=== PATIENT | male | born 1945 | race African-American/Black ===

== ENCOUNTER 2017-07-26 08:41 | Day surgery (SDC) | payer BC ==
[2017-07-25 14:42] VITALS: BMI 30.8
[2017-07-26 09:21] LABS: INR 1.18 (0.82-1.09); PROTHROMBIN TIME (PATIENT) 13.3 SEC (9.7-13.0)
[2017-07-26] MEDS ORDERED: LIDOCAINE HCL 1%, 10 MG/ML (20ML VIAL) PNB ONE (12:59)
--- NOTE | 2017-07-26 13:21 | OP ---
Operative Note - Note: Operative Date: 07/26/17 Pre-Operative Diagnosis: Steal syndrome right arm Operation: Ligation distal right radial artery Findings: Patent radial artery, reversed flow on Duplex Post-Operative Diagnosis: Same as Pre-op Surgeon: Olvin Cope Anesthesia: Local Estimated Blood Loss (mls): 10
--- NOTE | 2017-07-26 13:28 | HP ---
Satellite H - Chief Complaint Chief Complaint: Pain right fingers History of Present Illness: 72 year old man with ESRD on HD and a right radial- cephalic fistula has developed pain and numbnesds in fingers of the right hand. Duplex scan shows reversed flow in the distal radial artery with steal from the hand. History Source: Patient Limitations to Obtaining History: No Limitations - Past Medical History Allergies/Adverse Reactions: Allergies Allergy/AdvReac Type Severity Reaction Status Date / Time No Known Drug Allergies Allergy Verified 10/10/14 06:59 Cardiovascular: Yes: AFIB Renal/: Yes: Renal Failure, Hemodialysis Endocrine: Yes: Diabetes Mellitus - Current Medications Current Medications: Home Medications Medication Instructions Recorded Carvedilol 12.5 mg PO TID 12/10/13 Folic Acid/Mv,Fe,Min [Centrum 1 each PO DAILY 12/10/13 Multivitamin Tab Chew] Furosemide [Lasix -] 80 mg PO BID 12/10/13 Glucosamine Sulfate Dipot Chlr 1,000 mg PO DAILY 12/10/13 [Glucosamine] Isosorbide Dinitrate [Isordil -] 20 mg PO BID 12/10/13 Levothyroxine [Synthroid -] 75 mcg PO DAILY 12/10/13 Linagliptin [Tradjenta] 5 mg PO DAILY 12/10/13 Sennosides/Docusate Sodium [Stool 1 each PO DAILY 12/10/13 Softener Tablet] Valsartan [Diovan] 40 mg PO DAILY 12/10/13 Vitamin B Complex 1 each PO DAILY 12/10/13 Warfarin Sodium 5 mg PO HS 12/10/13 Satellite Physical Exam - Physical Examination Vital Signs: Vital Signs Period Temp Pulse Resp BP Sys/Yoon Pulse Ox Last 24 Hr 98.2 F-98.2 F 65-65 18-18 83-83/51-51 100 General Appearance: Well Nourished, Alert & Oriented x3 ENT: Clear Lung: Clear to auscultation Heart: Other (Irreg) Abdomen: Soft Extremities: No edema, Other (Right fingers cool and darkened.) Neurological: Intact Satellite Impression/Plan - Impression/Plan Impression: Vascular steal syndrome right hand. Operative Procedure: Ligation of right radial artery distal to AV fistula Date to be Performed: 07/26/17
--- NOTE | 2017-07-26 14:06 | OP ---
DATE OF OPERATION: 07/26/2017 SURGEON: Olvin Solares M.D. PROCEDURE: Ligation of distal right radial artery. PREOPERATIVE DIAGNOSIS: Vascular steal syndrome, right arm. POSTOPERATIVE DIAGNOSIS: Vascular steal syndrome, right arm. ANESTHESIA: Local. OPERATIVE FINDINGS: Patient has evidence of arterial steal from his AV fistula in the right arm with reverse flow in the distal radial artery. Ulnar artery was patent and was supplying blood to the right hand. OPERATIVE PROCEDURE: Following routine patient identification, side and site verification, the right arm and wrist were prepped with ChloraPrep. Lidocaine 1% was infiltrated over the distal radial artery between the hand and the AV fistula. A transverse incision was made and carried down the subcutaneous tissues using cautery for hemostasis. The radial artery was identified and carefully mobilized from the surrounding tissues. It was doubly ligated with 2-0 silk ties. The wound was then closed with interrupted suture of 3-0 Vicryl and running subcuticular suture of 4-0 Biosyn. A sterile dressing was applied and the patient was taken to ICU in stable condition. OLVIN SOLARES M.D. 1 [id number]
[2017-07-26 14:12] VITALS: BP 114/55; PULSE 67; TEMP 98.7
== END 2017-07-26 14:13 | disposition home or self-care (01) ==
LOC: JASU-SURG 08:41
PROVIDERS: ATTEND Surgery
PROC: 03LB0ZZ Occlusion of Right Radial Artery, Open Approach (ICD-10-PCS; principal; 2017-07-26 12:00)
DX: T82.898A Other specified complication of vascular prosthetic devices, implants and grafts, initial encounter (principal); N18.6 End stage renal disease; Z99.2 Dependence on renal dialysis
CPT/HCPCS: 36415; 85610

== ENCOUNTER 2017-08-10 12:26 | Inpatient (IN) | payer BC, OTHER ==
[2017-08-10] MEDS ORDERED: SODIUM CHLORIDE 500 ML IV ONE (12:55)
[2017-08-10] MEDS ORDERED: VANCOMYCIN 1,000 MG in DEXTROSE 5%-WATER - 250 ML IVPB ONE (12:56)
[2017-08-10] MEDS ORDERED: PIPERACILLIN/TAZOB 3.375 GM 3.375 GM in DEXTROSE 5%-WATER - 50 ML IVPB ONE (12:56)
--- NOTE | 2017-08-10 13:20 | PDOC ---
History of Present Illness - General History Source: Patient Exam Limitations: No Limitations - History of Present Illness Initial Comments: 08/10/17 14:17 The patient is a 72-year-old male with past medical history of CHF s/p L. chest wall pacemaker/AICD, DM w. neuropathy, HTN, PE, ESRD on HD w/ R. upper extremity fistula, [place], Colon CA and Afib presents to the emergency department from dialysis with low blood pressure. The patient presents from dialysis with a blood pressure of 74/41 accompanied with episodes of lightheadedness, nausea and nonbloody, nonbilious emesis. The patient reports secondary to the symptoms he was unable to complete his dialysis, states only the goal was 3 thousand and only 2.2 was taken. The patient reports associated concerned of R. toe abscess noticed yesterday states an increase in size since yesterday. The patient states a radiating throbbing pain that travels up to the knees, without drainage or bleeding. The patient reports multiple episodes of emesis since 3:30 am today, accompanied with increased chills and weakness. The patient states he required a heated chair and blankets during dialysis secondary to increased chills, relief noted with Tylenol. The patient reports a baseline of not producing much urination. Denies diaphoresis. Denies chest pain or palpitations. Denies diarrhea or constipation. Denies dysuria, hematuria , frequency or urgency to urinate. Denies abdominal or back pain. Allergies: NKDA Surgical history: Colon CA RX w/ chemo. AICD, Pacemaker, R. upper extremity AV fistula, and L. leg angioplasty (placed by Dr. Cope). Social history: Reports a history of cigarettes and alcohol use. Denies the use of recreational drugs. PCP/Nephrology: Shreyas Trevizo MD <Noemi Frankel - Last Filed: 08/10/17 14:23> <Mike Davila - Last Filed: 08/10/17 15:00> - General Chief Complaint: Blood Pressure Problem Stated Complaint: Blood Pressure Problem Time Seen by Provider: 08/10/17 12:38 Past History <Noemi Frankel - Last Filed: 08/10/17 14:23> - Past Medical History Anemia: No Asthma: Yes (HX SOB USES INHALER) Cancer: Yes (COLON CA) Cardiac Disorders: Yes ([place]) COPD: No (?) CHF: Yes Diabetes: Yes HTN: Yes Hypercholesterolemia: Yes Thyroid Disease: Yes (on dialysis ) - Surgical History Abdominal Surgery: Yes (SURGERY FOR COLON CA RX WITH CHEMO) - Immunization History Immunization Up to Date: Yes - Suicide/Smoking/Psychosocial Hx Smoking History: Never smoked Have you smoked in the past 12 months: No If you are a former smoker, when did you quit?: 1981 Information on smoking cessation initiated: No Hx Alcohol Use: No (quit 1981) Drug/Substance Use Hx: No (quit 1981) Substance Use Type: None Hx Substance Use Treatment: No <Mike Davila - Last Filed: 08/10/17 15:00> - Past Medical History Allergies/Adverse Reactions: Allergies Allergy/AdvReac Type Severity Reaction Status Date / Time No Known Drug Allergies Allergy Verified 08/10/17 13:01 Home Medications: Ambulatory Orders Carvedilol 12.5 mg PO TID 12/10/13 Folic Acid/Mv,Fe,Min [Centrum Multivitamin Tab Chew] 1 each PO DAILY 12/10/13 Furosemide [Lasix -] 80 mg PO BID 12/10/13 Glucosamine Sulfate Dipot Chlr [Glucosamine] 1,000 mg PO DAILY 12/10/13 Isosorbide Dinitrate [Isordil -] 20 mg PO BID 12/10/13 Levothyroxine [Synthroid -] 75 mcg PO DAILY 12/10/13 Linagliptin [Tradjenta] 5 mg PO DAILY 12/10/13 Sennosides/Docusate Sodium [Stool Softener Tablet] 1 each PO DAILY 12/10/13 Valsartan [Diovan] 40 mg PO DAILY 12/10/13 Vitamin B Complex 1 each PO DAILY 12/10/13 Warfarin Sodium 5 mg PO HS 12/10/13 Review of Systems - Review of Systems Constitutional: Yes: Chills, Fever Respiratory: No: Cough, Shortness of Breath Cardiac (ROS): Yes: Edema, Lightheadedness. No: Chest Pain, Syncope ABD/GI: Yes: Nausea, Vomiting. No: Constipated, Diarrhea Integumentary: Yes: See HPI Neurological: No: Headache All Other Systems: Reviewed and Negative <Mike Davila - Last Filed: 08/10/17 15:00> *Physical Exam - Vital Signs Last Vital Signs Temp Pulse Resp BP Pulse Ox 100.8 F H 65 16 117/107 98 08/10/17 13:43 08/10/17 13:43 08/10/17 13:43 08/10/17 13:43 08/10/17 13:43 - Physical Exam Comments: 08/10/17 13:55 GENERAL: The patient is awake, alert, and fully oriented, in no acute distress. HEAD: Normal with no signs of trauma. EYES: Pupils equal, round and reactive to light, extraocular movements intact, sclera anicteric, conjunctiva clear with no pallor. ENT: Ears normal, nares patent, oropharynx clear without exudates. Moist mucous membranes. NECK: Normal range of motion, supple without lymphadenopathy, JVD, or masses. LUNGS: Breath sounds equal, clear to auscultation bilaterally. No wheeze/ crackles. HEART: (+) L. chest wall pacemaker. Regular rate and rhythm, normal S1 and S2 without murmur or rub. ABDOMEN: Soft/nontender/nondistended. BS wnl. No guarding or rebound. No palpable masses. No hepatosplenomegaly. EXTREMITIES: (+) 1+ edema L. lower extremity.Scanned DP pulse and well perfused. 3 mm open wound R. 5th digits surrounding the soft swollen tissue, tender to palpate. No discharge or bleeding. R. lower extremity: Warm, well perfused. No crepitus. No tender along the sole of the foot. RLE 1 increased in size compared to the LLE. Warm tender to the knee. R. Upper extremity AV fistula with palpable thrill. Normal range of motion, no edema. No clubbing or cyanosis. No cords. NEUROLOGICAL: Cranial nerves II through XII grossly intact. Normal speech, normal gait. PSYCH: Normal mood, normal affect. SKIN: Warm, Dry, normal turgor, no rashes or lesions noted. <Noemi Frankel - Last Filed: 08/10/17 14:23> - Vital Signs Last Vital Signs Temp Pulse Resp BP Pulse Ox 98.0 F 64 16 96/62 96 08/10/17 13:03 08/10/17 13:03 08/10/17 13:03 08/10/17 13:03 08/10/17 13:03 <Mike Davila - Last Filed: 08/10/17 15:00> Heart Score/ECG Review #1 ECG reviewed & interpreted by me at: 12:38 08/10/17 13:15 v-paced at 67 with occasional PVC, no secondary sign of acute ischemic change #2 ECG reviewed & interpreted by me at: 13:19 08/10/17 13:23 v-paced at 66 with occasional PVC. <Mike Davila - Last Filed: 08/10/17 15:00> ED Treatment Course - LABORATORY CBC & Chemistry Diagram: 08/10/17 13:17 08/10/17 13:17 - ADDITIONAL ORDERS Additional order review: Laboratory Results 08/10/17 13:17 VBG pH 7.41 POC VBG pCO2 44.8 POC VBG pO2 32.9 Mixed VBG HCO3 27.8 H - Medications Given in the ED: ED Medications Discontinued Medications Generic Name Dose Route Start Last Admin Trade Name Freq PRN Reason Stop Dose Admin Acetaminophen 1,000 mg 08/10/17 13:35 08/10/17 13:41 Ofirmev Injection - IVPB 08/10/17 13:36 1,000 mg ONCE ONE Administration Sodium Chloride 500 mls @ 1,000 mls/hr 08/10/17 12:55 08/10/17 13:41 Normal Saline - IV 08/10/17 13:24 Not Given ONCE ONE Piperacillin Sod/Tazobactam 50 mls @ 100 mls/hr 08/10/17 12:56 08/10/17 13:41 Sod 3.375 gm/ Dextrose IVPB 08/10/17 13:25 100 mls/hr ONCE ONE Administration Protocol <Noemi Frankel - Last Filed: 08/10/17 14:23> - LABORATORY CBC & Chemistry Diagram: 08/10/17 13:17 08/10/17 13:17 - RADIOLOGY Radiology Studies Ordered: Category Date Time Status CHEST - PA [RAD] Stat Radiology 08/10/17 12:56 Ordered FOOT-RIGHT [RAD] Stat Radiology 08/10/17 12:56 Ordered DUPLEX VASCUL US-1 LEG [US] Stat Ultrasound 08/10/17 12:56 Ordered <Mike Davila - Last Filed: 08/10/17 15:00> Medical Decision Making - Medical Decision Making 08/10/17 13:15 A portion of this note was documented by scribe services under my direction. I have reviewed the details of the note, within reason, and agree with the documentation with the following case summary and management plan written by me. 72-year-old male end-stage renal disease on dialysis with peripheral vascular disease presents from dialysis with hypotension. 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 Yesterday , patient felt generally weak throughout the day and was sent home from work, during the night had episodes of nausea/vomiting and awoke this morning not feeling well. He went to dialysis experiencing chills and subjective fevers, he was two [address]irds of the way through dialysis when he became lightheaded and his blood pressure was noted to be 70 systolic so he was referred to the emergency department. Currently feeling a little better regarding the lightheadedness, denies any chest pain or other focal infectious symptoms. Blood pressure 85 systolic, heart rate regular. Afebrile. Heart and lungs are clear, abdomen benign Right lower extremity with open wound to the fifth digit with surrounding tenderness and soft tissue swelling, foot is otherwise warm and there is swelling to the knee with tenderness and erythema. 72-year-old male end-stage renal disease on dialysis with infected right lower extremity and foot wound. Chills concerning for bacteremia. sepsis protocol initiated iv fluid 500cc bolus iv abx R foot xray, RLE doppler admit 08/10/17 14:26 wbc 10, lactate 1.7, baseline Cr. bedside sono shows no evidence of DVT, + popliteal and distal arterial flow with notably very calcified vessels. Chem wnl (post HD), lactate negative. Awaiting xray, received abx. 08/10/17 14:58 Accepted for inpatient med/surg by Dr. Coffey, signout given to JOSE Vazquez. <Mike Davila - Last Filed: 08/10/17 15:00> *DC/Admit/Observation/Transfer <Noemi Frankel - Last Filed: 08/10/17 14:23> - Discharge Dispostion Decision to Admit order: Yes <Mike Davila - Last Filed: 08/10/17 15:00> Diagnosis at time of Disposition: Cellulitis of right lower extremity Open wound of foot Qualifiers: Encounter type: initial encounter Laterality: right Qualified Code(s): S91.301A - Unspecified open wound, right foot, initial encounter - Discharge Dispostion Condition at time of disposition: Fair
[2017-08-10] MEDS ORDERED: PIPERACILLIN/TAZOB 3.375 GM 3.375 GM/50 ML BAG IVPB ONE (13:29)
[2017-08-10] MEDS ORDERED: VANCOMYCIN 1 GRAM (PRE-DOCKED) 1,000 MG/250 ML BAG IVPB ONE (13:30)
[2017-08-10] MEDS ORDERED: ACETAMINOPHEN INJECTION 100 ML IVPB ONE (13:31)
[2017-08-10] MEDS ORDERED: ACETAMINOPHEN 1000 MG/100 ML VIAL (NON FORMULARY) IVPB ONE (13:35)
[2017-08-10 13:46] LABS: VENOUS PC02 44.8 mmHg (38-52); VENOUS PH 7.41 (7.32-7.42); VENOUS PO2 32.9 mmHg (28-48)
[2017-08-10 13:56] LABS: INR 1.35 (0.82-1.09); PROTHROMBIN TIME (PATIENT) 15.3 SEC (9.7-13.0)
[2017-08-10 13:58] LABS: ACTIVATED PTT 35.3 SECONDS (25.2-36.5)
[2017-08-10 14:07] LABS: ALK PHOS 115 U/L (45-117); ANION GAP 10 (8-16); BILIRUBIN,TOTAL 1.8 mg/dL (0.2-1.0); BLOOD UREA NITROGEN 27 mg/dL (7-18); CALCIUM 8.3 mg/dL (8.5-10.1); CHLORIDE 95 mmol/L (98-107); CO2 28 mmol/L (21-32); CREATININE 6.3 mg/dL (0.7-1.3); GLUCOSE,RANDOM 92 mg/dL (74-106); POTASSIUM 3.5 mmol/L (3.5-5.1); SGOT/AST 36 U/L (15-37); SGPT/ALT 13 U/L (12-78); SODIUM 133 mmol/L (136-145)
[2017-08-10 14:18] LABS: BASO % 0.4 % (0-2.0); EOS % 0.7 % (0-4.5); HEMATOCRIT 40.8 % (35.4-49); MCH 28.8 pg (25.7-33.7); MCHC 31.9 g/dl (32.0-35.9); MEAN CELL VOLUME 90.4 fl (80-96); MEAN PLT VOLUME 9.9 fl (7.5-11.1); MONO % 17.1 % (3.8-10.2); NEUT % 75.8 % (42.8-82.8); PLATELET COUNT 137 K/MM3 (134-434); RBC 4.52 M/mm3 (4.00-5.60); RDW 22.6 % (11.9-15.9); WHITE BLOOD COUNT 10.1 K/mm3 (4.0-10.0)
[2017-08-10] MEDS ORDERED: ONDANSETRON 4 MG/2 ML VIAL IVPUSH ONE (14:27)
[2017-08-10] MEDS ORDERED: ONDANSETRON 4 MG/2 ML VIAL ONE (14:35)
--- NOTE | 2017-08-10 16:19 | EKG ---
Test Reason : Blood Pressure : / mmHG Vent. Rate : 067 BPM Atrial Rate : 073 BPM P-R Int : 000 ms QRS Dur : 154 ms QT Int : 500 ms P-R-T Axes : 000 -60 123 degrees QTc Int : 528 ms Ventricular-paced rhythm WITH OCCASIONAL PREMATURE VENTRICULAR COMPLEXES Biventricular pacemaker detected ABNORMAL ECG NO PREVIOUS ECGS AVAILABLE Confirmed by WERO DU MD ([id number]) on 08/10/2017 4:19:06 PM Referred By: Confirmed By:WERO DU MD
--- NOTE | 2017-08-10 16:44 | HP ---
CHIEF COMPLAINT: right lower ext pain/wound, fever and chills today PCP: Shreyas Trevizo MD HISTORY OF PRESENT ILLNESS: Patient is a 72 year old male with a significant past medical history of congestive heart failure with left chest wlal pace maker/AICD, diabetes mellitus , with neuropathy, hypertension, PE, ESRD on HD (T,Th,Sat) via right upper arm fistula, [place], colon cancer and atrial fibrillation. Patient presents to the ED today from dialysis with a low blood pressure associated with chills during dialysis. His blood pressure dropped to 70s/40s during dialysis with nausea and vomiting. He was unable to finish dialsyis and only 2 liters instead of 3 were taken out. Patient reports a painful right fifth toe abscess that he notieced yesterday and that has increased in size. He attributes this abscess to ill fitting shoes. Patient denies chest pain or shortness of breath but has a non productive cough on exam. Lungs with mild congestion bilaterally. ER course was notable for: (1) vascular doppler, no dvt (2) chest xray - cardiomegaly, left sided PM/ICD (3) EKG vent paced with PVCs, biventricular pm (4) WBC 10.1 (5) Creat 6.3 (6) foot xray pending (7) INR 1.35 (8) wbc 10.1 Recent Travel: PAST MEDICAL HISTORY Colon CA RX w/ chemo. AICD, Pacemaker, R. upper extremity AV fistula, and L. leg angioplasty (placed by Dr. Cope). PAST SURGICAL HISTORY: Social History: Smoking: yes, hx Alcohol: denies Drugs: denies Family History: Allergies No Known Drug Allergies Allergy (Verified 08/10/17 13:01) HOME MEDICATIONS: Home Medications Medication Instructions Recorded Carvedilol 12.5 mg PO TID 12/10/13 Folic Acid/Mv,Fe,Min [Centrum 1 each PO DAILY 12/10/13 Multivitamin Tab Chew] Furosemide [Lasix -] 80 mg PO BID 12/10/13 Glucosamine Sulfate Dipot Chlr 1,000 mg PO DAILY 12/10/13 [Glucosamine] Isosorbide Dinitrate [Isordil -] 20 mg PO BID 12/10/13 Levothyroxine [Synthroid -] 75 mcg PO DAILY 12/10/13 Linagliptin [Tradjenta] 5 mg PO DAILY 12/10/13 Sennosides/Docusate Sodium [Stool 1 each PO DAILY 12/10/13 Softener Tablet] Valsartan [Diovan] 40 mg PO DAILY 12/10/13 Vitamin B Complex 1 each PO DAILY 12/10/13 Warfarin Sodium 5 mg PO HS 12/10/13 PHYSICAL EXAMINATION Vital Signs - 24 hr 08/10/17 08/10/17 08/10/17 12:30 13:03 13:43 Temperature 97.8 F 98.0 F 100.8 F H Pulse Rate 72 65 Pulse Rate [ 64 65 Left Apical] Respiratory 18 16 16 Rate Blood Pressure 94/64 117/107 Blood Pressure 96/62 117/107 [Left Arm] O2 Sat by Pulse 96 96 98 Oximetry (%) 08/10/17 08/10/17 14:41 16:28 Temperature 98.6 F Pulse Rate Pulse Rate [ 68 66 Left Apical] Respiratory 16 16 Rate Blood Pressure Blood Pressure 90/57 85/49 [Left Arm] O2 Sat by Pulse 98 98 Oximetry (%) GENERAL: Awake, alert, and fully oriented, in no acute distress. HEAD: Normal with no signs of trauma. EYES: Pupils equal, round and reactive to light, extraocular movements intact, sclera anicteric, conjunctiva clear. No lid lag. EARS, NOSE, THROAT: Ears normal, nares patent, oropharynx clear without exudates. Moist mucous membranes. NECK: Normal range of motion, supple without lymphadenopathy, JVD, or masses. LUNGS: Breath sounds equal, clear to auscultation bilaterally. No wheezes, and no crackles. No accessory muscle use. HEART: Regular rate and rhythm, normal S1 and S2 without murmur, rub or gallop. ABDOMEN: Soft, nontender, not distended, normoactive bowel sounds, no guarding, no rebound, no masses. No hepatomegaly or splenomegaly. MUSCULOSKELETAL: Normal range of motion at all joints. No bony deformities or tenderness. No CVA tenderness. UPPER EXTREMITIES: JED fistula with bruit and thrill LOWER EXTREMITIES: RLL with edema, from nair to foot. Negative for DVT NEUROLOGICAL: Normal speech. PSYCHIATRIC: Cooperative. Good eye contact. Appropriate mood and affect. Laboratory Results - last 24 hr 08/10/17 08/10/17 08/10/17 13:17 13:17 13:17 WBC 10.1 H RBC 4.52 Hgb 13.0 Hct 40.8 MCV 90.4 MCH 28.8 MCHC 31.9 L RDW 22.6 H Plt Count 137 MPV 9.9 Absolute Neuts (auto) 7.7 Neutrophils % 75.8 Lymphocytes % 6.0 L Monocytes % 17.1 H Eosinophils % 0.7 Basophils % 0.4 Nucleated RBC % 0 PT with INR 15.30 H INR 1.35 H PTT (Actin FS) 35.3 VBG pH 7.41 POC VBG pCO2 44.8 POC VBG pO2 32.9 Mixed VBG HCO3 27.8 H Sodium Potassium Chloride Carbon Dioxide Anion Gap BUN Creatinine Creat Clearance w eGFR Random Glucose Lactic Acid Calcium Total Bilirubin AST ALT Alkaline Phosphatase Troponin I Total Protein Albumin 08/10/17 08/10/17 13:17 13:30 WBC RBC Hgb Hct MCV MCH MCHC RDW Plt Count MPV Absolute Neuts (auto) Neutrophils % Lymphocytes % Monocytes % Eosinophils % Basophils % Nucleated RBC % PT with INR INR PTT (Actin FS) VBG pH POC VBG pCO2 POC VBG pO2 Mixed VBG HCO3 Sodium 133 L Potassium 3.5 Chloride 95 L Carbon Dioxide 28 Anion Gap 10 BUN 27 H Creatinine 6.3 H Creat Clearance w eGFR 8.81 Random Glucose 92 Lactic Acid 1.7 Calcium 8.3 L Total Bilirubin 1.8 H AST 36 ALT 13 Alkaline Phosphatase 115 Troponin I 0.04 Total Protein 8.0 Albumin 3.0 L ASSESSMENT/PLAN: Patient is a 72 year old male with a significant past medical history of congestive heart failure with left chest wall pace maker/AICD, diabetes mellitus , with neuropathy, hypertension, PE, ESRD on HD (T,Th,Sat) via right upper arm fistula, [place], colon cancer and atrial fibrillation. Patient presents to the ED today from dialysis with a low blood pressure associated with chills during dialysis. His blood pressure dropped to 70s/40s during dialysis with nausea and vomiting. He was unable to finish dialsyis and only 2 liters instead of 3 were taken out. Patient reports a painful right fifth toe abscess that he notieced yesterday and that has increased in size. He attributes this abscess to ill fitting shoes. Patient denies chest pain or shortness of breath but has a non productive cough on exam. Lungs with mild congestion bilaterally. ID: Sepsis likely secondary to right toe cellulitis vs pulmonary source Blood and urine cultures sent/pending No chest pain, not short of breath, + coughing Duonebs Started on Zosyn CHF Pacemaker/AICD Hypertension Afib Hypotensive on admission, hold cardiac meds Heparin drip for subtherapetic inr. initiate heparin drip with bridge to coumadin. 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, chronic Novolog, diabetic diet Pulm: PE history CT chest ordered, rule out PE with history of same. No chest pain, not tachycardic Echo ordered ESRD T,th,sat schedule Right arm fistula Renal consult Hospitalist Screening - Colonoscopy Questionnaire Colonoscopy Questionnaire: Colonoscopy Questionnaire
[2017-08-10] MEDS ORDERED: HEPARIN NA (PORCINE) 5,000 UNITS/ML 1ML VIAL IVPUSH PRN (17:28)
[2017-08-10] MEDS ORDERED: guaiFENesin/D-M SUGAR-FREE/ACLHOL-FREE 118 ML BOTTLE PO PRN (17:31)
[2017-08-10] MEDS: HEPARIN - 25,000 UNIT in SODIUM CHLORIDE 495 ML IV SCH (17:45)
[2017-08-10] MEDS ORDERED: HEPARIN NA (PORCINE) 5,000 UNITS/ML 1ML VIAL ONE (17:50)
[2017-08-10] MEDS ORDERED: HEPARIN INFUSION - 25,000 UNITS/500 ML INFUS.BAG IVPB ONE (17:50)
[2017-08-10] MEDS: HEPARIN NA (PORCINE) 5,000 UNITS/ML 1ML VIAL IVPUSH PRN (17:57)
--- NOTE | 2017-08-10 18:12 | CON.ID ---
Consult Consult Specialty:: infectious diseases Reason for Consultation:: rt foot infection - History of Present Illness Chief Complaint: rt foot pain,non healing wound History of Present Illness: 72 year old male with a significant past medical history of congestive heart failure with pace maker/AICD, diabetes mellitus, with neuropathy, hypertension , PE, ESRD on HD (T,Th,Sat) via right upper arm fistula, [place], colon cancer and atrial fibrillation. Patient came to the ED today from dialysis with a low blood pressure associated with chills during dialysis. His blood pressure dropped to 70s/40s during dialysis with nausea and vomiting. He was unable to finish dialsyis and only 2 liters instead of 3 were taken out. Patient reports a painful right fifth toe abscess that he noticed yesterday and that has increased in size. He attributes this abscess to ill fitting shoes. om further questioning patient mentions that this has been going on for a long time.currently patient says he feels better - History Source History Provided By: Patient Limitations to Obtaining History: No Limitations - Past Medical History Cardio/Vascular: Yes: AFIB Renal/: Yes: Renal Failure, Hemodialysis Endocrine: Yes: Diabetes Mellitus - Alcohol/Substance Use Hx Alcohol Use: No (quit 1981) - Smoking History Smoking history: Never smoked Have you smoked in the past 12 months: No If you are a former smoker, when did you quit?: 1981 Home Medications - Allergies Allergies/Adverse Reactions: Allergies Allergy/AdvReac Type Severity Reaction Status Date / Time No Known Drug Allergies Allergy Verified 08/10/17 13:01 - Home Medications Home Medications: Ambulatory Orders Carvedilol 12.5 mg PO TID 12/10/13 Folic Acid/Mv,Fe,Min [Centrum Multivitamin Tab Chew] 1 each PO DAILY 12/10/13 Furosemide [Lasix -] 80 mg PO BID 12/10/13 Glucosamine Sulfate Dipot Chlr [Glucosamine] 1,000 mg PO DAILY 12/10/13 Isosorbide Dinitrate [Isordil -] 20 mg PO BID 12/10/13 Levothyroxine [Synthroid -] 75 mcg PO DAILY 12/10/13 Linagliptin [Tradjenta] 5 mg PO DAILY 12/10/13 Sennosides/Docusate Sodium [Stool Softener Tablet] 1 each PO DAILY 12/10/13 Valsartan [Diovan] 40 mg PO DAILY 12/10/13 Vitamin B Complex 1 each PO DAILY 12/10/13 Warfarin Sodium 5 mg PO HS 12/10/13 Losartan Potassium 25 mg PO DAILY 08/11/17 Metoprolol Succinate [Toprol Xl] 12.5 mg PO DAILY 08/11/17 Review of Systems - Review of Systems Constitutional: reports: Chills Eyes: reports: No Symptoms HENT: reports: No Symptoms Neck: reports: No Symptoms Cardiovascular: reports: No Symptoms Respiratory: reports: No Symptoms Gastrointestinal: reports: No Symptoms Genitourinary: reports: No Symptoms Musculoskeletal: reports: Other Integumentary: reports: Erythema, Wound Neurological: reports: No Symptoms Endocrine: reports: No Symptoms Hematology/Lymphatic: reports: No Symptoms Psychiatric: reports: No Symptoms Physical Exam Vital Signs: Vital Signs Temperature 98.4 F 08/10/17 17:43 Pulse Rate 68 08/10/17 17:43 Respiratory Rate 16 08/10/17 17:43 Blood Pressure 90/53 08/10/17 17:43 O2 Sat by Pulse Oximetry (%) 96 08/10/17 17:43 Constitutional: Yes: Calm, Mild Distress Eyes: Yes: Conjunctiva Clear HENT: Yes: Atraumatic Neck: Yes: Supple, Trachea Midline Cardiovascular: Yes: Pulse Irregular Respiratory: Yes: Regular, CTA Bilaterally Gastrointestinal: Yes: Normal Bowel Sounds, Soft Musculoskeletal: Yes: Other Extremities: Yes: Erythema (rt foot), Other Integumentary: Yes: Erythema, Other Wound/Incision: Yes: Open to air, Draining Neurological: Yes: Alert, Oriented Psychiatric: Yes: Alert, Oriented Labs: CBC, BMP 08/10/17 13:17 08/10/17 13:17 Imaging - Results Chest X-ray: Report Reviewed, Image Reviewed X-ray: Report Reviewed, Image Reviewed Assessment/Plan patient coming in a type of sepsis picture i think his invection is coming from the wound itself he has multiple other issues Problem List - Problems (1) Atrial fibrillation Code(s): I48.91 - UNSPECIFIED ATRIAL FIBRILLATION Qualifiers: Atrial fibrillation type: unspecified Qualified Code(s): I48.91 - Unspecified atrial fibrillation (2) Cardiomyopathy Code(s): I42.9 - CARDIOMYOPATHY, UNSPECIFIED Qualifiers: Cardiomyopathy type: unspecified Qualified Code(s): I42.9 - Cardiomyopathy , unspecified (3) Cellulitis of right lower extremity Code(s): L03.115 - CELLULITIS OF RIGHT LOWER LIMB (4) ESRD (end stage renal disease) Code(s): N18.6 - END STAGE RENAL DISEASE (5) Hypotension Code(s): I95.9 - HYPOTENSION, UNSPECIFIED Qualifiers: Hypotension type: other hypotension type Qualified Code(s): I95.89 - Other hypotension (6) Hypothyroid Code(s): E03.9 - HYPOTHYROIDISM, UNSPECIFIED Qualifiers: Hypothyroidism type: unspecified Qualified Code(s): E03.9 - Hypothyroidism , unspecified (7) ICD (implantable cardioverter-defibrillator) in place Code(s): Z95.810 - PRESENCE OF AUTOMATIC (IMPLANTABLE) CARDIAC DEFIBRILLATOR (8) Open wound of foot Code(s): S91.309A - UNSPECIFIED OPEN WOUND, UNSPECIFIED FOOT, INITIAL ENCOUNTER Qualifiers: Encounter type: initial encounter Laterality: right Qualified Code(s): S91.301A - Unspecified open wound, right foot, initial encounter plan will start him on abx mri of the foot hydration rest continue current mgmt await for cx report
[2017-08-10] MEDS ORDERED: PIPERACILLIN/TAZOB 2.25 GM 2.25 GM in DEXTROSE 5%-WATER - 50 ML IVPB SCH (18:15)
[2017-08-10] MEDS ORDERED: MELATONIN 5 MG TABLETS PO PRN (20:54)
[2017-08-10] MEDS: INSULIN SLIDING SCALE (NOVOLOG) 1 VIAL SQ SCH (21:16)
[2017-08-10] MEDS: MORPHINE SULFATE 2 MG/ML VIAL IVPUSH PRN (21:29)
[2017-08-10] MEDS: WARFARIN NA 10 MG TABLET (FP) PO SCH (21:29)
[2017-08-11] MEDS ORDERED: PIPERACILLIN/TAZOBACTAM 2.25 GM VIAL IVPB ONE ×3 (00:08→19:52)
[2017-08-11] MEDS ORDERED: DEXTROSE 5%-WATER - 50 ML IVPB ONE ×3 (00:08→19:52)
[2017-08-11] MEDS ORDERED: PNEUMOC 13-VAL CONJ-DIP CRM/PF 0.5 ML DISP.SYRIN IM ONE (00:50)
[2017-08-11] MEDS: PIPERACILLIN/TAZOB 2.25 GM 2.25 GM in DEXTROSE 5%-WATER - 50 ML IVPB SCH ×5 (01:28→20:12)
[2017-08-11] MEDS ORDERED: PT OWN MED DRAWER 7, Y5N ONE (01:29)
[2017-08-11] MEDS: ACETAMINOPHEN 325 MG TABLET (FP) PO PRN ×4 (01:34→23:22)
[2017-08-11] MEDS: INSULIN SLIDING SCALE (NOVOLOG) 1 VIAL SQ SCH ×4 (06:25→21:51)
[2017-08-11] MEDS ORDERED: LEVOTHYROXINE NA 75 MCG TABLET (FP) PO SCH (07:30)
[2017-08-11 09:48] LABS: BASO % 0.6 % (0-2.0); EOS % 1.4 % (0-4.5); HEMOGLOBIN 11.9 GM/dL (11.7-16.9); LYMPH % 7.8 % (8-40); MCH 28.8 pg (25.7-33.7); MCHC 31.5 g/dl (32.0-35.9); MEAN CELL VOLUME 91.5 fl (80-96); MEAN PLT VOLUME 9.9 fl (7.5-11.1); MONO % 22.2 % (3.8-10.2); PLATELET COUNT 147 K/MM3 (134-434); RBC 4.15 M/mm3 (4.00-5.60); RDW 22.3 % (11.9-15.9); WHITE BLOOD COUNT 8.9 K/mm3 (4.0-10.0)
[2017-08-11 09:56] LABS: INR 1.48 (0.82-1.09); PROTHROMBIN TIME (PATIENT) 16.7 SEC (9.7-13.0)
[2017-08-11] MEDS ORDERED: FUROSEMIDE 40 MG TABLET (FP) PO SCH (10:00)
[2017-08-11 10:16] LABS: ALBUMIN 2.6 g/dl (3.4-5.0); ALK PHOS 104 U/L (45-117); ANION GAP 10 (8-16); BILIRUBIN,TOTAL 1.7 mg/dL (0.2-1.0); BLOOD UREA NITROGEN 41 mg/dL (7-18); CALCIUM 8.1 mg/dL (8.5-10.1); CHLORIDE 98 mmol/L (98-107); CO2 28 mmol/L (21-32); GLUCOSE,RANDOM 104 mg/dL (74-106); MAGNESIUM 2.4 mg/dL (1.8-2.4); POTASSIUM 4.1 mmol/L (3.5-5.1); SGOT/AST 35 U/L (15-37); SGPT/ALT 12 U/L (12-78); SODIUM 136 mmol/L (136-145); TOT PROT 7.3 g/dl (6.4-8.2)
--- NOTE | 2017-08-11 10:44 | PN ---
Physical Exam: SUBJECTIVE: Patient seen and examined at the bedside. Had chills overnight, no chest pain. Mild shortness of breath OBJECTIVE: Ct with moderate pericardial effusion Trops midly elevated Transfer to [facility], monitor on cardiac cath lab manager Cardiology consult, echo pending Vital Signs Period Temp Pulse Resp BP Sys/Yoon Pulse Ox Last 24 Hr 97.8 F-102.5 F 64-84 16-18 85-117/47-107 95-98 GENERAL: Awake, alert, and fully oriented, in no acute distress. HEAD: Normal with no signs of trauma. EYES: Pupils equal, round and reactive to light, extraocular movements intact, sclera anicteric, conjunctiva clear. No lid lag. EARS, NOSE, THROAT: Ears normal, nares patent, oropharynx clear without exudates. Moist mucous membranes. NECK: Normal range of motion, supple without lymphadenopathy, JVD, or masses. LUNGS: Breath sounds equal, clear to auscultation bilaterally. No wheezes, and no crackles. No accessory muscle use. HEART: Regular rate and rhythm, normal S1 and S2 without murmur, rub or gallop. ABDOMEN: Soft, nontender, not distended, normoactive bowel sounds, no guarding, no rebound, no masses. No hepatomegaly or splenomegaly. MUSCULOSKELETAL: Normal range of motion at all joints. No bony deformities or tenderness. No CVA tenderness. UPPER EXTREMITIES: JED fistula with bruit and thrill LOWER EXTREMITIES: RLL with edema, from nair to foot. Negative for DVT NEUROLOGICAL: Normal speech. PSYCHIATRIC: Cooperative. Good eye contact. Appropriate mood and affect. Laboratory Results - last 24 hr 08/10/17 08/10/17 08/10/17 13:17 13:17 13:17 WBC 10.1 H RBC 4.52 Hgb 13.0 Hct 40.8 MCV 90.4 MCH 28.8 MCHC 31.9 L RDW 22.6 H Plt Count 137 MPV 9.9 Absolute Neuts (auto) 7.7 Neutrophils % 75.8 Lymphocytes % 6.0 L Monocytes % 17.1 H Eosinophils % 0.7 Basophils % 0.4 Nucleated RBC % 0 PT with INR 15.30 H INR 1.35 H PTT (Actin FS) 35.3 VBG pH 7.41 POC VBG pCO2 44.8 POC VBG pO2 32.9 Mixed VBG HCO3 27.8 H Sodium Potassium Chloride Carbon Dioxide Anion Gap BUN Creatinine Creat Clearance w eGFR POC Glucometer Random Glucose Lactic Acid Calcium Magnesium Total Bilirubin AST ALT Alkaline Phosphatase Troponin I Total Protein Albumin 08/10/17 08/10/17 08/10/17 13:17 13:30 20:30 WBC RBC Hgb Hct MCV MCH MCHC RDW Plt Count MPV Absolute Neuts (auto) Neutrophils % Lymphocytes % Monocytes % Eosinophils % Basophils % Nucleated RBC % PT with INR INR PTT (Actin FS) VBG pH POC VBG pCO2 POC VBG pO2 Mixed VBG HCO3 Sodium 133 L Potassium 3.5 Chloride 95 L Carbon Dioxide 28 Anion Gap 10 BUN 27 H Creatinine 6.3 H Creat Clearance w eGFR 8.81 POC Glucometer Random Glucose 92 Lactic Acid 1.7 2.2 H* Calcium 8.3 L Magnesium Total Bilirubin 1.8 H AST 36 ALT 13 Alkaline Phosphatase 115 Troponin I 0.04 Total Protein 8.0 Albumin 3.0 L 08/10/17 08/10/17 08/10/17 20:30 20:30 20:57 WBC RBC Hgb Hct MCV MCH MCHC RDW Plt Count MPV Absolute Neuts (auto) Neutrophils % Lymphocytes % Monocytes % Eosinophils % Basophils % Nucleated RBC % PT with INR INR PTT (Actin FS) 62.4 H D VBG pH POC VBG pCO2 POC VBG pO2 Mixed VBG HCO3 Sodium Potassium Chloride Carbon Dioxide Anion Gap BUN Creatinine Creat Clearance w eGFR POC Glucometer 115 Random Glucose Lactic Acid Calcium Magnesium Total Bilirubin AST ALT Alkaline Phosphatase Troponin I 0.07 H D Total Protein Albumin 08/11/17 08/11/17 08/11/17 01:00 05:39 09:22 WBC RBC Hgb Hct MCV MCH MCHC RDW Plt Count MPV Absolute Neuts (auto) Neutrophils % Lymphocytes % Monocytes % Eosinophils % Basophils % Nucleated RBC % PT with INR INR PTT (Actin FS) VBG pH POC VBG pCO2 POC VBG pO2 Mixed VBG HCO3 Sodium Potassium Chloride Carbon Dioxide Anion Gap BUN Creatinine Creat Clearance w eGFR POC Glucometer 116 Random Glucose Lactic Acid Calcium Magnesium Total Bilirubin AST ALT Alkaline Phosphatase Troponin I 0.06 H Cancelled Total Protein Albumin 08/11/17 08/11/17 08/11/17 09:22 09:22 09:22 WBC 8.9 RBC 4.15 Hgb 11.9 Hct 38.0 MCV 91.5 MCH 28.8 MCHC 31.5 L RDW 22.3 H Plt Count 147 MPV 9.9 Absolute Neuts (auto) 6.0 Neutrophils % 68.0 Lymphocytes % 7.8 L D Monocytes % 22.2 H Eosinophils % 1.4 D Basophils % 0.6 Nucleated RBC % 0 PT with INR 16.70 H INR 1.48 H PTT (Actin FS) VBG pH POC VBG pCO2 POC VBG pO2 Mixed VBG HCO3 Sodium Potassium Chloride Carbon Dioxide Anion Gap BUN Creatinine Creat Clearance w eGFR POC Glucometer Random Glucose Lactic Acid 1.1 Calcium Magnesium Total Bilirubin AST ALT Alkaline Phosphatase Troponin I Total Protein Albumin 08/11/17 09:22 WBC RBC Hgb Hct MCV MCH MCHC RDW Plt Count MPV Absolute Neuts (auto) Neutrophils % Lymphocytes % Monocytes % Eosinophils % Basophils % Nucleated RBC % PT with INR INR PTT (Actin FS) VBG pH POC VBG pCO2 POC VBG pO2 Mixed VBG HCO3 Sodium 136 Potassium 4.1 Chloride 98 Carbon Dioxide 28 Anion Gap 10 BUN 41 H Creatinine Creat Clearance w eGFR 6.15 POC Glucometer Random Glucose 104 Lactic Acid Calcium 8.1 L Magnesium 2.4 Total Bilirubin 1.7 H AST 35 ALT 12 Alkaline Phosphatase 104 D Troponin I 0.09 H D Total Protein 7.3 Albumin 2.6 L Active Medications Generic Name Dose Route Start Last Admin Trade Name Freq PRN Reason Stop Dose Admin Acetaminophen 650 mg 08/10/17 17:31 08/11/17 09:32 Tylenol - PO 650 mg Q6H PRN Administration FEVER Carvedilol 12.5 mg 08/11/17 14:00 Coreg - PO TID VIRAJ Furosemide 80 mg 08/11/17 10:00 08/11/17 09:33 Lasix - PO Not Given BIDLASIX VIRAJ Guaifenesin 5 ml 08/10/17 17:31 08/11/17 00:59 Diabetic Tussin Dm - PO 5 ml Q6H PRN Administration COUGH Heparin Sodium (Porcine) 1,000 unit 08/10/17 17:28 Heparin - IVPUSH PRN PRN Heparin Heparin Sodium (Porcine) 5,000 unit 08/10/17 17:28 08/10/17 17:57 Heparin - IVPUSH 5,000 unit PRN PRN Administration Heparin Heparin Sodium (Porcine) 25, 500 mls @ 20 mls/hr 08/10/17 17:30 08/10/17 17: 45 000 unit/ Sodium Chloride IV 1,000 unit/hr TITR VIRAJ 20 mls/hr Administration Protocol 1,000 UNIT/HR Piperacillin Sod/Tazobactam 50 mls @ 100 mls/hr 08/11/17 02:00 08/11/17 09:33 Sod 2.25 gm/ Dextrose IVPB 100 mls/hr Q8H-IV VIRAJ Administration Protocol Insulin Aspart 1 vial 08/10/17 22:00 08/11/17 06:25 Novolog Vial Sliding Scale - SQ Not Given ACHS [facility] Protocol Levothyroxine Sodium 75 mcg 08/11/17 07:30 08/11/17 08:21 Synthroid - PO 75 mcg DAILY@0700 VIRAJ Administration Melatonin 5 mg 08/10/17 20:54 08/10/17 21:29 Melatonin PO 5 mg HS PRN Administration INSOMNIA Morphine Sulfate 1 mg 08/10/17 17:22 08/10/17 21:29 Morphine Sulfate IVPUSH 1 mg Q4H PRN Administration PAIN LEVEL 7 - 10 Warfarin Sodium 10 mg 08/10/17 18:00 08/10/17 21:29 Coumadin - PO 10 mg DAILY@1800 VIRAJ Administration ASSESSMENT/PLAN: Patient is a 72 year old male with a significant past medical history of congestive heart failure with left chest wall pace maker/AICD, diabetes mellitus , with neuropathy, hypertension, PE, ESRD on HD (T,Th,Sat) via right upper arm fistula, [place], colon cancer and atrial fibrillation. Patient presents to the ED from dialysis with a low blood pressure associated with chills during dialysis. His blood pressure dropped to 70s/40s during dialysis with nausea and vomiting. He was unable to finish dialsyis and only 2 liters instead of 3 were taken out. Patient reports a painful right fifth toe abscess that he notieced yesterday and that has increased in size. He attributes this abscess to ill fitting shoes. Patient denies chest pain or shortness of breath but has a non productive cough on exam. Lungs with mild congestion bilaterally. ID: Sepsis likely secondary to right toe cellulitis vs pulmonary source Blood and urine cultures sent/pending No chest pain, not short of breath, + coughing Duonebs Started on Zosyn. Clinday added today by ID. CT scan of lower right leg ordered to rule out abscess, osteo. Also having tenderness to right ankle. Ortho: Right ankle edema/tenderness Negative for DVT Ortho consulted, CT of lower ext ordered Cardiology: CHF Pacemaker/AICD Hypertension Afib Hypotensive on admission, hold cardiac meds Heparin drip for subtherapetic inr. initiate heparin drip with bridge to coumadin. Pericardial effusion on imaging Moderate Pericardial effusion/Elevated trops Cardiology following, monitor on tele 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, chronic Novolog, diabetic diet Pulm: PE history CT chest ordered, rule out PE with history of same. No chest pain, not tachycardic Echo ordered, pulmonary following Renal: ESRD T,th,sat schedule Right arm fistula No dialysis today as per renal. FEN tolerating PO monitor electrolytes diabetic diet Prophy Heparin to Coumadin
--- NOTE | 2017-08-11 10:59 | CONSULT ---
Consult Consult Specialty:: Nephrology Reason for Consultation:: ESRD - History of Present Illness Chief Complaint: sent in from HD with hypotension History of Present Illness: Pt is a 72 year old male with pmhx of ESRD, CHF, AICD, DM, HTN, PE, a-fib and colon cancer who was sent in from HD for hypotension. He is awake and alert. He is able to give history. He says that his blood pressure usually runs low in about the 90s. He denies chest pain. He does get SOB at times. He denies fevers but has had chills. He denies abdominal pain or diarrhea. He did have a few episodes of vomiting. He says he was light headed when his blood pressure was low in HD yesterday. It was about 74/41. He denies dysuria or hematuria. - History Source History Provided By: Patient, Medical Record - Past Medical History Cardio/Vascular: Yes: AFIB, HTN Renal/: Yes: Renal Failure, Hemodialysis Heme/Onc: Yes: Other (colon cancer) Endocrine: Yes: Diabetes Mellitus, Hypothyroidism - Past Surgical History Past Surgical History: Yes: AICD, AV Fistula/Graft - Alcohol/Substance Use Hx Alcohol Use: No (quit 1981) - Smoking History Smoking history: Former smoker Have you smoked in the past 12 months: No If you are a former smoker, when did you quit?: 1981 Home Medications - Allergies Allergies/Adverse Reactions: Allergies Allergy/AdvReac Type Severity Reaction Status Date / Time No Known Drug Allergies Allergy Verified 08/10/17 13:01 - Home Medications Home Medications: Ambulatory Orders Carvedilol 12.5 mg PO TID 12/10/13 Folic Acid/Mv,Fe,Min [Centrum Multivitamin Tab Chew] 1 each PO DAILY 12/10/13 Furosemide [Lasix -] 80 mg PO BID 12/10/13 Glucosamine Sulfate Dipot Chlr [Glucosamine] 1,000 mg PO DAILY 12/10/13 Isosorbide Dinitrate [Isordil -] 20 mg PO BID 12/10/13 Levothyroxine [Synthroid -] 75 mcg PO DAILY 12/10/13 Linagliptin [Tradjenta] 5 mg PO DAILY 12/10/13 Sennosides/Docusate Sodium [Stool Softener Tablet] 1 each PO DAILY 12/10/13 Valsartan [Diovan] 40 mg PO DAILY 12/10/13 Vitamin B Complex 1 each PO DAILY 12/10/13 Warfarin Sodium 5 mg PO HS 12/10/13 Losartan Potassium 25 mg PO DAILY 08/11/17 Metoprolol Succinate [Toprol Xl] 12.5 mg PO DAILY 08/11/17 Family Disease History - Family Disease History Family History: Denies Review of Systems - Review of Systems Constitutional: reports: Chills, Malaise Eyes: reports: No Symptoms HENT: reports: No Symptoms Neck: reports: No Symptoms Cardiovascular: reports: Edema Respiratory: reports: SOB on Exertion Gastrointestinal: reports: Vomiting Genitourinary: reports: No Symptoms Musculoskeletal: reports: No Symptoms Integumentary: reports: Erythema Neurological: reports: No Symptoms Endocrine: reports: No Symptoms Hematology/Lymphatic: reports: No Symptoms Psychiatric: reports: No Symptoms Physical Exam Vital Signs: Vital Signs Temperature 100.0 F H 08/11/17 05:44 Pulse Rate 65 08/11/17 05:44 Respiratory Rate 18 08/11/17 05:44 Blood Pressure 92/50 08/11/17 05:44 O2 Sat by Pulse Oximetry (%) 95 08/10/17 20:30 Constitutional: Yes: Calm Eyes: Yes: Conjunctiva Clear HENT: Yes: Atraumatic Neck: Yes: Supple Cardiovascular: Yes: S1, S2 Respiratory: Yes: On Nasal O2 Gastrointestinal: Yes: Soft Renal/: Yes: WNL Musculoskeletal: Yes: WNL Edema: Yes Edema: LLE: 1+, RLE: 1+ Neurological: Yes: Oriented Psychiatric: Yes: Oriented Labs: CBC, BMP 08/11/17 09:22 08/11/17 09:22 Laboratory Tests 08/10/17 08/10/17 08/11/17 13:17 13:17 09:22 WBC 10.1 H 8.9 Hgb 13.0 11.9 Sodium Potassium Chloride Carbon Dioxide Anion Gap BUN 27 H Creatinine 6.3 H 08/11/17 09:22 WBC Hgb Sodium 136 Potassium 4.1 Chloride 98 Carbon Dioxide 28 Anion Gap 10 BUN 41 H Creatinine Imaging - Results Chest X-ray: Report Reviewed Cat Scan: Report Reviewed Ultrasound: Report Reviewed Problem List - Problems (1) ESRD (end stage renal disease) Code(s): N18.6 - END STAGE RENAL DISEASE (2) Pericardial effusion Code(s): I31.3 - PERICARDIAL EFFUSION (NONINFLAMMATORY) (3) Hypotension Code(s): I95.9 - HYPOTENSION, UNSPECIFIED (4) Hypothyroid Code(s): E03.9 - HYPOTHYROIDISM, UNSPECIFIED (5) Atrial fibrillation Code(s): I48.91 - UNSPECIFIED ATRIAL FIBRILLATION (6) Open wound of foot Code(s): S91.309A - UNSPECIFIED OPEN WOUND, UNSPECIFIED FOOT, INITIAL ENCOUNTER Qualifiers: Encounter type: initial encounter Laterality: right Qualified Code(s): S91.301A - Unspecified open wound, right foot, initial encounter Assessment/Plan Current Medications Generic Name Dose Route Start Last Admin Trade Name Freq PRN Reason Stop Dose Admin Acetaminophen 650 mg 08/10/17 17:31 08/11/17 09:32 Tylenol - PO 650 mg Q6H PRN Administration FEVER Carvedilol 12.5 mg 08/11/17 14:00 Coreg - PO TID VIRAJ Furosemide 80 mg 08/11/17 10:00 08/11/17 09:33 Lasix - PO Not Given BIDLASIX VIRAJ Guaifenesin 5 ml 08/10/17 17:31 08/11/17 00:59 Diabetic Tussin Dm - PO 5 ml Q6H PRN Administration COUGH Heparin Sodium (Porcine) 1,000 unit 08/10/17 17:28 Heparin - IVPUSH PRN PRN Heparin Heparin Sodium (Porcine) 5,000 unit 08/10/17 17:28 08/10/17 17:57 Heparin - IVPUSH 5,000 unit PRN PRN Administration Heparin Heparin Sodium (Porcine) 25, 500 mls @ 20 mls/hr 08/10/17 17:30 08/10/17 17: 45 000 unit/ Sodium Chloride IV 1,000 unit/hr TITR VIRAJ 20 mls/hr Administration Protocol 1,000 UNIT/HR Piperacillin Sod/Tazobactam 50 mls @ 100 mls/hr 08/11/17 02:00 08/11/17 09:33 Sod 2.25 gm/ Dextrose IVPB 100 mls/hr Q8H-IV VIRAJ Administration Protocol Insulin Aspart 1 vial 08/10/17 22:00 08/11/17 06:25 Novolog Vial Sliding Scale - SQ Not Given ACHS VIRAJ Protocol Levothyroxine Sodium 75 mcg 08/11/17 07:30 08/11/17 08:21 Synthroid - PO 75 mcg DAILY@0700 VIRAJ Administration Melatonin 5 mg 08/10/17 20:54 08/10/17 21:29 Melatonin PO 5 mg HS PRN Administration INSOMNIA Morphine Sulfate 1 mg 08/10/17 17:22 08/10/17 21:29 Morphine Sulfate IVPUSH 1 mg Q4H PRN Administration PAIN LEVEL 7 - 10 Warfarin Sodium 10 mg 08/10/17 18:00 08/10/17 21:29 Coumadin - PO 10 mg DAILY@1800 VIRAJ Administration Impression 1. ESRD 2. pericardial effusion 3. pneumopericardium 4. hypothyroidism 5. a-fib 6. hypotension 7. hx of colon cancer 8. CHF 9. DM 10. hx of PE 11. CAD Plan - transfer pt to a monitored unit - get echo to evaluate effusion - cardiology/cts eval - monitor coags - will evaluate for HD tomorrow, will need to clarify cardiac status before volume removal is done on HD - discussed with medical team - follow cultures - hold lasix - agree with bolus - abx per ID - will follow Dr Conklin
[2017-08-11 11:33] LABS: ANISOCYTOSIS 2+; MACROCYTOSIS 1+; PLATELET ESTIMATE NORMAL; TARGET CELLS 1+; TEAR DROP CELLS 1+
--- NOTE | 2017-08-11 11:40 | CON.CARD ---
Consult Consult Specialty:: Cardiology Referred by:: Hospitalist Medicine Reason for Consultation:: Troponin leak - History of Present Illness Chief Complaint: Hypotension at HD History of Present Illness: Pt is a 72 year old male with pmhx of ESRD, cardiomyopathy s/p AICD, DM, HTN, PE , afib, PAD, hypothyroidism and colon cancer referred from HD for hypotension and chills w/o fever. He is awake and alert. He says that his blood pressure usually runs low in about the 90s. He denies chest pain reports at baseline dyspnea, denies palpitations, near or true syncope, orthopnea, PND or LE edema. - History Source History Provided By: Patient, Medical Record - Past Medical History Cardio/Vascular: Yes: AFIB, HTN Renal/: Yes: Renal Failure, Hemodialysis Heme/Onc: Yes: Other (colon cancer) Endocrine: Yes: Diabetes Mellitus, Hypothyroidism - Past Surgical History Past Surgical History: Yes: AICD, AV Fistula/Graft - Alcohol/Substance Use Hx Alcohol Use: No (quit 1981) - History Source History Provided By: Patient Limitations to Obtaining History: No Limitations - Past Medical History Cardio/Vascular: Yes: AFIB, CHF, HTN Renal/: Yes: Renal Failure, Hemodialysis Endocrine: Yes: Diabetes Mellitus, Hypothyroidism - Past Surgical History Past Surgical History: Yes: AICD, AV Fistula/Graft - Alcohol/Substance Use Hx Alcohol Use: No (quit 1981) - Smoking History Smoking history: Former smoker Have you smoked in the past 12 months: No If you are a former smoker, when did you quit?: 1981 Home Medications - Allergies Allergies/Adverse Reactions: Allergies Allergy/AdvReac Type Severity Reaction Status Date / Time No Known Drug Allergies Allergy Verified 08/10/17 13:01 - Home Medications Home Medications: Ambulatory Orders Carvedilol 12.5 mg PO TID 12/10/13 Folic Acid/Mv,Fe,Min [Centrum Multivitamin Tab Chew] 1 each PO DAILY 12/10/13 Furosemide [Lasix -] 80 mg PO BID 12/10/13 Glucosamine Sulfate Dipot Chlr [Glucosamine] 1,000 mg PO DAILY 12/10/13 Isosorbide Dinitrate [Isordil -] 20 mg PO BID 12/10/13 Levothyroxine [Synthroid -] 75 mcg PO DAILY 12/10/13 Linagliptin [Tradjenta] 5 mg PO DAILY 12/10/13 Sennosides/Docusate Sodium [Stool Softener Tablet] 1 each PO DAILY 12/10/13 Valsartan [Diovan] 40 mg PO DAILY 12/10/13 Vitamin B Complex 1 each PO DAILY 12/10/13 Warfarin Sodium 5 mg PO HS 12/10/13 Losartan Potassium 25 mg PO DAILY 08/11/17 Metoprolol Succinate [Toprol Xl] 12.5 mg PO DAILY 08/11/17 Review of Systems - Review of Systems Respiratory: reports: SOB Vital Signs: Vital Signs Temperature 98.6 F 08/11/17 10:00 Pulse Rate 66 08/11/17 10:00 Respiratory Rate 18 08/11/17 10:00 Blood Pressure 87/44 08/11/17 10:00 O2 Sat by Pulse Oximetry (%) 95 08/10/17 20:30 Constitutional: Yes: No Distress, Calm Neck: Yes: Supple Respiratory: Yes: Regular, Diminished, On Nasal O2 Gastrointestinal: Yes: Normal Bowel Sounds, Soft Cardiovascular: Yes: Regular Rate and Rhythm JVD: No Carotid Bruit: No Heart Sounds: Yes: S1, S2 Murmur: Yes: Systolic Murmur, Grade 1 Edema: No - Other Data Labs, Other Data: CBC, BMP 08/11/17 09:22 08/11/17 09:22 INR, PTT INR 1.48 (0.82-1.09) H 08/11/17 09:22 Troponin, BNP 08/10/17 08/10/17 08/11/17 13:17 20:30 01:00 Troponin I 0.04 0.07 H D 0.06 H 08/11/17 08/11/17 09:22 09:22 Troponin I Cancelled 0.09 H D Troponin, BNP 08/10/17 08/10/17 08/11/17 13:17 20:30 01:00 Troponin I 0.04 0.07 H D 0.06 H 08/11/17 08/11/17 09:22 09:22 Troponin I Cancelled 0.09 H D Afib biventricular pacing @ 67 PVC Ejection Fraction %: LVEF < 40 % Imaging - Results Cat Scan: Report Reviewed (08/10/[address]: Cardiomegaly with moderate pericardial effusion and small amount of pneumopericardium) Problem List - Problems (1) Cardiomyopathy Code(s): I42.9 - CARDIOMYOPATHY, UNSPECIFIED Qualifiers: Cardiomyopathy type: unspecified Qualified Code(s): I42.9 - Cardiomyopathy , unspecified (2) ICD (implantable cardioverter-defibrillator) in place Code(s): Z95.810 - PRESENCE OF AUTOMATIC (IMPLANTABLE) CARDIAC DEFIBRILLATOR (3) Atrial fibrillation Code(s): I48.91 - UNSPECIFIED ATRIAL FIBRILLATION Qualifiers: Atrial fibrillation type: unspecified Qualified Code(s): I48.91 - Unspecified atrial fibrillation (4) Cellulitis of right lower extremity Code(s): L03.115 - CELLULITIS OF RIGHT LOWER LIMB (5) ESRD (end stage renal disease) Code(s): N18.6 - END STAGE RENAL DISEASE (6) Hypotension Code(s): I95.9 - HYPOTENSION, UNSPECIFIED Qualifiers: Hypotension type: other hypotension type Qualified Code(s): I95.89 - Other hypotension (7) Hypothyroid Code(s): E03.9 - HYPOTHYROIDISM, UNSPECIFIED Qualifiers: Hypothyroidism type: unspecified Qualified Code(s): E03.9 - Hypothyroidism , unspecified (8) Pericardial effusion Code(s): I31.3 - PERICARDIAL EFFUSION (NONINFLAMMATORY) Assessment/Plan 01/19/2016 Echo: Mild LV dilatation, mild cLVH, LVEF 15-20%, diastolic dysfunction, severe LAE, mod NEGRO, mild AR, MR, TR, IA RVSP 52 mmHg, small pericardial effusion 11/11/2016 Lexiscan: Large KS involving apex, inferior wall, inferolateral small area mild periinfarct ischemia mid anterior wall, dilated severly decreased LVEF 26, RV dilated 1. Ischemic dilated cardiomyopathy s/p ICD 2. ESRD on HD T, TH, Sat RUE AVF 3. Pericardial effusion with pneumopericardium ? uremic pericarditis 4. Hypothyroidism 5. Persistent afib 6. hypotension r/o sepsis right toe abscess source 7. hx of colon cancer 8. DM 9. hx of PE 10. CAD s/p KS, angina pectoris 11. DM c/b neuropathy 12. Persistent afib with subtherapeutic INR 13. Trops referable to demand ischemia Plan 1. Empiric abx per C&S 2. F/u echo to assess pericardial effusion 3. HD as hemodynamics tolerate, hold Lasix 4. A/c with caution given pericardial effusion 5. Check TSH, trend trops to document peak 6. Hold Toprol, Losartan, Isordil pending hemodynamic stability 7. Thank you for consultative opportunity, patient saw Dr. Jayjay Karimi at [facility] 06/23/2017 pre-renal transplant eval, outpt records reviewed, usually sees Dr. Ghassan Durant.
[2017-08-11 11:55] LABS: CREATININE 8.6 mg/dL (0.7-1.3)
[2017-08-11] MEDS: MORPHINE SULFATE 2 MG/ML VIAL IVPUSH PRN ×2 (12:44→22:22)
--- NOTE | 2017-08-11 13:53 | PN ---
Progress Note, Physician History of Present Illness: patient looking septic chills i am worried if the patient is becoming septic - Current Medication List Current Medications: Active Medications Acetaminophen (Tylenol -) 650 mg PO Q6H PRN PRN Reason: FEVER Last Admin: 08/11/17 09:32 Dose: 650 mg Carvedilol (Coreg -) 12.5 mg PO BID [facility] Guaifenesin (Diabetic Tussin Dm -) 5 ml PO Q6H PRN PRN Reason: COUGH Last Admin: 08/11/17 00:59 Dose: 5 ml Heparin Sodium (Porcine) (Heparin -) 1,000 unit IVPUSH PRN PRN PRN Reason: Heparin Last Admin: 08/11/17 11:24 Dose: 1,000 unit Heparin Sodium (Porcine) (Heparin -) 5,000 unit IVPUSH PRN PRN PRN Reason: Heparin Last Admin: 08/10/17 17:57 Dose: 5,000 unit Heparin Sodium (Porcine) 25, (000 unit/ Sodium Chloride) 500 mls @ 20 mls/hr IV TITR [facility]; Protocol Last Titration: 08/11/17 11:24 Dose: 1,100 unit/hr, 22 mls/hr Piperacillin Sod/Tazobactam (Sod 2.25 gm/ Dextrose) 50 mls @ 100 mls/hr IVPB Q8H-IV [facility]; Protocol Last Admin: 08/11/17 09:33 Dose: 100 mls/hr Insulin Aspart (Novolog Vial Sliding Scale -) 1 vial SQ ACHS [facility]; Protocol Last Admin: 08/11/17 11:47 Dose: Not Given Levothyroxine Sodium (Synthroid -) 75 mcg PO DAILY@0700 [facility] Last Admin: 08/11/17 08:21 Dose: 75 mcg Melatonin (Melatonin) 5 mg PO HS PRN PRN Reason: INSOMNIA Last Admin: 08/10/17 21:29 Dose: 5 mg Morphine Sulfate (Morphine Sulfate) 1 mg IVPUSH Q4H PRN PRN Reason: PAIN LEVEL 7 - 10 Last Admin: 08/11/17 12:44 Dose: 1 mg Warfarin Sodium (Coumadin -) 10 mg PO DAILY@1800 [facility] Last Admin: 08/10/17 21:29 Dose: 10 mg - Objective Vital Signs: Vital Signs Temperature 98.6 F 08/11/17 10:00 Pulse Rate 68 08/11/17 13:25 Respiratory Rate 20 08/11/17 13:25 Blood Pressure 85/51 08/11/17 13:25 O2 Sat by Pulse Oximetry (%) 100 08/11/17 09:00 Constitutional: Yes: No Distress, Calm HENT: Yes: Atraumatic, Normocephalic Cardiovascular: Yes: Pulse Irregular, S1, S2 Respiratory: Yes: Regular, On Nasal O2, Poor Air Entry Gastrointestinal: Yes: Normal Bowel Sounds, Soft Musculoskeletal: Yes: WNL Extremities: Yes: Other Integumentary: Yes: Other Wound/Incision: Yes: Draining Neurological: Yes: Alert, Oriented Psychiatric: Yes: Alert, Oriented Labs: CBC, BMP 08/11/17 09:22 08/11/17 09:22 INR, PTT INR 1.48 (0.82-1.09) H 08/11/17 09:22 Assessment/Plan patient coming in a type of sepsis picture i think his invection is coming from the wound itself he has multiple other issues Problem List - Problems (1) Atrial fibrillation Code(s): I48.91 - UNSPECIFIED ATRIAL FIBRILLATION Qualifiers: Atrial fibrillation type: unspecified Qualified Code(s): I48.91 - Unspecified atrial fibrillation (2) Cardiomyopathy Code(s): I42.9 - CARDIOMYOPATHY, UNSPECIFIED Qualifiers: Cardiomyopathy type: unspecified Qualified Code(s): I42.9 - Cardiomyopathy , unspecified (3) Cellulitis of right lower extremity Code(s): L03.115 - CELLULITIS OF RIGHT LOWER LIMB (4) ESRD (end stage renal disease) Code(s): N18.6 - END STAGE RENAL DISEASE (5) Hypotension Code(s): I95.9 - HYPOTENSION, UNSPECIFIED Qualifiers: Hypotension type: other hypotension type Qualified Code(s): I95.89 - Other hypotension (6) Hypothyroid Code(s): E03.9 - HYPOTHYROIDISM, UNSPECIFIED Qualifiers: Hypothyroidism type: unspecified Qualified Code(s): E03.9 - Hypothyroidism , unspecified (7) ICD (implantable cardioverter-defibrillator) in place Code(s): Z95.810 - PRESENCE OF AUTOMATIC (IMPLANTABLE) CARDIAC DEFIBRILLATOR (8) Open wound of foot Code(s): S91.309A - UNSPECIFIED OPEN WOUND, UNSPECIFIED FOOT, INITIAL ENCOUNTER Qualifiers: Encounter type: initial encounter Laterality: right Qualified Code(s): S91.301A - Unspecified open wound, right foot, initial encounter plan continue abx will add clinda awaiting for cx reports from the wound mri not possible to get a ct scan of the foot podiatry consult blood cx negative close watch
[2017-08-11] MEDS ORDERED: CARVEDILOL 25 MG TABLET (FP) PO SCH ×2 (14:00)
--- NOTE | 2017-08-11 15:05 | PN ---
Progress Note, Physician - Current Medication List Current Medications: Active Medications Acetaminophen (Tylenol -) 650 mg PO Q6H PRN PRN Reason: FEVER Last Admin: 08/11/17 09:32 Dose: 650 mg Carvedilol (Coreg -) 12.5 mg PO BID [facility] Guaifenesin (Diabetic Tussin Dm -) 5 ml PO Q6H PRN PRN Reason: COUGH Last Admin: 08/11/17 00:59 Dose: 5 ml Heparin Sodium (Porcine) (Heparin -) 1,000 unit IVPUSH PRN PRN PRN Reason: Heparin Last Admin: 08/11/17 11:24 Dose: 1,000 unit Heparin Sodium (Porcine) (Heparin -) 5,000 unit IVPUSH PRN PRN PRN Reason: Heparin Last Admin: 08/10/17 17:57 Dose: 5,000 unit Heparin Sodium (Porcine) 25, (000 unit/ Sodium Chloride) 500 mls @ 20 mls/hr IV TITR [facility]; Protocol Last Titration: 08/11/17 11:24 Dose: 1,100 unit/hr, 22 mls/hr Piperacillin Sod/Tazobactam (Sod 2.25 gm/ Dextrose) 50 mls @ 100 mls/hr IVPB Q8H-IV [facility]; Protocol Last Admin: 08/11/17 09:33 Dose: 100 mls/hr Insulin Aspart (Novolog Vial Sliding Scale -) 1 vial SQ ACHS [facility]; Protocol Last Admin: 08/11/17 11:47 Dose: Not Given Levothyroxine Sodium (Synthroid -) 75 mcg PO DAILY@0700 [facility] Last Admin: 08/11/17 08:21 Dose: 75 mcg Melatonin (Melatonin) 5 mg PO HS PRN PRN Reason: INSOMNIA Last Admin: 08/10/17 21:29 Dose: 5 mg Morphine Sulfate (Morphine Sulfate) 1 mg IVPUSH Q4H PRN PRN Reason: PAIN LEVEL 7 - 10 Last Admin: 08/11/17 12:44 Dose: 1 mg Warfarin Sodium (Coumadin -) 10 mg PO DAILY@1800 [facility] Last Admin: 08/10/17 21:29 Dose: 10 mg - Objective Vital Signs: Vital Signs Temperature 98.6 F 08/11/17 10:00 Pulse Rate 68 08/11/17 13:25 Respiratory Rate 20 08/11/17 13:25 Blood Pressure 85/51 08/11/17 13:25 O2 Sat by Pulse Oximetry (%) 100 08/11/17 09:00 Labs: CBC, BMP 08/11/17 09:22 08/11/17 09:22 INR, PTT INR 1.48 (0.82-1.09) H 08/11/17 09:22
[2017-08-11] MEDS ORDERED: MORPHINE SULFATE 2 MG/ML VIAL IVPUSH ONE (15:24)
--- NOTE | 2017-08-11 16:21 | CON.PULM ---
Consult Consult Specialty:: PULMONARY Referred by:: JOSE J Reason for Consultation:: H/O PE. CHRONIC COUGH - History of Present Illness Chief Complaint: CHRONIC COUGH History of Present Illness: 72 AA MALE ESRD/AVF/HD TRANSFERRED TO ER DURING HD DUE TO HYPOTENSION AND PRE- SYNCOPAL SX. PATIENT COMPLAINING OF SEVERE RIGHT ANKLE/FOOT PAIN WITH RIGHT 5TH LATERAL META TARSAL ULCERATION WITH DRAINAGE. - History Source History Provided By: Patient, Medical Record Limitations to Obtaining History: Poor Historian - Past Medical History [employer]IVE: Yes: Peripheral Neuropathy Cardio/Vascular: Yes: AFIB, CHF, HTN, Other (LVD SEVERE) Pulmonary: Yes: COPD, Pulmonary Embolus Gastrointestinal: Yes: Cancer (COLON), Other (PATIENT STATES HE WAS RESECTED AND RECEIVED CHEMOTX AND RT AT [facility]) Renal/: Yes: Renal Failure, Hemodialysis Heme/Onc: Yes: Anemia Musculoskeletal: Yes: Other (RIGHT ANKLE/FOOT PAIN 10/10 WITH RIGHT LATERAL METATARSAL ULCER W DRAINAGE) Endocrine: Yes: Diabetes Mellitus, Hypothyroidism - Past Surgical History Past Surgical History: Yes: AICD, AV Fistula/Graft - Alcohol/Substance Use Hx Alcohol Use: No (quit 1981) - Smoking History Smoking history: Former smoker Have you smoked in the past 12 months: No If you are a former smoker, when did you quit?: 1981 - Social History Place of : [facility] History of Recent Travel: No Home Medications - Allergies Allergies/Adverse Reactions: Allergies Allergy/AdvReac Type Severity Reaction Status Date / Time No Known Drug Allergies Allergy Verified 08/10/17 13:01 - Home Medications Home Medications: Ambulatory Orders Carvedilol 12.5 mg PO TID 12/10/13 Folic Acid/Mv,Fe,Min [Centrum Multivitamin Tab Chew] 1 each PO DAILY 12/10/13 Furosemide [Lasix -] 80 mg PO BID 12/10/13 Glucosamine Sulfate Dipot Chlr [Glucosamine] 1,000 mg PO DAILY 12/10/13 Isosorbide Dinitrate [Isordil -] 20 mg PO BID 12/10/13 Levothyroxine [Synthroid -] 75 mcg PO DAILY 12/10/13 Linagliptin [Tradjenta] 5 mg PO DAILY 12/10/13 Sennosides/Docusate Sodium [Stool Softener Tablet] 1 each PO DAILY 12/10/13 Valsartan [Diovan] 40 mg PO DAILY 12/10/13 Vitamin B Complex 1 each PO DAILY 12/10/13 Warfarin Sodium 5 mg PO HS 12/10/13 Losartan Potassium 25 mg PO DAILY 08/11/17 Metoprolol Succinate [Toprol Xl] 12.5 mg PO DAILY 08/11/17 Family Disease History - Family Disease History Family History: Unremarkable Review of Systems - Review of Systems Constitutional: reports: Chills, Diaphoresis, Fever, Lethargy, Loss of Appetite , Night Sweats, Unintentional Wgt. Loss, Weakness Eyes: denies: Blind Spots HENT: denies: Difficult Swallowing Neck: denies: Decreased ROM Cardiovascular: denies: Chest Pain Respiratory: reports: Cough. denies: Hemoptysis Gastrointestinal: denies: Abdominal Pain Genitourinary: denies: Burning Integumentary: reports: Wound Neurological: reports: No Symptoms, Weakness Physical Exam Vital Sings: Vital Signs Temperature 98.6 F 08/11/17 10:00 Pulse Rate 68 08/11/17 13:25 Respiratory Rate 20 08/11/17 13:25 Blood Pressure 85/51 08/11/17 13:25 O2 Sat by Pulse Oximetry (%) 100 08/11/17 09:00 Constitutional: Yes: Anxious Eyes: Yes: EOM Intact HENT: Yes: Normocephalic Neck: Yes: Trachea Midline Cardiovascular: Yes: S1, S2, Other (PACED) Respiratory: Yes: CTA Bilaterally Gastrointestinal: Yes: Normal Bowel Sounds Extremities: Yes: Other (PAINFUL SWOLLEN RIGHT ANKLE/FOOT WITH RIGHT LATERAL 5TH METATARSAL ULCER) Labs: CBC, BMP 08/11/17 09:22 08/11/17 09:22 Imaging - Results Chest X-ray: Report Reviewed, Image Reviewed Cat Scan: Report Reviewed, Image Reviewed Ultrasound: Report Reviewed EKG: Report Reviewed Other: Report Reviewed Problem List - Problems (1) Atrial fibrillation Code(s): I48.91 - UNSPECIFIED ATRIAL FIBRILLATION Qualifiers: Atrial fibrillation type: unspecified Qualified Code(s): I48.91 - Unspecified atrial fibrillation (2) Cardiomyopathy Code(s): I42.9 - CARDIOMYOPATHY, UNSPECIFIED Qualifiers: Cardiomyopathy type: unspecified Qualified Code(s): I42.9 - Cardiomyopathy , unspecified (3) Cellulitis of right lower extremity Code(s): L03.115 - CELLULITIS OF RIGHT LOWER LIMB (4) ESRD (end stage renal disease) Code(s): N18.6 - END STAGE RENAL DISEASE (5) Hypotension Code(s): I95.9 - HYPOTENSION, UNSPECIFIED Qualifiers: Hypotension type: other hypotension type Qualified Code(s): I95.89 - Other hypotension (6) Hypothyroid Code(s): E03.9 - HYPOTHYROIDISM, UNSPECIFIED Qualifiers: Hypothyroidism type: unspecified Qualified Code(s): E03.9 - Hypothyroidism , unspecified (7) ICD (implantable cardioverter-defibrillator) in place Code(s): Z95.810 - PRESENCE OF AUTOMATIC (IMPLANTABLE) CARDIAC DEFIBRILLATOR (8) Open wound of foot Code(s): S91.309A - UNSPECIFIED OPEN WOUND, UNSPECIFIED FOOT, INITIAL ENCOUNTER Qualifiers: Encounter type: initial encounter Laterality: right Qualified Code(s): S91.301A - Unspecified open wound, right foot, initial encounter Assessment/Plan NO ACUTE LUNG PATHOLOGY AT THIS POINT ESRD/HD DM/HTN/THYROID DISEASE LVD/AICD/AF H/O COLON CANCER DIABETIC NEUROPATHY/DIABETIC FOOT ULCER PAINFUL ANKLE MAY BE RELATED TO ULCER BUT MORE LIKELY ACUTE FLARE OF ?GOUT O2/BRONCHODILATORS PRN ANTI COAGULATION IMAGE RIGHT ANKLE CHECK ESR/CRP/URIC ACID ABS MAS PER ID CHECK CULTURES CONSIDER TRIAL OF MEDROL TO REDUCE RIGHT ANKLE INFLAMMATION Dann FRENCH MD
--- NOTE | 2017-08-11 16:59 | PN ---
Progress Note (short form) - Note Progress Note: Surgery We have been asked to evaluate patient for Right 5th toe ulcer/ LE cellulitis. The patient states he began to develop fever/chills and pain in the right LE ankle and foot @ 3 days ago. He has had a wound on the right 5th toe for some time that has been getting progressively worse. Patient states the pain in his ankle and leg is extreme when pressure applied. He states that he has a history of gout. Vital Signs Temp 98.6 F 08/11/17 10:00 Pulse 68 08/11/17 13:25 Resp 20 08/11/17 13:25 BP 85/51 08/11/17 13:25 Pulse Ox 100 08/11/17 09:00 Intake & Output 08/10/17 08/11/17 08/11/17 23:59 11:59 23:59 Intake Total 300 500 10 Balance 300 500 10 Weight 190 lb 3.2 oz 203 lb Intake: IV 20 250 10 Heparin - 25,000 Unit In 240 Normal Saline - 495 ml @ 1,000 UNIT/HR 20 mls/hr IV TITR [facility] Rx#: [id number] Saline Lock 20 10 10 IVPB 100 50 Oral 180 200 Other: Voiding Method Toilet Toilet # Unmeasured Voids Void 1 Bowel Movement No Height 5 ft 9 in Body Mass Index (BMI) 28.0 Weight Measurement Method Standing Scale Chair Scale Weight Measurement Method Est/Stated by Patient CBC, BMP 08/11/17 09:22 08/11/17 09:22 PE: A&Ox3, NAD unlabored resp on RA Right LE with diffuse edema and warm to touch. Exquisitely tender to palpation throughout, compartments soft, and supple with diffuse tenderness throughout. Right ankle with moderated effusion and extremely tender to palpation, unable to range 2/2 pain. Right 5th toe with small ulcer, well circumscribed with clean boarders, non foul smelling and no active d/c with +1 DP pulse. Left LE Compartments soft supple and non-tender foot and toes warm to touch. Doppler of Right LE no evidence of DVT. Problem List - Problems (1) Diabetic foot ulcer Assessment/Plan: Patient with ESRD diabetic ulcer of right 5th toe, cellulitis and ankle effusion. Foot warm and well perfused. 1) xeroform and dry dressing to right 5th toe 2) continue IV ABX per ID 3) consider ortho consult and further imaging of ankle r/o gout vs septic joint- spoke to medicine 4) light compression for Right LE with sheridan and elevation 5) f/u scan of foot to r/o osteomyelitis 6) f/u podiatry consult Code(s): E11.621 - TYPE 2 DIABETES MELLITUS WITH FOOT ULCER; L97.509 - NON- PRESSURE CHRONIC ULCER OTH PRT UNSP FOOT W UNSP SEVERITY
[2017-08-11] MEDS: CLINDAMYCIN 600MG PREMIX IVPB 600 MG/50 ML BAG IVPB SCH ×2 (17:04→17:05)
[2017-08-11] MEDS: HEPARIN - 25,000 UNIT in SODIUM CHLORIDE 495 ML IV SCH ×2 (17:04→21:45)
[2017-08-11] MEDS: WARFARIN NA 10 MG TABLET (FP) PO SCH (17:05)
--- NOTE | 2017-08-11 17:30 | PN ---
Physical Exam: SUBJECTIVE: Patient seen and examined OBJECTIVE: Vital Signs Period Temp Pulse Resp BP Sys/Yoon Pulse Ox Last 24 Hr 98.4 F-102.5 F 65-84 16-20 85-103/44-56 95-100 GENERAL: The patient is awake, alert, and fully oriented, in no acute distress. HEAD: Normal with no signs of trauma. EYES: PERRL, extraocular movements intact, sclera anicteric, conjunctiva clear. No ptosis. ENT: Ears normal, nares patent, oropharynx clear without exudates, moist mucous membranes. NECK: Trachea midline, full range of motion, supple. LUNGS: Breath sounds equal, clear to auscultation bilaterally, no wheezes, no crackles, no accessory muscle use. HEART: Regular rate and rhythm, S1, S2 without murmur, rub or gallop. ABDOMEN: Soft, nontender, nondistended, normoactive bowel sounds, no guarding, no rebound, no hepatosplenomegaly, no masses. EXTREMITIES: 2+ pulses, warm, well-perfused, no edema. NEUROLOGICAL: Cranial nerves II through XII grossly intact. Normal speech, gait not observed. PSYCH: Normal mood, normal affect. SKIN: Warm, dry, normal turgor, no rashes or lesions noted Laboratory Results - last 24 hr 08/10/17 08/10/17 08/10/17 20:30 20:30 20:30 WBC RBC Hgb Hct MCV MCH MCHC RDW Plt Count MPV Absolute Neuts (auto) Neutrophils % Neutrophils % (Manual) Band Neutrophils % Lymphocytes % Lymphocytes % (Manual) Monocytes % Monocytes % (Manual) Eosinophils % Eosinophils % (Manual) Basophils % Basophils % (Manual) Myelocytes % (Man) Promyelocytes % (Man) Blast Cells % (Manual) Nucleated RBC % Metamyelocytes Platelet Estimate Anisocytosis Microcytosis Macrocytosis Target Cells Tear Drop Cells Schistocytes PT with INR INR PTT (Actin FS) 62.4 H D Sodium Potassium Chloride Carbon Dioxide Anion Gap BUN Creatinine Creat Clearance w eGFR POC Glucometer Random Glucose Lactic Acid 2.2 H* Calcium Magnesium Total Bilirubin AST ALT Alkaline Phosphatase Troponin I 0.07 H D Total Protein Albumin 08/10/17 08/11/17 08/11/17 20:57 01:00 05:39 WBC RBC Hgb Hct MCV MCH MCHC RDW Plt Count MPV Absolute Neuts (auto) Neutrophils % Neutrophils % (Manual) Band Neutrophils % Lymphocytes % Lymphocytes % (Manual) Monocytes % Monocytes % (Manual) Eosinophils % Eosinophils % (Manual) Basophils % Basophils % (Manual) Myelocytes % (Man) Promyelocytes % (Man) Blast Cells % (Manual) Nucleated RBC % Metamyelocytes Platelet Estimate Anisocytosis Microcytosis Macrocytosis Target Cells Tear Drop Cells Schistocytes PT with INR INR PTT (Actin FS) Sodium Potassium Chloride Carbon Dioxide Anion Gap BUN Creatinine Creat Clearance w eGFR POC Glucometer 115 116 Random Glucose Lactic Acid Calcium Magnesium Total Bilirubin AST ALT Alkaline Phosphatase Troponin I 0.06 H Total Protein Albumin 08/11/17 08/11/17 08/11/17 09:22 09:22 09:22 WBC 8.9 RBC 4.15 Hgb 11.9 Hct 38.0 MCV 91.5 MCH 28.8 MCHC 31.5 L RDW 22.3 H Plt Count 147 MPV 9.9 Absolute Neuts (auto) 6.0 Neutrophils % 68.0 Neutrophils % (Manual) 64.3 Band Neutrophils % 0.0 Lymphocytes % 7.8 L D Lymphocytes % (Manual) 3.0 L Monocytes % 22.2 H Monocytes % (Manual) 30 H Eosinophils % 1.4 D Eosinophils % (Manual) 2.0 Basophils % 0.6 Basophils % (Manual) 0.0 Myelocytes % (Man) 0 Promyelocytes % (Man) 0 Blast Cells % (Manual) 0 Nucleated RBC % 0 Metamyelocytes 0 Platelet Estimate Normal Anisocytosis 2+ Microcytosis 1+ Macrocytosis 1+ Target Cells 1+ Tear Drop Cells 1+ Schistocytes 1+ PT with INR INR PTT (Actin FS) Sodium Potassium Chloride Carbon Dioxide Anion Gap BUN Creatinine Creat Clearance w eGFR POC Glucometer Random Glucose Lactic Acid 1.1 Calcium Magnesium Total Bilirubin AST ALT Alkaline Phosphatase Troponin I Cancelled Total Protein Albumin 08/11/17 08/11/17 08/11/17 09:22 09:22 09:22 WBC RBC Hgb Hct MCV MCH MCHC RDW Plt Count MPV Absolute Neuts (auto) Neutrophils % Neutrophils % (Manual) Band Neutrophils % Lymphocytes % Lymphocytes % (Manual) Monocytes % Monocytes % (Manual) Eosinophils % Eosinophils % (Manual) Basophils % Basophils % (Manual) Myelocytes % (Man) Promyelocytes % (Man) Blast Cells % (Manual) Nucleated RBC % Metamyelocytes Platelet Estimate Anisocytosis Microcytosis Macrocytosis Target Cells Tear Drop Cells Schistocytes PT with INR 16.70 H INR 1.48 H PTT (Actin FS) 41.1 H D Sodium 136 Potassium 4.1 Chloride 98 Carbon Dioxide 28 Anion Gap 10 BUN 41 H Creatinine 8.6 H* Creat Clearance w eGFR 6.15 POC Glucometer Random Glucose 104 Lactic Acid Calcium 8.1 L Magnesium 2.4 Total Bilirubin 1.7 H AST 35 ALT 12 Alkaline Phosphatase 104 D Troponin I 0.09 H D Total Protein 7.3 Albumin 2.6 L 08/11/17 08/11/17 11:43 16:58 WBC RBC Hgb Hct MCV MCH MCHC RDW Plt Count MPV Absolute Neuts (auto) Neutrophils % Neutrophils % (Manual) Band Neutrophils % Lymphocytes % Lymphocytes % (Manual) Monocytes % Monocytes % (Manual) Eosinophils % Eosinophils % (Manual) Basophils % Basophils % (Manual) Myelocytes % (Man) Promyelocytes % (Man) Blast Cells % (Manual) Nucleated RBC % Metamyelocytes Platelet Estimate Anisocytosis Microcytosis Macrocytosis Target Cells Tear Drop Cells Schistocytes PT with INR INR PTT (Actin FS) Sodium Potassium Chloride Carbon Dioxide Anion Gap BUN Creatinine Creat Clearance w eGFR POC Glucometer 102 108 Random Glucose Lactic Acid Calcium Magnesium Total Bilirubin AST ALT Alkaline Phosphatase Troponin I Total Protein Albumin Active Medications Generic Name Dose Route Start Last Admin Trade Name Freq PRN Reason Stop Dose Admin Acetaminophen 650 mg 08/10/17 17:31 08/11/17 16:54 Tylenol - PO 650 mg Q6H PRN Administration FEVER Carvedilol 12.5 mg 08/11/17 22:00 Coreg - PO BID [facility] Guaifenesin 5 ml 08/10/17 17:31 08/11/17 00:59 Diabetic Tussin Dm - PO 5 ml Q6H PRN Administration COUGH Heparin Sodium (Porcine) 1,000 unit 08/10/17 17:28 08/11/17 11:24 Heparin - IVPUSH 1,000 unit PRN PRN Administration Heparin Heparin Sodium (Porcine) 5,000 unit 08/10/17 17:28 08/10/17 17:57 Heparin - IVPUSH 5,000 unit PRN PRN Administration Heparin Heparin Sodium (Porcine) 25, 500 mls @ 20 mls/hr 08/10/17 17:30 08/11/17 17: 04 000 unit/ Sodium Chloride IV 1,100 unit/hr TITR [facility] 22 mls/hr Administration Protocol 1,000 UNIT/HR Piperacillin Sod/Tazobactam 50 mls @ 100 mls/hr 08/11/17 02:00 08/11/17 17:09 Sod 2.25 gm/ Dextrose IVPB Not Given Q8H-IV [facility] Protocol Clindamycin Phosphate 600 mg in 50 mls @ 100 mls/hr 08/11/17 15:15 08/11/17 17:05 Cleocin 600 Mg Premix Ivpb - IVPB Not Given Q8H-IV [facility] Protocol Insulin Aspart 1 vial 08/10/17 22:00 08/11/17 17:04 Novolog Vial Sliding Scale - SQ Not Given ACHS [facility] Protocol Levothyroxine Sodium 75 mcg 08/11/17 07:30 08/11/17 08:21 Synthroid - PO 75 mcg DAILY@0700 [facility] Administration Melatonin 5 mg 08/10/17 20:54 08/10/17 21:29 Melatonin PO 5 mg HS PRN Administration INSOMNIA Morphine Sulfate 2 mg 08/11/17 15:24 Morphine Sulfate IVPUSH Q4H PRN PAIN LEVEL 7 - 10 Warfarin Sodium 10 mg 08/10/17 18:00 08/11/17 17:05 Coumadin - PO 10 mg DAILY@1800 [facility] Administration ASSESSMENT/PLAN:
[2017-08-11] MEDS ORDERED: SODIUM CHLORIDE 250 ML IV STA (17:56)
--- NOTE | 2017-08-11 19:48 | CONSULT ---
Consult - History of Present Illness History of Present Illness: 72 yo man DM PAD with non-healing wound right 5th toe. I saw him last week in my office. He then developed increased pain and swelling in toe and ankle. Arterial Doppler study showed intact distal flow to foot in 3 tibial vessels with arterial calcifications. - Past Medical History [employer]ICATOR: Yes: Peripheral Neuropathy Cardio/Vascular: Yes: AFIB, CHF, HTN, Other (LVD SEVERE) Pulmonary: Yes: COPD, Pulmonary Embolus Gastrointestinal: Yes: Cancer (COLON), Other (PATIENT STATES HE WAS RESECTED AND RECEIVED CHEMOTX AND RT AT [facility]) Renal/: Yes: Renal Failure, Hemodialysis Musculoskeletal: Yes: Other (RIGHT ANKLE/FOOT PAIN 11/22 WITH RIGHT LATERAL METATARSAL ULCER W DRAINAGE) Endocrine: Yes: Diabetes Mellitus, Hypothyroidism - Past Surgical History Past Surgical History: Yes: AICD, AV Fistula/Graft - Alcohol/Substance Use Hx Alcohol Use: No (quit 1981) - Smoking History Smoking history: Former smoker Have you smoked in the past 12 months: No If you are a former smoker, when did you quit?: 1981 - Social History History of Recent Travel: No Home Medications - Allergies Allergies/Adverse Reactions: Allergies Allergy/AdvReac Type Severity Reaction Status Date / Time No Known Drug Allergies Allergy Verified 08/10/17 13:01 - Home Medications Home Medications: Ambulatory Orders Carvedilol 12.5 mg PO TID 12/10/13 Folic Acid/Mv,Fe,Min [Centrum Multivitamin Tab Chew] 1 each PO DAILY 12/10/13 Furosemide [Lasix -] 80 mg PO BID 12/10/13 Glucosamine Sulfate Dipot Chlr [Glucosamine] 1,000 mg PO DAILY 12/10/13 Isosorbide Dinitrate [Isordil -] 20 mg PO BID 12/10/13 Levothyroxine [Synthroid -] 75 mcg PO DAILY 12/10/13 Linagliptin [Tradjenta] 5 mg PO DAILY 12/10/13 Sennosides/Docusate Sodium [Stool Softener Tablet] 1 each PO DAILY 12/10/13 Valsartan [Diovan] 40 mg PO DAILY 12/10/13 Vitamin B Complex 1 each PO DAILY 12/10/13 Warfarin Sodium 5 mg PO HS 12/10/13 Losartan Potassium 25 mg PO DAILY 08/11/17 Metoprolol Succinate [Toprol Xl] 12.5 mg PO DAILY 08/11/17 Physical Exam Vital Signs: Vital Signs Temperature 98.6 F 08/11/17 10:00 Pulse Rate 68 08/11/17 13:25 Respiratory Rate 20 08/11/17 13:25 Blood Pressure 85/51 08/11/17 13:25 O2 Sat by Pulse Oximetry (%) 100 08/11/17 09:00 Extremities: Yes: Other (Small linear wound on dorsum of right 5th toe, local tenderness and pedal edema) Peripheral Pulses WNL: No (No palpable pedal pulses) Labs: CBC, BMP 08/11/17 09:22 08/11/17 09:22 Problem List - Problems (1) Open wound of foot Assessment/Plan: X-ray shows fracture of middle phalanx right 5th toe. In the setting of the open wound a finn infection is likely. Rec ID follow-up, consider MRI for osteomyelitis work-up Vascular status is adequate for healing. Code(s): S91.309A - UNSPECIFIED OPEN WOUND, UNSPECIFIED FOOT, INITIAL ENCOUNTER Qualifiers: Encounter type: subsequent encounter Laterality: right Qualified Code(s) : S91.301D - Unspecified open wound, right foot, subsequent encounter
[2017-08-11] MEDS: HEPARIN SOD,PORK IN 0.45% NACL 25,000 UNITS/500 ML INFUS.BAG IVPB SCH (21:45)
[2017-08-11] MEDS: HEPARIN NA (PORCINE) 5,000 UNITS/ML 1ML VIAL IVPUSH PRN (21:45)
[2017-08-11] MEDS: MUPIROCIN 2% TOPICAL OINTMENT 22 GM TUBE TP SCH (21:46)
[2017-08-11] MEDS: CARVEDILOL 12.5 MG TABLET (FP) PO SCH (21:46)
[2017-08-11] MEDS ORDERED: HEPARIN NA (PORCINE) 5,000 UNITS/ML 1ML VIAL IVPUSH PRN ×4 (23:29)
[2017-08-11] MEDS ORDERED: guaiFENesin/D-M SUGAR-FREE/ACLHOL-FREE 118 ML BOTTLE PO PRN (23:29)
[2017-08-11] MEDS ORDERED: MELATONIN 5 MG TABLETS PO PRN (23:29)
[2017-08-12] MEDS ORDERED: DEXTROSE 5%-WATER - 50 ML IVPB ONE ×2 (00:05→14:28)
[2017-08-12] MEDS ORDERED: PIPERACILLIN/TAZOBACTAM 2.25 GM VIAL IVPB ONE ×2 (00:05→14:28)
[2017-08-12] MEDS: CLINDAMYCIN 600MG PREMIX IVPB 600 MG/50 ML BAG IVPB SCH ×3 (00:59→17:41)
[2017-08-12] MEDS: PIPERACILLIN/TAZOB 2.25 GM 2.25 GM in DEXTROSE 5%-WATER - 50 ML IVPB SCH ×3 (00:59→17:42)
[2017-08-12] MEDS: MORPHINE SULFATE 2 MG/ML VIAL IVPUSH PRN ×4 (02:24→23:20)
[2017-08-12] MEDS: ACETAMINOPHEN 325 MG TABLET (FP) PO PRN ×2 (06:38→20:31)
[2017-08-12] MEDS: LEVOTHYROXINE NA 75 MCG TABLET (FP) PO SCH (06:38)
[2017-08-12] MEDS: INSULIN SLIDING SCALE (NOVOLOG) 1 VIAL SQ SCH ×3 (06:54→22:40)
[2017-08-12 08:30] LABS: URIC ACID 4.2 mg/dL (2.6-7.2)
--- NOTE | 2017-08-12 09:04 | CONSULT ---
Consult - text type - Consultation Consultation Note: Patient is a diabetic who was being treated outpatient for an infection of his right foot. States he had an episode of chills and fever last week. Patient states his pain has improved since admission. vss, Tmax 99.7 vsgi, +drainage 5th toe, +tender sub met 5 and 4, +cellulitis, +edema, xray reviewed, awaiting ct confirmation of om, Wound culture pending, wbc improved to 8.9 om? abscess? Awaiting wound culture. Awaiting CT reading. Discussed with ID. Read and appreciated vascular note. Santyl wound dressing daily. May consider I&D if does not improve with possible amputation of toe. will follow.
[2017-08-12 09:08] LABS: BASO % 0.5 % (0-2.0); EOS % 1.3 % (0-4.5); HEMATOCRIT 36.6 % (35.4-49); HEMOGLOBIN 11.7 GM/dL (11.7-16.9); LYMPH % 7.1 % (8-40); MCH 29.2 pg (25.7-33.7); MEAN CELL VOLUME 91.2 fl (80-96); MEAN PLT VOLUME 9.9 fl (7.5-11.1); NEUT % 69.1 % (42.8-82.8); PLATELET COUNT 153 K/MM3 (134-434); RBC 4.01 M/mm3 (4.00-5.60); RDW 21.6 % (11.9-15.9); WHITE BLOOD COUNT 9.7 K/mm3 (4.0-10.0)
--- NOTE | 2017-08-12 09:15 | CON.ORTH ---
Consult Reason for Consultation:: right foot pain - Past Medical History POLICE AIDE: Yes: Peripheral Neuropathy Cardio/Vascular: Yes: AFIB, CHF, HTN, Other (LVD SEVERE) Pulmonary: Yes: COPD, Pulmonary Embolus Gastrointestinal: Yes: Cancer (COLON), Other (PATIENT STATES HE WAS RESECTED AND RECEIVED CHEMOTX AND RT AT [facility]) Renal/: Yes: Renal Failure, Hemodialysis Musculoskeletal: Yes: Other (RIGHT ANKLE/FOOT PAIN 11/22 WITH RIGHT LATERAL METATARSAL ULCER W DRAINAGE) Endocrine: Yes: Diabetes Mellitus, Hypothyroidism - Past Surgical History Past Surgical History: Yes: AICD, AV Fistula/Graft - Alcohol/Substance Use Hx Alcohol Use: No (quit 1981) - Smoking History Smoking history: Former smoker Have you smoked in the past 12 months: No If you are a former smoker, when did you quit?: 1981 - Social History History of Recent Travel: No Home Medications - Allergies Allergies/Adverse Reactions: Allergies Allergy/AdvReac Type Severity Reaction Status Date / Time No Known Drug Allergies Allergy Verified 08/10/17 13:01 - Home Medications Home Medications: Ambulatory Orders Carvedilol 12.5 mg PO TID 12/10/13 Folic Acid/Mv,Fe,Min [Centrum Multivitamin Tab Chew] 1 each PO DAILY 12/10/13 Furosemide [Lasix -] 80 mg PO BID 12/10/13 Glucosamine Sulfate Dipot Chlr [Glucosamine] 1,000 mg PO DAILY 12/10/13 Isosorbide Dinitrate [Isordil -] 20 mg PO BID 12/10/13 Levothyroxine [Synthroid -] 75 mcg PO DAILY 12/10/13 Linagliptin [Tradjenta] 5 mg PO DAILY 12/10/13 Sennosides/Docusate Sodium [Stool Softener Tablet] 1 each PO DAILY 12/10/13 Valsartan [Diovan] 40 mg PO DAILY 12/10/13 Vitamin B Complex 1 each PO DAILY 12/10/13 Warfarin Sodium 5 mg PO HS 12/10/13 Losartan Potassium 25 mg PO DAILY 08/11/17 Metoprolol Succinate [Toprol Xl] 12.5 mg PO DAILY 08/11/17 Physical Exam for Ortho Vital Signs: Vital Signs Temperature 99.7 F H 08/12/17 05:50 Pulse Rate 67 08/12/17 05:50 Respiratory Rate 17 08/12/17 05:50 Blood Pressure 96/51 08/12/17 05:50 O2 Sat by Pulse Oximetry (%) 100 08/11/17 21:00 Labs: INR, PTT INR 1.48 (0.82-1.09) H 08/11/17 09:22 - Lower Extremity Foot: Yes: Right, Limited ROM, Pain, Swelling, Tenderness, Other (+ ulceration over 5ht phalanx) Imaging - Results X-ray: Report Reviewed, Image Reviewed Assessment/Plan 72 year old male with pmhx of ESRD, cardiomyopathy s/p AICD, DM, HTN, PE, afib, PAD, hypothyroidism and colon cancer referred from HD for hypotension and chills w/o fever. c/o right foot pain or past 3 weeks. Has been seeing Dr. Cope as outpt. a/p- Right 5th toe osteo with bone destruction, cellulitis Vascular f/u regarding treatment Abx as per ID elevation No orthopaedic intervention d/w Dr. Christy
[2017-08-12 09:18] LABS: CHLORIDE 95 mmol/L (98-107); POTASSIUM 4.3 mmol/L (3.5-5.1); SODIUM 134 mmol/L (136-145)
[2017-08-12 09:26] LABS: ALBUMIN 2.5 g/dl (3.4-5.0); ALK PHOS 91 U/L (45-117); ANION GAP 12 (8-16); BILIRUBIN,TOTAL 1.7 mg/dL (0.2-1.0); BLOOD UREA NITROGEN 51 mg/dL (7-18); CALCIUM 8.5 mg/dL (8.5-10.1); CO2 27 mmol/L (21-32); GLUCOSE,RANDOM 75 mg/dL (74-106); MAGNESIUM 2.4 mg/dL (1.8-2.4); SGOT/AST 35 U/L (15-37); SGPT/ALT 16 U/L (12-78); TOT PROT 7.6 g/dl (6.4-8.2)
[2017-08-12 09:29] LABS: CREATININE 10.1 mg/dL (0.7-1.3)
[2017-08-12] MEDS: CARVEDILOL 12.5 MG TABLET (FP) PO SCH (10:39)
[2017-08-12] MEDS: MUPIROCIN 2% TOPICAL OINTMENT 22 GM TUBE TP SCH ×2 (10:39→22:45)
--- NOTE | 2017-08-12 11:10 | PN ---
Progress Note, Physician History of Present Illness: doing much better no chills says he is feeling much better - Current Medication List Current Medications: Active Medications Acetaminophen (Tylenol -) 650 mg PO Q6H PRN PRN Reason: FEVER Last Admin: 08/12/17 06:38 Dose: 650 mg Carvedilol (Coreg -) 12.5 mg PO BID VIRAJ Last Admin: 08/12/17 10:39 Dose: Not Given Collagenase (Santyl -) 1 applic TP DAILY [facility]; Protocol Guaifenesin (Diabetic Tussin Dm -) 5 ml PO Q6H PRN PRN Reason: COUGH Heparin Sodium (Porcine) (Heparin -) 1,000 unit IVPUSH PRN PRN PRN Reason: Heparin Heparin Sodium (Porcine) (Heparin -) 5,000 unit IVPUSH PRN PRN PRN Reason: Heparin Clindamycin Phosphate (Cleocin 600 Mg Premix Ivpb -) 600 mg in 50 mls @ 100 mls /hr IVPB Q8H-IV [facility]; Protocol Last Admin: 08/12/17 00:59 Dose: 100 mls/hr HEPARIN SOD,PORK IN 0.45% NACL (Heparin-1/2ns 25,000 Units/500) 25,000 units in 500 mls @ 20 mls/hr IVPB TITR [facility]IR[facility]; Protocol Last Admin: 08/11/17 21:45 Dose: 1,250 unit/hr, 25 mls/hr Piperacillin Sod/Tazobactam (Sod 2.25 gm/ Dextrose) 50 mls @ 100 mls/hr IVPB Q8H-IV [facility]; Protocol Last Admin: 08/12/17 00:59 Dose: 100 mls/hr Insulin Aspart (Novolog Vial Sliding Scale -) 1 vial SQ ACHS [facility]; Protocol Last Admin: 08/12/17 06:54 Dose: Not Given Levothyroxine Sodium (Synthroid -) 75 mcg PO DAILY@0700 [facility] Last Admin: 08/12/17 06:38 Dose: 75 mcg Melatonin (Melatonin) 5 mg PO HS PRN PRN Reason: INSOMNIA Last Admin: 08/12/17 02:24 Dose: 5 mg Morphine Sulfate (Morphine Sulfate) 2 mg IVPUSH Q4H PRN PRN Reason: PAIN LEVEL 7 - 10 Last Admin: 08/12/17 06:38 Dose: 2 mg Mupirocin (Bactroban 2% Ointment -) 1 applic TP BID [facility] Last Admin: 08/12/17 10:39 Dose: Not Given Warfarin Sodium (Coumadin -) 10 mg PO DAILY@1800 [facility] - Objective Vital Signs: Vital Signs Temperature 99.7 F H 08/12/17 05:50 Pulse Rate 67 08/12/17 05:50 Respiratory Rate 17 08/12/17 05:50 Blood Pressure 96/51 08/12/17 05:50 O2 Sat by Pulse Oximetry (%) 100 08/11/17 21:00 Constitutional: Yes: No Distress, Calm Cardiovascular: Yes: Regular Rate and Rhythm Respiratory: Yes: Regular, CTA Bilaterally Gastrointestinal: Yes: Normal Bowel Sounds, Soft Musculoskeletal: Yes: WNL Extremities: Yes: Other Integumentary: Yes: Erythema (improving) Wound/Incision: Yes: Open to air, Other (no draiange) Neurological: Yes: Alert, Oriented Psychiatric: Yes: Alert, Oriented Labs: CBC, BMP 08/12/17 06:00 08/12/17 06:00 INR, PTT INR 1.48 (0.82-1.09) H 08/11/17 09:22 Assessment/Plan patient coming in a type of sepsis picture i think his invection is coming from the wound itself he has multiple other issues Problem List - Problems (1) Atrial fibrillation Code(s): I48.91 - UNSPECIFIED ATRIAL FIBRILLATION Qualifiers: Atrial fibrillation type: unspecified Qualified Code(s): I48.91 - Unspecified atrial fibrillation (2) Cardiomyopathy Code(s): I42.9 - CARDIOMYOPATHY, UNSPECIFIED Qualifiers: Cardiomyopathy type: unspecified Qualified Code(s): I42.9 - Cardiomyopathy , unspecified (3) Cellulitis of right lower extremity Code(s): L03.115 - CELLULITIS OF RIGHT LOWER LIMB (4) ESRD (end stage renal disease) Code(s): N18.6 - END STAGE RENAL DISEASE (5) Hypotension Code(s): I95.9 - HYPOTENSION, UNSPECIFIED Qualifiers: Hypotension type: other hypotension type Qualified Code(s): I95.89 - Other hypotension (6) Hypothyroid Code(s): E03.9 - HYPOTHYROIDISM, UNSPECIFIED Qualifiers: Hypothyroidism type: unspecified Qualified Code(s): E03.9 - Hypothyroidism , unspecified (7) ICD (implantable cardioverter-defibrillator) in place Code(s): Z95.810 - PRESENCE OF AUTOMATIC (IMPLANTABLE) CARDIAC DEFIBRILLATOR (8) Open wound of foot Code(s): S91.309A - UNSPECIFIED OPEN WOUND, UNSPECIFIED FOOT, INITIAL ENCOUNTER Qualifiers: Encounter type: initial encounter Laterality: right Qualified Code(s): S91.301A - Unspecified open wound, right foot, initial encounter plan continue abx awaiting cx report from the wound awaiting ct scan of the leg podiatry on case rest continue current mgmt
[2017-08-12 11:14] LABS: PROTHROMBIN TIME (PATIENT) 22.6 SEC (9.7-13.0)
--- NOTE | 2017-08-12 11:15 | PN ---
Progress Note, Physician History of Present Illness: SBP back to baseline 90s. He denies chest pain reports at baseline dyspnea, denies palpitations, near or true syncope, orthopnea, PND or LE edema. - Current Medication List Current Medications: Active Medications Acetaminophen (Tylenol -) 650 mg PO Q6H PRN PRN Reason: FEVER Last Admin: 08/12/17 06:38 Dose: 650 mg Carvedilol (Coreg -) 12.5 mg PO BID [facility] Last Admin: 08/12/17 10:39 Dose: Not Given Collagenase (Santyl -) 1 applic TP DAILY [facility]; Protocol Guaifenesin (Diabetic Tussin Dm -) 5 ml PO Q6H PRN PRN Reason: COUGH Heparin Sodium (Porcine) (Heparin -) 1,000 unit IVPUSH PRN PRN PRN Reason: Heparin Heparin Sodium (Porcine) (Heparin -) 5,000 unit IVPUSH PRN PRN PRN Reason: Heparin Clindamycin Phosphate (Cleocin 600 Mg Premix Ivpb -) 600 mg in 50 mls @ 100 mls /hr IVPB Q8H-IV [facility]; Protocol Last Admin: 08/12/17 00:59 Dose: 100 mls/hr HEPARIN SOD,PORK IN 0.45% NACL (Heparin-1/2ns 25,000 Units/500) 25,000 units in 500 mls @ 20 mls/hr IVPB TITR [facility]; Protocol Last Admin: 08/11/17 21:45 Dose: 1,250 unit/hr, 25 mls/hr Piperacillin Sod/Tazobactam (Sod 2.25 gm/ Dextrose) 50 mls @ 100 mls/hr IVPB Q8H-IV [facility]; Protocol Last Admin: 08/12/17 00:59 Dose: 100 mls/hr Insulin Aspart (Novolog Vial Sliding Scale -) 1 vial SQ ACHS [facility]; Protocol Last Admin: 08/12/17 06:54 Dose: Not Given Levothyroxine Sodium (Synthroid -) 75 mcg PO DAILY@0700 [facility] Last Admin: 08/12/17 06:38 Dose: 75 mcg Melatonin (Melatonin) 5 mg PO HS PRN PRN Reason: INSOMNIA Last Admin: 08/12/17 02:24 Dose: 5 mg Morphine Sulfate (Morphine Sulfate) 2 mg IVPUSH Q4H PRN PRN Reason: PAIN LEVEL 7 - 10 Last Admin: 08/12/17 06:38 Dose: 2 mg Mupirocin (Bactroban 2% Ointment -) 1 applic TP BID [facility] Last Admin: 08/12/17 10:39 Dose: Not Given Warfarin Sodium (Coumadin -) 10 mg PO DAILY@1800 [facility] - Objective Vital Signs: Vital Signs Temperature 99.7 F H 08/12/17 05:50 Pulse Rate 67 08/12/17 05:50 Respiratory Rate 17 08/12/17 05:50 Blood Pressure 96/51 08/12/17 05:50 O2 Sat by Pulse Oximetry (%) 100 08/11/17 21:00 Constitutional: Yes: No Distress, Calm, Thin Neck: Yes: Supple Cardiovascular: Yes: Regular Rate and Rhythm Respiratory: Yes: Regular, Diminished, On Nasal O2 Gastrointestinal: Yes: Normal Bowel Sounds, Soft Edema: No Labs: CBC, BMP 08/12/17 06:00 08/12/17 06:00 INR, PTT INR 1.48 (0.82-1.09) H 08/11/17 09:22 - ....Imaging EKG: Report Reviewed (Tele: Afib, v-paced) Problem List - Problems (1) Cardiomyopathy Code(s): I42.9 - CARDIOMYOPATHY, UNSPECIFIED Qualifiers: Qualified Code(s): I42.9 - Cardiomyopathy, unspecified (2) ICD (implantable cardioverter-defibrillator) in place Code(s): Z95.810 - PRESENCE OF AUTOMATIC (IMPLANTABLE) CARDIAC DEFIBRILLATOR (3) Atrial fibrillation Code(s): I48.91 - UNSPECIFIED ATRIAL FIBRILLATION Qualifiers: Qualified Code(s): I48.91 - Unspecified atrial fibrillation (4) Cellulitis of right lower extremity Code(s): L03.115 - CELLULITIS OF RIGHT LOWER LIMB (5) ESRD (end stage renal disease) Code(s): N18.6 - END STAGE RENAL DISEASE (6) Hypotension Code(s): I95.9 - HYPOTENSION, UNSPECIFIED Qualifiers: Qualified Code(s): I95.89 - Other hypotension (7) Hypothyroid Code(s): E03.9 - HYPOTHYROIDISM, UNSPECIFIED Qualifiers: Qualified Code(s): E03.9 - Hypothyroidism, unspecified (8) Pericardial effusion Code(s): I31.3 - PERICARDIAL EFFUSION (NONINFLAMMATORY) Assessment/Plan 08/11/2017 Echo: Mildly dilated with severly decreased LV fxn, mild-mod dilated with mod decreased RV fxn, mod LAE, mild MR, TR, AR, moderate pericardial effusion not in tamponade 01/19/2016 Echo: Mild LV dilatation, mild cLVH, LVEF 15-20%, diastolic dysfunction, severe LAE, mod NEGRO, mild AR, MR, TR, NM RVSP 52 mmHg, small pericardial effusion 11/11/2016 Lexiscan: Large FL involving apex, inferior wall, inferolateral small area mild periinfarct ischemia mid anterior wall, dilated severly decreased LVEF 26, RV dilated 1. Ischemic dilated cardiomyopathy s/p ICD 2. ESRD on HD T, TH, Sat RUE AVF 3. Pericardial effusion ? uremic pericarditis 4. Hypothyroidism 5. Persistent afib 6. Hypotension r/o sepsis Right 5th toe osteomyelitis 7. hx of colon cancer 8. DM 9. hx of PE 10. CAD s/p FL, angina pectoris 11. DM c/b neuropathy 12. Persistent afib with subtherapeutic INR 13. Trops referable to demand ischemia Plan 1. Empiric abx per C&S 2. HD as hemodynamics tolerate to reduce pericardial effusion, hold Lasix 3. Heparin gtt->coumadin per INR with caution given pericardial effusion 4. Check TSH, trend trops to document peak 5. Resume Toprol 12.5 qd, Losartan 25 qd on non HD days as hemodynamics tolerate 6. Patient [address] Dr[address] Jayjay Karimi at [facility] 06/23/2017 pre-renal transplant eval, outpt records reviewed, usually sees Dr. Ghassan Durant at [facility]
--- NOTE | 2017-08-12 11:28 | PN ---
Progress Note (short form) - Note Progress Note: RENAL Pt awake and alert still dyspneic he is noncompliant with fluid restriction Last Vital Signs Temp Pulse Resp BP Pulse Ox 99.7 F H 67 17 96/51 100 08/12/17 05:50 08/12/17 05:50 08/12/17 05:50 08/12/17 05:50 08/11/17 21:00 lungs decreased at right base cvs s1s2 irreg abd soft ext right lower ext edema neuro a+ox3 CBC, BMP 08/12/17 06:00 08/12/17 06:00 Current Medications Generic Name Dose Route Start Last Admin Trade Name Freq PRN Reason Stop Dose Admin Acetaminophen 650 mg 08/11/17 23:29 08/12/17 06:38 Tylenol - PO 650 mg Q6H PRN Administration FEVER Collagenase 1 applic 08/12/17 10:00 Santyl - TP DAILY [facility] Protocol Guaifenesin 5 ml 08/11/17 23:29 Diabetic Tussin Dm - PO Q6H PRN COUGH Heparin Sodium (Porcine) 1,000 unit 08/11/17 23:29 Heparin - IVPUSH PRN PRN Heparin Heparin Sodium (Porcine) 5,000 unit 08/11/17 23:29 Heparin - IVPUSH PRN PRN Heparin Clindamycin Phosphate 600 mg in 50 mls @ 100 mls/hr 08/11/17 15:15 08/12/17 00:59 Cleocin 600 Mg Premix Ivpb - IVPB 100 mls/hr Q8H-IV [facility] Administration Protocol HEPARIN SOD,PORK IN 0.45% NACL 25,000 units in 500 mls @ 20 mls/hr 08/11/17 23 :29 08/11/17 21:45 Heparin-1/2ns 25,000 Units/500 IVPB 1,250 unit/hr TITR [facility] 25 mls/hr Administration Protocol 1,000 UNIT/HR Piperacillin Sod/Tazobactam 50 mls @ 100 mls/hr 08/12/17 02:00 08/12/17 00:59 Sod 2.25 gm/ Dextrose IVPB 100 mls/hr Q8H-IV [facility] Administration Protocol Insulin Aspart 1 vial 08/12/17 07:00 08/12/17 06:54 Novolog Vial Sliding Scale - SQ Not Given ACHS [facility] Protocol Levothyroxine Sodium 75 mcg 08/12/17 07:00 08/12/17 06:38 Synthroid - PO 75 mcg DAILY@0700 [facility] Administration Melatonin 5 mg 08/11/17 23:29 08/12/17 02:24 Melatonin PO 5 mg HS PRN Administration INSOMNIA Metoprolol Succinate 12.5 mg 08/13/17 10:00 Toprol Xl - PO DAILY [facility] Morphine Sulfate 2 mg 08/11/17 15:24 08/12/17 06:38 Morphine Sulfate IVPUSH 2 mg Q4H PRN Administration PAIN LEVEL 7 - 10 Mupirocin 1 applic 08/11/17 22:00 08/12/17 10:39 Bactroban 2% Ointment - TP Not Given BID [facility] Warfarin Sodium 10 mg 08/12/17 18:00 Coumadin - PO DAILY@1800 [facility] Impression 1. ESRD 2. pericardial effusion 3. pneumopericardium 4. hypothyroidism 5. a-fib 6. hypotension 7. hx of colon cancer 8. CHF 9. DM 10. hx of PE 11. CAD Plan will order HD for today may just need slow hd needs to be on a strict fluid restriction- he tends not to follow this MV
[2017-08-12] MEDS ORDERED: SODIUM CHLORIDE 250 ML IV PRN (11:33)
[2017-08-12 11:36] LABS: ANISOCYTOSIS 1+; MACROCYTOSIS 1+; PLATELET ESTIMATE NORMAL; TARGET CELLS 1+
[2017-08-12] MEDS: COLLAGENASE CLOSTRIDIUM HIST. 30 GRAMS TUBE TP SCH (14:34)
--- NOTE | 2017-08-12 16:21 | PN ---
Physical Exam: SUBJECTIVE: Patient seen and examined at the bedside. Feels better day. No chest pain, no acute distress. OBJECTIVE: Vital Signs Period Temp Pulse Resp BP Sys/Yoon Pulse Ox Last 24 Hr 98.6 F-102.4 F 65-67 17-20 85-100/45-63 100 GENERAL: Awake, alert, and fully oriented, in no acute distress. HEAD: Normal with no signs of trauma. EYES: Pupils equal, round and reactive to light, extraocular movements intact, sclera anicteric, conjunctiva clear. No lid lag. EARS, NOSE, THROAT: Ears normal, nares patent, oropharynx clear without exudates. Moist mucous membranes. NECK: Normal range of motion, supple without lymphadenopathy, JVD, or masses. LUNGS: Breath sounds equal, clear to auscultation bilaterally. No wheezes, and no crackles. No accessory muscle use. HEART: Regular rate and rhythm, normal S1 and S2 without murmur, rub or gallop. ABDOMEN: Soft, nontender, not distended, normoactive bowel sounds, no guarding, no rebound, no masses. No hepatomegaly or splenomegaly. MUSCULOSKELETAL: Normal range of motion at all joints. No bony deformities or tenderness. No CVA tenderness. UPPER EXTREMITIES: JED fistula with bruit and thrill LOWER EXTREMITIES: RLL with edema, from nair to foot. Negative for DVT NEUROLOGICAL: Normal speech. PSYCHIATRIC: Cooperative. Good eye contact. Appropriate mood and affect. Laboratory Results - last 24 hr 08/11/17 08/11/17 08/11/17 16:58 19:10 21:50 WBC RBC Hgb Hct MCV MCH MCHC RDW Plt Count MPV Absolute Neuts (auto) Neutrophils % Neutrophils % (Manual) Lymphocytes % Lymphocytes % (Manual) Monocytes % Monocytes % (Manual) Eosinophils % Eosinophils % (Manual) Basophils % Basophils % (Manual) Nucleated RBC % Platelet Estimate Platelet Comment Anisocytosis Macrocytosis Target Cells PT with INR INR PTT (Actin FS) 38.9 H Sodium Potassium Chloride Carbon Dioxide Anion Gap BUN Creatinine Creat Clearance w eGFR POC Glucometer 108 107 Random Glucose Uric Acid Calcium Magnesium Total Bilirubin AST ALT Alkaline Phosphatase Total Protein Albumin 08/12/17 08/12/17 08/12/17 06:00 06:00 06:00 WBC 9.7 RBC 4.01 Hgb 11.7 Hct 36.6 MCV 91.2 MCH 29.2 MCHC 32.0 RDW 21.6 H Plt Count 153 MPV 9.9 Absolute Neuts (auto) 6.7 Neutrophils % 69.1 Neutrophils % (Manual) 70.0 Lymphocytes % 7.1 L Lymphocytes % (Manual) 7.0 L D Monocytes % 22.0 H Monocytes % (Manual) 21 H Eosinophils % 1.3 Eosinophils % (Manual) 1.0 Basophils % 0.5 Basophils % (Manual) 1.0 Nucleated RBC % 0 Platelet Estimate Normal Platelet Comment Anisocytosis 1+ Macrocytosis 1+ Target Cells 1+ PT with INR INR PTT (Actin FS) Sodium Cancelled 134 L Potassium Cancelled 4.3 Chloride Cancelled 95 L Carbon Dioxide Cancelled 27 Anion Gap Cancelled 12 BUN Cancelled 51 H Creatinine Cancelled 10.1 H* Creat Clearance w eGFR Cancelled 5.11 POC Glucometer Random Glucose Cancelled 75 D Uric Acid 4.2 Calcium Cancelled 8.5 Magnesium Cancelled 2.4 Total Bilirubin Cancelled 1.7 H AST Cancelled 35 ALT Cancelled 16 D Alkaline Phosphatase Cancelled 91 D Total Protein Cancelled 7.6 Albumin Cancelled 2.5 L 08/12/17 08/12/17 08/12/17 06:53 10:18 10:18 WBC RBC Hgb Hct MCV MCH MCHC RDW Plt Count MPV Absolute Neuts (auto) Neutrophils % Neutrophils % (Manual) Lymphocytes % Lymphocytes % (Manual) Monocytes % Monocytes % (Manual) Eosinophils % Eosinophils % (Manual) Basophils % Basophils % (Manual) Nucleated RBC % Platelet Estimate Platelet Comment Anisocytosis Macrocytosis Target Cells PT with INR 22.60 H INR 2.00 H D PTT (Actin FS) 69.6 H D Sodium Potassium Chloride Carbon Dioxide Anion Gap BUN Creatinine Creat Clearance w eGFR POC Glucometer 80 Random Glucose Uric Acid Calcium Magnesium Total Bilirubin AST ALT Alkaline Phosphatase Total Protein Albumin Active Medications Generic Name Dose Route Start Last Admin Trade Name Freq PRN Reason Stop Dose Admin Acetaminophen 650 mg 08/11/17 23:29 08/12/17 06:38 Tylenol - PO 650 mg Q6H PRN Administration FEVER Collagenase 1 applic 08/12/17 10:00 08/12/17 14:34 Santyl - TP 1 applic DAILY [facility] Administration Protocol Guaifenesin 5 ml 08/11/17 23:29 Diabetic Tussin Dm - PO Q6H PRN COUGH Heparin Sodium (Porcine) 1,000 unit 08/11/17 23:29 Heparin - IVPUSH PRN PRN Heparin Heparin Sodium (Porcine) 5,000 unit 08/11/17 23:29 Heparin - IVPUSH PRN PRN Heparin Clindamycin Phosphate 600 mg in 50 mls @ 100 mls/hr 08/11/17 15:15 08/12/17 11:33 Cleocin 600 Mg Premix Ivpb - IVPB 100 mls/hr Q8H-IV [facility]IR[facility] Administration Protocol HEPARIN SOD,PORK IN 0.45% NACL 25,000 units in 500 mls @ 20 mls/hr 08/11/17 23 :29 08/11/17 21:45 Heparin-1/2ns 25,000 Units/500 IVPB 1,250 unit/hr TITR VIRAJ 25 mls/hr Administration Protocol 1,000 UNIT/HR Piperacillin Sod/Tazobactam 50 mls @ 100 mls/hr 08/12/17 02:00 08/12/17 11:34 Sod 2.25 gm/ Dextrose IVPB 100 mls/hr Q8H-IV [facility] Administration Protocol Sodium Chloride 250 mls @ 3,000 mls/hr 08/12/17 11:33 Normal Saline - IV 08/13/17 11:33 PRN PRN Hypotension during Dialysis Insulin Aspart 1 vial 08/12/17 07:00 08/12/17 06:54 Novolog Vial Sliding Scale - SQ Not Given ACHS [facility] Protocol Levothyroxine Sodium 75 mcg 08/12/17 07:00 08/12/17 06:38 Synthroid - PO 75 mcg DAILY@0700 [facility] Administration Melatonin 5 mg 08/11/17 23:29 08/12/17 02:24 Melatonin PO 5 mg HS PRN Administration INSOMNIA Metoprolol Succinate 12.5 mg 08/13/17 10:00 Toprol Xl - PO DAILY [facility] Morphine Sulfate 2 mg 08/11/17 15:24 08/12/17 14:35 Morphine Sulfate IVPUSH 2 mg Q4H PRN Administration PAIN LEVEL 7 - 10 Mupirocin 1 applic 08/11/17 22:00 08/12/17 10:39 Bactroban 2% Ointment - TP Not Given BID [facility] Warfarin Sodium 5 mg 08/12/17 18:00 Coumadin - PO DAILY@1800 [facility] ASSESSMENT/PLAN: Patient is a 72 year old male with a significant past medical history of congestive heart failure with left chest wall pace maker/AICD, diabetes mellitus , with neuropathy, hypertension, PE, ESRD on HD (T,,Sat) via right upper arm fistula, [place], colon cancer and atrial fibrillation. Patient presents to the ED from dialysis with a low blood pressure associated with chills during dialysis. Imaging: Echo 08/10/17: Mildly dilated with severely decreased LV fx, mild to mod dilated with mod decreased RV fx, mod LAE, mild MR, TR, AR, moderate pericardial effusion. Chest CT: cardiomegaly with moderate pericardial effusion, small amt of pneumopericardium. ID: Sepsis likely secondary to right toe cellulitis vs pulmonary source Blood and urine culture ngtd, wound cultures pending No chest pain, not short of breath, + coughing Duonebs Started on Zosyn. Clinday added. CT scan of lower right leg ordered to rule out abscess, osteo. Also having tenderness to right ankle. Ortho: Right ankle edema/tenderness Negative for DVT Ortho consulted, CT of lower ext ordered Cardiology: CHF Pacemaker/AICD Hypertension Afib Hypotensive on admission, hold cardiac meds Heparin drip for subtherapetic inr. initiate heparin drip with bridge to coumadin. Pericardial effusion on imaging Moderate Pericardial effusion/Elevated trops Cardiology following, monitor on tele 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, chronic Novolog, diabetic diet Pulm: PE history No chest pain, not tachycardic, seen by pulm, no signs of PE. On heparin drip for subtherapeutic INR. Echo ordered, pulmonary following Renal: ESRD T,,sat schedule Right arm fistula dialysis today. FEN tolerating PO monitor electrolytes diabetic diet Prophy Heparin to Coumadin
[2017-08-12] MEDS ORDERED: WARFARIN NA 5 MG TABLET (UD) PO SCH (18:00)
[2017-08-12] MEDS ORDERED: WARFARIN NA 10 MG TABLET (FP) PO SCH (18:00)
[2017-08-13] MEDS ORDERED: PIPERACILLIN/TAZOBACTAM 2.25 GM VIAL IVPB ONE ×3 (01:51→17:32)
[2017-08-13] MEDS ORDERED: DEXTROSE 5%-WATER - 50 ML IVPB ONE ×3 (01:52→17:32)
[2017-08-13] MEDS: ACETAMINOPHEN 325 MG TABLET (FP) PO PRN ×2 (01:54→18:08)
[2017-08-13] MEDS: CLINDAMYCIN 600MG PREMIX IVPB 600 MG/50 ML BAG IVPB SCH ×3 (01:54→17:54)
[2017-08-13] MEDS: PIPERACILLIN/TAZOB 2.25 GM 2.25 GM in DEXTROSE 5%-WATER - 50 ML IVPB SCH ×3 (01:54→17:55)
[2017-08-13] MEDS: INSULIN SLIDING SCALE (NOVOLOG) 1 VIAL SQ SCH ×4 (06:31→22:14)
[2017-08-13] MEDS: LEVOTHYROXINE NA 75 MCG TABLET (FP) PO SCH (06:32)
[2017-08-13] MEDS ORDERED: PT OWN MED DRAWER 7, Y5N ONE (06:52)
[2017-08-13] MEDS: HEPARIN SOD,PORK IN 0.45% NACL 25,000 UNITS/500 ML INFUS.BAG IVPB SCH (06:58)
[2017-08-13 08:19] LABS: BASO % 0.5 % (0-2.0); EOS % 0.5 % (0-4.5); HEMATOCRIT 33.8 % (35.4-49); HEMOGLOBIN 10.8 GM/dL (11.7-16.9); LYMPH % 4.4 % (8-40); MCH 29.6 pg (25.7-33.7); MEAN CELL VOLUME 92.7 fl (80-96); MEAN PLT VOLUME 9.5 fl (7.5-11.1); MONO % 21.3 % (3.8-10.2); NEUT % 73.3 % (42.8-82.8); PLATELET COUNT 154 K/MM3 (134-434); RBC 3.65 M/mm3 (4.00-5.60); RDW 21.1 % (11.9-15.9); WHITE BLOOD COUNT 11.9 K/mm3 (4.0-10.0)
[2017-08-13 08:22] LABS: PROTHROMBIN TIME (PATIENT) 33.9 SEC (9.7-13.0)
[2017-08-13 09:04] LABS: ALBUMIN 2.6 g/dl (3.4-5.0); ANION GAP 12 (8-16); BILIRUBIN,TOTAL 2.4 mg/dL (0.2-1.0); BLOOD UREA NITROGEN 30 mg/dL (7-18); CALCIUM 8.1 mg/dL (8.5-10.1); CHLORIDE 99 mmol/L (98-107); CO2 27 mmol/L (21-32); CREATININE 7.5 mg/dL (0.7-1.3); GLUCOSE,RANDOM 88 mg/dL (74-106); MAGNESIUM 2.1 mg/dL (1.8-2.4); POTASSIUM 3.8 mmol/L (3.5-5.1); SGOT/AST 48 U/L (15-37); SGPT/ALT 13 U/L (12-78); SODIUM 138 mmol/L (136-145); TOT PROT 7.3 g/dl (6.4-8.2)
[2017-08-13 09:13] LABS: ALK PHOS 99 U/L (45-117)
--- NOTE | 2017-08-13 10:11 | PN ---
Physical Exam: SUBJECTIVE: Patient seen and examined at the bedside. states he is not feeling well today, still feels weak. OBJECTIVE: tmax 103.8 stopped heparin drip today Vital Signs Period Temp Pulse Resp BP Sys/Yoon Pulse Ox Last 24 Hr 98.6 F-103 F 62-71 18-20 83-120/40-70 97 GENERAL: Awake, alert, and fully oriented, in no acute distress. HEAD: Normal with no signs of trauma. EYES: Pupils equal, round and reactive to light, extraocular movements intact, sclera anicteric, conjunctiva clear. No lid lag. EARS, NOSE, THROAT: Ears normal, nares patent, oropharynx clear without exudates. Moist mucous membranes. NECK: Normal range of motion, supple without lymphadenopathy, JVD, or masses. LUNGS: Breath sounds equal, clear to auscultation bilaterally. No wheezes, and no crackles. No accessory muscle use. HEART: paced rhythm ABDOMEN: Soft, nontender, not distended, normoactive bowel sounds, no guarding, no rebound, no masses. No hepatomegaly or splenomegaly. MUSCULOSKELETAL: Normal range of motion at all joints. No bony deformities or tenderness. No CVA tenderness. UPPER EXTREMITIES: JED fistula with bruit and thrill LOWER EXTREMITIES: RLL with edema, from nair to foot. Negative for DVT NEUROLOGICAL: Normal speech. PSYCHIATRIC: Cooperative. Good eye contact. Appropriate mood and affect. Laboratory Results - last 24 hr 08/12/17 08/12/17 08/12/17 06:00 10:18 10:18 WBC RBC Hgb Hct MCV MCH MCHC RDW Plt Count MPV Absolute Neuts (auto) Neutrophils % Neutrophils % (Manual) 70.0 Lymphocytes % Lymphocytes % (Manual) 7.0 L D Monocytes % Monocytes % (Manual) 21 H Eosinophils % Eosinophils % (Manual) 1.0 Basophils % Basophils % (Manual) 1.0 Nucleated RBC % Platelet Estimate Normal Platelet Comment Anisocytosis 1+ Macrocytosis 1+ Target Cells 1+ PT with INR 22.60 H INR 2.00 H D PTT (Actin FS) 69.6 H D Sodium Potassium Chloride Carbon Dioxide Anion Gap BUN Creatinine Creat Clearance w eGFR POC Glucometer Random Glucose Calcium Magnesium Total Bilirubin AST ALT Alkaline Phosphatase Total Protein Albumin TSH 08/13/17 08/13/17 08/13/17 06:20 06:20 06:20 WBC 11.9 H RBC 3.65 L Hgb 10.8 L Hct 33.8 L MCV 92.7 MCH 29.6 MCHC 32.0 RDW 21.1 H Plt Count 154 MPV 9.5 Absolute Neuts (auto) 8.8 Neutrophils % 73.3 Neutrophils % (Manual) Lymphocytes % 4.4 L D Lymphocytes % (Manual) Monocytes % 21.3 H Monocytes % (Manual) Eosinophils % 0.5 Eosinophils % (Manual) Basophils % 0.5 Basophils % (Manual) Nucleated RBC % 0 Platelet Estimate Platelet Comment Anisocytosis Macrocytosis Target Cells PT with INR 33.90 H INR 3.00 H D PTT (Actin FS) Sodium 138 Potassium 3.8 Chloride 99 Carbon Dioxide 27 Anion Gap 12 BUN 30 H Creatinine 7.5 H Creat Clearance w eGFR 7.20 POC Glucometer Random Glucose 88 Calcium 8.1 L Magnesium 2.1 Total Bilirubin 2.4 H AST 48 H D ALT 13 Alkaline Phosphatase 99 Total Protein 7.3 Albumin 2.6 L TSH 3.67 08/13/17 06:30 WBC RBC Hgb Hct MCV MCH MCHC RDW Plt Count MPV Absolute Neuts (auto) Neutrophils % Neutrophils % (Manual) Lymphocytes % Lymphocytes % (Manual) Monocytes % Monocytes % (Manual) Eosinophils % Eosinophils % (Manual) Basophils % Basophils % (Manual) Nucleated RBC % Platelet Estimate Platelet Comment Anisocytosis Macrocytosis Target Cells PT with INR INR PTT (Actin FS) Sodium Potassium Chloride Carbon Dioxide Anion Gap BUN Creatinine Creat Clearance w eGFR POC Glucometer 90 Random Glucose Calcium Magnesium Total Bilirubin AST ALT Alkaline Phosphatase Total Protein Albumin TSH Active Medications Generic Name Dose Route Start Last Admin Trade Name Vikramq PRN Reason Stop Dose Admin Acetaminophen 650 mg 08/11/17 23:29 08/13/17 01:54 Tylenol - PO 650 mg Q6H PRN Administration FEVER Collagenase 1 applic 08/12/17 10:00 08/12/17 14:34 Santyl - TP 1 applic DAILY [facility] Administration Protocol Guaifenesin 5 ml 08/11/17 23:29 Diabetic Tussin Dm - PO Q6H PRN COUGH Clindamycin Phosphate 600 mg in 50 mls @ 100 mls/hr 08/11/17 15:15 08/13/17 01:54 Cleocin 600 Mg Premix Ivpb - IVPB 100 mls/hr Q8H-IV [facility] Administration Protocol Piperacillin Sod/Tazobactam 50 mls @ 100 mls/hr 08/12/17 02:00 08/13/17 01:54 Sod 2.25 gm/ Dextrose IVPB 100 mls/hr Q8H-IV [facility] Administration Protocol Sodium Chloride 250 mls @ 3,000 mls/hr 08/12/17 11:33 Normal Saline - IV 08/13/17 11:33 PRN PRN Hypotension during Dialysis Insulin Aspart 1 vial 08/12/17 07:00 08/13/17 06:31 Novolog Vial Sliding Scale - SQ Not Given ACHS [facility] Protocol Levothyroxine Sodium 75 mcg 08/12/17 07:00 08/13/17 06:32 Synthroid - PO 75 mcg DAILY@0700 [facility] Administration Melatonin 5 mg 08/11/17 23:29 08/12/17 02:24 Melatonin PO 5 mg HS PRN Administration INSOMNIA Metoprolol Succinate 12.5 mg 08/13/17 10:00 Toprol Xl - PO DAILY [facility] Morphine Sulfate 2 mg 08/11/17 15:24 08/12/17 23:20 Morphine Sulfate IVPUSH 2 mg Q4H PRN Administration PAIN LEVEL 7 - 10 Mupirocin 1 applic 08/11/17 22:00 08/12/17 22:45 Bactroban 2% Ointment - TP 1 applic BID [facility] Administration Warfarin Sodium 5 mg 08/12/17 18:00 08/13/17 01:55 Coumadin - PO 5 mg DAILY@1800 [facility] Administration ASSESSMENT/PLAN: Patient is a 72 year old male with a significant past medical history of congestive heart failure with left chest wall pace maker/AICD, diabetes mellitus , with neuropathy, hypertension, PE, ESRD on HD (T,Th,Sat) via right upper arm fistula, [place], colon cancer and atrial fibrillation. Patient presents to the ED from dialysis with a low blood pressure associated with chills during dialysis with a subtherapeutic INR. Imaging: Echo 08/10/17: Mildly dilated with severely decreased LV fx, mild to mod dilated with mod decreased RV fx, mod LAE, mild MR, TR, AR, moderate pericardial effusion. Chest CT: cardiomegaly with moderate pericardial effusion, small amt of pneumopericardium. ID: Sepsis likely secondary to right fifth toe cellulitis vs pulmonary source Blood and urine culture ngtd, wound cultures noted. On Clynda and Zosyn. CT scan of lower right leg shows likely charcoat foot, erosion of the fifth digit. Patient has PM, unable to order MRI. ID following. Seen by vascular, patient refusing toe amputation. Ortho: Right ankle edema/tenderness: Negative for DVT. Ortho consulted, no orthopedic interventions at this time recommended. Cardiology: CHF, Pacemaker/AICD, Hypertension, Afib: Hypotensive on admission, BP improving. Started on Toprol 12.5 daily, Losartan 25mg after HD. Patient bridged with Heparin to Coumadin for subtherapeutic INR. Heparin discontinued. INR 3.0 Moderate Pericardial effusion/Elevated trops: Cardiology following, monitor on tele. Trops x 1 now to document peak. Endocrine: 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: Novolog, diabetic diet Pulm: PE history CT chest as noted above Unable to order CTA. As per pulm, no lung path noted. No chest pain, not tachycardic. Echo reviewed. Renal: ESRD: Dialysis via right arm fistula. T,th,sat schedule FEN tolerating PO monitor electrolytes diabetic diet Prophy Coumadin Visit type - Emergency Visit Emergency Visit: Yes ED Registration Date: 08/10/17 Care time: The patient presented to the Emergency Department on the above date and was hospitalized for further evaluation of their emergent condition. - New Patient This patient is new to me today: No - Critical Care Critical Care patient: No - Discharge Referral Referred to [facility] Med P.C.: No
[2017-08-13] MEDS: COLLAGENASE CLOSTRIDIUM HIST. 30 GRAMS TUBE TP SCH (10:30)
[2017-08-13] MEDS: MUPIROCIN 2% TOPICAL OINTMENT 22 GM TUBE TP SCH ×2 (10:30→22:15)
[2017-08-13] MEDS: metoPROLOL SUCCINATE 25 MG TAB.SR.24H (FP) PO SCH (10:31)
[2017-08-13] MEDS: MORPHINE SULFATE 2 MG/ML VIAL IVPUSH PRN ×3 (10:32→22:15)
--- NOTE | 2017-08-13 10:54 | PN ---
Progress Note (short form) - Note Progress Note: Febrile to 101 Right foot swelling 2+ Toe wound with small amount bloody drainage Less tender WBC 11K Imp: Wound right 5th toe, unclear if that is only source to explain fever and WBC Plan: Continue Abx. I raised possibility of toe amputation but he refuses. Problem List - Problems (1) Open wound of foot Code(s): S91.309A - UNSPECIFIED OPEN WOUND, UNSPECIFIED FOOT, INITIAL ENCOUNTER Qualifiers: Encounter type: subsequent encounter Laterality: right Qualified Code(s) : S91.301D - Unspecified open wound, right foot, subsequent encounter
--- NOTE | 2017-08-13 11:33 | PN ---
Progress Note (short form) - Note Progress Note: RENAL Pt awake and alert comfortable without oxygen he is noncompliant with fluid restriction refusing toe amputation as suggested by vascular Last Vital Signs Temp Pulse Resp BP Pulse Ox 99.2 F 68 18 92/54 97 08/13/17 10:00 08/13/17 10:00 08/13/17 10:00 08/13/17 10:00 08/12/17 21:00 lungs decreased at right base cvs s1s2 irreg abd soft ext right lower ext edema neuro a+ox3 CBC, BMP 08/13/17 06:20 08/13/17 06:20 Impression 1. ESRD 2. pericardial effusion 3. pneumopericardium 4. hypothyroidism 5. a-fib 6. hypotension 7. hx of colon cancer 8. CHF 9. DM 10. hx of PE 11. CAD 12. toe infection Plan will order HD for tomorrow again and then should also be dialyzed on 08/15/2017 needs to be on a strict fluid restriction- he tends not to follow this antibiotics MV
[2017-08-13] MEDS ORDERED: SODIUM CHLORIDE 250 ML IV PRN (11:35)
[2017-08-13] MEDS ORDERED: HEPARIN NA (PORCINE) 5,000 UNITS/ML 1ML VIAL IVPUSH ONE (11:35)
--- NOTE | 2017-08-13 11:37 | PN ---
Progress Note, Physician History of Present Illness: doing much better patient again starting to spike off oan on patient feels well - Current Medication List Current Medications: Active Medications Acetaminophen (Tylenol -) 650 mg PO Q6H PRN PRN Reason: FEVER Last Admin: 08/13/17 01:54 Dose: 650 mg Collagenase (Santyl -) 1 applic TP DAILY [facility]; Protocol Last Admin: 08/13/17 10:30 Dose: 1 applic Guaifenesin (Diabetic Tussin Dm -) 5 ml PO Q6H PRN PRN Reason: COUGH Clindamycin Phosphate (Cleocin 600 Mg Premix Ivpb -) 600 mg in 50 mls @ 100 mls /hr IVPB Q8H-IV [facility]; Protocol Last Admin: 08/13/17 10:20 Dose: 100 mls/hr Piperacillin Sod/Tazobactam (Sod 2.25 gm/ Dextrose) 50 mls @ 100 mls/hr IVPB Q8H-IV [facility]; Protocol Last Admin: 08/13/17 10:30 Dose: 100 mls/hr Sodium Chloride (Normal Saline -) 250 mls @ 3,000 mls/hr IV PRN PRN PRN Reason: Hypotension during Dialysis Stop: 08/13/17 11:33 Insulin Aspart (Novolog Vial Sliding Scale -) 1 vial SQ ACHS [facility]; Protocol Last Admin: 08/13/17 06:31 Dose: Not Given Levothyroxine Sodium (Synthroid -) 75 mcg PO DAILY@0700 [facility] Last Admin: 08/13/17 06:32 Dose: 75 mcg Melatonin (Melatonin) 5 mg PO HS PRN PRN Reason: INSOMNIA Last Admin: 08/12/17 02:24 Dose: 5 mg Metoprolol Succinate (Toprol Xl -) 12.5 mg PO DAILY [facility] Last Admin: 08/13/17 10:31 Dose: 12.5 mg Morphine Sulfate (Morphine Sulfate) 2 mg IVPUSH Q4H PRN PRN Reason: PAIN LEVEL 7 - 10 Last Admin: 08/13/17 10:32 Dose: 2 mg Mupirocin (Bactroban 2% Ointment -) 1 applic TP BID [facility] Last Admin: 08/13/17 10:30 Dose: 1 applic Warfarin Sodium (Coumadin -) 5 mg PO DAILY@1800 [facility] Last Admin: 08/13/17 01:55 Dose: 5 mg - Objective Vital Signs: Vital Signs Temperature 99.2 F 08/13/17 10:00 Pulse Rate 68 08/13/17 10:00 Respiratory Rate 18 08/13/17 10:00 Blood Pressure 92/54 08/13/17 10:00 O2 Sat by Pulse Oximetry (%) 97 08/12/17 21:00 Constitutional: Yes: No Distress, Calm Cardiovascular: Yes: Regular Rate and Rhythm Respiratory: Yes: Regular, CTA Bilaterally Gastrointestinal: Yes: Normal Bowel Sounds, Soft Musculoskeletal: Yes: WNL Extremities: Yes: Other Wound/Incision: Yes: Open to air, Other (still with draiange) Neurological: Yes: Alert, Oriented Psychiatric: Yes: Alert, Oriented Labs: CBC, BMP 08/13/17 06:20 08/13/17 06:20 INR, PTT INR 3.00 (0.82-1.09) H D 08/13/17 06:20 Assessment/Plan patient coming in a type of sepsis picture i think his invection is coming from the wound itself he has multiple other issues Problem List - Problems (1) Atrial fibrillation Code(s): I48.91 - UNSPECIFIED ATRIAL FIBRILLATION Qualifiers: Atrial fibrillation type: unspecified Qualified Code(s): I48.91 - Unspecified atrial fibrillation (2) Cardiomyopathy Code(s): I42.9 - CARDIOMYOPATHY, UNSPECIFIED Qualifiers: Cardiomyopathy type: unspecified Qualified Code(s): I42.9 - Cardiomyopathy , unspecified (3) Cellulitis of right lower extremity Code(s): L03.115 - CELLULITIS OF RIGHT LOWER LIMB (4) ESRD (end stage renal disease) Code(s): N18.6 - END STAGE RENAL DISEASE (5) Hypotension Code(s): I95.9 - HYPOTENSION, UNSPECIFIED Qualifiers: Hypotension type: other hypotension type Qualified Code(s): I95.89 - Other hypotension (6) Hypothyroid Code(s): E03.9 - HYPOTHYROIDISM, UNSPECIFIED Qualifiers: Hypothyroidism type: unspecified Qualified Code(s): E03.9 - Hypothyroidism , unspecified (7) ICD (implantable cardioverter-defibrillator) in place Code(s): Z95.810 - PRESENCE OF AUTOMATIC (IMPLANTABLE) CARDIAC DEFIBRILLATOR (8) Open wound of foot Code(s): S91.309A - UNSPECIFIED OPEN WOUND, UNSPECIFIED FOOT, INITIAL ENCOUNTER Qualifiers: Encounter type: initial encounter Laterality: right Qualified Code(s): S91.301A - Unspecified open wound, right foot, initial encounter plan continue abx cx from wound noted will d/w with podiatry team patient will need debridement await for ct scan result
--- NOTE | 2017-08-13 12:26 | PN ---
Progress Note, Physician History of Present Illness: SBP back to baseline 90s. He denies chest pain reports at baseline dyspnea, denies palpitations, near or true syncope, orthopnea, PND or LE edema. - Current Medication List Current Medications: Active Medications Acetaminophen (Tylenol -) 650 mg PO Q6H PRN PRN Reason: FEVER Last Admin: 08/13/17 01:54 Dose: 650 mg Collagenase (Santyl -) 1 applic TP DAILY [facility]; Protocol Last Admin: 08/13/17 10:30 Dose: 1 applic Guaifenesin (Diabetic Tussin Dm -) 5 ml PO Q6H PRN PRN Reason: COUGH Clindamycin Phosphate (Cleocin 600 Mg Premix Ivpb -) 600 mg in 50 mls @ 100 mls /hr IVPB Q8H-IV [facility]; Protocol Last Admin: 08/13/17 10:20 Dose: 100 mls/hr Piperacillin Sod/Tazobactam (Sod 2.25 gm/ Dextrose) 50 mls @ 100 mls/hr IVPB Q8H-IV [facility]; Protocol Last Admin: 08/13/17 10:30 Dose: 100 mls/hr Sodium Chloride (Normal Saline -) 250 mls @ 3,000 mls/hr IV PRN PRN PRN Reason: Hypotension during Dialysis Stop: 08/14/17 11:35 Insulin Aspart (Novolog Vial Sliding Scale -) 1 vial SQ ACHS [facility]; Protocol Last Admin: 08/13/17 12:13 Dose: Not Given Levothyroxine Sodium (Synthroid -) 75 mcg PO DAILY@0700 [facility] Last Admin: 08/13/17 06:32 Dose: 75 mcg Melatonin (Melatonin) 5 mg PO HS PRN PRN Reason: INSOMNIA Last Admin: 08/12/17 02:24 Dose: 5 mg Metoprolol Succinate (Toprol Xl -) 12.5 mg PO DAILY [facility] Last Admin: 08/13/17 10:31 Dose: 12.5 mg Morphine Sulfate (Morphine Sulfate) 2 mg IVPUSH Q4H PRN PRN Reason: PAIN LEVEL 7 - 10 Last Admin: 08/13/17 10:32 Dose: 2 mg Mupirocin (Bactroban 2% Ointment -) 1 applic TP BID [facility] Last Admin: 08/13/17 10:30 Dose: 1 applic Warfarin Sodium (Coumadin -) 5 mg PO DAILY@1800 [facility] Last Admin: 08/13/17 01:55 Dose: 5 mg - Objective Vital Signs: Vital Signs Temperature 99.2 F 08/13/17 10:00 Pulse Rate 68 08/13/17 10:00 Respiratory Rate 18 08/13/17 10:00 Blood Pressure 92/54 08/13/17 10:00 O2 Sat by Pulse Oximetry (%) 97 08/12/17 21:00 Constitutional: Yes: No Distress, Calm, Thin Neck: Yes: Supple Cardiovascular: Yes: Regular Rate and Rhythm Respiratory: Yes: Regular, Diminished, On Nasal O2 Gastrointestinal: Yes: Normal Bowel Sounds, Soft Edema: No Labs: CBC, BMP 08/13/17 06:20 08/13/17 06:20 INR, PTT INR 3.00 (0.82-1.09) H D 08/13/17 06:20 Problem List - Problems (1) Cardiomyopathy Code(s): I42.9 - CARDIOMYOPATHY, UNSPECIFIED Qualifiers: Cardiomyopathy type: unspecified Qualified Code(s): I42.9 - Cardiomyopathy , unspecified (2) ICD (implantable cardioverter-defibrillator) in place Code(s): Z95.810 - PRESENCE OF AUTOMATIC (IMPLANTABLE) CARDIAC DEFIBRILLATOR (3) Atrial fibrillation Code(s): I48.91 - UNSPECIFIED ATRIAL FIBRILLATION Qualifiers: Atrial fibrillation type: unspecified Qualified Code(s): I48.91 - Unspecified atrial fibrillation (4) Cellulitis of right lower extremity Code(s): L03.115 - CELLULITIS OF RIGHT LOWER LIMB (5) ESRD (end stage renal disease) Code(s): N18.6 - END STAGE RENAL DISEASE (6) Hypotension Code(s): I95.9 - HYPOTENSION, UNSPECIFIED Qualifiers: Hypotension type: other hypotension type Qualified Code(s): I95.89 - Other hypotension (7) Hypothyroid Code(s): E03.9 - HYPOTHYROIDISM, UNSPECIFIED Qualifiers: Hypothyroidism type: unspecified Qualified Code(s): E03.9 - Hypothyroidism , unspecified (8) Pericardial effusion Code(s): I31.3 - PERICARDIAL EFFUSION (NONINFLAMMATORY) Assessment/Plan 08/11/2017 Echo: Mildly dilated with severly decreased LV fxn, mild-mod dilated with mod decreased RV fxn, mod LAE, mild MR, TR, AR, moderate pericardial effusion not in tamponade 01/19/2016 Echo: Mild LV dilatation, mild cLVH, LVEF 15-20%, diastolic dysfunction, severe LAE, mod NEGRO, mild AR, MR, TR, NH RVSP 52 mmHg, small pericardial effusion 11/11/2016 Lexiscan: Large OH involving apex, inferior wall, inferolateral small area mild periinfarct ischemia mid anterior wall, dilated severly decreased LVEF 26, RV dilated 1. Ischemic dilated cardiomyopathy s/p ICD 2. ESRD on HD T, TH, Sat RUE AVF 3. Pericardial effusion ? uremic pericarditis 4. Hypothyroidism 5. Persistent afib 6. Resolved hypotension r/o sepsis Right 5th toe osteomyelitis, declines amputatiuon 7. hx of colon cancer 8. DM 9. hx of PE 10. CAD s/p OH, angina pectoris 11. DM c/b neuropathy 12. Persistent afib with therapeutic INR 13. Trops referable to demand ischemia Plan 1. Empiric abx per C&S 2. HD as hemodynamics tolerate to reduce pericardial effusion, hold Lasix, trend trops to document peak 3. Coumadin per INR with caution given pericardial effusion 4. Resumed Toprol 12.5 qd, Losartan 25 qd on non HD days as hemodynamics tolerate 5. Patient saw Dr. Jayjay Karimi at [facility] 06/23/2017 pre-renal transplant eval, outpt records reviewed, usually sees Dr. Ghassan Durant at [facility]
[2017-08-13 14:04] LABS: ANISOCYTOSIS 1+; MACROCYTOSIS 1+; OVALOCYTE 1+; PLATELET ESTIMATE DECREASED; TARGET CELLS 1+
[2017-08-13] MEDS: LOSARTAN POTASSIUM 25 MG TABLET PO SCH (14:32)
[2017-08-13] MEDS ORDERED: WARFARIN NA 2 MG TABLET (UD) PO SCH (18:00)
[2017-08-14] MEDS ORDERED: PIPERACILLIN/TAZOBACTAM 2.25 GM VIAL IVPB ONE ×2 (01:25→09:58)
[2017-08-14] MEDS ORDERED: DEXTROSE 5%-WATER - 50 ML IVPB ONE ×2 (01:26→09:58)
[2017-08-14] MEDS: CLINDAMYCIN 600MG PREMIX IVPB 600 MG/50 ML BAG IVPB SCH ×2 (01:29→10:25)
[2017-08-14] MEDS: PIPERACILLIN/TAZOB 2.25 GM 2.25 GM in DEXTROSE 5%-WATER - 50 ML IVPB SCH ×2 (02:05→10:25)
[2017-08-14] MEDS: MORPHINE SULFATE 2 MG/ML VIAL IVPUSH PRN ×2 (05:40→19:48)
[2017-08-14] MEDS: ACETAMINOPHEN 325 MG TABLET (FP) PO PRN ×2 (05:40→21:59)
[2017-08-14] MEDS: LEVOTHYROXINE NA 75 MCG TABLET (FP) PO SCH (06:34)
[2017-08-14 06:54] LABS: PROTHROMBIN TIME (PATIENT) 45.7 SEC (9.7-13.0)
[2017-08-14 07:06] LABS: CHLORIDE 94 mmol/L (98-107); POTASSIUM 4.6 mmol/L (3.5-5.1); SODIUM 135 mmol/L (136-145)
[2017-08-14 07:09] LABS: INR 4.04 (0.82-1.09)
[2017-08-14 07:11] LABS: BASO % 0.4 % (0-2.0); EOS % 0.9 % (0-4.5); HEMATOCRIT 37.5 % (35.4-49); LYMPH % 7.2 % (8-40); MCH 29.3 pg (25.7-33.7); MEAN CELL VOLUME 91.5 fl (80-96); MEAN PLT VOLUME 9.7 fl (7.5-11.1); MONO % 14.8 % (3.8-10.2); NEUT % 76.7 % (42.8-82.8); PLATELET COUNT 177 K/MM3 (134-434); RDW 21.4 % (11.9-15.9); WHITE BLOOD COUNT 13.9 K/mm3 (4.0-10.0)
[2017-08-14 07:15] LABS: ALBUMIN 2.7 g/dl (3.4-5.0); ALK PHOS 99 U/L (45-117); ANION GAP 15 (8-16); BLOOD UREA NITROGEN 43 mg/dL (7-18); CALCIUM 8.9 mg/dL (8.5-10.1); CO2 26 mmol/L (21-32); GLUCOSE,RANDOM 84 mg/dL (74-106); MAGNESIUM 2.1 mg/dL (1.8-2.4); SGOT/AST 63 U/L (15-37); SGPT/ALT 19 U/L (12-78); TOT PROT 8.3 g/dl (6.4-8.2)
[2017-08-14 07:34] LABS: CREATININE 9.2 mg/dL (0.7-1.3)
--- NOTE | 2017-08-14 10:53 | PN ---
Progress Note (short form) - Note Progress Note: Patient seen in bed today. Pain has not continued to improve. vss, Tmax 101.3F +demarcated dusky toes 4&5 right, appear to becoming gangrenous, ct scan consistent with changes, cannot do MRI do to pacemaker. +tender 4&5 right and plantar mets heads 4&5, wbc trenidng up 13.9, om? gangarene dusky toes 4&5 Discussed with patient at length the need for intervention due to changes in wbc , increase temperature, pain and changes in toes. Discuissed oprions with risks. Patient fully undertood all risks benefits and alternatives. Patient consented to intervention today. NPO started at 9:30am and scheduled for OR today at 3:30pm. Discusssed with ID agrees that intervention needed. Medical clearance.
[2017-08-14] MEDS: MUPIROCIN 2% TOPICAL OINTMENT 22 GM TUBE TP SCH (11:04)
[2017-08-14] MEDS: LOSARTAN POTASSIUM 25 MG TABLET PO SCH (11:05)
[2017-08-14] MEDS: COLLAGENASE CLOSTRIDIUM HIST. 30 GRAMS TUBE TP SCH (11:05)
[2017-08-14] MEDS: metoPROLOL SUCCINATE 25 MG TAB.SR.24H (FP) PO SCH (11:05)
--- NOTE | 2017-08-14 12:09 | PN ---
Physical Exam: SUBJECTIVE: Patient seen and examined. He had sob this AM. He is agreeing to amputation. Denies fever, chills. Events: - Telemetry v paced OBJECTIVE: Vital Signs Period Temp Pulse Resp BP Sys/Yoon Pulse Ox Last 24 Hr 97.7 F-101.3 F 62-68 18-22 81-114/42-67 95-99 PE Neuro: alert, awake, cn 2-12intact Pulm: basilar crackles +NC CV: s1 s2 rrr Abd: s nt nd + bs Ext: R foot tenderness, 5th toe wound open, draining, 4th toe swelling, +DP pulse, toes dark, RUE AVF + trill Laboratory Results - last 24 hr 08/13/17 08/13/17 08/13/17 06:20 12:12 17:05 WBC RBC Hgb Hct MCV MCH MCHC RDW Plt Count MPV Absolute Neuts (auto) Neutrophils % Neutrophils % (Manual) 68.8 Band Neutrophils % 0.0 Lymphocytes % Lymphocytes % (Manual) 5.2 L D Monocytes % Monocytes % (Manual) 25 H Eosinophils % Eosinophils % (Manual) 0.0 D Basophils % Basophils % (Manual) 0.0 Myelocytes % (Man) 0 Promyelocytes % (Man) 0 Blast Cells % (Manual) 0 Nucleated RBC % Metamyelocytes 0 Hypochromia 1+ Platelet Estimate Decreased Poikilocytosis 1+ Anisocytosis 1+ Microcytosis 1+ Macrocytosis 1+ Target Cells 1+ Ovalocytes 1+ Schistocytes 1+ PT with INR INR PTT (Actin FS) Sodium Potassium Chloride Carbon Dioxide Anion Gap BUN Creatinine Creat Clearance w eGFR POC Glucometer 92 Random Glucose Calcium Magnesium Total Bilirubin AST ALT Alkaline Phosphatase Troponin I 0.15 H D Total Protein Albumin 08/13/17 08/14/17 08/14/17 22:04 05:30 05:30 WBC RBC Hgb Hct MCV MCH MCHC RDW Plt Count MPV Absolute Neuts (auto) Neutrophils % Neutrophils % (Manual) Band Neutrophils % Lymphocytes % Lymphocytes % (Manual) Monocytes % Monocytes % (Manual) Eosinophils % Eosinophils % (Manual) Basophils % Basophils % (Manual) Myelocytes % (Man) Promyelocytes % (Man) Blast Cells % (Manual) Nucleated RBC % Metamyelocytes Hypochromia Platelet Estimate Poikilocytosis Anisocytosis Microcytosis Macrocytosis Target Cells Ovalocytes Schistocytes PT with INR INR PTT (Actin FS) 58.2 H Sodium 135 L Potassium 4.6 D Chloride 94 L Carbon Dioxide 26 Anion Gap 15 BUN 43 H Creatinine 9.2 H* Creat Clearance w eGFR 5.69 POC Glucometer 101 Random Glucose 84 Calcium 8.9 Magnesium 2.1 Total Bilirubin 3.0 H AST 63 H D ALT 19 D Alkaline Phosphatase 99 Troponin I 0.21 H D Total Protein 8.3 H Albumin 2.7 L 08/14/17 08/14/17 08/14/17 05:30 05:30 06:33 WBC 13.9 H RBC 4.10 Hgb 12.0 Hct 37.5 MCV 91.5 MCH 29.3 MCHC 32.0 RDW 21.4 H Plt Count 177 MPV 9.7 Absolute Neuts (auto) 10.7 Neutrophils % 76.7 Neutrophils % (Manual) Band Neutrophils % Lymphocytes % 7.2 L D Lymphocytes % (Manual) Monocytes % 14.8 H Monocytes % (Manual) Eosinophils % 0.9 Eosinophils % (Manual) Basophils % 0.4 Basophils % (Manual) Myelocytes % (Man) Promyelocytes % (Man) Blast Cells % (Manual) Nucleated RBC % 0 Metamyelocytes Hypochromia Platelet Estimate Poikilocytosis Anisocytosis Microcytosis Macrocytosis Target Cells Ovalocytes Schistocytes PT with INR 45.70 H INR 4.04 H* D PTT (Actin FS) Sodium Potassium Chloride Carbon Dioxide Anion Gap BUN Creatinine Creat Clearance w eGFR POC Glucometer 91 Random Glucose Calcium Magnesium Total Bilirubin AST ALT Alkaline Phosphatase Troponin I Total Protein Albumin Active Medications Generic Name Dose Route Start Last Admin Trade Name Freq PRN Reason Stop Dose Admin Acetaminophen 650 mg 08/11/17 23:29 08/14/17 05:40 Tylenol - PO 650 mg Q6H PRN Administration FEVER Collagenase 1 applic 08/12/17 10:00 08/14/17 11:05 Santyl - TP Not Given DAILY [facility] Protocol Guaifenesin 5 ml 08/11/17 23:29 Diabetic Tussin Dm - PO Q6H PRN COUGH Clindamycin Phosphate 600 mg in 50 mls @ 100 mls/hr 08/11/17 15:15 08/14/17 10:25 Cleocin 600 Mg Premix Ivpb - IVPB 100 mls/hr Q8H-IV [facility] Administration Protocol Piperacillin Sod/Tazobactam 50 mls @ 100 mls/hr 08/12/17 02:00 08/14/17 10:25 Sod 2.25 gm/ Dextrose IVPB 100 mls/hr Q8H-IV [facility] Administration Protocol Insulin Aspart 1 vial 08/12/17 07:00 08/13/17 22:14 Novolog Vial Sliding Scale - SQ Not Given ACHS [facility] Protocol Levothyroxine Sodium 75 mcg 08/12/17 07:00 08/14/17 06:34 Synthroid - PO 75 mcg DAILY@0700 [facility] Administration Losartan Potassium 25 mg 08/13/17 12:30 08/14/17 11:05 Cozaar - PO Not Given DAILY [facility] Melatonin 5 mg 08/11/17 23:29 08/12/17 02:24 Melatonin PO 5 mg HS PRN Administration INSOMNIA Metoprolol Succinate 12.5 mg 08/13/17 10:00 08/14/17 11:05 Toprol Xl - PO Not Given DAILY [facility] Morphine Sulfate 2 mg 08/11/17 15:24 08/14/17 05:40 Morphine Sulfate IVPUSH 2 mg Q4H PRN Administration PAIN LEVEL 7 - 10 Mupirocin 1 applic 08/11/17 22:00 08/14/17 11:04 Bactroban 2% Ointment - TP Not Given BID [facility] Warfarin Sodium 2 mg 08/13/17 18:00 08/13/17 18:06 Coumadin - PO 2 mg DAILY@1800 [facility] Administration Imaging: Echo 08/10/17: Mildly dilated with severely decreased LV fx, mild to mod dilated with mod decreased RV fx, mod LAE, mild MR, TR, AR, moderate pericardial effusion. Chest CT: cardiomegaly with moderate pericardial effusion, small amt of pneumopericardium. Assessment: 72 year old male with pmhx CHF with left chest wall pace maker/AICD , diabetes mellitus, with neuropathy, hypertension, PE, ESRD on HD (,,Mon) via right upper arm fistula, [place], colon cancer and atrial fibrillation presented with from HD with hypotension, chills, and sub therapeutic INR Plan: 1. Sepsis d/t R foot celluitis - Worsening, WBC increasing, tenderness, will go for 4th, 5th toe amputation today 330 with podiatry - r/o gangrene vs OM (no MRI d/t PPM) - Continue zosyn, clindamycin - Hold coumadin tonight, FFP [id number] ordered for 1 hr prior to surgery - D/w vascular, podiatry - Cardiology note reviewed re clearance 2. ESRD on HD T S - Hold HD today - Resume tomorrow - Renal seeing 3. CHF, s/p ppm/aicd - Conitnue HD 4. A fib, rate controlled - Toprol 12.5mg daily - Losartan 25mg post HD - Hold coumadin supra therapeutic inr 5. DM II - ISS, BGM ACHS 6. hx of PE - AC on hold - No acute lung pathology Visit type - Emergency Visit Emergency Visit: Yes ED Registration Date: 08/10/17 Care time: The patient presented to the Emergency Department on the above date and was hospitalized for further evaluation of their emergent condition. - New Patient This patient is new to me today: Yes Date on this admission: 08/14/17 - Critical Care Critical Care patient: No
--- NOTE | 2017-08-14 12:10 | PN ---
Progress Note, Physician Chief Complaint: Events noted Not in distress, but questions about vascular surgery that is planned History of Present Illness: Patient was seen and examined. Awake and alert. Chart was reviewed Denies chest pain, SOB or palpitations - Current Medication List Current Medications: Active Medications Acetaminophen (Tylenol -) 650 mg PO Q6H PRN PRN Reason: FEVER Last Admin: 08/14/17 05:40 Dose: 650 mg Collagenase (Santyl -) 1 applic TP DAILY [facility]; Protocol Last Admin: 08/14/17 11:05 Dose: Not Given Guaifenesin (Diabetic Tussin Dm -) 5 ml PO Q6H PRN PRN Reason: COUGH Clindamycin Phosphate (Cleocin 600 Mg Premix Ivpb -) 600 mg in 50 mls @ 100 mls /hr IVPB Q8H-IV [facility]; Protocol Last Admin: 08/14/17 10:25 Dose: 100 mls/hr Piperacillin Sod/Tazobactam (Sod 2.25 gm/ Dextrose) 50 mls @ 100 mls/hr IVPB Q8H-IV [facility]; Protocol Last Admin: 08/14/17 10:25 Dose: 100 mls/hr Insulin Aspart (Novolog Vial Sliding Scale -) 1 vial SQ ACHS [facility]; Protocol Last Admin: 08/13/17 22:14 Dose: Not Given Levothyroxine Sodium (Synthroid -) 75 mcg PO DAILY@0700 [facility] Last Admin: 08/14/17 06:34 Dose: 75 mcg Losartan Potassium (Cozaar -) 25 mg PO DAILY [facility] Last Admin: 08/14/17 11:05 Dose: Not Given Melatonin (Melatonin) 5 mg PO HS PRN PRN Reason: INSOMNIA Last Admin: 08/12/17 02:24 Dose: 5 mg Metoprolol Succinate (Toprol Xl -) 12.5 mg PO DAILY [facility] Last Admin: 08/14/17 11:05 Dose: Not Given Morphine Sulfate (Morphine Sulfate) 2 mg IVPUSH Q4H PRN PRN Reason: PAIN LEVEL 7 - 10 Last Admin: 08/14/17 05:40 Dose: 2 mg Mupirocin (Bactroban 2% Ointment -) 1 applic TP BID [facility] Last Admin: 08/14/17 11:04 Dose: Not Given Warfarin Sodium (Coumadin -) 2 mg PO DAILY@1800 [facility] Last Admin: 08/13/17 18:06 Dose: 2 mg - Objective Vital Signs: Vital Signs Temperature 97.7 F 08/14/17 10:00 Pulse Rate 66 08/14/17 10:00 Respiratory Rate 22 08/14/17 10:00 Blood Pressure 87/53 08/14/17 10:00 O2 Sat by Pulse Oximetry (%) 99 08/14/17 09:00 HENT: Yes: Atraumatic Neck: Yes: Supple Cardiovascular: Yes: Regular Rate and Rhythm, S1, S2 Respiratory: Yes: CTA Bilaterally Gastrointestinal: Yes: Normal Bowel Sounds, Soft. No: Tenderness Edema: Yes Edema: LLE: Trace, RLE: Trace Labs: CBC, BMP 08/14/17 05:30 08/14/17 05:30 INR, PTT INR 4.04 (0.82-1.09) H* D 08/14/17 05:30 Problem List - Problems (1) Atrial fibrillation Code(s): I48.91 - UNSPECIFIED ATRIAL FIBRILLATION Qualifiers: Atrial fibrillation type: unspecified Qualified Code(s): I48.91 - Unspecified atrial fibrillation (2) Cardiomyopathy Code(s): I42.9 - CARDIOMYOPATHY, UNSPECIFIED Qualifiers: Cardiomyopathy type: unspecified Qualified Code(s): I42.9 - Cardiomyopathy , unspecified (3) Cellulitis of right lower extremity Code(s): L03.115 - CELLULITIS OF RIGHT LOWER LIMB (4) Diabetic foot ulcer Code(s): E11.621 - TYPE 2 DIABETES MELLITUS WITH FOOT ULCER; L97.509 - NON- PRESSURE CHRONIC ULCER OTH PRT UNSP FOOT W UNSP SEVERITY (5) ESRD (end stage renal disease) Code(s): N18.6 - END STAGE RENAL DISEASE (6) Hypothyroid Code(s): E03.9 - HYPOTHYROIDISM, UNSPECIFIED Qualifiers: Hypothyroidism type: unspecified Qualified Code(s): E03.9 - Hypothyroidism , unspecified (7) ICD (implantable cardioverter-defibrillator) in place Code(s): Z95.810 - PRESENCE OF AUTOMATIC (IMPLANTABLE) CARDIAC DEFIBRILLATOR (8) Pericardial effusion Code(s): I31.3 - PERICARDIAL EFFUSION (NONINFLAMMATORY) Assessment/Plan 1. Ischemic dilated cardiomyopathy s/p ICD 2. ESRD on HD - RUE AVF 3. Pericardial effusion possible uremic pericarditis 4. Hypothyroidism 5. Persistent AF 6. Resolved hypotension r/o sepsis Right 5th toe osteomyelitis 7. History of colon cancer 8. DM 9. History of PE 10. CAD s/p [place], angina pectoris 11. DM with neuropathy 12. Elevated troponin suggests demand ischemia PLAN: 1. Empiric antibiotics. 2. HD as hemodynamics tolerate 3. Coumadin per INR currently supratherapeutic. Hold if patient planned for surgical intervention 4. Resumed Toprol 12.5 qd, Losartan 25 qd on non HD days as hemodynamics tolerate 5. Patient wants to discuss with Vascular Surgery regarding further surgical plans and options Further plans are to follow Jagdeep Booker MD
[2017-08-14] MEDS: INSULIN SLIDING SCALE (NOVOLOG) 1 VIAL SQ SCH ×2 (12:13→22:01)
--- NOTE | 2017-08-14 14:41 | PN ---
Progress Note, Physician History of Present Illness: Pt seen and examined at bedside. He is awake and alert. He denies shortness of breath. He is going to for surgery today to amputate two of his toes. - Current Medication List Current Medications: Active Medications Acetaminophen (Tylenol -) 650 mg PO Q6H PRN PRN Reason: FEVER Last Admin: 08/14/17 05:40 Dose: 650 mg Collagenase (Santyl -) 1 applic TP DAILY [facility]; Protocol Last Admin: 08/14/17 11:05 Dose: Not Given Guaifenesin (Diabetic Tussin Dm -) 5 ml PO Q6H PRN PRN Reason: COUGH Clindamycin Phosphate (Cleocin 600 Mg Premix Ivpb -) 600 mg in 50 mls @ 100 mls /hr IVPB Q8H-IV [facility]; Protocol Last Admin: 08/14/17 10:25 Dose: 100 mls/hr Piperacillin Sod/Tazobactam (Sod 2.25 gm/ Dextrose) 50 mls @ 100 mls/hr IVPB Q8H-IV [facility]; Protocol Last Admin: 08/14/17 10:25 Dose: 100 mls/hr Insulin Aspart (Novolog Vial Sliding Scale -) 1 vial SQ ACHS [facility]; Protocol Last Admin: 08/14/17 12:13 Dose: Not Given Levothyroxine Sodium (Synthroid -) 75 mcg PO DAILY@0700 [facility] Last Admin: 08/14/17 06:34 Dose: 75 mcg Losartan Potassium (Cozaar -) 25 mg PO DAILY [facility] Last Admin: 08/14/17 11:05 Dose: Not Given Melatonin (Melatonin) 5 mg PO HS PRN PRN Reason: INSOMNIA Last Admin: 08/12/17 02:24 Dose: 5 mg Metoprolol Succinate (Toprol Xl -) 12.5 mg PO DAILY [facility] Last Admin: 08/14/17 11:05 Dose: Not Given Morphine Sulfate (Morphine Sulfate) 2 mg IVPUSH Q4H PRN PRN Reason: PAIN LEVEL 7 - 10 Last Admin: 08/14/17 05:40 Dose: 2 mg Mupirocin (Bactroban 2% Ointment -) 1 applic TP BID [facility] Last Admin: 08/14/17 11:04 Dose: Not Given Warfarin Sodium (Coumadin -) 2 mg PO DAILY@1800 [facility] Last Admin: 08/13/17 18:06 Dose: 2 mg - Objective Vital Signs: Vital Signs Temperature 97.7 F 08/14/17 10:00 Pulse Rate 66 08/14/17 10:00 Respiratory Rate 22 08/14/17 10:00 Blood Pressure 87/53 08/14/17 10:00 O2 Sat by Pulse Oximetry (%) 99 08/14/17 09:00 Constitutional: Yes: Calm Eyes: Yes: Conjunctiva Clear HENT: Yes: Normocephalic Cardiovascular: Yes: S1, S2 Respiratory: Yes: CTA Bilaterally Gastrointestinal: Yes: Soft Genitourinary: Yes: WNL Edema: Yes Edema: LLE: 1+, RLE: 1+ Neurological: Yes: Oriented Psychiatric: Yes: Oriented Labs: CBC, BMP 08/14/17 05:30 08/14/17 05:30 INR, PTT INR 4.04 (0.82-1.09) H* D 08/14/17 05:30 Problem List - Problems (1) ESRD (end stage renal disease) Code(s): N18.6 - END STAGE RENAL DISEASE (2) Pericardial effusion Code(s): I31.3 - PERICARDIAL EFFUSION (NONINFLAMMATORY) (3) Hypotension Code(s): I95.9 - HYPOTENSION, UNSPECIFIED Qualifiers: Hypotension type: other hypotension type Qualified Code(s): I95.89 - Other hypotension (4) Hypothyroid Code(s): E03.9 - HYPOTHYROIDISM, UNSPECIFIED Qualifiers: Hypothyroidism type: unspecified Qualified Code(s): E03.9 - Hypothyroidism , unspecified (5) Atrial fibrillation Code(s): I48.91 - UNSPECIFIED ATRIAL FIBRILLATION Qualifiers: Atrial fibrillation type: unspecified Qualified Code(s): I48.91 - Unspecified atrial fibrillation (6) Open wound of foot Code(s): S91.309A - UNSPECIFIED OPEN WOUND, UNSPECIFIED FOOT, INITIAL ENCOUNTER Qualifiers: Encounter type: subsequent encounter Laterality: right Qualified Code(s) : S91.301D - Unspecified open wound, right foot, subsequent encounter Assessment/Plan Current Medications Generic Name Dose Route Start Last Admin Trade Name Freq PRN Reason Stop Dose Admin Acetaminophen 650 mg 08/11/17 23:29 08/14/17 05:40 Tylenol - PO 650 mg Q6H PRN Administration FEVER Collagenase 1 applic 08/12/17 10:00 08/14/17 11:05 Santyl - TP Not Given DAILY [facility] Protocol Guaifenesin 5 ml 08/11/17 23:29 Diabetic Tussin Dm - PO Q6H PRN COUGH Clindamycin Phosphate 600 mg in 50 mls @ 100 mls/hr 08/11/17 15:15 08/14/17 10:25 Cleocin 600 Mg Premix Ivpb - IVPB 100 mls/hr Q8H-IV [facility] Administration Protocol Piperacillin Sod/Tazobactam 50 mls @ 100 mls/hr 08/12/17 02:00 08/14/17 10:25 Sod 2.25 gm/ Dextrose IVPB 100 mls/hr Q8H-IV [facility] Administration Protocol Insulin Aspart 1 vial 08/12/17 07:00 08/14/17 12:13 Novolog Vial Sliding Scale - SQ Not Given ACHS [facility] Protocol Levothyroxine Sodium 75 mcg 08/12/17 07:00 08/14/17 06:34 Synthroid - PO 75 mcg DAILY@0700 [facility] Administration Losartan Potassium 25 mg 08/13/17 12:30 08/14/17 11:05 Cozaar - PO Not Given DAILY [facility] Melatonin 5 mg 08/11/17 23:29 08/12/17 02:24 Melatonin PO 5 mg HS PRN Administration INSOMNIA Metoprolol Succinate 12.5 mg 08/13/17 10:00 08/14/17 11:05 Toprol Xl - PO Not Given DAILY [facility] Morphine Sulfate 2 mg 08/11/17 15:24 08/14/17 05:40 Morphine Sulfate IVPUSH 2 mg Q4H PRN Administration PAIN LEVEL 7 - 10 Mupirocin 1 applic 08/11/17 22:00 08/14/17 11:04 Bactroban 2% Ointment - TP Not Given BID [facility] Warfarin Sodium 2 mg 08/13/17 18:00 08/13/17 18:06 Coumadin - PO 2 mg DAILY@1800 [facility] Administration Impression 1. ESRD 2. pericardial effusion 3. pneumopericardium 4. hypothyroidism 5. a-fib 6. hypotension 7. hx of colon cancer 8. CHF 9. DM 10. hx of PE 11. CAD Plan - HD in am - pt going for surgery today - cardiology follow up - renal diet and fluid restriction - discussed with medical team - monitor BP - abx per ID - will follow Dr Conklin
--- NOTE | 2017-08-14 15:51 | PN ---
Progress Note, Physician History of Present Illness: patient for or today patient ct scan seen his 4th metatarsal also involved podiatry going to take him to or still spiking fevers - Current Medication List Current Medications: Active Medications Acetaminophen (Tylenol -) 650 mg PO Q6H PRN PRN Reason: FEVER Last Admin: 08/14/17 05:40 Dose: 650 mg Collagenase (Santyl -) 1 applic TP DAILY [facility]; Protocol Last Admin: 08/14/17 11:05 Dose: Not Given Guaifenesin (Diabetic Tussin Dm -) 5 ml PO Q6H PRN PRN Reason: COUGH Clindamycin Phosphate (Cleocin 600 Mg Premix Ivpb -) 600 mg in 50 mls @ 100 mls /hr IVPB Q8H-IV [facility]; Protocol Last Admin: 08/14/17 10:25 Dose: 100 mls/hr Piperacillin Sod/Tazobactam (Sod 2.25 gm/ Dextrose) 50 mls @ 100 mls/hr IVPB Q8H-IV [facility]; Protocol Last Admin: 08/14/17 10:25 Dose: 100 mls/hr Insulin Aspart (Novolog Vial Sliding Scale -) 1 vial SQ ACHS [facility]; Protocol Last Admin: 08/14/17 12:13 Dose: Not Given Levothyroxine Sodium (Synthroid -) 75 mcg PO DAILY@0700 [facility] Last Admin: 08/14/17 06:34 Dose: 75 mcg Losartan Potassium (Cozaar -) 25 mg PO DAILY [facility] Last Admin: 08/14/17 11:05 Dose: Not Given Melatonin (Melatonin) 5 mg PO HS PRN PRN Reason: INSOMNIA Last Admin: 08/12/17 02:24 Dose: 5 mg Metoprolol Succinate (Toprol Xl -) 12.5 mg PO DAILY [facility] Last Admin: 08/14/17 11:05 Dose: Not Given Morphine Sulfate (Morphine Sulfate) 2 mg IVPUSH Q4H PRN PRN Reason: PAIN LEVEL 7 - 10 Last Admin: 08/14/17 05:40 Dose: 2 mg Mupirocin (Bactroban 2% Ointment -) 1 applic TP BID [facility] Last Admin: 08/14/17 11:04 Dose: Not Given Warfarin Sodium (Coumadin -) 2 mg PO DAILY@1800 [facility] Last Admin: 08/13/17 18:06 Dose: 2 mg - Objective Vital Signs: Vital Signs Temperature 98.4 F 08/14/17 15:48 Pulse Rate 66 08/14/17 15:48 Respiratory Rate 22 08/14/17 15:48 Blood Pressure 86/51 08/14/17 15:48 O2 Sat by Pulse Oximetry (%) 99 08/14/17 09:00 Constitutional: Yes: No Distress, Calm Cardiovascular: Yes: Regular Rate and Rhythm Respiratory: Yes: Regular, CTA Bilaterally Gastrointestinal: Yes: Normal Bowel Sounds, Soft Musculoskeletal: Yes: WNL Extremities: Yes: Other Wound/Incision: Yes: Draining Neurological: Yes: Alert, Oriented Psychiatric: Yes: Alert, Oriented Labs: CBC, BMP 08/14/17 05:30 08/14/17 05:30 INR, PTT INR 4.04 (0.82-1.09) H* D 08/14/17 05:30 Assessment/Plan patient coming in a type of sepsis picture i think his invection is coming from the wound itself he has multiple other issues Problem List - Problems (1) Atrial fibrillation Code(s): I48.91 - UNSPECIFIED ATRIAL FIBRILLATION Qualifiers: Atrial fibrillation type: unspecified Qualified Code(s): I48.91 - Unspecified atrial fibrillation (2) Cardiomyopathy Code(s): I42.9 - CARDIOMYOPATHY, UNSPECIFIED Qualifiers: Cardiomyopathy type: unspecified Qualified Code(s): I42.9 - Cardiomyopathy , unspecified (3) Cellulitis of right lower extremity Code(s): L03.115 - CELLULITIS OF RIGHT LOWER LIMB (4) ESRD (end stage renal disease) Code(s): N18.6 - END STAGE RENAL DISEASE (5) Hypotension Code(s): I95.9 - HYPOTENSION, UNSPECIFIED Qualifiers: Hypotension type: other hypotension type Qualified Code(s): I95.89 - Other hypotension (6) Hypothyroid Code(s): E03.9 - HYPOTHYROIDISM, UNSPECIFIED Qualifiers: Hypothyroidism type: unspecified Qualified Code(s): E03.9 - Hypothyroidism , unspecified (7) ICD (implantable cardioverter-defibrillator) in place Code(s): Z95.810 - PRESENCE OF AUTOMATIC (IMPLANTABLE) CARDIAC DEFIBRILLATOR (8) Open wound of foot Code(s): S91.309A - UNSPECIFIED OPEN WOUND, UNSPECIFIED FOOT, INITIAL ENCOUNTER Qualifiers: Encounter type: initial encounter Laterality: right Qualified Code(s): S91.301A - Unspecified open wound, right foot, initial encounter plan continue abx for or today will get cx from the or rest as per the team
[2017-08-14] MEDS ORDERED: BUPIVACAINE HCL/PF 0.5% (5MG/ML) 10 ML VIAL ONE (16:34)
[2017-08-14] MEDS ORDERED: PROPOFOL 20 ML ONE (17:10)
[2017-08-14] MEDS ORDERED: MIDAZOLAM HCL 2 MG/2 ML SINGLE DOSE VIAL ONE (17:11)
[2017-08-14] MEDS ORDERED: PROMETHAZINE HCL 25 MG/1 ML VIAL IVPUSH PRN ×2 (17:20→18:20)
[2017-08-14] MEDS ORDERED: ONDANSETRON 4 MG/2 ML VIAL IVPUSH PRN ×2 (17:20→18:20)
[2017-08-14] MEDS ORDERED: BUPIVACAINE HCL/PF 0.5% (5MG/ML) 10 ML VIAL IJ ONE (17:24)
[2017-08-14] MEDS ORDERED: SODIUM CHLORIDE 1,000 ML IV SCH ×2 (17:30→18:20)
[2017-08-14] MEDS ORDERED: MELATONIN 5 MG TABLETS PO PRN (18:20)
[2017-08-14] MEDS ORDERED: guaiFENesin/D-M SUGAR-FREE/ACLHOL-FREE 118 ML BOTTLE PO PRN (18:20)
[2017-08-14] MEDS ORDERED: HEPARIN NA (PORCINE) 5,000 UNITS/ML 1ML VIAL IVPUSH ONE (18:20)
[2017-08-14] MEDS ORDERED: CLINDAMYCIN PHOSPHATE 600 MG/4 ML VIAL ONE (19:15)
[2017-08-14] MEDS ORDERED: CLINDAMYCIN PHOSPHATE 600 MG/4 ML VIAL IVPB ONE (19:15)
--- NOTE | 2017-08-14 19:30 | OP ---
Operative Note - Note: Operative Date: 08/14/17 Pre-Operative Diagnosis: [place] right foot Operation: debridement of bone and soft tissue toes 4&5 right with amputation of toes 4&5. Findings: ischemic foot necrotic bone, foul odor, +clear drainage, Implants: /" plain packing Post-Operative Diagnosis: Same as Pre-op Surgeon: Adrianne Davila Anesthesiologist/ASSISTANT LOAN PROCESSOR: Kassandra Stuart Anesthesia: Local, MAC Specimens Removed: necrotic bone and soft tissue Estimated Blood Loss (mls): 2 (ischemic) Instrument used (Debridements only): knife Operative Report Dictated: No
[2017-08-14] MEDS: ISOSORBIDE DINITRATE 20 MG TABLET (FP) PO SCH (19:48)
--- NOTE | 2017-08-14 21:41 | PN ---
Progress Note (short form) - Note Progress Note: Patient is s/p toe amputation. Dr. Davila did not see adequate bleeding to suggest intact arterial flow to the fore foot. Plans for angiogram of the right leg to be made this week. Problem List - Problems (1) Open wound of foot Code(s): S91.309A - UNSPECIFIED OPEN WOUND, UNSPECIFIED FOOT, INITIAL ENCOUNTER Qualifiers: Encounter type: subsequent encounter Laterality: right Qualified Code(s) : S91.301D - Unspecified open wound, right foot, subsequent encounter
[2017-08-15] MEDS ORDERED: PIPERACILLIN/TAZOBACTAM 2.25 GM VIAL IVPB ONE ×4 (01:11→19:04)
[2017-08-15] MEDS ORDERED: DEXTROSE 5%-WATER - 50 ML IVPB ONE ×2 (01:12→18:44)
[2017-08-15] MEDS ORDERED: CLINDAMYCIN 600MG PREMIX IVPB 600 MG/50 ML BAG IVPB SCH (02:00)
[2017-08-15] MEDS: PIPERACILLIN/TAZOB 2.25 GM 2.25 GM in DEXTROSE 5%-WATER - 50 ML IVPB SCH ×3 (02:30→18:13)
[2017-08-15] MEDS: MORPHINE SULFATE 2 MG/ML VIAL IVPUSH PRN ×4 (06:12→22:55)
[2017-08-15] MEDS: INSULIN SLIDING SCALE (NOVOLOG) 1 VIAL SQ SCH ×4 (06:15→22:50)
[2017-08-15] MEDS ORDERED: LEVOTHYROXINE NA 75 MCG TABLET (FP) PO SCH (07:00)
[2017-08-15 08:04] LABS: BASO % 0.8 % (0-2.0); EOS % 1.3 % (0-4.5); HEMATOCRIT 36.1 % (35.4-49); HEMOGLOBIN 11.6 GM/dL (11.7-16.9); LYMPH % 4.4 % (8-40); MCH 28.6 pg (25.7-33.7); MCHC 32.1 g/dl (32.0-35.9); MEAN CELL VOLUME 88.9 fl (80-96); MEAN PLT VOLUME 9.2 fl (7.5-11.1); MONO % 9.9 % (3.8-10.2); NEUT % 83.6 % (42.8-82.8); PLATELET COUNT 200 K/MM3 (134-434); RBC 4.06 M/mm3 (4.00-5.60); RDW 20.8 % (11.9-15.9); WHITE BLOOD COUNT 12.2 K/mm3 (4.0-10.0)
--- NOTE | 2017-08-15 08:41 | PN ---
Progress Note (short form) - Note Progress Note: Chief Complaint: Events noted, notes reviewed, denies nay chest pain or dyspnea History of Present Illness: Seen and examined on telemetry. Events noted, notes reviewed, denies nay chest pain or dyspnea POD day # 1 post debridement of bone and soft tissue toes 4&5 right with amputation of toes 4&5 Plan to proceed with angiography for further evaluation of PAD - Current Medication List Current Medications Acetaminophen (Tylenol -) 650 mg PO Q6H PRN PRN Reason: FEVER Last Admin: 08/14/17 21:59 Dose: 650 mg Guaifenesin (Diabetic Tussin Dm -) 5 ml PO Q6H PRN PRN Reason: COUGH Heparin Sodium (Porcine) (Heparin -) 1,000 unit IVPUSH ONCE ONE Stop: 08/14/17 18:21 Clindamycin Phosphate (Cleocin 600 Mg Premix Ivpb -) 600 mg in 50 mls @ 100 mls /hr IVPB Q8H-IV [facility]; Protocol Last Admin: 08/15/17 01:24 Dose: 100 mls/hr Piperacillin Sod/Tazobactam (Sod 2.25 gm/ Dextrose) 50 mls @ 100 mls/hr IVPB Q8H-IV [facility]; Protocol Last Admin: 08/15/17 02:30 Dose: 100 mls/hr Sodium Chloride (Normal Saline -) 1,000 mls @ 42 mls/hr IV [facility]IR [facility] Last Admin: 08/14/17 21:00 Dose: 42 mls/hr Insulin Aspart (Novolog Vial Sliding Scale -) 1 vial SQ ACHS [facility]; Protocol Last Admin: 08/15/17 06:15 Dose: Not Given Isosorbide Dinitrate (Isordil -) 20 mg PO BIDISORDIL [facility] Last Admin: 08/14/17 19:48 Dose: 20 mg Levothyroxine Sodium (Synthroid -) 75 mcg PO DAILY@0700 [facility] Last Admin: 08/15/17 06:15 Dose: 75 mcg Losartan Potassium (Cozaar -) 25 mg PO DAILY [facility] Melatonin (Melatonin) 5 mg PO HS PRN PRN Reason: INSOMNIA Metoprolol Succinate (Toprol Xl -) 12.5 mg PO DAILY [facility] Morphine Sulfate (Morphine Sulfate) 2 mg IVPUSH Q4H PRN PRN Reason: PAIN LEVEL 7 - 10 Last Admin: 08/15/17 06:12 Dose: 2 mg Warfarin Sodium (Coumadin -) 2 mg PO DAILY@1800 [facility] - Review of Systems Constitutional: denies: Chills, Fever Cardiovascular: As noted above Respiratory: denies: Cough or Sputum Production Gastrointestinal: denies: Nausea, Vomiting, Diarrhea, Constipation or Abdominal Pain Genitourinary: HD Neurological: denies: Dizziness or Headaches Endocrine: denies: Intolerance to Cold, Intolerance to Heat - Objective Vital Signs: Last Vital Signs Temp Pulse Resp BP Pulse Ox 98.4 F 67 18 102/58 100 08/15/17 06:45 08/15/17 08:20 08/15/17 08:20 08/15/17 08:20 08/14/17 21:00 Intake & Output 08/12/17 08/13/17 08/14/17 08/15/17 23:59 23:59 23:59 23:59 Intake Total 325 387 760 522 Balance 325 387 760 522 Weight 211 lb 204 lb 9.6 oz 203 lb 12.8 oz HENT: Atraumatic Neck: Supple Cardiovascular: S1 S2 Regular Rate and Rhythm Respiratory: CTA Bilaterally Gastrointestinal: Soft benign Normal Bowel Sounds Ext: Trace Edema Dressing in Situ Labs: CBC, BMP 08/15/17 07:50 08/14/17 05:30 INR, PTT INR 4.04 (0.82-1.09) H* D 08/14/17 05:30 Assessment/Plan ASSESSMENT: 1. Ischemic dilated cardiomyopathy with chronic class I-II NYHA classification LV failure, compensated/euvolemic 2. Post prohylactic ICD implant 3. CAD post MA with evidence of demand ischemic injury angina pectoris 4. Persistent atrial fibrillation [id number] score of 3-4 on Coumadin with supra-therapeutic INR 5. Pericardial effusion probably uremic pericarditis 6. 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 7. PAD for further evaluation 8. Hypothyroidism 9. History of PTE 10. History of colon cancer 11. 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 Antibiotics as per the primary team 2. HD as per renal service 3. Resume Coumadin as per INR pending completion of vascular intervention in the interim consider Heparin 4. Continue Toprol XL 5. Initiate Entresto in substitution for Losartan as hemodynamics permit/ tolerate, outcome data 6. Plan to proceed with vascular evaluation as planned Rafaela Aguilar MD
--- NOTE | 2017-08-15 08:54 | PN ---
Progress Note, Physician History of Present Illness: stable no fever post op patient doing well being dialysed - Current Medication List Current Medications: Active Medications Acetaminophen (Tylenol -) 650 mg PO Q6H PRN PRN Reason: FEVER Last Admin: 08/14/17 21:59 Dose: 650 mg Guaifenesin (Diabetic Tussin Dm -) 5 ml PO Q6H PRN PRN Reason: COUGH Heparin Sodium (Porcine) (Heparin -) 1,000 unit IVPUSH ONCE ONE Stop: 08/14/17 18:21 Clindamycin Phosphate (Cleocin 600 Mg Premix Ivpb -) 600 mg in 50 mls @ 100 mls /hr IVPB Q8H-IV [facility]; Protocol Last Admin: 08/15/17 01:24 Dose: 100 mls/hr Piperacillin Sod/Tazobactam (Sod 2.25 gm/ Dextrose) 50 mls @ 100 mls/hr IVPB Q8H-IV [facility]; Protocol Last Admin: 08/15/17 02:30 Dose: 100 mls/hr Sodium Chloride (Normal Saline -) 1,000 mls @ 42 mls/hr IV [facility] Last Admin: 08/14/17 21:00 Dose: 42 mls/hr Insulin Aspart (Novolog Vial Sliding Scale -) 1 vial SQ ACHS [facility]; Protocol Last Admin: 08/15/17 06:15 Dose: Not Given Isosorbide Dinitrate (Isordil -) 20 mg PO BIDISORDIL [facility] Last Admin: 08/14/17 19:48 Dose: 20 mg Levothyroxine Sodium (Synthroid -) 75 mcg PO DAILY@0700 [facility] Last Admin: 08/15/17 06:15 Dose: 75 mcg Melatonin (Melatonin) 5 mg PO HS PRN PRN Reason: INSOMNIA Metoprolol Succinate (Toprol Xl -) 12.5 mg PO DAILY [facility] Morphine Sulfate (Morphine Sulfate) 2 mg IVPUSH Q4H PRN PRN Reason: PAIN LEVEL 7 - 10 Last Admin: 08/15/17 06:12 Dose: 2 mg Sacubitril/Valsartan (Entresto 24 Mg-26 Mg Tablet) 1 tab PO BID [facility] Warfarin Sodium (Coumadin -) 2 mg PO DAILY@1800 [facility] - Objective Vital Signs: Vital Signs Temperature 98.4 F 08/15/17 06:45 Pulse Rate 67 08/15/17 08:20 Respiratory Rate 18 08/15/17 08:20 Blood Pressure 102/58 08/15/17 08:20 O2 Sat by Pulse Oximetry (%) 100 08/14/17 21:00 Constitutional: Yes: No Distress, Calm Cardiovascular: Yes: Regular Rate and Rhythm Respiratory: Yes: Regular, CTA Bilaterally Gastrointestinal: Yes: Normal Bowel Sounds, Soft Musculoskeletal: Yes: WNL Extremities: Yes: Other Wound/Incision: Yes: Dressing Dry and Intact Neurological: Yes: Alert, Oriented Psychiatric: Yes: Alert, Oriented Labs: CBC, BMP 08/15/17 07:50 08/14/17 05:30 INR, PTT INR 4.04 (0.82-1.09) H* D 08/14/17 05:30 Assessment/Plan patient coming in a type of sepsis picture i think his invection is coming from the wound itself he has multiple other issues Problem List - Problems (1) Atrial fibrillation Code(s): I48.91 - UNSPECIFIED ATRIAL FIBRILLATION Qualifiers: Atrial fibrillation type: unspecified Qualified Code(s): I48.91 - Unspecified atrial fibrillation (2) Cardiomyopathy Code(s): I42.9 - CARDIOMYOPATHY, UNSPECIFIED Qualifiers: Cardiomyopathy type: unspecified Qualified Code(s): I42.9 - Cardiomyopathy , unspecified (3) Cellulitis of right lower extremity Code(s): L03.115 - CELLULITIS OF RIGHT LOWER LIMB (4) ESRD (end stage renal disease) Code(s): N18.6 - END STAGE RENAL DISEASE (5) Hypotension Code(s): I95.9 - HYPOTENSION, UNSPECIFIED Qualifiers: Hypotension type: other hypotension type Qualified Code(s): I95.89 - Other hypotension (6) Hypothyroid Code(s): E03.9 - HYPOTHYROIDISM, UNSPECIFIED Qualifiers: Hypothyroidism type: unspecified Qualified Code(s): E03.9 - Hypothyroidism , unspecified (7) ICD (implantable cardioverter-defibrillator) in place Code(s): Z95.810 - PRESENCE OF AUTOMATIC (IMPLANTABLE) CARDIAC DEFIBRILLATOR (8) Open wound of foot Code(s): S91.309A - UNSPECIFIED OPEN WOUND, UNSPECIFIED FOOT, INITIAL ENCOUNTER Qualifiers: Encounter type: initial encounter Laterality: right Qualified Code(s): S91.301A - Unspecified open wound, right foot, initial encounter plan continue abx await for cx report timmons top clinda continue zosyn rest as per the team
--- NOTE | 2017-08-15 09:21 | PN ---
Progress Note (short form) - Note Progress Note: Patient is POD #1 s/p debridement of bone and soft tissue toes 4&5 right with amputation of toes 4&5 by SAMUEL Davila Per conversation he had with Dr. Cope, insufficient blood flow to foot during operative procedure. He will need angio this week. Awaiting to hear back from Dr. Cope as to when he can perform procedure. Cont medical management / Medical optimization for impending procedure
[2017-08-15 09:26] LABS: ANISOCYTOSIS 1+; MACROCYTOSIS 1+; OVALOCYTE 1+; PLATELET ESTIMATE NORMAL; TARGET CELLS 1+
[2017-08-15] MEDS ORDERED: LOSARTAN POTASSIUM 25 MG TABLET PO SCH ×2 (10:00)
[2017-08-15] MEDS ORDERED: metoPROLOL SUCCINATE 25 MG TAB.SR.24H (FP) PO SCH (10:00)
[2017-08-15] MEDS ORDERED: SACUBITRIL/VALSARTAN 24 MG-26 MG TABLET PO SCH (10:00)
[2017-08-15] MEDS: ACETAMINOPHEN 325 MG TABLET (FP) PO PRN (10:00)
[2017-08-15] MEDS: ISOSORBIDE DINITRATE 20 MG TABLET (FP) PO SCH ×2 (10:05→18:12)
[2017-08-15] MEDS ORDERED: PT OWN MED DRAWER 7, Y5N ONE ×2 (10:05→12:03)
--- NOTE | 2017-08-15 10:44 | PN ---
Progress Note, Physician Chief Complaint: Pt getting dialysis currently. No anesthesia complaints. - Current Medication List Current Medications: Active Medications Acetaminophen (Tylenol -) 650 mg PO Q6H PRN PRN Reason: FEVER Last Admin: 08/15/17 10:00 Dose: 650 mg Guaifenesin (Diabetic Tussin Dm -) 5 ml PO Q6H PRN PRN Reason: COUGH Heparin Sodium (Porcine) (Heparin -) 1,000 unit IVPUSH ONCE ONE Stop: 08/14/17 18:21 Piperacillin Sod/Tazobactam (Sod 2.25 gm/ Dextrose) 50 mls @ 100 mls/hr IVPB Q8H-IV [facility]; Protocol Last Admin: 08/15/17 10:00 Dose: 100 mls/hr Sodium Chloride (Normal Saline -) 1,000 mls @ 42 mls/hr IV ASD[facility] Last Admin: 08/14/17 21:00 Dose: 42 mls/hr Insulin Aspart (Novolog Vial Sliding Scale -) 1 vial SQ ACHS [facility]; Protocol Last Admin: 08/15/17 06:15 Dose: Not Given Isosorbide Dinitrate (Isordil -) 20 mg PO BIDISORDIL [facility] Last Admin: 08/15/17 10:05 Dose: 20 mg Levothyroxine Sodium (Synthroid -) 75 mcg PO DAILY@0700 [facility] Last Admin: 08/15/17 06:15 Dose: 75 mcg Melatonin (Melatonin) 5 mg PO HS PRN PRN Reason: INSOMNIA Metoprolol Succinate (Toprol Xl -) 12.5 mg PO DAILY [facility] Last Admin: 08/15/17 10:01 Dose: 12.5 mg Morphine Sulfate (Morphine Sulfate) 2 mg IVPUSH Q4H PRN PRN Reason: PAIN LEVEL 7 - 10 Last Admin: 08/15/17 10:03 Dose: 2 mg Sacubitril/Valsartan (Entresto 24 Mg-26 Mg Tablet) 1 tab PO BID [facility] Last Admin: 08/15/17 10:34 Dose: Not Given Warfarin Sodium (Coumadin -) 2 mg PO DAILY@1800 [facility] - Objective Vital Signs: Vital Signs Temperature 98.4 F 08/15/17 06:45 Pulse Rate 68 08/15/17 10:10 Respiratory Rate 18 08/15/17 10:10 Blood Pressure 92/55 08/15/17 10:10 O2 Sat by Pulse Oximetry (%) 100 08/14/17 21:00 Constitutional: Yes: Well Nourished, No Distress, Calm Musculoskeletal: Yes: WNL Neurological: Yes: WNL, Alert, Oriented ...Motor Strength: WNL Labs: CBC, BMP 08/15/17 07:50 08/14/17 05:30 INR, PTT INR 4.04 (0.82-1.09) H* D 08/14/17 05:30 Assessment/Plan POD#1 s/p right foot amputation of 4th and 5th toe under MAC. Doing well. D/C from anesthesia care.
[2017-08-15] MEDS ORDERED: MORPHINE SULFATE 2 MG/ML VIAL IVPUSH STA (12:11)
[2017-08-15] MEDS ORDERED: morphine CARPU-JECT 2 MG/1 ML DISP.SYRIN IVPUSH STA (12:11)
[2017-08-15] MEDS ORDERED: oxyCODONE HCL 5 MG TABLET PO PRN (12:12)
[2017-08-15] MEDS ORDERED: LIDOCAINE HCL 1%, 10 MG/ML (20ML VIAL) ONE (13:55)
[2017-08-15] MEDS ORDERED: HEPARIN NA (PORCINE) 5,000 UNITS/ML 1ML VIAL ONE ×3 (13:55→20:09)
--- NOTE | 2017-08-15 15:34 | PN ---
Progress Note, Physician History of Present Illness: Pt seen and examined at bedside. He is awake and alert. He tolerated HD today. He is going for an angio possibly today. - Current Medication List Current Medications: Active Medications Acetaminophen (Tylenol -) 650 mg PO Q6H PRN PRN Reason: FEVER Last Admin: 08/15/17 10:00 Dose: 650 mg Guaifenesin (Diabetic Tussin Dm -) 5 ml PO Q6H PRN PRN Reason: COUGH Heparin Sodium (Porcine) (Heparin -) 1,000 unit IVPUSH ONCE ONE Stop: 08/14/17 18:21 Piperacillin Sod/Tazobactam (Sod 2.25 gm/ Dextrose) 50 mls @ 100 mls/hr IVPB Q8H-IV [facility]; Protocol Last Admin: 08/15/17 10:00 Dose: 100 mls/hr Sodium Chloride (Normal Saline -) 1,000 mls @ 42 mls/hr IV ASDIR [facility] Last Admin: 08/14/17 21:00 Dose: 42 mls/hr Insulin Aspart (Novolog Vial Sliding Scale -) 1 vial SQ ACHS [facility]; Protocol Last Admin: 08/15/17 11:46 Dose: Not Given Isosorbide Dinitrate (Isordil -) 20 mg PO BIDISORDIL [facility] Last Admin: 08/15/17 10:05 Dose: 20 mg Levothyroxine Sodium (Synthroid -) 75 mcg PO DAILY@0700 [facility] Last Admin: 08/15/17 06:15 Dose: 75 mcg Melatonin (Melatonin) 5 mg PO HS PRN PRN Reason: INSOMNIA Metoprolol Succinate (Toprol Xl -) 12.5 mg PO DAILY [facility] Last Admin: 08/15/17 10:01 Dose: 12.5 mg Morphine Sulfate (Morphine Sulfate) 2 mg IVPUSH Q4H PRN PRN Reason: PAIN LEVEL 7 - 10 Last Admin: 08/15/17 14:10 Dose: 2 mg Oxycodone HCl (Roxicodone -) 5 mg PO Q4H PRN PRN Reason: PAIN LEVEL 4 - 6 Last Admin: 08/15/17 12:23 Dose: 5 mg Sacubitril/Valsartan (Entresto 24 Mg-26 Mg Tablet) 1 tab PO BID [facility] Last Admin: 08/15/17 10:34 Dose: Not Given Warfarin Sodium (Coumadin -) 2 mg PO DAILY@1800 [facility] - Objective Vital Signs: Vital Signs Temperature 97.9 F 08/15/17 14:00 Pulse Rate 65 08/15/17 14:00 Respiratory Rate 18 08/15/17 10:10 Blood Pressure 85/51 08/15/17 14:00 O2 Sat by Pulse Oximetry (%) 100 08/15/17 09:00 Constitutional: Yes: Calm Eyes: Yes: Conjunctiva Clear HENT: Yes: Atraumatic Neck: Yes: Supple Cardiovascular: Yes: S1, S2 Respiratory: Yes: CTA Bilaterally Gastrointestinal: Yes: Normal Bowel Sounds, Soft Genitourinary: Yes: WNL Extremities: Yes: Other (s/p amputation of right 4th and 5th toe) Neurological: Yes: Oriented Psychiatric: Yes: Oriented Labs: CBC, BMP 08/15/17 07:50 08/14/17 05:30 INR, PTT INR 4.04 (0.82-1.09) H* D 08/14/17 05:30 Problem List - Problems (1) ESRD (end stage renal disease) Code(s): N18.6 - END STAGE RENAL DISEASE (2) Pericardial effusion Code(s): I31.3 - PERICARDIAL EFFUSION (NONINFLAMMATORY) (3) Hypotension Code(s): I95.9 - HYPOTENSION, UNSPECIFIED Qualifiers: Hypotension type: other hypotension type Qualified Code(s): I95.89 - Other hypotension (4) Hypothyroid Code(s): E03.9 - HYPOTHYROIDISM, UNSPECIFIED Qualifiers: Hypothyroidism type: unspecified Qualified Code(s): E03.9 - Hypothyroidism , unspecified (5) Atrial fibrillation Code(s): I48.91 - UNSPECIFIED ATRIAL FIBRILLATION Qualifiers: Atrial fibrillation type: unspecified Qualified Code(s): I48.91 - Unspecified atrial fibrillation (6) Open wound of foot Code(s): S91.309A - UNSPECIFIED OPEN WOUND, UNSPECIFIED FOOT, INITIAL ENCOUNTER Qualifiers: Encounter type: subsequent encounter Laterality: right Qualified Code(s) : S91.301D - Unspecified open wound, right foot, subsequent encounter Assessment/Plan Current Medications Generic Name Dose Route Start Last Admin Trade Name Freq PRN Reason Stop Dose Admin Acetaminophen 650 mg 08/14/17 18:20 08/15/17 10:00 Tylenol - PO 650 mg Q6H PRN Administration FEVER Guaifenesin 5 ml 08/14/17 18:20 Diabetic Tussin Dm - PO Q6H PRN COUGH Heparin Sodium (Porcine) 1,000 unit 08/14/17 18:20 Heparin - IVPUSH 08/14/17 18:21 ONCE ONE Piperacillin Sod/Tazobactam 50 mls @ 100 mls/hr 08/15/17 02:00 08/15/17 10:00 Sod 2.25 gm/ Dextrose IVPB 100 mls/hr Q8H-IV [facility] Administration Protocol Sodium Chloride 1,000 mls @ 42 mls/hr 08/14/17 18:20 08/14/17 21:00 Normal Saline - IV 42 mls/hr [facility] Administration Insulin Aspart 1 vial 08/14/17 22:00 08/15/17 11:46 Novolog Vial Sliding Scale - SQ Not Given ACHS [facility] Protocol Isosorbide Dinitrate 20 mg 08/14/17 18:45 08/15/17 10:05 Isordil - PO 20 mg BIDISORDIL [facility] Administration Levothyroxine Sodium 75 mcg 08/15/17 07:00 08/15/17 06:15 Synthroid - PO 75 mcg DAILY@0700 [facility] Administration Melatonin 5 mg 08/14/17 18:20 Melatonin PO HS PRN INSOMNIA Metoprolol Succinate 12.5 mg 08/15/17 10:00 08/15/17 10:01 Toprol Xl - PO 12.5 mg DAILY [facility] Administration Morphine Sulfate 2 mg 08/14/17 18:20 08/15/17 14:10 Morphine Sulfate IVPUSH 2 mg Q4H PRN Administration PAIN LEVEL 7 - 10 Oxycodone HCl 5 mg 08/15/17 12:12 08/15/17 12:23 Roxicodone - PO 5 mg Q4H PRN Administration PAIN LEVEL 4 - 6 Sacubitril/Valsartan 1 tab 08/15/17 10:00 08/15/17 10:34 Entresto 24 Mg-26 Mg Tablet PO Not Given BID [facility] Warfarin Sodium 2 mg 08/15/17 18:00 Coumadin - PO DAILY@1800 [facility] Impression 1. ESRD 2. pericardial effusion 3. pneumopericardium 4. hypothyroidism 5. a-fib 6. hypotension 7. hx of colon cancer 8. CHF 9. DM 10. hx of PE 11. CAD Plan - pt tolerated HD - please stop fluids - discussed with medical team - possible angio today - next HD on - cont wound care - abx per ID - will follow Dr Conklin
--- NOTE | 2017-08-15 15:37 | PN ---
Physical Exam: SUBJECTIVE: Patient seen and examined. He is having increased pain would like stronger pain medication. Denies fever, sob. OBJECTIVE: Vital Signs Period Temp Pulse Resp BP Sys/Yoon Pulse Ox Last 24 Hr 97.9 F-99.1 F 62-69 16-22 85-111/45-69 97-100 PE Neuro: alert, awake, cn 2-12intact Pulm: basilar crackles CV: s1 s2 rrr Abd: s nt nd + bs Ext: R foot tenderness, dressing CDI, RUE AVF + trill Laboratory Results - last 24 hr 08/15/17 08/15/17 08/15/17 06:07 06:15 07:50 WBC RBC Hgb Hct MCV MCH MCHC RDW Plt Count MPV Absolute Neuts (auto) Neutrophils % Neutrophils % (Manual) Band Neutrophils % Lymphocytes % Lymphocytes % (Manual) Monocytes % Monocytes % (Manual) Eosinophils % Eosinophils % (Manual) Basophils % Basophils % (Manual) Myelocytes % (Man) Promyelocytes % (Man) Blast Cells % (Manual) Nucleated RBC % Metamyelocytes Hypochromia Platelet Estimate Polychromasia Poikilocytosis Anisocytosis Microcytosis Macrocytosis Target Cells Ovalocytes PTT (Actin FS) 48.2 H POC Glucometer 98 Hemoglobin A1c % 4.9 Hep C Ab Diagnostic Liver Fibrosis Interp 08/15/17 08/15/17 07:50 11:45 WBC 12.2 H RBC 4.06 Hgb 11.6 L Hct 36.1 MCV 88.9 MCH 28.6 MCHC 32.1 RDW 20.8 H Plt Count 200 MPV 9.2 Absolute Neuts (auto) 10.2 Neutrophils % 83.6 H Neutrophils % (Manual) 76.8 Band Neutrophils % 2.0 Lymphocytes % 4.4 L D Lymphocytes % (Manual) 5.1 L Monocytes % 9.9 Monocytes % (Manual) 10 Eosinophils % 1.3 Eosinophils % (Manual) 3.0 D Basophils % 0.8 Basophils % (Manual) 0.0 Myelocytes % (Man) 0 Promyelocytes % (Man) 0 Blast Cells % (Manual) 0 Nucleated RBC % 0 Metamyelocytes 0 Hypochromia 1+ Platelet Estimate Normal Polychromasia 0 Poikilocytosis 0 Anisocytosis 1+ Microcytosis 1+ Macrocytosis 1+ Target Cells 1+ Ovalocytes 1+ PTT (Actin FS) POC Glucometer 121 Hemoglobin A1c % Hep C Ab Diagnostic Liver Fibrosis Interp Active Medications Generic Name Dose Route Start Last Admin Trade Name Vikramq PRN Reason Stop Dose Admin Acetaminophen 650 mg 08/14/17 18:20 08/15/17 10:00 Tylenol - PO 650 mg Q6H PRN Administration FEVER Guaifenesin 5 ml 08/14/17 18:20 Diabetic Tussin Dm - PO Q6H PRN COUGH Heparin Sodium (Porcine) 1,000 unit 08/14/17 18:20 Heparin - IVPUSH 08/14/17 18:21 ONCE ONE Piperacillin Sod/Tazobactam 50 mls @ 100 mls/hr 08/15/17 02:00 08/15/17 10:00 Sod 2.25 gm/ Dextrose IVPB 100 mls/hr Q8H-IV VIRAJ Administration Protocol Insulin Aspart 1 vial 08/14/17 22:00 08/15/17 11:46 Novolog Vial Sliding Scale - SQ Not Given ACHS [facility] Protocol Isosorbide Dinitrate 20 mg 08/14/17 18:45 08/15/17 10:05 Isordil - PO 20 mg BIDISORDIL VIRAJ Administration Levothyroxine Sodium 75 mcg 08/15/17 07:00 08/15/17 06:15 Synthroid - PO 75 mcg DAILY@0700 [facility] Administration Melatonin 5 mg 08/14/17 18:20 Melatonin PO HS PRN INSOMNIA Metoprolol Succinate 12.5 mg 08/15/17 10:00 08/15/17 10:01 Toprol Xl - PO 12.5 mg DAILY [facility]IR[facility] Administration Morphine Sulfate 2 mg 08/14/17 18:20 08/15/17 14:10 Morphine Sulfate IVPUSH 2 mg Q4H PRN Administration PAIN LEVEL 7 - 10 Oxycodone HCl 5 mg 08/15/17 12:12 08/15/17 12:23 Roxicodone - PO 5 mg Q4H PRN Administration PAIN LEVEL 4 - 6 Sacubitril/Valsartan 1 tab 08/15/17 10:00 08/15/17 10:34 Entresto 24 Mg-26 Mg Tablet PO Not Given BID VIRAJ Warfarin Sodium 2 mg 08/15/17 18:00 Coumadin - PO DAILY@1800 [facility] Imaging: Echo 08/10/17: Mildly dilated with severely decreased LV fx, mild to mod dilated with mod decreased RV fx, mod LAE, mild MR, TR, AR, moderate pericardial effusion. Chest CT: cardiomegaly with moderate pericardial effusion, small amt of pneumopericardium. Assessment: 72 year old male with pmhx CHF with left chest wall pace maker/AICD , diabetes mellitus, with neuropathy, hypertension, PE, ESRD on HD (T,Th,Mon) via right upper arm fistula, [place], colon cancer and atrial fibrillation presented with from HD with hypotension, chills, and sub therapeutic INR Plan: 1. Sepsis d/t R foot celluitis d/t gangrene - s/p debridement of bone and soft tissue toes 4&5 right with amputation of toes 4&5 7/2 - Due to poor blood flow will go for angiogram this afternoon - Stop Tatiana today - Continue zosyn 2. ESRD on HD T S - HD tomorrow d/t angio today - D/w Renal 3. CHF, s/p ppm/aicd - Conitnue HD 4. A fib, rate controlled - Toprol 12.5mg daily - Losartan 25mg post HD - Check INR in AM and dose for INR goal 2-3 5. DM II - ISS, BGM ACHS 6. hx of PE - No acute lung pathology Visit type - Emergency Visit Emergency Visit: Yes ED Registration Date: 08/10/17 Care time: The patient presented to the Emergency Department on the above date and was hospitalized for further evaluation of their emergent condition. - New Patient This patient is new to me today: No - Critical Care Critical Care patient: No
[2017-08-15 16:50] VITALS: BMI 29.9
[2017-08-15 17:38] LABS: INR 3.44 (0.82-1.09); PROTHROMBIN TIME (PATIENT) 38.9 SEC (9.7-13.0)
[2017-08-15] MEDS ORDERED: WARFARIN NA 2 MG TABLET (UD) PO SCH (18:00)
[2017-08-15] MEDS ORDERED: MIDAZOLAM HCL 2 MG/2 ML SINGLE DOSE VIAL ONE ×2 (18:29→18:57)
[2017-08-15] MEDS ORDERED: PROPOFOL 20 ML ONE ×2 (18:57→20:28)
[2017-08-15] MEDS ORDERED: ONDANSETRON 4 MG/2 ML VIAL IVPUSH PRN (21:07)
--- NOTE | 2017-08-15 21:07 | OP ---
Operative Note - Note: Operative Date: 08/15/17 Pre-Operative Diagnosis: Gangrene right 5th toe Operation: Revascularization right posterior tibial artery with atherectomy and angioplasty. Retrograde pedal cannulation with ultrasound Findings: Calcified arteries Patent femoral and popliteal Occluded AT distal to origin Occluded peroneal Occluded PT with distal reconstitution Post-Operative Diagnosis: Same as Pre-op Surgeon: Olvin Cope Anesthesiologist/THROUGH OPERATOR: Levi Walden Anesthesia: Fractional (CSI 1.25 mm, 3.0 mm balloon)
[2017-08-15] MEDS ORDERED: SODIUM CHLORIDE 1,000 ML IV SCH (21:15)
[2017-08-15] MEDS ORDERED: MELATONIN 5 MG TABLETS PO PRN (21:34)
[2017-08-15] MEDS ORDERED: guaiFENesin/D-M SUGAR-FREE/ACLHOL-FREE 118 ML BOTTLE PO PRN (21:34)
[2017-08-15] MEDS ORDERED: CLOPIDOGREL BISULFATE 75 MG TABLET (FP) ONE (22:09)
[2017-08-15] MEDS: CLOPIDOGREL BISULFATE 75 MG TABLET (FP) PO SCH (22:18)
--- NOTE | 2017-08-15 22:31 | PN ---
Progress Note (short form) - Note Progress Note: Patient seen in bed today. pod#1. no pain. vss +clean dry dressing, -breakthrough bleeding, wbc=12.2, tyoc0i=5.9 normal post op pvd Told patient about conversation with Dr. Cope. He understood that next step was to try to get more blood flow into the foot. Will follow. May go to bathroom with post op shoe on. Discussed with ID as well.
[2017-08-15] MEDS: SACUBITRIL/VALSARTAN 24 MG-26 MG TABLET PO SCH (22:50)
[2017-08-16] MEDS ORDERED: PIPERACILLIN/TAZOBACTAM 2.25 GM VIAL IVPB ONE ×3 (03:20→17:22)
[2017-08-16] MEDS ORDERED: DEXTROSE 5%-WATER - 50 ML IVPB ONE ×3 (03:20→17:22)
[2017-08-16] MEDS: PIPERACILLIN/TAZOB 2.25 GM 2.25 GM in DEXTROSE 5%-WATER - 50 ML IVPB SCH ×3 (03:35→17:25)
[2017-08-16] MEDS: ACETAMINOPHEN 325 MG TABLET (FP) PO PRN ×3 (03:42→20:04)
[2017-08-16] MEDS: INSULIN SLIDING SCALE (NOVOLOG) 1 VIAL SQ SCH ×4 (06:38→21:46)
[2017-08-16] MEDS: LEVOTHYROXINE NA 75 MCG TABLET (FP) PO SCH (06:40)
[2017-08-16 06:43] LABS: INR 3.01 (0.82-1.09)
--- NOTE | 2017-08-16 08:32 | PN ---
Physical Exam: SUBJECTIVE: Patient seen and examined at the bedside. Feels some pain on his right foot. Having anxiety over losing his toes. emotional support given. OBJECTIVE: xanax 0.25 x 1 now, morphine 2mg for pain levels 7-10, oxycodone for pain levels 4-6 Monitor pain, labs, vitals Surgical shoe with ambulation and nwb status Vital Signs Period Temp Pulse Resp BP Sys/Yoon Pulse Ox Last 24 Hr 97.9 F-99.0 F 60-68 12-22 85-102/51-65 96-100 GENERAL: The patient is awake, alert, and fully oriented, anxious HEAD: Normal with no signs of trauma. EYES: PERRL, extraocular movements intact, sclera anicteric, conjunctiva clear. No ptosis. ENT: Ears normal, nares patent, oropharynx clear without exudates, moist mucous membranes. NECK: Trachea midline, full range of motion, supple. LUNGS: Breath sounds equal, clear to auscultation bilaterally, no wheezes, no crackles, no accessory muscle use. ABDOMEN: Soft, nontender, nondistended, normoactive bowel sounds, no guarding, no rebound, no hepatosplenomegaly, no masses. EXTREMITIES: right foot bandage, c/d/i NEUROLOGICAL: Normal speech, gait not observed. PSYCH: Normal mood, normal affect. SKIN: Warm, dry, normal turgor, no rashes or lesions noted Laboratory Results - last 24 hr 08/14/17 08/15/17 08/15/17 19:08 06:15 07:50 Neutrophils % (Manual) Band Neutrophils % Lymphocytes % (Manual) Monocytes % (Manual) Eosinophils % (Manual) Basophils % (Manual) Myelocytes % (Man) Promyelocytes % (Man) Blast Cells % (Manual) Metamyelocytes Hypochromia Platelet Estimate Polychromasia Poikilocytosis Anisocytosis Microcytosis Macrocytosis Target Cells Ovalocytes PT with INR INR PTT (Actin FS) 48.2 H POC Glucometer 94 Hemoglobin A1c % 4.9 08/15/17 08/15/17 08/15/17 07:50 11:45 16:28 Neutrophils % (Manual) 76.8 Band Neutrophils % 2.0 Lymphocytes % (Manual) 5.1 L Monocytes % (Manual) 10 Eosinophils % (Manual) 3.0 D Basophils % (Manual) 0.0 Myelocytes % (Man) 0 Promyelocytes % (Man) 0 Blast Cells % (Manual) 0 Metamyelocytes 0 Hypochromia 1+ Platelet Estimate Normal Polychromasia 0 Poikilocytosis 0 Anisocytosis 1+ Microcytosis 1+ Macrocytosis 1+ Target Cells 1+ Ovalocytes 1+ PT with INR INR PTT (Actin FS) POC Glucometer 121 94 Hemoglobin A1c % 08/15/17 08/15/17 08/16/17 16:30 22:14 05:30 Neutrophils % (Manual) Band Neutrophils % Lymphocytes % (Manual) Monocytes % (Manual) Eosinophils % (Manual) Basophils % (Manual) Myelocytes % (Man) Promyelocytes % (Man) Blast Cells % (Manual) Metamyelocytes Hypochromia Platelet Estimate Polychromasia Poikilocytosis Anisocytosis Microcytosis Macrocytosis Target Cells Ovalocytes PT with INR 38.90 H 34.00 H INR 3.44 H 3.01 H PTT (Actin FS) POC Glucometer 100 Hemoglobin A1c % 08/16/17 05:37 Neutrophils % (Manual) Band Neutrophils % Lymphocytes % (Manual) Monocytes % (Manual) Eosinophils % (Manual) Basophils % (Manual) Myelocytes % (Man) Promyelocytes % (Man) Blast Cells % (Manual) Metamyelocytes Hypochromia Platelet Estimate Polychromasia Poikilocytosis Anisocytosis Microcytosis Macrocytosis Target Cells Ovalocytes PT with INR INR PTT (Actin FS) POC Glucometer 79 Hemoglobin A1c % Active Medications Generic Name Dose Route Start Last Admin Trade Name Freq PRN Reason Stop Dose Admin Acetaminophen 650 mg 08/15/17 21:34 08/16/17 03:42 Tylenol - PO 650 mg Q6H PRN Administration FEVER Clopidogrel Bisulfate 75 mg 08/15/17 21:15 08/15/17 22:18 Plavix - PO 75 mg DAILY VIRAJ Administration Guaifenesin 5 ml 08/15/17 21:34 Diabetic Tussin Dm - PO Q6H PRN COUGH Piperacillin Sod/Tazobactam 50 mls @ 100 mls/hr 08/16/17 02:00 08/16/17 03:35 Sod 2.25 gm/ Dextrose IVPB 100 mls/hr Q8H-IV [facility]IRAJ Administration Protocol Insulin Aspart 1 vial 08/15/17 22:00 08/16/17 06:38 Novolog Vial Sliding Scale - SQ Not Given ACHS [facility] Protocol Isosorbide Dinitrate 20 mg 08/16/17 10:00 Isordil - PO BIDISORDIL [facility] Levothyroxine Sodium 75 mcg 08/16/17 07:00 08/16/17 06:40 Synthroid - PO 75 mcg DAILY@0700 [facility] Administration Melatonin 5 mg 08/15/17 21:34 Melatonin PO HS PRN INSOMNIA Metoprolol Succinate 12.5 mg 08/16/17 10:00 Toprol Xl - PO DAILY [facility] Morphine Sulfate 2 mg 08/15/17 21:34 08/15/17 22:55 Morphine Sulfate IVPUSH 2 mg Q4H PRN Administration PAIN LEVEL 7 - 10 Oxycodone HCl 5 mg 08/15/17 21:34 Roxicodone - PO Q4H PRN PAIN LEVEL 4 - 6 Sacubitril/Valsartan 1 tab 08/15/17 22:00 08/15/17 22:50 Entresto 24 Mg-26 Mg Tablet PO Not Given BID [facility] Warfarin Sodium 2 mg 08/16/17 18:00 Coumadin - PO DAILY@1800 [facility] ASSESSMENT/PLAN: Patient is a 72 year old male with a significant past medical history of congestive heart failure with left chest wall pace maker/AICD, diabetes mellitus with neuropathy, hypertension, PE, ESRD on HD (T,Th,Sat) via right upper arm fistula, [place], colon cancer and atrial fibrillation. Patient presents to the ED from dialysis with a low blood pressure associated with chills during dialysis with a subtherapeutic INR. Imaging: Echo 08/10/17: Mildly dilated with severely decreased LV fx, mild to mod dilated with mod decreased RV fx, mod LAE, mild MR, TR, AR, moderate pericardial effusion. Chest CT: cardiomegaly with moderate pericardial effusion, small amt of pneumopericardium. ID: Sepsis likely secondary to right toe cellulitis: Blood and urine culture ngtd, wound cultures noted. On Zosyn. CT scan of lower right leg shows likely charcoat foot, erosion of the fifth digit. Patient has PM, unable to order MRI. ID following. Seen by vascular, patient POD#1 s/p debridement of bone and soft tissue with amputation of 4th and 5th digit on 08/14/17. Started on Plavix. Cardiology: CHF, Pacemaker/AICD, Hypertension: Hypotensive on admission, BP improving. Started on Toprol 12.5 daily, Losartan 25mg after HD, Entresto 24/26 BID, Isordil. Afib/subtherapeutic INR: s/p heparin drip. Now back on coumadin, INR 3.01. continue Coumadin as ordered. Moderate Pericardial effusion/Elevated trops: Cardiology following, monitor on tele. Further interventions per cardiology. Endocrine: 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: hmga1c 4.9, low bgms. renal diet ordered. check bgms BID. Pulm: PE history: CT chest as noted above Unable to order CTA. As per pulm, no lung path noted. No chest pain, not tachycardic. Echo reviewed. Renal: ESRD: Dialysis via right arm fistula. T,th,sat schedule FEN tolerating PO monitor electrolytes renal diet Prophy Coumadin Visit type - Emergency Visit Emergency Visit: Yes ED Registration Date: 08/10/17 Care time: The patient presented to the Emergency Department on the above date and was hospitalized for further evaluation of their emergent condition. - New Patient This patient is new to me today: No - Critical Care Critical Care patient: No - Discharge Referral Referred to [facility] No
[2017-08-16] MEDS ORDERED: ALPRAZolam 0.25 MG TABLET PO ONE (08:42)
[2017-08-16] MEDS ORDERED: morphine CARPU-JECT 2 MG/1 ML DISP.SYRIN IVPUSH PRN (08:46)
[2017-08-16] MEDS ORDERED: POLYETHYLENE GLYCOL 3350 119 GM BTL PO ONE (08:51)
[2017-08-16 08:56] LABS: EOS % 1.5 % (0-4.5); HEMOGLOBIN 10.5 GM/dL (11.7-16.9); LYMPH % 6.8 % (8-40); MCH 28.9 pg (25.7-33.7); MCHC 31.8 g/dl (32.0-35.9); MEAN PLT VOLUME 9.7 fl (7.5-11.1); MONO % 15.7 % (3.8-10.2); PLATELET COUNT 177 K/MM3 (134-434); RBC 3.63 M/mm3 (4.00-5.60); WHITE BLOOD COUNT 9.7 K/mm3 (4.0-10.0)
[2017-08-16] MEDS: MORPHINE SULFATE 2 MG/ML VIAL IVPUSH PRN (09:02)
[2017-08-16] MEDS: metoPROLOL SUCCINATE 25 MG TAB.SR.24H (FP) PO SCH (09:06)
[2017-08-16] MEDS: CLOPIDOGREL BISULFATE 75 MG TABLET (FP) PO SCH (09:06)
[2017-08-16] MEDS ORDERED: PT OWN MED DRAWER 7, Y5N ONE (09:14)
[2017-08-16 09:26] LABS: ALBUMIN 2.2 g/dl (3.4-5.0); ALK PHOS 106 U/L (45-117); ANION GAP 12 (8-16); BILIRUBIN,TOTAL 1.9 mg/dL (0.2-1.0); BLOOD UREA NITROGEN 40 mg/dL (7-18); CALCIUM 8.1 mg/dL (8.5-10.1); CHLORIDE 100 mmol/L (98-107); CO2 29 mmol/L (21-32); GLUCOSE,RANDOM 83 mg/dL (74-106); MAGNESIUM 2.2 mg/dL (1.8-2.4); POTASSIUM 4.1 mmol/L (3.5-5.1); SGOT/AST 43 U/L (15-37); SGPT/ALT 17 U/L (12-78); SODIUM 141 mmol/L (136-145); TOT PROT 7.1 g/dl (6.4-8.2)
--- NOTE | 2017-08-16 09:28 | PN ---
Progress Note, Physician History of Present Illness: SBP back to baseline 90s. He denies chest pain reports at baseline dyspnea, denies palpitations, near or true syncope, orthopnea, PND or LE edema. - Current Medication List Current Medications: Active Medications Acetaminophen (Tylenol -) 650 mg PO Q6H PRN PRN Reason: FEVER Last Admin: 08/16/17 03:42 Dose: 650 mg Clopidogrel Bisulfate (Plavix -) 75 mg PO DAILY [facility] Last Admin: 08/16/17 09:06 Dose: 75 mg Docusate Sodium (Colace -) 100 mg PO TID [facility] Guaifenesin (Diabetic Tussin Dm -) 5 ml PO Q6H PRN PRN Reason: COUGH Piperacillin Sod/Tazobactam (Sod 2.25 gm/ Dextrose) 50 mls @ 100 mls/hr IVPB Q8H-IV [facility]; Protocol Last Admin: 08/16/17 09:02 Dose: 100 mls/hr Insulin Aspart (Novolog Vial Sliding Scale -) 1 vial SQ ACHS [facility]; Protocol Last Admin: 08/16/17 06:38 Dose: Not Given Isosorbide Dinitrate (Isordil -) 20 mg PO BIDISORDIL [facility] Levothyroxine Sodium (Synthroid -) 75 mcg PO DAILY@0700 [facility] Last Admin: 08/16/17 06:40 Dose: 75 mcg Melatonin (Melatonin) 5 mg PO HS PRN PRN Reason: INSOMNIA Metoprolol Succinate (Toprol Xl -) 12.5 mg PO DAILY [facility] Last Admin: 08/16/17 09:06 Dose: 12.5 mg Morphine Sulfate (Morphine Sulfate) 2 mg IVPUSH Q4H PRN PRN Reason: PAIN LEVEL 7 - 10 Last Admin: 08/16/17 09:02 Dose: 2 mg Oxycodone HCl (Roxicodone -) 5 mg PO Q4H PRN PRN Reason: PAIN LEVEL 4 - 6 Sacubitril/Valsartan (Entresto 24 Mg-26 Mg Tablet) 1 tab PO BID [facility] Last Admin: 08/15/17 22:50 Dose: Not Given Senna (Senna -) 2 tab PO HS [facility] Warfarin Sodium (Coumadin -) 2 mg PO DAILY@1800 [facility] - Objective Vital Signs: Vital Signs Temperature 98.1 F 08/16/17 05:46 Pulse Rate 60 08/16/17 05:46 Respiratory Rate 20 08/16/17 05:46 Blood Pressure 92/56 08/16/17 05:46 O2 Sat by Pulse Oximetry (%) 99 08/15/17 23:30 Constitutional: Yes: No Distress, Calm, Thin Neck: Yes: Supple Cardiovascular: Yes: Regular Rate and Rhythm Respiratory: Yes: Regular, CTA Bilaterally, On Nasal O2 Gastrointestinal: Yes: Normal Bowel Sounds, Soft Edema: No Wound/Incision: Yes: Dressing Dry and Intact Labs: CBC, BMP 08/16/17 05:30 INR, PTT INR 3.01 (0.82-1.09) H 08/16/17 05:30 - ....Imaging EKG: Report Reviewed (Tele: Afib, v-paced) Problem List - Problems (1) Cardiomyopathy Code(s): I42.9 - CARDIOMYOPATHY, UNSPECIFIED Qualifiers: Cardiomyopathy type: unspecified Qualified Code(s): I42.9 - Cardiomyopathy , unspecified (2) ICD (implantable cardioverter-defibrillator) in place Code(s): Z95.810 - PRESENCE OF AUTOMATIC (IMPLANTABLE) CARDIAC DEFIBRILLATOR (3) Atrial fibrillation Code(s): I48.91 - UNSPECIFIED ATRIAL FIBRILLATION Qualifiers: Atrial fibrillation type: unspecified Qualified Code(s): I48.91 - Unspecified atrial fibrillation (4) Cellulitis of right lower extremity Code(s): L03.115 - CELLULITIS OF RIGHT LOWER LIMB (5) ESRD (end stage renal disease) Code(s): N18.6 - END STAGE RENAL DISEASE (6) Hypotension Code(s): I95.9 - HYPOTENSION, UNSPECIFIED Qualifiers: Hypotension type: other hypotension type Qualified Code(s): I95.89 - Other hypotension (7) Hypothyroid Code(s): E03.9 - HYPOTHYROIDISM, UNSPECIFIED Qualifiers: Hypothyroidism type: unspecified Qualified Code(s): E03.9 - Hypothyroidism , unspecified (8) Pericardial effusion Code(s): I31.3 - PERICARDIAL EFFUSION (NONINFLAMMATORY) (9) Amputated toe of right foot Code(s): Z89.421 - ACQUIRED ABSENCE OF OTHER RIGHT TOE(S) (10) Status post peripheral artery angioplasty Code(s): Z98.62 - PERIPHERAL VASCULAR ANGIOPLASTY STATUS (11) Diabetic foot ulcer Code(s): E11.621 - TYPE 2 DIABETES MELLITUS WITH FOOT ULCER; L97.509 - NON- PRESSURE CHRONIC ULCER OTH PRT UNSP FOOT W UNSP SEVERITY (12) Open wound of foot Code(s): S91.309A - UNSPECIFIED OPEN WOUND, UNSPECIFIED FOOT, INITIAL ENCOUNTER Qualifiers: Encounter type: subsequent encounter Laterality: right Qualified Code(s) : S91.301D - Unspecified open wound, right foot, subsequent encounter Assessment/Plan 08/11/2017 Echo: Mildly dilated with severly decreased LV fxn, mild-mod dilated with mod decreased RV fxn, mod LAE, mild MR, TR, AR, moderate pericardial effusion not in tamponade 01/19/2016 Echo: Mild LV dilatation, mild cLVH, LVEF 15-20%, diastolic dysfunction, severe LAE, mod NEGRO, mild AR, MR, TR, TN RVSP 52 mmHg, small pericardial effusion 11/11/2016 Lexiscan: Large NJ involving apex, inferior wall, inferolateral small area mild periinfarct ischemia mid anterior wall, dilated severly decreased LVEF 26, RV dilated 1. Ischemic dilated cardiomyopathy s/p ICD 2. ESRD on HD T, TH, Sat RUE AVF 3. Pericardial effusion ? uremic pericarditis 4. Hypothyroidism 5. Persistent afib [id number] score of 3-4 on Coumadin with supra-therapeutic INR 6. Right 5th toe osteomyelitis, POD day # 2 post debridement and toe amputation , POD#1 Revascularization right posterior tibial artery with atherectomy and angioplasty 7. hx of colon cancer 8. DM 9. hx of PE 10. CAD s/p NJ, post demand ischemia 11. DM c/b neuropathy Plan 1. Empiric abx course per C&S 2. HD as hemodynamics tolerate to reduce pericardial effusion, hold Lasix, trend trops to document peak 3. Coumadin per INR and Plavix 75 qd with caution given pericardial effusion 4. Resumed Toprol 12.5 qd, Entresto bid as hemodynamics tolerate, Isordil started by vascular 5. Patient saw Dr. Jayjay Karimi at [facility] 06/23/2017 pre-renal transplant eval, outpt records reviewed, usually sees Dr. Ghassan Durant at [facility]
[2017-08-16 09:33] LABS: CREATININE 8.5 mg/dL (0.7-1.3)
[2017-08-16] MEDS: SACUBITRIL/VALSARTAN 24 MG-26 MG TABLET PO SCH ×2 (09:41→21:46)
--- NOTE | 2017-08-16 09:41 | PN ---
Progress Note, Physician Chief Complaint: Pt. resting comfortably in bed, no GA complaints. - Current Medication List Current Medications: Active Medications Acetaminophen (Tylenol -) 650 mg PO Q6H PRN PRN Reason: FEVER Last Admin: 08/16/17 03:42 Dose: 650 mg Clopidogrel Bisulfate (Plavix -) 75 mg PO DAILY [facility] Last Admin: 08/16/17 09:06 Dose: 75 mg Docusate Sodium (Colace -) 100 mg PO TID [facility] Guaifenesin (Diabetic Tussin Dm -) 5 ml PO Q6H PRN PRN Reason: COUGH Piperacillin Sod/Tazobactam (Sod 2.25 gm/ Dextrose) 50 mls @ 100 mls/hr IVPB Q8H-IV [facility]; Protocol Last Admin: 08/16/17 09:02 Dose: 100 mls/hr Insulin Aspart (Novolog Vial Sliding Scale -) 1 vial SQ ACHS [facility]; Protocol Last Admin: 08/16/17 06:38 Dose: Not Given Isosorbide Dinitrate (Isordil -) 20 mg PO BIDISORDIL [facility] Levothyroxine Sodium (Synthroid -) 75 mcg PO DAILY@0700 [facility] Last Admin: 08/16/17 06:40 Dose: 75 mcg Melatonin (Melatonin) 5 mg PO HS PRN PRN Reason: INSOMNIA Metoprolol Succinate (Toprol Xl -) 12.5 mg PO DAILY [facility] Last Admin: 08/16/17 09:06 Dose: 12.5 mg Morphine Sulfate (Morphine Sulfate) 2 mg IVPUSH Q4H PRN PRN Reason: PAIN LEVEL 7 - 10 Last Admin: 08/16/17 09:02 Dose: 2 mg Oxycodone HCl (Roxicodone -) 5 mg PO Q4H PRN PRN Reason: PAIN LEVEL 4 - 6 Sacubitril/Valsartan (Entresto 24 Mg-26 Mg Tablet) 1 tab PO BID [facility] Last Admin: 08/15/17 22:50 Dose: Not Given Senna (Senna -) 2 tab PO HS [facility] Warfarin Sodium (Coumadin -) 2 mg PO DAILY@1800 [facility] - Objective Vital Signs: Vital Signs Temperature 98.1 F 08/16/17 05:46 Pulse Rate 60 08/16/17 05:46 Respiratory Rate 20 08/16/17 05:46 Blood Pressure 92/56 08/16/17 05:46 O2 Sat by Pulse Oximetry (%) 99 08/15/17 23:30 Constitutional: Yes: Well Nourished, No Distress, Calm Neurological: Yes: WNL, Alert, Oriented Labs: CBC, BMP 08/16/17 05:30 08/16/17 05:30 INR, PTT INR 3.01 (0.82-1.09) H 08/16/17 05:30 Assessment/Plan POD#1 s/p right leg angioplasty under GA. Doing well. D/C from anesthesia care.
[2017-08-16] MEDS: ISOSORBIDE DINITRATE 20 MG TABLET (FP) PO SCH ×2 (09:42→17:27)
[2017-08-16] MEDS: oxyCODONE HCL 5 MG TABLET PO PRN ×3 (10:28→20:02)
--- NOTE | 2017-08-16 11:33 | PN ---
Progress Note (short form) - Note Progress Note: RENAL Pt awake and alert comfortable without oxygen he is noncompliant with fluid restriction had dual toe amputation Last Vital Signs Temp Pulse Resp BP Pulse Ox 98.1 F 60 20 92/56 99 08/16/17 05:46 08/16/17 05:46 08/16/17 05:46 08/16/17 05:46 08/15/17 23:30 lungs decreased at right base cvs s1s2 irreg abd soft ext right lower ext edema neuro a+ox3 CBC, BMP 08/16/17 05:30 08/16/17 05:30 Current Medications Generic Name Dose Route Start Last Admin Trade Name Freq PRN Reason Stop Dose Admin Acetaminophen 650 mg 08/15/17 21:34 08/16/17 03:42 Tylenol - PO 650 mg Q6H PRN Administration FEVER Clopidogrel Bisulfate 75 mg 08/15/17 21:15 08/16/17 09:06 Plavix - PO 75 mg DAILY [facility] Administration Docusate Sodium 100 mg 08/16/17 14:00 Colace - PO TID [facility] Guaifenesin 5 ml 08/15/17 21:34 Diabetic Tussin Dm - PO Q6H PRN COUGH Piperacillin Sod/Tazobactam 50 mls @ 100 mls/hr 08/16/17 02:00 08/16/17 09:02 Sod 2.25 gm/ Dextrose IVPB 100 mls/hr Q8H-IV [facility] Administration Protocol Insulin Aspart 1 vial 08/15/17 22:00 08/16/17 06:38 Novolog Vial Sliding Scale - SQ Not Given ACHS [facility] Protocol Isosorbide Dinitrate 20 mg 08/16/17 10:00 08/16/17 09:42 Isordil - PO 20 mg BIDISORDIL [facility] Administration Levothyroxine Sodium 75 mcg 08/16/17 07:00 08/16/17 06:40 Synthroid - PO 75 mcg DAILY@0700 [facility] Administration Melatonin 5 mg 08/15/17 21:34 Melatonin PO HS PRN INSOMNIA Metoprolol Succinate 12.5 mg 08/16/17 10:00 08/16/17 09:06 Toprol Xl - PO 12.5 mg DAILY [facility] Administration Morphine Sulfate 2 mg 08/15/17 21:34 08/16/17 09:02 Morphine Sulfate IVPUSH 2 mg Q4H PRN Administration PAIN LEVEL 7 - 10 Oxycodone HCl 5 mg 08/15/17 21:34 08/16/17 10:28 Roxicodone - PO 5 mg Q4H PRN Administration PAIN LEVEL 4 - 6 Sacubitril/Valsartan 1 tab 08/15/17 22:00 08/16/17 09:41 Entresto 24 Mg-26 Mg Tablet PO 1 tab BID [facility] Administration Senna 2 tab 08/16/17 22:00 Senna - PO HS [facility] Warfarin Sodium 2 mg 08/16/17 18:00 Coumadin - PO DAILY@1800 [facility] Impression 1. ESRD 2. pericardial effusion 3. pneumopericardium 4. hypothyroidism 5. a-fib 6. hypotension 7. hx of colon cancer 8. CHF 9. DM 10. hx of PE 11. CAD 12. toe infection Plan will order HD for tomorrow again and then should also be dialyzed on 08/18/2017 needs to be on a strict fluid restriction- he tends not to follow this PT, antibiotics MV
[2017-08-16] MEDS ORDERED: SODIUM CHLORIDE 250 ML IV PRN (11:34)
[2017-08-16] MEDS: DOCUSATE SODIUM 100 MG CAPSULE (FP) PO SCH ×2 (13:37→21:46)
--- NOTE | 2017-08-16 13:50 | PN ---
Progress Note (short form) - Note Progress Note: S/p left tibial revascularization No bleeding in ankle or groin Left PT doppler triphasic, DP monophasic Stable Will observe for healing , may need additional vascular interventions if distal foot remains ischemic. Problem List - Problems (1) Open wound of foot Code(s): S91.309A - UNSPECIFIED OPEN WOUND, UNSPECIFIED FOOT, INITIAL ENCOUNTER Qualifiers: Encounter type: subsequent encounter Laterality: right Qualified Code(s) : S91.301D - Unspecified open wound, right foot, subsequent encounter
--- NOTE | 2017-08-16 14:26 | PN ---
Progress Note, Physician History of Present Illness: stable no fever post op patient doing well - Current Medication List Current Medications: Active Medications Acetaminophen (Tylenol -) 650 mg PO Q6H PRN PRN Reason: FEVER Last Admin: 08/16/17 03:42 Dose: 650 mg Alprazolam (Xanax -) 0.25 mg PO BID PRN PRN Reason: ANXIETY Clopidogrel Bisulfate (Plavix -) 75 mg PO DAILY [facility] Last Admin: 08/16/17 09:06 Dose: 75 mg Docusate Sodium (Colace -) 100 mg PO TID [facility] Last Admin: 08/16/17 13:37 Dose: 100 mg Guaifenesin (Diabetic Tussin Dm -) 5 ml PO Q6H PRN PRN Reason: COUGH Piperacillin Sod/Tazobactam (Sod 2.25 gm/ Dextrose) 50 mls @ 100 mls/hr IVPB Q8H-IV [facility]; Protocol Last Admin: 08/16/17 09:02 Dose: 100 mls/hr Sodium Chloride (Normal Saline -) 250 mls @ 3,000 mls/hr IV PRN PRN PRN Reason: Hypotension during Dialysis Stop: 08/17/17 11:35 Insulin Aspart (Novolog Vial Sliding Scale -) 1 vial SQ ACHS [facility]; Protocol Last Admin: 08/16/17 13:32 Dose: Not Given Isosorbide Dinitrate (Isordil -) 20 mg PO BIDISORDIL [facility] Last Admin: 08/16/17 09:42 Dose: 20 mg Levothyroxine Sodium (Synthroid -) 75 mcg PO DAILY@0700 [facility] Last Admin: 08/16/17 06:40 Dose: 75 mcg Melatonin (Melatonin) 5 mg PO HS PRN PRN Reason: INSOMNIA Metoprolol Succinate (Toprol Xl -) 12.5 mg PO DAILY [facility] Last Admin: 08/16/17 09:06 Dose: 12.5 mg Morphine Sulfate (Morphine Sulfate) 2 mg IVPUSH Q4H PRN PRN Reason: PAIN LEVEL 7 - 10 Last Admin: 08/16/17 09:02 Dose: 2 mg Oxycodone HCl (Roxicodone -) 5 mg PO Q4H PRN PRN Reason: PAIN LEVEL 4 - 6 Last Admin: 08/16/17 10:28 Dose: 5 mg Sacubitril/Valsartan (Entresto 24 Mg-26 Mg Tablet) 1 tab PO BID [facility] Last Admin: 08/16/17 09:41 Dose: 1 tab Senna (Senna -) 2 tab PO [facility] Warfarin Sodium (Coumadin -) 2 mg PO DAILY@1800 [facility] - Objective Vital Signs: Vital Signs Temperature 98.3 F 08/16/17 10:00 Pulse Rate 64 08/16/17 10:00 Respiratory Rate 18 08/16/17 10:00 Blood Pressure 91/57 08/16/17 10:00 O2 Sat by Pulse Oximetry (%) 99 08/16/17 09:00 Constitutional: Yes: No Distress, Calm Cardiovascular: Yes: Regular Rate and Rhythm Respiratory: Yes: Regular, CTA Bilaterally Gastrointestinal: Yes: Normal Bowel Sounds, Soft Musculoskeletal: Yes: Other Extremities: Yes: Other Wound/Incision: Yes: Dressing Dry and Intact Neurological: Yes: Alert, Oriented Psychiatric: Yes: Alert, Oriented Labs: CBC, BMP 08/16/17 05:30 08/16/17 05:30 INR, PTT INR 3.01 (0.82-1.09) H 08/16/17 05:30 Assessment/Plan patient coming in a type of sepsis picture i think his invection is coming from the wound itself he has multiple other issues Problem List - Problems (1) Atrial fibrillation Code(s): I48.91 - UNSPECIFIED ATRIAL FIBRILLATION Qualifiers: Atrial fibrillation type: unspecified Qualified Code(s): I48.91 - Unspecified atrial fibrillation (2) Cardiomyopathy Code(s): I42.9 - CARDIOMYOPATHY, UNSPECIFIED Qualifiers: Cardiomyopathy type: unspecified Qualified Code(s): I42.9 - Cardiomyopathy , unspecified (3) Cellulitis of right lower extremity Code(s): L03.115 - CELLULITIS OF RIGHT LOWER LIMB (4) ESRD (end stage renal disease) Code(s): N18.6 - END STAGE RENAL DISEASE (5) Hypotension Code(s): I95.9 - HYPOTENSION, UNSPECIFIED Qualifiers: Hypotension type: other hypotension type Qualified Code(s): I95.89 - Other hypotension (6) Hypothyroid Code(s): E03.9 - HYPOTHYROIDISM, UNSPECIFIED Qualifiers: Hypothyroidism type: unspecified Qualified Code(s): E03.9 - Hypothyroidism , unspecified (7) ICD (implantable cardioverter-defibrillator) in place Code(s): Z95.810 - PRESENCE OF AUTOMATIC (IMPLANTABLE) CARDIAC DEFIBRILLATOR (8) Open wound of foot Code(s): S91.309A - UNSPECIFIED OPEN WOUND, UNSPECIFIED FOOT, INITIAL ENCOUNTER Qualifiers: Encounter type: initial encounter Laterality: right Qualified Code(s): S91.301A - Unspecified open wound, right foot, initial encounter plan continue abx await for cx report and sensitivites continue zosyn rest as per the team
[2017-08-16] MEDS: ALPRAZolam 0.25 MG TABLET PO PRN (16:42)
[2017-08-16] MEDS ORDERED: WARFARIN NA 2 MG TABLET (UD) PO SCH (18:00)
[2017-08-16] MEDS: SENNOSIDES 8.6MG TABLET (FP) PO SCH (21:46)
[2017-08-17] MEDS ORDERED: DEXTROSE 5%-WATER - 50 ML IVPB ONE ×3 (01:40→16:37)
[2017-08-17] MEDS ORDERED: PIPERACILLIN/TAZOBACTAM 2.25 GM VIAL IVPB ONE ×3 (01:40→16:36)
[2017-08-17] MEDS: oxyCODONE HCL 5 MG TABLET PO PRN ×3 (01:42→21:17)
[2017-08-17] MEDS: PIPERACILLIN/TAZOB 2.25 GM 2.25 GM in DEXTROSE 5%-WATER - 50 ML IVPB SCH ×4 (01:43→16:59)
[2017-08-17] MEDS: INSULIN SLIDING SCALE (NOVOLOG) 1 VIAL SQ SCH ×4 (05:59→21:11)
[2017-08-17] MEDS: DOCUSATE SODIUM 100 MG CAPSULE (FP) PO SCH ×3 (05:59→21:11)
[2017-08-17] MEDS: LEVOTHYROXINE NA 75 MCG TABLET (FP) PO SCH (06:15)
[2017-08-17 06:16] LABS: BASO % 0.2 % (0-2.0); EOS % 2.5 % (0-4.5); HEMOGLOBIN 10.9 GM/dL (11.7-16.9); LYMPH % 6.8 % (8-40); MCH 29.2 pg (25.7-33.7); MEAN CELL VOLUME 91.2 fl (80-96); MEAN PLT VOLUME 9.3 fl (7.5-11.1); MONO % 13.4 % (3.8-10.2); NEUT % 77.1 % (42.8-82.8); PLATELET COUNT 201 K/MM3 (134-434); RBC 3.73 M/mm3 (4.00-5.60); RDW 20.6 % (11.9-15.9)
[2017-08-17] MEDS ORDERED: PT OWN MED DRAWER 7, Y5N ONE ×3 (06:24→09:19)
[2017-08-17 06:37] LABS: INR 3.31 (0.82-1.09); PROTHROMBIN TIME (PATIENT) 37.4 SEC (9.7-13.0)
[2017-08-17 06:51] LABS: ALBUMIN 2.1 g/dl (3.4-5.0); ANION GAP 12 (8-16); BLOOD UREA NITROGEN 48 mg/dL (7-18); CALCIUM 7.9 mg/dL (8.5-10.1); CHLORIDE 98 mmol/L (98-107); CO2 28 mmol/L (21-32); GLUCOSE,RANDOM 92 mg/dL (74-106); MAGNESIUM 2.2 mg/dL (1.8-2.4); POTASSIUM 4.3 mmol/L (3.5-5.1); SODIUM 138 mmol/L (136-145)
[2017-08-17 06:55] LABS: ALK PHOS 129 U/L (45-117); BILIRUBIN,TOTAL 1.4 mg/dL (0.2-1.0); SGOT/AST 42 U/L (15-37); SGPT/ALT 18 U/L (12-78); TOT PROT 6.9 g/dl (6.4-8.2)
[2017-08-17 09:06] LABS: CREATININE 9.8 mg/dL (0.7-1.3)
[2017-08-17 09:40] LABS: ANISOCYTOSIS 1+; MACROCYTOSIS 1+; OVALOCYTE 1+; PLATELET ESTIMATE NORMAL; TARGET CELLS 1+
--- NOTE | 2017-08-17 09:40 | PN ---
Progress Note (short form) - Note Progress Note: Patient seen in bed today. pod#3. no pain. vss. Tmax 98.3 present. +clean dry dressing, -breakthrough bleeding, wbc=12.2, ozjy5l=4.9 normal post op pvd Packing pulled. Betadine irrigation. Dry Sterile dressing applied. Will follow. May go to bathroom with post op shoe on. Post op shoe left foot.
[2017-08-17] MEDS: ACETAMINOPHEN 325 MG TABLET (FP) PO PRN ×2 (09:54→21:16)
[2017-08-17] MEDS: SACUBITRIL/VALSARTAN 24 MG-26 MG TABLET PO SCH ×2 (10:06→21:11)
[2017-08-17] MEDS: ISOSORBIDE DINITRATE 20 MG TABLET (FP) PO SCH ×2 (10:06→17:22)
[2017-08-17] MEDS: metoPROLOL SUCCINATE 25 MG TAB.SR.24H (FP) PO SCH (10:07)
[2017-08-17] MEDS: CLOPIDOGREL BISULFATE 75 MG TABLET (FP) PO SCH (10:07)
--- NOTE | 2017-08-17 10:36 | PN ---
Progress Note, Physician History of Present Illness: He denies chest pain reports at baseline dyspnea, denies palpitations, near or true syncope, orthopnea, PND or LE edema. Left foot pain adequately controlled. - Current Medication List Current Medications: Active Medications Acetaminophen (Tylenol -) 650 mg PO Q6H PRN PRN Reason: FEVER Last Admin: 08/17/17 09:54 Dose: 650 mg Alprazolam (Xanax -) 0.25 mg PO BID PRN PRN Reason: ANXIETY Last Admin: 08/16/17 16:42 Dose: 0.25 mg Clopidogrel Bisulfate (Plavix -) 75 mg PO DAILY [facility] Last Admin: 08/17/17 10:07 Dose: 75 mg Docusate Sodium (Colace -) 100 mg PO TID [facility] Last Admin: 08/17/17 05:59 Dose: Not Given Guaifenesin (Diabetic Tussin Dm -) 5 ml PO Q6H PRN PRN Reason: COUGH Piperacillin Sod/Tazobactam (Sod 2.25 gm/ Dextrose) 50 mls @ 100 mls/hr IVPB Q8H-IV [facility]; Protocol Last Admin: 08/17/17 10:07 Dose: 100 mls/hr Sodium Chloride (Normal Saline -) 250 mls @ 3,000 mls/hr IV PRN PRN PRN Reason: Hypotension during Dialysis Stop: 08/17/17 11:35 Insulin Aspart (Novolog Vial Sliding Scale -) 1 vial SQ ACHS [facility]; Protocol Last Admin: 08/17/17 05:59 Dose: Not Given Isosorbide Dinitrate (Isordil -) 20 mg PO BIDISORDIL [facility] Last Admin: 08/17/17 10:06 Dose: 20 mg Levothyroxine Sodium (Synthroid -) 75 mcg PO DAILY@0700 [facility] Last Admin: 08/17/17 06:15 Dose: 75 mcg Melatonin (Melatonin) 5 mg PO HS PRN PRN Reason: INSOMNIA Metoprolol Succinate (Toprol Xl -) 12.5 mg PO DAILY [facility] Last Admin: 08/17/17 10:07 Dose: 12.5 mg Morphine Sulfate (Morphine Sulfate) 2 mg IVPUSH Q4H PRN PRN Reason: PAIN LEVEL 7 - 10 Last Admin: 08/16/17 09:02 Dose: 2 mg Oxycodone HCl (Roxicodone -) 5 mg PO Q4H PRN PRN Reason: PAIN LEVEL 4 - 6 Last Admin: 08/17/17 09:53 Dose: 5 mg Sacubitril/Valsartan (Entresto 24 Mg-26 Mg Tablet) 1 tab PO BID [facility] Last Admin: 08/17/17 10:06 Dose: 1 tab Senna (Senna -) 2 tab PO HS [facility] Last Admin: 08/16/17 21:46 Dose: Not Given Warfarin Sodium (Coumadin -) 2 mg PO DAILY@1800 [facility] Last Admin: 08/16/17 17:25 Dose: 2 mg - Objective Vital Signs: Vital Signs Temperature 98.3 F 08/17/17 05:41 Pulse Rate 65 08/17/17 05:41 Respiratory Rate 20 08/17/17 05:41 Blood Pressure 81/43 08/17/17 05:41 O2 Sat by Pulse Oximetry (%) 99 08/16/17 21:00 Constitutional: Yes: No Distress, Calm, Thin Neck: Yes: Supple Cardiovascular: Yes: Regular Rate and Rhythm Respiratory: Yes: Regular, CTA Bilaterally Gastrointestinal: Yes: Normal Bowel Sounds, Soft Edema: No Labs: CBC, BMP 08/17/17 05:30 08/17/17 05:30 INR, PTT INR 3.31 (0.82-1.09) H 08/17/17 05:30 - ....Imaging EKG: Report Reviewed (Tele: Afib v-paced) Problem List - Problems (1) Cardiomyopathy Code(s): I42.9 - CARDIOMYOPATHY, UNSPECIFIED Qualifiers: Cardiomyopathy type: unspecified Qualified Code(s): I42.9 - Cardiomyopathy , unspecified (2) ICD (implantable cardioverter-defibrillator) in place Code(s): Z95.810 - PRESENCE OF AUTOMATIC (IMPLANTABLE) CARDIAC DEFIBRILLATOR (3) Atrial fibrillation Code(s): I48.91 - UNSPECIFIED ATRIAL FIBRILLATION Qualifiers: Atrial fibrillation type: unspecified Qualified Code(s): I48.91 - Unspecified atrial fibrillation (4) Cellulitis of right lower extremity Code(s): L03.115 - CELLULITIS OF RIGHT LOWER LIMB (5) ESRD (end stage renal disease) Code(s): N18.6 - END STAGE RENAL DISEASE (6) Hypotension Code(s): I95.9 - HYPOTENSION, UNSPECIFIED Qualifiers: Hypotension type: other hypotension type Qualified Code(s): I95.89 - Other hypotension (7) Hypothyroid Code(s): E03.9 - HYPOTHYROIDISM, UNSPECIFIED Qualifiers: Hypothyroidism type: unspecified Qualified Code(s): E03.9 - Hypothyroidism , unspecified (8) Pericardial effusion Code(s): I31.3 - PERICARDIAL EFFUSION (NONINFLAMMATORY) (9) Amputated toe of right foot Code(s): Z89.421 - ACQUIRED ABSENCE OF OTHER RIGHT TOE(S) (10) Status post peripheral artery angioplasty Code(s): Z98.62 - PERIPHERAL VASCULAR ANGIOPLASTY STATUS (11) Diabetic foot ulcer Code(s): E11.621 - TYPE 2 DIABETES MELLITUS WITH FOOT ULCER; L97.509 - NON- PRESSURE CHRONIC ULCER OTH PRT UNSP FOOT W UNSP SEVERITY (12) Open wound of foot Code(s): S91.309A - UNSPECIFIED OPEN WOUND, UNSPECIFIED FOOT, INITIAL ENCOUNTER Qualifiers: Encounter type: subsequent encounter Laterality: right Qualified Code(s) : S91.301D - Unspecified open wound, right foot, subsequent encounter Assessment/Plan 08/11/2017 Echo: Mildly dilated with severly decreased LV fxn, mild-mod dilated with mod decreased RV fxn, mod LAE, mild MR, TR, AR, moderate pericardial effusion not in tamponade 01/19/2016 Echo: Mild LV dilatation, mild cLVH, LVEF 15-20%, diastolic dysfunction, severe LAE, mod NEGRO, mild AR, MR, TR, WA RVSP 52 mmHg, small pericardial effusion 11/11/2016 Lexiscan: Large GA involving apex, inferior wall, inferolateral small area mild periinfarct ischemia mid anterior wall, dilated severly decreased LVEF 26, RV dilated 1. Ischemic dilated cardiomyopathy s/p ICD 2. ESRD on HD T, TH, Sat RUE AVF 3. Pericardial effusion ? uremic pericarditis 4. Hypothyroidism 5. Persistent afib [id number] score of 3-4 on Coumadin with supratherapeutic INR 6. 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 hx of colon cancer 8. DM 9. hx of PE 10. CAD s/p GA, post demand ischemia 11. DM c/b neuropathy Plan 1. Empiric abx course per C&S, post-op wound care 2. HD as hemodynamics tolerate to reduce pericardial effusion, hold Lasix, trend trops to document peak 3. Decrease Coumadin dose per INR and Plavix 75 qd with caution given pericardial effusion 4. Resumed Toprol 12.5 qd, Entresto 24/26 bid as hemodynamics tolerate, Isordil started by vascular 5. Patient saw Dr. Jayjay Karimi at [facility] 06/23/2017 pre-renal transplant eval, outpt records reviewed, usually sees Dr. Ghassan Durant at [facility]
[2017-08-17] MEDS ORDERED: WARFARIN NA 1 MG TABLET (FP) PO SCH (10:40)
--- NOTE | 2017-08-17 12:15 | PN ---
Progress Note, Physician History of Present Illness: Pt seen and examined at bedside. He is awake and alert. He is currently getting HD. He denies shortness of breath. - Current Medication List Current Medications: Active Medications Acetaminophen (Tylenol -) 650 mg PO Q6H PRN PRN Reason: FEVER Last Admin: 08/17/17 09:54 Dose: 650 mg Alprazolam (Xanax -) 0.25 mg PO BID PRN PRN Reason: ANXIETY Last Admin: 08/16/17 16:42 Dose: 0.25 mg Clopidogrel Bisulfate (Plavix -) 75 mg PO DAILY [facility] Last Admin: 08/17/17 10:07 Dose: 75 mg Docusate Sodium (Colace -) 100 mg PO TID [facility] Last Admin: 08/17/17 05:59 Dose: Not Given Guaifenesin (Diabetic Tussin Dm -) 5 ml PO Q6H PRN PRN Reason: COUGH Piperacillin Sod/Tazobactam (Sod 2.25 gm/ Dextrose) 50 mls @ 100 mls/hr IVPB Q8H-IV [facility]; Protocol Last Admin: 08/17/17 10:07 Dose: 100 mls/hr Insulin Aspart (Novolog Vial Sliding Scale -) 1 vial SQ ACHS [facility]; Protocol Last Admin: 08/17/17 11:38 Dose: Not Given Isosorbide Dinitrate (Isordil -) 20 mg PO BIDISORDIL [facility] Last Admin: 08/17/17 10:06 Dose: 20 mg Levothyroxine Sodium (Synthroid -) 75 mcg PO DAILY@0700 [facility] Last Admin: 08/17/17 06:15 Dose: 75 mcg Melatonin (Melatonin) 5 mg PO HS PRN PRN Reason: INSOMNIA Metoprolol Succinate (Toprol Xl -) 12.5 mg PO DAILY [facility] Last Admin: 08/17/17 10:07 Dose: 12.5 mg Morphine Sulfate (Morphine Sulfate) 2 mg IVPUSH Q4H PRN PRN Reason: PAIN LEVEL 7 - 10 Last Admin: 08/16/17 09:02 Dose: 2 mg Oxycodone HCl (Roxicodone -) 5 mg PO Q4H PRN PRN Reason: PAIN LEVEL 4 - 6 Last Admin: 08/17/17 09:53 Dose: 5 mg Sacubitril/Valsartan (Entresto 24 Mg-26 Mg Tablet) 1 tab PO BID [facility] Last Admin: 08/17/17 10:06 Dose: 1 tab Senna (Senna -) 2 tab PO HS [facility] Last Admin: 08/16/17 21:46 Dose: Not Given Warfarin Sodium (Coumadin -) 1 mg PO DAILY@1800 [facility] - Objective Vital Signs: Vital Signs Temperature 98.3 F 08/17/17 12:02 Pulse Rate 64 08/17/17 12:02 Respiratory Rate 20 08/17/17 12:02 Blood Pressure 81/47 08/17/17 12:02 O2 Sat by Pulse Oximetry (%) 99 08/16/17 21:00 Constitutional: Yes: Calm Eyes: Yes: Conjunctiva Clear HENT: Yes: Atraumatic Neck: Yes: Supple Cardiovascular: Yes: S1, S2 Respiratory: Yes: CTA Bilaterally Gastrointestinal: Yes: Normal Bowel Sounds, Soft Musculoskeletal: Yes: WNL Edema: LLE: Trace, RLE: Trace Wound/Incision: Yes: Dressing Dry and Intact Neurological: Yes: Oriented Psychiatric: Yes: Oriented Labs: CBC, BMP 08/17/17 05:30 08/17/17 05:30 INR, PTT INR 3.31 (0.82-1.09) H 08/17/17 05:30 Problem List - Problems (1) ESRD (end stage renal disease) Code(s): N18.6 - END STAGE RENAL DISEASE (2) Pericardial effusion Code(s): I31.3 - PERICARDIAL EFFUSION (NONINFLAMMATORY) (3) Hypotension Code(s): I95.9 - HYPOTENSION, UNSPECIFIED Qualifiers: Hypotension type: other hypotension type Qualified Code(s): I95.89 - Other hypotension (4) Hypothyroid Code(s): E03.9 - HYPOTHYROIDISM, UNSPECIFIED Qualifiers: Hypothyroidism type: unspecified Qualified Code(s): E03.9 - Hypothyroidism , unspecified (5) Atrial fibrillation Code(s): I48.91 - UNSPECIFIED ATRIAL FIBRILLATION Qualifiers: Atrial fibrillation type: unspecified Qualified Code(s): I48.91 - Unspecified atrial fibrillation (6) Open wound of foot Code(s): S91.309A - UNSPECIFIED OPEN WOUND, UNSPECIFIED FOOT, INITIAL ENCOUNTER Qualifiers: Encounter type: subsequent encounter Laterality: right Qualified Code(s) : S91.301D - Unspecified open wound, right foot, subsequent encounter Assessment/Plan Current Medications Generic Name Dose Route Start Last Admin Trade Name Freq PRN Reason Stop Dose Admin Acetaminophen 650 mg 08/15/17 21:34 08/17/17 09:54 Tylenol - PO 650 mg Q6H PRN Administration FEVER Alprazolam 0.25 mg 08/16/17 13:50 08/16/17 16:42 Xanax - PO 0.25 mg BID PRN Administration ANXIETY Clopidogrel Bisulfate 75 mg 08/15/17 21:15 08/17/17 10:07 Plavix - PO 75 mg DAILY [facility] Administration Docusate Sodium 100 mg 08/16/17 14:00 08/17/17 05:59 Colace - PO Not Given TID [facility] Guaifenesin 5 ml 08/15/17 21:34 Diabetic Tussin Dm - PO Q6H PRN COUGH Piperacillin Sod/Tazobactam 50 mls @ 100 mls/hr 08/16/17 02:00 08/17/17 10:07 Sod 2.25 gm/ Dextrose IVPB 100 mls/hr Q8H-IV [facility] Administration Protocol Insulin Aspart 1 vial 08/15/17 22:00 08/17/17 11:38 Novolog Vial Sliding Scale - SQ Not Given ACHS [facility] Protocol Isosorbide Dinitrate 20 mg 08/16/17 10:00 08/17/17 10:06 Isordil - PO 20 mg BIDISORDIL [facility] Administration Levothyroxine Sodium 75 mcg 08/16/17 07:00 08/17/17 06:15 Synthroid - PO 75 mcg DAILY@0700 [facility] Administration Melatonin 5 mg 08/15/17 21:34 Melatonin PO HS PRN INSOMNIA Metoprolol Succinate 12.5 mg 08/16/17 10:00 08/17/17 10:07 Toprol Xl - PO 12.5 mg DAILY [facility] Administration Morphine Sulfate 2 mg 08/15/17 21:34 08/16/17 09:02 Morphine Sulfate IVPUSH 2 mg Q4H PRN Administration PAIN LEVEL 7 - 10 Oxycodone HCl 5 mg 08/15/17 21:34 08/17/17 09:53 Roxicodone - PO 5 mg Q4H PRN Administration PAIN LEVEL 4 - 6 Sacubitril/Valsartan 1 tab 08/15/17 22:00 08/17/17 10:06 Entresto 24 Mg-26 Mg Tablet PO 1 tab BID [facility] Administration Senna 2 tab 08/16/17 22:00 08/16/17 21:46 Senna - PO Not Given HS [facility] Warfarin Sodium 1 mg 08/17/17 18:00 Coumadin - PO DAILY@1800 [facility] Impression 1. ESRD 2. pericardial effusion 3. pneumopericardium 4. hypothyroidism 5. a-fib 6. hypotension 7. hx of colon cancer 8. CHF 9. DM 10. hx of PE 11. CAD Plan - HD today, will give a dose of albumin with HD as his bp is usually low - monitor BP - cont wound care - abx per ID - will follow Dr Conklin
--- NOTE | 2017-08-17 12:44 | PN ---
Progress Note, Physician History of Present Illness: doing well no complaints - Current Medication List Current Medications: Active Medications Acetaminophen (Tylenol -) 650 mg PO Q6H PRN PRN Reason: FEVER Last Admin: 08/17/17 09:54 Dose: 650 mg Alprazolam (Xanax -) 0.25 mg PO BID PRN PRN Reason: ANXIETY Last Admin: 08/16/17 16:42 Dose: 0.25 mg Clopidogrel Bisulfate (Plavix -) 75 mg PO DAILY [facility] Last Admin: 08/17/17 10:07 Dose: 75 mg Docusate Sodium (Colace -) 100 mg PO TID [facility] Last Admin: 08/17/17 05:59 Dose: Not Given Guaifenesin (Diabetic Tussin Dm -) 5 ml PO Q6H PRN PRN Reason: COUGH Piperacillin Sod/Tazobactam (Sod 2.25 gm/ Dextrose) 50 mls @ 100 mls/hr IVPB Q8H-IV [facility]; Protocol Last Admin: 08/17/17 10:07 Dose: 100 mls/hr Insulin Aspart (Novolog Vial Sliding Scale -) 1 vial SQ ACHS [facility]; Protocol Last Admin: 08/17/17 11:38 Dose: Not Given Isosorbide Dinitrate (Isordil -) 20 mg PO BIDISORDIL [facility] Last Admin: 08/17/17 10:06 Dose: 20 mg Levothyroxine Sodium (Synthroid -) 75 mcg PO DAILY@0700 [facility] Last Admin: 08/17/17 06:15 Dose: 75 mcg Melatonin (Melatonin) 5 mg PO HS PRN PRN Reason: INSOMNIA Metoprolol Succinate (Toprol Xl -) 12.5 mg PO DAILY [facility] Last Admin: 08/17/17 10:07 Dose: 12.5 mg Morphine Sulfate (Morphine Sulfate) 2 mg IVPUSH Q4H PRN PRN Reason: PAIN LEVEL 7 - 10 Last Admin: 08/16/17 09:02 Dose: 2 mg Oxycodone HCl (Roxicodone -) 5 mg PO Q4H PRN PRN Reason: PAIN LEVEL 4 - 6 Last Admin: 08/17/17 09:53 Dose: 5 mg Sacubitril/Valsartan (Entresto 24 Mg-26 Mg Tablet) 1 tab PO BID [facility] Last Admin: 08/17/17 10:06 Dose: 1 tab Senna (Senna -) 2 tab PO HS [facility] Last Admin: 08/16/17 21:46 Dose: Not Given Warfarin Sodium (Coumadin -) 1 mg PO DAILY@1800 [facility] - Objective Vital Signs: Vital Signs Temperature 98.3 F 08/17/17 12:02 Pulse Rate 64 08/17/17 12:02 Respiratory Rate 20 08/17/17 12:02 Blood Pressure 81/47 08/17/17 12:02 O2 Sat by Pulse Oximetry (%) 99 08/16/17 21:00 Constitutional: Yes: No Distress, Calm Cardiovascular: Yes: Regular Rate and Rhythm Gastrointestinal: Yes: Normal Bowel Sounds, Soft Musculoskeletal: Yes: Other Extremities: Yes: Other Wound/Incision: Yes: Dressing Dry and Intact Neurological: Yes: Alert, Oriented Psychiatric: Yes: Alert, Oriented Labs: CBC, BMP 08/17/17 05:30 08/17/17 05:30 INR, PTT INR 3.31 (0.82-1.09) H 08/17/17 05:30 Assessment/Plan patient coming in a type of sepsis picture i think his invection is coming from the wound itself he has multiple other issues Problem List - Problems (1) Atrial fibrillation Code(s): I48.91 - UNSPECIFIED ATRIAL FIBRILLATION Qualifiers: Atrial fibrillation type: unspecified Qualified Code(s): I48.91 - Unspecified atrial fibrillation (2) Cardiomyopathy Code(s): I42.9 - CARDIOMYOPATHY, UNSPECIFIED Qualifiers: Cardiomyopathy type: unspecified Qualified Code(s): I42.9 - Cardiomyopathy , unspecified (3) Cellulitis of right lower extremity Code(s): L03.115 - CELLULITIS OF RIGHT LOWER LIMB (4) ESRD (end stage renal disease) Code(s): N18.6 - END STAGE RENAL DISEASE (5) Hypotension Code(s): I95.9 - HYPOTENSION, UNSPECIFIED Qualifiers: Hypotension type: other hypotension type Qualified Code(s): I95.89 - Other hypotension (6) Hypothyroid Code(s): E03.9 - HYPOTHYROIDISM, UNSPECIFIED Qualifiers: Hypothyroidism type: unspecified Qualified Code(s): E03.9 - Hypothyroidism , unspecified (7) ICD (implantable cardioverter-defibrillator) in place Code(s): Z95.810 - PRESENCE OF AUTOMATIC (IMPLANTABLE) CARDIAC DEFIBRILLATOR (8) Open wound of foot Code(s): S91.309A - UNSPECIFIED OPEN WOUND, UNSPECIFIED FOOT, INITIAL ENCOUNTER Qualifiers: Encounter type: initial encounter Laterality: right Qualified Code(s): S91.301A - Unspecified open wound, right foot, initial encounter plan continue abx await for cx report and sensitivites continue zosyn rest as per the team wound care
--- NOTE | 2017-08-17 16:58 | PN ---
Physical Exam: SUBJECTIVE: Patient seen and examined at the bedside. OBJECTIVE: Vital Signs Period Temp Pulse Resp BP Sys/Yoon Pulse Ox Last 24 Hr 97.5 F-98.3 F 55-67 18-20 79-108/41-58 99 GENERAL: The patient is awake, alert, and fully oriented, anxious HEAD: Normal with no signs of trauma. EYES: PERRL, extraocular movements intact, sclera anicteric, conjunctiva clear. No ptosis. ENT: Ears normal, nares patent, oropharynx clear without exudates, moist mucous membranes. NECK: Trachea midline, full range of motion, supple. LUNGS: Breath sounds equal, clear to auscultation bilaterally, no wheezes, no crackles, no accessory muscle use. ABDOMEN: Soft, nontender, nondistended, normoactive bowel sounds, no guarding, no rebound, no hepatosplenomegaly, no masses. EXTREMITIES: right foot bandage, c/d/i NEUROLOGICAL: Normal speech, gait not observed. PSYCH: Normal mood, normal affect. SKIN: Warm, dry, normal turgor, no rashes or lesions noted Laboratory Results - last 24 hr 08/14/17 08/16/17 08/17/17 11:15 21:45 05:30 WBC RBC Hgb Hct MCV MCH MCHC RDW Plt Count MPV Absolute Neuts (auto) Neutrophils % Neutrophils % (Manual) Band Neutrophils % Lymphocytes % Lymphocytes % (Manual) Monocytes % Monocytes % (Manual) Eosinophils % Eosinophils % (Manual) Basophils % Basophils % (Manual) Myelocytes % (Man) Promyelocytes % (Man) Blast Cells % (Manual) Nucleated RBC % Metamyelocytes Hypochromia Platelet Estimate Polychromasia Poikilocytosis Anisocytosis Microcytosis Macrocytosis Target Cells Ovalocytes Schistocytes PT with INR INR PTT (Actin FS) 55.6 H Sodium Potassium Chloride Carbon Dioxide Anion Gap BUN Creatinine Creat Clearance w eGFR POC Glucometer 120 Random Glucose Calcium Magnesium Total Bilirubin AST ALT Alkaline Phosphatase Total Protein Albumin Blood Type O POSITIVE Antibody Screen Negative 08/17/17 08/17/17 08/17/17 05:30 05:30 05:30 WBC 9.0 RBC 3.73 L Hgb 10.9 L Hct 34.0 L MCV 91.2 MCH 29.2 MCHC 32.0 RDW 20.6 H Plt Count 201 MPV 9.3 Absolute Neuts (auto) 6.9 Neutrophils % 77.1 Neutrophils % (Manual) 72.6 Band Neutrophils % 0.0 Lymphocytes % 6.8 L Lymphocytes % (Manual) 7.4 L D Monocytes % 13.4 H Monocytes % (Manual) 14 H Eosinophils % 2.5 Eosinophils % (Manual) 3.1 Basophils % 0.2 Basophils % (Manual) 0.0 Myelocytes % (Man) 0 Promyelocytes % (Man) 0 Blast Cells % (Manual) 0 Nucleated RBC % 0 Metamyelocytes 0 Hypochromia 1+ Platelet Estimate Normal Polychromasia 1+ Poikilocytosis 0 Anisocytosis 1+ Microcytosis 1+ Macrocytosis 1+ Target Cells 1+ Ovalocytes 1+ Schistocytes 1+ PT with INR 37.40 H INR 3.31 H PTT (Actin FS) Sodium 138 Potassium 4.3 Chloride 98 Carbon Dioxide 28 Anion Gap 12 BUN 48 H Creatinine 9.8 H* Creat Clearance w eGFR 5.29 POC Glucometer Random Glucose 92 Calcium 7.9 L Magnesium 2.2 Total Bilirubin 1.4 H AST 42 H ALT 18 Alkaline Phosphatase 129 H D Total Protein 6.9 Albumin 2.1 L Blood Type Antibody Screen 08/17/17 05:43 WBC RBC Hgb Hct MCV MCH MCHC RDW Plt Count MPV Absolute Neuts (auto) Neutrophils % Neutrophils % (Manual) Band Neutrophils % Lymphocytes % Lymphocytes % (Manual) Monocytes % Monocytes % (Manual) Eosinophils % Eosinophils % (Manual) Basophils % Basophils % (Manual) Myelocytes % (Man) Promyelocytes % (Man) Blast Cells % (Manual) Nucleated RBC % Metamyelocytes Hypochromia Platelet Estimate Polychromasia Poikilocytosis Anisocytosis Microcytosis Macrocytosis Target Cells Ovalocytes Schistocytes PT with INR INR PTT (Actin FS) Sodium Potassium Chloride Carbon Dioxide Anion Gap BUN Creatinine Creat Clearance w eGFR POC Glucometer 102 Random Glucose Calcium Magnesium Total Bilirubin AST ALT Alkaline Phosphatase Total Protein Albumin Blood Type Antibody Screen Active Medications Generic Name Dose Route Start Last Admin Trade Name Freq PRN Reason Stop Dose Admin Acetaminophen 650 mg 08/15/17 21:34 08/17/17 09:54 Tylenol - PO 650 mg Q6H PRN Administration FEVER Alprazolam 0.25 mg 08/16/17 13:50 08/16/17 16:42 Xanax - PO 0.25 mg BID PRN Administration ANXIETY Alprazolam 0.25 mg 08/17/17 17:00 08/17/17 16:55 Xanax - PO 08/17/17 17:01 0.25 mg ONCE ONE Administration Clopidogrel Bisulfate 75 mg 08/15/17 21:15 08/17/17 10:07 Plavix - PO 75 mg DAILY [facility] Administration Docusate Sodium 100 mg 08/16/17 14:00 08/17/17 14:40 Colace - PO Not Given TID [facility] Guaifenesin 5 ml 08/15/17 21:34 Diabetic Tussin Dm - PO Q6H PRN COUGH Piperacillin Sod/Tazobactam 50 mls @ 100 mls/hr 08/16/17 02:00 08/17/17 16:57 Sod 2.25 gm/ Dextrose IVPB 100 mls/hr Q8H-IV [facility] Administration Protocol Insulin Aspart 1 vial 08/15/17 22:00 08/17/17 16:54 Novolog Vial Sliding Scale - SQ Not Given ACHS [facility] Protocol Isosorbide Dinitrate 20 mg 08/16/17 10:00 08/17/17 10:06 Isordil - PO 20 mg BIDISORDIL [facility] Administration Levothyroxine Sodium 75 mcg 08/16/17 07:00 08/17/17 06:15 Synthroid - PO 75 mcg DAILY@0700 [facility] Administration Melatonin 5 mg 08/15/17 21:34 Melatonin PO HS PRN INSOMNIA Metoprolol Succinate 12.5 mg 08/16/17 10:00 08/17/17 10:07 Toprol Xl - PO 12.5 mg DAILY [facility] Administration Oxycodone HCl 5 mg 08/15/17 21:34 08/17/17 09:53 Roxicodone - PO 5 mg Q4H PRN Administration PAIN LEVEL 4 - 6 Oxycodone HCl 10 mg 08/17/17 16:36 Roxicodone - PO Q6H PRN PAIN LEVEL 7 - 10 Sacubitril/Valsartan 1 tab 08/15/17 22:00 08/17/17 10:06 Entresto 24 Mg-26 Mg Tablet PO 1 tab BID [facility] Administration Senna 2 tab 08/16/17 22:00 08/16/17 21:46 Senna - PO Not Given HS [facility] Warfarin Sodium 1 mg 08/17/17 18:00 Coumadin - PO DAILY@1800 [facility] ASSESSMENT/PLAN: Patient is a 72 year old male with a significant past medical history of congestive heart failure with left chest wall pace maker/AICD, diabetes mellitus with neuropathy, hypertension, PE, ESRD on HD (T,Th,Sat) via right upper arm fistula, SC, colon cancer and atrial fibrillation. Patient presents to the ED from dialysis with a low blood pressure associated with chills during dialysis with a subtherapeutic INR. Imaging: Echo 08/10/17: Mildly dilated with severely decreased LV fx, mild to mod dilated with mod decreased RV fx, mod LAE, mild MR, TR, AR, moderate pericardial effusion. Chest CT: cardiomegaly with moderate pericardial effusion, small amt of pneumopericardium. ID: Sepsis likely secondary to right toe cellulitis: Blood and urine culture ngtd, wound cultures noted. On Zosyn. CT scan of lower right leg shows likely charcoat foot, erosion of the fifth digit. Patient has PM, unable to order MRI. ID following. Seen by vascular, s/p debridement of bone and soft tissue with amputation of 4th and 5th digit on 08/14/17. On Plavix. Cardiology: CHF, Pacemaker/AICD, Hypertension: Hypotensive on admission, BP improving. Started on Toprol 12.5 daily, Losartan 25mg after HD, Entresto 24/26 BID, Isordil. Afib/subtherapeutic INR: s/p heparin drip. Now back on coumadin, INR 3.01. continue Coumadin as ordered. Moderate Pericardial effusion/Elevated trops: Cardiology following, monitor on tele. Further interventions per cardiology. Endocrine: 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: hmga1c 4.9, low bgms. renal diet ordered. check bgms BID. Pulm: PE history: CT chest as noted above Unable to order CTA. As per pulm, no lung path noted. No chest pain, not tachycardic. Echo reviewed. Renal: ESRD: Dialysis via right arm fistula. T,th,sat schedule FEN tolerating PO monitor electrolytes renal diet Prophy Coumadin
[2017-08-17] MEDS ORDERED: ALPRAZolam 0.25 MG TABLET PO ONE (17:00)
[2017-08-17] MEDS: WARFARIN NA 1 MG TABLET (FP) PO SCH ×2 (17:22→21:41)
[2017-08-17] MEDS: SENNOSIDES 8.6MG TABLET (FP) PO SCH (21:11)
[2017-08-17] MEDS: ALPRAZolam 0.25 MG TABLET PO PRN (21:41)
[2017-08-18] MEDS: PIPERACILLIN/TAZOB 2.25 GM 2.25 GM in DEXTROSE 5%-WATER - 50 ML IVPB SCH ×3 (02:00→17:31)
[2017-08-18] MEDS ORDERED: DEXTROSE 5%-WATER - 50 ML IVPB ONE ×3 (05:20→20:48)
[2017-08-18] MEDS ORDERED: PIPERACILLIN/TAZOBACTAM 2.25 GM VIAL IVPB ONE ×3 (05:20→20:48)
[2017-08-18] MEDS: oxyCODONE HCL 5 MG TABLET PO PRN ×3 (05:23→23:52)
[2017-08-18] MEDS: ACETAMINOPHEN 325 MG TABLET (FP) PO PRN ×2 (05:25→09:46)
[2017-08-18] MEDS: DOCUSATE SODIUM 100 MG CAPSULE (FP) PO SCH ×3 (06:52→21:10)
[2017-08-18] MEDS: LEVOTHYROXINE NA 75 MCG TABLET (FP) PO SCH (06:53)
[2017-08-18] MEDS: INSULIN SLIDING SCALE (NOVOLOG) 1 VIAL SQ SCH ×4 (06:53→21:16)
[2017-08-18 07:49] LABS: INR 2.32 (0.82-1.09); PROTHROMBIN TIME (PATIENT) 26.2 SEC (9.7-13.0)
--- NOTE | 2017-08-18 08:40 | PN ---
Progress Note (short form) - Note Progress Note: Patient seen in bed today. pod#4. no pain. vss. Tmax 98.5 +clean dry dressing, -breakthrough bleeding, wbc=9.0, xtig8p=3.9 normal post op pvd Daily betadine dressing changes. VNS at home. Follow up with Dr. Cope for vascular. Will follow. IVABX as per ID. xray reviewed.
[2017-08-18] MEDS: SACUBITRIL/VALSARTAN 24 MG-26 MG TABLET PO SCH ×2 (09:44→21:17)
[2017-08-18] MEDS: ALPRAZolam 0.25 MG TABLET PO PRN ×2 (09:45→21:18)
[2017-08-18] MEDS: CLOPIDOGREL BISULFATE 75 MG TABLET (FP) PO SCH (09:45)
[2017-08-18] MEDS: ISOSORBIDE DINITRATE 20 MG TABLET (FP) PO SCH ×2 (09:47→18:15)
[2017-08-18] MEDS: metoPROLOL SUCCINATE 25 MG TAB.SR.24H (FP) PO SCH (09:47)
--- NOTE | 2017-08-18 10:15 | PN ---
Progress Note, Physician History of Present Illness: He denies chest pain reports at baseline dyspnea, denies palpitations, near or true syncope, orthopnea, PND or LE edema. Left foot pain adequately controlled, able to weight bear. - Current Medication List Current Medications: Active Medications Acetaminophen (Tylenol -) 650 mg PO Q6H PRN PRN Reason: FEVER Last Admin: 08/18/17 09:46 Dose: 650 mg Alprazolam (Xanax -) 0.25 mg PO BID PRN PRN Reason: ANXIETY Last Admin: 08/18/17 09:45 Dose: 0.25 mg Clopidogrel Bisulfate (Plavix -) 75 mg PO DAILY [facility] Last Admin: 08/18/17 09:45 Dose: 75 mg Docusate Sodium (Colace -) 100 mg PO TID [facility] Last Admin: 08/18/17 06:52 Dose: Not Given Guaifenesin (Diabetic Tussin Dm -) 5 ml PO Q6H PRN PRN Reason: COUGH Piperacillin Sod/Tazobactam (Sod 2.25 gm/ Dextrose) 50 mls @ 100 mls/hr IVPB Q8H-IV [facility]; Protocol Last Admin: 08/18/17 09:43 Dose: 100 mls/hr Insulin Aspart (Novolog Vial Sliding Scale -) 1 vial SQ ACHS [facility]; Protocol Last Admin: 08/18/17 06:53 Dose: Not Given Isosorbide Dinitrate (Isordil -) 20 mg PO BIDISORDIL [facility] Last Admin: 08/18/17 09:47 Dose: 20 mg Levothyroxine Sodium (Synthroid -) 75 mcg PO DAILY@0700 [facility] Last Admin: 08/18/17 06:53 Dose: 75 mcg Melatonin (Melatonin) 5 mg PO HS PRN PRN Reason: INSOMNIA Metoprolol Succinate (Toprol Xl -) 12.5 mg PO DAILY [facility] Last Admin: 08/18/17 09:47 Dose: 12.5 mg Oxycodone HCl (Roxicodone -) 5 mg PO Q4H PRN PRN Reason: PAIN LEVEL 4 - 6 Last Admin: 08/17/17 09:53 Dose: 5 mg Oxycodone HCl (Roxicodone -) 10 mg PO Q6H PRN PRN Reason: PAIN LEVEL 7 - 10 Last Admin: 08/18/17 09:44 Dose: 10 mg Sacubitril/Valsartan (Entresto 24 Mg-26 Mg Tablet) 1 tab PO BID [facility] Last Admin: 08/18/17 09:44 Dose: 1 tab Senna (Senna -) 2 tab PO HS [facility] Last Admin: 08/17/17 21:11 Dose: Not Given Warfarin Sodium (Coumadin -) 1 mg PO DAILY@1800 [facility] Last Admin: 08/17/17 21:41 Dose: 1 mg - Objective Vital Signs: Vital Signs Temperature 98.5 F 08/18/17 06:00 Pulse Rate 64 08/18/17 06:00 Respiratory Rate 20 08/18/17 08:38 Blood Pressure 118/57 08/18/17 06:00 O2 Sat by Pulse Oximetry (%) 98 08/18/17 08:38 Constitutional: Yes: No Distress, Calm, Thin Neck: Yes: Supple Cardiovascular: Yes: Regular Rate and Rhythm Respiratory: Yes: Diminished Gastrointestinal: Yes: Normal Bowel Sounds, Soft Edema: No Labs: CBC, BMP 08/17/17 05:30 08/17/17 05:30 INR, PTT INR 2.32 (0.82-1.09) H 08/18/17 06:40 Problem List - Problems (1) Cardiomyopathy Code(s): I42.9 - CARDIOMYOPATHY, UNSPECIFIED Qualifiers: Cardiomyopathy type: unspecified Qualified Code(s): I42.9 - Cardiomyopathy , unspecified (2) ICD (implantable cardioverter-defibrillator) in place Code(s): Z95.810 - PRESENCE OF AUTOMATIC (IMPLANTABLE) CARDIAC DEFIBRILLATOR (3) Atrial fibrillation Code(s): I48.91 - UNSPECIFIED ATRIAL FIBRILLATION Qualifiers: Atrial fibrillation type: unspecified Qualified Code(s): I48.91 - Unspecified atrial fibrillation (4) Cellulitis of right lower extremity Code(s): L03.115 - CELLULITIS OF RIGHT LOWER LIMB (5) ESRD (end stage renal disease) Code(s): N18.6 - END STAGE RENAL DISEASE (6) Hypotension Code(s): I95.9 - HYPOTENSION, UNSPECIFIED Qualifiers: Hypotension type: other hypotension type Qualified Code(s): I95.89 - Other hypotension (7) Hypothyroid Code(s): E03.9 - HYPOTHYROIDISM, UNSPECIFIED Qualifiers: Hypothyroidism type: unspecified Qualified Code(s): E03.9 - Hypothyroidism , unspecified (8) Pericardial effusion Code(s): I31.3 - PERICARDIAL EFFUSION (NONINFLAMMATORY) (9) Amputated toe of right foot Code(s): Z89.421 - ACQUIRED ABSENCE OF OTHER RIGHT TOE(S) (10) Status post peripheral artery angioplasty Code(s): Z98.62 - PERIPHERAL VASCULAR ANGIOPLASTY STATUS (11) Diabetic foot ulcer Code(s): E11.621 - TYPE 2 DIABETES MELLITUS WITH FOOT ULCER; L97.509 - NON- PRESSURE CHRONIC ULCER OTH PRT UNSP FOOT W UNSP SEVERITY (12) Open wound of foot Code(s): S91.309A - UNSPECIFIED OPEN WOUND, UNSPECIFIED FOOT, INITIAL ENCOUNTER Qualifiers: Encounter type: subsequent encounter Laterality: right Qualified Code(s) : S91.301D - Unspecified open wound, right foot, subsequent encounter Assessment/Plan 08/11/2017 Echo: Mildly dilated with severly decreased LV fxn, mild-mod dilated with mod decreased RV fxn, mod LAE, mild MR, TR, AR, moderate pericardial effusion not in tamponade 01/19/2016 Echo: Mild LV dilatation, mild cLVH, LVEF 15-20%, diastolic dysfunction, severe LAE, mod NEGRO, mild AR, MR, TR, NH RVSP 52 mmHg, small pericardial effusion 11/11/2016 Lexiscan: Large PA involving apex, inferior wall, inferolateral small area mild periinfarct ischemia mid anterior wall, dilated severly decreased LVEF 26, RV dilated 1. Ischemic dilated cardiomyopathy s/p ICD 2. ESRD on HD T, TH, Sat RUE AVF 3. Pericardial effusion ? uremic pericarditis 4. Hypothyroidism 5. Persistent afib [id number] score of 3-4 on Coumadin with therapeutic INR 6. 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 hx of colon cancer 8. DM 9. hx of PE 10. CAD s/p PA, post demand ischemia 11. DM c/b neuropathy Plan 1. Empiric abx course per C&S, post-op wound care 2. HD as hemodynamics tolerate to reduce pericardial effusion, hold Lasix 3. Continue Coumadin dose per INR and Plavix 75 qd with caution given pericardial effusion 4. Resumed Toprol 12.5 qd, Entresto 24/ bid as hemodynamics tolerate, Isordil 20 bid started by vascular 5. Patient saw Dr. Jayjay Karimi at [facility] 06/23/2017 pre-renal transplant eval, outpt records reviewed, usually sees Dr. Ghassan Durant at [facility]
--- NOTE | 2017-08-18 10:47 | PATH ---
Surgical Pathology Report Patient Name: BETTYE VALERIO [facility]. Rec. #: [id number] /Age/Gender: 1945 (Age: 72) / M Account: [id number] Location: 4 W TELEMETRY U Taken: 08/14/2017 Received: 08/15/2017 Reported: 08/18/2017 Physicians: SAMUEL Cunningham F.NQuan Specimen(s) Received 4TH AND 5TH TOES, RIGHT FOOT Clinical History Gangrene right foot Final Diagnosis RIGHT FOOT, 4TH AND 5TH TOES, AMPUTATION: AMPUTATED TOES AND SEPARATE PIECES OF SKIN AND SOFT TISSUE SHOWING GANGRENOUS NECROSIS, SEVERE ACUTE AND CHRONIC INFLAMMATION WITH ABSCESS FORMATION. ACUTE OSTEOMYELITIS PRESENT IN TOES AND SEPARATE PIECES OF BONE. ACUTE AND CHRONIC INFLAMMATION EXTENDS INTO THE SKIN AND SOFT TISSUE MARGIN. SEPARATE SKIN AND SOFT TISSUE FRAGMENTS WITH ABSCESS FORMATION. Electronically Signed Dania Luo M.D. Gross Description Received in formalin labeled "fourth and fifth toes right foot," are 2 undesignated toe amputation specimens measuring 3.1 x 3.0 x 2.0 cm and 4.0 x 1.7 x 1.5 cm. Both specimens display a gangrenous lesion involving the underlying bone as well as the skin and soft tissue margin. There are 2 additional portions of undesignated bone separately received within the same container. The separately received bones measure 1.7 x 1.3 x 1.1 cm and 2.1 x 1.5 x 1.5 cm. Also received within the same container is a 2.0 x 1.8 x 0.4 cm aggregate of dawn-murray soft tissue fragments. [place] sections are submitted in 7 cassettes as follows: 1-smaller toe lesion with underlying bone, following decalcification; 2-skin, soft tissue and bone margin from smaller toe, following decalcification; 3-larger toe lesion with underlying bone, following decalcification; 4-skin, soft tissue and bone margin from larger toe, following decalcification; [id number] separately received portions of bone, following decalcification; 7-separately received soft tissue fragments. /08/15/2017 saudi08/15/2017
--- NOTE | 2017-08-18 11:27 | PN ---
Progress Note, Physician History of Present Illness: still awaiting sensitivities of the organism patient stable doing well tolerating dialysis has been afebrile and wbc has been normal - Current Medication List Current Medications: Active Medications Acetaminophen (Tylenol -) 650 mg PO Q6H PRN PRN Reason: FEVER Last Admin: 08/18/17 09:46 Dose: 650 mg Alprazolam (Xanax -) 0.25 mg PO BID PRN PRN Reason: ANXIETY Last Admin: 08/18/17 09:45 Dose: 0.25 mg Clopidogrel Bisulfate (Plavix -) 75 mg PO DAILY [facility] Last Admin: 08/18/17 09:45 Dose: 75 mg Docusate Sodium (Colace -) 100 mg PO TID [facility] Last Admin: 08/18/17 06:52 Dose: Not Given Guaifenesin (Diabetic Tussin Dm -) 5 ml PO Q6H PRN PRN Reason: COUGH Piperacillin Sod/Tazobactam (Sod 2.25 gm/ Dextrose) 50 mls @ 100 mls/hr IVPB Q8H-[facility]; Protocol Last Admin: 08/18/17 09:43 Dose: 100 mls/hr Insulin Aspart (Novolog Vial Sliding Scale -) 1 vial SQ ACHS [facility]; Protocol Last Admin: 08/18/17 06:53 Dose: Not Given Isosorbide Dinitrate (Isordil -) 20 mg PO BIDISORDIL [facility] Last Admin: 08/18/17 09:47 Dose: 20 mg Levothyroxine Sodium (Synthroid -) 75 mcg PO DAILY@0700 [facility] Last Admin: 08/18/17 06:53 Dose: 75 mcg Melatonin (Melatonin) 5 mg PO HS PRN PRN Reason: INSOMNIA Metoprolol Succinate (Toprol Xl -) 12.5 mg PO DAILY [facility] Last Admin: 08/18/17 09:47 Dose: 12.5 mg Oxycodone HCl (Roxicodone -) 5 mg PO Q4H PRN PRN Reason: PAIN LEVEL 4 - 6 Last Admin: 08/17/17 09:53 Dose: 5 mg Oxycodone HCl (Roxicodone -) 10 mg PO Q6H PRN PRN Reason: PAIN LEVEL 7 - 10 Last Admin: 08/18/17 09:44 Dose: 10 mg Sacubitril/Valsartan (Entresto 24 Mg-26 Mg Tablet) 1 tab PO BID [facility] Last Admin: 08/18/17 09:44 Dose: 1 tab Senna (Senna -) 2 tab PO HS [facility] Last Admin: 08/17/17 21:11 Dose: Not Given Warfarin Sodium (Coumadin -) 1 mg PO DAILY@1800 [facility] Last Admin: 08/17/17 21:41 Dose: 1 mg - Objective Vital Signs: Vital Signs Temperature 98.5 F 08/18/17 06:00 Pulse Rate 64 08/18/17 06:00 Respiratory Rate 20 08/18/17 08:38 Blood Pressure 118/57 08/18/17 06:00 O2 Sat by Pulse Oximetry (%) 98 08/18/17 08:38 Constitutional: Yes: No Distress, Calm Cardiovascular: Yes: Regular Rate and Rhythm Respiratory: Yes: Regular, CTA Bilaterally Gastrointestinal: Yes: Normal Bowel Sounds, Soft Musculoskeletal: Yes: Other Extremities: Yes: Other Wound/Incision: Yes: Dressing Dry and Intact Neurological: Yes: Alert, Oriented Psychiatric: Yes: Alert, Oriented Labs: INR, PTT INR 2.32 (0.82-1.09) H 08/18/17 06:40 Assessment/Plan patient coming in a type of sepsis picture i think his invection is coming from the wound itself he has multiple other issues Problem List - Problems (1) Atrial fibrillation Code(s): I48.91 - UNSPECIFIED ATRIAL FIBRILLATION Qualifiers: Atrial fibrillation type: unspecified Qualified Code(s): I48.91 - Unspecified atrial fibrillation (2) Cardiomyopathy Code(s): I42.9 - CARDIOMYOPATHY, UNSPECIFIED Qualifiers: Cardiomyopathy type: unspecified Qualified Code(s): I42.9 - Cardiomyopathy , unspecified (3) Cellulitis of right lower extremity Code(s): L03.115 - CELLULITIS OF RIGHT LOWER LIMB (4) ESRD (end stage renal disease) Code(s): N18.6 - END STAGE RENAL DISEASE (5) Hypotension Code(s): I95.9 - HYPOTENSION, UNSPECIFIED Qualifiers: Hypotension type: other hypotension type Qualified Code(s): I95.89 - Other hypotension (6) Hypothyroid Code(s): E03.9 - HYPOTHYROIDISM, UNSPECIFIED Qualifiers: Hypothyroidism type: unspecified Qualified Code(s): E03.9 - Hypothyroidism , unspecified (7) ICD (implantable cardioverter-defibrillator) in place Code(s): Z95.810 - PRESENCE OF AUTOMATIC (IMPLANTABLE) CARDIAC DEFIBRILLATOR (8) Open wound of foot Code(s): S91.309A - UNSPECIFIED OPEN WOUND, UNSPECIFIED FOOT, INITIAL ENCOUNTER Qualifiers: Encounter type: initial encounter Laterality: right Qualified Code(s): S91.301A - Unspecified open wound, right foot, initial encounter plan continue abx await for cx report and sensitivites continue zosyn rest as per the team wound care once we have all patient will need treatment for 4 weeks
[2017-08-18 11:31] LABS: BASO % 0.3 % (0-2.0); EOS % 2.3 % (0-4.5); HEMATOCRIT 38.9 % (35.4-49); HEMOGLOBIN 12.1 GM/dL (11.7-16.9); LYMPH % 8.8 % (8-40); MCH 28.7 pg (25.7-33.7); MCHC 31.1 g/dl (32.0-35.9); MEAN CELL VOLUME 92.2 fl (80-96); MEAN PLT VOLUME 11.5 fl (7.5-11.1); MONO % 12.7 % (3.8-10.2); NEUT % 75.9 % (42.8-82.8); PLATELET COUNT 236 K/MM3 (134-434); RBC 4.22 M/mm3 (4.00-5.60); RDW 20.4 % (11.9-15.9); WHITE BLOOD COUNT 8.8 K/mm3 (4.0-10.0)
[2017-08-18 11:42] LABS: ALBUMIN 2.6 g/dl (3.4-5.0); CHLORIDE 99 mmol/L (98-107); POTASSIUM 4.1 mmol/L (3.5-5.1); SODIUM 141 mmol/L (136-145)
[2017-08-18 11:54] LABS: ALK PHOS 153 U/L (45-117); ANION GAP 11 (8-16); BILIRUBIN,TOTAL 1.9 mg/dL (0.2-1.0); BLOOD UREA NITROGEN 24 mg/dL (7-18); CALCIUM 8.1 mg/dL (8.5-10.1); CO2 31 mmol/L (21-32); GLUCOSE,RANDOM 87 mg/dL (74-106); MAGNESIUM 2.1 mg/dL (1.8-2.4); SGOT/AST 38 U/L (15-37); SGPT/ALT 18 U/L (12-78); TOT PROT 7.6 g/dl (6.4-8.2)
[2017-08-18 12:29] LABS: ANISOCYTOSIS 2+; MACROCYTOSIS 0; OVALOCYTE 1+; PLATELET ESTIMATE NORMAL
--- NOTE | 2017-08-18 13:13 | PN ---
Progress Note (short form) - Note Progress Note: S/p left tibial revascularization Left foot with bloody drainage from wound. Foot warm Stable Will observe for healing, may need additional vascular interventions if distal foot remains ischemic. Problem List - Problems (1) Open wound of foot Code(s): S91.309A - UNSPECIFIED OPEN WOUND, UNSPECIFIED FOOT, INITIAL ENCOUNTER Qualifiers: Encounter type: subsequent encounter Laterality: right Qualified Code(s) : S91.301D - Unspecified open wound, right foot, subsequent encounter
[2017-08-18 14:18] LABS: HBSAG SCREEN Negative (Negative); HEP B CORE AB, TOT Negative (Negative)
--- NOTE | 2017-08-18 14:56 | PN ---
Progress Note, Physician History of Present Illness: Pt seen and examined at bedside. He is awake and alert. He denies shortness of breath. - Current Medication List Current Medications: Active Medications Acetaminophen (Tylenol -) 650 mg PO Q6H PRN PRN Reason: FEVER Last Admin: 08/18/17 09:46 Dose: 650 mg Alprazolam (Xanax -) 0.25 mg PO BID PRN PRN Reason: ANXIETY Last Admin: 08/18/17 09:45 Dose: 0.25 mg Clopidogrel Bisulfate (Plavix -) 75 mg PO DAILY [facility] Last Admin: 08/18/17 09:45 Dose: 75 mg Docusate Sodium (Colace -) 100 mg PO TID [facility] Last Admin: 08/18/17 14:20 Dose: Not Given Guaifenesin (Diabetic Tussin Dm -) 5 ml PO Q6H PRN PRN Reason: COUGH Piperacillin Sod/Tazobactam (Sod 2.25 gm/ Dextrose) 50 mls @ 100 mls/hr IVPB Q8H-IV [facility]; Protocol Last Admin: 08/18/17 09:43 Dose: 100 mls/hr Insulin Aspart (Novolog Vial Sliding Scale -) 1 vial SQ ACHS [facility]; Protocol Last Admin: 08/18/17 14:20 Dose: Not Given Isosorbide Dinitrate (Isordil -) 20 mg PO BIDISORDIL [facility] Last Admin: 08/18/17 09:47 Dose: 20 mg Levothyroxine Sodium (Synthroid -) 75 mcg PO DAILY@0700 [facility] Last Admin: 08/18/17 06:53 Dose: 75 mcg Melatonin (Melatonin) 5 mg PO HS PRN PRN Reason: INSOMNIA Metoprolol Succinate (Toprol Xl -) 12.5 mg PO DAILY [facility] Last Admin: 08/18/17 09:47 Dose: 12.5 mg Oxycodone HCl (Roxicodone -) 5 mg PO Q4H PRN PRN Reason: PAIN LEVEL 4 - 6 Last Admin: 08/17/17 09:53 Dose: 5 mg Oxycodone HCl (Roxicodone -) 10 mg PO Q6H PRN PRN Reason: PAIN LEVEL 7 - 10 Last Admin: 08/18/17 09:44 Dose: 10 mg Sacubitril/Valsartan (Entresto 24 Mg-26 Mg Tablet) 1 tab PO BID [facility] Last Admin: 08/18/17 09:44 Dose: 1 tab Senna (Senna -) 2 tab PO HS [facility] Last Admin: 08/17/17 21:11 Dose: Not Given Warfarin Sodium (Coumadin -) 1 mg PO DAILY@1800 [facility] Last Admin: 08/17/17 21:41 Dose: 1 mg - Objective Vital Signs: Vital Signs Temperature 98.5 F 08/18/17 06:00 Pulse Rate 64 08/18/17 06:00 Respiratory Rate 20 08/18/17 08:38 Blood Pressure 118/57 08/18/17 06:00 O2 Sat by Pulse Oximetry (%) 98 08/18/17 08:38 Constitutional: Yes: Calm Eyes: Yes: Conjunctiva Clear HENT: Yes: Atraumatic Neck: Yes: Supple Cardiovascular: Yes: S1, S2 Respiratory: Yes: CTA Bilaterally Gastrointestinal: Yes: Normal Bowel Sounds, Soft Genitourinary: Yes: WNL Extremities: Yes: Other (dressing in place) Edema: No Neurological: Yes: Oriented Psychiatric: Yes: Oriented Labs: CBC, BMP 08/18/17 06:40 08/18/17 06:40 INR, PTT INR 2.32 (0.82-1.09) H 08/18/17 06:40 Problem List - Problems (1) ESRD (end stage renal disease) Code(s): N18.6 - END STAGE RENAL DISEASE (2) Pericardial effusion Code(s): I31.3 - PERICARDIAL EFFUSION (NONINFLAMMATORY) (3) Hypotension Code(s): I95.9 - HYPOTENSION, UNSPECIFIED Qualifiers: Hypotension type: other hypotension type Qualified Code(s): I95.89 - Other hypotension (4) Hypothyroid Code(s): E03.9 - HYPOTHYROIDISM, UNSPECIFIED Qualifiers: Hypothyroidism type: unspecified Qualified Code(s): E03.9 - Hypothyroidism , unspecified (5) Atrial fibrillation Code(s): I48.91 - UNSPECIFIED ATRIAL FIBRILLATION Qualifiers: Atrial fibrillation type: unspecified Qualified Code(s): I48.91 - Unspecified atrial fibrillation (6) Open wound of foot Code(s): S91.309A - UNSPECIFIED OPEN WOUND, UNSPECIFIED FOOT, INITIAL ENCOUNTER Qualifiers: Encounter type: subsequent encounter Laterality: right Qualified Code(s) : S91.301D - Unspecified open wound, right foot, subsequent encounter Assessment/Plan Current Medications Generic Name Dose Route Start Last Admin Trade Name Freq PRN Reason Stop Dose Admin Acetaminophen 650 mg 08/15/17 21:34 08/18/17 09:46 Tylenol - PO 650 mg Q6H PRN Administration FEVER Alprazolam 0.25 mg 08/16/17 13:50 08/18/17 09:45 Xanax - PO 0.25 mg BID PRN Administration ANXIETY Clopidogrel Bisulfate 75 mg 08/15/17 21:15 08/18/17 09:45 Plavix - PO 75 mg DAILY [facility] Administration Docusate Sodium 100 mg 08/16/17 14:00 08/18/17 14:20 Colace - PO Not Given TID [facility] Guaifenesin 5 ml 08/15/17 21:34 Diabetic Tussin Dm - PO Q6H PRN COUGH Piperacillin Sod/Tazobactam 50 mls @ 100 mls/hr 08/16/17 02:00 08/18/17 09:43 Sod 2.25 gm/ Dextrose IVPB 100 mls/hr Q8H-IV [facility] Administration Protocol Insulin Aspart 1 vial 08/15/17 22:00 08/18/17 14:20 Novolog Vial Sliding Scale - SQ Not Given ACHS [facility] Protocol Isosorbide Dinitrate 20 mg 08/16/17 10:00 08/18/17 09:47 Isordil - PO 20 mg BIDISORDIL [facility] Administration Levothyroxine Sodium 75 mcg 08/16/17 07:00 08/18/17 06:53 Synthroid - PO 75 mcg DAILY@0700 [facility] Administration Melatonin 5 mg 08/15/17 21:34 Melatonin PO HS PRN INSOMNIA Metoprolol Succinate 12.5 mg 08/16/17 10:00 08/18/17 09:47 Toprol Xl - PO 12.5 mg DAILY [facility] Administration Oxycodone HCl 5 mg 08/15/17 21:34 08/17/17 09:53 Roxicodone - PO 5 mg Q4H PRN Administration PAIN LEVEL 4 - 6 Oxycodone HCl 10 mg 08/17/17 16:36 08/18/17 09:44 Roxicodone - PO 10 mg Q6H PRN Administration PAIN LEVEL 7 - 10 Sacubitril/Valsartan 1 tab 07/03/18 22:00 08/18/17 09:44 Entresto 24 Mg-26 Mg Tablet PO 1 tab BID [facility] Administration Senna 2 tab 08/16/17 22:00 08/17/17 21:11 Senna - PO Not Given HS [facility] Warfarin Sodium 1 mg 08/17/17 18:00 08/17/17 21:41 Coumadin - PO 1 mg DAILY@1800 [facility] Administration Impression 1. ESRD 2. pericardial effusion 3. pneumopericardium 4. hypothyroidism 5. a-fib 6. hypotension 7. hx of colon cancer 8. CHF 9. DM 10. hx of PE 11. CAD Plan - HD in am - vascular input appreciated, cont to monitor leg - cont wound care - monitor bp, pt runs low - will order albumin with HD - abx per ID - will follow Dr Conklin
[2017-08-18] MEDS ORDERED: SODIUM CHLORIDE 250 ML IV PRN (14:57)
--- NOTE | 2017-08-18 16:12 | PN ---
Physical Exam: SUBJECTIVE: Patient seen and examined at the bedside. Sitting up in bed, in no distress. States he feels better, left foot pain is managed currently. OBJECTIVE: Vital Signs Period Temp Pulse Resp BP Sys/Yoon Pulse Ox Last 24 Hr 97.1 F-99.0 F 64-66 20-20 84-141/44-57 98-98 GENERAL: The patient is awake, alert, and fully oriented, anxious HEAD: Normal with no signs of trauma. EYES: PERRL, extraocular movements intact, sclera anicteric, conjunctiva clear. No ptosis. ENT: Ears normal, nares patent, oropharynx clear without exudates, moist mucous membranes. NECK: Trachea midline, full range of motion, supple. LUNGS: Breath sounds equal, clear to auscultation bilaterally, no wheezes, no crackles, no accessory muscle use. ABDOMEN: Soft, nontender, nondistended, normoactive bowel sounds, no guarding, no rebound, no hepatosplenomegaly, no masses. EXTREMITIES: right foot bandage, c/d/i NEUROLOGICAL: Normal speech, gait not observed. PSYCH: Normal mood, normal affect. SKIN: Warm, dry, normal turgor, no rashes or lesions noted Laboratory Results - last 24 hr 08/12/17 08/17/17 08/18/17 21:30 21:08 05:46 WBC RBC Hgb Hct MCV MCH MCHC RDW Plt Count MPV Absolute Neuts (auto) Neutrophils % Neutrophils % (Manual) Band Neutrophils % Lymphocytes % Lymphocytes % (Manual) Monocytes % Monocytes % (Manual) Eosinophils % Eosinophils % (Manual) Basophils % Basophils % (Manual) Myelocytes % (Man) Promyelocytes % (Man) Blast Cells % (Manual) Nucleated RBC % Metamyelocytes Hypochromia Platelet Estimate Polychromasia Poikilocytosis Anisocytosis Microcytosis Macrocytosis Ovalocytes PT with INR INR Sodium Potassium Chloride Carbon Dioxide Anion Gap BUN Creatinine Creat Clearance w eGFR POC Glucometer 124 98 Random Glucose Calcium Magnesium Total Bilirubin AST ALT Alkaline Phosphatase Total Protein Albumin Hepatitis A Ab Total Negative Hep Bs Antigen Negative Hep Bs Antibody Non reactive Hep B Core Total Ab Negative 08/18/17 08/18/17 08/18/17 06:40 06:40 06:40 WBC 8.8 RBC 4.22 Hgb 12.1 Hct 38.9 MCV 92.2 MCH 28.7 MCHC 31.1 L RDW 20.4 H Plt Count 236 MPV 11.5 H D Absolute Neuts (auto) 6.7 Neutrophils % 75.9 Neutrophils % (Manual) 75.0 Band Neutrophils % 0.0 Lymphocytes % 8.8 D Lymphocytes % (Manual) 13.9 D Monocytes % 12.7 H Monocytes % (Manual) 5 Eosinophils % 2.3 Eosinophils % (Manual) 2.8 Basophils % 0.3 Basophils % (Manual) 0.0 Myelocytes % (Man) 0 Promyelocytes % (Man) 0 Blast Cells % (Manual) 0 Nucleated RBC % 0 Metamyelocytes 0 Hypochromia 1+ Platelet Estimate Normal Polychromasia 1+ Poikilocytosis 3+ Anisocytosis 2+ Microcytosis 1+ Macrocytosis 0 Ovalocytes 1+ PT with INR 26.20 H INR 2.32 H Sodium 141 Potassium 4.1 Chloride 99 Carbon Dioxide 31 Anion Gap 11 BUN 24 H Creatinine 7.0 H Creat Clearance w eGFR 7.80 POC Glucometer Random Glucose 87 Calcium 8.1 L Magnesium 2.1 Total Bilirubin 1.9 H AST 38 H ALT 18 Alkaline Phosphatase 153 H D Total Protein 7.6 Albumin 2.6 L Hepatitis A Ab Total Hep Bs Antigen Hep Bs Antibody Hep B Core Total Ab Active Medications Generic Name Dose Route Start Last Admin Trade Name Freq PRN Reason Stop Dose Admin Acetaminophen 650 mg 08/15/17 21:34 08/18/17 09:46 Tylenol - PO 650 mg Q6H PRN Administration FEVER Albumin Human 12.5 gm 08/19/17 15:00 Albumin Human 25% IVPB Q30M [facility] Alprazolam 0.25 mg 08/16/17 13:50 08/18/17 09:45 Xanax - PO 0.25 mg BID PRN Administration ANXIETY Clopidogrel Bisulfate 75 mg 08/15/17 21:15 08/18/17 09:45 Plavix - PO 75 mg DAILY [facility] Administration Docusate Sodium 100 mg 08/16/17 14:00 08/18/17 14:20 Colace - PO Not Given TID [facility] Guaifenesin 5 ml 08/15/17 21:34 Diabetic Tussin Dm - PO Q6H PRN COUGH Piperacillin Sod/Tazobactam 50 mls @ 100 mls/hr 08/16/17 02:00 08/18/17 09:43 Sod 2.25 gm/ Dextrose IVPB 100 mls/hr Q8H-IV [facility] Administration Protocol Sodium Chloride 250 mls @ 3,000 mls/hr 08/18/17 14:57 Normal Saline - IV 08/19/17 14:57 PRN PRN Hypotension during Dialysis Insulin Aspart 1 vial 08/15/17 22:00 08/18/17 14:20 Novolog Vial Sliding Scale - SQ Not Given ACHS [facility] Protocol Isosorbide Dinitrate 20 mg 08/16/17 10:00 08/18/17 09:47 Isordil - PO 20 mg BIDISORDIL [facility] Administration Levothyroxine Sodium 75 mcg 08/16/17 07:00 08/18/17 06:53 Synthroid - PO 75 mcg DAILY@0700 [facility] Administration Melatonin 5 mg 08/15/17 21:34 Melatonin PO HS PRN INSOMNIA Metoprolol Succinate 12.5 mg 08/16/17 10:00 08/18/17 09:47 Toprol Xl - PO 12.5 mg DAILY [facility] Administration Oxycodone HCl 5 mg 08/15/17 21:34 08/17/17 09:53 Roxicodone - PO 5 mg Q4H PRN Administration PAIN LEVEL 4 - 6 Oxycodone HCl 10 mg 08/17/17 16:36 08/18/17 09:44 Roxicodone - PO 10 mg Q6H PRN Administration PAIN LEVEL 7 - 10 Sacubitril/Valsartan 1 tab 08/15/17 22:00 08/18/17 09:44 Entresto 24 Mg-26 Mg Tablet PO 1 tab BID [facility] Administration Senna 2 tab 08/16/17 22:00 08/17/17 21:11 Senna - PO Not Given HS [facility] Warfarin Sodium 1 mg 08/17/17 18:00 08/17/17 21:41 Coumadin - PO 1 mg DAILY@1800 [facility] Administration ASSESSMENT/PLAN: Patient is a 72 year old male with a significant past medical history of congestive heart failure with left chest wall pace maker/AICD, diabetes mellitus with neuropathy, hypertension, PE (on Coumadin), ESRD on HD (T,Th,Sat) via right upper arm fistula, WV, colon cancer and atrial fibrillation (on Coumadin). Patient presents to the ED from dialysis with a low blood pressure associated with chills during dialysis with a subtherapeutic INR. Imaging: Echo 08/10/17: Mildly dilated with severely decreased LV fx, mild to mod dilated with mod decreased RV fx, mod LAE, mild MR, TR, AR, moderate pericardial effusion. Chest CT: cardiomegaly with moderate pericardial effusion, small amt of pneumopericardium. ID: Sepsis likely secondary to right toe cellulitis: Blood and urine culture ngtd, wound cultures noted. On Zosyn. CT scan of lower right leg shows likely charcoat foot, erosion of the fifth digit. Patient has PM, unable to order MRI. ID following. Seen by vascular, s/p debridement of bone and soft tissue with amputation of 4th and 5th digit on 08/14/17. On Plavix. Observe for healing. May need additional vascular interventions. Cardiology: CHF, Pacemaker/AICD, Hypertension: On Toprol 12.5 daily, Losartan 25mg after HD , Entresto 24/26 BID, Isordil. Afib/therapeutic INR: s/p heparin drip. Now back on coumadin, INR 2.3 continue Coumadin as ordered. Moderate Pericardial effusion/Elevated trops: Cardiology following, monitor on tele. Further interventions per cardiology. Endocrine: 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: hmga1c 4.9, low bgms. renal diet ordered. Pulm: PE history: CT chest as noted above Unable to order CTA. As per pulm, no lung path noted. No chest pain, not tachycardic. Echo reviewed. On Coumadin. Renal: ESRD: Dialysis via right arm fistula. T,th,sat schedule FEN tolerating PO monitor electrolytes renal diet Prophy Coumadin Visit type - Emergency Visit Emergency Visit: Yes ED Registration Date: 08/10/17 Care time: The patient presented to the Emergency Department on the above date and was hospitalized for further evaluation of their emergent condition. - New Patient This patient is new to me today: No - Critical Care Critical Care patient: No - Discharge Referral Referred to [facility] No
[2017-08-18] MEDS ORDERED: WARFARIN NA 2 MG TABLET (UD) PO SCH (18:00)
[2017-08-18] MEDS ORDERED: PT OWN MED DRAWER 7, Y5N ONE ×2 (18:16→20:57)
[2017-08-18] MEDS: SENNOSIDES 8.6MG TABLET (FP) PO SCH (21:16)
[2017-08-19] MEDS: ACETAMINOPHEN 325 MG TABLET (FP) PO PRN (01:25)
[2017-08-19] MEDS: PIPERACILLIN/TAZOB 2.25 GM 2.25 GM in DEXTROSE 5%-WATER - 50 ML IVPB SCH ×3 (03:00→17:38)
[2017-08-19] MEDS ORDERED: PIPERACILLIN/TAZOBACTAM 2.25 GM VIAL IVPB ONE ×3 (03:20→17:24)
[2017-08-19] MEDS ORDERED: DEXTROSE 5%-WATER - 50 ML IVPB ONE ×3 (03:20→17:24)
[2017-08-19] MEDS: DOCUSATE SODIUM 100 MG CAPSULE (FP) PO SCH ×3 (06:09→22:01)
[2017-08-19] MEDS: INSULIN SLIDING SCALE (NOVOLOG) 1 VIAL SQ SCH ×2 (06:10→11:21)
[2017-08-19] MEDS ORDERED: PT OWN MED DRAWER 7, Y5N ONE ×4 (06:37→21:00)
--- NOTE | 2017-08-19 07:53 | PN ---
Progress Note (short form) - Note Progress Note: Patient seen in bed today. pod#5. no pain. vss. Tmax 98.2 +clean dry dressing, -breakthrough bleeding, wbc=8.8, wmzx6m=8.9 normal post op pvd betadine dressing change. VNS at home. Red and appreciated dr. Cope note. will follow. Can be dc from Pod[facility]. PTR to [facility].
[2017-08-19 08:04] LABS: BASO % 0.3 % (0-2.0); EOS % 2.2 % (0-4.5); HEMATOCRIT 34.9 % (35.4-49); HEMOGLOBIN 11.2 GM/dL (11.7-16.9); LYMPH % 7.1 % (8-40); MCH 29.4 pg (25.7-33.7); MEAN CELL VOLUME 91.7 fl (80-96); MEAN PLT VOLUME 10.1 fl (7.5-11.1); MONO % 14.2 % (3.8-10.2); NEUT % 76.2 % (42.8-82.8); PLATELET COUNT 228 K/MM3 (134-434); RBC 3.81 M/mm3 (4.00-5.60); RDW 20.5 % (11.9-15.9); WHITE BLOOD COUNT 9.6 K/mm3 (4.0-10.0)
[2017-08-19 08:33] LABS: ALBUMIN 2.4 g/dl (3.4-5.0); ANION GAP 11 (8-16); BLOOD UREA NITROGEN 32 mg/dL (7-18); CALCIUM 8.3 mg/dL (8.5-10.1); CHLORIDE 98 mmol/L (98-107); CO2 30 mmol/L (21-32); GLUCOSE,RANDOM 87 mg/dL (74-106); MAGNESIUM 2.1 mg/dL (1.8-2.4); POTASSIUM 4.4 mmol/L (3.5-5.1); SGOT/AST 35 U/L (15-37); SGPT/ALT 16 U/L (12-78); SODIUM 139 mmol/L (136-145); TOT PROT 7.3 g/dl (6.4-8.2)
[2017-08-19 08:39] LABS: ALK PHOS 137 U/L (45-117); BILIRUBIN,TOTAL 1.6 mg/dL (0.2-1.0)
[2017-08-19 09:14] LABS: CREATININE 8.6 mg/dL (0.7-1.3)
[2017-08-19 09:26] LABS: ANISOCYTOSIS 1+; PLATELET ESTIMATE ADEQUATE
[2017-08-19 10:00] LABS: INR 2.25 (0.82-1.09); PROTHROMBIN TIME (PATIENT) 25.4 SEC (9.7-13.0)
[2017-08-19] MEDS: oxyCODONE HCL 5 MG TABLET PO PRN ×2 (10:12→17:45)
--- NOTE | 2017-08-19 10:16 | PN ---
Progress Note (short form) - Note Progress Note: Chief Complaint: Events noted, notes reviewed, denies any chest pain or dyspnea , complaining of foot discomfort, currently on HD History of Present Illness: Seen and examined on telemetry. Events noted, notes reviewed, denies any chest pain or dyspnea, complaining of foot discomfort, currently on HD Echocardiography dated 08/11/2017 revealed mildly dilated LV with severely decreased LV function, mild-moderately dilated RV with moderately decreased RV function, moderate LAE, mild MR, TR, AR, moderate pericardial effusion with evidence of cardiac tamponade Lexiscan MPI study dated 11/11/2016 revealed large WV involving apex, inferior wall, infero-lateral small area mild royce-infarct ischemia mid anterior wall, dilated severely decreased LVEF 26, RV dilated - Current Medication List Current Medications Acetaminophen (Tylenol -) 650 mg PO Q6H PRN PRN Reason: FEVER Last Admin: 08/19/17 01:25 Dose: 650 mg Albumin Human (Albumin Human 25%) 12.5 gm IVPB Q30M [facility] Alprazolam (Xanax -) 0.25 mg PO BID PRN PRN Reason: ANXIETY Last Admin: 08/18/17 21:18 Dose: 0.25 mg Clopidogrel Bisulfate (Plavix -) 75 mg PO DAILY [facility] Last Admin: 08/18/17 09:45 Dose: 75 mg Docusate Sodium (Colace -) 100 mg PO TID [facility] Last Admin: 08/19/17 06:09 Dose: Not Given Guaifenesin (Diabetic Tussin Dm -) 5 ml PO Q6H PRN PRN Reason: COUGH Piperacillin Sod/Tazobactam (Sod 2.25 gm/ Dextrose) 50 mls @ 100 mls/hr IVPB Q8H-IV [facility]; Protocol Last Admin: 08/19/17 03:00 Dose: 100 mls/hr Sodium Chloride (Normal Saline -) 250 mls @ 3,000 mls/hr IV PRN PRN PRN Reason: Hypotension during Dialysis Stop: 08/19/17 14:57 Insulin Aspart (Novolog Vial Sliding Scale -) 1 vial SQ ACHS [facility]; Protocol Last Admin: 08/19/17 06:10 Dose: Not Given Isosorbide Dinitrate (Isordil -) 20 mg PO BIDISORDIL [facility] Last Admin: 07/06/18 18:15 Dose: 20 mg Levothyroxine Sodium (Synthroid -) 75 mcg PO DAILY@0700 [facility] Last Admin: 08/18/17 06:53 Dose: 75 mcg Melatonin (Melatonin) 5 mg PO HS PRN PRN Reason: INSOMNIA Metoprolol Succinate (Toprol Xl -) 12.5 mg PO DAILY [facility] Last Admin: 08/18/17 09:47 Dose: 12.5 mg Oxycodone HCl (Roxicodone -) 5 mg PO Q4H PRN PRN Reason: PAIN LEVEL 4 - 6 Last Admin: 08/17/17 09:53 Dose: 5 mg Oxycodone HCl (Roxicodone -) 10 mg PO Q6H PRN PRN Reason: PAIN LEVEL 7 - 10 Last Admin: 08/18/17 23:52 Dose: 10 mg Sacubitril/Valsartan (Entresto 24 Mg-26 Mg Tablet) 1 tab PO BID [facility] Last Admin: 08/18/17 21:17 Dose: Not Given Senna (Senna -) 2 tab PO [facility] Last Admin: 08/18/17 21:16 Dose: Not Given Warfarin Sodium (Coumadin -) 2 mg PO DAILY@1800 [facility] Last Admin: 08/18/17 17:39 Dose: 2 mg - Review of Systems Constitutional: denies: Chills, Fever Cardiovascular: As noted above Respiratory: denies: Cough or Sputum Production Gastrointestinal: denies: Nausea, Vomiting, Diarrhea, Constipation or Abdominal Pain Genitourinary: HD Neurological: denies: Dizziness or Headaches Endocrine: denies: Intolerance to Cold, Intolerance to Heat - Objective Vital Signs: Last Vital Signs Temp Pulse Resp BP Pulse Ox 98.4 F 65 18 108/65 99 08/19/17 08:20 08/19/17 10:07 08/19/17 10:07 08/19/17 10:07 08/19/17 08:23 Intake & Output 08/16/17 08/17/17 08/18/17 08/19/17 23:59 23:59 23:59 23:59 Intake Total 590 370 410 160 Balance 590 370 410 160 Weight 210 lb 6 oz 205 lb 4 oz HEENT: Atraumatic Neck: Supple Negative JVD Cardiovascular: S1 S2 Regular Rate and Rhythm Respiratory: CTA Bilaterally Gastrointestinal: Soft benign Normal Bowel Sounds Ext: Trace Edema Dressing in Situ Labs: CBC, BMP 08/19/17 06:20 08/19/17 06:20 INR, PTT INR 2.25 (0.82-1.09) H 08/19/17 06:20 Assessment/Plan ASSESSMENT: 1. Ischemic dilated cardiomyopathy with chronic class I-II NYHA classification LV failure, compensated/euvolemic 2. Post prohylactic ICD implant 3. CAD post [place]V with evidence of demand ischemic injury angina pectoris, clinically stable 4. Persistent atrial fibrillation [id number] score of 3-4 on Coumadin with therapeutic INR 5. 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 7. PAD post intervention 8. Hypothyroidism 9. History of PTE 10. History of colon cancer 11. 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 Antibiotics as per the primary team 2. HD as per renal service 3. Continue Coumadin as per INR pending with close monitoring of CBC 4. Continue Toprol XL and titrate as hemodynamics permit/tolerate 5. Continue Entresto and titrate as hemodynamics permit/tolerate 6. Discontinue Nitrates stable angina and no outcome data 7. PT to be initiated Rafaela Aguilar MD
--- NOTE | 2017-08-19 11:00 | PN ---
Progress Note (short form) - Note Progress Note: asymptomatic. denies CP, SOB, fever, chills, N/V/C/D. foot pain Current Medications Generic Name Dose Route Start Last Admin Trade Name Freq PRN Reason Stop Dose Admin Acetaminophen 650 mg 08/15/17 21:34 08/19/17 01:25 Tylenol - PO 650 mg Q6H PRN Administration FEVER Albumin Human 12.5 gm 08/19/17 15:00 Albumin Human 25% IVPB Q30M [facility] Alprazolam 0.25 mg 08/16/17 13:50 08/18/17 21:18 Xanax - PO 0.25 mg BID PRN Administration ANXIETY Clopidogrel Bisulfate 75 mg 08/15/17 21:15 08/18/17 09:45 Plavix - PO 75 mg DAILY [facility] Administration Docusate Sodium 100 mg 08/16/17 14:00 08/19/17 06:09 Colace - PO Not Given TID [facility] Guaifenesin 5 ml 08/15/17 21:34 Diabetic Tussin Dm - PO Q6H PRN COUGH Piperacillin Sod/Tazobactam 50 mls @ 100 mls/hr 08/16/17 02:00 08/19/17 03:00 Sod 2.25 gm/ Dextrose IVPB 100 mls/hr Q8H-IV [facility] Administration Protocol Sodium Chloride 250 mls @ 3,000 mls/hr 08/18/17 14:57 Normal Saline - IV 08/19/17 14:57 PRN PRN Hypotension during Dialysis Insulin Aspart 1 vial 08/15/17 22:00 08/19/17 06:10 Novolog Vial Sliding Scale - SQ Not Given ACHS [facility] Protocol Levothyroxine Sodium 75 mcg 08/16/17 07:00 08/18/17 06:53 Synthroid - PO 75 mcg DAILY@0700 [facility] Administration Melatonin 5 mg 08/15/17 21:34 Melatonin PO HS PRN INSOMNIA Metoprolol Succinate 12.5 mg 08/16/17 10:00 08/18/17 09:47 Toprol Xl - PO 12.5 mg DAILY [facility] Administration Oxycodone HCl 5 mg 08/15/17 21:34 08/17/17 09:53 Roxicodone - PO 5 mg Q4H PRN Administration PAIN LEVEL 4 - 6 Oxycodone HCl 10 mg 08/17/17 16:36 07/07/18 10:12 Roxicodone - PO 10 mg Q6H PRN Administration PAIN LEVEL 7 - 10 Sacubitril/Valsartan 1 tab 08/15/17 22:00 08/18/17 21:17 Entresto 24 Mg-26 Mg Tablet PO Not Given BID [facility] Senna 2 tab 08/16/17 22:00 08/18/17 21:16 Senna - PO Not Given HS [facility] Warfarin Sodium 2 mg 08/18/17 18:00 08/18/17 17:39 Coumadin - PO 2 mg DAILY@1800 [facility] Administration Last Vital Signs Temp Pulse Resp BP Pulse Ox 98.4 F 70 18 115/64 99 08/19/17 08:20 08/19/17 10:38 08/19/17 10:38 08/19/17 10:38 08/19/17 08:23 General NAD Extremities R foot very tender to light palpation. refused removal of bandage as it was just done. bandage c/d/i CBCD WBC 9.6 K/mm3 (4.0-10.0) 08/19/17 06:20 RBC 3.81 M/mm3 (4.00-5.60) L 08/19/17 06:20 Hgb 11.2 GM/dL (11.7-16.9) L 08/19/17 06:20 Hct 34.9 % (35.4-49) L 08/19/17 06:20 MCV 91.7 fl (80-96) 08/19/17 06:20 MCHC 32.0 g/dl (32.0-35.9) 08/19/17 06:20 RDW 20.5 % (11.9-15.9) H 08/19/17 06:20 Plt Count 228 K/MM3 (134-434) 08/19/17 06:20 MPV 10.1 fl (7.5-11.1) D 08/19/17 06:20 CMP Sodium 139 mmol/L (136-145) 08/19/17 06:20 Potassium 4.4 mmol/L (3.5-5.1) 08/19/17 06:20 Chloride 98 mmol/L (98-107) 08/19/17 06:20 Carbon Dioxide 30 mmol/L (21-32) 08/19/17 06:20 Anion Gap 11 (8-16) 08/19/17 06:20 BUN 32 mg/dL (7-18) H 08/19/17 06:20 Creatinine 8.6 mg/dL (0.7-1.3) H* 08/19/17 06:20 Creat Clearance w eGFR 6.15 (>60) 08/19/17 06:20 Calcium 8.3 mg/dL (8.5-10.1) L 08/19/17 06:20 Total Bilirubin 1.6 mg/dL (0.2-1.0) H 08/19/17 06:20 AST 35 U/L (15-37) 08/19/17 06:20 ALT 16 U/L (12-78) 08/19/17 06:20 Alkaline Phosphatase 137 U/L (45-117) H D 08/19/17 06:20 Total Protein 7.3 g/dl (6.4-8.2) 08/19/17 06:20 Albumin 2.4 g/dl (3.4-5.0) L 08/19/17 06:20 Assessment and plan 72 year old male with a significant past medical history of congestive heart failure with left chest wall pace maker/AICD, diabetes mellitus with neuropathy , hypertension, PE (on Coumadin), ESRD on HD (T,Th,Sat) via right upper arm fistula, DC, colon cancer and atrial fibrillation (on Coumadin). Patient presents to the ED from dialysis with a low blood pressure associated with chills during dialysis with a subtherapeutic INR. 1. sepsis due to R 5th digit celluliits and possible OM- s/p amputation of 4th and 5th digit on 08/14 by vascular surgery and artherectomy and angioplasty on 08/15. suspicion for OM and need for termination clerk IV abx. no bone cx sent. Wcx polymicrobial . on Zosyn day 10. will need to speak with vascular to determine if any further intervention is needed at this time. will need to d/w ID about abx selection if can be done with HD or if will need tunneled catheter and SNF placement. cont with pain control. local wound care per podiatry 2. CHF s/p AICD- stable. no signs of volume overload. cont current management 3. afib on coumadin- INR therapeutic on coumadin (reduced dose from home). will d/w vasc if further intervention is planned and if coumadin needs to be held. cont for now 4. DM- A1c 4.9. not on medications. not requiring any coverage. can d/c BGM 5. ESRD On HD- currently tolerating HD at this time. cont with regular schedule. intermittent albumin with HD per nephro 6. HTN- periods of hypotension. nitrates d/c and now more controlled. monitor 7. DVT ppx- coumadin 8. can d/c cardiac monitoring Imaging: Echo 08/10/17: Mildly dilated with severely decreased LV fx, mild to mod dilated with mod decreased RV fx, mod LAE, mild MR, TR, AR, moderate pericardial effusion. Chest CT: cardiomegaly with moderate pericardial effusion, small amt of pneumopericardium. ID: Sepsis likely secondary to right toe cellulitis: Blood and urine culture ngtd, wound cultures noted. On Zosyn. CT scan of lower right leg shows likely charcoat foot, erosion of the fifth digit. Patient has PM, unable to order MRI. ID following. Seen by vascular, s/p debridement of bone and soft tissue with amputation of 4th and 5th digit on 08/14/17. On Plavix. Observe for healing. May need additional vascular interventions. Cardiology: CHF, Pacemaker/AICD, Hypertension: On Toprol 12.5 daily, Losartan 25mg after HD , Entresto 24/26 BID, Isordil. Afib/therapeutic INR: s/p heparin drip. Now back on coumadin, INR 2.3 continue Coumadin as ordered. Moderate Pericardial effusion/Elevated trops: Cardiology following, monitor on tele. Further interventions per cardiology. Endocrine: 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: hmga1c 4.9, low bgms. renal diet ordered. Pulm: PE history: CT chest as noted above Unable to order CTA. As per pulm, no lung path noted. No chest pain, not tachycardic. Echo reviewed. On Coumadin. Renal: ESRD: Dialysis via right arm fistula. T,th,sat schedule FEN tolerating PO monitor electrolytes renal diet Prophy Coumadin Visit type - Emergency Visit Emergency Visit: Yes ED Registration Date: 08/10/17 Care time: The patient presented to the Emergency Department on the above date and was hospitalized for further evaluation of their emergent condition. - New Patient This patient is new to me today: Yes Date on this admission: 08/19/17 - Critical Care Critical Care patient: No - Discharge Referral Referred to [facility] Med P.C.: No
[2017-08-19] MEDS ORDERED: oxyCODONE HCL 5 MG TABLET PO ONE (11:30)
[2017-08-19] MEDS: CLOPIDOGREL BISULFATE 75 MG TABLET (FP) PO SCH (11:43)
[2017-08-19] MEDS: SACUBITRIL/VALSARTAN 24 MG-26 MG TABLET PO SCH ×2 (11:44→21:10)
[2017-08-19] MEDS: LEVOTHYROXINE NA 75 MCG TABLET (FP) PO SCH (11:46)
[2017-08-19] MEDS: metoPROLOL SUCCINATE 25 MG TAB.SR.24H (FP) PO SCH (11:46)
[2017-08-19] MEDS: ISOSORBIDE DINITRATE 20 MG TABLET (FP) PO SCH (13:07)
--- NOTE | 2017-08-19 13:25 | PN ---
Progress Note, Physician History of Present Illness: Pt seen and examined. Events reviewed. Currently c/o of pain b/l feet. - Current Medication List Current Medications: Active Medications Acetaminophen (Tylenol -) 650 mg PO Q6H PRN PRN Reason: FEVER Last Admin: 08/19/17 01:25 Dose: 650 mg Albumin Human (Albumin Human 25%) 12.5 gm IVPB Q30M [facility] Alprazolam (Xanax -) 0.25 mg PO BID PRN PRN Reason: ANXIETY Last Admin: 08/18/17 21:18 Dose: 0.25 mg Clopidogrel Bisulfate (Plavix -) 75 mg PO DAILY [facility] Last Admin: 08/19/17 11:43 Dose: 75 mg Docusate Sodium (Colace -) 100 mg PO TID [facility] Last Admin: 08/19/17 06:09 Dose: Not Given Guaifenesin (Diabetic Tussin Dm -) 5 ml PO Q6H PRN PRN Reason: COUGH Piperacillin Sod/Tazobactam (Sod 2.25 gm/ Dextrose) 50 mls @ 100 mls/hr IVPB Q8H-IV [facility]; Protocol Last Admin: 08/19/17 12:36 Dose: 100 mls/hr Sodium Chloride (Normal Saline -) 250 mls @ 3,000 mls/hr IV PRN PRN PRN Reason: Hypotension during Dialysis Stop: 08/19/17 14:57 Insulin Aspart (Novolog Vial Sliding Scale -) 1 vial SQ ACHS [facility]; Protocol Last Admin: 08/19/17 11:21 Dose: Not Given Levothyroxine Sodium (Synthroid -) 75 mcg PO DAILY@0700 [facility] Last Admin: 08/19/17 11:46 Dose: 75 mcg Melatonin (Melatonin) 5 mg PO HS PRN PRN Reason: INSOMNIA Metoprolol Succinate (Toprol Xl -) 12.5 mg PO DAILY [facility] Last Admin: 08/19/17 11:46 Dose: 12.5 mg Oxycodone HCl (Roxicodone -) 5 mg PO Q4H PRN PRN Reason: PAIN LEVEL 4 - 6 Last Admin: 08/17/17 09:53 Dose: 5 mg Oxycodone HCl (Roxicodone -) 10 mg PO Q6H PRN PRN Reason: PAIN LEVEL 7 - 10 Last Admin: 08/19/17 10:12 Dose: 10 mg Sacubitril/Valsartan (Entresto 24 Mg-26 Mg Tablet) 1 tab PO BID [facility] Last Admin: 08/19/17 11:44 Dose: 1 tab Senna (Senna -) 2 tab PO HS [facility] Last Admin: 08/18/17 21:16 Dose: Not Given Warfarin Sodium (Coumadin -) 2 mg PO DAILY@1800 [facility] Last Admin: 08/18/17 17:39 Dose: 2 mg - Objective Vital Signs: Vital Signs Temperature 98.4 F 08/19/17 08:20 Pulse Rate 61 08/19/17 11:45 Respiratory Rate 18 08/19/17 11:45 Blood Pressure 120/72 08/19/17 11:45 O2 Sat by Pulse Oximetry (%) 99 08/19/17 08:23 Constitutional: Yes: No Distress, Calm Cardiovascular: Yes: Regular Rate and Rhythm Respiratory: Yes: Regular Gastrointestinal: Yes: Normal Bowel Sounds, Soft Wound/Incision: Yes: Dressing Dry and Intact (Rt foot) Neurological: Yes: Alert Labs: CBC, BMP 08/19/17 06:20 08/19/17 06:20 INR, PTT INR 2.25 (0.82-1.09) H 08/19/17 06:20 Microbiology 08/14/17 18:30 Foot - Right Gram Stain - Final 08/14/17 18:30 Foot - Right Wound Culture - Final Enterobacter Aerogenes 08/14/17 18:30 Foot - Right Gram Stain - Final 08/14/17 18:30 Foot - Right Wound Culture - Final Morganella Morganii Enterobacter Aerogenes 08/12/17 21:30 Blood - Peripheral Venous Blood Culture - Final NO GROWTH AFTER 5 DAYS INCUBATION 08/12/17 21:30 Blood - Peripheral Venous Blood Culture - Final NO GROWTH AFTER 5 DAYS INCUBATION 08/10/17 13:02 Blood - Peripheral Venous Blood Culture - Final NO GROWTH AFTER 5 DAYS INCUBATION 08/10/17 13:02 Blood - Peripheral Venous Blood Culture - Final NO GROWTH AFTER 5 DAYS INCUBATION 08/11/17 01:50 Toe - Right Third Gram Stain - Final 08/11/17 01:50 Toe - Right Third Wound Culture - Final Enterococcus Faecalis Enterobacter Aerogenes Morganella Morganii Problem List - Problems (1) Atrial fibrillation Code(s): I48.91 - UNSPECIFIED ATRIAL FIBRILLATION Qualifiers: Atrial fibrillation type: unspecified Qualified Code(s): I48.91 - Unspecified atrial fibrillation (2) Cardiomyopathy Code(s): I42.9 - CARDIOMYOPATHY, UNSPECIFIED Qualifiers: Cardiomyopathy type: unspecified Qualified Code(s): I42.9 - Cardiomyopathy , unspecified (3) Cellulitis of right lower extremity Code(s): L03.115 - CELLULITIS OF RIGHT LOWER LIMB (4) Diabetic foot ulcer Code(s): E11.621 - TYPE 2 DIABETES MELLITUS WITH FOOT ULCER; L97.509 - NON- PRESSURE CHRONIC ULCER OTH PRT UNSP FOOT W UNSP SEVERITY (5) ESRD (end stage renal disease) Code(s): N18.6 - END STAGE RENAL DISEASE (6) ICD (implantable cardioverter-defibrillator) in place Code(s): Z95.810 - PRESENCE OF AUTOMATIC (IMPLANTABLE) CARDIAC DEFIBRILLATOR (7) Status post peripheral artery angioplasty Code(s): Z98.62 - PERIPHERAL VASCULAR ANGIOPLASTY STATUS Assessment/Plan 72 y.o. male with PMH of ESRD on HD, DM with neuropathy, PVD, CAD s/p [place], AICD, HTN, PE, colon CA, AFIB admitted with Rt foot cellulitis with ischemic changes Rt foot OM s/p debridement and 4th/5th toe amputation PVD s/p Lt tibial revascularization -- culture results noted -- recommend d/c zosyn, start Levaquin 500 mg po Q48hrs and doxycycline 100 mg po BID x 4 wks -- vascular f/u for ischemia and possible need for further intervention -- if pt develops abd pain with diarrhea or tenderness in ankles/tendons instructed to seek medical attention -- continue wound care
--- NOTE | 2017-08-19 13:52 | PN ---
Progress Note (short form) - Note Progress Note: No CP or SOB. Some discomfort in feet. Intake & Output 08/16/17 08/17/17 08/18/17 08/19/17 23:59 23:59 23:59 23:59 Intake Total 590 370 410 160 Balance 590 370 410 160 Weight 210 lb 6 oz 205 lb 4 oz Last Vital Signs Temp Pulse Resp BP Pulse Ox 98.4 F 61 18 120/72 99 08/19/17 08:20 08/19/17 11:45 08/19/17 11:45 08/19/17 11:45 08/19/17 08:23 Active Medications Acetaminophen (Tylenol -) 650 mg PO Q6H PRN PRN Reason: FEVER Last Admin: 08/19/17 01:25 Dose: 650 mg Albumin Human (Albumin Human 25%) 12.5 gm IVPB Q30M [facility] Alprazolam (Xanax -) 0.25 mg PO BID PRN PRN Reason: ANXIETY Last Admin: 08/18/17 21:18 Dose: 0.25 mg Clopidogrel Bisulfate (Plavix -) 75 mg PO DAILY [facility] Last Admin: 08/19/17 11:43 Dose: 75 mg Docusate Sodium (Colace -) 100 mg PO TID [facility] Last Admin: 08/19/17 06:09 Dose: Not Given Guaifenesin (Diabetic Tussin Dm -) 5 ml PO Q6H PRN PRN Reason: COUGH Sodium Chloride (Normal Saline -) 250 mls @ 3,000 mls/hr IV PRN PRN PRN Reason: Hypotension during Dialysis Stop: 08/19/17 14:57 Piperacillin Sod/Tazobactam (Sod 2.25 gm/ Dextrose) 50 mls @ 100 mls/hr IVPB Q8H-IV [facility]; Protocol Insulin Aspart (Novolog Vial Sliding Scale -) 1 vial SQ ACHS [facility]; Protocol Last Admin: 08/19/17 11:21 Dose: Not Given Levothyroxine Sodium (Synthroid -) 75 mcg PO DAILY@0700 [facility] Last Admin: 08/19/17 11:46 Dose: 75 mcg Melatonin (Melatonin) 5 mg PO HS PRN PRN Reason: INSOMNIA Metoprolol Succinate (Toprol Xl -) 12.5 mg PO DAILY [facility] Last Admin: 08/19/17 11:46 Dose: 12.5 mg Oxycodone HCl (Roxicodone -) 5 mg PO Q4H PRN PRN Reason: PAIN LEVEL 4 - 6 Last Admin: 08/17/17 09:53 Dose: 5 mg Oxycodone HCl (Roxicodone -) 10 mg PO Q6H PRN PRN Reason: PAIN LEVEL 7 - 10 Last Admin: 08/19/17 10:12 Dose: 10 mg Sacubitril/Valsartan (Entresto 24 Mg-26 Mg Tablet) 1 tab PO BID [facility] Last Admin: 08/19/17 11:44 Dose: 1 tab Senna (Senna -) 2 tab PO HS [facility] Last Admin: 08/18/17 21:16 Dose: Not Given Warfarin Sodium (Coumadin -) 2 mg PO DAILY@1800 [facility] Last Admin: 08/18/17 17:39 Dose: 2 mg Constitutional: Yes: NAD Eyes: Yes: EOM Intact HENT: Yes: Normocephalic Neck: Yes: Trachea Midline Cardiovascular: Yes: S1, S2, Other (PACED) Respiratory: Yes: Clear Gastrointestinal: Yes: Normal Bowel Sounds Extremities: Yes: edema Labs: Laboratory Results - last 24 hr 08/12/17 08/18/17 08/19/17 21:30 21:08 05:58 WBC RBC Hgb Hct MCV MCH MCHC RDW Plt Count MPV Absolute Neuts (auto) Neutrophils % Lymphocytes % Monocytes % Eosinophils % Basophils % Nucleated RBC % Platelet Estimate Platelet Comment Anisocytosis PT with INR INR Sodium Potassium Chloride Carbon Dioxide Anion Gap BUN Creatinine Creat Clearance w eGFR POC Glucometer 119 102 Random Glucose Calcium Magnesium Total Bilirubin AST ALT Alkaline Phosphatase Total Protein Albumin Hepatitis A Ab Total Negative Hep Bs Antigen Negative Hep Bs Antibody Non reactive Hep B Core Total Ab Negative 08/19/17 08/19/17 08/19/17 06:20 06:20 06:20 WBC 9.6 RBC 3.81 L Hgb 11.2 L Hct 34.9 L MCV 91.7 MCH 29.4 MCHC 32.0 RDW 20.5 H Plt Count 228 MPV 10.1 D Absolute Neuts (auto) 7.3 Neutrophils % 76.2 Lymphocytes % 7.1 L Monocytes % 14.2 H Eosinophils % 2.2 Basophils % 0.3 Nucleated RBC % 0 Platelet Estimate Adequate Platelet Comment No clumping noted Anisocytosis 1+ PT with INR 25.40 H INR 2.25 H Sodium 139 Potassium 4.4 Chloride 98 Carbon Dioxide 30 Anion Gap 11 BUN 32 H Creatinine 8.6 H* Creat Clearance w eGFR 6.15 POC Glucometer Random Glucose 87 Calcium 8.3 L Magnesium 2.1 Total Bilirubin 1.6 H AST 35 ALT 16 Alkaline Phosphatase 137 H D Total Protein 7.3 Albumin 2.4 L Hepatitis A Ab Total Hep Bs Antigen Hep Bs Antibody Hep B Core Total Ab 08/19/17 11:19 WBC RBC Hgb Hct MCV MCH MCHC RDW Plt Count MPV Absolute Neuts (auto) Neutrophils % Lymphocytes % Monocytes % Eosinophils % Basophils % Nucleated RBC % Platelet Estimate Platelet Comment Anisocytosis PT with INR INR Sodium Potassium Chloride Carbon Dioxide Anion Gap BUN Creatinine Creat Clearance w eGFR POC Glucometer 140 Random Glucose Calcium Magnesium Total Bilirubin AST ALT Alkaline Phosphatase Total Protein Albumin Hepatitis A Ab Total Hep Bs Antigen Hep Bs Antibody Hep B Core Total Ab Problem List - Problems (1) Atrial fibrillation Code(s): I48.91 - UNSPECIFIED ATRIAL FIBRILLATION Qualifiers: Atrial fibrillation type: unspecified Qualified Code(s): I48.91 - Unspecified atrial fibrillation (2) Cardiomyopathy Code(s): I42.9 - CARDIOMYOPATHY, UNSPECIFIED Qualifiers: Cardiomyopathy type: unspecified Qualified Code(s): I42.9 - Cardiomyopathy , unspecified (3) Cellulitis of right lower extremity Code(s): L03.115 - CELLULITIS OF RIGHT LOWER LIMB (4) ESRD (end stage renal disease) Code(s): N18.6 - END STAGE RENAL DISEASE (5) Hypotension Code(s): I95.9 - HYPOTENSION, UNSPECIFIED Qualifiers: Hypotension type: other hypotension type Qualified Code(s): I95.89 - Other hypotension (6) Hypothyroid Code(s): E03.9 - HYPOTHYROIDISM, UNSPECIFIED Qualifiers: Hypothyroidism type: unspecified Qualified Code(s): E03.9 - Hypothyroidism , unspecified (7) ICD (implantable cardioverter-defibrillator) in place Code(s): Z95.810 - PRESENCE OF AUTOMATIC (IMPLANTABLE) CARDIAC DEFIBRILLATOR (8) Open wound of foot Code(s): S91.309A - UNSPECIFIED OPEN WOUND, UNSPECIFIED FOOT, INITIAL ENCOUNTER Qualifiers: Encounter type: initial encounter Laterality: right Qualified Code(s): S91.301A - Unspecified open wound, right foot, initial encounter Assessment/Plan ESRD/HD DM/HTN/THYROID DISEASE LVD/AICD/AF H/O COLON CANCER DIABETIC NEUROPATHY/DIABETIC FOOT ULCER O2/BRONCHODILATORS PRN ANTICOAGULATION WITH COUMADIN ABX PER ID NO SMOKING PAIN CONTROL DR GUTIERREZ
--- NOTE | 2017-08-19 14:55 | PN ---
Progress Note (short form) - Note Progress Note: Current Medications Acetaminophen (Tylenol -) 650 mg PO Q6H PRN PRN Reason: FEVER Albumin Human (Albumin Human 25%) 12.5 gm IVPB Q30M [facility] Alprazolam (Xanax -) 0.25 mg PO BID PRN PRN Reason: ANXIETY Last Admin: 08/19/17 22:01 Dose: 0.25 mg Clopidogrel Bisulfate (Plavix -) 75 mg PO DAILY [facility] Docusate Sodium (Colace -) 100 mg PO TID [facility] Last Admin: 08/19/17 22:01 Dose: 100 mg Guaifenesin (Diabetic Tussin Dm -) 5 ml PO Q6H PRN PRN Reason: COUGH Piperacillin Sod/Tazobactam (Sod 2.25 gm/ Dextrose) 50 mls @ 100 mls/hr IVPB Q8H-IV [facility]; Protocol Last Admin: 08/19/17 17:38 Dose: 100 mls/hr Levothyroxine Sodium (Synthroid -) 75 mcg PO DAILY@0700 [facility] Melatonin (Melatonin) 5 mg PO HS PRN PRN Reason: INSOMNIA Last Admin: 08/19/17 22:01 Dose: 5 mg Metoprolol Succinate (Toprol Xl -) 12.5 mg PO DAILY [facility] Oxycodone HCl (Roxicodone -) 5 mg PO Q4H PRN PRN Reason: PAIN LEVEL 4 - 6 Oxycodone HCl (Roxicodone -) 10 mg PO Q6H PRN PRN Reason: PAIN LEVEL 7 - 10 Last Admin: 08/19/17 17:45 Dose: 10 mg Sacubitril/Valsartan (Entresto 24 Mg-26 Mg Tablet) 1 tab PO BID [facility] Last Admin: 08/19/17 21:10 Dose: Not Given Senna (Senna -) 2 tab PO HS [facility] Last Admin: 08/19/17 22:01 Dose: 2 tab Warfarin Sodium (Coumadin -) 2 mg PO DAILY@1800 [facility] Last Admin: 08/19/17 17:38 Dose: 2 mg s/p hemodialysis tx uneventful no complaints Last Vital Signs Temp Pulse Resp BP Pulse Ox 98 F 67 18 102/61 99 08/19/17 14:32 08/19/17 14:32 08/19/17 14:32 08/19/17 14:32 08/19/17 08:23 CBC, BMP 08/19/17 06:20 08/19/17 06:20
[2017-08-19] MEDS ORDERED: ALBUMIN HUMAN 25% 12.5 GM/50 ML VIAL IVPB SCH ×2 (15:00→16:00)
[2017-08-19] MEDS ORDERED: guaiFENesin/D-M SUGAR-FREE/ACLHOL-FREE 118 ML BOTTLE PO PRN (15:44)
[2017-08-19] MEDS ORDERED: ALPRAZolam 0.25 MG TABLET PO PRN (15:44)
[2017-08-19] MEDS ORDERED: ACETAMINOPHEN 325 MG TABLET (FP) PO PRN (15:44)
[2017-08-19] MEDS: WARFARIN NA 2 MG TABLET (UD) PO SCH (17:38)
[2017-08-19] MEDS: MELATONIN 5 MG TABLETS PO PRN (22:01)
[2017-08-19] MEDS: SENNOSIDES 8.6MG TABLET (FP) PO SCH (22:01)
[2017-08-20] MEDS ORDERED: DEXTROSE 5%-WATER - 50 ML IVPB ONE ×3 (01:41→15:47)
[2017-08-20] MEDS ORDERED: PIPERACILLIN/TAZOBACTAM 2.25 GM VIAL IVPB ONE ×3 (01:41→15:47)
[2017-08-20] MEDS: PIPERACILLIN/TAZOB 2.25 GM 2.25 GM in DEXTROSE 5%-WATER - 50 ML IVPB SCH ×3 (01:46→17:15)
[2017-08-20] MEDS ORDERED: ONDANSETRON 4 MG/2 ML VIAL IVPUSH ONE (03:15)
[2017-08-20] MEDS: oxyCODONE HCL 5 MG TABLET PO PRN ×3 (06:04→19:34)
[2017-08-20] MEDS: DOCUSATE SODIUM 100 MG CAPSULE (FP) PO SCH ×3 (06:05→21:37)
[2017-08-20] MEDS: LEVOTHYROXINE NA 75 MCG TABLET (FP) PO SCH (06:05)
[2017-08-20] MEDS: metoPROLOL SUCCINATE 25 MG TAB.SR.24H (FP) PO SCH (10:15)
[2017-08-20] MEDS: SACUBITRIL/VALSARTAN 24 MG-26 MG TABLET PO SCH ×2 (10:15→21:37)
[2017-08-20] MEDS: CLOPIDOGREL BISULFATE 75 MG TABLET (FP) PO SCH (10:17)
--- NOTE | 2017-08-20 10:39 | PN ---
Progress Note (short form) - Note Progress Note: Chief Complaint: Events noted, notes reviewed, denies any chest pain or dyspnea , complaining of persistent foot discomfort, hypotension noted History of Present Illness: Seen and examined. Events noted, notes reviewed, denies any chest pain or dyspnea, complaining of persistent foot discomfort, hypotension noted Patient is asymptomatic with the above noted hypotension Echocardiography dated 08/11/2017 revealed mildly dilated LV with severely decreased LV function, mild-moderately dilated RV with moderately decreased RV function, moderate LAE, mild MR, TR, AR, moderate pericardial effusion with evidence of cardiac tamponade Lexiscan MPI study dated 11/11/2016 revealed large MS involving apex, inferior wall, infero-lateral small area mild royce-infarct ischemia mid anterior wall, dilated severely decreased LVEF 26, RV dilated - Current Medication List Current Medications Acetaminophen (Tylenol -) 650 mg PO Q6H PRN PRN Reason: FEVER Albumin Human (Albumin Human 25%) 12.5 gm IVPB Q30M [facility] Alprazolam (Xanax -) 0.25 mg PO BID PRN PRN Reason: ANXIETY Last Admin: 08/19/17 22:01 Dose: 0.25 mg Clopidogrel Bisulfate (Plavix -) 75 mg PO DAILY [facility] Last Admin: 08/20/17 10:17 Dose: 75 mg Docusate Sodium (Colace -) 100 mg PO TID [facility] Last Admin: 08/20/17 06:05 Dose: 100 mg Guaifenesin (Diabetic Tussin Dm -) 5 ml PO Q6H PRN PRN Reason: COUGH Piperacillin Sod/Tazobactam (Sod 2.25 gm/ Dextrose) 50 mls @ 100 mls/hr IVPB Q8H-IV [facility]; Protocol Last Admin: 08/20/17 10:17 Dose: 100 mls/hr Levothyroxine Sodium (Synthroid -) 75 mcg PO DAILY@0700 [facility] Last Admin: 08/20/17 06:05 Dose: 75 mcg Melatonin (Melatonin) 5 mg PO HS PRN PRN Reason: INSOMNIA Last Admin: 08/19/17 22:01 Dose: 5 mg Metoprolol Succinate (Toprol Xl -) 12.5 mg PO DAILY [facility] Last Admin: 08/20/17 10:15 Dose: Not Given Oxycodone HCl (Roxicodone -) 5 mg PO Q4H PRN PRN Reason: PAIN LEVEL 4 - 6 Oxycodone HCl (Roxicodone -) 10 mg PO Q6H PRN PRN Reason: PAIN LEVEL 7 - 10 Last Admin: 08/20/17 06:04 Dose: 10 mg Sacubitril/Valsartan (Entresto 24 Mg-26 Mg Tablet) 1 tab PO BID [facility] Last Admin: 08/20/17 10:15 Dose: Not Given Senna (Senna -) 2 tab PO HS [facility] Last Admin: 08/19/17 22:01 Dose: 2 tab Warfarin Sodium (Coumadin -) 2 mg PO DAILY@1800 [facility] Last Admin: 08/19/17 17:38 Dose: 2 mg - Review of Systems Constitutional: denies: Chills, Fever Cardiovascular: As noted above Respiratory: denies: Cough or Sputum Production Gastrointestinal: denies: Nausea, Vomiting, Diarrhea, Constipation or Abdominal Pain Genitourinary: HD Neurological: denies: Dizziness or Headaches Endocrine: denies: Intolerance to Cold, Intolerance to Heat - Objective Vital Signs: Last Vital Signs Temp Pulse Resp BP Pulse Ox 97.0 F L 65 18 79/49 95 08/20/17 09:07 08/20/17 09:07 08/20/17 09:07 08/20/17 09:07 08/19/17 21:00 Intake & Output 08/17/17 08/18/17 08/19/17 08/20/17 23:59 23:59 23:59 23:59 Intake Total 370 410 482 300 Balance 370 410 482 300 Weight 210 lb 6 oz 205 lb 4 oz 203 lb 8 oz HEENT: Atraumatic Neck: Supple Negative JVD Cardiovascular: S1 S2 Regular Rate and Rhythm Respiratory: CTA Bilaterally Gastrointestinal: Soft benign Normal Bowel Sounds Ext: Trace Edema Dressing in Situ Labs: CBC, BMP 08/19/17 06:20 08/19/17 06:20 INR, PTT INR 2.25 (0.82-1.09) H 08/19/17 06:20 ASSESSMENT and PLAN: ASSESSMENT: 1. Ischemic dilated cardiomyopathy with chronic class I-II NYHA classification LV failure, compensated/euvolemic 2. Post prophylactic ICD implant 3. CAD post MS with evidence of demand ischemic injury angina pectoris, clinically stable 4. Persistent atrial fibrillation [id number] score of 3-4 on Coumadin with therapeutic INR, yesterday's INR 5. 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 7. PAD post intervention 8. Hypothyroidism 9. History of PTE 10. History of colon cancer 11. 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 Antibiotics as per the primary team 2. HD as per renal service 3. Continue Coumadin as per INR with close monitoring of CBC 4. Continue Toprol XL and titrate as hemodynamics permit/tolerate 5. Continue Entresto and titrate as hemodynamics permit/tolerate 6. PT to be initiated Rafaela Aguilar MD
--- NOTE | 2017-08-20 11:42 | PN ---
Progress Note (short form) - Note Progress Note: Resting in NAD. No CP or SOB. No acute events overnight. Intake & Output 08/17/17 08/18/17 08/19/17 08/20/17 23:59 23:59 23:59 23:59 Intake Total 370 410 482 300 Balance 370 410 482 300 Weight 210 lb 6 oz 205 lb 4 oz 203 lb 8 oz Last Vital Signs Temp Pulse Resp BP Pulse Ox 97.0 F L 65 18 79/49 95 08/20/17 09:07 08/20/17 09:07 08/20/17 09:07 08/20/17 09:07 08/19/17 21:00 Active Medications Acetaminophen (Tylenol -) 650 mg PO Q6H PRN PRN Reason: FEVER Albumin Human (Albumin Human 25%) 12.5 gm IVPB Q30M [facility] Alprazolam (Xanax -) 0.25 mg PO BID PRN PRN Reason: ANXIETY Last Admin: 08/19/17 22:01 Dose: 0.25 mg Clopidogrel Bisulfate (Plavix -) 75 mg PO DAILY [facility] Last Admin: 08/20/17 10:17 Dose: 75 mg Docusate Sodium (Colace -) 100 mg PO TID [facility] Last Admin: 08/20/17 06:05 Dose: 100 mg Guaifenesin (Diabetic Tussin Dm -) 5 ml PO Q6H PRN PRN Reason: COUGH Piperacillin Sod/Tazobactam (Sod 2.25 gm/ Dextrose) 50 mls @ 100 mls/hr IVPB Q8H-IV [facility]; Protocol Last Admin: 08/20/17 10:17 Dose: 100 mls/hr Levothyroxine Sodium (Synthroid -) 75 mcg PO DAILY@0700 [facility] Last Admin: 08/20/17 06:05 Dose: 75 mcg Melatonin (Melatonin) 5 mg PO HS PRN PRN Reason: INSOMNIA Last Admin: 08/19/17 22:01 Dose: 5 mg Metoprolol Succinate (Toprol Xl -) 12.5 mg PO DAILY [facility] Last Admin: 08/20/17 10:15 Dose: Not Given Oxycodone HCl (Roxicodone -) 5 mg PO Q4H PRN PRN Reason: PAIN LEVEL 4 - 6 Oxycodone HCl (Roxicodone -) 10 mg PO Q6H PRN PRN Reason: PAIN LEVEL 7 - 10 Last Admin: 08/20/17 06:04 Dose: 10 mg Sacubitril/Valsartan (Entresto 24 Mg-26 Mg Tablet) 1 tab PO BID [facility] Last Admin: 08/20/17 10:15 Dose: Not Given Senna (Senna -) 2 tab PO HS [facility] Last Admin: 08/19/17 22:01 Dose: 2 tab Warfarin Sodium (Coumadin -) 2 mg PO DAILY@1800 [facility] Last Admin: 08/19/17 17:38 Dose: 2 mg Constitutional: Yes: NAD Eyes: Yes: EOM Intact HENT: Yes: Normocephalic Neck: Yes: Trachea Midline Cardiovascular: Yes: S1, S2, Other (PACED) Respiratory: Yes: Clear Gastrointestinal: Yes: Normal Bowel Sounds Extremities: Yes: edema Labs: Laboratory Results - last 24 hr 08/19/17 08/20/17 16:55 03:28 POC Glucometer 101 103 Problem List - Problems (1) Atrial fibrillation Code(s): I48.91 - UNSPECIFIED ATRIAL FIBRILLATION Qualifiers: Atrial fibrillation type: unspecified Qualified Code(s): I48.91 - Unspecified atrial fibrillation (2) Cardiomyopathy Code(s): I42.9 - CARDIOMYOPATHY, UNSPECIFIED Qualifiers: Cardiomyopathy type: unspecified Qualified Code(s): I42.9 - Cardiomyopathy , unspecified (3) Cellulitis of right lower extremity Code(s): L03.115 - CELLULITIS OF RIGHT LOWER LIMB (4) ESRD (end stage renal disease) Code(s): N18.6 - END STAGE RENAL DISEASE (5) Hypotension Code(s): I95.9 - HYPOTENSION, UNSPECIFIED Qualifiers: Hypotension type: other hypotension type Qualified Code(s): I95.89 - Other hypotension (6) Hypothyroid Code(s): E03.9 - HYPOTHYROIDISM, UNSPECIFIED Qualifiers: Hypothyroidism type: unspecified Qualified Code(s): E03.9 - Hypothyroidism , unspecified (7) ICD (implantable cardioverter-defibrillator) in place Code(s): Z95.810 - PRESENCE OF AUTOMATIC (IMPLANTABLE) CARDIAC DEFIBRILLATOR (8) Open wound of foot Code(s): S91.309A - UNSPECIFIED OPEN WOUND, UNSPECIFIED FOOT, INITIAL ENCOUNTER Qualifiers: Encounter type: initial encounter Laterality: right Qualified Code(s): S91.301A - Unspecified open wound, right foot, initial encounter Assessment/Plan ESRD/HD DM/HTN/THYROID DISEASE LVD/AICD/AF H/O COLON CANCER DIABETIC NEUROPATHY/DIABETIC FOOT ULCER O2/BRONCHODILATORS PRN ANTICOAGULATION WITH COUMADIN ABX PER ID NO SMOKING PAIN CONTROL DR GUTIERREZ
--- NOTE | 2017-08-20 11:48 | PN ---
Progress Note, Physician History of Present Illness: patient doing well no issues - Current Medication List Current Medications: Active Medications Acetaminophen (Tylenol -) 650 mg PO Q6H PRN PRN Reason: FEVER Albumin Human (Albumin Human 25%) 12.5 gm IVPB Q30M [facility] Alprazolam (Xanax -) 0.25 mg PO BID PRN PRN Reason: ANXIETY Last Admin: 08/19/17 22:01 Dose: 0.25 mg Clopidogrel Bisulfate (Plavix -) 75 mg PO DAILY [facility] Last Admin: 08/20/17 10:17 Dose: 75 mg Docusate Sodium (Colace -) 100 mg PO TID [facility] Last Admin: 08/20/17 06:05 Dose: 100 mg Guaifenesin (Diabetic Tussin Dm -) 5 ml PO Q6H PRN PRN Reason: COUGH Piperacillin Sod/Tazobactam (Sod 2.25 gm/ Dextrose) 50 mls @ 100 mls/hr IVPB Q8H-IV [facility]; Protocol Last Admin: 08/20/17 10:17 Dose: 100 mls/hr Levothyroxine Sodium (Synthroid -) 75 mcg PO DAILY@0700 [facility] Last Admin: 08/20/17 06:05 Dose: 75 mcg Melatonin (Melatonin) 5 mg PO HS PRN PRN Reason: INSOMNIA Last Admin: 08/19/17 22:01 Dose: 5 mg Metoprolol Succinate (Toprol Xl -) 12.5 mg PO DAILY [facility] Last Admin: 08/20/17 10:15 Dose: Not Given Oxycodone HCl (Roxicodone -) 5 mg PO Q4H PRN PRN Reason: PAIN LEVEL 4 - 6 Oxycodone HCl (Roxicodone -) 10 mg PO Q6H PRN PRN Reason: PAIN LEVEL 7 - 10 Last Admin: 08/20/17 06:04 Dose: 10 mg Sacubitril/Valsartan (Entresto 24 Mg-26 Mg Tablet) 1 tab PO BID [facility] Last Admin: 08/20/17 10:15 Dose: Not Given Senna (Senna -) 2 tab PO HS [facility] Last Admin: 08/19/17 22:01 Dose: 2 tab Warfarin Sodium (Coumadin -) 2 mg PO DAILY@1800 [facility] Last Admin: 08/19/17 17:38 Dose: 2 mg - Objective Vital Signs: Vital Signs Temperature 97.0 F L 08/20/17 09:07 Pulse Rate 65 08/20/17 09:07 Respiratory Rate 18 08/20/17 09:07 Blood Pressure 79/49 08/20/17 09:07 O2 Sat by Pulse Oximetry (%) 95 08/19/17 21:00 Constitutional: Yes: No Distress, Calm Cardiovascular: Yes: Regular Rate and Rhythm Respiratory: Yes: Regular, CTA Bilaterally Gastrointestinal: Yes: Normal Bowel Sounds, Soft Musculoskeletal: Yes: WNL Extremities: Yes: Other Wound/Incision: Yes: Dressing Dry and Intact Neurological: Yes: Alert, Oriented Psychiatric: Yes: Alert, Oriented Labs: CBC, BMP 08/19/17 06:20 08/19/17 06:20 INR, PTT INR 2.25 (0.82-1.09) H 08/19/17 06:20 Assessment/Plan patient coming in a type of sepsis picture i think his invection is coming from the wound itself he has multiple other issues Problem List - Problems (1) Atrial fibrillation Code(s): I48.91 - UNSPECIFIED ATRIAL FIBRILLATION Qualifiers: Atrial fibrillation type: unspecified Qualified Code(s): I48.91 - Unspecified atrial fibrillation (2) Cardiomyopathy Code(s): I42.9 - CARDIOMYOPATHY, UNSPECIFIED Qualifiers: Cardiomyopathy type: unspecified Qualified Code(s): I42.9 - Cardiomyopathy , unspecified (3) Cellulitis of right lower extremity Code(s): L03.115 - CELLULITIS OF RIGHT LOWER LIMB (4) ESRD (end stage renal disease) Code(s): N18.6 - END STAGE RENAL DISEASE (5) Hypotension Code(s): I95.9 - HYPOTENSION, UNSPECIFIED Qualifiers: Hypotension type: other hypotension type Qualified Code(s): I95.89 - Other hypotension (6) Hypothyroid Code(s): E03.9 - HYPOTHYROIDISM, UNSPECIFIED Qualifiers: Hypothyroidism type: unspecified Qualified Code(s): E03.9 - Hypothyroidism , unspecified (7) ICD (implantable cardioverter-defibrillator) in place Code(s): Z95.810 - PRESENCE OF AUTOMATIC (IMPLANTABLE) CARDIAC DEFIBRILLATOR (8) Open wound of foot Code(s): S91.309A - UNSPECIFIED OPEN WOUND, UNSPECIFIED FOOT, INITIAL ENCOUNTER Qualifiers: Encounter type: initial encounter Laterality: right Qualified Code(s): S91.301A - Unspecified open wound, right foot, initial encounter plan continue abx all cx reports note patient to continue with zosyn for 4 more weeks wound care
[2017-08-20] MEDS: WARFARIN NA 2 MG TABLET (UD) PO SCH (17:14)
[2017-08-20] MEDS: SENNOSIDES 8.6MG TABLET (FP) PO SCH (21:37)
--- NOTE | 2017-08-20 21:52 | PN ---
Progress Note (short form) - Note Progress Note: Problems 1. ESRD 2. pericardial effusion 3. pneumopericardium 4. hypothyroidism 5. a-fib 6. hypotension 7. hx of colon cancer 8. CHF 9. DM 10. hx of PE 11. CAD Current Medications Acetaminophen (Tylenol -) 650 mg PO Q6H PRN PRN Reason: FEVER Albumin Human (Albumin Human 25%) 12.5 gm IVPB Q30M [facility] Alprazolam (Xanax -) 0.25 mg PO BID PRN PRN Reason: ANXIETY Last Admin: 08/19/17 22:01 Dose: 0.25 mg Clopidogrel Bisulfate (Plavix -) 75 mg PO DAILY [facility] Last Admin: 08/20/17 10:17 Dose: 75 mg Docusate Sodium (Colace -) 100 mg PO TID [facility] Last Admin: 08/20/17 21:37 Dose: 100 mg Guaifenesin (Diabetic Tussin Dm -) 5 ml PO Q6H PRN PRN Reason: COUGH Piperacillin Sod/Tazobactam (Sod 2.25 gm/ Dextrose) 50 mls @ 100 mls/hr IVPB Q8H-IV [facility]; Protocol Last Admin: 08/20/17 17:15 Dose: 100 mls/hr Levothyroxine Sodium (Synthroid -) 75 mcg PO DAILY@0700 [facility] Last Admin: 08/20/17 06:05 Dose: 75 mcg Melatonin (Melatonin) 5 mg PO HS PRN PRN Reason: INSOMNIA Last Admin: 08/19/17 22:01 Dose: 5 mg Metoprolol Succinate (Toprol Xl -) 12.5 mg PO DAILY [facility] Last Admin: 08/20/17 10:15 Dose: Not Given Oxycodone HCl (Roxicodone -) 5 mg PO Q4H PRN PRN Reason: PAIN LEVEL 4 - 6 Oxycodone HCl (Roxicodone -) 10 mg PO Q6H PRN PRN Reason: PAIN LEVEL 7 - 10 Last Admin: 08/20/17 19:34 Dose: 10 mg Sacubitril/Valsartan (Entresto 24 Mg-26 Mg Tablet) 1 tab PO BID [facility] Last Admin: 08/20/17 21:37 Dose: Not Given Senna (Senna -) 2 tab PO HS [facility] Last Admin: 07/08/18 21:37 Dose: 2 tab Warfarin Sodium (Coumadin -) 2 mg PO DAILY@1800 [facility] Last Admin: 08/20/17 17:14 Dose: 2 mg Last Vital Signs Temp Pulse Resp BP Pulse Ox 98.0 F 70 20 102/70 95 08/20/17 21:23 08/20/17 21:23 08/20/17 21:23 08/20/17 21:23 08/20/17 21:00 CBC, BMP 08/19/17 06:20 08/19/17 06:20 IMP- ESRD stable with fluids Plan- hd darling
--- NOTE | 2017-08-20 22:30 | PN ---
Physical Exam: SUBJECTIVE: Patient seen and examined sitting on edge of bed. Has some intermittent pain in right foot but manageable, does not want additional pain meds. OBJECTIVE: Vital Signs Period Temp Pulse Resp BP Sys/Yoon Pulse Ox Last 24 Hr 97.0 F-98.8 F 65-70 18-20 75-126/49-70 95 GENERAL: The patient is awake, alert, and fully oriented, in no acute distress. LUNGS: Breath sounds equal, clear to auscultation bilaterally, no wheezes, no crackles, no accessory muscle use. HEART: Regular rate and rhythm, S1, S2 without murmur, rub or gallop. ABDOMEN: Soft, nontender, nondistended, normoactive bowel sounds EXTREMITIES: right foot wrapped, dressing c/d/i; three toes exposed, warm but no sensation NEUROLOGICAL: Cranial nerves II through XII grossly intact. Normal speech. Laboratory Results - last 24 hr 08/20/17 03:28 POC Glucometer 103 Active Medications Generic Name Dose Route Start Last Admin Trade Name Freq PRN Reason Stop Dose Admin Acetaminophen 650 mg 08/19/17 15:44 Tylenol - PO Q6H PRN FEVER Albumin Human 12.5 gm 08/19/17 16:00 Albumin Human 25% IVPB Q30M [facility] Alprazolam 0.25 mg 08/19/17 15:44 08/19/17 22:01 Xanax - PO 0.25 mg BID PRN Administration ANXIETY Clopidogrel Bisulfate 75 mg 08/20/17 10:00 08/20/17 10:17 Plavix - PO 75 mg DAILY [facility] Administration Docusate Sodium 100 mg 08/19/17 22:00 08/20/17 21:37 Colace - PO 100 mg TID [facility] Administration Guaifenesin 5 ml 08/19/17 15:44 Diabetic Tussin Dm - PO Q6H PRN COUGH Piperacillin Sod/Tazobactam 50 mls @ 100 mls/hr 08/19/17 18:00 08/20/17 17:15 Sod 2.25 gm/ Dextrose IVPB 100 mls/hr Q8H-IV [facility] Administration Protocol Levothyroxine Sodium 75 mcg 08/20/17 07:00 08/20/17 06:05 Synthroid - PO 75 mcg DAILY@0700 [facility] Administration Melatonin 5 mg 08/19/17 15:44 08/19/17 22:01 Melatonin PO 5 mg HS PRN Administration INSOMNIA Metoprolol Succinate 12.5 mg 08/20/17 10:00 08/20/17 10:15 Toprol Xl - PO Not Given DAILY [facility] Oxycodone HCl 5 mg 08/19/17 15:44 Roxicodone - PO Q4H PRN PAIN LEVEL 4 - 6 Oxycodone HCl 10 mg 08/19/17 15:44 08/20/17 19:34 Roxicodone - PO 10 mg Q6H PRN Administration PAIN LEVEL 7 - 10 Sacubitril/Valsartan 1 tab 08/19/17 22:00 08/20/17 21:37 Entresto 24 Mg-26 Mg Tablet PO Not Given BID [facility] Senna 2 tab 08/19/17 22:00 08/20/17 21:37 Senna - PO 2 tab HS [facility] Administration Warfarin Sodium 2 mg 08/19/17 18:00 08/20/17 17:14 Coumadin - PO 2 mg DAILY@1800 [facility] Administration ASSESSMENT/PLAN: 72 year-old male with a PMH significant for HTN, CAD s/p ND, afib on coumadin, heart failure s/p PPM/AICD, NIDDM with neuropathy, h/o PE, ESRD on HD (,,Mon) , and colon cancer. Admitted for sepsis initially diagnosed as cellulitis of right 4th and 5th toes, now confirmed osteo. 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 Cope CHF --continue Entresto, Toprol XL --not on diuretics Atrial fibrillation --INR therapeutic on coumadin --rate well-controlled, continue Toprol XL NIDDM --diet controlled ESRD on HD (,,) Hypertension --periods of hypotension; nitrates dc'd DVT prophylaxis: on coumadin Dispo: needs PICC and SNF placement. Full code. Visit type - Emergency Visit Emergency Visit: Yes ED Registration Date: 08/10/17 Care time: The patient presented to the Emergency Department on the above date and was hospitalized for further evaluation of their emergent condition. - New Patient This patient is new to me today: Yes Date on this admission: 08/21/17 - Critical Care Critical Care patient: No
[2017-08-21] MEDS ORDERED: PIPERACILLIN/TAZOBACTAM 2.25 GM VIAL IVPB ONE ×3 (01:06→18:27)
[2017-08-21] MEDS ORDERED: DEXTROSE 5%-WATER - 50 ML IVPB ONE ×3 (01:07→18:28)
[2017-08-21] MEDS: MELATONIN 5 MG TABLETS PO PRN (01:12)
[2017-08-21] MEDS: oxyCODONE HCL 5 MG TABLET PO PRN ×4 (01:12→21:51)
[2017-08-21] MEDS: PIPERACILLIN/TAZOB 2.25 GM 2.25 GM in DEXTROSE 5%-WATER - 50 ML IVPB SCH ×3 (01:13→18:49)
[2017-08-21] MEDS ORDERED: PT OWN MED DRAWER 7, Y5N ONE ×2 (05:56→21:49)
[2017-08-21] MEDS: LEVOTHYROXINE NA 75 MCG TABLET (FP) PO SCH (06:03)
[2017-08-21] MEDS: DOCUSATE SODIUM 100 MG CAPSULE (FP) PO SCH ×3 (06:03→21:52)
[2017-08-21 07:25] LABS: BASO % 1.6 % (0-2.0); HEMATOCRIT 35.2 % (35.4-49); HEMOGLOBIN 11.4 GM/dL (11.7-16.9); LYMPH % 12.2 % (8-40); MCH 30.1 pg (25.7-33.7); MCHC 32.4 g/dl (32.0-35.9); MEAN CELL VOLUME 92.8 fl (80-96); MEAN PLT VOLUME 8.8 fl (7.5-11.1); MONO % 16.1 % (3.8-10.2); NEUT % 68.1 % (42.8-82.8); PLATELET COUNT 230 K/MM3 (134-434); RBC 3.79 M/mm3 (4.00-5.60); RDW 19.6 % (11.9-15.9); WHITE BLOOD COUNT 7.5 K/mm3 (4.0-10.0)
[2017-08-21 07:39] LABS: INR 2.22 (0.82-1.09); PROTHROMBIN TIME (PATIENT) 25.1 SEC (9.7-13.0)
[2017-08-21 07:52] LABS: ALBUMIN 2.4 g/dl (3.4-5.0); ANION GAP 10 (8-16); CALCIUM 8.6 mg/dL (8.5-10.1); CHLORIDE 95 mmol/L (98-107); CO2 33 mmol/L (21-32); GLUCOSE,RANDOM 90 mg/dL (74-106); MAGNESIUM 2.1 mg/dL (1.8-2.4); POTASSIUM 4.1 mmol/L (3.5-5.1); SGOT/AST 32 U/L (15-37); SGPT/ALT 16 U/L (12-78); SODIUM 138 mmol/L (136-145)
[2017-08-21 07:55] LABS: ALK PHOS 129 U/L (45-117); BILIRUBIN,TOTAL 1.3 mg/dL (0.2-1.0); BLOOD UREA NITROGEN 25 mg/dL (7-18); TOT PROT 7.6 g/dl (6.4-8.2)
--- NOTE | 2017-08-21 08:39 | PN ---
Progress Note (short form) - Note Progress Note: Less pain Afeb Right 5th toe amp site dressing with small amount of serous drainage Stable ?need for outpatient ABx - can get on dialysis Physical therapy for partial weight bearing right foot Discharge with follow up in office. Problem List - Problems (1) Open wound of foot Code(s): S91.309A - UNSPECIFIED OPEN WOUND, UNSPECIFIED FOOT, INITIAL ENCOUNTER Qualifiers: Encounter type: subsequent encounter Laterality: right Qualified Code(s) : S91.301D - Unspecified open wound, right foot, subsequent encounter
--- NOTE | 2017-08-21 09:31 | PN ---
Progress Note (short form) - Note Progress Note: Patient seen in bed today. no pain. vss. Tmax 98.6 +clean dry dressing, -breakthrough bleeding, wbc=7.5, [id number]=7.9 normal post op pvd betadine dressing changes at home. present throughout visit. PT consult walker PWB right foot. VNS at home. will follow. Can be dc from [facility]. PTR to [facility].
--- NOTE | 2017-08-21 09:38 | PN ---
Physical Exam: SUBJECTIVE: Patient seen and examined. Advised patient of osteo diagnosis. Lengthy discussion about plan of care. OBJECTIVE: Vital Signs Period Temp Pulse Resp BP Sys/Yoon Pulse Ox Last 24 Hr 97.3 F-98.8 F 65-70 18-20 75-102/44-70 95 GENERAL: The patient is awake, alert, and fully oriented, in no acute distress. LUNGS: Breath sounds equal, clear to auscultation bilaterally, no wheezes, no crackles, no accessory muscle use. HEART: Regular rate and rhythm, S1, S2 without murmur, rub or gallop. ABDOMEN: Soft, nontender, nondistended, normoactive bowel sounds EXTREMITIES: right foot wrapped, dressing c/d/i; three toes exposed, warm but no sensation NEUROLOGICAL: Cranial nerves II through XII grossly intact. Normal speech. Laboratory Results - last 24 hr 08/21/17 08/21/17 08/21/17 06:40 06:40 06:40 WBC 7.5 RBC 3.79 L Hgb 11.4 L Hct 35.2 L MCV 92.8 MCH 30.1 MCHC 32.4 RDW 19.6 H Plt Count 230 MPV 8.8 D Absolute Neuts (auto) 5.1 Neutrophils % 68.1 Lymphocytes % 12.2 D Monocytes % 16.1 H Eosinophils % 2.0 Basophils % 1.6 D Nucleated RBC % 0 PT with INR 25.10 H INR 2.22 H Sodium 138 Potassium 4.1 Chloride 95 L Carbon Dioxide 33 H Anion Gap 10 BUN 25 H Creatinine 8.0 H* Creat Clearance w eGFR 6.68 Random Glucose 90 Calcium 8.6 Magnesium 2.1 Total Bilirubin 1.3 H AST 32 ALT 16 Alkaline Phosphatase 129 H Total Protein 7.6 Albumin 2.4 L Active Medications Generic Name Dose Route Start Last Admin Trade Name Freq PRN Reason Stop Dose Admin Acetaminophen 650 mg 08/19/17 15:44 Tylenol - PO Q6H PRN FEVER Albumin Human 12.5 gm 08/19/17 16:00 Albumin Human 25% IVPB Q30M [facility] Alprazolam 0.25 mg 08/19/17 15:44 08/19/17 22:01 Xanax - PO 0.25 mg BID PRN Administration ANXIETY Clopidogrel Bisulfate 75 mg 08/20/17 10:00 08/20/17 10:17 Plavix - PO 75 mg DAILY [facility] Administration Docusate Sodium 100 mg 08/19/17 22:00 08/21/17 06:03 Colace - PO 100 mg TID [facility] Administration Guaifenesin 5 ml 08/19/17 15:44 Diabetic Tussin Dm - PO Q6H PRN COUGH Piperacillin Sod/Tazobactam 50 mls @ 100 mls/hr 08/19/17 18:00 08/21/17 01:13 Sod 2.25 gm/ Dextrose IVPB 100 mls/hr Q8H-IV [facility] Administration Protocol Levothyroxine Sodium 75 mcg 08/20/17 07:00 08/21/17 06:03 Synthroid - PO 75 mcg DAILY@0700 [facility] Administration Melatonin 5 mg 08/19/17 15:44 08/21/17 01:12 Melatonin PO 5 mg HS PRN Administration INSOMNIA Metoprolol Succinate 12.5 mg 08/20/17 10:00 08/20/17 10:15 Toprol Xl - PO Not Given DAILY [facility] Oxycodone HCl 5 mg 08/19/17 15:44 Roxicodone - PO Q4H PRN PAIN LEVEL 4 - 6 Oxycodone HCl 10 mg 08/19/17 15:44 08/21/17 06:11 Roxicodone - PO 10 mg Q6H PRN Administration PAIN LEVEL 7 - 10 Sacubitril/Valsartan 1 tab 08/19/17 22:00 08/20/17 21:37 Entresto 24 Mg-26 Mg Tablet PO Not Given BID [facility] Senna 2 tab 08/19/17 22:00 08/20/17 21:37 Senna - PO 2 tab HS [facility] Administration Warfarin Sodium 2 mg 08/19/17 18:00 08/20/17 17:14 Coumadin - PO 2 mg DAILY@1800 [facility] Administration ASSESSMENT/PLAN 72 year-old male with a PMH significant for HTN, CAD s/p AR, afib on coumadin, heart failure s/p PPM/AICD, h/o PE, NIDDM with neuropathy, h/o PE, ESRD on HD (T ,Th,Sat), hypothyroidism, and colon cancer. Admitted for sepsis secondary to cellulitis of right 4th and 5th toes, now confirmed osteo. 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 Cope PAD s/p revascularization right posterior tibial artery with athrectomy and angioplasty 08/15 Systolic heart failure, chronic --08/11 Echo: LV severely decreased function; RV moderately decreased function ; mod LAE, mild MR, TR, AR, moderate pericardial effusion not in tamponade --continue Entresto, Toprol XL --not on diuretics CAD s/p AR --continue Toprol XL, Plavix Atrial fibrillation --INR therapeutic on coumadin --rate well-controlled, continue Toprol XL NIDDM --diet controlled ESRD on HD (,,) Hypertension --periods of hypotension; nitrates dc'd Hypothyroidism --continue levothyroxine DVT prophylaxis: on coumadin Dispo: needs PICC and SNF placement. Full code. Visit type - Emergency Visit Emergency Visit: Yes ED Registration Date: 08/10/17 Care time: The patient presented to the Emergency Department on the above date and was hospitalized for further evaluation of their emergent condition. - New Patient This patient is new to me today: No - Critical Care Critical Care patient: No
[2017-08-21] MEDS: SACUBITRIL/VALSARTAN 24 MG-26 MG TABLET PO SCH ×2 (10:33→21:58)
[2017-08-21] MEDS: metoPROLOL SUCCINATE 25 MG TAB.SR.24H (FP) PO SCH (10:34)
[2017-08-21] MEDS: CLOPIDOGREL BISULFATE 75 MG TABLET (FP) PO SCH (10:35)
--- NOTE | 2017-08-21 14:36 | PN ---
Progress Note, Physician History of Present Illness: patient doing well no new issues - Current Medication List Current Medications: Active Medications Acetaminophen (Tylenol -) 650 mg PO Q6H PRN PRN Reason: FEVER Albumin Human (Albumin Human 25%) 12.5 gm IVPB Q30M [facility] Alprazolam (Xanax -) 0.25 mg PO BID PRN PRN Reason: ANXIETY Last Admin: 08/19/17 22:01 Dose: 0.25 mg Clopidogrel Bisulfate (Plavix -) 75 mg PO DAILY [facility] Last Admin: 08/21/17 10:35 Dose: 75 mg Docusate Sodium (Colace -) 100 mg PO TID [facility] Last Admin: 08/21/17 06:03 Dose: 100 mg Guaifenesin (Diabetic Tussin Dm -) 5 ml PO Q6H PRN PRN Reason: COUGH Piperacillin Sod/Tazobactam (Sod 2.25 gm/ Dextrose) 50 mls @ 100 mls/hr IVPB Q8H-IV [facility]; Protocol Last Admin: 08/21/17 10:34 Dose: 100 mls/hr Levothyroxine Sodium (Synthroid -) 75 mcg PO DAILY@0700 [facility] Last Admin: 08/21/17 06:03 Dose: 75 mcg Melatonin (Melatonin) 5 mg PO HS PRN PRN Reason: INSOMNIA Last Admin: 08/21/17 01:12 Dose: 5 mg Metoprolol Succinate (Toprol Xl -) 12.5 mg PO DAILY [facility] Last Admin: 08/21/17 10:34 Dose: 12.5 mg Oxycodone HCl (Roxicodone -) 5 mg PO Q4H PRN PRN Reason: PAIN LEVEL 4 - 6 Oxycodone HCl (Roxicodone -) 10 mg PO Q6H PRN PRN Reason: PAIN LEVEL 7 - 10 Last Admin: 08/21/17 06:11 Dose: 10 mg Sacubitril/Valsartan (Entresto 24 Mg-26 Mg Tablet) 1 tab PO BID [facility] Last Admin: 08/21/17 10:33 Dose: Not Given Senna (Senna -) 2 tab PO HS [facility] Last Admin: 08/20/17 21:37 Dose: 2 tab Warfarin Sodium (Coumadin -) 2 mg PO DAILY@1800 [facility] Last Admin: 08/20/17 17:14 Dose: 2 mg - Objective Vital Signs: Vital Signs Temperature 98.4 F 08/21/17 09:45 Pulse Rate 65 08/21/17 09:45 Respiratory Rate 18 08/21/17 09:45 Blood Pressure 80/47 08/21/17 09:45 O2 Sat by Pulse Oximetry (%) 95 08/20/17 21:00 Constitutional: Yes: No Distress, Calm Cardiovascular: Yes: Regular Rate and Rhythm Respiratory: Yes: Regular, CTA Bilaterally Gastrointestinal: Yes: Normal Bowel Sounds, Soft Musculoskeletal: Yes: WNL Extremities: Yes: Other Wound/Incision: Yes: Dressing Dry and Intact Neurological: Yes: Alert, Oriented Psychiatric: Yes: Alert, Oriented Labs: CBC, BMP 08/21/17 06:40 08/21/17 06:40 INR, PTT INR 2.22 (0.82-1.09) H 08/21/17 06:40 Assessment/Plan patient coming in a type of sepsis picture i think his invection is coming from the wound itself he has multiple other issues Problem List - Problems (1) Atrial fibrillation Code(s): I48.91 - UNSPECIFIED ATRIAL FIBRILLATION Qualifiers: Atrial fibrillation type: unspecified Qualified Code(s): I48.91 - Unspecified atrial fibrillation (2) Cardiomyopathy Code(s): I42.9 - CARDIOMYOPATHY, UNSPECIFIED Qualifiers: Cardiomyopathy type: unspecified Qualified Code(s): I42.9 - Cardiomyopathy , unspecified (3) Cellulitis of right lower extremity Code(s): L03.115 - CELLULITIS OF RIGHT LOWER LIMB (4) ESRD (end stage renal disease) Code(s): N18.6 - END STAGE RENAL DISEASE (5) Hypotension Code(s): I95.9 - HYPOTENSION, UNSPECIFIED Qualifiers: Hypotension type: other hypotension type Qualified Code(s): I95.89 - Other hypotension (6) Hypothyroid Code(s): E03.9 - HYPOTHYROIDISM, UNSPECIFIED Qualifiers: Hypothyroidism type: unspecified Qualified Code(s): E03.9 - Hypothyroidism , unspecified (7) ICD (implantable cardioverter-defibrillator) in place Code(s): Z95.810 - PRESENCE OF AUTOMATIC (IMPLANTABLE) CARDIAC DEFIBRILLATOR (8) Open wound of foot Code(s): S91.309A - UNSPECIFIED OPEN WOUND, UNSPECIFIED FOOT, INITIAL ENCOUNTER Qualifiers: Encounter type: initial encounter Laterality: right Qualified Code(s): S91.301A - Unspecified open wound, right foot, initial encounter plan continue abx all cx reports note patient to continue with zosyn for 4 more weeks wound care
--- NOTE | 2017-08-21 14:57 | PN ---
Progress Note, Physician History of Present Illness: Pt seen and examined at bedside. He is awake and alert. He denies shortness of breath. - Current Medication List Current Medications: Active Medications Acetaminophen (Tylenol -) 650 mg PO Q6H PRN PRN Reason: FEVER Albumin Human (Albumin Human 25%) 12.5 gm IVPB Q30M [facility] Alprazolam (Xanax -) 0.25 mg PO BID PRN PRN Reason: ANXIETY Last Admin: 08/19/17 22:01 Dose: 0.25 mg Clopidogrel Bisulfate (Plavix -) 75 mg PO DAILY [facility] Last Admin: 08/21/17 10:35 Dose: 75 mg Docusate Sodium (Colace -) 100 mg PO TID [facility] Last Admin: 08/21/17 14:47 Dose: 100 mg Guaifenesin (Diabetic Tussin Dm -) 5 ml PO Q6H PRN PRN Reason: COUGH Piperacillin Sod/Tazobactam (Sod 2.25 gm/ Dextrose) 50 mls @ 100 mls/hr IVPB Q8H-IV [facility]; Protocol Last Admin: 08/21/17 10:34 Dose: 100 mls/hr Levothyroxine Sodium (Synthroid -) 75 mcg PO DAILY@0700 [facility] Last Admin: 08/21/17 06:03 Dose: 75 mcg Melatonin (Melatonin) 5 mg PO HS PRN PRN Reason: INSOMNIA Last Admin: 08/21/17 01:12 Dose: 5 mg Metoprolol Succinate (Toprol Xl -) 12.5 mg PO DAILY [facility] Last Admin: 08/21/17 10:34 Dose: 12.5 mg Oxycodone HCl (Roxicodone -) 5 mg PO Q4H PRN PRN Reason: PAIN LEVEL 4 - 6 Oxycodone HCl (Roxicodone -) 10 mg PO Q6H PRN PRN Reason: PAIN LEVEL 7 - 10 Last Admin: 08/21/17 06:11 Dose: 10 mg Sacubitril/Valsartan (Entresto 24 Mg-26 Mg Tablet) 1 tab PO BID [facility] Last Admin: 08/21/17 10:33 Dose: Not Given Senna (Senna -) 2 tab PO HS [facility] Last Admin: 08/20/17 21:37 Dose: 2 tab Warfarin Sodium (Coumadin -) 2 mg PO DAILY@1800 [facility] Last Admin: 08/20/17 17:14 Dose: 2 mg - Objective Vital Signs: Vital Signs Temperature 97.8 F 08/21/17 14:00 Pulse Rate 65 08/21/17 14:00 Respiratory Rate 17 08/21/17 14:00 Blood Pressure 83/43 08/21/17 14:00 O2 Sat by Pulse Oximetry (%) 95 08/20/17 21:00 Constitutional: Yes: Calm Eyes: Yes: Conjunctiva Clear HENT: Yes: Atraumatic Neck: Yes: Supple Cardiovascular: Yes: S1, S2 Respiratory: Yes: CTA Bilaterally Gastrointestinal: Yes: Soft Genitourinary: Yes: WNL Musculoskeletal: Yes: WNL Edema: Yes Edema: LLE: Trace, RLE: Trace Wound/Incision: Yes: Dressing Dry and Intact Neurological: Yes: Oriented Psychiatric: Yes: Oriented Labs: CBC, BMP 08/21/17 06:40 08/21/17 06:40 INR, PTT INR 2.22 (0.82-1.09) H 08/21/17 06:40 Problem List - Problems (1) ESRD (end stage renal disease) Code(s): N18.6 - END STAGE RENAL DISEASE (2) Pericardial effusion Code(s): I31.3 - PERICARDIAL EFFUSION (NONINFLAMMATORY) (3) Hypotension Code(s): I95.9 - HYPOTENSION, UNSPECIFIED Qualifiers: Hypotension type: other hypotension type Qualified Code(s): I95.89 - Other hypotension (4) Hypothyroid Code(s): E03.9 - HYPOTHYROIDISM, UNSPECIFIED Qualifiers: Hypothyroidism type: unspecified Qualified Code(s): E03.9 - Hypothyroidism , unspecified (5) Atrial fibrillation Code(s): I48.91 - UNSPECIFIED ATRIAL FIBRILLATION Qualifiers: Atrial fibrillation type: unspecified Qualified Code(s): I48.91 - Unspecified atrial fibrillation (6) Open wound of foot Code(s): S91.309A - UNSPECIFIED OPEN WOUND, UNSPECIFIED FOOT, INITIAL ENCOUNTER Qualifiers: Encounter type: subsequent encounter Laterality: right Qualified Code(s) : S91.301D - Unspecified open wound, right foot, subsequent encounter Assessment/Plan Current Medications Generic Name Dose Route Start Last Admin Trade Name Freq PRN Reason Stop Dose Admin Acetaminophen 650 mg 08/19/17 15:44 Tylenol - PO Q6H PRN FEVER Albumin Human 12.5 gm 08/19/17 16:00 Albumin Human 25% IVPB Q30M [facility] Alprazolam 0.25 mg 08/19/17 15:44 08/19/17 22:01 Xanax - PO 0.25 mg BID PRN Administration ANXIETY Clopidogrel Bisulfate 75 mg 08/20/17 10:00 08/21/17 10:35 Plavix - PO 75 mg DAILY [facility] Administration Docusate Sodium 100 mg 08/19/17 22:00 08/21/17 14:47 Colace - PO 100 mg TID [facility] Administration Guaifenesin 5 ml 08/19/17 15:44 Diabetic Tussin Dm - PO Q6H PRN COUGH Piperacillin Sod/Tazobactam 50 mls @ 100 mls/hr 08/19/17 18:00 08/21/17 10:34 Sod 2.25 gm/ Dextrose IVPB 100 mls/hr Q8H-IV [facility] Administration Protocol Levothyroxine Sodium 75 mcg 08/20/17 07:00 08/21/17 06:03 Synthroid - PO 75 mcg DAILY@0700 [facility] Administration Melatonin 5 mg 08/19/17 15:44 08/21/17 01:12 Melatonin PO 5 mg HS PRN Administration INSOMNIA Metoprolol Succinate 12.5 mg 08/20/17 10:00 08/21/17 10:34 Toprol Xl - PO 12.5 mg DAILY [facility] Administration Oxycodone HCl 5 mg 08/19/17 15:44 Roxicodone - PO Q4H PRN PAIN LEVEL 4 - 6 Oxycodone HCl 10 mg 08/19/17 15:44 08/21/17 06:11 Roxicodone - PO 10 mg Q6H PRN Administration PAIN LEVEL 7 - 10 Sacubitril/Valsartan 1 tab 08/19/17 22:00 08/21/17 10:33 Entresto 24 Mg-26 Mg Tablet PO Not Given BID [facility] Senna 2 tab 08/19/17 22:00 08/20/17 21:37 Senna - PO 2 tab HS [facility] Administration Warfarin Sodium 2 mg 08/19/17 18:00 08/20/17 17:14 Coumadin - PO 2 mg DAILY@1800 [facility] Administration Impression 1. ESRD 2. pericardial effusion 3. pneumopericardium 4. hypothyroidism 5. a-fib 6. hypotension 7. hx of colon cancer 8. CHF 9. DM 10. hx of PE 11. CAD Plan - HD tomorrow - vascular follow up - abx per ID - cont wound care - will follow Dr Conklin
--- NOTE | 2017-08-21 15:06 | EKG ---
Test Reason : Blood Pressure : / mmHG Vent. Rate : 066 BPM Atrial Rate : 043 BPM P-R Int : 000 ms QRS Dur : 162 ms QT Int : 498 ms P-R-T Axes : 000 -66 116 degrees QTc Int : 522 ms Ventricular-paced rhythm WITH OCCASIONAL PREMATURE VENTRICULAR COMPLEXES Biventricular pacemaker detected UNDERLYING ATRIAL FIBRILLATION ABNORMAL ECG WHEN COMPARED WITH ECG OF 10-AUG-2017 12:38, NO SIGNIFICANT CHANGE WAS FOUND Confirmed by SUHAS WARD, KIRBY ([id number]) on 08/21/2017 3:05:53 PM Referred By: Confirmed By:KIRBY DAI MD
--- NOTE | 2017-08-21 15:27 | PN ---
Progress Note, Physician History of Present Illness: He denies chest pain reports at baseline dyspnea, denies palpitations, near or true syncope, orthopnea, PND or LE edema. Left foot pain adequately controlled, able to weight bear. - Current Medication List Current Medications: Active Medications Acetaminophen (Tylenol -) 650 mg PO Q6H PRN PRN Reason: FEVER Albumin Human (Albumin Human 25%) 12.5 gm IVPB Q30M [facility] Alprazolam (Xanax -) 0.25 mg PO BID PRN PRN Reason: ANXIETY Last Admin: 08/19/17 22:01 Dose: 0.25 mg Clopidogrel Bisulfate (Plavix -) 75 mg PO DAILY [facility] Last Admin: 08/21/17 10:35 Dose: 75 mg Docusate Sodium (Colace -) 100 mg PO TID [facility] Last Admin: 08/21/17 14:47 Dose: 100 mg Guaifenesin (Diabetic Tussin Dm -) 5 ml PO Q6H PRN PRN Reason: COUGH Piperacillin Sod/Tazobactam (Sod 2.25 gm/ Dextrose) 50 mls @ 100 mls/hr IVPB Q8H-IV [facility]; Protocol Last Admin: 08/21/17 10:34 Dose: 100 mls/hr Sodium Chloride (Normal Saline -) 250 mls @ 3,000 mls/hr IV PRN PRN PRN Reason: Hypotension during Dialysis Stop: 08/22/17 22:00 Levothyroxine Sodium (Synthroid -) 75 mcg PO DAILY@0700 [facility] Last Admin: 08/21/17 06:03 Dose: 75 mcg Melatonin (Melatonin) 5 mg PO HS PRN PRN Reason: INSOMNIA Last Admin: 08/21/17 01:12 Dose: 5 mg Metoprolol Succinate (Toprol Xl -) 12.5 mg PO DAILY [facility] Last Admin: 08/21/17 10:34 Dose: 12.5 mg Oxycodone HCl (Roxicodone -) 5 mg PO Q4H PRN PRN Reason: PAIN LEVEL 4 - 6 Last Admin: 08/21/17 15:21 Dose: 5 mg Oxycodone HCl (Roxicodone -) 10 mg PO Q6H PRN PRN Reason: PAIN LEVEL 7 - 10 Last Admin: 08/21/17 06:11 Dose: 10 mg Sacubitril/Valsartan (Entresto 24 Mg-26 Mg Tablet) 1 tab PO BID [facility] Last Admin: 08/21/17 10:33 Dose: Not Given Senna (Senna -) 2 tab PO HS [facility] Last Admin: 08/20/17 21:37 Dose: 2 tab Warfarin Sodium (Coumadin -) 2 mg PO DAILY@1800 [facility] Last Admin: 08/20/17 17:14 Dose: 2 mg - Objective Vital Signs: Vital Signs Temperature 97.8 F 08/21/17 14:00 Pulse Rate 65 08/21/17 14:00 Respiratory Rate 17 08/21/17 14:00 Blood Pressure 83/43 08/21/17 14:00 O2 Sat by Pulse Oximetry (%) 95 08/20/17 21:00 Constitutional: Yes: No Distress, Calm, Thin Neck: Yes: Supple Cardiovascular: Yes: Pulse Irregular Respiratory: Yes: Regular, Diminished, On Nasal O2 Gastrointestinal: Yes: Normal Bowel Sounds, Soft Edema: No Labs: CBC, BMP 08/21/17 06:40 08/21/17 06:40 INR, PTT INR 2.22 (0.82-1.09) H 08/21/17 06:40 Problem List - Problems (1) Cardiomyopathy Code(s): I42.9 - CARDIOMYOPATHY, UNSPECIFIED Qualifiers: Cardiomyopathy type: unspecified Qualified Code(s): I42.9 - Cardiomyopathy , unspecified (2) ICD (implantable cardioverter-defibrillator) in place Code(s): Z95.810 - PRESENCE OF AUTOMATIC (IMPLANTABLE) CARDIAC DEFIBRILLATOR (3) Atrial fibrillation Code(s): I48.91 - UNSPECIFIED ATRIAL FIBRILLATION Qualifiers: Atrial fibrillation type: unspecified Qualified Code(s): I48.91 - Unspecified atrial fibrillation (4) Cellulitis of right lower extremity Code(s): L03.115 - CELLULITIS OF RIGHT LOWER LIMB (5) ESRD (end stage renal disease) Code(s): N18.6 - END STAGE RENAL DISEASE (6) Hypotension Code(s): I95.9 - HYPOTENSION, UNSPECIFIED Qualifiers: Hypotension type: other hypotension type Qualified Code(s): I95.89 - Other hypotension (7) Hypothyroid Code(s): E03.9 - HYPOTHYROIDISM, UNSPECIFIED Qualifiers: Hypothyroidism type: unspecified Qualified Code(s): E03.9 - Hypothyroidism , unspecified (8) Pericardial effusion Code(s): I31.3 - PERICARDIAL EFFUSION (NONINFLAMMATORY) (9) Amputated toe of right foot Code(s): Z89.421 - ACQUIRED ABSENCE OF OTHER RIGHT TOE(S) (10) Status post peripheral artery angioplasty Code(s): Z98.62 - PERIPHERAL VASCULAR ANGIOPLASTY STATUS (11) Diabetic foot ulcer Code(s): E11.621 - TYPE 2 DIABETES MELLITUS WITH FOOT ULCER; L97.509 - NON- PRESSURE CHRONIC ULCER OTH PRT UNSP FOOT W UNSP SEVERITY (12) Open wound of foot Code(s): S91.309A - UNSPECIFIED OPEN WOUND, UNSPECIFIED FOOT, INITIAL ENCOUNTER Qualifiers: Encounter type: subsequent encounter Laterality: right Qualified Code(s) : S91.301D - Unspecified open wound, right foot, subsequent encounter Assessment/Plan 08/11/2017 Echo: Mildly dilated with severly decreased LV fxn, mild-mod dilated with mod decreased RV fxn, mod LAE, mild MR, TR, AR, moderate pericardial effusion not in tamponade 01/19/2016 Echo: Mild LV dilatation, mild cLVH, LVEF 15-20%, diastolic dysfunction, severe LAE, mod NEGRO, mild AR, MR, TR, GA RVSP 52 mmHg, small pericardial effusion 11/11/2016 Lexiscan: Large MN involving apex, inferior wall, inferolateral small area mild periinfarct ischemia mid anterior wall, dilated severly decreased LVEF 26, RV dilated 1. Ischemic dilated cardiomyopathy s/p ICD 2. ESRD on HD T, TH, Sat RUE AVF 3. Pericardial effusion ? uremic pericarditis 4. Hypothyroidism 5. Persistent afib [id number] score of 3-4 on Coumadin with therapeutic INR 6. 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 hx of colon cancer 8. DM 9. hx of PE 10. CAD s/p MN, post demand ischemia 11. DM c/b neuropathy Plan 1. Empiric abx course for 4 more weeks per C&S, post-op wound care 2. HD as hemodynamics tolerate to reduce pericardial effusion, hold Lasix 3. Continue Coumadin dose per INR and Plavix 75 qd with caution given pericardial effusion 4. Continue Toprol 12.5 qd, Entresto 24/26 bid as hemodynamics tolerate, Isordil since d/alirio 5. Patient saw Dr. Jayjay Karimi at [facility] 06/23/2017 pre-renal transplant eval, outpt records reviewed, usually sees Dr. Ghassan Durant at [facility] 6. PT as tolerated
[2017-08-21] MEDS: WARFARIN NA 2 MG TABLET (UD) PO SCH (18:48)
[2017-08-21] MEDS: SENNOSIDES 8.6MG TABLET (FP) PO SCH (21:51)
[2017-08-22] MEDS ORDERED: PIPERACILLIN/TAZOBACTAM 2.25 GM VIAL IVPB ONE ×3 (01:50→18:19)
[2017-08-22] MEDS ORDERED: DEXTROSE 5%-WATER - 50 ML IVPB ONE ×3 (01:50→18:19)
[2017-08-22] MEDS ORDERED: PT OWN MED DRAWER 7, Y5N ONE ×2 (01:54→22:33)
[2017-08-22] MEDS: MELATONIN 5 MG TABLETS PO PRN (01:57)
[2017-08-22] MEDS: oxyCODONE HCL 5 MG TABLET PO PRN ×2 (01:57→13:21)
[2017-08-22] MEDS: PIPERACILLIN/TAZOB 2.25 GM 2.25 GM in DEXTROSE 5%-WATER - 50 ML IVPB SCH ×3 (01:57→18:29)
[2017-08-22] MEDS: DOCUSATE SODIUM 100 MG CAPSULE (FP) PO SCH ×3 (06:15→22:37)
[2017-08-22] MEDS: LEVOTHYROXINE NA 75 MCG TABLET (FP) PO SCH (06:15)
[2017-08-22] MEDS: SACUBITRIL/VALSARTAN 24 MG-26 MG TABLET PO SCH ×2 (10:25→22:45)
[2017-08-22] MEDS: metoPROLOL SUCCINATE 25 MG TAB.SR.24H (FP) PO SCH (10:26)
--- NOTE | 2017-08-22 12:12 | PN ---
Progress Note (short form) - Note Progress Note: Resting in NAD. No CP or SOB. No acute events overnight. Intake & Output 08/19/17 08/20/17 08/21/17 08/22/17 23:59 23:59 23:59 23:59 Intake Total 482 1150 900 50 Output Total 0 Balance 482 1150 900 50 Weight 205 lb 4 oz 203 lb 8 oz Last Vital Signs Temp Pulse Resp BP Pulse Ox 97.9 F 68 18 108/62 95 08/22/17 09:55 08/22/17 12:00 08/22/17 12:00 08/22/17 12:00 08/21/17 09:00 Active Medications Acetaminophen (Tylenol -) 650 mg PO Q6H PRN PRN Reason: FEVER Last Admin: 08/22/17 02:10 Dose: 650 mg Albumin Human (Albumin Human 25%) 12.5 gm IVPB Q30M [facility] Alprazolam (Xanax -) 0.25 mg PO BID PRN PRN Reason: ANXIETY Last Admin: 08/19/17 22:01 Dose: 0.25 mg Clopidogrel Bisulfate (Plavix -) 75 mg PO DAILY [facility] Last Admin: 08/21/17 10:35 Dose: 75 mg Docusate Sodium (Colace -) 100 mg PO TID [facility] Last Admin: 08/22/17 06:15 Dose: 100 mg Guaifenesin (Diabetic Tussin Dm -) 5 ml PO Q6H PRN PRN Reason: COUGH Piperacillin Sod/Tazobactam (Sod 2.25 gm/ Dextrose) 50 mls @ 100 mls/hr IVPB Q8H-IV [facility]; Protocol Last Admin: 08/22/17 01:57 Dose: 100 mls/hr Sodium Chloride (Normal Saline -) 250 mls @ 3,000 mls/hr IV PRN PRN PRN Reason: Hypotension during Dialysis Stop: 08/22/17 22:00 Levothyroxine Sodium (Synthroid -) 75 mcg PO DAILY@0700 [facility] Last Admin: 08/22/17 06:15 Dose: 75 mcg Melatonin (Melatonin) 5 mg PO HS PRN PRN Reason: INSOMNIA Last Admin: 08/22/17 01:57 Dose: 5 mg Metoprolol Succinate (Toprol Xl -) 12.5 mg PO DAILY [facility] Last Admin: 08/21/17 10:34 Dose: 12.5 mg Oxycodone HCl (Roxicodone -) 5 mg PO Q4H PRN PRN Reason: PAIN LEVEL 4 - 6 Last Admin: 08/22/17 01:57 Dose: 5 mg Oxycodone HCl (Roxicodone -) 10 mg PO Q6H PRN PRN Reason: PAIN LEVEL 7 - 10 Last Admin: 08/21/17 21:51 Dose: 10 mg Sacubitril/Valsartan (Entresto 24 Mg-26 Mg Tablet) 1 tab PO BID [facility] Last Admin: 08/21/17 21:58 Dose: Not Given Senna (Senna -) 2 tab PO HS [facility] Last Admin: 08/21/17 21:51 Dose: 2 tab Warfarin Sodium (Coumadin -) 2 mg PO DAILY@1800 [facility] Last Admin: 08/21/17 18:48 Dose: 2 mg Constitutional: Yes: NAD Eyes: Yes: EOM Intact HENT: Yes: Normocephalic Neck: Yes: Trachea Midline Cardiovascular: Yes: S1, S2, Other (PACED) Respiratory: Yes: Clear Gastrointestinal: Yes: Normal Bowel Sounds Extremities: Yes: edema Labs: Laboratory Results - last 24 hr 08/22/17 06:58 POC Glucometer 96 Problem List - Problems (1) Atrial fibrillation Code(s): I48.91 - UNSPECIFIED ATRIAL FIBRILLATION Qualifiers: Atrial fibrillation type: unspecified Qualified Code(s): I48.91 - Unspecified atrial fibrillation (2) Cardiomyopathy Code(s): I42.9 - CARDIOMYOPATHY, UNSPECIFIED Qualifiers: Cardiomyopathy type: unspecified Qualified Code(s): I42.9 - Cardiomyopathy , unspecified (3) Cellulitis of right lower extremity Code(s): L03.115 - CELLULITIS OF RIGHT LOWER LIMB (4) ESRD (end stage renal disease) Code(s): N18.6 - END STAGE RENAL DISEASE (5) Hypotension Code(s): I95.9 - HYPOTENSION, UNSPECIFIED Qualifiers: Hypotension type: other hypotension type Qualified Code(s): I95.89 - Other hypotension (6) Hypothyroid Code(s): E03.9 - HYPOTHYROIDISM, UNSPECIFIED Qualifiers: Hypothyroidism type: unspecified Qualified Code(s): E03.9 - Hypothyroidism , unspecified (7) ICD (implantable cardioverter-defibrillator) in place Code(s): Z95.810 - PRESENCE OF AUTOMATIC (IMPLANTABLE) CARDIAC DEFIBRILLATOR (8) Open wound of foot Code(s): S91.309A - UNSPECIFIED OPEN WOUND, UNSPECIFIED FOOT, INITIAL ENCOUNTER Qualifiers: Encounter type: initial encounter Laterality: right Qualified Code(s): S91.301A - Unspecified open wound, right foot, initial encounter Assessment/Plan ESRD/HD DM/HTN/THYROID DISEASE LVD/AICD/AF H/O COLON CANCER DIABETIC NEUROPATHY/DIABETIC FOOT ULCER O2/BRONCHODILATORS PRN ANTICOAGULATION WITH COUMADIN ABX PER ID NO SMOKING PAIN CONTROL D/C PLANNING DR GUTIERREZ
--- NOTE | 2017-08-22 14:17 | PN ---
Progress Note, Physician History of Present Illness: Pt seen and examined at bedside. He is awake and alert. He denies shortness of breath. He is currently getting HD. - Current Medication List Current Medications: Active Medications Acetaminophen (Tylenol -) 650 mg PO Q6H PRN PRN Reason: FEVER Last Admin: 08/22/17 02:10 Dose: 650 mg Albumin Human (Albumin Human 25%) 12.5 gm IVPB Q30M [facility] Alprazolam (Xanax -) 0.25 mg PO BID PRN PRN Reason: ANXIETY Last Admin: 08/19/17 22:01 Dose: 0.25 mg Clopidogrel Bisulfate (Plavix -) 75 mg PO DAILY [facility] Last Admin: 08/21/17 10:35 Dose: 75 mg Docusate Sodium (Colace -) 100 mg PO TID [facility] Last Admin: 08/22/17 06:15 Dose: 100 mg Guaifenesin (Diabetic Tussin Dm -) 5 ml PO Q6H PRN PRN Reason: COUGH Piperacillin Sod/Tazobactam (Sod 2.25 gm/ Dextrose) 50 mls @ 100 mls/hr IVPB Q8H-IV [facility]; Protocol Last Admin: 08/22/17 10:26 Dose: Not Given Sodium Chloride (Normal Saline -) 250 mls @ 3,000 mls/hr IV PRN PRN PRN Reason: Hypotension during Dialysis Stop: 08/22/17 22:00 Levothyroxine Sodium (Synthroid -) 75 mcg PO DAILY@0700 [facility] Last Admin: 08/22/17 06:15 Dose: 75 mcg Melatonin (Melatonin) 5 mg PO HS PRN PRN Reason: INSOMNIA Last Admin: 08/22/17 01:57 Dose: 5 mg Metoprolol Succinate (Toprol Xl -) 12.5 mg PO DAILY [facility] Last Admin: 08/22/17 10:26 Dose: Not Given Oxycodone HCl (Roxicodone -) 5 mg PO Q4H PRN PRN Reason: PAIN LEVEL 4 - 6 Last Admin: 08/22/17 01:57 Dose: 5 mg Oxycodone HCl (Roxicodone -) 10 mg PO Q6H PRN PRN Reason: PAIN LEVEL 7 - 10 Last Admin: 08/22/17 13:21 Dose: 10 mg Sacubitril/Valsartan (Entresto 24 Mg-26 Mg Tablet) 1 tab PO BID [facility] Last Admin: 08/22/17 10:25 Dose: Not Given Senna (Senna -) 2 tab PO HS [facility] Last Admin: 08/21/17 21:51 Dose: 2 tab Warfarin Sodium (Coumadin -) 2 mg PO DAILY@1800 [facility] Last Admin: 08/21/17 18:48 Dose: 2 mg - Objective Vital Signs: Vital Signs Temperature 97.9 F 08/22/17 09:55 Pulse Rate 68 08/22/17 13:30 Respiratory Rate 18 08/22/17 13:30 Blood Pressure 95/47 08/22/17 13:30 O2 Sat by Pulse Oximetry (%) 95 08/21/17 09:00 Constitutional: Yes: Calm Eyes: Yes: Conjunctiva Clear HENT: Yes: Atraumatic Neck: Yes: Supple Cardiovascular: Yes: S1, S2 Respiratory: Yes: CTA Bilaterally Gastrointestinal: Yes: WNL Genitourinary: Yes: WNL Edema: Yes Edema: LLE: Trace, RLE: Trace Wound/Incision: Yes: Dressing Dry and Intact Neurological: Yes: Oriented Psychiatric: Yes: Oriented Labs: CBC, BMP 08/21/17 06:40 08/21/17 06:40 INR, PTT INR 2.22 (0.82-1.09) H 08/21/17 06:40 Problem List - Problems (1) ESRD (end stage renal disease) Code(s): N18.6 - END STAGE RENAL DISEASE (2) Pericardial effusion Code(s): I31.3 - PERICARDIAL EFFUSION (NONINFLAMMATORY) (3) Hypotension Code(s): I95.9 - HYPOTENSION, UNSPECIFIED Qualifiers: Hypotension type: other hypotension type Qualified Code(s): I95.89 - Other hypotension (4) Hypothyroid Code(s): E03.9 - HYPOTHYROIDISM, UNSPECIFIED Qualifiers: Hypothyroidism type: unspecified Qualified Code(s): E03.9 - Hypothyroidism , unspecified (5) Atrial fibrillation Code(s): I48.91 - UNSPECIFIED ATRIAL FIBRILLATION Qualifiers: Atrial fibrillation type: unspecified Qualified Code(s): I48.91 - Unspecified atrial fibrillation (6) Open wound of foot Code(s): S91.309A - UNSPECIFIED OPEN WOUND, UNSPECIFIED FOOT, INITIAL ENCOUNTER Qualifiers: Encounter type: subsequent encounter Laterality: right Qualified Code(s) : S91.301D - Unspecified open wound, right foot, subsequent encounter Assessment/Plan Current Medications Generic Name Dose Route Start Last Admin Trade Name Freq PRN Reason Stop Dose Admin Acetaminophen 650 mg 08/19/17 15:44 08/22/17 02:10 Tylenol - PO 650 mg Q6H PRN Administration FEVER Albumin Human 12.5 gm 08/19/17 16:00 Albumin Human 25% IVPB Q30M [facility] Alprazolam 0.25 mg 08/19/17 15:44 08/19/17 22:01 Xanax - PO 0.25 mg BID PRN Administration ANXIETY Clopidogrel Bisulfate 75 mg 08/20/17 10:00 08/21/17 10:35 Plavix - PO 75 mg DAILY [facility] Administration Docusate Sodium 100 mg 08/19/17 22:00 08/22/17 06:15 Colace - PO 100 mg TID [facility] Administration Guaifenesin 5 ml 08/19/17 15:44 Diabetic Tussin Dm - PO Q6H PRN COUGH Piperacillin Sod/Tazobactam 50 mls @ 100 mls/hr 08/19/17 18:00 08/22/17 10:26 Sod 2.25 gm/ Dextrose IVPB Not Given Q8H-IV [facility] Protocol Sodium Chloride 250 mls @ 3,000 mls/hr 08/22/17 14:59 Normal Saline - IV 08/22/17 22:00 PRN PRN Hypotension during Dialysis Levothyroxine Sodium 75 mcg 08/20/17 07:00 08/22/17 06:15 Synthroid - PO 75 mcg DAILY@0700 [facility] Administration Melatonin 5 mg 08/19/17 15:44 08/22/17 01:57 Melatonin PO 5 mg HS PRN Administration INSOMNIA Metoprolol Succinate 12.5 mg 08/20/17 10:00 08/22/17 10:26 Toprol Xl - PO Not Given DAILY [facility] Oxycodone HCl 5 mg 08/19/17 15:44 08/22/17 01:57 Roxicodone - PO 5 mg Q4H PRN Administration PAIN LEVEL 4 - 6 Oxycodone HCl 10 mg 08/19/17 15:44 08/22/17 13:21 Roxicodone - PO 10 mg Q6H PRN Administration PAIN LEVEL 7 - 10 Sacubitril/Valsartan 1 tab 08/19/17 22:00 08/22/17 10:25 Entresto 24 Mg-26 Mg Tablet PO Not Given BID [facility] Senna 2 tab 08/19/17 22:00 08/21/17 21:51 Senna - PO 2 tab HS [facility] Administration Warfarin Sodium 2 mg 08/19/17 18:00 08/21/17 18:48 Coumadin - PO 2 mg DAILY@1800 [facility] Administration Impression 1. ESRD 2. pericardial effusion 3. pneumopericardium 4. hypothyroidism 5. a-fib 6. hypotension 7. hx of colon cancer 8. CHF 9. DM 10. hx of PE 11. CAD Plan - HD today - abx per ID - vascular follow up - cont wound care - will follow Dr Conklin
[2017-08-22] MEDS: CLOPIDOGREL BISULFATE 75 MG TABLET (FP) PO SCH (14:34)
--- NOTE | 2017-08-22 14:49 | PN ---
Progress Note, Physician Chief Complaint: Events noted Being dialyzed Not in distress History of Present Illness: Patient was seen and examined. Awake and alert. Chart was reviewed Denies chest pain, SOB or palpitations - Current Medication List Current Medications: Active Medications Acetaminophen (Tylenol -) 650 mg PO Q6H PRN PRN Reason: FEVER Last Admin: 08/22/17 02:10 Dose: 650 mg Albumin Human (Albumin Human 25%) 12.5 gm IVPB Q30M [facility] Alprazolam (Xanax -) 0.25 mg PO BID PRN PRN Reason: ANXIETY Last Admin: 08/19/17 22:01 Dose: 0.25 mg Clopidogrel Bisulfate (Plavix -) 75 mg PO DAILY [facility] Last Admin: 08/22/17 14:34 Dose: 75 mg Docusate Sodium (Colace -) 100 mg PO TID [facility] Last Admin: 08/22/17 14:00 Dose: Not Given Guaifenesin (Diabetic Tussin Dm -) 5 ml PO Q6H PRN PRN Reason: COUGH Piperacillin Sod/Tazobactam (Sod 2.25 gm/ Dextrose) 50 mls @ 100 mls/hr IVPB Q8H-IV [facility]; Protocol Last Admin: 08/22/17 10:26 Dose: Not Given Sodium Chloride (Normal Saline -) 250 mls @ 3,000 mls/hr IV PRN PRN PRN Reason: Hypotension during Dialysis Stop: 08/22/17 22:00 Levothyroxine Sodium (Synthroid -) 75 mcg PO DAILY@0700 [facility] Last Admin: 08/22/17 06:15 Dose: 75 mcg Melatonin (Melatonin) 5 mg PO HS PRN PRN Reason: INSOMNIA Last Admin: 08/22/17 01:57 Dose: 5 mg Metoprolol Succinate (Toprol Xl -) 12.5 mg PO DAILY [facility] Last Admin: 08/22/17 10:26 Dose: Not Given Oxycodone HCl (Roxicodone -) 5 mg PO Q4H PRN PRN Reason: PAIN LEVEL 4 - 6 Last Admin: 08/22/17 01:57 Dose: 5 mg Oxycodone HCl (Roxicodone -) 10 mg PO Q6H PRN PRN Reason: PAIN LEVEL 7 - 10 Last Admin: 08/22/17 13:21 Dose: 10 mg Sacubitril/Valsartan (Entresto 24 Mg-26 Mg Tablet) 1 tab PO BID [facility] Last Admin: 08/22/17 10:25 Dose: Not Given Senna (Senna -) 2 tab PO HS [facility] Last Admin: 08/21/17 21:51 Dose: 2 tab Warfarin Sodium (Coumadin -) 2 mg PO DAILY@1800 [facility] Last Admin: 08/21/17 18:48 Dose: 2 mg - Objective Vital Signs: Vital Signs Temperature 97.9 F 08/22/17 09:55 Pulse Rate 65 08/22/17 14:05 Respiratory Rate 18 08/22/17 14:05 Blood Pressure 109/58 08/22/17 14:05 O2 Sat by Pulse Oximetry (%) 95 08/21/17 09:00 Eyes: Yes: PERRL HENT: Yes: Atraumatic Neck: Yes: Supple Cardiovascular: Yes: Pulse Irregular, S1, S2 Respiratory: Yes: CTA Bilaterally Gastrointestinal: Yes: Normal Bowel Sounds, Soft. No: Tenderness Edema: No Labs: CBC, BMP 08/21/17 06:40 08/21/17 06:40 INR, PTT INR 2.22 (0.82-1.09) H 08/21/17 06:40 Problem List - Problems (1) Atrial fibrillation Code(s): I48.91 - UNSPECIFIED ATRIAL FIBRILLATION Qualifiers: Atrial fibrillation type: unspecified Qualified Code(s): I48.91 - Unspecified atrial fibrillation (2) Cardiomyopathy Code(s): I42.9 - CARDIOMYOPATHY, UNSPECIFIED Qualifiers: Cardiomyopathy type: unspecified Qualified Code(s): I42.9 - Cardiomyopathy , unspecified (3) Cellulitis of right lower extremity Code(s): L03.115 - CELLULITIS OF RIGHT LOWER LIMB (4) Diabetic foot ulcer Code(s): E11.621 - TYPE 2 DIABETES MELLITUS WITH FOOT ULCER; L97.509 - NON- PRESSURE CHRONIC ULCER OTH PRT UNSP FOOT W UNSP SEVERITY (5) ESRD (end stage renal disease) Code(s): N18.6 - END STAGE RENAL DISEASE (6) Hypothyroid Code(s): E03.9 - HYPOTHYROIDISM, UNSPECIFIED Qualifiers: Hypothyroidism type: unspecified Qualified Code(s): E03.9 - Hypothyroidism , unspecified (7) ICD (implantable cardioverter-defibrillator) in place Code(s): Z95.810 - PRESENCE OF AUTOMATIC (IMPLANTABLE) CARDIAC DEFIBRILLATOR (8) Pericardial effusion Code(s): I31.3 - PERICARDIAL EFFUSION (NONINFLAMMATORY) Assessment/Plan 1. Ischemic dilated cardiomyopathy s/p ICD 2. ESRD on HD 3. Pericardial effusion 4. Hypothyroidism 5. Persistent AF [id number] score of 3-4 on Coumadin with therapeutic INR 6. 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 History of colon cancer 8. DM 9. History of PE 10. CAD s/p NM, post demand ischemia 11. DM PLAN: 1. Empiric antibiotic course and wound care 2. HD as hemodynamics tolerate 3. Continue Coumadin dose per INR and Plavix 75 qd with caution given pericardial effusion 4. Continue Toprol 12.5 qd, Entresto 24/26 bid as hemodynamics tolerate 5. Patient saw Dr. Jayjay Karimi at [facility] 06/23/2017 pre-renal transplant eval, outpt records reviewed, usually sees Dr. Ghassan Durant at [facility] 6. PT Jagdeep Booker MD
[2017-08-22] MEDS ORDERED: SODIUM CHLORIDE 250 ML IV PRN (14:59)
--- NOTE | 2017-08-22 15:29 | PN ---
Progress Note, Physician History of Present Illness: patient doing well no issues - Current Medication List Current Medications: Active Medications Acetaminophen (Tylenol -) 650 mg PO Q6H PRN PRN Reason: FEVER Last Admin: 08/22/17 02:10 Dose: 650 mg Albumin Human (Albumin Human 25%) 12.5 gm IVPB Q30M [facility] Alprazolam (Xanax -) 0.25 mg PO BID PRN PRN Reason: ANXIETY Last Admin: 08/19/17 22:01 Dose: 0.25 mg Clopidogrel Bisulfate (Plavix -) 75 mg PO DAILY [facility] Last Admin: 08/22/17 14:34 Dose: 75 mg Docusate Sodium (Colace -) 100 mg PO TID [facility] Last Admin: 08/22/17 14:00 Dose: Not Given Guaifenesin (Diabetic Tussin Dm -) 5 ml PO Q6H PRN PRN Reason: COUGH Piperacillin Sod/Tazobactam (Sod 2.25 gm/ Dextrose) 50 mls @ 100 mls/hr IVPB Q8H-IV [facility]; Protocol Last Admin: 08/22/17 10:26 Dose: Not Given Sodium Chloride (Normal Saline -) 250 mls @ 3,000 mls/hr IV PRN PRN PRN Reason: Hypotension during Dialysis Stop: 08/22/17 22:00 Levothyroxine Sodium (Synthroid -) 75 mcg PO DAILY@0700 [facility] Last Admin: 08/22/17 06:15 Dose: 75 mcg Melatonin (Melatonin) 5 mg PO HS PRN PRN Reason: INSOMNIA Last Admin: 08/22/17 01:57 Dose: 5 mg Metoprolol Succinate (Toprol Xl -) 12.5 mg PO DAILY [facility] Last Admin: 08/22/17 10:26 Dose: Not Given Oxycodone HCl (Roxicodone -) 5 mg PO Q4H PRN PRN Reason: PAIN LEVEL 4 - 6 Last Admin: 08/22/17 01:57 Dose: 5 mg Oxycodone HCl (Roxicodone -) 10 mg PO Q6H PRN PRN Reason: PAIN LEVEL 7 - 10 Last Admin: 08/22/17 13:21 Dose: 10 mg Sacubitril/Valsartan (Entresto 24 Mg-26 Mg Tablet) 1 tab PO BID [facility] Last Admin: 08/22/17 10:25 Dose: Not Given Senna (Senna -) 2 tab PO HS [facility] Last Admin: 08/21/17 21:51 Dose: 2 tab Warfarin Sodium (Coumadin -) 2 mg PO DAILY@1800 [facility] Last Admin: 08/21/17 18:48 Dose: 2 mg - Objective Vital Signs: Vital Signs Temperature 97.9 F 08/22/17 09:55 Pulse Rate 65 08/22/17 14:05 Respiratory Rate 18 08/22/17 14:05 Blood Pressure 109/58 08/22/17 14:05 O2 Sat by Pulse Oximetry (%) 95 08/21/17 09:00 Constitutional: Yes: No Distress, Calm Cardiovascular: Yes: Regular Rate and Rhythm Respiratory: Yes: Regular, CTA Bilaterally Gastrointestinal: Yes: Normal Bowel Sounds, Soft Musculoskeletal: Yes: WNL Extremities: Yes: Other Neurological: Yes: Alert, Oriented Psychiatric: Yes: Alert, Oriented Labs: CBC, BMP 08/21/17 06:40 08/21/17 06:40 INR, PTT INR 2.22 (0.82-1.09) H 08/21/17 06:40 Assessment/Plan patient coming in a type of sepsis picture i think his invection is coming from the wound itself he has multiple other issues Problem List - Problems (1) Atrial fibrillation Code(s): I48.91 - UNSPECIFIED ATRIAL FIBRILLATION Qualifiers: Atrial fibrillation type: unspecified Qualified Code(s): I48.91 - Unspecified atrial fibrillation (2) Cardiomyopathy Code(s): I42.9 - CARDIOMYOPATHY, UNSPECIFIED Qualifiers: Cardiomyopathy type: unspecified Qualified Code(s): I42.9 - Cardiomyopathy , unspecified (3) Cellulitis of right lower extremity Code(s): L03.115 - CELLULITIS OF RIGHT LOWER LIMB (4) ESRD (end stage renal disease) Code(s): N18.6 - END STAGE RENAL DISEASE (5) Hypotension Code(s): I95.9 - HYPOTENSION, UNSPECIFIED Qualifiers: Hypotension type: other hypotension type Qualified Code(s): I95.89 - Other hypotension (6) Hypothyroid Code(s): E03.9 - HYPOTHYROIDISM, UNSPECIFIED Qualifiers: Hypothyroidism type: unspecified Qualified Code(s): E03.9 - Hypothyroidism , unspecified (7) ICD (implantable cardioverter-defibrillator) in place Code(s): Z95.810 - PRESENCE OF AUTOMATIC (IMPLANTABLE) CARDIAC DEFIBRILLATOR (8) Open wound of foot Code(s): S91.309A - UNSPECIFIED OPEN WOUND, UNSPECIFIED FOOT, INITIAL ENCOUNTER Qualifiers: Encounter type: initial encounter Laterality: right Qualified Code(s): S91.301A - Unspecified open wound, right foot, initial encounter plan continue abx all cx reports note patient to continue with zosyn for 4 more weeks wound care
--- NOTE | 2017-08-22 16:48 | PN ---
Progress Note (short form) - Note Progress Note: Patient seen sitting up today. no pain. vss. Tmax 98.6 +clean dry dressing, -breakthrough bleeding, wbc=7.5, sqhz1d=3.9 normal post op pvd Apparently patient going to [facility] for rehab for 4 weeks. Follow up in wound care. Step daughter and friend present named Mrs. Olivier. Will follow till dc. Explained HBO , wound care, IVABX. HBO consult ordered.
--- NOTE | 2017-08-22 17:48 | PN ---
Physical Exam: SUBJECTIVE: Patient seen and examined. After HD ate lunch and became nauseous and vomited his food. Feeling better now. OBJECTIVE: Vital Signs Period Temp Pulse Resp BP Sys/Yoon Pulse Ox Last 24 Hr 97.9 F-98.6 F 65-68 18-20 87-127/43-67 GENERAL: The patient is awake, alert, and fully oriented, in no acute distress. LUNGS: Breath sounds equal, clear to auscultation bilaterally, no wheezes, no crackles, no accessory muscle use. HEART: Regular rate and rhythm, S1, S2 without murmur, rub or gallop. ABDOMEN: Soft, nontender, nondistended, normoactive bowel sounds EXTREMITIES: right foot wrapped, dressing c/d/i; three toes exposed, warm but no sensation NEUROLOGICAL: Cranial nerves II through XII grossly intact. Normal speech. Laboratory Results - last 24 hr 08/22/17 06:58 POC Glucometer 96 Active Medications Generic Name Dose Route Start Last Admin Trade Name Freq PRN Reason Stop Dose Admin Acetaminophen 650 mg 08/19/17 15:44 08/22/17 02:10 Tylenol - PO 650 mg Q6H PRN Administration FEVER Albumin Human 12.5 gm 08/19/17 16:00 Albumin Human 25% IVPB Q30M [facility] Clopidogrel Bisulfate 75 mg 08/20/17 10:00 08/22/17 14:34 Plavix - PO 75 mg DAILY [facility] Administration Docusate Sodium 100 mg 08/19/17 22:00 08/22/17 14:00 Colace - PO Not Given TID [facility] Guaifenesin 5 ml 08/19/17 15:44 Diabetic Tussin Dm - PO Q6H PRN COUGH Piperacillin Sod/Tazobactam 50 mls @ 100 mls/hr 08/19/17 18:00 08/22/17 10:26 Sod 2.25 gm/ Dextrose IVPB Not Given Q8H-IV [facility] Protocol Sodium Chloride 250 mls @ 3,000 mls/hr 08/22/17 14:59 Normal Saline - IV 08/22/17 22:00 PRN PRN Hypotension during Dialysis Levothyroxine Sodium 75 mcg 08/20/17 07:00 08/22/17 06:15 Synthroid - PO 75 mcg DAILY@0700 [facility] Administration Melatonin 5 mg 08/19/17 15:44 08/22/17 01:57 Melatonin PO 5 mg HS PRN Administration INSOMNIA Metoprolol Succinate 12.5 mg 08/20/17 10:00 08/22/17 10:26 Toprol Xl - PO Not Given DAILY [facility] Sacubitril/Valsartan 1 tab 08/19/17 22:00 08/22/17 10:25 Entresto 24 Mg-26 Mg Tablet PO Not Given BID [facility] Senna 2 tab 08/19/17 22:00 08/21/17 21:51 Senna - PO 2 tab HS [facility] Administration Warfarin Sodium 2 mg 08/19/17 18:00 08/21/17 18:48 Coumadin - PO 2 mg DAILY@1800 [facility] Administration ASSESSMENT/PLAN 72 year-old male with a PMH significant for HTN, CAD s/p MD, afib on coumadin, heart failure s/p PPM/AICD, h/o PE, NIDDM with neuropathy, h/o PE, ESRD on HD ( ,,Mon), hypothyroidism, and colon cancer. Admitted for sepsis secondary to cellulitis of right 4th and 5th toes, now confirmed osteo. 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 Cope PAD s/p revascularization right posterior tibial artery with athrectomy and angioplasty 08/15 Systolic heart failure, chronic --08/11 Echo: LV severely decreased function; RV moderately decreased function ; mod LAE, mild MR, TR, AR, moderate pericardial effusion not in tamponade --continue Entresto, Toprol XL --not on diuretics CAD s/p MD --continue Toprol XL, Plavix Atrial fibrillation --INR therapeutic on coumadin --rate well-controlled, continue Toprol XL NIDDM --diet controlled ESRD on HD (,,) Hypertension --periods of hypotension; stop metoprolol Hypothyroidism --continue levothyroxine DVT prophylaxis: on coumadin Dispo: needs PICC and SNF placement. Full code. Visit type - Emergency Visit Emergency Visit: Yes ED Registration Date: 08/10/17 Care time: The patient presented to the Emergency Department on the above date and was hospitalized for further evaluation of their emergent condition. - New Patient This patient is new to me today: No - Critical Care Critical Care patient: No
[2017-08-22] MEDS: WARFARIN NA 2 MG TABLET (UD) PO SCH (18:29)
[2017-08-22] MEDS ORDERED: PROCHLORPERAZINE MALEATE 5 MG TABLET PO ONE (18:30)
[2017-08-22] MEDS: SENNOSIDES 8.6MG TABLET (FP) PO SCH (22:36)
[2017-08-23] MEDS ORDERED: DEXTROSE 5%-WATER - 50 ML IVPB ONE ×2 (01:13→10:23)
[2017-08-23] MEDS ORDERED: PIPERACILLIN/TAZOBACTAM 2.25 GM VIAL IVPB ONE ×3 (01:13→19:03)
[2017-08-23] MEDS: PIPERACILLIN/TAZOB 2.25 GM 2.25 GM in DEXTROSE 5%-WATER - 50 ML IVPB SCH ×3 (01:32→19:14)
[2017-08-23] MEDS: MELATONIN 5 MG TABLETS PO PRN (02:00)
[2017-08-23] MEDS: LEVOTHYROXINE NA 75 MCG TABLET (FP) PO SCH (06:11)
[2017-08-23] MEDS: DOCUSATE SODIUM 100 MG CAPSULE (FP) PO SCH ×3 (06:11→22:04)
[2017-08-23] MEDS ORDERED: PT OWN MED DRAWER 7, Y5N ONE ×2 (10:22→21:55)
[2017-08-23] MEDS: CLOPIDOGREL BISULFATE 75 MG TABLET (FP) PO SCH (10:42)
[2017-08-23] MEDS: SACUBITRIL/VALSARTAN 24 MG-26 MG TABLET PO SCH ×2 (10:44→22:15)
[2017-08-23] MEDS ORDERED: oxyCODONE HCL 5 MG TABLET PO PRN ×2 (11:26→11:27)
[2017-08-23] MEDS ORDERED: ACETAMINOPHEN 325 MG TABLET (FP) PO PRN (11:28)
[2017-08-23] MEDS ORDERED: LORazepam 0.5 MG TABLET PO PRN (11:29)
--- NOTE | 2017-08-23 12:53 | PN ---
Physical Exam: SUBJECTIVE: Patient seen and examined OBJECTIVE: Vital Signs Period Temp Pulse Resp BP Sys/Yoon Pulse Ox Last 24 Hr 98.2 F-99.4 F 65-68 18-20 95-118/47-66 GENERAL: The patient is awake, alert, and fully oriented, in no acute distress. LUNGS: Breath sounds equal, clear to auscultation bilaterally, no wheezes, no crackles, no accessory muscle use. HEART: Regular rate and rhythm, S1, S2 without murmur, rub or gallop. ABDOMEN: Soft, nontender, nondistended, normoactive bowel sounds EXTREMITIES: right foot surgical wound exposed, edges well-approximated, dry, no erythema, no warmth NEUROLOGICAL: Cranial nerves II through XII grossly intact. Normal speech. Active Medications Generic Name Dose Route Start Last Admin Trade Name Freq PRN Reason Stop Dose Admin Acetaminophen 650 mg 08/19/17 15:44 08/22/17 02:10 Tylenol - PO 650 mg Q6H PRN Administration FEVER Acetaminophen 650 mg 08/23/17 11:28 Tylenol - PO Q6H PRN PAIN LEVEL 1 - 3 Albumin Human 12.5 gm 08/19/17 16:00 Albumin Human 25% IVPB Q30M [facility] Clopidogrel Bisulfate 75 mg 08/20/17 10:00 08/23/17 10:42 Plavix - PO 75 mg DAILY [facility] Administration Docusate Sodium 100 mg 08/19/17 22:00 08/23/17 06:11 Colace - PO 100 mg TID [facility] Administration Guaifenesin 5 ml 08/19/17 15:44 Diabetic Tussin Dm - PO Q6H PRN COUGH Piperacillin Sod/Tazobactam 50 mls @ 100 mls/hr 08/19/17 18:00 08/23/17 10:42 Sod 2.25 gm/ Dextrose IVPB 100 mls/hr Q8H-IV [facility] Administration Protocol Sodium Chloride 250 mls @ 3,000 mls/hr 08/22/17 14:59 Normal Saline - IV 08/22/17 22:00 PRN PRN Hypotension during Dialysis Levothyroxine Sodium 75 mcg 08/20/17 07:00 08/23/17 06:11 Synthroid - PO 75 mcg DAILY@0700 [facility] Administration Lorazepam 0.25 mg 08/23/17 11:29 Ativan - PO BID PRN ANXIETY Melatonin 5 mg 08/19/17 15:44 08/23/17 02:00 Melatonin PO 5 mg HS PRN Administration INSOMNIA Oxycodone HCl 5 mg 08/23/17 11:26 Roxicodone - PO Q6H PRN PAIN LEVEL 4 - 6 Oxycodone HCl 10 mg 08/23/17 11:27 08/23/17 12:04 Roxicodone - PO 10 mg Q6H PRN Administration PAIN LEVEL 7 - 10 Sacubitril/Valsartan 1 tab 08/19/17 22:00 08/23/17 10:44 Entresto 24 Mg-26 Mg Tablet PO Not Given BID [facility] Senna 2 tab 08/19/17 22:00 08/22/17 22:36 Senna - PO 2 tab HS [facility] Administration Warfarin Sodium 2 mg 08/19/17 18:00 08/22/17 18:29 Coumadin - PO 2 mg DAILY@1800 [facility] Administration ASSESSMENT/PLAN 72 year-old male with a PMH significant for HTN, CAD s/p [place], afib on coumadin, heart failure s/p PPM/AICD, h/o PE, NIDDM with neuropathy, h/o PE, ESRD on HD ( ,,Mon), hypothyroidism, and colon cancer. Admitted for sepsis secondary to cellulitis of right 4th and 5th toes, now confirmed osteo. 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 Cope PAD s/p revascularization right posterior tibial artery with athrectomy and angioplasty 08/15 Systolic heart failure, chronic --08/11 Echo: LV severely decreased function; RV moderately decreased function ; mod LAE, mild MR, TR, AR, moderate pericardial effusion not in tamponade --continue Entresto, Toprol XL --not on diuretics CAD s/p [place] --continue Toprol XL, Plavix Atrial fibrillation --INR therapeutic on coumadin --rate well-controlled; stopping metoprolol due to hypotension, monitor rate closely NIDDM --diet controlled ESRD on HD (,,) Hypertension --periods of hypotension; stop metoprolol Hypothyroidism --continue levothyroxine DVT prophylaxis: on coumadin Dispo: needs PICC and SNF placement. Full code. Visit type - Emergency Visit Emergency Visit: Yes ED Registration Date: 08/10/17 Care time: The patient presented to the Emergency Department on the above date and was hospitalized for further evaluation of their emergent condition. - New Patient This patient is new to me today: No - Critical Care Critical Care patient: No
--- NOTE | 2017-08-23 13:25 | PN ---
Progress Note, Physician History of Present Illness: stable no new issues - Current Medication List Current Medications: Active Medications Acetaminophen (Tylenol -) 650 mg PO Q6H PRN PRN Reason: FEVER Last Admin: 08/22/17 02:10 Dose: 650 mg Acetaminophen (Tylenol -) 650 mg PO Q6H PRN PRN Reason: PAIN LEVEL 1 - 3 Albumin Human (Albumin Human 25%) 12.5 gm IVPB Q30M [facility] Clopidogrel Bisulfate (Plavix -) 75 mg PO DAILY [facility] Last Admin: 08/23/17 10:42 Dose: 75 mg Docusate Sodium (Colace -) 100 mg PO TID [facility] Last Admin: 08/23/17 06:11 Dose: 100 mg Guaifenesin (Diabetic Tussin Dm -) 5 ml PO Q6H PRN PRN Reason: COUGH Piperacillin Sod/Tazobactam (Sod 2.25 gm/ Dextrose) 50 mls @ 100 mls/hr IVPB Q8H-IV [facility]; Protocol Last Admin: 08/23/17 10:42 Dose: 100 mls/hr Sodium Chloride (Normal Saline -) 250 mls @ 3,000 mls/hr IV PRN PRN PRN Reason: Hypotension during Dialysis Stop: 08/22/17 22:00 Levothyroxine Sodium (Synthroid -) 75 mcg PO DAILY@0700 [facility] Last Admin: 08/23/17 06:11 Dose: 75 mcg Lorazepam (Ativan -) 0.25 mg PO BID PRN PRN Reason: ANXIETY Melatonin (Melatonin) 5 mg PO HS PRN PRN Reason: INSOMNIA Last Admin: 08/23/17 02:00 Dose: 5 mg Oxycodone HCl (Roxicodone -) 5 mg PO Q6H PRN PRN Reason: PAIN LEVEL 4 - 6 Oxycodone HCl (Roxicodone -) 10 mg PO Q6H PRN PRN Reason: PAIN LEVEL 7 - 10 Last Admin: 08/23/17 12:04 Dose: 10 mg Sacubitril/Valsartan (Entresto 24 Mg-26 Mg Tablet) 1 tab PO BID [facility] Last Admin: 08/23/17 10:44 Dose: Not Given Senna (Senna -) 2 tab PO HS [facility] Last Admin: 08/22/17 22:36 Dose: 2 tab Warfarin Sodium (Coumadin -) 2 mg PO DAILY@1800 [facility] Last Admin: 08/22/17 18:29 Dose: 2 mg - Objective Vital Signs: Vital Signs Temperature 99.4 F 08/23/17 06:00 Pulse Rate 67 08/23/17 06:00 Respiratory Rate 18 08/23/17 06:00 Blood Pressure 118/65 08/23/17 06:00 O2 Sat by Pulse Oximetry (%) 95 08/21/17 09:00 Constitutional: Yes: No Distress, Calm Cardiovascular: Yes: Regular Rate and Rhythm Respiratory: Yes: Regular, CTA Bilaterally Gastrointestinal: Yes: Normal Bowel Sounds, Soft Musculoskeletal: Yes: WNL Extremities: Yes: Other Wound/Incision: Yes: Dressing Dry and Intact Neurological: Yes: Alert, Oriented Psychiatric: Yes: Alert, Oriented Labs: CBC, BMP 08/21/17 06:40 08/21/17 06:40 INR, PTT INR 2.22 (0.82-1.09) H 08/21/17 06:40 Assessment/Plan patient coming in a type of sepsis picture i think his invection is coming from the wound itself he has multiple other issues Problem List - Problems (1) Atrial fibrillation Code(s): I48.91 - UNSPECIFIED ATRIAL FIBRILLATION Qualifiers: Atrial fibrillation type: unspecified Qualified Code(s): I48.91 - Unspecified atrial fibrillation (2) Cardiomyopathy Code(s): I42.9 - CARDIOMYOPATHY, UNSPECIFIED Qualifiers: Cardiomyopathy type: unspecified Qualified Code(s): I42.9 - Cardiomyopathy , unspecified (3) Cellulitis of right lower extremity Code(s): L03.115 - CELLULITIS OF RIGHT LOWER LIMB (4) ESRD (end stage renal disease) Code(s): N18.6 - END STAGE RENAL DISEASE (5) Hypotension Code(s): I95.9 - HYPOTENSION, UNSPECIFIED Qualifiers: Hypotension type: other hypotension type Qualified Code(s): I95.89 - Other hypotension (6) Hypothyroid Code(s): E03.9 - HYPOTHYROIDISM, UNSPECIFIED Qualifiers: Hypothyroidism type: unspecified Qualified Code(s): E03.9 - Hypothyroidism , unspecified (7) ICD (implantable cardioverter-defibrillator) in place Code(s): Z95.810 - PRESENCE OF AUTOMATIC (IMPLANTABLE) CARDIAC DEFIBRILLATOR (8) Open wound of foot Code(s): S91.309A - UNSPECIFIED OPEN WOUND, UNSPECIFIED FOOT, INITIAL ENCOUNTER Qualifiers: Encounter type: initial encounter Laterality: right Qualified Code(s): S91.301A - Unspecified open wound, right foot, initial encounter plan continue abx all cx reports note patient to continue with zosyn for 4 more weeks wound care
[2017-08-23] MEDS ORDERED: SODIUM CHLORIDE 250 ML IV PRN (13:45)
--- NOTE | 2017-08-23 13:45 | PN ---
Progress Note, Physician History of Present Illness: Pt seen and examined at bedside. He is awake and alert. He decided to go for rehab for antibiotics. - Current Medication List Current Medications: Active Medications Acetaminophen (Tylenol -) 650 mg PO Q6H PRN PRN Reason: FEVER Last Admin: 08/22/17 02:10 Dose: 650 mg Acetaminophen (Tylenol -) 650 mg PO Q6H PRN PRN Reason: PAIN LEVEL 1 - 3 Albumin Human (Albumin Human 25%) 12.5 gm IVPB Q30M [facility] Clopidogrel Bisulfate (Plavix -) 75 mg PO DAILY [facility] Last Admin: 08/23/17 10:42 Dose: 75 mg Docusate Sodium (Colace -) 100 mg PO TID [facility] Last Admin: 08/23/17 06:11 Dose: 100 mg Guaifenesin (Diabetic Tussin Dm -) 5 ml PO Q6H PRN PRN Reason: COUGH Piperacillin Sod/Tazobactam (Sod 2.25 gm/ Dextrose) 50 mls @ 100 mls/hr IVPB Q8H-IV [facility]; Protocol Last Admin: 08/23/17 10:42 Dose: 100 mls/hr Sodium Chloride (Normal Saline -) 250 mls @ 3,000 mls/hr IV PRN PRN PRN Reason: Hypotension during Dialysis Stop: 08/22/17 22:00 Levothyroxine Sodium (Synthroid -) 75 mcg PO DAILY@0700 [facility] Last Admin: 08/23/17 06:11 Dose: 75 mcg Lorazepam (Ativan -) 0.25 mg PO BID PRN PRN Reason: ANXIETY Melatonin (Melatonin) 5 mg PO HS PRN PRN Reason: INSOMNIA Last Admin: 08/23/17 02:00 Dose: 5 mg Oxycodone HCl (Roxicodone -) 5 mg PO Q6H PRN PRN Reason: PAIN LEVEL 4 - 6 Oxycodone HCl (Roxicodone -) 10 mg PO Q6H PRN PRN Reason: PAIN LEVEL 7 - 10 Last Admin: 08/23/17 12:04 Dose: 10 mg Sacubitril/Valsartan (Entresto 24 Mg-26 Mg Tablet) 1 tab PO BID [facility] Last Admin: 08/23/17 10:44 Dose: Not Given Senna (Senna -) 2 tab PO HS [facility] Last Admin: 08/22/17 22:36 Dose: 2 tab Warfarin Sodium (Coumadin -) 2 mg PO DAILY@1800 [facility] Last Admin: 08/22/17 18:29 Dose: 2 mg - Objective Vital Signs: Vital Signs Temperature 99.4 F 08/23/17 06:00 Pulse Rate 67 08/23/17 06:00 Respiratory Rate 18 08/23/17 06:00 Blood Pressure 118/65 08/23/17 06:00 O2 Sat by Pulse Oximetry (%) 95 08/21/17 09:00 Constitutional: Yes: Calm Eyes: Yes: Conjunctiva Clear HENT: Yes: Atraumatic Cardiovascular: Yes: S2 Respiratory: Yes: CTA Bilaterally Gastrointestinal: Yes: WNL Genitourinary: Yes: WNL Edema: No Wound/Incision: Yes: Dressing Dry and Intact Neurological: Yes: Oriented Psychiatric: Yes: Oriented Labs: CBC, BMP 08/21/17 06:40 08/21/17 06:40 INR, PTT INR 2.22 (0.82-1.09) H 08/21/17 06:40 Problem List - Problems (1) ESRD (end stage renal disease) Code(s): N18.6 - END STAGE RENAL DISEASE (2) Pericardial effusion Code(s): I31.3 - PERICARDIAL EFFUSION (NONINFLAMMATORY) (3) Hypotension Code(s): I95.9 - HYPOTENSION, UNSPECIFIED Qualifiers: Hypotension type: other hypotension type Qualified Code(s): I95.89 - Other hypotension (4) Hypothyroid Code(s): E03.9 - HYPOTHYROIDISM, UNSPECIFIED Qualifiers: Hypothyroidism type: unspecified Qualified Code(s): E03.9 - Hypothyroidism , unspecified (5) Atrial fibrillation Code(s): I48.91 - UNSPECIFIED ATRIAL FIBRILLATION Qualifiers: Atrial fibrillation type: unspecified Qualified Code(s): I48.91 - Unspecified atrial fibrillation (6) Open wound of foot Code(s): S91.309A - UNSPECIFIED OPEN WOUND, UNSPECIFIED FOOT, INITIAL ENCOUNTER Qualifiers: Encounter type: subsequent encounter Laterality: right Qualified Code(s) : S91.301D - Unspecified open wound, right foot, subsequent encounter Assessment/Plan Current Medications Generic Name Dose Route Start Last Admin Trade Name Freq PRN Reason Stop Dose Admin Acetaminophen 650 mg 08/19/17 15:44 08/22/17 02:10 Tylenol - PO 650 mg Q6H PRN Administration FEVER Acetaminophen 650 mg 08/23/17 11:28 Tylenol - PO Q6H PRN PAIN LEVEL 1 - 3 Albumin Human 12.5 gm 08/19/17 16:00 Albumin Human 25% IVPB Q30M [facility] Clopidogrel Bisulfate 75 mg 08/20/17 10:00 08/23/17 10:42 Plavix - PO 75 mg DAILY [facility] Administration Docusate Sodium 100 mg 08/19/17 22:00 08/23/17 06:11 Colace - PO 100 mg TID [facility] Administration Guaifenesin 5 ml 08/19/17 15:44 Diabetic Tussin Dm - PO Q6H PRN COUGH Piperacillin Sod/Tazobactam 50 mls @ 100 mls/hr 08/19/17 18:00 08/23/17 10:42 Sod 2.25 gm/ Dextrose IVPB 100 mls/hr Q8H-IV [facility] Administration Protocol Sodium Chloride 250 mls @ 3,000 mls/hr 08/22/17 14:59 Normal Saline - IV 08/22/17 22:00 PRN PRN Hypotension during Dialysis Levothyroxine Sodium 75 mcg 08/20/17 07:00 08/23/17 06:11 Synthroid - PO 75 mcg DAILY@0700 [facility] Administration Lorazepam 0.25 mg 08/23/17 11:29 Ativan - PO BID PRN ANXIETY Melatonin 5 mg 08/19/17 15:44 08/23/17 02:00 Melatonin PO 5 mg HS PRN Administration INSOMNIA Oxycodone HCl 5 mg 08/23/17 11:26 Roxicodone - PO Q6H PRN PAIN LEVEL 4 - 6 Oxycodone HCl 10 mg 08/23/17 11:27 08/23/17 12:04 Roxicodone - PO 10 mg Q6H PRN Administration PAIN LEVEL 7 - 10 Sacubitril/Valsartan 1 tab 08/19/17 22:00 08/23/17 10:44 Entresto 24 Mg-26 Mg Tablet PO Not Given BID [facility] Senna 2 tab 08/19/17 22:00 08/22/17 22:36 Senna - PO 2 tab HS [facility] Administration Warfarin Sodium 2 mg 08/19/17 18:00 08/22/17 18:29 Coumadin - PO 2 mg DAILY@1800 [facility] Administration Impression 1. ESRD 2. pericardial effusion 3. pneumopericardium 4. hypothyroidism 5. a-fib 6. hypotension 7. hx of colon cancer 8. CHF 9. DM 10. hx of PE 11. CAD Plan - HD in am if not discharged - cont abx per ID - vascular follow up - cont wound care - will follow Dr Conklin
[2017-08-23] MEDS: VITAMIN B COMP W-C 1 EA TABLET PO SCH (15:22)
[2017-08-23] MEDS ORDERED: PICC LINE 8 ML FLUSH PROTOCOL IVPUSH PRN (15:55)
[2017-08-23 16:20] LABS: INR 1.72 (0.82-1.09); PROTHROMBIN TIME (PATIENT) 19.4 SEC (9.7-13.0)
--- NOTE | 2017-08-23 16:50 | PN ---
Progress Note, Physician History of Present Illness: He denies chest pain reports at baseline dyspnea, denies palpitations, near or true syncope, orthopnea, PND or LE edema. Foot pain adequately controlled, able to weight bear. - Current Medication List Current Medications: Active Medications Acetaminophen (Tylenol -) 650 mg PO Q6H PRN PRN Reason: FEVER Last Admin: 08/22/17 02:10 Dose: 650 mg Acetaminophen (Tylenol -) 650 mg PO Q6H PRN PRN Reason: PAIN LEVEL 1 - 3 Albumin Human (Albumin Human 25%) 12.5 gm IVPB Q30M [facility] Clopidogrel Bisulfate (Plavix -) 75 mg PO DAILY [facility] Last Admin: 08/23/17 10:42 Dose: 75 mg Docusate Sodium (Colace -) 100 mg PO TID [facility] Last Admin: 08/23/17 15:22 Dose: 100 mg Guaifenesin (Diabetic Tussin Dm -) 5 ml PO Q6H PRN PRN Reason: COUGH IV Flush (Picc Line Flush) 8 ml IVPUSH PRN PRN PRN Reason: Protocol Piperacillin Sod/Tazobactam (Sod 2.25 gm/ Dextrose) 50 mls @ 100 mls/hr IVPB Q8H-IV [facility]; Protocol Last Admin: 08/23/17 10:42 Dose: 100 mls/hr Sodium Chloride (Normal Saline -) 250 mls @ 3,000 mls/hr IV PRN PRN PRN Reason: Hypotension during Dialysis Stop: 08/22/17 22:00 Sodium Chloride (Normal Saline -) 250 mls @ 3,000 mls/hr IV PRN PRN PRN Reason: Hypotension during Dialysis Stop: 08/24/17 13:46 Levothyroxine Sodium (Synthroid -) 75 mcg PO DAILY@0700 [facility] Last Admin: 08/23/17 06:11 Dose: 75 mcg Lorazepam (Ativan -) 0.25 mg PO BID PRN PRN Reason: ANXIETY Melatonin (Melatonin) 5 mg PO HS PRN PRN Reason: INSOMNIA Last Admin: 08/23/17 02:00 Dose: 5 mg Multivit/Ca Carb/B Cmplx/FA/Prenat (Nephro-Fer -) 1 tablet PO DAILY [facility] Last Admin: 08/23/17 15:22 Dose: 1 tablet Oxycodone HCl (Roxicodone -) 5 mg PO Q6H PRN PRN Reason: PAIN LEVEL 4 - 6 Oxycodone HCl (Roxicodone -) 10 mg PO Q6H PRN PRN Reason: PAIN LEVEL 7 - 10 Last Admin: 08/23/17 12:04 Dose: 10 mg Sacubitril/Valsartan (Entresto 24 Mg-26 Mg Tablet) 1 tab PO BID [facility] Last Admin: 08/23/17 10:44 Dose: Not Given Senna (Senna -) 2 tab PO HS [facility] Last Admin: 08/22/17 22:36 Dose: 2 tab Warfarin Sodium (Coumadin -) 2 mg PO DAILY@1800 [facility] Last Admin: 08/22/17 18:29 Dose: 2 mg - Objective Vital Signs: Vital Signs Temperature 99.4 F 08/23/17 06:00 Pulse Rate 67 08/23/17 06:00 Respiratory Rate 18 08/23/17 06:00 Blood Pressure 118/65 08/23/17 06:00 O2 Sat by Pulse Oximetry (%) 95 08/21/17 09:00 Constitutional: Yes: No Distress, Calm, Thin Neck: Yes: Supple Cardiovascular: Yes: Regular Rate and Rhythm Respiratory: Yes: Regular, CTA Bilaterally Gastrointestinal: Yes: Normal Bowel Sounds, Soft Extremities: Yes: Amputation (Right toe) Edema: No Wound/Incision: Yes: Dressing Dry and Intact Labs: CBC, BMP 08/21/17 06:40 08/21/17 06:40 INR, PTT INR 2.22 (0.82-1.09) H 08/21/17 06:40 Problem List - Problems (1) Cardiomyopathy Code(s): I42.9 - CARDIOMYOPATHY, UNSPECIFIED Qualifiers: Cardiomyopathy type: unspecified Qualified Code(s): I42.9 - Cardiomyopathy , unspecified (2) ICD (implantable cardioverter-defibrillator) in place Code(s): Z95.810 - PRESENCE OF AUTOMATIC (IMPLANTABLE) CARDIAC DEFIBRILLATOR (3) Atrial fibrillation Code(s): I48.91 - UNSPECIFIED ATRIAL FIBRILLATION Qualifiers: Atrial fibrillation type: unspecified Qualified Code(s): I48.91 - Unspecified atrial fibrillation (4) Cellulitis of right lower extremity Code(s): L03.115 - CELLULITIS OF RIGHT LOWER LIMB (5) ESRD (end stage renal disease) Code(s): N18.6 - END STAGE RENAL DISEASE (6) Hypotension Code(s): I95.9 - HYPOTENSION, UNSPECIFIED Qualifiers: Hypotension type: other hypotension type Qualified Code(s): I95.89 - Other hypotension (7) Hypothyroid Code(s): E03.9 - HYPOTHYROIDISM, UNSPECIFIED Qualifiers: Hypothyroidism type: unspecified Qualified Code(s): E03.9 - Hypothyroidism , unspecified (8) Pericardial effusion Code(s): I31.3 - PERICARDIAL EFFUSION (NONINFLAMMATORY) (9) Amputated toe of right foot Code(s): Z89.421 - ACQUIRED ABSENCE OF OTHER RIGHT TOE(S) (10) Status post peripheral artery angioplasty Code(s): Z98.62 - PERIPHERAL VASCULAR ANGIOPLASTY STATUS (11) Diabetic foot ulcer Code(s): E11.621 - TYPE 2 DIABETES MELLITUS WITH FOOT ULCER; L97.509 - NON- PRESSURE CHRONIC ULCER OTH PRT UNSP FOOT W UNSP SEVERITY (12) Open wound of foot Code(s): S91.309A - UNSPECIFIED OPEN WOUND, UNSPECIFIED FOOT, INITIAL ENCOUNTER Qualifiers: Encounter type: subsequent encounter Laterality: right Qualified Code(s) : S91.301D - Unspecified open wound, right foot, subsequent encounter Assessment/Plan 08/11/2017 Echo: Mildly dilated with severly decreased LV fxn, mild-mod dilated with mod decreased RV fxn, mod LAE, mild MR, TR, AR, moderate pericardial effusion not in tamponade 01/19/2016 Echo: Mild LV dilatation, mild cLVH, LVEF 15-20%, diastolic dysfunction, severe LAE, mod NEGRO, mild AR, MR, TR, OK RVSP 52 mmHg, small pericardial effusion 11/11/2016 Lexiscan: Large GA involving apex, inferior wall, inferolateral small area mild periinfarct ischemia mid anterior wall, dilated severly decreased LVEF 26, RV dilated 1. Ischemic dilated cardiomyopathy s/p ICD 2. ESRD on HD 3. Pericardial effusion 4. Hypothyroidism 5. Persistent AF [id number] score of 3-4 on Coumadin with subtherapeutic INR 6. 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 History of colon cancer 8. DM 9. History of PE 10. CAD s/p GA, post demand ischemia 11. DM PLAN: 1. Empiric antibiotic course and wound care per ID, HBO therapy as outpatient 2. HD as hemodynamics tolerate 3. Continue Coumadin dose per INR and Plavix 75 qd with caution given pericardial effusion 4. Continue Toprol 12.5 qd, Entresto 24/26 bid as hemodynamics tolerate 5. Patient saw Dr. Jayjay Karimi at [facility] 06/23/2017 pre-renal transplant eval, outpt records reviewed, usually sees Dr. Ghassan Durant at [facility] 6. PT->SNF
--- NOTE | 2017-08-23 17:23 | OP ---
DATE OF OPERATION: 08/15/2017 SURGEON: Olvin Cope MD PROCEDURE: Revascularization, right posterior tibial artery, with atherectomy and angioplasty; retrograde peel artery cannulation with ultrasound guidance. PREOPERATIVE DIAGNOSIS: Gangrene, right 5th toe. POSTOPERATIVE DIAGNOSIS: Gangrene, right 5th toe. ANESTHESIA: Fractional. ANESTHESIOLOGIST: Levi Walden MD ANGIOGRAPHIC FINDINGS: All vessels in the right lower extremity were calcified. The common, deep, and superficial femoral arteries were patent. The popliteal artery was patent. There was occlusion of the anterior tibial artery distal to the origin. The peroneal artery was occluded throughout the calf. The posterior tibial artery was occluded proximally and reconstituted in the distal calf with runoff to 2 plantar arteries in the foot. A small dorsalis pedis artery reconstituted in the foot. OPERATIVE PROCEDURE: Following routine patient identification, with side and site verification, intravenous sedation was established. The right groin was prepped with ChloraPrep. Timeout was performed. Using realtime duplex imaging, the right femoral artery was identified. Lidocaine 1% was infiltrated in the skin over the artery and the artery was cannulated in an antegrade fashion using a micropuncture needle. A wire was passed distally into the superficial femoral artery and the needle exchanged for a 5-Polish catheter. Angiography through the catheter was used to document placement intraluminally into the superficial femoral artery. A 5-Polish sheath was then exchanged over a J wire. An angled wire and catheter were then advanced distally after obtaining angiogram of the femoral artery and popliteal artery. The catheter and wire were advanced into the popliteal artery and repeat angiography of the tibial vessels obtained with the above-noted findings. A stiff wire was advanced through the catheter and then the catheter and sheath were removed. A long 6-Polish sheath was advanced down to the level of the popliteal artery. The patient was systemically heparinized. Wire and catheter were then advanced into the tibioperoneal trunk. Attempts to cannulate the posterior tibial artery resulted in a cannulation of the vessel which appeared to go distally but could not be made to join to the distal posterior tibial, which reconstituted in the midcalf. After multiple attempts, decision was made to perform a retrograde cannulation. Therefore, the ankle was exposed and prepped with ChloraPrep. Using ultrasound guidance, the distal posterior tibial artery was identified. A micropuncture needle was then advanced under ultrasound guidance into the lumen of the vessel and a microwire advanced proximally. The needle was exchanged for a 5-Polish catheter, and then a 5-Polish sheath was placed into the vessel. Angiography through the catheter confirmed intraluminal placement, with occlusion of the proximal posterior tibial, as noted above. A 0.018-inch wire and catheter were then advanced proximally to the point of occlusion and, using roadmapping technique, were able to be advanced proximally until the posterior tibial origin was cannulated and the wire passed into the popliteal artery. The catheter was advanced over the wire, and confirmatory angiogram obtained. A ViperWire was then advanced through the catheter into the superficial femoral artery. Atherectomy with the CSI device was performed using a 1.25 mm solid crown at medium, low, and high speeds. Following atherectomy, angioplasty of the posterior tibial artery with 2.5 and 3.0 mm balloons was performed. Completion imaging revealed a patent posterior tibial artery with runoff to the level of the sheath, which was somewhat occlusive. The sheath was then removed and pressure applied until bleeding ceased. The femoral sheath was exchanged back to an 11 cm 6-Polish sheath and then the arteriotomy was sealed with a Mynx device without complication. The patient was transported to the recovery area in stable condition. Aislinn [id number]
[2017-08-23] MEDS: WARFARIN NA 2 MG TABLET (UD) PO SCH (19:14)
[2017-08-23] MEDS: SENNOSIDES 8.6MG TABLET (FP) PO SCH (22:04)
[2017-08-24] MEDS ORDERED: PIPERACILLIN/TAZOBACTAM 2.25 GM VIAL IVPB ONE ×2 (01:06→16:26)
[2017-08-24] MEDS ORDERED: DEXTROSE 5%-WATER - 50 ML IVPB ONE (01:07)
[2017-08-24] MEDS: PIPERACILLIN/TAZOB 2.25 GM 2.25 GM in DEXTROSE 5%-WATER - 50 ML IVPB SCH ×3 (01:31→16:32)
[2017-08-24] MEDS: MELATONIN 5 MG TABLETS PO PRN (01:36)
[2017-08-24] MEDS: DOCUSATE SODIUM 100 MG CAPSULE (FP) PO SCH ×2 (06:06→15:39)
[2017-08-24] MEDS: LEVOTHYROXINE NA 75 MCG TABLET (FP) PO SCH (06:07)
--- NOTE | 2017-08-24 09:34 | PN ---
Progress Note, Physician - Current Medication List Current Medications: Active Medications Acetaminophen (Tylenol -) 650 mg PO Q6H PRN PRN Reason: FEVER Last Admin: 08/22/17 02:10 Dose: 650 mg Acetaminophen (Tylenol -) 650 mg PO Q6H PRN PRN Reason: PAIN LEVEL 1 - 3 Albumin Human (Albumin Human 25%) 12.5 gm IVPB Q30M [facility] Clopidogrel Bisulfate (Plavix -) 75 mg PO DAILY [facility] Last Admin: 08/23/17 10:42 Dose: 75 mg Docusate Sodium (Colace -) 100 mg PO TID [facility] Last Admin: 08/24/17 06:06 Dose: 100 mg Guaifenesin (Diabetic Tussin Dm -) 5 ml PO Q6H PRN PRN Reason: COUGH IV Flush (Picc Line Flush) 8 ml IVPUSH PRN PRN PRN Reason: Protocol Piperacillin Sod/Tazobactam (Sod 2.25 gm/ Dextrose) 50 mls @ 100 mls/hr IVPB Q8H-IV [facility]; Protocol Last Admin: 08/24/17 01:31 Dose: 100 mls/hr Sodium Chloride (Normal Saline -) 250 mls @ 3,000 mls/hr IV PRN PRN PRN Reason: Hypotension during Dialysis Stop: 08/22/17 22:00 Sodium Chloride (Normal Saline -) 250 mls @ 3,000 mls/hr IV PRN PRN PRN Reason: Hypotension during Dialysis Stop: 08/24/17 13:46 Levothyroxine Sodium (Synthroid -) 75 mcg PO DAILY@0700 [facility] Last Admin: 08/24/17 06:07 Dose: 75 mcg Lorazepam (Ativan -) 0.25 mg PO BID PRN PRN Reason: ANXIETY Melatonin (Melatonin) 5 mg PO HS PRN PRN Reason: INSOMNIA Last Admin: 08/24/17 01:36 Dose: 5 mg Multivit/Ca Carb/B Cmplx/FA/Prenat (Nephro-Fer -) 1 tablet PO DAILY [facility] Last Admin: 08/23/17 15:22 Dose: 1 tablet Oxycodone HCl (Roxicodone -) 5 mg PO Q6H PRN PRN Reason: PAIN LEVEL 4 - 6 Oxycodone HCl (Roxicodone -) 10 mg PO Q6H PRN PRN Reason: PAIN LEVEL 7 - 10 Last Admin: 08/23/17 12:04 Dose: 10 mg Sacubitril/Valsartan (Entresto 24 Mg-26 Mg Tablet) 1 tab PO BID [facility] Last Admin: 08/23/17 22:15 Dose: Not Given Senna (Senna -) 2 tab PO HS [facility] Last Admin: 08/23/17 22:04 Dose: 2 tab Warfarin Sodium (Coumadin -) 2 mg PO DAILY@1800 [facility] Last Admin: 08/23/17 19:14 Dose: 2 mg - Objective Vital Signs: Vital Signs Temperature 98.9 F 08/24/17 08:45 Pulse Rate 67 08/24/17 08:45 Respiratory Rate 20 08/24/17 08:45 Blood Pressure 127/81 08/24/17 08:45 O2 Sat by Pulse Oximetry (%) 95 08/21/17 09:00 Labs: CBC, BMP 08/21/17 06:40 08/21/17 06:40 INR, PTT INR 1.72 (0.82-1.09) H 08/23/17 14:45
[2017-08-24 10:00] VITALS: TEMP 36.5
[2017-08-24] MEDS: SACUBITRIL/VALSARTAN 24 MG-26 MG TABLET PO SCH (10:22)
[2017-08-24] MEDS: CLOPIDOGREL BISULFATE 75 MG TABLET (FP) PO SCH (10:22)
[2017-08-24] MEDS: VITAMIN B COMP W-C 1 EA TABLET PO SCH (10:22)
[2017-08-24 11:46] LABS: HEMATOCRIT 34.1 % (35.4-49); HEMOGLOBIN 10.9 GM/dL (11.7-16.9); MCH 29.6 pg (25.7-33.7); MEAN CELL VOLUME 92.4 fl (80-96); MEAN PLT VOLUME 9.1 fl (7.5-11.1); PLATELET COUNT 215 K/MM3 (134-434); RBC 3.69 M/mm3 (4.00-5.60); RDW 19.8 % (11.9-15.9); WHITE BLOOD COUNT 5.8 K/mm3 (4.0-10.0)
[2017-08-24 12:01] LABS: ANION GAP 13 (8-16); BLOOD UREA NITROGEN 22 mg/dL (7-18); CALCIUM 8.6 mg/dL (8.5-10.1); CHLORIDE 96 mmol/L (98-107); CO2 28 mmol/L (21-32); GLUCOSE,RANDOM 119 mg/dL (74-106); SODIUM 137 mmol/L (136-145)
[2017-08-24 12:04] LABS: CREATININE 8.6 mg/dL (0.7-1.3)
--- NOTE | 2017-08-24 12:08 | PN ---
Progress Note, Physician History of Present Illness: He denies chest pain reports at baseline dyspnea, denies palpitations, near or true syncope, orthopnea, PND or LE edema. Foot pain adequately controlled, able to weight bear, seen in HD. - Current Medication List Current Medications: Active Medications Acetaminophen (Tylenol -) 650 mg PO Q6H PRN PRN Reason: FEVER Last Admin: 08/22/17 02:10 Dose: 650 mg Acetaminophen (Tylenol -) 650 mg PO Q6H PRN PRN Reason: PAIN LEVEL 1 - 3 Albumin Human (Albumin Human 25%) 12.5 gm IVPB Q30M [facility] Clopidogrel Bisulfate (Plavix -) 75 mg PO DAILY [facility] Last Admin: 08/23/17 10:42 Dose: 75 mg Docusate Sodium (Colace -) 100 mg PO TID [facility] Last Admin: 08/24/17 06:06 Dose: 100 mg Guaifenesin (Diabetic Tussin Dm -) 5 ml PO Q6H PRN PRN Reason: COUGH IV Flush (Picc Line Flush) 8 ml IVPUSH PRN PRN PRN Reason: Protocol Piperacillin Sod/Tazobactam (Sod 2.25 gm/ Dextrose) 50 mls @ 100 mls/hr IVPB Q8H-IV [facility]; Protocol Last Admin: 08/24/17 01:31 Dose: 100 mls/hr Sodium Chloride (Normal Saline -) 250 mls @ 3,000 mls/hr IV PRN PRN PRN Reason: Hypotension during Dialysis Stop: 08/22/17 22:00 Sodium Chloride (Normal Saline -) 250 mls @ 3,000 mls/hr IV PRN PRN PRN Reason: Hypotension during Dialysis Stop: 08/24/17 13:46 Levothyroxine Sodium (Synthroid -) 75 mcg PO DAILY@0700 [facility] Last Admin: 08/24/17 06:07 Dose: 75 mcg Lorazepam (Ativan -) 0.25 mg PO BID PRN PRN Reason: ANXIETY Melatonin (Melatonin) 5 mg PO HS PRN PRN Reason: INSOMNIA Last Admin: 08/24/17 01:36 Dose: 5 mg Multivit/Ca Carb/B Cmplx/FA/Prenat (Nephro-Fer -) 1 tablet PO DAILY [facility] Last Admin: 08/23/17 15:22 Dose: 1 tablet Oxycodone HCl (Roxicodone -) 5 mg PO Q6H PRN PRN Reason: PAIN LEVEL 4 - 6 Oxycodone HCl (Roxicodone -) 10 mg PO Q6H PRN PRN Reason: PAIN LEVEL 7 - 10 Last Admin: 08/23/17 12:04 Dose: 10 mg Sacubitril/Valsartan (Entresto 24 Mg-26 Mg Tablet) 1 tab PO BID [facility] Last Admin: 08/23/17 22:15 Dose: Not Given Senna (Senna -) 2 tab PO HS [facility] Last Admin: 08/23/17 22:04 Dose: 2 tab Warfarin Sodium (Coumadin -) 2 mg PO DAILY@1800 [facility] Last Admin: 08/23/17 19:14 Dose: 2 mg - Objective Vital Signs: Vital Signs Temperature 36.5 F L 08/24/17 09:00 Pulse Rate 68 08/24/17 11:30 Respiratory Rate 18 08/24/17 11:30 Blood Pressure 126/72 08/24/17 11:30 O2 Sat by Pulse Oximetry (%) 95 08/21/17 09:00 Constitutional: Yes: No Distress, Calm, Thin Neck: Yes: Supple Cardiovascular: Yes: Regular Rate and Rhythm Respiratory: Yes: Regular, CTA Bilaterally Gastrointestinal: Yes: Normal Bowel Sounds, Soft Edema: No Wound/Incision: Yes: Dressing Dry and Intact Labs: CBC, BMP 08/24/17 09:40 08/24/17 09:40 INR, PTT INR 1.72 (0.82-1.09) H 08/23/17 14:45 Problem List - Problems (1) Cardiomyopathy Code(s): I42.9 - CARDIOMYOPATHY, UNSPECIFIED Qualifiers: Cardiomyopathy type: unspecified Qualified Code(s): I42.9 - Cardiomyopathy , unspecified (2) ICD (implantable cardioverter-defibrillator) in place Code(s): Z95.810 - PRESENCE OF AUTOMATIC (IMPLANTABLE) CARDIAC DEFIBRILLATOR (3) Atrial fibrillation Code(s): I48.91 - UNSPECIFIED ATRIAL FIBRILLATION Qualifiers: Atrial fibrillation type: unspecified Qualified Code(s): I48.91 - Unspecified atrial fibrillation (4) Cellulitis of right lower extremity Code(s): L03.115 - CELLULITIS OF RIGHT LOWER LIMB (5) ESRD (end stage renal disease) Code(s): N18.6 - END STAGE RENAL DISEASE (6) Hypotension Code(s): I95.9 - HYPOTENSION, UNSPECIFIED Qualifiers: Hypotension type: other hypotension type Qualified Code(s): I95.89 - Other hypotension (7) Hypothyroid Code(s): E03.9 - HYPOTHYROIDISM, UNSPECIFIED Qualifiers: Hypothyroidism type: unspecified Qualified Code(s): E03.9 - Hypothyroidism , unspecified (8) Pericardial effusion Code(s): I31.3 - PERICARDIAL EFFUSION (NONINFLAMMATORY) (9) Amputated toe of right foot Code(s): Z89.421 - ACQUIRED ABSENCE OF OTHER RIGHT TOE(S) (10) Status post peripheral artery angioplasty Code(s): Z98.62 - PERIPHERAL VASCULAR ANGIOPLASTY STATUS (11) Diabetic foot ulcer Code(s): E11.621 - TYPE 2 DIABETES MELLITUS WITH FOOT ULCER; L97.509 - NON- PRESSURE CHRONIC ULCER OTH PRT UNSP FOOT W UNSP SEVERITY (12) Open wound of foot Code(s): S91.309A - UNSPECIFIED OPEN WOUND, UNSPECIFIED FOOT, INITIAL ENCOUNTER Qualifiers: Encounter type: subsequent encounter Laterality: right Qualified Code(s) : S91.301D - Unspecified open wound, right foot, subsequent encounter Assessment/Plan 08/11/2017 Echo: Mildly dilated with severly decreased LV fxn, mild-mod dilated with mod decreased RV fxn, mod LAE, mild MR, TR, AR, moderate pericardial effusion not in tamponade 01/19/2016 Echo: Mild LV dilatation, mild cLVH, LVEF 15-20%, diastolic dysfunction, severe LAE, mod NEGRO, mild AR, MR, TR, CO RVSP 52 mmHg, small pericardial effusion 11/11/2016 Lexiscan: Large NC involving apex, inferior wall, inferolateral small area mild periinfarct ischemia mid anterior wall, dilated severly decreased LVEF 26, RV dilated 1. Ischemic dilated cardiomyopathy s/p ICD 2. ESRD on HD 3. Pericardial effusion 4. Hypothyroidism 5. Persistent AF [id number] score of 3-4 on Coumadin with subtherapeutic INR 6. 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 History of colon cancer 8. DM 9. History of PE 10. CAD s/p NC, post demand ischemia 11. DM PLAN: 1. Complete empiric antibiotic course and wound care per ID, HBO therapy as outpatient 2. HD as hemodynamics tolerate 3. Continue Coumadin dose per INR and Plavix 75 qd with caution given pericardial effusion 4. Resume Toprol 12.5 qd, continue Entresto 24/26 bid as hemodynamics tolerate 5. Patient saw Dr. Jayjay Karimi at [facility] 06/23/2017 pre-renal transplant eval, outpt records reviewed, usually sees Dr. Ghassan Durant at [facility] 6. PT->SNF
[2017-08-24 13:54] VITALS: BP 115/67; PULSE 65
[2017-08-24] MEDS ORDERED: metoPROLOL SUCCINATE 25 MG TAB.SR.24H (FP) PO SCH (14:00)
--- NOTE | 2017-08-24 15:07 | PN ---
Progress Note, Physician History of Present Illness: Pt seen and examined at bedside. He is getting HD. - Current Medication List Current Medications: Active Medications Acetaminophen (Tylenol -) 650 mg PO Q6H PRN PRN Reason: FEVER Last Admin: 08/22/17 02:10 Dose: 650 mg Acetaminophen (Tylenol -) 650 mg PO Q6H PRN PRN Reason: PAIN LEVEL 1 - 3 Albumin Human (Albumin Human 25%) 12.5 gm IVPB Q30M [facility] Clopidogrel Bisulfate (Plavix -) 75 mg PO DAILY [facility] Last Admin: 08/24/17 10:22 Dose: Not Given Docusate Sodium (Colace -) 100 mg PO TID [facility] Last Admin: 08/24/17 06:06 Dose: 100 mg Guaifenesin (Diabetic Tussin Dm -) 5 ml PO Q6H PRN PRN Reason: COUGH IV Flush (Picc Line Flush) 8 ml IVPUSH PRN PRN PRN Reason: Protocol Piperacillin Sod/Tazobactam (Sod 2.25 gm/ Dextrose) 50 mls @ 100 mls/hr IVPB Q8H-IV [facility]; Protocol Last Admin: 08/24/17 10:00 Dose: Not Given Levothyroxine Sodium (Synthroid -) 75 mcg PO DAILY@0700 [facility] Last Admin: 08/24/17 06:07 Dose: 75 mcg Lorazepam (Ativan -) 0.25 mg PO BID PRN PRN Reason: ANXIETY Melatonin (Melatonin) 5 mg PO HS PRN PRN Reason: INSOMNIA Last Admin: 08/24/17 01:36 Dose: 5 mg Metoprolol Succinate (Toprol Xl -) 12.5 mg PO DAILY [facility] Multivit/Ca Carb/B Cmplx/FA/Prenat (Nephro-Fer -) 1 tablet PO DAILY [facility] Last Admin: 08/24/17 10:22 Dose: Not Given Oxycodone HCl (Roxicodone -) 5 mg PO Q6H PRN PRN Reason: PAIN LEVEL 4 - 6 Oxycodone HCl (Roxicodone -) 10 mg PO Q6H PRN PRN Reason: PAIN LEVEL 7 - 10 Last Admin: 08/23/17 12:04 Dose: 10 mg Sacubitril/Valsartan (Entresto 24 Mg-26 Mg Tablet) 1 tab PO BID [facility] Last Admin: 08/24/17 10:22 Dose: Not Given Senna (Senna -) 2 tab PO HS [facility] Last Admin: 08/23/17 22:04 Dose: 2 tab Warfarin Sodium (Coumadin -) 2 mg PO DAILY@1800 [facility] Last Admin: 08/23/17 19:14 Dose: 2 mg - Objective Vital Signs: Vital Signs Temperature 36.5 F L 08/24/17 09:00 Pulse Rate 65 08/24/17 13:53 Respiratory Rate 18 08/24/17 13:53 Blood Pressure 115/67 08/24/17 13:53 O2 Sat by Pulse Oximetry (%) 95 08/21/17 09:00 Constitutional: Yes: Calm Eyes: Yes: Conjunctiva Clear HENT: Yes: Atraumatic Neck: Yes: Supple Cardiovascular: Yes: S1, S2 Respiratory: Yes: CTA Bilaterally Gastrointestinal: Yes: Normal Bowel Sounds, Soft Genitourinary: Yes: WNL Edema: Yes Edema: LLE: Trace, RLE: Trace Wound/Incision: Yes: Dressing Dry and Intact Neurological: Yes: Oriented Psychiatric: Yes: Oriented Labs: CBC, BMP 08/24/17 09:40 08/24/17 09:40 INR, PTT INR 1.72 (0.82-1.09) H 08/23/17 14:45 Problem List - Problems (1) ESRD (end stage renal disease) Code(s): N18.6 - END STAGE RENAL DISEASE (2) Pericardial effusion Code(s): I31.3 - PERICARDIAL EFFUSION (NONINFLAMMATORY) (3) Hypotension Code(s): I95.9 - HYPOTENSION, UNSPECIFIED Qualifiers: Hypotension type: other hypotension type Qualified Code(s): I95.89 - Other hypotension (4) Hypothyroid Code(s): E03.9 - HYPOTHYROIDISM, UNSPECIFIED Qualifiers: Hypothyroidism type: unspecified Qualified Code(s): E03.9 - Hypothyroidism , unspecified (5) Atrial fibrillation Code(s): I48.91 - UNSPECIFIED ATRIAL FIBRILLATION Qualifiers: Atrial fibrillation type: unspecified Qualified Code(s): I48.91 - Unspecified atrial fibrillation (6) Open wound of foot Code(s): S91.309A - UNSPECIFIED OPEN WOUND, UNSPECIFIED FOOT, INITIAL ENCOUNTER Qualifiers: Encounter type: subsequent encounter Laterality: right Qualified Code(s) : S91.301D - Unspecified open wound, right foot, subsequent encounter Assessment/Plan Current Medications Generic Name Dose Route Start Last Admin Trade Name Freq PRN Reason Stop Dose Admin Acetaminophen 650 mg 08/19/17 15:44 08/22/17 02:10 Tylenol - PO 650 mg Q6H PRN Administration FEVER Acetaminophen 650 mg 08/23/17 11:28 Tylenol - PO Q6H PRN PAIN LEVEL 1 - 3 Albumin Human 12.5 gm 08/19/17 16:00 Albumin Human 25% IVPB Q30M [facility] Clopidogrel Bisulfate 75 mg 08/20/17 10:00 08/24/17 10:22 Plavix - PO Not Given DAILY [facility] Docusate Sodium 100 mg 08/19/17 22:00 08/24/17 06:06 Colace - PO 100 mg TID [facility] Administration Guaifenesin 5 ml 08/19/17 15:44 Diabetic Tussin Dm - PO Q6H PRN COUGH IV Flush 8 ml 08/23/17 15:55 Picc Line Flush IVPUSH PRN PRN Protocol Piperacillin Sod/Tazobactam 50 mls @ 100 mls/hr 08/19/17 18:00 08/24/17 10:00 Sod 2.25 gm/ Dextrose IVPB Not Given Q8H-IV [facility] Protocol Levothyroxine Sodium 75 mcg 08/20/17 07:00 08/24/17 06:07 Synthroid - PO 75 mcg DAILY@0700 [facility] Administration Lorazepam 0.25 mg 08/23/17 11:29 Ativan - PO BID PRN ANXIETY Melatonin 5 mg 08/19/17 15:44 08/24/17 01:36 Melatonin PO 5 mg HS PRN Administration INSOMNIA Metoprolol Succinate 12.5 mg 08/24/17 14:00 Toprol Xl - PO DAILY [facility] Multivit/Ca Carb/B Cmplx/FA/Prenat 1 tablet 08/23/17 14:15 08/24/17 10:22 Nephro-Fer - PO Not Given DAILY [facility] Oxycodone HCl 5 mg 08/23/17 11:26 Roxicodone - PO Q6H PRN PAIN LEVEL 4 - 6 Oxycodone HCl 10 mg 08/23/17 11:27 08/23/17 12:04 Roxicodone - PO 10 mg Q6H PRN Administration PAIN LEVEL 7 - 10 Sacubitril/Valsartan 1 tab 08/19/17 22:00 08/24/17 10:22 Entresto 24 Mg-26 Mg Tablet PO Not Given BID [facility] Senna 2 tab 08/19/17 22:00 08/23/17 22:04 Senna - PO 2 tab HS [facility] Administration Warfarin Sodium 2 mg 08/19/17 18:00 08/23/17 19:14 Coumadin - PO 2 mg DAILY@1800 [facility] Administration Impression 1. ESRD 2. pericardial effusion 3. pneumopericardium 4. hypothyroidism 5. a-fib 6. hypotension 7. hx of colon cancer 8. CHF 9. DM 10. hx of PE 11. CAD Plan - HD today - wound care - cont abx per ID - vascular follow up - cont wound care - will follow Dr Conklin
[2017-08-24 15:55] LABS: CREATININE 3.7 mg/dL (0.7-1.3)
[2017-08-24] MEDS: WARFARIN NA 2 MG TABLET (UD) PO SCH (16:30)
--- NOTE | 2017-08-24 18:04 | PN ---
Physical Exam: SUBJECTIVE: Patient seen and examined OBJECTIVE: Vital Signs Period Temp Pulse Resp BP Sys/Yoon Pulse Ox Last 24 Hr 36.5 F-98.9 F 65-71 18-20 95-129/60-83 GENERAL: The patient is awake, alert, and fully oriented, in no acute distress. HEAD: Normal with no signs of trauma. EYES: PERRL, extraocular movements intact, sclera anicteric, conjunctiva clear. No ptosis. ENT: Ears normal, nares patent, oropharynx clear without exudates, moist mucous membranes. NECK: Trachea midline, full range of motion, supple. LUNGS: Breath sounds equal, clear to auscultation bilaterally, no wheezes, no crackles, no accessory muscle use. HEART: Regular rate and rhythm, S1, S2 without murmur, rub or gallop. ABDOMEN: Soft, nontender, nondistended, normoactive bowel sounds, no guarding, no rebound, no hepatosplenomegaly, no masses. EXTREMITIES: 2+ pulses, warm, well-perfused, no edema. NEUROLOGICAL: Cranial nerves II through XII grossly intact. Normal speech, gait not observed. PSYCH: Normal mood, normal affect. SKIN: Warm, dry, normal turgor, no rashes or lesions noted Laboratory Results - last 24 hr 08/24/17 08/24/17 08/24/17 09:40 09:40 15:00 WBC 5.8 RBC 3.69 L Hgb 10.9 L Hct 34.1 L MCV 92.4 MCH 29.6 MCHC 32.0 RDW 19.8 H Plt Count 215 MPV 9.1 Sodium 137 Potassium 4.0 Chloride 96 L Carbon Dioxide 28 Anion Gap 13 BUN 22 H 8 Creatinine 8.6 H* 3.7 H Creat Clearance w eGFR 6.15 Random Glucose 119 H D Calcium 8.6 Active Medications Generic Name Dose Route Start Last Admin Trade Name Freq PRN Reason Stop Dose Admin Acetaminophen 650 mg 08/19/17 15:44 08/22/17 02:10 Tylenol - PO 650 mg Q6H PRN Administration FEVER Acetaminophen 650 mg 08/23/17 11:28 Tylenol - PO Q6H PRN PAIN LEVEL 1 - 3 Albumin Human 12.5 gm 08/19/17 16:00 Albumin Human 25% IVPB Q30M [facility] Clopidogrel Bisulfate 75 mg 08/20/17 10:00 07/12/18 10:22 Plavix - PO Not Given DAILY [facility] Docusate Sodium 100 mg 08/19/17 22:00 08/24/17 15:39 Colace - PO Not Given TID [facility] Guaifenesin 5 ml 08/19/17 15:44 Diabetic Tussin Dm - PO Q6H PRN COUGH IV Flush 8 ml 08/23/17 15:55 Picc Line Flush IVPUSH PRN PRN Protocol Piperacillin Sod/Tazobactam 50 mls @ 100 mls/hr 08/19/17 18:00 08/24/17 16:32 Sod 2.25 gm/ Dextrose IVPB 100 mls/hr Q8H-IV [facility] Administration Protocol Levothyroxine Sodium 75 mcg 08/20/17 07:00 08/24/17 06:07 Synthroid - PO 75 mcg DAILY@0700 [facility] Administration Lorazepam 0.25 mg 08/23/17 11:29 Ativan - PO BID PRN ANXIETY Melatonin 5 mg 08/19/17 15:44 08/24/17 01:36 Melatonin PO 5 mg HS PRN Administration INSOMNIA Metoprolol Succinate 12.5 mg 08/24/17 14:00 08/24/17 16:30 Toprol Xl - PO 12.5 mg DAILY [facility] Administration Multivit/Ca Carb/B Cmplx/FA/Prenat 1 tablet 08/23/17 14:15 08/24/17 10:22 Nephro-Fer - PO Not Given DAILY [facility] Oxycodone HCl 5 mg 08/23/17 11:26 Roxicodone - PO Q6H PRN PAIN LEVEL 4 - 6 Oxycodone HCl 10 mg 08/23/17 11:27 08/23/17 12:04 Roxicodone - PO 10 mg Q6H PRN Administration PAIN LEVEL 7 - 10 Sacubitril/Valsartan 1 tab 08/19/17 22:00 08/24/17 10:22 Entresto 24 Mg-26 Mg Tablet PO Not Given BID [facility] Senna 2 tab 08/19/17 22:00 08/23/17 22:04 Senna - PO 2 tab HS [facility] Administration Warfarin Sodium 2 mg 08/19/17 18:00 08/24/17 16:30 Coumadin - PO 2 mg DAILY@1800 [facility] Administration ASSESSMENT/PLAN:
--- NOTE | 2017-08-24 20:36 | DS ---
Physical Exam: SUBJECTIVE: Patient seen and examined OBJECTIVE: Vital Signs Period Temp Pulse Resp BP Sys/Yoon Pulse Ox Last 24 Hr 36.5 F-98.9 F 65-71 18-20 95-129/60-83 PHYSICAL EXAM GENERAL: The patient is awake, alert, and fully oriented, in no acute distress. HEAD: Normal with no signs of trauma. EYES: PERRL, extraocular movements intact, sclera anicteric, conjunctiva clear. ENT: Ears normal, nares patent, oropharynx clear without exudates, moist mucous membranes. NECK: Trachea midline, full range of motion, supple. LUNGS: Breath sounds equal, clear to auscultation bilaterally, no wheezes, no crackles, no accessory muscle use. HEART: Regular rate and rhythm, S1, S2 without murmur, rub or gallop. ABDOMEN: Soft, nontender, nondistended, normoactive bowel sounds, no guarding, no rebound, no hepatosplenomegaly, no masses. EXTREMITIES: 2+ pulses, warm, well-perfused, no edema. NEUROLOGICAL: Cranial nerves II through XII grossly intact. Normal speech, gait not observed. PSYCH: Normal mood, normal affect. SKIN: Warm, dry, normal turgor, no rashes or lesions noted. LABS Laboratory Results - last 24 hr 08/24/17 08/24/17 08/24/17 09:40 09:40 15:00 WBC 5.8 RBC 3.69 L Hgb 10.9 L Hct 34.1 L MCV 92.4 MCH 29.6 MCHC 32.0 RDW 19.8 H Plt Count 215 MPV 9.1 Sodium 137 Potassium 4.0 Chloride 96 L Carbon Dioxide 28 Anion Gap 13 BUN 22 H 8 Creatinine 8.6 H* 3.7 H Creat Clearance w eGFR 6.15 Random Glucose 119 H D Calcium 8.6 HOSPITAL COURSE: Date of Admission:08/10/17 Date of Discharge: 08/24/17 Discharge Summary Reason For Visit: CELLULITIS OF LEFT LOWER EXTREMETY Current Active Problems Amputated toe of right foot (Acute) Atrial fibrillation (Acute) Cardiomyopathy (Acute) Cellulitis of right lower extremity (Acute) Diabetic foot ulcer (Acute) ESRD (end stage renal disease) (Acute) Hypotension (Acute) Hypothyroid (Acute) ICD (implantable cardioverter-defibrillator) in place (Acute) Open wound of foot (Acute) Pericardial effusion (Acute) Status post peripheral artery angioplasty (Acute) Condition: Fair - Instructions Diet, Activity, Other Instructions: The patient must follow up in one week with Dr. Davila. Please call his office to arrange an appointment. Patient needs to receive Zosyn IV infusion 2.25gm q8h x 28 days. He requires weekly cbc, cmp, and Mg levels. The patient should have his INR checked in 48 hours. Patient needs to see his medical writer within 2 weeks of discharge. Patient requires hemodialysis three times weekly. Referrals: Adrianne Davila DPM [Staff Physician] - 1 Week Olvin Cope MD [Staff Physician] - 1 Week [facility] - Home Medications Comprehensive Discharge Medication List: Ambulatory Orders Folic Acid/Mv,Fe,Min [Centrum Multivitamin Tab Chew] 1 each PO DAILY 12/10/13 Glucosamine Sulfate Dipot Chlr [Glucosamine] 1,000 mg PO DAILY 12/10/13 Levothyroxine [Synthroid -] 75 mcg PO DAILY 12/10/13 Linagliptin [Tradjenta] 5 mg PO DAILY 12/10/13 Sennosides/Docusate Sodium [Eql Stool Softener-Stim Lax Tb] 1 each PO DAILY Vitamin B Complex 1 each PO DAILY 12/10/13 Clopidogrel Bisulfate [Plavix -] 75 mg PO DAILY tablet 08/23/17 Furosemide [Lasix -] 40 mg PO BID #60 cap 08/23/17 Melatonin 5 mg PO HS PRN tab 08/23/17 Metoprolol Succinate [Toprol XL -] 12.5 mg PO DAILY tab.sr.24h 08/23/17 Picc Line Flush [Picc Line Flush -] 8 ml IVPUSH PRN PRN ml 08/23/17 Piperacillin Sodium/Tazobactam [Zosyn 2.25 Gram Vial] 2.25 gm IV Q8H #84 vial Sacubitril/Valsartan [Entresto 24 mg-26 mg Tablet] 1 tab PO BID tablet Sennosides [Senna -] 2 tab PO HS tablet 08/23/17 Vitamin B Comp W-C [Nephro-Fer -] 1 tablet PO DAILY tablet 07/11/18 Warfarin Na [Coumadin -] 3 mg PO DAILY@1800 tablet 08/23/17 - Discharge Referral Referred to [facility] No
== END 2017-08-24 20:50 | DRG 616 ==
LOC: JER 12:26 → JERBED 14:59 → J7W 18:55 → J4W 08-11 14:05 → J6S 08-19 15:15
PROVIDERS: ADMIT Internal Medicine; ATTEND Nurse Practitioner Family
PROC: 0Y6X0Z0 Detachment at Right 5th Toe, Complete, Open Approach (ICD-10-PCS; 2017-08-14)
PROC: 0JBQ0ZZ Excision of Right Foot Subcutaneous Tissue and Fascia, Open Approach (ICD-10-PCS; 2017-08-14)
PROC: 30233L1 Transfusion of Nonautologous Fresh Plasma into Peripheral Vein, Percutaneous Approach (ICD-10-PCS; 2017-08-14)
PROC: 30233K1 Transfusion of Nonautologous Frozen Plasma into Peripheral Vein, Percutaneous Approach (ICD-10-PCS; 2017-08-14)
PROC: 0Y6V0Z0 Detachment at Right 4th Toe, Complete, Open Approach (ICD-10-PCS; principal; 2017-08-14 14:00)
PROC: 04CR0ZZ Extirpation of Matter from Right Posterior Tibial Artery, Open Approach (ICD-10-PCS; 2017-08-15)
PROC: 047 Lower Arteries, Dilation (ICD-10-PCS; 2017-08-15)
PROC: 5A1D90Z Performance of Urinary Filtration, Continuous, Greater than 18 hours Per Day (ICD-10-PCS; 2017-08-24)
DX: E11.69 Type 2 diabetes mellitus with other specified complication (principal); A41.9 Sepsis, unspecified organism; E11.52 Type 2 diabetes mellitus with diabetic peripheral angiopathy with gangrene; I96 Gangrene, not elsewhere classified; M86.171 Other acute osteomyelitis, right ankle and foot; I12.0 Hypertensive chronic kidney disease with stage 5 chronic kidney disease or end stage renal disease; L03.116 Cellulitis of left lower limb; I31.3 Pericardial effusion (noninflammatory); I42.9 Cardiomyopathy, unspecified; I50.22 Chronic systolic (congestive) heart failure; I13.2 Hypertensive heart and chronic kidney disease with heart failure and with stage 5 chronic kidney disease, or end stage renal disease; I42.0 Dilated cardiomyopathy; I48.1 Persistent atrial fibrillation; R71.0 Precipitous drop in hematocrit; E11.22 Type 2 diabetes mellitus with diabetic chronic kidney disease; N18.6 End stage renal disease; Z99.2 Dependence on renal dialysis; E03.9 Hypothyroidism, unspecified; I95.9 Hypotension, unspecified; R79.1 Abnormal coagulation profile; I25.5 Ischemic cardiomyopathy; I25.119 Atherosclerotic heart disease of native coronary artery with unspecified angina pectoris; E11.40 Type 2 diabetes mellitus with diabetic neuropathy, unspecified; E11.621 Type 2 diabetes mellitus with foot ulcer; L97.519 Non-pressure chronic ulcer of other part of right foot with unspecified severity
CPT/HCPCS: 36415; 36430; 36558; 71045-TC-FY; 71250-TC; 73610-TC-RT-FY; 73630-TC-RT-FY; 73700-TC-RT; 76000-TC-FY; 77001-TC-FY; 80048; 80053; 82565; 82803; 82962; 83036; 83605; 83735; 84443; 84484; 84520; 84550; 85025; 85027; 85610; 85730; 86704; 86706; 86708; 86803; 86850; 86900; 86901; 87040; 87070; 87186; 87205; 87340; 88305-TC; 88311-TC; 93005; 93010; 93306-TC; 93971-TC; 94760; 97116-GP; 97161-GP; 99285-25; C1751; J0131; J1644; J7030; P9017

== ENCOUNTER 2017-09-11 09:50 | Inpatient (IN) | payer BC, OTHER ==
--- NOTE | 2017-09-11 10:21 | PDOC ---
History of Present Illness <Akil Mcclendon - Last Filed: 09/11/17 13:25> - General History Source: Patient Exam Limitations: No Limitations - History of Present Illness Initial Comments: 09/11/17 14:29 The patient is a 72 year old make with a significant past medical history of CHF s/p left chest wall pacemaker/AICD, DM with neuropathy, HTN, PE, ESRD on HD w/ R. upper extremity fistula, RI, Colon CA, and Afib who presents to the ED, sent from [facility], for right toe infection. The patient was recently admitted for rehab at [facility] after having two right toes amputated on his right foot secondary to poor blood flow. Patient was sent to the ED earlier today for admission amputation of other two digits on his right foot. Patient is scheduled for amputation of his right digits tomorrow. Patient is scheduled for dialysis tomorrow but is requesting dialysis today secondary to surgery. Denies fever or chills. Denies chest pain. Denies abdominal pain or diarrhea. Denies any other symptoms. Surgical hx: Colon CA RX w/chemo. AICD, Pacemaker, R. Upper extremity AV fistula , L. leg angioplasty, L. foot digit amputation. <Eddi Gallardo - Last Filed: 09/11/17 14:30> - General Chief Complaint: Wound Stated Complaint: SENT BY PCP:PRE OP Time Seen by Provider: 09/11/17 10:18 Past History - Past Medical History Anemia: No Asthma: Yes Cancer: Yes (COLON CA) Cardiac Disorders: Yes (RI, PE, A-fib) COPD: No CHF: Yes Diabetes: Yes (neuropathy) Dialysis: Yes () HTN: Yes Hypercholesterolemia: Yes Thyroid Disease: Yes (on dialysis ) - Surgical History Abdominal Surgery: Yes (SURGERY FOR COLON CA RX WITH CHEMO) Cardiac Surgery: Yes (Pacemaker) - Immunization History Immunization Up to Date: Yes - Suicide/Smoking/Psychosocial Hx Smoking History: Former smoker Have you smoked in the past 12 months: No If you are a former smoker, when did you quit?: 1981 Information on smoking cessation initiated: No Hx Alcohol Use: No (quit 1981) Drug/Substance Use Hx: No Substance Use Type: None Hx Substance Use Treatment: No <Aikl Mcclendon - Last Filed: 09/11/17 13:25> <SamiMeganbrianda - Last Filed: 09/11/17 14:30> - Past Medical History Allergies/Adverse Reactions: Allergies Allergy/AdvReac Type Severity Reaction Status Date / Time No Known Drug Allergies Allergy Verified 09/11/17 09:55 Home Medications: Ambulatory Orders Acetaminophen 650 mg PO Q6H PRN 09/11/17 Clopidogrel Bisulfate [Plavix -] 75 mg PO DAILY 09/11/17 Clotrimazole/Betamet Diprop [Lotrisone Cream (Small Tube)] 1 applic TP BID 09/11 Glucosamine Sulfate Dipot Chlr [Glucosamine] 500 mg PO DAILY 09/11/17 Levothyroxine [Synthroid -] 75 mcg PO DAILY 09/11/17 Linagliptin [Tradjenta] 5 mg PO DAILY 09/11/17 Melatonin 5 mg PO HS PRN 09/11/17 Metoprolol Succinate 12.5 mg PO DAILY 09/11/17 Oxycodone HCl/Acetaminophen [Percocet 5-325 mg Tablet] 1 tab PO Q8H PRN Wukswhdwjyvq-Qfhi-Ftxhhqtm,Iso [Zosyn 2.25 gm Pre-Mix Bag] 2.25 gm IV TID Sacubitril/Valsartan [Entresto 24 mg-26 mg Tablet] 1 each PO BID 09/11/17 Sennosides [Senna] 2 tab PO HS 09/11/17 Sennosides/Docusate Sodium [Senexon-S Tablet] 1 each PO DAILY 09/11/17 Thiamine HCl [B-1] 100 mg PO DAILY 09/11/17 Vitamin B Comp W-C [Nephro-Fer -] 1 tablet PO DAILY 09/11/17 Warfarin Sodium [Coumadin] 4.5 mg PO HS 09/11/17 Review of Systems - Review of Systems Able to Perform ROS?: Yes Comments:: 09/11/17 14:30 CONSTITUTIONAL: No reported: Fever, Chills, Diaphoresis, Generalized Weakness, Malaise, Loss of Appetite HEENT: No reported: Rhinorrhea, Nasal Congestion, Throat Pain, Throat Swelling, Difficulty Swallowing, Mouth Swelling, Ear Pain, Eye Pain, Visual Changes CARDIOVASCULAR: No reported: Chest Pain, Syncope, Palpitations, Irregular Heart Rate, Lightheadedness, Peripheral Edema RESPIRATORY: No reported: Cough, Shortness of Breath, SOB with Exertion, Orthopnea, Wheezing , Stridor, Hemoptysis GASTROINTESTINAL: No reported: Abdominal pain, Abdominal Distension, Nausea, Vomiting, Diarrhea, Constipation, Melena, Hematochezia GENITOURINARY: No reported: Dysuria, Frequency, Urgency, Hesitancy, Flank Pain, Genital Pain MUSCULOSKELETAL: No reported: Myalgia, Arthralgia, Joint Swelling, Back pain, Neck Pain SKIN: No reported: Rash, Itching, Pallor HEMEATOLOGIC/IMMUNOLOGIC: No reported: Easy Bleeding, Easy Bruising, Lymphadenopathy, Frequent infections ENDOCRINE: No reported: Unexplained Weight Gain, Unexplained Weight Loss, Heat Intolerance , Cold Intolerance NEUROLOGIC: No reported: Headache, Focal Weakness, Paresthesias, Vertigo, Lightheadedness, Unsteady Gait, Seizure, Mental Status Changes, Incontinence PSYCHIATRIC: No reported: Anxiety, Depression All Other Systems: Reviewed and Negative <Eddi Gallardo - Last Filed: 09/11/17 14:30> *Physical Exam - Vital Signs Last Vital Signs Temp Pulse Resp BP Pulse Ox 97.6 F 71 19 106/64 100 09/11/17 09:55 09/11/17 09:55 09/11/17 09:55 09/11/17 09:55 09/11/17 09:55 <Akil Mcclendon - Last Filed: 09/11/17 13:25> - Vital Signs Last Vital Signs Temp Pulse Resp BP Pulse Ox 97.7 F 67 18 105/60 98 09/11/17 11:46 09/11/17 11:46 09/11/17 11:46 09/11/17 11:46 09/11/17 11:46 - Physical Exam Comments: 09/11/17 14:30 GENERAL: The patient is awake, alert, and fully oriented, Nontoxic - in no acute distress. HEAD: Normocephalic, atraumatic. EYES: extraocular movements intact, sclera anicteric, conjunctiva clear. ENT: Normal voice, Moist mucous membranes. NECK: Normal range of motion, supple LUNGS: Breath sounds equal, clear to auscultation bilaterally. No wheezes, no rhonchi, no rales. HEART: + Picc line in place, clean, dry, intact. Regular rate and rhythm, without murmur, rub or gallop. ABDOMEN: Soft, nontender, No guarding, no rebound.No CVA tenderness EXTREMITIES: + dialysis site has a thrill on the right forearm. Toes: 2nd and 3rd digit of right foot are cool to touch, dark appearing, insensate, NEUROLOGICAL: No facial assymetry, Normal speech, moving all 4 exermities spontaenoulsy and symmetrically PSYCH: Normal mood, normal affect. SKIN: Warm, Dry, normal turgor, <Eddi Gallardo - Last Filed: 09/11/17 14:30> Heart Score/ECG Review - ECG Impressions Comment:: 09/11/17 12:30 Twelve-lead EKG was performed and reviewed by me. ventricular paced rhythm prolonged qrs interval rate of 66 <Akil Mcclendon - Last Filed: 09/11/17 13:25> ED Treatment Course - LABORATORY CBC & Chemistry Diagram: 09/11/17 11:05 09/11/17 11:05 <Akil Mcclendon - Last Filed: 09/11/17 13:25> - LABORATORY CBC & Chemistry Diagram: 09/11/17 11:05 09/11/17 11:05 - ADDITIONAL ORDERS Additional order review: Laboratory Results 09/11/17 09/11/17 09/11/17 11:05 11:05 11:05 PT with INR 15.00 H INR 1.33 H Sodium 130 L Potassium 4.7 D Chloride 93 L Carbon Dioxide 26 Anion Gap 11 BUN 22 H Creatinine 7.3 H Creat Clearance w eGFR 7.43 Random Glucose 85 Calcium 8.8 Total Bilirubin 0.9 AST 69 H D ALT 16 D Alkaline Phosphatase 83 D Total Protein 8.4 H Albumin 2.7 L Blood Type Cancelled Antibody Screen Cancelled 09/11/17 11:05 RBC 3.80 L MCV 90.9 MCHC 32.5 RDW 19.4 H MPV 9.9 Neutrophils % 55.8 Lymphocytes % 15.6 Monocytes % 20.8 H Eosinophils % 6.4 H Basophils % 1.4 - RADIOLOGY Radiograph Interpretation: 09/11/17 13:39 RAD/CHEST X-RAY PORTABLE Impression: Cardiomegaly. Rule out pericardial effusion. No evidence of CHF, pneumothorax, or large pleural effusion. No pulmonary infiltrates are seen in the visualized lungs. Reported by: Alonzo Melton <Eddi Gallardo - Last Filed: 09/11/17 14:30> Medical Decision Making - Medical Decision Making 09/11/17 11:38 pt here for surgery will obtain dialysis if needed pt asypmtmatic will admit for further management 09/11/17 13:[address] theodore agreed with admissio nfor furthe rmangament stable for med surg case dw dr. prasad will try to get pt dialysis today Case discussed in detail with admitting physician including history, physical exam and ancillary studies. Admitting physician has assumed care for the patient, will follow all pending diagnostics and will complete the evaluation and treatment. A portion of this note was documented by scribe services under my direction. I have reviewed the details of the note, within reason, and agree with the documentation with the following case summary and management plan written by me <Akil Mcclendon - Last Filed: 09/11/17 13:25> *DC/Admit/Observation/Transfer - Discharge Dispostion Decision to Admit order: Yes <Akil Mcclendon - Last Filed: 09/11/17 13:25> - Attestations Scribe Attestion: 09/11/17 14:30 Documentation prepared by Eddi Gallardo, acting as director of medical services for Akil Mcclendon MD <Eddi Gallardo - Last Filed: 09/11/17 14:30> Diagnosis at time of Disposition: ESRD (end stage renal disease) Osteomyelitis Qualifiers: Osteomyelitis type: other Osteomyelitis location: foot Laterality: right Qualified Code(s): M86.8X7 - Other osteomyelitis, ankle and foot - Discharge Dispostion Condition at time of disposition: Stable
[2017-09-11 11:13] LABS: BASO % 1.4 % (0-2.0); EOS % 6.4 % (0-4.5); HEMATOCRIT 34.6 % (35.4-49); HEMOGLOBIN 11.2 GM/dL (11.7-16.9); LYMPH % 15.6 % (8-40); MCH 29.6 pg (25.7-33.7); MCHC 32.5 g/dl (32.0-35.9); MEAN CELL VOLUME 90.9 fl (80-96); MEAN PLT VOLUME 9.9 fl (7.5-11.1); MONO % 20.8 % (3.8-10.2); NEUT % 55.8 % (42.8-82.8); PLATELET COUNT 120 K/MM3 (134-434); RDW 19.4 % (11.9-15.9); WHITE BLOOD COUNT 3.5 K/mm3 (4.0-10.0)
[2017-09-11 11:27] LABS: ALBUMIN 2.7 g/dl (3.4-5.0); ALK PHOS 83 U/L (45-117); ANION GAP 11 (8-16); BILIRUBIN,TOTAL 0.9 mg/dL (0.2-1.0); BLOOD UREA NITROGEN 22 mg/dL (7-18); CALCIUM 8.8 mg/dL (8.5-10.1); CHLORIDE 93 mmol/L (98-107); CO2 26 mmol/L (21-32); CREATININE 7.3 mg/dL (0.7-1.3); GLUCOSE,RANDOM 85 mg/dL (74-106); INR 1.33 (0.82-1.09); SGPT/ALT 16 U/L (12-78); SODIUM 130 mmol/L (136-145); TOT PROT 8.4 g/dl (6.4-8.2)
[2017-09-11 11:28] LABS: POTASSIUM 4.7 mmol/L (3.5-5.1); SGOT/AST 69 U/L (15-37)
[2017-09-11 13:00] LABS: ANISOCYTOSIS 1+; MACROCYTOSIS 1+; OVALOCYTE 1+
--- NOTE | 2017-09-11 14:04 | CONSULT ---
Consult Consult Specialty:: Nephrology Reason for Consultation:: ESRD - History of Present Illness Chief Complaint: sent in for amputation of 2 toes History of Present Illness: Pt is a 72 year old male with pmhx of ESRD, a-fib, pericardial effusion, CHF, DM and CAD who presents to the ER for admission for amputation of 2 toes. He denies shortness of breath or palpitations. He denies fevers or chills. He is on a TTS HD schedule. He last dialyzed on Monday. He is asking to get HD today instead of tomorrow as he is schedule for surgery in am. - History Source History Provided By: Patient, Medical Record - Past Medical History SCAN COORDINATOR: Yes: Peripheral Neuropathy Cardio/Vascular: Yes: AFIB Pulmonary: Yes: COPD, Pulmonary Embolus Gastrointestinal: Yes: Cancer (COLON), Other (PATIENT STATES HE WAS RESECTED AND RECEIVED CHEMOTX AND RT AT [facility]) Renal/: Yes: Renal Failure, Hemodialysis Musculoskeletal: Yes: Other (RIGHT ANKLE/FOOT PAIN 10/10 WITH RIGHT LATERAL METATARSAL ULCER W DRAINAGE) Endocrine: Yes: Diabetes Mellitus - Past Surgical History Past Surgical History: Yes: AICD, AV Fistula/Graft - Alcohol/Substance Use Hx Alcohol Use: No (quit 1981) - Smoking History Smoking history: Former smoker Have you smoked in the past 12 months: No If you are a former smoker, when did you quit?: 1981 - Social History History of Recent Travel: No Home Medications - Allergies Allergies/Adverse Reactions: Allergies Allergy/AdvReac Type Severity Reaction Status Date / Time No Known Drug Allergies Allergy Verified 09/11/17 09:55 - Home Medications Home Medications: Ambulatory Orders Clopidogrel Bisulfate [Plavix -] 75 mg PO DAILY 09/11/17 Clotrimazole/Betamet Diprop [Lotrisone Cream (Small Tube)] 1 applic TP BID 09/11 Glucosamine Sulfate Dipot Chlr [Glucosamine] 500 mg PO DAILY 09/11/17 Levothyroxine [Synthroid -] 75 mcg PO DAILY 09/11/17 Linagliptin [Tradjenta] 5 mg PO DAILY 09/11/17 Oxycodone HCl/Acetaminophen [Percocet 5-325 mg Tablet] 1 tab PO Q8H PRN Exvnqvrlhkqw-Owox-Psyjvoyj,Iso [Zosyn 2.25 gm Pre-Mix Bag] 2.25 gm IV TID RX: Acetaminophen 650 mg PO Q6H PRN 09/11/17 RX: Melatonin 5 mg PO HS PRN 09/11/17 RX: Metoprolol Succinate 12.5 mg PO DAILY 09/11/17 Sacubitril/Valsartan [Entresto 24 mg-26 mg Tablet] 1 each PO BID 09/11/17 Sennosides [Senna] 2 tab PO HS 09/11/17 Sennosides/Docusate Sodium [Senexon-S Tablet] 1 each PO DAILY 09/11/17 Thiamine HCl [B-1] 100 mg PO DAILY 09/11/17 Vitamin B Comp W-C [Nephro-Fer -] 1 tablet PO DAILY 09/11/17 Warfarin Sodium [Coumadin] 4.5 mg PO HS 09/11/17 Family Disease History - Family Disease History Family History: Denies Review of Systems - Review of Systems Constitutional: reports: No Symptoms Eyes: reports: No Symptoms HENT: reports: No Symptoms Neck: reports: No Symptoms Cardiovascular: reports: No Symptoms Respiratory: reports: No Symptoms Gastrointestinal: reports: No Symptoms Genitourinary: reports: No Symptoms Integumentary: reports: Erythema Endocrine: reports: No Symptoms Hematology/Lymphatic: reports: No Symptoms Physical Exam Vital Signs: Vital Signs Temperature 97.7 F 09/11/17 11:46 Pulse Rate 67 09/11/17 11:46 Respiratory Rate 18 09/11/17 11:46 Blood Pressure 105/60 09/11/17 11:46 O2 Sat by Pulse Oximetry (%) 98 09/11/17 11:46 Constitutional: Yes: Calm Eyes: Yes: Conjunctiva Clear HENT: Yes: Atraumatic Neck: Yes: Supple Cardiovascular: Yes: S1, S2 Respiratory: Yes: CTA Bilaterally Gastrointestinal: Yes: Soft Renal/: Yes: WNL Extremities: Yes: WNL Edema: Yes Edema: LLE: Trace, RLE: Trace Wound/Incision: Yes: Dressing Dry and Intact Neurological: Yes: Oriented Psychiatric: Yes: Oriented Labs: CBC, BMP 09/11/17 11:05 09/11/17 11:05 Laboratory Tests 09/11/17 09/11/17 11:05 11:05 WBC 3.5 L Hgb 11.2 L Sodium 130 L Potassium 4.7 D Carbon Dioxide 26 Anion Gap 11 BUN 22 H Creatinine 7.3 H Imaging - Results Chest X-ray: Report Reviewed Problem List - Problems (1) ESRD (end stage renal disease) Code(s): N18.6 - END STAGE RENAL DISEASE (2) Osteomyelitis Code(s): M86.9 - OSTEOMYELITIS, UNSPECIFIED Qualifiers: Osteomyelitis type: other Osteomyelitis location: foot Laterality: right Qualified Code(s): M86.8X7 - Other osteomyelitis, ankle and foot (3) Atrial fibrillation Code(s): I48.91 - UNSPECIFIED ATRIAL FIBRILLATION Qualifiers: Assessment/Plan Impression 1. ESRD 2. hx pericardial effusion 3. hx pneumopericardium 4. hypothyroidism 5. a-fib 6. hypotension 7. hx of colon cancer 8. CHF 9. DM 10. hx of PE 11. CAD 12. foot ulcer Plan - will arrange for HD today - pt going to OR tomorrow - the pericardial effusion is persistent, repeat echo - abx per ID - repeat labs in am - cont wound care to foot
[2017-09-11] MEDS ORDERED: ACETAMINOPHEN 325 MG TABLET (FP) PO PRN ×2 (14:57→15:58)
[2017-09-11] MEDS ORDERED: MELATONIN 5 MG TABLETS PO PRN (14:57)
[2017-09-11] MEDS ORDERED: ACETAMINOPHEN 325 MG TABLET (FP) PO ONE (15:00)
--- NOTE | 2017-09-11 15:07 | HP ---
Admitting History and Physical - Primary Care Physician PCP: Crystal Middleton - Admission History of Present Illness: Per er records-- reviewed. The patient is a 72 year old make with a significant past medical history of CHF s/p left chest wall pacemaker/AICD, DM with neuropathy, HTN, PE, ESRD on HD w/ R. upper extremity fistula, [place], Colon CA, and Afib who presents to the ED, sent from [facility], for right toe infection. The patient was recently admitted for rehab at [facility] after having two right toes amputated on his right foot secondary to poor blood flow. Patient was sent to the ED earlier today for admission amputation of other two digits on his right foot. Patient is scheduled for amputation of his right digits tomorrow. Patient is scheduled for dialysis tomorrow but is requesting dialysis today secondary to surgery. Denies fever or chills. Denies chest pain. Denies abdominal pain or diarrhea. Denies any other symptoms. Surgical hx: Colon CA RX w/chemo. AICD, Pacemaker, R. Upper extremity AV fistula , L. leg angioplasty, L. foot digit amputation. Case discussed with Er Physician. Pt seen/ examined in dialysis denies any complains denies cp/sob/abd pain History Source: Patient Limitations to Obtaining History: No Limitations - Past Medical History CLINICAL RESEARCHER: Yes: Peripheral Neuropathy Cardiovascular: Yes: AFIB Pulmonary: Yes: COPD, Pulmonary Embolus Gastrointestinal: Yes: Cancer (COLON), Other (PATIENT STATES HE WAS RESECTED AND RECEIVED CHEMOTX AND RT AT [facility]) Renal/: Yes: Renal Failure, Hemodialysis Heme/Onc: Yes: Anemia Musculoskeletal: Yes: Other (RIGHT ANKLE/FOOT PAIN 10/10 WITH RIGHT LATERAL METATARSAL ULCER W DRAINAGE) Endocrine: Yes: Diabetes Mellitus - Past Surgical History Past Surgical History: Yes: AICD, AV Fistula/Graft - Smoking History Smoking history: Former smoker Have you smoked in the past 12 months: No If you are a former smoker, when did you quit?: 1981 - Alcohol/Substance Use Hx Alcohol Use: No (quit 1981) - Social History History of Recent Travel: No Home Medications - Allergies Allergies/Adverse Reactions: Allergies Allergy/AdvReac Type Severity Reaction Status Date / Time No Known Drug Allergies Allergy Verified 09/11/17 09:55 - Home Medications Home Medications: Ambulatory Orders Acetaminophen 650 mg PO Q6H PRN 09/11/17 Clopidogrel Bisulfate [Plavix -] 75 mg PO DAILY 09/11/17 Clotrimazole/Betamet Diprop [Lotrisone Cream (Small Tube)] 1 applic TP BID 09/11 Glucosamine Sulfate Dipot Chlr [Glucosamine] 500 mg PO DAILY 09/11/17 Levothyroxine [Synthroid -] 75 mcg PO DAILY 09/11/17 Linagliptin [Tradjenta] 5 mg PO DAILY 09/11/17 Melatonin 5 mg PO HS PRN 09/11/17 Metoprolol Succinate 12.5 mg PO DAILY 09/11/17 Oxycodone HCl/Acetaminophen [Percocet 5-325 mg Tablet] 1 tab PO Q8H PRN Poavpjvmqxvs-Igft-Etdmmvng,Iso [Zosyn 2.25 gm Pre-Mix Bag] 2.25 gm IV TID Sacubitril/Valsartan [Entresto 24 mg-26 mg Tablet] 1 each PO BID 09/11/17 Sennosides [Senna] 2 tab PO HS 09/11/17 Sennosides/Docusate Sodium [Senexon-S Tablet] 1 each PO DAILY 09/11/17 Thiamine HCl [B-1] 100 mg PO DAILY 09/11/17 Vitamin B Comp W-C [Nephro-Fer -] 1 tablet PO DAILY 09/11/17 Warfarin Sodium [Coumadin] 4.5 mg PO HS 09/11/17 Review of Systems - Review of Systems Constitutional: reports: No Symptoms Neck: reports: No Symptoms Cardiovascular: reports: No Symptoms Respiratory: reports: No Symptoms Gastrointestinal: reports: No Symptoms Neurological: reports: No Symptoms Physical Examination Vital Signs: Vital Signs Temperature 97.7 F 09/11/17 12:30 Pulse Rate 65 09/11/17 15:05 Respiratory Rate 18 09/11/17 15:05 Blood Pressure 99/61 09/11/17 15:05 O2 Sat by Pulse Oximetry (%) 98 09/11/17 14:59 Constitutional: Yes: No Distress, Calm Eyes: Yes: Conjunctiva Clear Neck: Yes: Supple Cardiovascular: Yes: Regular Rate and Rhythm Respiratory: Yes: CTA Bilaterally Gastrointestinal: Yes: Normal Bowel Sounds, Soft Edema: No Wound/Incision: Yes: Dressing Dry and Intact Neurological: Yes: Alert Psychiatric: Yes: Alert Labs: CBC, BMP 09/11/17 11:05 09/11/17 11:05 Imaging - Results Chest X-ray: Report Reviewed EKG: Report Reviewed Problem List - Problems (1) ESRD (end stage renal disease) Code(s): N18.6 - END STAGE RENAL DISEASE (2) Osteomyelitis Code(s): M86.9 - OSTEOMYELITIS, UNSPECIFIED Qualifiers: Osteomyelitis type: other Osteomyelitis location: foot Laterality: right Qualified Code(s): M86.8X7 - Other osteomyelitis, ankle and foot (3) Amputated toe of right foot Code(s): Z89.421 - ACQUIRED ABSENCE OF OTHER RIGHT TOE(S) (4) Atrial fibrillation Code(s): I48.91 - UNSPECIFIED ATRIAL FIBRILLATION Qualifiers: (5) Cardiomyopathy Code(s): I42.9 - CARDIOMYOPATHY, UNSPECIFIED Qualifiers: Cardiomyopathy type: unspecified Qualified Code(s): I42.9 - Cardiomyopathy , unspecified (6) Hypothyroid Code(s): E03.9 - HYPOTHYROIDISM, UNSPECIFIED Qualifiers: Hypothyroidism type: unspecified Qualified Code(s): E03.9 - Hypothyroidism , unspecified (7) ICD (implantable cardioverter-defibrillator) in place Code(s): Z95.810 - PRESENCE OF AUTOMATIC (IMPLANTABLE) CARDIAC DEFIBRILLATOR (8) Pericardial effusion Code(s): I31.3 - PERICARDIAL EFFUSION (NONINFLAMMATORY) Assessment/Plan Stable Being dialized For OR tomorrow hold diabetic meds monitor bgm Cardiology eval Continue abx hold a/c , plavix will follow
[2017-09-11] MEDS ORDERED: oxyCODONE HCL 5 MG TABLET PO PRN (15:57)
--- NOTE | 2017-09-11 16:04 | EKG ---
Test Reason : Blood Pressure : / mmHG Vent. Rate : 066 BPM Atrial Rate : 080 BPM P-R Int : 000 ms QRS Dur : 170 ms QT Int : 538 ms P-R-T Axes : 000 -60 114 degrees QTc Int : 564 ms Ventricular-paced rhythm WITH OCCASIONAL PREMATURE VENTRICULAR COMPLEXES Biventricular pacemaker detected ABNORMAL ECG WHEN COMPARED WITH ECG OF 10-AUG-2017 13:19, NO SIGNIFICANT CHANGE WAS FOUND Confirmed by KIRBY DAI MD ([id number]) on 09/11/2017 4:04:10 PM Referred By: Confirmed By:KIRBY DAI MD
[2017-09-11] MEDS: INSULIN SLIDING SCALE (NOVOLOG) 1 VIAL SQ SCH (17:30)
[2017-09-11] MEDS ORDERED: PIPERACILLIN/TAZOBACTAM 2.25 GM VIAL IVPB ONE (17:58)
[2017-09-11] MEDS ORDERED: DEXTROSE 5%-WATER - 50 ML IVPB ONE (17:58)
[2017-09-11] MEDS ORDERED: PIPERACILLIN/TAZOB 2.25 GM 2.25 GM in DEXTROSE 5%-WATER - 50 ML IVPB SCH (18:00)
--- NOTE | 2017-09-11 18:57 | CON.ID ---
Consult Consult Specialty:: infectious diseases Referred by:: Reason for Consultation:: Rt.toe infection - History of Present Illness Chief Complaint: rt toe pain History of Present Illness: This patient known to me from last admission 72 year old make with a significant past medical history of CHF s/p left chest wall pacemaker/AICD, DM with neuropathy, HTN, PE, ESRD on HD w/ R. upper extremity fistula, LA, Colon CA, and Afib admitted , for right toe infection. The patient was recently admitted for rehab at [facility] after having two right toes amputated on his right foot secondary to poor blood flow. . Patient is scheduled for amputation of his right digits tomorrow. Denies fever or chills. Denies chest pain. Denies abdominal pain or diarrhea. Denies any other symptoms. - History Source History Provided By: Patient - Past Medical History THEATRICAL TROUPER: Yes: Peripheral Neuropathy Cardio/Vascular: Yes: AFIB Pulmonary: Yes: COPD, Pulmonary Embolus Gastrointestinal: Yes: Cancer (COLON), Other (PATIENT STATES HE WAS RESECTED AND RECEIVED CHEMOTX AND RT AT [facility]) Renal/: Yes: Renal Failure, Hemodialysis Musculoskeletal: Yes: Other (RIGHT ANKLE/FOOT PAIN 10/10 WITH RIGHT LATERAL METATARSAL ULCER W DRAINAGE) Endocrine: Yes: Diabetes Mellitus - Past Surgical History Past Surgical History: Yes: AICD, AV Fistula/Graft - Alcohol/Substance Use Hx Alcohol Use: No (quit 1981) - Smoking History Smoking history: Former smoker Have you smoked in the past 12 months: No If you are a former smoker, when did you quit?: 1981 - Social History History of Recent Travel: No Home Medications - Allergies Allergies/Adverse Reactions: Allergies Allergy/AdvReac Type Severity Reaction Status Date / Time No Known Drug Allergies Allergy Verified 09/11/17 09:55 - Home Medications Home Medications: Ambulatory Orders Acetaminophen 650 mg PO Q6H PRN 09/11/17 Clopidogrel Bisulfate [Plavix -] 75 mg PO DAILY 09/11/17 Clotrimazole/Betamet Diprop [Lotrisone Cream (Small Tube)] 1 applic TP BID 09/11 Glucosamine Sulfate Dipot Chlr [Glucosamine] 500 mg PO DAILY 09/11/17 Levothyroxine [Synthroid -] 75 mcg PO DAILY 09/11/17 Linagliptin [Tradjenta] 5 mg PO DAILY 09/11/17 Melatonin 5 mg PO HS PRN 09/11/17 Metoprolol Succinate 12.5 mg PO DAILY 09/11/17 Oxycodone HCl/Acetaminophen [Percocet 5-325 mg Tablet] 1 tab PO Q8H PRN Mniyezzehwli-Wlcn-Ytafhlli,Iso [Zosyn 2.25 gm Pre-Mix Bag] 2.25 gm IV TID Sacubitril/Valsartan [Entresto 24 mg-26 mg Tablet] 1 each PO BID 09/11/17 Sennosides [Senna] 2 tab PO HS 09/11/17 Sennosides/Docusate Sodium [Senexon-S Tablet] 1 each PO DAILY 09/11/17 Thiamine HCl [B-1] 100 mg PO DAILY 09/11/17 Vitamin B Comp W-C [Nephro-Fer -] 1 tablet PO DAILY 09/11/17 Warfarin Sodium [Coumadin] 4.5 mg PO HS 09/11/17 Review of Systems - Review of Systems Constitutional: reports: No Symptoms Eyes: reports: No Symptoms HENT: reports: No Symptoms Neck: reports: No Symptoms Cardiovascular: reports: No Symptoms Respiratory: reports: No Symptoms Gastrointestinal: reports: No Symptoms Genitourinary: reports: No Symptoms Musculoskeletal: reports: Joint Pain Integumentary: reports: Erythema, Other Neurological: reports: No Symptoms Endocrine: reports: No Symptoms Hematology/Lymphatic: reports: No Symptoms Psychiatric: reports: No Symptoms Physical Exam Vital Signs: Vital Signs Temperature 98.9 F 09/11/17 18:04 Pulse Rate 74 09/11/17 18:04 Respiratory Rate 16 09/11/17 18:04 Blood Pressure 101/64 09/11/17 18:04 O2 Sat by Pulse Oximetry (%) 98 09/11/17 17:39 Constitutional: Yes: No Distress, Calm Eyes: Yes: Conjunctiva Clear Neck: Yes: Supple, Trachea Midline Cardiovascular: Yes: Regular Rate and Rhythm Respiratory: Yes: Regular, CTA Bilaterally Gastrointestinal: Yes: Normal Bowel Sounds, Soft Musculoskeletal: Yes: Other Extremities: Yes: Other (ave fistula erythema of the foot) Neurological: Yes: Alert, Oriented Psychiatric: Yes: Alert, Oriented Labs: CBC, BMP 09/11/17 11:05 09/11/17 11:05 Imaging - Results Chest X-ray: Report Reviewed, Image Reviewed X-ray: Report Reviewed, Image Reviewed Assessment/Plan Problem List - Problems (1) ESRD (end stage renal disease) Code(s): N18.6 - END STAGE RENAL DISEASE (2) Osteomyelitis Code(s): M86.9 - OSTEOMYELITIS, UNSPECIFIED Qualifiers: Osteomyelitis type: other Osteomyelitis location: foot Laterality: right Qualified Code(s): M86.8X7 - Other osteomyelitis, ankle and foot (3) Amputated toe of right foot Code(s): Z89.421 - ACQUIRED ABSENCE OF OTHER RIGHT TOE(S) (4) Atrial fibrillation Code(s): I48.91 - UNSPECIFIED ATRIAL FIBRILLATION Qualifiers: (5) Cardiomyopathy Code(s): I42.9 - CARDIOMYOPATHY, UNSPECIFIED Qualifiers: Cardiomyopathy type: unspecified Qualified Code(s): I42.9 - Cardiomyopathy , unspecified (6) Hypothyroid Code(s): E03.9 - HYPOTHYROIDISM, UNSPECIFIED Qualifiers: Hypothyroidism type: unspecified Qualified Code(s): E03.9 - Hypothyroidism , unspecified (7) ICD (implantable cardioverter-defibrillator) in place Code(s): Z95.810 - PRESENCE OF AUTOMATIC (IMPLANTABLE) CARDIAC DEFIBRILLATOR (8) Pericardial effusion Code(s): I31.3 - PERICARDIAL EFFUSION (NONINFLAMMATORY) plan will start iv abx patient going to or tomorrow rest continue current mgmt dialysis
--- NOTE | 2017-09-11 21:55 | CONSULT ---
Consult - text type - Consultation Consultation Note: Patient known to me. This was a planned admission for his surgical debridement of his right foot. present during visit. Patient had questions about limb and propsed procedure. vss, Tmax 97.7 wbc=3.5, INR=1.3, +gangrenous changes of forefoot including toes remaining toes 2&3, demarcating around lateral aspect 1st ray, -mal odor, +dry, gangarene right foot Planned procedure is debridement of necrotic bine and soft tissue with possible TMA. Patient verbally and written consent given after answering all question. Patient fully understood all risks benefits and alternatives and consented. Betadine dressing right foot. Type and screen, NPO after midnight. present throughout visit. Scheduled for 10am. Read and appreciated vascular procedure that was done earlier this month. ID on case.
[2017-09-11] MEDS ORDERED: DEXTROSE IV SCH (22:00)
[2017-09-11] MEDS ORDERED: TAZOBACTAM IV SCH (22:00)
[2017-09-11] MEDS ORDERED: PIPERACILLIN IV SCH (22:00)
[2017-09-11] MEDS ORDERED: SENNOSIDES 8.6MG TABLET (FP) PO SCH (22:00)
[2017-09-11] MEDS ORDERED: [UNRECOGNIZED DRUG - OTHER] IV SCH (22:00)
[2017-09-11] MEDS: SACUBITRIL/VALSARTAN 24 MG-26 MG TABLET PO SCH (23:18)
[2017-09-11] MEDS: CLOTRIMAZOLE/BETAMET DIPROP 15 GM TUBE TP SCH (23:18)
[2017-09-12] MEDS ORDERED: DEXTROSE 5%-WATER - 50 ML IVPB ONE ×3 (01:59→17:37)
[2017-09-12] MEDS ORDERED: PIPERACILLIN/TAZOBACTAM 2.25 GM VIAL IVPB ONE ×3 (01:59→17:36)
[2017-09-12] MEDS: PIPERACILLIN/TAZOB 2.25 GM 2.25 GM in DEXTROSE 5%-WATER - 50 ML IVPB SCH ×3 (02:30→17:49)
[2017-09-12 06:08] LABS: HBSAG SCREEN Negative (Negative); HEP B CORE AB, TOT Negative (Negative)
[2017-09-12] MEDS: INSULIN SLIDING SCALE (NOVOLOG) 1 VIAL SQ SCH ×3 (06:18→17:47)
[2017-09-12] MEDS ORDERED: LEVOTHYROXINE NA 75 MCG TABLET (FP) PO SCH (07:00)
[2017-09-12 07:14] LABS: INR 1.47 (0.83-1.09); PROTHROMBIN TIME (PATIENT) 16.6 SEC (9.7-13.0)
[2017-09-12] MEDS ORDERED: metoPROLOL SUCCINATE 25 MG TAB.SR.24H (FP) PO SCH (10:00)
[2017-09-12] MEDS ORDERED: THIAMINE HCL 100 MG TABLET (FP) PO SCH (10:00)
[2017-09-12] MEDS ORDERED: VITAMIN B COMP W-C 1 EA TABLET PO SCH (10:00)
[2017-09-12] MEDS ORDERED: SENNOSIDES/DOCUSATE COMBO (SENNA PLUS) TABLET (UD) PO SCH (10:00)
[2017-09-12] MEDS ORDERED: GLUCOSAMINE SULFATE DIPOT CHLR PO SCH (10:00)
--- NOTE | 2017-09-12 10:17 | CON.CARD ---
Consult Consult Specialty:: Cardiology Referred by:: Crystal Middleton MD Reason for Consultation:: Cardiac evaluation and clearance - History of Present Illness Chief Complaint: For right foot debridement and possible TMA History of Present Illness: Patient is a 72 year old male with underlying history of ESRD on HD (es, Th , Sat), dilated cardiomyopathy with severe LV systolic dysfunctin, s/p ICD, DM, HTN, AF, PAD and hypothyroidism who presents for right foot debridement and possible TMA. He also has history of colon CA s/p chemotherapy and recently admitted in July with hypothesion and had toe amputation. 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 Echocardiography in July revealed moderate pericardial effusion without evidence of tamponade and severely reduced LV systolic function. Echocardiography was repeated today. He denies chest pain, SOB or palpitations. He denies paroxysmal nocturnal dyspnea or orthopnea. He denies fever or chills. He denies headache but complained of dizziness and possible vertigo this am. 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 Ghassan Durant 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 Medical History PESTICIDE APPLICATOR: Yes: Peripheral Neuropathy Cardio/Vascular: Yes: AFIB, CAD, HTN Pulmonary: Yes: COPD, Pulmonary Embolus Gastrointestinal: Yes: Cancer (COLON CA S/P chemotherapy), Other Renal/: Yes: Renal Failure, Hemodialysis Musculoskeletal: Yes: Other (RIGHT ANKLE/FOOT PAIN 10/10 WITH RIGHT LATERAL METATARSAL ULCER W DRAINAGE) Endocrine: Yes: Diabetes Mellitus - Past Surgical History Past Surgical History: Yes: AICD, Amputation, AV Fistula/Graft - Alcohol/Substance Use Hx Alcohol Use: No (quit 1981) - Smoking History Smoking history: Former smoker Have you smoked in the past 12 months: No If you are a former smoker, when did you quit?: 1981 - Social History History of Recent Travel: No Home Medications - Allergies Allergies/Adverse Reactions: Allergies Allergy/AdvReac Type Severity Reaction Status Date / Time No Known Drug Allergies Allergy Verified 09/11/17 09:55 - Home Medications Home Medications: Ambulatory Orders Acetaminophen 650 mg PO Q6H PRN 09/11/17 Clopidogrel Bisulfate [Plavix -] 75 mg PO DAILY 09/11/17 Clotrimazole/Betamet Diprop [Lotrisone Cream (Small Tube)] 1 applic TP BID 09/11 Glucosamine Sulfate Dipot Chlr [Glucosamine] 500 mg PO DAILY 09/11/17 Levothyroxine [Synthroid -] 75 mcg PO DAILY 09/11/17 Linagliptin [Tradjenta] 5 mg PO DAILY 09/11/17 Melatonin 5 mg PO HS PRN 09/11/17 Metoprolol Succinate 12.5 mg PO DAILY 09/11/17 Oxycodone HCl/Acetaminophen [Percocet 5-325 mg Tablet] 1 tab PO Q8H PRN Ddxugvajtzvq-Itlg-Ajexnpqh,Iso [Zosyn 2.25 gm Pre-Mix Bag] 2.25 gm IV TID Sacubitril/Valsartan [Entresto 24 mg-26 mg Tablet] 1 each PO BID 09/11/17 Sennosides [Senna] 2 tab PO HS 09/11/17 Sennosides/Docusate Sodium [Senexon-S Tablet] 1 each PO DAILY 09/11/17 Thiamine HCl [B-1] 100 mg PO DAILY 09/11/17 Vitamin B Comp W-C [Nephro-Fer -] 1 tablet PO DAILY 09/11/17 Warfarin Sodium [Coumadin] 4.5 mg PO HS 09/11/17 Review of Systems - Review of Systems Constitutional: denies: Chills, Fever Cardiovascular: denies: Chest Pain, Palpitations, Shortness of Breath Respiratory: denies: Cough, Hemoptysis, Orthopnea Gastrointestinal: denies: Abdominal Pain, Constipation, Diarrhea, Melena, Nausea , Rectal Bleeding, Vomiting Genitourinary: denies: Dysuria, Hematuria Neurological: reports: Dizziness. denies: Headache, Seizure, Syncope Vital Signs: Vital Signs Temperature 98.9 F 09/12/17 05:50 Pulse Rate 66 09/12/17 05:50 Respiratory Rate 18 09/12/17 05:50 Blood Pressure 102/60 09/12/17 05:50 O2 Sat by Pulse Oximetry (%) 98 09/11/17 21:00 Eyes: Yes: PERRL HENT: Yes: Atraumatic Neck: Yes: Supple Respiratory: Yes: CTA Bilaterally Gastrointestinal: Yes: Normal Bowel Sounds, Soft. No: Tenderness Cardiovascular: Yes: Regular Rate and Rhythm JVD: No Carotid Bruit: No PMI: Non-Displaced Heart Sounds: Yes: S1, S2 Murmur: Yes: Systolic Murmur, Grade 1 Edema: No - Other Data Labs, Other Data: CBC, BMP 09/11/17 11:05 09/11/17 11:05 INR, PTT INR 1.47 (0.83-1.09) 09/12/17 06:10 Laboratory Results - last 24 hr 09/11/17 09/11/17 09/11/17 11:05 11:05 11:05 WBC 3.5 L RBC 3.80 L Hgb 11.2 L Hct 34.6 L MCV 90.9 MCH 29.6 MCHC 32.5 RDW 19.4 H Plt Count 120 L D MPV 9.9 Absolute Neuts (auto) 2.0 Total Counted 100 Neutrophils % 55.8 Neutrophils % (Manual) 63.0 D Band Neutrophils % 1.0 Lymphocytes % 15.6 Lymphocytes % (Manual) 13.0 D Monocytes % 20.8 H Monocytes % (Manual) 18 H Eosinophils % 6.4 H Eosinophils % (Manual) 5.0 H D Basophils % 1.4 Nucleated RBC % 0 Anisocytosis 1+ Macrocytosis 1+ Ovalocytes 1+ PT with INR 15.00 H INR 1.33 H Sodium 130 L Potassium 4.7 D Chloride 93 L Carbon Dioxide 26 Anion Gap 11 BUN 22 H Creatinine 7.3 H Creat Clearance w eGFR 7.43 POC Glucometer Random Glucose 85 Hemoglobin A1c % Calcium 8.8 Total Bilirubin 0.9 AST 69 H D ALT 16 D Alkaline Phosphatase 83 D Total Protein 8.4 H Albumin 2.7 L Hepatitis A Ab Total Hep Bs Antigen Hep Bs Antibody Hep B Core Total Ab Hep C Ab Diagnostic Hepatitis C RNA HCV RNA PCR log commercial helicopter 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 use: without usp use 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 complication status: without complication Qualified Code(s): E11.9 - Type 2 diabetes mellitus without complications (3) ESRD (end stage renal disease) Code(s): N18.6 - END STAGE RENAL DISEASE (4) Osteomyelitis Code(s): M86.9 - OSTEOMYELITIS, UNSPECIFIED Qualifiers: Osteomyelitis type: other Osteomyelitis location: foot Laterality: right Qualified Code(s): M86.8X7 - Other osteomyelitis, ankle and foot (5) Amputated toe of right foot Code(s): Z89.421 - ACQUIRED ABSENCE OF OTHER RIGHT TOE(S) (6) Atrial fibrillation Code(s): I48.91 - UNSPECIFIED ATRIAL FIBRILLATION Qualifiers: Atrial fibrillation type: permanent Qualified Code(s): I48.2 - Chronic atrial fibrillation (7) Cardiomyopathy Code(s): I42.9 - CARDIOMYOPATHY, UNSPECIFIED Qualifiers: Cardiomyopathy type: unspecified Qualified Code(s): I42.9 - Cardiomyopathy , unspecified (8) Cellulitis of right lower extremity Code(s): L03.115 - CELLULITIS OF RIGHT LOWER LIMB (9) Diabetic foot ulcer Code(s): E11.621 - TYPE 2 DIABETES MELLITUS WITH FOOT ULCER; L97.509 - NON- PRESSURE CHRONIC ULCER OTH PRT UNSP FOOT W UNSP SEVERITY (10) Hypothyroid Code(s): E03.9 - HYPOTHYROIDISM, UNSPECIFIED Qualifiers: Hypothyroidism type: unspecified Qualified Code(s): E03.9 - Hypothyroidism , unspecified (11) ICD (implantable cardioverter-defibrillator) in place Code(s): Z95.810 - PRESENCE OF AUTOMATIC (IMPLANTABLE) CARDIAC DEFIBRILLATOR (12) Pericardial effusion Code(s): I31.3 - PERICARDIAL EFFUSION (NONINFLAMMATORY) (13) Status post peripheral artery angioplasty Code(s): Z98.62 - PERIPHERAL VASCULAR ANGIOPLASTY STATUS Assessment/Plan 1. Peripheral artery disease and history of osteomyelitis for debridement and possible TMA 2. ESRD on HD 3. AF 4. Dilated cardiomyopathy with LV systolic dysfunction s/p ICD 5. DM 6. HTN 7. Pericardial effusion 8. Hypothyroidism 9. History of colon CA s/p chemotherapy PLAN: 1. No absolute contraindication in proceeding with foot surgery in view of absence of ischemic symptoms, decompensated congestive heart failure or malignant arrhythmias. Post operative cardiac enzymes and ECG recommended 2. Continue Metoprolol 3. Continue Entresto and monitor renal function and electrolytes 4. HD as per Renal service 5. Echocardiography was reviewed and does not show any changes compared to study in July of this year. Further evaluation of pericardial effusion is to follow Further plans are to follow Jagdeep Booker MD
[2017-09-12] MEDS: CLOTRIMAZOLE/BETAMET DIPROP 15 GM TUBE TP SCH ×2 (10:47→22:17)
[2017-09-12] MEDS: SACUBITRIL/VALSARTAN 24 MG-26 MG TABLET PO SCH ×2 (10:47→22:17)
--- NOTE | 2017-09-12 11:14 | ECHO ---
Name: BETTYE VALERIO Exam:Adult Echocardiogram Study Date: 09/12/2017 08:51 AM Age: 72 yrs Reason For Study: Pericardial Effusion Height: 70 in Weight: 260 lb BSA: 2.3 m2 MMode/2D Measurements & Calculations IVSd: 1.2 cm LA dimension: 5.4 cm LVIDd: 6.0 cm LVIDs: 4.8 cm LVPWd: 0.95 cm EDV(Teich): 182.0 ml RV S Mitchell: 15.0 cm/sec ESV(Teich): 107.4 ml Doppler Measurements & Calculations MV E max mitchell: 116.3 cm/sec Ao V2 max: 148.3 cm/sec MV A max mitchell: 28.0 cm/sec Ao max P.8 mmHg MV E/A: 4.2 Ao V2 mean: 94.8 cm/sec MV dec time: 0.22 sec Ao mean P.2 mmHg Ao V2 VTI: 29.4 cm AI P1/2t: 500.4 msec AI max mitchell: 336.9 cm/sec LV V1 max P.2 mmHg AI max P.4 mmHg LV V1 mean P.2 mmHg LV V1 max: 74.0 cm/sec AI dec slope: 197.2 cm/sec2 LV V1 mean: 52.0 cm/sec LV V1 VTI: 14.3 cm MR max mitchell: 272.3 cm/sec TR max mitchell: 308.4 cm/sec MR max P.8 mmHg TR max P.1 mmHg PI end-d mitchell: 169.7 cm/sec Med Peak E' Mitchell: 1.6 cm/sec Med E/e': 72.5 Lat Peak E' Mitchell: 3.7 cm/sec Lat E/e': 31.3 Procedure A two-dimensional transthoracic echocardiogram with color flow and Doppler was performed. The patient was in normal sinus rhythm during the exam. Left Ventricle The left ventricle is mildly dilated. Left ventricular systolic function is severely reduced. There i s severe global hypokinesis of the left ventricle. Right Ventricle There is a pacemaker lead in the right ventricle. The right ventricle is mild to moderately dilated. The right ventricular systolic function is severely reduced. Atria The left atrium is severely dilated. The right atrium is moderately dilated. Mitral Valve There is moderate mitral valve thickening. There is mild mitral regurgitation. Tricuspid Valve The tricuspid valve is normal. There is mild to moderate tricuspid regurgitation. Right ventricular s ystolic pressure is elevated at 40-50mmHg. Aortic Valve There is mild aortic sclerosis.;. The aortic valve opens well. The aortic valve is trileaflet. Mild a ortic regurgitation. Pulmonic Valve The pulmonic valve is not well seen, but is grossly normal. Mild pulmonic valvular regurgitation. Great Vessels The aortic root is not well visualized but is probably normal size. The inferior vena cava is severil y dilated with a decrease in inspiratory collapse. Pericardium/Pleura There is a moderate pericardial effusion. There are no echocardiographic indications of cardiac tampo nade. Interpretation Summary There is a moderate pericardial effusion. There are no echocardiographic indications of cardiac tamponade. The left ventricle is mildly dilated. Left ventricular systolic function is severely reduced. There is severe global hypokinesis of the left ventricle. There is a pacemaker lead in the right ventricle. The right ventricle is mild to moderately dilated. The right ventricular systolic function is severely reduced. The right atrium is moderately dilated. The left atrium is severely dilated. There is moderate mitral valve thickening. There is mild mitral regurgitation. There is mild to moderate tricuspid regurgitation. Right ventricular systolic pressure is elevated at 40-50mmHg. There is mild aortic sclerosis.; Mild aortic regurgitation. The inferior vena cava is severily dilated with a decrease in inspiratory collapse MD Bigg Leong 09/12/2017 11:13 AM
[2017-09-12] MEDS ORDERED: DEXAMETHASONE SOD PHOSPHATE 4 MG/1 ML VIAL ONE (11:32)
[2017-09-12] MEDS ORDERED: LIDOCAINE HCL 1%, 10 MG/ML (20ML VIAL) ONE ×2 (11:32→12:15)
[2017-09-12] MEDS ORDERED: BUPIVACAINE HCL/PF 0.5% (5MG/ML) 10 ML VIAL ONE (11:32)
[2017-09-12] MEDS ORDERED: MIDAZOLAM HCL 2 MG/2 ML SINGLE DOSE VIAL ONE ×2 (11:38→12:36)
[2017-09-12] MEDS ORDERED: SUCCINYLCHOLINE CHLORIDE 200 MG/10 ML VIAL ONE (11:38)
[2017-09-12] MEDS ORDERED: BUPIVACAINE HCL/PF 0.5% (5MG/ML) 10 ML VIAL IJ ONE (12:26)
[2017-09-12] MEDS ORDERED: LIDOCAINE HCL 1%, 10 MG/ML (50 mL VIAL) IJ ONE (12:26)
--- NOTE | 2017-09-12 12:41 | PN ---
Progress Note (short form) - Note Progress Note: s/p surgery to foot examined in recovery feeling well Vitals and labs noted S1 S2 RRR lungs decreased Abd soft, NT No edema Rt foot dressing in place PLAN IV antibiotics pain control HD per renal
[2017-09-12] MEDS ORDERED: BUPIVACAINE HCL/PF (5 MG/ML) 30 ML VIAL IJ ONE (13:32)
[2017-09-12] MEDS ORDERED: ONDANSETRON 4 MG/2 ML VIAL IVPUSH PRN ×2 (13:49→14:28)
--- NOTE | 2017-09-12 14:24 | OP ---
DATE OF OPERATION: 09/11/2017 PREOPERATIVE DIAGNOSIS: Right foot gangrene. POSTOPERATIVE DIAGNOSIS: Right foot gangrene. OPERATION: Transmetatarsal amputation of the right foot 2nd, 3rd, 4th, and 5th metatarsals. ANESTHESIA: MAC with local. SURGEON: Adrianne Davila DPM COMMUNITY SERVICES COORDINATOR: Ade, PGY-3 HEMOSTASIS: None. ESTIMATED BLOOD LOSS: 50 mL MATERIAL: Nylon 2-0. PATHOLOGY: Bone and soft tissue of the right foot. The patient was brought to the operating room and placed on the operating table in the supine position. Following anesthesia, local anesthesia was obtained utilizing a 1:1 mixture of total of 20 mL of 1% lidocaine and 0.5% Marcaine plain. The foot was then scrubbed, prepped, and draped in the usual aseptic manner. Attention was directed to the right foot where a previous amputation of the 4th and 5th toes of the right foot was noted with deep nylon suture, and the right foot is noted to be gangrenous. After making the incision on the right dorsal aspect of the right foot, incision was deepened to the joint of the right foot 2nd MPJ and the 3rd MPJ. Articulation is disarticulated at the 2nd toe and the 3rd toe and passed to Pathology. Then, incision was deepened through the periosteum of the 2nd, 3rd, 4th, and 5th metatarsals of the right foot, and utilizing the oscillating saw, 2nd, 3rd, 4th, and 5th metatarsal shafts of the right foot were resected and passed to Pathology. All the nonviable tissues and fibrotic tissues were removed of the right foot, and healthy bleeding was noted of the amputation site level of the right foot. The plantar flap was preserved and noted to be good. The amputation site was copiously irrigated with sterile saline and antibiotic solution deeply and superficially carefully and again removing all the necrotic and nonviable tissues. The amputation site was then again flushed in copious amount of sterile saline. Skin was closed with 2-0 nylon sutures and packed with the Iodoform packing on the amputation site. It was noted that the stump looked good, and there was no skin tension. The operation site was then dressed with Adaptic, 4 x 4, combine dressing and Miriam. The patient tolerated the procedure well and was transferred to the recovery room with all vital signs stable. Adrianne Davila DPM [id number]
--- NOTE | 2017-09-12 14:49 | PN ---
Progress Note, Physician History of Present Illness: stable no complaints going to or otherwise comfortable - Current Medication List Current Medications: Active Medications Acetaminophen (Tylenol -) 650 mg PO Q6H PRN PRN Reason: PAIN Acetaminophen (Tylenol -) 325 mg PO Q8H PRN PRN Reason: PAIN SCALE 6-10 Clotrimazole (Lotrisone Cream (Small Tube)) 1 applic TP BID [facility] Piperacillin Sod/Tazobactam (Sod 2.25 gm/ Dextrose) 50 mls @ 100 mls/hr IVPB Q8H-IV VIRAJ; Protocol Insulin Aspart (Novolog Vial Sliding Scale -) 1 vial SQ TIDAC VIRAJ; Protocol Levothyroxine Sodium (Synthroid -) 75 mcg PO ACBK [facility] Melatonin (Melatonin) 5 mg PO HS PRN PRN Reason: INSOMNIA Metoprolol Succinate (Toprol Xl -) 12.5 mg PO DAILY [facility] Multivit/Ca Carb/B Cmplx/FA/Prenat (Nephro-Fer -) 1 tablet PO DAILY [facility] Non-Formulary Medication (Linagliptin [Tradjenta]) 5 mg PO DAILY [facility] Ondansetron HCl (Zofran Injection) 4 mg IVPUSH Q6H PRN PRN Reason: NAUSEA AND/OR VOMITING Oxycodone HCl (Roxicodone -) 5 mg PO Q8H PRN PRN Reason: PAIN SCALE 6-10 Sacubitril/Valsartan (Entresto 24 Mg-26 Mg Tablet) 1 tab PO BID [facility] Senna (Senna -) 2 tab PO HS [facility] Senna/Docusate Sodium (Pericolace -) 1 tablet PO DAILY [facility] Thiamine HCl (Vitamin B1 -) 100 mg PO DAILY [facility] - Objective Vital Signs: Vital Signs Temperature 98.9 F 09/12/17 05:50 Pulse Rate 66 09/12/17 05:50 Respiratory Rate 18 09/12/17 05:50 Blood Pressure 102/60 09/12/17 05:50 O2 Sat by Pulse Oximetry (%) 98 09/11/17 21:00 Constitutional: Yes: No Distress, Calm Cardiovascular: Yes: Regular Rate and Rhythm Respiratory: Yes: Regular, CTA Bilaterally Gastrointestinal: Yes: Normal Bowel Sounds, Soft Musculoskeletal: Yes: WNL Extremities: Yes: Other Wound/Incision: Yes: Dressing Dry and Intact Neurological: Yes: Alert, Oriented Psychiatric: Yes: Alert, Oriented Labs: CBC, BMP 09/11/17 11:05 09/11/17 11:05 INR, PTT INR 1.47 (0.83-1.09) 09/12/17 06:10 Assessment/Plan Problem List - Problems (1) ESRD (end stage renal disease) Code(s): N18.6 - END STAGE RENAL DISEASE (2) Osteomyelitis Code(s): M86.9 - OSTEOMYELITIS, UNSPECIFIED Qualifiers: Osteomyelitis type: other Osteomyelitis location: foot Laterality: right Qualified Code(s): M86.8X7 - Other osteomyelitis, ankle and foot (3) Amputated toe of right foot Code(s): Z89.421 - ACQUIRED ABSENCE OF OTHER RIGHT TOE(S) (4) Atrial fibrillation Code(s): I48.91 - UNSPECIFIED ATRIAL FIBRILLATION Qualifiers: (5) Cardiomyopathy Code(s): I42.9 - CARDIOMYOPATHY, UNSPECIFIED Qualifiers: Cardiomyopathy type: unspecified Qualified Code(s): I42.9 - Cardiomyopathy , unspecified (6) Hypothyroid Code(s): E03.9 - HYPOTHYROIDISM, UNSPECIFIED Qualifiers: Hypothyroidism type: unspecified Qualified Code(s): E03.9 - Hypothyroidism , unspecified (7) ICD (implantable cardioverter-defibrillator) in place Code(s): Z95.810 - PRESENCE OF AUTOMATIC (IMPLANTABLE) CARDIAC DEFIBRILLATOR (8) Pericardial effusion Code(s): I31.3 - PERICARDIAL EFFUSION (NONINFLAMMATORY) plan continue iv abx for or today continue current mgmt rest as per the team
--- NOTE | 2017-09-12 15:30 | OP ---
DATE OF OPERATION: DATE OF DICTATION: 09/12/2017 PREOPERATIVE DIAGNOSIS: Right foot gangrene. POSTOPERATIVE DIAGNOSIS: Right foot gangrene. PROCEDURE: Transmetatarsal amputation of the right foot 2nd, 3rd, 4th and 5th metatarsals. ANESTHESIA: MAC with local. MAINTENANCE PERSON: SAIDA Booker3 HEMOSTASIS: None. ESTIMATED BLOOD LOSS: 50 mL MATERIAL: 2-0 nylon suture. PATHOLOGY: Bone and soft tissue. PROCEDURE: The patient was brought to the operating room and placed on the operating room table in the supine position. Following anesthesia, local anesthesia was obtained utilizing 30 mL of 1:1% lidocaine and 0.5% Marcaine plain for the ankle block of the right foot. The foot was then scrubbed, prepped and draped in the usual aseptic manner. Attention was then directed to the right foot where previous amputation surgery of the 4th and 5th toes was noted with nylon sutures. The incision was deepened through the dorsal aspect of the 2nd, 3rd, 4th and 5th metatarsals. All the metatarsal heads and shafts were visualized and the dorsal skin and tissue had been previously removed. The plantar soft tissue appeared partly viable and a fairly large ulceration was visualized over the anterior aspect of the right foot. After resecting the periosteum and the tendons of the right foot, an oscillating saw was used to resect the shaft of the right foot 2nd, 3rd, 4th and 5th metatarsals. The bone was removed and all the necrotic and nonviable tissues were removed sharply and passed to Pathology. All viable soft tissue was left. All the metatarsal was disarticulated and removed from the operative field. The plantar flap, which was preserved, was noted to be good. The amputation site was copiously irrigated with sterile saline with the antibiotic solution in it and further debrided deeply and superficially, carefully removing all the necrotic and nonviable tissues further. The amputation site was then again flushed with a copious amount of sterile saline with antibiotic. The skin was closed with 2-0 nylon. Iodoform packing was inserted into the right foot amputation site. The operation site was then dressed with Adaptic, 4 x 4 and combined dressing and Miriam. The patient tolerated the procedure well and was transferred to the recovery room with all vital signs stable. SAMUEL Cunningham/[id number]
--- NOTE | 2017-09-12 15:55 | OP ---
Operative Note - Note: Operative Date: 09/12/17 Pre-Operative Diagnosis: gangarene right forefoot Operation: debridement of bone and soft tissue with transmetatarsal amputation 2 ,3,4,5 right foot with retention sutures and 1/4 iodoform packing Findings: necrotic bone and soft tissue Post-Operative Diagnosis: Same as Pre-op Surgeon: Adrianne Davila Anesthesia: Local, MAC Specimens Removed: bone soft tissue Estimated Blood Loss (mls): 75 Instrument used (Debridements only): knife, saw Operative Report Dictated: Yes
--- NOTE | 2017-09-12 15:56 | PN ---
Progress Note, Physician History of Present Illness: Pt seen and examined at bedside. He is awake and alert. He denies shortness of breath. He tolerated surgery. - Current Medication List Current Medications: Active Medications Acetaminophen (Tylenol -) 650 mg PO Q6H PRN PRN Reason: PAIN 1-5 Acetaminophen (Tylenol -) 325 mg PO Q8H PRN PRN Reason: PAIN SCALE 6-10 Clotrimazole (Lotrisone Cream (Small Tube)) 1 applic TP BID [facility] Piperacillin Sod/Tazobactam (Sod 2.25 gm/ Dextrose) 50 mls @ 100 mls/hr IVPB Q8H-IV [facility]; Protocol Insulin Aspart (Novolog Vial Sliding Scale -) 1 vial SQ TIDAC [facility]; Protocol Levothyroxine Sodium (Synthroid -) 75 mcg PO ACBK [facility] Melatonin (Melatonin) 5 mg PO HS PRN PRN Reason: INSOMNIA Metoprolol Succinate (Toprol Xl -) 12.5 mg PO DAILY [facility] Multivit/Ca Carb/B Cmplx/FA/Prenat (Nephro-Fer -) 1 tablet PO DAILY [facility] Ondansetron HCl (Zofran Injection) 4 mg IVPUSH Q6H PRN PRN Reason: NAUSEA AND/OR VOMITING Oxycodone HCl (Roxicodone -) 5 mg PO Q8H PRN PRN Reason: PAIN SCALE 6-10 Sacubitril/Valsartan (Entresto 24 Mg-26 Mg Tablet) 1 tab PO BID [facility] Senna (Senna -) 2 tab PO HS [facility] Senna/Docusate Sodium (Pericolace -) 1 tablet PO DAILY [facility] Sitagliptin Phosphate (Januvia -) 25 mg PO 0700 [facility] Thiamine HCl (Vitamin B1 -) 100 mg PO DAILY [facility] - Objective Vital Signs: Vital Signs Temperature 97.6 F 09/12/17 14:40 Pulse Rate 65 09/12/17 14:40 Respiratory Rate 18 09/12/17 14:40 Blood Pressure 118/66 09/12/17 14:40 O2 Sat by Pulse Oximetry (%) 100 09/12/17 14:40 Constitutional: Yes: Calm Eyes: Yes: Conjunctiva Clear HENT: Yes: Atraumatic Neck: Yes: Supple Cardiovascular: Yes: S1, S2 Respiratory: Yes: On Nasal O2 Gastrointestinal: Yes: Soft Genitourinary: Yes: WNL Musculoskeletal: Yes: WNL Edema: No Wound/Incision: Yes: Dressing Dry and Intact Neurological: Yes: Oriented Psychiatric: Yes: Oriented Labs: CBC, BMP 09/11/17 11:05 09/11/17 11:05 INR, PTT INR 1.47 (0.83-1.09) 09/12/17 06:10 Problem List - Problems (1) ESRD (end stage renal disease) Code(s): N18.6 - END STAGE RENAL DISEASE (2) Osteomyelitis Code(s): M86.9 - OSTEOMYELITIS, UNSPECIFIED Qualifiers: Osteomyelitis type: other Osteomyelitis location: foot Laterality: right Qualified Code(s): M86.8X7 - Other osteomyelitis, ankle and foot (3) Atrial fibrillation Code(s): I48.91 - UNSPECIFIED ATRIAL FIBRILLATION Qualifiers: Atrial fibrillation type: permanent Qualified Code(s): I48.2 - Chronic atrial fibrillation Assessment/Plan Current Medications Generic Name Dose Route Start Last Admin Trade Name Freq PRN Reason Stop Dose Admin Acetaminophen 650 mg 09/12/17 14:28 Tylenol - PO Q6H PRN PAIN 1-5 Acetaminophen 325 mg 09/12/17 14:28 Tylenol - PO Q8H PRN PAIN SCALE 6-10 Clotrimazole 1 applic 09/12/17 22:00 Lotrisone Cream (Small Tube) TP BID [facility] Piperacillin Sod/Tazobactam 50 mls @ 100 mls/hr 09/12/17 18:00 Sod 2.25 gm/ Dextrose IVPB Q8H-IV [facility] Protocol Insulin Aspart 1 vial 09/12/17 16:30 Novolog Vial Sliding Scale - SQ TIDAC [facility] Protocol Levothyroxine Sodium 75 mcg 09/13/17 07:00 Synthroid - PO ACBK [facility] Melatonin 5 mg 09/12/17 22:00 Melatonin PO HS PRN INSOMNIA Metoprolol Succinate 12.5 mg 09/13/17 10:00 Toprol Xl - PO DAILY [facility] Multivit/Ca Carb/B Cmplx/FA/Prenat 1 tablet 09/13/17 10:00 Nephro-Fer - PO DAILY [facility] Ondansetron HCl 4 mg 09/12/17 14:28 Zofran Injection IVPUSH Q6H PRN NAUSEA AND/OR VOMITING Oxycodone HCl 5 mg 09/12/17 14:28 Roxicodone - PO Q8H PRN PAIN SCALE 6-10 Sacubitril/Valsartan 1 tab 09/12/17 22:00 Entresto 24 Mg-26 Mg Tablet PO BID [facility] Senna 2 tab 09/12/17 22:00 Senna - PO HS [facility] Senna/Docusate Sodium 1 tablet 09/13/17 10:00 Pericolace - PO DAILY [facility] Sitagliptin Phosphate 25 mg 09/13/17 07:00 Januvia - PO 0700 [facility] Thiamine HCl 100 mg 09/13/17 10:00 Vitamin B1 - PO DAILY [facility] Impression 1. ESRD 2. hx pericardial effusion 3. hx pneumopericardium 4. hypothyroidism 5. a-fib 6. hypotension 7. hx of colon cancer 8. CHF 9. DM 10. hx of PE 11. CAD 12. foot ulcer Plan - pt tolerated surgery - cardiology follow up for pericardial effusion - will evaluate for HD tomorrow, pt on TTS schedule - abx per ID - repeat labs in am - cont wound care to foot
[2017-09-12] MEDS: SENNOSIDES 8.6MG TABLET (FP) PO SCH (21:49)
[2017-09-12] MEDS: oxyCODONE HCL 5 MG TABLET PO PRN (21:49)
[2017-09-12] MEDS: ACETAMINOPHEN 325 MG TABLET (FP) PO PRN (21:50)
[2017-09-12] MEDS: MELATONIN 5 MG TABLETS PO PRN (22:17)
[2017-09-13] MEDS ORDERED: DEXTROSE 5%-WATER - 50 ML IVPB ONE ×2 (02:19→17:00)
[2017-09-13] MEDS ORDERED: PIPERACILLIN/TAZOBACTAM 2.25 GM VIAL IVPB ONE ×2 (02:19→16:59)
[2017-09-13] MEDS: PIPERACILLIN/TAZOB 2.25 GM 2.25 GM in DEXTROSE 5%-WATER - 50 ML IVPB SCH ×3 (02:53→17:20)
[2017-09-13] MEDS: LEVOTHYROXINE NA 75 MCG TABLET (FP) PO SCH (06:19)
[2017-09-13] MEDS: ACETAMINOPHEN 325 MG TABLET (FP) PO PRN ×3 (06:19→21:23)
[2017-09-13] MEDS: INSULIN SLIDING SCALE (NOVOLOG) 1 VIAL SQ SCH ×3 (06:20→17:44)
[2017-09-13] MEDS: oxyCODONE HCL 5 MG TABLET PO PRN ×2 (06:20→17:21)
[2017-09-13] MEDS: sitaGLIPtin PHOSPHATE 25 MG TABLET (FP) PO SCH (06:20)
[2017-09-13 08:07] LABS: BASO % 1.7 % (0-2.0); EOS % 4.8 % (0-4.5); HEMATOCRIT 32.3 % (35.4-49); HEMOGLOBIN 10.5 GM/dL (11.7-16.9); LYMPH % 12.5 % (8-40); MCH 29.9 pg (25.7-33.7); MCHC 32.5 g/dl (32.0-35.9); MEAN CELL VOLUME 92.1 fl (80-96); MEAN PLT VOLUME 9.1 fl (7.5-11.1); MONO % 20.8 % (3.8-10.2); NEUT % 60.2 % (42.8-82.8); PLATELET COUNT 86 K/MM3 (134-434); RBC 3.51 M/mm3 (4.00-5.60); RDW 18.7 % (11.9-15.9); WHITE BLOOD COUNT 3.9 K/mm3 (4.0-10.0)
[2017-09-13] MEDS ORDERED: oxyCODONE HCL 5 MG TABLET PO ONE ×2 (08:36→13:30)
[2017-09-13 09:08] LABS: INR 1.38 (0.83-1.09); PROTHROMBIN TIME (PATIENT) 15.6 SEC (9.7-13.0)
[2017-09-13] MEDS ORDERED: morphine CARPU-JECT 2 MG/1 ML DISP.SYRIN IVPUSH ONE (09:15)
[2017-09-13] MEDS ORDERED: MORPHINE SULFATE 2 MG/ML VIAL IVPUSH ONE (09:15)
[2017-09-13 09:17] LABS: ANION GAP 10 (8-16); BLOOD UREA NITROGEN 19 mg/dL (7-18); CALCIUM 8.8 mg/dL (8.5-10.1); CHLORIDE 101 mmol/L (98-107); CO2 27 mmol/L (21-32); CREATININE 6.7 mg/dL (0.7-1.3); GLUCOSE,RANDOM 79 mg/dL (74-106); POTASSIUM 3.5 mmol/L (3.5-5.1); SODIUM 138 mmol/L (136-145)
[2017-09-13] MEDS ORDERED: SENNOSIDES/DOCUSATE COMBO (SENNA PLUS) TABLET (UD) PO SCH (10:00)
[2017-09-13] MEDS: SACUBITRIL/VALSARTAN 24 MG-26 MG TABLET PO SCH ×2 (11:00→21:15)
[2017-09-13] MEDS: CLOTRIMAZOLE/BETAMET DIPROP 15 GM TUBE TP SCH ×2 (11:00→23:00)
--- NOTE | 2017-09-13 11:44 | PN ---
Progress Note, Physician History of Present Illness: stable post op c/o of severe pain in the operated site getting dialysis - Current Medication List Current Medications: Active Medications Acetaminophen (Tylenol -) 650 mg PO Q6H PRN PRN Reason: PAIN 1-5 Acetaminophen (Tylenol -) 325 mg PO Q8H PRN PRN Reason: PAIN SCALE 6-10 Last Admin: 09/13/17 11:15 Dose: 325 mg Clotrimazole (Lotrisone Cream (Small Tube)) 1 applic TP BID [facility] Last Admin: 09/12/17 22:17 Dose: 1 applic Epoetin Hector (Epogen -) 5,000 unit IVPUSH ONCE ONE Stop: 09/13/17 09:03 Piperacillin Sod/Tazobactam (Sod 2.25 gm/ Dextrose) 50 mls @ 100 mls/hr IVPB Q8H-IV [facility]; Protocol Last Admin: 09/13/17 02:53 Dose: 100 mls/hr Sodium Chloride (Normal Saline -) 250 mls @ 3,000 mls/hr IV PRN PRN PRN Reason: Hypotension during Dialysis Stop: 09/14/17 09:02 Insulin Aspart (Novolog Vial Sliding Scale -) 1 vial SQ TIDAC [facility]; Protocol Last Admin: 09/13/17 06:20 Dose: Not Given Levothyroxine Sodium (Synthroid -) 75 mcg PO ACBK [facility] Last Admin: 09/13/17 06:19 Dose: 75 mcg Melatonin (Melatonin) 5 mg PO HS PRN PRN Reason: INSOMNIA Last Admin: 09/12/17 22:17 Dose: 5 mg Metoprolol Succinate (Toprol Xl -) 12.5 mg PO DAILY [facility] Multivit/Ca Carb/B Cmplx/FA/Prenat (Nephro-Fer -) 1 tablet PO DAILY [facility] Ondansetron HCl (Zofran Injection) 4 mg IVPUSH Q6H PRN PRN Reason: NAUSEA AND/OR VOMITING Oxycodone HCl (Roxicodone -) 5 mg PO Q8H PRN PRN Reason: PAIN SCALE 6-10 Last Admin: 09/13/17 06:20 Dose: 5 mg Sacubitril/Valsartan (Entresto 24 Mg-26 Mg Tablet) 1 tab PO BID [facility] Last Admin: 09/12/17 22:17 Dose: 1 tab Senna (Senna -) 2 tab PO HS [facility] Last Admin: 09/12/17 21:49 Dose: 2 tab Sitagliptin Phosphate (Januvia -) 25 mg PO 0700 [facility] Last Admin: 09/13/17 06:20 Dose: 25 mg Thiamine HCl (Vitamin B1 -) 100 mg PO DAILY [facility] - Objective Vital Signs: Vital Signs Temperature 98.5 F 09/13/17 06:00 Pulse Rate 65 09/13/17 06:00 Respiratory Rate 18 09/13/17 06:00 Blood Pressure 112/70 09/13/17 06:00 O2 Sat by Pulse Oximetry (%) 98 09/12/17 21:00 Constitutional: Yes: Calm, Moderate Distress Cardiovascular: Yes: Regular Rate and Rhythm Respiratory: Yes: Regular, CTA Bilaterally Musculoskeletal: Yes: Other Extremities: Yes: Other Wound/Incision: Yes: Dressing Dry and Intact Neurological: Yes: Alert, Oriented Psychiatric: Yes: Alert, Oriented Labs: CBC, BMP 09/13/17 07:30 09/13/17 07:30 INR, PTT INR 1.38 (0.83-1.09) 09/13/17 07:30 Assessment/Plan Problem List - Problems (1) ESRD (end stage renal disease) Code(s): N18.6 - END STAGE RENAL DISEASE (2) Osteomyelitis Code(s): M86.9 - OSTEOMYELITIS, UNSPECIFIED Qualifiers: Osteomyelitis type: other Osteomyelitis location: foot Laterality: right Qualified Code(s): M86.8X7 - Other osteomyelitis, ankle and foot (3) Amputated toe of right foot Code(s): Z89.421 - ACQUIRED ABSENCE OF OTHER RIGHT TOE(S) (4) Atrial fibrillation Code(s): I48.91 - UNSPECIFIED ATRIAL FIBRILLATION Qualifiers: (5) Cardiomyopathy Code(s): I42.9 - CARDIOMYOPATHY, UNSPECIFIED Qualifiers: Cardiomyopathy type: unspecified Qualified Code(s): I42.9 - Cardiomyopathy , unspecified (6) Hypothyroid Code(s): E03.9 - HYPOTHYROIDISM, UNSPECIFIED Qualifiers: Hypothyroidism type: unspecified Qualified Code(s): E03.9 - Hypothyroidism , unspecified (7) ICD (implantable cardioverter-defibrillator) in place Code(s): Z95.810 - PRESENCE OF AUTOMATIC (IMPLANTABLE) CARDIAC DEFIBRILLATOR (8) Pericardial effusion Code(s): I31.3 - PERICARDIAL EFFUSION (NONINFLAMMATORY) plan continue iv abx await for cx reports continue current mgmt rest as per the team
--- NOTE | 2017-09-13 12:25 | PN ---
Progress Note (short form) - Note Progress Note: examined in Dialysis spoke with Renal- concernes about moderte sized pericardial effusion-- unchanged after HD pt c/o severe pain in right foot Vital Signs - 24 hr 09/12/17 09/13/17 09/13/17 21:00 02:00 06:00 Temperature 98.2 F 98.5 F Pulse Rate 66 65 Respiratory 19 18 18 Rate Blood Pressure 96/61 112/70 O2 Sat by Pulse 98 Oximetry (%) 09/13/17 09/13/17 09/13/17 09:00 11:50 11:55 Temperature 98.2 F Pulse Rate 67 68 Respiratory 18 18 Rate Blood Pressure 114/65 113/69 O2 Sat by Pulse 99 Oximetry (%) 09/13/17 09/13/17 09/13/17 12:25 12:55 13:25 Temperature Pulse Rate 67 66 68 Respiratory 18 18 18 Rate Blood Pressure 126/70 133/90 118/81 O2 Sat by Pulse Oximetry (%) 09/13/17 09/13/17 09/13/17 13:55 14:25 14:55 Temperature Pulse Rate 65 66 65 Respiratory 18 18 18 Rate Blood Pressure 111/62 120/70 109/62 O2 Sat by Pulse Oximetry (%) 09/13/17 09/13/17 09/13/17 15:25 15:40 16:02 Temperature Pulse Rate 65 66 64 Respiratory 18 18 18 Rate Blood Pressure 110/63 116/62 120/72 O2 Sat by Pulse Oximetry (%) 09/13/17 18:00 Temperature 97.7 F Pulse Rate 69 Respiratory 20 Rate Blood Pressure 93/61 O2 Sat by Pulse Oximetry (%) Current Medications Generic Name Dose Route Start Last Admin Trade Name Freq PRN Reason Stop Dose Admin Acetaminophen 650 mg 09/12/17 14:28 Tylenol - PO Q6H PRN PAIN 1-5 Acetaminophen 325 mg 09/12/17 14:28 09/13/17 11:15 Tylenol - PO 325 mg Q8H PRN Administration PAIN SCALE 6-10 Clotrimazole 1 applic 09/12/17 22:00 09/13/17 11:00 Lotrisone Cream (Small Tube) TP Not Given BID [facility] Piperacillin Sod/Tazobactam 50 mls @ 100 mls/hr 09/12/17 18:00 09/13/17 17:20 Sod 2.25 gm/ Dextrose IVPB 100 mls/hr Q8H-IV [facility] Administration Protocol Sodium Chloride 250 mls @ 3,000 mls/hr 09/13/17 13:00 Normal Saline - IV 09/14/17 12:59 PRN PRN Hypotension during Dialysis Insulin Aspart 1 vial 09/12/17 16:30 09/13/17 17:44 Novolog Vial Sliding Scale - SQ Not Given TIDAC [facility] Protocol Levothyroxine Sodium 75 mcg 09/13/17 07:00 09/13/17 06:19 Synthroid - PO 75 mcg ACBK [facility] Administration Melatonin 5 mg 09/12/17 22:00 09/12/17 22:17 Melatonin PO 5 mg HS PRN Administration INSOMNIA Metoprolol Succinate 12.5 mg 09/13/17 10:00 09/13/17 17:36 Toprol Xl - PO Not Given DAILY [facility] Multivit/Ca Carb/B Cmplx/FA/Prenat 1 tablet 09/13/17 10:00 09/13/17 17:19 Nephro-Fer - PO 1 tablet DAILY [facility] Administration Ondansetron HCl 4 mg 09/12/17 14:28 Zofran Injection IVPUSH Q6H PRN NAUSEA AND/OR VOMITING Oxycodone HCl 10 mg 09/13/17 12:35 09/13/17 17:21 Roxicodone - PO 09/14/17 12:34 10 mg Q6H PRN Administration PAIN LEVEL 6-10 Sacubitril/Valsartan 1 tab 09/12/17 22:00 09/13/17 11:00 Entresto 24 Mg-26 Mg Tablet PO Not Given BID [facility] Senna 2 tab 09/12/17 22:00 09/12/17 21:49 Senna - PO 2 tab HS [facility] Administration Sitagliptin Phosphate 25 mg 09/13/17 07:00 09/13/17 06:20 Januvia - PO 25 mg 0700 [facility] Administration Thiamine HCl 100 mg 09/13/17 10:00 09/13/17 17:19 Vitamin B1 - PO 100 mg DAILY [facility] Administration Laboratory Results - last 24 hr 09/13/17 09/13/17 09/13/17 06:19 07:30 07:30 WBC 3.9 L RBC 3.51 L Hgb 10.5 L Hct 32.3 L MCV 92.1 MCH 29.9 MCHC 32.5 RDW 18.7 H Plt Count 86 L D MPV 9.1 Absolute Neuts (auto) 2.4 Total Counted 100 Neutrophils % 60.2 Neutrophils % (Manual) 68.0 Lymphocytes % 12.5 Lymphocytes % (Manual) 19.0 D Monocytes % 20.8 H Monocytes % (Manual) 11 H Eosinophils % 4.8 H Eosinophils % (Manual) 2.0 Basophils % 1.7 Nucleated RBC % 0 Platelet Estimate Decreased PT with INR 15.60 H* INR 1.38 Sodium Potassium Chloride Carbon Dioxide Anion Gap BUN Creatinine Creat Clearance w eGFR POC Glucometer 96 Random Glucose Calcium 09/13/17 09/13/17 07:30 17:42 WBC RBC Hgb Hct MCV MCH MCHC RDW Plt Count MPV Absolute Neuts (auto) Total Counted Neutrophils % Neutrophils % (Manual) Lymphocytes % Lymphocytes % (Manual) Monocytes % Monocytes % (Manual) Eosinophils % Eosinophils % (Manual) Basophils % Nucleated RBC % Platelet Estimate PT with INR INR Sodium 138 Potassium 3.5 D Chloride 101 Carbon Dioxide 27 Anion Gap 10 BUN 19 H Creatinine 6.7 H Creat Clearance w eGFR 8.20 POC Glucometer 115 Random Glucose 79 Calcium 8.8 Constitutional: Yes: No Distress, Calm Eyes: Yes: Conjunctiva Clear Neck: Yes: Supple Cardiovascular: Yes: Regular Rate and Rhythm Respiratory: Yes: CTA Bilaterally Gastrointestinal: Yes: Normal Bowel Sounds, Soft Edema: No Wound/Incision: Yes: Dressing Dry and Intact Neurological: Yes: Alert Psychiatric: Yes: Alert PLAN IV antibiotics resume AC pain control CT surgeon eval continue with meds
--- NOTE | 2017-09-13 12:26 | PN ---
Progress Note, Physician History of Present Illness: Pt seen and examined at bedside. He is awake and alert. He is going for HD today. He denies chest pain or shortness of breath. - Current Medication List Current Medications: Active Medications Acetaminophen (Tylenol -) 650 mg PO Q6H PRN PRN Reason: PAIN 1-5 Acetaminophen (Tylenol -) 325 mg PO Q8H PRN PRN Reason: PAIN SCALE 6-10 Last Admin: 09/13/17 11:15 Dose: 325 mg Clotrimazole (Lotrisone Cream (Small Tube)) 1 applic TP BID [facility] Last Admin: 09/12/17 22:17 Dose: 1 applic Epoetin Hector (Epogen -) 5,000 unit IVPUSH ONCE ONE Stop: 09/13/17 09:03 Piperacillin Sod/Tazobactam (Sod 2.25 gm/ Dextrose) 50 mls @ 100 mls/hr IVPB Q8H-IV [facility]; Protocol Last Admin: 09/13/17 02:53 Dose: 100 mls/hr Sodium Chloride (Normal Saline -) 250 mls @ 3,000 mls/hr IV PRN PRN PRN Reason: Hypotension during Dialysis Stop: 09/14/17 09:02 Insulin Aspart (Novolog Vial Sliding Scale -) 1 vial SQ TIDAC [facility]; Protocol Last Admin: 09/13/17 06:20 Dose: Not Given Levothyroxine Sodium (Synthroid -) 75 mcg PO ACBK [facility] Last Admin: 09/13/17 06:19 Dose: 75 mcg Melatonin (Melatonin) 5 mg PO HS PRN PRN Reason: INSOMNIA Last Admin: 09/12/17 22:17 Dose: 5 mg Metoprolol Succinate (Toprol Xl -) 12.5 mg PO DAILY [facility] Multivit/Ca Carb/B Cmplx/FA/Prenat (Nephro-Fer -) 1 tablet PO DAILY [facility] Ondansetron HCl (Zofran Injection) 4 mg IVPUSH Q6H PRN PRN Reason: NAUSEA AND/OR VOMITING Oxycodone/Acetaminophen (Percocet 5/325 -) 1 combo PO ONCE ONE Stop: 09/13/17 11:57 Sacubitril/Valsartan (Entresto 24 Mg-26 Mg Tablet) 1 tab PO BID [facility] Last Admin: 09/12/17 22:17 Dose: 1 tab Senna (Senna -) 2 tab PO HS [facility] Last Admin: 09/12/17 21:49 Dose: 2 tab Sitagliptin Phosphate (Januvia -) 25 mg PO 0700 [facility] Last Admin: 09/13/17 06:20 Dose: 25 mg Thiamine HCl (Vitamin B1 -) 100 mg PO DAILY [facility] - Objective Vital Signs: Vital Signs Temperature 98.2 F 09/13/17 11:50 Pulse Rate 68 09/13/17 11:55 Respiratory Rate 18 09/13/17 11:55 Blood Pressure 113/69 09/13/17 11:55 O2 Sat by Pulse Oximetry (%) 98 09/12/17 21:00 Constitutional: Yes: Calm Eyes: Yes: Conjunctiva Clear HENT: Yes: Atraumatic Neck: Yes: Supple Cardiovascular: Yes: S1, S2 Respiratory: Yes: On Nasal O2 Gastrointestinal: Yes: Soft Genitourinary: Yes: WNL Musculoskeletal: Yes: WNL Edema: Yes Edema: LLE: Trace, RLE: Trace Wound/Incision: Yes: Dressing Dry and Intact Labs: CBC, BMP 09/13/17 07:30 09/13/17 07:30 INR, PTT INR 1.38 (0.83-1.09) 09/13/17 07:30 Problem List - Problems (1) ESRD (end stage renal disease) Code(s): N18.6 - END STAGE RENAL DISEASE (2) Osteomyelitis Code(s): M86.9 - OSTEOMYELITIS, UNSPECIFIED Qualifiers: Osteomyelitis type: other Osteomyelitis location: foot Laterality: right Qualified Code(s): M86.8X7 - Other osteomyelitis, ankle and foot (3) Atrial fibrillation Code(s): I48.91 - UNSPECIFIED ATRIAL FIBRILLATION Qualifiers: Atrial fibrillation type: permanent Qualified Code(s): I48.2 - Chronic atrial fibrillation Assessment/Plan Current Medications Generic Name Dose Route Start Last Admin Trade Name Freq PRN Reason Stop Dose Admin Acetaminophen 650 mg 09/12/17 14:28 Tylenol - PO Q6H PRN PAIN 1-5 Acetaminophen 325 mg 09/12/17 14:28 09/13/17 11:15 Tylenol - PO 325 mg Q8H PRN Administration PAIN SCALE 6-10 Clotrimazole 1 applic 09/12/17 22:00 09/12/17 22:17 Lotrisone Cream (Small Tube) TP 1 applic BID [facility] Administration Epoetin Hector 5,000 unit 09/13/17 09:02 Epogen - IVPUSH 09/13/17 09:03 ONCE ONE Piperacillin Sod/Tazobactam 50 mls @ 100 mls/hr 09/12/17 18:00 09/13/17 02:53 Sod 2.25 gm/ Dextrose IVPB 100 mls/hr Q8H-IV [facility] Administration Protocol Sodium Chloride 250 mls @ 3,000 mls/hr 09/13/17 09:02 Normal Saline - IV 09/14/17 09:02 PRN PRN Hypotension during Dialysis Insulin Aspart 1 vial 09/12/17 16:30 09/13/17 06:20 Novolog Vial Sliding Scale - SQ Not Given TIDAC [facility] Protocol Levothyroxine Sodium 75 mcg 09/13/17 07:00 09/13/17 06:19 Synthroid - PO 75 mcg ACBK [facility] Administration Melatonin 5 mg 09/12/17 22:00 09/12/17 22:17 Melatonin PO 5 mg HS PRN Administration INSOMNIA Metoprolol Succinate 12.5 mg 09/13/17 10:00 Toprol Xl - PO DAILY [facility] Multivit/Ca Carb/B Cmplx/FA/Prenat 1 tablet 09/13/17 10:00 Nephro-Fer - PO DAILY [facility] Ondansetron HCl 4 mg 09/12/17 14:28 Zofran Injection IVPUSH Q6H PRN NAUSEA AND/OR VOMITING Oxycodone/Acetaminophen 1 combo 09/13/17 11:56 Percocet 5/325 - PO 09/13/17 11:57 ONCE ONE Sacubitril/Valsartan 1 tab 09/12/17 22:00 09/12/17 22:17 Entresto 24 Mg-26 Mg Tablet PO 1 tab BID [facility] Administration Senna 2 tab 09/12/17 22:00 09/12/17 21:49 Senna - PO 2 tab HS [facility] Administration Sitagliptin Phosphate 25 mg 09/13/17 07:00 09/13/17 06:20 Januvia - PO 25 mg 0700 [facility] Administration Thiamine HCl 100 mg 09/13/17 10:00 Vitamin B1 - PO DAILY [facility] Impression 1. ESRD 2. hx pericardial effusion 3. hx pneumopericardium 4. hypothyroidism 5. a-fib 6. hypotension 7. hx of colon cancer 8. CHF 9. DM 10. hx of PE 11. CAD 12. foot ulcer Plan - HD today - ct surgery eval for pericardial effusion - discussed with primary team - abx per ID - repeat labs in am - cont wound care to foot
--- NOTE | 2017-09-13 12:29 | PN ---
Progress Note, Physician History of Present Illness: Reports post-op foot discomfort. Denies chest pain or dyspnea, undergoing HD. - Current Medication List Current Medications: Active Medications Acetaminophen (Tylenol -) 650 mg PO Q6H PRN PRN Reason: PAIN 1-5 Acetaminophen (Tylenol -) 325 mg PO Q8H PRN PRN Reason: PAIN SCALE 6-10 Last Admin: 09/13/17 11:15 Dose: 325 mg Clotrimazole (Lotrisone Cream (Small Tube)) 1 applic TP BID [facility] Last Admin: 09/12/17 22:17 Dose: 1 applic Epoetin Hector (Epogen -) 5,000 unit IVPUSH ONCE ONE Stop: 09/13/17 09:03 Piperacillin Sod/Tazobactam (Sod 2.25 gm/ Dextrose) 50 mls @ 100 mls/hr IVPB Q8H-IV [facility]; Protocol Last Admin: 09/13/17 02:53 Dose: 100 mls/hr Sodium Chloride (Normal Saline -) 250 mls @ 3,000 mls/hr IV PRN PRN PRN Reason: Hypotension during Dialysis Stop: 09/14/17 09:02 Insulin Aspart (Novolog Vial Sliding Scale -) 1 vial SQ TIDAC [facility]; Protocol Last Admin: 09/13/17 06:20 Dose: Not Given Levothyroxine Sodium (Synthroid -) 75 mcg PO ACBK [facility] Last Admin: 09/13/17 06:19 Dose: 75 mcg Melatonin (Melatonin) 5 mg PO HS PRN PRN Reason: INSOMNIA Last Admin: 09/12/17 22:17 Dose: 5 mg Metoprolol Succinate (Toprol Xl -) 12.5 mg PO DAILY [facility] Multivit/Ca Carb/B Cmplx/FA/Prenat (Nephro-Fer -) 1 tablet PO DAILY [facility] Ondansetron HCl (Zofran Injection) 4 mg IVPUSH Q6H PRN PRN Reason: NAUSEA AND/OR VOMITING Oxycodone/Acetaminophen (Percocet 5/325 -) 1 combo PO ONCE ONE Stop: 09/13/17 11:57 Sacubitril/Valsartan (Entresto 24 Mg-26 Mg Tablet) 1 tab PO BID [facility] Last Admin: 09/12/17 22:17 Dose: 1 tab Senna (Senna -) 2 tab PO HS [facility] Last Admin: 09/12/17 21:49 Dose: 2 tab Sitagliptin Phosphate (Januvia -) 25 mg PO 0700 [facility] Last Admin: 09/13/17 06:20 Dose: 25 mg Thiamine HCl (Vitamin B1 -) 100 mg PO DAILY [facility] - Objective Vital Signs: Vital Signs Temperature 98.2 F 09/13/17 11:50 Pulse Rate 68 09/13/17 11:55 Respiratory Rate 18 09/13/17 11:55 Blood Pressure 113/69 09/13/17 11:55 O2 Sat by Pulse Oximetry (%) 98 09/12/17 21:00 Constitutional: Yes: No Distress, Calm Neck: Yes: Supple Cardiovascular: Yes: Regular Rate and Rhythm Respiratory: Yes: Regular, Diminished, On Nasal O2 Gastrointestinal: Yes: Normal Bowel Sounds, Soft Extremities: Yes: Amputation Edema: No Labs: CBC, BMP 09/13/17 07:30 09/13/17 07:30 INR, PTT INR 1.38 (0.83-1.09) 09/13/17 07:30 Problem List - Problems (1) Chronic anticoagulation Code(s): 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 (2) 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 Code(s): E11.9 - TYPE 2 DIABETES MELLITUS WITHOUT COMPLICATIONS Qualifiers: 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 type: type 2 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 chcf insulin use: without chcf use 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 complication status: without complication Qualified Code(s): E11.9 - Type 2 diabetes mellitus without complications (3) ESRD (end stage renal disease) Code(s): N18.6 - END STAGE RENAL DISEASE (4) HTN (hypertension) Code(s): I10 - ESSENTIAL (PRIMARY) HYPERTENSION Qualifiers: Hypertension type: essential hypertension Qualified Code(s): I10 - Essential (primary) hypertension (5) Osteomyelitis Code(s): M86.9 - OSTEOMYELITIS, UNSPECIFIED Qualifiers: Osteomyelitis type: other Osteomyelitis location: foot Laterality: right Qualified Code(s): M86.8X7 - Other osteomyelitis, ankle and foot (6) Amputated toe of right foot Code(s): Z89.421 - ACQUIRED ABSENCE OF OTHER RIGHT TOE(S) (7) Atrial fibrillation Code(s): I48.91 - UNSPECIFIED ATRIAL FIBRILLATION Qualifiers: Atrial fibrillation type: permanent Qualified Code(s): I48.2 - Chronic atrial fibrillation (8) Cardiomyopathy Code(s): I42.9 - CARDIOMYOPATHY, UNSPECIFIED Qualifiers: Cardiomyopathy type: unspecified Qualified Code(s): I42.9 - Cardiomyopathy , unspecified (9) Hypothyroid Code(s): E03.9 - HYPOTHYROIDISM, UNSPECIFIED Qualifiers: Hypothyroidism type: unspecified Qualified Code(s): E03.9 - Hypothyroidism , unspecified (10) ICD (implantable cardioverter-defibrillator) in place Code(s): Z95.810 - PRESENCE OF AUTOMATIC (IMPLANTABLE) CARDIAC DEFIBRILLATOR (11) Pericardial effusion Code(s): I31.3 - PERICARDIAL EFFUSION (NONINFLAMMATORY) (12) Status post peripheral artery angioplasty Code(s): Z98.62 - PERIPHERAL VASCULAR ANGIOPLASTY STATUS (13) Anemia Code(s): D64.9 - ANEMIA, UNSPECIFIED Qualifiers: Anemia type: due to chronic kidney disease Assessment/Plan 09/12/2017 Echo: Moderate pericardial effusion, no tamponade, mildly dilated LV with severely decreased LV fxn, mild-mod dilated RV with severely decreased RV fxn, mod-severe MUKUL, mild MR, mild-mod TR, mild AR 1. Peripheral artery disease and gangrene right forefoot post right tibial revacularization and POD#1 debridement of bone and soft tissue with transmetatarsal amputation 2. ESRD on HD 3. Persistent AF with subtherapeutic INR 4. Dilated cardiomyopathy with LV systolic dysfunction s/p ICD 5. DM 6. HTN 7. Pericardial effusion 8. Hypothyroidism 9. History of colon CA s/p chemotherapy 10. Anemia of chronic kidney disease PLAN: 1. Continue Metoprolol 12.5 qd 2. Continue Entresto 24/26 bid and monitor renal function and electrolytes 3. HD as per Renal service, suspect pericardial effusion is due to uremic pericarditis and treated with HD 4. Echocardiography was reviewed and does not show any changes compared to study in July of this year. 5. Resume coumadin per INR once post-op hemostasis assured 6. Senior Software Systems Engineer: Dr. Ghassan Durant
[2017-09-13] MEDS ORDERED: EPOETIN ALFA 10,000 UNIT/1 ML VIAL IVPUSH ONE (13:00)
[2017-09-13] MEDS ORDERED: SODIUM CHLORIDE 250 ML IV PRN (13:00)
[2017-09-13 13:05] LABS: PLATELET ESTIMATE DECREASED
[2017-09-13] MEDS ORDERED: ACETAMINOPHEN 325 MG TABLET (FP) PO ONE (13:30)
[2017-09-13] MEDS ORDERED: IBUPROFEN 800 MG/8 ML IJ IVPB ONE (13:30)
--- NOTE | 2017-09-13 13:33 | CONSULT ---
Consult Consult Specialty:: Thoracic Surgery Referred by:: Dr. Conklin Reason for Consultation:: Pericardial effusion - History of Present Illness Chief Complaint: Toe pain History of Present Illness: 72M with MMP, ESRD on HD, CAD, Cardiomyopathy, s/p AICD, DM, h/o PE, former smoker, h/o advanced colon cancer s/p partial colectomy, admitted 2 days ago for amputation of infected toes. I was consulted to evaluate a chronic pericardial effusion that is stable on echo. His dyspnea is stable at 1 flight of stairs despite his poor EF. Fluid has been taken off in HD sessions without concerning hypotension. 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: Yes: Peripheral Neuropathy Cardio/Vascular: Yes: AFIB, CAD, HTN Pulmonary: Yes: COPD, Pulmonary Embolus Gastrointestinal: Yes: Cancer (COLON CA S/P chemotherapy), Other Renal/: Yes: Renal Failure, Hemodialysis Musculoskeletal: Yes: Other (RIGHT ANKLE/FOOT PAIN 10/10 WITH RIGHT LATERAL METATARSAL ULCER W DRAINAGE) Endocrine: Yes: Diabetes Mellitus - Past Surgical History Past Surgical History: Yes: AICD, Amputation, AV Fistula/Graft - Alcohol/Substance Use Hx Alcohol Use: No (quit 1981) - Smoking History Smoking history: Former smoker Have you smoked in the past 12 months: No If you are a former smoker, when did you quit?: 1981 - Social History History of Recent Travel: No Home Medications - Allergies Allergies/Adverse Reactions: Allergies Allergy/AdvReac Type Severity Reaction Status Date / Time No Known Drug Allergies Allergy Verified 09/11/17 09:55 - Home Medications Home Medications: Ambulatory Orders Acetaminophen 650 mg PO Q6H PRN 09/11/17 Clopidogrel Bisulfate [Plavix -] 75 mg PO DAILY 09/11/17 Clotrimazole/Betamet Diprop [Lotrisone Cream (Small Tube)] 1 applic TP BID 09/11 Glucosamine Sulfate Dipot Chlr [Glucosamine] 500 mg PO DAILY 09/11/17 Levothyroxine [Synthroid -] 75 mcg PO DAILY 09/11/17 Linagliptin [Tradjenta] 5 mg PO DAILY 09/11/17 Melatonin 5 mg PO HS PRN 09/11/17 Metoprolol Succinate 12.5 mg PO DAILY 09/11/17 Oxycodone HCl/Acetaminophen [Percocet 5-325 mg Tablet] 1 tab PO Q8H PRN Obuqfjvzcsty-Mzvo-Rfsrwgbj,Iso [Zosyn 2.25 gm Pre-Mix Bag] 2.25 gm IV TID Sacubitril/Valsartan [Entresto 24 mg-26 mg Tablet] 1 each PO BID 09/11/17 Sennosides [Senna] 2 tab PO HS 09/11/17 Sennosides/Docusate Sodium [Senexon-S Tablet] 1 each PO DAILY 09/11/17 Thiamine HCl [B-1] 100 mg PO DAILY 09/11/17 Vitamin B Comp W-C [Nephro-Fer -] 1 tablet PO DAILY 09/11/17 Warfarin Sodium [Coumadin] 4.5 mg PO HS 09/11/17 Family Disease History - Family Disease History Family History: Unremarkable Review of Systems - Review of Systems Constitutional: reports: Loss of Appetite Eyes: reports: No Symptoms HENT: reports: No Symptoms Neck: reports: No Symptoms Cardiovascular: reports: Shortness of Breath Respiratory: reports: SOB on Exertion Gastrointestinal: reports: No Symptoms Genitourinary: reports: No Symptoms Musculoskeletal: reports: No Symptoms Physical Exam Vital Signs: Vital Signs Temperature 98.2 F 09/13/17 11:50 Pulse Rate 68 09/13/17 11:55 Respiratory Rate 18 09/13/17 11:55 Blood Pressure 113/69 09/13/17 11:55 O2 Sat by Pulse Oximetry (%) 98 09/12/17 21:00 Constitutional: Yes: Well Nourished Eyes: Yes: WNL Neck: Yes: Supple Cardiovascular: Yes: Pulse Irregular Respiratory: Yes: Regular Extremities: Yes: Amputation Labs: CBC, BMP 09/13/17 07:30 09/13/17 07:30 Imaging - Results Chest X-ray: Report Reviewed, Image Reviewed (large heart) Problem List - Problems (1) Chronic anticoagulation Code(s): Z79.01 - LONGTERM (CURRENT) USE OF 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 (2) 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 Code(s): E11.9 - TYPE 2 DIABETES MELLITUS WITHOUT COMPLICATIONS Qualifiers: 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 type: type 2 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 efficiency manager insulin use: without efficiency manager use 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 complication status: without complication Qualified Code(s): E11.9 - Type 2 diabetes mellitus without complications (3) ESRD (end stage renal disease) Code(s): N18.6 - END STAGE RENAL DISEASE (4) HTN (hypertension) Code(s): I10 - ESSENTIAL (PRIMARY) HYPERTENSION Qualifiers: Hypertension type: essential hypertension Qualified Code(s): I10 - Essential (primary) hypertension (5) Osteomyelitis Code(s): M86.9 - OSTEOMYELITIS, UNSPECIFIED Qualifiers: Osteomyelitis type: other Osteomyelitis location: foot Laterality: right Qualified Code(s): M86.8X7 - Other osteomyelitis, ankle and foot (6) Amputated toe of right foot Code(s): Z89.421 - ACQUIRED ABSENCE OF OTHER RIGHT TOE(S) (7) Atrial fibrillation Code(s): I48.91 - UNSPECIFIED ATRIAL FIBRILLATION Qualifiers: Atrial fibrillation type: permanent Qualified Code(s): I48.2 - Chronic atrial fibrillation (8) Cardiomyopathy Code(s): I42.9 - CARDIOMYOPATHY, UNSPECIFIED Qualifiers: Cardiomyopathy type: unspecified Qualified Code(s): I42.9 - Cardiomyopathy , unspecified (9) Hypothyroid Code(s): E03.9 - HYPOTHYROIDISM, UNSPECIFIED Qualifiers: Hypothyroidism type: unspecified Qualified Code(s): E03.9 - Hypothyroidism , unspecified (10) ICD (implantable cardioverter-defibrillator) in place Code(s): Z95.810 - PRESENCE OF AUTOMATIC (IMPLANTABLE) CARDIAC DEFIBRILLATOR (11) Open wound of foot Code(s): S91.309A - UNSPECIFIED OPEN WOUND, UNSPECIFIED FOOT, INITIAL ENCOUNTER Qualifiers: Encounter type: subsequent encounter Laterality: right Qualified Code(s) : S91.301D - Unspecified open wound, right foot, subsequent encounter (12) Pericardial effusion Code(s): I31.3 - PERICARDIAL EFFUSION (NONINFLAMMATORY) (13) Status post peripheral artery angioplasty Code(s): Z98.62 - PERIPHERAL VASCULAR ANGIOPLASTY STATUS Assessment/Plan Imp/Plan: Chronic stable pericardial effusion likely related to fluid shifts from ESRD and CHF -Will defer to cardiology but may be best to sample when more acute issues such as diabetic toe infection is dealt with, and best to be done echo guided; -If recurrent or symptomatic, would consider more elective window in this high- risk patient who ultimately would be best served by transplant (?heart and ? kidney) if possible but acutely ill with infection at this time.
--- NOTE | 2017-09-13 14:41 | CONSULT ---
- Consultation REQUESTING PROVIDER: CONSULT REQUEST: We have been asked to surgically evaluate this patient for right foot pain. PCP:Crystal Middleton HISTORY OF PRESENT ILLNESS: The patient is a 72 yo male with multiple medical problems. He was admitted earlier this week and had a Right 2thru 5 TMA completed yesterday. Over the past month he had an angio to his RLE and 4/5th toe amp for a non-healing wound. He was at rehab, receiving IV abx. Currently the patient has throbbing pain to his right foot with intermittent sharp stabbing pains. PMHx: h/o colon cancer(RX treatment) , afib, COPD , ESRD on HD for past 18 months PSHx: 08/15-Revascularization right posterior tibial artery with atherectomy and angioplasty. Retrograde pedal cannulation with ultrasound 08/16-debridement of bone and soft tissue with transmetatarsal amputation 2,3,4,5 right foot with retention sutures and 1/4 iodoform packing necrotic bone and soft tissue 08/14-right 4/5th toe amp ACID/pacemaker, Left leg angio, RUE fistula Findings: from angio Calcified arteries Patent femoral and popliteal Occluded AT distal to origin Occluded peroneal Occluded PT with distal reconstitution Home Medications Medication Instructions Recorded Acetaminophen 650 mg PO Q6H PRN 09/11/17 Clopidogrel Bisulfate [Plavix -] 75 mg PO DAILY 09/11/17 Clotrimazole/Betamet Diprop 1 applic TP BID 09/11/17 [Lotrisone Cream (Small Tube)] Glucosamine Sulfate Dipot Chlr 500 mg PO DAILY 09/11/17 [Glucosamine] Levothyroxine [Synthroid -] 75 mcg PO DAILY 09/11/17 Linagliptin [Tradjenta] 5 mg PO DAILY 09/11/17 Melatonin 5 mg PO HS PRN 09/11/17 Metoprolol Succinate 12.5 mg PO DAILY 09/11/17 Oxycodone HCl/Acetaminophen 1 tab PO Q8H PRN 09/11/17 [Percocet 5-325 mg Tablet] Kbkxymattsxk-Twvy-Nlxqhifm,Iso 2.25 gm IV TID 09/11/17 [Zosyn 2.25 gm Pre-Mix Bag] Sacubitril/Valsartan [Entresto 24 1 each PO BID 09/11/17 mg-26 mg Tablet] Sennosides [Senna] 2 tab PO HS 09/11/17 Sennosides/Docusate Sodium 1 each PO DAILY 09/11/17 [Senexon-S Tablet] Thiamine HCl [B-1] 100 mg PO DAILY 09/11/17 Vitamin B Comp W-C [Nephro-Fer -] 1 tablet PO DAILY 09/11/17 Warfarin Sodium [Coumadin] 4.5 mg PO HS 09/11/17 Allergies Allergy/AdvReac Type Severity Reaction Status Date / Time No Known Drug Allergies Allergy Verified 09/11/17 09:55 REVIEW OF SYSTEMS: CONSTITUTIONAL: Absent: fever, chills, diaphoresis, generalized weakness, malaise, loss of appetite, weight change CARDIOVASCULAR: Absent: chest pain, syncope RESPIRATORY: PHYSICAL EXAM: GENERAL: Awake, alert, and fully oriented. HEAD: Normal with no signs of trauma. UPPER EXTREMITIES: palpable thrill to RUE LOWER EXTREMITIES: 2+ femoral pulses b/l, DP/PT with doppler. Right TMA site closed with flap/suture, the inferior aspect appears a little ischemia. No foul odor or drainage noted from the suture line. No erythema. Tender to touch. Vital Signs Temperature 98.2 F 09/13/17 11:50 Pulse Rate 68 09/13/17 11:55 Respiratory Rate 18 09/13/17 11:55 Blood Pressure 113/69 09/13/17 11:55 O2 Sat by Pulse Oximetry (%) 98 09/12/17 21:00 Lab Results WBC 3.9 K/mm3 (4.0-10.0) L 09/13/17 07:30 RBC 3.51 M/mm3 (4.00-5.60) L 09/13/17 07:30 Hgb 10.5 GM/dL (11.7-16.9) L 09/13/17 07:30 Hct 32.3 % (35.4-49) L 09/13/17 07:30 MCV 92.1 fl (80-96) 09/13/17 07:30 MCHC 32.5 g/dl (32.0-35.9) 09/13/17 07:30 RDW 18.7 % (11.9-15.9) H 09/13/17 07:30 Plt Count 86 K/MM3 (134-434) L D 09/13/17 07:30 Sodium 138 mmol/L (136-145) 09/13/17 07:30 Potassium 3.5 mmol/L (3.5-5.1) D 09/13/17 07:30 Chloride 101 mmol/L (98-107) 09/13/17 07:30 Carbon Dioxide 27 mmol/L (21-32) 09/13/17 07:30 Anion Gap 10 (8-16) 09/13/17 07:30 BUN 19 mg/dL (7-18) H 09/13/17 07:30 Creatinine 6.7 mg/dL (0.7-1.3) H 09/13/17 07:30 Random Glucose 79 mg/dL (74-106) 09/13/17 07:30 Calcium 8.8 mg/dL (8.5-10.1) 09/13/17 07:30 Blood Type O POSITIVE 09/11/17 12:30 Antibody Screen Negative 09/11/17 12:30 INR 1.38 (0.83-1.09) 09/13/17 07:30 Problem List - Problems (1) Amputated toe of right foot Assessment/Plan: D/w Dr. Woods, no acute vascular surgical intervention needed. He recently had an angio of RLE with revasculariation of PT with angioplasty and arthrectomy Monitor the wound closely for viability/healing of skin edges Wound care as per podiatry Continue coumadin/anticoag as per the medical team May benefit from HBO as outpt when discharged, f/u in wound clinic with Dr. Woods. Code(s): Z89.421 - ACQUIRED ABSENCE OF OTHER RIGHT TOE(S)
[2017-09-13] MEDS: metoPROLOL SUCCINATE 25 MG TAB.SR.24H (FP) PO SCH ×2 (17:19→17:36)
[2017-09-13] MEDS: VITAMIN B COMP W-C 1 EA TABLET PO SCH (17:19)
[2017-09-13] MEDS: THIAMINE HCL 100 MG TABLET (FP) PO SCH (17:19)
[2017-09-13] MEDS ORDERED: WARFARIN NA 2 MG TABLET (UD) PO ONE (18:00)
[2017-09-13] MEDS ORDERED: PT OWN MED DRAWER 7, Y5N ONE (21:10)
[2017-09-13] MEDS: MELATONIN 5 MG TABLETS PO PRN (21:15)
[2017-09-13] MEDS: SENNOSIDES 8.6MG TABLET (FP) PO SCH (21:15)
--- NOTE | 2017-09-13 22:40 | PN ---
Progress Note (short form) - Note Progress Note: POD#1. Pt seen this am around 9:15am. Having severe pain. Recieved multiple doses of pain meds contacted by nurse for evaluation. vss, Tmax 97.7 +clean dry dressing intact on right foot, post op day#1 pain Kerlix was removed. Did not disturb bottom dressing. Re-applied kerlix, tape and sheridan bandage. Bathroom privelages at 2pm today with post op shoe. read and appreciated all notes for today. vascular consult done. prescribed 1 dose percocet after dialysis today. will follow. dressing change tommorow.
[2017-09-14] MEDS: oxyCODONE HCL 5 MG TABLET PO PRN ×4 (00:24→18:50)
[2017-09-14] MEDS ORDERED: DEXTROSE 5%-WATER - 50 ML IVPB ONE ×3 (00:46→17:56)
[2017-09-14] MEDS ORDERED: PIPERACILLIN/TAZOBACTAM 2.25 GM VIAL IVPB ONE ×3 (00:46→17:56)
[2017-09-14] MEDS: PIPERACILLIN/TAZOB 2.25 GM 2.25 GM in DEXTROSE 5%-WATER - 50 ML IVPB SCH ×3 (02:44→18:52)
[2017-09-14] MEDS: LEVOTHYROXINE NA 75 MCG TABLET (FP) PO SCH (06:10)
[2017-09-14] MEDS: sitaGLIPtin PHOSPHATE 25 MG TABLET (FP) PO SCH (06:10)
[2017-09-14] MEDS: CLOTRIMAZOLE/BETAMET DIPROP 15 GM TUBE TP SCH ×3 (06:10→21:31)
[2017-09-14] MEDS: INSULIN SLIDING SCALE (NOVOLOG) 1 VIAL SQ SCH ×3 (06:11→16:24)
[2017-09-14 07:42] LABS: INR 1.45 (0.83-1.09); PROTHROMBIN TIME (PATIENT) 16.4 SEC (9.7-13.0)
[2017-09-14] MEDS: THIAMINE HCL 100 MG TABLET (FP) PO SCH (09:45)
[2017-09-14] MEDS: VITAMIN B COMP W-C 1 EA TABLET PO SCH (09:45)
[2017-09-14] MEDS: metoPROLOL SUCCINATE 25 MG TAB.SR.24H (FP) PO SCH (09:46)
[2017-09-14] MEDS: SACUBITRIL/VALSARTAN 24 MG-26 MG TABLET PO SCH ×2 (09:46→21:28)
[2017-09-14] MEDS: ACETAMINOPHEN 325 MG TABLET (FP) PO PRN ×3 (09:51→20:35)
--- NOTE | 2017-09-14 11:27 | PN ---
Progress Note (short form) - Note Progress Note: pt seen/ examined chart reviewed pod # 2 reports pain better. going to bath room afebrile Vital Signs Temp 97.8 F 09/14/17 10:00 Pulse 67 09/14/17 10:00 Resp 18 09/14/17 10:00 BP 98/54 09/14/17 10:00 Pulse Ox 96 09/14/17 09:00 Intake & Output 09/13/17 09/13/17 09/14/17 11:59 23:59 11:59 Intake Total 50 1300 250 Balance 50 1300 250 Weight 200 lb 1 oz Intake: IV 50 Saline Lock 50 IVPB 50 Oral 1300 200 Other: Voiding Method Urinal Urinal Urinal # Unmeasured Voids Void 0 Bowel Movement No # Bowel Movements 0 Weight Measurement Method Built in [facility] Active Medications Acetaminophen (Tylenol -) 650 mg PO Q6H PRN PRN Reason: PAIN 1-5 Last Admin: 09/14/17 09:51 Dose: 650 mg Acetaminophen (Tylenol -) 325 mg PO Q8H PRN PRN Reason: PAIN SCALE 6-10 Last Admin: 09/13/17 21:23 Dose: 325 mg Clotrimazole (Lotrisone Cream (Small Tube)) 1 applic TP BID [facility] Last Admin: 09/14/17 09:59 Dose: 1 applic Piperacillin Sod/Tazobactam (Sod 2.25 gm/ Dextrose) 50 mls @ 100 mls/hr IVPB Q8H-IV [facility]; Protocol Last Admin: 09/14/17 09:44 Dose: 100 mls/hr Sodium Chloride (Normal Saline -) 250 mls @ 3,000 mls/hr IV PRN PRN PRN Reason: Hypotension during Dialysis Stop: 09/14/17 12:59 Insulin Aspart (Novolog Vial Sliding Scale -) 1 vial SQ TIDAC [facility]; Protocol Last Admin: 09/14/17 10:49 Dose: Not Given Levothyroxine Sodium (Synthroid -) 75 mcg PO ACBK [facility] Last Admin: 09/14/17 06:10 Dose: 75 mcg Melatonin (Melatonin) 5 mg PO HS PRN PRN Reason: INSOMNIA Last Admin: 09/13/17 21:15 Dose: 5 mg Metoprolol Succinate (Toprol Xl -) 12.5 mg PO DAILY [facility] Last Admin: 09/14/17 09:46 Dose: 12.5 mg Multivit/Ca Carb/B Cmplx/FA/Prenat (Nephro-Fer -) 1 tablet PO DAILY [facility] Last Admin: 09/14/17 09:45 Dose: 1 tablet Ondansetron HCl (Zofran Injection) 4 mg IVPUSH Q6H PRN PRN Reason: NAUSEA AND/OR VOMITING Oxycodone HCl (Roxicodone -) 10 mg PO Q6H PRN PRN Reason: PAIN LEVEL 6-10 Stop: 09/14/17 12:34 Last Admin: 09/14/17 06:14 Dose: 10 mg Sacubitril/Valsartan (Entresto 24 Mg-26 Mg Tablet) 1 tab PO BID [facility] Last Admin: 09/14/17 09:46 Dose: 1 tab Senna (Senna -) 2 tab PO HS [facility] Last Admin: 09/13/17 21:15 Dose: 2 tab Sitagliptin Phosphate (Januvia -) 25 mg PO 0700 [facility] Last Admin: 09/14/17 06:10 Dose: 25 mg Thiamine HCl (Vitamin B1 -) 100 mg PO DAILY [facility] Last Admin: 09/14/17 09:45 Dose: 100 mg Warfarin Sodium (Coumadin -) 4 mg PO DAILY@1800 [facility] Warfarin Sodium (Coumadin -) 2 mg PO ONCE@1800 ONE Stop: 09/14/17 18:01 CBC, BMP 09/13/17 07:30 09/13/17 07:30 Microbiology 09/12/17 13:30 Gram Stain - Final Foot - Rt Transmetatarsal Amp. Site Wound Culture - Preliminary Yeast Like Organism 09/12/17 13:30 Gram Stain - Final Foot - Rt Transmetatarsal Amp. Site Wound Culture - Preliminary NO GROWTH OBTAINED AFTER 24 HOURS INCUBATION, REINCUBATED. Physical Examination Constitutional: Yes: No Distress, Calm.Comfortable. Eyes: Yes: Conjunctiva Clear Neck: Yes: Supple/ no jvd Cardiovascular: Yes: Regular Rate and Rhythm Respiratory: Yes: Bilateral breath sounds Gastrointestinal: Yes: Normal Bowel Sounds, Soft Edema: No Wound/Incision: Yes: Dressing Dry and Intact Neurological: Yes: Alert Psychiatric: Yes: Alert Problem List - Problems (1) ESRD (end stage renal disease) Code(s): N18.6 - END STAGE RENAL DISEASE (2) Osteomyelitis Code(s): M86.9 - OSTEOMYELITIS, UNSPECIFIED Qualifiers: Osteomyelitis type: other Osteomyelitis location: foot Laterality: right Qualified Code(s): M86.8X7 - Other osteomyelitis, ankle and foot (3) Amputated toe of right foot Code(s): Z89.421 - ACQUIRED ABSENCE OF OTHER RIGHT TOE(S) (4) Atrial fibrillation Code(s): I48.91 - UNSPECIFIED ATRIAL FIBRILLATION Qualifiers: (5) Cardiomyopathy Code(s): I42.9 - CARDIOMYOPATHY, UNSPECIFIED Qualifiers: Cardiomyopathy type: unspecified Qualified Code(s): I42.9 - Cardiomyopathy , unspecified (6) Hypothyroid Code(s): E03.9 - HYPOTHYROIDISM, UNSPECIFIED Qualifiers: Hypothyroidism type: unspecified Qualified Code(s): E03.9 - Hypothyroidism , unspecified (7) ICD (implantable cardioverter-defibrillator) in place Code(s): Z95.810 - PRESENCE OF AUTOMATIC (IMPLANTABLE) CARDIAC DEFIBRILLATOR (8) Pericardial effusion Code(s): I31.3 - PERICARDIAL EFFUSION (NONINFLAMMATORY) Assessment/Plan Stable pod # 2 overall better. pain control dialysis per renal monitor bgm. will follow discussed with nursing staff. will also give extra dose of coumadin. Monitor inr Problem List - Problems (1) ESRD (end stage renal disease) Code(s): N18.6 - END STAGE RENAL DISEASE (2) Osteomyelitis Code(s): M86.9 - OSTEOMYELITIS, UNSPECIFIED Qualifiers: Osteomyelitis type: other Osteomyelitis location: foot Laterality: right Qualified Code(s): M86.8X7 - Other osteomyelitis, ankle and foot (3) Amputated toe of right foot Code(s): Z89.421 - ACQUIRED ABSENCE OF OTHER RIGHT TOE(S) (4) Atrial fibrillation Code(s): I48.91 - UNSPECIFIED ATRIAL FIBRILLATION Qualifiers: Atrial fibrillation type: permanent Qualified Code(s): I48.2 - Chronic atrial fibrillation (5) Cardiomyopathy Code(s): I42.9 - CARDIOMYOPATHY, UNSPECIFIED Qualifiers: Cardiomyopathy type: unspecified Qualified Code(s): I42.9 - Cardiomyopathy , unspecified (6) Hypothyroid Code(s): E03.9 - HYPOTHYROIDISM, UNSPECIFIED Qualifiers: Hypothyroidism type: unspecified Qualified Code(s): E03.9 - Hypothyroidism , unspecified (7) ICD (implantable cardioverter-defibrillator) in place Code(s): Z95.810 - PRESENCE OF AUTOMATIC (IMPLANTABLE) CARDIAC DEFIBRILLATOR (8) Pericardial effusion Code(s): I31.3 - PERICARDIAL EFFUSION (NONINFLAMMATORY)
--- NOTE | 2017-09-14 12:07 | PN ---
Progress Note, Physician History of Present Illness: Foot bandage changed, bleeding viable tissue noted. Denies chest pain or dyspnea , thoracic surgery input noted. - Current Medication List Current Medications: Active Medications Acetaminophen (Tylenol -) 650 mg PO Q6H PRN PRN Reason: PAIN 1-5 Last Admin: 09/14/17 09:51 Dose: 650 mg Acetaminophen (Tylenol -) 325 mg PO Q8H PRN PRN Reason: PAIN SCALE 6-10 Last Admin: 09/13/17 21:23 Dose: 325 mg Clotrimazole (Lotrisone Cream (Small Tube)) 1 applic TP BID [facility] Last Admin: 09/14/17 09:59 Dose: 1 applic Piperacillin Sod/Tazobactam (Sod 2.25 gm/ Dextrose) 50 mls @ 100 mls/hr IVPB Q8H-IV [facility]; Protocol Last Admin: 09/14/17 09:44 Dose: 100 mls/hr Sodium Chloride (Normal Saline -) 250 mls @ 3,000 mls/hr IV PRN PRN PRN Reason: Hypotension during Dialysis Stop: 09/14/17 12:59 Insulin Aspart (Novolog Vial Sliding Scale -) 1 vial SQ TIDAC [facility]; Protocol Last Admin: 09/14/17 10:49 Dose: Not Given Levothyroxine Sodium (Synthroid -) 75 mcg PO ACBK [facility] Last Admin: 09/14/17 06:10 Dose: 75 mcg Melatonin (Melatonin) 5 mg PO HS PRN PRN Reason: INSOMNIA Last Admin: 09/13/17 21:15 Dose: 5 mg Metoprolol Succinate (Toprol Xl -) 12.5 mg PO DAILY [facility] Last Admin: 09/14/17 09:46 Dose: 12.5 mg Multivit/Ca Carb/B Cmplx/FA/Prenat (Nephro-Fer -) 1 tablet PO DAILY [facility] Last Admin: 09/14/17 09:45 Dose: 1 tablet Ondansetron HCl (Zofran Injection) 4 mg IVPUSH Q6H PRN PRN Reason: NAUSEA AND/OR VOMITING Oxycodone HCl (Roxicodone -) 10 mg PO Q6H PRN PRN Reason: PAIN LEVEL 6-10 Stop: 09/14/17 12:34 Last Admin: 09/14/17 06:14 Dose: 10 mg Sacubitril/Valsartan (Entresto 24 Mg-26 Mg Tablet) 1 tab PO BID [facility] Last Admin: 09/14/17 09:46 Dose: 1 tab Senna (Senna -) 2 tab PO HS [facility] Last Admin: 09/13/17 21:15 Dose: 2 tab Sitagliptin Phosphate (Januvia -) 25 mg PO 0700 [facility] Last Admin: 09/14/17 06:10 Dose: 25 mg Thiamine HCl (Vitamin B1 -) 100 mg PO DAILY [facility] Last Admin: 09/14/17 09:45 Dose: 100 mg Warfarin Sodium (Coumadin -) 4 mg PO DAILY@1800 [facility] Warfarin Sodium (Coumadin -) 2 mg PO ONCE@1800 ONE Stop: 09/14/17 18:01 - Objective Vital Signs: Vital Signs Temperature 97.8 F 09/14/17 10:00 Pulse Rate 67 09/14/17 10:00 Respiratory Rate 18 09/14/17 10:00 Blood Pressure 98/54 09/14/17 10:00 O2 Sat by Pulse Oximetry (%) 96 09/14/17 09:00 Constitutional: Yes: No Distress, Calm Neck: Yes: Supple Cardiovascular: Yes: Regular Rate and Rhythm Respiratory: Yes: Regular, CTA Bilaterally Gastrointestinal: Yes: Normal Bowel Sounds, Soft Extremities: Yes: Amputation (Right transmetarsal amputations) Edema: No Labs: CBC, BMP 09/13/17 07:30 09/13/17 07:30 INR, PTT INR 1.45 (0.83-1.09) H 09/14/17 06:30 Problem List - Problems (1) Chronic anticoagulation Code(s): 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) USE OF 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 (2) 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 Code(s): E11.9 - TYPE 2 DIABETES MELLITUS WITHOUT COMPLICATIONS Qualifiers: 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 type: type 2 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 ad terminal makeup operator insulin use: without ad terminal makeup operator use 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 complication status: without complication Qualified Code(s): E11.9 - Type 2 diabetes mellitus without complications (3) ESRD (end stage renal disease) Code(s): N18.6 - END STAGE RENAL DISEASE (4) HTN (hypertension) Code(s): I10 - ESSENTIAL (PRIMARY) HYPERTENSION Qualifiers: Hypertension type: essential hypertension Qualified Code(s): I10 - Essential (primary) hypertension (5) Osteomyelitis Code(s): M86.9 - OSTEOMYELITIS, UNSPECIFIED Qualifiers: Osteomyelitis type: other Osteomyelitis location: foot Laterality: right Qualified Code(s): M86.8X7 - Other osteomyelitis, ankle and foot (6) Amputated toe of right foot Code(s): Z89.421 - ACQUIRED ABSENCE OF OTHER RIGHT TOE(S) (7) Atrial fibrillation Code(s): I48.91 - UNSPECIFIED ATRIAL FIBRILLATION Qualifiers: Atrial fibrillation type: permanent Qualified Code(s): I48.2 - Chronic atrial fibrillation (8) Cardiomyopathy Code(s): I42.9 - CARDIOMYOPATHY, UNSPECIFIED Qualifiers: Cardiomyopathy type: unspecified Qualified Code(s): I42.9 - Cardiomyopathy , unspecified (9) Hypothyroid Code(s): E03.9 - HYPOTHYROIDISM, UNSPECIFIED Qualifiers: Hypothyroidism type: unspecified Qualified Code(s): E03.9 - Hypothyroidism , unspecified (10) ICD (implantable cardioverter-defibrillator) in place Code(s): Z95.810 - PRESENCE OF AUTOMATIC (IMPLANTABLE) CARDIAC DEFIBRILLATOR (11) Pericardial effusion Code(s): I31.3 - PERICARDIAL EFFUSION (NONINFLAMMATORY) (12) Status post peripheral artery angioplasty Code(s): Z98.62 - PERIPHERAL VASCULAR ANGIOPLASTY STATUS (13) Anemia Code(s): D64.9 - ANEMIA, UNSPECIFIED Qualifiers: Anemia type: due to chronic kidney disease Assessment/Plan 09/12/2017 Echo: Moderate pericardial effusion, no tamponade, mildly dilated LV with severely decreased LV fxn, mild-mod dilated RV with severely decreased RV fxn, mod-severe MUKUL, mild MR, mild-mod TR, mild AR 1. Peripheral artery disease and gangrene right forefoot post right tibial revacularization and POD#2 debridement of bone and soft tissue with transmetatarsal amputation 2. ESRD on HD 3. Persistent AF with subtherapeutic INR 4. Dilated cardiomyopathy with LV systolic dysfunction s/p ICD 5. DM 6. HTN 7. Pericardial effusion 8. Hypothyroidism 9. History of colon CA s/p chemotherapy 10. Anemia of chronic kidney disease PLAN: 1. Continue Metoprolol 12.5 qd 2. Continue Entresto 24/26 bid and monitor renal function and electrolytes 3. HD as per Renal service, suspect pericardial effusion is due to uremic pericarditis and treated with HD, pericardiocentesis not indicated 4. Echocardiography was reviewed and does not show any changes compared to study in July of this year. 5. Continue coumadin per INR as post-op hemostasis achieved 6. Complete empiric abx course 7. Audit Associate: Dr. Ghassan Durant
--- NOTE | 2017-09-14 12:44 | PN ---
Progress Note (short form) - Note Progress Note: POD#2. Pain has resolved. vss, Tmax 97.8 +clean dry dressing intact on right foot, packing intact, retention sutures intact, wbc=3.9 normal post op day2 Dressing removed. Packing pulled. Redress with betadine dressing. Post op shoe to ambulate. If wound looks good tomorrow and patient is stable and no distress he can go home with ABX. Wound care at [facility]. HBO in place. will follow till dc.
[2017-09-14] MEDS ORDERED: SODIUM CHLORIDE 250 ML IV PRN (14:35)
--- NOTE | 2017-09-14 14:35 | PN ---
Progress Note, Physician History of Present Illness: Pt seen and examined at bedside. He is awake and alert. He tolerated HD yesterday. - Current Medication List Current Medications: Active Medications Acetaminophen (Tylenol -) 650 mg PO Q6H PRN PRN Reason: PAIN 1-5 Last Admin: 09/14/17 09:51 Dose: 650 mg Acetaminophen (Tylenol -) 325 mg PO Q8H PRN PRN Reason: PAIN SCALE 6-10 Last Admin: 09/13/17 21:23 Dose: 325 mg Clotrimazole (Lotrisone Cream (Small Tube)) 1 applic TP BID [facility] Last Admin: 09/14/17 09:59 Dose: 1 applic Piperacillin Sod/Tazobactam (Sod 2.25 gm/ Dextrose) 50 mls @ 100 mls/hr IVPB Q8H-IV [facility]; Protocol Last Admin: 09/14/17 09:44 Dose: 100 mls/hr Insulin Aspart (Novolog Vial Sliding Scale -) 1 vial SQ TIDAC [facility]; Protocol Last Admin: 09/14/17 10:49 Dose: Not Given Levothyroxine Sodium (Synthroid -) 75 mcg PO ACBK [facility] Last Admin: 09/14/17 06:10 Dose: 75 mcg Melatonin (Melatonin) 5 mg PO HS PRN PRN Reason: INSOMNIA Last Admin: 09/13/17 21:15 Dose: 5 mg Metoprolol Succinate (Toprol Xl -) 12.5 mg PO DAILY [facility] Last Admin: 09/14/17 09:46 Dose: 12.5 mg Multivit/Ca Carb/B Cmplx/FA/Prenat (Nephro-Fer -) 1 tablet PO DAILY [facility] Last Admin: 09/14/17 09:45 Dose: 1 tablet Ondansetron HCl (Zofran Injection) 4 mg IVPUSH Q6H PRN PRN Reason: NAUSEA AND/OR VOMITING Oxycodone HCl (Roxicodone -) 10 mg PO Q6H PRN PRN Reason: PAIN 6-10 Last Admin: 09/14/17 13:25 Dose: 10 mg Sacubitril/Valsartan (Entresto 24 Mg-26 Mg Tablet) 1 tab PO BID [facility] Last Admin: 09/14/17 09:46 Dose: 1 tab Senna (Senna -) 2 tab PO HS [facility] Last Admin: 09/13/17 21:15 Dose: 2 tab Sitagliptin Phosphate (Januvia -) 25 mg PO 0700 [facility] Last Admin: 09/14/17 06:10 Dose: 25 mg Thiamine HCl (Vitamin B1 -) 100 mg PO DAILY [facility] Last Admin: 09/14/17 09:45 Dose: 100 mg Warfarin Sodium (Coumadin -) 4 mg PO DAILY@1800 [facility] Warfarin Sodium (Coumadin -) 2 mg PO ONCE@1800 [facility] Stop: 09/14/17 18:01 - Objective Vital Signs: Vital Signs Temperature 98.1 F 09/14/17 14:00 Pulse Rate 65 09/14/17 14:00 Respiratory Rate 17 09/14/17 14:00 Blood Pressure 96/61 09/14/17 14:00 O2 Sat by Pulse Oximetry (%) 96 09/14/17 09:00 Constitutional: Yes: Calm Eyes: Yes: Conjunctiva Clear HENT: Yes: Atraumatic Neck: Yes: Supple Cardiovascular: Yes: S1, S2 Respiratory: Yes: CTA Bilaterally Gastrointestinal: Yes: Soft Genitourinary: Yes: WNL Edema: Yes Edema: LLE: Trace, RLE: Trace Wound/Incision: Yes: Dressing Dry and Intact Neurological: Yes: Oriented Psychiatric: Yes: Oriented Labs: CBC, BMP 09/13/17 07:30 09/13/17 07:30 INR, PTT INR 1.45 (0.83-1.09) H 09/14/17 06:30 Problem List - Problems (1) ESRD (end stage renal disease) Code(s): N18.6 - END STAGE RENAL DISEASE (2) Osteomyelitis Code(s): M86.9 - OSTEOMYELITIS, UNSPECIFIED Qualifiers: Osteomyelitis type: other Osteomyelitis location: foot Laterality: right Qualified Code(s): M86.8X7 - Other osteomyelitis, ankle and foot (3) Atrial fibrillation Code(s): I48.91 - UNSPECIFIED ATRIAL FIBRILLATION Qualifiers: Atrial fibrillation type: permanent Qualified Code(s): I48.2 - Chronic atrial fibrillation Assessment/Plan Current Medications Generic Name Dose Route Start Last Admin Trade Name Freq PRN Reason Stop Dose Admin Acetaminophen 650 mg 09/12/17 14:28 09/14/17 09:51 Tylenol - PO 650 mg Q6H PRN Administration PAIN 1-5 Acetaminophen 325 mg 09/12/17 14:28 09/13/17 21:23 Tylenol - PO 325 mg Q8H PRN Administration PAIN SCALE 6-10 Clotrimazole 1 applic 09/12/17 22:00 09/14/17 09:59 Lotrisone Cream (Small Tube) TP 1 applic BID [facility] Administration Piperacillin Sod/Tazobactam 50 mls @ 100 mls/hr 09/12/17 18:00 09/14/17 09:44 Sod 2.25 gm/ Dextrose IVPB 100 mls/hr Q8H-IV [facility] Administration Protocol Insulin Aspart 1 vial 09/12/17 16:30 09/14/17 10:49 Novolog Vial Sliding Scale - SQ Not Given TIDAC [facility] Protocol Levothyroxine Sodium 75 mcg 09/13/17 07:00 09/14/17 06:10 Synthroid - PO 75 mcg ACBK [facility] Administration Melatonin 5 mg 09/12/17 22:00 09/13/17 21:15 Melatonin PO 5 mg HS PRN Administration INSOMNIA Metoprolol Succinate 12.5 mg 09/13/17 10:00 09/14/17 09:46 Toprol Xl - PO 12.5 mg DAILY [facility] Administration Multivit/Ca Carb/B Cmplx/FA/Prenat 1 tablet 09/13/17 10:00 09/14/17 09:45 Nephro-Fer - PO 1 tablet DAILY [facility] Administration Ondansetron HCl 4 mg 09/12/17 14:28 Zofran Injection IVPUSH Q6H PRN NAUSEA AND/OR VOMITING Oxycodone HCl 10 mg 09/14/17 13:42 09/14/17 13:25 Roxicodone - PO 10 mg Q6H PRN Administration PAIN 6-10 Sacubitril/Valsartan 1 tab 09/12/17 22:00 09/14/17 09:46 Entresto 24 Mg-26 Mg Tablet PO 1 tab BID [facility] Administration Senna 2 tab 09/12/17 22:00 09/13/17 21:15 Senna - PO 2 tab HS [facility] Administration Sitagliptin Phosphate 25 mg 09/13/17 07:00 09/14/17 06:10 Januvia - PO 25 mg 0700 [facility] Administration Thiamine HCl 100 mg 09/13/17 10:00 09/14/17 09:45 Vitamin B1 - PO 100 mg DAILY [facility] Administration Warfarin Sodium 4 mg 09/14/17 18:00 Coumadin - PO DAILY@1800 [facility] Warfarin Sodium 2 mg 09/14/17 18:00 Coumadin - PO 09/14/17 18:01 ONCE@1800 ONE Impression 1. ESRD 2. hx pericardial effusion 3. hx pneumopericardium 4. hypothyroidism 5. a-fib 6. hypotension 7. hx of colon cancer 8. CHF 9. DM 10. hx of PE 11. CAD 12. foot ulcer Plan - ct surgery input appreciated - will arrange for HD today - cardio input appreciated - abx per ID - repeat labs in am - cont wound care to foot
--- NOTE | 2017-09-14 17:32 | PN ---
Progress Note, Physician History of Present Illness: patient stable no new issues - Current Medication List Current Medications: Active Medications Acetaminophen (Tylenol -) 650 mg PO Q6H PRN PRN Reason: PAIN 1-5 Last Admin: 09/14/17 15:35 Dose: 650 mg Acetaminophen (Tylenol -) 325 mg PO Q8H PRN PRN Reason: PAIN SCALE 6-10 Last Admin: 09/13/17 21:23 Dose: 325 mg Clotrimazole (Lotrisone Cream (Small Tube)) 1 applic TP BID [facility] Last Admin: 09/14/17 09:59 Dose: 1 applic Piperacillin Sod/Tazobactam (Sod 2.25 gm/ Dextrose) 50 mls @ 100 mls/hr IVPB Q8H-IV [facility]; Protocol Last Admin: 09/14/17 09:44 Dose: 100 mls/hr Sodium Chloride (Normal Saline -) 250 mls @ 3,000 mls/hr IV PRN PRN PRN Reason: Hypotension during Dialysis Stop: 09/15/17 14:35 Insulin Aspart (Novolog Vial Sliding Scale -) 1 vial SQ TIDAC [facility]; Protocol Last Admin: 09/14/17 16:24 Dose: Not Given Levothyroxine Sodium (Synthroid -) 75 mcg PO ACBK [facility] Last Admin: 09/14/17 06:10 Dose: 75 mcg Melatonin (Melatonin) 5 mg PO HS PRN PRN Reason: INSOMNIA Last Admin: 09/13/17 21:15 Dose: 5 mg Metoprolol Succinate (Toprol Xl -) 12.5 mg PO DAILY [facility] Last Admin: 09/14/17 09:46 Dose: 12.5 mg Multivit/Ca Carb/B Cmplx/FA/Prenat (Nephro-Fer -) 1 tablet PO DAILY [facility] Last Admin: 09/14/17 09:45 Dose: 1 tablet Ondansetron HCl (Zofran Injection) 4 mg IVPUSH Q6H PRN PRN Reason: NAUSEA AND/OR VOMITING Oxycodone HCl (Roxicodone -) 10 mg PO Q6H PRN PRN Reason: PAIN 6-10 Last Admin: 09/14/17 13:25 Dose: 10 mg Sacubitril/Valsartan (Entresto 24 Mg-26 Mg Tablet) 1 tab PO BID [facility] Last Admin: 09/14/17 09:46 Dose: 1 tab Senna (Senna -) 2 tab PO HS [facility] Last Admin: 09/13/17 21:15 Dose: 2 tab Sitagliptin Phosphate (Januvia -) 25 mg PO 0700 [facility] Last Admin: 09/14/17 06:10 Dose: 25 mg Thiamine HCl (Vitamin B1 -) 100 mg PO DAILY [facility] Last Admin: 09/14/17 09:45 Dose: 100 mg Warfarin Sodium (Coumadin -) 4 mg PO DAILY@1800 [facility] Warfarin Sodium (Coumadin -) 2 mg PO ONCE@1800 ONE Stop: 09/14/17 18:01 - Objective Vital Signs: Vital Signs Temperature 97.7 F 09/14/17 15:10 Pulse Rate 66 09/14/17 17:15 Respiratory Rate 18 09/14/17 17:15 Blood Pressure 114/68 09/14/17 17:15 O2 Sat by Pulse Oximetry (%) 96 09/14/17 09:00 Constitutional: Yes: No Distress, Calm Cardiovascular: Yes: Regular Rate and Rhythm Respiratory: Yes: Regular, CTA Bilaterally Gastrointestinal: Yes: Normal Bowel Sounds, Soft Musculoskeletal: Yes: WNL Extremities: Yes: Other Wound/Incision: Yes: Dressing Dry and Intact Neurological: Yes: Alert, Oriented Psychiatric: Yes: Alert, Oriented Labs: CBC, BMP 09/13/17 07:30 09/13/17 07:30 INR, PTT INR 1.45 (0.83-1.09) H 09/14/17 06:30 Assessment/Plan Problem List - Problems (1) ESRD (end stage renal disease) Code(s): N18.6 - END STAGE RENAL DISEASE (2) Osteomyelitis Code(s): M86.9 - OSTEOMYELITIS, UNSPECIFIED Qualifiers: Osteomyelitis type: other Osteomyelitis location: foot Laterality: right Qualified Code(s): M86.8X7 - Other osteomyelitis, ankle and foot (3) Amputated toe of right foot Code(s): Z89.421 - ACQUIRED ABSENCE OF OTHER RIGHT TOE(S) (4) Atrial fibrillation Code(s): I48.91 - UNSPECIFIED ATRIAL FIBRILLATION Qualifiers: (5) Cardiomyopathy Code(s): I42.9 - CARDIOMYOPATHY, UNSPECIFIED Qualifiers: Cardiomyopathy type: unspecified Qualified Code(s): I42.9 - Cardiomyopathy , unspecified (6) Hypothyroid Code(s): E03.9 - HYPOTHYROIDISM, UNSPECIFIED Qualifiers: Hypothyroidism type: unspecified Qualified Code(s): E03.9 - Hypothyroidism , unspecified (7) ICD (implantable cardioverter-defibrillator) in place Code(s): Z95.810 - PRESENCE OF AUTOMATIC (IMPLANTABLE) CARDIAC DEFIBRILLATOR (8) Pericardial effusion Code(s): I31.3 - PERICARDIAL EFFUSION (NONINFLAMMATORY) plan continue iv abx await for cx reports continue current mgmt rest as per the team once we have the reports then will decide if patient needs any abx
[2017-09-14] MEDS ORDERED: WARFARIN NA 2 MG TABLET (UD) PO ONE (18:00)
[2017-09-14] MEDS: WARFARIN NA 2 MG TABLET (UD) PO SCH (18:51)
[2017-09-14] MEDS ORDERED: PT OWN MED DRAWER 7, Y5N ONE (21:15)
[2017-09-14] MEDS: SENNOSIDES 8.6MG TABLET (FP) PO SCH (21:28)
[2017-09-14] MEDS ORDERED: morphine SULFATE 4 MG/ML VIAL IVPUSH ONE (21:30)
[2017-09-15] MEDS ORDERED: PIPERACILLIN/TAZOBACTAM 2.25 GM VIAL IVPB ONE ×3 (01:13→17:13)
[2017-09-15] MEDS: PIPERACILLIN/TAZOB 2.25 GM 2.25 GM in DEXTROSE 5%-WATER - 50 ML IVPB SCH ×3 (01:16→17:39)
[2017-09-15] MEDS: oxyCODONE HCL 5 MG TABLET PO PRN ×4 (01:16→22:08)
[2017-09-15] MEDS: MELATONIN 5 MG TABLETS PO PRN ×2 (02:30→22:51)
[2017-09-15] MEDS: ACETAMINOPHEN 325 MG TABLET (FP) PO PRN ×2 (05:25→16:31)
[2017-09-15] MEDS: INSULIN SLIDING SCALE (NOVOLOG) 1 VIAL SQ SCH ×3 (06:05→17:01)
[2017-09-15] MEDS: sitaGLIPtin PHOSPHATE 25 MG TABLET (FP) PO SCH (06:26)
[2017-09-15] MEDS: LEVOTHYROXINE NA 75 MCG TABLET (FP) PO SCH (06:26)
[2017-09-15 08:23] LABS: INR 1.42 (0.83-1.09)
[2017-09-15] MEDS ORDERED: DEXTROSE 5%-WATER - 50 ML IVPB ONE ×2 (09:09→17:13)
--- NOTE | 2017-09-15 09:11 | PN ---
Progress Note, Physician History of Present Illness: Foot bandage clean and dry. Denies chest pain or dyspnea, foot pain adequately controlled, awaiting therapeutic INR. - Current Medication List Current Medications: Active Medications Acetaminophen (Tylenol -) 650 mg PO Q6H PRN PRN Reason: PAIN 1-5 Last Admin: 09/15/17 05:25 Dose: 650 mg Acetaminophen (Tylenol -) 325 mg PO Q8H PRN PRN Reason: PAIN SCALE 6-10 Last Admin: 09/13/17 21:23 Dose: 325 mg Clotrimazole (Lotrisone Cream (Small Tube)) 1 applic TP BID [facility] Last Admin: 09/14/17 21:31 Dose: 1 applic Piperacillin Sod/Tazobactam (Sod 2.25 gm/ Dextrose) 50 mls @ 100 mls/hr IVPB Q8H-IV [facility]; Protocol Last Admin: 09/15/17 01:16 Dose: 100 mls/hr Sodium Chloride (Normal Saline -) 250 mls @ 3,000 mls/hr IV PRN PRN PRN Reason: Hypotension during Dialysis Stop: 09/15/17 14:35 Insulin Aspart (Novolog Vial Sliding Scale -) 1 vial SQ TIDAC [facility]; Protocol Last Admin: 09/15/17 06:05 Dose: Not Given Levothyroxine Sodium (Synthroid -) 75 mcg PO ACBK [facility] Last Admin: 09/15/17 06:26 Dose: 75 mcg Melatonin (Melatonin) 5 mg PO HS PRN PRN Reason: INSOMNIA Last Admin: 09/15/17 02:30 Dose: 5 mg Metoprolol Succinate (Toprol Xl -) 12.5 mg PO DAILY [facility] Last Admin: 09/14/17 09:46 Dose: 12.5 mg Multivit/Ca Carb/B Cmplx/FA/Prenat (Nephro-Fer -) 1 tablet PO DAILY [facility] Last Admin: 09/14/17 09:45 Dose: 1 tablet Ondansetron HCl (Zofran Injection) 4 mg IVPUSH Q6H PRN PRN Reason: NAUSEA AND/OR VOMITING Oxycodone HCl (Roxicodone -) 10 mg PO Q6H PRN PRN Reason: PAIN 6-10 Last Admin: 09/15/17 08:16 Dose: 10 mg Sacubitril/Valsartan (Entresto 24 Mg-26 Mg Tablet) 1 tab PO BID [facility] Last Admin: 09/14/17 21:28 Dose: 1 tab Senna (Senna -) 2 tab PO HS [facility] Last Admin: 09/14/17 21:28 Dose: 2 tab Sitagliptin Phosphate (Januvia -) 25 mg PO 0700 [facility] Last Admin: 09/15/17 06:26 Dose: 25 mg Thiamine HCl (Vitamin B1 -) 100 mg PO DAILY [facility] Last Admin: 09/14/17 09:45 Dose: 100 mg Warfarin Sodium (Coumadin -) 4 mg PO DAILY@1800 [facility] Last Admin: 09/14/17 18:51 Dose: 4 mg - Objective Vital Signs: Vital Signs Temperature 98.2 F 09/15/17 06:00 Pulse Rate 66 09/15/17 06:00 Respiratory Rate 18 09/15/17 06:00 Blood Pressure 99/56 09/15/17 06:00 O2 Sat by Pulse Oximetry (%) 99 09/15/17 08:23 Constitutional: Yes: No Distress, Calm Neck: Yes: Supple Cardiovascular: Yes: Pulse Irregular Respiratory: Yes: Regular, Diminished Gastrointestinal: Yes: Normal Bowel Sounds, Soft Extremities: Yes: Amputation (Right TMA) Edema: No Wound/Incision: Yes: Dressing Dry and Intact Labs: CBC, BMP 09/13/17 07:30 09/13/17 07:30 INR, PTT INR 1.42 (0.83-1.09) H 09/15/17 07:00 Problem List - Problems (1) Chronic anticoagulation Code(s): Z79.01 - SHELTER (CURRENT) USE OF 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 (2) 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 Code(s): E11.9 - TYPE 2 DIABETES MELLITUS WITHOUT COMPLICATIONS Qualifiers: 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 type: type 2 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 helper insulin use: without termite treater helper use 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 complication status: without complication Qualified Code(s): E11.9 - Type 2 diabetes mellitus without complications (3) ESRD (end stage renal disease) Code(s): N18.6 - END STAGE RENAL DISEASE (4) HTN (hypertension) Code(s): I10 - ESSENTIAL (PRIMARY) HYPERTENSION Qualifiers: Hypertension type: essential hypertension Qualified Code(s): I10 - Essential (primary) hypertension (5) Osteomyelitis Code(s): M86.9 - OSTEOMYELITIS, UNSPECIFIED Qualifiers: Osteomyelitis type: other Osteomyelitis location: foot Laterality: right Qualified Code(s): M86.8X7 - Other osteomyelitis, ankle and foot (6) Amputated toe of right foot Code(s): Z89.421 - ACQUIRED ABSENCE OF OTHER RIGHT TOE(S) (7) Atrial fibrillation Code(s): I48.91 - UNSPECIFIED ATRIAL FIBRILLATION Qualifiers: Atrial fibrillation type: permanent Qualified Code(s): I48.2 - Chronic atrial fibrillation (8) Cardiomyopathy Code(s): I42.9 - CARDIOMYOPATHY, UNSPECIFIED Qualifiers: Cardiomyopathy type: unspecified Qualified Code(s): I42.9 - Cardiomyopathy , unspecified (9) Hypothyroid Code(s): E03.9 - HYPOTHYROIDISM, UNSPECIFIED Qualifiers: Hypothyroidism type: unspecified Qualified Code(s): E03.9 - Hypothyroidism , unspecified (10) ICD (implantable cardioverter-defibrillator) in place Code(s): Z95.810 - PRESENCE OF AUTOMATIC (IMPLANTABLE) CARDIAC DEFIBRILLATOR (11) Pericardial effusion Code(s): I31.3 - PERICARDIAL EFFUSION (NONINFLAMMATORY) (12) Status post peripheral artery angioplasty Code(s): Z98.62 - PERIPHERAL VASCULAR ANGIOPLASTY STATUS (13) Anemia Code(s): D64.9 - ANEMIA, UNSPECIFIED Qualifiers: Anemia type: due to chronic kidney disease Assessment/Plan 09/12/2017 Echo: Moderate pericardial effusion, no tamponade, mildly dilated LV with severely decreased LV fxn, mild-mod dilated RV with severely decreased RV fxn, mod-severe MUKUL, mild MR, mild-mod TR, mild AR 1. Peripheral artery disease and gangrene right forefoot post right tibial revacularization and POD#3 debridement of bone and soft tissue with transmetatarsal amputation 2. ESRD on HD 3. Persistent AF with subtherapeutic INR 4. Dilated cardiomyopathy with LV systolic dysfunction s/p ICD 5. DM 6. HTN 7. Pericardial effusion 8. Hypothyroidism 9. History of colon CA s/p chemotherapy 10. Anemia of chronic kidney disease PLAN: 1. Continue Metoprolol 12.5 qd 2. Continue Entresto 24/26 bid and monitor renal function and electrolytes 3. HD as per Renal service, suspect pericardial effusion is due to uremic pericarditis and treated with HD, pericardiocentesis not indicated 4. Echocardiography was reviewed and does not show any changes compared to study in July of this year. 5. Continue coumadin per INR as post-op hemostasis achieved 6. Complete empiric abx course 7. Food And Beverage Analyst: Dr. Ghassan Durant
[2017-09-15] MEDS: THIAMINE HCL 100 MG TABLET (FP) PO SCH (09:12)
[2017-09-15] MEDS: metoPROLOL SUCCINATE 25 MG TAB.SR.24H (FP) PO SCH (09:12)
[2017-09-15] MEDS: VITAMIN B COMP W-C 1 EA TABLET PO SCH (09:12)
[2017-09-15] MEDS: SACUBITRIL/VALSARTAN 24 MG-26 MG TABLET PO SCH ×2 (09:13→22:08)
[2017-09-15] MEDS: CLOTRIMAZOLE/BETAMET DIPROP 15 GM TUBE TP SCH ×2 (09:17→22:51)
--- NOTE | 2017-09-15 10:16 | PN ---
Progress Note (short form) - Note Progress Note: patient seen and examined. Comfortable Denies pain Postop day #3 Afebrile Vital Signs Temp 98.2 F 09/15/17 06:00 Pulse 66 09/15/17 06:00 Resp 18 09/15/17 06:00 BP 99/56 09/15/17 06:00 Pulse Ox 99 09/15/17 08:23 Intake & Output 09/14/17 09/14/17 09/15/17 11:59 23:59 11:59 Intake Total 300 400 50 Balance 300 400 50 Weight 200 lb 1 oz 201 lb Intake: IV 50 PICC line 50 IVPB 100 Oral 200 400 Other: Voiding Method Urinal Toilet Toilet # Unmeasured Voids Void 0 Bowel Movement No # Bowel Movements 1 Weight Measurement Method Built in Bedscale Built in Bedscale Active Medications Acetaminophen (Tylenol -) 650 mg PO Q6H PRN PRN Reason: PAIN 1-5 Last Admin: 09/15/17 05:25 Dose: 650 mg Acetaminophen (Tylenol -) 325 mg PO Q8H PRN PRN Reason: PAIN SCALE 6-10 Last Admin: 09/13/17 21:23 Dose: 325 mg Clotrimazole (Lotrisone Cream (Small Tube)) 1 applic TP BID [facility] Last Admin: 09/15/17 09:17 Dose: 1 applic Piperacillin Sod/Tazobactam (Sod 2.25 gm/ Dextrose) 50 mls @ 100 mls/hr IVPB Q8H-IV [facility]; Protocol Last Admin: 09/15/17 09:13 Dose: 100 mls/hr Sodium Chloride (Normal Saline -) 250 mls @ 3,000 mls/hr IV PRN PRN PRN Reason: Hypotension during Dialysis Stop: 09/15/17 14:35 Insulin Aspart (Novolog Vial Sliding Scale -) 1 vial SQ TIDAC [facility]; Protocol Last Admin: 09/15/17 06:05 Dose: Not Given Levothyroxine Sodium (Synthroid -) 75 mcg PO ACBK [facility] Last Admin: 09/15/17 06:26 Dose: 75 mcg Melatonin (Melatonin) 5 mg PO HS PRN PRN Reason: INSOMNIA Last Admin: 09/15/17 02:30 Dose: 5 mg Metoprolol Succinate (Toprol Xl -) 12.5 mg PO DAILY [facility] Last Admin: 09/15/17 09:12 Dose: 12.5 mg Multivit/Ca Carb/B Cmplx/FA/Prenat (Nephro-Fer -) 1 tablet PO DAILY [facility] Last Admin: 09/15/17 09:12 Dose: 1 tablet Ondansetron HCl (Zofran Injection) 4 mg IVPUSH Q6H PRN PRN Reason: NAUSEA AND/OR VOMITING Oxycodone HCl (Roxicodone -) 10 mg PO Q6H PRN PRN Reason: PAIN 6-10 Last Admin: 09/15/17 08:16 Dose: 10 mg Sacubitril/Valsartan (Entresto 24 Mg-26 Mg Tablet) 1 tab PO BID [facility] Last Admin: 09/15/17 09:13 Dose: 1 tab Senna (Senna -) 2 tab PO HS [facility] Last Admin: 09/14/17 21:28 Dose: 2 tab Sitagliptin Phosphate (Januvia -) 25 mg PO 0700 [facility] Last Admin: 09/15/17 06:26 Dose: 25 mg Thiamine HCl (Vitamin B1 -) 100 mg PO DAILY [facility] Last Admin: 09/15/17 09:12 Dose: 100 mg Warfarin Sodium (Coumadin -) 4 mg PO DAILY@1800 [facility] Last Admin: 09/14/17 18:51 Dose: 4 mg Warfarin Sodium (Coumadin -) 2 mg PO ONCE@1800 ONE Stop: 09/15/17 18:01 Warfarin Sodium (Coumadin -) 2 mg PO ONCE@1800 ONE Stop: 09/15/17 18:01 CBC, BMP 09/13/17 07:30 09/13/17 07:30 INR, PTT INR 1.42 (0.83-1.09) H 09/15/17 07:00 Microbiology 09/12/17 13:30 Gram Stain - Final Foot - Rt Transmetatarsal Amp. Site Wound Culture - Preliminary Yeast Like Organism 09/12/17 13:30 Gram Stain - Final Foot - Rt Transmetatarsal Amp. Site Wound Culture - Preliminary NO GROWTH OBTAINED AFTER 24 HOURS INCUBATION, REINCUBATED. Physical Examination Constitutional: Yes: No Distress, Calm.Comfortable. Eyes: Yes: Conjunctiva Clear Neck: Yes: Supple/ no jvd Cardiovascular: Yes: Regular Rate and Rhythm Respiratory: Yes: Bilateral breath sounds Gastrointestinal: Yes: Normal Bowel Sounds, Soft. nontender Edema: No Wound/Incision: Yes: Dressing Dry and Intact Neurological: Yes: Alert Psychiatric: Yes: Alert Assessment/Plan Stable pod # 3 overall better. pain control dialysis per renal monitor bgm. ID to follow Antibiotics Will follow Extra Coumadin today Monitor INR Problem List - Problems (1) ESRD (end stage renal disease) Code(s): N18.6 - END STAGE RENAL DISEASE (2) Osteomyelitis Code(s): M86.9 - OSTEOMYELITIS, UNSPECIFIED Qualifiers: Osteomyelitis type: other Osteomyelitis location: foot Laterality: right Qualified Code(s): M86.8X7 - Other osteomyelitis, ankle and foot (3) Amputated toe of right foot Code(s): Z89.421 - ACQUIRED ABSENCE OF OTHER RIGHT TOE(S) (4) Atrial fibrillation Code(s): I48.91 - UNSPECIFIED ATRIAL FIBRILLATION Qualifiers: Atrial fibrillation type: permanent Qualified Code(s): I48.2 - Chronic atrial fibrillation (5) Cardiomyopathy Code(s): I42.9 - CARDIOMYOPATHY, UNSPECIFIED Qualifiers: Cardiomyopathy type: unspecified Qualified Code(s): I42.9 - Cardiomyopathy , unspecified (6) Hypothyroid Code(s): E03.9 - HYPOTHYROIDISM, UNSPECIFIED Qualifiers: Hypothyroidism type: unspecified Qualified Code(s): E03.9 - Hypothyroidism , unspecified (7) ICD (implantable cardioverter-defibrillator) in place Code(s): Z95.810 - PRESENCE OF AUTOMATIC (IMPLANTABLE) CARDIAC DEFIBRILLATOR (8) Pericardial effusion Code(s): I31.3 - PERICARDIAL EFFUSION (NONINFLAMMATORY)
--- NOTE | 2017-09-15 12:02 | PN ---
Progress Note, Physician History of Present Illness: patient stable doing well no complaints post op no issues - Current Medication List Current Medications: Active Medications Acetaminophen (Tylenol -) 650 mg PO Q6H PRN PRN Reason: PAIN 1-5 Last Admin: 09/15/17 05:25 Dose: 650 mg Acetaminophen (Tylenol -) 325 mg PO Q8H PRN PRN Reason: PAIN SCALE 6-10 Last Admin: 09/13/17 21:23 Dose: 325 mg Clotrimazole (Lotrisone Cream (Small Tube)) 1 applic TP BID [facility] Last Admin: 09/15/17 09:17 Dose: 1 applic Sodium Chloride (Normal Saline -) 250 mls @ 3,000 mls/hr IV PRN PRN PRN Reason: Hypotension during Dialysis Stop: 09/15/17 14:35 Insulin Aspart (Novolog Vial Sliding Scale -) 1 vial SQ TIDAC [facility]; Protocol Last Admin: 09/15/17 11:27 Dose: Not Given Levothyroxine Sodium (Synthroid -) 75 mcg PO ACBK [facility] Last Admin: 09/15/17 06:26 Dose: 75 mcg Melatonin (Melatonin) 5 mg PO HS PRN PRN Reason: INSOMNIA Last Admin: 09/15/17 02:30 Dose: 5 mg Metoprolol Succinate (Toprol Xl -) 12.5 mg PO DAILY [facility] Last Admin: 09/15/17 09:12 Dose: 12.5 mg Multivit/Ca Carb/B Cmplx/FA/Prenat (Nephro-Fer -) 1 tablet PO DAILY [facility] Last Admin: 09/15/17 09:12 Dose: 1 tablet Ondansetron HCl (Zofran Injection) 4 mg IVPUSH Q6H PRN PRN Reason: NAUSEA AND/OR VOMITING Oxycodone HCl (Roxicodone -) 10 mg PO Q6H PRN PRN Reason: PAIN 6-10 Last Admin: 09/15/17 08:16 Dose: 10 mg Sacubitril/Valsartan (Entresto 24 Mg-26 Mg Tablet) 1 tab PO BID [facility] Last Admin: 09/15/17 09:13 Dose: 1 tab Senna (Senna -) 2 tab PO HS [facility] Last Admin: 09/14/17 21:28 Dose: 2 tab Sitagliptin Phosphate (Januvia -) 25 mg PO 0700 [facility] Last Admin: 09/15/17 06:26 Dose: 25 mg Thiamine HCl (Vitamin B1 -) 100 mg PO DAILY [facility] Last Admin: 09/15/17 09:12 Dose: 100 mg Warfarin Sodium (Coumadin -) 4 mg PO DAILY@1800 [facility] Last Admin: 09/14/17 18:51 Dose: 4 mg Warfarin Sodium (Coumadin -) 2 mg PO ONCE@1800 ONE Stop: 09/15/17 18:01 - Objective Vital Signs: Vital Signs Temperature 98.2 F 09/15/17 10:00 Pulse Rate 68 09/15/17 10:00 Respiratory Rate 18 09/15/17 10:00 Blood Pressure 100/53 09/15/17 10:00 O2 Sat by Pulse Oximetry (%) 99 09/15/17 08:23 Constitutional: Yes: No Distress, Calm Cardiovascular: Yes: Regular Rate and Rhythm Respiratory: Yes: Regular, CTA Bilaterally Gastrointestinal: Yes: Normal Bowel Sounds, Soft Musculoskeletal: Yes: WNL Extremities: Yes: Other Wound/Incision: Yes: Dressing Dry and Intact Neurological: Yes: Alert, Oriented Psychiatric: Yes: Alert, Oriented Labs: CBC, BMP 09/13/17 07:30 09/13/17 07:30 INR, PTT INR 1.42 (0.83-1.09) H 09/15/17 07:00 Assessment/Plan Problem List - Problems (1) ESRD (end stage renal disease) Code(s): N18.6 - END STAGE RENAL DISEASE (2) Osteomyelitis Code(s): M86.9 - OSTEOMYELITIS, UNSPECIFIED Qualifiers: Osteomyelitis type: other Osteomyelitis location: foot Laterality: right Qualified Code(s): M86.8X7 - Other osteomyelitis, ankle and foot (3) Amputated toe of right foot Code(s): Z89.421 - ACQUIRED ABSENCE OF OTHER RIGHT TOE(S) (4) Atrial fibrillation Code(s): I48.91 - UNSPECIFIED ATRIAL FIBRILLATION Qualifiers: (5) Cardiomyopathy Code(s): I42.9 - CARDIOMYOPATHY, UNSPECIFIED Qualifiers: Cardiomyopathy type: unspecified Qualified Code(s): I42.9 - Cardiomyopathy , unspecified (6) Hypothyroid Code(s): E03.9 - HYPOTHYROIDISM, UNSPECIFIED Qualifiers: Hypothyroidism type: unspecified Qualified Code(s): E03.9 - Hypothyroidism , unspecified (7) ICD (implantable cardioverter-defibrillator) in place Code(s): Z95.810 - PRESENCE OF AUTOMATIC (IMPLANTABLE) CARDIAC DEFIBRILLATOR (8) Pericardial effusion Code(s): I31.3 - PERICARDIAL EFFUSION (NONINFLAMMATORY) plan cx reports noted will stop iv abx wound care rest as per the team
--- NOTE | 2017-09-15 14:53 | PATH ---
Surgical Pathology Report Patient Name: BETTYE VALERIO [facility]. Rec. #: [id number] /Age/Gender: 1945 (Age: 72) / M Account: [id number] Location: [address] [place] [address]/[facility] Taken: 09/12/2017 Received: 09/13/2017 Reported: 09/15/2017 Physicians: SAMUEL Cunningham M.D. Specimen(s) Received A: 5TH METATARSAL RIGHT FOOT B: GANGRENOUS TOES 2ND AND 3RD RIGHT FOOT C: 4TH METATARSAL HEAD RIGHT FOOT D: 3RD METATARSAL HEAD RIGHT FOOT E: 2ND METATARSAL HEAD RIGHT FOOT Clinical History Osteomyelitis Final Diagnosis A. 5TH METATARSAL RIGHT FOOT, RESECTION: PORTION OF BONE WITH FOCAL REACTIVE CHANGE. NO HISTOLOGIC EVIDENCE OF OSTEOMYELITIS. B. GANGRENOUS TOES 2ND AND 3RD, RIGHT FOOT, AMPUTATION: AMPUTATED TOES SHOWING GANGRENOUS NECROSIS, ACUTE AND CHRONIC INFLAMMATION WITH FOCAL ABSCESS FORMATION. BONE WITH REACTIVE CHANGE, NO HISTOLOGIC EVIDENCE OF OSTEOMYELITIS. VIABLE SKIN AND SOFT TISSUE MARGIN C. 4TH METATARSAL HEAD, RIGHT FOOT, RESECTION: PORTION OF BONE WITH FOCAL REACTIVE CHANGE. NO HISTOLOGIC EVIDENCE OF OSTEOMYELITIS. D. 3RD METATARSAL HEAD, RIGHT FOOT, RESECTION: PORTION OF BONE WITH FOCAL REACTIVE CHANGE. NO HISTOLOGIC EVIDENCE OF OSTEOMYELITIS. E. 2ND METATARSAL HEAD, RIGHT FOOT, RESECTION: PORTION OF BONE WITH FOCAL REACTIVE CHANGE. NO HISTOLOGIC EVIDENCE OF OSTEOMYELITIS. Electronically Signed Dania Luo M.D. Gross Description A. Received in formalin, labeled "5th metatarsal right foot" is a portion of bone and attached scanty fibrous tissue with articular surface at one end, measuring 2 x 1.5 x 1.2 cm. The bone is bisected and show yellow and hard trabecular bone. The bone is decalcified and senior human resources representative sections are submitted in one cassette. B. Received in formalin, labeled "gangrenous toe second and third right foot", and consists of second (5 x 1.5 x 1.5cm) and third (4 x 1.5 x 1.2cm) amputated toes. The skin surface shows focal murray dark brown necrotic change. Upper Extremity Surgeon sections are submitted in 3 cassettes. Cassette1: Skin and soft tissue from second toe, margin inked blue; 2 skin and soft tissue from third toe, margin inked blue; 3 bone from second and third toe. C. Received in formalin, labeled "fourth metatarsal head right foot" is a portion of bone and attached scanty fibrous tissue with articular surface at one end, measuring 2 x 1 x 1cm. The bone is bisected and show yellow and hard trabecular bone. The bone is decalcified and senior human resources representative sections are submitted in one cassette. D. Received in formalin, labeled "third metatarsal head right third" is a portion of bone with articular surface at one end, measuring 2.5 x 1.5 x 1.0 cm. The bone is bisected and show yellow and hard trabecular bone. The bone is decalcified and senior human resources representative sections are submitted in one cassette. E. Received in formalin, labeled "second metatarsal head right foot" is a portion of bone with articular surface at one end, measuring 2 x 1.7 x 1.5 cm. The bone is bisected and show yellow and hard trabecular bone. The bone is decalcified and senior human resources representative sections are submitted in one cassette. __ JCARLOS/09/14/2017 olga/09/14/2017
[2017-09-15] MEDS ORDERED: SODIUM CHLORIDE 250 ML IV PRN (14:57)
--- NOTE | 2017-09-15 14:57 | PN ---
Progress Note, Physician History of Present Illness: Pt seen and examined at bedside. He is awake and alert. He denies shortness of breath. - Current Medication List Current Medications: Active Medications Acetaminophen (Tylenol -) 650 mg PO Q6H PRN PRN Reason: PAIN 1-5 Last Admin: 09/15/17 05:25 Dose: 650 mg Acetaminophen (Tylenol -) 325 mg PO Q8H PRN PRN Reason: PAIN SCALE 6-10 Last Admin: 09/13/17 21:23 Dose: 325 mg Clotrimazole (Lotrisone Cream (Small Tube)) 1 applic TP BID [facility] Last Admin: 09/15/17 09:17 Dose: 1 applic Sodium Chloride (Normal Saline -) 250 mls @ 3,000 mls/hr IV PRN PRN PRN Reason: Hypotension during Dialysis Stop: 09/15/17 14:35 Piperacillin Sod/Tazobactam (Sod 2.25 gm/ Dextrose) 50 mls @ 100 mls/hr IVPB Q8H-IV [facility]; Protocol Insulin Aspart (Novolog Vial Sliding Scale -) 1 vial SQ TIDAC [facility]; Protocol Last Admin: 09/15/17 11:27 Dose: Not Given Levothyroxine Sodium (Synthroid -) 75 mcg PO ACBK [facility] Last Admin: 09/15/17 06:26 Dose: 75 mcg Melatonin (Melatonin) 5 mg PO HS PRN PRN Reason: INSOMNIA Last Admin: 09/15/17 02:30 Dose: 5 mg Metoprolol Succinate (Toprol Xl -) 12.5 mg PO DAILY [facility] Last Admin: 09/15/17 09:12 Dose: 12.5 mg Multivit/Ca Carb/B Cmplx/FA/Prenat (Nephro-Fer -) 1 tablet PO DAILY [facility] Last Admin: 09/15/17 09:12 Dose: 1 tablet Ondansetron HCl (Zofran Injection) 4 mg IVPUSH Q6H PRN PRN Reason: NAUSEA AND/OR VOMITING Oxycodone HCl (Roxicodone -) 10 mg PO Q6H PRN PRN Reason: PAIN 6-10 Last Admin: 09/15/17 14:11 Dose: 10 mg Sacubitril/Valsartan (Entresto 24 Mg-26 Mg Tablet) 1 tab PO BID [facility] Last Admin: 09/15/17 09:13 Dose: 1 tab Senna (Senna -) 2 tab PO HS [facility] Last Admin: 09/14/17 21:28 Dose: 2 tab Sitagliptin Phosphate (Januvia -) 25 mg PO 0700 [facility] Last Admin: 09/15/17 06:26 Dose: 25 mg Thiamine HCl (Vitamin B1 -) 100 mg PO DAILY [facility] Last Admin: 09/15/17 09:12 Dose: 100 mg Warfarin Sodium (Coumadin -) 4 mg PO DAILY@1800 [facility] Last Admin: 09/14/17 18:51 Dose: 4 mg Warfarin Sodium (Coumadin -) 2 mg PO ONCE@1800 ONE Stop: 09/15/17 18:01 - Objective Vital Signs: Vital Signs Temperature 98.2 F 09/15/17 10:00 Pulse Rate 68 09/15/17 10:00 Respiratory Rate 18 09/15/17 10:00 Blood Pressure 100/53 09/15/17 10:00 O2 Sat by Pulse Oximetry (%) 99 09/15/17 08:23 Constitutional: Yes: Calm Eyes: Yes: Conjunctiva Clear HENT: Yes: Atraumatic Neck: Yes: Supple Cardiovascular: Yes: S1, S2 Respiratory: Yes: CTA Bilaterally Gastrointestinal: Yes: Soft Genitourinary: Yes: WNL Musculoskeletal: Yes: WNL Edema: No Integumentary: Yes: WNL Neurological: Yes: Oriented Psychiatric: Yes: Oriented Labs: CBC, BMP 09/13/17 07:30 09/13/17 07:30 INR, PTT INR 1.42 (0.83-1.09) H 09/15/17 07:00 Problem List - Problems (1) ESRD (end stage renal disease) Code(s): N18.6 - END STAGE RENAL DISEASE (2) Osteomyelitis Code(s): M86.9 - OSTEOMYELITIS, UNSPECIFIED Qualifiers: Osteomyelitis type: other Osteomyelitis location: foot Laterality: right Qualified Code(s): M86.8X7 - Other osteomyelitis, ankle and foot (3) Atrial fibrillation Code(s): I48.91 - UNSPECIFIED ATRIAL FIBRILLATION Qualifiers: Atrial fibrillation type: permanent Qualified Code(s): I48.2 - Chronic atrial fibrillation Assessment/Plan Current Medications Generic Name Dose Route Start Last Admin Trade Name Freq PRN Reason Stop Dose Admin Acetaminophen 650 mg 09/12/17 14:28 09/15/17 05:25 Tylenol - PO 650 mg Q6H PRN Administration PAIN 1-5 Acetaminophen 325 mg 09/12/17 14:28 09/13/17 21:23 Tylenol - PO 325 mg Q8H PRN Administration PAIN SCALE 6-10 Clotrimazole 1 applic 09/12/17 22:00 09/15/17 09:17 Lotrisone Cream (Small Tube) TP 1 applic BID [facility] Administration Sodium Chloride 250 mls @ 3,000 mls/hr 09/14/17 14:35 Normal Saline - IV 09/15/17 14:35 PRN PRN Hypotension during Dialysis Piperacillin Sod/Tazobactam 50 mls @ 100 mls/hr 09/15/17 18:00 Sod 2.25 gm/ Dextrose IVPB Q8H-IV [facility] Protocol Insulin Aspart 1 vial 09/12/17 16:30 09/15/17 11:27 Novolog Vial Sliding Scale - SQ Not Given TIDAC [facility] Protocol Levothyroxine Sodium 75 mcg 09/13/17 07:00 09/15/17 06:26 Synthroid - PO 75 mcg ACBK [facility] Administration Melatonin 5 mg 09/12/17 22:00 09/15/17 02:30 Melatonin PO 5 mg HS PRN Administration INSOMNIA Metoprolol Succinate 12.5 mg 09/13/17 10:00 09/15/17 09:12 Toprol Xl - PO 12.5 mg DAILY [facility] Administration Multivit/Ca Carb/B Cmplx/FA/Prenat 1 tablet 09/13/17 10:00 09/15/17 09:12 Nephro-Fer - PO 1 tablet DAILY [facility] Administration Ondansetron HCl 4 mg 09/12/17 14:28 Zofran Injection IVPUSH Q6H PRN NAUSEA AND/OR VOMITING Oxycodone HCl 10 mg 09/14/17 13:42 09/15/17 14:11 Roxicodone - PO 10 mg Q6H PRN Administration PAIN 6-10 Sacubitril/Valsartan 1 tab 09/12/17 22:00 09/15/17 09:13 Entresto 24 Mg-26 Mg Tablet PO 1 tab BID [facility] Administration Senna 2 tab 09/12/17 22:00 09/14/17 21:28 Senna - PO 2 tab HS [facility] Administration Sitagliptin Phosphate 25 mg 09/13/17 07:00 09/15/17 06:26 Januvia - PO 25 mg 0700 [facility] Administration Thiamine HCl 100 mg 09/13/17 10:00 09/15/17 09:12 Vitamin B1 - PO 100 mg DAILY [facility] Administration Warfarin Sodium 4 mg 09/14/17 18:00 09/14/17 18:51 Coumadin - PO 4 mg DAILY@1800 [facility] Administration Warfarin Sodium 2 mg 09/15/17 18:00 Coumadin - PO 09/15/17 18:01 ONCE@1800 ONE Impression 1. ESRD 2. hx pericardial effusion 3. hx pneumopericardium 4. hypothyroidism 5. a-fib 6. hypotension 7. hx of colon cancer 8. CHF 9. DM 10. hx of PE 11. CAD 12. foot ulcer Plan - spoke to ID, pt still on zosyn - podiatry follow up - HD in am if not discharged - repeat labs in am - cont wound care to foot
--- NOTE | 2017-09-15 15:04 | PN ---
Progress Note (short form) - Note Progress Note: POD#3. Pain being managed. vss, Tmax 98.2 +clean dry dressing intact on right foot, retention sutures intact, wbc=3.9 normal post op day3 Dressing removed. Redress with betadine dressing. Post op shoe to ambulate. Patient may go home from podiatry standpoint. IV home with ABX. Wound care at [facility]. HBO in place. will follow till dc.
[2017-09-15] MEDS: WARFARIN NA 2 MG TABLET (UD) PO SCH (17:39)
[2017-09-15] MEDS ORDERED: WARFARIN NA 2 MG TABLET (UD) PO ONE ×2 (18:00)
[2017-09-15] MEDS ORDERED: morphine SULFATE 4 MG/ML VIAL IVPUSH ONE ×2 (18:45→19:15)
[2017-09-15] MEDS ORDERED: MORPHINE SULFATE 2 MG/ML VIAL IVPUSH ONE (19:00)
[2017-09-15] MEDS ORDERED: morphine SULFATE 4 MG/ML VIAL ONE (19:09)
[2017-09-15] MEDS ORDERED: PT OWN MED DRAWER 7, Y5N ONE (22:03)
[2017-09-15] MEDS: SENNOSIDES 8.6MG TABLET (FP) PO SCH (22:07)
[2017-09-15] MEDS ORDERED: POLYETHYLENE GLYCOL 3350 119 GM BTL PO ONE (23:00)
[2017-09-16] MEDS ORDERED: DEXTROSE 5%-WATER - 50 ML IVPB ONE ×3 (01:33→17:45)
[2017-09-16] MEDS ORDERED: PIPERACILLIN/TAZOBACTAM 2.25 GM VIAL IVPB ONE ×3 (01:33→17:45)
[2017-09-16] MEDS: PIPERACILLIN/TAZOB 2.25 GM 2.25 GM in DEXTROSE 5%-WATER - 50 ML IVPB SCH ×3 (01:45→18:11)
[2017-09-16] MEDS: oxyCODONE HCL 5 MG TABLET PO PRN ×4 (03:26→21:52)
[2017-09-16] MEDS: sitaGLIPtin PHOSPHATE 25 MG TABLET (FP) PO SCH (06:32)
[2017-09-16] MEDS: LEVOTHYROXINE NA 75 MCG TABLET (FP) PO SCH (06:32)
[2017-09-16] MEDS: INSULIN SLIDING SCALE (NOVOLOG) 1 VIAL SQ SCH ×3 (06:37→16:22)
[2017-09-16] MEDS: ACETAMINOPHEN 325 MG TABLET (FP) PO PRN ×2 (08:02→19:59)
[2017-09-16] MEDS ORDERED: EPOETIN ALFA 10,000 UNIT/1 ML VIAL IVPUSH ONE (09:00)
[2017-09-16 09:03] LABS: HEMATOCRIT 30.3 % (35.4-49); HEMOGLOBIN 9.8 GM/dL (11.7-16.9); MCH 29.7 pg (25.7-33.7); MCHC 32.4 g/dl (32.0-35.9); MEAN CELL VOLUME 91.7 fl (80-96); MEAN PLT VOLUME 9.4 fl (7.5-11.1); PLATELET COUNT 87 K/MM3 (134-434); RDW 18.5 % (11.9-15.9); WHITE BLOOD COUNT 4.4 K/mm3 (4.0-10.0)
[2017-09-16 09:21] LABS: INR 1.42 (0.83-1.09); PROTHROMBIN TIME (PATIENT) 16.1 SEC (9.7-13.0)
[2017-09-16 09:25] LABS: ANION GAP 9 (8-16); BLOOD UREA NITROGEN 17 mg/dL (7-18); CALCIUM 9.1 mg/dL (8.5-10.1); CHLORIDE 93 mmol/L (98-107); CO2 30 mmol/L (21-32); CREATININE 5.9 mg/dL (0.7-1.3); GLUCOSE,RANDOM 104 mg/dL (74-106); POTASSIUM 3.3 mmol/L (3.5-5.1); SODIUM 132 mmol/L (136-145)
[2017-09-16] MEDS: CLOTRIMAZOLE/BETAMET DIPROP 15 GM TUBE TP SCH ×2 (10:00→21:22)
[2017-09-16] MEDS ORDERED: morphine SULFATE 4 MG/ML VIAL IVPUSH PRN (11:41)
--- NOTE | 2017-09-16 11:43 | PN ---
Progress Note (short form) - Note Progress Note: Pt seen in dialysis still having pain requesting morphine--says worse/ throbbing at times. I'll follow-up noted--- especially ID Vital Signs Temp 97.6 F 09/16/17 08:18 Pulse 62 09/16/17 11:20 Resp 18 09/16/17 11:20 BP 99/60 09/16/17 11:20 Pulse Ox 96 09/16/17 08:15 Intake & Output 09/15/17 09/15/17 09/16/17 11:59 23:59 11:59 Intake Total 100 550 50 Balance 100 550 50 Weight 201 lb 200 lb 5 oz Intake: IV 50 PICC line 50 IVPB 50 50 Oral 550 Other: Voiding Method Toilet Toilet Toilet # Unmeasured Voids Void 2 Bowel Movement No # Bowel Movements 1 Weight Measurement Method Built in Bedscale Built in Bedscale Active Medications Acetaminophen (Tylenol -) 650 mg PO Q6H PRN PRN Reason: PAIN 1-5 Last Admin: 09/16/17 08:02 Dose: 650 mg Acetaminophen (Tylenol -) 325 mg PO Q8H PRN PRN Reason: PAIN SCALE 6-10 Last Admin: 09/13/17 21:23 Dose: 325 mg Albumin Human (Albumin Human 25%) 12.5 gm IVPB Q30M [facility] Clotrimazole (Lotrisone Cream (Small Tube)) 1 applic TP BID [facility] Last Admin: 09/15/17 22:51 Dose: 1 applic Sodium Chloride (Normal Saline -) 250 mls @ 3,000 mls/hr IV PRN PRN PRN Reason: Hypotension during Dialysis Stop: 09/15/17 14:35 Piperacillin Sod/Tazobactam (Sod 2.25 gm/ Dextrose) 50 mls @ 100 mls/hr IVPB Q8H-IV [facility]; Protocol Last Admin: 09/16/17 01:45 Dose: 100 mls/hr Sodium Chloride (Normal Saline -) 250 mls @ 3,000 mls/hr IV PRN PRN PRN Reason: Hypotension during Dialysis Stop: 09/16/17 14:57 Insulin Aspart (Novolog Vial Sliding Scale -) 1 vial SQ TIDAC [facility]; Protocol Last Admin: 09/16/17 06:37 Dose: Not Given Levothyroxine Sodium (Synthroid -) 75 mcg PO ACBK [facility] Last Admin: 09/16/17 06:32 Dose: 75 mcg Melatonin (Melatonin) 5 mg PO HS PRN PRN Reason: INSOMNIA Last Admin: 09/15/17 22:51 Dose: 5 mg Metoprolol Succinate (Toprol Xl -) 12.5 mg PO DAILY [facility] Last Admin: 09/15/17 09:12 Dose: 12.5 mg Multivit/Ca Carb/B Cmplx/FA/Prenat (Nephro-Fer -) 1 tablet PO DAILY [facility] Last Admin: 09/15/17 09:12 Dose: 1 tablet Ondansetron HCl (Zofran Injection) 4 mg IVPUSH Q6H PRN PRN Reason: NAUSEA AND/OR VOMITING Oxycodone HCl (Roxicodone -) 10 mg PO Q6H PRN PRN Reason: PAIN 6-10 Last Admin: 09/16/17 09:45 Dose: 10 mg Sacubitril/Valsartan (Entresto 24 Mg-26 Mg Tablet) 1 tab PO BID [facility] Last Admin: 09/15/17 22:08 Dose: 1 tab Senna (Senna -) 2 tab PO HS [facility] Last Admin: 09/15/17 22:07 Dose: 2 tab Sitagliptin Phosphate (Januvia -) 25 mg PO 0700 [facility] Last Admin: 09/16/17 06:32 Dose: 25 mg Thiamine HCl (Vitamin B1 -) 100 mg PO DAILY [facility] Last Admin: 09/15/17 09:12 Dose: 100 mg Warfarin Sodium (Coumadin -) 6 mg PO DAILY@1800 [facility] CBC, BMP 09/16/17 08:15 09/16/17 08:15 Microbiology 09/12/17 13:30 Gram Stain - Final Foot - Rt Transmetatarsal Amp. Site Wound Culture - Final Yeast Like Organism Staphylococcus Coagulase Neg 09/12/17 13:30 Gram Stain - Final Foot - Rt Transmetatarsal Amp. Site Wound Culture - Final Staphylococcus Coagulase Neg INR, PTT INR 1.42 (0.83-1.09) H 09/16/17 08:15 Physical Examination Constitutional: Yes: No Distress, Calm.Comfortable. Eyes: Yes: Conjunctiva Clear Neck: Yes: Supple/ no jvd Cardiovascular: Yes: Regular Rate and Rhythm Respiratory: Yes: Bilateral breath sounds Gastrointestinal: Yes: Normal Bowel Sounds, Soft. non tender Edema: No Wound/Incision: Yes: Dressing Dry and Intact Neurological: Yes: Alert Psychiatric: Yes: Alert Assessment/Plan Stable pod # 4 overall better. pain control dialysis per renal monitor bgm. Antibiotics--as per ID patient has tunneled catheter Discharge planning discussed with nursing staff--- Will be likely on Monday Increase Coumadin dose--monitor Physical therapy increased pain medication Will follow Problem List - Problems (1) ESRD (end stage renal disease) Code(s): N18.6 - END STAGE RENAL DISEASE (2) Osteomyelitis Code(s): M86.9 - OSTEOMYELITIS, UNSPECIFIED Qualifiers: Osteomyelitis type: other Osteomyelitis location: foot Laterality: right Qualified Code(s): M86.8X7 - Other osteomyelitis, ankle and foot (3) Amputated toe of right foot Code(s): Z89.421 - ACQUIRED ABSENCE OF OTHER RIGHT TOE(S) (4) Atrial fibrillation Code(s): I48.91 - UNSPECIFIED ATRIAL FIBRILLATION Qualifiers: Atrial fibrillation type: permanent Qualified Code(s): I48.2 - Chronic atrial fibrillation (5) Cardiomyopathy Code(s): I42.9 - CARDIOMYOPATHY, UNSPECIFIED Qualifiers: Cardiomyopathy type: unspecified Qualified Code(s): I42.9 - Cardiomyopathy , unspecified (6) Hypothyroid Code(s): E03.9 - HYPOTHYROIDISM, UNSPECIFIED Qualifiers: Hypothyroidism type: unspecified Qualified Code(s): E03.9 - Hypothyroidism , unspecified (7) ICD (implantable cardioverter-defibrillator) in place Code(s): Z95.810 - PRESENCE OF AUTOMATIC (IMPLANTABLE) CARDIAC DEFIBRILLATOR (8) Pericardial effusion Code(s): I31.3 - PERICARDIAL EFFUSION (NONINFLAMMATORY)
--- NOTE | 2017-09-16 11:54 | PN ---
Progress Note, Physician History of Present Illness: Infectious Disease Progress Note: Pt seen and examined. Events noted. Pt currently in HD. c/o pain in foot but no other specific complaints. - Current Medication List Current Medications: Active Medications Acetaminophen (Tylenol -) 650 mg PO Q6H PRN PRN Reason: PAIN 1-5 Last Admin: 09/16/17 08:02 Dose: 650 mg Acetaminophen (Tylenol -) 325 mg PO Q8H PRN PRN Reason: PAIN SCALE 6-10 Last Admin: 09/13/17 21:23 Dose: 325 mg Albumin Human (Albumin Human 25%) 12.5 gm IVPB Q30M [facility] Clotrimazole (Lotrisone Cream (Small Tube)) 1 applic TP BID [facility] Last Admin: 09/15/17 22:51 Dose: 1 applic Sodium Chloride (Normal Saline -) 250 mls @ 3,000 mls/hr IV PRN PRN PRN Reason: Hypotension during Dialysis Stop: 09/15/17 14:35 Piperacillin Sod/Tazobactam (Sod 2.25 gm/ Dextrose) 50 mls @ 100 mls/hr IVPB Q8H-IV [facility]; Protocol Last Admin: 09/16/17 01:45 Dose: 100 mls/hr Sodium Chloride (Normal Saline -) 250 mls @ 3,000 mls/hr IV PRN PRN PRN Reason: Hypotension during Dialysis Stop: 09/16/17 14:57 Insulin Aspart (Novolog Vial Sliding Scale -) 1 vial SQ TIDAC [facility]; Protocol Last Admin: 09/16/17 06:37 Dose: Not Given Levothyroxine Sodium (Synthroid -) 75 mcg PO ACBK [facility] Last Admin: 09/16/17 06:32 Dose: 75 mcg Melatonin (Melatonin) 5 mg PO HS PRN PRN Reason: INSOMNIA Last Admin: 09/15/17 22:51 Dose: 5 mg Metoprolol Succinate (Toprol Xl -) 12.5 mg PO DAILY [facility] Last Admin: 09/15/17 09:12 Dose: 12.5 mg Morphine Sulfate (Morphine Injection -) 3 mg IVPUSH Q8H PRN PRN Reason: PAIN LEVEL 7 - 10 Multivit/Ca Carb/B Cmplx/FA/Prenat (Nephro-Fer -) 1 tablet PO DAILY [facility] Last Admin: 09/15/17 09:12 Dose: 1 tablet Ondansetron HCl (Zofran Injection) 4 mg IVPUSH Q6H PRN PRN Reason: NAUSEA AND/OR VOMITING Oxycodone HCl (Roxicodone -) 10 mg PO Q6H PRN PRN Reason: PAIN 6-10 Last Admin: 09/16/17 09:45 Dose: 10 mg Sacubitril/Valsartan (Entresto 24 Mg-26 Mg Tablet) 1 tab PO BID [facility] Last Admin: 09/15/17 22:08 Dose: 1 tab Senna (Senna -) 2 tab PO HS [facility] Last Admin: 09/15/17 22:07 Dose: 2 tab Sitagliptin Phosphate (Januvia -) 25 mg PO 0700 [facility] Last Admin: 09/16/17 06:32 Dose: 25 mg Thiamine HCl (Vitamin B1 -) 100 mg PO DAILY [facility] Last Admin: 09/15/17 09:12 Dose: 100 mg Warfarin Sodium (Coumadin -) 6 mg PO DAILY@1800 [facility] - Objective Vital Signs: Vital Signs Temperature 97.6 F 09/16/17 08:18 Pulse Rate 62 09/16/17 11:20 Respiratory Rate 18 09/16/17 11:20 Blood Pressure 99/60 09/16/17 11:20 O2 Sat by Pulse Oximetry (%) 96 09/16/17 08:15 Constitutional: Yes: No Distress, Calm Cardiovascular: Yes: Regular Rate and Rhythm Respiratory: Yes: Regular Gastrointestinal: Yes: Normal Bowel Sounds, Soft Wound/Incision: Yes: Dressing Dry and Intact (Rt foot TMA with foot edema) Neurological: Yes: Alert, Oriented Labs: CBC, BMP 09/16/17 08:15 09/16/17 08:15 INR, PTT INR 1.42 (0.83-1.09) H 09/16/17 08:15 Problem List - Problems (1) Anemia Code(s): D64.9 - ANEMIA, UNSPECIFIED Qualifiers: Anemia type: due to chronic kidney disease (2) 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 Code(s): E11.9 - TYPE 2 DIABETES MELLITUS WITHOUT COMPLICATIONS Qualifiers: 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 type: type 2 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 exterminator termite insulin use: without nursing home use 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 complication status: without complication Qualified Code(s): E11.9 - Type 2 diabetes mellitus without complications (3) ESRD (end stage renal disease) Code(s): N18.6 - END STAGE RENAL DISEASE (4) HTN (hypertension) Code(s): I10 - ESSENTIAL (PRIMARY) HYPERTENSION Qualifiers: Hypertension type: essential hypertension Qualified Code(s): I10 - Essential (primary) hypertension (5) Osteomyelitis Code(s): M86.9 - OSTEOMYELITIS, UNSPECIFIED Qualifiers: Osteomyelitis type: other Osteomyelitis location: foot Laterality: right Qualified Code(s): M86.8X7 - Other osteomyelitis, ankle and foot (6) Amputated toe of right foot Code(s): Z89.421 - ACQUIRED ABSENCE OF OTHER RIGHT TOE(S) (7) Atrial fibrillation Code(s): I48.91 - UNSPECIFIED ATRIAL FIBRILLATION Qualifiers: Atrial fibrillation type: permanent Qualified Code(s): I48.2 - Chronic atrial fibrillation (8) Diabetic foot ulcer Code(s): E11.621 - TYPE 2 DIABETES MELLITUS WITH FOOT ULCER; L97.509 - NON- PRESSURE CHRONIC ULCER OTH PRT UNSP FOOT W UNSP SEVERITY (9) ICD (implantable cardioverter-defibrillator) in place Code(s): Z95.810 - PRESENCE OF AUTOMATIC (IMPLANTABLE) CARDIAC DEFIBRILLATOR (10) Status post peripheral artery angioplasty Code(s): Z98.62 - PERIPHERAL VASCULAR ANGIOPLASTY STATUS Assessment/Plan Hx of Rt toe amputation s/p Rt partial TMA ESRD on HD CM s/p ICD placement Atrial Fibrillation hypothyroidism -- continue Zosyn, plan is to d/c on 09/22/17 -- continue wound care, pain control -- pt currently stable
[2017-09-16] MEDS: metoPROLOL SUCCINATE 25 MG TAB.SR.24H (FP) PO SCH (12:46)
[2017-09-16] MEDS: VITAMIN B COMP W-C 1 EA TABLET PO SCH (12:46)
[2017-09-16] MEDS: SACUBITRIL/VALSARTAN 24 MG-26 MG TABLET PO SCH ×2 (12:47→21:21)
[2017-09-16] MEDS: THIAMINE HCL 100 MG TABLET (FP) PO SCH (12:48)
[2017-09-16] MEDS ORDERED: ALBUMIN HUMAN 25% 12.5 GM/50 ML VIAL IVPB SCH (15:00)
--- NOTE | 2017-09-16 15:48 | PN ---
Progress Note (short form) - Note Progress Note: Chief Complaint: Events noted, notes reviewed, denies any chest pain or dyspnea , complaining of persistent foot discomfort History of Present Illness: Seen and examined. Events noted, notes reviewed, denies any chest pain or dyspnea, complaining of persistent foot discomfort Echocardiography dated 08/11/2017 revealed mildly dilated LV with severely decreased LV function, mild-moderately dilated RV with moderately decreased RV function, moderate LAE, mild MR, TR, AR, moderate pericardial effusion with evidence of cardiac tamponade Lexiscan MPI study dated 11/11/2016 revealed large FL involving apex, inferior wall, infero-lateral small area mild royce-infarct ischemia mid anterior wall, dilated severely decreased LVEF 26, RV dilated - Current Medication List Current Medications Acetaminophen (Tylenol -) 650 mg PO Q6H PRN PRN Reason: PAIN 1-5 Last Admin: 09/16/17 08:02 Dose: 650 mg Acetaminophen (Tylenol -) 325 mg PO Q8H PRN PRN Reason: PAIN SCALE 6-10 Last Admin: 09/13/17 21:23 Dose: 325 mg Albumin Human (Albumin Human 25%) 12.5 gm IVPB Q30M [facility] Clotrimazole (Lotrisone Cream (Small Tube)) 1 applic TP BID [facility] Last Admin: 09/16/17 10:00 Dose: Not Given Sodium Chloride (Normal Saline -) 250 mls @ 3,000 mls/hr IV PRN PRN PRN Reason: Hypotension during Dialysis Stop: 09/15/17 14:35 Piperacillin Sod/Tazobactam (Sod 2.25 gm/ Dextrose) 50 mls @ 100 mls/hr IVPB Q8H-IV [facility]; Protocol Last Admin: 09/16/17 12:49 Dose: 100 mls/hr Sodium Chloride (Normal Saline -) 250 mls @ 3,000 mls/hr IV PRN PRN PRN Reason: Hypotension during Dialysis Stop: 09/16/17 14:57 Insulin Aspart (Novolog Vial Sliding Scale -) 1 vial SQ TIDAC [facility]; Protocol Last Admin: 09/16/17 16:22 Dose: Not Given Levothyroxine Sodium (Synthroid -) 75 mcg PO ACBK [facility] Last Admin: 09/16/17 06:32 Dose: 75 mcg Melatonin (Melatonin) 5 mg PO HS PRN PRN Reason: INSOMNIA Last Admin: 09/15/17 22:51 Dose: 5 mg Metoprolol Succinate (Toprol Xl -) 12.5 mg PO DAILY [facility] Last Admin: 09/16/17 12:46 Dose: 12.5 mg Morphine Sulfate (Morphine Sulfate) 3 mg IVPUSH Q8H PRN PRN Reason: PAIN LEVEL 7 - 10 Last Admin: 09/16/17 14:13 Dose: 3 mg Multivit/Ca Carb/B Cmplx/FA/Prenat (Nephro-Fer -) 1 tablet PO DAILY [facility] Last Admin: 09/16/17 12:46 Dose: 1 tablet Ondansetron HCl (Zofran Injection) 4 mg IVPUSH Q6H PRN PRN Reason: NAUSEA AND/OR VOMITING Oxycodone HCl (Roxicodone -) 10 mg PO Q6H PRN PRN Reason: PAIN 6-10 Last Admin: 09/16/17 16:00 Dose: 10 mg Sacubitril/Valsartan (Entresto 24 Mg-26 Mg Tablet) 1 tab PO BID [facility] Last Admin: 09/16/17 12:47 Dose: 1 tab Senna (Senna -) 2 tab PO HS [facility] Last Admin: 09/15/17 22:07 Dose: 2 tab Sitagliptin Phosphate (Januvia -) 25 mg PO 0700 [facility] Last Admin: 09/16/17 06:32 Dose: 25 mg Thiamine HCl (Vitamin B1 -) 100 mg PO DAILY [facility] Last Admin: 09/16/17 12:48 Dose: 100 mg Warfarin Sodium (Coumadin -) 6 mg PO DAILY@1800 [facility] - Objective Vital Signs: Last Vital Signs Temp Pulse Resp BP Pulse Ox 97.6 F 66 18 109/61 96 09/16/17 08:18 09/16/17 12:10 09/16/17 12:10 09/16/17 12:10 09/16/17 08:15 Intake & Output 09/13/17 09/14/17 09/15/17 09/16/17 23:59 23:59 23:59 23:59 Intake Total 1350 700 650 350 Balance 1350 700 650 350 Weight 200 lb 1 oz 201 lb 200 lb 5 oz HEENT: Atraumatic Neck: Supple Negative JVD Cardiovascular: S1 S2 Regular Rate and Rhythm Respiratory: CTA Bilaterally Gastrointestinal: Soft benign Normal Bowel Sounds Ext: Trace Edema Dressing in Situ Labs: CBC, BMP 09/16/17 08:15 09/16/17 08:15 ASSESSMENT and PLAN: ASSESSMENT: 1. Peripheral artery disease and gangrene right forefoot post right tibial revacularization and POD#4 debridement of bone and soft tissue with transmetatarsal amputation 2. ESRDIschemic dilated cardiomyopathy with chronic class I-II NYHA classification LV failure, compensated/euvolemic, post prophylactic ICD implant 3. CAD post FL with evidence of demand ischemic injury angina pectoris, clinically stable 4. Persistent atrial fibrillation [id number] score of 3-4 on Coumadin 5. 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 7. PAD post intervention 8. Hypothyroidism 9. History of PTE 10. History of colon cancer PLAN: 1. Antibiotics as per the primary team 2. HD as per renal service 3. Continue Coumadin as per INR with close monitoring of CBC 4. Continue Toprol XL and titrate as hemodynamics permit/tolerate 5. Continue Entresto and titrate as hemodynamics permit/tolerate Rafaela Aguilar MD
--- NOTE | 2017-09-16 15:59 | PN ---
Progress Note, Physician History of Present Illness: Pt seen and examined at bedside. He is awake and alert. He denies shortness of breath. He tolerated HD today. - Current Medication List Current Medications: Active Medications Acetaminophen (Tylenol -) 650 mg PO Q6H PRN PRN Reason: PAIN 1-5 Last Admin: 09/16/17 08:02 Dose: 650 mg Acetaminophen (Tylenol -) 325 mg PO Q8H PRN PRN Reason: PAIN SCALE 6-10 Last Admin: 09/13/17 21:23 Dose: 325 mg Albumin Human (Albumin Human 25%) 12.5 gm IVPB Q30M [facility] Clotrimazole (Lotrisone Cream (Small Tube)) 1 applic TP BID [facility] Last Admin: 09/16/17 10:00 Dose: Not Given Sodium Chloride (Normal Saline -) 250 mls @ 3,000 mls/hr IV PRN PRN PRN Reason: Hypotension during Dialysis Stop: 09/15/17 14:35 Piperacillin Sod/Tazobactam (Sod 2.25 gm/ Dextrose) 50 mls @ 100 mls/hr IVPB Q8H-IV [facility]; Protocol Last Admin: 09/16/17 12:49 Dose: 100 mls/hr Sodium Chloride (Normal Saline -) 250 mls @ 3,000 mls/hr IV PRN PRN PRN Reason: Hypotension during Dialysis Stop: 09/16/17 14:57 Insulin Aspart (Novolog Vial Sliding Scale -) 1 vial SQ TIDAC [facility]; Protocol Last Admin: 09/16/17 11:00 Dose: Not Given Levothyroxine Sodium (Synthroid -) 75 mcg PO ACBK [facility] Last Admin: 09/16/17 06:32 Dose: 75 mcg Melatonin (Melatonin) 5 mg PO HS PRN PRN Reason: INSOMNIA Last Admin: 09/15/17 22:51 Dose: 5 mg Metoprolol Succinate (Toprol Xl -) 12.5 mg PO DAILY [facility] Last Admin: 09/16/17 12:46 Dose: 12.5 mg Morphine Sulfate (Morphine Sulfate) 3 mg IVPUSH Q8H PRN PRN Reason: PAIN LEVEL 7 - 10 Last Admin: 09/16/17 14:13 Dose: 3 mg Multivit/Ca Carb/B Cmplx/FA/Prenat (Nephro-Fer -) 1 tablet PO DAILY [facility] Last Admin: 09/16/17 12:46 Dose: 1 tablet Ondansetron HCl (Zofran Injection) 4 mg IVPUSH Q6H PRN PRN Reason: NAUSEA AND/OR VOMITING Oxycodone HCl (Roxicodone -) 10 mg PO Q6H PRN PRN Reason: PAIN 6-10 Last Admin: 09/16/17 09:45 Dose: 10 mg Sacubitril/Valsartan (Entresto 24 Mg-26 Mg Tablet) 1 tab PO BID [facility] Last Admin: 09/16/17 12:47 Dose: 1 tab Senna (Senna -) 2 tab PO HS [facility] Last Admin: 09/15/17 22:07 Dose: 2 tab Sitagliptin Phosphate (Januvia -) 25 mg PO 0700 [facility] Last Admin: 09/16/17 06:32 Dose: 25 mg Thiamine HCl (Vitamin B1 -) 100 mg PO DAILY [facility] Last Admin: 09/16/17 12:48 Dose: 100 mg Warfarin Sodium (Coumadin -) 6 mg PO DAILY@1800 [facility] - Objective Vital Signs: Vital Signs Temperature 97.6 F 09/16/17 08:18 Pulse Rate 66 09/16/17 12:10 Respiratory Rate 18 09/16/17 12:10 Blood Pressure 109/61 09/16/17 12:10 O2 Sat by Pulse Oximetry (%) 96 09/16/17 08:15 Constitutional: Yes: Calm Eyes: Yes: Conjunctiva Clear HENT: Yes: Atraumatic Neck: Yes: Supple Cardiovascular: Yes: S1, S2 Respiratory: Yes: CTA Bilaterally Gastrointestinal: Yes: Normal Bowel Sounds, Soft Genitourinary: Yes: WNL Musculoskeletal: Yes: WNL Edema: No Neurological: Yes: Oriented Psychiatric: Yes: Oriented Labs: CBC, BMP 09/16/17 08:15 09/16/17 08:15 INR, PTT INR 1.42 (0.83-1.09) H 09/16/17 08:15 Problem List - Problems (1) ESRD (end stage renal disease) Code(s): N18.6 - END STAGE RENAL DISEASE (2) Osteomyelitis Code(s): M86.9 - OSTEOMYELITIS, UNSPECIFIED Qualifiers: Osteomyelitis type: other Osteomyelitis location: foot Laterality: right Qualified Code(s): M86.8X7 - Other osteomyelitis, ankle and foot (3) Atrial fibrillation Code(s): I48.91 - UNSPECIFIED ATRIAL FIBRILLATION Qualifiers: Atrial fibrillation type: permanent Qualified Code(s): I48.2 - Chronic atrial fibrillation Assessment/Plan Current Medications Generic Name Dose Route Start Last Admin Trade Name Freq PRN Reason Stop Dose Admin Acetaminophen 650 mg 09/12/17 14:28 09/16/17 08:02 Tylenol - PO 650 mg Q6H PRN Administration PAIN 1-5 Acetaminophen 325 mg 09/12/17 14:28 09/13/17 21:23 Tylenol - PO 325 mg Q8H PRN Administration PAIN SCALE 6-10 Albumin Human 12.5 gm 09/16/17 15:00 Albumin Human 25% IVPB Q30M [facility] Clotrimazole 1 applic 09/12/17 22:00 09/16/17 10:00 Lotrisone Cream (Small Tube) TP Not Given BID [facility] Sodium Chloride 250 mls @ 3,000 mls/hr 09/14/17 14:35 Normal Saline - IV 09/15/17 14:35 PRN PRN Hypotension during Dialysis Piperacillin Sod/Tazobactam 50 mls @ 100 mls/hr 09/15/17 18:00 09/16/17 12:49 Sod 2.25 gm/ Dextrose IVPB 100 mls/hr Q8H-IV [facility] Administration Protocol Sodium Chloride 250 mls @ 3,000 mls/hr 09/15/17 14:57 Normal Saline - IV 09/16/17 14:57 PRN PRN Hypotension during Dialysis Insulin Aspart 1 vial 09/12/17 16:30 09/16/17 11:00 Novolog Vial Sliding Scale - SQ Not Given TIDAC [facility] Protocol Levothyroxine Sodium 75 mcg 09/13/17 07:00 09/16/17 06:32 Synthroid - PO 75 mcg ACBK [facility] Administration Melatonin 5 mg 09/12/17 22:00 09/15/17 22:51 Melatonin PO 5 mg HS PRN Administration INSOMNIA Metoprolol Succinate 12.5 mg 09/13/17 10:00 09/16/17 12:46 Toprol Xl - PO 12.5 mg DAILY [facility] Administration Morphine Sulfate 3 mg 09/16/17 11:41 09/16/17 14:13 Morphine Sulfate IVPUSH 3 mg Q8H PRN Administration PAIN LEVEL 7 - 10 Multivit/Ca Carb/B Cmplx/FA/Prenat 1 tablet 09/13/17 10:00 09/16/17 12:46 Nephro-Fer - PO 1 tablet DAILY [facility] Administration Ondansetron HCl 4 mg 09/12/17 14:28 Zofran Injection IVPUSH Q6H PRN NAUSEA AND/OR VOMITING Oxycodone HCl 10 mg 09/14/17 13:42 09/16/17 09:45 Roxicodone - PO 10 mg Q6H PRN Administration PAIN 6-10 Sacubitril/Valsartan 1 tab 09/12/17 22:00 09/16/17 12:47 Entresto 24 Mg-26 Mg Tablet PO 1 tab BID [facility] Administration Senna 2 tab 09/12/17 22:00 09/15/17 22:07 Senna - PO 2 tab HS [facility] Administration Sitagliptin Phosphate 25 mg 09/13/17 07:00 09/16/17 06:32 Januvia - PO 25 mg 0700 [facility] Administration Thiamine HCl 100 mg 09/13/17 10:00 09/16/17 12:48 Vitamin B1 - PO 100 mg DAILY [facility] Administration Warfarin Sodium 6 mg 09/16/17 11:41 Coumadin - PO DAILY@1800 [facility] Impression 1. ESRD 2. hx pericardial effusion 3. hx pneumopericardium 4. hypothyroidism 5. a-fib 6. hypotension 7. hx of colon cancer 8. CHF 9. DM 10. hx of PE 11. CAD 12. foot ulcer Plan - HD today - scheduled HD 4 times this week to help with pericardial effusion - cont wound care - cardio input appreciated
[2017-09-16] MEDS: WARFARIN NA 3 MG TABLET PO SCH (18:11)
--- NOTE | 2017-09-16 18:49 | PN ---
Progress Note (short form) - Note Progress Note: POD#4. Pain being managed. vss, Tmax 97.6 +clean dry dressing intact on right foot, retention sutures intact, wbc=4.4 normal post op day 4 Awaiting dc to rehab. Post op shoe to ambulate. Patient may go home from podiatry standpoint. IV home with ABX. W[facility] care [facility]. HBO in place. will follow till dc.
[2017-09-16] MEDS ORDERED: PT OWN MED DRAWER 7, Y5N ONE (21:14)
[2017-09-16] MEDS: SENNOSIDES 8.6MG TABLET (FP) PO SCH (21:18)
[2017-09-16] MEDS: MELATONIN 5 MG TABLETS PO PRN (21:52)
[2017-09-17] MEDS ORDERED: PIPERACILLIN/TAZOBACTAM 2.25 GM VIAL IVPB ONE ×3 (01:15→17:20)
[2017-09-17] MEDS ORDERED: DEXTROSE 5%-WATER - 50 ML IVPB ONE ×3 (01:15→17:20)
[2017-09-17] MEDS: PIPERACILLIN/TAZOB 2.25 GM 2.25 GM in DEXTROSE 5%-WATER - 50 ML IVPB SCH ×3 (02:36→17:52)
[2017-09-17] MEDS: oxyCODONE HCL 5 MG TABLET PO PRN ×2 (03:49→17:51)
[2017-09-17] MEDS: INSULIN SLIDING SCALE (NOVOLOG) 1 VIAL SQ SCH ×3 (06:31→16:20)
[2017-09-17] MEDS: LEVOTHYROXINE NA 75 MCG TABLET (FP) PO SCH (06:40)
[2017-09-17] MEDS: sitaGLIPtin PHOSPHATE 25 MG TABLET (FP) PO SCH (06:41)
[2017-09-17] MEDS: VITAMIN B COMP W-C 1 EA TABLET PO SCH (09:42)
[2017-09-17] MEDS: metoPROLOL SUCCINATE 25 MG TAB.SR.24H (FP) PO SCH (09:42)
[2017-09-17] MEDS: THIAMINE HCL 100 MG TABLET (FP) PO SCH (09:42)
[2017-09-17] MEDS: SACUBITRIL/VALSARTAN 24 MG-26 MG TABLET PO SCH ×2 (09:43→21:17)
[2017-09-17] MEDS: CLOTRIMAZOLE/BETAMET DIPROP 15 GM TUBE TP SCH ×2 (09:44→21:18)
[2017-09-17] MEDS ORDERED: morphine SULFATE 4 MG/ML VIAL IVPUSH PRN (12:34)
--- NOTE | 2017-09-17 12:35 | PN ---
Progress Note (short form) - Note Progress Note: patient seen and examined. Still having pain issues otherwise okay--- requesting to increase pain medication No distress Afebrile Vital Signs Temp 98.4 F 09/17/17 10:38 Pulse 66 09/17/17 10:38 Resp 20 09/17/17 10:38 BP 96/54 09/17/17 10:38 Pulse Ox 96 09/17/17 09:00 Intake & Output 09/16/17 09/17/17 09/17/17 23:59 11:59 23:59 Intake Total 300 Balance 300 Weight 210 lb Intake: Oral 300 Other: Voiding Method Toilet Toilet # Unmeasured Voids Void 1 1 Bowel Movement No No Weight Measurement Method Built in [facility] Active Medications Acetaminophen (Tylenol -) 650 mg PO Q6H PRN PRN Reason: PAIN 1-5 Last Admin: 09/16/17 19:59 Dose: 650 mg Acetaminophen (Tylenol -) 325 mg PO Q8H PRN PRN Reason: PAIN SCALE 6-10 Last Admin: 09/13/17 21:23 Dose: 325 mg Albumin Human (Albumin Human 25%) 12.5 gm IVPB Q30M [facility] Clotrimazole (Lotrisone Cream (Small Tube)) 1 applic TP BID [facility] Last Admin: 09/17/17 09:44 Dose: Not Given Sodium Chloride (Normal Saline -) 250 mls @ 3,000 mls/hr IV PRN PRN PRN Reason: Hypotension during Dialysis Stop: 09/15/17 14:35 Piperacillin Sod/Tazobactam (Sod 2.25 gm/ Dextrose) 50 mls @ 100 mls/hr IVPB Q8H-IV [facility]; Protocol Last Admin: 09/17/17 09:42 Dose: 100 mls/hr Sodium Chloride (Normal Saline -) 250 mls @ 3,000 mls/hr IV PRN PRN PRN Reason: Hypotension during Dialysis Stop: 09/16/17 14:57 Insulin Aspart (Novolog Vial Sliding Scale -) 1 vial SQ TIDAC [facility]; Protocol Last Admin: 09/17/17 11:23 Dose: Not Given Levothyroxine Sodium (Synthroid -) 75 mcg PO ACBK [facility] Last Admin: 09/17/17 06:40 Dose: 75 mcg Melatonin (Melatonin) 5 mg PO HS PRN PRN Reason: INSOMNIA Last Admin: 09/16/17 21:52 Dose: 5 mg Metoprolol Succinate (Toprol Xl -) 12.5 mg PO DAILY [facility] Last Admin: 09/17/17 09:42 Dose: 12.5 mg Morphine Sulfate (Morphine Injection -) 4 mg IVPUSH Q6H PRN PRN Reason: PAIN LEVEL 7 - 10 Multivit/Ca Carb/B Cmplx/FA/Prenat (Nephro-Fer -) 1 tablet PO DAILY [facility] Last Admin: 09/17/17 09:42 Dose: 1 tablet Ondansetron HCl (Zofran Injection) 4 mg IVPUSH Q6H PRN PRN Reason: NAUSEA AND/OR VOMITING Oxycodone HCl (Roxicodone -) 10 mg PO Q6H PRN PRN Reason: PAIN 6-10 Last Admin: 09/17/17 03:49 Dose: 10 mg Sacubitril/Valsartan (Entresto 24 Mg-26 Mg Tablet) 1 tab PO BID [facility] Last Admin: 09/17/17 09:43 Dose: 1 tab Senna (Senna -) 2 tab PO HS [facility] Last Admin: 09/16/17 21:18 Dose: 2 tab Sitagliptin Phosphate (Januvia -) 25 mg PO 0700 [facility] Last Admin: 09/17/17 06:41 Dose: 25 mg Thiamine HCl (Vitamin B1 -) 100 mg PO DAILY [facility] Last Admin: 09/17/17 09:42 Dose: 100 mg Warfarin Sodium (Coumadin -) 6 mg PO DAILY@1800 [facility] Last Admin: 09/16/17 18:11 Dose: 6 mg CBC, BMP 09/16/17 08:15 09/16/17 08:15 Physical Examination Constitutional: Yes: No Distress, Calm.Comfortable. Eyes: Yes: Conjunctiva Clear Neck: Yes: Supple/ no jvd Cardiovascular: Yes: Regular Rate and Rhythm Respiratory: Yes: Bilateral breath sounds Gastrointestinal: Yes: Normal Bowel Sounds, Soft. non tender Edema: No Wound/Incision: Yes: Dressing Dry and Intact Neurological: Yes: Alert Psychiatric: Yes: Alert Assessment/Plan Stable pod # 5 overall better. pain control dialysis per renal monitor bgm. Antibiotics--as per ID patient has tunneled catheter Discharge planning likely tomorrow monitor INR Physical therapy Will follow Problem List - Problems (1) ESRD (end stage renal disease) Code(s): N18.6 - END STAGE RENAL DISEASE (2) Osteomyelitis Code(s): M86.9 - OSTEOMYELITIS, UNSPECIFIED Qualifiers: Osteomyelitis type: other Osteomyelitis location: foot Laterality: right Qualified Code(s): M86.8X7 - Other osteomyelitis, ankle and foot (3) Amputated toe of right foot Code(s): Z89.421 - ACQUIRED ABSENCE OF OTHER RIGHT TOE(S) (4) Atrial fibrillation Code(s): I48.91 - UNSPECIFIED ATRIAL FIBRILLATION Qualifiers: Atrial fibrillation type: permanent Qualified Code(s): I48.2 - Chronic atrial fibrillation (5) Cardiomyopathy Code(s): I42.9 - CARDIOMYOPATHY, UNSPECIFIED Qualifiers: Cardiomyopathy type: unspecified Qualified Code(s): I42.9 - Cardiomyopathy , unspecified (6) Hypothyroid Code(s): E03.9 - HYPOTHYROIDISM, UNSPECIFIED Qualifiers: Hypothyroidism type: unspecified Qualified Code(s): E03.9 - Hypothyroidism , unspecified (7) ICD (implantable cardioverter-defibrillator) in place Code(s): Z95.810 - PRESENCE OF AUTOMATIC (IMPLANTABLE) CARDIAC DEFIBRILLATOR (8) Pericardial effusion Code(s): I31.3 - PERICARDIAL EFFUSION (NONINFLAMMATORY)
--- NOTE | 2017-09-17 12:44 | PN ---
Progress Note, Physician History of Present Illness: Infectious Disease Progress Note: Pt seen and examined. States he feels well. Remains afebrile. Pt has no new complaints. - Current Medication List Current Medications: Active Medications Acetaminophen (Tylenol -) 650 mg PO Q6H PRN PRN Reason: PAIN 1-5 Last Admin: 09/16/17 19:59 Dose: 650 mg Acetaminophen (Tylenol -) 325 mg PO Q8H PRN PRN Reason: PAIN SCALE 6-10 Last Admin: 09/13/17 21:23 Dose: 325 mg Albumin Human (Albumin Human 25%) 12.5 gm IVPB Q30M [facility] Clotrimazole (Lotrisone Cream (Small Tube)) 1 applic TP BID [facility] Last Admin: 09/17/17 09:44 Dose: Not Given Sodium Chloride (Normal Saline -) 250 mls @ 3,000 mls/hr IV PRN PRN PRN Reason: Hypotension during Dialysis Stop: 09/15/17 14:35 Piperacillin Sod/Tazobactam (Sod 2.25 gm/ Dextrose) 50 mls @ 100 mls/hr IVPB Q8H-IV [facility]; Protocol Last Admin: 09/17/17 09:42 Dose: 100 mls/hr Sodium Chloride (Normal Saline -) 250 mls @ 3,000 mls/hr IV PRN PRN PRN Reason: Hypotension during Dialysis Stop: 09/16/17 14:57 Insulin Aspart (Novolog Vial Sliding Scale -) 1 vial SQ TIDAC [facility]; Protocol Last Admin: 09/17/17 11:23 Dose: Not Given Levothyroxine Sodium (Synthroid -) 75 mcg PO ACBK [facility] Last Admin: 09/17/17 06:40 Dose: 75 mcg Melatonin (Melatonin) 5 mg PO HS PRN PRN Reason: INSOMNIA Last Admin: 09/16/17 21:52 Dose: 5 mg Metoprolol Succinate (Toprol Xl -) 12.5 mg PO DAILY [facility] Last Admin: 09/17/17 09:42 Dose: 12.5 mg Morphine Sulfate (Morphine Sulfate) 4 mg IVPUSH Q6H PRN PRN Reason: PAIN LEVEL 7 - 10 Multivit/Ca Carb/B Cmplx/FA/Prenat (Nephro-Fer -) 1 tablet PO DAILY [facility] Last Admin: 09/17/17 09:42 Dose: 1 tablet Ondansetron HCl (Zofran Injection) 4 mg IVPUSH Q6H PRN PRN Reason: NAUSEA AND/OR VOMITING Oxycodone HCl (Roxicodone -) 10 mg PO Q6H PRN PRN Reason: PAIN 6-10 Last Admin: 09/17/17 03:49 Dose: 10 mg Sacubitril/Valsartan (Entresto 24 Mg-26 Mg Tablet) 1 tab PO BID [facility] Last Admin: 09/17/17 09:43 Dose: 1 tab Senna (Senna -) 2 tab PO HS [facility] Last Admin: 09/16/17 21:18 Dose: 2 tab Sitagliptin Phosphate (Januvia -) 25 mg PO 0700 [facility] Last Admin: 09/17/17 06:41 Dose: 25 mg Thiamine HCl (Vitamin B1 -) 100 mg PO DAILY [facility] Last Admin: 09/17/17 09:42 Dose: 100 mg Warfarin Sodium (Coumadin -) 6 mg PO DAILY@1800 [facility] Last Admin: 09/16/17 18:11 Dose: 6 mg - Objective Vital Signs: Vital Signs Temperature 98.4 F 09/17/17 10:38 Pulse Rate 66 09/17/17 10:38 Respiratory Rate 20 09/17/17 10:38 Blood Pressure 96/54 09/17/17 10:38 O2 Sat by Pulse Oximetry (%) 96 09/17/17 09:00 Constitutional: Yes: No Distress, Calm Cardiovascular: Yes: Regular Rate and Rhythm Respiratory: Yes: Regular Gastrointestinal: Yes: Normal Bowel Sounds, Soft Extremities: Yes: Amputation (Rt TMA) Wound/Incision: Yes: Dressing Dry and Intact Labs: CBC, BMP 09/16/17 08:15 09/16/17 08:15 INR, PTT INR 1.42 (0.83-1.09) H 09/16/17 08:15 Problem List - Problems (1) Anemia Code(s): D64.9 - ANEMIA, UNSPECIFIED Qualifiers: Anemia type: due to chronic kidney disease (2) 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 Code(s): E11.9 - TYPE 2 DIABETES MELLITUS WITHOUT COMPLICATIONS Qualifiers: 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 type: type 2 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 fci insulin use: without fci use 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 complication status: without complication Qualified Code(s): E11.9 - Type 2 diabetes mellitus without complications (3) ESRD (end stage renal disease) Code(s): N18.6 - END STAGE RENAL DISEASE (4) HTN (hypertension) Code(s): I10 - ESSENTIAL (PRIMARY) HYPERTENSION Qualifiers: Hypertension type: essential hypertension Qualified Code(s): I10 - Essential (primary) hypertension (5) Osteomyelitis Code(s): M86.9 - OSTEOMYELITIS, UNSPECIFIED Qualifiers: Osteomyelitis type: other Osteomyelitis location: foot Laterality: right Qualified Code(s): M86.8X7 - Other osteomyelitis, ankle and foot (6) Amputated toe of right foot Code(s): Z89.421 - ACQUIRED ABSENCE OF OTHER RIGHT TOE(S) (7) Atrial fibrillation Code(s): I48.91 - UNSPECIFIED ATRIAL FIBRILLATION Qualifiers: Atrial fibrillation type: permanent Qualified Code(s): I48.2 - Chronic atrial fibrillation (8) Diabetic foot ulcer Code(s): E11.621 - TYPE 2 DIABETES MELLITUS WITH FOOT ULCER; L97.509 - NON- PRESSURE CHRONIC ULCER OTH PRT UNSP FOOT W UNSP SEVERITY (9) ICD (implantable cardioverter-defibrillator) in place Code(s): Z95.810 - PRESENCE OF AUTOMATIC (IMPLANTABLE) CARDIAC DEFIBRILLATOR (10) Status post peripheral artery angioplasty Code(s): Z98.62 - PERIPHERAL VASCULAR ANGIOPLASTY STATUS Assessment/Plan Hx of Rt toe amputation s/p Rt partial TMA ESRD on HD CM s/p ICD placement Atrial Fibrillation hypothyroidism -- plan is to continue antibiotics until 09/22/17 -- continue wound care with f/u -- pt currently stable, afebrile, tolerating antibiotics
--- NOTE | 2017-09-17 12:57 | PN ---
Progress Note (short form) - Note Progress Note: Chief Complaint: Events noted, notes reviewed, denies any chest pain or dyspnea , complaining of persistent foot discomfort although severity has decreased History of Present Illness: Seen and examined. Events noted, notes reviewed, denies any chest pain or dyspnea, complaining of persistent foot discomfort although severity has decreased Echocardiography dated 08/11/2017 revealed mildly dilated LV with severely decreased LV function, mild-moderately dilated RV with moderately decreased RV function, moderate LAE, mild MR, TR, AR, moderate pericardial effusion with evidence of cardiac tamponade Lexiscan MPI study dated 11/11/2016 revealed large TX involving apex, inferior wall, infero-lateral small area mild royce-infarct ischemia mid anterior wall, dilated severely decreased LVEF 26, RV dilated - Current Medication List Current Medications Acetaminophen (Tylenol -) 650 mg PO Q6H PRN PRN Reason: PAIN 1-5 Last Admin: 09/16/17 19:59 Dose: 650 mg Acetaminophen (Tylenol -) 325 mg PO Q8H PRN PRN Reason: PAIN SCALE 6-10 Last Admin: 09/13/17 21:23 Dose: 325 mg Albumin Human (Albumin Human 25%) 12.5 gm IVPB Q30M [facility] Clotrimazole (Lotrisone Cream (Small Tube)) 1 applic TP BID [facility] Last Admin: 09/17/17 09:44 Dose: Not Given Sodium Chloride (Normal Saline -) 250 mls @ 3,000 mls/hr IV PRN PRN PRN Reason: Hypotension during Dialysis Stop: 09/15/17 14:35 Piperacillin Sod/Tazobactam (Sod 2.25 gm/ Dextrose) 50 mls @ 100 mls/hr IVPB Q8H-IV [facility]; Protocol Last Admin: 09/17/17 09:42 Dose: 100 mls/hr Sodium Chloride (Normal Saline -) 250 mls @ 3,000 mls/hr IV PRN PRN PRN Reason: Hypotension during Dialysis Stop: 09/16/17 14:57 Insulin Aspart (Novolog Vial Sliding Scale -) 1 vial SQ TIDAC [facility]; Protocol Last Admin: 09/17/17 11:23 Dose: Not Given Levothyroxine Sodium (Synthroid -) 75 mcg PO ACBK [facility] Last Admin: 09/17/17 06:40 Dose: 75 mcg Melatonin (Melatonin) 5 mg PO HS PRN PRN Reason: INSOMNIA Last Admin: 09/16/17 21:52 Dose: 5 mg Metoprolol Succinate (Toprol Xl -) 12.5 mg PO DAILY [facility] Last Admin: 09/17/17 09:42 Dose: 12.5 mg Morphine Sulfate (Morphine Sulfate) 4 mg IVPUSH Q6H PRN PRN Reason: PAIN LEVEL 7 - 10 Multivit/Ca Carb/B Cmplx/FA/Prenat (Nephro-Fer -) 1 tablet PO DAILY [facility] Last Admin: 09/17/17 09:42 Dose: 1 tablet Ondansetron HCl (Zofran Injection) 4 mg IVPUSH Q6H PRN PRN Reason: NAUSEA AND/OR VOMITING Oxycodone HCl (Roxicodone -) 10 mg PO Q6H PRN PRN Reason: PAIN 6-10 Last Admin: 09/17/17 03:49 Dose: 10 mg Sacubitril/Valsartan (Entresto 24 Mg-26 Mg Tablet) 1 tab PO BID [facility] Last Admin: 09/17/17 09:43 Dose: 1 tab Senna (Senna -) 2 tab PO HS [facility] Last Admin: 09/16/17 21:18 Dose: 2 tab Sitagliptin Phosphate (Januvia -) 25 mg PO 0700 [facility] Last Admin: 09/17/17 06:41 Dose: 25 mg Thiamine HCl (Vitamin B1 -) 100 mg PO DAILY [facility] Last Admin: 09/17/17 09:42 Dose: 100 mg Warfarin Sodium (Coumadin -) 6 mg PO DAILY@1800 [facility] Last Admin: 09/16/17 18:11 Dose: 6 mg - Objective Vital Signs: Last Vital Signs Temp Pulse Resp BP Pulse Ox 98.4 F 66 20 96/54 96 09/17/17 10:38 09/17/17 10:38 09/17/17 10:38 09/17/17 10:38 09/17/17 09:00 Intake & Output 09/14/17 09/15/17 09/16/17 09/17/17 23:59 23:59 23:59 23:59 Intake Total 700 650 650 Balance 700 650 650 Weight 200 lb 1 oz 201 lb 200 lb 5 oz 210 lb HEENT: Atraumatic Neck: Supple Negative JVD Cardiovascular: S1 S2 Regular Rate and Rhythm Respiratory: CTA Bilaterally Gastrointestinal: Soft benign Normal Bowel Sounds Ext: Trace Edema Dressing in Situ Labs: CBC, BMP 09/16/17 08:15 09/16/17 08:15 INR, PTT INR 1.42 (0.83-1.09) H 09/16/17 08:15 ASSESSMENT and PLAN: ASSESSMENT: 1. Peripheral artery disease and gangrene right forefoot post right tibial revacularization and POD#5 debridement of bone and soft tissue with transmetatarsal amputation 2. Ischemic dilated cardiomyopathy with chronic class I-II NYHA classification LV failure, compensated/euvolemic, post prophylactic ICD implant 3. CAD post TX with evidence of demand ischemic injury angina pectoris, clinically stable 4. Persistent atrial fibrillation [id number] score of 3-4 on Coumadin 5. 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 7. PAD post intervention 8. Hypothyroidism 9. History of PTE 10. ESRD 11. History of colon cancer PLAN: 1. Antibiotics as per the primary team 2. HD as per renal service 3. Continue Coumadin as per INR with close monitoring of CBC 4. Continue Toprol XL and titrate as hemodynamics permit/tolerate 5. Continue Entresto and titrate as hemodynamics permit/tolerate Rafaela Aguilar MD
--- NOTE | 2017-09-17 13:35 | PN ---
Progress Note, Physician History of Present Illness: Pt seen and examined at bedside. He is awake and alert. He denies shortness of breath. - Current Medication List Current Medications: Active Medications Acetaminophen (Tylenol -) 650 mg PO Q6H PRN PRN Reason: PAIN 1-5 Last Admin: 09/16/17 19:59 Dose: 650 mg Acetaminophen (Tylenol -) 325 mg PO Q8H PRN PRN Reason: PAIN SCALE 6-10 Last Admin: 09/13/17 21:23 Dose: 325 mg Albumin Human (Albumin Human 25%) 12.5 gm IVPB Q30M [facility] Clotrimazole (Lotrisone Cream (Small Tube)) 1 applic TP BID [facility] Last Admin: 09/17/17 09:44 Dose: Not Given Sodium Chloride (Normal Saline -) 250 mls @ 3,000 mls/hr IV PRN PRN PRN Reason: Hypotension during Dialysis Stop: 09/15/17 14:35 Piperacillin Sod/Tazobactam (Sod 2.25 gm/ Dextrose) 50 mls @ 100 mls/hr IVPB Q8H-IV [facility]; Protocol Last Admin: 09/17/17 09:42 Dose: 100 mls/hr Sodium Chloride (Normal Saline -) 250 mls @ 3,000 mls/hr IV PRN PRN PRN Reason: Hypotension during Dialysis Stop: 09/16/17 14:57 Insulin Aspart (Novolog Vial Sliding Scale -) 1 vial SQ TIDAC [facility]; Protocol Last Admin: 09/17/17 11:23 Dose: Not Given Levothyroxine Sodium (Synthroid -) 75 mcg PO ACBK [facility] Last Admin: 09/17/17 06:40 Dose: 75 mcg Melatonin (Melatonin) 5 mg PO HS PRN PRN Reason: INSOMNIA Last Admin: 09/16/17 21:52 Dose: 5 mg Metoprolol Succinate (Toprol Xl -) 12.5 mg PO DAILY [facility] Last Admin: 09/17/17 09:42 Dose: 12.5 mg Morphine Sulfate (Morphine Sulfate) 4 mg IVPUSH Q6H PRN PRN Reason: PAIN LEVEL 7 - 10 Multivit/Ca Carb/B Cmplx/FA/Prenat (Nephro-Fer -) 1 tablet PO DAILY [facility] Last Admin: 09/17/17 09:42 Dose: 1 tablet Ondansetron HCl (Zofran Injection) 4 mg IVPUSH Q6H PRN PRN Reason: NAUSEA AND/OR VOMITING Oxycodone HCl (Roxicodone -) 10 mg PO Q6H PRN PRN Reason: PAIN 6-10 Last Admin: 09/17/17 03:49 Dose: 10 mg Sacubitril/Valsartan (Entresto 24 Mg-26 Mg Tablet) 1 tab PO BID [facility] Last Admin: 09/17/17 09:43 Dose: 1 tab Senna (Senna -) 2 tab PO HS [facility] Last Admin: 09/16/17 21:18 Dose: 2 tab Sitagliptin Phosphate (Januvia -) 25 mg PO 0700 [facility] Last Admin: 09/17/17 06:41 Dose: 25 mg Thiamine HCl (Vitamin B1 -) 100 mg PO DAILY [facility] Last Admin: 09/17/17 09:42 Dose: 100 mg Warfarin Sodium (Coumadin -) 6 mg PO DAILY@1800 [facility] Last Admin: 09/16/17 18:11 Dose: 6 mg - Objective Vital Signs: Vital Signs Temperature 98.4 F 09/17/17 10:38 Pulse Rate 66 09/17/17 10:38 Respiratory Rate 20 09/17/17 10:38 Blood Pressure 96/54 09/17/17 10:38 O2 Sat by Pulse Oximetry (%) 96 09/17/17 09:00 Constitutional: Yes: Calm Eyes: Yes: Conjunctiva Clear HENT: Yes: Atraumatic Neck: Yes: Supple Cardiovascular: Yes: S1, S2 Respiratory: Yes: CTA Bilaterally Gastrointestinal: Yes: Soft Genitourinary: Yes: WNL Musculoskeletal: Yes: WNL Edema: Yes Edema: LLE: Trace, RLE: Trace Integumentary: Yes: WNL Neurological: Yes: Oriented Psychiatric: Yes: Oriented Labs: CBC, BMP 09/16/17 08:15 09/16/17 08:15 INR, PTT INR 1.42 (0.83-1.09) H 09/16/17 08:15 Problem List - Problems (1) ESRD (end stage renal disease) Code(s): N18.6 - END STAGE RENAL DISEASE (2) Osteomyelitis Code(s): M86.9 - OSTEOMYELITIS, UNSPECIFIED Qualifiers: Osteomyelitis type: other Osteomyelitis location: foot Laterality: right Qualified Code(s): M86.8X7 - Other osteomyelitis, ankle and foot (3) Atrial fibrillation Code(s): I48.91 - UNSPECIFIED ATRIAL FIBRILLATION Qualifiers: Atrial fibrillation type: permanent Qualified Code(s): I48.2 - Chronic atrial fibrillation Assessment/Plan Current Medications Generic Name Dose Route Start Last Admin Trade Name Freq PRN Reason Stop Dose Admin Acetaminophen 650 mg 09/12/17 14:28 09/16/17 19:59 Tylenol - PO 650 mg Q6H PRN Administration PAIN 1-5 Acetaminophen 325 mg 09/12/17 14:28 09/13/17 21:23 Tylenol - PO 325 mg Q8H PRN Administration PAIN SCALE 6-10 Albumin Human 12.5 gm 09/16/17 15:00 Albumin Human 25% IVPB Q30M [facility] Clotrimazole 1 applic 09/12/17 22:00 09/17/17 09:44 Lotrisone Cream (Small Tube) TP Not Given BID [facility] Sodium Chloride 250 mls @ 3,000 mls/hr 09/14/17 14:35 Normal Saline - IV 09/15/17 14:35 PRN PRN Hypotension during Dialysis Piperacillin Sod/Tazobactam 50 mls @ 100 mls/hr 09/15/17 18:00 09/17/17 09:42 Sod 2.25 gm/ Dextrose IVPB 100 mls/hr Q8H-IV [facility] Administration Protocol Sodium Chloride 250 mls @ 3,000 mls/hr 09/15/17 14:57 Normal Saline - IV 09/16/17 14:57 PRN PRN Hypotension during Dialysis Insulin Aspart 1 vial 09/12/17 16:30 09/17/17 11:23 Novolog Vial Sliding Scale - SQ Not Given TIDAC [facility] Protocol Levothyroxine Sodium 75 mcg 09/13/17 07:00 09/17/17 06:40 Synthroid - PO 75 mcg ACBK [facility] Administration Melatonin 5 mg 09/12/17 22:00 09/16/17 21:52 Melatonin PO 5 mg HS PRN Administration INSOMNIA Metoprolol Succinate 12.5 mg 09/13/17 10:00 09/17/17 09:42 Toprol Xl - PO 12.5 mg DAILY [facility] Administration Morphine Sulfate 4 mg 09/17/17 12:34 Morphine Sulfate IVPUSH Q6H PRN PAIN LEVEL 7 - 10 Multivit/Ca Carb/B Cmplx/FA/Prenat 1 tablet 09/13/17 10:00 09/17/17 09:42 Nephro-Fer - PO 1 tablet DAILY [facility] Administration Ondansetron HCl 4 mg 09/12/17 14:28 Zofran Injection IVPUSH Q6H PRN NAUSEA AND/OR VOMITING Oxycodone HCl 10 mg 09/14/17 13:42 09/17/17 03:49 Roxicodone - PO 10 mg Q6H PRN Administration PAIN 6-10 Sacubitril/Valsartan 1 tab 09/12/17 22:00 09/17/17 09:43 Entresto 24 Mg-26 Mg Tablet PO 1 tab BID [facility] Administration Senna 2 tab 09/12/17 22:00 09/16/17 21:18 Senna - PO 2 tab HS [facility] Administration Sitagliptin Phosphate 25 mg 09/13/17 07:00 09/17/17 06:41 Januvia - PO 25 mg 0700 [facility] Administration Thiamine HCl 100 mg 09/13/17 10:00 09/17/17 09:42 Vitamin B1 - PO 100 mg DAILY [facility] Administration Warfarin Sodium 6 mg 09/16/17 11:41 09/16/17 18:11 Coumadin - PO 6 mg DAILY@1800 [facility] Administration Impression 1. ESRD 2. hx pericardial effusion 3. hx pneumopericardium 4. hypothyroidism 5. a-fib 6. hypotension 7. hx of colon cancer 8. CHF 9. DM 10. hx of PE 11. CAD 12. foot ulcer Plan - pt tolerated HD yesterday - next HD on Monday - aggressive HD as outpt, 4 times per week - will need repeat echo to evaluate effusion - cont wound care - cardio input appreciated
[2017-09-17 16:12] LABS: INR 1.55 (0.83-1.09); PROTHROMBIN TIME (PATIENT) 17.5 SEC (9.7-13.0)
[2017-09-17] MEDS: WARFARIN NA 3 MG TABLET PO SCH (17:51)
[2017-09-17] MEDS ORDERED: PT OWN MED DRAWER 7, Y5N ONE (21:13)
[2017-09-17] MEDS: SENNOSIDES 8.6MG TABLET (FP) PO SCH (21:17)
[2017-09-18] MEDS ORDERED: PIPERACILLIN/TAZOBACTAM 2.25 GM VIAL IVPB ONE ×2 (00:36→09:06)
[2017-09-18] MEDS: MELATONIN 5 MG TABLETS PO PRN (00:42)
[2017-09-18] MEDS: oxyCODONE HCL 5 MG TABLET PO PRN ×3 (00:42→14:57)
[2017-09-18] MEDS: PIPERACILLIN/TAZOB 2.25 GM 2.25 GM in DEXTROSE 5%-WATER - 50 ML IVPB SCH ×2 (02:00→09:20)
[2017-09-18] MEDS: INSULIN SLIDING SCALE (NOVOLOG) 1 VIAL SQ SCH ×2 (06:15→11:44)
[2017-09-18] MEDS: LEVOTHYROXINE NA 75 MCG TABLET (FP) PO SCH (06:17)
[2017-09-18] MEDS: sitaGLIPtin PHOSPHATE 25 MG TABLET (FP) PO SCH (06:17)
[2017-09-18] MEDS ORDERED: DEXTROSE 5%-WATER - 50 ML IVPB ONE (09:06)
[2017-09-18] MEDS: metoPROLOL SUCCINATE 25 MG TAB.SR.24H (FP) PO SCH (09:19)
[2017-09-18] MEDS: THIAMINE HCL 100 MG TABLET (FP) PO SCH (09:19)
[2017-09-18] MEDS: VITAMIN B COMP W-C 1 EA TABLET PO SCH (09:19)
[2017-09-18] MEDS: SACUBITRIL/VALSARTAN 24 MG-26 MG TABLET PO SCH (09:20)
[2017-09-18] MEDS: CLOTRIMAZOLE/BETAMET DIPROP 15 GM TUBE TP SCH (09:24)
--- NOTE | 2017-09-18 12:04 | DS ---
Physical Examination Vital Signs: Vital Signs Temperature 98.2 F 09/18/17 10:00 Pulse Rate 65 09/18/17 10:00 Respiratory Rate 18 09/18/17 10:00 Blood Pressure 97/52 09/18/17 10:00 O2 Sat by Pulse Oximetry (%) 95 09/18/17 09:00 Findings/Remarks: comfortable Pain much better Wants to go back to [facility] afebrile He denies chest pain or shortness of breath Constitutional: Yes: No Distress, Calm Eyes: Yes: Conjunctiva Clear Neck: Yes: Supple Cardiovascular: Yes: Regular Rate and Rhythm Gastrointestinal: Yes: Soft Neurological: Yes: Alert Labs: CBC, BMP 09/16/17 08:15 09/16/17 08:15 Discharge Summary Reason For Visit: OSTEOMYELITIS Current Active Problems Anemia (Acute) Chronic anticoagulation (Acute) 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 (Acute) ESRD (end stage renal disease) (Acute) HTN (hypertension) (Acute) Osteomyelitis (Acute) Hospital Course: Patient underwent-- Operation: debridement of bone and soft tissue with transmetatarsal amputation 2 ,3,4,5 right foot with retention sutures. stable Will discharge back to [facility] Coumadin per INR level Medications reviewed and reconciled Patient to follow--wound care--- as per instructions of the surgeon antibiotics--- As per IDs suggestion----up to 10th Patient in agreement Pain control with Percocet Discussed with nursing staff/case loader operator also anticipate discharge later today Condition: Stable - Instructions Referrals: Kendra Bryson [Primary Care Provider] - - Home Medications Comprehensive Discharge Medication List: Ambulatory Orders Acetaminophen 650 mg PO Q6H PRN 09/11/17 Clopidogrel Bisulfate [Plavix -] 75 mg PO DAILY 09/11/17 Glucosamine Sulfate Dipot Chlr [Glucosamine] 500 mg PO DAILY 09/11/17 Levothyroxine [Synthroid -] 75 mcg PO DAILY 09/11/17 Linagliptin [Tradjenta] 5 mg PO DAILY 09/11/17 Melatonin 5 mg PO HS PRN 09/11/17 Oxycodone HCl/Acetaminophen [Percocet 5-325 mg Tablet] 1 tab PO Q8H PRN Vaboleciemwv-Rign-Smpghxvj,Iso [Zosyn 2.25 gm Pre-Mix Bag] 2.25 gm IV TID Sacubitril/Valsartan [Entresto 24 mg-26 mg Tablet] 1 each PO BID 09/11/17 Sennosides [Senna -] 2 tab PO HS 09/11/17 Sennosides/Docusate Sodium [Senexon-S Tablet] 1 each PO DAILY 09/11/17 Thiamine HCl [B-1] 100 mg PO DAILY 09/11/17 Vitamin B Comp W-C [Nephro-Fer -] 1 tablet PO DAILY 09/11/17 Acetaminophen [Tylenol .Regular Strength -] 325 mg PO Q8H PRN tablet 09/18/17 Insulin Sliding Scale [Novolog Vial Sliding Scale -] 1 vial SQ TIDAC units 07/31 Metoprolol Succinate [Toprol XL -] 12.5 mg PO DAILY tab.sr.24h 09/18/17 Sitagliptin Phosphate [Januvia -] 25 mg PO 0700 tab 09/18/17 Warfarin Na [Coumadin -] 6 mg PO DAILY@1800 tablet 09/18/17
--- NOTE | 2017-09-18 12:07 | PN ---
Progress Note, Physician History of Present Illness: Foot bandage clean and dry. Denies chest pain or dyspnea, foot pain adequately controlled, awaiting therapeutic INR. - Current Medication List Current Medications: Active Medications Acetaminophen (Tylenol -) 650 mg PO Q6H PRN PRN Reason: PAIN 1-5 Last Admin: 09/16/17 19:59 Dose: 650 mg Acetaminophen (Tylenol -) 325 mg PO Q8H PRN PRN Reason: PAIN SCALE 6-10 Last Admin: 09/13/17 21:23 Dose: 325 mg Albumin Human (Albumin Human 25%) 12.5 gm IVPB Q30M [facility] Clotrimazole (Lotrisone Cream (Small Tube)) 1 applic TP BID [facility] Last Admin: 09/18/17 09:24 Dose: 1 applic Sodium Chloride (Normal Saline -) 250 mls @ 3,000 mls/hr IV PRN PRN PRN Reason: Hypotension during Dialysis Stop: 09/15/17 14:35 Piperacillin Sod/Tazobactam (Sod 2.25 gm/ Dextrose) 50 mls @ 100 mls/hr IVPB Q8H-IV [facility]; Protocol Last Admin: 09/18/17 09:20 Dose: 100 mls/hr Sodium Chloride (Normal Saline -) 250 mls @ 3,000 mls/hr IV PRN PRN PRN Reason: Hypotension during Dialysis Stop: 09/16/17 14:57 Insulin Aspart (Novolog Vial Sliding Scale -) 1 vial SQ TIDAC [facility]; Protocol Last Admin: 09/18/17 11:44 Dose: Not Given Levothyroxine Sodium (Synthroid -) 75 mcg PO ACBK [facility] Last Admin: 09/18/17 06:17 Dose: 75 mcg Melatonin (Melatonin) 5 mg PO HS PRN PRN Reason: INSOMNIA Last Admin: 09/18/17 00:42 Dose: 5 mg Metoprolol Succinate (Toprol Xl -) 12.5 mg PO DAILY [facility] Last Admin: 09/18/17 09:19 Dose: 12.5 mg Morphine Sulfate (Morphine Sulfate) 4 mg IVPUSH Q6H PRN PRN Reason: PAIN LEVEL 7 - 10 Last Admin: 09/17/17 13:47 Dose: 4 mg Multivit/Ca Carb/B Cmplx/FA/Prenat (Nephro-Fer -) 1 tablet PO DAILY [facility] Last Admin: 09/18/17 09:19 Dose: 1 tablet Ondansetron HCl (Zofran Injection) 4 mg IVPUSH Q6H PRN PRN Reason: NAUSEA AND/OR VOMITING Oxycodone HCl (Roxicodone -) 10 mg PO Q6H PRN PRN Reason: PAIN LEVEL 6-10 Last Admin: 09/18/17 09:19 Dose: 10 mg Sacubitril/Valsartan (Entresto 24 Mg-26 Mg Tablet) 1 tab PO BID [facility] Last Admin: 09/18/17 09:20 Dose: 1 tab Senna (Senna -) 2 tab PO HS [facility] Last Admin: 09/17/17 21:17 Dose: 2 tab Sitagliptin Phosphate (Januvia -) 25 mg PO 0700 [facility] Last Admin: 09/18/17 06:17 Dose: 25 mg Thiamine HCl (Vitamin B1 -) 100 mg PO DAILY [facility] Last Admin: 09/18/17 09:19 Dose: 100 mg Warfarin Sodium (Coumadin -) 6 mg PO DAILY@1800 [facility] Last Admin: 09/17/17 17:51 Dose: 6 mg - Objective Vital Signs: Vital Signs Temperature 98.2 F 09/18/17 10:00 Pulse Rate 65 09/18/17 10:00 Respiratory Rate 18 09/18/17 10:00 Blood Pressure 97/52 09/18/17 10:00 O2 Sat by Pulse Oximetry (%) 95 09/18/17 09:00 Constitutional: Yes: No Distress, Calm, Thin Neck: Yes: Supple Cardiovascular: Yes: Pulse Irregular Respiratory: Yes: Regular, CTA Bilaterally Gastrointestinal: Yes: Normal Bowel Sounds, Soft Extremities: Yes: Amputation (Rt TMA) Edema: No Wound/Incision: Yes: Dressing Dry and Intact Labs: CBC, BMP 09/16/17 08:15 09/16/17 08:15 INR, PTT INR 1.55 (0.83-1.09) H 09/17/17 15:20 Problem List - Problems (1) Chronic anticoagulation Code(s): Z79.01 - HEALTH PHYSICS TECHNICIAN (CURRENT) USE OF 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 (2) 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 Code(s): E11.9 - TYPE 2 DIABETES MELLITUS WITHOUT COMPLICATIONS Qualifiers: 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 type: type 2 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 penitentiary insulin use: without penitentiary use 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 complication status: without complication Qualified Code(s): E11.9 - Type 2 diabetes mellitus without complications (3) ESRD (end stage renal disease) Code(s): N18.6 - END STAGE RENAL DISEASE (4) HTN (hypertension) Code(s): I10 - ESSENTIAL (PRIMARY) HYPERTENSION Qualifiers: Hypertension type: essential hypertension Qualified Code(s): I10 - Essential (primary) hypertension (5) Osteomyelitis Code(s): M86.9 - OSTEOMYELITIS, UNSPECIFIED Qualifiers: Osteomyelitis type: other Osteomyelitis location: foot Laterality: right Qualified Code(s): M86.8X7 - Other osteomyelitis, ankle and foot (6) Amputated toe of right foot Code(s): Z89.421 - ACQUIRED ABSENCE OF OTHER RIGHT TOE(S) (7) Atrial fibrillation Code(s): I48.91 - UNSPECIFIED ATRIAL FIBRILLATION Qualifiers: Atrial fibrillation type: permanent Qualified Code(s): I48.2 - Chronic atrial fibrillation (8) Cardiomyopathy Code(s): I42.9 - CARDIOMYOPATHY, UNSPECIFIED Qualifiers: Cardiomyopathy type: unspecified Qualified Code(s): I42.9 - Cardiomyopathy , unspecified (9) Hypothyroid Code(s): E03.9 - HYPOTHYROIDISM, UNSPECIFIED Qualifiers: Hypothyroidism type: unspecified Qualified Code(s): E03.9 - Hypothyroidism , unspecified (10) ICD (implantable cardioverter-defibrillator) in place Code(s): Z95.810 - PRESENCE OF AUTOMATIC (IMPLANTABLE) CARDIAC DEFIBRILLATOR (11) Pericardial effusion Code(s): I31.3 - PERICARDIAL EFFUSION (NONINFLAMMATORY) (12) Status post peripheral artery angioplasty Code(s): Z98.62 - PERIPHERAL VASCULAR ANGIOPLASTY STATUS (13) Anemia Code(s): D64.9 - ANEMIA, UNSPECIFIED Qualifiers: Anemia type: due to chronic kidney disease Assessment/Plan 09/12/2017 Echo: Moderate pericardial effusion, no tamponade, mildly dilated LV with severely decreased LV fxn, mild-mod dilated RV with severely decreased RV fxn, mod-severe MUKUL, mild MR, mild-mod TR, mild AR 1. Peripheral artery disease and gangrene right forefoot post right tibial revacularization and POD#6 debridement of bone and soft tissue with transmetatarsal amputation 2. ESRD on HD 3. Persistent AF with subtherapeutic INR 4. Dilated cardiomyopathy with LV systolic dysfunction s/p ICD 5. DM 6. HTN 7. Pericardial effusion 8. Hypothyroidism 9. History of colon CA s/p chemotherapy 10. Anemia of chronic kidney disease PLAN: 1. Continue Metoprolol 12.5 qd 2. Continue Entresto 24/ bid and monitor renal function and electrolytes 3. HD as per Renal service, suspect pericardial effusion is due to uremic pericarditis and treated with HD, pericardiocentesis not indicated 4. Echocardiography was reviewed and does not show any changes compared to study in July of this year. 5. Continue coumadin per INR as post-op hemostasis achieved 6. Complete empiric abx course 7. Geriatric Assistant: Dr. Ghassan Durant
--- NOTE | 2017-09-18 13:15 | PN ---
Progress Note, Physician History of Present Illness: stable no issues dressing dry intact patient doing well - Current Medication List Current Medications: Active Medications Acetaminophen (Tylenol -) 650 mg PO Q6H PRN PRN Reason: PAIN 1-5 Last Admin: 09/16/17 19:59 Dose: 650 mg Acetaminophen (Tylenol -) 325 mg PO Q8H PRN PRN Reason: PAIN SCALE 6-10 Last Admin: 09/13/17 21:23 Dose: 325 mg Albumin Human (Albumin Human 25%) 12.5 gm IVPB Q30M [facility] Clotrimazole (Lotrisone Cream (Small Tube)) 1 applic TP BID [facility] Last Admin: 09/18/17 09:24 Dose: 1 applic Sodium Chloride (Normal Saline -) 250 mls @ 3,000 mls/hr IV PRN PRN PRN Reason: Hypotension during Dialysis Stop: 09/15/17 14:35 Piperacillin Sod/Tazobactam (Sod 2.25 gm/ Dextrose) 50 mls @ 100 mls/hr IVPB Q8H-IV [facility]; Protocol Last Admin: 09/18/17 09:20 Dose: 100 mls/hr Sodium Chloride (Normal Saline -) 250 mls @ 3,000 mls/hr IV PRN PRN PRN Reason: Hypotension during Dialysis Stop: 09/16/17 14:57 Insulin Aspart (Novolog Vial Sliding Scale -) 1 vial SQ TIDAC [facility]; Protocol Last Admin: 09/18/17 11:44 Dose: Not Given Levothyroxine Sodium (Synthroid -) 75 mcg PO ACBK [facility] Last Admin: 09/18/17 06:17 Dose: 75 mcg Melatonin (Melatonin) 5 mg PO HS PRN PRN Reason: INSOMNIA Last Admin: 09/18/17 00:42 Dose: 5 mg Metoprolol Succinate (Toprol Xl -) 12.5 mg PO DAILY [facility] Last Admin: 09/18/17 09:19 Dose: 12.5 mg Morphine Sulfate (Morphine Sulfate) 4 mg IVPUSH Q6H PRN PRN Reason: PAIN LEVEL 7 - 10 Last Admin: 09/17/17 13:47 Dose: 4 mg Multivit/Ca Carb/B Cmplx/FA/Prenat (Nephro-Fer -) 1 tablet PO DAILY [facility] Last Admin: 09/18/17 09:19 Dose: 1 tablet Ondansetron HCl (Zofran Injection) 4 mg IVPUSH Q6H PRN PRN Reason: NAUSEA AND/OR VOMITING Oxycodone HCl (Roxicodone -) 10 mg PO Q6H PRN PRN Reason: PAIN LEVEL 6-10 Last Admin: 09/18/17 09:19 Dose: 10 mg Sacubitril/Valsartan (Entresto 24 Mg-26 Mg Tablet) 1 tab PO BID [facility] Last Admin: 09/18/17 09:20 Dose: 1 tab Senna (Senna -) 2 tab PO HS [facility] Last Admin: 09/17/17 21:17 Dose: 2 tab Sitagliptin Phosphate (Januvia -) 25 mg PO 0700 [facility] Last Admin: 09/18/17 06:17 Dose: 25 mg Thiamine HCl (Vitamin B1 -) 100 mg PO DAILY [facility] Last Admin: 09/18/17 09:19 Dose: 100 mg Warfarin Sodium (Coumadin -) 6 mg PO DAILY@1800 [facility] Last Admin: 09/17/17 17:51 Dose: 6 mg - Objective Vital Signs: Vital Signs Temperature 98.2 F 09/18/17 10:00 Pulse Rate 65 09/18/17 10:00 Respiratory Rate 18 09/18/17 10:00 Blood Pressure 97/52 09/18/17 10:00 O2 Sat by Pulse Oximetry (%) 95 09/18/17 09:00 Constitutional: Yes: No Distress, Calm Cardiovascular: Yes: Regular Rate and Rhythm Respiratory: Yes: Regular, CTA Bilaterally Gastrointestinal: Yes: Normal Bowel Sounds, Soft Musculoskeletal: Yes: WNL Extremities: Yes: Other Neurological: Yes: Alert, Oriented Psychiatric: Yes: Alert, Oriented Labs: CBC, BMP 09/16/17 08:15 09/16/17 08:15 INR, PTT INR 1.55 (0.83-1.09) H 09/17/17 15:20 Assessment/Plan Problem List - Problems (1) ESRD (end stage renal disease) Code(s): N18.6 - END STAGE RENAL DISEASE (2) Osteomyelitis Code(s): M86.9 - OSTEOMYELITIS, UNSPECIFIED Qualifiers: Osteomyelitis type: other Osteomyelitis location: foot Laterality: right Qualified Code(s): M86.8X7 - Other osteomyelitis, ankle and foot (3) Amputated toe of right foot Code(s): Z89.421 - ACQUIRED ABSENCE OF OTHER RIGHT TOE(S) (4) Atrial fibrillation Code(s): I48.91 - UNSPECIFIED ATRIAL FIBRILLATION Qualifiers: (5) Cardiomyopathy Code(s): I42.9 - CARDIOMYOPATHY, UNSPECIFIED Qualifiers: Cardiomyopathy type: unspecified Qualified Code(s): I42.9 - Cardiomyopathy , unspecified (6) Hypothyroid Code(s): E03.9 - HYPOTHYROIDISM, UNSPECIFIED Qualifiers: Hypothyroidism type: unspecified Qualified Code(s): E03.9 - Hypothyroidism , unspecified (7) ICD (implantable cardioverter-defibrillator) in place Code(s): Z95.810 - PRESENCE OF AUTOMATIC (IMPLANTABLE) CARDIAC DEFIBRILLATOR (8) Pericardial effusion Code(s): I31.3 - PERICARDIAL EFFUSION (NONINFLAMMATORY) plan continue iv abx till the 10th rest as per the team patient doing well wound care
--- NOTE | 2017-09-18 14:28 | PN ---
Progress Note, Physician History of Present Illness: Pt seen and examined at bedside. He is awake and alert. He denies shortness of breath. He is eager to go back to rehab. - Current Medication List Current Medications: Active Medications Acetaminophen (Tylenol -) 650 mg PO Q6H PRN PRN Reason: PAIN 1-5 Last Admin: 09/16/17 19:59 Dose: 650 mg Acetaminophen (Tylenol -) 325 mg PO Q8H PRN PRN Reason: PAIN SCALE 6-10 Last Admin: 09/13/17 21:23 Dose: 325 mg Albumin Human (Albumin Human 25%) 12.5 gm IVPB Q30M [facility] Clotrimazole (Lotrisone Cream (Small Tube)) 1 applic TP BID [facility] Last Admin: 09/18/17 09:24 Dose: 1 applic Sodium Chloride (Normal Saline -) 250 mls @ 3,000 mls/hr IV PRN PRN PRN Reason: Hypotension during Dialysis Stop: 09/15/17 14:35 Piperacillin Sod/Tazobactam (Sod 2.25 gm/ Dextrose) 50 mls @ 100 mls/hr IVPB Q8H-IV [facility]; Protocol Last Admin: 09/18/17 09:20 Dose: 100 mls/hr Sodium Chloride (Normal Saline -) 250 mls @ 3,000 mls/hr IV PRN PRN PRN Reason: Hypotension during Dialysis Stop: 09/16/17 14:57 Insulin Aspart (Novolog Vial Sliding Scale -) 1 vial SQ TIDAC [facility]; Protocol Last Admin: 09/18/17 11:44 Dose: Not Given Levothyroxine Sodium (Synthroid -) 75 mcg PO ACBK [facility] Last Admin: 09/18/17 06:17 Dose: 75 mcg Melatonin (Melatonin) 5 mg PO HS PRN PRN Reason: INSOMNIA Last Admin: 09/18/17 00:42 Dose: 5 mg Metoprolol Succinate (Toprol Xl -) 12.5 mg PO DAILY [facility] Last Admin: 09/18/17 09:19 Dose: 12.5 mg Morphine Sulfate (Morphine Sulfate) 4 mg IVPUSH Q6H PRN PRN Reason: PAIN LEVEL 7 - 10 Last Admin: 09/17/17 13:47 Dose: 4 mg Multivit/Ca Carb/B Cmplx/FA/Prenat (Nephro-Fer -) 1 tablet PO DAILY [facility] Last Admin: 09/18/17 09:19 Dose: 1 tablet Ondansetron HCl (Zofran Injection) 4 mg IVPUSH Q6H PRN PRN Reason: NAUSEA AND/OR VOMITING Oxycodone HCl (Roxicodone -) 10 mg PO Q6H PRN PRN Reason: PAIN LEVEL 6-10 Last Admin: 09/18/17 09:19 Dose: 10 mg Sacubitril/Valsartan (Entresto 24 Mg-26 Mg Tablet) 1 tab PO BID [facility] Last Admin: 09/18/17 09:20 Dose: 1 tab Senna (Senna -) 2 tab PO HS [facility] Last Admin: 09/17/17 21:17 Dose: 2 tab Sitagliptin Phosphate (Januvia -) 25 mg PO 0700 [facility] Last Admin: 09/18/17 06:17 Dose: 25 mg Thiamine HCl (Vitamin B1 -) 100 mg PO DAILY [facility] Last Admin: 09/18/17 09:19 Dose: 100 mg Warfarin Sodium (Coumadin -) 6 mg PO DAILY@1800 [facility] Last Admin: 09/17/17 17:51 Dose: 6 mg - Objective Vital Signs: Vital Signs Temperature 98.2 F 09/18/17 10:00 Pulse Rate 65 09/18/17 10:00 Respiratory Rate 18 09/18/17 10:00 Blood Pressure 97/52 09/18/17 10:00 O2 Sat by Pulse Oximetry (%) 95 09/18/17 09:00 Constitutional: Yes: Calm Eyes: Yes: Conjunctiva Clear Cardiovascular: Yes: S1, S2 Respiratory: Yes: CTA Bilaterally Gastrointestinal: Yes: Normal Bowel Sounds, Soft Genitourinary: Yes: WNL Musculoskeletal: Yes: WNL Edema: Yes Edema: LLE: Trace, RLE: Trace Wound/Incision: Yes: Dressing Dry and Intact Neurological: Yes: Confusion Psychiatric: Yes: Oriented Labs: CBC, BMP 09/16/17 08:15 09/16/17 08:15 INR, PTT INR 1.55 (0.83-1.09) H 09/17/17 15:20 Problem List - Problems (1) ESRD (end stage renal disease) Code(s): N18.6 - END STAGE RENAL DISEASE (2) Osteomyelitis Code(s): M86.9 - OSTEOMYELITIS, UNSPECIFIED Qualifiers: Osteomyelitis type: other Osteomyelitis location: foot Laterality: right Qualified Code(s): M86.8X7 - Other osteomyelitis, ankle and foot (3) Atrial fibrillation Code(s): I48.91 - UNSPECIFIED ATRIAL FIBRILLATION Qualifiers: Atrial fibrillation type: permanent Qualified Code(s): I48.2 - Chronic atrial fibrillation Assessment/Plan Current Medications Generic Name Dose Route Start Last Admin Trade Name Freq PRN Reason Stop Dose Admin Acetaminophen 650 mg 09/12/17 14:28 09/16/17 19:59 Tylenol - PO 650 mg Q6H PRN Administration PAIN 1-5 Acetaminophen 325 mg 09/12/17 14:28 09/13/17 21:23 Tylenol - PO 325 mg Q8H PRN Administration PAIN SCALE 6-10 Albumin Human 12.5 gm 09/16/17 15:00 Albumin Human 25% IVPB Q30M [facility] Clotrimazole 1 applic 09/12/17 22:00 09/18/17 09:24 Lotrisone Cream (Small Tube) TP 1 applic BID [facility] Administration Sodium Chloride 250 mls @ 3,000 mls/hr 09/14/17 14:35 Normal Saline - IV 09/15/17 14:35 PRN PRN Hypotension during Dialysis Piperacillin Sod/Tazobactam 50 mls @ 100 mls/hr 09/15/17 18:00 09/18/17 09:20 Sod 2.25 gm/ Dextrose IVPB 100 mls/hr Q8H-IV [facility] Administration Protocol Sodium Chloride 250 mls @ 3,000 mls/hr 09/15/17 14:57 Normal Saline - IV 09/16/17 14:57 PRN PRN Hypotension during Dialysis Insulin Aspart 1 vial 09/12/17 16:30 09/18/17 11:44 Novolog Vial Sliding Scale - SQ Not Given TIDAC [facility] Protocol Levothyroxine Sodium 75 mcg 09/13/17 07:00 09/18/17 06:17 Synthroid - PO 75 mcg ACBK [facility] Administration Melatonin 5 mg 09/12/17 22:00 09/18/17 00:42 Melatonin PO 5 mg HS PRN Administration INSOMNIA Metoprolol Succinate 12.5 mg 09/13/17 10:00 09/18/17 09:19 Toprol Xl - PO 12.5 mg DAILY [facility] Administration Morphine Sulfate 4 mg 09/17/17 12:34 09/17/17 13:47 Morphine Sulfate IVPUSH 4 mg Q6H PRN Administration PAIN LEVEL 7 - 10 Multivit/Ca Carb/B Cmplx/FA/Prenat 1 tablet 09/13/17 10:00 09/18/17 09:19 Nephro-Fer - PO 1 tablet DAILY [facility] Administration Ondansetron HCl 4 mg 09/12/17 14:28 Zofran Injection IVPUSH Q6H PRN NAUSEA AND/OR VOMITING Oxycodone HCl 10 mg 09/17/17 14:03 09/18/17 09:19 Roxicodone - PO 10 mg Q6H PRN Administration PAIN LEVEL 6-10 Sacubitril/Valsartan 1 tab 09/12/17 22:00 09/18/17 09:20 Entresto 24 Mg-26 Mg Tablet PO 1 tab BID [facility] Administration Senna 2 tab 09/12/17 22:00 09/17/17 21:17 Senna - PO 2 tab HS [facility] Administration Sitagliptin Phosphate 25 mg 09/13/17 07:00 09/18/17 06:17 Januvia - PO 25 mg 0700 [facility] Administration Thiamine HCl 100 mg 09/13/17 10:00 09/18/17 09:19 Vitamin B1 - PO 100 mg DAILY [facility] Administration Warfarin Sodium 6 mg 09/16/17 11:41 09/17/17 17:51 Coumadin - PO 6 mg DAILY@1800 [facility] Administration Impression 1. ESRD 2. hx pericardial effusion 3. hx pneumopericardium 4. hypothyroidism 5. a-fib 6. hypotension 7. hx of colon cancer 8. CHF 9. DM 10. hx of PE 11. CAD 12. foot ulcer Plan - pt set up for HD tomorrow as outpt - pt to get HD on , mon, sat schedule - echo will need to be repeated to evaluate effusion - should follow with cardiology after discharge as well - explained plan with pt - cont wound care
[2017-09-18 14:49] VITALS: BP 98/49; PULSE 68; TEMP 98.5
[2017-09-19 18:25] VITALS: BMI 30.1
== END 2017-09-18 16:29 | DRG 239 ==
LOC: JER 09:50 → JERBED 13:24 → J6S 16:58
PROVIDERS: ADMIT Internal Medicine; ATTEND Internal Medicine
PROC: 5A1D70Z Performance of Urinary Filtration, Intermittent, Less than 6 Hours Per Day (ICD-10-PCS; 2017-09-11)
PROC: 0Y6M0ZD Detachment at Right Foot, Partial 4th Ray, Open Approach (ICD-10-PCS; 2017-09-12)
PROC: 0Y6M0ZF Detachment at Right Foot, Partial 5th Ray, Open Approach (ICD-10-PCS; 2017-09-12)
PROC: 0Y6M0ZB Detachment at Right Foot, Partial 2nd Ray, Open Approach (ICD-10-PCS; principal; 2017-09-12 10:00)
PROC: 0Y6M0ZC Detachment at Right Foot, Partial 3rd Ray, Open Approach (ICD-10-PCS; 2017-09-12 10:00)
PROC: 5A1D70Z Performance of Urinary Filtration, Intermittent, Less than 6 Hours Per Day (ICD-10-PCS; 2017-09-13)
PROC: 5A1D70Z Performance of Urinary Filtration, Intermittent, Less than 6 Hours Per Day (ICD-10-PCS; 2017-09-14)
PROC: 5A1D70Z Performance of Urinary Filtration, Intermittent, Less than 6 Hours Per Day (ICD-10-PCS; 2017-09-16)
DX: E11.52 Type 2 diabetes mellitus with diabetic peripheral angiopathy with gangrene (principal); N18.6 End stage renal disease; L03.115 Cellulitis of right lower limb; I31.3 Pericardial effusion (noninflammatory); I96 Gangrene, not elsewhere classified; I42.0 Dilated cardiomyopathy; L97.518 Non-pressure chronic ulcer of other part of right foot with other specified severity; I13.2 Hypertensive heart and chronic kidney disease with heart failure and with stage 5 chronic kidney disease, or end stage renal disease; M86.8X7 Other osteomyelitis, ankle and foot; I25.10 Atherosclerotic heart disease of native coronary artery without angina pectoris; E11.22 Type 2 diabetes mellitus with diabetic chronic kidney disease; E11.42 Type 2 diabetes mellitus with diabetic polyneuropathy; J44.9 Chronic obstructive pulmonary disease, unspecified; I48.2 Chronic atrial fibrillation; E03.9 Hypothyroidism, unspecified; I25.2 Old myocardial infarction; S91.301D Unspecified open wound, right foot, subsequent encounter; D63.8 Anemia in other chronic diseases classified elsewhere; E11.621 Type 2 diabetes mellitus with foot ulcer; Z99.2 Dependence on renal dialysis; Z98.62 Peripheral vascular angioplasty status; Z89.421 Acquired absence of other right toe(s); Z87.891 Personal history of nicotine dependence; Z85.038 Personal history of other malignant neoplasm of large intestine; Z86.711 Personal history of pulmonary embolism; Z95.810 Presence of automatic (implantable) cardiac defibrillator; Z79.01 Long term (current) use of anticoagulants
CPT/HCPCS: 36415; 71045-TC-FY; 73630-TC-RT-FY; 80048; 80053; 82962; 83036; 85025; 85027; 85610; 86704; 86706; 86708; 86803; 86850; 86900; 86901; 87070; 87077; 87205; 87340; 88304-TC; 88305-TC; 88311-TC; 93005; 93010; 93306-TC; 94760; 97116-GP; 97161-GP; 99285-25; J0885

== ENCOUNTER 2017-10-03 14:30 | Inpatient (IN) | payer BC, OTHER ==
--- NOTE | 2017-10-03 14:35 | PDOC ---
Rapid Medical Evaluation Time Seen by Provider: 10/03/17 14:32 Medical Evaluation: Allergies Allergy/AdvReac Type Severity Reaction Status Date / Time No Known Drug Allergies Allergy Verified 09/11/17 09:55 10/03/17 14:32 Pt is a 72 y/o M who presents to the ED with worsening R foot wound. Pt on zosyn with worsening edema and erythema. Dialyzed today Exam: in wheelchair, foot wrapped. NAD. Orders: Labs, x-ray Pt to proceed to ED for further evaluation Discharge Disposition - Diagnosis Diabetic foot ulcer - Referrals - Patient Instructions - Post Discharge Activity
--- NOTE | 2017-10-03 15:23 | PDOC ---
Attending Attestation - HPI HPI: 10/03/17 17:13 The patient is a 72 year old male, [facility] resident, with a significant PMH of CHF s/p left chest wall pacemaker/AICD, DM with neuropathy, HTN, PE, ESRD on HD w/ R. upper extremity fistula, [place], Colon CA, and Afib sent in by wound care for a possible right foot infection. The patient was seen at wound care today and sent the patient to the ER because his right foot felt mushy. 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 Patient endorses right foot pain that travels up to his right calf. Patient usually takes morphine and percocet for his pain. Patient endorses mild shortness of breath but denies chest pain, headache and dizziness. Denies fever, chills, nausea, vomit, diarrhea and constipation. Denies dysuria, frequency, urgency and hematuria. Allergies: NKA Past surgical history: Colon CA RX w/chemo. AICD, Pacemaker, R. Upper extremity AV fistula, L. leg angioplasty, L. foot digit amputation. Social history: No reported alcohol, drug, or cigarette use. - Physicial Exam PE: 10/03/17 17:14 Vitals: Triage Vital signs reviewed General Appearance: no acute distress, well nourished well developed, Head: Atraumatic, normocephalic Neck: Supple;No Nuchal rigidity Cardiac: Regular rate and rhythm, no murmurs, no rubs, no gallops, Lungs: Clear to auscultation bilateral, good air movement bilaterally, Abdomen: Soft, nondistended, normal bowel sounds, nontender to palpation Rectal: Exam deferred Extremities: (+) Patient has a recent amputation to the 2nd, 3rd, and 4th right digits, slight opening with some pus noted. Full range of motion to all extremities, no cyanosis or clubbing. Skin: Warm and dry, no rashes or lesions, no petechiae Neuro: AOX3; Cranial Nerves 2-12 grossly intact, Strength intact to all extremities, Sensation intact to all extremities Psych: normal mood, normal affect <Becky Bustos - Last Filed: 10/03/17 17:13> - Resident Resident Name: Natacha Martinez - ED Attending Attestation I have performed the following: I have examined & evaluated the patient, The case was reviewed & discussed with the resident, I agree w/resident's findings & plan, Exceptions are as noted - Medical Decision Making 10/03/17 18:52 Patient presents from wound care for infected diabetic foot status post resection of right second through fifth digits. Patient is a ready on Zosyn we'll add vancomycin for additional coverage ultrasound ordered to rule out DVT x-rays ordered. We'll minutes patient to medicine for further management. <Efrain Chacon - Last Filed: 10/03/17 18:52> Heart Score/ECG Review - ECG Impressions Comment:: 10/03/17 18:52 EKG performed at 1613. Demonstrates ventricular paced rhythm. <Efrain Chacon - Last Filed: 10/03/17 18:52>
--- NOTE | 2017-10-03 15:36 | PDOC ---
History of Present Illness - General Chief Complaint: Edema Stated Complaint: LEG PAIN Time Seen by Provider: 10/03/17 14:32 History Source: Patient Exam Limitations: No Limitations - History of Present Illness Initial Comments: 10/03/17 15:35 Pt is a 72yo m with PMH of DM, CHF, ESRD on dialysis, AICD, PE, HTN, Colon CA s/ p resection presenting to ED from wound care clinic for a possible infection in his R foot because "the foot felt mushy". Pt was recently admitted for amputation of 2 digits on his R foot due to gangrene. Pt says he has been going to wound clinic and receiving hyperbaric treatments for the past 8 days. He has been having pain in his R foot for the past couple of weeks and the pain travels up to his R calf. He admits to SOB (he takes 3L O2 at home occasionally ) and headache. He denies fever, chills, cough, chest pain, palpitations, syncope, abdominal pain, N/V/D, dysuria. He takes morphine, percocet for the pain. Pt resides at [facility]. He had dialysis today but his Dr wants him to get dialysis tmo. PCP: Joe Char Puller: Lisandra PMH: see hpi PSH: AICD insertion ([employer]), Colon resection Meds: see med rec Allergies: nkda Social: denies Past History - Past Medical History Allergies/Adverse Reactions: Allergies Allergy/AdvReac Type Severity Reaction Status Date / Time No Known Drug Allergies Allergy Verified 09/11/17 09:55 Home Medications: Ambulatory Orders Clopidogrel Bisulfate [Plavix -] 75 mg PO DAILY 09/11/17 Glucosamine Sulfate Dipot Chlr [Glucosamine] 500 mg PO DAILY 09/11/17 Levothyroxine [Synthroid -] 75 mcg PO DAILY 09/11/17 Linagliptin [Tradjenta] 5 mg PO DAILY 09/11/17 Melatonin 5 mg PO HS PRN 09/11/17 Oxycodone HCl/Acetaminophen [Percocet 5-325 mg Tablet] 1 tab PO Q8H PRN Sdfasztzurqk-Npkx-Jqzcjapy,Iso [Zosyn 2.25 gm Pre-Mix Bag] 2.25 gm IV TID Sacubitril/Valsartan [Entresto 24 mg-26 mg Tablet] 1 each PO BID 09/11/17 Sennosides [Senna -] 2 tab PO HS 09/11/17 Sennosides/Docusate Sodium [Senexon-S Tablet] 1 each PO DAILY 09/11/17 Thiamine HCl [B-1] 100 mg PO DAILY 09/11/17 Vitamin B Comp W-C [Nephro-Fer -] 1 tablet PO DAILY 09/11/17 Acetaminophen [Tylenol .Regular Strength -] 325 mg PO Q8H PRN tablet 09/18/17 Metoprolol Succinate [Toprol XL -] 12.5 mg PO DAILY tab.sr.24h 09/18/17 Sitagliptin Phosphate [Januvia -] 25 mg PO 0700 tab 09/18/17 Warfarin Na [Coumadin -] 6 mg PO DAILY@1800 tablet 09/18/17 Anemia: No Asthma: Yes Cancer: Yes (COLON CA) Cardiac Disorders: Yes ([place], PE, A-fib) COPD: No CHF: Yes Diabetes: Yes (neuropathy) Dialysis: Yes () HTN: Yes Hypercholesterolemia: Yes Thyroid Disease: Yes (on dialysis ) - Surgical History Abdominal Surgery: Yes (SURGERY FOR COLON CA RX WITH CHEMO) Cardiac Surgery: Yes (Pacemaker) - Immunization History Immunization Up to Date: Yes - Suicide/Smoking/Psychosocial Hx Smoking History: Never smoked Have you smoked in the past 12 months: No If you are a former smoker, when did you quit?: 1981 Information on smoking cessation initiated: No Hx Alcohol Use: No Drug/Substance Use Hx: No Substance Use Type: None Hx Substance Use Treatment: No Review of Systems - Review of Systems Constitutional: No: Chills, Fever, Loss of Appetite HEENTM: No: Recent change in vision, Ear Pain, Throat Pain Respiratory: Yes: Shortness of Breath. No: Cough Cardiac (ROS): No: Chest Pain, Lightheadedness, Palpitations, Syncope ABD/GI: No: Constipated, Diarrhea, Nausea, Vomiting : No: Burning, Dysuria Musculoskeletal: Yes: Joint Pain, Other (R foot pain, R calf/leg pain). No: Back Pain, Muscle Pain, Muscle Weakness Integumentary: Yes: Other (surgical inscision on R foot) Neurological: Yes: Dizziness. No: Numbness, Paresthesia, Tingling, Weakness *Physical Exam - Vital Signs Last Vital Signs Temp Pulse Resp BP Pulse Ox 98.6 F 67 16 100/53 99 10/03/17 14:32 10/03/17 14:32 10/03/17 14:32 10/03/17 14:32 10/03/17 14:32 - Physical Exam General Appearance: Yes: Nourished, Appropriately Dressed. No: Apparent Distress HEENT: positive: EOMI, TERE, Hearing Grossly Normal. negative: Photophobia, Scleral Icterus (R), Scleral Icterus (L), Pharyngeal Erythema Neck: positive: Trachea midline, Supple. negative: Lymphadenopathy (R), Lymphadenopathy (L) Respiratory/Chest: positive: Lungs Clear, Normal Breath Sounds. negative: Crackles, Rhonchi, Stridor, Wheezing Cardiovascular: positive: Regular Rhythm, Regular Rate, S1, S2. negative: JVD, Murmur Comments:: 10/03/17 16:37 could not palpate dorsalis pedis. Radial pulses 2+ bilaterally. 10/03/17 16:37 Gastrointestinal/Abdominal: positive: Normal Bowel Sounds, Soft. negative: Distended, Guarding Musculoskeletal: negative: CVA Tenderness Extremity: positive: Normal Capillary Refill, Other (R leg diffusely tender below the knee. Swollen. Warm. R foot s/p amputation of digits 2-5. incision site looks clean. Ulcerations with purulent discharge. Foot is diffusely tender. No crepitus heard. L heel is tender) Integumentary: positive: Normal Color, Dry, Warm, Other (Skin on dorsal aspect of R foot has ulcerations with some purulence. L foot grossly normal.). 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 NML intact, Fully Oriented, Alert, Normal Mood/ Affect, Normal Response, Motor Strength / ED Treatment Course - LABORATORY CBC & Chemistry Diagram: 10/03/17 15:39 10/03/17 15:39 - RADIOLOGY Radiology Studies Ordered: Category Date Time Status CHEST X-RAY PORTABLE* [RAD] Stat Radiology 10/03/17 15:34 Ordered FOOT-LEFT [RAD] Stat Radiology 10/03/17 15:26 Ordered DUPLEX VASCUL US-1 LEG [US] Stat Ultrasound 10/03/17 15:26 Ordered Medical Decision Making - Medical Decision Making 10/03/17 19:42 Pt is a 72yo m with PMH of DM, CHF, ESRD on dialysis, AICD, PE, HTN, Colon CA s/ p resection presenting to ED from wound care clinic for a possible infection in his R foot because "the foot felt mushy". Whole R leg is tender Pt most likely has cellulitis. DVT study will be performed to r/o dvt. Sepsis work up ordered. Xray of foot ordered to see if there is any gas in the tissue and check for any osteo. Pt started on Vanc, Zosyn. Given 4mg morphine for pain. Pt is afebrile and does not have white count. PT/INR elevated 35.6 Hgb 10.4 Cr 4.7 Doppler: no DVT. Elongated lymph node in R groin Upon reevaluation, pt complained of pain. Will give 4mg morphine. Call placed to Dr. Middleton for consult. Call placed again. Found out that admits to to [facility] after 5pm. [facility] sent out. Talked to JOSE Hurd Pt will be admitted to Dr. Billingsley then Dr. Middleton. *DC/Admit/Observation/Transfer Diagnosis at time of Disposition: Cellulitis Qualifiers: Site of cellulitis: extremity Site of cellulitis of extremity: lower extremity Laterality: right Qualified Code(s): L03.115 - Cellulitis of right lower limb - Discharge Dispostion Decision to Admit order: Yes - Referrals - Patient Instructions - Post Discharge Activity
[2017-10-03 15:50] LABS: BASO % 0.3 % (0-2.0); EOS % 3.7 % (0-4.5); HEMATOCRIT 31.7 % (35.4-49); HEMOGLOBIN 10.4 GM/dL (11.7-16.9); MCH 29.7 pg (25.7-33.7); MCHC 32.9 g/dl (32.0-35.9); MEAN CELL VOLUME 90.2 fl (80-96); MEAN PLT VOLUME 8.5 fl (7.5-11.1); MONO % 24.5 % (3.8-10.2); NEUT % 62.5 % (42.8-82.8); PLATELET COUNT 200 K/MM3 (134-434); RBC 3.51 M/mm3 (4.00-5.60); RDW 17.7 % (11.9-15.9); WHITE BLOOD COUNT 4.4 K/mm3 (4.0-10.0)
[2017-10-03 16:11] LABS: ALBUMIN 2.5 g/dl (3.4-5.0); ALK PHOS 111 U/L (45-117); ANION GAP 11 MMOL/L (8-16); BILIRUBIN,TOTAL 0.9 mg/dL (0.2-1.0); BLOOD UREA NITROGEN 17 mg/dL (7-18); CALCIUM 8.7 mg/dL (8.5-10.1); CHLORIDE 94 mmol/L (98-107); CO2 28 mmol/L (21-32); CREATININE 4.7 mg/dL (0.7-1.3); GLUCOSE,RANDOM 106 mg/dL (74-106); SGOT/AST 32 U/L (15-37); SGPT/ALT 12 U/L (12-78); SODIUM 133 mmol/L (136-145)
[2017-10-03 16:54] LABS: PLATELET ESTIMATE ADEQUATE
[2017-10-03 17:05] LABS: INR 3.15 (0.83-1.09); PROTHROMBIN TIME (PATIENT) 35.6 SEC (9.7-13.0)
[2017-10-03] MEDS ORDERED: VANCOMYCIN 1,000 MG in DEXTROSE 5%-WATER - 250 ML IVPB ONE (17:29)
[2017-10-03] MEDS ORDERED: PIPERACILLIN/TAZOB 3.375 GM 3.375 GM in DEXTROSE 5%-WATER - 50 ML IVPB ONE (17:29)
[2017-10-03] MEDS ORDERED: morphine CARPU-JECT 4 MG/1 ML DISP.SYRIN IVPUSH ONE (17:31)
[2017-10-03] MEDS ORDERED: morphine SULFATE 4 MG/ML VIAL ONE ×2 (17:35→21:03)
[2017-10-03] MEDS ORDERED: PIPERACILLIN/TAZOB 3.375 GM 3.375 GM/50 ML BAG IVPB ONE (18:36)
[2017-10-03] MEDS ORDERED: VANCOMYCIN 1 GRAM (PRE-DOCKED) 1,000 MG/250 ML BAG IVPB ONE (19:10)
[2017-10-03] MEDS ORDERED: morphine CARPU-JECT 2 MG/1 ML DISP.SYRIN IVPUSH ONE (19:51)
--- NOTE | 2017-10-03 21:24 | HP ---
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 Who presents to the ED from the wound center for a R- foot wound infection, for admission and IV ABX. Patient reports since the amputations he has been having his dressings changed by several staff at the care home and the wound center. He reports that the nurse at [facility] told him his wound looked like it was not healing. Patient denies fever, chills, cough, SOB, CP, palpitations, AP , N/V/D, constipation. 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 TESTER: Yes: Peripheral Neuropathy Cardiovascular: Yes: AFIB Pulmonary: Yes: COPD, Pulmonary Embolus Gastrointestinal: Yes: Cancer (COLON), Other (PATIENT STATES HE WAS RESECTED AND RECEIVED CHEMOTX AND RT AT [facility]) Renal/: Yes: Renal Failure, Hemodialysis Heme/Onc: Yes: Anemia Musculoskeletal: Yes: Other (RIGHT ANKLE/FOOT PAIN 10/10 WITH RIGHT LATERAL METATARSAL ULCER W DRAINAGE) Endocrine: Yes: Diabetes Mellitus - Past Surgical History Past Surgical History: Yes: AICD, AV Fistula/Graft - Advance Directives Advance Directives: Yes: Health Care Proxy - Smoking History Smoking history: Former smoker Have you smoked in the past 12 months: No If you are a former smoker, when did you quit?: 1981 - Alcohol/Substance Use Hx Alcohol Use: No History of Substance Use: reports: None - Social History Usual Living Arrangement: Yes: Skilled Nursing ADL: Support Services History of Recent Travel: No Home Medications - Allergies Allergies/Adverse Reactions: Allergies Allergy/AdvReac Type Severity Reaction Status Date / Time No Known Drug Allergies Allergy Verified 09/11/17 09:55 - Home Medications Home Medications: Ambulatory Orders Clopidogrel Bisulfate [Plavix -] 75 mg PO DAILY 09/11/17 Glucosamine Sulfate Dipot Chlr [Glucosamine] 500 mg PO DAILY 09/11/17 Levothyroxine [Synthroid -] 75 mcg PO DAILY 09/11/17 Linagliptin [Tradjenta] 5 mg PO DAILY 09/11/17 Melatonin 5 mg PO HS PRN 09/11/17 Oxycodone HCl/Acetaminophen [Percocet 5-325 mg Tablet] 1 tab PO Q8H PRN Yrpdxgrgnvhm-Cjfr-Qwgoflii,Iso [Zosyn 2.25 gm Pre-Mix Bag] 2.25 gm IV TID Sacubitril/Valsartan [Entresto 24 mg-26 mg Tablet] 1 each PO BID 09/11/17 Sennosides [Senna -] 2 tab PO HS 09/11/17 Sennosides/Docusate Sodium [Senexon-S Tablet] 1 each PO DAILY 09/11/17 Thiamine HCl [B-1] 100 mg PO DAILY 09/11/17 Vitamin B Comp W-C [Nephro-Fer -] 1 tablet PO DAILY 09/11/17 Acetaminophen [Tylenol .Regular Strength -] 325 mg PO Q8H PRN tablet 09/18/17 Metoprolol Succinate [Toprol XL -] 12.5 mg PO DAILY tab.sr.24h 09/18/17 Sitagliptin Phosphate [Januvia -] 25 mg PO 0700 tab 09/18/17 Warfarin Na [Coumadin -] 6 mg PO DAILY@1800 tablet 09/18/17 Insulin Aspart [Novolog] 100 unit SQ BID 10/04/17 Family Disease History - Family Disease History Family History: Unable to Obtain Review of Systems - Review of Systems Constitutional: reports: Chills Eyes: reports: No Symptoms HENT: reports: Ear Pain (right) Neck: reports: No Symptoms Cardiovascular: reports: No Symptoms Respiratory: reports: SOB Gastrointestinal: reports: No Symptoms Genitourinary: reports: No Symptoms Breasts: reports: No Symptoms Reported Musculoskeletal: reports: Extremity Pain, Joint Pain, Joint Swelling Integumentary: reports: No Symptoms Neurological: reports: Numbness, Parasthesia, Seizure Endocrine: reports: Unexplained Weight Gain Hematology/Lymphatic: reports: No Symptoms Psychiatric: reports: No Symptoms Physical Examination Vital Signs: Vital Signs Temperature 98.6 F 10/03/17 14:32 Pulse Rate 67 10/03/17 14:32 Respiratory Rate 16 10/03/17 14:32 Blood Pressure 100/53 10/03/17 14:32 O2 Sat by Pulse Oximetry (%) 99 10/03/17 14:32 Constitutional: Yes: Well Nourished, No Distress, Calm Eyes: Yes: WNL, Conjunctiva Clear, EOM Intact, PERRL HENT: Yes: WNL, Atraumatic, Normocephalic Neck: Yes: WNL, Supple, Trachea Midline Cardiovascular: Yes: Pulse Irregular, S1, S2 Respiratory: Yes: WNL, Regular, CTA Bilaterally, On Nasal O2 Gastrointestinal: Yes: Normal Bowel Sounds, Soft ...Rectal Exam: Yes: Deferred Breast(s): Yes: WNL Musculoskeletal: Yes: WNL Extremities: Yes: WNL Edema: Yes Edema: LLE: 2+, RLE: 2+ Peripheral Pulses WNL: Yes Wound/Incision: Yes: Sutures Intact, Dressing Removed, Unapproximated Neurological: Yes: WNL, Alert, Oriented, Cran Nerves II-XII Intact ...Motor Strength: WNL Psychiatric: Yes: WNL, Alert, Oriented Labs: CBC, BMP 10/03/17 15:39 10/03/17 15:39 Imaging - Results Chest X-ray: Pending Cat Scan: Image Reviewed EKG: Image Reviewed Problem List - Problems (1) Diabetic foot ulcer Code(s): E11.621 - TYPE 2 DIABETES MELLITUS WITH FOOT ULCER; L97.509 - NON- PRESSURE CHRONIC ULCER OTH PRT UNSP FOOT W UNSP SEVERITY (2) Amputated toe of right foot Code(s): Z89.421 - ACQUIRED ABSENCE OF OTHER RIGHT TOE(S) (3) Cellulitis of right lower extremity Code(s): L03.115 - CELLULITIS OF RIGHT LOWER LIMB (4) Anemia Code(s): D64.9 - ANEMIA, UNSPECIFIED Qualifiers: Anemia type: due to chronic kidney disease (5) Atrial fibrillation Code(s): I48.91 - UNSPECIFIED ATRIAL FIBRILLATION Qualifiers: Atrial fibrillation type: permanent Qualified Code(s): I48.2 - Chronic atrial fibrillation (6) Chronic anticoagulation Code(s): Z79.01 - MCFP (CURRENT) USE OF 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 (7) 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 Code(s): E11.9 - TYPE 2 DIABETES MELLITUS WITHOUT COMPLICATIONS Qualifiers: 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 type: type 2 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 longterm insulin use: without longterm use 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 complication status: without complication Qualified Code(s): E11.9 - Type 2 diabetes mellitus without complications (8) ESRD (end stage renal disease) Code(s): N18.6 - END STAGE RENAL DISEASE (9) HTN (hypertension) Code(s): I10 - ESSENTIAL (PRIMARY) HYPERTENSION Qualifiers: Hypertension type: essential hypertension Qualified Code(s): I10 - Essential (primary) hypertension (10) Hypothyroid Code(s): E03.9 - HYPOTHYROIDISM, UNSPECIFIED Qualifiers: Hypothyroidism type: unspecified Qualified Code(s): E03.9 - Hypothyroidism , unspecified Assessment/Plan This is a 72 y/o man Admitted for Cellulitis of the Right Foot, Diabetic Wound Infection for further evaluation of their emergent condition. Plan: 1. Right Foot Cellulitis, Diabetic Foot Wound Will Admit to M/S for R- foot Cellulitis secondary to Failed Outpatient Therapy. Appreciate ID consult, Appreciate Vascular consult, Zosyn and Vancomycin given in ED will continue, Blood Cultures-pending, no leukocytosis, +neutrophila, lactate nl likely due to recent ABX use. Repeat CBC, BMP in am, Monitor vitals, elevate extremity Duplex of LE r/o DVT pending Morphine Sulfate given in ED, will continue judiciously 2.ESRD HD on ,, Appreciate Nephrology consult for HD management Monitor renal function 3. Afib [id number] 4 Hold Coumadin tonight INR is Supratherapeutic Series INRs Resume Coumadin with ranges 2.0-3.0 3. Diabetes Mellitus BGMs ISS 4. Hypertension Stable Monitor BP Continue home meds with parameters FEN Fluid Restriction 1L Replete lytes prn Renal, Diabetic Low Na Diet DVT ppx SCDs Heparin SQ Code Status: Full Code Dispo: Requires Inpatient Care Visit type - Emergency Visit Emergency Visit: Yes ED Registration Date: 10/03/17 Care time: The patient presented to the Emergency Department on the above date and was hospitalized for further evaluation of their emergent condition. - New Patient This patient is new to me today: Yes Date on this admission: 10/03/17 - Critical Care Critical Care patient: No Hospitalist Screening - Colonoscopy Questionnaire Colonoscopy Questionnaire: Colonoscopy Questionnaire - Patient: 50 - 75 years old and never had a screening colonoscopy: No History of colon or rectal polyps, or CA: Yes History of IBD, Crohn's disease or UC: No History of abdominal radiation therapy as a child: No - Relative: 1 with colon or rectal CA, or polyps at age 60 or younger: No Colon or rectal CA diagnosed at age 45 or younger: No Multiple relatives with colon or rectal CA: No - Outcome: Screening Result: Positive Screen
[2017-10-03] MEDS ORDERED: HEPARIN NA (PORCINE) 5,000 UNITS/ML 1ML VIAL SQ SCH (22:00)
[2017-10-03] MEDS: SENNOSIDES 8.6MG TABLET (FP) PO SCH (23:30)
[2017-10-03] MEDS: MELATONIN 5 MG TABLETS PO PRN (23:34)
[2017-10-04] MEDS: oxyCODONE HCL 5 MG TABLET PO PRN ×2 (05:49→13:58)
[2017-10-04] MEDS: ACETAMINOPHEN 325 MG TABLET (FP) PO PRN ×2 (05:50→13:58)
[2017-10-04] MEDS: sitaGLIPtin PHOSPHATE 25 MG TABLET (FP) PO SCH (06:33)
[2017-10-04] MEDS: LEVOTHYROXINE NA 75 MCG TABLET (FP) PO SCH (06:33)
[2017-10-04 07:24] LABS: BASO % 1.1 % (0-2.0); EOS % 4.2 % (0-4.5); HEMATOCRIT 30.7 % (35.4-49); HEMOGLOBIN 9.9 GM/dL (11.7-16.9); LYMPH % 11.4 % (8-40); MCH 29.1 pg (25.7-33.7); MCHC 32.3 g/dl (32.0-35.9); MEAN CELL VOLUME 90.3 fl (80-96); MEAN PLT VOLUME 8.7 fl (7.5-11.1); MONO % 30.7 % (3.8-10.2); NEUT % 52.6 % (42.8-82.8); PLATELET COUNT 181 K/MM3 (134-434); RDW 17.7 % (11.9-15.9); WHITE BLOOD COUNT 4.1 K/mm3 (4.0-10.0)
[2017-10-04 08:04] LABS: ANION GAP 13 MMOL/L (8-16); BLOOD UREA NITROGEN 20 mg/dL (7-18); CALCIUM 8.8 mg/dL (8.5-10.1); CHLORIDE 94 mmol/L (98-107); CO2 27 mmol/L (21-32); CREATININE 5.4 mg/dL (0.7-1.3); GLUCOSE,RANDOM 76 mg/dL (74-106); POTASSIUM 3.2 mmol/L (3.5-5.1); SODIUM 134 mmol/L (136-145)
--- NOTE | 2017-10-04 09:18 | CONSULT ---
Consult - text type - Consultation Consultation Note: Pt seen in bed. States his looks better then yesterday. Also states he has a new wound on left heel. Got in rehab facility. +sutures intact right foot tma, -drainage, +necrotic patches noted dorsally on foot, -mal odor, wbc=4.1, +dusky flap edges with necrosis, +eschar lateral left heel, [id number], Sutures intact post op wound necrotic changes chronic pvd Sutures removed. Santyl dressing to right foot and left heel. Vascular to follow possible re-vascularization. Discussed at length patient circulatory problem and current vascular disease. Sutures were removed. Deep wound culture done. Will follow. Awaiting vascular recommendations for further intervention. Possible revision of TMA. Read and appreciated vascular note.
[2017-10-04 09:19] LABS: PLATELET ESTIMATE ADEQUATE
[2017-10-04] MEDS: metoPROLOL SUCCINATE 25 MG TAB.SR.24H (FP) PO SCH (09:26)
[2017-10-04] MEDS: morphine SULFATE 10 MG/5 ML UNIT-DOSE CUP PO SCH ×2 (09:30→21:46)
[2017-10-04] MEDS: SENNOSIDES/DOCUSATE COMBO (SENNA PLUS) TABLET (UD) PO SCH (09:30)
[2017-10-04] MEDS: CLOPIDOGREL BISULFATE 75 MG TABLET (FP) PO SCH (09:30)
[2017-10-04] MEDS: VITAMIN B COMP W-C 1 EA TABLET PO SCH (09:30)
[2017-10-04] MEDS: THIAMINE HCL 100 MG TABLET (FP) PO SCH (09:30)
--- NOTE | 2017-10-04 09:51 | PN ---
Progress Note (short form) - Note Progress Note: Patient seen this am Right leg swollen/redness/tenderness pain controlled with current regimen as per patient Vital Signs Temp 98.6 F 10/04/17 05:53 Pulse 65 10/04/17 05:53 Resp 20 10/04/17 05:53 BP 90/66 10/04/17 05:53 Pulse Ox 99 10/03/17 19:35 Intake & Output 10/03/17 10/03/17 10/04/17 11:59 23:59 11:59 Intake Total 100 Balance 100 Weight 216 lb 14.4 oz 216 lb 14.4 oz Intake: Oral 100 Other: Voiding Method Toilet # Unmeasured Voids Void 0 Bowel Movement No Height 5 ft 10 in Body Mass Index (BMI) 31.1 Weight Measurement Method Standing Scale Standing Scale Weight Measurement Method Est/Stated by Patient Active Medications Acetaminophen (Tylenol -) 325 mg PO Q8H PRN PRN Reason: PAIN LEVEL 7 - 10 Last Admin: 10/04/17 05:50 Dose: 325 mg Clopidogrel Bisulfate (Plavix -) 75 mg PO DAILY [facility] Last Admin: 10/04/17 09:30 Dose: 75 mg Collagenase (Santyl -) 1 applic TP DAILY [facility]; Protocol Levothyroxine Sodium (Synthroid -) 75 mcg PO DAILY@0700 [facility] Last Admin: 10/04/17 06:33 Dose: 75 mcg Melatonin (Melatonin) 5 mg PO HS PRN PRN Reason: INSOMNIA Last Admin: 10/03/17 23:34 Dose: 5 mg Metoprolol Succinate (Toprol Xl -) 12.5 mg PO DAILY [facility] Last Admin: 10/04/17 09:26 Dose: Not Given Morphine Sulfate (Morphine 10 Mg/5 Ml Liquid) 10 mg PO BID [facility] Last Admin: 10/04/17 09:30 Dose: 10 mg Multivit/Ca Carb/B Cmplx/FA/Prenat (Nephro-Fer -) 1 tablet PO DAILY [facility] Last Admin: 10/04/17 09:30 Dose: 1 tablet Oxycodone HCl (Roxicodone -) 5 mg PO Q8H PRN PRN Reason: PAIN LEVEL 7 - 10 Last Admin: 10/04/17 05:49 Dose: 5 mg Senna (Senna -) 2 tab PO HS [facility] Last Admin: 10/03/17 23:30 Dose: 2 tab Senna/Docusate Sodium (Pericolace -) 1 tablet PO DAILY [facility] Last Admin: 10/04/17 09:30 Dose: 1 tablet Sitagliptin Phosphate (Januvia -) 25 mg PO 0700 [facility] Last Admin: 10/04/17 06:33 Dose: 25 mg Thiamine HCl (Vitamin B1 -) 100 mg PO DAILY [facility] Last Admin: 10/04/17 09:30 Dose: 100 mg Warfarin Sodium (Coumadin -) 6 mg PO DAILY@1800 [facility] CBC,CMP WBC 4.1 K/mm3 (4.0-10.0) 10/04/17 06:35 RBC 3.40 M/mm3 (4.00-5.60) L 10/04/17 06:35 Hgb 9.9 GM/dL (11.7-16.9) L 10/04/17 06:35 Hct 30.7 % (35.4-49) L 10/04/17 06:35 MCV 90.3 fl (80-96) 10/04/17 06:35 MCH 29.1 pg (25.7-33.7) 10/04/17 06:35 MCHC 32.3 g/dl (32.0-35.9) 10/04/17 06:35 RDW 17.7 % (11.9-15.9) H 10/04/17 06:35 Plt Count 181 K/MM3 (134-434) 10/04/17 06:35 MPV 8.7 fl (7.5-11.1) 10/04/17 06:35 Absolute Neuts (auto) 2.1 K/mm3 (1.5-8.0) 10/04/17 06:35 Total Counted 100 10/04/17 06:35 Neutrophils % 52.6 % (42.8-82.8) 10/04/17 06:35 Neutrophils % (Manual) 57.0 % (42.8-82.8) 10/04/17 06:35 Band Neutrophils % 0.0 % 10/03/17 15:39 Lymphocytes % 11.4 % (8-40) D 10/04/17 06:35 Lymphocytes % (Manual) 13.0 % (8-40) D 10/04/17 06:35 Monocytes % 30.7 % (3.8-10.2) H 10/04/17 06:35 Monocytes % (Manual) 25 % (3.8-10.2) H 10/04/17 06:35 Eosinophils % 4.2 % (0-4.5) 10/04/17 06:35 Eosinophils % (Manual) 5.0 % (0-4.5) H 10/04/17 06:35 Basophils % 1.1 % (0-2.0) D 10/04/17 06:35 Basophils % (Manual) 0.0 % (0-2.0) 10/03/17 15:39 Nucleated RBC % 0 % (0-0) 10/04/17 06:35 Platelet Estimate Adequate 10/04/17 06:35 Sodium 134 mmol/L (136-145) L 10/04/17 06:35 Potassium 3.2 mmol/L (3.5-5.1) L 10/04/17 06:35 Chloride 94 mmol/L (98-107) L 10/04/17 06:35 Carbon Dioxide 27 mmol/L (21-32) 10/04/17 06:35 Anion Gap 13 MMOL/L (8-16) 10/04/17 06:35 BUN 20 mg/dL (7-18) H 10/04/17 06:35 Creatinine 5.4 mg/dL (0.7-1.3) H 10/04/17 06:35 Creat Clearance w eGFR 10.52 (>60) 10/04/17 06:35 POC Glucometer 85 UNITS (80-120) 10/04/17 05:53 Random Glucose 76 mg/dL (74-106) D 10/04/17 06:35 Lactic Acid 1.2 mmol/L (0.0-2.0) 10/03/17 15:55 Calcium 8.8 mg/dL (8.5-10.1) 10/04/17 06:35 Total Bilirubin 0.9 mg/dL (0.2-1.0) 10/03/17 15:39 AST 32 U/L (15-37) D 10/03/17 15:39 ALT 12 U/L (12-78) D 10/03/17 15:39 Alkaline Phosphatase 111 U/L (45-117) D 10/03/17 15:39 Troponin I 0.02 ng/ml (0.00-0.05) D 10/03/17 21:20 Total Protein 8.0 g/dl (6.4-8.2) 10/03/17 15:39 Albumin 2.5 g/dl (3.4-5.0) L 10/03/17 15:39 neuro-alert, oriented neck: Yes: WNL, Supple, Trachea Midline Cardiovascular: Yes: Pulse regular, S1, S2 Respiratory: Yes: WNL, Regular, CTA Bilaterally, On Nasal O2 Gastrointestinal: Yes: Normal Bowel Sounds, Soft Edema: Yes Edema: + A/P Right foor cellulitis DM CHF S/P right posterior tibial artery re-vascularization and subsequent foot amputation digit-2-5 afib PE Colon ca- s/p resection peripheral neuropathy ESRD on HD antibiotics per ID rate controlled with BB, A/C per inr nephrology and vascular consult BGM monitoring Discussed with dr theodore
[2017-10-04] MEDS ORDERED: PATIENT'S OWN MEDICATION (NON-FORMULARY) (Linagliptin [Tradjenta] 5 MG) PO SCH (10:00)
[2017-10-04] MEDS ORDERED: morphine SULFATE 10 MG/5 ML UNIT-DOSE CUP PO SCH (10:00)
[2017-10-04] MEDS: COLLAGENASE CLOSTRIDIUM HIST. 30 GRAMS TUBE TP SCH (10:35)
[2017-10-04 11:52] LABS: INR 2.83 (0.83-1.09)
--- NOTE | 2017-10-04 12:15 | CON.ID ---
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 Who presents to the ED from the wound center for a R- foot wound infection, for admission and IV ABX. Patient reports since the amputations he has been having his dressings changed by several staff at the intermediate and the wound center. He reports that the nurse at [facility] told him his wound looked like it was not healing. Patient denies fever, chills, cough, SOB, CP, palpitations, AP, N/V/D, constipation. this patient just completed course of abx for wound infection - Past Medical History DESIGN LEAD: Yes: Peripheral Neuropathy Cardio/Vascular: Yes: AFIB Pulmonary: Yes: COPD, Pulmonary Embolus Gastrointestinal: Yes: Cancer (COLON), Other (PATIENT STATES HE WAS RESECTED AND RECEIVED CHEMOTX AND RT AT [facility]) Renal/: Yes: Renal Failure, Hemodialysis Musculoskeletal: Yes: Other (RIGHT ANKLE/FOOT PAIN 10/10 WITH RIGHT LATERAL METATARSAL ULCER W DRAINAGE) Endocrine: Yes: Diabetes Mellitus - Past Surgical History Past Surgical History: Yes: AICD, AV Fistula/Graft - Alcohol/Substance Use Hx Alcohol Use: No History of Substance Use: reports: None - Smoking History Smoking history: Former smoker Have you smoked in the past 12 months: No If you are a former smoker, when did you quit?: 1981 - Social History ADL: Support Services History of Recent Travel: No Home Medications - Allergies Allergies/Adverse Reactions: Allergies Allergy/AdvReac Type Severity Reaction Status Date / Time No Known Drug Allergies Allergy Verified 09/11/17 09:55 - Home Medications Home Medications: Ambulatory Orders Clopidogrel Bisulfate [Plavix -] 75 mg PO DAILY 09/11/17 Glucosamine Sulfate Dipot Chlr [Glucosamine] 500 mg PO DAILY 09/11/17 Levothyroxine [Synthroid -] 75 mcg PO DAILY 09/11/17 Linagliptin [Tradjenta] 5 mg PO DAILY 09/11/17 Melatonin 5 mg PO HS PRN 09/11/17 Oxycodone HCl/Acetaminophen [Percocet 5-325 mg Tablet] 1 tab PO Q8H PRN Iygiqxgiktzf-Undh-Iuwvzqwk,Iso [Zosyn 2.25 gm Pre-Mix Bag] 2.25 gm IV TID Sacubitril/Valsartan [Entresto 24 mg-26 mg Tablet] 1 each PO BID 09/11/17 Sennosides [Senna -] 2 tab PO HS 09/11/17 Sennosides/Docusate Sodium [Senexon-S Tablet] 1 each PO DAILY 09/11/17 Thiamine HCl [B-1] 100 mg PO DAILY 09/11/17 Vitamin B Comp W-C [Nephro-Fer -] 1 tablet PO DAILY 09/11/17 Acetaminophen [Tylenol .Regular Strength -] 325 mg PO Q8H PRN tablet 09/18/17 Metoprolol Succinate [Toprol XL -] 12.5 mg PO DAILY tab.sr.24h 09/18/17 Sitagliptin Phosphate [Januvia -] 25 mg PO 0700 tab 09/18/17 Warfarin Na [Coumadin -] 6 mg PO DAILY@1800 tablet 09/18/17 Insulin Aspart [Novolog] 100 unit SQ BID 10/04/17 Review of Systems - Review of Systems Constitutional: reports: No Symptoms Eyes: reports: No Symptoms HENT: reports: No Symptoms Neck: reports: No Symptoms Cardiovascular: reports: No Symptoms Respiratory: reports: No Symptoms Gastrointestinal: reports: No Symptoms Genitourinary: reports: No Symptoms Musculoskeletal: reports: Other Integumentary: reports: Erythema Neurological: reports: No Symptoms Endocrine: reports: No Symptoms Hematology/Lymphatic: reports: No Symptoms Psychiatric: reports: No Symptoms Physical Exam Vital Signs: Vital Signs Temperature 97.6 F 10/04/17 09:00 Pulse Rate 65 10/04/17 09:00 Respiratory Rate 20 10/04/17 09:00 Blood Pressure 92/55 10/04/17 09:00 O2 Sat by Pulse Oximetry (%) 99 10/04/17 09:00 Constitutional: Yes: Well Nourished, No Distress, Calm Cardiovascular: Yes: Regular Rate and Rhythm Respiratory: Yes: Regular Gastrointestinal: Yes: Normal Bowel Sounds, Soft Musculoskeletal: Yes: Other Extremities: Yes: Erythema, Other Wound/Incision: Yes: Dressing Removed, Other Neurological: Yes: Alert, Oriented Psychiatric: Yes: Alert, Oriented Labs: CBC, BMP 10/04/17 06:35 10/04/17 06:35 Imaging - Results Chest X-ray: Report Reviewed, Image Reviewed X-ray: Report Reviewed, Image Reviewed Assessment/Plan Problem List - Problems (1) Diabetic foot ulcer Code(s): E11.621 - TYPE 2 DIABETES MELLITUS WITH FOOT ULCER; L97.509 - NON- PRESSURE CHRONIC ULCER OTH PRT UNSP FOOT W UNSP SEVERITY (2) Amputated toe of right foot Code(s): Z89.421 - ACQUIRED ABSENCE OF OTHER RIGHT TOE(S) (3) Cellulitis of right lower extremity Code(s): L03.115 - CELLULITIS OF RIGHT LOWER LIMB (4) Anemia Code(s): D64.9 - ANEMIA, UNSPECIFIED Qualifiers: Anemia type: due to chronic kidney disease (5) Atrial fibrillation Code(s): I48.91 - UNSPECIFIED ATRIAL FIBRILLATION Qualifiers: Atrial fibrillation type: permanent Qualified Code(s): I48.2 - Chronic atrial fibrillation (6) Chronic anticoagulation Code(s): Z79.01 - GROUP HOME (CURRENT) USE OF 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 (7) 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 Code(s): E11.9 - TYPE 2 DIABETES MELLITUS WITHOUT COMPLICATIONS Qualifiers: 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 type: type 2 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 chcf insulin use: without chcf use 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 complication status: without complication Qualified Code(s): E11.9 - Type 2 diabetes mellitus without complications (8) ESRD (end stage renal disease) Code(s): N18.6 - END STAGE RENAL DISEASE (9) HTN (hypertension) Code(s): I10 - ESSENTIAL (PRIMARY) HYPERTENSION Qualifiers: Hypertension type: essential hypertension Qualified Code(s): I10 - Essential (primary) hypertension (10) Hypothyroid Code(s): E03.9 - HYPOTHYROIDISM, UNSPECIFIED Qualifiers: Hypothyroidism type: unspecified Qualified Code(s): E03.9 - Hypothyroidism , unspecified Assessment/Plan This is a 72 y/o man Admitted for Cellulitis of the Right Foot, Diabetic Wound Infection for further evaluation of their emergent condition. plan continue abx will await for [facility] podiatry to see the patient plan to be made rest as per the team
[2017-10-04] MEDS ORDERED: DEXTROSE 5%-WATER - 50 ML IVPB ONE ×2 (12:42→17:01)
[2017-10-04] MEDS ORDERED: PIPERACILLIN/TAZOBACTAM 2.25 GM VIAL IVPB ONE ×2 (12:42→17:01)
[2017-10-04] MEDS: diphenhydrAMINE HCL 25 MG CAPSULE (FP) PO PRN ×2 (12:46→21:52)
[2017-10-04] MEDS: PIPERACILLIN/TAZOB 2.25 GM 2.25 GM in DEXTROSE 5%-WATER - 50 ML IVPB SCH ×2 (12:46→17:10)
--- NOTE | 2017-10-04 12:55 | CONSULT ---
Consult - History of Present Illness History of Present Illness: 72 year old man with DM, ESRD who had revascularization of his right posterior tibial artery in August and subsequently underwent amputation of right toes 2-5. 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 Cardio/Vascular: Yes: AFIB Pulmonary: Yes: COPD, Pulmonary Embolus Gastrointestinal: Yes: Cancer (COLON), Other (PATIENT STATES HE WAS RESECTED AND RECEIVED CHEMOTX AND RT AT [facility]) Renal/: Yes: Renal Failure, Hemodialysis Musculoskeletal: Yes: Other (RIGHT ANKLE/FOOT PAIN 10/10 WITH RIGHT LATERAL METATARSAL ULCER W DRAINAGE) Endocrine: Yes: Diabetes Mellitus - Past Surgical History Past Surgical History: Yes: AICD, AV Fistula/Graft - Alcohol/Substance Use Hx Alcohol Use: No History of Substance Use: reports: None - Smoking History Smoking history: Former smoker Have you smoked in the past 12 months: No If you are a former smoker, when did you quit?: 1981 - Social History ADL: Support Services History of Recent Travel: No Home Medications - Allergies Allergies/Adverse Reactions: Allergies Allergy/AdvReac Type Severity Reaction Status Date / Time No Known Drug Allergies Allergy Verified 09/11/17 09:55 - Home Medications Home Medications: Ambulatory Orders Clopidogrel Bisulfate [Plavix -] 75 mg PO DAILY 09/11/17 Glucosamine Sulfate Dipot Chlr [Glucosamine] 500 mg PO DAILY 09/11/17 Levothyroxine [Synthroid -] 75 mcg PO DAILY 09/11/17 Linagliptin [Tradjenta] 5 mg PO DAILY 09/11/17 Melatonin 5 mg PO HS PRN 09/11/17 Oxycodone HCl/Acetaminophen [Percocet 5-325 mg Tablet] 1 tab PO Q8H PRN Zwxceqjxdsvh-Usac-Ckkcyiar,Iso [Zosyn 2.25 gm Pre-Mix Bag] 2.25 gm IV TID Sacubitril/Valsartan [Entresto 24 mg-26 mg Tablet] 1 each PO BID 09/11/17 Sennosides [Senna -] 2 tab PO HS 09/11/17 Sennosides/Docusate Sodium [Senexon-S Tablet] 1 each PO DAILY 09/11/17 Thiamine HCl [B-1] 100 mg PO DAILY 09/11/17 Vitamin B Comp W-C [Nephro-Fer -] 1 tablet PO DAILY 09/11/17 Acetaminophen [Tylenol .Regular Strength -] 325 mg PO Q8H PRN tablet 09/18/17 Metoprolol Succinate [Toprol XL -] 12.5 mg PO DAILY tab.sr.24h 09/18/17 Sitagliptin Phosphate [Januvia -] 25 mg PO 0700 tab 09/18/17 Warfarin Na [Coumadin -] 6 mg PO DAILY@1800 tablet 09/18/17 Insulin Aspart [Novolog] 100 unit SQ BID 10/04/17 Physical Exam Vital Signs: Vital Signs Temperature 97.6 F 10/04/17 09:00 Pulse Rate 65 10/04/17 09:00 Respiratory Rate 20 10/04/17 09:00 Blood Pressure 92/55 10/04/17 09:00 O2 Sat by Pulse Oximetry (%) 99 10/04/17 09:00 Extremities: Yes: Other (3+ pitting edema of the right calf, ankle and foot. Bloody drainage from the lateral foot with necrotic skin flaps at site of recent amputations. No palpable pedal pulses.) Labs: CBC, BMP 10/04/17 06:35 10/04/17 06:35 Problem List - Problems (1) Open wound of foot Code(s): S91.309A - UNSPECIFIED OPEN WOUND, UNSPECIFIED FOOT, INITIAL ENCOUNTER Qualifiers: Encounter type: subsequent encounter Laterality: right Qualified Code(s) : S91.301D - Unspecified open wound, right foot, subsequent encounter (2) Status post peripheral artery angioplasty Assessment/Plan: Will need to assess the patency of the recent tibial angioplasty. If the vessels are occluded a repeat angiogram and possibly a distal bypass will be needed. Code(s): Z98.62 - PERIPHERAL VASCULAR ANGIOPLASTY STATUS
--- NOTE | 2017-10-04 13:21 | CONSULT ---
Consult Consult Specialty:: Nephrology Reason for Consultation:: ESRD - History of Present Illness Chief Complaint: sent in for right foot infection History of Present Illness: Pt is a 72 year old male with pmhx of CHF, ESRD, pericardial effusion, lower ext ulcer, and a-fib who presents to the er for evaluation of foot infection. He does follow with podiatry and vascular. He was last dialyzed yesterday. He has a pericardial effusion and was getting extra HD sessions. He denies shortness of breath or chest pain. He was recently discharged from the hospital. 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: Peripheral Neuropathy Cardio/Vascular: Yes: AFIB Pulmonary: Yes: COPD, Pulmonary Embolus Gastrointestinal: Yes: Cancer (COLON), Other (PATIENT STATES HE WAS RESECTED AND RECEIVED CHEMOTX AND RT AT [facility]) Renal/: Yes: Renal Failure, Hemodialysis Musculoskeletal: Yes: Other (RIGHT ANKLE/FOOT PAIN 10/10 WITH RIGHT LATERAL METATARSAL ULCER W DRAINAGE) Endocrine: Yes: Diabetes Mellitus - Past Surgical History Past Surgical History: Yes: AICD, AV Fistula/Graft - Alcohol/Substance Use Hx Alcohol Use: No History of Substance Use: reports: None - Smoking History Smoking history: Former smoker Have you smoked in the past 12 months: No If you are a former smoker, when did you quit?: 1981 - Social History ADL: Support Services History of Recent Travel: No Home Medications - Allergies Allergies/Adverse Reactions: Allergies Allergy/AdvReac Type Severity Reaction Status Date / Time No Known Drug Allergies Allergy Verified 09/11/17 09:55 - Home Medications Home Medications: Ambulatory Orders Clopidogrel Bisulfate [Plavix -] 75 mg PO DAILY 09/11/17 Glucosamine Sulfate Dipot Chlr [Glucosamine] 500 mg PO DAILY 09/11/17 Levothyroxine [Synthroid -] 75 mcg PO DAILY 09/11/17 Linagliptin [Tradjenta] 5 mg PO DAILY 09/11/17 Melatonin 5 mg PO HS PRN 09/11/17 Oxycodone HCl/Acetaminophen [Percocet 5-325 mg Tablet] 1 tab PO Q8H PRN Lmynecswshsg-Wdnu-Sldzhjgo,Iso [Zosyn 2.25 gm Pre-Mix Bag] 2.25 gm IV TID Sacubitril/Valsartan [Entresto 24 mg-26 mg Tablet] 1 each PO BID 09/11/17 Sennosides [Senna -] 2 tab PO HS 09/11/17 Sennosides/Docusate Sodium [Senexon-S Tablet] 1 each PO DAILY 09/11/17 Thiamine HCl [B-1] 100 mg PO DAILY 09/11/17 Vitamin B Comp W-C [Nephro-Fer -] 1 tablet PO DAILY 09/11/17 Acetaminophen [Tylenol .Regular Strength -] 325 mg PO Q8H PRN tablet 09/18/17 Metoprolol Succinate [Toprol XL -] 12.5 mg PO DAILY tab.sr.24h 09/18/17 Sitagliptin Phosphate [Januvia -] 25 mg PO 0700 tab 09/18/17 Warfarin Na [Coumadin -] 6 mg PO DAILY@1800 tablet 09/18/17 Insulin Aspart [Novolog] 100 unit SQ BID 10/04/17 Family Disease History - Family Disease History Family History: Denies Review of Systems - Review of Systems Constitutional: reports: No Symptoms Eyes: reports: No Symptoms HENT: reports: No Symptoms Neck: reports: No Symptoms Cardiovascular: reports: No Symptoms Respiratory: reports: No Symptoms Gastrointestinal: reports: No Symptoms Genitourinary: reports: No Symptoms Physical Exam Vital Signs: Vital Signs Temperature 97.6 F 10/04/17 09:00 Pulse Rate 65 10/04/17 09:00 Respiratory Rate 20 10/04/17 09:00 Blood Pressure 92/55 10/04/17 09:00 O2 Sat by Pulse Oximetry (%) 99 10/04/17 09:00 Constitutional: Yes: Calm Eyes: Yes: Conjunctiva Clear HENT: Yes: Atraumatic Neck: Yes: Supple Cardiovascular: Yes: S1, S2 Respiratory: Yes: CTA Bilaterally Gastrointestinal: Yes: Normal Bowel Sounds, Soft Renal/: Yes: WNL Musculoskeletal: Yes: WNL Edema: Yes Edema: LLE: Trace, RLE: Trace Neurological: Yes: Oriented Psychiatric: Yes: Oriented Labs: CBC, BMP 10/04/17 06:35 10/04/17 06:35 Laboratory Tests 10/03/17 10/04/17 10/04/17 15:39 06:35 06:35 Hgb 10.4 L 9.9 L Potassium 3.2 L Imaging - Results Chest X-ray: Report Reviewed Problem List - Problems (1) Cellulitis Code(s): L03.90 - CELLULITIS, UNSPECIFIED Qualifiers: Site of cellulitis: extremity Site of cellulitis of extremity: lower extremity Laterality: right Qualified Code(s): L03.115 - Cellulitis of right lower limb (2) Diabetic foot ulcer Code(s): E11.621 - TYPE 2 DIABETES MELLITUS WITH FOOT ULCER; L97.509 - NON- PRESSURE CHRONIC ULCER OTH PRT UNSP FOOT W UNSP SEVERITY (3) Anemia Code(s): D64.9 - ANEMIA, UNSPECIFIED Qualifiers: Anemia type: due to chronic kidney disease (4) Atrial fibrillation Code(s): I48.91 - UNSPECIFIED ATRIAL FIBRILLATION Qualifiers: Atrial fibrillation type: permanent Qualified Code(s): I48.2 - Chronic atrial fibrillation (5) ESRD (end stage renal disease) Code(s): N18.6 - END STAGE RENAL DISEASE Assessment/Plan Current Medications Generic Name Dose Route Start Last Admin Trade Name Freq PRN Reason Stop Dose Admin Acetaminophen 325 mg 10/04/17 05:13 10/04/17 05:50 Tylenol - PO 325 mg Q8H PRN Administration PAIN LEVEL 7 - 10 Clopidogrel Bisulfate 75 mg 10/04/17 10:00 10/04/17 09:30 Plavix - PO 75 mg DAILY VIRAJ Administration Collagenase 1 applic 10/04/17 10:00 10/04/17 10:35 Santyl - TP 1 applic DAILY VIRAJ Administration Protocol Diphenhydramine HCl 25 mg 10/04/17 11:51 10/04/17 12:46 Benadryl - PO 25 mg Q8H PRN Administration ITCHING Piperacillin Sod/Tazobactam 50 mls @ 100 mls/hr 10/04/17 12:30 10/04/17 12:46 Sod 2.25 gm/ Dextrose IVPB 100 mls/hr Q8H-IV VIRAJ Administration Protocol Levothyroxine Sodium 75 mcg 10/04/17 07:00 10/04/17 06:33 Synthroid - PO 75 mcg DAILY@0700 VIRAJ Administration Melatonin 5 mg 10/03/17 22:00 10/03/17 23:34 Melatonin PO 5 mg HS PRN Administration INSOMNIA Metoprolol Succinate 12.5 mg 10/04/17 10:00 10/04/17 09:26 Toprol Xl - PO Not Given DAILY [facility] Morphine Sulfate 10 mg 10/04/17 10:00 10/04/17 09:30 Morphine 10 Mg/5 Ml Liquid PO 10 mg BID VIRAJ Administration Multivit/Ca Carb/B Cmplx/FA/Prenat 1 tablet 10/04/17 10:00 10/04/17 09:30 Nephro-Fer - PO 1 tablet DAILY VIRAJ Administration Oxycodone HCl 5 mg 10/04/17 05:13 10/04/17 05:49 Roxicodone - PO 5 mg Q8H PRN Administration PAIN LEVEL 7 - 10 Senna 2 tab 10/03/17 22:00 10/03/17 23:30 Senna - PO 2 tab HS VIRAJ Administration Senna/Docusate Sodium 1 tablet 10/04/17 10:00 10/04/17 09:30 Pericolace - PO 1 tablet DAILY VIRAJ Administration Sitagliptin Phosphate 25 mg 10/04/17 07:00 10/04/17 06:33 Januvia - PO 25 mg 0700 VIRAJ Administration Thiamine HCl 100 mg 10/04/17 10:00 10/04/17 09:30 Vitamin B1 - PO 100 mg DAILY VIRAJ Administration Warfarin Sodium 6 mg 10/04/17 18:00 Coumadin - PO DAILY@1800 [facility] Impression 1. ESRD 2. hx pericardial effusion 3. hx pneumopericardium 4. hypothyroidism 5. a-fib 6. hypotension 7. hx of colon cancer 8. CHF 9. DM 10. hx of PE 11. CAD 12. foot ulcer Plan - ID eval for abx - will arrange for HD in am - echo to be done to evaluate pericardial effusion status - discussed with cardio - cont wound care - will follow Dr Conklin
--- NOTE | 2017-10-04 14:29 | CON.CARD ---
Consult Consult Specialty:: Cardiology Referred by:: Milind Conklin MD Reason for Consultation:: Pericardial effusion - History of Present Illness Chief Complaint: Right foot infection History of Present Illness: Patient is a 72 year old male with underlying history of ESRD on HD (, , Sat), dilated cardiomyopathy with severe LV systolic dysfunctin, s/p ICD, DM, HTN, AF, hypothyroidism PAD with gangrene right forefoot post right tibial revacularization, debridement of bone and soft tissue with transmetatarsal amputation earlier this month presented for non-healing wound infection despite HBO2 and wound care treatments. Echocardiography in July and September 12, 2017 revealed stable moderate pericardial effusion without evidence of tamponade and severely reduced LV systolic function. He denies chest pain, SOB or palpitations. He denies paroxysmal nocturnal dyspnea or orthopnea. He denies fever or chills. Nutrition Manager: Dr. 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 Cardio/Vascular: Yes: AFIB Pulmonary: Yes: COPD, Pulmonary Embolus Gastrointestinal: Yes: Cancer (COLON), Other (PATIENT STATES HE WAS RESECTED AND RECEIVED CHEMOTX AND RT AT [facility]) Renal/: Yes: Renal Failure, Hemodialysis Musculoskeletal: Yes: Other (RIGHT ANKLE/FOOT PAIN 10/10 WITH RIGHT LATERAL METATARSAL ULCER W DRAINAGE) Endocrine: Yes: Diabetes Mellitus - Past Surgical History Past Surgical History: Yes: AICD, AV Fistula/Graft - Alcohol/Substance Use Hx Alcohol Use: No History of Substance Use: reports: None - Smoking History Smoking history: Former smoker Have you smoked in the past 12 months: No If you are a former smoker, when did you quit?: 1981 - Social History ADL: Support Services History of Recent Travel: No Home Medications - Allergies Allergies/Adverse Reactions: Allergies Allergy/AdvReac Type Severity Reaction Status Date / Time No Known Drug Allergies Allergy Verified 09/11/17 09:55 - Home Medications Home Medications: Ambulatory Orders Clopidogrel Bisulfate [Plavix -] 75 mg PO DAILY 09/11/17 Glucosamine Sulfate Dipot Chlr [Glucosamine] 500 mg PO DAILY 09/11/17 Levothyroxine [Synthroid -] 75 mcg PO DAILY 09/11/17 Linagliptin [Tradjenta] 5 mg PO DAILY 09/11/17 Melatonin 5 mg PO HS PRN 09/11/17 Oxycodone HCl/Acetaminophen [Percocet 5-325 mg Tablet] 1 tab PO Q8H PRN Qjrylhtuqueu-Urvf-Fkjmkryt,Iso [Zosyn 2.25 gm Pre-Mix Bag] 2.25 gm IV TID Sacubitril/Valsartan [Entresto 24 mg-26 mg Tablet] 1 each PO BID 09/11/17 Sennosides [Senna -] 2 tab PO HS 09/11/17 Sennosides/Docusate Sodium [Senexon-S Tablet] 1 each PO DAILY 09/11/17 Thiamine HCl [B-1] 100 mg PO DAILY 09/11/17 Vitamin B Comp W-C [Nephro-Fer -] 1 tablet PO DAILY 09/11/17 Acetaminophen [Tylenol .Regular Strength -] 325 mg PO Q8H PRN tablet 09/18/17 Metoprolol Succinate [Toprol XL -] 12.5 mg PO DAILY tab.sr.24h 09/18/17 Sitagliptin Phosphate [Januvia -] 25 mg PO 0700 tab 09/18/17 Warfarin Na [Coumadin -] 6 mg PO DAILY@1800 tablet 09/18/17 Insulin Aspart [Novolog] 100 unit SQ BID 10/04/17 Vital Signs: Vital Signs Temperature 97.6 F 10/04/17 09:00 Pulse Rate 65 10/04/17 09:00 Respiratory Rate 20 10/04/17 09:00 Blood Pressure 92/55 10/04/17 09:00 O2 Sat by Pulse Oximetry (%) 99 10/04/17 09:00 Constitutional: Yes: No Distress, Calm, Thin Neck: Yes: Supple Respiratory: Yes: Regular, CTA Bilaterally Gastrointestinal: Yes: Normal Bowel Sounds, Soft Cardiovascular: Yes: Regular Rate and Rhythm JVD: No Carotid Bruit: No Heart Sounds: Yes: S1, S2 Edema: Yes - Other Data Labs, Other Data: CBC, BMP 10/04/17 06:35 10/04/17 06:35 INR, PTT INR 2.83 (0.83-1.09) H 10/04/17 10:57 Troponin, BNP 10/03/17 21:20 Troponin I 0.02 D Troponin, BNP 10/03/17 21:20 Troponin I 0.02 D Underlying afib, V-paced @ 65 Ejection Fraction %: LVEF < 40 % Imaging - Results Chest X-ray: Report Reviewed (NAD) Problem List - Problems (1) Atrial fibrillation Code(s): I48.91 - UNSPECIFIED ATRIAL FIBRILLATION Qualifiers: Atrial fibrillation type: permanent Qualified Code(s): I48.2 - Chronic atrial fibrillation (2) Cardiomyopathy Code(s): I42.9 - CARDIOMYOPATHY, UNSPECIFIED Qualifiers: Cardiomyopathy type: unspecified Qualified Code(s): I42.9 - Cardiomyopathy , unspecified (3) Chronic anticoagulation Code(s): 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 (4) 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 Code(s): E11.9 - TYPE 2 DIABETES MELLITUS WITHOUT COMPLICATIONS Qualifiers: 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 type: type 2 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 skilled nursing insulin use: without exterminator helper use 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 complication status: without complication Qualified Code(s): E11.9 - Type 2 diabetes mellitus without complications (5) ESRD (end stage renal disease) Code(s): N18.6 - END STAGE RENAL DISEASE (6) HTN (hypertension) Code(s): I10 - ESSENTIAL (PRIMARY) HYPERTENSION Qualifiers: Hypertension type: essential hypertension Qualified Code(s): I10 - Essential (primary) hypertension (7) Hypothyroid Code(s): E03.9 - HYPOTHYROIDISM, UNSPECIFIED Qualifiers: Hypothyroidism type: unspecified Qualified Code(s): E03.9 - Hypothyroidism , unspecified (8) ICD (implantable cardioverter-defibrillator) in place Code(s): Z95.810 - PRESENCE OF AUTOMATIC (IMPLANTABLE) CARDIAC DEFIBRILLATOR (9) Open wound of foot Code(s): S91.309A - UNSPECIFIED OPEN WOUND, UNSPECIFIED FOOT, INITIAL ENCOUNTER Qualifiers: Encounter type: subsequent encounter Laterality: right Qualified Code(s) : S91.301D - Unspecified open wound, right foot, subsequent encounter (10) Osteomyelitis Code(s): M86.9 - OSTEOMYELITIS, UNSPECIFIED Qualifiers: Osteomyelitis type: other Osteomyelitis location: foot Laterality: right Qualified Code(s): M86.8X7 - Other osteomyelitis, ankle and foot (11) Pericardial effusion Code(s): I31.3 - PERICARDIAL EFFUSION (NONINFLAMMATORY) (12) Status post peripheral artery angioplasty Code(s): Z98.62 - PERIPHERAL VASCULAR ANGIOPLASTY STATUS Assessment/Plan 09/12/2017 Echo: Moderate pericardial effusion, no tamponade, mildly dilated LV with severely decreased LV fxn, mild-mod dilated RV with severely decreased RV fxn, mod-severe MUKUL, mild MR, mild-mod TR, mild AR 1. Peripheral artery disease and gangrene right forefoot post right tibial revacularization post debridement of bone and soft tissue with transmetatarsal amputation and consequent open wound infection despite HBO2 and wound care treatments 2. ESRD on HD 3. Persistent AF with subtherapeutic INR 4. Dilated cardiomyopathy with LV systolic dysfunction s/p ICD 5. DM 6. HTN 7. Pericardial effusion 8. Hypothyroidism 9. History of colon CA s/p chemotherapy 10. Anemia of chronic kidney disease PLAN: 1. Continue Metoprolol 12.5 qd 2. Continue Entresto 24/26 bid and monitor renal function and electrolytes 3. HD as per Renal service, suspect pericardial effusion is due to uremic pericarditis and treated with HD, pericardiocentesis not indicated 4. Repeat echocardiography to reassess pericardial effusion after increased HD sessions 5. Hold coumadin pending possibile procedures 6. Empiric abx course per ID, wound care 7. Reassess vascular circulation for patency Nutrition Manager: Dr. Ghassan Durant
[2017-10-04] MEDS: WARFARIN NA 3 MG TABLET PO SCH (17:11)
--- NOTE | 2017-10-04 17:33 | EKG ---
Test Reason : Blood Pressure : / mmHG Vent. Rate : 065 BPM Atrial Rate : 063 BPM P-R Int : 000 ms QRS Dur : 174 ms QT Int : 532 ms P-R-T Axes : 000 -59 101 degrees QTc Int : 553 ms Ventricular-paced rhythm Biventricular pacemaker detected ABNORMAL ECG WHEN COMPARED WITH ECG OF 11-SEP-2017 10:37, PREMATURE VENTRICULAR COMPLEXES ARE NO LONGER PRESENT Confirmed by DAQUAN GOULD MD ([id number]) on 10/04/2017 5:32:48 PM Referred By: Confirmed By:DAQUAN GOULD MD
[2017-10-04] MEDS: SENNOSIDES 8.6MG TABLET (FP) PO SCH (21:46)
[2017-10-04] MEDS: SACUBITRIL/VALSARTAN 24 MG-26 MG TABLET PO SCH ×2 (21:49→21:58)
[2017-10-04] MEDS: MELATONIN 5 MG TABLETS PO PRN (21:49)
[2017-10-05] MEDS ORDERED: PIPERACILLIN/TAZOBACTAM 2.25 GM VIAL IVPB ONE ×3 (01:03→19:35)
[2017-10-05] MEDS ORDERED: DEXTROSE 5%-WATER - 50 ML IVPB ONE ×3 (01:03→19:36)
[2017-10-05] MEDS: PIPERACILLIN/TAZOB 2.25 GM 2.25 GM in DEXTROSE 5%-WATER - 50 ML IVPB SCH ×3 (01:48→20:08)
[2017-10-05] MEDS: ACETAMINOPHEN 325 MG TABLET (FP) PO PRN ×2 (04:38→15:07)
[2017-10-05] MEDS: oxyCODONE HCL 5 MG TABLET PO PRN ×2 (04:39→15:07)
[2017-10-05] MEDS: sitaGLIPtin PHOSPHATE 25 MG TABLET (FP) PO SCH (06:15)
[2017-10-05] MEDS: LEVOTHYROXINE NA 75 MCG TABLET (FP) PO SCH (06:15)
[2017-10-05] MEDS ORDERED: PT OWN MED DRAWER 7, Y5N ONE (09:08)
[2017-10-05] MEDS: CLOPIDOGREL BISULFATE 75 MG TABLET (FP) PO SCH (09:10)
[2017-10-05] MEDS: SENNOSIDES/DOCUSATE COMBO (SENNA PLUS) TABLET (UD) PO SCH (09:10)
[2017-10-05] MEDS: VITAMIN B COMP W-C 1 EA TABLET PO SCH (09:10)
[2017-10-05] MEDS: THIAMINE HCL 100 MG TABLET (FP) PO SCH (09:10)
[2017-10-05] MEDS: morphine SULFATE 10 MG/5 ML UNIT-DOSE CUP PO SCH ×2 (09:11→22:32)
[2017-10-05] MEDS: SACUBITRIL/VALSARTAN 24 MG-26 MG TABLET PO SCH ×2 (09:12→22:36)
[2017-10-05] MEDS: metoPROLOL SUCCINATE 25 MG TAB.SR.24H (FP) PO SCH (09:14)
[2017-10-05] MEDS: COLLAGENASE CLOSTRIDIUM HIST. 30 GRAMS TUBE TP SCH (09:21)
[2017-10-05] MEDS: diphenhydrAMINE HCL 25 MG CAPSULE (FP) PO PRN ×2 (09:21→22:31)
--- NOTE | 2017-10-05 10:50 | PN ---
Progress Note, Physician History of Present Illness: pt seen/ examined comfortable chart reviewed - Current Medication List Current Medications: Active Medications Acetaminophen (Tylenol -) 325 mg PO Q8H PRN PRN Reason: PAIN LEVEL 7 - 10 Last Admin: 10/05/17 04:38 Dose: 325 mg Albumin Human (Albumin Human 25%) 12.5 gm IVPB Q30M [facility] Clopidogrel Bisulfate (Plavix -) 75 mg PO DAILY [facility] Last Admin: 10/05/17 09:10 Dose: 75 mg Collagenase (Santyl -) 1 applic TP DAILY [facility]; Protocol Last Admin: 10/05/17 09:21 Dose: 1 applic Diphenhydramine HCl (Benadryl -) 25 mg PO Q8H PRN PRN Reason: ITCHING Last Admin: 10/05/17 09:21 Dose: 25 mg Epoetin Hector (Epogen -) 6,000 unit IVPUSH ONCE ONE Stop: 10/05/17 13:23 Piperacillin Sod/Tazobactam (Sod 2.25 gm/ Dextrose) 50 mls @ 100 mls/hr IVPB Q8H-IV [facility]; Protocol Last Admin: 10/05/17 09:10 Dose: 100 mls/hr Sodium Chloride (Normal Saline -) 250 mls @ 3,000 mls/hr IV PRN PRN PRN Reason: Hypotension during Dialysis Stop: 10/05/17 13:22 Levothyroxine Sodium (Synthroid -) 75 mcg PO DAILY@0700 [facility] Last Admin: 10/05/17 06:15 Dose: 75 mcg Melatonin (Melatonin) 5 mg PO HS PRN PRN Reason: INSOMNIA Last Admin: 10/04/17 21:49 Dose: 5 mg Metoprolol Succinate (Toprol Xl -) 12.5 mg PO DAILY [facility] Last Admin: 10/05/17 09:14 Dose: Not Given Morphine Sulfate (Morphine 10 Mg/5 Ml Liquid) 10 mg PO BID [facility] Last Admin: 10/05/17 09:11 Dose: 10 mg Multivit/Ca Carb/B Cmplx/FA/Prenat (Nephro-Fer -) 1 tablet PO DAILY [facility] Last Admin: 10/05/17 09:10 Dose: 1 tablet Oxycodone HCl (Roxicodone -) 5 mg PO Q8H PRN PRN Reason: PAIN LEVEL 7 - 10 Last Admin: 10/05/17 04:39 Dose: 5 mg Sacubitril/Valsartan (Entresto 24 Mg-26 Mg Tablet) 1 tab PO BID [facility] Last Admin: 10/05/17 09:12 Dose: 1 tab Senna (Senna -) 2 tab PO HS [facility] Last Admin: 10/04/17 21:46 Dose: 2 tab Senna/Docusate Sodium (Pericolace -) 1 tablet PO DAILY [facility] Last Admin: 10/05/17 09:10 Dose: 1 tablet Sitagliptin Phosphate (Januvia -) 25 mg PO 0700 [facility] Last Admin: 10/05/17 06:15 Dose: 25 mg Thiamine HCl (Vitamin B1 -) 100 mg PO DAILY [facility] Last Admin: 10/05/17 09:10 Dose: 100 mg Warfarin Sodium (Coumadin -) 6 mg PO DAILY@1800 [facility] Last Admin: 10/04/17 17:11 Dose: 6 mg - Objective Vital Signs: Vital Signs Temperature 97.8 F 10/05/17 09:00 Pulse Rate 67 10/05/17 09:00 Respiratory Rate 20 10/05/17 09:00 Blood Pressure 107/64 10/05/17 09:00 O2 Sat by Pulse Oximetry (%) 100 10/05/17 09:00 Constitutional: Yes: No Distress Neck: Yes: Supple Cardiovascular: Yes: Regular Rate and Rhythm Respiratory: Yes: Diminished Gastrointestinal: Yes: Soft Wound/Incision: Yes: Dressing Dry and Intact Neurological: Yes: Alert Psychiatric: Yes: Alert Labs: CBC, BMP 10/04/17 06:35 10/04/17 06:35 INR, PTT INR 2.83 (0.83-1.09) H 10/04/17 10:57 Problem List - Problems (1) Diabetic foot ulcer Code(s): E11.621 - TYPE 2 DIABETES MELLITUS WITH FOOT ULCER; L97.509 - NON- PRESSURE CHRONIC ULCER OTH PRT UNSP FOOT W UNSP SEVERITY (2) Amputated toe of right foot Code(s): Z89.421 - ACQUIRED ABSENCE OF OTHER RIGHT TOE(S) (3) Atrial fibrillation Code(s): I48.91 - UNSPECIFIED ATRIAL FIBRILLATION Qualifiers: Atrial fibrillation type: permanent Qualified Code(s): I48.2 - Chronic atrial fibrillation (4) Cardiomyopathy Code(s): I42.9 - CARDIOMYOPATHY, UNSPECIFIED Qualifiers: Cardiomyopathy type: unspecified Qualified Code(s): I42.9 - Cardiomyopathy , unspecified (5) Chronic anticoagulation Code(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
--- NOTE | 2017-10-05 11:29 | PN ---
Progress Note, Physician History of Present Illness: He denies chest pain, SOB or palpitations. He denies paroxysmal nocturnal dyspnea or orthopnea. He denies fever or chills. Slot Floorperson: Dr. Ghassan Durant - Current Medication List Current Medications: Active Medications Acetaminophen (Tylenol -) 325 mg PO Q8H PRN PRN Reason: PAIN LEVEL 7 - 10 Last Admin: 10/05/17 04:38 Dose: 325 mg Albumin Human (Albumin Human 25%) 12.5 gm IVPB Q30M [facility] Clopidogrel Bisulfate (Plavix -) 75 mg PO DAILY [facility] Last Admin: 10/05/17 09:10 Dose: 75 mg Collagenase (Santyl -) 1 applic TP DAILY [facility]; Protocol Last Admin: 10/05/17 09:21 Dose: 1 applic Diphenhydramine HCl (Benadryl -) 25 mg PO Q8H PRN PRN Reason: ITCHING Last Admin: 10/05/17 09:21 Dose: 25 mg Epoetin Hector (Epogen -) 6,000 unit IVPUSH ONCE ONE Stop: 10/05/17 13:23 Piperacillin Sod/Tazobactam (Sod 2.25 gm/ Dextrose) 50 mls @ 100 mls/hr IVPB Q8H-IV [facility]; Protocol Last Admin: 10/05/17 09:10 Dose: 100 mls/hr Sodium Chloride (Normal Saline -) 250 mls @ 3,000 mls/hr IV PRN PRN PRN Reason: Hypotension during Dialysis Stop: 10/05/17 13:22 Levothyroxine Sodium (Synthroid -) 75 mcg PO DAILY@0700 [facility] Last Admin: 10/05/17 06:15 Dose: 75 mcg Melatonin (Melatonin) 5 mg PO HS PRN PRN Reason: INSOMNIA Last Admin: 10/04/17 21:49 Dose: 5 mg Metoprolol Succinate (Toprol Xl -) 12.5 mg PO DAILY [facility] Last Admin: 10/05/17 09:14 Dose: Not Given Morphine Sulfate (Morphine 10 Mg/5 Ml Liquid) 10 mg PO BID [facility] Last Admin: 10/05/17 09:11 Dose: 10 mg Multivit/Ca Carb/B Cmplx/FA/Prenat (Nephro-Fer -) 1 tablet PO DAILY [facility] Last Admin: 10/05/17 09:10 Dose: 1 tablet Oxycodone HCl (Roxicodone -) 5 mg PO Q8H PRN PRN Reason: PAIN LEVEL 7 - 10 Last Admin: 10/05/17 04:39 Dose: 5 mg Sacubitril/Valsartan (Entresto 24 Mg-26 Mg Tablet) 1 tab PO BID [facility] Last Admin: 10/05/17 09:12 Dose: 1 tab Senna (Senna -) 2 tab PO HS [facility] Last Admin: 10/04/17 21:46 Dose: 2 tab Senna/Docusate Sodium (Pericolace -) 1 tablet PO DAILY [facility] Last Admin: 10/05/17 09:10 Dose: 1 tablet Sitagliptin Phosphate (Januvia -) 25 mg PO 0700 [facility] Last Admin: 10/05/17 06:15 Dose: 25 mg Thiamine HCl (Vitamin B1 -) 100 mg PO DAILY [facility] Last Admin: 10/05/17 09:10 Dose: 100 mg Warfarin Sodium (Coumadin -) 6 mg PO DAILY@1800 [facility] Last Admin: 10/04/17 17:11 Dose: 6 mg - Objective Vital Signs: Vital Signs Temperature 97.8 F 10/05/17 09:00 Pulse Rate 67 10/05/17 09:00 Respiratory Rate 20 10/05/17 09:00 Blood Pressure 107/64 10/05/17 09:00 O2 Sat by Pulse Oximetry (%) 100 10/05/17 09:00 Constitutional: Yes: No Distress, Calm Neck: Yes: Supple Cardiovascular: Yes: Regular Rate and Rhythm Respiratory: Yes: Regular, Diminished Gastrointestinal: Yes: Normal Bowel Sounds, Soft Edema: No Labs: CBC, BMP 10/04/17 06:35 10/04/17 06:35 INR, PTT INR 2.83 (0.83-1.09) H 10/04/17 10:57 Problem List - Problems (1) Atrial fibrillation Code(s): I48.91 - UNSPECIFIED ATRIAL FIBRILLATION Qualifiers: Atrial fibrillation type: permanent Qualified Code(s): I48.2 - Chronic atrial fibrillation (2) Cardiomyopathy Code(s): I42.9 - CARDIOMYOPATHY, UNSPECIFIED Qualifiers: Cardiomyopathy type: unspecified Qualified Code(s): I42.9 - Cardiomyopathy , unspecified (3) Chronic anticoagulation Code(s): Z79.01 - 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) USE OF 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 (4) 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 Code(s): E11.9 - TYPE 2 DIABETES MELLITUS WITHOUT COMPLICATIONS Qualifiers: 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 type: type 2 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 alf insulin use: without alf use 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 complication status: without complication Qualified Code(s): E11.9 - Type 2 diabetes mellitus without complications (5) ESRD (end stage renal disease) Code(s): N18.6 - END STAGE RENAL DISEASE (6) HTN (hypertension) Code(s): I10 - ESSENTIAL (PRIMARY) HYPERTENSION Qualifiers: Hypertension type: essential hypertension Qualified Code(s): I10 - Essential (primary) hypertension (7) Hypothyroid Code(s): E03.9 - HYPOTHYROIDISM, UNSPECIFIED Qualifiers: Hypothyroidism type: unspecified Qualified Code(s): E03.9 - Hypothyroidism , unspecified (8) ICD (implantable cardioverter-defibrillator) in place Code(s): Z95.810 - PRESENCE OF AUTOMATIC (IMPLANTABLE) CARDIAC DEFIBRILLATOR (9) Open wound of foot Code(s): S91.309A - UNSPECIFIED OPEN WOUND, UNSPECIFIED FOOT, INITIAL ENCOUNTER Qualifiers: Encounter type: subsequent encounter Laterality: right Qualified Code(s) : S91.301D - Unspecified open wound, right foot, subsequent encounter (10) Osteomyelitis Code(s): M86.9 - OSTEOMYELITIS, UNSPECIFIED Qualifiers: Osteomyelitis type: other Osteomyelitis location: foot Laterality: right Qualified Code(s): M86.8X7 - Other osteomyelitis, ankle and foot (11) Pericardial effusion Code(s): I31.3 - PERICARDIAL EFFUSION (NONINFLAMMATORY) (12) Status post peripheral artery angioplasty Code(s): Z98.62 - PERIPHERAL VASCULAR ANGIOPLASTY STATUS Assessment/Plan 09/12/2017 Echo: Moderate pericardial effusion, no tamponade, mildly dilated LV with severely decreased LV fxn, mild-mod dilated RV with severely decreased RV fxn, mod-severe MUKUL, mild MR, mild-mod TR, mild AR 1. Peripheral artery disease and gangrene right forefoot post right tibial revacularization post debridement of bone and soft tissue with transmetatarsal amputation and consequent open wound infection despite HBO2 and wound care treatments 2. ESRD on HD 3. Persistent AF with therapeutic INR 4. Dilated cardiomyopathy with LV systolic dysfunction s/p ICD 5. DM 6. HTN 7. Pericardial effusion 8. Hypothyroidism 9. History of colon CA s/p chemotherapy 10. Anemia of chronic kidney disease PLAN: 1. Continue Metoprolol 12.5 qd 2. Continue Entresto 24/ bid and monitor renal function and electrolytes 3. HD as per Renal service, suspect pericardial effusion is due to uremic pericarditis and treated with HD, pericardiocentesis not indicated 4. Repeat echocardiography to reassess pericardial effusion after increased HD sessions 5. Hold coumadin and Plavix pending possibile procedures 6. Empiric abx course per ID, wound care 7. Reassess vascular circulation for patency Slot Floorperson: Dr. Ghassan Durant
--- NOTE | 2017-10-05 14:10 | PN ---
Progress Note, Physician History of Present Illness: feeling better leg swelling improving had duplex of the lower ext awaiting results - Current Medication List Current Medications: Active Medications Acetaminophen (Tylenol -) 325 mg PO Q8H PRN PRN Reason: PAIN LEVEL 7 - 10 Last Admin: 10/05/17 04:38 Dose: 325 mg Albumin Human (Albumin Human 25%) 12.5 gm IVPB Q30M [facility] Clopidogrel Bisulfate (Plavix -) 75 mg PO DAILY [facility] Last Admin: 10/05/17 09:10 Dose: 75 mg Collagenase (Santyl -) 1 applic TP DAILY [facility]; Protocol Last Admin: 10/05/17 09:21 Dose: 1 applic Diphenhydramine HCl (Benadryl -) 25 mg PO Q8H PRN PRN Reason: ITCHING Last Admin: 10/05/17 09:21 Dose: 25 mg Epoetin Hector (Epogen -) 6,000 unit IVPUSH ONCE ONE Stop: 10/05/17 13:23 Piperacillin Sod/Tazobactam (Sod 2.25 gm/ Dextrose) 50 mls @ 100 mls/hr IVPB Q8H-IV [facility]; Protocol Last Admin: 10/05/17 09:10 Dose: 100 mls/hr Sodium Chloride (Normal Saline -) 250 mls @ 3,000 mls/hr IV PRN PRN PRN Reason: Hypotension during Dialysis Stop: 10/05/17 13:22 Levothyroxine Sodium (Synthroid -) 75 mcg PO DAILY@0700 [facility] Last Admin: 10/05/17 06:15 Dose: 75 mcg Melatonin (Melatonin) 5 mg PO HS PRN PRN Reason: INSOMNIA Last Admin: 10/04/17 21:49 Dose: 5 mg Metoprolol Succinate (Toprol Xl -) 12.5 mg PO DAILY [facility] Last Admin: 10/05/17 09:14 Dose: Not Given Morphine Sulfate (Morphine 10 Mg/5 Ml Liquid) 10 mg PO BID [facility] Last Admin: 10/05/17 09:11 Dose: 10 mg Multivit/Ca Carb/B Cmplx/FA/Prenat (Nephro-Fer -) 1 tablet PO DAILY [facility] Last Admin: 10/05/17 09:10 Dose: 1 tablet Oxycodone HCl (Roxicodone -) 5 mg PO Q8H PRN PRN Reason: PAIN LEVEL 7 - 10 Last Admin: 10/05/17 04:39 Dose: 5 mg Sacubitril/Valsartan (Entresto 24 Mg-26 Mg Tablet) 1 tab PO BID [facility] Last Admin: 10/05/17 09:12 Dose: 1 tab Senna (Senna -) 2 tab PO HS [facility] Last Admin: 10/04/17 21:46 Dose: 2 tab Senna/Docusate Sodium (Pericolace -) 1 tablet PO DAILY [facility] Last Admin: 10/05/17 09:10 Dose: 1 tablet Sitagliptin Phosphate (Januvia -) 25 mg PO 0700 [facility] Last Admin: 10/05/17 06:15 Dose: 25 mg Thiamine HCl (Vitamin B1 -) 100 mg PO DAILY [facility] Last Admin: 10/05/17 09:10 Dose: 100 mg Warfarin Sodium (Coumadin -) 6 mg PO DAILY@1800 [facility] Last Admin: 10/04/17 17:11 Dose: 6 mg - Objective Vital Signs: Vital Signs Temperature 97.8 F 10/05/17 09:00 Pulse Rate 67 10/05/17 09:00 Respiratory Rate 20 10/05/17 09:00 Blood Pressure 107/64 10/05/17 09:00 O2 Sat by Pulse Oximetry (%) 100 10/05/17 09:00 Constitutional: Yes: No Distress, Calm Cardiovascular: Yes: Regular Rate and Rhythm Respiratory: Yes: Regular, CTA Bilaterally Gastrointestinal: Yes: Normal Bowel Sounds, Soft Musculoskeletal: Yes: Other Extremities: Yes: Other (rt leg swollen improving) Wound/Incision: Yes: Dressing Dry and Intact Neurological: Yes: Alert, Oriented Psychiatric: Yes: Alert, Oriented Labs: CBC, BMP 10/04/17 06:35 10/04/17 06:35 INR, PTT INR 2.83 (0.83-1.09) H 10/04/17 10:57 Assessment/Plan Problem List - Problems (1) Diabetic foot ulcer Code(s): E11.621 - TYPE 2 DIABETES MELLITUS WITH FOOT ULCER; L97.509 - NON- PRESSURE CHRONIC ULCER OTH PRT UNSP FOOT W UNSP SEVERITY (2) Amputated toe of right foot Code(s): Z89.421 - ACQUIRED ABSENCE OF OTHER RIGHT TOE(S) (3) Cellulitis of right lower extremity Code(s): L03.115 - CELLULITIS OF RIGHT LOWER LIMB (4) Anemia Code(s): D64.9 - ANEMIA, UNSPECIFIED Qualifiers: Anemia type: due to chronic kidney disease (5) Atrial fibrillation Code(s): I48.91 - UNSPECIFIED ATRIAL FIBRILLATION Qualifiers: Atrial fibrillation type: permanent Qualified Code(s): I48.2 - Chronic atrial fibrillation (6) Chronic anticoagulation Code(s): Z79.01 - DETENTION (CURRENT) USE OF 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 (7) 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 Code(s): E11.9 - TYPE 2 DIABETES MELLITUS WITHOUT COMPLICATIONS Qualifiers: 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 type: type 2 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 shelter insulin use: without terminal make up operator use 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 complication status: without complication Qualified Code(s): E11.9 - Type 2 diabetes mellitus without complications (8) ESRD (end stage renal disease) Code(s): N18.6 - END STAGE RENAL DISEASE (9) HTN (hypertension) Code(s): I10 - ESSENTIAL (PRIMARY) HYPERTENSION Qualifiers: Hypertension type: essential hypertension Qualified Code(s): I10 - Essential (primary) hypertension (10) Hypothyroid Code(s): E03.9 - HYPOTHYROIDISM, UNSPECIFIED Qualifiers: Hypothyroidism type: unspecified Qualified Code(s): E03.9 - Hypothyroidism , unspecified Assessment/Plan This is a 72 y/o man Admitted for Cellulitis of the Right Foot, Diabetic Wound Infection for further evaluation of their emergent condition. plan continue abx will await for cx await for all results wound care rest as per the team
--- NOTE | 2017-10-05 14:25 | PN ---
Progress Note, Physician History of Present Illness: Pt seen and examined at bedside. He is awake and alert. He denies shortness of breath. - Current Medication List Current Medications: Active Medications Acetaminophen (Tylenol -) 325 mg PO Q8H PRN PRN Reason: PAIN LEVEL 7 - 10 Last Admin: 10/05/17 04:38 Dose: 325 mg Albumin Human (Albumin Human 25%) 12.5 gm IVPB Q30M [facility] Clopidogrel Bisulfate (Plavix -) 75 mg PO DAILY [facility] Last Admin: 10/05/17 09:10 Dose: 75 mg Collagenase (Santyl -) 1 applic TP DAILY [facility]; Protocol Last Admin: 10/05/17 09:21 Dose: 1 applic Diphenhydramine HCl (Benadryl -) 25 mg PO Q8H PRN PRN Reason: ITCHING Last Admin: 10/05/17 09:21 Dose: 25 mg Epoetin Hector (Epogen -) 6,000 unit IVPUSH ONCE ONE Stop: 10/05/17 13:23 Piperacillin Sod/Tazobactam (Sod 2.25 gm/ Dextrose) 50 mls @ 100 mls/hr IVPB Q8H-[facility]; Protocol Last Admin: 10/05/17 09:10 Dose: 100 mls/hr Sodium Chloride (Normal Saline -) 250 mls @ 3,000 mls/hr IV PRN PRN PRN Reason: Hypotension during Dialysis Stop: 10/05/17 13:22 Levothyroxine Sodium (Synthroid -) 75 mcg PO DAILY@0700 [facility] Last Admin: 10/05/17 06:15 Dose: 75 mcg Melatonin (Melatonin) 5 mg PO HS PRN PRN Reason: INSOMNIA Last Admin: 10/04/17 21:49 Dose: 5 mg Metoprolol Succinate (Toprol Xl -) 12.5 mg PO DAILY [facility] Last Admin: 10/05/17 09:14 Dose: Not Given Morphine Sulfate (Morphine 10 Mg/5 Ml Liquid) 10 mg PO BID [facility] Last Admin: 10/05/17 09:11 Dose: 10 mg Multivit/Ca Carb/B Cmplx/FA/Prenat (Nephro-Fer -) 1 tablet PO DAILY [facility] Last Admin: 10/05/17 09:10 Dose: 1 tablet Oxycodone HCl (Roxicodone -) 5 mg PO Q8H PRN PRN Reason: PAIN LEVEL 7 - 10 Last Admin: 10/05/17 04:39 Dose: 5 mg Sacubitril/Valsartan (Entresto 24 Mg-26 Mg Tablet) 1 tab PO BID [facility] Last Admin: 10/05/17 09:12 Dose: 1 tab Senna (Senna -) 2 tab PO HS [facility] Last Admin: 10/04/17 21:46 Dose: 2 tab Senna/Docusate Sodium (Pericolace -) 1 tablet PO DAILY [facility] Last Admin: 10/05/17 09:10 Dose: 1 tablet Sitagliptin Phosphate (Januvia -) 25 mg PO 0700 [facility] Last Admin: 10/05/17 06:15 Dose: 25 mg Thiamine HCl (Vitamin B1 -) 100 mg PO DAILY [facility] Last Admin: 10/05/17 09:10 Dose: 100 mg Warfarin Sodium (Coumadin -) 6 mg PO DAILY@1800 [facility] Last Admin: 10/04/17 17:11 Dose: 6 mg - Objective Vital Signs: Vital Signs Temperature 97.8 F 10/05/17 09:00 Pulse Rate 67 10/05/17 09:00 Respiratory Rate 20 10/05/17 09:00 Blood Pressure 107/64 10/05/17 09:00 O2 Sat by Pulse Oximetry (%) 100 10/05/17 09:00 Constitutional: Yes: Calm Eyes: Yes: Conjunctiva Clear HENT: Yes: Atraumatic Neck: Yes: Supple Cardiovascular: Yes: S1, S2 Respiratory: Yes: CTA Bilaterally Gastrointestinal: Yes: Normal Bowel Sounds, Soft Genitourinary: Yes: WNL Edema: Yes Edema: LLE: Trace, RLE: Trace Wound/Incision: Yes: Dressing Dry and Intact Neurological: Yes: Oriented Psychiatric: Yes: Oriented Labs: CBC, BMP 10/04/17 06:35 10/04/17 06:35 INR, PTT INR 2.83 (0.83-1.09) H 10/04/17 10:57 Problem List - Problems (1) Cellulitis Code(s): L03.90 - CELLULITIS, UNSPECIFIED Qualifiers: Site of cellulitis: extremity Site of cellulitis of extremity: lower extremity Laterality: right Qualified Code(s): L03.115 - Cellulitis of right lower limb (2) Diabetic foot ulcer Code(s): E11.621 - TYPE 2 DIABETES MELLITUS WITH FOOT ULCER; L97.509 - NON- PRESSURE CHRONIC ULCER OTH PRT UNSP FOOT W UNSP SEVERITY (3) Anemia Code(s): D64.9 - ANEMIA, UNSPECIFIED Qualifiers: Anemia type: due to chronic kidney disease (4) Atrial fibrillation Code(s): I48.91 - UNSPECIFIED ATRIAL FIBRILLATION Qualifiers: Atrial fibrillation type: permanent Qualified Code(s): I48.2 - Chronic atrial fibrillation (5) ESRD (end stage renal disease) Code(s): N18.6 - END STAGE RENAL DISEASE Assessment/Plan Current Medications Generic Name Dose Route Start Last Admin Trade Name Freq PRN Reason Stop Dose Admin Acetaminophen 325 mg 10/04/17 05:13 10/05/17 04:38 Tylenol - PO 325 mg Q8H PRN Administration PAIN LEVEL 7 - 10 Albumin Human 12.5 gm 10/04/17 13:30 Albumin Human 25% IVPB Q30M [facility] Clopidogrel Bisulfate 75 mg 10/04/17 10:00 10/05/17 09:10 Plavix - PO 75 mg DAILY [facility] Administration Collagenase 1 applic 10/04/17 10:00 10/05/17 09:21 Santyl - TP 1 applic DAILY [facility] Administration Protocol Diphenhydramine HCl 25 mg 10/04/17 11:51 10/05/17 09:21 Benadryl - PO 25 mg Q8H PRN Administration ITCHING Epoetin Hector 6,000 unit 10/05/17 13:22 Epogen - IVPUSH 10/05/17 13:23 ONCE ONE Piperacillin Sod/Tazobactam 50 mls @ 100 mls/hr 10/04/17 12:30 10/05/17 09:10 Sod 2.25 gm/ Dextrose IVPB 100 mls/hr Q8H-IV [facility] Administration Protocol Sodium Chloride 250 mls @ 3,000 mls/hr 10/04/17 13:22 Normal Saline - IV 10/05/17 13:22 PRN PRN Hypotension during Dialysis Levothyroxine Sodium 75 mcg 10/04/17 07:00 10/05/17 06:15 Synthroid - PO 75 mcg DAILY@0700 [facility] Administration Melatonin 5 mg 10/03/17 22:00 10/04/17 21:49 Melatonin PO 5 mg HS PRN Administration INSOMNIA Metoprolol Succinate 12.5 mg 10/04/17 10:00 10/05/17 09:14 Toprol Xl - PO Not Given DAILY [facility] Morphine Sulfate 10 mg 10/04/17 10:00 10/05/17 09:11 Morphine 10 Mg/5 Ml Liquid PO 10 mg BID [facility] Administration Multivit/Ca Carb/B Cmplx/FA/Prenat 1 tablet 10/04/17 10:00 10/05/17 09:10 Nephro-Fer - PO 1 tablet DAILY [facility] Administration Oxycodone HCl 5 mg 10/04/17 05:13 10/05/17 04:39 Roxicodone - PO 5 mg Q8H PRN Administration PAIN LEVEL 7 - 10 Sacubitril/Valsartan 1 tab 10/04/17 22:00 10/05/17 09:12 Entresto 24 Mg-26 Mg Tablet PO 1 tab BID [facility] Administration Senna 2 tab 10/03/17 22:00 10/04/17 21:46 Senna - PO 2 tab HS [facility] Administration Senna/Docusate Sodium 1 tablet 10/04/17 10:00 10/05/17 09:10 Pericolace - PO 1 tablet DAILY [facility] Administration Sitagliptin Phosphate 25 mg 10/04/17 07:00 10/05/17 06:15 Januvia - PO 25 mg 0700 [facility] Administration Thiamine HCl 100 mg 10/04/17 10:00 10/05/17 09:10 Vitamin B1 - PO 100 mg DAILY [facility] Administration Warfarin Sodium 6 mg 10/04/17 18:00 10/04/17 17:11 Coumadin - PO 6 mg DAILY@1800 [facility] Administration Impression 1. ESRD 2. hx pericardial effusion 3. hx pneumopericardium 4. hypothyroidism 5. a-fib 6. hypotension 7. hx of colon cancer 8. CHF 9. DM 10. hx of PE 11. CAD 12. foot ulcer Plan - HD today - abx per ID - cardio input appreciated - follow echo - cont wound care - will follow Dr Conklin
[2017-10-05] MEDS ORDERED: SODIUM CHLORIDE 250 ML IV PRN (16:00)
[2017-10-05] MEDS ORDERED: EPOETIN ALFA 3,000 UNIT/1 ML ML IVPUSH ONE (16:00)
[2017-10-05] MEDS ORDERED: EPOETIN ALFA 2,000 UNIT/1 ML VIAL IVPUSH ONE (16:00)
[2017-10-05 16:12] LABS: HEMATOCRIT 33.2 % (35.4-49); MCHC 33.2 g/dl (32.0-35.9); MEAN CELL VOLUME 90.2 fl (80-96); MEAN PLT VOLUME 9.1 fl (7.5-11.1); PLATELET COUNT 225 K/MM3 (134-434); RBC 3.68 M/mm3 (4.00-5.60); WHITE BLOOD COUNT 3.9 K/mm3 (4.0-10.0)
[2017-10-05 16:39] LABS: ANION GAP 15 MMOL/L (8-16); BLOOD UREA NITROGEN 25 mg/dL (7-18); CALCIUM 8.8 mg/dL (8.5-10.1); CHLORIDE 89 mmol/L (98-107); CO2 23 mmol/L (21-32); GLUCOSE,RANDOM 115 mg/dL (74-106); POTASSIUM 3.2 mmol/L (3.5-5.1); SODIUM 127 mmol/L (136-145)
--- NOTE | 2017-10-05 16:52 | ECHO ---
Name: BETTYE VALERIO Exam:Adult Echocardiogram Study Date: 10/05/2017 08:24 AM Age: 72 yrs Reason For Study: Effusion Height: 70 in Weight: 216 lb BSA: 2.2 m2 MMode/2D Measurements & Calculations IVSd: 1.4 cm Ao root diam: 3.7 cm LVIDd: 5.7 cm LA dimension: 5.0 cm LVIDs: 4.9 cm LVPWd: 1.3 cm EDV(Teich): 160.6 ml ESV(Teich): 111.0 ml Doppler Measurements & Calculations MV E max mitchell: 113.0 cm/sec AI P1/2t: 431.6 msec MV A max mitchell: 23.8 cm/sec MV E/A: 4.8 MV dec time: 0.61 sec AI max mitchell: 295.9 cm/sec MR max mitchell: 317.6 cm/sec AI max P.0 mmHg MR max P.4 mmHg AI dec slope: 200.8 cm/sec2 TR max mitchell: 307.1 cm/sec Med Peak E' Mitchell: 4.5 cm/sec TR max P.7 mmHg Med E/e': 25.3 Lat Peak E' Mitchell: 5.9 cm/sec Lat E/e': 19.2 PI Vmax: 224.0 cm/sec Procedure The study was technically adequate with some images being suboptimal in quality. Left Ventricle The left ventricle is moderately dilated. Left ventricular systolic function is severely reduced. Floyd hnially limited study with varying apperance of LVEF among images, however it appears to be in the range of 3 0-35%. There is severe global hypokinesis of the left ventricle. Right Ventricle There is a pacemaker lead in the right ventricle. RV is dilated. The right ventricular systolic funct ion is severely reduced. Atria The left atrium is moderately dilated. There is a catheter/pacemaker lead seen in the right atrium. Mitral Valve There is moderate mitral annular calcification. The mitral valve is grossly normal. There is mild katharina ral regurgitation. Tricuspid Valve The tricuspid valve is not well visualized, but is grossly normal. There is moderate tricuspid regurg itation. There is at least mild pulmonary hypertension present (peak TR gradient is 35 mmHg, no RAP could be e stimated from suboptimal IVC images). Aortic Valve The aortic valve is trileaflet. No hemodynamically significant valvular aortic stenosis. Mild aortic regurgitation. Pulmonic Valve The pulmonic valve is not well seen, but is grossly normal. Mild pulmonic valvular regurgitation. Great Vessels The aortic root is normal size. Pericardium/Pleura Circumferential, [id number], pericardial effusion, maximal dimension 2-2.5 cm adjacent to LV. There is no diastolic collapse of the RV free wall seen. Mitral inflow velocity measurements during respiratory cycle phases were not measured, hence cannot confidently comment on tamponade physiology on this study. Interpretation Summary The study was technically adequate with some images being suboptimal in quality. The left ventricle is moderately dilated. Technially limited study with varying apperance of LVEF among images, however it appears to be in the range of 30-35%. There is severe global hypokinesis of the left ventricle. There is a pacemaker lead in the right ventricle. RV is dilated. The right ventricular systolic function is severely reduced. The left atrium is moderately dilated. There is a catheter/pacemaker lead seen in the right atrium. There is mild mitral regurgitation. There is moderate tricuspid regurgitation. There is at least mild pulmonary hypertension present (peak TR gradient is 35 mmHg, no RAP could be e stimated from suboptimal IVC images). Mild aortic regurgitation. Circumferential, [id number], pericardial effusion, maximal dimension 2-2.5 cm adjacent to LV. There is no diastolic collapse of the RV free wall seen. Mitral inflow velocity measurements during respiratory cycle phases were not measured, hence cannot confidently comment on tamponade physiology on this study. These findings were communicated to Dr. Plasencia, the ordering librarian head, at the time of this report. MD Gabriel Unger 10/05/2017 04:51 PM
[2017-10-05] MEDS: WARFARIN NA 3 MG TABLET PO SCH (20:08)
[2017-10-05] MEDS: SENNOSIDES 8.6MG TABLET (FP) PO SCH (22:31)
[2017-10-05] MEDS: MELATONIN 5 MG TABLETS PO PRN (22:32)
[2017-10-06] MEDS ORDERED: DEXTROSE 5%-WATER - 50 ML IVPB ONE ×2 (01:17→17:00)
[2017-10-06] MEDS ORDERED: PIPERACILLIN/TAZOBACTAM 2.25 GM VIAL IVPB ONE ×2 (01:17→17:00)
[2017-10-06] MEDS: PIPERACILLIN/TAZOB 2.25 GM 2.25 GM in DEXTROSE 5%-WATER - 50 ML IVPB SCH ×3 (02:25→17:04)
[2017-10-06] MEDS: ACETAMINOPHEN 325 MG TABLET (FP) PO PRN ×2 (02:25→16:13)
[2017-10-06] MEDS: oxyCODONE HCL 5 MG TABLET PO PRN ×2 (02:25→16:13)
[2017-10-06] MEDS: LEVOTHYROXINE NA 75 MCG TABLET (FP) PO SCH (06:09)
[2017-10-06] MEDS: sitaGLIPtin PHOSPHATE 25 MG TABLET (FP) PO SCH (06:11)
[2017-10-06] MEDS ORDERED: PT OWN MED DRAWER 7, Y5N ONE (10:05)
[2017-10-06] MEDS: CLOPIDOGREL BISULFATE 75 MG TABLET (FP) PO SCH (10:08)
[2017-10-06] MEDS: SENNOSIDES/DOCUSATE COMBO (SENNA PLUS) TABLET (UD) PO SCH (10:08)
[2017-10-06] MEDS: THIAMINE HCL 100 MG TABLET (FP) PO SCH (10:08)
[2017-10-06] MEDS: VITAMIN B COMP W-C 1 EA TABLET PO SCH (10:08)
[2017-10-06] MEDS: diphenhydrAMINE HCL 25 MG CAPSULE (FP) PO PRN ×2 (10:08→21:38)
[2017-10-06] MEDS: morphine SULFATE 10 MG/5 ML UNIT-DOSE CUP PO SCH ×2 (10:09→21:36)
[2017-10-06] MEDS: SACUBITRIL/VALSARTAN 24 MG-26 MG TABLET PO SCH ×2 (10:09→21:37)
[2017-10-06] MEDS: metoPROLOL SUCCINATE 25 MG TAB.SR.24H (FP) PO SCH ×2 (10:10→10:20)
[2017-10-06] MEDS: COLLAGENASE CLOSTRIDIUM HIST. 30 GRAMS TUBE TP SCH (10:16)
--- NOTE | 2017-10-06 10:24 | PN ---
Progress Note (short form) - Note Progress Note: Vital Signs Temp 98.0 F 10/06/17 06:07 Pulse 66 10/06/17 06:07 Resp 18 10/06/17 06:07 BP 100/59 10/06/17 06:07 Pulse Ox 97 10/05/17 21:00 Intake & Output 10/05/17 10/05/17 10/06/17 11:59 23:59 11:59 Intake Total 550 50 Balance 550 50 Weight 220 lb 1.6 oz 221 lb 4 oz Intake: IVPB 100 Oral 450 50 Other: Voiding Method Toilet Toilet # Unmeasured Voids Void 0 Bowel Movement No Yes: 1 Weight Measurement Method Chair Scale Standing Scale Active Medications Acetaminophen (Tylenol -) 325 mg PO Q8H PRN PRN Reason: PAIN LEVEL 7 - 10 Last Admin: 10/06/17 02:25 Dose: 325 mg Clopidogrel Bisulfate (Plavix -) 75 mg PO DAILY [facility] Last Admin: 10/06/17 10:08 Dose: 75 mg Collagenase (Santyl -) 1 applic TP DAILY [facility]; Protocol Last Admin: 10/05/17 09:21 Dose: 1 applic Diphenhydramine HCl (Benadryl -) 25 mg PO Q8H PRN PRN Reason: ITCHING Last Admin: 10/06/17 10:08 Dose: 25 mg Piperacillin Sod/Tazobactam (Sod 2.25 gm/ Dextrose) 50 mls @ 100 mls/hr IVPB Q8H-IV [facility]; Protocol Last Admin: 10/06/17 02:25 Dose: 100 mls/hr Levothyroxine Sodium (Synthroid -) 75 mcg PO DAILY@0700 [facility] Last Admin: 10/06/17 06:09 Dose: 75 mcg Melatonin (Melatonin) 5 mg PO HS PRN PRN Reason: INSOMNIA Last Admin: 10/05/17 22:32 Dose: 5 mg Metoprolol Succinate (Toprol Xl -) 12.5 mg PO DAILY [facility] Last Admin: 10/06/17 10:20 Dose: Not Given Morphine Sulfate (Morphine 10 Mg/5 Ml Liquid) 10 mg PO BID [facility] Last Admin: 10/06/17 10:09 Dose: 10 mg Multivit/Ca Carb/B Cmplx/FA/Prenat (Nephro-Fer -) 1 tablet PO DAILY [facility] Last Admin: 10/06/17 10:08 Dose: 1 tablet Oxycodone HCl (Roxicodone -) 5 mg PO Q8H PRN PRN Reason: PAIN LEVEL 7 - 10 Last Admin: 10/06/17 02:25 Dose: 5 mg Sacubitril/Valsartan (Entresto 24 Mg-26 Mg Tablet) 1 tab PO BID [facility] Last Admin: 10/06/17 10:09 Dose: 1 tab Senna (Senna -) 2 tab PO HS [facility] Last Admin: 10/05/17 22:31 Dose: 2 tab Senna/Docusate Sodium (Pericolace -) 1 tablet PO DAILY [facility] Last Admin: 10/06/17 10:08 Dose: 1 tablet Sitagliptin Phosphate (Januvia -) 25 mg PO 0700 [facility] Last Admin: 10/06/17 06:11 Dose: 25 mg Thiamine HCl (Vitamin B1 -) 100 mg PO DAILY [facility] Last Admin: 10/06/17 10:08 Dose: 100 mg Warfarin Sodium (Coumadin -) 6 mg PO DAILY@1800 [facility] Last Admin: 10/05/17 20:08 Dose: 6 mg CBC, BMP 10/05/17 15:30 10/05/17 15:30 Microbiology 10/03/17 15:43 Blood Culture - Preliminary Blood - Peripheral Venous NO GROWTH OBTAINED AFTER 48 HOURS, INCUBATION TO CONTINUE FOR 3 DAYS. 10/04/17 10:00 Gram Stain - Final Foot - Rt Transmetatarsal Amp. Site Wound Culture - Preliminary Diphtheroid/Corynebacterium Diphtheroid/Corynebacterium#2 10/03/17 15:39 Blood Culture - Preliminary Blood - Peripheral Venous NO GROWTH OBTAINED AFTER 48 HOURS, INCUBATION TO CONTINUE FOR 3 DAYS.
--- NOTE | 2017-10-06 10:26 | PN ---
Progress Note (short form) - Note Progress Note: comfortable. no new issues Vital Signs Temp 98.0 F 10/06/17 06:07 Pulse 67 10/06/17 10:24 Resp 19 10/06/17 10:24 BP 101/60 10/06/17 10:24 Pulse Ox 97 10/05/17 21:00 Intake & Output 10/05/17 10/05/17 10/06/17 11:59 23:59 11:59 Intake Total 550 50 Balance 550 50 Weight 220 lb 1.6 oz 221 lb 4 oz Intake: IVPB 100 Oral 450 50 Other: Voiding Method Toilet Toilet # Unmeasured Voids Void 0 Bowel Movement No Yes: 1 Weight Measurement Method Chair Scale Standing Scale Active Medications Acetaminophen (Tylenol -) 325 mg PO Q8H PRN PRN Reason: PAIN LEVEL 7 - 10 Last Admin: 10/06/17 02:25 Dose: 325 mg Clopidogrel Bisulfate (Plavix -) 75 mg PO DAILY [facility] Last Admin: 10/06/17 10:08 Dose: 75 mg Collagenase (Santyl -) 1 applic TP DAILY [facility]; Protocol Last Admin: 10/05/17 09:21 Dose: 1 applic Diphenhydramine HCl (Benadryl -) 25 mg PO Q8H PRN PRN Reason: ITCHING Last Admin: 10/06/17 10:08 Dose: 25 mg Piperacillin Sod/Tazobactam (Sod 2.25 gm/ Dextrose) 50 mls @ 100 mls/hr IVPB Q8H-IV [facility]; Protocol Last Admin: 10/06/17 02:25 Dose: 100 mls/hr Insulin Aspart (Novolog Vial Sliding Scale -) 1 vial SQ BIDAC [facility]; Protocol Levothyroxine Sodium (Synthroid -) 75 mcg PO DAILY@0700 [facility] Last Admin: 10/06/17 06:09 Dose: 75 mcg Melatonin (Melatonin) 5 mg PO HS PRN PRN Reason: INSOMNIA Last Admin: 10/05/17 22:32 Dose: 5 mg Metoprolol Succinate (Toprol Xl -) 12.5 mg PO DAILY [facility] Last Admin: 10/06/17 10:20 Dose: Not Given Morphine Sulfate (Morphine 10 Mg/5 Ml Liquid) 10 mg PO BID [facility] Last Admin: 10/06/17 10:09 Dose: 10 mg Multivit/Ca Carb/B Cmplx/FA/Prenat (Nephro-Fer -) 1 tablet PO DAILY [facility] Last Admin: 10/06/17 10:08 Dose: 1 tablet Oxycodone HCl (Roxicodone -) 5 mg PO Q8H PRN PRN Reason: PAIN LEVEL 7 - 10 Last Admin: 10/06/17 02:25 Dose: 5 mg Sacubitril/Valsartan (Entresto 24 Mg-26 Mg Tablet) 1 tab PO BID [facility] Last Admin: 10/06/17 10:09 Dose: 1 tab Senna (Senna -) 2 tab PO HS [facility] Last Admin: 10/05/17 22:31 Dose: 2 tab Senna/Docusate Sodium (Pericolace -) 1 tablet PO DAILY [facility] Last Admin: 10/06/17 10:08 Dose: 1 tablet Thiamine HCl (Vitamin B1 -) 100 mg PO DAILY [facility] Last Admin: 10/06/17 10:08 Dose: 100 mg Warfarin Sodium (Coumadin -) 6 mg PO DAILY@1800 [facility] Last Admin: 10/05/17 20:08 Dose: 6 mg CBC, BMP 10/05/17 15:30 10/05/17 15:30 Microbiology 10/03/17 15:43 Blood Culture - Preliminary Blood - Peripheral Venous NO GROWTH OBTAINED AFTER 48 HOURS, INCUBATION TO CONTINUE FOR 3 DAYS. 10/04/17 10:00 Gram Stain - Final Foot - Rt Transmetatarsal Amp. Site Wound Culture - Preliminary Diphtheroid/Corynebacterium Diphtheroid/Corynebacterium#2 10/03/17 15:39 Blood Culture - Preliminary Blood - Peripheral Venous NO GROWTH OBTAINED AFTER 48 HOURS, INCUBATION TO CONTINUE FOR 3 DAYS. Physical neck: Yes: WNL, Supple, Trachea Midline Cardiovascular: Yes: Pulse regular, S1, S2 Respiratory: Yes: WNL, Regular, CTA Bilaterally, On Nasal O2 Gastrointestinal: Yes: Normal Bowel Sounds, Soft Edema: Yes dressing + A/P Right foor cellulitis DM CHF S/P right posterior tibial artery re-vascularization and subsequent foot amputation digit-2-5 afib PE Colon ca- s/p resection peripheral neuropathy ESRD on HD antibiotics per ID rate controlled with BB, A/C per inr BGM monitoring will follow
[2017-10-06] MEDS: ALBUMIN HUMAN 25% 12.5 GM/50 ML VIAL IVPB SCH ×3 (11:41→11:43)
--- NOTE | 2017-10-06 13:41 | PN ---
Progress Note, Physician History of Present Illness: feeling better leg swelling improving dressing removed wound looked at - Current Medication List Current Medications: Active Medications Acetaminophen (Tylenol -) 325 mg PO Q8H PRN PRN Reason: PAIN LEVEL 7 - 10 Last Admin: 10/06/17 02:25 Dose: 325 mg Clopidogrel Bisulfate (Plavix -) 75 mg PO DAILY [facility] Last Admin: 10/06/17 10:08 Dose: 75 mg Collagenase (Santyl -) 1 applic TP DAILY [facility]; Protocol Last Admin: 10/05/17 09:21 Dose: 1 applic Diphenhydramine HCl (Benadryl -) 25 mg PO Q8H PRN PRN Reason: ITCHING Last Admin: 10/06/17 10:08 Dose: 25 mg Piperacillin Sod/Tazobactam (Sod 2.25 gm/ Dextrose) 50 mls @ 100 mls/hr IVPB Q8H-IV [facility]; Protocol Last Admin: 10/06/17 11:23 Dose: 100 mls/hr Insulin Aspart (Novolog Vial Sliding Scale -) 1 vial SQ BIDAC [facility]; Protocol Levothyroxine Sodium (Synthroid -) 75 mcg PO DAILY@0700 [facility] Last Admin: 10/06/17 06:09 Dose: 75 mcg Melatonin (Melatonin) 5 mg PO HS PRN PRN Reason: INSOMNIA Last Admin: 10/05/17 22:32 Dose: 5 mg Metoprolol Succinate (Toprol Xl -) 12.5 mg PO DAILY [facility] Last Admin: 10/06/17 10:20 Dose: Not Given Morphine Sulfate (Morphine 10 Mg/5 Ml Liquid) 10 mg PO BID [facility] Last Admin: 10/06/17 10:09 Dose: 10 mg Multivit/Ca Carb/B Cmplx/FA/Prenat (Nephro-Fer -) 1 tablet PO DAILY [facility] Last Admin: 10/06/17 10:08 Dose: 1 tablet Oxycodone HCl (Roxicodone -) 5 mg PO Q8H PRN PRN Reason: PAIN LEVEL 7 - 10 Last Admin: 10/06/17 02:25 Dose: 5 mg Sacubitril/Valsartan (Entresto 24 Mg-26 Mg Tablet) 1 tab PO BID [facility] Last Admin: 10/06/17 10:09 Dose: 1 tab Senna (Senna -) 2 tab PO HS [facility] Last Admin: 10/05/17 22:31 Dose: 2 tab Senna/Docusate Sodium (Pericolace -) 1 tablet PO DAILY [facility] Last Admin: 10/06/17 10:08 Dose: 1 tablet Thiamine HCl (Vitamin B1 -) 100 mg PO DAILY [facility] Last Admin: 10/06/17 10:08 Dose: 100 mg Warfarin Sodium (Coumadin -) 6 mg PO DAILY@1800 [facility] Last Admin: 10/05/17 20:08 Dose: 6 mg - Objective Vital Signs: Vital Signs Temperature 98.0 F 10/06/17 06:07 Pulse Rate 67 10/06/17 10:24 Respiratory Rate 19 10/06/17 10:24 Blood Pressure 101/60 10/06/17 10:24 O2 Sat by Pulse Oximetry (%) 97 10/06/17 09:00 Constitutional: Yes: No Distress, Calm Cardiovascular: Yes: Regular Rate and Rhythm Respiratory: Yes: Regular, CTA Bilaterally Gastrointestinal: Yes: Normal Bowel Sounds, Soft Musculoskeletal: Yes: WNL Extremities: Yes: Other Wound/Incision: Yes: Dressing Removed, Other Neurological: Yes: Alert, Oriented Psychiatric: Yes: Alert, Oriented Labs: CBC, BMP 10/05/17 15:30 10/05/17 15:30 INR, PTT INR 2.83 (0.83-1.09) H 10/04/17 10:57 Assessment/Plan Problem List - Problems (1) Diabetic foot ulcer Code(s): E11.621 - TYPE 2 DIABETES MELLITUS WITH FOOT ULCER; L97.509 - NON- PRESSURE CHRONIC ULCER OTH PRT UNSP FOOT W UNSP SEVERITY (2) Amputated toe of right foot Code(s): Z89.421 - ACQUIRED ABSENCE OF OTHER RIGHT TOE(S) (3) Cellulitis of right lower extremity Code(s): L03.115 - CELLULITIS OF RIGHT LOWER LIMB (4) Anemia Code(s): D64.9 - ANEMIA, UNSPECIFIED Qualifiers: Anemia type: due to chronic kidney disease (5) Atrial fibrillation Code(s): I48.91 - UNSPECIFIED ATRIAL FIBRILLATION Qualifiers: Atrial fibrillation type: permanent Qualified Code(s): I48.2 - Chronic atrial fibrillation (6) Chronic anticoagulation Code(s): Z79.01 - ORIENTATION & MOBILITY SPECIALIST (CURRENT) USE OF 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 (7) 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 Code(s): E11.9 - TYPE 2 DIABETES MELLITUS WITHOUT COMPLICATIONS Qualifiers: 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 type: type 2 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 termite inspector insulin use: without skilled nursing use 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 complication status: without complication Qualified Code(s): E11.9 - Type 2 diabetes mellitus without complications (8) ESRD (end stage renal disease) Code(s): N18.6 - END STAGE RENAL DISEASE (9) HTN (hypertension) Code(s): I10 - ESSENTIAL (PRIMARY) HYPERTENSION Qualifiers: Hypertension type: essential hypertension Qualified Code(s): I10 - Essential (primary) hypertension (10) Hypothyroid Code(s): E03.9 - HYPOTHYROIDISM, UNSPECIFIED Qualifiers: Hypothyroidism type: unspecified Qualified Code(s): E03.9 - Hypothyroidism , unspecified Assessment/Plan This is a 72 y/o man Admitted for Cellulitis of the Right Foot, Diabetic Wound Infection for further evaluation of their emergent condition. plan continue abx cx report noted await for final plan once final plan is done will decide about abx
[2017-10-06] MEDS ORDERED: SODIUM CHLORIDE 250 ML IV PRN (14:12)
--- NOTE | 2017-10-06 14:12 | PN ---
Progress Note, Physician History of Present Illness: Pt seen and examined at bedside. He tolerated HD yesterday. He denies shortness of breath. - Current Medication List Current Medications: Active Medications Acetaminophen (Tylenol -) 325 mg PO Q8H PRN PRN Reason: PAIN LEVEL 7 - 10 Last Admin: 10/06/17 02:25 Dose: 325 mg Clopidogrel Bisulfate (Plavix -) 75 mg PO DAILY [facility] Last Admin: 10/06/17 10:08 Dose: 75 mg Collagenase (Santyl -) 1 applic TP DAILY [facility]; Protocol Last Admin: 10/05/17 09:21 Dose: 1 applic Diphenhydramine HCl (Benadryl -) 25 mg PO Q8H PRN PRN Reason: ITCHING Last Admin: 10/06/17 10:08 Dose: 25 mg Piperacillin Sod/Tazobactam (Sod 2.25 gm/ Dextrose) 50 mls @ 100 mls/hr IVPB Q8H-IV [facility]; Protocol Last Admin: 10/06/17 11:23 Dose: 100 mls/hr Insulin Aspart (Novolog Vial Sliding Scale -) 1 vial SQ BIDAC [facility]; Protocol Levothyroxine Sodium (Synthroid -) 75 mcg PO DAILY@0700 [facility] Last Admin: 10/06/17 06:09 Dose: 75 mcg Melatonin (Melatonin) 5 mg PO HS PRN PRN Reason: INSOMNIA Last Admin: 10/05/17 22:32 Dose: 5 mg Metoprolol Succinate (Toprol Xl -) 12.5 mg PO DAILY [facility] Last Admin: 10/06/17 10:20 Dose: Not Given Morphine Sulfate (Morphine 10 Mg/5 Ml Liquid) 10 mg PO BID [facility] Last Admin: 10/06/17 10:09 Dose: 10 mg Multivit/Ca Carb/B Cmplx/FA/Prenat (Nephro-Fer -) 1 tablet PO DAILY [facility] Last Admin: 10/06/17 10:08 Dose: 1 tablet Oxycodone HCl (Roxicodone -) 5 mg PO Q8H PRN PRN Reason: PAIN LEVEL 7 - 10 Last Admin: 10/06/17 02:25 Dose: 5 mg Sacubitril/Valsartan (Entresto 24 Mg-26 Mg Tablet) 1 tab PO BID [facility] Last Admin: 10/06/17 10:09 Dose: 1 tab Senna (Senna -) 2 tab PO HS [facility] Last Admin: 10/05/17 22:31 Dose: 2 tab Senna/Docusate Sodium (Pericolace -) 1 tablet PO DAILY [facility] Last Admin: 10/06/17 10:08 Dose: 1 tablet Thiamine HCl (Vitamin B1 -) 100 mg PO DAILY [facility] Last Admin: 10/06/17 10:08 Dose: 100 mg Warfarin Sodium (Coumadin -) 6 mg PO DAILY@1800 [facility] Last Admin: 10/05/17 20:08 Dose: 6 mg - Objective Vital Signs: Vital Signs Temperature 98.0 F 10/06/17 06:07 Pulse Rate 67 10/06/17 10:24 Respiratory Rate 19 10/06/17 10:24 Blood Pressure 101/60 10/06/17 10:24 O2 Sat by Pulse Oximetry (%) 97 10/06/17 09:00 Constitutional: Yes: Calm Eyes: Yes: Conjunctiva Clear HENT: Yes: Atraumatic Neck: Yes: Supple Cardiovascular: Yes: S1, S2 Respiratory: Yes: CTA Bilaterally Gastrointestinal: Yes: Soft Genitourinary: Yes: WNL Musculoskeletal: Yes: WNL Edema: No Neurological: Yes: Oriented Psychiatric: Yes: Oriented Labs: CBC, BMP 10/05/17 15:30 10/05/17 15:30 INR, PTT INR 2.83 (0.83-1.09) H 10/04/17 10:57 Problem List - Problems (1) Cellulitis Code(s): L03.90 - CELLULITIS, UNSPECIFIED Qualifiers: Site of cellulitis: extremity Site of cellulitis of extremity: lower extremity Laterality: right Qualified Code(s): L03.115 - Cellulitis of right lower limb (2) Diabetic foot ulcer Code(s): E11.621 - TYPE 2 DIABETES MELLITUS WITH FOOT ULCER; L97.509 - NON- PRESSURE CHRONIC ULCER OTH PRT UNSP FOOT W UNSP SEVERITY (3) Anemia Code(s): D64.9 - ANEMIA, UNSPECIFIED Qualifiers: Anemia type: due to chronic kidney disease (4) Atrial fibrillation Code(s): I48.91 - UNSPECIFIED ATRIAL FIBRILLATION Qualifiers: Atrial fibrillation type: permanent Qualified Code(s): I48.2 - Chronic atrial fibrillation (5) ESRD (end stage renal disease) Code(s): N18.6 - END STAGE RENAL DISEASE Assessment/Plan Current Medications Generic Name Dose Route Start Last Admin Trade Name Freq PRN Reason Stop Dose Admin Acetaminophen 325 mg 10/04/17 05:13 10/06/17 02:25 Tylenol - PO 325 mg Q8H PRN Administration PAIN LEVEL 7 - 10 Clopidogrel Bisulfate 75 mg 10/04/17 10:00 10/06/17 10:08 Plavix - PO 75 mg DAILY [facility] Administration Collagenase 1 applic 10/04/17 10:00 10/05/17 09:21 Santyl - TP 1 applic DAILY [facility] Administration Protocol Diphenhydramine HCl 25 mg 10/04/17 11:51 10/06/17 10:08 Benadryl - PO 25 mg Q8H PRN Administration ITCHING Piperacillin Sod/Tazobactam 50 mls @ 100 mls/hr 10/04/17 12:30 10/06/17 11:23 Sod 2.25 gm/ Dextrose IVPB 100 mls/hr Q8H-IV [facility] Administration Protocol Insulin Aspart 1 vial 10/06/17 16:30 Novolog Vial Sliding Scale - SQ BIDAC [facility] Protocol Levothyroxine Sodium 75 mcg 10/04/17 07:00 10/06/17 06:09 Synthroid - PO 75 mcg DAILY@0700 [facility] Administration Melatonin 5 mg 10/03/17 22:00 10/05/17 22:32 Melatonin PO 5 mg HS PRN Administration INSOMNIA Metoprolol Succinate 12.5 mg 10/04/17 10:00 10/06/17 10:20 Toprol Xl - PO Not Given DAILY [facility] Morphine Sulfate 10 mg 10/04/17 10:00 10/06/17 10:09 Morphine 10 Mg/5 Ml Liquid PO 10 mg BID [facility] Administration Multivit/Ca Carb/B Cmplx/FA/Prenat 1 tablet 10/04/17 10:00 10/06/17 10:08 Nephro-Fer - PO 1 tablet DAILY [facility] Administration Oxycodone HCl 5 mg 10/04/17 05:13 10/06/17 02:25 Roxicodone - PO 5 mg Q8H PRN Administration PAIN LEVEL 7 - 10 Sacubitril/Valsartan 1 tab 10/04/17 22:00 10/06/17 10:09 Entresto 24 Mg-26 Mg Tablet PO 1 tab BID [facility] Administration Senna 2 tab 10/03/17 22:00 10/05/17 22:31 Senna - PO 2 tab HS [facility] Administration Senna/Docusate Sodium 1 tablet 10/04/17 10:00 10/06/17 10:08 Pericolace - PO 1 tablet DAILY [facility] Administration Thiamine HCl 100 mg 10/04/17 10:00 10/06/17 10:08 Vitamin B1 - PO 100 mg DAILY [facility] Administration Warfarin Sodium 6 mg 10/04/17 18:00 10/05/17 20:08 Coumadin - PO 6 mg DAILY@1800 [facility] Administration Impression 1. ESRD 2. hx pericardial effusion 3. hx pneumopericardium 4. hypothyroidism 5. a-fib 6. hypotension 7. hx of colon cancer 8. CHF 9. DM 10. hx of PE 11. CAD 12. foot ulcer Plan - HD in am, orders written - echo report reviewed, cardiology follow up - podiatry/vascular follow up - monitor bp - wound care - will follow Dr Conklin
--- NOTE | 2017-10-06 15:25 | PN ---
Progress Note, Physician History of Present Illness: He denies chest pain, SOB or palpitations. He denies paroxysmal nocturnal dyspnea or orthopnea. He denies fever or chills. Discovery Manager: Dr. Ghassan Durant - Current Medication List Current Medications: Active Medications Acetaminophen (Tylenol -) 325 mg PO Q8H PRN PRN Reason: PAIN LEVEL 7 - 10 Last Admin: 10/06/17 02:25 Dose: 325 mg Albumin Human (Albumin Human 25%) 12.5 gm IVPB Q30M [facility] Clopidogrel Bisulfate (Plavix -) 75 mg PO DAILY [facility] Last Admin: 10/06/17 10:08 Dose: 75 mg Collagenase (Santyl -) 1 applic TP DAILY [facility]; Protocol Last Admin: 10/05/17 09:21 Dose: 1 applic Diphenhydramine HCl (Benadryl -) 25 mg PO Q8H PRN PRN Reason: ITCHING Last Admin: 10/06/17 10:08 Dose: 25 mg Epoetin Hector (Epogen -) 5,000 unit IVPUSH ONCE ONE Stop: 10/06/17 15:16 Piperacillin Sod/Tazobactam (Sod 2.25 gm/ Dextrose) 50 mls @ 100 mls/hr IVPB Q8H-IV [facility]; Protocol Last Admin: 10/06/17 11:23 Dose: 100 mls/hr Sodium Chloride (Normal Saline -) 250 mls @ 3,000 mls/hr IV PRN PRN PRN Reason: Hypotension during Dialysis Insulin Aspart (Novolog Vial Sliding Scale -) 1 vial SQ BIDAC [facility]; Protocol Levothyroxine Sodium (Synthroid -) 75 mcg PO DAILY@0700 [facility] Last Admin: 10/06/17 06:09 Dose: 75 mcg Melatonin (Melatonin) 5 mg PO HS PRN PRN Reason: INSOMNIA Last Admin: 10/05/17 22:32 Dose: 5 mg Metoprolol Succinate (Toprol Xl -) 12.5 mg PO DAILY [facility] Last Admin: 10/06/17 10:20 Dose: Not Given Morphine Sulfate (Morphine 10 Mg/5 Ml Liquid) 10 mg PO BID [facility] Last Admin: 10/06/17 10:09 Dose: 10 mg Multivit/Ca Carb/B Cmplx/FA/Prenat (Nephro-Fer -) 1 tablet PO DAILY [facility] Last Admin: 10/06/17 10:08 Dose: 1 tablet Oxycodone HCl (Roxicodone -) 5 mg PO Q8H PRN PRN Reason: PAIN LEVEL 7 - 10 Last Admin: 10/06/17 02:25 Dose: 5 mg Sacubitril/Valsartan (Entresto 24 Mg-26 Mg Tablet) 1 tab PO BID [facility] Last Admin: 10/06/17 10:09 Dose: 1 tab Senna (Senna -) 2 tab PO HS [facility] Last Admin: 10/05/17 22:31 Dose: 2 tab Senna/Docusate Sodium (Pericolace -) 1 tablet PO DAILY [facility] Last Admin: 10/06/17 10:08 Dose: 1 tablet Thiamine HCl (Vitamin B1 -) 100 mg PO DAILY [facility] Last Admin: 10/06/17 10:08 Dose: 100 mg Warfarin Sodium (Coumadin -) 6 mg PO DAILY@1800 [facility] Last Admin: 10/05/17 20:08 Dose: 6 mg - Objective Vital Signs: Vital Signs Temperature 97.9 F 10/06/17 14:39 Pulse Rate 66 10/06/17 14:39 Respiratory Rate 18 10/06/17 14:39 Blood Pressure 101/61 10/06/17 14:39 O2 Sat by Pulse Oximetry (%) 97 10/06/17 09:00 Constitutional: Yes: No Distress, Calm, Thin Neck: Yes: Supple Cardiovascular: Yes: Regular Rate and Rhythm Respiratory: Yes: Regular, Diminished Gastrointestinal: Yes: Normal Bowel Sounds, Soft Edema: Yes Edema: LLE: 1+, RLE: 1+ Wound/Incision: Yes: Dressing Dry and Intact Labs: CBC, BMP 10/05/17 15:30 10/05/17 15:30 INR, PTT INR 2.83 (0.83-1.09) H 10/04/17 10:57 Problem List - Problems (1) Atrial fibrillation Code(s): I48.91 - UNSPECIFIED ATRIAL FIBRILLATION Qualifiers: Atrial fibrillation type: permanent Qualified Code(s): I48.2 - Chronic atrial fibrillation (2) Cardiomyopathy Code(s): I42.9 - CARDIOMYOPATHY, UNSPECIFIED Qualifiers: Cardiomyopathy type: unspecified Qualified Code(s): I42.9 - Cardiomyopathy , unspecified (3) Chronic anticoagulation Code(s): Z79.01 - 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 ADMINISTRATOR (CURRENT) USE OF 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 (4) 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 Code(s): E11.9 - TYPE 2 DIABETES MELLITUS WITHOUT COMPLICATIONS Qualifiers: 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 type: type 2 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 terminal operations supervisor insulin use: without jail use 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 complication status: without complication Qualified Code(s): E11.9 - Type 2 diabetes mellitus without complications (5) ESRD (end stage renal disease) Code(s): N18.6 - END STAGE RENAL DISEASE (6) HTN (hypertension) Code(s): I10 - ESSENTIAL (PRIMARY) HYPERTENSION Qualifiers: Hypertension type: essential hypertension Qualified Code(s): I10 - Essential (primary) hypertension (7) Hypothyroid Code(s): E03.9 - HYPOTHYROIDISM, UNSPECIFIED Qualifiers: Hypothyroidism type: unspecified Qualified Code(s): E03.9 - Hypothyroidism , unspecified (8) ICD (implantable cardioverter-defibrillator) in place Code(s): Z95.810 - PRESENCE OF AUTOMATIC (IMPLANTABLE) CARDIAC DEFIBRILLATOR (9) Open wound of foot Code(s): S91.309A - UNSPECIFIED OPEN WOUND, UNSPECIFIED FOOT, INITIAL ENCOUNTER Qualifiers: Encounter type: subsequent encounter Laterality: right Qualified Code(s) : S91.301D - Unspecified open wound, right foot, subsequent encounter (10) Osteomyelitis Code(s): M86.9 - OSTEOMYELITIS, UNSPECIFIED Qualifiers: Osteomyelitis type: other Osteomyelitis location: foot Laterality: right Qualified Code(s): M86.8X7 - Other osteomyelitis, ankle and foot (11) Pericardial effusion Code(s): I31.3 - PERICARDIAL EFFUSION (NONINFLAMMATORY) (12) Status post peripheral artery angioplasty Code(s): Z98.62 - PERIPHERAL VASCULAR ANGIOPLASTY STATUS Assessment/Plan 09/12/2017 Echo: Moderate pericardial effusion, no tamponade, mildly dilated LV with severely decreased LV fxn, mild-mod dilated RV with severely decreased RV fxn, mod-severe MUKUL, mild MR, mild-mod TR, mild AR 10/05/2017 Echo: Moderately dilated with severely decreased LV fxn, RV dilated with severely decreased RV fxn, mod LAE, mild MR, mod TR, mild AR, mod pericardial effusion similar to previous 1. Peripheral artery disease and gangrene right forefoot post right tibial revacularization post debridement of bone and soft tissue with transmetatarsal amputation and consequent open wound infection despite HBO2 and wound care treatments 2. ESRD on HD 3. Persistent AF with therapeutic INR 4. Dilated cardiomyopathy with LV systolic dysfunction s/p ICD 5. DM 6. HTN 7. Pericardial effusion 8. Hypothyroidism 9. History of colon CA s/p chemotherapy 10. Anemia of chronic kidney disease PLAN: 1. Continue Metoprolol 12.5 qd 2. Continue Entresto 24/26 bid and monitor renal function and electrolytes 3. HD as per Renal service, suspect pericardial effusion is due to uremic pericarditis and treated with HD, pericardiocentesis not indicated 4. Repeat echocardiography shows stability of pericardial effusion 5. Resumed coumadin and Plavix 6. Empiric abx course per ID, wound care 7. Reassess vascular circulation for patency Discovery Manager: Dr. Ghassan Durant
--- NOTE | 2017-10-06 16:23 | PN ---
Progress Note (short form) - Note Progress Note: Patient seen 10/05/17 in dialysis. VSS, Tmax 97.9 +necrotic patches with granulation noted right foot, -mal odor, -cellulitis, + decreased edema, wbc=3.9 10/05, pending wound culture 10/05 necrosis infected ampuation site Patient had study of right leg done earlier today. Dressing change done in dialysis unit. Awaiting possible re-vascularization by Dr. Cope. will follow.
--- NOTE | 2017-10-06 16:28 | PN ---
Progress Note (short form) - Note Progress Note: FUV right foot today. Pain has improved. +necrotic patches with granulation noted right foot, -mal odor, -cellulitis, + decreased edema, wound culture corynebacterium, necrosis infected ampuation site Awaiting vascular recommendations for revision of TMA. Patient states Dr. Cope states cannot save big toe and needs a revision. Will follow. Will vac until revision clearance given by vascular. STANTON [place]. Discussed with Dr. Marleni LUBIN will continue zosyn.
[2017-10-06] MEDS: WARFARIN NA 3 MG TABLET PO SCH (17:04)
[2017-10-06] MEDS: INSULIN SLIDING SCALE (NOVOLOG) 1 VIAL SQ SCH (17:16)
[2017-10-06] MEDS: SENNOSIDES 8.6MG TABLET (FP) PO SCH (21:35)
[2017-10-06] MEDS: MELATONIN 5 MG TABLETS PO PRN (21:38)
[2017-10-07] MEDS ORDERED: DEXTROSE 5%-WATER - 50 ML IVPB ONE ×4 (01:27→18:01)
[2017-10-07] MEDS ORDERED: PIPERACILLIN/TAZOBACTAM 2.25 GM VIAL IVPB ONE ×4 (01:27→18:01)
[2017-10-07] MEDS: PIPERACILLIN/TAZOB 2.25 GM 2.25 GM in DEXTROSE 5%-WATER - 50 ML IVPB SCH ×3 (01:47→18:08)
[2017-10-07] MEDS: oxyCODONE HCL 5 MG TABLET PO PRN ×2 (02:30→16:16)
[2017-10-07] MEDS: ACETAMINOPHEN 325 MG TABLET (FP) PO PRN (02:31)
[2017-10-07] MEDS: INSULIN SLIDING SCALE (NOVOLOG) 1 VIAL SQ SCH ×2 (06:03→17:55)
[2017-10-07] MEDS: LEVOTHYROXINE NA 75 MCG TABLET (FP) PO SCH (06:04)
[2017-10-07 08:09] LABS: PROTHROMBIN TIME (PATIENT) 35.7 SEC (9.7-13.0)
[2017-10-07 08:18] LABS: INR 3.16 (0.83-1.09)
[2017-10-07] MEDS: morphine SULFATE 10 MG/5 ML UNIT-DOSE CUP PO SCH ×2 (09:29→21:19)
[2017-10-07] MEDS: diphenhydrAMINE HCL 25 MG CAPSULE (FP) PO PRN ×2 (09:33→21:18)
[2017-10-07 10:32] LABS: HEMATOCRIT 32.7 % (35.4-49); HEMOGLOBIN 10.3 GM/dL (11.7-16.9); MCH 28.6 pg (25.7-33.7); MCHC 31.5 g/dl (32.0-35.9); MEAN CELL VOLUME 90.8 fl (80-96); MEAN PLT VOLUME 8.8 fl (7.5-11.1); PLATELET COUNT 200 K/MM3 (134-434); WHITE BLOOD COUNT 3.9 K/mm3 (4.0-10.0)
[2017-10-07] MEDS ORDERED: SODIUM CHLORIDE 250 ML IV PRN (10:55)
--- NOTE | 2017-10-07 10:57 | PN ---
Progress Note (short form) - Note Progress Note: Chief Complaint: Events noted, notes reviewed, denies any chest pain or dyspnea History of Present Illness: Seen and examined. Events noted, notes reviewed, denies any chest pain or dyspnea Echocardiography dated 09/12/2017 revealed moderate pericardial effusion, no tamponade, mildly dilated LV with severely decreased LV fxn, mild-mod dilated RV with severely decreased RV fxn, mod-severe MUKUL, mild MR, mild-mod TR, mild AR Echocardiography dated 10/05/2017 revealed moderately dilated with severely decreased LV fxn, RV dilated with severely decreased RV fxn, mod LAE, mild MR, mod TR, mild AR, mod pericardial effusion similar to previous Echocardiography dated 08/11/2017 revealed mildly dilated LV with severely decreased LV function, mild-moderately dilated RV with moderately decreased RV function, moderate LAE, mild MR, TR, AR, moderate pericardial effusion with evidence of cardiac tamponade Lexiscan MPI study dated 11/11/2016 revealed large HI involving apex, inferior wall, infero-lateral small area mild royce-infarct ischemia mid anterior wall, dilated severely decreased LVEF 26, RV dilated - Current Medication List Current Medications Acetaminophen (Tylenol -) 325 mg PO Q8H PRN PRN Reason: PAIN LEVEL 7 - 10 Last Admin: 10/07/17 02:31 Dose: 325 mg Albumin Human (Albumin Human 25%) 12.5 gm IVPB Q30M [facility] Stop: 10/07/17 12:31 Clopidogrel Bisulfate (Plavix -) 75 mg PO DAILY [facility] Last Admin: 10/06/17 10:08 Dose: 75 mg Collagenase (Santyl -) 1 applic TP DAILY [facility]; Protocol Last Admin: 10/06/17 10:16 Dose: 1 applic Diphenhydramine HCl (Benadryl -) 25 mg PO Q8H PRN PRN Reason: ITCHING Last Admin: 10/07/17 09:33 Dose: 25 mg Piperacillin Sod/Tazobactam (Sod 2.25 gm/ Dextrose) 50 mls @ 100 mls/hr IVPB Q8H-IV [facility]; Protocol Last Admin: 10/07/17 01:47 Dose: 100 mls/hr Sodium Chloride (Normal Saline -) 250 mls @ 3,000 mls/hr IV PRN PRN PRN Reason: Hypotension during Dialysis Insulin Aspart (Novolog Vial Sliding Scale -) 1 vial SQ BIDAC [facility]; Protocol Last Admin: 10/07/17 06:03 Dose: Not Given Levothyroxine Sodium (Synthroid -) 75 mcg PO DAILY@0700 [facility] Last Admin: 10/07/17 06:04 Dose: 75 mcg Melatonin (Melatonin) 5 mg PO HS PRN PRN Reason: INSOMNIA Last Admin: 10/06/17 21:38 Dose: 5 mg Metoprolol Succinate (Toprol Xl -) 12.5 mg PO DAILY [facility] Last Admin: 10/06/17 10:20 Dose: Not Given Morphine Sulfate (Morphine 10 Mg/5 Ml Liquid) 10 mg PO BID [facility] Last Admin: 10/07/17 09:29 Dose: 10 mg Multivit/Ca Carb/B Cmplx/FA/Prenat (Nephro-Fer -) 1 tablet PO DAILY [facility] Last Admin: 10/06/17 10:08 Dose: 1 tablet Oxycodone HCl (Roxicodone -) 5 mg PO Q8H PRN PRN Reason: PAIN LEVEL 7 - 10 Last Admin: 10/07/17 02:30 Dose: 5 mg Sacubitril/Valsartan (Entresto 24 Mg-26 Mg Tablet) 1 tab PO BID [facility] Last Admin: 10/06/17 21:37 Dose: 1 tab Senna (Senna -) 2 tab PO [facility] Last Admin: 10/06/17 21:35 Dose: 2 tab Senna/Docusate Sodium (Pericolace -) 1 tablet PO DAILY [facility] Last Admin: 10/06/17 10:08 Dose: 1 tablet Thiamine HCl (Vitamin B1 -) 100 mg PO DAILY [facility] Last Admin: 10/06/17 10:08 Dose: 100 mg Warfarin Sodium (Coumadin -) 6 mg PO DAILY@1800 [facility] Last Admin: 10/06/17 17:04 Dose: 6 mg - Objective Vital Signs: Last Vital Signs Temp Pulse Resp BP Pulse Ox 97.6 F 62 18 123/67 97 10/07/17 05:51 10/07/17 10:30 10/07/17 10:30 10/07/17 10:30 10/06/17 21:00 Intake & Output 10/04/17 10/05/17 10/06/17 10/07/17 23:59 23:59 23:59 23:59 Intake Total 200 550 550 50 Balance 200 550 550 50 Weight 216 lb 14.4 oz 220 lb 1.6 oz 221 lb 4 oz 225 lb 11.2 oz HEENT: Atraumatic Neck: Supple Negative JVD Cardiovascular: S1 S2 Regular Rate and Rhythm Respiratory: CTA Bilaterally Gastrointestinal: Soft benign Normal Bowel Sounds Ext: Trace Edema Dressing in Situ Labs: CBC, BMP 10/07/17 10:15 10/07/17 10:15 Hepatic Panel Total Bilirubin 0.9 mg/dL (0.2-1.0) 10/03/17 15:39 AST 32 U/L (15-37) D 10/03/17 15:39 ALT 12 U/L (12-78) D 10/03/17 15:39 Alkaline Phosphatase 111 U/L (45-117) D 10/03/17 15:39 Albumin 2.5 g/dl (3.4-5.0) L 10/03/17 15:39 INR, PTT INR 3.16 (0.83-1.09) H 10/07/17 06:00 ASSESSMENT and PLAN: ASSESSMENT: 1. Peripheral artery disease and gangrene right forefoot post right tibial revacularization and debridement of bone and soft tissue with transmetatarsal amputation 2. Ischemic dilated cardiomyopathy with chronic class I-II NYHA classification LV failure, compensated/euvolemic, post prophylactic ICD implant 3. CAD post HI with evidence of demand ischemic injury angina pectoris, clinically stable 4. Persistent atrial fibrillation [id number] score of 3-4 on Coumadin 5. Pericardial effusion probably uremic pericarditis, moderate in severity/ unchanged 6. 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 7. PAD post intervention 8. Hypothyroidism 9. History of PTE 10. ESRD 11. History of colon cancer PLAN: 1. Antibiotics as per the primary team 2. HD as per renal service 3. Continue Coumadin as per INR with close monitoring of CBC 4. Continue Toprol XL and titrate as hemodynamics permit/tolerate 5. Continue Entresto and titrate as hemodynamics permit/tolerate Rafaela Aguilar MD
[2017-10-07 10:59] LABS: CHLORIDE 91 mmol/L (98-107); POTASSIUM 3.1 mmol/L (3.5-5.1); SODIUM 130 mmol/L (136-145)
[2017-10-07 11:13] LABS: ANION GAP 15 MMOL/L (8-16); BLOOD UREA NITROGEN 20 mg/dL (7-18); CALCIUM 9.1 mg/dL (8.5-10.1); CO2 24 mmol/L (21-32); CREATININE 6.4 mg/dL (0.7-1.3); GLUCOSE,RANDOM 95 mg/dL (74-106)
[2017-10-07] MEDS: ALBUMIN HUMAN 25% 12.5 GM/50 ML VIAL IVPB SCH ×4 (11:30→13:31)
--- NOTE | 2017-10-07 12:57 | PN ---
Progress Note (short form) - Note Progress Note: Pt seen in dialysis comfortable no complains all f/u noted Vital Signs Temp 97.6 F 10/07/17 05:51 Pulse 65 10/07/17 12:00 Resp 18 10/07/17 12:00 BP 105/70 10/07/17 12:00 Pulse Ox 97 10/06/17 21:00 Intake & Output 10/06/17 10/07/17 10/07/17 23:59 11:59 23:59 Intake Total 500 50 Balance 500 50 Weight 225 lb 11.2 oz Intake: IVPB 100 50 Oral 400 Other: Voiding Method Toilet Toilet Bowel Movement Yes: 1 Weight Measurement Method Chair Scale Active Medications Acetaminophen (Tylenol -) 325 mg PO Q8H PRN PRN Reason: PAIN LEVEL 7 - 10 Last Admin: 10/07/17 02:31 Dose: 325 mg Clopidogrel Bisulfate (Plavix -) 75 mg PO DAILY [facility] Last Admin: 10/06/17 10:08 Dose: 75 mg Collagenase (Santyl -) 1 applic TP DAILY [facility]; Protocol Last Admin: 10/06/17 10:16 Dose: 1 applic Diphenhydramine HCl (Benadryl -) 25 mg PO Q8H PRN PRN Reason: ITCHING Last Admin: 10/07/17 09:33 Dose: 25 mg Piperacillin Sod/Tazobactam (Sod 2.25 gm/ Dextrose) 50 mls @ 100 mls/hr IVPB Q8H-IV [facility]; Protocol Last Admin: 10/07/17 01:47 Dose: 100 mls/hr Sodium Chloride (Normal Saline -) 250 mls @ 3,000 mls/hr IV PRN PRN PRN Reason: Hypotension during Dialysis Insulin Aspart (Novolog Vial Sliding Scale -) 1 vial SQ BIDAC [facility]; Protocol Last Admin: 10/07/17 06:03 Dose: Not Given Levothyroxine Sodium (Synthroid -) 75 mcg PO DAILY@0700 [facility] Last Admin: 10/07/17 06:04 Dose: 75 mcg Melatonin (Melatonin) 5 mg PO HS PRN PRN Reason: INSOMNIA Last Admin: 10/06/17 21:38 Dose: 5 mg Metoprolol Succinate (Toprol Xl -) 12.5 mg PO DAILY [facility] Last Admin: 10/06/17 10:20 Dose: Not Given Morphine Sulfate (Morphine 10 Mg/5 Ml Liquid) 10 mg PO BID [facility] Last Admin: 10/07/17 09:29 Dose: 10 mg Multivit/Ca Carb/B Cmplx/FA/Prenat (Nephro-Fer -) 1 tablet PO DAILY [facility] Last Admin: 10/06/17 10:08 Dose: 1 tablet Oxycodone HCl (Roxicodone -) 5 mg PO Q8H PRN PRN Reason: PAIN LEVEL 7 - 10 Last Admin: 10/07/17 02:30 Dose: 5 mg Sacubitril/Valsartan (Entresto 24 Mg-26 Mg Tablet) 1 tab PO BID [facility] Last Admin: 10/06/17 21:37 Dose: 1 tab Senna (Senna -) 2 tab PO HS [facility] Last Admin: 10/06/17 21:35 Dose: 2 tab Senna/Docusate Sodium (Pericolace -) 1 tablet PO DAILY [facility] Last Admin: 10/06/17 10:08 Dose: 1 tablet Thiamine HCl (Vitamin B1 -) 100 mg PO DAILY [facility] Last Admin: 10/06/17 10:08 Dose: 100 mg Warfarin Sodium (Coumadin -) 6 mg PO DAILY@1800 [facility] Last Admin: 10/06/17 17:04 Dose: 6 mg CBC, BMP 10/07/17 10:15 10/07/17 10:15 Microbiology 10/03/17 15:43 Blood Culture - Preliminary Blood - Peripheral Venous NO GROWTH OBTAINED AFTER 72 HOURS, INCUBATION TO CONTINUE FOR 2 DAYS. 10/03/17 15:39 Blood Culture - Preliminary Blood - Peripheral Venous NO GROWTH OBTAINED AFTER 72 HOURS, INCUBATION TO CONTINUE FOR 2 DAYS. 10/04/17 10:00 Gram Stain - Final Foot - Rt Transmetatarsal Amp. Site Wound Culture - Final Diphtheroid/Corynebacterium Diphtheroid/Corynebacterium#2 INR, PTT INR 3.16 (0.83-1.09) H 10/07/17 06:00 Physical Alert/ awake. neck: Yes: WNL, Supple, Trachea Midline Cardiovascular: Yes: Pulse regular, S1, S2 Respiratory: Yes: WNL, Regular, CTA Bilaterally, On Nasal O2 Gastrointestinal: Yes: Normal Bowel Sounds, Soft Edema: Yes dressing + A/P Right foor cellulitis DM CHF S/P right posterior tibial artery re-vascularization and subsequent foot amputation digit-2-5 afib PE Colon ca- s/p resection peripheral neuropathy ESRD on HD antibiotics per ID rate controlled with BB, A/C per inr-- hold today BGM monitoring continue other meds vascular to follow will follow Problem List - Problems (1) Cellulitis Code(s): L03.90 - CELLULITIS, UNSPECIFIED Qualifiers: Site of cellulitis: extremity Site of cellulitis of extremity: lower extremity Laterality: right Qualified Code(s): L03.115 - Cellulitis of right lower limb (2) Diabetic foot ulcer Code(s): E11.621 - TYPE 2 DIABETES MELLITUS WITH FOOT ULCER; L97.509 - NON- PRESSURE CHRONIC ULCER OTH PRT UNSP FOOT W UNSP SEVERITY (3) Amputated toe of right foot Code(s): Z89.421 - ACQUIRED ABSENCE OF OTHER RIGHT TOE(S) (4) Atrial fibrillation Code(s): I48.91 - UNSPECIFIED ATRIAL FIBRILLATION Qualifiers: Atrial fibrillation type: permanent Qualified Code(s): I48.2 - Chronic atrial fibrillation (5) Cardiomyopathy Code(s): I42.9 - CARDIOMYOPATHY, UNSPECIFIED Qualifiers: Cardiomyopathy type: unspecified Qualified Code(s): I42.9 - Cardiomyopathy , unspecified (6) Chronic anticoagulation Code(s): 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
[2017-10-07] MEDS: EPOETIN ALFA 2,000 UNIT/1 ML VIAL IVPUSH ONE ×2 (13:29→13:30)
--- NOTE | 2017-10-07 13:37 | PN ---
Progress Note (short form) - Note Progress Note: RENAL Pt is awake and alert being dialyzed currently denies new complaints Last Vital Signs Temp Pulse Resp BP Pulse Ox 97.6 F 64 18 114/69 97 10/07/17 05:51 10/07/17 13:00 10/07/17 13:00 10/07/17 13:00 10/06/17 21:00 lying flat comfortably lugs clear anteriorly cvs s1s2 rr abd soft ext +edema neuro a+ox3 CBC, BMP 10/07/17 10:15 10/07/17 10:15 Current Medications Generic Name Dose Route Start Last Admin Trade Name Freq PRN Reason Stop Dose Admin Acetaminophen 325 mg 10/04/17 05:13 10/07/17 02:31 Tylenol - PO 325 mg Q8H PRN Administration PAIN LEVEL 7 - 10 Clopidogrel Bisulfate 75 mg 10/04/17 10:00 10/06/17 10:08 Plavix - PO 75 mg DAILY [facility] Administration Collagenase 1 applic 10/04/17 10:00 10/06/17 10:16 Santyl - TP 1 applic DAILY [facility] Administration Protocol Diphenhydramine HCl 25 mg 10/04/17 11:51 10/07/17 09:33 Benadryl - PO 25 mg Q8H PRN Administration ITCHING Piperacillin Sod/Tazobactam 50 mls @ 100 mls/hr 10/04/17 12:30 10/07/17 01:47 Sod 2.25 gm/ Dextrose IVPB 100 mls/hr Q8H-IV [facility] Administration Protocol Sodium Chloride 250 mls @ 3,000 mls/hr 10/07/17 10:55 Normal Saline - IV PRN PRN Hypotension during Dialysis Insulin Aspart 1 vial 10/06/17 16:30 10/07/17 06:03 Novolog Vial Sliding Scale - SQ Not Given BIDAC [facility] Protocol Levothyroxine Sodium 75 mcg 10/04/17 07:00 10/07/17 06:04 Synthroid - PO 75 mcg DAILY@0700 [facility] Administration Melatonin 5 mg 10/03/17 22:00 10/06/17 21:38 Melatonin PO 5 mg HS PRN Administration INSOMNIA Metoprolol Succinate 12.5 mg 10/04/17 10:00 10/06/17 10:20 Toprol Xl - PO Not Given DAILY [facility] Morphine Sulfate 10 mg 10/04/17 10:00 10/07/17 09:29 Morphine 10 Mg/5 Ml Liquid PO 10 mg BID [facility] Administration Multivit/Ca Carb/B Cmplx/FA/Prenat 1 tablet 10/04/17 10:00 10/06/17 10:08 Nephro-Fer - PO 1 tablet DAILY [facility] Administration Oxycodone HCl 5 mg 10/04/17 05:13 10/07/17 02:30 Roxicodone - PO 5 mg Q8H PRN Administration PAIN LEVEL 7 - 10 Sacubitril/Valsartan 1 tab 10/04/17 22:00 10/06/17 21:37 Entresto 24 Mg-26 Mg Tablet PO 1 tab BID [facility] Administration Senna 2 tab 10/03/17 22:00 10/06/17 21:35 Senna - PO 2 tab HS [facility] Administration Senna/Docusate Sodium 1 tablet 10/04/17 10:00 10/06/17 10:08 Pericolace - PO 1 tablet DAILY [facility] Administration Thiamine HCl 100 mg 10/04/17 10:00 10/06/17 10:08 Vitamin B1 - PO 100 mg DAILY [facility] Administration Warfarin Sodium 6 mg 10/04/17 18:00 10/06/17 17:04 Coumadin - PO 6 mg DAILY@1800 [facility] Administration Impression 1. ESRD 2. hx pericardial effusion 3. hx pneumopericardium 4. hypothyroidism 5. a-fib 6. hypotension 7. hx of colon cancer 8. CHF 9. DM 10. hx of PE 11. CAD 12. foot ulcer Plan - will switch to 3 k bath - echo report reviewed, cardiology follow up noted -would continue coumadin - podiatry/vascular follow up - monitor bp - wound care MV
[2017-10-07] MEDS ORDERED: EPOETIN ALFA 2,000 UNIT/1 ML VIAL IVPUSH ONE (14:12)
--- NOTE | 2017-10-07 14:24 | PN ---
Progress Note (short form) - Note Progress Note: No changes. I have reordered arterial Duplex to complete the exam. I have tried to call both the ultrasound department and Dr. Adams without any response. Dr. Davila has told patient that he can debride the wound without amputation of 1st toe. Mr. Browne would like to try this option. His vascular status should be adequate for healing based on the arterial Doppler/PVR study. If wound fails to heal again a formal TMA will be required. Problem List - Problems (1) Open wound of foot Code(s): S91.309A - UNSPECIFIED OPEN WOUND, UNSPECIFIED FOOT, INITIAL ENCOUNTER Qualifiers: Encounter type: subsequent encounter Laterality: right Qualified Code(s) : S91.301D - Unspecified open wound, right foot, subsequent encounter (2) Status post peripheral artery angioplasty Code(s): Z98.62 - PERIPHERAL VASCULAR ANGIOPLASTY STATUS
[2017-10-07] MEDS: SACUBITRIL/VALSARTAN 24 MG-26 MG TABLET PO SCH ×2 (14:44→23:05)
[2017-10-07] MEDS: metoPROLOL SUCCINATE 25 MG TAB.SR.24H (FP) PO SCH (14:47)
[2017-10-07] MEDS: CLOPIDOGREL BISULFATE 75 MG TABLET (FP) PO SCH (16:15)
[2017-10-07] MEDS: SENNOSIDES/DOCUSATE COMBO (SENNA PLUS) TABLET (UD) PO SCH (16:15)
[2017-10-07] MEDS: THIAMINE HCL 100 MG TABLET (FP) PO SCH (16:15)
[2017-10-07] MEDS: VITAMIN B COMP W-C 1 EA TABLET PO SCH (16:16)
[2017-10-07] MEDS: COLLAGENASE CLOSTRIDIUM HIST. 30 GRAMS TUBE TP SCH ×2 (18:09→19:29)
[2017-10-07] MEDS ORDERED: PT OWN MED DRAWER 7, Y5N ONE (20:55)
[2017-10-07] MEDS: MELATONIN 5 MG TABLETS PO PRN (21:18)
[2017-10-07] MEDS: SENNOSIDES 8.6MG TABLET (FP) PO SCH (21:18)
[2017-10-08] MEDS ORDERED: DEXTROSE 5%-WATER - 50 ML IVPB ONE ×3 (01:56→17:04)
[2017-10-08] MEDS ORDERED: PIPERACILLIN/TAZOBACTAM 2.25 GM VIAL IVPB ONE ×3 (01:56→17:04)
[2017-10-08] MEDS: PIPERACILLIN/TAZOB 2.25 GM 2.25 GM in DEXTROSE 5%-WATER - 50 ML IVPB SCH ×3 (02:09→17:54)
[2017-10-08] MEDS: ACETAMINOPHEN 325 MG TABLET (FP) PO PRN ×2 (02:16→14:34)
[2017-10-08] MEDS: oxyCODONE HCL 5 MG TABLET PO PRN ×2 (02:16→14:34)
[2017-10-08] MEDS: LEVOTHYROXINE NA 75 MCG TABLET (FP) PO SCH (06:44)
[2017-10-08] MEDS: INSULIN SLIDING SCALE (NOVOLOG) 1 VIAL SQ SCH ×2 (06:44→17:54)
[2017-10-08 07:53] LABS: INR 3.08 (0.83-1.09); PROTHROMBIN TIME (PATIENT) 34.8 SEC (9.7-13.0)
[2017-10-08] MEDS ORDERED: PT OWN MED DRAWER 7, Y5N ONE (10:07)
[2017-10-08] MEDS: SENNOSIDES/DOCUSATE COMBO (SENNA PLUS) TABLET (UD) PO SCH (10:13)
[2017-10-08] MEDS: THIAMINE HCL 100 MG TABLET (FP) PO SCH (10:13)
[2017-10-08] MEDS: CLOPIDOGREL BISULFATE 75 MG TABLET (FP) PO SCH (10:13)
[2017-10-08] MEDS: morphine SULFATE 10 MG/5 ML UNIT-DOSE CUP PO SCH ×2 (10:13→21:25)
[2017-10-08] MEDS: VITAMIN B COMP W-C 1 EA TABLET PO SCH (10:13)
[2017-10-08] MEDS: metoPROLOL SUCCINATE 25 MG TAB.SR.24H (FP) PO SCH (10:14)
[2017-10-08] MEDS: SACUBITRIL/VALSARTAN 24 MG-26 MG TABLET PO SCH ×2 (10:14→22:55)
[2017-10-08] MEDS: COLLAGENASE CLOSTRIDIUM HIST. 30 GRAMS TUBE TP SCH (10:14)
[2017-10-08] MEDS: diphenhydrAMINE HCL 25 MG CAPSULE (FP) PO PRN ×2 (10:20→21:28)
--- NOTE | 2017-10-08 10:50 | PN ---
Progress Note (short form) - Note Progress Note: RENAL Pt is awake and alert denies new complaints Last Vital Signs Temp Pulse Resp BP Pulse Ox 97.6 F 66 18 104/64 97 10/08/17 10:00 10/08/17 10:00 10/08/17 10:00 10/08/17 10:00 10/07/17 21:00 lying flat comfortably lugs clear anteriorly cvs s1s2 rr abd soft ext +edema neuro a+ox3 CBC, BMP 10/07/17 10:15 10/07/17 10:15 Current Medications Generic Name Dose Route Start Last Admin Trade Name Freq PRN Reason Stop Dose Admin Acetaminophen 325 mg 10/04/17 05:13 10/08/17 02:16 Tylenol - PO 325 mg Q8H PRN Administration PAIN LEVEL 7 - 10 Clopidogrel Bisulfate 75 mg 10/04/17 10:00 10/08/17 10:13 Plavix - PO 75 mg DAILY [facility]IR[facility] Administration Collagenase 1 applic 10/04/17 10:00 10/08/17 10:14 Santyl - TP 1 applic DAILY [facility] Administration Protocol Diphenhydramine HCl 25 mg 10/04/17 11:51 10/08/17 10:20 Benadryl - PO 25 mg Q8H PRN Administration ITCHING Piperacillin Sod/Tazobactam 50 mls @ 100 mls/hr 10/04/17 12:30 10/08/17 10:13 Sod 2.25 gm/ Dextrose IVPB 100 mls/hr Q8H-IV [facility] Administration Protocol Sodium Chloride 250 mls @ 3,000 mls/hr 10/07/17 10:55 Normal Saline - IV PRN PRN Hypotension during Dialysis Insulin Aspart 1 vial 10/06/17 16:30 10/08/17 06:44 Novolog Vial Sliding Scale - SQ Not Given BIDAC [facility] Protocol Levothyroxine Sodium 75 mcg 10/04/17 07:00 10/08/17 06:44 Synthroid - PO 75 mcg DAILY@0700 [facility] Administration Melatonin 5 mg 10/03/17 22:00 10/07/17 21:18 Melatonin PO 5 mg HS PRN Administration INSOMNIA Metoprolol Succinate 12.5 mg 10/04/17 10:00 10/08/17 10:14 Toprol Xl - PO Not Given DAILY [facility] Morphine Sulfate 10 mg 10/04/17 10:00 10/08/17 10:13 Morphine 10 Mg/5 Ml Liquid PO 10 mg BID [facility] Administration Multivit/Ca Carb/B Cmplx/FA/Prenat 1 tablet 10/04/17 10:00 10/08/17 10:13 Nephro-Fer - PO 1 tablet DAILY [facility] Administration Oxycodone HCl 5 mg 10/04/17 05:13 10/08/17 02:16 Roxicodone - PO 5 mg Q8H PRN Administration PAIN LEVEL 7 - 10 Sacubitril/Valsartan 1 tab 10/04/17 22:00 10/08/17 10:14 Entresto 24 Mg-26 Mg Tablet PO Not Given BID [facility] Senna 2 tab 10/03/17 22:00 10/07/17 21:18 Senna - PO 2 tab HS [facility] Administration Senna/Docusate Sodium 1 tablet 10/04/17 10:00 10/08/17 10:13 Pericolace - PO 1 tablet DAILY [facility] Administration Thiamine HCl 100 mg 10/04/17 10:00 10/08/17 10:13 Vitamin B1 - PO 100 mg DAILY [facility] Administration Warfarin Sodium 6 mg 10/04/17 18:00 10/06/17 17:04 Coumadin - PO 6 mg DAILY@1800 [facility] Administration Impression 1. ESRD 2. hx pericardial effusion 3. hx pneumopericardium 4. hypothyroidism 5. a-fib 6. hypotension 7. hx of colon cancer 8. CHF 9. DM 10. hx of PE 11. CAD 12. foot ulcer Plan - will order hd for tomorrow again - to have a debridement per podiatry - would continue coumadin - vascular follow up noted - monitor bp - wound care - carvedilol maybe a better beta thierry since it doesnt get dialyzed significantly MV
[2017-10-08] MEDS ORDERED: SODIUM CHLORIDE 250 ML IV PRN (10:59)
--- NOTE | 2017-10-08 11:23 | PN ---
Progress Note, Physician History of Present Illness: stable no new issues - Current Medication List Current Medications: Active Medications Acetaminophen (Tylenol -) 325 mg PO Q8H PRN PRN Reason: PAIN LEVEL 7 - 10 Last Admin: 10/08/17 02:16 Dose: 325 mg Clopidogrel Bisulfate (Plavix -) 75 mg PO DAILY [facility] Last Admin: 10/08/17 10:13 Dose: 75 mg Collagenase (Santyl -) 1 applic TP DAILY [facility]; Protocol Last Admin: 10/08/17 10:14 Dose: 1 applic Diphenhydramine HCl (Benadryl -) 25 mg PO Q8H PRN PRN Reason: ITCHING Last Admin: 10/08/17 10:20 Dose: 25 mg Piperacillin Sod/Tazobactam (Sod 2.25 gm/ Dextrose) 50 mls @ 100 mls/hr IVPB Q8H-IV [facility]; Protocol Last Admin: 10/08/17 10:13 Dose: 100 mls/hr Sodium Chloride (Normal Saline -) 250 mls @ 3,000 mls/hr IV PRN PRN PRN Reason: Hypotension during Dialysis Sodium Chloride (Normal Saline -) 250 mls @ 3,000 mls/hr IV PRN PRN PRN Reason: Hypotension during Dialysis Stop: 10/09/17 10:59 Insulin Aspart (Novolog Vial Sliding Scale -) 1 vial SQ BIDAC [facility]; Protocol Last Admin: 10/08/17 06:44 Dose: Not Given Levothyroxine Sodium (Synthroid -) 75 mcg PO DAILY@0700 [facility] Last Admin: 10/08/17 06:44 Dose: 75 mcg Melatonin (Melatonin) 5 mg PO HS PRN PRN Reason: INSOMNIA Last Admin: 10/07/17 21:18 Dose: 5 mg Metoprolol Succinate (Toprol Xl -) 12.5 mg PO DAILY [facility] Last Admin: 10/08/17 10:14 Dose: Not Given Morphine Sulfate (Morphine 10 Mg/5 Ml Liquid) 10 mg PO BID [facility] Last Admin: 10/08/17 10:13 Dose: 10 mg Multivit/Ca Carb/B Cmplx/FA/Prenat (Nephro-Fer -) 1 tablet PO DAILY [facility] Last Admin: 10/08/17 10:13 Dose: 1 tablet Oxycodone HCl (Roxicodone -) 5 mg PO Q8H PRN PRN Reason: PAIN LEVEL 7 - 10 Last Admin: 10/08/17 02:16 Dose: 5 mg Sacubitril/Valsartan (Entresto 24 Mg-26 Mg Tablet) 1 tab PO BID [facility] Last Admin: 10/08/17 10:14 Dose: Not Given Senna (Senna -) 2 tab PO HS [facility] Last Admin: 10/07/17 21:18 Dose: 2 tab Senna/Docusate Sodium (Pericolace -) 1 tablet PO DAILY [facility] Last Admin: 10/08/17 10:13 Dose: 1 tablet Thiamine HCl (Vitamin B1 -) 100 mg PO DAILY [facility] Last Admin: 10/08/17 10:13 Dose: 100 mg Warfarin Sodium (Coumadin -) 6 mg PO DAILY@1800 [facility] Last Admin: 10/06/17 17:04 Dose: 6 mg - Objective Vital Signs: Vital Signs Temperature 97.6 F 10/08/17 10:00 Pulse Rate 66 10/08/17 10:00 Respiratory Rate 18 10/08/17 10:00 Blood Pressure 104/64 10/08/17 10:00 O2 Sat by Pulse Oximetry (%) 97 10/07/17 21:00 Constitutional: Yes: No Distress, Calm Cardiovascular: Yes: Regular Rate and Rhythm Respiratory: Yes: Regular, CTA Bilaterally Gastrointestinal: Yes: Normal Bowel Sounds, Soft Musculoskeletal: Yes: WNL Extremities: Yes: WNL Wound/Incision: Yes: Clean/Dry, Open to air Neurological: Yes: Alert, Oriented Psychiatric: Yes: Alert, Oriented Labs: CBC, BMP 10/07/17 10:15 10/07/17 10:15 INR, PTT INR 3.08 (0.83-1.09) H 10/08/17 06:00 Assessment/Plan Problem List - Problems (1) Diabetic foot ulcer Code(s): E11.621 - TYPE 2 DIABETES MELLITUS WITH FOOT ULCER; L97.509 - NON- PRESSURE CHRONIC ULCER OTH PRT UNSP FOOT W UNSP SEVERITY (2) Amputated toe of right foot Code(s): Z89.421 - ACQUIRED ABSENCE OF OTHER RIGHT TOE(S) (3) Cellulitis of right lower extremity Code(s): L03.115 - CELLULITIS OF RIGHT LOWER LIMB (4) Anemia Code(s): D64.9 - ANEMIA, UNSPECIFIED Qualifiers: Anemia type: due to chronic kidney disease (5) Atrial fibrillation Code(s): I48.91 - UNSPECIFIED ATRIAL FIBRILLATION Qualifiers: Atrial fibrillation type: permanent Qualified Code(s): I48.2 - Chronic atrial fibrillation (6) Chronic anticoagulation Code(s): 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 (7) 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 Code(s): E11.9 - TYPE 2 DIABETES MELLITUS WITHOUT COMPLICATIONS Qualifiers: 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 type: type 2 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 care home insulin use: without care home use 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 complication status: without complication Qualified Code(s): E11.9 - Type 2 diabetes mellitus without complications (8) ESRD (end stage renal disease) Code(s): N18.6 - END STAGE RENAL DISEASE (9) HTN (hypertension) Code(s): I10 - ESSENTIAL (PRIMARY) HYPERTENSION Qualifiers: Hypertension type: essential hypertension Qualified Code(s): I10 - Essential (primary) hypertension (10) Hypothyroid Code(s): E03.9 - HYPOTHYROIDISM, UNSPECIFIED Qualifiers: Hypothyroidism type: unspecified Qualified Code(s): E03.9 - Hypothyroidism , unspecified Assessment/Plan This is a 72 y/o man Admitted for Cellulitis of the Right Foot, Diabetic Wound Infection for further evaluation of their emergent condition. plan continue abx cx report noted await for final plan will d/w podiatry team further plan and vascular
--- NOTE | 2017-10-08 12:18 | PN ---
Progress Note (short form) - Note Progress Note: Chief Complaint: Events noted, notes reviewed, denies any chest pain or dyspnea History of Present Illness: Seen and examined. Events noted, notes reviewed, denies any chest pain or dyspnea Echocardiography dated 09/12/2017 revealed moderate pericardial effusion, no tamponade, mildly dilated LV with severely decreased LV fxn, mild-mod dilated RV with severely decreased RV fxn, mod-severe MUKUL, mild MR, mild-mod TR, mild AR Echocardiography dated 10/05/2017 revealed moderately dilated with severely decreased LV fxn, RV dilated with severely decreased RV fxn, mod LAE, mild MR, mod TR, mild AR, mod pericardial effusion similar to previous Echocardiography dated 08/11/2017 revealed mildly dilated LV with severely decreased LV function, mild-moderately dilated RV with moderately decreased RV function, moderate LAE, mild MR, TR, AR, moderate pericardial effusion with evidence of cardiac tamponade Lexiscan MPI study dated 11/11/2016 revealed large MT involving apex, inferior wall, infero-lateral small area mild royce-infarct ischemia mid anterior wall, dilated severely decreased LVEF 26, RV dilated - Current Medication List Current Medications Acetaminophen (Tylenol -) 325 mg PO Q8H PRN PRN Reason: PAIN LEVEL 7 - 10 Last Admin: 10/08/17 02:16 Dose: 325 mg Clopidogrel Bisulfate (Plavix -) 75 mg PO DAILY [facility] Last Admin: 10/08/17 10:13 Dose: 75 mg Collagenase (Santyl -) 1 applic TP DAILY [facility]; Protocol Last Admin: 10/08/17 10:14 Dose: 1 applic Diphenhydramine HCl (Benadryl -) 25 mg PO Q8H PRN PRN Reason: ITCHING Last Admin: 10/08/17 10:20 Dose: 25 mg Piperacillin Sod/Tazobactam (Sod 2.25 gm/ Dextrose) 50 mls @ 100 mls/hr IVPB Q8H-IV [facility]; Protocol Last Admin: 10/08/17 10:13 Dose: 100 mls/hr Sodium Chloride (Normal Saline -) 250 mls @ 3,000 mls/hr IV PRN PRN PRN Reason: Hypotension during Dialysis Sodium Chloride (Normal Saline -) 250 mls @ 3,000 mls/hr IV PRN PRN PRN Reason: Hypotension during Dialysis Stop: 10/09/17 10:59 Insulin Aspart (Novolog Vial Sliding Scale -) 1 vial SQ BIDAC [facility]; Protocol Last Admin: 10/08/17 06:44 Dose: Not Given Levothyroxine Sodium (Synthroid -) 75 mcg PO DAILY@0700 [facility] Last Admin: 10/08/17 06:44 Dose: 75 mcg Melatonin (Melatonin) 5 mg PO HS PRN PRN Reason: INSOMNIA Last Admin: 10/07/17 21:18 Dose: 5 mg Metoprolol Succinate (Toprol Xl -) 12.5 mg PO DAILY [facility] Last Admin: 10/08/17 10:14 Dose: Not Given Morphine Sulfate (Morphine 10 Mg/5 Ml Liquid) 10 mg PO BID [facility] Last Admin: 10/08/17 10:13 Dose: 10 mg Multivit/Ca Carb/B Cmplx/FA/Prenat (Nephro-Fer -) 1 tablet PO DAILY [facility] Last Admin: 10/08/17 10:13 Dose: 1 tablet Oxycodone HCl (Roxicodone -) 5 mg PO Q8H PRN PRN Reason: PAIN LEVEL 7 - 10 Last Admin: 10/08/17 02:16 Dose: 5 mg Sacubitril/Valsartan (Entresto 24 Mg-26 Mg Tablet) 1 tab PO BID [facility] Last Admin: 10/08/17 10:14 Dose: Not Given Senna (Senna -) 2 tab PO [facility] Last Admin: 10/07/17 21:18 Dose: 2 tab Senna/Docusate Sodium (Pericolace -) 1 tablet PO DAILY [facility] Last Admin: 10/08/17 10:13 Dose: 1 tablet Thiamine HCl (Vitamin B1 -) 100 mg PO DAILY [facility] Last Admin: 10/08/17 10:13 Dose: 100 mg Warfarin Sodium (Coumadin -) 6 mg PO DAILY@1800 [facility] Last Admin: 10/06/17 17:04 Dose: 6 mg - Objective Vital Signs: Last Vital Signs Temp Pulse Resp BP Pulse Ox 97.6 F 66 18 104/64 97 10/08/17 10:00 10/08/17 10:00 10/08/17 10:00 10/08/17 10:00 10/07/17 21:00 Intake & Output 10/05/17 10/06/17 10/07/17 10/08/17 23:59 23:59 23:59 23:59 Intake Total 550 550 650 50 Balance 550 550 650 50 Weight 220 lb 1.6 oz 221 lb 4 oz 225 lb 11.2 oz 222 lb 14.4 oz HEENT: Atraumatic Neck: Supple Negative JVD Cardiovascular: S1 S2 Regular Rate and Rhythm Respiratory: CTA Bilaterally Gastrointestinal: Soft benign Normal Bowel Sounds Ext: Trace Edema Dressing in Situ Labs: CBC, BMP 10/07/17 10:15 10/07/17 10:15 Hepatic Panel Total Bilirubin 0.9 mg/dL (0.2-1.0) 10/03/17 15:39 AST 32 U/L (15-37) D 10/03/17 15:39 ALT 12 U/L (12-78) D 10/03/17 15:39 Alkaline Phosphatase 111 U/L (45-117) D 10/03/17 15:39 Albumin 2.5 g/dl (3.4-5.0) L 10/03/17 15:39 INR, PTT INR 3.08 (0.83-1.09) H 10/08/17 06:00 ASSESSMENT and PLAN: ASSESSMENT: 1. Peripheral artery disease and gangrene right forefoot post right tibial revacularization and debridement of bone and soft tissue with transmetatarsal amputation 2. Ischemic dilated cardiomyopathy with chronic class I-II NYHA classification LV failure, compensated/euvolemic, post prophylactic ICD implant 3. CAD post MT with evidence of demand ischemic injury angina pectoris, clinically stable 4. Persistent atrial fibrillation [id number] score of 3-4 on Coumadin 5. Pericardial effusion probably uremic pericarditis, moderate in severity/ unchanged 6. 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 7. Hypothyroidism 8. History of PTE 9. ESRD 10. History of colon cancer PLAN: 1. Antibiotics as per the primary team 2. HD as per renal service 3. Continue Coumadin as per INR with close monitoring of CBC 4. Continue Toprol XL and titrate as hemodynamics permit/tolerate 5. Continue Entresto and titrate as hemodynamics permit/tolerate Rafaela Aguilar MD
--- NOTE | 2017-10-08 12:50 | PN ---
Progress Note (short form) - Note Progress Note: FUV right foot today. VSS. Tmax 97.6 +necrotic patches with granulation noted right foot unchanged, -mal odor, - cellulitis, +decreased edema, wound culture corynebacterium, wbc=3.9 necrosis edges of tma infected ampuation site Read and appreciated Dr. Cope note. Agree that if after next revision toe does not survive a formal TMA will be performed. Patient does want to try to save big toe for balance reasons. Awaiting re-ordered studies and vascular clearance for revisional surgery. Vac to be applied today. DC Santyl to right foot apply to heel wound.
--- NOTE | 2017-10-08 13:15 | PN ---
Progress Note (short form) - Note Progress Note: pt seen/ examined awake/ comfortable all f/u noted-- will discuss with podiatry and vascular vac placed today. Vital Signs Temp 97.6 F 10/08/17 10:00 Pulse 66 10/08/17 10:00 Resp 18 10/08/17 10:00 BP 104/64 10/08/17 10:00 Pulse Ox 97 10/07/17 21:00 Intake & Output 10/07/17 10/08/17 10/08/17 23:59 11:59 23:59 Intake Total 600 50 Balance 600 50 Weight 222 lb 14.4 oz Intake: IVPB 100 50 Oral 500 Other: Voiding Method Toilet Toilet Bowel Movement Yes # Bowel Movements 1 Weight Measurement Method Chair Scale Active Medications Acetaminophen (Tylenol -) 325 mg PO Q8H PRN PRN Reason: PAIN LEVEL 7 - 10 Last Admin: 10/08/17 02:16 Dose: 325 mg Clopidogrel Bisulfate (Plavix -) 75 mg PO DAILY [facility] Last Admin: 10/08/17 10:13 Dose: 75 mg Collagenase (Santyl -) 1 applic TP DAILY [facility]; Protocol Last Admin: 10/08/17 10:14 Dose: 1 applic Diphenhydramine HCl (Benadryl -) 25 mg PO Q8H PRN PRN Reason: ITCHING Last Admin: 10/08/17 10:20 Dose: 25 mg Piperacillin Sod/Tazobactam (Sod 2.25 gm/ Dextrose) 50 mls @ 100 mls/hr IVPB Q8H-IV [facility]; Protocol Last Admin: 10/08/17 10:13 Dose: 100 mls/hr Sodium Chloride (Normal Saline -) 250 mls @ 3,000 mls/hr IV PRN PRN PRN Reason: Hypotension during Dialysis Sodium Chloride (Normal Saline -) 250 mls @ 3,000 mls/hr IV PRN PRN PRN Reason: Hypotension during Dialysis Stop: 10/09/17 10:59 Insulin Aspart (Novolog Vial Sliding Scale -) 1 vial SQ BIDAC [facility]; Protocol Last Admin: 10/08/17 06:44 Dose: Not Given Levothyroxine Sodium (Synthroid -) 75 mcg PO DAILY@0700 [facility] Last Admin: 10/08/17 06:44 Dose: 75 mcg Melatonin (Melatonin) 5 mg PO HS PRN PRN Reason: INSOMNIA Last Admin: 10/07/17 21:18 Dose: 5 mg Metoprolol Succinate (Toprol Xl -) 12.5 mg PO DAILY [facility] Last Admin: 10/08/17 10:14 Dose: Not Given Morphine Sulfate (Morphine 10 Mg/5 Ml Liquid) 10 mg PO BID [facility] Last Admin: 10/08/17 10:13 Dose: 10 mg Multivit/Ca Carb/B Cmplx/FA/Prenat (Nephro-Fer -) 1 tablet PO DAILY [facility] Last Admin: 10/08/17 10:13 Dose: 1 tablet Oxycodone HCl (Roxicodone -) 5 mg PO Q8H PRN PRN Reason: PAIN LEVEL 7 - 10 Last Admin: 10/08/17 02:16 Dose: 5 mg Sacubitril/Valsartan (Entresto 24 Mg-26 Mg Tablet) 1 tab PO BID [facility] Last Admin: 10/08/17 10:14 Dose: Not Given Senna (Senna -) 2 tab PO HS [facility] Last Admin: 10/07/17 21:18 Dose: 2 tab Senna/Docusate Sodium (Pericolace -) 1 tablet PO DAILY [facility] Last Admin: 10/08/17 10:13 Dose: 1 tablet Thiamine HCl (Vitamin B1 -) 100 mg PO DAILY [facility] Last Admin: 10/08/17 10:13 Dose: 100 mg Warfarin Sodium (Coumadin -) 6 mg PO DAILY@1800 [facility] Last Admin: 10/06/17 17:04 Dose: 6 mg CBC, BMP 10/07/17 10:15 10/07/17 10:15 Microbiology 10/03/17 15:43 Blood Culture - Preliminary Blood - Peripheral Venous NO GROWTH OBTAINED AFTER 96 HOURS, INCUBATION TO CONTINUE FOR 1 DAYS. 10/03/17 15:39 Blood Culture - Preliminary Blood - Peripheral Venous NO GROWTH OBTAINED AFTER 96 HOURS, INCUBATION TO CONTINUE FOR 1 DAYS. Physical Alert/ awake. neck: Yes: WNL, Supple, Trachea Midline Cardiovascular: Yes: Pulse regular, S1, S2 Respiratory: Yes: WNL, Regular, CTA Bilaterally, On Nasal O2 Gastrointestinal: Yes: Normal Bowel Sounds, Soft Vac placed A/P Right foor cellulitis DM CHF S/P right posterior tibial artery re-vascularization and subsequent foot amputation digit-2-5 afib PE Colon ca- s/p resection peripheral neuropathy ESRD on HD antibiotics per ID rate controlled with BB, A/C per inr-- hold today again as inr still above 3 BGM monitoring continue other meds vascular to follow will follow Problem List - Problems (1) Cellulitis Code(s): L03.90 - CELLULITIS, UNSPECIFIED Qualifiers: Site of cellulitis: extremity Site of cellulitis of extremity: lower extremity Laterality: right Qualified Code(s): L03.115 - Cellulitis of right lower limb (2) Diabetic foot ulcer Code(s): E11.621 - TYPE 2 DIABETES MELLITUS WITH FOOT ULCER; L97.509 - NON- PRESSURE CHRONIC ULCER OTH PRT UNSP FOOT W UNSP SEVERITY (3) Amputated toe of right foot Code(s): Z89.421 - ACQUIRED ABSENCE OF OTHER RIGHT TOE(S) (4) Atrial fibrillation Code(s): I48.91 - UNSPECIFIED ATRIAL FIBRILLATION Qualifiers: Atrial fibrillation type: permanent Qualified Code(s): I48.2 - Chronic atrial fibrillation (5) Cardiomyopathy Code(s): I42.9 - CARDIOMYOPATHY, UNSPECIFIED Qualifiers: Cardiomyopathy type: unspecified Qualified Code(s): I42.9 - Cardiomyopathy , unspecified (6) Chronic anticoagulation Code(s): 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
[2017-10-08] MEDS ORDERED: INSULIN (NOVOLOG) ASPART 100 UNITS/ML 10ML VIAL ONE (17:04)
[2017-10-08] MEDS: SENNOSIDES 8.6MG TABLET (FP) PO SCH (21:25)
[2017-10-09] MEDS ORDERED: PIPERACILLIN/TAZOBACTAM 2.25 GM VIAL IVPB ONE ×3 (01:14→17:23)
[2017-10-09] MEDS ORDERED: DEXTROSE 5%-WATER - 50 ML IVPB ONE ×3 (01:14→17:23)
[2017-10-09] MEDS ORDERED: PT OWN MED DRAWER 7, Y5N ONE ×3 (01:25→09:50)
[2017-10-09] MEDS: PIPERACILLIN/TAZOB 2.25 GM 2.25 GM in DEXTROSE 5%-WATER - 50 ML IVPB SCH ×3 (01:49→17:55)
[2017-10-09] MEDS: oxyCODONE HCL 5 MG TABLET PO PRN ×2 (04:06→16:30)
[2017-10-09] MEDS: ACETAMINOPHEN 325 MG TABLET (FP) PO PRN ×2 (04:07→16:30)
[2017-10-09] MEDS: LEVOTHYROXINE NA 75 MCG TABLET (FP) PO SCH (06:05)
[2017-10-09] MEDS: INSULIN SLIDING SCALE (NOVOLOG) 1 VIAL SQ SCH ×2 (06:10→17:57)
[2017-10-09] MEDS ORDERED: INSULIN (NOVOLOG) ASPART 100 UNITS/ML 10ML VIAL ONE (06:14)
[2017-10-09 07:32] LABS: INR 2.37 (0.83-1.09); PROTHROMBIN TIME (PATIENT) 26.8 SEC (9.7-13.0)
--- NOTE | 2017-10-09 08:50 | PN ---
Progress Note (short form) - Note Progress Note: Patient going for debridement with Podiatry. Patient wants to make an attempt at salvaging great toe. If re-debridement fails...he will need a TMA. <Bernardo Beaulieu P - Last Filed: 10/09/17 08:50> - Note Progress Note: Repeat arterial Duplex reviewed. There appears to be pulsatile flow throughout the TOY MAKER suggesting patency of the proximal revascularization performed recently. Foot surgery may proceed. <Olvin Cope - Last Filed: 10/10/17 09:01> Problem List - Problems (1) Open wound of foot Assessment/Plan: LE arterial duplex studies completed but not read yet...awaiting official results. Code(s): S91.309A - UNSPECIFIED OPEN WOUND, UNSPECIFIED FOOT, INITIAL ENCOUNTER Qualifiers: Encounter type: subsequent encounter Laterality: right Qualified Code(s) : S91.301D - Unspecified open wound, right foot, subsequent encounter (2) Status post peripheral artery angioplasty Code(s): Z98.62 - PERIPHERAL VASCULAR ANGIOPLASTY STATUS <Bernardo Beaulieu - Last Filed: 10/09/17 08:50> - Problems (1) Open wound of foot Code(s): S91.309A - UNSPECIFIED OPEN WOUND, UNSPECIFIED FOOT, INITIAL ENCOUNTER Qualifiers: Encounter type: subsequent encounter Laterality: right Qualified Code(s) : S91.301D - Unspecified open wound, right foot, subsequent encounter (2) Status post peripheral artery angioplasty Code(s): Z98.62 - PERIPHERAL VASCULAR ANGIOPLASTY STATUS <Olvin Cope - Last Filed: 10/10/17 09:01>
--- NOTE | 2017-10-09 09:02 | PN ---
Progress Note (short form) - Note Progress Note: Chief Complaint: Events noted, notes reviewed, denies any chest pain or dyspnea , resting in bed History of Present Illness: Seen and examined. Events noted, notes reviewed, denies any chest pain or dyspnea, resting in bed Echocardiography dated 09/12/2017 revealed moderate pericardial effusion, no tamponade, mildly dilated LV with severely decreased LV fxn, mild-mod dilated RV with severely decreased RV fxn, mod-severe MUKUL, mild MR, mild-mod TR, mild AR Echocardiography dated 10/05/2017 revealed moderately dilated with severely decreased LV fxn, RV dilated with severely decreased RV fxn, mod LAE, mild MR, mod TR, mild AR, mod pericardial effusion similar to previous Echocardiography dated 08/11/2017 revealed mildly dilated LV with severely decreased LV function, mild-moderately dilated RV with moderately decreased RV function, moderate LAE, mild MR, TR, AR, moderate pericardial effusion with evidence of cardiac tamponade Lexiscan MPI study dated 11/11/[address] involving apex, inferior wall, infero-lateral small area mild royce-infarct ischemia mid anterior wall, dilated severely decreased LVEF 26, RV dilated - Current Medication List Current Medications Acetaminophen (Tylenol -) 325 mg PO Q8H PRN PRN Reason: PAIN LEVEL 7 - 10 Last Admin: 10/09/17 04:07 Dose: 325 mg Clopidogrel Bisulfate (Plavix -) 75 mg PO DAILY [facility] Last Admin: 10/08/17 10:13 Dose: 75 mg Collagenase (Santyl -) 1 applic TP DAILY [facility]; Protocol Last Admin: 10/08/17 10:14 Dose: 1 applic Diphenhydramine HCl (Benadryl -) 25 mg PO Q8H PRN PRN Reason: ITCHING Last Admin: 10/08/17 21:28 Dose: 25 mg Piperacillin Sod/Tazobactam (Sod 2.25 gm/ Dextrose) 50 mls @ 100 mls/hr IVPB Q8H-IV [facility]; Protocol Last Admin: 10/09/17 01:49 Dose: 100 mls/hr Sodium Chloride (Normal Saline -) 250 mls @ 3,000 mls/hr IV PRN PRN PRN Reason: Hypotension during Dialysis Sodium Chloride (Normal Saline -) 250 mls @ 3,000 mls/hr IV PRN PRN PRN Reason: Hypotension during Dialysis Stop: 10/09/17 10:59 Insulin Aspart (Novolog Vial Sliding Scale -) [facility]; [facility] Last Admin: 10/09/17 06:10 Dose: Not Given Levothyroxine Sodium (Synthroid -) 75 mcg PO DAILY@0700 [facility] Last Admin: 10/09/17 06:05 Dose: 75 mcg Melatonin (Melatonin) 5 mg PO HS PRN PRN Reason: INSOMNIA Last Admin: 10/07/17 21:18 Dose: 5 mg Metoprolol Succinate (Toprol Xl -) 12.5 mg PO DAILY [facility] Last Admin: 10/08/17 10:14 Dose: Not Given Morphine Sulfate (Morphine 10 Mg/5 Ml Liquid) 10 mg PO BID [facility] Last Admin: 10/08/17 21:25 Dose: 10 mg Multivit/Ca Carb/B Cmplx/FA/Prenat (Nephro-Fer -) 1 tablet PO DAILY [facility] Last Admin: 10/08/17 10:13 Dose: 1 tablet Oxycodone HCl (Roxicodone -) 5 mg PO Q8H PRN PRN Reason: PAIN LEVEL 7 - 10 Last Admin: 10/09/17 04:06 Dose: 5 mg Sacubitril/Valsartan (Entresto 24 Mg-26 Mg Tablet) 1 tab PO BID [facility] Last Admin: 10/08/17 22:55 Dose: 1 tab Senna (Senna -) 2 tab PO [facility] Last Admin: 10/08/17 21:25 Dose: 2 tab Senna/Docusate Sodium (Pericolace -) 1 tablet PO DAILY [facility] Last Admin: 10/08/17 10:13 Dose: 1 tablet Thiamine HCl (Vitamin B1 -) 100 mg PO DAILY [facility] Last Admin: 10/08/17 10:13 Dose: 100 mg Warfarin Sodium (Coumadin -) 6 mg PO DAILY@1800 [facility] Last Admin: 10/06/17 17:04 Dose: 6 mg - Objective Vital Signs: Last Vital Signs Temp Pulse Resp BP Pulse Ox 97.6 F 67 16 110/62 100 10/09/17 08:43 10/09/17 08:43 10/09/17 08:43 10/09/17 08:43 10/08/17 21:00 Intake & Output 10/06/17 10/07/17 10/08/17 10/09/17 23:59 23:59 23:59 23:59 Intake Total 550 650 750 250 Balance 550 650 750 250 Weight 221 lb 4 oz 225 lb 11.2 oz 222 lb 14.4 oz 227 lb HEENT: Atraumatic Neck: Supple Negative JVD Cardiovascular: S1 S2 Regular Rate and Rhythm Respiratory: CTA Bilaterally Gastrointestinal: Soft benign Normal Bowel Sounds Ext: Trace Edema Dressing in Situ Labs: CBC, BMP 10/07/17 10:15 10/07/17 10:15 ASSESSMENT and PLAN: ASSESSMENT: 1. Peripheral artery disease and gangrene right forefoot post right tibial revacularization and debridement of bone and soft tissue with transmetatarsal amputation 2. Ischemic dilated cardiomyopathy with chronic class I-II NYHA classification LV failure, compensated/euvolemic, post prophylactic ICD implant 3. CAD post CT with evidence of demand ischemic injury angina pectoris, clinically stable 4. Persistent atrial fibrillation [id number] score of 3-4 on Coumadin 5. Pericardial effusion probably uremic pericarditis, moderate in severity/ unchanged 6. 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 7. Hypothyroidism 8. History of PTE 9. ESRD 10. History of colon cancer PLAN: 1. Antibiotics as per the primary team 2. HD as per renal service 3. Continue Coumadin as per INR with close monitoring of CBC, unless invasive procedure is planned at which point to hold Coumadin 4. Continue Toprol XL and titrate as hemodynamics permit/tolerate 5. Continue Entresto and titrate as hemodynamics permit/tolerate Rafaela Aguilar MD
[2017-10-09] MEDS: morphine SULFATE 10 MG/5 ML UNIT-DOSE CUP PO SCH ×2 (09:53→21:45)
[2017-10-09] MEDS: CLOPIDOGREL BISULFATE 75 MG TABLET (FP) PO SCH (10:00)
[2017-10-09] MEDS: SENNOSIDES/DOCUSATE COMBO (SENNA PLUS) TABLET (UD) PO SCH (10:00)
[2017-10-09] MEDS: SACUBITRIL/VALSARTAN 24 MG-26 MG TABLET PO SCH ×2 (10:00→21:23)
[2017-10-09] MEDS: THIAMINE HCL 100 MG TABLET (FP) PO SCH (10:01)
[2017-10-09] MEDS: metoPROLOL SUCCINATE 25 MG TAB.SR.24H (FP) PO SCH (10:01)
[2017-10-09] MEDS: VITAMIN B COMP W-C 1 EA TABLET PO SCH (10:01)
[2017-10-09] MEDS: diphenhydrAMINE HCL 25 MG CAPSULE (FP) PO PRN ×2 (10:16→21:44)
--- NOTE | 2017-10-09 11:46 | PN ---
Progress Note (short form) - Note Progress Note: pt seen/ examined in dialysis today comfortable denies pain afebrile Vital Signs Temp 97.8 F 10/09/17 10:25 Pulse 65 10/09/17 11:00 Resp 18 10/09/17 11:00 BP 125/69 10/09/17 11:00 Pulse Ox 100 10/08/17 21:00 Intake & Output 10/08/17 10/08/17 10/09/17 11:59 23:59 11:59 Intake Total 50 700 400 Balance 50 700 400 Weight 222 lb 14.4 oz 227 lb Intake: IVPB 50 100 100 Oral 600 300 Other: Voiding Method Toilet Toilet Toilet Bowel Movement Yes # Bowel Movements 1 Weight Measurement Method Chair Scale Standing Scale Active Medications Acetaminophen (Tylenol -) 325 mg PO Q8H PRN PRN Reason: PAIN LEVEL 7 - 10 Last Admin: 10/09/17 04:07 Dose: 325 mg Clopidogrel Bisulfate (Plavix -) 75 mg PO DAILY [facility] Last Admin: 10/09/17 10:00 Dose: 75 mg Collagenase (Santyl -) 1 applic TP DAILY [facility]; Protocol Last Admin: 10/08/17 10:14 Dose: 1 applic Diphenhydramine HCl (Benadryl -) 25 mg PO Q8H PRN PRN Reason: ITCHING Last Admin: 10/09/17 10:16 Dose: 25 mg Piperacillin Sod/Tazobactam (Sod 2.25 gm/ Dextrose) 50 mls @ 100 mls/hr IVPB Q8H-IV [facility]; Protocol Last Admin: 10/09/17 01:49 Dose: 100 mls/hr Sodium Chloride (Normal Saline -) 250 mls @ 3,000 mls/hr IV PRN PRN PRN Reason: Hypotension during Dialysis Sodium Chloride (Normal Saline -) 250 mls @ 3,000 mls/hr IV PRN PRN PRN Reason: Hypotension during Dialysis Stop: 10/09/17 10:59 Insulin Aspart (Novolog Vial Sliding Scale -) 1 vial SQ BIDAC [facility]; Protocol Last Admin: 10/09/17 06:10 Dose: Not Given Levothyroxine Sodium (Synthroid -) 75 mcg PO DAILY@0700 [facility] Last Admin: 10/09/17 06:05 Dose: 75 mcg Melatonin (Melatonin) 5 mg PO HS PRN PRN Reason: INSOMNIA Last Admin: 10/07/17 21:18 Dose: 5 mg Metoprolol Succinate (Toprol Xl -) 12.5 mg PO DAILY [facility] Last Admin: 10/09/17 10:01 Dose: Not Given Morphine Sulfate (Morphine 10 Mg/5 Ml Liquid) 10 mg PO BID [facility] Last Admin: 10/09/17 09:53 Dose: 10 mg Multivit/Ca Carb/B Cmplx/FA/Prenat (Nephro-Fer -) 1 tablet PO DAILY [facility] Last Admin: 10/09/17 10:01 Dose: 1 tablet Sacubitril/Valsartan (Entresto 24 Mg-26 Mg Tablet) 1 tab PO BID [facility] Last Admin: 10/08/17 22:55 Dose: 1 tab Senna (Senna -) 2 tab PO HS [facility] Last Admin: 10/08/17 21:25 Dose: 2 tab Senna/Docusate Sodium (Pericolace -) 1 tablet PO DAILY [facility] Last Admin: 10/09/17 10:00 Dose: 1 tablet Thiamine HCl (Vitamin B1 -) 100 mg PO DAILY [facility] Last Admin: 10/09/17 10:01 Dose: 100 mg Warfarin Sodium (Coumadin -) 6 mg PO DAILY@1800 [facility] Last Admin: 10/06/17 17:04 Dose: 6 mg CBC, BMP 10/07/17 10:15 10/07/17 10:15 Microbiology 10/03/17 15:43 Blood Culture - Final Blood - Peripheral Venous NO GROWTH AFTER 5 DAYS INCUBATION 10/03/17 15:39 Blood Culture - Final Blood - Peripheral Venous NO GROWTH AFTER 5 DAYS INCUBATION Physical Exam. Alert/ awake. Pleasant . neck: Yes: WNL, Supple, Trachea Midline Cardiovascular: Yes: Pulse regular, S1, S2 Respiratory: Yes: WNL, Regular, CTA Bilaterally, On Nasal O2 Gastrointestinal: Yes: Normal Bowel Sounds, Soft Vac placed A/P Right foor cellulitis DM CHF S/P right posterior tibial artery re-vascularization and subsequent foot amputation digit-2-5 afib PE Colon ca- s/p resection peripheral neuropathy ESRD on HD Continue antibiotics per ID rate controlled with BB, A/C per inr-- BGM monitoring continue other meds will follow Problem List - Problems (1) Cellulitis Code(s): L03.90 - CELLULITIS, UNSPECIFIED Qualifiers: Site of cellulitis: extremity Site of cellulitis of extremity: lower extremity Laterality: right Qualified Code(s): L03.115 - Cellulitis of right lower limb (2) Diabetic foot ulcer Code(s): E11.621 - TYPE 2 DIABETES MELLITUS WITH FOOT ULCER; L97.509 - NON- PRESSURE CHRONIC ULCER OTH PRT UNSP FOOT W UNSP SEVERITY (3) Amputated toe of right foot Code(s): Z89.421 - ACQUIRED ABSENCE OF OTHER RIGHT TOE(S) (4) Atrial fibrillation Code(s): I48.91 - UNSPECIFIED ATRIAL FIBRILLATION Qualifiers: Atrial fibrillation type: permanent Qualified Code(s): I48.2 - Chronic atrial fibrillation (5) Cardiomyopathy Code(s): I42.9 - CARDIOMYOPATHY, UNSPECIFIED Qualifiers: Cardiomyopathy type: unspecified Qualified Code(s): I42.9 - Cardiomyopathy , unspecified (6) Chronic anticoagulation Code(s): 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
--- NOTE | 2017-10-09 13:03 | PN ---
Progress Note, Physician History of Present Illness: doing well no new issues - Current Medication List Current Medications: Active Medications Acetaminophen (Tylenol -) 325 mg PO Q8H PRN PRN Reason: PAIN LEVEL 7 - 10 Last Admin: 10/09/17 04:07 Dose: 325 mg Clopidogrel Bisulfate (Plavix -) 75 mg PO DAILY [facility] Last Admin: 10/09/17 10:00 Dose: 75 mg Collagenase (Santyl -) 1 applic TP DAILY [facility]; Protocol Last Admin: 10/08/17 10:14 Dose: 1 applic Diphenhydramine HCl (Benadryl -) 25 mg PO Q8H PRN PRN Reason: ITCHING Last Admin: 10/09/17 10:16 Dose: 25 mg Piperacillin Sod/Tazobactam (Sod 2.25 gm/ Dextrose) 50 mls @ 100 mls/hr IVPB Q8H-IV [facility]; Protocol Last Admin: 10/09/17 01:49 Dose: 100 mls/hr Sodium Chloride (Normal Saline -) 250 mls @ 3,000 mls/hr IV PRN PRN PRN Reason: Hypotension during Dialysis Sodium Chloride (Normal Saline -) 250 mls @ 3,000 mls/hr IV PRN PRN PRN Reason: Hypotension during Dialysis Stop: 10/09/17 10:59 Insulin Aspart (Novolog Vial Sliding Scale -) 1 vial SQ [facility]; Protocol Last Admin: 10/09/17 06:10 Dose: Not Given Levothyroxine Sodium (Synthroid -) 75 mcg PO DAILY@0700 [facility] Last Admin: 10/09/17 06:05 Dose: 75 mcg Melatonin (Melatonin) 5 mg PO HS PRN PRN Reason: INSOMNIA Last Admin: 10/07/17 21:18 Dose: 5 mg Metoprolol Succinate (Toprol Xl -) 12.5 mg PO DAILY [facility] Last Admin: 10/09/17 10:01 Dose: Not Given Morphine Sulfate (Morphine 10 Mg/5 Ml Liquid) 10 mg PO BID [facility] Last Admin: 10/09/17 09:53 Dose: 10 mg Multivit/Ca Carb/B Cmplx/FA/Prenat (Nephro-Fer -) 1 tablet PO DAILY [facility] Last Admin: 10/09/17 10:01 Dose: 1 tablet Sacubitril/Valsartan (Entresto 24 Mg-26 Mg Tablet) 1 tab PO BID [facility] Last Admin: 10/08/17 22:55 Dose: 1 tab Senna (Senna -) 2 tab PO HS [facility] Last Admin: 10/08/17 21:25 Dose: 2 tab Senna/Docusate Sodium (Pericolace -) 1 tablet PO DAILY [facility] Last Admin: 10/09/17 10:00 Dose: 1 tablet Thiamine HCl (Vitamin B1 -) 100 mg PO DAILY [facility] Last Admin: 10/09/17 10:01 Dose: 100 mg Warfarin Sodium (Coumadin -) 5 mg PO DAILY@1800 [facility] - Objective Vital Signs: Vital Signs Temperature 97.8 F 10/09/17 10:25 Pulse Rate 66 10/09/17 12:30 Respiratory Rate 18 10/09/17 12:30 Blood Pressure 104/67 10/09/17 12:30 O2 Sat by Pulse Oximetry (%) 100 10/09/17 09:00 Constitutional: Yes: No Distress, Calm Cardiovascular: Yes: Regular Rate and Rhythm Respiratory: Yes: Regular, CTA Bilaterally Gastrointestinal: Yes: Normal Bowel Sounds, Soft Musculoskeletal: Yes: WNL Extremities: Yes: Other Wound/Incision: Yes: Dressing Dry and Intact Neurological: Yes: Alert, Oriented Psychiatric: Yes: Alert, Oriented Labs: CBC, BMP 10/07/17 10:15 10/07/17 10:15 INR, PTT INR 2.37 (0.83-1.09) H 10/09/17 06:55 Assessment/Plan Problem List - Problems (1) Diabetic foot ulcer Code(s): E11.621 - TYPE 2 DIABETES MELLITUS WITH FOOT ULCER; L97.509 - NON- PRESSURE CHRONIC ULCER OTH PRT UNSP FOOT W UNSP SEVERITY (2) Amputated toe of right foot Code(s): Z89.421 - ACQUIRED ABSENCE OF OTHER RIGHT TOE(S) (3) Cellulitis of right lower extremity Code(s): L03.115 - CELLULITIS OF RIGHT LOWER LIMB (4) Anemia Code(s): D64.9 - ANEMIA, UNSPECIFIED Qualifiers: Anemia type: due to chronic kidney disease (5) Atrial fibrillation Code(s): I48.91 - UNSPECIFIED ATRIAL FIBRILLATION Qualifiers: Atrial fibrillation type: permanent Qualified Code(s): I48.2 - Chronic atrial fibrillation (6) Chronic anticoagulation Code(s): Z79.01 - DRILL PRESS HAND (CURRENT) USE OF 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 (7) 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 Code(s): E11.9 - TYPE 2 DIABETES MELLITUS WITHOUT COMPLICATIONS Qualifiers: 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 type: type 2 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 mcc insulin use: without 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 use 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 complication status: without complication Qualified Code(s): E11.9 - Type 2 diabetes mellitus without complications (8) ESRD (end stage renal disease) Code(s): N18.6 - END STAGE RENAL DISEASE (9) HTN (hypertension) Code(s): I10 - ESSENTIAL (PRIMARY) HYPERTENSION Qualifiers: Hypertension type: essential hypertension Qualified Code(s): I10 - Essential (primary) hypertension (10) Hypothyroid Code(s): E03.9 - HYPOTHYROIDISM, UNSPECIFIED Qualifiers: Hypothyroidism type: unspecified Qualified Code(s): E03.9 - Hypothyroidism , unspecified Assessment/Plan This is a 72 y/o man Admitted for Cellulitis of the Right Foot, Diabetic Wound Infection for further evaluation of their emergent condition. plan continue abx cx report noted await for final plan will d/w podiatry team further plan and vascular
--- NOTE | 2017-10-09 14:24 | PN ---
Progress Note, Physician History of Present Illness: Pt seen and examined at bedside. He is currently getting HD. He is tolerating dialysis so far. He denies chest pain. - Current Medication List Current Medications: Active Medications Acetaminophen (Tylenol -) 325 mg PO Q8H PRN PRN Reason: PAIN LEVEL 7 - 10 Last Admin: 10/09/17 04:07 Dose: 325 mg Clopidogrel Bisulfate (Plavix -) 75 mg PO DAILY [facility] Last Admin: 10/09/17 10:00 Dose: 75 mg Collagenase (Santyl -) 1 applic TP DAILY [facility]; Protocol Last Admin: 10/08/17 10:14 Dose: 1 applic Diphenhydramine HCl (Benadryl -) 25 mg PO Q8H PRN PRN Reason: ITCHING Last Admin: 10/09/17 10:16 Dose: 25 mg Piperacillin Sod/Tazobactam (Sod 2.25 gm/ Dextrose) 50 mls @ 100 mls/hr IVPB Q8H-IV [facility]; Protocol Last Admin: 10/09/17 13:25 Dose: 100 mls/hr Sodium Chloride (Normal Saline -) 250 mls @ 3,000 mls/hr IV PRN PRN PRN Reason: Hypotension during Dialysis Sodium Chloride (Normal Saline -) 250 mls @ 3,000 mls/hr IV PRN PRN PRN Reason: Hypotension during Dialysis Stop: 10/09/17 10:59 Insulin Aspart (Novolog Vial Sliding Scale -) 1 vial SQ BIDAC [facility]; Protocol Last Admin: 10/09/17 06:10 Dose: Not Given Levothyroxine Sodium (Synthroid -) 75 mcg PO DAILY@0700 [facility] Last Admin: 10/09/17 06:05 Dose: 75 mcg Melatonin (Melatonin) 5 mg PO HS PRN PRN Reason: INSOMNIA Last Admin: 10/07/17 21:18 Dose: 5 mg Metoprolol Succinate (Toprol Xl -) 12.5 mg PO DAILY [facility] Last Admin: 10/09/17 10:01 Dose: Not Given Morphine Sulfate (Morphine 10 Mg/5 Ml Liquid) 10 mg PO BID [facility] Last Admin: 10/09/17 09:53 Dose: 10 mg Multivit/Ca Carb/B Cmplx/FA/Prenat (Nephro-Fer -) 1 tablet PO DAILY [facility] Last Admin: 10/09/17 10:01 Dose: 1 tablet Sacubitril/Valsartan (Entresto 24 Mg-26 Mg Tablet) 1 tab PO BID [facility] Last Admin: 10/08/17 22:55 Dose: 1 tab Senna (Senna -) 2 tab PO HS [facility] Last Admin: 10/08/17 21:25 Dose: 2 tab Senna/Docusate Sodium (Pericolace -) 1 tablet PO DAILY [facility] Last Admin: 10/09/17 10:00 Dose: 1 tablet Thiamine HCl (Vitamin B1 -) 100 mg PO DAILY [facility] Last Admin: 10/09/17 10:01 Dose: 100 mg Warfarin Sodium (Coumadin -) 5 mg PO DAILY@1800 [facility] - Objective Vital Signs: Vital Signs Temperature 97.8 F 10/09/17 10:25 Pulse Rate 66 10/09/17 13:35 Respiratory Rate 18 10/09/17 13:35 Blood Pressure 107/74 10/09/17 13:35 O2 Sat by Pulse Oximetry (%) 100 10/09/17 09:00 Constitutional: Yes: Calm Eyes: Yes: Conjunctiva Clear HENT: Yes: Atraumatic Neck: Yes: Supple Cardiovascular: Yes: S1, S2 Respiratory: Yes: CTA Bilaterally, On Nasal O2 Gastrointestinal: Yes: Soft Genitourinary: Yes: WNL Edema: Yes Edema: LLE: 2+, RLE: 2+ Integumentary: Yes: WNL Wound/Incision: Yes: Other (wound vac in place) Neurological: Yes: Oriented Psychiatric: Yes: Oriented Labs: CBC, BMP 10/07/17 10:15 10/07/17 10:15 INR, PTT INR 2.37 (0.83-1.09) H 10/09/17 06:55 Problem List - Problems (1) Cellulitis Code(s): L03.90 - CELLULITIS, UNSPECIFIED Qualifiers: Site of cellulitis: extremity Site of cellulitis of extremity: lower extremity Laterality: right Qualified Code(s): L03.115 - Cellulitis of right lower limb (2) Diabetic foot ulcer Code(s): E11.621 - TYPE 2 DIABETES MELLITUS WITH FOOT ULCER; L97.509 - NON- PRESSURE CHRONIC ULCER OTH PRT UNSP FOOT W UNSP SEVERITY (3) Anemia Code(s): D64.9 - ANEMIA, UNSPECIFIED Qualifiers: Anemia type: due to chronic kidney disease (4) Atrial fibrillation Code(s): I48.91 - UNSPECIFIED ATRIAL FIBRILLATION Qualifiers: Atrial fibrillation type: permanent Qualified Code(s): I48.2 - Chronic atrial fibrillation (5) ESRD (end stage renal disease) Code(s): N18.6 - END STAGE RENAL DISEASE Assessment/Plan Current Medications Generic Name Dose Route Start Last Admin Trade Name Freq PRN Reason Stop Dose Admin Acetaminophen 325 mg 10/04/17 05:13 10/09/17 04:07 Tylenol - PO 325 mg Q8H PRN Administration PAIN LEVEL 7 - 10 Clopidogrel Bisulfate 75 mg 10/04/17 10:00 10/09/17 10:00 Plavix - PO 75 mg DAILY [facility] Administration Collagenase 1 applic 10/04/17 10:00 10/08/17 10:14 Santyl - TP 1 applic DAILY [facility] Administration Protocol Diphenhydramine HCl 25 mg 10/04/17 11:51 10/09/17 10:16 Benadryl - PO 25 mg Q8H PRN Administration ITCHING Piperacillin Sod/Tazobactam 50 mls @ 100 mls/hr 10/04/17 12:30 10/09/17 13:25 Sod 2.25 gm/ Dextrose IVPB 100 mls/hr Q8H-IV [facility] Administration Protocol Sodium Chloride 250 mls @ 3,000 mls/hr 10/07/17 10:55 Normal Saline - IV PRN PRN Hypotension during Dialysis Sodium Chloride 250 mls @ 3,000 mls/hr 10/08/17 10:59 Normal Saline - IV 10/09/17 10:59 PRN PRN Hypotension during Dialysis Insulin Aspart 1 vial 10/06/17 16:30 10/09/17 06:10 Novolog Vial Sliding Scale - SQ Not Given BIDAC [facility] Protocol Levothyroxine Sodium 75 mcg 10/04/17 07:00 10/09/17 06:05 Synthroid - PO 75 mcg DAILY@0700 [facility] Administration Melatonin 5 mg 10/03/17 22:00 10/07/17 21:18 Melatonin PO 5 mg HS PRN Administration INSOMNIA Metoprolol Succinate 12.5 mg 10/04/17 10:00 10/09/17 10:01 Toprol Xl - PO Not Given DAILY [facility] Morphine Sulfate 10 mg 10/04/17 10:00 10/09/17 09:53 Morphine 10 Mg/5 Ml Liquid PO 10 mg BID [facility] Administration Multivit/Ca Carb/B Cmplx/FA/Prenat 1 tablet 10/04/17 10:00 10/09/17 10:01 Nephro-Fer - PO 1 tablet DAILY [facility] Administration Sacubitril/Valsartan 1 tab 10/04/17 22:00 10/08/17 22:55 Entresto 24 Mg-26 Mg Tablet PO 1 tab BID [facility] Administration Senna 2 tab 10/03/17 22:00 10/08/17 21:25 Senna - PO 2 tab HS [facility] Administration Senna/Docusate Sodium 1 tablet 10/04/17 10:00 10/09/17 10:00 Pericolace - PO 1 tablet DAILY [facility] Administration Thiamine HCl 100 mg 10/04/17 10:00 10/09/17 10:01 Vitamin B1 - PO 100 mg DAILY [facility] Administration Warfarin Sodium 5 mg 10/09/17 18:00 Coumadin - PO DAILY@1800 [facility] Impression 1. ESRD 2. hx pericardial effusion 3. hx pneumopericardium 4. hypothyroidism 5. a-fib 6. hypotension 7. hx of colon cancer 8. CHF 9. DM 10. hx of PE 11. CAD 12. foot ulcer Plan - HD today - HD again in am - cont wound care - pt remains overloaded - podiatry/vascular follow up - monitor bp - will follow Dr Conklin
[2017-10-09] MEDS: WARFARIN NA 5 MG TABLET (UD) PO SCH (17:59)
[2017-10-09] MEDS ORDERED: SODIUM CHLORIDE 250 ML IV PRN (18:44)
--- NOTE | 2017-10-09 19:57 | PN ---
Progress Note (short form) - Note Progress Note: FUV right foot today. Seen in dialysis. VSS. Tmax 97.5 +wound vac in place, drainage noted, wbc=3.9 necrosis edges of tma Pt had study done today. To be interpeted. Awaiting Dr. Cope ok to proceed with debridement/revision. Agree that if after next revision toe does not survive a formal TMA will be performed. Patient does want to try to save big toe for balance reasons. Continue vac. Santyl left heel.
[2017-10-09] MEDS: MELATONIN 5 MG TABLETS PO PRN (21:44)
[2017-10-09] MEDS: SENNOSIDES 8.6MG TABLET (FP) PO SCH (21:45)
[2017-10-09] MEDS: COLLAGENASE CLOSTRIDIUM HIST. 30 GRAMS TUBE TP SCH (22:33)
[2017-10-10] MEDS ORDERED: PIPERACILLIN/TAZOBACTAM 2.25 GM VIAL IVPB ONE ×3 (01:13→17:36)
[2017-10-10] MEDS ORDERED: DEXTROSE 5%-WATER - 50 ML IVPB ONE ×3 (01:13→17:37)
[2017-10-10] MEDS: PIPERACILLIN/TAZOB 2.25 GM 2.25 GM in DEXTROSE 5%-WATER - 50 ML IVPB SCH ×3 (01:34→17:42)
[2017-10-10] MEDS: oxyCODONE HCL 5 MG TABLET PO PRN (01:40)
[2017-10-10] MEDS: ACETAMINOPHEN 325 MG TABLET (FP) PO PRN (01:43)
[2017-10-10] MEDS ORDERED: PT OWN MED DRAWER 7, Y5N ONE ×4 (05:39→23:54)
[2017-10-10] MEDS: INSULIN SLIDING SCALE (NOVOLOG) 1 VIAL SQ SCH ×2 (07:02→17:04)
[2017-10-10] MEDS: LEVOTHYROXINE NA 75 MCG TABLET (FP) PO SCH ×2 (07:33→10:01)
[2017-10-10] MEDS: SACUBITRIL/VALSARTAN 24 MG-26 MG TABLET PO SCH (09:46)
[2017-10-10] MEDS: morphine SULFATE 10 MG/5 ML UNIT-DOSE CUP PO SCH (09:46)
[2017-10-10] MEDS: SENNOSIDES/DOCUSATE COMBO (SENNA PLUS) TABLET (UD) PO SCH (09:47)
[2017-10-10] MEDS: CLOPIDOGREL BISULFATE 75 MG TABLET (FP) PO SCH (09:47)
[2017-10-10] MEDS: THIAMINE HCL 100 MG TABLET (FP) PO SCH (09:47)
[2017-10-10] MEDS: metoPROLOL SUCCINATE 25 MG TAB.SR.24H (FP) PO SCH (09:47)
[2017-10-10] MEDS: VITAMIN B COMP W-C 1 EA TABLET PO SCH (09:48)
--- NOTE | 2017-10-10 09:51 | PN ---
Progress Note (short form) - Note Progress Note: pt seen/ examined podiatry f/u noted afebrile . Told by nursing staff that Coumadin held yesterday !- In anticipation of procedure pt comfortable pain ok Vital Signs Temp 97.4 F L 10/10/17 09:18 Pulse 77 10/10/17 09:18 Resp 20 10/10/17 09:18 BP 126/54 10/10/17 09:18 Pulse Ox 95 10/09/17 20:22 Intake & Output 10/09/17 10/09/17 10/10/17 11:59 23:59 11:59 Intake Total 400 250 150 Balance 400 250 150 Weight 227 lb 223 lb 12.8 oz Intake: IVPB 100 Oral 300 250 150 Other: Voiding Method Toilet Toilet Toilet # Unmeasured Voids Void 0 Bowel Movement No Weight Measurement Method Standing Scale Chair Scale Active Medications Acetaminophen (Tylenol -) 325 mg PO Q8H PRN PRN Reason: PAIN LEVEL 7 - 10 Last Admin: 10/10/17 01:43 Dose: 325 mg Albumin Human (Albumin Human 25%) 12.5 gm IVPB Q30M [facility] Clopidogrel Bisulfate (Plavix -) 75 mg PO DAILY [facility] Last Admin: 10/09/17 10:00 Dose: 75 mg Collagenase (Santyl -) 1 applic TP DAILY [facility]; Protocol Last Admin: 10/09/17 22:33 Dose: Not Given Diphenhydramine HCl (Benadryl -) 25 mg PO Q8H PRN PRN Reason: ITCHING Last Admin: 10/09/17 21:44 Dose: 25 mg Epoetin Hector (Epogen -) 6,000 unit IVPUSH ONCE ONE Stop: 10/10/17 14:25 Piperacillin Sod/Tazobactam (Sod 2.25 gm/ Dextrose) 50 mls @ 100 mls/hr IVPB Q8H-IV [facility]; Protocol Last Admin: 10/10/17 01:34 Dose: 100 mls/hr Sodium Chloride (Normal Saline -) 250 mls @ 3,000 mls/hr IV PRN PRN PRN Reason: Hypotension during Dialysis Sodium Chloride (Normal Saline -) 250 mls @ 3,000 mls/hr IV PRN PRN PRN Reason: Hypotension during Dialysis Stop: 10/10/17 14:24 Insulin Aspart (Novolog Vial Sliding Scale -) [facility] Last Admin: 10/10/17 07:02 Dose: Not Given Levothyroxine Sodium (Synthroid -) 75 mcg PO DAILY@0700 [facility] Last Admin: 10/10/17 07:33 Dose: Not Given Melatonin (Melatonin) 5 mg PO HS PRN PRN Reason: INSOMNIA Last Admin: 10/09/17 21:44 Dose: 5 mg Metoprolol Succinate (Toprol Xl -) 12.5 mg PO DAILY [facility] Last Admin: 10/09/17 10:01 Dose: Not Given Morphine Sulfate (Morphine 10 Mg/5 Ml Liquid) 10 mg PO BID [facility] Last Admin: 10/09/17 21:45 Dose: 10 mg Multivit/Ca Carb/B Cmplx/FA/Prenat (Nephro-Fer -) 1 tablet PO DAILY [facility] Last Admin: 10/09/17 10:01 Dose: 1 tablet Oxycodone HCl (Roxicodone -) 5 mg PO Q8H PRN PRN Reason: PAIN 7-10 Last Admin: 10/10/17 01:40 Dose: 5 mg Sacubitril/Valsartan (Entresto 24 Mg-26 Mg Tablet) 1 tab PO BID [facility] Last Admin: 10/09/17 21:23 Dose: Not Given Senna (Senna -) 2 tab PO HS [facility] Last Admin: 10/09/17 21:45 Dose: 2 tab Senna/Docusate Sodium (Pericolace -) 1 tablet PO DAILY [facility] Last Admin: 10/09/17 10:00 Dose: 1 tablet Thiamine HCl (Vitamin B1 -) 100 mg PO DAILY [facility] Last Admin: 10/09/17 10:01 Dose: 100 mg Warfarin Sodium (Coumadin -) 5 mg PO DAILY@1800 [facility] Last Admin: 10/09/17 17:59 Dose: Not Given CBC, BMP 10/07/17 10:15 10/07/17 10:15 Physical Exam. Alert/ awake. Pleasant . neck: Yes: WNL, Supple, Trachea Midline Cardiovascular: Yes: Pulse regular, S1, S2 Respiratory: Yes: WNL, Regular, CTA Bilaterally, On Nasal O2 Gastrointestinal: Yes: Normal Bowel Sounds, Soft Vac placed A/P Right foor cellulitis DM CHF S/P right posterior tibial artery re-vascularization and subsequent foot amputation digit-2-5 afib PE Colon ca- s/p resection peripheral neuropathy ESRD on HD Continue antibiotics per ID rate controlled with BB, A/C per inr-- Discussed with nursing staff-- Advised not to hold unless specifically told by me or surgeon and let me know BGM monitoring-- under control-- change to bid continue other meds will discuss with podiatry and vascular will follow Problem List - Problems (1) Cellulitis Code(s): L03.90 - CELLULITIS, UNSPECIFIED Qualifiers: Site of cellulitis: extremity Site of cellulitis of extremity: lower extremity Laterality: right Qualified Code(s): L03.115 - Cellulitis of right lower limb (2) Diabetic foot ulcer Code(s): E11.621 - TYPE 2 DIABETES MELLITUS WITH FOOT ULCER; L97.509 - NON- PRESSURE CHRONIC ULCER OTH PRT UNSP FOOT W UNSP SEVERITY (3) Amputated toe of right foot Code(s): Z89.421 - ACQUIRED ABSENCE OF OTHER RIGHT TOE(S) (4) Atrial fibrillation Code(s): I48.91 - UNSPECIFIED ATRIAL FIBRILLATION Qualifiers: Atrial fibrillation type: permanent Qualified Code(s): I48.2 - Chronic atrial fibrillation (5) Cardiomyopathy Code(s): I42.9 - CARDIOMYOPATHY, UNSPECIFIED Qualifiers: Cardiomyopathy type: unspecified Qualified Code(s): I42.9 - Cardiomyopathy , unspecified (6) Chronic anticoagulation Code(s): Z79.01 - FERRULER (CURRENT) USE OF 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
[2017-10-10] MEDS: diphenhydrAMINE HCL 25 MG CAPSULE (FP) PO PRN (10:01)
--- NOTE | 2017-10-10 12:42 | PN ---
Progress Note (short form) - Note Progress Note: Chief Complaint: Events noted, notes reviewed, denies any chest pain or dyspnea , resting in bed History of Present Illness: Seen and examined. Events noted, notes reviewed, denies any chest pain or dyspnea, resting in bed Echocardiography dated 09/12/2017 revealed moderate pericardial effusion, no tamponade, mildly dilated LV with severely decreased LV fxn, mild-mod dilated RV with severely decreased RV fxn, mod-severe MUKUL, mild MR, mild-mod TR, mild AR Echocardiography dated 10/05/2017 revealed moderately dilated with severely decreased LV fxn, RV dilated with severely decreased RV fxn, mod LAE, mild MR, mod TR, mild AR, mod pericardial effusion similar to previous Echocardiography dated 08/11/2017 revealed mildly dilated LV with severely decreased LV function, mild-moderately dilated RV with moderately decreased RV function, moderate LAE, mild MR, TR, AR, moderate pericardial effusion with evidence of cardiac tamponade Lexiscan MPI study dated 11/11/2016 revealed large VA involving apex, inferior wall, infero-lateral small area mild royce-infarct ischemia mid anterior wall, dilated severely decreased LVEF 26, RV dilated - Current Medication List Current Medications Acetaminophen (Tylenol -) 325 mg PO Q8H PRN PRN Reason: PAIN LEVEL 7 - 10 Last Admin: 10/10/17 01:43 Dose: 325 mg Albumin Human (Albumin Human 25%) 12.5 gm IVPB Q30M [facility] Clopidogrel Bisulfate (Plavix -) 75 mg PO DAILY [facility] Last Admin: 10/10/17 09:47 Dose: 75 mg Collagenase (Santyl -) 1 applic TP DAILY [facility]; Protocol Last Admin: 10/09/17 22:33 Dose: Not Given Diphenhydramine HCl (Benadryl -) 25 mg PO Q8H PRN PRN Reason: ITCHING Last Admin: 10/10/17 10:01 Dose: 25 mg Epoetin Hector (Epogen -) 6,000 unit IVPUSH ONCE ONE Stop: 10/10/17 14:25 Piperacillin Sod/Tazobactam (Sod 2.25 gm/ Dextrose) 50 mls @ 100 mls/hr IVPB Q8H-IV [facility]; Protocol Last Admin: 10/10/17 09:45 Dose: 100 mls/hr Sodium Chloride (Normal Saline -) 250 mls @ 3,000 mls/hr IV PRN PRN PRN Reason: Hypotension during Dialysis Sodium Chloride (Normal Saline -) 250 mls @ 3,000 mls/hr IV PRN PRN PRN Reason: Hypotension during Dialysis Stop: 10/10/17 14:24 Insulin Aspart ([facility] Sliding [facility] -) [facility] Protocol Last Admin: 10/10/17 07:02 Dose: Not Given Levothyroxine Sodium (Synthroid -) 75 mcg PO DAILY@0700 [facility] Last Admin: 10/10/17 10:01 Dose: 75 mcg Melatonin (Melatonin) 5 mg PO HS PRN PRN Reason: INSOMNIA Last Admin: 10/09/17 21:44 Dose: 5 mg Metoprolol Succinate (Toprol Xl -) 12.5 mg PO DAILY [facility] Last Admin: 10/10/17 09:47 Dose: 12.5 mg Morphine Sulfate (Morphine 10 Mg/5 Ml Liquid) 10 mg PO BID [facility] Last Admin: 10/10/17 09:46 Dose: 10 mg Multivit/Ca Carb/B Cmplx/FA/Prenat (Nephro-Fer -) 1 tablet PO DAILY [facility] Last Admin: 10/10/17 09:48 Dose: 1 tablet Oxycodone HCl (Roxicodone -) 5 mg PO Q8H PRN PRN Reason: PAIN 7-10 Last Admin: 10/10/17 01:40 Dose: 5 mg Sacubitril/Valsartan (Entresto 24 Mg-26 Mg Tablet) 1 tab PO BID [facility] Last Admin: 10/10/17 09:46 Dose: 1 tab Senna (Senna -) 2 tab PO HS [facility] Last Admin: 10/09/17 21:45 Dose: 2 tab Senna/Docusate Sodium (Pericolace -) 1 tablet PO DAILY [facility] Last Admin: 10/10/17 09:47 Dose: 1 tablet Thiamine HCl (Vitamin B1 -) 100 mg PO DAILY [facility] Last Admin: 10/10/17 09:47 Dose: 100 mg Warfarin Sodium (Coumadin -) 5 mg PO DAILY@1800 [facility] Last Admin: 10/09/17 17:59 Dose: Not Given - Objective Vital Signs: Last Vital Signs Temp Pulse Resp BP Pulse Ox 97.4 F L 77 20 126/54 95 10/10/17 09:18 10/10/17 09:18 10/10/17 09:18 10/10/17 09:18 10/09/17 20:22 Intake & Output 10/07/17 10/08/17 10/09/17 10/10/17 23:59 23:59 23:59 23:59 Intake Total 650 750 650 150 Balance 650 750 650 150 Weight 225 lb 11.2 oz 222 lb 14.4 oz 227 lb 223 lb HEENT: Atraumatic Neck: Supple Negative JVD Cardiovascular: S1 S2 Regular Rate and Rhythm Respiratory: CTA Bilaterally Gastrointestinal: Soft benign Normal Bowel Sounds Ext: Trace Edema Dressing in Situ Labs: CBC, BMP 10/07/17 10:15 10/07/17 10:15 INR, PTT INR 2.37 (0.83-1.09) H 10/09/17 06:55 ASSESSMENT and PLAN: ASSESSMENT: 1. Peripheral artery disease and gangrene right forefoot post right tibial revacularization and debridement of bone and soft tissue with transmetatarsal amputation for intervention 2. Ischemic dilated cardiomyopathy with chronic class I-II NYHA classification LV failure, compensated/euvolemic, post prophylactic ICD implant 3. CAD post VA with evidence of demand ischemic injury angina pectoris, clinically stable 4. Persistent atrial fibrillation [id number] score of 3-4 on Coumadin 5. Pericardial effusion probably uremic pericarditis, moderate in severity/ unchanged 6. 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 7. Hypothyroidism 8. History of PTE 9. ESRD 10. History of colon cancer PLAN: 1. Antibiotics as per the primary team 2. HD as per renal service 3. Continue Coumadin as per INR with close monitoring of CBC, unless surgical intervention is planned at which point to hold Coumadin 4. Continue Toprol XL and titrate as hemodynamics permit/tolerate 5. Continue Entresto and titrate as hemodynamics permit/tolerate Rafaela Aguilar MD
[2017-10-10] MEDS: COLLAGENASE CLOSTRIDIUM HIST. 30 GRAMS TUBE TP SCH (12:46)
--- NOTE | 2017-10-10 13:52 | PN ---
Progress Note, Physician History of Present Illness: stable no new issues plan for procedure - Current Medication List Current Medications: Active Medications Acetaminophen (Tylenol -) 325 mg PO Q8H PRN PRN Reason: PAIN LEVEL 7 - 10 Last Admin: 10/10/17 01:43 Dose: 325 mg Albumin Human (Albumin Human 25%) 12.5 gm IVPB Q30M [facility] Clopidogrel Bisulfate (Plavix -) 75 mg PO DAILY [facility] Last Admin: 10/10/17 09:47 Dose: 75 mg Collagenase (Santyl -) 1 applic TP DAILY [facility]; Protocol Last Admin: 10/10/17 12:46 Dose: 1 applic Diphenhydramine HCl (Benadryl -) 25 mg PO Q8H PRN PRN Reason: ITCHING Last Admin: 10/10/17 10:01 Dose: 25 mg Epoetin Hector (Epogen -) 6,000 unit IVPUSH ONCE ONE Stop: 10/10/17 14:25 Piperacillin Sod/Tazobactam (Sod 2.25 gm/ Dextrose) 50 mls @ 100 mls/hr IVPB Q8H-IV [facility]; Protocol Last Admin: 10/10/17 09:45 Dose: 100 mls/hr Sodium Chloride (Normal Saline -) 250 mls @ 3,000 mls/hr IV PRN PRN PRN Reason: Hypotension during Dialysis Sodium Chloride (Normal Saline -) 250 mls @ 3,000 mls/hr IV PRN PRN PRN Reason: Hypotension during Dialysis Stop: 10/10/17 14:24 Insulin Aspart (Novolog Vial Sliding Scale -) 1 vial SQ BIDAC [facility]; Protocol Last Admin: 10/10/17 07:02 Dose: Not Given Levothyroxine Sodium (Synthroid -) 75 mcg PO DAILY@0700 [facility] Last Admin: 10/10/17 10:01 Dose: 75 mcg Melatonin (Melatonin) 5 mg PO HS PRN PRN Reason: INSOMNIA Last Admin: 10/09/17 21:44 Dose: 5 mg Metoprolol Succinate (Toprol Xl -) 12.5 mg PO DAILY [facility] Last Admin: 10/10/17 09:47 Dose: 12.5 mg Morphine Sulfate (Morphine 10 Mg/5 Ml Liquid) 10 mg PO BID [facility] Last Admin: 10/10/17 09:46 Dose: 10 mg Multivit/Ca Carb/B Cmplx/FA/Prenat (Nephro-Fer -) 1 tablet PO DAILY [facility] Last Admin: 10/10/17 09:48 Dose: 1 tablet Oxycodone HCl (Roxicodone -) 5 mg PO Q8H PRN PRN Reason: PAIN 7-10 Last Admin: 10/10/17 01:40 Dose: 5 mg Sacubitril/Valsartan (Entresto 24 Mg-26 Mg Tablet) 1 tab PO BID [facility] Last Admin: 10/10/17 09:46 Dose: 1 tab Senna (Senna -) 2 tab PO HS [facility] Last Admin: 10/09/17 21:45 Dose: 2 tab Senna/Docusate Sodium (Pericolace -) 1 tablet PO DAILY [facility] Last Admin: 10/10/17 09:47 Dose: 1 tablet Thiamine HCl (Vitamin B1 -) 100 mg PO DAILY [facility] Last Admin: 10/10/17 09:47 Dose: 100 mg Warfarin Sodium (Coumadin -) 5 mg PO DAILY@1800 [facility] Last Admin: 10/09/17 17:59 Dose: Not Given - Objective Vital Signs: Vital Signs Temperature 97.5 F L 10/10/17 13:15 Pulse Rate 66 10/10/17 13:15 Respiratory Rate 18 10/10/17 13:15 Blood Pressure 113/67 10/10/17 13:15 O2 Sat by Pulse Oximetry (%) 95 10/09/17 20:22 Constitutional: Yes: No Distress, Calm Cardiovascular: Yes: Regular Rate and Rhythm Respiratory: Yes: Regular, CTA Bilaterally Gastrointestinal: Yes: Normal Bowel Sounds, Soft Musculoskeletal: Yes: WNL Extremities: Yes: Other Neurological: Yes: Alert, Oriented Psychiatric: Yes: Alert, Oriented Labs: CBC, BMP 10/07/17 10:15 10/07/17 10:15 INR, PTT INR 2.37 (0.83-1.09) H 10/09/17 06:55 Assessment/Plan Problem List - Problems (1) Diabetic foot ulcer Code(s): E11.621 - TYPE 2 DIABETES MELLITUS WITH FOOT ULCER; L97.509 - NON- PRESSURE CHRONIC ULCER OTH PRT UNSP FOOT W UNSP SEVERITY (2) Amputated toe of right foot Code(s): Z89.421 - ACQUIRED ABSENCE OF OTHER RIGHT TOE(S) (3) Cellulitis of right lower extremity Code(s): L03.115 - CELLULITIS OF RIGHT LOWER LIMB (4) Anemia Code(s): D64.9 - ANEMIA, UNSPECIFIED Qualifiers: Anemia type: due to chronic kidney disease (5) Atrial fibrillation Code(s): I48.91 - UNSPECIFIED ATRIAL FIBRILLATION Qualifiers: Atrial fibrillation type: permanent Qualified Code(s): I48.2 - Chronic atrial fibrillation (6) Chronic anticoagulation Code(s): Z79.01 - ARMORED CAR GUARD (CURRENT) USE OF 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 (7) 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 Code(s): E11.9 - TYPE 2 DIABETES MELLITUS WITHOUT COMPLICATIONS Qualifiers: 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 type: type 2 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 ferry terminal agent insulin use: without ferry terminal agent use 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 complication status: without complication Qualified Code(s): E11.9 - Type 2 diabetes mellitus without complications (8) ESRD (end stage renal disease) Code(s): N18.6 - END STAGE RENAL DISEASE (9) HTN (hypertension) Code(s): I10 - ESSENTIAL (PRIMARY) HYPERTENSION Qualifiers: Hypertension type: essential hypertension Qualified Code(s): I10 - Essential (primary) hypertension (10) Hypothyroid Code(s): E03.9 - HYPOTHYROIDISM, UNSPECIFIED Qualifiers: Hypothyroidism type: unspecified Qualified Code(s): E03.9 - Hypothyroidism , unspecified Assessment/Plan This is a 72 y/o man Admitted for Cellulitis of the Right Foot, Diabetic Wound Infection for further evaluation of their emergent condition. plan continue abx plan for surgery today will decide after that rest as per the team
--- NOTE | 2017-10-10 16:45 | PN ---
Progress Note, Physician History of Present Illness: Pt seen and examined at bedside. He is awake and alert. He denies chest pain or shortness of breath. He does complains of lower ext edema. - Current Medication List Current Medications: Active Medications Acetaminophen (Tylenol -) 325 mg PO Q8H PRN PRN Reason: PAIN LEVEL 7 - 10 Last Admin: 10/10/17 01:43 Dose: 325 mg Albumin Human (Albumin Human 25%) 12.5 gm IVPB Q30M [facility] Clopidogrel Bisulfate (Plavix -) 75 mg PO DAILY [facility] Last Admin: 10/10/17 09:47 Dose: 75 mg Collagenase (Santyl -) 1 applic TP DAILY [facility]; Protocol Last Admin: 10/10/17 12:46 Dose: 1 applic Diphenhydramine HCl (Benadryl -) 25 mg PO Q8H PRN PRN Reason: ITCHING Last Admin: 10/10/17 10:01 Dose: 25 mg Epoetin Hector (Epogen -) 6,000 unit IVPUSH ONCE ONE Stop: 10/10/17 14:25 Piperacillin Sod/Tazobactam (Sod 2.25 gm/ Dextrose) 50 mls @ 100 mls/hr IVPB Q8H-IV [facility]; Protocol Last Admin: 10/10/17 09:45 Dose: 100 mls/hr Sodium Chloride (Normal Saline -) 250 mls @ 3,000 mls/hr IV PRN PRN PRN Reason: Hypotension during Dialysis Sodium Chloride (Normal Saline -) 250 mls @ 3,000 mls/hr IV PRN PRN PRN Reason: Hypotension during Dialysis Stop: 10/10/17 14:24 Insulin Aspart (Novolog Vial Sliding Scale -) 1 vial SQ [facility]IDAC [facility]; Protocol Last Admin: 10/10/17 07:02 Dose: Not Given Levothyroxine Sodium (Synthroid -) 75 mcg PO DAILY@0700 [facility] Last Admin: 10/10/17 10:01 Dose: 75 mcg Melatonin (Melatonin) 5 mg PO HS PRN PRN Reason: INSOMNIA Last Admin: 10/09/17 21:44 Dose: 5 mg Metoprolol Succinate (Toprol Xl -) 12.5 mg PO DAILY [facility] Last Admin: 10/10/17 09:47 Dose: 12.5 mg Morphine Sulfate (Morphine 10 Mg/5 Ml Liquid) 10 mg PO BID [facility] Last Admin: 10/10/17 09:46 Dose: 10 mg Multivit/Ca Carb/B Cmplx/FA/Prenat (Nephro-Fer -) 1 tablet PO DAILY [facility] Last Admin: 10/10/17 09:48 Dose: 1 tablet Oxycodone HCl (Roxicodone -) 5 mg PO Q8H PRN PRN Reason: PAIN 7-10 Last Admin: 10/10/17 01:40 Dose: 5 mg Sacubitril/Valsartan (Entresto 24 Mg-26 Mg Tablet) 1 tab PO BID [facility] Last Admin: 10/10/17 09:46 Dose: 1 tab Senna (Senna -) 2 tab PO HS [facility] Last Admin: 10/09/17 21:45 Dose: 2 tab Senna/Docusate Sodium (Pericolace -) 1 tablet PO DAILY [facility] Last Admin: 10/10/17 09:47 Dose: 1 tablet Thiamine HCl (Vitamin B1 -) 100 mg PO DAILY [facility] Last Admin: 10/10/17 09:47 Dose: 100 mg Warfarin Sodium (Coumadin -) 5 mg PO DAILY@1800 [facility] Last Admin: 10/09/17 17:59 Dose: Not Given - Objective Vital Signs: Vital Signs Temperature 97.5 F L 10/10/17 13:15 Pulse Rate 66 10/10/17 13:15 Respiratory Rate 18 10/10/17 13:15 Blood Pressure 113/67 10/10/17 13:15 O2 Sat by Pulse Oximetry (%) 97 10/10/17 09:00 Constitutional: Yes: Calm Eyes: Yes: Conjunctiva Clear HENT: Yes: Atraumatic Cardiovascular: Yes: S1, S2 Respiratory: Yes: On Nasal O2 Gastrointestinal: Yes: Soft Genitourinary: Yes: WNL Musculoskeletal: Yes: WNL Edema: Yes Edema: LLE: 2+, RLE: 2+ Wound/Incision: Yes: Other (wound vac) Neurological: Yes: Oriented Psychiatric: Yes: Oriented Labs: CBC, BMP 10/07/17 10:15 10/07/17 10:15 INR, PTT INR 2.37 (0.83-1.09) H 10/09/17 06:55 Problem List - Problems (1) Cellulitis Code(s): L03.90 - CELLULITIS, UNSPECIFIED Qualifiers: Site of cellulitis: extremity Site of cellulitis of extremity: lower extremity Laterality: right Qualified Code(s): L03.115 - Cellulitis of right lower limb (2) Diabetic foot ulcer Code(s): E11.621 - TYPE 2 DIABETES MELLITUS WITH FOOT ULCER; L97.509 - NON- PRESSURE CHRONIC ULCER OTH PRT UNSP FOOT W UNSP SEVERITY (3) Anemia Code(s): D64.9 - ANEMIA, UNSPECIFIED Qualifiers: Anemia type: due to chronic kidney disease (4) Atrial fibrillation Code(s): I48.91 - UNSPECIFIED ATRIAL FIBRILLATION Qualifiers: Atrial fibrillation type: permanent Qualified Code(s): I48.2 - Chronic atrial fibrillation (5) ESRD (end stage renal disease) Code(s): N18.6 - END STAGE RENAL DISEASE Assessment/Plan Current Medications Generic Name Dose Route Start Last Admin Trade Name Freq PRN Reason Stop Dose Admin Acetaminophen 325 mg 10/04/17 05:13 10/10/17 01:43 Tylenol - PO 325 mg Q8H PRN Administration PAIN LEVEL 7 - 10 Albumin Human 12.5 gm 10/10/17 14:30 Albumin Human 25% IVPB Q30M [facility] Clopidogrel Bisulfate 75 mg 10/04/17 10:00 10/10/17 09:47 Plavix - PO 75 mg DAILY [facility] Administration Collagenase 1 applic 10/04/17 10:00 10/10/17 12:46 Santyl - TP 1 applic DAILY [facility] Administration Protocol Diphenhydramine HCl 25 mg 10/04/17 11:51 10/10/17 10:01 Benadryl - PO 25 mg Q8H PRN Administration ITCHING Epoetin Hector 6,000 unit 10/10/17 14:24 Epogen - IVPUSH 10/10/17 14:25 ONCE ONE Piperacillin Sod/Tazobactam 50 mls @ 100 mls/hr 10/04/17 12:30 10/10/17 09:45 Sod 2.25 gm/ Dextrose IVPB 100 mls/hr Q8H-IV [facility] Administration Protocol Sodium Chloride 250 mls @ 3,000 mls/hr 10/07/17 10:55 Normal Saline - IV PRN PRN Hypotension during Dialysis Sodium Chloride 250 mls @ 3,000 mls/hr 10/09/17 14:24 Normal Saline - IV 10/10/17 14:24 PRN PRN Hypotension during Dialysis Insulin Aspart 1 vial 10/06/17 16:30 10/10/17 07:02 Novolog Vial Sliding Scale - SQ Not Given BIDAC [facility] Protocol Levothyroxine Sodium 75 mcg 10/04/17 07:00 10/10/17 10:01 Synthroid - PO 75 mcg DAILY@0700 [facility] Administration Melatonin 5 mg 10/03/17 22:00 10/09/17 21:44 Melatonin PO 5 mg HS PRN Administration INSOMNIA Metoprolol Succinate 12.5 mg 10/04/17 10:00 10/10/17 09:47 Toprol Xl - PO 12.5 mg DAILY [facility] Administration Morphine Sulfate 10 mg 10/04/17 10:00 10/10/17 09:46 Morphine 10 Mg/5 Ml Liquid PO 10 mg BID [facility] Administration Multivit/Ca Carb/B Cmplx/FA/Prenat 1 tablet 10/04/17 10:00 10/10/17 09:48 Nephro-Fer - PO 1 tablet DAILY [facility] Administration Oxycodone HCl 5 mg 10/09/17 16:07 10/10/17 01:40 Roxicodone - PO 5 mg Q8H PRN Administration PAIN 7-10 Sacubitril/Valsartan 1 tab 10/04/17 22:00 10/10/17 09:46 Entresto 24 Mg-26 Mg Tablet PO 1 tab BID [facility] Administration Senna 2 tab 10/03/17 22:00 10/09/17 21:45 Senna - PO 2 tab HS [facility] Administration Senna/Docusate Sodium 1 tablet 10/04/17 10:00 10/10/17 09:47 Pericolace - PO 1 tablet DAILY [facility] Administration Thiamine HCl 100 mg 10/04/17 10:00 10/10/17 09:47 Vitamin B1 - PO 100 mg DAILY [facility] Administration Warfarin Sodium 5 mg 10/09/17 18:00 10/09/17 17:59 Coumadin - PO Not Given DAILY@1800 [facility] Impression 1. ESRD 2. hx pericardial effusion 3. hx pneumopericardium 4. hypothyroidism 5. a-fib 6. hypotension 7. hx of colon cancer 8. CHF 9. DM 10. hx of PE 11. CAD 12. foot ulcer Plan - HD again today for volumes removal - pt getting HD later tonight secondary to scheduling problems - cont wound care - pt remains overloaded - monitor bp - will follow Dr Conklin
[2017-10-10] MEDS: WARFARIN NA 5 MG TABLET (UD) PO SCH (17:42)
--- NOTE | 2017-10-10 17:59 | PN ---
Progress Note, Physician Chief Complaint: Patient seen in bed with his health care proxy Mr. Ruiz present. History of Present Illness: chronic wound right foot with necrotic edges - Current Medication List Current Medications: Active Medications Acetaminophen (Tylenol -) 325 mg PO Q8H PRN PRN Reason: PAIN LEVEL 7 - 10 Last Admin: 10/10/17 01:43 Dose: 325 mg Albumin Human (Albumin Human 25%) 12.5 gm IVPB Q30M [facility] Clopidogrel Bisulfate (Plavix -) 75 mg PO DAILY [facility] Last Admin: 10/10/17 09:47 Dose: 75 mg Collagenase (Santyl -) 1 applic TP DAILY [facility]; Protocol Last Admin: 10/10/17 12:46 Dose: 1 applic Diphenhydramine HCl (Benadryl -) 25 mg PO Q8H PRN PRN Reason: ITCHING Last Admin: 10/10/17 10:01 Dose: 25 mg Epoetin Hector (Epogen -) 6,000 unit IVPUSH ONCE ONE Stop: 10/10/17 14:25 Piperacillin Sod/Tazobactam (Sod 2.25 gm/ Dextrose) 50 mls @ 100 mls/hr IVPB Q8H-IV [facility]; Protocol Last Admin: 10/10/17 17:42 Dose: 100 mls/hr Sodium Chloride (Normal Saline -) 250 mls @ 3,000 mls/hr IV PRN PRN PRN Reason: Hypotension during Dialysis Sodium Chloride (Normal Saline -) 250 mls @ 3,000 mls/hr IV PRN PRN PRN Reason: Hypotension during Dialysis Stop: 10/10/17 14:24 Insulin Aspart (Novolog Vial Sliding Scale -) 1 vial SQ BIDAC [facility]; Protocol Last Admin: 10/10/17 17:04 Dose: Not Given Levothyroxine Sodium (Synthroid -) 75 mcg PO DAILY@0700 [facility] Last Admin: 10/10/17 10:01 Dose: 75 mcg Melatonin (Melatonin) 5 mg PO HS PRN PRN Reason: INSOMNIA Last Admin: 10/09/17 21:44 Dose: 5 mg Metoprolol Succinate (Toprol Xl -) 12.5 mg PO DAILY [facility] Last Admin: 10/10/17 09:47 Dose: 12.5 mg Morphine Sulfate (Morphine 10 Mg/5 Ml Liquid) 10 mg PO BID [facility] Last Admin: 10/10/17 09:46 Dose: 10 mg Multivit/Ca Carb/B Cmplx/FA/Prenat (Nephro-Fer -) 1 tablet PO DAILY [facility] Last Admin: 10/10/17 09:48 Dose: 1 tablet Oxycodone HCl (Roxicodone -) 5 mg PO Q8H PRN PRN Reason: PAIN 7-10 Last Admin: 10/10/17 01:40 Dose: 5 mg Sacubitril/Valsartan (Entresto 24 Mg-26 Mg Tablet) 1 tab PO BID [facility] Last Admin: 10/10/17 09:46 Dose: 1 tab Senna (Senna -) 2 tab PO HS [facility] Last Admin: 10/09/17 21:45 Dose: 2 tab Senna/Docusate Sodium (Pericolace -) 1 tablet PO DAILY [facility] Last Admin: 10/10/17 09:47 Dose: 1 tablet Thiamine HCl (Vitamin B1 -) 100 mg PO DAILY [facility] Last Admin: 10/10/17 09:47 Dose: 100 mg Warfarin Sodium (Coumadin -) 5 mg PO DAILY@1800 [facility] Last Admin: 10/10/17 17:42 Dose: 5 mg - Objective Vital Signs: Vital Signs Temperature 97.5 F L 10/10/17 13:15 Pulse Rate 65 10/10/17 17:47 Respiratory Rate 18 10/10/17 17:47 Blood Pressure 104/61 10/10/17 17:47 O2 Sat by Pulse Oximetry (%) 97 10/10/17 09:00 Labs: CBC, BMP 10/07/17 10:15 10/07/17 10:15 INR, PTT INR 2.37 (0.83-1.09) H 10/09/17 06:55 Assessment/Plan pvd chronic wound right Patient states that Dr. Cope said it all looks good about his vascular studies. Patient on OR schedule for for revision partial TMA. Continue wound vac. Will sg. Friend Betito Joseph present throughout visit. Discussed revisional surgery. Awaiting Dr. Copes note regarding proceeding on procedure. Re-consult Dr. Cope. \
[2017-10-10] MEDS ORDERED: EPOETIN ALFA 3,000 UNIT/1 ML ML IVPUSH ONE (19:00)
[2017-10-10] MEDS: ALBUMIN HUMAN 25% 12.5 GM/50 ML VIAL IVPB SCH ×4 (19:00→20:30)
[2017-10-10 20:05] LABS: HEMATOCRIT 32.7 % (35.4-49); HEMOGLOBIN 10.6 GM/dL (11.7-16.9); MCH 29.3 pg (25.7-33.7); MCHC 32.3 g/dl (32.0-35.9); MEAN CELL VOLUME 90.5 fl (80-96); MEAN PLT VOLUME 9.2 fl (7.5-11.1); PLATELET COUNT 207 K/MM3 (134-434); RBC 3.61 M/mm3 (4.00-5.60); RDW 18.1 % (11.9-15.9); WHITE BLOOD COUNT 3.7 K/mm3 (4.0-10.0)
[2017-10-10 20:39] LABS: ANION GAP 11 MMOL/L (8-16); BLOOD UREA NITROGEN 13 mg/dL (7-18); CALCIUM 8.9 mg/dL (8.5-10.1); CHLORIDE 93 mmol/L (98-107); CO2 28 mmol/L (21-32); CREATININE 5.6 mg/dL (0.7-1.3); GLUCOSE,RANDOM 117 mg/dL (74-106); POTASSIUM 3.3 mmol/L (3.5-5.1); SODIUM 132 mmol/L (136-145)
[2017-10-11] MEDS: SENNOSIDES 8.6MG TABLET (FP) PO SCH ×2 (00:18→21:15)
[2017-10-11] MEDS: diphenhydrAMINE HCL 25 MG CAPSULE (FP) PO PRN ×3 (00:18→21:16)
[2017-10-11] MEDS: MELATONIN 5 MG TABLETS PO PRN ×2 (00:18→21:16)
[2017-10-11] MEDS: morphine SULFATE 10 MG/5 ML UNIT-DOSE CUP PO SCH ×3 (00:19→21:15)
[2017-10-11] MEDS: SACUBITRIL/VALSARTAN 24 MG-26 MG TABLET PO SCH ×3 (00:20→21:14)
[2017-10-11] MEDS ORDERED: DEXTROSE 5%-WATER - 50 ML IVPB ONE ×3 (02:35→17:19)
[2017-10-11] MEDS ORDERED: PIPERACILLIN/TAZOBACTAM 2.25 GM VIAL IVPB ONE ×3 (02:35→17:19)
[2017-10-11] MEDS: PIPERACILLIN/TAZOB 2.25 GM 2.25 GM in DEXTROSE 5%-WATER - 50 ML IVPB SCH ×3 (02:49→17:50)
[2017-10-11] MEDS: INSULIN SLIDING SCALE (NOVOLOG) 1 VIAL SQ SCH ×2 (06:29→17:12)
[2017-10-11] MEDS: LEVOTHYROXINE NA 75 MCG TABLET (FP) PO SCH (06:29)
[2017-10-11] MEDS ORDERED: PT OWN MED DRAWER 7, Y5N ONE ×2 (06:50→20:23)
[2017-10-11 07:44] LABS: INR 1.93 (0.83-1.09); PROTHROMBIN TIME (PATIENT) 21.8 SEC (9.7-13.0)
[2017-10-11] MEDS: VITAMIN B COMP W-C 1 EA TABLET PO SCH (10:20)
[2017-10-11] MEDS: metoPROLOL SUCCINATE 25 MG TAB.SR.24H (FP) PO SCH (10:20)
[2017-10-11] MEDS: THIAMINE HCL 100 MG TABLET (FP) PO SCH (10:20)
[2017-10-11] MEDS: SENNOSIDES/DOCUSATE COMBO (SENNA PLUS) TABLET (UD) PO SCH (10:20)
[2017-10-11] MEDS: CLOPIDOGREL BISULFATE 75 MG TABLET (FP) PO SCH (10:21)
[2017-10-11] MEDS: COLLAGENASE CLOSTRIDIUM HIST. 30 GRAMS TUBE TP SCH (10:22)
--- NOTE | 2017-10-11 11:07 | PN ---
Progress Note (short form) - Note Progress Note: Patient seen and examined. Comfortable. Scheduled for partial TMA tomorrow. Podiatry follow-up noted Patient has no complaints Denies pain and denies chest pain or shortness of breath Afebrile INR, PTT INR 1.93 (0.83-1.09) H 10/11/17 07:05 Vital Signs Temp 97.8 F 10/11/17 06:03 Pulse 65 10/11/17 06:03 Resp 18 10/11/17 06:03 BP 108/53 10/11/17 06:03 Pulse Ox 96 10/11/17 01:04 Intake & Output 10/10/17 10/10/17 10/11/17 11:59 23:59 11:59 Intake Total 150 250 450 Balance 150 250 450 Weight 223 lb 218 lb 3 oz Intake: IVPB 100 Oral 150 150 450 Other: Voiding Method Toilet Toilet Toilet # Unmeasured Voids Void 0 Bowel Movement No Height 5 ft 10 in Body Mass Index (BMI) 32.0 Weight Measurement Method Chair Scale Active Medications Acetaminophen (Tylenol -) 325 mg PO Q8H PRN PRN Reason: PAIN LEVEL 7 - 10 Last Admin: 10/10/17 01:43 Dose: 325 mg Clopidogrel Bisulfate (Plavix -) 75 mg PO DAILY [facility] Last Admin: 10/11/17 10:21 Dose: 75 mg Collagenase (Santyl -) 1 applic TP DAILY [facility]; Protocol Last Admin: 10/11/17 10:22 Dose: 1 applic Diphenhydramine HCl (Benadryl -) 25 mg PO Q8H PRN PRN Reason: ITCHING Last Admin: 10/11/17 10:43 Dose: 25 mg Piperacillin Sod/Tazobactam (Sod 2.25 gm/ Dextrose) 50 mls @ 100 mls/hr IVPB Q8H-IV [facility]; Protocol Last Admin: 10/11/17 10:20 Dose: 100 mls/hr Sodium Chloride (Normal Saline -) 250 mls @ 3,000 mls/hr IV PRN PRN PRN Reason: Hypotension during Dialysis Insulin Aspart (Novolog Vial Sliding Scale -) 1 vial SQ BIDAC [facility]; Protocol Last Admin: 10/11/17 06:29 Dose: Not Given Levothyroxine Sodium (Synthroid -) 75 mcg PO DAILY@0700 [facility] Last Admin: 10/11/17 06:29 Dose: 75 mcg Melatonin (Melatonin) 5 mg PO HS PRN PRN Reason: INSOMNIA Last Admin: 10/11/17 00:18 Dose: 5 mg Metoprolol Succinate (Toprol Xl -) 12.5 mg PO DAILY [facility] Last Admin: 10/11/17 10:20 Dose: 12.5 mg Morphine Sulfate (Morphine 10 Mg/5 Ml Liquid) 10 mg PO BID [facility] Last Admin: 10/11/17 10:18 Dose: 10 mg Multivit/Ca Carb/B Cmplx/FA/Prenat (Nephro-Fer -) 1 tablet PO DAILY [facility] Last Admin: 10/11/17 10:20 Dose: 1 tablet Oxycodone HCl (Roxicodone -) 5 mg PO Q8H PRN PRN Reason: PAIN 7-10 Last Admin: 10/10/17 01:40 Dose: 5 mg Sacubitril/Valsartan (Entresto 24 Mg-26 Mg Tablet) 1 tab PO BID [facility] Last Admin: 10/11/17 10:21 Dose: 1 tab Senna (Senna -) 2 tab PO HS [facility] Last Admin: 10/11/17 00:18 Dose: 2 tab Senna/Docusate Sodium (Pericolace -) 1 tablet PO DAILY [facility] Last Admin: 10/11/17 10:20 Dose: 1 tablet Thiamine HCl (Vitamin B1 -) 100 mg PO DAILY [facility] Last Admin: 10/11/17 10:20 Dose: 100 mg Warfarin Sodium (Coumadin -) 5 mg PO DAILY@1800 [facility] Last Admin: 10/10/17 17:42 Dose: 5 mg CBC, BMP 10/10/17 19:45 10/10/17 19:45 Physical Exam. Alert/ awake. Pleasant . neck: Yes: WNL, Supple, Trachea Midline Cardiovascular: Yes: Pulse regular, S1, S2 Respiratory: Yes: WNL, Regular, CTA Bilaterally, On Nasal O2 Gastrointestinal: Yes: Normal Bowel Sounds, Soft Vac placed A/P Right foor cellulitis DM CHF S/P right posterior tibial artery re-vascularization and subsequent foot amputation digit-2-5 afib PE Colon ca- s/p resection peripheral neuropathy ESRD on HD For or tomorrow Reconsult vascular--- as per podiatry suggestion Continue other medications On Plavix Will hold Coumadin Patient also requesting letter for work--- that he is currently hospitalized--- will write and fax as requested Will follow Problem List - Problems (1) Cellulitis Code(s): L03.90 - CELLULITIS, UNSPECIFIED Qualifiers: Site of cellulitis: extremity Site of cellulitis of extremity: lower extremity Laterality: right Qualified Code(s): L03.115 - Cellulitis of right lower limb (2) Diabetic foot ulcer Code(s): E11.621 - TYPE 2 DIABETES MELLITUS WITH FOOT ULCER; L97.509 - NON- PRESSURE CHRONIC ULCER OTH PRT UNSP FOOT W UNSP SEVERITY (3) Amputated toe of right foot Code(s): Z89.421 - ACQUIRED ABSENCE OF OTHER RIGHT TOE(S) (4) Atrial fibrillation Code(s): I48.91 - UNSPECIFIED ATRIAL FIBRILLATION Qualifiers: Atrial fibrillation type: permanent Qualified Code(s): I48.2 - Chronic atrial fibrillation (5) Cardiomyopathy Code(s): I42.9 - CARDIOMYOPATHY, UNSPECIFIED Qualifiers: Cardiomyopathy type: unspecified Qualified Code(s): I42.9 - Cardiomyopathy , unspecified (6) Chronic anticoagulation Code(s): Z79.01 - [facility] (CURRENT) USE OF 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
[2017-10-11] MEDS ORDERED: SODIUM CHLORIDE 250 ML IV PRN (12:55)
--- NOTE | 2017-10-11 12:55 | PN ---
Progress Note, Physician History of Present Illness: Pt seen and examined at bedside. He is awake and alert. He denies shortness of breath. - Current Medication List Current Medications: Active Medications Acetaminophen (Tylenol -) 325 mg PO Q8H PRN PRN Reason: PAIN LEVEL 7 - 10 Last Admin: 10/10/17 01:43 Dose: 325 mg Clopidogrel Bisulfate (Plavix -) 75 mg PO DAILY [facility] Last Admin: 10/11/17 10:21 Dose: 75 mg Collagenase (Santyl -) 1 applic TP DAILY [facility]; Protocol Last Admin: 10/11/17 10:22 Dose: 1 applic Diphenhydramine HCl (Benadryl -) 25 mg PO Q8H PRN PRN Reason: ITCHING Last Admin: 10/11/17 10:43 Dose: 25 mg Piperacillin Sod/Tazobactam (Sod 2.25 gm/ Dextrose) 50 mls @ 100 mls/hr IVPB Q8H-IV [facility]; Protocol Last Admin: 10/11/17 10:20 Dose: 100 mls/hr Sodium Chloride (Normal Saline -) 250 mls @ 3,000 mls/hr IV PRN PRN PRN Reason: Hypotension during Dialysis Insulin Aspart (Novolog Vial Sliding Scale -) 1 vial SQ BIDAC [facility]; Protocol Last Admin: 10/11/17 06:29 Dose: Not Given Levothyroxine Sodium (Synthroid -) 75 mcg PO DAILY@0700 [facility] Last Admin: 10/11/17 06:29 Dose: 75 mcg Melatonin (Melatonin) 5 mg PO HS PRN PRN Reason: INSOMNIA Last Admin: 10/11/17 00:18 Dose: 5 mg Metoprolol Succinate (Toprol Xl -) 12.5 mg PO DAILY [facility] Last Admin: 10/11/17 10:20 Dose: 12.5 mg Morphine Sulfate (Morphine 10 Mg/5 Ml Liquid) 10 mg PO BID [facility] Last Admin: 10/11/17 10:18 Dose: 10 mg Multivit/Ca Carb/B Cmplx/FA/Prenat (Nephro-Fer -) 1 tablet PO DAILY [facility] Last Admin: 10/11/17 10:20 Dose: 1 tablet Oxycodone HCl (Roxicodone -) 5 mg PO Q8H PRN PRN Reason: PAIN 7-10 Last Admin: 10/10/17 01:40 Dose: 5 mg Sacubitril/Valsartan (Entresto 24 Mg-26 Mg Tablet) 1 tab PO BID [facility] Last Admin: 10/11/17 10:21 Dose: 1 tab Senna (Senna -) 2 tab PO HS [facility] Last Admin: 10/11/17 00:18 Dose: 2 tab Senna/Docusate Sodium (Pericolace -) 1 tablet PO DAILY [facility] Last Admin: 10/11/17 10:20 Dose: 1 tablet Thiamine HCl (Vitamin B1 -) 100 mg PO DAILY [facility] Last Admin: 10/11/17 10:20 Dose: 100 mg Warfarin Sodium (Coumadin -) 5 mg PO DAILY@1800 [facility] Last Admin: 10/10/17 17:42 Dose: 5 mg - Objective Vital Signs: Vital Signs Temperature 97.3 F L 10/11/17 10:00 Pulse Rate 66 10/11/17 10:00 Respiratory Rate 18 10/11/17 10:00 Blood Pressure 100/50 10/11/17 10:00 O2 Sat by Pulse Oximetry (%) 96 10/11/17 01:04 Constitutional: Yes: Calm Eyes: Yes: Conjunctiva Clear HENT: Yes: Atraumatic Cardiovascular: Yes: S1, S2 Respiratory: Yes: On Nasal O2 Gastrointestinal: Yes: Normal Bowel Sounds, Soft Genitourinary: Yes: WNL Musculoskeletal: Yes: WNL Edema: Yes Edema: LLE: 1+, RLE: 1+ Neurological: Yes: Oriented Psychiatric: Yes: Oriented Labs: CBC, BMP 10/10/17 19:45 10/10/17 19:45 INR, PTT INR 1.93 (0.83-1.09) H 10/11/17 07:05 Problem List - Problems (1) Cellulitis Code(s): L03.90 - CELLULITIS, UNSPECIFIED Qualifiers: Site of cellulitis: extremity Site of cellulitis of extremity: lower extremity Laterality: right Qualified Code(s): L03.115 - Cellulitis of right lower limb (2) Diabetic foot ulcer Code(s): E11.621 - TYPE 2 DIABETES MELLITUS WITH FOOT ULCER; L97.509 - NON- PRESSURE CHRONIC ULCER OTH PRT UNSP FOOT W UNSP SEVERITY (3) Anemia Code(s): D64.9 - ANEMIA, UNSPECIFIED Qualifiers: Anemia type: due to chronic kidney disease (4) Atrial fibrillation Code(s): I48.91 - UNSPECIFIED ATRIAL FIBRILLATION Qualifiers: Atrial fibrillation type: permanent Qualified Code(s): I48.2 - Chronic atrial fibrillation (5) ESRD (end stage renal disease) Code(s): N18.6 - END STAGE RENAL DISEASE Assessment/Plan Current Medications Generic Name Dose Route Start Last Admin Trade Name Freq PRN Reason Stop Dose Admin Acetaminophen 325 mg 10/04/17 05:13 10/10/17 01:43 Tylenol - PO 325 mg Q8H PRN Administration PAIN LEVEL 7 - 10 Clopidogrel Bisulfate 75 mg 10/04/17 10:00 10/11/17 10:21 Plavix - PO 75 mg DAILY [facility] Administration Collagenase 1 applic 10/04/17 10:00 10/11/17 10:22 Santyl - TP 1 applic DAILY [facility] Administration Protocol Diphenhydramine HCl 25 mg 10/04/17 11:51 10/11/17 10:43 Benadryl - PO 25 mg Q8H PRN Administration ITCHING Piperacillin Sod/Tazobactam 50 mls @ 100 mls/hr 10/04/17 12:30 10/11/17 10:20 Sod 2.25 gm/ Dextrose IVPB 100 mls/hr Q8H-IV [facility] Administration Protocol Sodium Chloride 250 mls @ 3,000 mls/hr 10/07/17 10:55 Normal Saline - IV PRN PRN Hypotension during Dialysis Insulin Aspart 1 vial 10/06/17 16:30 10/11/17 06:29 Novolog Vial Sliding Scale - SQ Not Given BIDAC [facility] Protocol Levothyroxine Sodium 75 mcg 10/04/17 07:00 10/11/17 06:29 Synthroid - PO 75 mcg DAILY@0700 [facility] Administration Melatonin 5 mg 10/03/17 22:00 10/11/17 00:18 Melatonin PO 5 mg HS PRN Administration INSOMNIA Metoprolol Succinate 12.5 mg 10/04/17 10:00 10/11/17 10:20 Toprol Xl - PO 12.5 mg DAILY [facility] Administration Morphine Sulfate 10 mg 10/04/17 10:00 10/11/17 10:18 Morphine 10 Mg/5 Ml Liquid PO 10 mg BID [facility] Administration Multivit/Ca Carb/B Cmplx/FA/Prenat 1 tablet 10/04/17 10:00 10/11/17 10:20 Nephro-Fer - PO 1 tablet DAILY [facility] Administration Oxycodone HCl 5 mg 10/09/17 16:07 10/10/17 01:40 Roxicodone - PO 5 mg Q8H PRN Administration PAIN 7-10 Sacubitril/Valsartan 1 tab 10/04/17 22:00 10/11/17 10:21 Entresto 24 Mg-26 Mg Tablet PO 1 tab BID [facility] Administration Senna 2 tab 10/03/17 22:00 10/11/17 00:18 Senna - PO 2 tab HS [facility] Administration Senna/Docusate Sodium 1 tablet 10/04/17 10:00 10/11/17 10:20 Pericolace - PO 1 tablet DAILY [facility] Administration Thiamine HCl 100 mg 10/04/17 10:00 10/11/17 10:20 Vitamin B1 - PO 100 mg DAILY [facility] Administration Warfarin Sodium 5 mg 10/09/17 18:00 10/10/17 17:42 Coumadin - PO 5 mg DAILY@1800 [facility] Administration Impression 1. ESRD 2. hx pericardial effusion 3. hx pneumopericardium 4. hypothyroidism 5. a-fib 6. hypotension 7. hx of colon cancer 8. CHF 9. DM 10. hx of PE 11. CAD 12. foot ulcer Plan - pt tolerated HD yesterday - HD again tomorrow - pt going for surgery tomorrow - cont wound care - pt remains overloaded - monitor bp - will follow Dr Conklin
--- NOTE | 2017-10-11 13:05 | PN ---
Progress Note, Physician History of Present Illness: stable no complaints going for tma tomorrow - Current Medication List Current Medications: Active Medications Acetaminophen (Tylenol -) 325 mg PO Q8H PRN PRN Reason: PAIN LEVEL 7 - 10 Last Admin: 10/10/17 01:43 Dose: 325 mg Albumin Human (Albumin Human 25%) 12.5 gm IVPB Q30M [facility] Clopidogrel Bisulfate (Plavix -) 75 mg PO DAILY [facility] Last Admin: 10/11/17 10:21 Dose: 75 mg Collagenase (Santyl -) 1 applic TP DAILY [facility]; Protocol Last Admin: 10/11/17 10:22 Dose: 1 applic Diphenhydramine HCl (Benadryl -) 25 mg PO Q8H PRN PRN Reason: ITCHING Last Admin: 10/11/17 10:43 Dose: 25 mg Epoetin Hector (Epogen -) 6,000 unit IVPUSH ONCE ONE Stop: 10/12/17 12:56 Piperacillin Sod/Tazobactam (Sod 2.25 gm/ Dextrose) 50 mls @ 100 mls/hr IVPB Q8H-IV [facility]; Protocol Last Admin: 10/11/17 10:20 Dose: 100 mls/hr Sodium Chloride (Normal Saline -) 250 mls @ 3,000 mls/hr IV PRN PRN PRN Reason: Hypotension during Dialysis Sodium Chloride (Normal Saline -) 250 mls @ 3,000 mls/hr IV PRN PRN PRN Reason: Hypotension during Dialysis Stop: 10/12/17 12:55 Insulin Aspart (Novolog Vial Sliding Scale -) 1 vial SQ BIDAC [facility]; Protocol Last Admin: 10/11/17 06:29 Dose: Not Given Levothyroxine Sodium (Synthroid -) 75 mcg PO DAILY@0700 [facility] Last Admin: 10/11/17 06:29 Dose: 75 mcg Melatonin (Melatonin) 5 mg PO HS PRN PRN Reason: INSOMNIA Last Admin: 10/11/17 00:18 Dose: 5 mg Metoprolol Succinate (Toprol Xl -) 12.5 mg PO DAILY [facility] Last Admin: 10/11/17 10:20 Dose: 12.5 mg Morphine Sulfate (Morphine 10 Mg/5 Ml Liquid) 10 mg PO BID [facility] Last Admin: 10/11/17 10:18 Dose: 10 mg Multivit/Ca Carb/B Cmplx/FA/Prenat (Nephro-Fer -) 1 tablet PO DAILY [facility] Last Admin: 10/11/17 10:20 Dose: 1 tablet Oxycodone HCl (Roxicodone -) 5 mg PO Q8H PRN PRN Reason: PAIN 7-10 Last Admin: 10/10/17 01:40 Dose: 5 mg Sacubitril/Valsartan (Entresto 24 Mg-26 Mg Tablet) 1 tab PO BID [facility] Last Admin: 10/11/17 10:21 Dose: 1 tab Senna (Senna -) 2 tab PO HS [facility] Last Admin: 10/11/17 00:18 Dose: 2 tab Senna/Docusate Sodium (Pericolace -) 1 tablet PO DAILY [facility] Last Admin: 10/11/17 10:20 Dose: 1 tablet Thiamine HCl (Vitamin B1 -) 100 mg PO DAILY [facility] Last Admin: 10/11/17 10:20 Dose: 100 mg Warfarin Sodium (Coumadin -) 5 mg PO DAILY@1800 [facility] Last Admin: 10/10/17 17:42 Dose: 5 mg - Objective Vital Signs: Vital Signs Temperature 97.3 F L 10/11/17 10:00 Pulse Rate 66 10/11/17 10:00 Respiratory Rate 18 10/11/17 10:00 Blood Pressure 100/50 10/11/17 10:00 O2 Sat by Pulse Oximetry (%) 96 10/11/17 01:04 Constitutional: Yes: No Distress, Calm Cardiovascular: Yes: Regular Rate and Rhythm Respiratory: Yes: Regular, CTA Bilaterally Gastrointestinal: Yes: Normal Bowel Sounds, Soft Musculoskeletal: Yes: WNL Extremities: Yes: Other Wound/Incision: Yes: Clean/Dry, Dressing Dry and Intact Neurological: Yes: Alert, Oriented Psychiatric: Yes: Alert, Oriented Labs: CBC, BMP 10/10/17 19:45 10/10/17 19:45 INR, PTT INR 1.93 (0.83-1.09) H 10/11/17 07:05 Assessment/Plan Problem List - Problems (1) Diabetic foot ulcer Code(s): E11.621 - TYPE 2 DIABETES MELLITUS WITH FOOT ULCER; L97.509 - NON- PRESSURE CHRONIC ULCER OTH PRT UNSP FOOT W UNSP SEVERITY (2) Amputated toe of right foot Code(s): Z89.421 - ACQUIRED ABSENCE OF OTHER RIGHT TOE(S) (3) Cellulitis of right lower extremity Code(s): L03.115 - CELLULITIS OF RIGHT LOWER LIMB (4) Anemia Code(s): D64.9 - ANEMIA, UNSPECIFIED Qualifiers: Anemia type: due to chronic kidney disease (5) Atrial fibrillation Code(s): I48.91 - UNSPECIFIED ATRIAL FIBRILLATION Qualifiers: Atrial fibrillation type: permanent Qualified Code(s): I48.2 - Chronic atrial fibrillation (6) Chronic anticoagulation Code(s): Z79.01 - [facility] (CURRENT) USE OF 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 (7) 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 Code(s): E11.9 - TYPE 2 DIABETES MELLITUS WITHOUT COMPLICATIONS Qualifiers: 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 type: type 2 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 insulin use: without intermediate use 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 complication status: without complication Qualified Code(s): E11.9 - Type 2 diabetes mellitus without complications (8) ESRD (end stage renal disease) Code(s): N18.6 - END STAGE RENAL DISEASE (9) HTN (hypertension) Code(s): I10 - ESSENTIAL (PRIMARY) HYPERTENSION Qualifiers: Hypertension type: essential hypertension Qualified Code(s): I10 - Essential (primary) hypertension (10) Hypothyroid Code(s): E03.9 - HYPOTHYROIDISM, UNSPECIFIED Qualifiers: Hypothyroidism type: unspecified Qualified Code(s): E03.9 - Hypothyroidism , unspecified Assessment/Plan This is a 72 y/o man Admitted for Cellulitis of the Right Foot, Diabetic Wound Infection for further evaluation of their emergent condition. plan continue abx plan for surgery tomorrow now will decide after that rest as per the team
--- NOTE | 2017-10-11 13:19 | PN ---
Progress Note (short form) - Note Progress Note: FUV right foot today. Seen in bed. VSS. Tmax 97.8 +wound vac in place, drainage noted, wbc=3.7 necrosis edges of tma Prepared consent for debridement bone and soft tissue with revision of partial TMA. Signed by patient, nurse and myself. Hold coumadin. DC Vac. Response from Dr. Ruiz is patient is cleared for revision. PT fully understands all risks, benefits and alternatives and wants to try to save big toe and his leg. Santyl left heel. OR scheduled for 10/12/17 in am. will follow.
[2017-10-11] MEDS: oxyCODONE HCL 5 MG TABLET PO PRN ×2 (14:12→23:22)
[2017-10-11] MEDS: ACETAMINOPHEN 325 MG TABLET (FP) PO PRN ×2 (14:13→23:22)
[2017-10-12] MEDS ORDERED: PIPERACILLIN/TAZOBACTAM 2.25 GM VIAL IVPB ONE ×3 (01:15→17:18)
[2017-10-12] MEDS ORDERED: DEXTROSE 5%-WATER - 50 ML IVPB ONE ×3 (01:15→17:18)
[2017-10-12] MEDS: PIPERACILLIN/TAZOB 2.25 GM 2.25 GM in DEXTROSE 5%-WATER - 50 ML IVPB SCH ×2 (01:22→09:00)
[2017-10-12] MEDS: INSULIN SLIDING SCALE (NOVOLOG) 1 VIAL SQ SCH ×2 (06:03→17:40)
[2017-10-12] MEDS: LEVOTHYROXINE NA 75 MCG TABLET (FP) PO SCH (06:03)
[2017-10-12 07:46] LABS: INR 1.77 (0.83-1.09)
[2017-10-12] MEDS ORDERED: PROPOFOL 20 ML ONE (09:41)
[2017-10-12] MEDS ORDERED: MIDAZOLAM HCL 2 MG/2 ML SINGLE DOSE VIAL ONE (09:41)
--- NOTE | 2017-10-12 10:46 | PN ---
Progress Note (short form) - Note Progress Note: comfortable for revision of tma today Vital Signs Temp 97.5 F L 10/12/17 09:25 Pulse 73 10/12/17 09:25 Resp 16 10/12/17 09:25 BP 93/53 10/12/17 09:25 Pulse Ox 96 10/11/17 21:00 Intake & Output 10/11/17 10/11/17 10/12/17 11:59 23:59 11:59 Intake Total 450 800 50 Balance 450 800 50 Weight 218 lb 3 oz 219 lb Intake: IVPB 100 50 Oral 450 700 Other: Voiding Method Toilet Toilet Toilet Weight Measurement Method Standing Scale Active Medications Acetaminophen (Tylenol -) 325 mg PO Q8H PRN PRN Reason: PAIN LEVEL 7 - 10 Last Admin: 10/11/17 23:22 Dose: 325 mg Albumin Human (Albumin Human 25%) 12.5 gm IVPB Q30M [facility] Clopidogrel Bisulfate (Plavix -) 75 mg PO DAILY [facility] Last Admin: 10/11/17 10:21 Dose: 75 mg Collagenase (Santyl -) 1 applic TP DAILY [facility]; Protocol Last Admin: 10/11/17 10:22 Dose: 1 applic Diphenhydramine HCl (Benadryl -) 25 mg PO Q8H PRN PRN Reason: ITCHING Last Admin: 10/11/17 21:16 Dose: 25 mg Epoetin Hector (Procrit -) 6,000 unit IVPUSH ONCE ONE Stop: 10/12/17 13:01 Piperacillin Sod/Tazobactam (Sod 2.25 gm/ Dextrose) 50 mls @ 100 mls/hr IVPB Q8H-IV [facility]; Protocol Last Admin: 10/12/17 01:22 Dose: 100 mls/hr Sodium Chloride (Normal Saline -) 250 mls @ 3,000 mls/hr IV PRN PRN PRN Reason: Hypotension during Dialysis Sodium Chloride (Normal Saline -) 250 mls @ 3,000 mls/hr IV PRN PRN PRN Reason: Hypotension during Dialysis Stop: 10/12/17 12:55 Insulin Aspart (Novolog Vial Sliding Scale -) 1 vial SQ BIDAC [facility]; Protocol Last Admin: 10/12/17 06:03 Dose: Not Given Levothyroxine Sodium (Synthroid -) 75 mcg PO DAILY@0700 [facility] Last Admin: 10/12/17 06:03 Dose: Not Given Melatonin (Melatonin) 5 mg PO HS PRN PRN Reason: INSOMNIA Last Admin: 10/11/17 21:16 Dose: 5 mg Metoprolol Succinate (Toprol Xl -) 12.5 mg PO DAILY [facility] Last Admin: 10/11/17 10:20 Dose: 12.5 mg Morphine Sulfate (Morphine 10 Mg/5 Ml Liquid) 10 mg PO BID [facility] Last Admin: 10/11/17 21:15 Dose: 10 mg Multivit/Ca Carb/B Cmplx/FA/Prenat (Nephro-Fer -) 1 tablet PO DAILY [facility] Last Admin: 10/11/17 10:20 Dose: 1 tablet Oxycodone HCl (Roxicodone -) 5 mg PO Q8H PRN PRN Reason: PAIN 7-10 Last Admin: 10/11/17 23:22 Dose: 5 mg Sacubitril/Valsartan (Entresto 24 Mg-26 Mg Tablet) 1 tab PO BID [facility] Last Admin: 10/11/17 21:14 Dose: 1 tab Senna (Senna -) 2 tab PO HS [facility] Last Admin: 10/11/17 21:15 Dose: 2 tab Senna/Docusate Sodium (Pericolace -) 1 tablet PO DAILY [facility] Last Admin: 10/11/17 10:20 Dose: 1 tablet Thiamine HCl (Vitamin B1 -) 100 mg PO DAILY [facility] Last Admin: 10/11/17 10:20 Dose: 100 mg Warfarin Sodium (Coumadin -) 5 mg PO DAILY@1800 [facility] Last Admin: 10/10/17 17:42 Dose: 5 mg CBC, BMP 10/10/17 19:45 10/10/17 19:45 INR, PTT INR 1.77 (0.83-1.09) H 10/12/17 06:35 Physical Exam. Alert/ awake .comfortable neck: Yes: WNL, Supple, Trachea Midline Cardiovascular: Yes: Pulse regular, S1, S2 Respiratory: Yes: WNL, Regular, CTA Bilaterally, On Nasal O2 Gastrointestinal: Yes: Normal Bowel Sounds, Soft A/P Right foor cellulitis DM CHF S/P right posterior tibial artery re-vascularization and subsequent foot amputation digit-2-5 afib PE Colon ca- s/p resection peripheral neuropathy ESRD on HD For revision of tma today Will follow Problem List - Problems (1) Cellulitis Code(s): L03.90 - CELLULITIS, UNSPECIFIED Qualifiers: Site of cellulitis: extremity Site of cellulitis of extremity: lower extremity Laterality: right Qualified Code(s): L03.115 - Cellulitis of right lower limb (2) Diabetic foot ulcer Code(s): E11.621 - TYPE 2 DIABETES MELLITUS WITH FOOT ULCER; L97.509 - NON- PRESSURE CHRONIC ULCER OTH PRT UNSP FOOT W UNSP SEVERITY (3) Amputated toe of right foot Code(s): Z89.421 - ACQUIRED ABSENCE OF OTHER RIGHT TOE(S) (4) Atrial fibrillation Code(s): I48.91 - UNSPECIFIED ATRIAL FIBRILLATION Qualifiers: Atrial fibrillation type: permanent Qualified Code(s): I48.2 - Chronic atrial fibrillation (5) Cardiomyopathy Code(s): I42.9 - CARDIOMYOPATHY, UNSPECIFIED Qualifiers: Cardiomyopathy type: unspecified Qualified Code(s): I42.9 - Cardiomyopathy , unspecified (6) Chronic anticoagulation Code(s): Z79.01 - RETIREMENT (CURRENT) USE OF 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
[2017-10-12] MEDS ORDERED: DEXAMETHASONE SOD PHOSPHATE 4 MG/1 ML VIAL ONE (10:48)
[2017-10-12] MEDS ORDERED: POVIDONE-IODINE 5% OPHTHALMIC PREP 30 ML SOLUTION ONE (10:49)
[2017-10-12] MEDS ORDERED: BUPIVACAINE HCL/PF 0.5% (5MG/ML) 10 ML VIAL ONE (10:49)
[2017-10-12] MEDS ORDERED: LIDOCAINE HCL 0.5%, 5 MG/ML (50mL SDVIAL) ONE (10:49)
[2017-10-12] MEDS ORDERED: LIDOCAINE HCL 2% (20ML MULTI-DOSE VIAL) NR ONE (10:52)
[2017-10-12] MEDS ORDERED: BACITRACIN 50,000 UNITS VIAL TP ONE (11:00)
[2017-10-12] MEDS ORDERED: BUPIVACAINE HCL/PF (5 MG/ML) 30 ML VIAL IJ ONE (11:01)
[2017-10-12] MEDS ORDERED: LIDOCAINE HCL 2% (50ML VIAL) PNB ONE (11:01)
--- NOTE | 2017-10-12 11:02 | PN ---
Progress Note, Physician History of Present Illness: stable no new issues for surgery patient doing well - Current Medication List Current Medications: Active Medications Acetaminophen (Tylenol -) 325 mg PO Q8H PRN PRN Reason: PAIN LEVEL 7 - 10 Last Admin: 10/11/17 23:22 Dose: 325 mg Albumin Human (Albumin Human 25%) 12.5 gm IVPB Q30M [facility] Clopidogrel Bisulfate (Plavix -) 75 mg PO DAILY [facility] Last Admin: 10/11/17 10:21 Dose: 75 mg Collagenase (Santyl -) 1 applic TP DAILY [facility]; Protocol Last Admin: 10/11/17 10:22 Dose: 1 applic Diphenhydramine HCl (Benadryl -) 25 mg PO Q8H PRN PRN Reason: ITCHING Last Admin: 10/11/17 21:16 Dose: 25 mg Epoetin Hector (Procrit -) 6,000 unit IVPUSH ONCE ONE Stop: 10/12/17 13:01 Piperacillin Sod/Tazobactam (Sod 2.25 gm/ Dextrose) 50 mls @ 100 mls/hr IVPB Q8H-IV [facility]; Protocol Last Admin: 10/12/17 01:22 Dose: 100 mls/hr Sodium Chloride (Normal Saline -) 250 mls @ 3,000 mls/hr IV PRN PRN PRN Reason: Hypotension during Dialysis Sodium Chloride (Normal Saline -) 250 mls @ 3,000 mls/hr IV PRN PRN PRN Reason: Hypotension during Dialysis Stop: 10/12/17 12:55 Insulin Aspart (Novolog Vial Sliding Scale -) 1 vial SQ BIDAC [facility]; Protocol Last Admin: 10/12/17 06:03 Dose: Not Given Levothyroxine Sodium (Synthroid -) 75 mcg PO DAILY@0700 [facility] Last Admin: 10/12/17 06:03 Dose: Not Given Melatonin (Melatonin) 5 mg PO HS PRN PRN Reason: INSOMNIA Last Admin: 10/11/17 21:16 Dose: 5 mg Metoprolol Succinate (Toprol Xl -) 12.5 mg PO DAILY [facility] Last Admin: 10/11/17 10:20 Dose: 12.5 mg Morphine Sulfate (Morphine 10 Mg/5 Ml Liquid) 10 mg PO BID [facility] Last Admin: 10/11/17 21:15 Dose: 10 mg Multivit/Ca Carb/B Cmplx/FA/Prenat (Nephro-Fer -) 1 tablet PO DAILY [facility] Last Admin: 10/11/17 10:20 Dose: 1 tablet Oxycodone HCl (Roxicodone -) 5 mg PO Q8H PRN PRN Reason: PAIN 7-10 Last Admin: 10/11/17 23:22 Dose: 5 mg Sacubitril/Valsartan (Entresto 24 Mg-26 Mg Tablet) 1 tab PO BID [facility] Last Admin: 10/11/17 21:14 Dose: 1 tab Senna (Senna -) 2 tab PO HS [facility] Last Admin: 10/11/17 21:15 Dose: 2 tab Senna/Docusate Sodium (Pericolace -) 1 tablet PO DAILY [facility] Last Admin: 10/11/17 10:20 Dose: 1 tablet Thiamine HCl (Vitamin B1 -) 100 mg PO DAILY [facility] Last Admin: 10/11/17 10:20 Dose: 100 mg Warfarin Sodium (Coumadin -) 5 mg PO DAILY@1800 [facility] Last Admin: 10/10/17 17:42 Dose: 5 mg - Objective Vital Signs: Vital Signs Temperature 97.5 F L 10/12/17 09:25 Pulse Rate 73 10/12/17 09:25 Respiratory Rate 16 10/12/17 09:25 Blood Pressure 93/53 10/12/17 09:25 O2 Sat by Pulse Oximetry (%) 96 10/11/17 21:00 Constitutional: Yes: No Distress, Calm Cardiovascular: Yes: Regular Rate and Rhythm Respiratory: Yes: Regular, CTA Bilaterally Gastrointestinal: Yes: Normal Bowel Sounds, Soft Musculoskeletal: Yes: Other Extremities: Yes: Other Wound/Incision: Yes: Dressing Dry and Intact Neurological: Yes: Alert, Oriented Psychiatric: Yes: Alert, Oriented Labs: CBC, BMP 10/10/17 19:45 10/10/17 19:45 INR, PTT INR 1.77 (0.83-1.09) H 10/12/17 06:35 Assessment/Plan Problem List - Problems (1) Diabetic foot ulcer Code(s): E11.621 - TYPE 2 DIABETES MELLITUS WITH FOOT ULCER; L97.509 - NON- PRESSURE CHRONIC ULCER OTH PRT UNSP FOOT W UNSP SEVERITY (2) Amputated toe of right foot Code(s): Z89.421 - ACQUIRED ABSENCE OF OTHER RIGHT TOE(S) (3) Cellulitis of right lower extremity Code(s): L03.115 - CELLULITIS OF RIGHT LOWER LIMB (4) Anemia Code(s): D64.9 - ANEMIA, UNSPECIFIED Qualifiers: Anemia type: due to chronic kidney disease (5) Atrial fibrillation Code(s): I48.91 - UNSPECIFIED ATRIAL FIBRILLATION Qualifiers: Atrial fibrillation type: permanent Qualified Code(s): I48.2 - Chronic atrial fibrillation (6) Chronic anticoagulation Code(s): Z79.01 - LONGTERM (CURRENT) USE OF 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 (7) 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 Code(s): E11.9 - TYPE 2 DIABETES MELLITUS WITHOUT COMPLICATIONS Qualifiers: 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 type: type 2 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 long term care administrator insulin use: without assisted use 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 complication status: without complication Qualified Code(s): E11.9 - Type 2 diabetes mellitus without complications (8) ESRD (end stage renal disease) Code(s): N18.6 - END STAGE RENAL DISEASE (9) HTN (hypertension) Code(s): I10 - ESSENTIAL (PRIMARY) HYPERTENSION Qualifiers: Hypertension type: essential hypertension Qualified Code(s): I10 - Essential (primary) hypertension (10) Hypothyroid Code(s): E03.9 - HYPOTHYROIDISM, UNSPECIFIED Qualifiers: Hypothyroidism type: unspecified Qualified Code(s): E03.9 - Hypothyroidism , unspecified Assessment/Plan This is a 72 y/o man Admitted for Cellulitis of the Right Foot, Diabetic Wound Infection for further evaluation of their emergent condition. plan continue abx surgery today will decide after that rest as per the team
[2017-10-12] MEDS: CLOPIDOGREL BISULFATE 75 MG TABLET (FP) PO SCH (11:34)
[2017-10-12] MEDS: COLLAGENASE CLOSTRIDIUM HIST. 30 GRAMS TUBE TP SCH (11:34)
[2017-10-12] MEDS: SENNOSIDES/DOCUSATE COMBO (SENNA PLUS) TABLET (UD) PO SCH (11:34)
[2017-10-12] MEDS: VITAMIN B COMP W-C 1 EA TABLET PO SCH (11:34)
[2017-10-12] MEDS: morphine SULFATE 10 MG/5 ML UNIT-DOSE CUP PO SCH ×2 (11:34→21:10)
[2017-10-12] MEDS: SACUBITRIL/VALSARTAN 24 MG-26 MG TABLET PO SCH ×2 (11:34→21:10)
[2017-10-12] MEDS: THIAMINE HCL 100 MG TABLET (FP) PO SCH (11:35)
[2017-10-12] MEDS: metoPROLOL SUCCINATE 25 MG TAB.SR.24H (FP) PO SCH (11:35)
[2017-10-12] MEDS ORDERED: EPOETIN ALFA 2,000 UNIT/1 ML VIAL IVPUSH ONE (12:17)
[2017-10-12] MEDS ORDERED: SODIUM CHLORIDE 250 ML IV PRN (12:17)
[2017-10-12] MEDS ORDERED: ACETAMINOPHEN 325 MG TABLET (FP) ONE (12:27)
--- NOTE | 2017-10-12 12:32 | PN ---
Progress Note, Physician History of Present Illness: He denies chest pain, SOB or palpitations. He denies paroxysmal nocturnal dyspnea or orthopnea. He denies fever or chills. He underwent debridement of bone and soft tissue with revision of partial TMA this am. Weatherization Administrator: Dr. Ghassan Durant - Current Medication List Current Medications: Active Medications Acetaminophen (Tylenol -) 325 mg PO Q8H PRN PRN Reason: PAIN LEVEL 7 - 10 Albumin Human (Albumin Human 25%) 12.5 gm IVPB Q30M [facility] Clopidogrel Bisulfate (Plavix -) 75 mg PO DAILY [facility] Collagenase (Santyl -) 1 applic TP DAILY [facility]; Protocol Diphenhydramine HCl (Benadryl -) 25 mg PO Q8H PRN PRN Reason: ITCHING Epoetin Hector (Epogen -) 6,000 unit IVPUSH ONCE ONE Stop: 10/12/17 12:18 Epoetin Hector (Procrit -) 6,000 unit IVPUSH ONCE ONE Stop: 10/12/17 13:01 Sodium Chloride (Normal Saline -) 250 mls @ 3,000 mls/hr IV PRN PRN PRN Reason: Hypotension during Dialysis Stop: 10/12/17 12:55 Sodium Chloride (Normal Saline -) 250 mls @ 3,000 mls/hr IV PRN PRN PRN Reason: Hypotension during Dialysis Piperacillin Sod/Tazobactam (Sod 2.25 gm/ Dextrose) 50 mls @ 100 mls/hr IVPB Q8H-IV [facility]; Protocol Insulin Aspart (Novolog Vial Sliding Scale -) [facility]; Protocol Levothyroxine Sodium (Synthroid -) 75 mcg PO DAILY@0700 [facility] Melatonin (Melatonin) 5 mg PO HS PRN PRN Reason: INSOMNIA Metoprolol Succinate (Toprol Xl -) 12.5 mg PO DAILY [facility] Morphine Sulfate (Morphine 10 Mg/5 Ml Liquid) 10 mg PO BID [facility] Multivit/Ca Carb/B Cmplx/FA/Prenat (Nephro-Fer -) 1 tablet PO DAILY [facility] Oxycodone HCl (Roxicodone -) 5 mg PO Q8H PRN PRN Reason: PAIN 7-10 Sacubitril/Valsartan (Entresto 24 Mg-26 Mg Tablet) 1 tab PO BID [facility] Senna (Senna -) 2 tab PO HS [facility] Senna/Docusate Sodium (Pericolace -) 1 tablet PO DAILY [facility] Thiamine HCl (Vitamin B1 -) 100 mg PO DAILY [facility] Warfarin Sodium (Coumadin -) 5 mg PO DAILY@1800 [facility] - Objective Vital Signs: Vital Signs Temperature 97.5 F L 10/12/17 09:25 Pulse Rate 73 10/12/17 09:25 Respiratory Rate 16 10/12/17 09:25 Blood Pressure 93/53 10/12/17 09:25 O2 Sat by Pulse Oximetry (%) 96 10/11/17 21:00 Constitutional: Yes: No Distress, Calm, Thin Neck: Yes: Supple Cardiovascular: Yes: Regular Rate and Rhythm Respiratory: Yes: Regular, Diminished Gastrointestinal: Yes: Normal Bowel Sounds, Soft Edema: No Wound/Incision: Yes: Dressing Dry and Intact Labs: CBC, BMP 10/10/17 19:45 10/10/17 19:45 INR, PTT INR 1.77 (0.83-1.09) H 10/12/17 06:35 Problem List - Problems (1) Atrial fibrillation Code(s): I48.91 - UNSPECIFIED ATRIAL FIBRILLATION Qualifiers: Atrial fibrillation type: permanent Qualified Code(s): I48.2 - Chronic atrial fibrillation (2) Cardiomyopathy Code(s): I42.9 - CARDIOMYOPATHY, UNSPECIFIED Qualifiers: Cardiomyopathy type: unspecified Qualified Code(s): I42.9 - Cardiomyopathy , unspecified (3) Chronic anticoagulation Code(s): Z79.01 - SHELTER (CURRENT) USE OF 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 (4) 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 Code(s): E11.9 - TYPE 2 DIABETES MELLITUS WITHOUT COMPLICATIONS Qualifiers: 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 type: type 2 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: without chcf use 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 complication status: without complication Qualified Code(s): E11.9 - Type 2 diabetes mellitus without complications (5) ESRD (end stage renal disease) Code(s): N18.6 - END STAGE RENAL DISEASE (6) HTN (hypertension) Code(s): I10 - ESSENTIAL (PRIMARY) HYPERTENSION Qualifiers: Hypertension type: essential hypertension Qualified Code(s): I10 - Essential (primary) hypertension (7) Hypothyroid Code(s): E03.9 - HYPOTHYROIDISM, UNSPECIFIED Qualifiers: Hypothyroidism type: unspecified Qualified Code(s): E03.9 - Hypothyroidism , unspecified (8) ICD (implantable cardioverter-defibrillator) in place Code(s): Z95.810 - PRESENCE OF AUTOMATIC (IMPLANTABLE) CARDIAC DEFIBRILLATOR (9) Open wound of foot Code(s): S91.309A - UNSPECIFIED OPEN WOUND, UNSPECIFIED FOOT, INITIAL ENCOUNTER Qualifiers: Encounter type: subsequent encounter Laterality: right Qualified Code(s) : S91.301D - Unspecified open wound, right foot, subsequent encounter (10) Osteomyelitis Code(s): M86.9 - OSTEOMYELITIS, UNSPECIFIED Qualifiers: Osteomyelitis type: other Osteomyelitis location: foot Laterality: right Qualified Code(s): M86.8X7 - Other osteomyelitis, ankle and foot (11) Pericardial effusion Code(s): I31.3 - PERICARDIAL EFFUSION (NONINFLAMMATORY) (12) Status post peripheral artery angioplasty Code(s): Z98.62 - PERIPHERAL VASCULAR ANGIOPLASTY STATUS Assessment/Plan 09/12/2017 Echo: Moderate pericardial effusion, no tamponade, mildly dilated LV with severely decreased LV fxn, mild-mod dilated RV with severely decreased RV fxn, mod-severe MUKUL, mild MR, mild-mod TR, mild AR 10/05/2017 Echo: Moderately dilated with severely decreased LV fxn, RV dilated with severely decreased RV fxn, mod LAE, mild MR, mod TR, mild AR, mod pericardial effusion similar to previous 1. Peripheral artery disease and gangrene right forefoot post right tibial revacularization and debridement of bone and soft tissue with transmetatarsal amputation planned for debridement bone and soft tissue with revision of partial TMA. 2. Ischemic dilated cardiomyopathy with chronic class I-II NYHA classification LV failure, compensated/euvolemic, post prophylactic ICD implant 3. CAD post OK with evidence of demand ischemic injury angina pectoris, clinically stable 4. Persistent atrial fibrillation [id number] score of 3-4 on Coumadin 5. Pericardial effusion probably uremic pericarditis, moderate in severity/ unchanged 6. 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 7. Hypothyroidism 8. History of PTE 9. ESRD 10. History of colon cancer PLAN: 1. Antibiotics as per the primary team 2. HD as per renal service 3. Continue Plavix 75 qd and Coumadin as per INR with close monitoring of CBC, unless surgical intervention is planned at which point to hold Coumadin 4. Continue Toprol XL 12.5 qd and titrate as hemodynamics permit/tolerate 5. Continue Entresto bid and titrate as hemodynamics permit/tolerate Weatherization Administrator: Dr. Ghassan Durant
[2017-10-12] MEDS: ACETAMINOPHEN 325 MG TABLET (FP) PO PRN ×2 (12:35→15:46)
--- NOTE | 2017-10-12 12:42 | OP ---
DATE OF OPERATION: 10/11/2017 SURGEON: Adrianne Davila MD CLIENT DEVELOPMENT CONSULTANT: Frank Mccurdy DPM PREPROCEDURAL DIAGNOSIS: Diabetic right foot nonhealing ulceration with peripheral arterial disease. POSTPROCEDURAL DIAGNOSIS: Diabetic right foot nonhealing ulceration with peripheral arterial disease. PROCEDURE: Revision of tarsometatarsal amputation site, 2 through 5, right foot, via a sharp excisional debridement of skin, soft tissue and bone. PATHOLOGY: Right foot bone and soft tissue to Pathology. HEMOSTASIS: None. ESTIMATED BLOOD LOSS: 40 mL. ANESTHESIA: MAC and local. MATERIALS: Iodoform packing, 2-0 nylon. DRESSING: Gauze 4 x 4, ABD pads and Kerlix and Chris bandage. INJECTIONS: A 1:1 mixture of 2% lidocaine plain and 0.5% Marcaine plain, 20 mL. PROCEDURE: The patient was both verbally and visually identified in the preoperative holding area. Informed consent was obtained and placed in the chart. All risks, benefits and complications were explained to the patient to their satisfaction. The patient was then brought to the operating room and placed on the operating table in the supine position. After adequate IV sedation a local infiltration block utilizing 20 mL of a 1:1 mixture of 2% lidocaine plain and 0.5% Marcaine plain was administered to the right foot. The right foot was then prepped and draped in the usual aseptic fashion. Attention was then directed to the right foot where a previous transmetatarsal amputation site was noted to be. Plantar flap edge was gangrenous and wound base was necrotic and fibrotic tissue noted so sharp excisional debridement performed at all wounds edges and the wound base utilizing a No. 10 blade. All fibrotic and necrotic tissue as well as gangrenous tissue was sharply removed and 3rd metatarsal and 4th metatarsal and 5th metatarsal amputation site was noted in the operative site. Upon careful examination the tip of the M site of 3rd and 4th and 5th metatarsal head was nonviable. The soft tissue attached to the metatarsals around 3rd and 4th and 5th was freed up more proximally exposing the 3rd and 4th and 5th metatarsal M site. Utilizing sagittal bone saw 3rd and 4th and 5th metatarsal M site was removed more proximally from the operative field, then sent to Pathology. At this time the surgery site was flushed with bacitracin-infused normal saline solution copiously. It was noted to good amount of bleeding at the surgical site. Then the wound was primarily closed with a 2-0 nylon in horizontal and simple suture fashion. Iodoform packing was packed through the wounds from 2nd M site through edge of 5th M site of the right foot and then light compressive dressing applied with Xeroform and 4 x 4 gauze, ABD pads, Kerlix and Chris bandage. The patient tolerated the procedure and the anesthesia well and left the operating room to the recovery room in good condition with the vital signs stable and vascular status intact to the right foot. SAMUEL Cunningham/[id number]
[2017-10-12] MEDS ORDERED: ALBUMIN HUMAN 25% 12.5 GM/50 ML VIAL IVPB SCH ×2 (13:00)
[2017-10-12] MEDS ORDERED: EPOETIN ALFA 3,000 UNIT/1 ML ML IVPUSH ONE ×2 (13:00)
[2017-10-12] MEDS: oxyCODONE HCL 5 MG TABLET PO PRN (15:45)
--- NOTE | 2017-10-12 17:01 | PN ---
Progress Note, Physician History of Present Illness: Pt seen and examined at bedside. He is awake and alert. He tolerated surgery today. He denies shortness of breath. - Current Medication List Current Medications: Active Medications Acetaminophen (Tylenol -) 325 mg PO Q8H PRN PRN Reason: PAIN LEVEL 7 - 10 Last Admin: 10/12/17 15:46 Dose: 325 mg Albumin Human (Albumin Human 25%) 12.5 gm IVPB Q30M [facility] Clopidogrel Bisulfate (Plavix -) 75 mg PO DAILY [facility] Collagenase (Santyl -) 1 applic TP DAILY [facility]; Protocol Diphenhydramine HCl (Benadryl -) 25 mg PO Q8H PRN PRN Reason: ITCHING Epoetin Hector (Procrit -) 6,000 unit IVPUSH ONCE ONE Stop: 10/12/17 13:01 Sodium Chloride (Normal Saline -) 250 mls @ 3,000 mls/hr IV PRN PRN PRN Reason: Hypotension during Dialysis Piperacillin Sod/Tazobactam (Sod 2.25 gm/ Dextrose) 50 mls @ 100 mls/hr IVPB Q8H-IV [facility]; Protocol Insulin Aspart (Novolog Vial Sliding Scale -) 1 vial SQ BIDAC [facility]; Protocol Levothyroxine Sodium (Synthroid -) 75 mcg PO DAILY@0700 [facility] Melatonin (Melatonin) 5 mg PO HS PRN PRN Reason: INSOMNIA Metoprolol Succinate (Toprol Xl -) 12.5 mg PO DAILY [facility] Morphine Sulfate (Morphine 10 Mg/5 Ml Liquid) 10 mg PO BID [facility] Multivit/Ca Carb/B Cmplx/FA/Prenat (Nephro-Fer -) 1 tablet PO DAILY [facility] Oxycodone HCl (Roxicodone -) 5 mg PO Q8H PRN PRN Reason: PAIN 7-10 Last Admin: 10/12/17 15:45 Dose: 5 mg Sacubitril/Valsartan (Entresto 24 Mg-26 Mg Tablet) 1 tab PO BID [facility] Senna (Senna -) 2 tab PO HS [facility] Senna/Docusate Sodium (Pericolace -) 1 tablet PO DAILY [facility] Thiamine HCl (Vitamin B1 -) 100 mg PO DAILY [facility] Warfarin Sodium (Coumadin -) 5 mg PO DAILY@1800 [facility] - Objective Vital Signs: Vital Signs Temperature 97.5 F L 10/12/17 14:15 Pulse Rate 68 10/12/17 14:15 Respiratory Rate 18 10/12/17 14:15 Blood Pressure 101/70 10/12/17 14:15 O2 Sat by Pulse Oximetry (%) 95 10/12/17 12:35 Constitutional: Yes: Calm Eyes: Yes: Conjunctiva Clear HENT: Yes: Atraumatic Cardiovascular: Yes: S1, S2 Respiratory: Yes: CTA Bilaterally, On Nasal O2 Gastrointestinal: Yes: Soft Genitourinary: Yes: WNL Edema: Yes Edema: LLE: Trace, RLE: 1+ Integumentary: Yes: Venous Stasis Changes Neurological: Yes: Oriented Psychiatric: Yes: Oriented Labs: CBC, BMP 10/10/17 19:45 10/10/17 19:45 INR, PTT INR 1.77 (0.83-1.09) H 10/12/17 06:35 Problem List - Problems (1) Cellulitis Code(s): L03.90 - CELLULITIS, UNSPECIFIED Qualifiers: Site of cellulitis: extremity Site of cellulitis of extremity: lower extremity Laterality: right Qualified Code(s): L03.115 - Cellulitis of right lower limb (2) Diabetic foot ulcer Code(s): E11.621 - TYPE 2 DIABETES MELLITUS WITH FOOT ULCER; L97.509 - NON- PRESSURE CHRONIC ULCER OTH PRT UNSP FOOT W UNSP SEVERITY (3) Anemia Code(s): D64.9 - ANEMIA, UNSPECIFIED Qualifiers: Anemia type: due to chronic kidney disease (4) Atrial fibrillation Code(s): I48.91 - UNSPECIFIED ATRIAL FIBRILLATION Qualifiers: Atrial fibrillation type: permanent Qualified Code(s): I48.2 - Chronic atrial fibrillation (5) ESRD (end stage renal disease) Code(s): N18.6 - END STAGE RENAL DISEASE Assessment/Plan Current Medications Generic Name Dose Route Start Last Admin Trade Name Freq PRN Reason Stop Dose Admin Acetaminophen 325 mg 10/12/17 12:17 10/12/17 15:46 Tylenol - PO 325 mg Q8H PRN Administration PAIN LEVEL 7 - 10 Albumin Human 12.5 gm 10/12/17 13:00 Albumin Human 25% IVPB Q30M [facility] Clopidogrel Bisulfate 75 mg 10/13/17 10:00 Plavix - PO DAILY [facility] Collagenase 1 applic 10/13/17 10:00 Santyl - TP DAILY [facility] Protocol Diphenhydramine HCl 25 mg 10/12/17 12:17 Benadryl - PO Q8H PRN ITCHING Epoetin Hector 6,000 unit 10/12/17 13:00 Procrit - IVPUSH 10/12/17 13:01 ONCE ONE Sodium Chloride 250 mls @ 3,000 mls/hr 10/12/17 12:17 Normal Saline - IV PRN PRN Hypotension during Dialysis Piperacillin Sod/Tazobactam 50 mls @ 100 mls/hr 10/12/17 18:00 Sod 2.25 gm/ Dextrose IVPB Q8H-IV [facility] Protocol Insulin Aspart 1 vial 10/12/17 16:30 Novolog Vial Sliding Scale - SQ BIDAC [facility] Protocol Levothyroxine Sodium 75 mcg 10/13/17 07:00 Synthroid - PO DAILY@0700 [facility] Melatonin 5 mg 10/12/17 22:00 Melatonin PO HS PRN INSOMNIA Metoprolol Succinate 12.5 mg 10/13/17 10:00 Toprol Xl - PO DAILY [facility] Morphine Sulfate 10 mg 10/12/17 22:00 Morphine 10 Mg/5 Ml Liquid PO BID [facility] Multivit/Ca Carb/B Cmplx/FA/Prenat 1 tablet 10/13/17 10:00 Nephro-Fer - PO DAILY [facility] Oxycodone HCl 5 mg 10/12/17 12:17 10/12/17 15:45 Roxicodone - PO 5 mg Q8H PRN Administration PAIN 7-10 Sacubitril/Valsartan 1 tab 10/12/17 22:00 Entresto 24 Mg-26 Mg Tablet PO BID [facility] Senna 2 tab 10/12/17 22:00 Senna - PO HS [facility] Senna/Docusate Sodium 1 tablet 10/13/17 10:00 Pericolace - PO DAILY [facility] Thiamine HCl 100 mg 10/13/17 10:00 Vitamin B1 - PO DAILY [facility] Warfarin Sodium 5 mg 10/12/17 18:00 Coumadin - PO DAILY@1800 [facility] Impression 1. ESRD 2. hx pericardial effusion 3. hx pneumopericardium 4. hypothyroidism 5. a-fib 6. hypotension 7. hx of colon cancer 8. CHF 9. DM 10. hx of PE 11. CAD 12. foot ulcer Plan - will arrange for HD in am, unable to dialyze today secondary to staffing and schedule, pt does not want to dialyze late in the day. - repeat labs in am - epogen for anemia - renal diet, fluid restriction - cont wound care - pod follow up - monitor bp - will follow Dr Conklin
[2017-10-12] MEDS: WARFARIN NA 5 MG TABLET (UD) PO SCH (17:41)
[2017-10-12] MEDS ORDERED: PIPERACILLIN/TAZOB 2.25 GM 2.25 GM in DEXTROSE 5%-WATER - 50 ML IVPB SCH (18:00)
[2017-10-12] MEDS ORDERED: PT OWN MED DRAWER 7, Y5N ONE (21:01)
[2017-10-12] MEDS: MELATONIN 5 MG TABLETS PO PRN (21:09)
[2017-10-12] MEDS: diphenhydrAMINE HCL 25 MG CAPSULE (FP) PO PRN (21:09)
[2017-10-12] MEDS: SENNOSIDES 8.6MG TABLET (FP) PO SCH (21:09)
[2017-10-13] MEDS ORDERED: PIPERACILLIN/TAZOBACTAM 2.25 GM VIAL IVPB ONE ×3 (02:12→18:36)
[2017-10-13] MEDS ORDERED: DEXTROSE 5%-WATER 100 ML IVPB ONE ×3 (02:12→18:36)
[2017-10-13] MEDS: PIPERACILLIN/TAZOB 2.25 GM 2.25 GM in DEXTROSE 5%-WATER 100 ML IVPB SCH ×3 (02:42→18:52)
[2017-10-13] MEDS: INSULIN SLIDING SCALE (NOVOLOG) 1 VIAL SQ SCH ×2 (06:44→17:43)
[2017-10-13] MEDS: LEVOTHYROXINE NA 75 MCG TABLET (FP) PO SCH (06:44)
[2017-10-13] MEDS ORDERED: PT OWN MED DRAWER 7, Y5N ONE (06:46)
[2017-10-13] MEDS: oxyCODONE HCL 5 MG TABLET PO PRN ×2 (06:48→14:39)
[2017-10-13] MEDS: ACETAMINOPHEN 325 MG TABLET (FP) PO PRN ×2 (06:48→14:39)
[2017-10-13 07:39] LABS: INR 1.82 (0.83-1.09); PROTHROMBIN TIME (PATIENT) 20.6 SEC (9.7-13.0)
--- NOTE | 2017-10-13 08:09 | PN ---
Progress Note (short form) - Note Progress Note: Post op day#1.S/P Revision of right foot transmetatarsal amputation under TIVA uneventful.Patient stable.No any anesthesia related problem.Patient Dc from the anesthesia care.
[2017-10-13] MEDS: ALBUMIN HUMAN 25% 12.5 GM/50 ML VIAL IVPB SCH ×3 (08:30→10:00)
[2017-10-13] MEDS ORDERED: SODIUM CHLORIDE 250 ML IV PRN ×2 (09:15→14:31)
[2017-10-13] MEDS ORDERED: EPOETIN ALFA 3,000 UNIT/1 ML ML IVPUSH ONE (09:15)
--- NOTE | 2017-10-13 10:30 | PN ---
Progress Note, Physician History of Present Illness: stable no new issues being dialysed post op - Current Medication List Current Medications: Active Medications Acetaminophen (Tylenol -) 325 mg PO Q8H PRN PRN Reason: PAIN LEVEL 7 - 10 Last Admin: 10/13/17 06:48 Dose: 325 mg Albumin Human (Albumin Human 25%) 12.5 gm IVPB Q30M [facility] Stop: 10/13/17 14:31 Clopidogrel Bisulfate (Plavix -) 75 mg PO DAILY [facility] Collagenase (Santyl -) 1 applic TP DAILY [facility]; Protocol Diphenhydramine HCl (Benadryl -) 25 mg PO Q8H PRN PRN Reason: ITCHING Last Admin: 10/12/17 21:09 Dose: 25 mg Sodium Chloride (Normal Saline -) 250 mls @ 3,000 mls/hr IV PRN PRN PRN Reason: Hypotension during Dialysis Piperacillin Sod/Tazobactam (Sod 2.25 gm/ Dextrose) 100 mls @ 100 mls/hr IVPB Q8H-IV [facility]; Protocol Last Admin: 10/13/17 02:42 Dose: 100 mls/hr Insulin Aspart (Novolog Vial Sliding Scale -) 1 vial SQ BIDAC [facility]; Protocol Last Admin: 10/13/17 06:44 Dose: Not Given Levothyroxine Sodium (Synthroid -) 75 mcg PO DAILY@0700 [facility] Last Admin: 10/13/17 06:44 Dose: Not Given Melatonin (Melatonin) 5 mg PO HS PRN PRN Reason: INSOMNIA Last Admin: 10/12/17 21:09 Dose: 5 mg Metoprolol Succinate (Toprol Xl -) 12.5 mg PO DAILY [facility] Morphine Sulfate (Morphine 10 Mg/5 Ml Liquid) 10 mg PO BID [facility] Last Admin: 10/12/17 21:10 Dose: 10 mg Multivit/Ca Carb/B Cmplx/FA/Prenat (Nephro-Fer -) 1 tablet PO DAILY [facility] Oxycodone HCl (Roxicodone -) 5 mg PO Q8H PRN PRN Reason: PAIN 7-10 Last Admin: 10/13/17 06:48 Dose: 5 mg Sacubitril/Valsartan (Entresto 24 Mg-26 Mg Tablet) 1 tab PO BID [facility] Last Admin: 10/12/17 21:10 Dose: 1 tab Senna (Senna -) 2 tab PO HS [facility] Last Admin: 10/12/17 21:09 Dose: 2 tab Senna/Docusate Sodium (Pericolace -) 1 tablet PO DAILY [facility] Thiamine HCl (Vitamin B1 -) 100 mg PO DAILY [facility] Warfarin Sodium (Coumadin -) 5 mg PO DAILY@1800 [facility] Last Admin: 10/12/17 17:41 Dose: 5 mg - Objective Vital Signs: Vital Signs Temperature 97.9 F 10/13/17 07:07 Pulse Rate 66 10/13/17 08:30 Respiratory Rate 18 10/13/17 08:30 Blood Pressure 104/64 10/13/17 08:30 O2 Sat by Pulse Oximetry (%) 100 10/12/17 21:14 Constitutional: Yes: No Distress, Calm Cardiovascular: Yes: Regular Rate and Rhythm Respiratory: Yes: Regular, CTA Bilaterally Gastrointestinal: Yes: Normal Bowel Sounds, Soft Musculoskeletal: Yes: Other Extremities: Yes: Other Wound/Incision: Yes: Dressing Dry and Intact Neurological: Yes: Alert, Oriented Psychiatric: Yes: Alert, Oriented Labs: CBC, BMP 10/10/17 19:45 10/10/17 19:45 INR, PTT INR 1.82 (0.83-1.09) H 10/13/17 06:00 Assessment/Plan Problem List - Problems (1) Diabetic foot ulcer Code(s): E11.621 - TYPE 2 DIABETES MELLITUS WITH FOOT ULCER; L97.509 - NON- PRESSURE CHRONIC ULCER OTH PRT UNSP FOOT W UNSP SEVERITY (2) Amputated toe of right foot Code(s): Z89.421 - ACQUIRED ABSENCE OF OTHER RIGHT TOE(S) (3) Cellulitis of right lower extremity Code(s): L03.115 - CELLULITIS OF RIGHT LOWER LIMB (4) Anemia Code(s): D64.9 - ANEMIA, UNSPECIFIED Qualifiers: Anemia type: due to chronic kidney disease (5) Atrial fibrillation Code(s): I48.91 - UNSPECIFIED ATRIAL FIBRILLATION Qualifiers: Atrial fibrillation type: permanent Qualified Code(s): I48.2 - Chronic atrial fibrillation (6) Chronic anticoagulation Code(s): Z79.01 - MANAGER POLICY (CURRENT) USE OF 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 (7) 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 Code(s): E11.9 - TYPE 2 DIABETES MELLITUS WITHOUT COMPLICATIONS Qualifiers: 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 type: type 2 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 group home insulin use: without group home use 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 complication status: without complication Qualified Code(s): E11.9 - Type 2 diabetes mellitus without complications (8) ESRD (end stage renal disease) Code(s): N18.6 - END STAGE RENAL DISEASE (9) HTN (hypertension) Code(s): I10 - ESSENTIAL (PRIMARY) HYPERTENSION Qualifiers: Hypertension type: essential hypertension Qualified Code(s): I10 - Essential (primary) hypertension (10) Hypothyroid Code(s): E03.9 - HYPOTHYROIDISM, UNSPECIFIED Qualifiers: Hypothyroidism type: unspecified Qualified Code(s): E03.9 - Hypothyroidism , unspecified Assessment/Plan This is a 72 y/o man Admitted for Cellulitis of the Right Foot, Diabetic Wound Infection for further evaluation of their emergent condition. plan continue abx post op doing well will consider stopping abx tomorrow
[2017-10-13 11:05] LABS: ANION GAP 13 MMOL/L (8-16); BLOOD UREA NITROGEN 16 mg/dL (7-18); CHLORIDE 95 mmol/L (98-107); CO2 29 mmol/L (21-32); CREATININE 6.7 mg/dL (0.7-1.3); GLUCOSE,RANDOM 90 mg/dL (74-106); POTASSIUM 3.6 mmol/L (3.5-5.1); SODIUM 137 mmol/L (136-145)
[2017-10-13 11:34] LABS: HEMATOCRIT 34.1 % (35.4-49); HEMOGLOBIN 10.6 GM/dL (11.7-16.9); MCH 28.7 pg (25.7-33.7); MCHC 31.2 g/dl (32.0-35.9); MEAN CELL VOLUME 91.9 fl (80-96); MEAN PLT VOLUME 9.4 fl (7.5-11.1); PLATELET COUNT 182 K/MM3 (134-434); RBC 3.71 M/mm3 (4.00-5.60); RDW 18.8 % (11.9-15.9); WHITE BLOOD COUNT 5.6 K/mm3 (4.0-10.0)
--- NOTE | 2017-10-13 11:35 | PN ---
Progress Note (short form) - Note Progress Note: Patient seen in dialysis today Status post revision of TMA yesterday Complains of pain No other issues Vital Signs Temp 97.9 F 10/13/17 07:07 Pulse 64 10/13/17 11:00 Resp 18 10/13/17 11:00 BP 103/57 10/13/17 11:00 Pulse Ox 100 10/12/17 21:14 Intake & Output 10/12/17 10/12/17 10/13/17 11:59 23:59 11:59 Intake Total 175 400 250 Output Total 0 Balance 175 400 250 Weight 219 lb Intake: IV 125 IVPB 50 50 100 Oral 350 150 Output: Urine 0 Other: Voiding Method Toilet Toilet Toilet Bowel Movement No No Weight Measurement Method Standing Scale Active Medications Acetaminophen (Tylenol -) 325 mg PO Q8H PRN PRN Reason: PAIN LEVEL 7 - 10 Last Admin: 10/13/17 06:48 Dose: 325 mg Clopidogrel Bisulfate (Plavix -) 75 mg PO DAILY [facility] Collagenase (Santyl -) 1 applic TP DAILY [facility]; Protocol Diphenhydramine HCl (Benadryl -) 25 mg PO Q8H PRN PRN Reason: ITCHING Last Admin: 10/12/17 21:09 Dose: 25 mg Sodium Chloride (Normal Saline -) 250 mls @ 3,000 mls/hr IV PRN PRN PRN Reason: Hypotension during Dialysis Piperacillin Sod/Tazobactam (Sod 2.25 gm/ Dextrose) 100 mls @ 100 mls/hr IVPB Q8H-IV [facility]; Protocol Last Admin: 10/13/17 02:42 Dose: 100 mls/hr Insulin Aspart (Novolog Vial Sliding Scale -) 1 vial SQ BIDAC [facility]; Protocol Last Admin: 10/13/17 06:44 Dose: Not Given Levothyroxine Sodium (Synthroid -) 75 mcg PO DAILY@0700 [facility] Last Admin: 10/13/17 06:44 Dose: Not Given Melatonin (Melatonin) 5 mg PO HS PRN PRN Reason: INSOMNIA Last Admin: 10/12/17 21:09 Dose: 5 mg Metoprolol Succinate (Toprol Xl -) 12.5 mg PO DAILY [facility] Morphine Sulfate (Morphine Injection -) 2 mg IVPUSH Q4H PRN PRN Reason: PAIN LEVEL 7 - 10 Multivit/Ca Carb/B Cmplx/FA/Prenat (Nephro-Fer -) 1 tablet PO DAILY [facility] Oxycodone HCl (Roxicodone -) 5 mg PO Q8H PRN PRN Reason: PAIN 7-10 Last Admin: 10/13/17 06:48 Dose: 5 mg Sacubitril/Valsartan (Entresto 24 Mg-26 Mg Tablet) 1 tab PO BID [facility] Last Admin: 10/12/17 21:10 Dose: 1 tab Senna (Senna -) 2 tab PO HS [facility] Last Admin: 10/12/17 21:09 Dose: 2 tab Senna/Docusate Sodium (Pericolace -) 1 tablet PO DAILY [facility] Thiamine HCl (Vitamin B1 -) 100 mg PO DAILY [facility] Warfarin Sodium (Coumadin -) 5 mg PO DAILY@1800 [facility] Last Admin: 10/12/17 17:41 Dose: 5 mg CBC, BMP 10/13/17 10:30 Physical Exam. Alert/ awake. Pleasant . neck: Yes: WNL, Supple, Trachea Midline Cardiovascular: Yes: Pulse regular, S1, S2 Respiratory: Yes: WNL, Regular, CTA Bilaterally, On Nasal O2 Gastrointestinal: Yes: Normal Bowel Sounds, Soft Vac placed A/P Right foor cellulitis DM CHF S/P right posterior tibial artery re-vascularization and subsequent foot amputation digit-2-5 afib PE Colon ca- s/p resection peripheral neuropathy ESRD on HD stable pain control Monitor blood sugar Will follow Problem List - Problems (1) Cellulitis Code(s): L03.90 - CELLULITIS, UNSPECIFIED Qualifiers: Site of cellulitis: extremity Site of cellulitis of extremity: lower extremity Laterality: right Qualified Code(s): L03.115 - Cellulitis of right lower limb (2) Diabetic foot ulcer Code(s): E11.621 - TYPE 2 DIABETES MELLITUS WITH FOOT ULCER; L97.509 - NON- PRESSURE CHRONIC ULCER OTH PRT UNSP FOOT W UNSP SEVERITY (3) Amputated toe of right foot Code(s): Z89.421 - ACQUIRED ABSENCE OF OTHER RIGHT TOE(S) (4) Atrial fibrillation Code(s): I48.91 - UNSPECIFIED ATRIAL FIBRILLATION Qualifiers: Atrial fibrillation type: permanent Qualified Code(s): I48.2 - Chronic atrial fibrillation (5) Cardiomyopathy Code(s): I42.9 - CARDIOMYOPATHY, UNSPECIFIED Qualifiers: Cardiomyopathy type: unspecified Qualified Code(s): I42.9 - Cardiomyopathy , unspecified (6) Chronic anticoagulation Code(s): Z79.01 - SKILLED NURSING (CURRENT) USE OF 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
--- NOTE | 2017-10-13 12:06 | PN ---
Progress Note, Physician History of Present Illness: He denies chest pain, SOB or palpitations. He denies paroxysmal nocturnal dyspnea or orthopnea. He denies fever or chills. POD#1 debridement of bone and soft tissue with revision of partial TMA with throbbing post-op foot discomfort. 4 L fluid off during HD. [employer] Product Owner: Dr. Ghassan Durant - Current Medication List Current Medications: Active Medications Acetaminophen (Tylenol -) 325 mg PO Q8H PRN PRN Reason: PAIN LEVEL 7 - 10 Last Admin: 10/13/17 06:48 Dose: 325 mg Clopidogrel Bisulfate (Plavix -) 75 mg PO DAILY [facility] Collagenase (Santyl -) 1 applic TP DAILY [facility]; Protocol Diphenhydramine HCl (Benadryl -) 25 mg PO Q8H PRN PRN Reason: ITCHING Last Admin: 10/12/17 21:09 Dose: 25 mg Sodium Chloride (Normal Saline -) 250 mls @ 3,000 mls/hr IV PRN PRN PRN Reason: Hypotension during Dialysis Piperacillin Sod/Tazobactam (Sod 2.25 gm/ Dextrose) 100 mls @ 100 mls/hr IVPB Q8H-IV [facility]; Protocol Last Admin: 10/13/17 02:42 Dose: 100 mls/hr Insulin Aspart (Novolog Vial Sliding Scale -) 1 vial SQ BIDAC [facility]; Protocol Last Admin: 10/13/17 06:44 Dose: Not Given Levothyroxine Sodium (Synthroid -) 75 mcg PO DAILY@0700 [facility] Last Admin: 10/13/17 06:44 Dose: Not Given Melatonin (Melatonin) 5 mg PO HS PRN PRN Reason: INSOMNIA Last Admin: 10/12/17 21:09 Dose: 5 mg Metoprolol Succinate (Toprol Xl -) 12.5 mg PO DAILY [facility] Morphine Sulfate (Morphine Sulfate) 2 mg IVPUSH Q4H PRN PRN Reason: PAIN LEVEL 7 - 10 Multivit/Ca Carb/B Cmplx/FA/Prenat (Nephro-Fer -) 1 tablet PO DAILY [facility] Oxycodone HCl (Roxicodone -) 5 mg PO Q8H PRN PRN Reason: PAIN 7-10 Last Admin: 10/13/17 06:48 Dose: 5 mg Sacubitril/Valsartan (Entresto 24 Mg-26 Mg Tablet) 1 tab PO BID [facility] Last Admin: 10/12/17 21:10 Dose: 1 tab Senna (Senna -) 2 tab PO HS [facility] Last Admin: 10/12/17 21:09 Dose: 2 tab Senna/Docusate Sodium (Pericolace -) 1 tablet PO DAILY [facility] Thiamine HCl (Vitamin B1 -) 100 mg PO DAILY [facility] Warfarin Sodium (Coumadin -) 5 mg PO DAILY@1800 [facility] Last Admin: 10/12/17 17:41 Dose: 5 mg - Objective Vital Signs: Vital Signs Temperature 97.9 F 10/13/17 07:07 Pulse Rate 64 10/13/17 11:00 Respiratory Rate 18 10/13/17 11:00 Blood Pressure 103/57 10/13/17 11:00 O2 Sat by Pulse Oximetry (%) 100 10/12/17 21:14 Constitutional: Yes: No Distress, Calm Neck: Yes: Supple Cardiovascular: Yes: Regular Rate and Rhythm Respiratory: Yes: Regular, Diminished, On Nasal O2 Gastrointestinal: Yes: Normal Bowel Sounds, Soft Extremities: Yes: Amputation (Right TMA) Edema: No Wound/Incision: Yes: Dressing Dry and Intact Labs: CBC, BMP 10/13/17 08:50 10/13/17 10:30 INR, PTT INR 1.82 (0.83-1.09) H 10/13/17 06:00 Problem List - Problems (1) Atrial fibrillation Code(s): I48.91 - UNSPECIFIED ATRIAL FIBRILLATION Qualifiers: Atrial fibrillation type: permanent Qualified Code(s): I48.2 - Chronic atrial fibrillation (2) Cardiomyopathy Code(s): I42.9 - CARDIOMYOPATHY, UNSPECIFIED Qualifiers: Cardiomyopathy type: unspecified Qualified Code(s): I42.9 - Cardiomyopathy , unspecified (3) Chronic anticoagulation Code(s): Z79.01 - [facility] (CURRENT) USE OF 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 (4) 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 Code(s): E11.9 - TYPE 2 DIABETES MELLITUS WITHOUT COMPLICATIONS Qualifiers: 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 type: type 2 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 senior care insulin use: without clinical rn liaison use 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 complication status: without complication Qualified Code(s): E11.9 - Type 2 diabetes mellitus without complications (5) ESRD (end stage renal disease) Code(s): N18.6 - END STAGE RENAL DISEASE (6) HTN (hypertension) Code(s): I10 - ESSENTIAL (PRIMARY) HYPERTENSION Qualifiers: Hypertension type: essential hypertension Qualified Code(s): I10 - Essential (primary) hypertension (7) Hypothyroid Code(s): E03.9 - HYPOTHYROIDISM, UNSPECIFIED Qualifiers: Hypothyroidism type: unspecified Qualified Code(s): E03.9 - Hypothyroidism , unspecified (8) ICD (implantable cardioverter-defibrillator) in place Code(s): Z95.810 - PRESENCE OF AUTOMATIC (IMPLANTABLE) CARDIAC DEFIBRILLATOR (9) Open wound of foot Code(s): S91.309A - UNSPECIFIED OPEN WOUND, UNSPECIFIED FOOT, INITIAL ENCOUNTER Qualifiers: Encounter type: subsequent encounter Laterality: right Qualified Code(s) : S91.301D - Unspecified open wound, right foot, subsequent encounter (10) Osteomyelitis Code(s): M86.9 - OSTEOMYELITIS, UNSPECIFIED Qualifiers: Osteomyelitis type: other Osteomyelitis location: foot Laterality: right Qualified Code(s): M86.8X7 - Other osteomyelitis, ankle and foot (11) Pericardial effusion Code(s): I31.3 - PERICARDIAL EFFUSION (NONINFLAMMATORY) (12) Status post peripheral artery angioplasty Code(s): Z98.62 - PERIPHERAL VASCULAR ANGIOPLASTY STATUS Assessment/Plan 09/12/2017 Echo: Moderate pericardial effusion, no tamponade, mildly dilated LV with severely decreased LV fxn, mild-mod dilated RV with severely decreased RV fxn, mod-severe MUKUL, mild MR, mild-mod TR, mild AR 10/05/2017 Echo: Moderately dilated with severely decreased LV fxn, RV dilated with severely decreased RV fxn, mod LAE, mild MR, mod TR, mild AR, mod pericardial effusion similar to previous 1. Peripheral artery disease and gangrene right forefoot post right tibial revacularization and debridement of bone and soft tissue with transmetatarsal amputation planned for debridement bone and soft tissue with revision of partial TMA. 2. Ischemic dilated cardiomyopathy with chronic class I-II NYHA classification LV failure, compensated/euvolemic, post prophylactic ICD implant 3. CAD post PR with evidence of demand ischemic injury angina pectoris, clinically stable 4. Persistent atrial fibrillation [id number] score of 3-4 on Coumadin with subtherapeutic INR 5. Pericardial effusion probably uremic pericarditis, moderate in severity/ unchanged 6. 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 7. Hypothyroidism 8. History of PTE 9. ESRD 10. History of colon cancer PLAN: 1. Antibiotics course and analgesia as needed per the primary team 2. HD as per renal service 3. Continue Plavix 75 qd and Coumadin as per INR with close monitoring of CBC, unless surgical intervention is planned at which point to hold Coumadin 4. Continue Toprol XL 12.5 qd and titrate as hemodynamics permit/tolerate 5. Continue Entresto 24/26 bid and titrate as hemodynamics permit/tolerate [employer] Product Owner: Dr. Ghassan Durant
--- NOTE | 2017-10-13 13:06 | PN ---
Progress Note (short form) - Note Progress Note: FUV right foot today. Seen in dialysis. VSS. Tmax 97.9 +clean dry dressing intact right foot, wbc=5.6, normal post op Patient seen resting in dialysis. Complains of pain. Renewed oxycodone. Dresing left in place. Patient is under strict bed rest orders. Can go to bathroom but must go back to bed. Adequate bleeding during procedure yesterday. Will follow.
[2017-10-13] MEDS: MORPHINE SULFATE 2 MG/ML VIAL IVPUSH PRN ×3 (13:25→22:51)
[2017-10-13] MEDS: VITAMIN B COMP W-C 1 EA TABLET PO SCH (13:25)
[2017-10-13] MEDS: CLOPIDOGREL BISULFATE 75 MG TABLET (FP) PO SCH (13:26)
[2017-10-13] MEDS: metoPROLOL SUCCINATE 25 MG TAB.SR.24H (FP) PO SCH (13:26)
[2017-10-13] MEDS: SENNOSIDES/DOCUSATE COMBO (SENNA PLUS) TABLET (UD) PO SCH (13:26)
[2017-10-13] MEDS: THIAMINE HCL 100 MG TABLET (FP) PO SCH (13:26)
[2017-10-13] MEDS: SACUBITRIL/VALSARTAN 24 MG-26 MG TABLET PO SCH ×2 (13:27→22:11)
--- NOTE | 2017-10-13 13:30 | PATH ---
Surgical Pathology Report Patient Name: BETTYE VALERIO Med. Rec. #: [id number] /Age/Gender: 1945 (Age: 72) / M Account: [id number] Location: [facility] MED/SURG Taken: 10/12/2017 Received: 10/12/2017 Reported: 10/13/2017 Physicians: Crystal Middleton M.D. Specimen(s) Received DEBRIDEMENT TISSUE FROM RIGHT FOOT REVISION Clinical History Cellulitis right lower extremity Final Diagnosis SKIN AND SOFT TISSUE, RIGHT FOOT, DEBRIDEMENT: GANGRENOUS NECROSIS. Electronically Signed Ghassan Lopez M.D. Gross Description Received in formalin labeled "debrided tissue right foot," is a 7.0 x 6.5 x 1.0 cm aggregate of multiple necrotic portions of skin and soft tissue. Truckman sections are submitted in one cassette. /10/12/2017 saudi10/12/2017
--- NOTE | 2017-10-13 14:29 | PN ---
Progress Note, Physician History of Present Illness: Pt seen and examined at bedside. He is awake and alert. He is tolerating HD. - Current Medication List Current Medications: Active Medications Acetaminophen (Tylenol -) 325 mg PO Q8H PRN PRN Reason: PAIN LEVEL 7 - 10 Last Admin: 10/13/17 06:48 Dose: 325 mg Clopidogrel Bisulfate (Plavix -) 75 mg PO DAILY [facility] Last Admin: 10/13/17 13:26 Dose: 75 mg Collagenase (Santyl -) 1 applic TP DAILY [facility]; Protocol Diphenhydramine HCl (Benadryl -) 25 mg PO Q8H PRN PRN Reason: ITCHING Last Admin: 10/12/17 21:09 Dose: 25 mg Sodium Chloride (Normal Saline -) 250 mls @ 3,000 mls/hr IV PRN PRN PRN Reason: Hypotension during Dialysis Piperacillin Sod/Tazobactam (Sod 2.25 gm/ Dextrose) 100 mls @ 100 mls/hr IVPB Q8H-IV [facility]; Protocol Last Admin: 10/13/17 13:25 Dose: 100 mls/hr Insulin Aspart (Novolog Vial Sliding Scale -) 1 vial SQ BIDAC [facility]; Protocol Last Admin: 10/13/17 06:44 Dose: Not Given Levothyroxine Sodium (Synthroid -) 75 mcg PO DAILY@0700 [facility] Last Admin: 10/13/17 06:44 Dose: Not Given Melatonin (Melatonin) 5 mg PO HS PRN PRN Reason: INSOMNIA Last Admin: 10/12/17 21:09 Dose: 5 mg Metoprolol Succinate (Toprol Xl -) 12.5 mg PO DAILY [facility] Last Admin: 10/13/17 13:26 Dose: Not Given Morphine Sulfate (Morphine Sulfate) 2 mg IVPUSH Q4H PRN PRN Reason: PAIN LEVEL 7 - 10 Last Admin: 10/13/17 13:25 Dose: 2 mg Multivit/Ca Carb/B Cmplx/FA/Prenat (Nephro-Fer -) 1 tablet PO DAILY [facility] Last Admin: 10/13/17 13:25 Dose: 1 tablet Oxycodone HCl (Roxicodone -) 5 mg PO Q8H PRN PRN Reason: PAIN 7-10 Last Admin: 10/13/17 06:48 Dose: 5 mg Sacubitril/Valsartan (Entresto 24 Mg-26 Mg Tablet) 1 tab PO BID [facility] Last Admin: 10/13/17 13:27 Dose: 1 tab Senna (Senna -) 2 tab PO HS [facility] Last Admin: 10/12/17 21:09 Dose: 2 tab Senna/Docusate Sodium (Pericolace -) 1 tablet PO DAILY [facility] Last Admin: 10/13/17 13:26 Dose: 1 tablet Thiamine HCl (Vitamin B1 -) 100 mg PO DAILY [facility] Last Admin: 10/13/17 13:26 Dose: 100 mg Warfarin Sodium (Coumadin -) 5 mg PO DAILY@1800 [facility] Last Admin: 10/12/17 17:41 Dose: 5 mg - Objective Vital Signs: Vital Signs Temperature 97.9 F 10/13/17 07:07 Pulse Rate 66 10/13/17 12:40 Respiratory Rate 18 10/13/17 12:40 Blood Pressure 121/76 10/13/17 12:40 O2 Sat by Pulse Oximetry (%) 100 10/12/17 21:14 Constitutional: Yes: Calm Eyes: Yes: Conjunctiva Clear HENT: Yes: Atraumatic Cardiovascular: Yes: S1, S2 Respiratory: Yes: CTA Bilaterally, On Nasal O2 Gastrointestinal: Yes: Normal Bowel Sounds, Soft Edema: Yes Edema: LLE: Trace, RLE: Trace Neurological: Yes: Oriented Psychiatric: Yes: Oriented Labs: CBC, BMP 10/13/17 08:50 10/13/17 10:30 INR, PTT INR 1.82 (0.83-1.09) H 10/13/17 06:00 Problem List - Problems (1) Cellulitis Code(s): L03.90 - CELLULITIS, UNSPECIFIED Qualifiers: Site of cellulitis: extremity Site of cellulitis of extremity: lower extremity Laterality: right Qualified Code(s): L03.115 - Cellulitis of right lower limb (2) Diabetic foot ulcer Code(s): E11.621 - TYPE 2 DIABETES MELLITUS WITH FOOT ULCER; L97.509 - NON- PRESSURE CHRONIC ULCER OTH PRT UNSP FOOT W UNSP SEVERITY (3) Anemia Code(s): D64.9 - ANEMIA, UNSPECIFIED Qualifiers: Anemia type: due to chronic kidney disease (4) Atrial fibrillation Code(s): I48.91 - UNSPECIFIED ATRIAL FIBRILLATION Qualifiers: Atrial fibrillation type: permanent Qualified Code(s): I48.2 - Chronic atrial fibrillation (5) ESRD (end stage renal disease) Code(s): N18.6 - END STAGE RENAL DISEASE Assessment/Plan Current Medications Generic Name Dose Route Start Last Admin Trade Name Freq PRN Reason Stop Dose Admin Acetaminophen 325 mg 10/12/17 12:17 10/13/17 06:48 Tylenol - PO 325 mg Q8H PRN Administration PAIN LEVEL 7 - 10 Clopidogrel Bisulfate 75 mg 10/13/17 10:00 10/13/17 13:26 Plavix - PO 75 mg DAILY [facility] Administration Collagenase 1 applic 10/13/17 10:00 Santyl - TP DAILY [facility] Protocol Diphenhydramine HCl 25 mg 10/12/17 12:17 10/12/17 21:09 Benadryl - PO 25 mg Q8H PRN Administration ITCHING Sodium Chloride 250 mls @ 3,000 mls/hr 10/13/17 09:15 Normal Saline - IV PRN PRN Hypotension during Dialysis Piperacillin Sod/Tazobactam 100 mls @ 100 mls/hr 10/12/17 19:54 10/13/17 13: 25 Sod 2.25 gm/ Dextrose IVPB 100 mls/hr Q8H-IV [facility] Administration Protocol Insulin Aspart 1 vial 10/12/17 16:30 10/13/17 06:44 Novolog Vial Sliding Scale - SQ Not Given BIDAC [facility] Protocol Levothyroxine Sodium 75 mcg 10/13/17 07:00 10/13/17 06:44 Synthroid - PO Not Given DAILY@0700 [facility] Melatonin 5 mg 10/12/17 22:00 10/12/17 21:09 Melatonin PO 5 mg HS PRN Administration INSOMNIA Metoprolol Succinate 12.5 mg 10/13/17 10:00 10/13/17 13:26 Toprol Xl - PO Not Given DAILY [facility] Morphine Sulfate 2 mg 10/13/17 11:32 10/13/17 13:25 Morphine Sulfate IVPUSH 2 mg Q4H PRN Administration PAIN LEVEL 7 - 10 Multivit/Ca Carb/B Cmplx/FA/Prenat 1 tablet 10/13/17 10:00 10/13/17 13:25 Nephro-Fer - PO 1 tablet DAILY [facility] Administration Oxycodone HCl 5 mg 10/12/17 12:17 10/13/17 06:48 Roxicodone - PO 5 mg Q8H PRN Administration PAIN 7-10 Sacubitril/Valsartan 1 tab 10/12/17 22:00 10/13/17 13:27 Entresto 24 Mg-26 Mg Tablet PO 1 tab BID [facility] Administration Senna 2 tab 10/12/17 22:00 10/12/17 21:09 Senna - PO 2 tab HS [facility] Administration Senna/Docusate Sodium 1 tablet 10/13/17 10:00 10/13/17 13:26 Pericolace - PO 1 tablet DAILY [facility] Administration Thiamine HCl 100 mg 10/13/17 10:00 10/13/17 13:26 Vitamin B1 - PO 100 mg DAILY [facility] Administration Warfarin Sodium 5 mg 10/12/17 18:00 10/12/17 17:41 Coumadin - PO 5 mg DAILY@1800 [facility] Administration Impression 1. ESRD 2. hx pericardial effusion 3. hx pneumopericardium 4. hypothyroidism 5. a-fib 6. hypotension 7. hx of colon cancer 8. CHF 9. DM 10. hx of PE 11. CAD 12. foot ulcer Plan - pt tolerated HD today - arrange for HD again tomorrow for volume removal - discussed fluid intake with pt - wound care to foot - epogen for anemia - monitor bp - will follow Dr Conklin
[2017-10-13] MEDS: morphine SULFATE 10 MG/5 ML UNIT-DOSE CUP PO SCH (17:44)
[2017-10-13] MEDS: COLLAGENASE CLOSTRIDIUM HIST. 30 GRAMS TUBE TP SCH (18:27)
[2017-10-13] MEDS: WARFARIN NA 5 MG TABLET (UD) PO SCH (18:52)
[2017-10-13] MEDS: diphenhydrAMINE HCL 25 MG CAPSULE (FP) PO PRN (18:52)
[2017-10-13] MEDS ORDERED: oxyCODONE HCL 5 MG TABLET PO ONE (20:47)
[2017-10-13] MEDS: SENNOSIDES 8.6MG TABLET (FP) PO SCH (22:11)
[2017-10-13] MEDS: MELATONIN 5 MG TABLETS PO PRN (22:12)
[2017-10-14] MEDS ORDERED: PIPERACILLIN/TAZOBACTAM 2.25 GM VIAL IVPB ONE ×3 (00:54→18:31)
[2017-10-14] MEDS ORDERED: DEXTROSE 5%-WATER 100 ML IVPB ONE ×3 (00:55→18:32)
[2017-10-14] MEDS: oxyCODONE HCL 5 MG TABLET PO PRN ×3 (01:10→18:43)
[2017-10-14] MEDS: ACETAMINOPHEN 325 MG TABLET (FP) PO PRN ×3 (01:11→18:43)
[2017-10-14] MEDS: PIPERACILLIN/TAZOB 2.25 GM 2.25 GM in DEXTROSE 5%-WATER 100 ML IVPB SCH ×3 (01:11→18:40)
[2017-10-14 06:06] LABS: HBSAG SCREEN Negative (Negative); HEP B CORE AB, TOT Negative (Negative)
[2017-10-14] MEDS: INSULIN SLIDING SCALE (NOVOLOG) 1 VIAL SQ SCH ×2 (06:18→18:39)
[2017-10-14] MEDS: MORPHINE SULFATE 2 MG/ML VIAL IVPUSH PRN ×3 (06:18→21:55)
[2017-10-14] MEDS: LEVOTHYROXINE NA 75 MCG TABLET (FP) PO SCH (06:18)
[2017-10-14 07:24] LABS: INR 1.88 (0.83-1.09); PROTHROMBIN TIME (PATIENT) 21.3 SEC (9.7-13.0)
[2017-10-14] MEDS: CLOPIDOGREL BISULFATE 75 MG TABLET (FP) PO SCH (10:41)
[2017-10-14] MEDS: SACUBITRIL/VALSARTAN 24 MG-26 MG TABLET PO SCH ×2 (10:41→21:49)
[2017-10-14] MEDS: VITAMIN B COMP W-C 1 EA TABLET PO SCH (10:42)
[2017-10-14] MEDS: THIAMINE HCL 100 MG TABLET (FP) PO SCH (10:42)
[2017-10-14] MEDS: COLLAGENASE CLOSTRIDIUM HIST. 30 GRAMS TUBE TP SCH (10:42)
[2017-10-14] MEDS: SENNOSIDES/DOCUSATE COMBO (SENNA PLUS) TABLET (UD) PO SCH (10:42)
[2017-10-14] MEDS: metoPROLOL SUCCINATE 25 MG TAB.SR.24H (FP) PO SCH (10:46)
--- NOTE | 2017-10-14 12:32 | PN ---
Progress Note (short form) - Note Progress Note: comfortable pain ok pod # 2 Vital Signs Temp 97.7 F 10/14/17 05:46 Pulse 67 10/14/17 05:46 Resp 18 10/14/17 05:46 BP 101/65 10/14/17 05:46 Pulse Ox 99 10/13/17 21:00 Intake & Output 10/13/17 10/14/17 10/14/17 23:59 11:59 23:59 Intake Total 150 200 Balance 150 200 Weight 220 lb 1 oz Intake: IVPB 100 Oral 150 100 Other: Voiding Method Toilet Urinal Active Medications Acetaminophen (Tylenol -) 325 mg PO Q8H PRN PRN Reason: PAIN LEVEL 7 - 10 Last Admin: 10/14/17 10:53 Dose: 325 mg Albumin Human (Albumin Human 25%) 12.5 gm IVPB Q30M [facility] Clopidogrel Bisulfate (Plavix -) 75 mg PO DAILY [facility] Last Admin: 10/14/17 10:41 Dose: 75 mg Collagenase (Santyl -) 1 applic TP DAILY [facility]; Protocol Last Admin: 10/14/17 10:42 Dose: 1 applic Diphenhydramine HCl (Benadryl -) 25 mg PO Q8H PRN PRN Reason: ITCHING Last Admin: 10/13/17 18:52 Dose: 25 mg Sodium Chloride (Normal Saline -) 250 mls @ 3,000 mls/hr IV PRN PRN PRN Reason: Hypotension during Dialysis Piperacillin Sod/Tazobactam (Sod 2.25 gm/ Dextrose) 100 mls @ 100 mls/hr IVPB Q8H-IV [facility]; Protocol Last Admin: 10/14/17 10:42 Dose: 100 mls/hr Sodium Chloride (Normal Saline -) 250 mls @ 3,000 mls/hr IV PRN PRN PRN Reason: Hypotension during Dialysis Stop: 10/14/17 14:31 Insulin Aspart (Novolog Vial Sliding Scale -) 1 vial SQ BIDAC [facility]; Protocol Last Admin: 10/14/17 06:18 Dose: Not Given Levothyroxine Sodium (Synthroid -) 75 mcg PO DAILY@0700 [facility] Last Admin: 10/14/17 06:18 Dose: 75 mcg Melatonin (Melatonin) 5 mg PO HS PRN PRN Reason: INSOMNIA Last Admin: 08/31/18 22:12 Dose: 5 mg Metoprolol Succinate (Toprol Xl -) 12.5 mg PO DAILY [facility] Last Admin: 10/14/17 10:46 Dose: 12.5 mg Morphine Sulfate (Morphine Sulfate) 2 mg IVPUSH Q4H PRN PRN Reason: PAIN LEVEL 7 - 10 Last Admin: 10/14/17 06:18 Dose: 2 mg Multivit/Ca Carb/B Cmplx/FA/Prenat (Nephro-Fer -) 1 tablet PO DAILY [facility] Last Admin: 10/14/17 10:42 Dose: 1 tablet Oxycodone HCl (Roxicodone -) 5 mg PO Q8H PRN PRN Reason: PAIN 7-10 Last Admin: 10/14/17 10:52 Dose: 5 mg Sacubitril/Valsartan (Entresto 24 Mg-26 Mg Tablet) 1 tab PO BID [facility] Last Admin: 10/14/17 10:41 Dose: 1 tab Senna (Senna -) 2 tab PO HS [facility] Last Admin: 10/13/17 22:11 Dose: 2 tab Senna/Docusate Sodium (Pericolace -) 1 tablet PO DAILY [facility] Last Admin: 10/14/17 10:42 Dose: 1 tablet Thiamine HCl (Vitamin B1 -) 100 mg PO DAILY [facility] Last Admin: 10/14/17 10:42 Dose: 100 mg Warfarin Sodium (Coumadin -) 5 mg PO DAILY@1800 [facility] Last Admin: 10/13/17 18:52 Dose: 5 mg CBC, BMP 10/13/17 08:50 10/13/17 10:30 Physical Exam. Alert/ awake. Comfortable neck: Yes: WNL, Supple, Trachea Midline Cardiovascular: Yes: Pulse regular, S1, S2 Respiratory: Yes: WNL, Regular, CTA Bilaterally, On Nasal O2 Gastrointestinal: Yes: Normal Bowel Sounds, Soft. A/P Right foor cellulitis DM CHF S/P right posterior tibial artery re-vascularization and subsequent foot amputation digit-2-5 afib PE Colon ca- s/p resection peripheral neuropathy ESRD on HD stable pain control Monitor blood sugar f/u cultures abx will follow Problem List - Problems (1) Cellulitis Code(s): L03.90 - CELLULITIS, UNSPECIFIED Qualifiers: Site of cellulitis: extremity Site of cellulitis of extremity: lower extremity Laterality: right Qualified Code(s): L03.115 - Cellulitis of right lower limb (2) Diabetic foot ulcer Code(s): E11.621 - TYPE 2 DIABETES MELLITUS WITH FOOT ULCER; L97.509 - NON- PRESSURE CHRONIC ULCER OTH PRT UNSP FOOT W UNSP SEVERITY (3) Amputated toe of right foot Code(s): Z89.421 - ACQUIRED ABSENCE OF OTHER RIGHT TOE(S) (4) Atrial fibrillation Code(s): I48.91 - UNSPECIFIED ATRIAL FIBRILLATION Qualifiers: Atrial fibrillation type: permanent Qualified Code(s): I48.2 - Chronic atrial fibrillation (5) Cardiomyopathy Code(s): I42.9 - CARDIOMYOPATHY, UNSPECIFIED Qualifiers: Cardiomyopathy type: unspecified Qualified Code(s): I42.9 - Cardiomyopathy , unspecified (6) Chronic anticoagulation Code(s): Z79.01 - ROBOTICS TECHNOLOGIST (CURRENT) USE OF 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
--- NOTE | 2017-10-14 13:46 | PN ---
Progress Note, Physician History of Present Illness: Pt seen and examined. Events noted. Pt is s/p Rt foot revision of 2-5th digit amputation site with bone debridement POD#2. He is afebrile. c/o Pain in Rt foot. - Current Medication List Current Medications: Active Medications Acetaminophen (Tylenol -) 325 mg PO Q8H PRN PRN Reason: PAIN LEVEL 7 - 10 Last Admin: 10/14/17 10:53 Dose: 325 mg Albumin Human (Albumin Human 25%) 12.5 gm IVPB Q30M [facility] Clopidogrel Bisulfate (Plavix -) 75 mg PO DAILY [facility] Last Admin: 10/14/17 10:41 Dose: 75 mg Collagenase (Santyl -) 1 applic TP DAILY [facility]; Protocol Last Admin: 10/14/17 10:42 Dose: 1 applic Diphenhydramine HCl (Benadryl -) 25 mg PO Q8H PRN PRN Reason: ITCHING Last Admin: 10/13/17 18:52 Dose: 25 mg Sodium Chloride (Normal Saline -) 250 mls @ 3,000 mls/hr IV PRN PRN PRN Reason: Hypotension during Dialysis Piperacillin Sod/Tazobactam (Sod 2.25 gm/ Dextrose) 100 mls @ 100 mls/hr IVPB Q8H-IV [facility]; Protocol Last Admin: 10/14/17 10:42 Dose: 100 mls/hr Sodium Chloride (Normal Saline -) 250 mls @ 3,000 mls/hr IV PRN PRN PRN Reason: Hypotension during Dialysis Stop: 10/14/17 14:31 Insulin Aspart (Novolog Vial Sliding Scale -) 1 vial SQ BIDAC [facility]; Protocol Last Admin: 10/14/17 06:18 Dose: Not Given Levothyroxine Sodium (Synthroid -) 75 mcg PO DAILY@0700 [facility] Last Admin: 10/14/17 06:18 Dose: 75 mcg Melatonin (Melatonin) 5 mg PO HS PRN PRN Reason: INSOMNIA Last Admin: 10/13/17 22:12 Dose: 5 mg Metoprolol Succinate (Toprol Xl -) 12.5 mg PO DAILY [facility] Last Admin: 10/14/17 10:46 Dose: 12.5 mg Morphine Sulfate (Morphine Sulfate) 2 mg IVPUSH Q4H PRN PRN Reason: PAIN LEVEL 7 - 10 Last Admin: 10/14/17 06:18 Dose: 2 mg Multivit/Ca Carb/B Cmplx/FA/Prenat (Nephro-Fer -) 1 tablet PO DAILY [facility] Last Admin: 10/14/17 10:42 Dose: 1 tablet Oxycodone HCl (Roxicodone -) 5 mg PO Q8H PRN PRN Reason: PAIN 7-10 Last Admin: 10/14/17 10:52 Dose: 5 mg Sacubitril/Valsartan (Entresto 24 Mg-26 Mg Tablet) 1 tab PO BID [facility] Last Admin: 10/14/17 10:41 Dose: 1 tab Senna (Senna -) 2 tab PO HS [facility] Last Admin: 10/13/17 22:11 Dose: 2 tab Senna/Docusate Sodium (Pericolace -) 1 tablet PO DAILY [facility] Last Admin: 10/14/17 10:42 Dose: 1 tablet Thiamine HCl (Vitamin B1 -) 100 mg PO DAILY [facility] Last Admin: 10/14/17 10:42 Dose: 100 mg Warfarin Sodium (Coumadin -) 5 mg PO DAILY@1800 [facility] Last Admin: 10/13/17 18:52 Dose: 5 mg - Objective Vital Signs: Vital Signs Temperature 97.7 F 10/14/17 05:46 Pulse Rate 67 10/14/17 05:46 Respiratory Rate 18 10/14/17 05:46 Blood Pressure 101/65 10/14/17 05:46 O2 Sat by Pulse Oximetry (%) 99 10/13/17 21:00 Constitutional: Yes: No Distress, Calm Cardiovascular: Yes: Regular Rate and Rhythm Respiratory: Yes: Regular Gastrointestinal: Yes: Normal Bowel Sounds, Soft Edema: Yes (RLE) Wound/Incision: Yes: Dressing Dry and Intact Neurological: Yes: Alert, Oriented Labs: CBC, BMP 10/13/17 08:50 10/13/17 10:30 INR, PTT INR 1.88 (0.83-1.09) H 10/14/17 06:00 Bone culture - pending Problem List - Problems (1) Cellulitis Code(s): L03.90 - CELLULITIS, UNSPECIFIED Qualifiers: Site of cellulitis: extremity Site of cellulitis of extremity: lower extremity Laterality: right Qualified Code(s): L03.115 - Cellulitis of right lower limb (2) Diabetic foot ulcer Code(s): E11.621 - TYPE 2 DIABETES MELLITUS WITH FOOT ULCER; L97.509 - NON- PRESSURE CHRONIC ULCER OTH PRT UNSP FOOT W UNSP SEVERITY (3) Amputated toe of right foot Code(s): Z89.421 - ACQUIRED ABSENCE OF OTHER RIGHT TOE(S) (4) Anemia Code(s): D64.9 - ANEMIA, UNSPECIFIED Qualifiers: Anemia type: due to chronic kidney disease (5) Atrial fibrillation Code(s): I48.91 - UNSPECIFIED ATRIAL FIBRILLATION Qualifiers: Atrial fibrillation type: permanent Qualified Code(s): I48.2 - Chronic atrial fibrillation (6) Cardiomyopathy Code(s): I42.9 - CARDIOMYOPATHY, UNSPECIFIED Qualifiers: Cardiomyopathy type: unspecified Qualified Code(s): I42.9 - Cardiomyopathy , unspecified (7) Cellulitis of right lower extremity Code(s): L03.115 - CELLULITIS OF RIGHT LOWER LIMB (8) 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 Code(s): E11.9 - TYPE 2 DIABETES MELLITUS WITHOUT COMPLICATIONS Qualifiers: 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 type: type 2 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 medical certification specialist insulin use: without [place] [facility] use 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 complication status: without complication Qualified Code(s): E11.9 - Type 2 diabetes mellitus without complications (9) ESRD (end stage renal disease) Code(s): N18.6 - END STAGE RENAL DISEASE (10) HTN (hypertension) Code(s): I10 - ESSENTIAL (PRIMARY) HYPERTENSION Qualifiers: Hypertension type: essential hypertension Qualified Code(s): I10 - Essential (primary) hypertension (11) Open wound of foot Code(s): S91.309A - UNSPECIFIED OPEN WOUND, UNSPECIFIED FOOT, INITIAL ENCOUNTER Qualifiers: Encounter type: subsequent encounter Laterality: right Qualified Code(s) : S91.301D - Unspecified open wound, right foot, subsequent encounter (12) Osteomyelitis Code(s): M86.9 - OSTEOMYELITIS, UNSPECIFIED Qualifiers: Osteomyelitis type: other Osteomyelitis location: foot Laterality: right Qualified Code(s): M86.8X7 - Other osteomyelitis, ankle and foot (13) Status post peripheral artery angioplasty Code(s): Z98.62 - PERIPHERAL VASCULAR ANGIOPLASTY STATUS Assessment/Plan 72 y.o. male with PMH of ESRD on HD, DM with peripheral neuropathy, CHF, COPD, PE, PAD s/p Rt tib revascularization, s/p RT foot gangrene with amputation of Rt 2/3/4/ toe presenting with Rt foot cellulitis/infected amputation site Rt foot wound Infection s/p revision of amp site with bone debridement POD#2 DM with neuropathy PAD s/p revascularization Rt tibial ESRD on HD -- continue current antibiotics -- f/u bone biopsy results -- continue wound care, monitor site for healing -- pain control pt afebrile, vitals stable at this time
--- NOTE | 2017-10-14 14:17 | PN ---
Progress Note, Physician History of Present Illness: Pt seen and examined at bedside. He is going for HD again today. - Current Medication List Current Medications: Active Medications Acetaminophen (Tylenol -) 325 mg PO Q8H PRN PRN Reason: PAIN LEVEL 7 - 10 Last Admin: 10/14/17 10:53 Dose: 325 mg Albumin Human (Albumin Human 25%) 12.5 gm IVPB Q30M [facility] Clopidogrel Bisulfate (Plavix -) 75 mg PO DAILY [facility] Last Admin: 10/14/17 10:41 Dose: 75 mg Collagenase (Santyl -) 1 applic TP DAILY [facility]; Protocol Last Admin: 10/14/17 10:42 Dose: 1 applic Diphenhydramine HCl (Benadryl -) 25 mg PO Q8H PRN PRN Reason: ITCHING Last Admin: 10/13/17 18:52 Dose: 25 mg Sodium Chloride (Normal Saline -) 250 mls @ 3,000 mls/hr IV PRN PRN PRN Reason: Hypotension during Dialysis Piperacillin Sod/Tazobactam (Sod 2.25 gm/ Dextrose) 100 mls @ 100 mls/hr IVPB Q8H-IV [facility]; Protocol Last Admin: 10/14/17 10:42 Dose: 100 mls/hr Sodium Chloride (Normal Saline -) 250 mls @ 3,000 mls/hr IV PRN PRN PRN Reason: Hypotension during Dialysis Stop: 10/14/17 14:31 Insulin Aspart (Novolog Vial Sliding Scale -) 1 vial SQ BIDAC [facility]; Protocol Last Admin: 10/14/17 06:18 Dose: Not Given Levothyroxine Sodium (Synthroid -) 75 mcg PO DAILY@0700 [facility] Last Admin: 10/14/17 06:18 Dose: 75 mcg Melatonin (Melatonin) 5 mg PO HS PRN PRN Reason: INSOMNIA Last Admin: 10/13/17 22:12 Dose: 5 mg Metoprolol Succinate (Toprol Xl -) 12.5 mg PO DAILY [facility] Last Admin: 10/14/17 10:46 Dose: 12.5 mg Morphine Sulfate (Morphine Sulfate) 2 mg IVPUSH Q4H PRN PRN Reason: PAIN LEVEL 7 - 10 Last Admin: 10/14/17 14:01 Dose: 2 mg Multivit/Ca Carb/B Cmplx/FA/Prenat (Nephro-Fer -) 1 tablet PO DAILY [facility] Last Admin: 10/14/17 10:42 Dose: 1 tablet Oxycodone HCl (Roxicodone -) 5 mg PO Q8H PRN PRN Reason: PAIN 7-10 Last Admin: 10/14/17 10:52 Dose: 5 mg Sacubitril/Valsartan (Entresto 24 Mg-26 Mg Tablet) 1 tab PO BID [facility] Last Admin: 10/14/17 10:41 Dose: 1 tab Senna (Senna -) 2 tab PO HS [facility] Last Admin: 10/13/17 22:11 Dose: 2 tab Senna/Docusate Sodium (Pericolace -) 1 tablet PO DAILY [facility] Last Admin: 10/14/17 10:42 Dose: 1 tablet Thiamine HCl (Vitamin B1 -) 100 mg PO DAILY [facility] Last Admin: 10/14/17 10:42 Dose: 100 mg Warfarin Sodium (Coumadin -) 5 mg PO DAILY@1800 [facility] Last Admin: 10/13/17 18:52 Dose: 5 mg - Objective Vital Signs: Vital Signs Temperature 97.7 F 10/14/17 05:46 Pulse Rate 67 10/14/17 05:46 Respiratory Rate 18 10/14/17 05:46 Blood Pressure 101/65 10/14/17 05:46 O2 Sat by Pulse Oximetry (%) 99 10/13/17 21:00 Constitutional: Yes: Calm Eyes: Yes: Conjunctiva Clear HENT: Yes: Atraumatic Neck: Yes: Supple Cardiovascular: Yes: S1, S2 Respiratory: Yes: CTA Bilaterally Gastrointestinal: Yes: Soft Genitourinary: Yes: WNL Musculoskeletal: Yes: Other (dressing in place) Edema: Yes Edema: LLE: 1+, RLE: 1+ Neurological: Yes: Oriented Psychiatric: Yes: Oriented Labs: CBC, BMP 10/13/17 08:50 10/13/17 10:30 INR, PTT INR 1.88 (0.83-1.09) H 10/14/17 06:00 Problem List - Problems (1) Cellulitis Code(s): L03.90 - CELLULITIS, UNSPECIFIED Qualifiers: Site of cellulitis: extremity Site of cellulitis of extremity: lower extremity Laterality: right Qualified Code(s): L03.115 - Cellulitis of right lower limb (2) Diabetic foot ulcer Code(s): E11.621 - TYPE 2 DIABETES MELLITUS WITH FOOT ULCER; L97.509 - NON- PRESSURE CHRONIC ULCER OTH PRT UNSP FOOT W UNSP SEVERITY (3) Anemia Code(s): D64.9 - ANEMIA, UNSPECIFIED Qualifiers: Anemia type: due to chronic kidney disease (4) Atrial fibrillation Code(s): I48.91 - UNSPECIFIED ATRIAL FIBRILLATION Qualifiers: Atrial fibrillation type: permanent Qualified Code(s): I48.2 - Chronic atrial fibrillation (5) ESRD (end stage renal disease) Code(s): N18.6 - END STAGE RENAL DISEASE Assessment/Plan Current Medications Generic Name Dose Route Start Last Admin Trade Name Freq PRN Reason Stop Dose Admin Acetaminophen 325 mg 10/12/17 12:17 10/14/17 10:53 Tylenol - PO 325 mg Q8H PRN Administration PAIN LEVEL 7 - 10 Albumin Human 12.5 gm 10/14/17 14:45 Albumin Human 25% IVPB Q30M [facility] Clopidogrel Bisulfate 75 mg 10/13/17 10:00 10/14/17 10:41 Plavix - PO 75 mg DAILY [facility] Administration Collagenase 1 applic 10/13/17 10:00 10/14/17 10:42 Santyl - TP 1 applic DAILY [facility] Administration Protocol Diphenhydramine HCl 25 mg 10/12/17 12:17 10/13/17 18:52 Benadryl - PO 25 mg Q8H PRN Administration ITCHING Sodium Chloride 250 mls @ 3,000 mls/hr 10/13/17 09:15 Normal Saline - IV PRN PRN Hypotension during Dialysis Piperacillin Sod/Tazobactam 100 mls @ 100 mls/hr 10/12/17 19:54 10/14/17 10: 42 Sod 2.25 gm/ Dextrose IVPB 100 mls/hr Q8H-IV [facility] Administration Protocol Sodium Chloride 250 mls @ 3,000 mls/hr 10/13/17 14:31 Normal Saline - IV 10/14/17 14:31 PRN PRN Hypotension during Dialysis Insulin Aspart 1 vial 10/12/17 16:30 10/14/17 06:18 Novolog Vial Sliding Scale - SQ Not Given BIDAC [facility] Protocol Levothyroxine Sodium 75 mcg 10/13/17 07:00 10/14/17 06:18 Synthroid - PO 75 mcg DAILY@0700 [facility] Administration Melatonin 5 mg 10/12/17 22:00 10/13/17 22:12 Melatonin PO 5 mg HS PRN Administration INSOMNIA Metoprolol Succinate 12.5 mg 10/13/17 10:00 10/14/17 10:46 Toprol Xl - PO 12.5 mg DAILY [facility] Administration Morphine Sulfate 2 mg 10/13/17 11:32 10/14/17 14:01 Morphine Sulfate IVPUSH 2 mg Q4H PRN Administration PAIN LEVEL 7 - 10 Multivit/Ca Carb/B Cmplx/FA/Prenat 1 tablet 10/13/17 10:00 10/14/17 10:42 Nephro-Fer - PO 1 tablet DAILY [facility] Administration Oxycodone HCl 5 mg 10/12/17 12:17 10/14/17 10:52 Roxicodone - PO 5 mg Q8H PRN Administration PAIN 7-10 Sacubitril/Valsartan 1 tab 10/12/17 22:00 10/14/17 10:41 Entresto 24 Mg-26 Mg Tablet PO 1 tab BID [facility] Administration Senna 2 tab 10/12/17 22:00 10/13/17 22:11 Senna - PO 2 tab HS [facility] Administration Senna/Docusate Sodium 1 tablet 10/13/17 10:00 10/14/17 10:42 Pericolace - PO 1 tablet DAILY [facility] Administration Thiamine HCl 100 mg 10/13/17 10:00 10/14/17 10:42 Vitamin B1 - PO 100 mg DAILY VIRAJ Administration Warfarin Sodium 5 mg 10/12/17 18:00 10/13/17 18:52 Coumadin - PO 5 mg DAILY@1800 VIRAJ Administration Impression 1. ESRD 2. hx pericardial effusion 3. hx pneumopericardium 4. hypothyroidism 5. a-fib 6. hypotension 7. hx of colon cancer 8. CHF 9. DM 10. hx of PE 11. CAD 12. foot ulcer Plan - will arrange for HD today - volume status is improving - HD 4 times per week to help with pericardial effusion - cont wound care - epogen for anemia - monitor bp - will follow Dr Conklin
[2017-10-14] MEDS: ALBUMIN HUMAN 25% 12.5 GM/50 ML VIAL IVPB SCH ×4 (14:45→16:15)
[2017-10-14 15:58] LABS: HEMOGLOBIN 11.3 GM/dL (11.7-16.9); MCH 29.4 pg (25.7-33.7); MCHC 32.3 g/dl (32.0-35.9); MEAN PLT VOLUME 9.4 fl (7.5-11.1); RBC 3.85 M/mm3 (4.00-5.60); RDW 18.4 % (11.9-15.9); WHITE BLOOD COUNT 4.6 K/mm3 (4.0-10.0)
[2017-10-14 16:31] LABS: ANION GAP 13 MMOL/L (8-16); BLOOD UREA NITROGEN 14 mg/dL (7-18); CALCIUM 8.6 mg/dL (8.5-10.1); CHLORIDE 94 mmol/L (98-107); CO2 27 mmol/L (21-32); CREATININE 5.4 mg/dL (0.7-1.3); GLUCOSE,RANDOM 142 mg/dL (74-106); POTASSIUM 3.4 mmol/L (3.5-5.1); SODIUM 134 mmol/L (136-145)
--- NOTE | 2017-10-14 16:53 | PN ---
Progress Note (short form) - Note Progress Note: FUV right foot today POD#2. Seen in dialysis. VSS. Tmax 97.6 +clean dry dressing intact right foot, wbc=4.6, +coapted, -necrosis of incision line, normal post op Packing pulled today. Patient seen resting in dialysis. No pain Renewed oxycodone. Dresing left in place. Patient is under strict bed rest orders. Can go to bathroom but must go back to bed.
[2017-10-14 17:35] LABS: PLATELET COUNT 176 K/MM3 (134-434)
[2017-10-14] MEDS: WARFARIN NA 5 MG TABLET (UD) PO SCH (18:39)
[2017-10-14] MEDS: SENNOSIDES 8.6MG TABLET (FP) PO SCH (21:48)
[2017-10-14] MEDS: MELATONIN 5 MG TABLETS PO PRN (21:49)
[2017-10-14] MEDS: diphenhydrAMINE HCL 25 MG CAPSULE (FP) PO PRN (21:49)
[2017-10-15] MEDS ORDERED: PIPERACILLIN/TAZOBACTAM 2.25 GM VIAL IVPB ONE ×4 (01:21→18:27)
[2017-10-15] MEDS ORDERED: DEXTROSE 5%-WATER 100 ML IVPB ONE ×3 (01:22→18:18)
[2017-10-15] MEDS: oxyCODONE HCL 5 MG TABLET PO PRN ×3 (02:42→18:28)
[2017-10-15] MEDS: ACETAMINOPHEN 325 MG TABLET (FP) PO PRN ×2 (02:42→18:38)
[2017-10-15] MEDS: PIPERACILLIN/TAZOB 2.25 GM 2.25 GM in DEXTROSE 5%-WATER 100 ML IVPB SCH ×3 (03:13→18:24)
[2017-10-15] MEDS: LEVOTHYROXINE NA 75 MCG TABLET (FP) PO SCH (06:00)
[2017-10-15] MEDS: INSULIN SLIDING SCALE (NOVOLOG) 1 VIAL SQ SCH ×2 (06:00→17:25)
[2017-10-15 07:51] LABS: BASO % 1.7 % (0-2.0); EOS % 5.6 % (0-4.5); HEMATOCRIT 34.8 % (35.4-49); HEMOGLOBIN 10.9 GM/dL (11.7-16.9); LYMPH % 13.6 % (8-40); MCH 28.6 pg (25.7-33.7); MCHC 31.2 g/dl (32.0-35.9); MEAN CELL VOLUME 91.6 fl (80-96); MEAN PLT VOLUME 9.4 fl (7.5-11.1); MONO % 23.8 % (3.8-10.2); NEUT % 55.3 % (42.8-82.8); PLATELET COUNT 161 K/MM3 (134-434); RDW 18.4 % (11.9-15.9); WHITE BLOOD COUNT 4.1 K/mm3 (4.0-10.0)
[2017-10-15 08:41] LABS: ALBUMIN 2.4 g/dl (3.4-5.0); ANION GAP 13 MMOL/L (8-16); BLOOD UREA NITROGEN 10 mg/dL (7-18); CALCIUM 8.9 mg/dL (8.5-10.1); CHLORIDE 94 mmol/L (98-107); CO2 29 mmol/L (21-32); GLUCOSE,RANDOM 81 mg/dL (74-106); POTASSIUM 3.4 mmol/L (3.5-5.1); SGOT/AST 29 U/L (15-37); SODIUM 136 mmol/L (136-145)
[2017-10-15 08:43] LABS: ALK PHOS 92 U/L (45-117); BILIRUBIN,TOTAL 0.9 mg/dL (0.2-1.0); CREATININE 4.5 mg/dL (0.7-1.3); SGPT/ALT 12 U/L (12-78); TOT PROT 7.5 g/dl (6.4-8.2)
[2017-10-15 09:09] LABS: INR 1.96 (0.83-1.09); PROTHROMBIN TIME (PATIENT) 22.2 SEC (9.7-13.0)
[2017-10-15] MEDS: MORPHINE SULFATE 2 MG/ML VIAL IVPUSH PRN ×2 (09:52→20:58)
[2017-10-15] MEDS ORDERED: PT OWN MED DRAWER 7, Y5N ONE ×3 (10:53→20:23)
[2017-10-15] MEDS: CLOPIDOGREL BISULFATE 75 MG TABLET (FP) PO SCH (10:56)
[2017-10-15] MEDS: VITAMIN B COMP W-C 1 EA TABLET PO SCH (10:56)
[2017-10-15] MEDS: diphenhydrAMINE HCL 25 MG CAPSULE (FP) PO PRN ×2 (10:57→21:01)
[2017-10-15] MEDS: metoPROLOL SUCCINATE 25 MG TAB.SR.24H (FP) PO SCH (10:57)
[2017-10-15] MEDS: THIAMINE HCL 100 MG TABLET (FP) PO SCH (10:57)
[2017-10-15] MEDS: SENNOSIDES/DOCUSATE COMBO (SENNA PLUS) TABLET (UD) PO SCH (10:58)
[2017-10-15] MEDS: SACUBITRIL/VALSARTAN 24 MG-26 MG TABLET PO SCH ×2 (10:58→21:02)
[2017-10-15] MEDS: COLLAGENASE CLOSTRIDIUM HIST. 30 GRAMS TUBE TP SCH (10:59)
--- NOTE | 2017-10-15 13:01 | PN ---
Progress Note (short form) - Note Progress Note: FUV right foot today POD#3. Seen in bed. VSS. Tmax 98.7 +clean dry dressing intact right foot, wbc=4.1, +coapted suture line, - necrosis of incision line, +grade 2-3 ulceration developing proximal to incision line dorsally in midfoot area, +serosanguinous drainage normal post op grade2-3 wound dorsal midfoot No pain Vac to dorsum of right foot wound not to incision line, Left heel santyl dressing changes. Patient is under strict bed rest orders. Can go to bathroom but must go back to bed. Discussed with his nurse the application of vac and specific location. Betadine dressing applied by me.
--- NOTE | 2017-10-15 13:10 | PN ---
Progress Note (short form) - Note Progress Note: pain issues - otherwise ok pod # 3 Vital Signs Temp 98.7 F 10/15/17 10:00 Pulse 53 L 10/15/17 10:00 Resp 18 10/15/17 10:00 BP 124/74 10/15/17 10:00 Pulse Ox 99 10/15/17 09:00 Intake & Output 10/14/17 10/15/17 10/15/17 23:59 11:59 23:59 Intake Total 200 50 Balance 200 50 Weight 218 lb 9 oz Intake: IVPB 50 Oral 200 Other: Voiding Method Toilet Urinal Bowel Movement Yes: 1 Active Medications Acetaminophen (Tylenol -) 325 mg PO Q8H PRN PRN Reason: PAIN LEVEL 7 - 10 Last Admin: 10/15/17 02:42 Dose: 325 mg Clopidogrel Bisulfate (Plavix -) 75 mg PO DAILY [facility] Last Admin: 10/15/17 10:56 Dose: 75 mg Collagenase (Santyl -) 1 applic TP DAILY [facility]; Protocol Last Admin: 10/15/17 10:59 Dose: 1 applic Diphenhydramine HCl (Benadryl -) 25 mg PO Q8H PRN PRN Reason: ITCHING Last Admin: 10/15/17 10:57 Dose: 25 mg Piperacillin Sod/Tazobactam (Sod 2.25 gm/ Dextrose) 100 mls @ 100 mls/hr IVPB Q8H-IV [facility]; Protocol Last Admin: 10/15/17 10:56 Dose: 100 mls/hr Insulin Aspart (Novolog Vial Sliding Scale -) 1 vial SQ BIDAC [facility]; Protocol Last Admin: 10/15/17 06:00 Dose: Not Given Levothyroxine Sodium (Synthroid -) 75 mcg PO DAILY@0700 [facility] Last Admin: 10/15/17 06:00 Dose: 75 mcg Melatonin (Melatonin) 5 mg PO HS PRN PRN Reason: INSOMNIA Last Admin: 10/14/17 21:49 Dose: 5 mg Metoprolol Succinate (Toprol Xl -) 12.5 mg PO DAILY [facility] Last Admin: 10/15/17 10:57 Dose: Not Given Morphine Sulfate (Morphine Sulfate) 2 mg IVPUSH Q4H PRN PRN Reason: PAIN LEVEL 7 - 10 Last Admin: 10/15/17 09:52 Dose: 2 mg Multivit/Ca Carb/B Cmplx/FA/Prenat (Nephro-Fer -) 1 tablet PO DAILY [facility] Last Admin: 10/15/17 10:56 Dose: 1 tablet Oxycodone HCl (Roxicodone -) 5 mg PO Q8H PRN PRN Reason: PAIN 7-10 Last Admin: 10/15/17 11:11 Dose: 5 mg Sacubitril/Valsartan (Entresto 24 Mg-26 Mg Tablet) 1 tab PO BID [facility] Last Admin: 10/15/17 10:58 Dose: 1 tab Senna (Senna -) 2 tab PO HS [facility] Last Admin: 10/14/17 21:48 Dose: 2 tab Senna/Docusate Sodium (Pericolace -) 1 tablet PO DAILY [facility] Last Admin: 10/15/17 10:58 Dose: 1 tablet Thiamine HCl (Vitamin B1 -) 100 mg PO DAILY [facility] Last Admin: 10/15/17 10:57 Dose: 100 mg Warfarin Sodium (Coumadin -) 5 mg PO DAILY@1800 [facility] Last Admin: 10/14/17 18:39 Dose: 5 mg CBC, BMP 10/15/17 06:00 10/15/17 06:00 INR, PTT INR 1.96 (0.83-1.09) H 10/15/17 06:00 Physical Exam. Alert/ awake. Pleasant . neck: Yes: WNL, Supple, Trachea Midline Cardiovascular: Yes: Pulse regular, S1, S2 Respiratory: Yes: WNL, Regular, CTA Bilaterally, On Nasal O2 Gastrointestinal: Yes: Normal Bowel Sounds, Soft Vac placed A/P Right foor cellulitis DM CHF S/P right posterior tibial artery re-vascularization and subsequent foot amputation digit-2-5 afib PE Colon ca- s/p resection peripheral neuropathy ESRD on HD stable pain control Monitor blood sugar Abx Will follow Problem List - Problems (1) Cellulitis Code(s): L03.90 - CELLULITIS, UNSPECIFIED Qualifiers: Site of cellulitis: extremity Site of cellulitis of extremity: lower extremity Laterality: right Qualified Code(s): L03.115 - Cellulitis of right lower limb (2) Diabetic foot ulcer Code(s): E11.621 - TYPE 2 DIABETES MELLITUS WITH FOOT ULCER; L97.509 - NON- PRESSURE CHRONIC ULCER OTH PRT UNSP FOOT W UNSP SEVERITY (3) Amputated toe of right foot Code(s): Z89.421 - ACQUIRED ABSENCE OF OTHER RIGHT TOE(S) (4) Atrial fibrillation Code(s): I48.91 - UNSPECIFIED ATRIAL FIBRILLATION Qualifiers: Atrial fibrillation type: permanent Qualified Code(s): I48.2 - Chronic atrial fibrillation (5) Cardiomyopathy Code(s): I42.9 - CARDIOMYOPATHY, UNSPECIFIED Qualifiers: Cardiomyopathy type: unspecified Qualified Code(s): I42.9 - Cardiomyopathy , unspecified (6) Chronic anticoagulation Code(s): Z79.01 - MCFP (CURRENT) USE OF 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
[2017-10-15 13:28] LABS: ANISOCYTOSIS 1+; MACROCYTOSIS 0; PLATELET ESTIMATE NORMAL
--- NOTE | 2017-10-15 14:45 | PN ---
Progress Note, Physician History of Present Illness: He denies chest pain, SOB or palpitations. He denies paroxysmal nocturnal dyspnea or orthopnea. He denies fever or chills. POD#3 debridement of bone and soft tissue with revision of partial TMA with improving post-op foot discomfort. Motor Home Electrical Foreman: Dr. Ghassan Durant - Current Medication List Current Medications: Active Medications Acetaminophen (Tylenol -) 325 mg PO Q8H PRN PRN Reason: PAIN LEVEL 7 - 10 Last Admin: 10/15/17 02:42 Dose: 325 mg Clopidogrel Bisulfate (Plavix -) 75 mg PO DAILY [facility] Last Admin: 10/15/17 10:56 Dose: 75 mg Collagenase (Santyl -) 1 applic TP DAILY [facility]; Protocol Last Admin: 10/15/17 10:59 Dose: 1 applic Diphenhydramine HCl (Benadryl -) 25 mg PO Q8H PRN PRN Reason: ITCHING Last Admin: 10/15/17 10:57 Dose: 25 mg Piperacillin Sod/Tazobactam (Sod 2.25 gm/ Dextrose) 100 mls @ 100 mls/hr IVPB Q8H-IV [facility]; Protocol Last Admin: 10/15/17 10:56 Dose: 100 mls/hr Insulin Aspart (Novolog Vial Sliding Scale -) 1 vial SQ BIDAC [facility]; Protocol Last Admin: 10/15/17 06:00 Dose: Not Given Levothyroxine Sodium (Synthroid -) 75 mcg PO DAILY@0700 [facility] Last Admin: 10/15/17 06:00 Dose: 75 mcg Melatonin (Melatonin) 5 mg PO HS PRN PRN Reason: INSOMNIA Last Admin: 10/14/17 21:49 Dose: 5 mg Metoprolol Succinate (Toprol Xl -) 12.5 mg PO DAILY [facility] Last Admin: 10/15/17 10:57 Dose: Not Given Morphine Sulfate (Morphine Sulfate) 2 mg IVPUSH Q4H PRN PRN Reason: PAIN LEVEL 7 - 10 Last Admin: 10/15/17 09:52 Dose: 2 mg Multivit/Ca Carb/B Cmplx/FA/Prenat (Nephro-Fer -) 1 tablet PO DAILY [facility] Last Admin: 10/15/17 10:56 Dose: 1 tablet Oxycodone HCl (Roxicodone -) 5 mg PO Q8H PRN PRN Reason: PAIN 7-10 Last Admin: 10/15/17 11:11 Dose: 5 mg Sacubitril/Valsartan (Entresto 24 Mg-26 Mg Tablet) 1 tab PO BID [facility] Last Admin: 10/15/17 10:58 Dose: 1 tab Senna (Senna -) 2 tab PO HS [facility] Last Admin: 10/14/17 21:48 Dose: 2 tab Senna/Docusate Sodium (Pericolace -) 1 tablet PO DAILY [facility] Last Admin: 10/15/17 10:58 Dose: 1 tablet Thiamine HCl (Vitamin B1 -) 100 mg PO DAILY [facility] Last Admin: 10/15/17 10:57 Dose: 100 mg Warfarin Sodium (Coumadin -) 5 mg PO DAILY@1800 [facility] Last Admin: 10/14/17 18:39 Dose: 5 mg - Objective Vital Signs: Vital Signs Temperature 98.7 F 10/15/17 10:00 Pulse Rate 53 L 10/15/17 10:00 Respiratory Rate 18 10/15/17 10:00 Blood Pressure 124/74 10/15/17 10:00 O2 Sat by Pulse Oximetry (%) 99 10/15/17 09:00 Constitutional: Yes: No Distress, Calm, Thin Neck: Yes: Supple Cardiovascular: Yes: Regular Rate and Rhythm Respiratory: Yes: Regular, Diminished, On Nasal O2 Gastrointestinal: Yes: Normal Bowel Sounds, Soft Edema: No Labs: CBC, BMP 10/15/17 06:00 10/15/17 06:00 INR, PTT INR 1.96 (0.83-1.09) H 10/15/17 06:00 Problem List - Problems (1) Atrial fibrillation Code(s): I48.91 - UNSPECIFIED ATRIAL FIBRILLATION Qualifiers: Atrial fibrillation type: permanent Qualified Code(s): I48.2 - Chronic atrial fibrillation (2) Cardiomyopathy Code(s): I42.9 - CARDIOMYOPATHY, UNSPECIFIED Qualifiers: Cardiomyopathy type: unspecified Qualified Code(s): I42.9 - Cardiomyopathy , unspecified (3) Chronic anticoagulation Code(s): Z79.01 - [employer] PATH[employer] (CURRENT) USE OF 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 (4) 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 Code(s): E11.9 - TYPE 2 DIABETES MELLITUS WITHOUT COMPLICATIONS Qualifiers: 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 type: type 2 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 mcc insulin use: without mcc use 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 complication status: without complication Qualified Code(s): E11.9 - Type 2 diabetes mellitus without complications (5) ESRD (end stage renal disease) Code(s): N18.6 - END STAGE RENAL DISEASE (6) HTN (hypertension) Code(s): I10 - ESSENTIAL (PRIMARY) HYPERTENSION Qualifiers: Hypertension type: essential hypertension Qualified Code(s): I10 - Essential (primary) hypertension (7) Hypothyroid Code(s): E03.9 - HYPOTHYROIDISM, UNSPECIFIED Qualifiers: Hypothyroidism type: unspecified Qualified Code(s): E03.9 - Hypothyroidism , unspecified (8) ICD (implantable cardioverter-defibrillator) in place Code(s): Z95.810 - PRESENCE OF AUTOMATIC (IMPLANTABLE) CARDIAC DEFIBRILLATOR (9) Open wound of foot Code(s): S91.309A - UNSPECIFIED OPEN WOUND, UNSPECIFIED FOOT, INITIAL ENCOUNTER Qualifiers: Encounter type: subsequent encounter Laterality: right Qualified Code(s) : S91.301D - Unspecified open wound, right foot, subsequent encounter (10) Osteomyelitis Code(s): M86.9 - OSTEOMYELITIS, UNSPECIFIED Qualifiers: Osteomyelitis type: other Osteomyelitis location: foot Laterality: right Qualified Code(s): M86.8X7 - Other osteomyelitis, ankle and foot (11) Pericardial effusion Code(s): I31.3 - PERICARDIAL EFFUSION (NONINFLAMMATORY) (12) Status post peripheral artery angioplasty Code(s): Z98.62 - PERIPHERAL VASCULAR ANGIOPLASTY STATUS Assessment/Plan 09/12/2017 Echo: Moderate pericardial effusion, no tamponade, mildly dilated LV with severely decreased LV fxn, mild-mod dilated RV with severely decreased RV fxn, mod-severe MUKUL, mild MR, mild-mod TR, mild AR 10/05/2017 Echo: Moderately dilated with severely decreased LV fxn, RV dilated with severely decreased RV fxn, mod LAE, mild MR, mod TR, mild AR, mod pericardial effusion similar to previous 1. Peripheral artery disease and gangrene right forefoot post right tibial revacularization and debridement of bone and soft tissue with transmetatarsal amputation planned for debridement bone and soft tissue with revision of partial TMA. 2. Ischemic dilated cardiomyopathy with chronic class I-II NYHA classification LV failure, compensated/euvolemic, post prophylactic ICD implant 3. CAD post ME with evidence of demand ischemic injury angina pectoris, clinically stable 4. Persistent atrial fibrillation [id number] score of 3-4 on Coumadin with subtherapeutic INR 5. Pericardial effusion probably uremic pericarditis, moderate in severity/ unchanged 6. 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 7. Hypothyroidism 8. History of PTE 9. ESRD 10. History of colon cancer PLAN: 1. Antibiotics course, wound care and analgesia as needed per the primary team 2. HD as per renal service and replete K 3. Continue Plavix 75 qd and Coumadin as per INR with close monitoring of CBC, unless surgical intervention is planned at which point to hold Coumadin 4. Continue Toprol XL 12.5 qd and titrate as hemodynamics permit/tolerate 5. Continue Entresto 24/26 bid and titrate as hemodynamics permit/tolerate [employer] Electrical Foreman: Dr. Ghassan Durant
--- NOTE | 2017-10-15 14:48 | PN ---
Progress Note, Physician History of Present Illness: Pt seen and examined at bedside. He is awake and alert. He denies shortness of breath. - Current Medication List Current Medications: Active Medications Acetaminophen (Tylenol -) 325 mg PO Q8H PRN PRN Reason: PAIN LEVEL 7 - 10 Last Admin: 10/15/17 02:42 Dose: 325 mg Clopidogrel Bisulfate (Plavix -) 75 mg PO DAILY [facility] Last Admin: 10/15/17 10:56 Dose: 75 mg Collagenase (Santyl -) 1 applic TP DAILY [facility]; Protocol Last Admin: 10/15/17 10:59 Dose: 1 applic Diphenhydramine HCl (Benadryl -) 25 mg PO Q8H PRN PRN Reason: ITCHING Last Admin: 10/15/17 10:57 Dose: 25 mg Piperacillin Sod/Tazobactam (Sod 2.25 gm/ Dextrose) 100 mls @ 100 mls/hr IVPB Q8H-IV [facility]; Protocol Last Admin: 10/15/17 10:56 Dose: 100 mls/hr Insulin Aspart (Novolog Vial Sliding Scale -) 1 vial SQ BIDAC [facility]; Protocol Last Admin: 10/15/17 06:00 Dose: Not Given Levothyroxine Sodium (Synthroid -) 75 mcg PO DAILY@0700 [facility] Last Admin: 10/15/17 06:00 Dose: 75 mcg Melatonin (Melatonin) 5 mg PO HS PRN PRN Reason: INSOMNIA Last Admin: 10/14/17 21:49 Dose: 5 mg Metoprolol Succinate (Toprol Xl -) 12.5 mg PO DAILY [facility] Last Admin: 10/15/17 10:57 Dose: Not Given Morphine Sulfate (Morphine Sulfate) 2 mg IVPUSH Q4H PRN PRN Reason: PAIN LEVEL 7 - 10 Last Admin: 10/15/17 09:52 Dose: 2 mg Multivit/Ca Carb/B Cmplx/FA/Prenat (Nephro-Fer -) 1 tablet PO DAILY [facility] Last Admin: 10/15/17 10:56 Dose: 1 tablet Oxycodone HCl (Roxicodone -) 5 mg PO Q8H PRN PRN Reason: PAIN 7-10 Last Admin: 10/15/17 11:11 Dose: 5 mg Sacubitril/Valsartan (Entresto 24 Mg-26 Mg Tablet) 1 tab PO BID [facility] Last Admin: 10/15/17 10:58 Dose: 1 tab Senna (Senna -) 2 tab PO HS [facility] Last Admin: 10/14/17 21:48 Dose: 2 tab Senna/Docusate Sodium (Pericolace -) 1 tablet PO DAILY [facility] Last Admin: 10/15/17 10:58 Dose: 1 tablet Thiamine HCl (Vitamin B1 -) 100 mg PO DAILY [facility] Last Admin: 10/15/17 10:57 Dose: 100 mg Warfarin Sodium (Coumadin -) 5 mg PO DAILY@1800 [facility] Last Admin: 10/14/17 18:39 Dose: 5 mg - Objective Vital Signs: Vital Signs Temperature 98.7 F 10/15/17 10:00 Pulse Rate 53 L 10/15/17 10:00 Respiratory Rate 18 10/15/17 10:00 Blood Pressure 124/74 10/15/17 10:00 O2 Sat by Pulse Oximetry (%) 99 10/15/17 09:00 Constitutional: Yes: Calm Eyes: Yes: Conjunctiva Clear HENT: Yes: Atraumatic Neck: Yes: Supple Cardiovascular: Yes: S1, S2 Respiratory: Yes: On Nasal O2 Gastrointestinal: Yes: Soft Genitourinary: Yes: WNL Musculoskeletal: Yes: WNL Edema: Yes Edema: LLE: 1+, RLE: 1+ Neurological: Yes: Oriented Psychiatric: Yes: Oriented Labs: CBC, BMP 10/15/17 06:00 10/15/17 06:00 INR, PTT INR 1.96 (0.83-1.09) H 10/15/17 06:00 Problem List - Problems (1) Cellulitis Code(s): L03.90 - CELLULITIS, UNSPECIFIED Qualifiers: Site of cellulitis: extremity Site of cellulitis of extremity: lower extremity Laterality: right Qualified Code(s): L03.115 - Cellulitis of right lower limb (2) Diabetic foot ulcer Code(s): E11.621 - TYPE 2 DIABETES MELLITUS WITH FOOT ULCER; L97.509 - NON- PRESSURE CHRONIC ULCER OTH PRT UNSP FOOT W UNSP SEVERITY (3) Anemia Code(s): D64.9 - ANEMIA, UNSPECIFIED Qualifiers: Anemia type: due to chronic kidney disease (4) Atrial fibrillation Code(s): I48.91 - UNSPECIFIED ATRIAL FIBRILLATION Qualifiers: Atrial fibrillation type: permanent Qualified Code(s): I48.2 - Chronic atrial fibrillation (5) ESRD (end stage renal disease) Code(s): N18.6 - END STAGE RENAL DISEASE Assessment/Plan Current Medications Generic Name Dose Route Start Last Admin Trade Name Freq PRN Reason Stop Dose Admin Acetaminophen 325 mg 10/12/17 12:17 10/15/17 02:42 Tylenol - PO 325 mg Q8H PRN Administration PAIN LEVEL 7 - 10 Clopidogrel Bisulfate 75 mg 10/13/17 10:00 10/15/17 10:56 Plavix - PO 75 mg DAILY [facility] Administration Collagenase 1 applic 10/13/17 10:00 10/15/17 10:59 Santyl - TP 1 applic DAILY [facility] Administration Protocol Diphenhydramine HCl 25 mg 10/12/17 12:17 10/15/17 10:57 Benadryl - PO 25 mg Q8H PRN Administration ITCHING Piperacillin Sod/Tazobactam 100 mls @ 100 mls/hr 10/12/17 19:54 10/15/17 10: 56 Sod 2.25 gm/ Dextrose IVPB 100 mls/hr Q8H-IV [facility] Administration Protocol Insulin Aspart 1 vial 10/12/17 16:30 10/15/17 06:00 Novolog Vial Sliding Scale - SQ Not Given BIDAC [facility] Protocol Levothyroxine Sodium 75 mcg 10/13/17 07:00 10/15/17 06:00 Synthroid - PO 75 mcg DAILY@0700 [facility] Administration Melatonin 5 mg 10/12/17 22:00 10/14/17 21:49 Melatonin PO 5 mg HS PRN Administration INSOMNIA Metoprolol Succinate 12.5 mg 10/13/17 10:00 10/15/17 10:57 Toprol Xl - PO Not Given DAILY [facility] Morphine Sulfate 2 mg 10/13/17 11:32 10/15/17 09:52 Morphine Sulfate IVPUSH 2 mg Q4H PRN Administration PAIN LEVEL 7 - 10 Multivit/Ca Carb/B Cmplx/FA/Prenat 1 tablet 10/13/17 10:00 10/15/17 10:56 Nephro-Fer - PO 1 tablet DAILY [facility] Administration Oxycodone HCl 5 mg 10/12/17 12:17 10/15/17 11:11 Roxicodone - PO 5 mg Q8H PRN Administration PAIN 7-10 Sacubitril/Valsartan 1 tab 10/12/17 22:00 10/15/17 10:58 Entresto 24 Mg-26 Mg Tablet PO 1 tab BID [facility] Administration Senna 2 tab 10/12/17 22:00 10/14/17 21:48 Senna - PO 2 tab HS [facility] Administration Senna/Docusate Sodium 1 tablet 10/13/17 10:00 10/15/17 10:58 Pericolace - PO 1 tablet DAILY [facility] Administration Thiamine HCl 100 mg 10/13/17 10:00 10/15/17 10:57 Vitamin B1 - PO 100 mg DAILY [facility] Administration Warfarin Sodium 5 mg 10/12/17 18:00 10/14/17 18:39 Coumadin - PO 5 mg DAILY@1800 [facility] Administration Impression 1. ESRD 2. hx pericardial effusion 3. hx pneumopericardium 4. hypothyroidism 5. a-fib 6. hypotension 7. hx of colon cancer 8. CHF 9. DM 10. hx of PE 11. CAD 12. foot ulcer Plan - HD tomorrow - will UF more volume - discussed fluid intake and restriction - HD 4 times per week to help with pericardial effusion - cont wound care - epogen for anemia - monitor bp - will follow Dr Conklin
[2017-10-15] MEDS ORDERED: POTASSIUM CHLORIDE TABS 20 MEQ TABLET.ER (FP) PO ONE (14:54)
--- NOTE | 2017-10-15 15:38 | PN ---
Progress Note, Physician History of Present Illness: Pt is alert, states he feels well. Reports less pain in Rt foot. Afebrile without specific complaints. - Current Medication List Current Medications: Active Medications Acetaminophen (Tylenol -) 325 mg PO Q8H PRN PRN Reason: PAIN LEVEL 7 - 10 Last Admin: 10/15/17 02:42 Dose: 325 mg Albumin Human (Albumin Human 25%) 12.5 gm IVPB Q30M [facility] Clopidogrel Bisulfate (Plavix -) 75 mg PO DAILY [facility] Last Admin: 10/15/17 10:56 Dose: 75 mg Collagenase (Santyl -) 1 applic TP DAILY [facility]; Protocol Last Admin: 10/15/17 10:59 Dose: 1 applic Diphenhydramine HCl (Benadryl -) 25 mg PO Q8H PRN PRN Reason: ITCHING Last Admin: 10/15/17 10:57 Dose: 25 mg Epoetin Hector (Epogen -) 5,000 unit IVPUSH ONCE ONE Stop: 10/16/17 14:48 Piperacillin Sod/Tazobactam (Sod 2.25 gm/ Dextrose) 100 mls @ 100 mls/hr IVPB Q8H-IV [facility]; Protocol Last Admin: 10/15/17 10:56 Dose: 100 mls/hr Sodium Chloride (Normal Saline -) 250 mls @ 3,000 mls/hr IV PRN PRN PRN Reason: Hypotension during Dialysis Stop: 10/16/17 14:48 Insulin Aspart (Novolog Vial Sliding Scale -) 1 vial SQ BIDAC [facility]; Protocol Last Admin: 10/15/17 06:00 Dose: Not Given Levothyroxine Sodium (Synthroid -) 75 mcg PO DAILY@0700 [facility] Last Admin: 10/15/17 06:00 Dose: 75 mcg Melatonin (Melatonin) 5 mg PO HS PRN PRN Reason: INSOMNIA Last Admin: 10/14/17 21:49 Dose: 5 mg Metoprolol Succinate (Toprol Xl -) 12.5 mg PO DAILY [facility] Last Admin: 10/15/17 10:57 Dose: Not Given Morphine Sulfate (Morphine Sulfate) 2 mg IVPUSH Q4H PRN PRN Reason: PAIN LEVEL 7 - 10 Last Admin: 10/15/17 09:52 Dose: 2 mg Multivit/Ca Carb/B Cmplx/FA/Prenat (Nephro-Fer -) 1 tablet PO DAILY [facility] Last Admin: 10/15/17 10:56 Dose: 1 tablet Oxycodone HCl (Roxicodone -) 5 mg PO Q8H PRN PRN Reason: PAIN 7-10 Last Admin: 10/15/17 11:11 Dose: 5 mg Potassium Chloride (K-Dur -) 40 meq PO ONCE ONE Stop: 10/15/17 14:55 Sacubitril/Valsartan (Entresto 24 Mg-26 Mg Tablet) 1 tab PO BID [facility] Last Admin: 10/15/17 10:58 Dose: 1 tab Senna (Senna -) 2 tab PO HS [facility] Last Admin: 10/14/17 21:48 Dose: 2 tab Senna/Docusate Sodium (Pericolace -) 1 tablet PO DAILY [facility] Last Admin: 10/15/17 10:58 Dose: 1 tablet Thiamine HCl (Vitamin B1 -) 100 mg PO DAILY [facility] Last Admin: 10/15/17 10:57 Dose: 100 mg Warfarin Sodium (Coumadin -) 5 mg PO DAILY@1800 [facility] Last Admin: 10/14/17 18:39 Dose: 5 mg - Objective Vital Signs: Vital Signs Temperature 97.5 F L 10/15/17 14:54 Pulse Rate 66 10/15/17 14:54 Respiratory Rate 18 10/15/17 14:54 Blood Pressure 104/63 10/15/17 14:54 O2 Sat by Pulse Oximetry (%) 99 10/15/17 09:00 Constitutional: Yes: No Distress, Calm Cardiovascular: Yes: Regular Rate and Rhythm Respiratory: Yes: Regular Gastrointestinal: Yes: Normal Bowel Sounds, Soft Extremities: Yes: Amputation Wound/Incision: Yes: Sutures Intact (Rt foot wound with sutures +drainage, mild tenderness to tough) Neurological: Yes: Alert, Oriented Labs: CBC, BMP 10/15/17 06:00 10/15/17 06:00 INR, PTT INR 1.96 (0.83-1.09) H 10/15/17 06:00 Problem List - Problems (1) Cellulitis Code(s): L03.90 - CELLULITIS, UNSPECIFIED Qualifiers: Site of cellulitis: extremity Site of cellulitis of extremity: lower extremity Laterality: right Qualified Code(s): L03.115 - Cellulitis of right lower limb (2) Diabetic foot ulcer Code(s): E11.621 - TYPE 2 DIABETES MELLITUS WITH FOOT ULCER; L97.509 - NON- PRESSURE CHRONIC ULCER OTH PRT UNSP FOOT W UNSP SEVERITY (3) Amputated toe of right foot Code(s): Z89.421 - ACQUIRED ABSENCE OF OTHER RIGHT TOE(S) (4) Anemia Code(s): D64.9 - ANEMIA, UNSPECIFIED Qualifiers: Anemia type: due to chronic kidney disease (5) Atrial fibrillation Code(s): I48.91 - UNSPECIFIED ATRIAL FIBRILLATION Qualifiers: Atrial fibrillation type: permanent Qualified Code(s): I48.2 - Chronic atrial fibrillation (6) Cardiomyopathy Code(s): I42.9 - CARDIOMYOPATHY, UNSPECIFIED Qualifiers: Cardiomyopathy type: unspecified Qualified Code(s): I42.9 - Cardiomyopathy , unspecified (7) Cellulitis of right lower extremity Code(s): L03.115 - CELLULITIS OF RIGHT LOWER LIMB (8) 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 Code(s): E11.9 - TYPE 2 DIABETES MELLITUS WITHOUT COMPLICATIONS Qualifiers: 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 type: type 2 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: without buttermilk drier operator use 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 complication status: without complication Qualified Code(s): E11.9 - Type 2 diabetes mellitus without complications (9) ESRD (end stage renal disease) Code(s): N18.6 - END STAGE RENAL DISEASE (10) HTN (hypertension) Code(s): I10 - ESSENTIAL (PRIMARY) HYPERTENSION Qualifiers: Hypertension type: essential hypertension Qualified Code(s): I10 - Essential (primary) hypertension (11) Open wound of foot Code(s): S91.309A - UNSPECIFIED OPEN WOUND, UNSPECIFIED FOOT, INITIAL ENCOUNTER Qualifiers: Encounter type: subsequent encounter Laterality: right Qualified Code(s) : S91.301D - Unspecified open wound, right foot, subsequent encounter (12) Osteomyelitis Code(s): M86.9 - OSTEOMYELITIS, UNSPECIFIED Qualifiers: Osteomyelitis type: other Osteomyelitis location: foot Laterality: right Qualified Code(s): M86.8X7 - Other osteomyelitis, ankle and foot (13) Status post peripheral artery angioplasty Code(s): Z98.62 - PERIPHERAL VASCULAR ANGIOPLASTY STATUS Assessment/Plan 72 y.o. male with PMH of ESRD on HD, DM with peripheral neuropathy, CHF, COPD, PE, PAD s/p Rt tib revascularization, s/p RT foot gangrene with amputation of Rt 2/3/4/ toe presenting with Rt foot cellulitis/infected amputation site Rt foot Cellulitis/ wound Infection s/p revision of amp site with bone debridement POD#2 DM with neuropathy PAD s/p revascularization Rt tibial ESRD on HD -- continue current antibiotics -- f/u bone biopsy results -- repeat wound culture -- wound vac to be placed pt afebrile, vitals stable at this time
[2017-10-15] MEDS: WARFARIN NA 5 MG TABLET (UD) PO SCH (18:28)
[2017-10-15] MEDS: SENNOSIDES 8.6MG TABLET (FP) PO SCH (21:01)
[2017-10-15] MEDS: MELATONIN 5 MG TABLETS PO PRN (21:01)
[2017-10-16] MEDS ORDERED: DEXTROSE 5%-WATER 100 ML IVPB ONE ×3 (01:17→17:16)
[2017-10-16] MEDS ORDERED: PIPERACILLIN/TAZOBACTAM 2.25 GM VIAL IVPB ONE ×3 (01:17→17:16)
[2017-10-16] MEDS: PIPERACILLIN/TAZOB 2.25 GM 2.25 GM in DEXTROSE 5%-WATER 100 ML IVPB SCH ×4 (02:32→17:25)
[2017-10-16] MEDS: ACETAMINOPHEN 325 MG TABLET (FP) PO PRN ×3 (02:36→21:35)
[2017-10-16] MEDS: oxyCODONE HCL 5 MG TABLET PO PRN ×3 (02:36→21:33)
[2017-10-16] MEDS: MORPHINE SULFATE 2 MG/ML VIAL IVPUSH PRN ×3 (05:28→16:51)
[2017-10-16] MEDS: LEVOTHYROXINE NA 75 MCG TABLET (FP) PO SCH (06:01)
[2017-10-16] MEDS: INSULIN SLIDING SCALE (NOVOLOG) 1 VIAL SQ SCH ×2 (06:01→16:35)
[2017-10-16 10:25] LABS: HEMATOCRIT 33.4 % (35.4-49); HEMOGLOBIN 10.7 GM/dL (11.7-16.9); MCH 29.1 pg (25.7-33.7); MEAN CELL VOLUME 90.9 fl (80-96); MEAN PLT VOLUME 9.5 fl (7.5-11.1); PLATELET COUNT 176 K/MM3 (134-434); RBC 3.67 M/mm3 (4.00-5.60); RDW 18.5 % (11.9-15.9); WHITE BLOOD COUNT 4.1 K/mm3 (4.0-10.0)
[2017-10-16] MEDS ORDERED: SODIUM CHLORIDE 250 ML IV PRN ×2 (10:27→12:46)
[2017-10-16 10:28] LABS: ANION GAP 12 MMOL/L (8-16); BLOOD UREA NITROGEN 14 mg/dL (7-18); CALCIUM 8.7 mg/dL (8.5-10.1); CHLORIDE 94 mmol/L (98-107); CO2 27 mmol/L (21-32); CREATININE 5.4 mg/dL (0.7-1.3); GLUCOSE,RANDOM 135 mg/dL (74-106); POTASSIUM 3.4 mmol/L (3.5-5.1); SODIUM 133 mmol/L (136-145)
[2017-10-16] MEDS ORDERED: EPOETIN ALFA 3,000 UNIT, EPOETIN ALFA 2,000 UNIT IVPUSH ONE (10:30)
--- NOTE | 2017-10-16 10:52 | PN ---
Progress Note (short form) - Note Progress Note: pod # 4 requesting pain meds to be increased afebrile all f/u noted Vital Signs Temp 97.8 F 10/16/17 09:40 Pulse 68 10/16/17 10:15 Resp 18 10/16/17 10:15 BP 97/57 10/16/17 10:15 Pulse Ox 99 10/15/17 21:00 Intake & Output 10/15/17 10/15/17 10/16/17 11:59 23:59 11:59 Intake Total 50 350 250 Balance 50 350 250 Weight 218 lb 9 oz 225 lb 1 oz Intake: IVPB 50 100 50 Oral 250 200 Other: Voiding Method Urinal Urinal Toilet Bowel Movement Yes No # Bowel Movements 1 Weight Measurement Method Standing Scale Active Medications Acetaminophen (Tylenol -) 325 mg PO Q8H PRN PRN Reason: PAIN LEVEL 7 - 10 Last Admin: 10/16/17 02:36 Dose: 325 mg Albumin Human (Albumin Human 25%) 12.5 gm IVPB Q30M [facility] Stop: 10/16/17 12:01 Clopidogrel Bisulfate (Plavix -) 75 mg PO DAILY [facility] Last Admin: 10/15/17 10:56 Dose: 75 mg Collagenase (Santyl -) 1 applic TP DAILY [facility]; Protocol Last Admin: 10/15/17 10:59 Dose: 1 applic Diphenhydramine HCl (Benadryl -) 25 mg PO Q8H PRN PRN Reason: ITCHING Last Admin: 10/15/17 21:01 Dose: 25 mg Piperacillin Sod/Tazobactam (Sod 2.25 gm/ Dextrose) 100 mls @ 100 mls/hr IVPB Q8H-IV [facility]; Protocol Last Admin: 10/16/17 02:32 Dose: 100 mls/hr Insulin Aspart (Novolog Vial Sliding Scale -) 1 vial SQ BIDAC [facility]; Protocol Last Admin: 10/16/17 06:01 Dose: Not Given Levothyroxine Sodium (Synthroid -) 75 mcg PO DAILY@0700 [facility] Last Admin: 10/16/17 06:01 Dose: 75 mcg Melatonin (Melatonin) 5 mg PO HS PRN PRN Reason: INSOMNIA Last Admin: 10/15/17 21:01 Dose: 5 mg Metoprolol Succinate (Toprol Xl -) 12.5 mg PO DAILY [facility] Last Admin: 10/15/17 10:57 Dose: Not Given Morphine Sulfate (Morphine Sulfate) 2 mg IVPUSH Q4H PRN PRN Reason: PAIN LEVEL 7 - 10 Last Admin: 10/16/17 05:28 Dose: 2 mg Multivit/Ca Carb/B Cmplx/FA/Prenat (Nephro-Fer -) 1 tablet PO DAILY [facility] Last Admin: 10/15/17 10:56 Dose: 1 tablet Oxycodone HCl (Roxicodone -) 5 mg PO Q8H PRN PRN Reason: PAIN 7-10 Last Admin: 10/16/17 02:36 Dose: 5 mg Sacubitril/Valsartan (Entresto 24 Mg-26 Mg Tablet) 1 tab PO BID [facility] Last Admin: 10/15/17 21:02 Dose: 1 tab Senna (Senna -) 2 tab PO HS [facility] Last Admin: 10/15/17 21:01 Dose: 2 tab Senna/Docusate Sodium (Pericolace -) 1 tablet PO DAILY [facility] Last Admin: 10/15/17 10:58 Dose: 1 tablet Thiamine HCl (Vitamin B1 -) 100 mg PO DAILY [facility] Last Admin: 10/15/17 10:57 Dose: 100 mg Warfarin Sodium (Coumadin -) 5 mg PO DAILY@1800 [facility] Last Admin: 10/15/17 18:28 Dose: 5 mg CBC, BMP 10/16/17 09:45 10/16/17 09:45 INR, PTT INR 1.96 (0.83-1.09) H 10/15/17 06:00 Physical Exam. Alert/ awake. neck: Yes: WNL, Supple, Trachea Midline Cardiovascular: Yes: Pulse regular, S1, S2 Respiratory: Yes: WNL, Regular, CTA Bilaterally, On Nasal O2 Gastrointestinal: Yes: Normal Bowel Sounds, Soft Vac placed A/P Right foor cellulitis DM CHF S/P right posterior tibial artery re-vascularization and subsequent foot amputation digit-2-5 afib PE Colon ca- s/p resection peripheral neuropathy ESRD on HD stable pain control-- adjust meds abx Monitor blood sugar dialysis per renal discussed with i/d also today Will follow Problem List - Problems (1) Cellulitis Code(s): L03.90 - CELLULITIS, UNSPECIFIED Qualifiers: Site of cellulitis: extremity Site of cellulitis of extremity: lower extremity Laterality: right Qualified Code(s): L03.115 - Cellulitis of right lower limb (2) Diabetic foot ulcer Code(s): E11.621 - TYPE 2 DIABETES MELLITUS WITH FOOT ULCER; L97.509 - NON- PRESSURE CHRONIC ULCER OTH PRT UNSP FOOT W UNSP SEVERITY (3) Amputated toe of right foot Code(s): Z89.421 - ACQUIRED ABSENCE OF OTHER RIGHT TOE(S) (4) Atrial fibrillation Code(s): I48.91 - UNSPECIFIED ATRIAL FIBRILLATION Qualifiers: Atrial fibrillation type: permanent Qualified Code(s): I48.2 - Chronic atrial fibrillation (5) Cardiomyopathy Code(s): I42.9 - CARDIOMYOPATHY, UNSPECIFIED Qualifiers: Cardiomyopathy type: unspecified Qualified Code(s): I42.9 - Cardiomyopathy , unspecified (6) Chronic anticoagulation Code(s): Z79.01 - RESIDENTIAL (CURRENT) USE OF 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
[2017-10-16] MEDS ORDERED: PT OWN MED DRAWER 7, Y5N ONE ×3 (11:21→22:42)
--- NOTE | 2017-10-16 11:21 | PN ---
Progress Note, Physician History of Present Illness: Pt afebrile. c/o b/l foot pain, morphine ordered. - Current Medication List Current Medications: Active Medications Acetaminophen (Tylenol -) 325 mg PO Q8H PRN PRN Reason: PAIN LEVEL 7 - 10 Last Admin: 10/16/17 02:36 Dose: 325 mg Albumin Human (Albumin Human 25%) 12.5 gm IVPB Q30M [facility] Stop: 10/16/17 12:01 Clopidogrel Bisulfate (Plavix -) 75 mg PO DAILY [facility] Last Admin: 10/15/17 10:56 Dose: 75 mg Collagenase (Santyl -) 1 applic TP DAILY [facility]; Protocol Last Admin: 10/15/17 10:59 Dose: 1 applic Diphenhydramine HCl (Benadryl -) 25 mg PO Q8H PRN PRN Reason: ITCHING Last Admin: 10/15/17 21:01 Dose: 25 mg Piperacillin Sod/Tazobactam (Sod 2.25 gm/ Dextrose) 100 mls @ 100 mls/hr IVPB Q8H-IV [facility]; Protocol Last Admin: 10/16/17 02:32 Dose: 100 mls/hr Insulin Aspart (Novolog Vial Sliding Scale -) 1 vial SQ BIDAC [facility]; Protocol Last Admin: 10/16/17 06:01 Dose: Not Given Levothyroxine Sodium (Synthroid -) 75 mcg PO DAILY@0700 [facility] Last Admin: 10/16/17 06:01 Dose: 75 mcg Melatonin (Melatonin) 5 mg PO HS PRN PRN Reason: INSOMNIA Last Admin: 10/15/17 21:01 Dose: 5 mg Metoprolol Succinate (Toprol Xl -) 12.5 mg PO DAILY [facility] Last Admin: 10/15/17 10:57 Dose: Not Given Morphine Sulfate (Morphine Sulfate) 2 mg IVPUSH Q4H PRN PRN Reason: PAIN LEVEL 7 - 10 Last Admin: 10/16/17 10:57 Dose: 2 mg Multivit/Ca Carb/B Cmplx/FA/Prenat (Nephro-Fer -) 1 tablet PO DAILY [facility] Last Admin: 10/15/17 10:56 Dose: 1 tablet Oxycodone HCl (Roxicodone -) 10 mg PO Q6H PRN PRN Reason: PAIN LEVEL 6-10 Sacubitril/Valsartan (Entresto 24 Mg-26 Mg Tablet) 1 tab PO BID [facility] Last Admin: 10/15/17 21:02 Dose: 1 tab Senna (Senna -) 2 tab PO HS [facility] Last Admin: 10/15/17 21:01 Dose: 2 tab Senna/Docusate Sodium (Pericolace -) 1 tablet PO DAILY [facility] Last Admin: 10/15/17 10:58 Dose: 1 tablet Thiamine HCl (Vitamin B1 -) 100 mg PO DAILY [facility] Last Admin: 10/15/17 10:57 Dose: 100 mg Warfarin Sodium (Coumadin -) 5 mg PO DAILY@1800 [facility] Last Admin: 10/15/17 18:28 Dose: 5 mg - Objective Vital Signs: Vital Signs Temperature 97.8 F 10/16/17 09:40 Pulse Rate 66 10/16/17 10:45 Respiratory Rate 18 10/16/17 10:45 Blood Pressure 98/46 10/16/17 10:45 O2 Sat by Pulse Oximetry (%) 99 10/15/17 21:00 Cardiovascular: Yes: Regular Rate and Rhythm Respiratory: Yes: Regular Gastrointestinal: Yes: Normal Bowel Sounds, Soft Edema: Yes (Rt foot) Wound/Incision: Yes: Sutures Intact (mild serosanguinous drainage) Neurological: Yes: Alert Labs: CBC, BMP 10/16/17 09:45 10/16/17 09:45 INR, PTT INR 1.96 (0.83-1.09) H 10/15/17 06:00 Problem List - Problems (1) Cellulitis Code(s): L03.90 - CELLULITIS, UNSPECIFIED Qualifiers: Site of cellulitis: extremity Site of cellulitis of extremity: lower extremity Laterality: right Qualified Code(s): L03.115 - Cellulitis of right lower limb (2) Diabetic foot ulcer Code(s): E11.621 - TYPE 2 DIABETES MELLITUS WITH FOOT ULCER; L97.509 - NON- PRESSURE CHRONIC ULCER OTH PRT UNSP FOOT W UNSP SEVERITY (3) Amputated toe of right foot Code(s): Z89.421 - ACQUIRED ABSENCE OF OTHER RIGHT TOE(S) (4) Anemia Code(s): D64.9 - ANEMIA, UNSPECIFIED Qualifiers: Anemia type: due to chronic kidney disease (5) Atrial fibrillation Code(s): I48.91 - UNSPECIFIED ATRIAL FIBRILLATION Qualifiers: Atrial fibrillation type: permanent Qualified Code(s): I48.2 - Chronic atrial fibrillation (6) Cardiomyopathy Code(s): I42.9 - CARDIOMYOPATHY, UNSPECIFIED Qualifiers: Cardiomyopathy type: unspecified Qualified Code(s): I42.9 - Cardiomyopathy , unspecified (7) Cellulitis of right lower extremity Code(s): L03.115 - CELLULITIS OF RIGHT LOWER LIMB (8) 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 Code(s): E11.9 - TYPE 2 DIABETES MELLITUS WITHOUT COMPLICATIONS Qualifiers: 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 type: type 2 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 snf insulin use: without exterminator helper use 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 complication status: without complication Qualified Code(s): E11.9 - Type 2 diabetes mellitus without complications (9) ESRD (end stage renal disease) Code(s): N18.6 - END STAGE RENAL DISEASE (10) HTN (hypertension) Code(s): I10 - ESSENTIAL (PRIMARY) HYPERTENSION Qualifiers: Hypertension type: essential hypertension Qualified Code(s): I10 - Essential (primary) hypertension (11) Open wound of foot Code(s): S91.309A - UNSPECIFIED OPEN WOUND, UNSPECIFIED FOOT, INITIAL ENCOUNTER Qualifiers: Encounter type: subsequent encounter Laterality: right Qualified Code(s) : S91.301D - Unspecified open wound, right foot, subsequent encounter (12) Osteomyelitis Code(s): M86.9 - OSTEOMYELITIS, UNSPECIFIED Qualifiers: Osteomyelitis type: other Osteomyelitis location: foot Laterality: right Qualified Code(s): M86.8X7 - Other osteomyelitis, ankle and foot (13) Status post peripheral artery angioplasty Code(s): Z98.62 - PERIPHERAL VASCULAR ANGIOPLASTY STATUS Assessment/Plan 72 y.o. male with PMH of ESRD on HD, DM with peripheral neuropathy, CHF, COPD, PE, PAD s/p Rt tib revascularization, s/p RT foot gangrene with amputation of Rt 2/3/4/5th toe presenting with Rt foot cellulitis/infected amputation site Rt foot Cellulitis/ wound Infection s/p revision of amp site with bone debridement POD#3 DM with neuropathy PAD s/p revascularization Rt tibial ESRD on HD -- continue current antibiotics -- wound vac to be placed, will consider d/c antibiotics
[2017-10-16] MEDS: ALBUMIN HUMAN 25% 12.5 GM/50 ML VIAL IVPB SCH ×3 (12:25→12:56)
[2017-10-16] MEDS ORDERED: POTASSIUM CHLORIDE TABS 20 MEQ TABLET.ER (FP) PO ONE (12:43)
--- NOTE | 2017-10-16 12:46 | PN ---
Progress Note, Physician History of Present Illness: Pt seen and examined at bedside. He is awake and alert. He is currently getting HD. - Current Medication List Current Medications: Active Medications Acetaminophen (Tylenol -) 325 mg PO Q8H PRN PRN Reason: PAIN LEVEL 7 - 10 Last Admin: 10/16/17 02:36 Dose: 325 mg Clopidogrel Bisulfate (Plavix -) 75 mg PO DAILY [facility] Last Admin: 10/15/17 10:56 Dose: 75 mg Collagenase (Santyl -) 1 applic TP DAILY [facility]; Protocol Last Admin: 10/15/17 10:59 Dose: 1 applic Diphenhydramine HCl (Benadryl -) 25 mg PO Q8H PRN PRN Reason: ITCHING Last Admin: 10/15/17 21:01 Dose: 25 mg Piperacillin Sod/Tazobactam (Sod 2.25 gm/ Dextrose) 100 mls @ 100 mls/hr IVPB Q8H-IV [facility]; Protocol Last Admin: 10/16/17 02:32 Dose: 100 mls/hr Insulin Aspart (Novolog Vial Sliding Scale -) 1 vial SQ BIDAC [facility]; Protocol Last Admin: 10/16/17 06:01 Dose: Not Given Levothyroxine Sodium (Synthroid -) 75 mcg PO DAILY@0700 [facility] Last Admin: 10/16/17 06:01 Dose: 75 mcg Melatonin (Melatonin) 5 mg PO HS PRN PRN Reason: INSOMNIA Last Admin: 10/15/17 21:01 Dose: 5 mg Metoprolol Succinate (Toprol Xl -) 12.5 mg PO DAILY [facility] Last Admin: 10/15/17 10:57 Dose: Not Given Morphine Sulfate (Morphine Sulfate) 2 mg IVPUSH Q4H PRN PRN Reason: PAIN LEVEL 7 - 10 Last Admin: 10/16/17 10:57 Dose: 2 mg Multivit/Ca Carb/B Cmplx/FA/Prenat (Nephro-Fer -) 1 tablet PO DAILY [facility] Last Admin: 10/15/17 10:56 Dose: 1 tablet Oxycodone HCl (Roxicodone -) 10 mg PO Q6H PRN PRN Reason: PAIN LEVEL 6-10 Sacubitril/Valsartan (Entresto 24 Mg-26 Mg Tablet) 1 tab PO BID [facility] Last Admin: 10/15/17 21:02 Dose: 1 tab Senna (Senna -) 2 tab PO HS [facility] Last Admin: 10/15/17 21:01 Dose: 2 tab Senna/Docusate Sodium (Pericolace -) 1 tablet PO DAILY [facility] Last Admin: 10/15/17 10:58 Dose: 1 tablet Thiamine HCl (Vitamin B1 -) 100 mg PO DAILY [facility] Last Admin: 10/15/17 10:57 Dose: 100 mg Warfarin Sodium (Coumadin -) 5 mg PO DAILY@1800 [facility] Last Admin: 10/15/17 18:28 Dose: 5 mg - Objective Vital Signs: Vital Signs Temperature 97.8 F 10/16/17 09:40 Pulse Rate 69 10/16/17 12:15 Respiratory Rate 18 10/16/17 12:15 Blood Pressure 98/61 10/16/17 12:15 O2 Sat by Pulse Oximetry (%) 95 10/16/17 09:00 Constitutional: Yes: Calm Eyes: Yes: Conjunctiva Clear HENT: Yes: Atraumatic Neck: Yes: Supple Cardiovascular: Yes: S1, S2 Respiratory: Yes: CTA Bilaterally Gastrointestinal: Yes: Normal Bowel Sounds, Soft, Other (abd wall edema) Genitourinary: Yes: WNL Musculoskeletal: Yes: Other (dressing on leg wound) Edema: Yes Edema: LLE: 2+, RLE: 2+ Neurological: Yes: Oriented Psychiatric: Yes: Oriented Labs: CBC, BMP 10/16/17 09:45 10/16/17 09:45 INR, PTT INR 1.96 (0.83-1.09) H 10/15/17 06:00 Problem List - Problems (1) Cellulitis Code(s): L03.90 - CELLULITIS, UNSPECIFIED Qualifiers: Site of cellulitis: extremity Site of cellulitis of extremity: lower extremity Laterality: right Qualified Code(s): L03.115 - Cellulitis of right lower limb (2) Diabetic foot ulcer Code(s): E11.621 - TYPE 2 DIABETES MELLITUS WITH FOOT ULCER; L97.509 - NON- PRESSURE CHRONIC ULCER OTH PRT UNSP FOOT W UNSP SEVERITY (3) Anemia Code(s): D64.9 - ANEMIA, UNSPECIFIED Qualifiers: Anemia type: due to chronic kidney disease (4) Atrial fibrillation Code(s): I48.91 - UNSPECIFIED ATRIAL FIBRILLATION Qualifiers: Atrial fibrillation type: permanent Qualified Code(s): I48.2 - Chronic atrial fibrillation (5) ESRD (end stage renal disease) Code(s): N18.6 - END STAGE RENAL DISEASE Assessment/Plan Current Medications Generic Name Dose Route Start Last Admin Trade Name Freq PRN Reason Stop Dose Admin Acetaminophen 325 mg 10/12/17 12:17 10/16/17 02:36 Tylenol - PO 325 mg Q8H PRN Administration PAIN LEVEL 7 - 10 Clopidogrel Bisulfate 75 mg 10/13/17 10:00 10/15/17 10:56 Plavix - PO 75 mg DAILY [facility] Administration Collagenase 1 applic 10/13/17 10:00 10/15/17 10:59 Santyl - TP 1 applic DAILY [facility] Administration Protocol Diphenhydramine HCl 25 mg 10/12/17 12:17 10/15/17 21:01 Benadryl - PO 25 mg Q8H PRN Administration ITCHING Piperacillin Sod/Tazobactam 100 mls @ 100 mls/hr 10/12/17 19:54 10/16/17 02: 32 Sod 2.25 gm/ Dextrose IVPB 100 mls/hr Q8H-IV [facility] Administration Protocol Insulin Aspart 1 vial 10/12/17 16:30 10/16/17 06:01 Novolog Vial Sliding Scale - SQ Not Given BIDAC [facility] Protocol Levothyroxine Sodium 75 mcg 10/13/17 07:00 10/16/17 06:01 Synthroid - PO 75 mcg DAILY@0700 [facility] Administration Melatonin 5 mg 10/12/17 22:00 10/15/17 21:01 Melatonin PO 5 mg HS PRN Administration INSOMNIA Metoprolol Succinate 12.5 mg 10/13/17 10:00 10/15/17 10:57 Toprol Xl - PO Not Given DAILY [facility] Morphine Sulfate 2 mg 10/13/17 11:32 10/16/17 10:57 Morphine Sulfate IVPUSH 2 mg Q4H PRN Administration PAIN LEVEL 7 - 10 Multivit/Ca Carb/B Cmplx/FA/Prenat 1 tablet 10/13/17 10:00 10/15/17 10:56 Nephro-Fer - PO 1 tablet DAILY [facility] Administration Oxycodone HCl 10 mg 10/16/17 10:52 Roxicodone - PO Q6H PRN PAIN LEVEL 6-10 Potassium Chloride 40 meq 10/16/17 12:43 K-Dur - PO 10/16/17 12:44 ONCE ONE Sacubitril/Valsartan 1 tab 10/12/17 22:00 10/15/17 21:02 Entresto 24 Mg-26 Mg Tablet PO 1 tab BID [facility] Administration Senna 2 tab 10/12/17 22:00 10/15/17 21:01 Senna - PO 2 tab HS [facility] Administration Senna/Docusate Sodium 1 tablet 10/13/17 10:00 10/15/17 10:58 Pericolace - PO 1 tablet DAILY [facility] Administration Thiamine HCl 100 mg 10/13/17 10:00 10/15/17 10:57 Vitamin B1 - PO 100 mg DAILY [facility] Administration Warfarin Sodium 5 mg 10/12/17 18:00 10/15/17 18:28 Coumadin - PO 5 mg DAILY@1800 [facility] Administration Impression 1. ESRD 2. hx pericardial effusion 3. hx pneumopericardium 4. hypothyroidism 5. a-fib 6. hypotension 7. hx of colon cancer 8. CHF 9. DM 10. hx of PE 11. CAD 12. foot ulcer Plan - HD again tomorrow for UF - discussed compliance with fluid in take - HD M T W and S this week - cont wound care - epogen for anemia - monitor bp - will follow Dr Conklin
[2017-10-16] MEDS: THIAMINE HCL 100 MG TABLET (FP) PO SCH (14:14)
[2017-10-16] MEDS: SACUBITRIL/VALSARTAN 24 MG-26 MG TABLET PO SCH ×2 (14:14→21:31)
[2017-10-16] MEDS: CLOPIDOGREL BISULFATE 75 MG TABLET (FP) PO SCH (14:14)
[2017-10-16] MEDS: SENNOSIDES/DOCUSATE COMBO (SENNA PLUS) TABLET (UD) PO SCH (14:14)
[2017-10-16] MEDS: VITAMIN B COMP W-C 1 EA TABLET PO SCH (14:14)
[2017-10-16] MEDS: COLLAGENASE CLOSTRIDIUM HIST. 30 GRAMS TUBE TP SCH (14:15)
[2017-10-16] MEDS: metoPROLOL SUCCINATE 25 MG TAB.SR.24H (FP) PO SCH (14:15)
[2017-10-16] MEDS ORDERED: EPOETIN ALFA 2,000 UNIT/1 ML VIAL IVPUSH ONE (14:47)
--- NOTE | 2017-10-16 16:08 | PN ---
Progress Note (short form) - Note Progress Note: FUV right foot today POD#4. Seen in bed. VSS. Tmax 98.0 +vac right foot, wbc=4.1, +coapted suture line, -necrosis of incision line, + grade 2-3 ulceration dorsally in midfoot area, +serosanguinous drainage in vac normal post op grade2-3 wound dorsal midfoot No pain Continue Vac. Left heel santyl dressing changes. Patient is under strict bed rest orders. Can go to bathroom but must go back to bed. Discussed with his nurse the application of vac and specific location. May be dc to rehab from podiatry standpoint.
--- NOTE | 2017-10-16 16:18 | PN ---
Progress Note, Physician History of Present Illness: He denies chest pain, SOB or palpitations. He denies paroxysmal nocturnal dyspnea or orthopnea. He denies fever or chills. POD#4 debridement of bone and soft tissue with revision of partial TMA with improving post-op foot discomfort , wound vac placed today. Heating Systems Installer: Dr. Ghassan Durant - Current Medication List Current Medications: Active Medications Acetaminophen (Tylenol -) 325 mg PO Q8H PRN PRN Reason: PAIN LEVEL 7 - 10 Last Admin: 10/16/17 14:11 Dose: 325 mg Clopidogrel Bisulfate (Plavix -) 75 mg PO DAILY [facility] Last Admin: 10/16/17 14:14 Dose: 75 mg Collagenase (Santyl -) 1 applic TP DAILY [facility]; Protocol Last Admin: 10/16/17 14:15 Dose: 1 applic Diphenhydramine HCl (Benadryl -) 25 mg PO Q8H PRN PRN Reason: ITCHING Last Admin: 10/15/17 21:01 Dose: 25 mg Piperacillin Sod/Tazobactam (Sod 2.25 gm/ Dextrose) 100 mls @ 100 mls/hr IVPB Q8H-IV [facility]; Protocol Last Admin: 10/16/17 14:13 Dose: 100 mls/hr Sodium Chloride (Normal Saline -) 250 mls @ 3,000 mls/hr IV PRN PRN PRN Reason: Hypotension during Dialysis Stop: 10/17/17 12:46 Insulin Aspart (Novolog Vial Sliding Scale -) 1 vial SQ BIDAC [facility]; Protocol Last Admin: 10/16/17 06:01 Dose: Not Given Levothyroxine Sodium (Synthroid -) 75 mcg PO DAILY@0700 [facility] Last Admin: 10/16/17 06:01 Dose: 75 mcg Melatonin (Melatonin) 5 mg PO HS PRN PRN Reason: INSOMNIA Last Admin: 10/15/17 21:01 Dose: 5 mg Metoprolol Succinate (Toprol Xl -) 12.5 mg PO DAILY [facility] Last Admin: 10/16/17 14:15 Dose: Not Given Morphine Sulfate (Morphine Sulfate) 2 mg IVPUSH Q4H PRN PRN Reason: PAIN LEVEL 7 - 10 Last Admin: 10/16/17 10:57 Dose: 2 mg Multivit/Ca Carb/B Cmplx/FA/Prenat (Nephro-Fer -) 1 tablet PO DAILY [facility] Last Admin: 10/16/17 14:14 Dose: 1 tablet Oxycodone HCl (Roxicodone -) 10 mg PO Q6H PRN PRN Reason: PAIN LEVEL 6-10 Last Admin: 10/16/17 14:11 Dose: 10 mg Sacubitril/Valsartan (Entresto 24 Mg-26 Mg Tablet) 1 tab PO BID [facility] Last Admin: 10/16/17 14:14 Dose: 1 tab Senna (Senna -) 2 tab PO HS [facility] Last Admin: 10/15/17 21:01 Dose: 2 tab Senna/Docusate Sodium (Pericolace -) 1 tablet PO DAILY [facility] Last Admin: 10/16/17 14:14 Dose: 1 tablet Thiamine HCl (Vitamin B1 -) 100 mg PO DAILY [facility] Last Admin: 10/16/17 14:14 Dose: 100 mg Warfarin Sodium (Coumadin -) 5 mg PO DAILY@1800 [facility] Last Admin: 10/15/17 18:28 Dose: 5 mg - Objective Vital Signs: Vital Signs Temperature 98.0 F 10/16/17 14:48 Pulse Rate 67 10/16/17 14:48 Respiratory Rate 20 10/16/17 14:48 Blood Pressure 102/66 10/16/17 14:48 O2 Sat by Pulse Oximetry (%) 95 10/16/17 09:00 Constitutional: Yes: No Distress, Calm Neck: Yes: Supple Cardiovascular: Yes: Regular Rate and Rhythm Respiratory: Yes: Regular, Diminished Gastrointestinal: Yes: Normal Bowel Sounds, Soft Extremities: Yes: Amputation (Right foot TMA) Edema: No Wound/Incision: Yes: Dressing Dry and Intact Labs: CBC, BMP 10/16/17 09:45 10/16/17 09:45 INR, PTT INR 1.96 (0.83-1.09) H 10/15/17 06:00 Problem List - Problems (1) Atrial fibrillation Code(s): I48.91 - UNSPECIFIED ATRIAL FIBRILLATION Qualifiers: Atrial fibrillation type: permanent Qualified Code(s): I48.2 - Chronic atrial fibrillation (2) Cardiomyopathy Code(s): I42.9 - CARDIOMYOPATHY, UNSPECIFIED Qualifiers: Cardiomyopathy type: unspecified Qualified Code(s): I42.9 - Cardiomyopathy , unspecified (3) Chronic anticoagulation Code(s): Z79.01 - RN BARIATRIC (CURRENT) USE OF 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 (4) 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 Code(s): E11.9 - TYPE 2 DIABETES MELLITUS WITHOUT COMPLICATIONS Qualifiers: 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 type: type 2 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 rat exterminator insulin use: without rat exterminator use 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 complication status: without complication Qualified Code(s): E11.9 - Type 2 diabetes mellitus without complications (5) ESRD (end stage renal disease) Code(s): N18.6 - END STAGE RENAL DISEASE (6) HTN (hypertension) Code(s): I10 - ESSENTIAL (PRIMARY) HYPERTENSION Qualifiers: Hypertension type: essential hypertension Qualified Code(s): I10 - Essential (primary) hypertension (7) Hypothyroid Code(s): E03.9 - HYPOTHYROIDISM, UNSPECIFIED Qualifiers: Hypothyroidism type: unspecified Qualified Code(s): E03.9 - Hypothyroidism , unspecified (8) ICD (implantable cardioverter-defibrillator) in place Code(s): Z95.810 - PRESENCE OF AUTOMATIC (IMPLANTABLE) CARDIAC DEFIBRILLATOR (9) Open wound of foot Code(s): S91.309A - UNSPECIFIED OPEN WOUND, UNSPECIFIED FOOT, INITIAL ENCOUNTER Qualifiers: Encounter type: subsequent encounter Laterality: right Qualified Code(s) : S91.301D - Unspecified open wound, right foot, subsequent encounter (10) Osteomyelitis Code(s): M86.9 - OSTEOMYELITIS, UNSPECIFIED Qualifiers: Osteomyelitis type: other Osteomyelitis location: foot Laterality: right Qualified Code(s): M86.8X7 - Other osteomyelitis, ankle and foot (11) Pericardial effusion Code(s): I31.3 - PERICARDIAL EFFUSION (NONINFLAMMATORY) (12) Status post peripheral artery angioplasty Code(s): Z98.62 - PERIPHERAL VASCULAR ANGIOPLASTY STATUS Assessment/Plan 09/12/2017 Echo: Moderate pericardial effusion, no tamponade, mildly dilated LV with severely decreased LV fxn, mild-mod dilated RV with severely decreased RV fxn, mod-severe MUKUL, mild MR, mild-mod TR, mild AR 10/05/2017 Echo: Moderately dilated with severely decreased LV fxn, RV dilated with severely decreased RV fxn, mod LAE, mild MR, mod TR, mild AR, mod pericardial effusion similar to previous 1. Peripheral artery disease and gangrene right forefoot post right tibial revacularization and debridement of bone and soft tissue with transmetatarsal amputation planned for debridement bone and soft tissue with revision of partial TMA and placement of wound vac 2. Ischemic dilated cardiomyopathy with chronic class I-II NYHA classification LV failure, compensated/euvolemic, post prophylactic ICD implant 3. CAD post CT with evidence of demand ischemic injury angina pectoris, clinically stable 4. Persistent atrial fibrillation [id number] score of 3-4 on Coumadin with subtherapeutic INR 5. Pericardial effusion probably uremic pericarditis, moderate in severity/ unchanged 6. 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 7. Hypothyroidism 8. History of PTE 9. ESRD 10. History of colon cancer PLAN: 1. Antibiotics course, wound vac care and analgesia as needed per the primary team 2. HD as per renal service and replete K 3. Continue Plavix 75 qd and Coumadin as per INR with close monitoring of CBC, unless surgical intervention is planned at which point to hold Coumadin 4. Continue Toprol XL 12.5 qd and titrate as hemodynamics permit/tolerate 5. Continue Entresto 24/26 bid and titrate as hemodynamics permit/tolerate Heating Systems Installer: Dr. Ghassan Durant
[2017-10-16 18:14] LABS: INR 2.08 (0.83-1.09); PROTHROMBIN TIME (PATIENT) 23.5 SEC (9.7-13.0)
[2017-10-16] MEDS: WARFARIN NA 5 MG TABLET (UD) PO SCH (18:21)
[2017-10-16] MEDS: SENNOSIDES 8.6MG TABLET (FP) PO SCH (21:31)
[2017-10-16] MEDS: MELATONIN 5 MG TABLETS PO PRN (22:43)
[2017-10-16] MEDS: diphenhydrAMINE HCL 25 MG CAPSULE (FP) PO PRN (22:47)
[2017-10-17] MEDS ORDERED: DEXTROSE 5%-WATER 100 ML IVPB ONE ×2 (00:45→14:36)
[2017-10-17] MEDS ORDERED: PIPERACILLIN/TAZOBACTAM 2.25 GM VIAL IVPB ONE ×3 (00:45→14:40)
[2017-10-17] MEDS: PIPERACILLIN/TAZOB 2.25 GM 2.25 GM in DEXTROSE 5%-WATER 100 ML IVPB SCH ×4 (01:53→17:47)
[2017-10-17] MEDS: MORPHINE SULFATE 2 MG/ML VIAL IVPUSH PRN ×2 (02:13→14:18)
[2017-10-17] MEDS: INSULIN SLIDING SCALE (NOVOLOG) 1 VIAL SQ SCH ×2 (06:18→16:38)
[2017-10-17] MEDS: LEVOTHYROXINE NA 75 MCG TABLET (FP) PO SCH (06:18)
[2017-10-17 10:00] LABS: INR 1.93 (0.83-1.09); PROTHROMBIN TIME (PATIENT) 21.8 SEC (9.7-13.0)
--- NOTE | 2017-10-17 11:47 | PN ---
Progress Note (short form) - Note Progress Note: Progress Note (short form) - Note Progress Note: pod # 4 requesting pain meds to be increased afebrile all f/u noted Vital Signs - 24 hr 10/16/17 10/16/17 10/16/17 12:15 12:45 13:15 Temperature Pulse Rate 69 65 67 Respiratory 18 18 18 Rate Blood Pressure 98/61 100/60 123/64 O2 Sat by Pulse Oximetry (%) 10/16/17 10/16/17 10/16/17 13:45 14:48 17:49 Temperature 98.0 F 97.7 F Pulse Rate 68 67 67 Respiratory 18 20 20 Rate Blood Pressure 94/62 102/66 87/55 O2 Sat by Pulse Oximetry (%) 10/16/17 10/16/17 10/17/17 21:00 22:00 06:00 Temperature 98 F 98 F Pulse Rate 65 65 Respiratory 20 20 20 Rate Blood Pressure 104/68 87/59 O2 Sat by Pulse 100 Oximetry (%) 10/17/17 10/17/17 10/17/17 08:05 08:10 08:40 Temperature 98.1 F Pulse Rate 69 65 68 Respiratory 18 18 18 Rate Blood Pressure 92/53 94/59 94/61 O2 Sat by Pulse Oximetry (%) 10/17/17 10/17/17 09:10 10:15 Temperature Pulse Rate 62 65 Respiratory 18 18 Rate Blood Pressure 121/69 98/67 O2 Sat by Pulse Oximetry (%) Physical Exam. Alert/ awake. neck: Yes: WNL, Supple, Trachea Midline Cardiovascular: Yes: Pulse regular, S1, S2 Respiratory: Yes: WNL, Regular, CTA Bilaterally, On Nasal O2 Gastrointestinal: Yes: Normal Bowel Sounds, Soft Vac placed A/P Right foor cellulitis DM CHF S/P right posterior tibial artery re-vascularization and subsequent foot amputation digit-2-5 afib PE Colon ca- s/p resection peripheral neuropathy ESRD on HD stable pain control-- adjust meds abx Monitor blood sugar dialysis per renal discussed with i/d also today Will follow Problem List - Problems (1) Cellulitis Code(s): L03.90 - CELLULITIS, UNSPECIFIED Qualifiers: Site of cellulitis: extremity Site of cellulitis of extremity: lower extremity Laterality: right Qualified Code(s): L03.115 - Cellulitis of right lower limb (2) Diabetic foot ulcer Code(s): E11.621 - TYPE 2 DIABETES MELLITUS WITH FOOT ULCER; L97.509 - NON- PRESSURE CHRONIC ULCER OTH PRT UNSP FOOT W UNSP SEVERITY (3) Amputated toe of right foot Code(s): Z89.421 - ACQUIRED ABSENCE OF OTHER RIGHT TOE(S) (4) Atrial fibrillation Code(s): I48.91 - UNSPECIFIED ATRIAL FIBRILLATION Qualifiers: Atrial fibrillation type: permanent Qualified Code(s): I48.2 - Chronic atrial fibrillation (5) Cardiomyopathy Code(s): I42.9 - CARDIOMYOPATHY, UNSPECIFIED Qualifiers: Cardiomyopathy type: unspecified Qualified Code(s): I42.9 - Cardiomyopathy , unspecified (6) Chronic anticoagulation Code(s): Z79.01 - ANTIQUE FURNITURE REPAIRER (CURRENT) USE OF 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 Vital Signs - 24 hr 10/16/17 10/16/17 10/16/17 12:15 12:45 13:15 Temperature Pulse Rate 69 65 67 Respiratory 18 18 18 Rate Blood Pressure 98/61 100/60 123/64 O2 Sat by Pulse Oximetry (%) 10/16/17 10/16/17 10/16/17 13:45 14:48 17:49 Temperature 98.0 F 97.7 F Pulse Rate 68 67 67 Respiratory 18 20 20 Rate Blood Pressure 94/62 102/66 87/55 O2 Sat by Pulse Oximetry (%) 10/16/17 10/16/17 10/17/17 21:00 22:00 06:00 Temperature 98 F 98 F Pulse Rate 65 65 Respiratory 20 20 20 Rate Blood Pressure 104/68 87/59 O2 Sat by Pulse 100 Oximetry (%) 10/17/17 10/17/17 10/17/17 08:05 08:10 08:40 Temperature 98.1 F Pulse Rate 69 65 68 Respiratory 18 18 18 Rate Blood Pressure 92/53 94/59 94/61 O2 Sat by Pulse Oximetry (%) 10/17/17 10/17/17 09:10 10:15 Temperature Pulse Rate 62 65 Respiratory 18 18 Rate Blood Pressure 121/69 98/67 O2 Sat by Pulse Oximetry (%)
--- NOTE | 2017-10-17 12:19 | DS ---
Physical Examination Vital Signs: Vital Signs Temperature 98.1 F 10/17/17 08:05 Pulse Rate 65 10/17/17 10:15 Respiratory Rate 18 10/17/17 10:15 Blood Pressure 98/67 10/17/17 10:15 O2 Sat by Pulse Oximetry (%) 100 10/16/17 21:00 Constitutional: Yes: No Distress Cardiovascular: Yes: Regular Rate and Rhythm Respiratory: Yes: Diminished Gastrointestinal: Yes: Normal Bowel Sounds, Soft. No: Tenderness Edema: No Labs: CBC, BMP 10/16/17 09:45 10/16/17 09:45 Discharge Summary Reason For Visit: CELLULITIS OF RIGHT LOWER EXTREMITY Current Active Problems Cellulitis (Acute) Diabetic foot ulcer (Acute) Hospital Course: 72 y.o. male with PMH of ESRD on HD, DM with peripheral neuropathy, CHF, COPD, PE, PAD s/p Rt tib revascularization, s/p RT foot gangrene with amputation of Rt 2/3/4/5th toe presenting with Rt foot cellulitis/infected amputation site Rt foot Cellulitis/ wound Infection s/p revision of amp site with bone debridement POD#4 DM with neuropathy PAD s/p revascularization Rt tibial ESRD on HD As per ID-- -- discontinue antibiotics at this time -- wound vac in place -- f/u with wound care regularly if site shows signs of deterioration suggest repeat bone biopsy with bone culture while off antibiotic pt currently afebrile, without leukocytosis, vitals stable stable for dc to NH Condition: Good - Instructions Disposition: [facility] - Home Medications Comprehensive Discharge Medication List: Ambulatory Orders Clopidogrel Bisulfate [Plavix -] 75 mg PO DAILY 09/11/17 Glucosamine Sulfate Dipot Chlr [Glucosamine] 500 mg PO DAILY 09/11/17 Levothyroxine [Synthroid -] 75 mcg PO DAILY 09/11/17 Linagliptin [Tradjenta] 5 mg PO DAILY 09/11/17 Melatonin 5 mg PO HS PRN 09/11/17 Oxycodone HCl/Acetaminophen [Percocet 5-325 mg Tablet] 1 tab PO Q8H PRN [id number],Iso [Zosyn 2.25 gm Pre-Mix Bag] 2.25 gm IV TID Sacubitril/Valsartan [Entresto 24 mg-26 mg Tablet] 1 each PO BID 09/11/17 Sennosides [Senna -] 2 tab PO HS 09/11/17 Sennosides/Docusate Sodium [Senexon-S Tablet] 1 each PO DAILY 09/11/17 Thiamine HCl [B-1] 100 mg PO DAILY 09/11/17 Vitamin B Comp W-C [Nephro-Fer -] 1 tablet PO DAILY 09/11/17 Acetaminophen [Tylenol .Regular Strength -] 325 mg PO Q8H PRN tablet 09/18/17 Metoprolol Succinate [Toprol XL -] 12.5 mg PO DAILY tab.sr.24h 09/18/17 Sitagliptin Phosphate [Januvia -] 25 mg PO 0700 tab 09/18/17 Warfarin Na [Coumadin -] 6 mg PO DAILY@1800 tablet 09/18/17 Insulin Aspart [Novolog] 100 unit SQ BID 10/04/17
--- NOTE | 2017-10-17 13:09 | PN ---
Progress Note, Physician History of Present Illness: Pt states he currently feels well. No current pain. Remains afebrile. Wound vac in place. Seen during HD. - Current Medication List Current Medications: Active Medications Acetaminophen (Tylenol -) 325 mg PO Q8H PRN PRN Reason: PAIN LEVEL 7 - 10 Last Admin: 10/16/17 21:35 Dose: 325 mg Clopidogrel Bisulfate (Plavix -) 75 mg PO DAILY [facility] Last Admin: 10/16/17 14:14 Dose: 75 mg Collagenase (Santyl -) 1 applic TP DAILY [facility]; Protocol Last Admin: 10/16/17 14:15 Dose: 1 applic Diphenhydramine HCl (Benadryl -) 25 mg PO Q8H PRN PRN Reason: ITCHING Last Admin: 10/16/17 22:47 Dose: 25 mg Piperacillin Sod/Tazobactam (Sod 2.25 gm/ Dextrose) 100 mls @ 100 mls/hr IVPB Q8H-IV [facility]; Protocol Last Admin: 10/17/17 01:53 Dose: 100 mls/hr Sodium Chloride (Normal Saline -) 250 mls @ 3,000 mls/hr IV PRN PRN PRN Reason: Hypotension during Dialysis Stop: 10/17/17 12:46 Insulin Aspart (Novolog Vial Sliding Scale -) 1 vial SQ BIDAC [facility]; Protocol Last Admin: 10/17/17 06:18 Dose: Not Given Levothyroxine Sodium (Synthroid -) 75 mcg PO DAILY@0700 [facility] Last Admin: 10/17/17 06:18 Dose: 75 mcg Melatonin (Melatonin) 5 mg PO HS PRN PRN Reason: INSOMNIA Last Admin: 10/16/17 22:43 Dose: 5 mg Metoprolol Succinate (Toprol Xl -) 12.5 mg PO DAILY [facility] Last Admin: 10/16/17 14:15 Dose: Not Given Morphine Sulfate (Morphine Sulfate) 2 mg IVPUSH Q4H PRN PRN Reason: PAIN LEVEL 7 - 10 Last Admin: 10/17/17 02:13 Dose: 2 mg Multivit/Ca Carb/B Cmplx/FA/Prenat (Nephro-Fer -) 1 tablet PO DAILY [facility] Last Admin: 10/16/17 14:14 Dose: 1 tablet Oxycodone HCl (Roxicodone -) 10 mg PO Q6H PRN PRN Reason: PAIN LEVEL 6-10 Last Admin: 10/16/17 21:33 Dose: 10 mg Sacubitril/Valsartan (Entresto 24 Mg-26 Mg Tablet) 1 tab PO BID [facility] Last Admin: 10/16/17 21:31 Dose: 1 tab Senna (Senna -) 2 tab PO HS [facility] Last Admin: 10/16/17 21:31 Dose: 2 tab Senna/Docusate Sodium (Pericolace -) 1 tablet PO DAILY [facility] Last Admin: 10/16/17 14:14 Dose: 1 tablet Thiamine HCl (Vitamin B1 -) 100 mg PO DAILY [facility] Last Admin: 10/16/17 14:14 Dose: 100 mg Warfarin Sodium (Coumadin -) 5 mg PO DAILY@1800 [facility] Last Admin: 10/16/17 18:21 Dose: 5 mg - Objective Vital Signs: Vital Signs Temperature 98.1 F 10/17/17 08:05 Pulse Rate 65 10/17/17 10:15 Respiratory Rate 18 10/17/17 10:15 Blood Pressure 98/67 10/17/17 10:15 O2 Sat by Pulse Oximetry (%) 100 10/16/17 21:00 Constitutional: Yes: No Distress, Calm Cardiovascular: Yes: Regular Rate and Rhythm Respiratory: Yes: Regular Gastrointestinal: Yes: Normal Bowel Sounds, Soft Extremities: Yes: Amputation Wound/Incision: Yes: Other (Rt foot wound vac in place, minimal serosanguinous drainage, no tenderness) Neurological: Yes: Alert, Oriented Labs: CBC, BMP 10/16/17 09:45 10/16/17 09:45 INR, PTT INR 1.93 (0.83-1.09) H 10/17/17 06:00 Problem List - Problems (1) Cellulitis Code(s): L03.90 - CELLULITIS, UNSPECIFIED Qualifiers: Site of cellulitis: extremity Site of cellulitis of extremity: lower extremity Laterality: right Qualified Code(s): L03.115 - Cellulitis of right lower limb (2) Diabetic foot ulcer Code(s): E11.621 - TYPE 2 DIABETES MELLITUS WITH FOOT ULCER; L97.509 - NON- PRESSURE CHRONIC ULCER OTH PRT UNSP FOOT W UNSP SEVERITY (3) Amputated toe of right foot Code(s): Z89.421 - ACQUIRED ABSENCE OF OTHER RIGHT TOE(S) (4) Anemia Code(s): D64.9 - ANEMIA, UNSPECIFIED Qualifiers: Anemia type: due to chronic kidney disease (5) Atrial fibrillation Code(s): I48.91 - UNSPECIFIED ATRIAL FIBRILLATION Qualifiers: Atrial fibrillation type: permanent Qualified Code(s): I48.2 - Chronic atrial fibrillation (6) Cardiomyopathy Code(s): I42.9 - CARDIOMYOPATHY, UNSPECIFIED Qualifiers: Cardiomyopathy type: unspecified Qualified Code(s): I42.9 - Cardiomyopathy , unspecified (7) Cellulitis of right lower extremity Code(s): L03.115 - CELLULITIS OF RIGHT LOWER LIMB (8) 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 Code(s): E11.9 - TYPE 2 DIABETES MELLITUS WITHOUT COMPLICATIONS Qualifiers: 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 type: type 2 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 termite control technician insulin use: without termite control technician use 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 complication status: without complication Qualified Code(s): E11.9 - Type 2 diabetes mellitus without complications (9) ESRD (end stage renal disease) Code(s): N18.6 - END STAGE RENAL DISEASE (10) HTN (hypertension) Code(s): I10 - ESSENTIAL (PRIMARY) HYPERTENSION Qualifiers: Hypertension type: essential hypertension Qualified Code(s): I10 - Essential (primary) hypertension (11) Open wound of foot Code(s): S91.309A - UNSPECIFIED OPEN WOUND, UNSPECIFIED FOOT, INITIAL ENCOUNTER Qualifiers: Encounter type: subsequent encounter Laterality: right Qualified Code(s) : S91.301D - Unspecified open wound, right foot, subsequent encounter (12) Osteomyelitis Code(s): M86.9 - OSTEOMYELITIS, UNSPECIFIED Qualifiers: Osteomyelitis type: other Osteomyelitis location: foot Laterality: right Qualified Code(s): M86.8X7 - Other osteomyelitis, ankle and foot (13) Status post peripheral artery angioplasty Code(s): Z98.62 - PERIPHERAL VASCULAR ANGIOPLASTY STATUS Assessment/Plan 72 y.o. male with PMH of ESRD on HD, DM with peripheral neuropathy, CHF, COPD, PE, PAD s/p Rt tib revascularization, s/p RT foot gangrene with amputation of Rt 2/3/4/5th toe presenting with Rt foot cellulitis/infected amputation site Rt foot Cellulitis/ wound Infection s/p revision of amp site with bone debridement POD#4 DM with neuropathy PAD s/p revascularization Rt tibial ESRD on HD -- discontinue antibiotics at this time -- wound vac in place -- f/u with wound care regularly if site shows signs of deterioration suggest repeat bone biopsy with bone culture while off antibiotic pt currently afebrile, without leukocytosis, vitals stable case d/w Dr. Li
[2017-10-17] MEDS ORDERED: INSULIN (NOVOLOG) ASPART 100 UNITS/ML 10ML VIAL ONE (13:45)
[2017-10-17] MEDS ORDERED: PT OWN MED DRAWER 7, Y5N ONE (14:01)
[2017-10-17] MEDS: SACUBITRIL/VALSARTAN 24 MG-26 MG TABLET PO SCH ×2 (14:15→21:34)
[2017-10-17] MEDS: THIAMINE HCL 100 MG TABLET (FP) PO SCH (14:16)
[2017-10-17] MEDS: VITAMIN B COMP W-C 1 EA TABLET PO SCH (14:16)
[2017-10-17] MEDS: CLOPIDOGREL BISULFATE 75 MG TABLET (FP) PO SCH (14:16)
[2017-10-17] MEDS: metoPROLOL SUCCINATE 25 MG TAB.SR.24H (FP) PO SCH (14:17)
[2017-10-17] MEDS: SENNOSIDES/DOCUSATE COMBO (SENNA PLUS) TABLET (UD) PO SCH (14:18)
[2017-10-17] MEDS ORDERED: DEXTROSE 5%-WATER 200 ML IVPB ONE (14:40)
[2017-10-17] MEDS: COLLAGENASE CLOSTRIDIUM HIST. 30 GRAMS TUBE TP SCH (15:09)
--- NOTE | 2017-10-17 15:50 | PN ---
Progress Note, Physician History of Present Illness: Pt seen and examined at bedside. He is awake and alert. He denies shortness of breath. He tolerated HD today. - Current Medication List Current Medications: Active Medications Acetaminophen (Tylenol -) 325 mg PO Q8H PRN PRN Reason: PAIN LEVEL 7 - 10 Last Admin: 10/16/17 21:35 Dose: 325 mg Clopidogrel Bisulfate (Plavix -) 75 mg PO DAILY [facility] Last Admin: 10/17/17 14:16 Dose: 75 mg Collagenase (Santyl -) 1 applic TP DAILY [facility]; Protocol Last Admin: 10/17/17 15:09 Dose: 1 applic Diphenhydramine HCl (Benadryl -) 25 mg PO Q8H PRN PRN Reason: ITCHING Last Admin: 10/16/17 22:47 Dose: 25 mg Piperacillin Sod/Tazobactam (Sod 2.25 gm/ Dextrose) 100 mls @ 100 mls/hr IVPB Q8H-IV [facility]; Protocol Last Admin: 10/17/17 14:38 Dose: 100 mls/hr Sodium Chloride (Normal Saline -) 250 mls @ 3,000 mls/hr IV PRN PRN PRN Reason: Hypotension during Dialysis Stop: 10/17/17 12:46 Insulin Aspart (Novolog Vial Sliding Scale -) 1 vial SQ BIDAC [facility]; Protocol Last Admin: 10/17/17 06:18 Dose: Not Given Levothyroxine Sodium (Synthroid -) 75 mcg PO DAILY@0700 [facility] Last Admin: 10/17/17 06:18 Dose: 75 mcg Melatonin (Melatonin) 5 mg PO HS PRN PRN Reason: INSOMNIA Last Admin: 10/16/17 22:43 Dose: 5 mg Metoprolol Succinate (Toprol Xl -) 12.5 mg PO DAILY [facility] Last Admin: 10/17/17 14:17 Dose: 12.5 mg Morphine Sulfate (Morphine Sulfate) 2 mg IVPUSH Q4H PRN PRN Reason: PAIN LEVEL 7 - 10 Last Admin: 10/17/17 14:18 Dose: 2 mg Multivit/Ca Carb/B Cmplx/FA/Prenat (Nephro-Fer -) 1 tablet PO DAILY [facility] Last Admin: 10/17/17 14:16 Dose: 1 tablet Oxycodone HCl (Roxicodone -) 10 mg PO Q6H PRN PRN Reason: PAIN LEVEL 6-10 Last Admin: 10/16/17 21:33 Dose: 10 mg Sacubitril/Valsartan (Entresto 24 Mg-26 Mg Tablet) 1 tab PO BID [facility] Last Admin: 10/17/17 14:15 Dose: 1 tab Senna (Senna -) 2 tab PO HS [facility] Last Admin: 10/16/17 21:31 Dose: 2 tab Senna/Docusate Sodium (Pericolace -) 1 tablet PO DAILY [facility] Last Admin: 10/17/17 14:18 Dose: 1 tablet Thiamine HCl (Vitamin B1 -) 100 mg PO DAILY [facility] Last Admin: 10/17/17 14:16 Dose: 100 mg Warfarin Sodium (Coumadin -) 5 mg PO DAILY@1800 [facility] Last Admin: 10/16/17 18:21 Dose: 5 mg Warfarin Sodium (Coumadin -) 5 mg PO DAILY@1800 [facility] - Objective Vital Signs: Vital Signs Temperature 98.1 F 10/17/17 08:05 Pulse Rate 66 10/17/17 13:20 Respiratory Rate 18 10/17/17 13:20 Blood Pressure 91/61 10/17/17 13:20 O2 Sat by Pulse Oximetry (%) 100 10/16/17 21:00 Constitutional: Yes: Calm Eyes: Yes: Conjunctiva Clear HENT: Yes: Atraumatic Neck: Yes: Supple Cardiovascular: Yes: S1, S2 Respiratory: Yes: On Nasal O2 Gastrointestinal: Yes: Soft, Other (abd wall edema) Genitourinary: Yes: WNL Edema: Yes Edema: LLE: 2+, RLE: 2+ Neurological: Yes: Oriented Psychiatric: Yes: Oriented Labs: CBC, BMP 10/16/17 09:45 10/16/17 09:45 INR, PTT INR 1.93 (0.83-1.09) H 10/17/17 06:00 Problem List - Problems (1) Cellulitis Code(s): L03.90 - CELLULITIS, UNSPECIFIED Qualifiers: Site of cellulitis: extremity Site of cellulitis of extremity: lower extremity Laterality: right Qualified Code(s): L03.115 - Cellulitis of right lower limb (2) Diabetic foot ulcer Code(s): E11.621 - TYPE 2 DIABETES MELLITUS WITH FOOT ULCER; L97.509 - NON- PRESSURE CHRONIC ULCER OTH PRT UNSP FOOT W UNSP SEVERITY (3) Anemia Code(s): D64.9 - ANEMIA, UNSPECIFIED Qualifiers: Anemia type: due to chronic kidney disease (4) Atrial fibrillation Code(s): I48.91 - UNSPECIFIED ATRIAL FIBRILLATION Qualifiers: Atrial fibrillation type: permanent Qualified Code(s): I48.2 - Chronic atrial fibrillation (5) ESRD (end stage renal disease) Code(s): N18.6 - END STAGE RENAL DISEASE Assessment/Plan Current Medications Generic Name Dose Route Start Last Admin Trade Name Freq PRN Reason Stop Dose Admin Acetaminophen 325 mg 10/12/17 12:17 10/16/17 21:35 Tylenol - PO 325 mg Q8H PRN Administration PAIN LEVEL 7 - 10 Clopidogrel Bisulfate 75 mg 10/13/17 10:00 10/17/17 14:16 Plavix - PO 75 mg DAILY [facility] Administration Collagenase 1 applic 10/13/17 10:00 10/17/17 15:09 Santyl - TP 1 applic DAILY [facility] Administration Protocol Diphenhydramine HCl 25 mg 10/12/17 12:17 10/16/17 22:47 Benadryl - PO 25 mg Q8H PRN Administration ITCHING Piperacillin Sod/Tazobactam 100 mls @ 100 mls/hr 10/12/17 19:54 10/17/17 14: 38 Sod 2.25 gm/ Dextrose IVPB 100 mls/hr Q8H-IV [facility] Administration Protocol Sodium Chloride 250 mls @ 3,000 mls/hr 10/16/17 12:46 Normal Saline - IV 10/17/17 12:46 PRN PRN Hypotension during Dialysis Insulin Aspart 1 vial 10/12/17 16:30 10/17/17 06:18 Novolog Vial Sliding Scale - SQ Not Given BIDAC [facility] Protocol Levothyroxine Sodium 75 mcg 10/13/17 07:00 10/17/17 06:18 Synthroid - PO 75 mcg DAILY@0700 [facility] Administration Melatonin 5 mg 10/12/17 22:00 10/16/17 22:43 Melatonin PO 5 mg HS PRN Administration INSOMNIA Metoprolol Succinate 12.5 mg 10/13/17 10:00 10/17/17 14:17 Toprol Xl - PO 12.5 mg DAILY [facility] Administration Morphine Sulfate 2 mg 10/13/17 11:32 10/17/17 14:18 Morphine Sulfate IVPUSH 2 mg Q4H PRN Administration PAIN LEVEL 7 - 10 Multivit/Ca Carb/B Cmplx/FA/Prenat 1 tablet 10/13/17 10:00 10/17/17 14:16 Nephro-Fer - PO 1 tablet DAILY [facility] Administration Oxycodone HCl 10 mg 10/16/17 10:52 10/16/17 21:33 Roxicodone - PO 10 mg Q6H PRN Administration PAIN LEVEL 6-10 Sacubitril/Valsartan 1 tab 10/12/17 22:00 10/17/17 14:15 Entresto 24 Mg-26 Mg Tablet PO 1 tab BID [facility] Administration Senna 2 tab 10/12/17 22:00 10/16/17 21:31 Senna - PO 2 tab HS [facility] Administration Senna/Docusate Sodium 1 tablet 10/13/17 10:00 10/17/17 14:18 Pericolace - PO 1 tablet DAILY [facility] Administration Thiamine HCl 100 mg 10/13/17 10:00 10/17/17 14:16 Vitamin B1 - PO 100 mg DAILY [facility] Administration Warfarin Sodium 5 mg 10/12/17 18:00 10/16/17 18:21 Coumadin - PO 5 mg DAILY@1800 [facility] Administration Warfarin Sodium 5 mg 10/17/17 18:00 Coumadin - PO DAILY@1800 [facility] Impression 1. ESRD 2. hx pericardial effusion 3. hx pneumopericardium 4. hypothyroidism 5. a-fib 6. hypotension 7. hx of colon cancer 8. CHF 9. DM 10. hx of PE 11. CAD 12. foot ulcer Plan - pt tolerated HD today - next HD on then on Sat - cont HD 4x per week - cont wound care - epogen for anemia - monitor bp - will follow Dr Conklin
[2017-10-17] MEDS: WARFARIN NA 5 MG TABLET (UD) PO SCH ×2 (17:28→17:52)
[2017-10-17] MEDS: oxyCODONE HCL 5 MG TABLET PO PRN (17:28)
[2017-10-17] MEDS: ACETAMINOPHEN 325 MG TABLET (FP) PO PRN (17:29)
[2017-10-17 17:32] VITALS: BMI 31.4
--- NOTE | 2017-10-17 19:18 | PN ---
Progress Note (short form) - Note Progress Note: FUV right foot today POD#5. Seen in bed. No pain. present. VSS. Tmax 98.1 +vac on right foot, wbc=4.1, +coapted suture line, -necrosis of incision line, +grade 2-3 ulceration dorsally in midfoot area, +serosanguinous drainage in vac normal post op grade2-3 wound dorsal midfoot No pain Continue Vac. Left heel santyl dressing changes. Patient is under strict bed rest orders. Can go to bathroom but must go back to bed. Patient going to rehab tomorrow. Begin HBO upon DC. PTR to [facility]. Vac to be applied at rehab facility.
[2017-10-17] MEDS: SENNOSIDES 8.6MG TABLET (FP) PO SCH (21:57)
[2017-10-17] MEDS: diphenhydrAMINE HCL 25 MG CAPSULE (FP) PO PRN (21:57)
[2017-10-17] MEDS: MELATONIN 5 MG TABLETS PO PRN (21:57)
[2017-10-17] MEDS ORDERED: traMADol HCL 50 MG TABLET PO ONE (22:00)
[2017-10-18] MEDS ORDERED: PIPERACILLIN/TAZOBACTAM 2.25 GM VIAL IVPB ONE ×2 (00:19→09:12)
[2017-10-18] MEDS ORDERED: DEXTROSE 5%-WATER 100 ML IVPB ONE ×2 (00:19→09:12)
[2017-10-18] MEDS: PIPERACILLIN/TAZOB 2.25 GM 2.25 GM in DEXTROSE 5%-WATER 100 ML IVPB SCH ×2 (01:44→09:53)
[2017-10-18] MEDS: LEVOTHYROXINE NA 75 MCG TABLET (FP) PO SCH (06:04)
[2017-10-18] MEDS: INSULIN SLIDING SCALE (NOVOLOG) 1 VIAL SQ SCH ×2 (06:04→17:32)
[2017-10-18 07:41] LABS: INR 2.04 (0.83-1.09)
[2017-10-18] MEDS ORDERED: PT OWN MED DRAWER 7, Y5N ONE (09:11)
[2017-10-18] MEDS: SENNOSIDES/DOCUSATE COMBO (SENNA PLUS) TABLET (UD) PO SCH (09:56)
[2017-10-18] MEDS: THIAMINE HCL 100 MG TABLET (FP) PO SCH (09:56)
[2017-10-18] MEDS: metoPROLOL SUCCINATE 25 MG TAB.SR.24H (FP) PO SCH (09:57)
[2017-10-18] MEDS: COLLAGENASE CLOSTRIDIUM HIST. 30 GRAMS TUBE TP SCH (09:57)
[2017-10-18] MEDS: CLOPIDOGREL BISULFATE 75 MG TABLET (FP) PO SCH (09:57)
[2017-10-18] MEDS: VITAMIN B COMP W-C 1 EA TABLET PO SCH (09:57)
[2017-10-18] MEDS: SACUBITRIL/VALSARTAN 24 MG-26 MG TABLET PO SCH (09:59)
[2017-10-18] MEDS ORDERED: SODIUM CHLORIDE 250 ML IV PRN (10:48)
--- NOTE | 2017-10-18 10:48 | PN ---
Progress Note, Physician History of Present Illness: Pt seen and examined at bedside. He is awake and alert. He tolerated HD yesterday. - Current Medication List Current Medications: Active Medications Acetaminophen (Tylenol -) 325 mg PO Q8H PRN PRN Reason: PAIN LEVEL 7 - 10 Last Admin: 10/17/17 17:29 Dose: 325 mg Clopidogrel Bisulfate (Plavix -) 75 mg PO DAILY [facility] Last Admin: 10/18/17 09:57 Dose: 75 mg Collagenase (Santyl -) 1 applic TP DAILY [facility]; Protocol Last Admin: 10/18/17 09:57 Dose: 1 applic Diphenhydramine HCl (Benadryl -) 25 mg PO Q8H PRN PRN Reason: ITCHING Last Admin: 10/17/17 21:57 Dose: 25 mg Piperacillin Sod/Tazobactam (Sod 2.25 gm/ Dextrose) 100 mls @ 100 mls/hr IVPB Q8H-IV [facility]; Protocol Last Admin: 10/18/17 09:53 Dose: 100 mls/hr Sodium Chloride (Normal Saline -) 250 mls @ 3,000 mls/hr IV PRN PRN PRN Reason: Hypotension during Dialysis Stop: 10/17/17 12:46 Insulin Aspart (Novolog Vial Sliding Scale -) 1 vial SQ BIDAC [facility]; Protocol Last Admin: 10/18/17 06:04 Dose: Not Given Levothyroxine Sodium (Synthroid -) 75 mcg PO DAILY@0700 [facility] Last Admin: 10/18/17 06:04 Dose: 75 mcg Melatonin (Melatonin) 5 mg PO HS PRN PRN Reason: INSOMNIA Last Admin: 10/17/17 21:57 Dose: 5 mg Metoprolol Succinate (Toprol Xl -) 12.5 mg PO DAILY [facility] Last Admin: 10/18/17 09:57 Dose: 12.5 mg Morphine Sulfate (Morphine Sulfate) 2 mg IVPUSH Q4H PRN PRN Reason: PAIN LEVEL 7 - 10 Last Admin: 10/17/17 14:18 Dose: 2 mg Multivit/Ca Carb/B Cmplx/FA/Prenat (Nephro-Fer -) 1 tablet PO DAILY [facility] Last Admin: 10/18/17 09:57 Dose: 1 tablet Oxycodone HCl (Roxicodone -) 10 mg PO Q6H PRN PRN Reason: PAIN LEVEL 6-10 Last Admin: 10/17/17 17:28 Dose: 10 mg Sacubitril/Valsartan (Entresto 24 Mg-26 Mg Tablet) 1 tab PO BID [facility] Last Admin: 10/18/17 09:59 Dose: 1 tab Senna (Senna -) 2 tab PO HS [facility] Last Admin: 10/17/17 21:57 Dose: 2 tab Senna/Docusate Sodium (Pericolace -) 1 tablet PO DAILY [facility] Last Admin: 10/18/17 09:56 Dose: 1 tablet Thiamine HCl (Vitamin B1 -) 100 mg PO DAILY [facility] Last Admin: 10/18/17 09:56 Dose: 100 mg Warfarin Sodium (Coumadin -) 5 mg PO DAILY@1800 [facility] Last Admin: 10/17/17 17:52 Dose: 5 mg - Objective Vital Signs: Vital Signs Temperature 97.8 F 10/18/17 06:00 Pulse Rate 66 10/18/17 06:00 Respiratory Rate 20 10/18/17 06:00 Blood Pressure 87/58 10/18/17 06:00 O2 Sat by Pulse Oximetry (%) 96 10/17/17 20:55 Constitutional: Yes: Calm Eyes: Yes: Conjunctiva Clear HENT: Yes: Atraumatic Cardiovascular: Yes: S1, S2 Respiratory: Yes: On Nasal O2 Gastrointestinal: Yes: Normal Bowel Sounds, Soft Genitourinary: Yes: WNL Musculoskeletal: Yes: WNL Edema: Yes Edema: LLE: 2+, RLE: 2+ Neurological: Yes: Oriented Psychiatric: Yes: Oriented Labs: CBC, BMP 10/16/17 09:45 10/16/17 09:45 INR, PTT INR 2.04 (0.83-1.09) H 10/18/17 06:00 Problem List - Problems (1) Cellulitis Code(s): L03.90 - CELLULITIS, UNSPECIFIED Qualifiers: Site of cellulitis: extremity Site of cellulitis of extremity: lower extremity Laterality: right Qualified Code(s): L03.115 - Cellulitis of right lower limb (2) Diabetic foot ulcer Code(s): E11.621 - TYPE 2 DIABETES MELLITUS WITH FOOT ULCER; L97.509 - NON- PRESSURE CHRONIC ULCER OTH PRT UNSP FOOT W UNSP SEVERITY (3) Anemia Code(s): D64.9 - ANEMIA, UNSPECIFIED Qualifiers: Anemia type: due to chronic kidney disease (4) Atrial fibrillation Code(s): I48.91 - UNSPECIFIED ATRIAL FIBRILLATION Qualifiers: Atrial fibrillation type: permanent Qualified Code(s): I48.2 - Chronic atrial fibrillation (5) ESRD (end stage renal disease) Code(s): N18.6 - END STAGE RENAL DISEASE Assessment/Plan Current Medications Generic Name Dose Route Start Last Admin Trade Name Freq PRN Reason Stop Dose Admin Acetaminophen 325 mg 10/12/17 12:17 10/17/17 17:29 Tylenol - PO 325 mg Q8H PRN Administration PAIN LEVEL 7 - 10 Clopidogrel Bisulfate 75 mg 10/13/17 10:00 10/18/17 09:57 Plavix - PO 75 mg DAILY [facility] Administration Collagenase 1 applic 10/13/17 10:00 10/18/17 09:57 Santyl - TP 1 applic DAILY [facility] Administration Protocol Diphenhydramine HCl 25 mg 10/12/17 12:17 10/17/17 21:57 Benadryl - PO 25 mg Q8H PRN Administration ITCHING Piperacillin Sod/Tazobactam 100 mls @ 100 mls/hr 10/12/17 19:54 10/18/17 09: 53 Sod 2.25 gm/ Dextrose IVPB 100 mls/hr Q8H-IV [facility] Administration Protocol Sodium Chloride 250 mls @ 3,000 mls/hr 10/16/17 12:46 Normal Saline - IV 10/17/17 12:46 PRN PRN Hypotension during Dialysis Insulin Aspart 1 vial 10/12/17 16:30 10/18/17 06:04 Novolog Vial Sliding Scale - SQ Not Given BIDAC [facility] Protocol Levothyroxine Sodium 75 mcg 10/13/17 07:00 10/18/17 06:04 Synthroid - PO 75 mcg DAILY@0700 [facility] Administration Melatonin 5 mg 10/12/17 22:00 10/17/17 21:57 Melatonin PO 5 mg HS PRN Administration INSOMNIA Metoprolol Succinate 12.5 mg 10/13/17 10:00 10/18/17 09:57 Toprol Xl - PO 12.5 mg DAILY [facility] Administration Morphine Sulfate 2 mg 10/13/17 11:32 10/17/17 14:18 Morphine Sulfate IVPUSH 2 mg Q4H PRN Administration PAIN LEVEL 7 - 10 Multivit/Ca Carb/B Cmplx/FA/Prenat 1 tablet 10/13/17 10:00 10/18/17 09:57 Nephro-Fer - PO 1 tablet DAILY [facility] Administration Oxycodone HCl 10 mg 10/16/17 10:52 10/17/17 17:28 Roxicodone - PO 10 mg Q6H PRN Administration PAIN LEVEL 6-10 Sacubitril/Valsartan 1 tab 10/12/17 22:00 10/18/17 09:59 Entresto 24 Mg-26 Mg Tablet PO 1 tab BID [facility] Administration Senna 2 tab 10/12/17 22:00 10/17/17 21:57 Senna - PO 2 tab HS [facility] Administration Senna/Docusate Sodium 1 tablet 10/13/17 10:00 10/18/17 09:56 Pericolace - PO 1 tablet DAILY [facility] Administration Thiamine HCl 100 mg 10/13/17 10:00 10/18/17 09:56 Vitamin B1 - PO 100 mg DAILY [facility] Administration Warfarin Sodium 5 mg 10/17/17 18:00 10/17/17 17:52 Coumadin - PO 5 mg DAILY@1800 [facility] Administration Impression 1. ESRD 2. hx pericardial effusion 3. hx pneumopericardium 4. hypothyroidism 5. a-fib 6. hypotension 7. hx of colon cancer 8. CHF 9. DM 10. hx of PE 11. CAD 12. foot ulcer 13. volume overload Plan - pt toelrated HD yesterday - HD again tomorrow - cont with HD 4 times per week until his volume status is stabilized - ID follow up to address abx choice and duration - cont wound care - epogen for anemia - monitor bp - will follow Dr Conklin
[2017-10-18] MEDS: oxyCODONE HCL 5 MG TABLET PO PRN ×2 (10:53→17:37)
--- NOTE | 2017-10-18 11:09 | PN ---
Progress Note, Physician History of Present Illness: He denies chest pain, SOB or palpitations. He denies paroxysmal nocturnal dyspnea or orthopnea. He denies fever or chills. POD#6 debridement of bone and soft tissue with revision of partial TMA with improving post-op foot discomfort , wound vac in place. Job Coach: Dr. Ghassan Durant - Current Medication List Current Medications: Active Medications Acetaminophen (Tylenol -) 325 mg PO Q8H PRN PRN Reason: PAIN LEVEL 7 - 10 Last Admin: 10/17/17 17:29 Dose: 325 mg Albumin Human (Albumin Human 25%) 12.5 gm IVPB Q30M [facility] Clopidogrel Bisulfate (Plavix -) 75 mg PO DAILY [facility] Last Admin: 10/18/17 09:57 Dose: 75 mg Collagenase (Santyl -) 1 applic TP DAILY [facility]; Protocol Last Admin: 10/18/17 09:57 Dose: 1 applic Diphenhydramine HCl (Benadryl -) 25 mg PO Q8H PRN PRN Reason: ITCHING Last Admin: 10/17/17 21:57 Dose: 25 mg Epoetin Hector (Epogen -) 5,000 unit IVPUSH ONCE ONE Stop: 10/19/17 10:49 Sodium Chloride (Normal Saline -) 250 mls @ 3,000 mls/hr IV PRN PRN PRN Reason: Hypotension during Dialysis Stop: 10/17/17 12:46 Sodium Chloride (Normal Saline -) 250 mls @ 3,000 mls/hr IV PRN PRN PRN Reason: Hypotension during Dialysis Stop: 10/19/17 10:48 Insulin Aspart (Novolog Vial Sliding Scale -) 1 vial SQ BIDAC [facility]; Protocol Last Admin: 10/18/17 06:04 Dose: Not Given Levothyroxine Sodium (Synthroid -) 75 mcg PO DAILY@0700 [facility] Last Admin: 10/18/17 06:04 Dose: 75 mcg Melatonin (Melatonin) 5 mg PO HS PRN PRN Reason: INSOMNIA Last Admin: 10/17/17 21:57 Dose: 5 mg Metoprolol Succinate (Toprol Xl -) 12.5 mg PO DAILY [facility] Last Admin: 10/18/17 09:57 Dose: 12.5 mg Morphine Sulfate (Morphine Sulfate) 2 mg IVPUSH Q4H PRN PRN Reason: PAIN LEVEL 7 - 10 Last Admin: 10/17/17 14:18 Dose: 2 mg Multivit/Ca Carb/B Cmplx/FA/Prenat (Nephro-Fer -) 1 tablet PO DAILY [facility] Last Admin: 10/18/17 09:57 Dose: 1 tablet Oxycodone HCl (Roxicodone -) 10 mg PO Q6H PRN PRN Reason: PAIN LEVEL 6-10 Last Admin: 10/18/17 10:53 Dose: 10 mg Sacubitril/Valsartan (Entresto 24 Mg-26 Mg Tablet) 1 tab PO BID [facility] Last Admin: 10/18/17 09:59 Dose: 1 tab Senna (Senna -) 2 tab PO HS [facility] Last Admin: 10/17/17 21:57 Dose: 2 tab Senna/Docusate Sodium (Pericolace -) 1 tablet PO DAILY [facility] Last Admin: 10/18/17 09:56 Dose: 1 tablet Thiamine HCl (Vitamin B1 -) 100 mg PO DAILY [facility] Last Admin: 10/18/17 09:56 Dose: 100 mg Warfarin Sodium (Coumadin -) 5 mg PO DAILY@1800 [facility] Last Admin: 10/17/17 17:52 Dose: 5 mg - Objective Vital Signs: Vital Signs Temperature 97.8 F 10/18/17 06:00 Pulse Rate 66 10/18/17 06:00 Respiratory Rate 20 10/18/17 06:00 Blood Pressure 87/58 10/18/17 06:00 O2 Sat by Pulse Oximetry (%) 96 10/17/17 20:55 Constitutional: Yes: No Distress, Calm Neck: Yes: Supple Cardiovascular: Yes: Regular Rate and Rhythm Respiratory: Yes: Regular, CTA Bilaterally Gastrointestinal: Yes: Normal Bowel Sounds, Soft Extremities: Yes: Amputation (Right TMA with wound vac in place) Edema: No Labs: CBC, BMP 10/16/17 09:45 10/16/17 09:45 INR, PTT INR 2.04 (0.83-1.09) H 10/18/17 06:00 Problem List - Problems (1) Atrial fibrillation Code(s): I48.91 - UNSPECIFIED ATRIAL FIBRILLATION Qualifiers: Atrial fibrillation type: permanent Qualified Code(s): I48.2 - Chronic atrial fibrillation (2) Cardiomyopathy Code(s): I42.9 - CARDIOMYOPATHY, UNSPECIFIED Qualifiers: Cardiomyopathy type: unspecified Qualified Code(s): I42.9 - Cardiomyopathy , unspecified (3) Chronic anticoagulation Code(s): Z79.01 - TRAPEZE PERFORMER (CURRENT) USE OF 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 (4) 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 Code(s): E11.9 - TYPE 2 DIABETES MELLITUS WITHOUT COMPLICATIONS Qualifiers: 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 type: type 2 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 group home insulin use: without group home use 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 complication status: without complication Qualified Code(s): E11.9 - Type 2 diabetes mellitus without complications (5) ESRD (end stage renal disease) Code(s): N18.6 - END STAGE RENAL DISEASE (6) HTN (hypertension) Code(s): I10 - ESSENTIAL (PRIMARY) HYPERTENSION Qualifiers: Hypertension type: essential hypertension Qualified Code(s): I10 - Essential (primary) hypertension (7) Hypothyroid Code(s): E03.9 - HYPOTHYROIDISM, UNSPECIFIED Qualifiers: Hypothyroidism type: unspecified Qualified Code(s): E03.9 - Hypothyroidism , unspecified (8) ICD (implantable cardioverter-defibrillator) in place Code(s): Z95.810 - PRESENCE OF AUTOMATIC (IMPLANTABLE) CARDIAC DEFIBRILLATOR (9) Open wound of foot Code(s): S91.309A - UNSPECIFIED OPEN WOUND, UNSPECIFIED FOOT, INITIAL ENCOUNTER Qualifiers: Encounter type: subsequent encounter Laterality: right Qualified Code(s) : S91.301D - Unspecified open wound, right foot, subsequent encounter (10) Osteomyelitis Code(s): M86.9 - OSTEOMYELITIS, UNSPECIFIED Qualifiers: Osteomyelitis type: other Osteomyelitis location: foot Laterality: right Qualified Code(s): M86.8X7 - Other osteomyelitis, ankle and foot (11) Pericardial effusion Code(s): I31.3 - PERICARDIAL EFFUSION (NONINFLAMMATORY) (12) Status post peripheral artery angioplasty Code(s): Z98.62 - PERIPHERAL VASCULAR ANGIOPLASTY STATUS Assessment/Plan 09/12/2017 Echo: Moderate pericardial effusion, no tamponade, mildly dilated LV with severely decreased LV fxn, mild-mod dilated RV with severely decreased RV fxn, mod-severe MUKUL, mild MR, mild-mod TR, mild AR 10/05/2017 Echo: Moderately dilated with severely decreased LV fxn, RV dilated with severely decreased RV fxn, mod LAE, mild MR, mod TR, mild AR, mod pericardial effusion similar to previous 1. Peripheral artery disease and gangrene right forefoot post right tibial revacularization and debridement of bone and soft tissue with transmetatarsal amputation planned for debridement bone and soft tissue with revision of partial TMA and placement of wound vac 2. Ischemic dilated cardiomyopathy with chronic class I-II NYHA classification LV failure, compensated/euvolemic, post prophylactic ICD implant 3. CAD post [place] with evidence of demand ischemic injury angina pectoris, clinically stable 4. Persistent atrial fibrillation [id number] score of 3-4 on Coumadin with therapeutic INR 5. Pericardial effusion probably uremic pericarditis, moderate in severity/ unchanged 6. 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 7. Hypothyroidism 8. History of PTE 9. ESRD 10. History of colon cancer PLAN: 1. Antibiotics course, wound vac care, hyperbaric oxygen and analgesia as needed per the primary team 2. HD as per renal service and replete K 3. Continue Plavix 75 qd and Coumadin as per INR with close monitoring of CBC 4. Continue Toprol XL 12.5 qd and titrate as hemodynamics permit/tolerate 5. Continue Entresto 24/26 bid and titrate as hemodynamics permit/tolerate Job Coach: Dr. Ghassan Durant
--- NOTE | 2017-10-18 13:00 | PN ---
Progress Note, Physician History of Present Illness: Pt is alert, pain controlled. Currently afebrile, without specific complaints. - Current Medication List Current Medications: Active Medications Acetaminophen (Tylenol -) 325 mg PO Q8H PRN PRN Reason: PAIN LEVEL 7 - 10 Last Admin: 10/17/17 17:29 Dose: 325 mg Albumin Human (Albumin Human 25%) 12.5 gm IVPB Q30M [facility] Clopidogrel Bisulfate (Plavix -) 75 mg PO DAILY [facility] Last Admin: 10/18/17 09:57 Dose: 75 mg Collagenase (Santyl -) 1 applic TP DAILY [facility]; Protocol Last Admin: 10/18/17 09:57 Dose: 1 applic Diphenhydramine HCl (Benadryl -) 25 mg PO Q8H PRN PRN Reason: ITCHING Last Admin: 10/17/17 21:57 Dose: 25 mg Epoetin Hector (Epogen -) 5,000 unit IVPUSH ONCE ONE Stop: 10/19/17 10:49 Sodium Chloride (Normal Saline -) 250 mls @ 3,000 mls/hr IV PRN PRN PRN Reason: Hypotension during Dialysis Stop: 10/17/17 12:46 Sodium Chloride (Normal Saline -) 250 mls @ 3,000 mls/hr IV PRN PRN PRN Reason: Hypotension during Dialysis Stop: 10/19/17 10:48 Insulin Aspart (Novolog Vial Sliding Scale -) 1 vial SQ BIDAC [facility]; Protocol Last Admin: 10/18/17 06:04 Dose: Not Given Levothyroxine Sodium (Synthroid -) 75 mcg PO DAILY@0700 [facility] Last Admin: 10/18/17 06:04 Dose: 75 mcg Melatonin (Melatonin) 5 mg PO HS PRN PRN Reason: INSOMNIA Last Admin: 10/17/17 21:57 Dose: 5 mg Metoprolol Succinate (Toprol Xl -) 12.5 mg PO DAILY [facility] Last Admin: 10/18/17 09:57 Dose: 12.5 mg Morphine Sulfate (Morphine Sulfate) 2 mg IVPUSH Q4H PRN PRN Reason: PAIN LEVEL 7 - 10 Last Admin: 10/17/17 14:18 Dose: 2 mg Multivit/Ca Carb/B Cmplx/FA/Prenat (Nephro-Fer -) 1 tablet PO DAILY [facility] Last Admin: 10/18/17 09:57 Dose: 1 tablet Oxycodone HCl (Roxicodone -) 10 mg PO Q6H PRN PRN Reason: PAIN LEVEL 6-10 Last Admin: 10/18/17 10:53 Dose: 10 mg Sacubitril/Valsartan (Entresto 24 Mg-26 Mg Tablet) 1 tab PO BID [facility] Last Admin: 10/18/17 09:59 Dose: 1 tab Senna (Senna -) 2 tab PO HS [facility] Last Admin: 10/17/17 21:57 Dose: 2 tab Senna/Docusate Sodium (Pericolace -) 1 tablet PO DAILY [facility] Last Admin: 10/18/17 09:56 Dose: 1 tablet Thiamine HCl (Vitamin B1 -) 100 mg PO DAILY [facility] Last Admin: 10/18/17 09:56 Dose: 100 mg Warfarin Sodium (Coumadin -) 5 mg PO DAILY@1800 [facility] Last Admin: 10/17/17 17:52 Dose: 5 mg - Objective Vital Signs: Vital Signs Temperature 97.9 F 10/18/17 10:00 Pulse Rate 65 10/18/17 10:00 Respiratory Rate 18 10/18/17 10:00 Blood Pressure 92/54 10/18/17 10:00 O2 Sat by Pulse Oximetry (%) 96 10/17/17 20:55 Constitutional: Yes: No Distress, Calm Cardiovascular: Yes: Regular Rate and Rhythm Respiratory: Yes: Regular Gastrointestinal: Yes: Normal Bowel Sounds, Soft Edema: LLE: 3+, RLE: 3+ Wound/Incision: Yes: Other (Rt foot wound vac) Neurological: Yes: Alert, Oriented Labs: CBC, BMP 10/16/17 09:45 10/16/17 09:45 INR, PTT INR 2.04 (0.83-1.09) H 10/18/17 06:00 Microbiology 10/03/17 15:43 Blood - Peripheral Venous Blood Culture - Final NO GROWTH AFTER 5 DAYS INCUBATION 10/03/17 15:39 Blood - Peripheral Venous Blood Culture - Final NO GROWTH AFTER 5 DAYS INCUBATION 10/04/17 10:00 Foot - Rt Transmetatarsal Amp. Site Gram Stain - Final 10/04/17 10:00 Foot - Rt Transmetatarsal Amp. Site Wound Culture - Final Diphtheroid/Corynebacterium Diphtheroid/Corynebacterium#2 Problem List - Problems (1) Cellulitis Code(s): L03.90 - CELLULITIS, UNSPECIFIED Qualifiers: Site of cellulitis: extremity Site of cellulitis of extremity: lower extremity Laterality: right Qualified Code(s): L03.115 - Cellulitis of right lower limb (2) Diabetic foot ulcer Code(s): E11.621 - TYPE 2 DIABETES MELLITUS WITH FOOT ULCER; L97.509 - NON- PRESSURE CHRONIC ULCER OTH PRT UNSP FOOT W UNSP SEVERITY (3) Amputated toe of right foot Code(s): Z89.421 - ACQUIRED ABSENCE OF OTHER RIGHT TOE(S) (4) Anemia Code(s): D64.9 - ANEMIA, UNSPECIFIED Qualifiers: Anemia type: due to chronic kidney disease (5) Atrial fibrillation Code(s): I48.91 - UNSPECIFIED ATRIAL FIBRILLATION Qualifiers: Atrial fibrillation type: permanent Qualified Code(s): I48.2 - Chronic atrial fibrillation (6) Cardiomyopathy Code(s): I42.9 - CARDIOMYOPATHY, UNSPECIFIED Qualifiers: Cardiomyopathy type: unspecified Qualified Code(s): I42.9 - Cardiomyopathy , unspecified (7) Cellulitis of right lower extremity Code(s): L03.115 - CELLULITIS OF RIGHT LOWER LIMB (8) 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 Code(s): E11.9 - TYPE 2 DIABETES MELLITUS WITHOUT COMPLICATIONS Qualifiers: 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 type: type 2 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 terminal system operator insulin use: without terminal system operator use 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 complication status: without complication Qualified Code(s): E11.9 - Type 2 diabetes mellitus without complications (9) ESRD (end stage renal disease) Code(s): N18.6 - END STAGE RENAL DISEASE (10) HTN (hypertension) Code(s): I10 - ESSENTIAL (PRIMARY) HYPERTENSION Qualifiers: Hypertension type: essential hypertension Qualified Code(s): I10 - Essential (primary) hypertension (11) Open wound of foot Code(s): S91.309A - UNSPECIFIED OPEN WOUND, UNSPECIFIED FOOT, INITIAL ENCOUNTER Qualifiers: Encounter type: subsequent encounter Laterality: right Qualified Code(s) : S91.301D - Unspecified open wound, right foot, subsequent encounter (12) Osteomyelitis Code(s): M86.9 - OSTEOMYELITIS, UNSPECIFIED Qualifiers: Osteomyelitis type: other Osteomyelitis location: foot Laterality: right Qualified Code(s): M86.8X7 - Other osteomyelitis, ankle and foot (13) Status post peripheral artery angioplasty Code(s): Z98.62 - PERIPHERAL VASCULAR ANGIOPLASTY STATUS Assessment/Plan 72 y.o. 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
--- NOTE | 2017-10-18 13:03 | PN ---
Progress Note (short form) - Note Progress Note: Progress Note (short form) - Note Progress Note: pod # 5 feels well anxious to go back to [place] Vital Signs - 24 hr 10/17/17 10/17/17 10/17/17 13:10 13:20 19:54 Temperature 98.4 F Pulse Rate 72 66 67 Respiratory 18 18 20 Rate Blood Pressure 99/66 91/61 89/59 O2 Sat by Pulse Oximetry (%) 10/17/17 10/18/17 10/18/17 20:55 01:12 06:00 Temperature 98.2 F 97.6 F 97.8 F Pulse Rate 66 65 66 Respiratory 20 20 20 Rate Blood Pressure 88/50 87/58 87/58 O2 Sat by Pulse 96 Oximetry (%) 10/18/17 10/18/17 09:00 10:00 Temperature 97.9 F Pulse Rate 65 Respiratory 18 Rate Blood Pressure 92/54 O2 Sat by Pulse 96 Oximetry (%) Current Medications Generic Name Dose Route Start Last Admin Trade Name Freq PRN Reason Stop Dose Admin Acetaminophen 325 mg 10/12/17 12:17 10/17/17 17:29 Tylenol - PO 325 mg Q8H PRN Administration PAIN LEVEL 7 - 10 Albumin Human 12.5 gm 10/19/17 11:00 Albumin Human 25% IVPB Q30M VIRAJ Clopidogrel Bisulfate 75 mg 10/13/17 10:00 10/18/17 09:57 Plavix - PO 75 mg DAILY VIRAJ Administration Collagenase 1 applic 10/13/17 10:00 10/18/17 09:57 Santyl - TP 1 applic DAILY VIRAJ Administration Protocol Diphenhydramine HCl 25 mg 10/12/17 12:17 10/17/17 21:57 Benadryl - PO 25 mg Q8H PRN Administration ITCHING Epoetin Hector 5,000 unit 10/19/17 10:48 Epogen - IVPUSH 10/19/17 10:49 ONCE ONE Sodium Chloride 250 mls @ 3,000 mls/hr 10/16/17 12:46 Normal Saline - IV 10/17/17 12:46 PRN PRN Hypotension during Dialysis Sodium Chloride 250 mls @ 3,000 mls/hr 10/18/17 10:48 Normal Saline - IV 10/19/17 10:48 PRN PRN Hypotension during Dialysis Insulin Aspart 1 vial 10/12/17 16:30 10/18/17 06:04 Novolog Vial Sliding Scale - SQ Not Given BIDAC [facility] Protocol Levothyroxine Sodium 75 mcg 10/13/17 07:00 10/18/17 06:04 Synthroid - PO 75 mcg DAILY@0700 VRIAJ Administration Melatonin 5 mg 10/12/17 22:00 10/17/17 21:57 Melatonin PO 5 mg HS PRN Administration INSOMNIA Metoprolol Succinate 12.5 mg 10/13/17 10:00 10/18/17 09:57 Toprol Xl - PO 12.5 mg DAILY VIRAJ Administration Morphine Sulfate 2 mg 10/13/17 11:32 10/17/17 14:18 Morphine Sulfate IVPUSH 2 mg Q4H PRN Administration PAIN LEVEL 7 - 10 Multivit/Ca Carb/B Cmplx/FA/Prenat 1 tablet 10/13/17 10:00 10/18/17 09:57 Nephro-Fer - PO 1 tablet DAILY VIRAJ Administration Oxycodone HCl 10 mg 10/16/17 10:52 10/18/17 10:53 Roxicodone - PO 10 mg Q6H PRN Administration PAIN LEVEL 6-10 Sacubitril/Valsartan 1 tab 10/12/17 22:00 10/18/17 09:59 Entresto 24 Mg-26 Mg Tablet PO 1 tab BID VIRAJ Administration Senna 2 tab 10/12/17 22:00 10/17/17 21:57 Senna - PO 2 tab HS VIRAJ Administration Senna/Docusate Sodium 1 tablet 10/13/17 10:00 10/18/17 09:56 Pericolace - PO 1 tablet DAILY VIRAJ Administration Thiamine HCl 100 mg 10/13/17 10:00 10/18/17 09:56 Vitamin B1 - PO 100 mg DAILY VIRAJ Administration Warfarin Sodium 5 mg 10/17/17 18:00 10/17/17 17:52 Coumadin - PO 5 mg DAILY@1800 VIRAJ Administration Laboratory Results - last 24 hr 10/17/17 10/18/17 10/18/17 16:32 06:00 06:03 PT with INR 23.00 H INR 2.04 H POC Glucometer 155 88 Physical Exam. Alert/ awake. neck: Yes: WNL, Supple, Trachea Midline Cardiovascular: Yes: Pulse regular, S1, S2 Respiratory: Yes: WNL, Regular, CTA Bilaterally, On Nasal O2 Gastrointestinal: Yes: Normal Bowel Sounds, Soft Vac placed A/P Right foor cellulitis DM CHF S/P right posterior tibial artery re-vascularization and subsequent foot amputation digit-2-5 afib PE Colon ca- s/p resection peripheral neuropathy ESRD on HD stable abx dc remove tunneled catheter will be discharged today to [place] after tunneled cath is removed Problem List - Problems (1) Cellulitis Code(s): L03.90 - CELLULITIS, UNSPECIFIED Qualifiers: Site of cellulitis: extremity Site of cellulitis of extremity: lower extremity Laterality: right Qualified Code(s): L03.115 - Cellulitis of right lower limb (2) Diabetic foot ulcer Code(s): E11.621 - TYPE 2 DIABETES MELLITUS WITH FOOT ULCER; L97.509 - NON- PRESSURE CHRONIC ULCER OTH PRT UNSP FOOT W UNSP SEVERITY (3) Amputated toe of right foot Code(s): Z89.421 - ACQUIRED ABSENCE OF OTHER RIGHT TOE(S) (4) Atrial fibrillation Code(s): I48.91 - UNSPECIFIED ATRIAL FIBRILLATION Qualifiers: Atrial fibrillation type: permanent Qualified Code(s): I48.2 - Chronic atrial fibrillation (5) Cardiomyopathy Code(s): I42.9 - CARDIOMYOPATHY, UNSPECIFIED Qualifiers: Cardiomyopathy type: unspecified Qualified Code(s): I42.9 - Cardiomyopathy , unspecified (6) Chronic anticoagulation Code(s): Z79.01 - CARE HOME (CURRENT) USE OF 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
[2017-10-18 15:05] VITALS: BP 113/55; PULSE 77; TEMP 97.3
[2017-10-18] MEDS: WARFARIN NA 5 MG TABLET (UD) PO SCH (17:38)
[2017-10-19] MEDS ORDERED: EPOETIN ALFA 2,000 UNIT/1 ML VIAL IVPUSH ONE (10:48)
[2017-10-19] MEDS ORDERED: ALBUMIN HUMAN 25% 12.5 GM/50 ML VIAL IVPB SCH (11:00)
== END 2017-10-18 19:00 | DRG 503 ==
LOC: JER 14:30 → JERBED 18:53 → J7W 22:46
PROVIDERS: ADMIT Internal Medicine; ATTEND Internal Medicine
PROC: 0Y6R0Z0 Detachment at Right 2nd Toe, Complete, Open Approach (ICD-10-PCS; principal; 2017-10-11)
PROC: 0Y6T0Z0 Detachment at Right 3rd Toe, Complete, Open Approach (ICD-10-PCS; 2017-10-11)
PROC: 0Y6V0Z0 Detachment at Right 4th Toe, Complete, Open Approach (ICD-10-PCS; 2017-10-11)
PROC: 0Y6X0Z0 Detachment at Right 5th Toe, Complete, Open Approach (ICD-10-PCS; 2017-10-11)
PROC: 0QBQ0ZZ Excision of Right Toe Phalanx, Open Approach (ICD-10-PCS; 2017-10-11)
PROC: 5A1D90Z Performance of Urinary Filtration, Continuous, Greater than 18 hours Per Day (ICD-10-PCS; 2017-10-17)
DX: T87.43 Infection of amputation stump, right lower extremity (principal); N18.6 End stage renal disease; I13.2 Hypertensive heart and chronic kidney disease with heart failure and with stage 5 chronic kidney disease, or end stage renal disease; L03.115 Cellulitis of right lower limb; I31.3 Pericardial effusion (noninflammatory); E11.621 Type 2 diabetes mellitus with foot ulcer; L97.509 Non-pressure chronic ulcer of other part of unspecified foot with unspecified severity; I48.2 Chronic atrial fibrillation; Z79.01 Long term (current) use of anticoagulants; E11.22 Type 2 diabetes mellitus with diabetic chronic kidney disease; Z99.2 Dependence on renal dialysis; Z89.421 Acquired absence of other right toe(s); I25.5 Ischemic cardiomyopathy; I25.10 Atherosclerotic heart disease of native coronary artery without angina pectoris; E03.9 Hypothyroidism, unspecified; I50.9 Heart failure, unspecified; D63.1 Anemia in chronic kidney disease; Y83.9 Surgical procedure, unspecified as the cause of abnormal reaction of the patient, or of later complication, without mention of misadventure at the time of the procedure; E11.40 Type 2 diabetes mellitus with diabetic neuropathy, unspecified; E11.42 Type 2 diabetes mellitus with diabetic polyneuropathy
CPT/HCPCS: 36415; 71045-TC-FY; 73630-TC-LT; 73630-TC-RT-FY; 80048; 80053; 82962; 83605; 84484; 85025; 85027; 85610; 86704; 86706; 86708; 86803; 87040; 87070; 87077; 87205; 87340; 88304-TC; 93005; 93010; 93306-TC; 93923; 93926-TC; 93971-TC; 94760; 99284-25; G0463-25; J0885; P9047

== ENCOUNTER → 2017-11-06 | Day surgery (SDC) | payer BC, OTHER | END | disposition home or self-care (01) | LOC: JRADIR 12:14 | PROVIDERS: ATTEND Internal Medicine | PROC: 0JPT0XZ Removal of Tunneled Vascular Access Device from Trunk Subcutaneous Tissue and Fascia, Open Approach (ICD-10-PCS; principal; 2017-11-06) | DX: Z45.2 Encounter for adjustment and management of vascular access device (principal) | CPT/HCPCS: 36589; 82962; G0277 ==

== ENCOUNTER 2017-12-26 11:29 | Inpatient (IN) | payer BC, OTHER ==
--- NOTE | 2017-12-26 12:04 | PDOC ---
History of Present Illness - General Chief Complaint: Wound Stated Complaint: PCP SENT, RT TOE PAIN Time Seen by Provider: 12/26/17 12:04 - History of Present Illness Initial Comments: Carlos Manuel Browne is a 72yo man with a PMH of ESRD on HD (TThS), hypotension, hypothyroidism, a-fib on warfarin, cardiomyopathy s/p ICD, DM, colon CA s/p resection, and known RLE gangrene with previous amputation of toes 2-5 who presents with R great toe wet gangrene. He reports that he went to see Dr Cope yesterday and was directed to go to the ED because his toe will need to be amputated. He did not come yesterday because he wanted to attend dialysis this morning, which he completed successfully. Mr Browne reports that he has had temperatures to 99.8F at home but also reports shivering chills over the past few days. He states that his right leg is extremely painful, currently "14/10" because he did not take his Percocet at home this morning. He also states that the right leg has become increasingly warm and swollen over the past few days as well. He has not had any other new symptoms recently including worsening SOB, chest pain, nausea/vomiting, or change in bowel habits. Past History - Past Medical History Allergies/Adverse Reactions: Allergies Allergy/AdvReac Type Severity Reaction Status Date / Time No Known Drug Allergies Allergy Verified 09/11/17 09:55 Home Medications: Ambulatory Orders Clopidogrel Bisulfate [Plavix -] 75 mg PO DAILY 09/11/17 Glucosamine Sulfate Dipot Chlr [Glucosamine] 500 mg PO DAILY 09/11/17 Levothyroxine [Synthroid -] 75 mcg PO DAILY 09/11/17 Melatonin 5 mg PO HS PRN 09/11/17 Oxycodone HCl/Acetaminophen [Percocet 5-325 mg Tablet] 1 tab PO Q8H PRN Sacubitril/Valsartan [Entresto 24 mg-26 mg Tablet] 1 each PO BID 09/11/17 Sennosides [Senna -] 2 tab PO HS 09/11/17 Thiamine HCl [B-1] 100 mg PO DAILY 09/11/17 Acetaminophen [Tylenol .Regular Strength -] 325 mg PO Q8H PRN tablet 09/18/17 Metoprolol Succinate [Toprol XL -] 12.5 mg PO DAILY tab.sr.24h 09/18/17 Sitagliptin Phosphate [Januvia -] 25 mg PO 0700 tab 09/18/17 Warfarin Na [Coumadin -] 6 mg PO DAILY@1800 tablet 09/18/17 Insulin Aspart [Novolog] 100 unit SQ BID 10/04/17 Bacitracin - [Bacitracin Topical Ointment -] 500 units TP BID 11/29/17 Latanoprost 0.005% Eye Drops [Xalatan 0.005% Eye Drops -] 1 drop HS 11/29/17 Vitamin B Comp W-C [Nephro-Fer -] 0.8 mg PO DAILY 11/29/17 Polyethylene Glycol 3350 [Miralax (For Daily Use) -] 17 gm PO BID 12/26/17 Anemia: No Asthma: Yes Cancer: Yes (COLON CA) Cardiac Disorders: Yes (Afib- on coumasin) COPD: No CHF: Yes Diabetes: Yes Dialysis: Yes () HTN: Yes Hypercholesterolemia: Yes Thyroid Disease: Yes - Surgical History Abdominal Surgery: Yes (SURGERY FOR COLON CA RX WITH CHEMO) Cardiac Surgery: Yes (Pacemaker) - Immunization History Immunization Up to Date: Yes - Suicide/Smoking/Psychosocial Hx Smoking History: Former smoker Have you smoked in the past 12 months: No If you are a former smoker, when did you quit?: 1981 Information on smoking cessation initiated: No Hx Alcohol Use: No Drug/Substance Use Hx: No Substance Use Type: None Hx Substance Use Treatment: No Review of Systems - Review of Systems Comments:: General: +Fevers, +shivering chills. No weight or appetite change. +Malaise HEENT: No changes in vision, no changes in hearing, no congestion, no sore throat CV: No chest pain, no palpitations. +LE edema. +ROMERO. +ICD Pulm: No cough, no wheezing GI: No nausea or vomiting, no change in bowel habits, no melena :+ESRD on HD Musc: See HPI Skin: No rash. +RLE erythema Endo: No excessive thirst, no heat/cold intolerance. +h/o DM Heme: No unusual bruising or bleeding, no swollen glands. +anticoagulated on warfarin Neuro: No syncope, no numbness/tingling, no focal weakness Psych: No recent change in mood, no SI or HI *Physical Exam - Vital Signs Last Vital Signs Temp Pulse Resp BP Pulse Ox 99.3 F 64 66 H 92/55 L 96 12/26/17 11:43 12/26/17 11:43 12/26/17 11:43 12/26/17 11:43 12/26/17 11:43 - Physical Exam Comments: General: Uncomfortable, frail HEENT: PERRL, EOMI, MMM, voice normal, normal neck ROM, no LAD Cards: RRR, no murmur appreciated Pulm: Comfortable on room air, clear to auscultation anteriorly and laterally Abd: Soft, nontender, nondistended Ext: RUE with AVF, palpable thrill. RLE with 3+ edema, warm to touch, no crepitus or fluctuance. R foot s/p amputation of toes 2-5. R great toe gangrenous, foul smelling, purulent drainage from under toenail and on bandaging. Skin: RLE erythematous to knee, no rashes or lesions noted Neuro: A&Ox3, CN grossly intact, normal speech, motor/sensory grossly intact and symmetric Psych: Mood appropriate to situation ED Treatment Course - LABORATORY CBC & Chemistry Diagram: 12/26/17 12:46 12/26/17 12:31 Medical Decision Making - Medical Decision Making 12/26/17 12:34 Carlos Manuel Browne is a 72yo man with a PMH of ESRD on HD, DM, cardiomyopathy s/p ICD, hypotension, hypothyroidism, a-fib on warfarin, and chronic RLE diabetic foot wound s/p amputation of toes 2-5 who presents with wet gangrene of the right great toe. - Per patient, was told he needed to be admitted for amputation. Given appearance of his toe, will plan for admission. Call placed to Dr Cope; expects to complete amputation during this admission. - Sepsis workup initiated including CBC, CMP, lactate, ESR, CRP, blood cultures. No troponin given lack of symptoms and ESRD - Vanc/zosyn for diabetic foot wound - Morphine IV for pain with IV acetaminophen for pain and elevated temperature - CXR and EKG for admission - Tib/fib xray to evaluate for wound tracking or extensive infection as RLE has significant warmth and swelling, though low suspicion for gas producing infection eg nec fasc as there is no crepitus and the swelling is not rapidly progressing - No IV fluids at this time as Mr Browne just had 4L removed at dialysis this morning 12/26/17 15:07 - Labs reviewed. No leukocytosis and lactate 1.0. Hyponatremia to 128, hypochloremia to 90, INR subtherapeutic at 1.4, Cr 3.2. - Pt became hypotensive to 70's. Giving 250cc bolus and will recheck - Called Dr Lyle, would like Mr Browne admitted to Dr Schulte. - Discussed admission with Dr Schulte; will accept for admission. Per request, ordered scheduled 5mg morphine and 650mg PO acetaminophen q4hr for pain control. - Patient seen by Dr Conklin. Recommending echo as Mr Browne has a known pericardial effusion that may be contributing to his hypotension. Will follow for dialysis while inpatient. Echo ordered. Discussed with Dr Davila. Pilar Bowser PGY1 *DC/Admit/Observation/Transfer Diagnosis at time of Disposition: Diabetic foot ulcer, Gangrene of toe of right foot - Discharge Dispostion Decision to Admit order: Yes - Referrals Referrals: Shreyas Lyle MD [Primary Care Provider] - - Patient Instructions - Post Discharge Activity
[2017-12-26] MEDS ORDERED: morphine CARPU-JECT 4 MG/1 ML DISP.SYRIN IVPUSH ONE ×2 (12:21→12:29)
[2017-12-26] MEDS ORDERED: ACETAMINOPHEN 1000 MG/100 ML VIAL (NON FORMULARY) IVPB ONE (12:21)
[2017-12-26] MEDS ORDERED: VANCOMYCIN 1,000 MG in DEXTROSE 5%-WATER - 250 ML IVPB ONE (12:30)
[2017-12-26] MEDS ORDERED: PIPERACILLIN/TAZOB 3.375 GM 3.375 GM in DEXTROSE 5%-WATER - 50 ML IVPB ONE (12:30)
[2017-12-26] MEDS ORDERED: morphine SULFATE 4 MG/ML VIAL ONE ×2 (12:36→16:14)
[2017-12-26] MEDS ORDERED: MORPHINE SULFATE 2 MG/ML VIAL ONE ×2 (12:36→16:15)
--- NOTE | 2017-12-26 12:38 | PDOC ---
Attending Attestation - Resident Resident Name: Pilar Bowser - ED Attending Attestation I have performed the following: I have examined & evaluated the patient, The case was reviewed & discussed with the resident, I agree w/resident's findings & plan - HPI HPI: 12/26/17 12:34 72-year-old male with multiple medical problems including peripheral vascular disease complicated by toe gangrene requiring amputation, end-stage renal disease on dialysis, now sent from dialysis for evaluation and treatment of right great toe gangrene, seen by Dr. Cope yesterday and requiring operative intervention. Complaining of chills, increasing leg swelling and pain over the last 2-3 days. - Physicial Exam PE: 12/26/17 12:36 Low-grade temp 99, blood pressure 90 systolic after dialysis, otherwise seated comfortably in stretcher speaking full sentences Heart is regular and paced Right lower extremity: There is 2-3+ pitting edema to the knee, tenderness to palpation but no crepitus is palpable. Status post amputation of second through fifth toes, gangrenous great toe with discharge and foul odor - Medical Decision Making 12/26/17 12:37 72-year-old male diabetic, end-stage renal disease, peripheral vascular disease with right great toe gangrene and infection, borderline Sirs and at risk for necrotizing fasciitis. Sepsis protocol initiated Broad-spectrum antibiotics Dr. Cope of surgery consulted Right lower leg x-ray Admission Heart Score/ECG Review #1 ECG reviewed & interpreted by me at: 13:59 12/26/17 14:13 v-paced at 65. no secondary signs of acute ischemic change.
[2017-12-26] MEDS ORDERED: ACETAMINOPHEN INJECTION 100 ML IVPB ONE (12:48)
[2017-12-26] MEDS ORDERED: PIPERACILLIN/TAZOB 3.375 GM 3.375 GM/50 ML BAG IVPB ONE (13:05)
[2017-12-26] MEDS ORDERED: VANCOMYCIN 1 GRAM (PRE-DOCKED) 1,000 MG/250 ML BAG IVPB ONE (13:05)
[2017-12-26 13:15] LABS: VENOUS PC02 52.5 mmHg (38-52); VENOUS PH 7.38 (7.32-7.42); VENOUS PO2 29.8 mmHg (28-48)
[2017-12-26 13:28] LABS: INR 1.43 (0.83-1.09); PROTHROMBIN TIME (PATIENT) 16.9 SEC (9.7-13.0)
[2017-12-26 13:31] LABS: ACTIVATED PTT 36.8 SECONDS (25.2-36.5)
[2017-12-26 13:45] LABS: BASO % 0.3 % (0-2.0); EOS % 0.9 % (0-4.5); HEMATOCRIT 31.7 % (35.4-49); LYMPH % 10.1 % (8-40); MCH 27.5 pg (25.7-33.7); MCHC 31.5 g/dl (32.0-35.9); MEAN CELL VOLUME 87.4 fl (80-96); MEAN PLT VOLUME 9.3 fl (7.5-11.1); MONO % 12.7 % (3.8-10.2); PLATELET COUNT 277 K/MM3 (134-434); RBC 3.63 M/mm3 (4.00-5.60); RDW 19.9 % (11.9-15.9); WHITE BLOOD COUNT 8.9 K/mm3 (4.0-10.0)
[2017-12-26 13:46] LABS: ALBUMIN 2.4 g/dl (3.4-5.0); ALK PHOS 259 U/L (45-117); ANION GAP 8 MMOL/L (8-16); BILIRUBIN,TOTAL 1.2 mg/dL (0.2-1); BLOOD UREA NITROGEN 13 mg/dL (7-18); CALCIUM 8.8 mg/dL (8.5-10.1); CHLORIDE 90 mmol/L (98-107); CO2 30 mmol/L (21-32); CREATININE 3.2 mg/dL (0.55-1.3); GLUCOSE,RANDOM 83 mg/dL (74-106); POTASSIUM 4.3 mmol/L (3.5-5.1); SGPT/ALT 19 U/L (13-61); SODIUM 128 mmol/L (136-145); TOT PROT 8.6 g/dl (6.4-8.2)
[2017-12-26 13:47] LABS: SGOT/AST 69 U/L (15-37)
[2017-12-26] MEDS ORDERED: ACETAMINOPHEN 325 MG TABLET (FP) PO SCH (14:45)
[2017-12-26] MEDS ORDERED: morphine CARPU-JECT 4 MG/1 ML DISP.SYRIN IVPUSH SCH (14:45)
[2017-12-26] MEDS ORDERED: SODIUM CHLORIDE 500 ML IV ONE (14:52)
--- NOTE | 2017-12-26 15:52 | CONSULT ---
Consultation: CONSULT REQUEST: Nephrology Resident HISTORY OF PRESENT ILLNESS: 72yo M with h/o ESRD (T/T/S; performed at [facility]), hypothyroidism, Afib, Cardiomyopathy with ICD implantation, DM, pericardial effusion, and RLE gangrene s/p multiple amputations who presents today with worsening R 1st toe infection and suspicion of gangrene. Pt was seen at the wound care center yesterday and was sent to the ED due to needing an amputation. Pt arrived today after dialysis which he completed a full session and had 4kg removed. Pt currently has pain in his R 1st toe with some fevers and chills. Pt denies any shortness of breath, lightheadedness, chest pain, palpitations, abdominal pain, diarrhea/constipation. PMHx: Afib (Warfarin) ESRD (T/T/S) Cardiomyopathy s/p ICD placement DM Colon Ca s/p resection Previous RLE gangrene of toes 2-5 s/p amputation PSHx: Amputation of RLE toes 2-5 ICD insertion Colon resection SoHx: Tobacco: Alcohol: Drugs: Allergies: NKDA REVIEW OF SYSTEMS: CONSTITUTIONAL: Present: Fever, chills Absent: diaphoresis, generalized weakness, malaise, loss of appetite, weight change HEENT: Absent: rhinorrhea, nasal congestion, throat pain, throat swelling, difficulty swallowing, mouth swelling, ear pain, eye pain, visual changes CARDIOVASCULAR: Present: Peripheral edema Absent: chest pain, syncope, palpitations, irregular heart rate, lightheadedness , peripheral edema RESPIRATORY: Absent: cough, shortness of breath, dyspnea with exertion, orthopnea, wheezing GASTROINTESTINAL: Absent: abdominal pain, abdominal distension, nausea, vomiting, diarrhea, constipation GENITOURINARY: Absent: dysuria, frequency, urgency, hesitancy, hematuria, flank pain MUSCULOSKELETAL: Present: R foot pain Absent: joint swelling, back pain, neck pain SKIN: Absent: rash, itching, pallor NEUROLOGIC: Absent: headache, focal weakness or paresthesias, dizziness, unsteady gait, seizure PSYCHIATRIC: Absent: anxiety, depression PHYSICAL EXAMINATION Vital Signs - 24 hr 12/26/17 12/26/17 12/26/17 11:43 14:53 15:13 Temperature 99.3 F Pulse Rate 64 Pulse Rate [ 68 65 Apical] Respiratory 66 H 18 Rate Blood Pressure 92/55 L Blood Pressure 76/41 L 81/47 L [Left Arm] O2 Sat by Pulse 96 97 Oximetry (%) GENERAL: NAD, awake, alert, and fully oriented, HEENT: NC/AT, EOMI, ONELIA, MMM NECK: No JVD LUNGS: CTA b/l. No wheezes, and no crackles. No accessory muscle use. HEART: RRR, normal S1 and S2 without murmur ABDOMEN: Soft, nontender, not distended, no guarding, no rebound, no masses. EXTREMITIES: R foot toe amputations noted. R 1st toe with darkened area of skin and skin breakdown. No purulent drainage seen. 2+ edema to knees b/l. PSYCHIATRIC: Cooperative. Good eye contact. Appropriate mood and affect. SKIN: Per extremity exam and lower extremities with dry skin changes. No rashes Laboratory Results - last 24 hr 12/26/17 12/26/17 12/26/17 12:31 12:31 12:46 WBC 8.9 RBC 3.63 L Hgb 10.0 L Hct 31.7 L MCV 87.4 MCH 27.5 MCHC 31.5 L RDW 19.9 H Plt Count 277 D MPV 9.3 Absolute Neuts (auto) 6.7 Neutrophils % 76.0 D Lymphocytes % 10.1 D Monocytes % 12.7 H Eosinophils % 0.9 D Basophils % 0.3 Nucleated RBC % 0 ESR PT with INR INR PTT (Actin FS) VBG pH POC VBG pCO2 POC VBG pO2 Mixed VBG HCO3 Sodium 128 L Potassium 4.3 Chloride 90 L Carbon Dioxide 30 Anion Gap 8 BUN 13 Creatinine 3.2 H Creat Clearance w eGFR 19.24 Random Glucose 83 Lactic Acid 1.0 Calcium 8.8 Total Bilirubin 1.2 H AST 69 H ALT 19 Alkaline Phosphatase 259 H C-Reactive Protein 17.1 H Total Protein 8.6 H Albumin 2.4 L Blood Type Antibody Screen 12/26/17 12/26/17 12/26/17 12:46 12:46 12:46 WBC RBC Hgb Hct MCV MCH MCHC RDW Plt Count MPV Absolute Neuts (auto) Neutrophils % Lymphocytes % Monocytes % Eosinophils % Basophils % Nucleated RBC % ESR PT with INR 16.90 H INR 1.43 H PTT (Actin FS) 36.8 H VBG pH 7.38 POC VBG pCO2 52.5 H POC VBG pO2 29.8 Mixed VBG HCO3 29.9 H Sodium Potassium Chloride Carbon Dioxide Anion Gap BUN Creatinine Creat Clearance w eGFR Random Glucose Lactic Acid Calcium Total Bilirubin AST ALT Alkaline Phosphatase C-Reactive Protein Total Protein Albumin Blood Type O POSITIVE Antibody Screen Negative 12/26/17 12:46 WBC RBC Hgb Hct MCV MCH MCHC RDW Plt Count MPV Absolute Neuts (auto) Neutrophils % Lymphocytes % Monocytes % Eosinophils % Basophils % Nucleated RBC % ESR 74 H PT with INR INR PTT (Actin FS) VBG pH POC VBG pCO2 POC VBG pO2 Mixed VBG HCO3 Sodium Potassium Chloride Carbon Dioxide Anion Gap BUN Creatinine Creat Clearance w eGFR Random Glucose Lactic Acid Calcium Total Bilirubin AST ALT Alkaline Phosphatase C-Reactive Protein Total Protein Albumin Blood Type Antibody Screen Active Medications Generic Name Dose Route Start Last Admin Trade Name Freq PRN Reason Stop Dose Admin Acetaminophen 650 mg 12/26/17 14:45 Tylenol - PO Q4H VIRAJ Morphine Sulfate 5 mg 12/26/17 14:45 Morphine Injection - IVPUSH Q4H VIRAJ ASSESSMENT/PLAN: R toe wet gangrene ESRD (T/T/S) Hypotension Normocytic anemia Hyponatremia BP 71/41; lower than pt's baseline --NS 250cc bolus; repeat BP and can bolus with 250cc again if necessary --First normalize BP before further morphine use --Expect hyponatremia to improve with isotonic saline; monitor Na with goal repletion to 138 max in 24hours Pt completed HD today at [facility] per his usual schedule --Will schedule for next dialysis session and will arrange for ABX at this time --Continue epogen during dialysis sessions Will order echocardiogram to assess for pericardial effusion and any RV hyperdynamic motion Rest per primary and ID teams Dispo: Continue current mgmt; pending podiatry/surgical plans Case discussed with Dr. Rubin Pires, DO - IM PGY-2 Visit type - Emergency Visit Emergency Visit: Yes Care time: The patient presented to the Emergency Department on the above date and was hospitalized for further evaluation of their emergent condition. - New Patient This patient is new to me today: Yes Date on this admission: 12/26/17 - Critical Care Critical Care patient: No
--- NOTE | 2017-12-26 16:49 | ECHO ---
Name: IMANBETTYE Exam:Adult Echocardiogram Study Date: 12/26/2017 03:16 PM Age: 72 yrs Reason For Study: Pericardial Effusion Height: 70 in Weight: 196 lb BSA: 2.1 m2 MMode/2D Measurements & Calculations IVSd: 1.2 cm Ao root diam: 2.8 cm LVIDd: 5.4 cm ACS: 1.7 cm LVIDs: 6.0 cm LVPWd: 2.2 cm EDV(Teich): 140.5 ml LVOT diam: 2.2 cm ESV(Teich): 179.3 ml RV S Mitchell: 11.0 cm/sec Doppler Measurements & Calculations TR max mitchell: 246.0 cm/sec Med Peak E' Mitchell: 5.4 cm/sec TR max P.1 mmHg Lat Peak E' Mitchell: 6.3 cm/sec Procedure A two-dimensional transthoracic echocardiogram with color flow and Doppler was performed. A limited t wo- dimensional transthoracic echocardiogram was performed (2D). Left Ventricle The left ventricle is moderately dilated. Left ventricular systolic function is severely reduced. The re is severe global hypokinesis of the left ventricle. Right Ventricle There is a pacemaker lead in the right ventricle. The right ventricle is moderately dilated. The righ t ventricular systolic function is severely reduced. Atria The left atrium is moderately dilated. The right atrium is moderately dilated. Mitral Valve There is mild mitral valve thickening. There is trace mitral regurgitation. Tricuspid Valve The tricuspid valve is not well visualized, but is grossly normal. There is moderate tricuspid regurg itation. Cannot accurately assess RVSP as IVC not visualized. TR peak gradient is 35mmHg. Aortic Valve There is mild aortic valve thickening. No hemodynamically significant valvular aortic stenosis. Mild aortic regurgitation. Pulmonic Valve The pulmonic valve is not well visualized. Great Vessels The aortic root is normal size. Pericardium/Pleura Moderate to large pericardial effusion. No signs of RV diastolic collapse. Respiratory mitral inflow velocities not obtained to accurately assess for tamponade. Interpretation Summary A limited two-dimensional transthoracic echocardiogram was performed (2D). The left ventricle is moderately dilated. Left ventricular systolic function is severely reduced. There is severe global hypokinesis of the left ventricle. The right ventricle is moderately dilated. The right ventricular systolic function is severely reduced. The left atrium is moderately dilated. There is moderate tricuspid regurgitation. No hemodynamically significant valvular aortic stenosis. Mild aortic regurgitation. Moderate to large pericardial effusion. No signs of RV diastolic collapse. Respiratory mitral inflow velocities not obtained to accurately assess for tamponade. MD Edy Pacheco 12/26/2017 04:49 PM
[2017-12-26] MEDS ORDERED: ACETAMINOPHEN 325 MG TABLET (FP) ONE (16:54)
--- NOTE | 2017-12-26 17:09 | PN ---
Teaching Attending Note Name of Resident: Gm Pires (Nephrology) ATTENDING PHYSICIAN STATEMENT I saw and evaluated the patient. I reviewed the resident's note and discussed the case with the resident. I agree with the resident's findings and plan as documented. Renal Pt is a 72 year old male with pmhx of ESRD (TTS), hypotension, pericardial effusion, hypothyroidism, a-fib, CHF, colon cancer, and DM who was sent in for right great toe gangrene. He was sent in for amputation. He complains of pain from the toe. He denies shortness of breath. He had just completed HD as outpt. pmhx esrd chf anemia dm pshx avf nkda social hx denies family hx non contrib Current Medications Generic Name Dose Route Start Last Admin Trade Name Freq PRN Reason Stop Dose Admin Acetaminophen 650 mg 12/26/17 14:45 12/26/17 16:55 Tylenol - PO 650 mg Q4H VIRAJ Administration Morphine Sulfate 5 mg 12/26/17 14:45 12/26/17 16:20 Morphine Injection - IVPUSH 5 mg Q4H VIRAJ Administration Laboratory Tests 12/26/17 12/26/17 12:31 12:46 Hgb 10.0 L Sodium 128 L Potassium 4.3 Chloride 90 L Carbon Dioxide 30 BUN 13 Creatinine 3.2 H Last Vital Signs Temp Pulse Resp BP Pulse Ox 99.3 F 66 20 87/52 L 96 12/26/17 11:43 12/26/17 16:56 12/26/17 16:56 12/26/17 16:56 12/26/17 16:56 cardio s1s2 pulm clear, on nc o2 GI soft skin neg rash ext right great toe gangrene neuro awake and alert psych calm and stable cxr cardiomegaly Impression 1. ESRD 2. hx pericardial effusion 3. hx pneumopericardium 4. hypothyroidism 5. a-fib 6. hypotension 7. hx of colon cancer 8. CHF 9. DM 10. hx of PE 11. CAD 12. right great toe gangrene Plan - next HD on - can give a 250 cc bolus as he is hypotensive - hold off giving morphine - he has history of pericardial effusion, check echo, spoke to ER - renal diet - will follow Dr Conklin
[2017-12-26] MEDS ORDERED: morphine SULFATE 4 MG/ML VIAL IVPUSH PRN (18:13)
[2017-12-26] MEDS: morphine SULFATE 4 MG/ML VIAL IVPUSH PRN (21:08)
[2017-12-26] MEDS ORDERED: MELATONIN 5 MG TABLETS PO ONE (21:12)
[2017-12-26] MEDS ORDERED: PT OWN MED DRAWER 7, Y5N ONE (21:30)
[2017-12-26] MEDS ORDERED: INSULIN (NOVOLOG) ASPART 100 UNITS/ML 10ML VIAL ONE (21:32)
[2017-12-26] MEDS: SENNOSIDES 8.6MG TABLET (FP) PO SCH (21:43)
[2017-12-26] MEDS: INSULIN SLIDING SCALE (NOVOLOG) 1 VIAL SQ SCH (21:43)
[2017-12-26] MEDS: POLYETHYLENE GLYCOL 3350 119 GM BTL PO SCH (21:49)
[2017-12-26] MEDS: SACUBITRIL/VALSARTAN 24 MG-26 MG TABLET PO SCH (22:36)
[2017-12-26] MEDS: LATANOPROST 0.005% OPHTH SOLN 2.5ML BOTTLE OD SCH (22:36)
--- NOTE | 2017-12-26 22:39 | HP ---
Admitting History and Physical - Admission History of Present Illness: 72yo M with h/o ESRD (T/T/S; performed at [facility]), hypothyroidism, Afib, Cardiomyopathy with ICD implantation, DM, pericardial effusion, and RLE gangrene s/p multiple amputations who presents today with worsening R 1st toe infection and suspicion of gangrene. Pt was seen at the wound care center yesterday and was sent to the ED due to needing an amputation. Pt arrived today after dialysis which he completed a full session and had 4kg removed. Pt currently has pain in his R 1st toe with some fevers and chills. Pt denies any shortness of breath, lightheadedness, chest pain, palpitations, abdominal pain, diarrhea/constipation. PMHx: Afib (Warfarin) ESRD (T/T/S) Cardiomyopathy s/p ICD placement DM Colon Ca s/p resection Previous RLE gangrene of toes 2-5 s/p amputation History Source: Patient, Medical Record - Past Medical History PERL DEVELOPER: Yes: Peripheral Neuropathy Cardiovascular: Yes: AFIB Pulmonary: Yes: COPD, Pulmonary Embolus Gastrointestinal: Yes: Cancer (COLON), Other (PATIENT STATES HE WAS RESECTED AND RECEIVED CHEMOTX AND RT AT [facility]) Renal/: Yes: Renal Failure, Hemodialysis Heme/Onc: Yes: Anemia, Cancer (colon -- s/p resection) Musculoskeletal: Yes: Other (RIGHT ANKLE/FOOT PAIN 10/10 WITH RIGHT LATERAL METATARSAL ULCER W DRAINAGE) Endocrine: Yes: Diabetes Mellitus - Past Surgical History Past Surgical History: Yes: AICD, AV Fistula/Graft, Colectomy - Advance Directives Advance Directives: Yes: Health Care Proxy - Smoking History Smoking history: Former smoker Have you smoked in the past 12 months: No If you are a former smoker, when did you quit?: 1981 - Alcohol/Substance Use Hx Alcohol Use: No History of Substance Use: reports: None - Social History ADL: Support Services History of Recent Travel: No Home Medications - Allergies Allergies/Adverse Reactions: Allergies Allergy/AdvReac Type Severity Reaction Status Date / Time No Known Drug Allergies Allergy Verified 09/11/17 09:55 - Home Medications Home Medications: Ambulatory Orders Clopidogrel Bisulfate [Plavix -] 75 mg PO DAILY 09/11/17 Glucosamine Sulfate Dipot Chlr [Glucosamine] 500 mg PO DAILY 09/11/17 Levothyroxine [Synthroid -] 75 mcg PO DAILY 09/11/17 Melatonin 5 mg PO HS PRN 09/11/17 Oxycodone HCl/Acetaminophen [Percocet 5-325 mg Tablet] 1 tab PO Q8H PRN Sacubitril/Valsartan [Entresto 24 mg-26 mg Tablet] 1 each PO BID 09/11/17 Sennosides [Senna -] 2 tab PO HS 09/11/17 Thiamine HCl [B-1] 100 mg PO DAILY 09/11/17 Acetaminophen [Tylenol .Regular Strength -] 325 mg PO Q8H PRN tablet 09/18/17 Metoprolol Succinate [Toprol XL -] 12.5 mg PO DAILY tab.sr.24h 09/18/17 Sitagliptin Phosphate [Januvia -] 25 mg PO 0700 tab 09/18/17 Warfarin Na [Coumadin -] 6 mg PO DAILY@1800 tablet 09/18/17 Insulin Aspart [Novolog] 100 unit SQ BID 10/04/17 Bacitracin - [Bacitracin Topical Ointment -] 500 units TP BID 11/29/17 Latanoprost 0.005% Eye Drops [Xalatan 0.005% Eye Drops -] 1 drop HS 11/29/17 Vitamin B Comp W-C [Nephro-Fer -] 0.8 mg PO DAILY 11/29/17 Polyethylene Glycol 3350 [Miralax (For Daily Use) -] 17 gm PO BID 12/26/17 Physical Examination Vital Signs: Vital Signs Temperature 98.8 F 12/26/17 14:42 Pulse Rate 63 12/26/17 18:25 Respiratory Rate 18 12/26/17 18:25 Blood Pressure 88/54 L 12/26/17 19:46 O2 Sat by Pulse Oximetry (%) 98 12/26/17 19:57 Labs: CBC, BMP 12/26/17 12:46 12/26/17 12:31 Problem List - Problems (1) Gangrene of toe of right foot Code(s): I96 - GANGRENE, NOT ELSEWHERE CLASSIFIED (2) Diabetic foot ulcer Code(s): E11.621 - TYPE 2 DIABETES MELLITUS WITH FOOT ULCER; L97.509 - NON- PRESSURE CHRONIC ULCER OTH PRT UNSP FOOT W UNSP SEVERITY (3) Amputated toe of right foot Code(s): Z89.421 - ACQUIRED ABSENCE OF OTHER RIGHT TOE(S) (4) Atrial fibrillation Code(s): I48.91 - UNSPECIFIED ATRIAL FIBRILLATION Qualifiers: Atrial fibrillation type: permanent Qualified Code(s): I48.2 - Chronic atrial fibrillation (5) Cardiomyopathy Code(s): I42.9 - CARDIOMYOPATHY, UNSPECIFIED Qualifiers: Cardiomyopathy type: unspecified Qualified Code(s): I42.9 - Cardiomyopathy , unspecified (6) Chronic kidney disease (CKD), stage V Code(s): N18.5 - CHRONIC KIDNEY DISEASE, STAGE 5 (7) Chronic anticoagulation Code(s): Z79.01 - AUTOMATED EQUIPMENT ENGINEER TECHNICIAN (CURRENT) USE OF 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 (8) 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 Code(s): E11.9 - TYPE 2 DIABETES MELLITUS WITHOUT COMPLICATIONS Qualifiers: 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 type: type 2 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 long-term insulin use: with long-term use 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 complication detail: with peripheral angiopathy with gangrene (9) ESRD (end stage renal disease) Code(s): N18.6 - END STAGE RENAL DISEASE (10) Chronic kidney disease on chronic dialysis Code(s): N18.6 - END STAGE RENAL DISEASE; Z99.2 - DEPENDENCE ON RENAL DIALYSIS (11) HTN (hypertension) Code(s): I10 - ESSENTIAL (PRIMARY) HYPERTENSION Qualifiers: Hypertension type: essential hypertension Qualified Code(s): I10 - Essential (primary) hypertension (12) ICD (implantable cardioverter-defibrillator) in place Code(s): Z95.810 - PRESENCE OF AUTOMATIC (IMPLANTABLE) CARDIAC DEFIBRILLATOR (13) Osteomyelitis Code(s): M86.9 - OSTEOMYELITIS, UNSPECIFIED Qualifiers: Osteomyelitis type: other Osteomyelitis location: foot Laterality: right Qualified Code(s): M86.8X7 - Other osteomyelitis, ankle and foot (14) Status post peripheral artery angioplasty Code(s): Z98.62 - PERIPHERAL VASCULAR ANGIOPLASTY STATUS Assessment/Plan Assmt #right great toe gangrene - #r/o osteomyelitis - elevated ESR /crp /alk phos #hyponatremia ( Na 128) #PVD #CKD5 on chronic HD #DM on insulin / # a fib -- a/c on coumadin #CAD #Cardiomyopathy s/p ICD #hypothyroid #HF -- echo ?? -- #anemia of chronic disease # hx of pericardial effusion hx of colon ca s/p resection hx of PE - on a/c hx of pneumopericardium
[2017-12-27] MEDS: morphine SULFATE 4 MG/ML VIAL IVPUSH PRN ×3 (05:29→15:36)
[2017-12-27] MEDS: INSULIN SLIDING SCALE (NOVOLOG) 1 VIAL SQ SCH ×4 (05:59→22:04)
[2017-12-27] MEDS: sitaGLIPtin PHOSPHATE 25 MG TABLET (FP) PO SCH (06:00)
[2017-12-27] MEDS: LEVOTHYROXINE NA 75 MCG TABLET (FP) PO SCH (06:00)
[2017-12-27 07:57] LABS: BASO % 0.4 % (0-2.0); EOS % 0.7 % (0-4.5); HEMATOCRIT 28.2 % (35.4-49); HEMOGLOBIN 8.8 GM/dL (11.7-16.9); LYMPH % 9.3 % (8-40); MCH 27.5 pg (25.7-33.7); MCHC 31.3 g/dl (32.0-35.9); MEAN CELL VOLUME 87.9 fl (80-96); MEAN PLT VOLUME 9.1 fl (7.5-11.1); MONO % 16.1 % (3.8-10.2); NEUT % 73.5 % (42.8-82.8); PLATELET COUNT 231 K/MM3 (134-434); RDW 18.9 % (11.9-15.9)
[2017-12-27 09:04] LABS: INR 1.54 (0.83-1.09); PROTHROMBIN TIME (PATIENT) 18.3 SEC (9.7-13.0)
[2017-12-27 09:06] LABS: ALBUMIN 2.1 g/dl (3.4-5.0); ALK PHOS 301 U/L (45-117); ANION GAP 12 MMOL/L (8-16); BLOOD UREA NITROGEN 17 mg/dL (7-18); CALCIUM 8.3 mg/dL (8.5-10.1); CHLORIDE 90 mmol/L (98-107); CHOLESTEROL 141 mg/dL (50-200); CO2 27 mmol/L (21-32); CREATININE 4.1 mg/dL (0.55-1.3); GLUCOSE,RANDOM 95 mg/dL (74-106); HDL CHOLESTEROL 36 mg/dL (40-60); PHOSPHOROUS 2.6 mg/dL (2.5-4.9); POTASSIUM 3.2 mmol/L (3.5-5.1); SGOT/AST 38 U/L (15-37); SGPT/ALT 15 U/L (13-61); SODIUM 129 mmol/L (136-145); TOT PROT 7.4 g/dl (6.4-8.2); TRIGLYCERIDES 98 mg/dL (0-150)
[2017-12-27] MEDS: metoPROLOL SUCCINATE 25 MG TAB.SR.24H (FP) PO SCH (09:46)
[2017-12-27] MEDS: THIAMINE HCL 100 MG TABLET (FP) PO SCH (09:51)
[2017-12-27] MEDS: VITAMIN B COMP W-C 1 EA TABLET PO SCH (09:51)
[2017-12-27] MEDS: POLYETHYLENE GLYCOL 3350 119 GM BTL PO SCH ×2 (09:51→21:56)
[2017-12-27] MEDS: SACUBITRIL/VALSARTAN 24 MG-26 MG TABLET PO SCH ×2 (09:52→23:05)
[2017-12-27] MEDS ORDERED: SODIUM CHLORIDE 250 ML IV PRN (10:00)
[2017-12-27] MEDS ORDERED: ENOXAPARIN NA (PORCINE) 60 MG/0.6 ML DISP.SYRIN SQ SCH (11:30)
--- NOTE | 2017-12-27 11:32 | PN ---
Progress Note (short form) - Note Progress Note: patient seen and examined in room provides adequate hx Cardio followed by Dr Ghassan Bean ( patient reports EF 25%) last seen by cardiology about 3 months ago reports extensive attempts to heal right great toe -- unsuccessful has been followed by vascular and podiatry Right leg angioplasty done 1 yr ago Vital Signs Period Temp Pulse Resp BP Sys/Yoon Pulse Ox Last 24 Hr 97.9 F-99.3 F 63-69 18-66 73-98/40-57 95-100 neck supple heart irreg S1/S2 +M2/6 lungs clear bilat abd - soft inc hernia midline Ext - right A-V fistula Forearm - HD access + bruit right leg swollen / tender calf -- foot dressing in place foul smelling Active Medications Acetaminophen (Tylenol -) 325 mg PO Q8H PRN PRN Reason: PAIN SCALE 6-10 Enoxaparin Sodium (Lovenox -) 60 mg SQ Q12H [facility] Insulin Aspart (Novolog Vial Sliding Scale -) 1 vial SQ ACHS [facility]; Protocol Last Admin: 12/27/17 11:27 Dose: Not Given Latanoprost (Xalatan 0.005% Eye Drops -) 1 drop OD HS [facility] Last Admin: 12/26/17 22:36 Dose: 1 drop Levothyroxine Sodium (Synthroid -) 75 mcg PO 0700 [facility] Last Admin: 12/27/17 06:00 Dose: 75 mcg Metoprolol Succinate (Toprol Xl -) 12.5 mg PO DAILY [facility] Last Admin: 12/27/17 09:46 Dose: Not Given Morphine Sulfate (Morphine Sulfate) 5 mg IVPUSH Q4H PRN PRN Reason: PAIN 6-10; IF TYLENOL NT WORK Last Admin: 12/27/17 09:47 Dose: 5 mg Multivit/Ca Carb/B Cmplx/FA/Prenat (Nephro-Fer -) 1 tablet PO DAILY [facility] Last Admin: 12/27/17 09:51 Dose: 1 tablet Polyethylene Glycol (Miralax (For Daily Use) -) 17 gm PO BID [facility] Last Admin: 12/27/17 09:51 Dose: 17 gm Sacubitril/Valsartan (Entresto 24 Mg-26 Mg Tablet) 1 tab PO BID [facility] Last Admin: 12/27/17 09:52 Dose: 1 tab Senna (Senna -) 2 tab PO HS [facility] Last Admin: 12/26/17 21:43 Dose: 2 tab Sitagliptin Phosphate (Januvia -) 25 mg PO 0700 [facility] Last Admin: 12/27/17 06:00 Dose: 25 mg Thiamine HCl (Vitamin B1 -) 100 mg PO DAILY [facility] Last Admin: 12/27/17 09:51 Dose: 100 mg Assessment/Plan Assmt # hypotension s/p fluid bolus may need to holf HTN meds # right great toe gangrene - Abx per ID pain management surgical eval cardiology clearance # r/o osteomyelitis - elevated ESR /crp /alk phos # hyponatremia ( Na 128) # PVD s/p angioplasty bilat LE right LE done 1 yr ago await vascular opinion toe amputation vs BKA discussed with patient # CKD5 on chronic HD TTS --HD per renal # DM on insulin / sliding scale # a fib -- a/c on coumadin - on hold started Lovenox pending surgical eval #CAD # Cardiomyopathy s/p ICD # hypothyroid TSH # HFrEF Hx of EF 25% # anemia of chronic disease # hx of pericardial effusion echo ordered - Cardio evaluation - seen previously by Dr Plasencia # hx of colon ca s/p resection # hx of PE - on a/c # hx of pneumopericardium Problem List - Problems (1) Gangrene of toe of right foot Code(s): I96 - GANGRENE, NOT ELSEWHERE CLASSIFIED (2) Diabetic foot ulcer Code(s): E11.621 - TYPE 2 DIABETES MELLITUS WITH FOOT ULCER; L97.509 - NON- PRESSURE CHRONIC ULCER OTH PRT UNSP FOOT W UNSP SEVERITY (3) Amputated toe of right foot Code(s): Z89.421 - ACQUIRED ABSENCE OF OTHER RIGHT TOE(S) (4) Atrial fibrillation Code(s): I48.91 - UNSPECIFIED ATRIAL FIBRILLATION Qualifiers: Atrial fibrillation type: permanent Qualified Code(s): I48.2 - Chronic atrial fibrillation (5) Cardiomyopathy Code(s): I42.9 - CARDIOMYOPATHY, UNSPECIFIED Qualifiers: Cardiomyopathy type: unspecified Qualified Code(s): I42.9 - Cardiomyopathy , unspecified (6) Chronic kidney disease (CKD), stage V Code(s): N18.5 - CHRONIC KIDNEY DISEASE, STAGE 5 (7) Chronic anticoagulation Code(s): Z79.01 - SHIP SCALER (CURRENT) USE OF 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 (8) 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 Code(s): E11.9 - TYPE 2 DIABETES MELLITUS WITHOUT COMPLICATIONS Qualifiers: 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 type: type 2 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 skilled nursing insulin use: with intermediate school teacher use 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 complication detail: with peripheral angiopathy with gangrene (9) ESRD (end stage renal disease) Code(s): N18.6 - END STAGE RENAL DISEASE (10) Chronic kidney disease on chronic dialysis Code(s): N18.6 - END STAGE RENAL DISEASE; Z99.2 - DEPENDENCE ON RENAL DIALYSIS (11) HTN (hypertension) Code(s): I10 - ESSENTIAL (PRIMARY) HYPERTENSION Qualifiers: Hypertension type: essential hypertension Qualified Code(s): I10 - Essential (primary) hypertension (12) ICD (implantable cardioverter-defibrillator) in place Code(s): Z95.810 - PRESENCE OF AUTOMATIC (IMPLANTABLE) CARDIAC DEFIBRILLATOR (13) Osteomyelitis Code(s): M86.9 - OSTEOMYELITIS, UNSPECIFIED Qualifiers: Osteomyelitis type: other Osteomyelitis location: foot Laterality: right Qualified Code(s): M86.8X7 - Other osteomyelitis, ankle and foot (14) Status post peripheral artery angioplasty Code(s): Z98.62 - PERIPHERAL VASCULAR ANGIOPLASTY STATUS
--- NOTE | 2017-12-27 11:33 | EKG ---
Test Reason : Blood Pressure : / mmHG Vent. Rate : 065 BPM Atrial Rate : 065 BPM P-R Int : 000 ms QRS Dur : 134 ms QT Int : 494 ms P-R-T Axes : 221 -57 106 degrees QTc Int : 513 ms Ventricular-paced rhythm Biventricular pacemaker detected ABNORMAL ECG WHEN COMPARED WITH ECG OF 03-OCT-2017 16:13, NO SIGNIFICANT CHANGE WAS FOUND Confirmed by LOPEZ LAGUERRE MD ([id number]) on 12/27/2017 11:32:50 AM Referred By: Confirmed By:LOPEZ LAGUERRE MD
--- NOTE | 2017-12-27 11:34 | CON.CARD ---
Consult Consult Specialty:: Cardiology Referred by:: Rehana Schulte MD Reason for Consultation:: Pre-operative CV evaluation - History of Present Illness Chief Complaint: Right diabetic foot History of Present Illness: Patient is a 72 year old male with underlying history of ESRD on HD (es, Th , Sat), dilated cardiomyopathy with severe LV systolic dysfunctin, s/p ICD, DM, HTN, AF, hypothyroidism PAD with gangrene right forefoot post right tibial revacularization, debridement of bone and soft tissue with transmetatarsal amputation presented for worsening R 1st toe infection and suspicion of gangrene despite HBO2 and wound care treatments. Echocardiography in July and September 12, 2017 revealed stable moderate pericardial effusion without evidence of tamponade and severely reduced LV systolic function. He denies chest pain, SOB or palpitations. He denies paroxysmal nocturnal dyspnea or orthopnea. He denies fever or chills. Senior Economist: Dr. 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: Peripheral Neuropathy Cardio/Vascular: Yes: AFIB Pulmonary: Yes: COPD, Pulmonary Embolus Gastrointestinal: Yes: Cancer (COLON), Other (PATIENT STATES HE WAS RESECTED AND RECEIVED CHEMOTX AND RT AT [facility]) Renal/: Yes: Renal Failure, Hemodialysis Musculoskeletal: Yes: Other (RIGHT ANKLE/FOOT PAIN 10/10 WITH RIGHT LATERAL METATARSAL ULCER W DRAINAGE) Endocrine: Yes: Diabetes Mellitus - Past Surgical History Past Surgical History: Yes: AICD, AV Fistula/Graft, Colectomy - Alcohol/Substance Use Hx Alcohol Use: No History of Substance Use: reports: None - Smoking History Smoking history: Former smoker Have you smoked in the past 12 months: No If you are a former smoker, when did you quit?: 1981 - Social History ADL: Support Services History of Recent Travel: No Home Medications - Allergies Allergies/Adverse Reactions: Allergies Allergy/AdvReac Type Severity Reaction Status Date / Time No Known Drug Allergies Allergy Verified 09/11/17 09:55 - Home Medications Home Medications: Ambulatory Orders Clopidogrel Bisulfate [Plavix -] 75 mg PO DAILY 09/11/17 Glucosamine Sulfate Dipot Chlr [Glucosamine] 500 mg PO DAILY 09/11/17 Levothyroxine [Synthroid -] 75 mcg PO DAILY 09/11/17 Melatonin 5 mg PO HS PRN 09/11/17 Oxycodone HCl/Acetaminophen [Percocet 5-325 mg Tablet] 1 tab PO Q8H PRN Sacubitril/Valsartan [Entresto 24 mg-26 mg Tablet] 1 each PO BID 09/11/17 Sennosides [Senna -] 2 tab PO HS 09/11/17 Thiamine HCl [B-1] 100 mg PO DAILY 09/11/17 Acetaminophen [Tylenol .Regular Strength -] 325 mg PO Q8H PRN tablet 09/18/17 Metoprolol Succinate [Toprol XL -] 12.5 mg PO DAILY tab.sr.24h 09/18/17 Sitagliptin Phosphate [Januvia -] 25 mg PO 0700 tab 09/18/17 Warfarin Na [Coumadin -] 6 mg PO DAILY@1800 tablet 09/18/17 Insulin Aspart [Novolog] 100 unit SQ BID 10/04/17 Bacitracin - [Bacitracin Topical Ointment -] 500 units TP BID 11/29/17 Latanoprost 0.005% Eye Drops [Xalatan 0.005% Eye Drops -] 1 drop HS 11/29/17 Vitamin B Comp W-C [Nephro-Fer -] 0.8 mg PO DAILY 11/29/17 Polyethylene Glycol 3350 [Miralax (For Daily Use) -] 17 gm PO BID 12/26/17 Review of Systems - Review of Systems Musculoskeletal: reports: Extremity Pain Vital Signs: Vital Signs Temperature 97.9 F 12/27/17 08:55 Pulse Rate 69 12/27/17 08:55 Respiratory Rate 20 12/27/17 08:55 Blood Pressure 82/44 L 12/27/17 08:55 O2 Sat by Pulse Oximetry (%) 100 12/27/17 09:00 Constitutional: Yes: No Distress, Calm, Thin Neck: Yes: Supple Respiratory: Yes: Regular, Diminished, On Nasal O2 Gastrointestinal: Yes: Normal Bowel Sounds, Soft Cardiovascular: Yes: Regular Rate and Rhythm JVD: No Carotid Bruit: No Heart Sounds: Yes: S1, S2 Murmur: Yes: Systolic Murmur, Grade 1 Extremities: Yes: Amputation Edema: Yes Edema: RLE: 1+ - Other Data Labs, Other Data: CBC, BMP 12/27/17 06:30 12/27/17 06:30 INR, PTT INR 1.54 (0.83-1.09) H 12/27/17 06:30 Bi-V paced @ 65 Ejection Fraction %: LVEF < 40 % Imaging - Results Chest X-ray: Report Reviewed (NAD) Problem List - Problems (1) Chronic kidney disease on chronic dialysis Code(s): N18.6 - END STAGE RENAL DISEASE; Z99.2 - DEPENDENCE ON RENAL DIALYSIS (2) Gangrene of toe of right foot Code(s): I96 - GANGRENE, NOT ELSEWHERE CLASSIFIED (3) Amputated toe of right foot Code(s): Z89.421 - ACQUIRED ABSENCE OF OTHER RIGHT TOE(S) (4) Atrial fibrillation Code(s): I48.91 - UNSPECIFIED ATRIAL FIBRILLATION Qualifiers: Atrial fibrillation type: permanent Qualified Code(s): I48.2 - Chronic atrial fibrillation (5) Cardiomyopathy Code(s): I42.9 - CARDIOMYOPATHY, UNSPECIFIED Qualifiers: Cardiomyopathy type: unspecified Qualified Code(s): I42.9 - Cardiomyopathy , unspecified (6) Chronic anticoagulation Code(s): Z79.01 - AUTOMOTIVE FINANCE MANAGER (CURRENT) USE OF 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 (7) 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 Code(s): E11.9 - TYPE 2 DIABETES MELLITUS WITHOUT COMPLICATIONS Qualifiers: 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 type: type 2 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 terminal operations manager insulin use: with terminal operations manager use 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 complication detail: with peripheral angiopathy with gangrene (8) ESRD (end stage renal disease) Code(s): N18.6 - END STAGE RENAL DISEASE (9) Hypothyroid Code(s): E03.9 - HYPOTHYROIDISM, UNSPECIFIED Qualifiers: Hypothyroidism type: unspecified Qualified Code(s): E03.9 - Hypothyroidism , unspecified (10) ICD (implantable cardioverter-defibrillator) in place Code(s): Z95.810 - PRESENCE OF AUTOMATIC (IMPLANTABLE) CARDIAC DEFIBRILLATOR (11) Open wound of foot Code(s): S91.309A - UNSPECIFIED OPEN WOUND, UNSPECIFIED FOOT, INITIAL ENCOUNTER Qualifiers: Encounter type: subsequent encounter Laterality: right Qualified Code(s) : S91.301D - Unspecified open wound, right foot, subsequent encounter (12) Pericardial effusion Code(s): I31.3 - PERICARDIAL EFFUSION (NONINFLAMMATORY) (13) Status post peripheral artery angioplasty Code(s): Z98.62 - PERIPHERAL VASCULAR ANGIOPLASTY STATUS (14) Pre-operative cardiovascular examination Code(s): Z01.810 - ENCOUNTER FOR PREPROCEDURAL CARDIOVASCULAR EXAMINATION Assessment/Plan 09/12/2017 Echo: Moderate pericardial effusion, no tamponade, mildly dilated LV with severely decreased LV fxn, mild-mod dilated RV with severely decreased RV fxn, mod-severe MUKUL, mild MR, mild-mod TR, mild AR 10/05/2017 Echo: Moderately dilated with severely decreased LV fxn, RV dilated with severely decreased RV fxn, mod LAE, mild MR, mod TR, mild AR, mod pericardial effusion similar to previous 1. Peripheral artery disease and gangrene right forefoot post right tibial revacularization and debridement of bone and soft tissue with transmetatarsal amputation, wound vac and HBO2 planned for right BKA - pre-op CV evaluation 2. Ischemic dilated cardiomyopathy with chronic class I-II NYHA classification LV failure, compensated/euvolemic, post prophylactic ICD implant 3. CAD post MA with evidence of demand ischemic injury angina pectoris, clinically stable 4. Persistent atrial fibrillation [id number] score of 3-4 on Coumadin with subtherapeutic INR 5. Pericardial effusion probably uremic pericarditis, moderate in severity/ unchanged 6. 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 7. Hypothyroidism 8. History of PTE 9. ESRD on HD 10. History of colon cancer PLAN: 1. Empiric antibiotics course and analgesia as needed per the primary team 2. HD as per renal service and replete K 3. Hold Plavix 75 qd and coumadin and start Heparin gtt pending BKA with close monitoring of CBC 4. Continue Toprol XL 12.5 qd and titrate as hemodynamics permit/tolerate 5. Continue Entresto 24/26 bid and titrate as hemodynamics permit/tolerate 6. Consider Jardiance for decreased CV event risk 7. Given absence of symptoms of acute coronary syndrome, decompensated CHF or malignant arrhythmia, may proceed with right BKA from CV-standpoint once INR is acceptable. May have to hold Toprol XL and Entresto day of surgery for hemodynamic reasons, thank you for consultative opportunity. Senior Economist: Dr. Ghassan Durant
[2017-12-27] MEDS: ACETAMINOPHEN 325 MG TABLET (FP) PO PRN (11:47)
[2017-12-27] MEDS ORDERED: morphine SULFATE 4 MG/ML VIAL IVPB ONE (11:50)
--- NOTE | 2017-12-27 12:09 | CON.ID ---
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: Peripheral Neuropathy Cardio/Vascular: Yes: AFIB Pulmonary: Yes: COPD, Pulmonary Embolus Gastrointestinal: Yes: Cancer (COLON), Other (PATIENT STATES HE WAS RESECTED AND RECEIVED CHEMOTX AND RT AT [facility]) Renal/: Yes: Renal Failure, Hemodialysis Musculoskeletal: Yes: Other (RIGHT ANKLE/FOOT PAIN 10/10 WITH RIGHT LATERAL METATARSAL ULCER W DRAINAGE) Endocrine: Yes: Diabetes Mellitus - Past Surgical History Past Surgical History: Yes: AICD, AV Fistula/Graft, Colectomy - Alcohol/Substance Use Hx Alcohol Use: No History of Substance Use: reports: None - Smoking History Smoking history: Former smoker Have you smoked in the past 12 months: No If you are a former smoker, when did you quit?: 1981 - Social History ADL: Support Services History of Recent Travel: No Home Medications - Allergies Allergies/Adverse Reactions: Allergies Allergy/AdvReac Type Severity Reaction Status Date / Time No Known Drug Allergies Allergy Verified 09/11/17 09:55 - Home Medications Home Medications: Ambulatory Orders Clopidogrel Bisulfate [Plavix -] 75 mg PO DAILY 09/11/17 Glucosamine Sulfate Dipot Chlr [Glucosamine] 500 mg PO DAILY 09/11/17 Levothyroxine [Synthroid -] 75 mcg PO DAILY 09/11/17 Melatonin 5 mg PO HS PRN 09/11/17 Oxycodone HCl/Acetaminophen [Percocet 5-325 mg Tablet] 1 tab PO Q8H PRN Sacubitril/Valsartan [Entresto 24 mg-26 mg Tablet] 1 each PO BID 09/11/17 Sennosides [Senna -] 2 tab PO HS 09/11/17 Thiamine HCl [B-1] 100 mg PO DAILY 09/11/17 Acetaminophen [Tylenol .Regular Strength -] 325 mg PO Q8H PRN tablet 09/18/17 Metoprolol Succinate [Toprol XL -] 12.5 mg PO DAILY tab.sr.24h 09/18/17 Sitagliptin Phosphate [Januvia -] 25 mg PO 0700 tab 09/18/17 Warfarin Na [Coumadin -] 6 mg PO DAILY@1800 tablet 09/18/17 Insulin Aspart [Novolog] 100 unit SQ BID 10/04/17 Bacitracin - [Bacitracin Topical Ointment -] 500 units TP BID 11/29/17 Latanoprost 0.005% Eye Drops [Xalatan 0.005% Eye Drops -] 1 drop HS 11/29/17 Vitamin B Comp W-C [Nephro-Fer -] 0.8 mg PO DAILY 11/29/17 Polyethylene Glycol 3350 [Miralax (For Daily Use) -] 17 gm PO BID 12/26/17 Physical Exam Vital Signs: Vital Signs Temperature 97.9 F 12/27/17 08:55 Pulse Rate 66 12/27/17 11:55 Respiratory Rate 20 12/27/17 11:55 Blood Pressure 98/47 L 12/27/17 11:55 O2 Sat by Pulse Oximetry (%) 100 12/27/17 09:00 Labs: CBC, BMP 12/27/17 06:30 12/27/17 06:30
[2017-12-27] MEDS ORDERED: PIPERACILLIN/TAZOBACTAM 2.25 GM VIAL IVPB ONE ×2 (12:30→17:16)
[2017-12-27] MEDS ORDERED: DEXTROSE 5%-WATER - 50 ML IVPB ONE ×2 (12:30→17:16)
--- NOTE | 2017-12-27 12:43 | PN ---
Progress Note, Physician History of Present Illness: Pt seen and examined at bedside. He is awake and alert. He denies shortness of breath. - Current Medication List Current Medications: Active Medications Acetaminophen (Tylenol -) 325 mg PO Q8H PRN PRN Reason: PAIN SCALE 6-10 Last Admin: 12/27/17 11:47 Dose: 325 mg Heparin Sodium (Porcine) (Heparin -) 1,000 unit IVPUSH PRN PRN PRN Reason: Heparin Heparin Sodium (Porcine) (Heparin -) 5,000 unit IVPUSH PRN PRN PRN Reason: Heparin HEPARIN SOD,PORK IN 0.45% NACL (Heparin-1/2ns 25,000 Units/500) 25,000 units in 500 mls @ 20 mls/hr IVPB TITR [facility]; Protocol Clindamycin Phosphate (Cleocin 300 Mg Premix Ivpb) 300 mg in 50 mls @ 100 mls/ hr IVPB Q8H-IV [facility]; Protocol Piperacillin Sod/Tazobactam (Sod 2.25 gm/ Dextrose) 50 mls @ 100 mls/hr IVPB Q8H-IV [facility]; Protocol Insulin Aspart (Novolog Vial Sliding Scale -) 1 vial SQ ACHS [facility]; Protocol Last Admin: 12/27/17 11:27 Dose: Not Given Latanoprost (Xalatan 0.005% Eye Drops -) 1 drop OD HS [facility] Last Admin: 12/26/17 22:36 Dose: 1 drop Levothyroxine Sodium (Synthroid -) 75 mcg PO 0700 [facility] Last Admin: 12/27/17 06:00 Dose: 75 mcg Metoprolol Succinate (Toprol Xl -) 12.5 mg PO DAILY [facility] Last Admin: 12/27/17 09:46 Dose: Not Given Morphine Sulfate (Morphine Sulfate) 5 mg IVPUSH Q4H PRN PRN Reason: PAIN 6-10; IF TYLENOL NT WORK Last Admin: 12/27/17 09:47 Dose: 5 mg Multivit/Ca Carb/B Cmplx/FA/Prenat (Nephro-Fer -) 1 tablet PO DAILY [facility] Last Admin: 12/27/17 09:51 Dose: 1 tablet Polyethylene Glycol (Miralax (For Daily Use) -) 17 gm PO BID [facility] Last Admin: 12/27/17 09:51 Dose: 17 gm Sacubitril/Valsartan (Entresto 24 Mg-26 Mg Tablet) 1 tab PO BID [facility] Last Admin: 12/27/17 09:52 Dose: 1 tab Senna (Senna -) 2 tab PO HS [facility] Last Admin: 12/26/17 21:43 Dose: 2 tab Sitagliptin Phosphate (Januvia -) 25 mg PO 0700 [facility] Last Admin: 12/27/17 06:00 Dose: 25 mg Thiamine HCl (Vitamin B1 -) 100 mg PO DAILY [facility] Last Admin: 12/27/17 09:51 Dose: 100 mg - Objective Vital Signs: Vital Signs Temperature 97.9 F 12/27/17 08:55 Pulse Rate 66 12/27/17 11:55 Respiratory Rate 20 12/27/17 11:55 Blood Pressure 98/47 L 12/27/17 11:55 O2 Sat by Pulse Oximetry (%) 100 12/27/17 09:00 Constitutional: Yes: Calm Eyes: Yes: Conjunctiva Clear HENT: Yes: Atraumatic Neck: Yes: Supple Cardiovascular: Yes: S1, S2 Respiratory: Yes: On Nasal O2 Gastrointestinal: Yes: Soft Genitourinary: Yes: WNL Musculoskeletal: Yes: WNL Edema: Yes Edema: LLE: 2+, RLE: 2+ Neurological: Yes: Oriented Psychiatric: Yes: Oriented Labs: CBC, BMP 12/27/17 06:30 12/27/17 06:30 INR, PTT INR 1.54 (0.83-1.09) H 12/27/17 06:30 Problem List - Problems (1) Gangrene of toe of right foot Code(s): I96 - GANGRENE, NOT ELSEWHERE CLASSIFIED (2) ESRD (end stage renal disease) Code(s): N18.6 - END STAGE RENAL DISEASE Assessment/Plan Current Medications Generic Name Dose Route Start Last Admin Trade Name Freq PRN Reason Stop Dose Admin Acetaminophen 325 mg 12/26/17 18:04 12/27/17 11:47 Tylenol - PO 325 mg Q8H PRN Administration PAIN SCALE 6-10 Heparin Sodium (Porcine) 1,000 unit 12/27/17 11:58 Heparin - IVPUSH PRN PRN Heparin Heparin Sodium (Porcine) 5,000 unit 12/27/17 11:58 Heparin - IVPUSH PRN PRN Heparin HEPARIN SOD,PORK IN 0.45% NACL 25,000 units in 500 mls @ 20 mls/hr 12/27/17 12 :00 Heparin-1/2ns 25,000 Units/500 IVPB TITR [facility] Protocol 1,000 UNITS/HR Clindamycin Phosphate 300 mg in 50 mls @ 100 mls/hr 12/27/17 12:45 Cleocin 300 Mg Premix Ivpb IVPB Q8H-IV [facility] Protocol Piperacillin Sod/Tazobactam 50 mls @ 100 mls/hr 12/27/17 12:45 Sod 2.25 gm/ Dextrose IVPB Q8H-IV [facility] Protocol Insulin Aspart 1 vial 12/26/17 22:00 12/27/17 11:27 Novolog Vial Sliding Scale - SQ Not Given ACHS [facility] Protocol Latanoprost 1 drop 12/26/17 22:00 12/26/17 22:36 Xalatan 0.005% Eye Drops - OD 1 drop HS [facility] Administration Levothyroxine Sodium 75 mcg 12/27/17 07:00 12/27/17 06:00 Synthroid - PO 75 mcg 0700 [facility] Administration Metoprolol Succinate 12.5 mg 12/27/17 10:00 12/27/17 09:46 Toprol Xl - PO Not Given DAILY [facility] Morphine Sulfate 5 mg 12/26/17 18:16 12/27/17 09:47 Morphine Sulfate IVPUSH 5 mg Q4H PRN Administration PAIN 6-10; IF TYLENOL NT WORK Multivit/Ca Carb/B Cmplx/FA/Prenat 1 tablet 12/27/17 10:00 12/27/17 09:51 Nephro-Fer - PO 1 tablet DAILY [facility] Administration Polyethylene Glycol 17 gm 12/26/17 22:00 12/27/17 09:51 Miralax (For Daily Use) - PO 17 gm BID [facility] Administration Sacubitril/Valsartan 1 tab 12/26/17 22:00 12/27/17 09:52 Entresto 24 Mg-26 Mg Tablet PO 1 tab BID [facility] Administration Senna 2 tab 12/26/17 22:00 12/26/17 21:43 Senna - PO 2 tab HS [facility] Administration Sitagliptin Phosphate 25 mg 12/27/17 07:00 12/27/17 06:00 Januvia - PO 25 mg 0700 [facility] Administration Thiamine HCl 100 mg 12/27/17 10:00 12/27/17 09:51 Vitamin B1 - PO 100 mg DAILY [facility] Administration Impression 1. ESRD 2. hx pericardial effusion 3. hx pneumopericardium 4. hypothyroidism 5. a-fib 6. hypotension 7. hx of colon cancer 8. CHF 9. DM 10. hx of PE 11. CAD 12. right great toe gangrene Plan - HD in am - cardio eval for pericardial effusion - renal diet and fluids restriction - vascular follow up - cont wound care to foot - ID eval pending - will follow
[2017-12-27] MEDS: PIPERACILLIN/TAZOB 2.25 GM 2.25 GM in DEXTROSE 5%-WATER - 50 ML IVPB SCH ×2 (12:58→19:07)
[2017-12-27] MEDS: CLINDAMYCIN 300 MG PREMIX IVPB 300 MG/50 ML BAG IVPB SCH ×2 (14:22→19:53)
[2017-12-27] MEDS: HEPARIN SOD,PORK IN 0.45% NACL 25,000 UNITS/500 ML INFUS.BAG IVPB SCH (15:36)
--- NOTE | 2017-12-27 18:10 | CONSULT ---
Consult Consult Specialty:: Vascular Surgery - History of Present Illness History of Present Illness: 72 year old man with ESRD on HD, DM, severe PAD both legs. He has been treated for right foot infection with multiple Podiatric surgeries including amputation of toes 2-5 and subsequent debridements. In August I performed tibial atherectomy and angioplasty to improve distal flow. He now has increased swelling, drainage for the foot wound as well as necrosis of the remaining 1st toe. 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: Peripheral Neuropathy Cardio/Vascular: Yes: AFIB Pulmonary: Yes: COPD, Pulmonary Embolus Gastrointestinal: Yes: Cancer (COLON), Other (PATIENT STATES HE WAS RESECTED AND RECEIVED CHEMOTX AND RT AT [facility]) Renal/: Yes: Renal Failure, Hemodialysis Musculoskeletal: Yes: Other (RIGHT ANKLE/FOOT PAIN 10/10 WITH RIGHT LATERAL METATARSAL ULCER W DRAINAGE) Endocrine: Yes: Diabetes Mellitus - Past Surgical History Past Surgical History: Yes: AICD, AV Fistula/Graft, Colectomy - Alcohol/Substance Use Hx Alcohol Use: No History of Substance Use: reports: None - Smoking History Smoking history: Former smoker Have you smoked in the past 12 months: No If you are a former smoker, when did you quit?: 1981 - Social History ADL: Support Services History of Recent Travel: No Home Medications - Allergies Allergies/Adverse Reactions: Allergies Allergy/AdvReac Type Severity Reaction Status Date / Time No Known Drug Allergies Allergy Verified 09/11/17 09:55 - Home Medications Home Medications: Ambulatory Orders Clopidogrel Bisulfate [Plavix -] 75 mg PO DAILY 09/11/17 Glucosamine Sulfate Dipot Chlr [Glucosamine] 500 mg PO DAILY 09/11/17 Levothyroxine [Synthroid -] 75 mcg PO DAILY 09/11/17 Melatonin 5 mg PO HS PRN 09/11/17 Oxycodone HCl/Acetaminophen [Percocet 5-325 mg Tablet] 1 tab PO Q8H PRN Sacubitril/Valsartan [Entresto 24 mg-26 mg Tablet] 1 each PO BID 09/11/17 Sennosides [Senna -] 2 tab PO HS 09/11/17 Thiamine HCl [B-1] 100 mg PO DAILY 09/11/17 Acetaminophen [Tylenol .Regular Strength -] 325 mg PO Q8H PRN tablet 09/18/17 Metoprolol Succinate [Toprol XL -] 12.5 mg PO DAILY tab.sr.24h 09/18/17 Sitagliptin Phosphate [Januvia -] 25 mg PO 0700 tab 09/18/17 Warfarin Na [Coumadin -] 6 mg PO DAILY@1800 tablet 09/18/17 Insulin Aspart [Novolog] 100 unit SQ BID 10/04/17 Bacitracin - [Bacitracin Topical Ointment -] 500 units TP BID 11/29/17 Latanoprost 0.005% Eye Drops [Xalatan 0.005% Eye Drops -] 1 drop HS 11/29/17 Vitamin B Comp W-C [Nephro-Fer -] 0.8 mg PO DAILY 11/29/17 Polyethylene Glycol 3350 [Miralax (For Daily Use) -] 17 gm PO BID 12/26/17 Physical Exam Vital Signs: Vital Signs Temperature 98.9 F 12/27/17 13:43 Pulse Rate 67 12/27/17 13:43 Respiratory Rate 20 12/27/17 13:43 Blood Pressure 79/55 L 12/27/17 13:43 O2 Sat by Pulse Oximetry (%) 100 12/27/17 09:00 Extremities: Yes: Other (Right foot warm with edema and distal 1st toe gangrene. ) Edema: Yes Edema: LLE: 2+, RLE: 4+ Peripheral Pulses WNL: No (Doppler DP and PT right foot.) Wound/Incision: Yes: Other (Right foot wound has moderate exudate with granulation underneath. 1st toe is necrotic.) Labs: CBC, BMP 12/27/17 06:30 12/27/17 06:30 Problem List - Problems (1) Gangrene of toe of right foot Assessment/Plan: Failure of healing of right foot amputation with evidence for worsening distal perfusion and gangrene of toe. Edema is a factor in the poor healing. Plan is to reduce edema and re-evaluate distal flow with PVR study. If there is evidence for adequate flow to foot a formal TMA with wound closure can be attempted. pateint understands that BKA may ultimately be needed. Code(s): I96 - GANGRENE, NOT ELSEWHERE CLASSIFIED
[2017-12-27] MEDS: HYDROmorphone HCl 2 MG/ML VIAL IVPB PRN ×2 (18:26→22:14)
[2017-12-27] MEDS: SENNOSIDES 8.6MG TABLET (FP) PO SCH (21:54)
[2017-12-27] MEDS: LATANOPROST 0.005% OPHTH SOLN 2.5ML BOTTLE OD SCH (22:01)
[2017-12-27] MEDS: HEPARIN NA (PORCINE) 5,000 UNITS/ML 1ML VIAL IVPUSH PRN (22:34)
[2017-12-28] MEDS ORDERED: PT OWN MED DRAWER 7, Y5N ONE ×3 (01:03→21:27)
[2017-12-28] MEDS ORDERED: DEXTROSE 5%-WATER - 50 ML IVPB ONE ×3 (01:04→17:45)
[2017-12-28] MEDS ORDERED: PIPERACILLIN/TAZOBACTAM 2.25 GM VIAL IVPB ONE ×3 (01:04→17:45)
[2017-12-28] MEDS: HYDROmorphone HCl 2 MG/ML VIAL IVPB PRN ×5 (01:37→23:00)
[2017-12-28] MEDS: PIPERACILLIN/TAZOB 2.25 GM 2.25 GM in DEXTROSE 5%-WATER - 50 ML IVPB SCH ×3 (01:38→17:55)
[2017-12-28] MEDS: CLINDAMYCIN 300 MG PREMIX IVPB 300 MG/50 ML BAG IVPB SCH ×3 (01:38→17:55)
[2017-12-28] MEDS ORDERED: MELATONIN 5 MG TABLETS PO ONE (01:42)
[2017-12-28] MEDS: HEPARIN NA (PORCINE) 5,000 UNITS/ML 1ML VIAL IVPUSH PRN (06:41)
[2017-12-28] MEDS: LEVOTHYROXINE NA 75 MCG TABLET (FP) PO SCH (06:42)
[2017-12-28] MEDS: sitaGLIPtin PHOSPHATE 25 MG TABLET (FP) PO SCH (06:42)
[2017-12-28] MEDS: INSULIN SLIDING SCALE (NOVOLOG) 1 VIAL SQ SCH ×4 (06:49→22:53)
[2017-12-28] MEDS: ACETAMINOPHEN 325 MG TABLET (FP) PO PRN (09:22)
[2017-12-28] MEDS ORDERED: EPOETIN ALFA 6,000 UNIT, EPOETIN ALFA 2,000 UNIT IVPUSH ONE (10:00)
[2017-12-28 10:21] LABS: ALBUMIN 2.2 g/dl (3.4-5.0); ALK PHOS 292 U/L (45-117); ANION GAP 13 MMOL/L (8-16); BILIRUBIN,TOTAL 1.2 mg/dL (0.2-1); BLOOD UREA NITROGEN 26 mg/dL (7-18); CALCIUM 8.2 mg/dL (8.5-10.1); CHLORIDE 90 mmol/L (98-107); CO2 24 mmol/L (21-32); GLUCOSE,RANDOM 84 mg/dL (74-106); POTASSIUM 3.4 mmol/L (3.5-5.1); SGOT/AST 50 U/L (15-37); SGPT/ALT 21 U/L (13-61); SODIUM 127 mmol/L (136-145); TOT PROT 7.5 g/dl (6.4-8.2)
--- NOTE | 2017-12-28 10:46 | PN ---
Progress Note, Physician History of Present Illness: patient stable no new issues vascular note noted being dialysed - Current Medication List Current Medications: Active Medications Acetaminophen (Tylenol -) 325 mg PO Q8H PRN PRN Reason: PAIN SCALE 6-10 Last Admin: 12/28/17 09:22 Dose: 325 mg Albumin Human (Albumin Human 25%) 12.5 gm IVPB Q30M [facility] Stop: 12/28/17 11:31 Heparin Sodium (Porcine) (Heparin -) 1,000 unit IVPUSH PRN PRN PRN Reason: Heparin Last Admin: 12/28/17 06:41 Dose: 1,000 unit Heparin Sodium (Porcine) (Heparin -) 5,000 unit IVPUSH PRN PRN PRN Reason: Heparin Hydromorphone HCl (Dilaudid Vial -) 2 mg IVPB Q3H PRN PRN Reason: PAIN LEVEL 6-10 Last Admin: 12/28/17 06:36 Dose: 2 mg HEPARIN SOD,PORK IN 0.45% NACL (Heparin-1/2ns 25,000 Units/500) 25,000 units in 500 mls @ 20 mls/hr IVPB TITR [facility]; Protocol Last Admin: 12/27/17 15:36 Dose: 1,000 units/hr, 20 mls/hr Clindamycin Phosphate (Cleocin 300 Mg Premix Ivpb) 300 mg in 50 mls @ 100 mls/ hr IVPB Q8H-IV [facility]; Protocol Last Admin: 12/28/17 01:38 Dose: 100 mls/hr Piperacillin Sod/Tazobactam (Sod 2.25 gm/ Dextrose) 50 mls @ 100 mls/hr IVPB Q8H-IV [facility]; Protocol Last Admin: 12/28/17 01:38 Dose: 100 mls/hr Insulin Aspart (Novolog Vial Sliding Scale -) 1 vial SQ ACHS [facility]; Protocol Last Admin: 12/28/17 06:49 Dose: Not Given Latanoprost (Xalatan 0.005% Eye Drops -) 1 drop OD HS [facility] Last Admin: 12/27/17 22:01 Dose: 1 drop Levothyroxine Sodium (Synthroid -) 75 mcg PO 0700 [facility] Last Admin: 12/28/17 06:42 Dose: 75 mcg Metoprolol Succinate (Toprol Xl -) 12.5 mg PO DAILY [facility] Last Admin: 12/27/17 09:46 Dose: Not Given Multivit/Ca Carb/B Cmplx/FA/Prenat (Nephro-Fer -) 1 tablet PO DAILY [facility] Last Admin: 12/27/17 09:51 Dose: 1 tablet Polyethylene Glycol (Miralax (For Daily Use) -) 17 gm PO BID [facility] Last Admin: 12/27/17 21:56 Dose: 17 gm Sacubitril/Valsartan (Entresto 24 Mg-26 Mg Tablet) 1 tab PO BID [facility] Last Admin: 12/27/17 23:05 Dose: Not Given Senna (Senna -) 2 tab PO HS [facility] Last Admin: 12/27/17 21:54 Dose: 2 tab Sitagliptin Phosphate (Januvia -) 25 mg PO 0700 [facility] Last Admin: 12/28/17 06:42 Dose: 25 mg Thiamine HCl (Vitamin B1 -) 100 mg PO DAILY [facility] Last Admin: 12/27/17 09:51 Dose: 100 mg - Objective Vital Signs: Vital Signs Temperature 98 F 12/28/17 08:35 Pulse Rate 66 12/28/17 10:10 Respiratory Rate 18 12/28/17 10:10 Blood Pressure 90/56 L 12/28/17 10:10 O2 Sat by Pulse Oximetry (%) 100 12/27/17 21:00 Constitutional: Yes: No Distress, Calm Cardiovascular: Yes: S1, S2 Respiratory: Yes: Regular, CTA Bilaterally Gastrointestinal: Yes: Normal Bowel Sounds, Soft Musculoskeletal: Yes: Other Extremities: Yes: Other Wound/Incision: Yes: Dressing Dry and Intact, Other (gangrene of the rt toe with wound and swelling of the foot) Neurological: Yes: Alert, Oriented Psychiatric: Yes: Alert, Oriented Labs: CBC, BMP 12/27/17 06:30 12/28/17 08:40 INR, PTT INR 1.54 (0.83-1.09) H 12/27/17 06:30 Assessment/Plan Impression 1. ESRD 2. hx pericardial effusion 3. hx pneumopericardium 4. hypothyroidism 5. a-fib 6. hypotension 7. hx of colon cancer 8. CHF 9. DM 10. hx of PE 11. CAD 12. right great toe gangrene patient with rt toe gangrene await for final cx report continue current abx for now dialysis rest as per the team
--- NOTE | 2017-12-28 12:05 | PN ---
Progress Note, Physician History of Present Illness: Seen at HD. He denies chest pain, SOB or palpitations. He denies paroxysmal nocturnal dyspnea or orthopnea. He denies fever or chills. Coin Collector: Dr. Ghassan Durant - Current Medication List Current Medications: Active Medications Acetaminophen (Tylenol -) 325 mg PO Q8H PRN PRN Reason: PAIN SCALE 6-10 Last Admin: 12/28/17 09:22 Dose: 325 mg Heparin Sodium (Porcine) (Heparin -) 1,000 unit IVPUSH PRN PRN PRN Reason: Heparin Last Admin: 12/28/17 06:41 Dose: 1,000 unit Heparin Sodium (Porcine) (Heparin -) 5,000 unit IVPUSH PRN PRN PRN Reason: Heparin Hydromorphone HCl (Dilaudid Vial -) 2 mg IVPB Q3H PRN PRN Reason: PAIN LEVEL 6-10 Last Admin: 12/28/17 06:36 Dose: 2 mg HEPARIN SOD,PORK IN 0.45% NACL (Heparin-1/2ns 25,000 Units/500) 25,000 units in 500 mls @ 20 mls/hr IVPB TITR [facility]; Protocol Last Admin: 12/27/17 15:36 Dose: 1,000 units/hr, 20 mls/hr Clindamycin Phosphate (Cleocin 300 Mg Premix Ivpb) 300 mg in 50 mls @ 100 mls/ hr IVPB Q8H-IV [facility]; Protocol Last Admin: 12/28/17 01:38 Dose: 100 mls/hr Piperacillin Sod/Tazobactam (Sod 2.25 gm/ Dextrose) 50 mls @ 100 mls/hr IVPB Q8H-IV [facility]; Protocol Last Admin: 12/28/17 01:38 Dose: 100 mls/hr Insulin Aspart (Novolog Vial Sliding Scale -) 1 vial SQ ACHS [facility]; Protocol Last Admin: 12/28/17 06:49 Dose: Not Given Latanoprost (Xalatan 0.005% Eye Drops -) 1 drop OD HS [facility] Last Admin: 12/27/17 22:01 Dose: 1 drop Levothyroxine Sodium (Synthroid -) 75 mcg PO 0700 [facility] Last Admin: 12/28/17 06:42 Dose: 75 mcg Metoprolol Succinate (Toprol Xl -) 12.5 mg PO DAILY [facility] Last Admin: 12/27/17 09:46 Dose: Not Given Multivit/Ca Carb/B Cmplx/FA/Prenat (Nephro-Fer -) 1 tablet PO DAILY [facility] Last Admin: 12/27/17 09:51 Dose: 1 tablet Polyethylene Glycol (Miralax (For Daily Use) -) 17 gm PO BID [facility] Last Admin: 12/27/17 21:56 Dose: 17 gm Sacubitril/Valsartan (Entresto 24 Mg-26 Mg Tablet) 1 tab PO BID [facility] Last Admin: 12/27/17 23:05 Dose: Not Given Senna (Senna -) 2 tab PO HS [facility] Last Admin: 12/27/17 21:54 Dose: 2 tab Sitagliptin Phosphate (Januvia -) 25 mg PO 0700 [facility] Last Admin: 12/28/17 06:42 Dose: 25 mg Thiamine HCl (Vitamin B1 -) 100 mg PO DAILY [facility] Last Admin: 12/27/17 09:51 Dose: 100 mg - Objective Vital Signs: Vital Signs Temperature 98 F 12/28/17 08:35 Pulse Rate 66 12/28/17 10:10 Respiratory Rate 18 12/28/17 10:10 Blood Pressure 90/56 L 12/28/17 10:10 O2 Sat by Pulse Oximetry (%) 100 12/27/17 21:00 Constitutional: Yes: No Distress, Calm, Thin Neck: Yes: Supple Cardiovascular: Yes: Regular Rate and Rhythm Respiratory: Yes: Regular, Diminished, On Nasal O2 Gastrointestinal: Yes: Normal Bowel Sounds, Soft Extremities: Yes: Amputation (right toe amputations) Edema: Yes (right foot) Labs: CBC, BMP 12/27/17 06:30 12/28/17 08:40 INR, PTT INR 1.54 (0.83-1.09) H 12/27/17 06:30 Problem List - Problems (1) Chronic kidney disease on chronic dialysis Code(s): N18.6 - END STAGE RENAL DISEASE; Z99.2 - DEPENDENCE ON RENAL DIALYSIS (2) Gangrene of toe of right foot Code(s): I96 - GANGRENE, NOT ELSEWHERE CLASSIFIED (3) Amputated toe of right foot Code(s): Z89.421 - ACQUIRED ABSENCE OF OTHER RIGHT TOE(S) (4) Atrial fibrillation Code(s): I48.91 - UNSPECIFIED ATRIAL FIBRILLATION Qualifiers: Atrial fibrillation type: permanent Qualified Code(s): I48.2 - Chronic atrial fibrillation (5) Cardiomyopathy Code(s): I42.9 - CARDIOMYOPATHY, UNSPECIFIED Qualifiers: Cardiomyopathy type: unspecified Qualified Code(s): I42.9 - Cardiomyopathy , unspecified (6) Chronic anticoagulation Code(s): Z79.01 - SLIP COVER OPERATOR (CURRENT) USE OF 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 (7) 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 Code(s): E11.9 - TYPE 2 DIABETES MELLITUS WITHOUT COMPLICATIONS Qualifiers: 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 type: type 2 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 long term care administrator insulin use: with residential use 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 complication detail: with peripheral angiopathy with gangrene (8) ESRD (end stage renal disease) Code(s): N18.6 - END STAGE RENAL DISEASE (9) Hypothyroid Code(s): E03.9 - HYPOTHYROIDISM, UNSPECIFIED Qualifiers: Hypothyroidism type: unspecified Qualified Code(s): E03.9 - Hypothyroidism , unspecified (10) ICD (implantable cardioverter-defibrillator) in place Code(s): Z95.810 - PRESENCE OF AUTOMATIC (IMPLANTABLE) CARDIAC DEFIBRILLATOR (11) Open wound of foot Code(s): S91.309A - UNSPECIFIED OPEN WOUND, UNSPECIFIED FOOT, INITIAL ENCOUNTER Qualifiers: Encounter type: subsequent encounter Laterality: right Qualified Code(s) : S91.301D - Unspecified open wound, right foot, subsequent encounter (12) Pericardial effusion Code(s): I31.3 - PERICARDIAL EFFUSION (NONINFLAMMATORY) (13) Status post peripheral artery angioplasty Code(s): Z98.62 - PERIPHERAL VASCULAR ANGIOPLASTY STATUS (14) Pre-operative cardiovascular examination Code(s): Z01.810 - ENCOUNTER FOR PREPROCEDURAL CARDIOVASCULAR EXAMINATION Assessment/Plan 09/12/2017 Echo: Moderate pericardial effusion, no tamponade, mildly dilated LV with severely decreased LV fxn, mild-mod dilated RV with severely decreased RV fxn, mod-severe MUKUL, mild MR, mild-mod TR, mild AR 10/05/2017 Echo: Moderately dilated with severely decreased LV fxn, RV dilated with severely decreased RV fxn, mod LAE, mild MR, mod TR, mild AR, mod pericardial effusion similar to previous 1. Peripheral artery disease and gangrene right forefoot post right tibial revacularization and debridement of bone and soft tissue with toe amputations, wound vac and HBO2 planned for right TMA vs BKA - pre-op CV evaluation 2. Ischemic dilated cardiomyopathy with chronic class I-II NYHA classification LV failure, compensated/euvolemic, post prophylactic ICD implant 3. CAD post DE with evidence of demand ischemic injury angina pectoris, clinically stable 4. Persistent atrial fibrillation [id number] score of 3-4 on Coumadin with subtherapeutic INR 5. Pericardial effusion probably uremic pericarditis, moderate in severity/ unchanged 6. 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 7. Hypothyroidism 8. History of PTE 9. ESRD on HD 10. History of colon cancer PLAN: 1. Empiric antibiotics course and analgesia as needed per the primary team 2. HD as per renal service and replete K 3. Hold Plavix 75 qd and coumadin and continue Heparin gtt pending formal TMA vs BKA with close monitoring of CBC 4. Continue Toprol XL 12.5 qd and titrate as hemodynamics permit/tolerate 5. Continue Entresto 24/26 bid and titrate as hemodynamics permit/tolerate 6. Consider Jardiance for decreased CV event risk 7. Given absence of symptoms of acute coronary syndrome, decompensated CHF or malignant arrhythmia, may proceed with right BKA from CV-standpoint once INR is acceptable. May have to hold Toprol XL and Entresto day of surgery for hemodynamic reasons, thank you for consultative opportunity. Coin Collector: Dr. Ghassan Durant
[2017-12-28] MEDS: ALBUMIN HUMAN 25% 12.5 GM/50 ML VIAL IVPB SCH ×2 (12:14→12:15)
[2017-12-28] MEDS ORDERED: EPOETIN ALFA 10,000 UNIT/1 ML VIAL IVPUSH ONE (12:44)
[2017-12-28] MEDS: VITAMIN B COMP W-C 1 EA TABLET PO SCH (13:24)
[2017-12-28] MEDS: metoPROLOL SUCCINATE 25 MG TAB.SR.24H (FP) PO SCH (13:25)
[2017-12-28] MEDS: THIAMINE HCL 100 MG TABLET (FP) PO SCH (13:25)
[2017-12-28] MEDS: POLYETHYLENE GLYCOL 3350 119 GM BTL PO SCH ×2 (14:00→22:54)
--- NOTE | 2017-12-28 14:21 | PN ---
Progress Note (short form) - Note Progress Note: 72M h/o Right toe gangrene. Pt was seen yesterday and was advised that he would most likely need a Right TMA, but pt has significant edema so was placed in compression dressing and leg elevation. Pt states that he took compression dressing down last night because it was bothering him. Last Vital Signs Temp Pulse Resp BP Pulse Ox 98 F 66 18 87/55 L 100 12/28/17 08:35 12/28/17 12:38 12/28/17 12:38 12/28/17 12:38 12/27/17 21:00 CBC, BMP 12/27/17 06:30 12/28/17 08:40 PE: Gen: A&O x3 Resp: breathing comfortably Ext: Right foot has +2 edema, dressing in place clean and dry. <Alexis Swift - Last Filed: 12/28/17 13:48> - Note Progress Note: Right foot and leg edema much improved. Wounds unchanged Will continue active fluid removal on dialysis and elevation and compression wrapping to foot. TMA to be scheduled after Doppler/PVR done. <Olvin Cope - Last Filed: 12/28/17 17:40> Problem List - Problems (1) Gangrene of toe of right foot Assessment/Plan: Plan -replaced compression dressing, and explained to pt that it is very important to get swelling down. -continue compression dressing and leg elevation -appreciate medicine working to reduce fluid load Code(s): I96 - GANGRENE, NOT ELSEWHERE CLASSIFIED <Alexis Swift - Last Filed: 12/28/17 13:48> - Problems (1) Gangrene of toe of right foot Code(s): I96 - GANGRENE, NOT ELSEWHERE CLASSIFIED <Olvin Cope - Last Filed: 12/28/17 17:40>
[2017-12-28] MEDS: SACUBITRIL/VALSARTAN 24 MG-26 MG TABLET PO SCH ×2 (14:59→22:53)
[2017-12-28] MEDS: HEPARIN SOD,PORK IN 0.45% NACL 25,000 UNITS/500 ML INFUS.BAG IVPB SCH (15:51)
[2017-12-28] MEDS ORDERED: POTASSIUM CHLORIDE TABS 20 MEQ TABLET.ER (FP) PO ONE (15:59)
--- NOTE | 2017-12-28 16:03 | PN ---
Progress Note, Physician History of Present Illness: Pt seen and examined at bedside. He is awake and alert. He is tolerating HD. - Current Medication List Current Medications: Active Medications Acetaminophen (Tylenol -) 325 mg PO Q8H PRN PRN Reason: PAIN SCALE 6-10 Last Admin: 12/28/17 09:22 Dose: 325 mg Heparin Sodium (Porcine) (Heparin -) 1,000 unit IVPUSH PRN PRN PRN Reason: Heparin Last Admin: 12/28/17 06:41 Dose: 1,000 unit Heparin Sodium (Porcine) (Heparin -) 5,000 unit IVPUSH PRN PRN PRN Reason: Heparin Hydromorphone HCl (Dilaudid Vial -) 2 mg IVPB Q3H PRN PRN Reason: PAIN LEVEL 6-10 Last Admin: 12/28/17 14:02 Dose: 2 mg HEPARIN SOD,PORK IN 0.45% NACL (Heparin-1/2ns 25,000 Units/500) 25,000 units in 500 mls @ 20 mls/hr IVPB TITR [facility]; Protocol Last Admin: 12/28/17 15:51 Dose: 1,000 units/hr, 20 mls/hr Clindamycin Phosphate (Cleocin 300 Mg Premix Ivpb) 300 mg in 50 mls @ 100 mls/ hr IVPB Q8H-IV [facility]; Protocol Last Admin: 12/28/17 13:25 Dose: 100 mls/hr Piperacillin Sod/Tazobactam (Sod 2.25 gm/ Dextrose) 50 mls @ 100 mls/hr IVPB Q8H-IV [facility]; Protocol Last Admin: 12/28/17 13:25 Dose: 100 mls/hr Insulin Aspart (Novolog Vial Sliding Scale -) 1 vial SQ ACHS [facility]; Protocol Last Admin: 12/28/17 11:00 Dose: Not Given Latanoprost (Xalatan 0.005% Eye Drops -) 1 drop OD HS [facility] Last Admin: 12/27/17 22:01 Dose: 1 drop Levothyroxine Sodium (Synthroid -) 75 mcg PO 0700 [facility] Last Admin: 12/28/17 06:42 Dose: 75 mcg Metoprolol Succinate (Toprol Xl -) 12.5 mg PO DAILY [facility] Last Admin: 12/28/17 13:25 Dose: 12.5 mg Multivit/Ca Carb/B Cmplx/FA/Prenat (Nephro-Fer -) 1 tablet PO DAILY [facility] Last Admin: 12/28/17 13:24 Dose: 1 tablet Polyethylene Glycol (Miralax (For Daily Use) -) 17 gm PO BID [facility] Last Admin: 12/28/17 14:00 Dose: 17 gm Potassium Chloride (K-Dur -) 20 meq PO ONCE ONE Stop: 12/28/17 16:00 Sacubitril/Valsartan (Entresto 24 Mg-26 Mg Tablet) 1 tab PO BID [facility] Last Admin: 12/28/17 14:59 Dose: Not Given Senna (Senna -) 2 tab PO HS [facility] Last Admin: 12/27/17 21:54 Dose: 2 tab Sitagliptin Phosphate (Januvia -) 25 mg PO 0700 [facility] Last Admin: 12/28/17 06:42 Dose: 25 mg Thiamine HCl (Vitamin B1 -) 100 mg PO DAILY [facility] Last Admin: 12/28/17 13:25 Dose: 100 mg - Objective Vital Signs: Vital Signs Temperature 98.2 F 12/28/17 13:50 Pulse Rate 62 12/28/17 15:00 Respiratory Rate 18 12/28/17 15:00 Blood Pressure 83/48 L 12/28/17 15:00 O2 Sat by Pulse Oximetry (%) 100 12/27/17 21:00 Constitutional: Yes: Calm Eyes: Yes: Conjunctiva Clear HENT: Yes: Atraumatic Cardiovascular: Yes: JVD, S1, S2 Respiratory: Yes: On Nasal O2 Gastrointestinal: Yes: Soft Genitourinary: Yes: WNL Musculoskeletal: Yes: Other (dressing in place over foot) Edema: Yes Edema: LLE: 1+, RLE: 1+ Neurological: Yes: Oriented Psychiatric: Yes: Oriented Labs: CBC, BMP 12/27/17 06:30 12/28/17 08:40 INR, PTT INR 1.54 (0.83-1.09) H 12/27/17 06:30 Problem List - Problems (1) Gangrene of toe of right foot Code(s): I96 - GANGRENE, NOT ELSEWHERE CLASSIFIED (2) ESRD (end stage renal disease) Code(s): N18.6 - END STAGE RENAL DISEASE Assessment/Plan Current Medications Generic Name Dose Route Start Last Admin Trade Name Freq PRN Reason Stop Dose Admin Acetaminophen 325 mg 12/26/17 18:04 12/28/17 09:22 Tylenol - PO 325 mg Q8H PRN Administration PAIN SCALE 6-10 Heparin Sodium (Porcine) 1,000 unit 12/27/17 11:58 12/28/17 06:41 Heparin - IVPUSH 1,000 unit PRN PRN Administration Heparin Heparin Sodium (Porcine) 5,000 unit 12/27/17 11:58 Heparin - IVPUSH PRN PRN Heparin Hydromorphone HCl 2 mg 12/27/17 18:11 12/28/17 14:02 Dilaudid Vial - IVPB 2 mg Q3H PRN Administration PAIN LEVEL 6-10 HEPARIN SOD,PORK IN 0.45% NACL 25,000 units in 500 mls @ 20 mls/hr 12/27/17 12 :00 12/28/17 15:51 Heparin-1/2ns 25,000 Units/500 IVPB 1,000 units/hr TITR VIRAJ 20 mls/hr Administration Protocol 1,000 UNITS/HR Clindamycin Phosphate 300 mg in 50 mls @ 100 mls/hr 12/27/17 12:45 12/28/17 13:25 Cleocin 300 Mg Premix Ivpb IVPB 100 mls/hr Q8H-IV VIRAJ Administration Protocol Piperacillin Sod/Tazobactam 50 mls @ 100 mls/hr 12/27/17 12:45 12/28/17 13:25 Sod 2.25 gm/ Dextrose IVPB 100 mls/hr Q8H-IV [facility]IRAJ Administration Protocol Insulin Aspart 1 vial 12/26/17 22:00 12/28/17 11:00 Novolog Vial Sliding Scale - SQ Not Given ACHS VIRAJ Protocol Latanoprost 1 drop 12/26/17 22:00 12/27/17 22:01 Xalatan 0.005% Eye Drops - OD 1 drop HS [facility] Administration Levothyroxine Sodium 75 mcg 12/27/17 07:00 12/28/17 06:42 Synthroid - PO 75 mcg 0700 [facility] Administration Metoprolol Succinate 12.5 mg 12/27/17 10:00 12/28/17 13:25 Toprol Xl - PO 12.5 mg DAILY [facility] Administration Multivit/Ca Carb/B Cmplx/FA/Prenat 1 tablet 12/27/17 10:00 12/28/17 13:24 Nephro-Fer - PO 1 tablet DAILY [facility] Administration Polyethylene Glycol 17 gm 12/26/17 22:00 12/28/17 14:00 Miralax (For Daily Use) - PO 17 gm BID [facility] Administration Potassium Chloride 20 meq 12/28/17 15:59 K-Dur - PO 12/28/17 16:00 ONCE ONE Sacubitril/Valsartan 1 tab 12/26/17 22:00 12/28/17 14:59 Entresto 24 Mg-26 Mg Tablet PO Not Given BID [facility] Senna 2 tab 12/26/17 22:00 12/27/17 21:54 Senna - PO 2 tab HS [facility] Administration Sitagliptin Phosphate 25 mg 12/27/17 07:00 12/28/17 06:42 Januvia - PO 25 mg 0700 [facility] Administration Thiamine HCl 100 mg 12/27/17 10:00 12/28/17 13:25 Vitamin B1 - PO 100 mg DAILY [facility] Administration Selected Entries 12/28/17 15:00 Blood Pressure 83/48 L Impression 1. ESRD 2. hx pericardial effusion 3. hx pneumopericardium 4. hypothyroidism 5. a-fib 6. hypotension 7. hx of colon cancer 8. CHF 9. DM 10. hx of PE 11. CAD 12. right great toe gangrene Plan - will dialyze again tomorrow for fluid removal. Pt will also get HD on Monday - will give a dose of potassium - cardio input appreciated - vascular follow up, discussed case with them on the phone - cont wound care to foot - abx per ID - will follow
--- NOTE | 2017-12-28 21:05 | PN ---
Progress Note, Physician - Current Medication List Current Medications: Active Medications Acetaminophen (Tylenol -) 325 mg PO Q8H PRN PRN Reason: PAIN SCALE 6-10 Last Admin: 12/28/17 09:22 Dose: 325 mg Albumin Human (Albumin Human 25%) 12.5 gm IVPB Q30M [facility] Heparin Sodium (Porcine) (Heparin -) 1,000 unit IVPUSH PRN PRN PRN Reason: Heparin Last Admin: 12/28/17 06:41 Dose: 1,000 unit Heparin Sodium (Porcine) (Heparin -) 5,000 unit IVPUSH PRN PRN PRN Reason: Heparin Hydromorphone HCl (Dilaudid Vial -) 2 mg IVPB Q3H PRN PRN Reason: PAIN LEVEL 6-10 Last Admin: 12/28/17 18:35 Dose: 2 mg HEPARIN SOD,PORK IN 0.45% NACL (Heparin-1/2ns 25,000 Units/500) 25,000 units in 500 mls @ 20 mls/hr IVPB TITR [facility] [place]; Protocol Last Admin: 12/28/17 15:51 Dose: 1,000 units/hr, 20 mls/hr Clindamycin Phosphate (Cleocin 300 Mg Premix Ivpb) 300 mg in 50 mls @ 100 mls/ hr IVPB Q8H-IV [facility]IRAJ; Protocol Last Admin: 12/28/17 17:55 Dose: 100 mls/hr Piperacillin Sod/Tazobactam (Sod 2.25 gm/ Dextrose) 50 mls @ 100 mls/hr IVPB Q8H-IV [facility]; Protocol Last Admin: 12/28/17 17:55 Dose: 100 mls/hr Sodium Chloride (Normal Saline -) 250 mls @ 3,000 mls/hr IV PRN PRN PRN Reason: Hypotension during Dialysis Stop: 12/29/17 16:03 Insulin Aspart (Novolog Vial Sliding Scale -) 1 vial SQ ACHS [facility]; Protocol Last Admin: 12/28/17 17:08 Dose: Not Given Latanoprost (Xalatan 0.005% Eye Drops -) 1 drop OD HS [facility] Last Admin: 12/27/17 22:01 Dose: 1 drop Levothyroxine Sodium (Synthroid -) 75 mcg PO 0700 [facility] Last Admin: 12/28/17 06:42 Dose: 75 mcg Metoprolol Succinate (Toprol Xl -) 12.5 mg PO DAILY [facility] Last Admin: 12/28/17 13:25 Dose: 12.5 mg Multivit/Ca Carb/B Cmplx/FA/Prenat (Nephro-Fer -) 1 tablet PO DAILY [facility] Last Admin: 12/28/17 13:24 Dose: 1 tablet Polyethylene Glycol (Miralax (For Daily Use) -) 17 gm PO BID [facility] Last Admin: 12/28/17 14:00 Dose: 17 gm Sacubitril/Valsartan (Entresto 24 Mg-26 Mg Tablet) 1 tab PO BID [facility] Last Admin: 12/28/17 14:59 Dose: Not Given Senna (Senna -) 2 tab PO HS [facility] Last Admin: 12/27/17 21:54 Dose: 2 tab Sitagliptin Phosphate (Januvia -) 25 mg PO 0700 [facility] Last Admin: 12/28/17 06:42 Dose: 25 mg Thiamine HCl (Vitamin B1 -) 100 mg PO DAILY [facility] Last Admin: 12/28/17 13:25 Dose: 100 mg - Objective Vital Signs: Vital Signs Temperature 98.2 F 12/28/17 13:50 Pulse Rate 62 12/28/17 15:00 Respiratory Rate 18 12/28/17 15:00 Blood Pressure 83/48 L 12/28/17 15:00 O2 Sat by Pulse Oximetry (%) 100 12/28/17 09:00 Constitutional: Yes: No Distress Cardiovascular: Yes: WNL, Regular Rate and Rhythm Respiratory: Yes: WNL, Regular, CTA Bilaterally Gastrointestinal: Yes: WNL, Normal Bowel Sounds, Soft Labs: CBC, BMP 12/27/17 06:30 12/28/17 08:40 INR, PTT INR 1.54 (0.83-1.09) H 12/27/17 06:30 Problem List - Problems (1) Chronic kidney disease (CKD), stage V Code(s): N18.5 - CHRONIC KIDNEY DISEASE, STAGE 5 (2) Diabetic foot ulcer Code(s): E11.621 - TYPE 2 DIABETES MELLITUS WITH FOOT ULCER; L97.509 - NON- PRESSURE CHRONIC ULCER OTH PRT UNSP FOOT W UNSP SEVERITY (3) Anemia Code(s): D64.9 - ANEMIA, UNSPECIFIED Qualifiers: Anemia type: due to chronic kidney disease (4) Atrial fibrillation Code(s): I48.91 - UNSPECIFIED ATRIAL FIBRILLATION Qualifiers: Atrial fibrillation type: permanent Qualified Code(s): I48.2 - Chronic atrial fibrillation (5) Cardiomyopathy Code(s): I42.9 - CARDIOMYOPATHY, UNSPECIFIED Qualifiers: Cardiomyopathy type: unspecified Qualified Code(s): I42.9 - Cardiomyopathy , unspecified (6) 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 Code(s): E11.9 - TYPE 2 DIABETES MELLITUS WITHOUT COMPLICATIONS Qualifiers: 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 type: type 2 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 extermination inspector insulin use: with snf use 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 complication detail: with peripheral angiopathy with gangrene (7) HTN (hypertension) Code(s): I10 - ESSENTIAL (PRIMARY) HYPERTENSION Qualifiers: Hypertension type: essential hypertension Qualified Code(s): I10 - Essential (primary) hypertension (8) Hypotension Code(s): I95.9 - HYPOTENSION, UNSPECIFIED Qualifiers: Hypotension type: other hypotension type Qualified Code(s): I95.89 - Other hypotension
[2017-12-28] MEDS: SENNOSIDES 8.6MG TABLET (FP) PO SCH (22:52)
[2017-12-28] MEDS: LATANOPROST 0.005% OPHTH SOLN 2.5ML BOTTLE OD SCH (22:53)
[2017-12-29] MEDS ORDERED: PIPERACILLIN/TAZOBACTAM 2.25 GM VIAL IVPB ONE ×2 (02:13→09:38)
[2017-12-29] MEDS ORDERED: PT OWN MED DRAWER 7, Y5N ONE ×2 (02:13→21:15)
[2017-12-29] MEDS ORDERED: DEXTROSE 5%-WATER - 50 ML IVPB ONE ×2 (02:14→09:38)
[2017-12-29] MEDS: PIPERACILLIN/TAZOB 2.25 GM 2.25 GM in DEXTROSE 5%-WATER - 50 ML IVPB SCH ×2 (02:16→09:45)
[2017-12-29] MEDS: CLINDAMYCIN 300 MG PREMIX IVPB 300 MG/50 ML BAG IVPB SCH ×4 (02:42→17:08)
[2017-12-29] MEDS: LEVOTHYROXINE NA 75 MCG TABLET (FP) PO SCH (06:22)
[2017-12-29] MEDS: INSULIN SLIDING SCALE (NOVOLOG) 1 VIAL SQ SCH ×4 (06:22→21:35)
[2017-12-29] MEDS: sitaGLIPtin PHOSPHATE 25 MG TABLET (FP) PO SCH (06:22)
[2017-12-29 07:49] LABS: HEMATOCRIT 28.6 % (35.4-49); HEMOGLOBIN 8.8 GM/dL (11.7-16.9); MCH 27.2 pg (25.7-33.7); MCHC 30.8 g/dl (32.0-35.9); MEAN CELL VOLUME 88.4 fl (80-96); MEAN PLT VOLUME 8.7 fl (7.5-11.1); PLATELET COUNT 209 K/MM3 (134-434); RBC 3.24 M/mm3 (4.00-5.60); RDW 19.9 % (11.9-15.9)
[2017-12-29] MEDS ORDERED: SODIUM CHLORIDE 250 ML IV PRN (09:30)
[2017-12-29] MEDS: HYDROmorphone HCl 2 MG/ML VIAL IVPB PRN (09:44)
[2017-12-29] MEDS: VITAMIN B COMP W-C 1 EA TABLET PO SCH (09:45)
[2017-12-29] MEDS: metoPROLOL SUCCINATE 25 MG TAB.SR.24H (FP) PO SCH (09:45)
[2017-12-29] MEDS: THIAMINE HCL 100 MG TABLET (FP) PO SCH (09:45)
--- NOTE | 2017-12-29 10:44 | PN ---
Progress Note, Physician History of Present Illness: patient stable vascular note noted - Current Medication List Current Medications: Active Medications Acetaminophen (Tylenol -) 325 mg PO Q8H PRN PRN Reason: PAIN SCALE 6-10 Last Admin: 12/28/17 09:22 Dose: 325 mg Albumin Human (Albumin Human 25%) 12.5 gm IVPB Q30M [facility] Stop: 12/29/17 11:21 Heparin Sodium (Porcine) (Heparin -) 1,000 unit IVPUSH PRN PRN PRN Reason: Heparin Last Admin: 12/28/17 06:41 Dose: 1,000 unit Heparin Sodium (Porcine) (Heparin -) 5,000 unit IVPUSH PRN PRN PRN Reason: Heparin Hydromorphone HCl (Dilaudid Vial -) 2 mg IVPB Q3H PRN PRN Reason: PAIN LEVEL 6-10 Last Admin: 12/29/17 09:44 Dose: 2 mg HEPARIN SOD,PORK IN 0.45% NACL (Heparin-1/2ns 25,000 Units/500) 25,000 units in 500 mls @ 20 mls/hr IVPB TITR [facility]; Protocol Last Admin: 12/28/17 15:51 Dose: 1,000 units/hr, 20 mls/hr Clindamycin Phosphate (Cleocin 300 Mg Premix Ivpb) 300 mg in 50 mls @ 100 mls/ hr IVPB Q8H-IV [facility]; Protocol Last Admin: 12/29/17 02:42 Dose: 100 mls/hr Piperacillin Sod/Tazobactam (Sod 2.25 gm/ Dextrose) 50 mls @ 100 mls/hr IVPB Q8H-IV [facility]; Protocol Last Admin: 12/29/17 09:45 Dose: 100 mls/hr Insulin Aspart (Novolog Vial Sliding Scale -) 1 vial SQ ACHS [facility]; Protocol Last Admin: 12/29/17 06:22 Dose: Not Given Latanoprost (Xalatan 0.005% Eye Drops -) 1 drop OD HS [facility] Last Admin: 12/28/17 22:53 Dose: 1 drop Levothyroxine Sodium (Synthroid -) 75 mcg PO 0700 [facility] Last Admin: 12/29/17 06:22 Dose: 75 mcg Metoprolol Succinate (Toprol Xl -) 12.5 mg PO DAILY [facility] Last Admin: 12/29/17 09:45 Dose: 12.5 mg Multivit/Ca Carb/B Cmplx/FA/Prenat (Nephro-Fer -) 1 tablet PO DAILY [facility] Last Admin: 12/29/17 09:45 Dose: 1 tablet Polyethylene Glycol (Miralax (For Daily Use) -) 17 gm PO BID [facility] Last Admin: 12/28/17 22:54 Dose: 17 gm Sacubitril/Valsartan (Entresto 24 Mg-26 Mg Tablet) 1 tab PO BID [facility] Last Admin: 12/28/17 22:53 Dose: Not Given Senna (Senna -) 2 tab PO HS [facility] Last Admin: 12/28/17 22:52 Dose: 2 tab Sitagliptin Phosphate (Januvia -) 25 mg PO 0700 [facility] Last Admin: 12/29/17 06:22 Dose: 25 mg Thiamine HCl (Vitamin B1 -) 100 mg PO DAILY [facility] Last Admin: 12/29/17 09:45 Dose: 100 mg - Objective Vital Signs: Vital Signs Temperature 98.1 F 12/29/17 01:00 Pulse Rate 66 12/29/17 01:00 Respiratory Rate 20 12/29/17 01:00 Blood Pressure 90/50 L 12/29/17 01:00 O2 Sat by Pulse Oximetry (%) 100 12/28/17 21:00 Constitutional: Yes: No Distress, Calm Cardiovascular: Yes: Regular Rate and Rhythm Respiratory: Yes: Regular, CTA Bilaterally Gastrointestinal: Yes: Normal Bowel Sounds, Soft Musculoskeletal: Yes: WNL Extremities: Yes: Other Wound/Incision: Yes: Dressing Dry and Intact Neurological: Yes: Alert, Oriented Psychiatric: Yes: Alert, Oriented Labs: CBC, BMP 12/29/17 07:00 12/28/17 08:40 INR, PTT INR 1.54 (0.83-1.09) H 12/27/17 06:30 Assessment/Plan Impression 1. ESRD 2. hx pericardial effusion 3. hx pneumopericardium 4. hypothyroidism 5. a-fib 6. hypotension 7. hx of colon cancer 8. CHF 9. DM 10. hx of PE 11. CAD 12. right great toe gangrene patient with rt toe gangrene plan will stop zosyn vanco during dialysis wound care final plan per vascular
[2017-12-29] MEDS ORDERED: VANCOMYCIN 1 GRAM (PRE-DOCKED) 1,000 MG/250 ML BAG IVPB ONE (11:00)
[2017-12-29] MEDS: ALBUMIN HUMAN 25% 12.5 GM/50 ML VIAL IVPB SCH ×4 (12:00→14:16)
--- NOTE | 2017-12-29 12:33 | PN ---
Progress Note, Physician History of Present Illness: Seen at HD, reports chills w/o fevers, but denies chest pain, SOB or palpitations, paroxysmal nocturnal dyspnea or orthopnea Business Banking Officer: Dr. Ghassan Durant - Current Medication List Current Medications: Active Medications Acetaminophen (Tylenol -) 325 mg PO Q8H PRN PRN Reason: PAIN SCALE 6-10 Last Admin: 12/28/17 09:22 Dose: 325 mg Heparin Sodium (Porcine) (Heparin -) 1,000 unit IVPUSH PRN PRN PRN Reason: Heparin Last Admin: 12/28/17 06:41 Dose: 1,000 unit Heparin Sodium (Porcine) (Heparin -) 5,000 unit IVPUSH PRN PRN PRN Reason: Heparin Hydromorphone HCl (Dilaudid Vial -) 2 mg IVPB Q3H PRN PRN Reason: PAIN LEVEL 6-10 Last Admin: 12/29/17 09:44 Dose: 2 mg HEPARIN SOD,PORK IN 0.45% NACL (Heparin-1/2ns 25,000 Units/500) 25,000 units in 500 mls @ 20 mls/hr IVPB TITR [facility]; Protocol Last Admin: 12/28/17 15:51 Dose: 1,000 units/hr, 20 mls/hr Clindamycin Phosphate (Cleocin 300 Mg Premix Ivpb) 300 mg in 50 mls @ 100 mls/ hr IVPB Q8H-IV [facility]; Protocol Last Admin: 12/29/17 02:42 Dose: 100 mls/hr Insulin Aspart (Novolog Vial Sliding Scale -) 1 vial SQ ACHS [facility]; Protocol Last Admin: 12/29/17 06:22 Dose: Not Given Latanoprost (Xalatan 0.005% Eye Drops -) 1 drop OD HS [facility] Last Admin: 12/28/17 22:53 Dose: 1 drop Levothyroxine Sodium (Synthroid -) 75 mcg PO 0700 [facility] Last Admin: 12/29/17 06:22 Dose: 75 mcg Metoprolol Succinate (Toprol Xl -) 12.5 mg PO DAILY [facility] Last Admin: 12/29/17 09:45 Dose: 12.5 mg Multivit/Ca Carb/B Cmplx/FA/Prenat (Nephro-Fer -) 1 tablet PO DAILY [facility] Last Admin: 12/29/17 09:45 Dose: 1 tablet Polyethylene Glycol (Miralax (For Daily Use) -) 17 gm PO BID [facility] Last Admin: 12/28/17 22:54 Dose: 17 gm Sacubitril/Valsartan (Entresto 24 Mg-26 Mg Tablet) 1 tab PO BID [facility] Last Admin: 12/28/17 22:53 Dose: Not Given Senna (Senna -) 2 tab PO HS [facility] Last Admin: 12/28/17 22:52 Dose: 2 tab Sitagliptin Phosphate (Januvia -) 25 mg PO 0700 [facility] Last Admin: 12/29/17 06:22 Dose: 25 mg Thiamine HCl (Vitamin B1 -) 100 mg PO DAILY [facility] Last Admin: 12/29/17 09:45 Dose: 100 mg Vancomycin HCl (Vancomycin (Pre-Docked)) 1,000 mg IVPB TuThSa@1000 [facility] - Objective Vital Signs: Vital Signs Temperature 97.4 F L 12/29/17 11:20 Pulse Rate 98 H 12/29/17 11:55 Respiratory Rate 18 12/29/17 11:55 Blood Pressure 107/78 12/29/17 11:55 O2 Sat by Pulse Oximetry (%) 100 12/28/17 21:00 Constitutional: Yes: No Distress, Calm, Thin Neck: Yes: Supple Cardiovascular: Yes: Regular Rate and Rhythm, Murmur (2/6 SM) Respiratory: Yes: Regular, Diminished Gastrointestinal: Yes: Normal Bowel Sounds, Soft Extremities: Yes: Amputation (Right toes) Edema: No Wound/Incision: Yes: Dressing Dry and Intact Labs: CBC, BMP 12/29/17 07:00 INR, PTT INR 1.54 (0.83-1.09) H 12/27/17 06:30 Problem List - Problems (1) Chronic kidney disease on chronic dialysis Code(s): N18.6 - END STAGE RENAL DISEASE; Z99.2 - DEPENDENCE ON RENAL DIALYSIS (2) Gangrene of toe of right foot Code(s): I96 - GANGRENE, NOT ELSEWHERE CLASSIFIED (3) Amputated toe of right foot Code(s): Z89.421 - ACQUIRED ABSENCE OF OTHER RIGHT TOE(S) (4) Atrial fibrillation Code(s): I48.91 - UNSPECIFIED ATRIAL FIBRILLATION Qualifiers: Atrial fibrillation type: permanent Qualified Code(s): I48.2 - Chronic atrial fibrillation (5) Cardiomyopathy Code(s): I42.9 - CARDIOMYOPATHY, UNSPECIFIED Qualifiers: Cardiomyopathy type: unspecified Qualified Code(s): I42.9 - Cardiomyopathy , unspecified (6) Chronic anticoagulation Code(s): Z79.01 - [facility] (CURRENT) USE OF 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 (7) 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 Code(s): E11.9 - TYPE 2 DIABETES MELLITUS WITHOUT COMPLICATIONS Qualifiers: 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 type: type 2 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 group home insulin use: with group home use 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 complication detail: with peripheral angiopathy with gangrene (8) ESRD (end stage renal disease) Code(s): N18.6 - END STAGE RENAL DISEASE (9) Hypothyroid Code(s): E03.9 - HYPOTHYROIDISM, UNSPECIFIED Qualifiers: Hypothyroidism type: unspecified Qualified Code(s): E03.9 - Hypothyroidism , unspecified (10) ICD (implantable cardioverter-defibrillator) in place Code(s): Z95.810 - PRESENCE OF AUTOMATIC (IMPLANTABLE) CARDIAC DEFIBRILLATOR (11) Open wound of foot Code(s): S91.309A - UNSPECIFIED OPEN WOUND, UNSPECIFIED FOOT, INITIAL ENCOUNTER Qualifiers: Encounter type: subsequent encounter Laterality: right Qualified Code(s) : S91.301D - Unspecified open wound, right foot, subsequent encounter (12) Pericardial effusion Code(s): I31.3 - PERICARDIAL EFFUSION (NONINFLAMMATORY) (13) Status post peripheral artery angioplasty Code(s): Z98.62 - PERIPHERAL VASCULAR ANGIOPLASTY STATUS (14) Pre-operative cardiovascular examination Code(s): Z01.810 - ENCOUNTER FOR PREPROCEDURAL CARDIOVASCULAR EXAMINATION Assessment/Plan 09/12/2017 Echo: Moderate pericardial effusion, no tamponade, mildly dilated LV with severely decreased LV fxn, mild-mod dilated RV with severely decreased RV fxn, mod-severe MUKUL, mild MR, mild-mod TR, mild AR 10/05/2017 Echo: Moderately dilated with severely decreased LV fxn, RV dilated with severely decreased RV fxn, mod LAE, mild MR, mod TR, mild AR, mod pericardial effusion similar to previous 1. Peripheral artery disease and gangrene right forefoot post right tibial revacularization and debridement of bone and soft tissue with toe amputations, wound vac and HBO2 planned for right TMA vs BKA - pre-op CV evaluation 2. Ischemic dilated cardiomyopathy with chronic class I-II NYHA classification LV failure, compensated/euvolemic, post prophylactic ICD implant 3. CAD post UT with evidence of demand ischemic injury angina pectoris, clinically stable 4. Persistent atrial fibrillation [id number] score of 3-4 on Coumadin with subtherapeutic INR 5. Pericardial effusion probably uremic pericarditis, moderate in severity/ unchanged 6. 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 7. Hypothyroidism 8. History of PTE 9. ESRD on HD 10. History of colon cancer PLAN: 1. Empiric antibiotics course and analgesia as needed per the primary team 2. HD as per renal service and replete K 3. Hold Plavix 75 qd and coumadin and continue Heparin gtt pending formal TMA vs BKA with close monitoring of CBC 4. Continue Toprol XL 12.5 qd and titrate as hemodynamics permit/tolerate 5. Continue Entresto 24/26 bid and titrate as hemodynamics permit/tolerate 6. Consider Jardiance for decreased CV event risk 7. Given absence of symptoms of acute coronary syndrome, decompensated CHF or malignant arrhythmia, may proceed with right BKA from CV-standpoint once INR is acceptable. May have to hold Toprol XL and Entresto day of surgery for hemodynamic reasons Business Banking Officer: Dr. Ghassan Durant
--- NOTE | 2017-12-29 13:39 | PN ---
Progress Note (short form) - Note Progress Note: 72 y/o male found sitting on edge of bed. States that he feels constricted due to IV wires. States that pain in rt foot is rated as a 7 out of 10 on pain scale adn is throbbing. Vital Signs Period Temp Pulse Resp BP Sys/Yoon Pulse Ox Last 24 Hr 97.4 F-99 F 62-98 18-20 83-145/48-78 100 CBC, BMP 12/29/17 07:00 HEENT-NL Neck-Supple Lungs-CTAB Heart- S1/S2 Abd-soft,nt Ext- Rt ft dsg in place. Compression dsg not in place. LE edema. Active Medications Acetaminophen (Tylenol -) 325 mg PO Q8H PRN PRN Reason: PAIN SCALE 6-10 Last Admin: 12/28/17 09:22 Dose: 325 mg Heparin Sodium (Porcine) (Heparin -) 1,000 unit IVPUSH PRN PRN PRN Reason: Heparin Last Admin: 12/28/17 06:41 Dose: 1,000 unit Heparin Sodium (Porcine) (Heparin -) 5,000 unit IVPUSH PRN PRN PRN Reason: Heparin Hydromorphone HCl (Dilaudid Vial -) 2 mg IVPB Q3H PRN PRN Reason: PAIN LEVEL 6-10 Last Admin: 12/29/17 09:44 Dose: 2 mg HEPARIN SOD,PORK IN 0.45% NACL (Heparin-1/2ns 25,000 Units/500) 25,000 units in 500 mls @ 20 mls/hr IVPB TITR [facility]; Protocol Last Admin: 12/28/17 15:51 Dose: 1,000 units/hr, 20 mls/hr Clindamycin Phosphate (Cleocin 300 Mg Premix Ivpb) 300 mg in 50 mls @ 100 mls/ hr IVPB Q8H-IV [facility]; Protocol Last Admin: 12/29/17 02:42 Dose: 100 mls/hr Insulin Aspart (Novolog Vial Sliding Scale -) 1 vial SQ ACHS [facility]; Protocol Last Admin: 12/29/17 06:22 Dose: Not Given Latanoprost (Xalatan 0.005% Eye Drops -) 1 drop OD HS [facility] Last Admin: 12/28/17 22:53 Dose: 1 drop Levothyroxine Sodium (Synthroid -) 75 mcg PO 0700 [facility] Last Admin: 12/29/17 06:22 Dose: 75 mcg Metoprolol Succinate (Toprol Xl -) 12.5 mg PO DAILY [facility] Last Admin: 12/29/17 09:45 Dose: 12.5 mg Multivit/Ca Carb/B Cmplx/FA/Prenat (Nephro-Fer -) 1 tablet PO DAILY [facility] Last Admin: 12/29/17 09:45 Dose: 1 tablet Polyethylene Glycol (Miralax (For Daily Use) -) 17 gm PO BID [facility] Last Admin: 12/28/17 22:54 Dose: 17 gm Sacubitril/Valsartan (Entresto 24 Mg-26 Mg Tablet) 1 tab PO BID [facility] Last Admin: 12/28/17 22:53 Dose: Not Given Senna (Senna -) 2 tab PO HS [facility] Last Admin: 12/28/17 22:52 Dose: 2 tab Sitagliptin Phosphate (Januvia -) 25 mg PO 0700 [facility] Last Admin: 12/29/17 06:22 Dose: 25 mg Thiamine HCl (Vitamin B1 -) 100 mg PO DAILY [facility] Last Admin: 12/29/17 09:45 Dose: 100 mg Vancomycin HCl (Vancomycin (Pre-Docked)) 1,000 mg IVPB TuThSa@1000 [facility] Assessment/Plan Assmt # hypotension BP improved # right great toe gangrene - Abx per ID pain management- Dilaudid PRN surgical eval- may need rt BKA # r/o osteomyelitis - elevated ESR /crp /alk phos # hyponatremia NA 133 # PVD s/p angioplasty bilat LE right LE done 1 yr ago await vascular opinion # CKD5 on chronic HD HD today and tomorrow to remove excess fluid # DM on insulin / sliding scale # a fib -- a/c on coumadin - on hold started Lovenox pending surgical eval #CAD # Cardiomyopathy s/p ICD # hypothyroid TSH # HFrEF Hx of EF 25% # anemia of chronic disease # hx of pericardial effusion echo ordered # hx of colon ca s/p resection # hx of PE - on a/c # hx of pneumopericardium Problem List - Problems (1) Gangrene of toe of right foot Code(s): I96 - GANGRENE, NOT ELSEWHERE CLASSIFIED (2) Diabetic foot ulcer Code(s): E11.621 - TYPE 2 DIABETES MELLITUS WITH FOOT ULCER; L97.509 - NON- PRESSURE CHRONIC ULCER OTH PRT UNSP FOOT W UNSP SEVERITY (3) Amputated toe of right foot Code(s): Z89.421 - ACQUIRED ABSENCE OF OTHER RIGHT TOE(S) (4) Atrial fibrillation Code(s): I48.91 - UNSPECIFIED ATRIAL FIBRILLATION Qualifiers: Atrial fibrillation type: permanent Qualified Code(s): I48.2 - Chronic atrial fibrillation (5) Cardiomyopathy Code(s): I42.9 - CARDIOMYOPATHY, UNSPECIFIED Qualifiers: Cardiomyopathy type: unspecified Qualified Code(s): I42.9 - Cardiomyopathy , unspecified (6) Chronic kidney disease (CKD), stage V Code(s): N18.5 - CHRONIC KIDNEY DISEASE, STAGE 5 (7) Chronic anticoagulation Code(s): Z79.01 - [employer]SEM[employer]ER (CURRENT) USE OF 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 (8) 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 Code(s): E11.9 - TYPE 2 DIABETES MELLITUS WITHOUT COMPLICATIONS Qualifiers: 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 type: type 2 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 alf insulin use: with alf use 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 complication detail: with peripheral angiopathy with gangrene (9) ESRD (end stage renal disease) Code(s): N18.6 - END STAGE RENAL DISEASE (10) Chronic kidney disease on chronic dialysis Code(s): N18.6 - END STAGE RENAL DISEASE; Z99.2 - DEPENDENCE ON RENAL DIALYSIS (11) HTN (hypertension) Code(s): I10 - ESSENTIAL (PRIMARY) HYPERTENSION Qualifiers: Hypertension type: essential hypertension Qualified Code(s): I10 - Essential (primary) hypertension (12) ICD (implantable cardioverter-defibrillator) in place Code(s): Z95.810 - PRESENCE OF AUTOMATIC (IMPLANTABLE) CARDIAC DEFIBRILLATOR (13) Osteomyelitis Code(s): M86.9 - OSTEOMYELITIS, UNSPECIFIED Qualifiers: Osteomyelitis type: other Osteomyelitis location: foot Laterality: right Qualified Code(s): M86.8X7 - Other osteomyelitis, ankle and foot (14) Status post peripheral artery angioplasty Code(s): Z98.62 - PERIPHERAL VASCULAR ANGIOPLASTY STATUS
[2017-12-29 13:55] LABS: ANION GAP 13 MMOL/L (8-16); BLOOD UREA NITROGEN 16 mg/dL (7-18); CALCIUM 8.9 mg/dL (8.5-10.1); CHLORIDE 96 mmol/L (98-107); CO2 24 mmol/L (21-32); CREATININE 3.9 mg/dL (0.55-1.3); GLUCOSE,RANDOM 99 mg/dL (74-106); SODIUM 133 mmol/L (136-145)
--- NOTE | 2017-12-29 14:00 | PN ---
Progress Note (short form) - Note Progress Note: covering dr prasad pt seen in dialysys c/o chills Current Medications Acetaminophen (Tylenol -) 325 mg PO Q8H PRN PRN Reason: PAIN SCALE 6-10 Last Admin: 12/28/17 09:22 Dose: 325 mg Heparin Sodium (Porcine) (Heparin -) 1,000 unit IVPUSH PRN PRN PRN Reason: Heparin Last Admin: 12/28/17 06:41 Dose: 1,000 unit Heparin Sodium (Porcine) (Heparin -) 5,000 unit IVPUSH PRN PRN PRN Reason: Heparin Hydromorphone HCl (Dilaudid Vial -) 2 mg IVPB Q3H PRN PRN Reason: PAIN LEVEL 6-10 Last Admin: 12/29/17 09:44 Dose: 2 mg HEPARIN SOD,PORK IN 0.45% NACL (Heparin-1/2ns 25,000 Units/500) 25,000 units in 500 mls @ 20 mls/hr IVPB TITR [facility]; Protocol Last Admin: 12/28/17 15:51 Dose: 1,000 units/hr, 20 mls/hr Clindamycin Phosphate (Cleocin 300 Mg Premix Ivpb) 300 mg in 50 mls @ 100 mls/ hr IVPB Q8H-IV [facility]; Protocol Last Admin: 12/29/17 02:42 Dose: 100 mls/hr Insulin Aspart (Novolog Vial Sliding Scale -) 1 vial SQ ACHS [facility]; Protocol Last Admin: 12/29/17 06:22 Dose: Not Given Latanoprost (Xalatan 0.005% Eye Drops -) 1 drop OD HS [facility] Last Admin: 12/28/17 22:53 Dose: 1 drop Levothyroxine Sodium (Synthroid -) 75 mcg PO 0700 [facility] Last Admin: 12/29/17 06:22 Dose: 75 mcg Metoprolol Succinate (Toprol Xl -) 12.5 mg PO DAILY [facility] Last Admin: 12/29/17 09:45 Dose: 12.5 mg Multivit/Ca Carb/B Cmplx/FA/Prenat (Nephro-Fer -) 1 tablet PO DAILY [facility] Last Admin: 12/29/17 09:45 Dose: 1 tablet Polyethylene Glycol (Miralax (For Daily Use) -) 17 gm PO BID [facility] Last Admin: 12/28/17 22:54 Dose: 17 gm Sacubitril/Valsartan (Entresto 24 Mg-26 Mg Tablet) 1 tab PO BID [facility] Last Admin: 12/28/17 22:53 Dose: Not Given Senna (Senna -) 2 tab PO HS [facility] Last Admin: 12/28/17 22:52 Dose: 2 tab Sitagliptin Phosphate (Januvia -) 25 mg PO 0700 [facility] Last Admin: 12/29/17 06:22 Dose: 25 mg Thiamine HCl (Vitamin B1 -) 100 mg PO DAILY [facility] Last Admin: 12/29/17 09:45 Dose: 100 mg Vancomycin HCl (Vancomycin (Pre-Docked)) 1,000 mg IVPB TuThSa@1000 [facility] Last Vital Signs Temp Pulse Resp BP Pulse Ox 97.4 F L 88 18 126/69 100 12/29/17 11:20 12/29/17 12:25 12/29/17 12:25 12/29/17 12:25 12/28/17 21:00 IMP chills on hd on vancomycin and clinda Plan- will do blood cultures x 2
[2017-12-29 14:13] LABS: HBSAG SCREEN Negative (Negative); HEP B CORE AB, TOT Negative (Negative)
[2017-12-29] MEDS: SACUBITRIL/VALSARTAN 24 MG-26 MG TABLET PO SCH ×2 (16:05→22:04)
[2017-12-29] MEDS: POLYETHYLENE GLYCOL 3350 119 GM BTL PO SCH ×2 (16:05→21:37)
[2017-12-29] MEDS: HEPARIN SOD,PORK IN 0.45% NACL 25,000 UNITS/500 ML INFUS.BAG IVPB SCH (17:07)
[2017-12-29] MEDS: LATANOPROST 0.005% OPHTH SOLN 2.5ML BOTTLE OD SCH (21:37)
[2017-12-29] MEDS: SENNOSIDES 8.6MG TABLET (FP) PO SCH (21:37)
[2017-12-29] MEDS ORDERED: MELATONIN 5 MG TABLETS PO ONE (23:30)
[2017-12-29] MEDS: HEPARIN NA (PORCINE) 5,000 UNITS/ML 1ML VIAL IVPUSH PRN (23:37)
[2017-12-30] MEDS ORDERED: PT OWN MED DRAWER 7, Y5N ONE ×5 (02:21→21:12)
[2017-12-30] MEDS: CLINDAMYCIN 300 MG PREMIX IVPB 300 MG/50 ML BAG IVPB SCH ×3 (02:33→18:56)
[2017-12-30] MEDS: HYDROmorphone HCl 2 MG/ML VIAL IVPB PRN ×4 (03:04→21:29)
[2017-12-30] MEDS: INSULIN SLIDING SCALE (NOVOLOG) 1 VIAL SQ SCH ×4 (06:14→21:27)
[2017-12-30] MEDS: LEVOTHYROXINE NA 75 MCG TABLET (FP) PO SCH (06:15)
[2017-12-30] MEDS: sitaGLIPtin PHOSPHATE 25 MG TABLET (FP) PO SCH (06:16)
[2017-12-30 06:58] LABS: BASO % 0.4 % (0-2.0); HEMATOCRIT 28.5 % (35.4-49); HEMOGLOBIN 8.6 GM/dL (11.7-16.9); LYMPH % 12.7 % (8-40); MCH 27.1 pg (25.7-33.7); MCHC 30.2 g/dl (32.0-35.9); MEAN CELL VOLUME 89.8 fl (80-96); MEAN PLT VOLUME 8.6 fl (7.5-11.1); NEUT % 70.9 % (42.8-82.8); PLATELET COUNT 203 K/MM3 (134-434); RBC 3.17 M/mm3 (4.00-5.60); RDW 19.6 % (11.9-15.9); WHITE BLOOD COUNT 8.3 K/mm3 (4.0-10.0)
[2017-12-30 07:54] LABS: ALBUMIN 2.3 g/dl (3.4-5.0); ALK PHOS 230 U/L (45-117); ANION GAP 10 MMOL/L (8-16); BILIRUBIN,TOTAL 1.2 mg/dL (0.2-1); BLOOD UREA NITROGEN 11 mg/dL (7-18); CALCIUM 8.6 mg/dL (8.5-10.1); CHLORIDE 97 mmol/L (98-107); CO2 28 mmol/L (21-32); CREATININE 3.4 mg/dL (0.55-1.3); GLUCOSE,RANDOM 84 mg/dL (74-106); POTASSIUM 3.4 mmol/L (3.5-5.1); SGOT/AST 31 U/L (15-37); SGPT/ALT 16 U/L (13-61); SODIUM 135 mmol/L (136-145); TOT PROT 7.8 g/dl (6.4-8.2)
[2017-12-30] MEDS: THIAMINE HCL 100 MG TABLET (FP) PO SCH (10:22)
[2017-12-30] MEDS: VANCOMYCIN 1 GRAM (PRE-DOCKED) 1,000 MG/250 ML BAG IVPB SCH (10:22)
[2017-12-30] MEDS: VITAMIN B COMP W-C 1 EA TABLET PO SCH (10:22)
[2017-12-30] MEDS: POLYETHYLENE GLYCOL 3350 119 GM BTL PO SCH ×2 (10:25→21:30)
--- NOTE | 2017-12-30 10:43 | PN ---
Progress Note, Physician History of Present Illness: Denies fevers, chills, chest pain, SOB or palpitations, paroxysmal nocturnal dyspnea or orthopnea Coil Placer: Dr. Ghassan Durant - Current Medication List Current Medications: Active Medications Acetaminophen (Tylenol -) 325 mg PO Q8H PRN PRN Reason: PAIN SCALE 6-10 Last Admin: 12/28/17 09:22 Dose: 325 mg Heparin Sodium (Porcine) (Heparin -) 1,000 unit IVPUSH PRN PRN PRN Reason: Heparin Last Admin: 12/28/17 06:41 Dose: 1,000 unit Heparin Sodium (Porcine) (Heparin -) 5,000 unit IVPUSH PRN PRN PRN Reason: Heparin Last Admin: 12/29/17 23:37 Dose: 5,000 unit Hydromorphone HCl (Dilaudid Vial -) 2 mg IVPB Q3H PRN PRN Reason: PAIN LEVEL 6-10 Last Admin: 12/30/17 10:21 Dose: 2 mg HEPARIN SOD,PORK IN 0.45% NACL (Heparin-1/2ns 25,000 Units/500) 25,000 units in 500 mls @ 20 mls/hr IVPB TITR [facility]; Protocol Last Titration: 12/29/17 23:42 Dose: 1,450 units/hr, 29 mls/hr Clindamycin Phosphate (Cleocin 300 Mg Premix Ivpb) 300 mg in 50 mls @ 100 mls/ hr IVPB Q8H-IV [facility]; Protocol Last Admin: 12/30/17 10:22 Dose: 100 mls/hr Insulin Aspart (Novolog Vial Sliding Scale -) 1 vial SQ ACHS [facility]; Protocol Last Admin: 12/30/17 06:14 Dose: Not Given Latanoprost (Xalatan 0.005% Eye Drops -) 1 drop OD HS [facility] Last Admin: 12/29/17 21:37 Dose: 1 drop Levothyroxine Sodium (Synthroid -) 75 mcg PO 0700 [facility] Last Admin: 12/30/17 06:15 Dose: 75 mcg Metoprolol Succinate (Toprol Xl -) 12.5 mg PO DAILY [facility] Last Admin: 12/29/17 09:45 Dose: 12.5 mg Multivit/Ca Carb/B Cmplx/FA/Prenat (Nephro-Fer -) 1 tablet PO DAILY [facility] Last Admin: 12/30/17 10:22 Dose: 1 tablet Polyethylene Glycol (Miralax (For Daily Use) -) 17 gm PO BID [facility] Last Admin: 12/30/17 10:25 Dose: 17 gm Sacubitril/Valsartan (Entresto 24 Mg-26 Mg Tablet) 1 tab PO BID [facility] Last Admin: 12/29/17 22:04 Dose: 1 tab Senna (Senna -) 2 tab PO HS [facility] Last Admin: 12/29/17 21:37 Dose: 2 tab Sitagliptin Phosphate (Januvia -) 25 mg PO 0700 [facility] Last Admin: 12/30/17 06:16 Dose: 25 mg Thiamine HCl (Vitamin B1 -) 100 mg PO DAILY [facility] Last Admin: 12/30/17 10:22 Dose: 100 mg Vancomycin HCl (Vancomycin (Pre-Docked)) 1,000 mg IVPB TuThSa@1000 [facility] Last Admin: 12/30/17 10:22 Dose: 1,000 mg - Objective Vital Signs: Vital Signs Temperature 97.8 F 12/30/17 10:00 Pulse Rate 67 12/30/17 10:00 Respiratory Rate 18 12/30/17 10:00 Blood Pressure 86/50 L 12/30/17 10:00 O2 Sat by Pulse Oximetry (%) 100 12/29/17 21:00 Constitutional: Yes: No Distress, Calm, Thin Neck: Yes: Supple Cardiovascular: Yes: Regular Rate and Rhythm Respiratory: Yes: Regular, Diminished, On Nasal O2 Gastrointestinal: Yes: Normal Bowel Sounds, Soft Extremities: Yes: Amputation Edema: Yes Edema: RLE: Trace Labs: CBC, BMP 12/30/17 05:30 12/30/17 05:30 INR, PTT INR 1.54 (0.83-1.09) H 12/27/17 06:30 Problem List - Problems (1) Chronic kidney disease on chronic dialysis Code(s): N18.6 - END STAGE RENAL DISEASE; Z99.2 - DEPENDENCE ON RENAL DIALYSIS (2) Gangrene of toe of right foot Code(s): I96 - GANGRENE, NOT ELSEWHERE CLASSIFIED (3) Amputated toe of right foot Code(s): Z89.421 - ACQUIRED ABSENCE OF OTHER RIGHT TOE(S) (4) Atrial fibrillation Code(s): I48.91 - UNSPECIFIED ATRIAL FIBRILLATION Qualifiers: Atrial fibrillation type: permanent Qualified Code(s): I48.2 - Chronic atrial fibrillation (5) Cardiomyopathy Code(s): I42.9 - CARDIOMYOPATHY, UNSPECIFIED Qualifiers: Cardiomyopathy type: unspecified Qualified Code(s): I42.9 - Cardiomyopathy , unspecified (6) Chronic anticoagulation Code(s): Z79.01 - FPC (CURRENT) USE OF 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 (7) 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 Code(s): E11.9 - TYPE 2 DIABETES MELLITUS WITHOUT COMPLICATIONS Qualifiers: 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 type: type 2 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 residential insulin use: with long term care administrator use 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 complication detail: with peripheral angiopathy with gangrene (8) ESRD (end stage renal disease) Code(s): N18.6 - END STAGE RENAL DISEASE (9) Hypothyroid Code(s): E03.9 - HYPOTHYROIDISM, UNSPECIFIED Qualifiers: Hypothyroidism type: unspecified Qualified Code(s): E03.9 - Hypothyroidism , unspecified (10) ICD (implantable cardioverter-defibrillator) in place Code(s): Z95.810 - PRESENCE OF AUTOMATIC (IMPLANTABLE) CARDIAC DEFIBRILLATOR (11) Open wound of foot Code(s): S91.309A - UNSPECIFIED OPEN WOUND, UNSPECIFIED FOOT, INITIAL ENCOUNTER Qualifiers: Encounter type: subsequent encounter Laterality: right Qualified Code(s) : S91.301D - Unspecified open wound, right foot, subsequent encounter (12) Pericardial effusion Code(s): I31.3 - PERICARDIAL EFFUSION (NONINFLAMMATORY) (13) Status post peripheral artery angioplasty Code(s): Z98.62 - PERIPHERAL VASCULAR ANGIOPLASTY STATUS (14) Pre-operative cardiovascular examination Code(s): Z01.810 - ENCOUNTER FOR PREPROCEDURAL CARDIOVASCULAR EXAMINATION Assessment/Plan 09/12/2017 Echo: Moderate pericardial effusion, no tamponade, mildly dilated LV with severely decreased LV fxn, mild-mod dilated RV with severely decreased RV fxn, mod-severe MUKUL, mild MR, mild-mod TR, mild AR 10/05/2017 Echo: Moderately dilated with severely decreased LV fxn, RV dilated with severely decreased RV fxn, mod LAE, mild MR, mod TR, mild AR, mod pericardial effusion similar to previous 1. Peripheral artery disease and gangrene right forefoot post right tibial revacularization and debridement of bone and soft tissue with toe amputations, wound vac and HBO2 planned for right TMA vs BKA - pre-op CV evaluation 2. Ischemic dilated cardiomyopathy with chronic class I-II NYHA classification LV failure, compensated/euvolemic, post prophylactic ICD implant 3. CAD post NM with evidence of demand ischemic injury angina pectoris, clinically stable 4. Persistent atrial fibrillation [id number] score of 3-4 on Coumadin with subtherapeutic INR 5. Pericardial effusion probably uremic pericarditis, moderate in severity/ unchanged 6. 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 7. Hypothyroidism 8. History of PTE 9. ESRD on HD 10. History of colon cancer PLAN: 1. Empiric antibiotics course and analgesia as needed per the primary team 2. HD as per renal service and replete K 3. Hold Plavix 75 qd and coumadin and continue Heparin gtt pending formal TMA vs BKA with close monitoring of CBC 4. Continue Toprol XL 12.5 qd and titrate as hemodynamics permit/tolerate 5. Continue Entresto 24/26 bid and titrate as hemodynamics permit/tolerate 6. Consider Jardiance for decreased CV event risk 7. Given absence of symptoms of acute coronary syndrome, decompensated CHF or malignant arrhythmia, may proceed with right TMA vs BKA from CV-standpoint once INR is acceptable. May have to hold Toprol XL and Entresto day of surgery for hemodynamic reasons Coil Placer: Dr. Ghassan Durant
[2017-12-30] MEDS: metoPROLOL SUCCINATE 25 MG TAB.SR.24H (FP) PO SCH (11:14)
[2017-12-30] MEDS: SACUBITRIL/VALSARTAN 24 MG-26 MG TABLET PO SCH ×2 (11:49→22:16)
--- NOTE | 2017-12-30 12:42 | PN ---
Progress Note (short form) - Note Progress Note: Right foot and leg edema much improved. Wounds with less drainage, toe unchanged Will continue active fluid removal on dialysis and elevation and compression wrapping to foot. Radiology failed to perform vascular lab testing and will not do it over weekend. TMA to be scheduled after Doppler/PVR done. Problem List - Problems (1) Gangrene of toe of right foot Code(s): I96 - GANGRENE, NOT ELSEWHERE CLASSIFIED
[2017-12-30] MEDS: HEPARIN NA (PORCINE) 5,000 UNITS/ML 1ML VIAL IVPUSH PRN (13:26)
[2017-12-30] MEDS: HEPARIN SOD,PORK IN 0.45% NACL 25,000 UNITS/500 ML INFUS.BAG IVPB SCH (13:28)
--- NOTE | 2017-12-30 13:53 | PN ---
Progress Note, Physician History of Present Illness: patient stable no new issues final plan awaited - Current Medication List Current Medications: Active Medications Acetaminophen (Tylenol -) 325 mg PO Q8H PRN PRN Reason: PAIN SCALE 6-10 Last Admin: 12/28/17 09:22 Dose: 325 mg Heparin Sodium (Porcine) (Heparin -) 1,000 unit IVPUSH PRN PRN PRN Reason: Heparin Last Admin: 12/30/17 13:26 Dose: 1,000 unit Heparin Sodium (Porcine) (Heparin -) 5,000 unit IVPUSH PRN PRN PRN Reason: Heparin Last Admin: 12/29/17 23:37 Dose: 5,000 unit Hydromorphone HCl (Dilaudid Vial -) 2 mg IVPB Q3H PRN PRN Reason: PAIN LEVEL 6-10 Last Admin: 12/30/17 10:21 Dose: 2 mg HEPARIN SOD,PORK IN 0.45% NACL (Heparin-1/2ns 25,000 Units/500) 25,000 units in 500 mls @ 20 mls/hr IVPB TITR [facility]; Protocol Last Admin: 12/30/17 13:28 Dose: 1,550 units/hr, 31 mls/hr Clindamycin Phosphate (Cleocin 300 Mg Premix Ivpb) 300 mg in 50 mls @ 100 mls/ hr IVPB Q8H-IV [facility]; Protocol Last Admin: 12/30/17 10:22 Dose: 100 mls/hr Insulin Aspart (Novolog Vial Sliding Scale -) 1 vial SQ ACHS [facility]; Protocol Last Admin: 12/30/17 11:14 Dose: Not Given Latanoprost (Xalatan 0.005% Eye Drops -) 1 drop OD HS [facility] Last Admin: 12/29/17 21:37 Dose: 1 drop Levothyroxine Sodium (Synthroid -) 75 mcg PO 0700 [facility] Last Admin: 12/30/17 06:15 Dose: 75 mcg Metoprolol Succinate (Toprol Xl -) 12.5 mg PO DAILY [facility] Last Admin: 12/30/17 11:14 Dose: Not Given Multivit/Ca Carb/B Cmplx/FA/Prenat (Nephro-Fer -) 1 tablet PO DAILY [facility] Last Admin: 12/30/17 10:22 Dose: 1 tablet Polyethylene Glycol (Miralax (For Daily Use) -) 17 gm PO BID [facility] Last Admin: 12/30/17 10:25 Dose: 17 gm Sacubitril/Valsartan (Entresto 24 Mg-26 Mg Tablet) 1 tab PO BID [facility] Last Admin: 12/30/17 11:49 Dose: 1 tab Senna (Senna -) 2 tab PO HS [facility] Last Admin: 12/29/17 21:37 Dose: 2 tab Sitagliptin Phosphate (Januvia -) 25 mg PO 0700 [facility] Last Admin: 12/30/17 06:16 Dose: 25 mg Thiamine HCl (Vitamin B1 -) 100 mg PO DAILY [facility] Last Admin: 12/30/17 10:22 Dose: 100 mg Vancomycin HCl (Vancomycin (Pre-Docked)) 1,000 mg IVPB TuThSa@1000 [facility] Last Admin: 12/30/17 10:22 Dose: 1,000 mg - Objective Vital Signs: Vital Signs Temperature 97.8 F 12/30/17 10:00 Pulse Rate 67 12/30/17 10:00 Respiratory Rate 18 12/30/17 10:00 Blood Pressure 86/50 L 12/30/17 10:00 O2 Sat by Pulse Oximetry (%) 100 12/29/17 21:00 Constitutional: Yes: No Distress, Calm Cardiovascular: Yes: Regular Rate and Rhythm Respiratory: Yes: Regular, CTA Bilaterally Gastrointestinal: Yes: Normal Bowel Sounds, Soft Musculoskeletal: Yes: WNL Extremities: Yes: Other Wound/Incision: Yes: Dressing Dry and Intact Neurological: Yes: Alert, Oriented Psychiatric: Yes: Alert, Oriented Labs: CBC, BMP 12/30/17 05:30 12/30/17 05:30 INR, PTT INR 1.54 (0.83-1.09) H 12/27/17 06:30 Assessment/Plan Impression 1. ESRD 2. hx pericardial effusion 3. hx pneumopericardium 4. hypothyroidism 5. a-fib 6. hypotension 7. hx of colon cancer 8. CHF 9. DM 10. hx of PE 11. CAD 12. right great toe gangrene patient with rt toe gangrene plan continue vanco will restart zosyn as wound cx has changed wound care rest as per vascular
[2017-12-30] MEDS ORDERED: PIPERACILLIN/TAZOBACTAM 2.25 GM VIAL IVPB ONE (14:27)
[2017-12-30] MEDS ORDERED: DEXTROSE 5%-WATER - 50 ML IVPB ONE (14:27)
--- NOTE | 2017-12-30 14:34 | PN ---
Progress Note (short form) - Note Progress Note: covering dr prasad esrd pad ischemic foot fluid overload Current Medications Acetaminophen (Tylenol -) 325 mg PO Q8H PRN PRN Reason: PAIN SCALE 6-10 Last Admin: 12/28/17 09:22 Dose: 325 mg Heparin Sodium (Porcine) (Heparin -) 1,000 unit IVPUSH PRN PRN PRN Reason: Heparin Last Admin: 12/30/17 13:26 Dose: 1,000 unit Heparin Sodium (Porcine) (Heparin -) 5,000 unit IVPUSH PRN PRN PRN Reason: Heparin Last Admin: 12/29/17 23:37 Dose: 5,000 unit Hydromorphone HCl (Dilaudid Vial -) 2 mg IVPB Q3H PRN PRN Reason: PAIN LEVEL 6-10 Last Admin: 12/30/17 10:21 Dose: 2 mg HEPARIN SOD,PORK IN 0.45% NACL (Heparin-1/2ns 25,000 Units/500) 25,000 units in 500 mls @ 20 mls/hr IVPB TITR [facility]; Protocol Last Admin: 12/30/17 13:28 Dose: 1,550 units/hr, 31 mls/hr Clindamycin Phosphate (Cleocin 300 Mg Premix Ivpb) 300 mg in 50 mls @ 100 mls/ hr IVPB Q8H-IV [facility]; Protocol Last Admin: 12/30/17 10:22 Dose: 100 mls/hr Piperacillin Sod/Tazobactam (Sod 2.25 gm/ Dextrose) 50 mls @ 100 mls/hr IVPB Q8H-IV [facility]; Protocol Insulin Aspart (Novolog Vial Sliding Scale -) 1 vial SQ ACHS [facility]; Protocol Last Admin: 12/30/17 11:14 Dose: Not Given Latanoprost (Xalatan 0.005% Eye Drops -) 1 drop OD HS [facility] Last Admin: 12/29/17 21:37 Dose: 1 drop Levothyroxine Sodium (Synthroid -) 75 mcg PO 0700 [facility] Last Admin: 12/30/17 06:15 Dose: 75 mcg Metoprolol Succinate (Toprol Xl -) 12.5 mg PO DAILY [facility] Last Admin: 12/30/17 11:14 Dose: Not Given Multivit/Ca Carb/B Cmplx/FA/Prenat (Nephro-Fer -) 1 tablet PO DAILY [facility] Last Admin: 12/30/17 10:22 Dose: 1 tablet Polyethylene Glycol (Miralax (For Daily Use) -) 17 gm PO BID [facility] Last Admin: 12/30/17 10:25 Dose: 17 gm Sacubitril/Valsartan (Entresto 24 Mg-26 Mg Tablet) 1 tab PO BID [facility] Last Admin: 12/30/17 11:49 Dose: 1 tab Senna (Senna -) 2 tab PO HS [facility] Last Admin: 12/29/17 21:37 Dose: 2 tab Sitagliptin Phosphate (Januvia -) 25 mg PO 0700 [facility] Last Admin: 12/30/17 06:16 Dose: 25 mg Thiamine HCl (Vitamin B1 -) 100 mg PO DAILY [facility] Last Admin: 12/30/17 10:22 Dose: 100 mg Vancomycin HCl (Vancomycin (Pre-Docked)) 1,000 mg IVPB TuThSa@1000 [facility] Last Admin: 12/30/17 10:22 Dose: 1,000 mg Last Vital Signs Temp Pulse Resp BP Pulse Ox 97.8 F 67 18 86/50 L 100 12/30/17 10:00 12/30/17 10:00 12/30/17 10:00 12/30/17 10:00 12/29/17 21:00 no sob nad CBC, BMP 12/30/17 05:30 12/30/17 05:30 for dialysis later today blood cultures drawn yesterday- pending results on vancomycin and clinda Plan- HD for more fluid removal
[2017-12-30] MEDS: PIPERACILLIN/TAZOB 2.25 GM 2.25 GM in DEXTROSE 5%-WATER - 50 ML IVPB SCH ×2 (14:47→17:25)
[2017-12-30] MEDS ORDERED: EPOETIN ALFA 10,000 UNIT/1 ML VIAL IVPUSH ONE (15:45)
--- NOTE | 2017-12-30 16:29 | PN ---
Progress Note (short form) - Note Progress Note: patient seen and examined while in HD has been hypotensive -- requires albumin while on HD has required fluid bolus for BP support Vital Signs Period Temp Pulse Resp BP Sys/Yoon Pulse Ox Last 24 Hr 97.3 F-98.2 F 62-67 17-18 72-126/39-70 99-100 neck supple heart irreg S1/S2 +M2/6 lungs clear bilat abd - soft inc hernia midline Ext - right A-V fistula Forearm - HD access + bruit right leg swollen / tender calf -- foot dressing in place CBC, BMP 12/30/17 05:30 12/30/17 05:30 guiac Neg Microbiology 12/29/17 14:00 Blood - Post-Dialysis Blood Culture - Preliminary NO GROWTH OBTAINED AFTER 24 HOURS, INCUBATION TO CONTINUE FOR 4 DAYS. 12/29/17 14:00 Blood - Post-Dialysis Blood Culture - Preliminary NO GROWTH OBTAINED AFTER 24 HOURS, INCUBATION TO CONTINUE FOR 4 DAYS. 12/27/17 12:30 Foot - Right Gram Stain - Final 12/27/17 12:30 Foot - Right Wound Culture - Preliminary Mr S Aureus Non Lactose Fermenting Gnb 12/26/17 12:46 Blood - Peripheral Venous Blood Culture - Preliminary NO GROWTH OBTAINED AFTER 96 HOURS, INCUBATION TO CONTINUE FOR 1 DAYS. 12/26/17 12:46 Blood - Peripheral Venous Blood Culture - Preliminary NO GROWTH OBTAINED AFTER 96 HOURS, INCUBATION TO CONTINUE FOR 1 DAYS. Active Medications Acetaminophen (Tylenol -) 325 mg PO Q8H PRN PRN Reason: PAIN SCALE 6-10 Last Admin: 12/28/17 09:22 Dose: 325 mg Heparin Sodium (Porcine) (Heparin -) 1,000 unit IVPUSH PRN PRN PRN Reason: Heparin Last Admin: 12/30/17 13:26 Dose: 1,000 unit Heparin Sodium (Porcine) (Heparin -) 5,000 unit IVPUSH PRN PRN PRN Reason: Heparin Last Admin: 12/29/17 23:37 Dose: 5,000 unit Hydromorphone HCl (Dilaudid Vial -) 2 mg IVPB Q3H PRN PRN Reason: PAIN LEVEL 6-10 Last Admin: 12/30/17 10:21 Dose: 2 mg HEPARIN SOD,PORK IN 0.45% NACL (Heparin-1/2ns 25,000 Units/500) 25,000 units in 500 mls @ 20 mls/hr IVPB TITR [facility]; Protocol Last Admin: 12/30/17 13:28 Dose: 1,550 units/hr, 31 mls/hr Clindamycin Phosphate (Cleocin 300 Mg Premix Ivpb) 300 mg in 50 mls @ 100 mls/ hr IVPB Q8H-IV [facility]; Protocol Last Admin: 12/30/17 10:22 Dose: 100 mls/hr Piperacillin Sod/Tazobactam (Sod 2.25 gm/ Dextrose) 50 mls @ 100 mls/hr IVPB Q8H-IV [facility]; Protocol Last Admin: 12/30/17 14:47 Dose: 100 mls/hr Insulin Aspart (Novolog Vial Sliding Scale -) 1 vial SQ ACHS [facility]; Protocol Last Admin: 12/30/17 11:14 Dose: Not Given Latanoprost (Xalatan 0.005% Eye Drops -) 1 drop OD HS [facility] Last Admin: 12/29/17 21:37 Dose: 1 drop Levothyroxine Sodium (Synthroid -) 75 mcg PO 0700 [facility] Last Admin: 12/30/17 06:15 Dose: 75 mcg Metoprolol Succinate (Toprol Xl -) 12.5 mg PO DAILY [facility] Last Admin: 12/30/17 11:14 Dose: Not Given Multivit/Ca Carb/B Cmplx/FA/Prenat (Nephro-Fer -) 1 tablet PO DAILY [facility] Last Admin: 12/30/17 10:22 Dose: 1 tablet Polyethylene Glycol (Miralax (For Daily Use) -) 17 gm PO BID [facility] Last Admin: 12/30/17 10:25 Dose: 17 gm Sacubitril/Valsartan (Entresto 24 Mg-26 Mg Tablet) 1 tab PO BID [facility] Last Admin: 12/30/17 11:49 Dose: 1 tab Senna (Senna -) 2 tab PO HS [facility] Last Admin: 12/29/17 21:37 Dose: 2 tab Sitagliptin Phosphate (Januvia -) 25 mg PO 0700 [facility] Last Admin: 12/30/17 06:16 Dose: 25 mg Thiamine HCl (Vitamin B1 -) 100 mg PO DAILY [facility] Last Admin: 12/30/17 10:22 Dose: 100 mg Vancomycin HCl (Vancomycin (Pre-Docked)) 1,000 mg IVPB TuThSa@1000 [facility] Last Admin: 12/30/17 10:22 Dose: 1,000 mg Assessment/Plan Assmt # hypotension have had to hold Bp meds continue to trend BP adjust meds as needed # right great toe gangrene - Abx per ID pain management await vasculat study surgery to schedule TMA cardiology clearance # osteomyelitis - elevated ESR /crp /alk phos # hyponatremia ( Na 128) resolved Na 135 # PVD s/p angioplasty bilat LE right LE done 1 yr ago pending further study -- schedule for TMA vs BKA # CKD5 on chronic HD TTS --HD per renal # DM on insulin / sliding scale # a fib -- a/c on coumadin - on hold continue heparin adjust per protocol #CAD # Cardiomyopathy s/p ICD # hypothyroid TSH # HFrEF Hx of EF 25% # anemia of chronic disease # hx of pericardial effusion - chronic ? echo ordered - moderate effision Cardio evaluation - seen by Dr Plasencia # hx of colon ca s/p resection # hx of PE - on a/c # hx of pneumopericardium Problem List - Problems (1) Gangrene of toe of right foot Code(s): I96 - GANGRENE, NOT ELSEWHERE CLASSIFIED (2) Diabetic foot ulcer Code(s): E11.621 - TYPE 2 DIABETES MELLITUS WITH FOOT ULCER; L97.509 - NON- PRESSURE CHRONIC ULCER OTH PRT UNSP FOOT W UNSP SEVERITY (3) Amputated toe of right foot Code(s): Z89.421 - ACQUIRED ABSENCE OF OTHER RIGHT TOE(S) (4) Atrial fibrillation Code(s): I48.91 - UNSPECIFIED ATRIAL FIBRILLATION Qualifiers: Atrial fibrillation type: permanent Qualified Code(s): I48.2 - Chronic atrial fibrillation (5) Cardiomyopathy Code(s): I42.9 - CARDIOMYOPATHY, UNSPECIFIED Qualifiers: Cardiomyopathy type: unspecified Qualified Code(s): I42.9 - Cardiomyopathy , unspecified (6) Chronic kidney disease (CKD), stage V Code(s): N18.5 - CHRONIC KIDNEY DISEASE, STAGE 5 (7) Chronic anticoagulation Code(s): Z79.01 - ALF (CURRENT) USE OF 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 (8) 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 Code(s): E11.9 - TYPE 2 DIABETES MELLITUS WITHOUT COMPLICATIONS Qualifiers: 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 type: type 2 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: 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 jail use 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 complication detail: with peripheral angiopathy with gangrene (9) ESRD (end stage renal disease) Code(s): N18.6 - END STAGE RENAL DISEASE (10) Chronic kidney disease on chronic dialysis Code(s): N18.6 - END STAGE RENAL DISEASE; Z99.2 - DEPENDENCE ON RENAL DIALYSIS (11) HTN (hypertension) Code(s): I10 - ESSENTIAL (PRIMARY) HYPERTENSION Qualifiers: Hypertension type: essential hypertension Qualified Code(s): I10 - Essential (primary) hypertension (12) ICD (implantable cardioverter-defibrillator) in place Code(s): Z95.810 - PRESENCE OF AUTOMATIC (IMPLANTABLE) CARDIAC DEFIBRILLATOR (13) Osteomyelitis Code(s): M86.9 - OSTEOMYELITIS, UNSPECIFIED Qualifiers: Osteomyelitis type: other Osteomyelitis location: foot Laterality: right Qualified Code(s): M86.8X7 - Other osteomyelitis, ankle and foot (14) Status post peripheral artery angioplasty Code(s): Z98.62 - PERIPHERAL VASCULAR ANGIOPLASTY STATUS
[2017-12-30] MEDS ORDERED: HYDROmorphone HCl 2 MG/ML VIAL IVPUSH PRN (20:58)
[2017-12-30] MEDS: SENNOSIDES 8.6MG TABLET (FP) PO SCH (21:28)
[2017-12-30] MEDS: LATANOPROST 0.005% OPHTH SOLN 2.5ML BOTTLE OD SCH (21:29)
[2017-12-30] MEDS: MELATONIN 5 MG TABLETS PO PRN (21:29)
[2017-12-31] MEDS ORDERED: PT OWN MED DRAWER 7, Y5N ONE ×2 (01:30→21:26)
[2017-12-31] MEDS: CLINDAMYCIN 300 MG PREMIX IVPB 300 MG/50 ML BAG IVPB SCH ×3 (02:07→17:24)
[2017-12-31] MEDS ORDERED: DEXTROSE 5%-WATER - 50 ML IVPB ONE ×2 (03:03→09:11)
[2017-12-31] MEDS ORDERED: PIPERACILLIN/TAZOBACTAM 2.25 GM VIAL IVPB ONE ×3 (03:03→17:19)
[2017-12-31] MEDS: PIPERACILLIN/TAZOB 2.25 GM 2.25 GM in DEXTROSE 5%-WATER - 50 ML IVPB SCH ×3 (03:08→17:25)
[2017-12-31] MEDS: HYDROmorphone HCl 2 MG/ML VIAL IVPB PRN ×4 (03:51→21:41)
[2017-12-31] MEDS: INSULIN SLIDING SCALE (NOVOLOG) 1 VIAL SQ SCH ×4 (06:32→21:33)
[2017-12-31] MEDS: LEVOTHYROXINE NA 75 MCG TABLET (FP) PO SCH (06:33)
[2017-12-31] MEDS: sitaGLIPtin PHOSPHATE 25 MG TABLET (FP) PO SCH (06:33)
[2017-12-31 08:03] LABS: HEMATOCRIT 28.8 % (35.4-49); HEMOGLOBIN 8.8 GM/dL (11.7-16.9); MCH 27.4 pg (25.7-33.7); MCHC 30.6 g/dl (32.0-35.9); MEAN CELL VOLUME 89.5 fl (80-96); PLATELET COUNT 210 K/MM3 (134-434); RBC 3.22 M/mm3 (4.00-5.60); RDW 20.1 % (11.9-15.9); WHITE BLOOD COUNT 9.9 K/mm3 (4.0-10.0)
[2017-12-31] MEDS: HEPARIN NA (PORCINE) 5,000 UNITS/ML 1ML VIAL IVPUSH PRN (08:51)
[2017-12-31] MEDS: HEPARIN SOD,PORK IN 0.45% NACL 25,000 UNITS/500 ML INFUS.BAG IVPB SCH ×3 (08:52→15:47)
[2017-12-31] MEDS: VITAMIN B COMP W-C 1 EA TABLET PO SCH (09:16)
[2017-12-31] MEDS: THIAMINE HCL 100 MG TABLET (FP) PO SCH (09:16)
[2017-12-31] MEDS: SACUBITRIL/VALSARTAN 24 MG-26 MG TABLET PO SCH ×2 (09:16→21:33)
[2017-12-31] MEDS: metoPROLOL SUCCINATE 25 MG TAB.SR.24H (FP) PO SCH (09:17)
[2017-12-31] MEDS: POLYETHYLENE GLYCOL 3350 119 GM BTL PO SCH ×2 (09:22→21:34)
--- NOTE | 2017-12-31 13:07 | PN ---
Progress Note, Physician History of Present Illness: stable pain better still has pain otherwise no complaint - Current Medication List Current Medications: Active Medications Acetaminophen (Tylenol -) 325 mg PO Q8H PRN PRN Reason: PAIN SCALE 6-10 Last Admin: 12/28/17 09:22 Dose: 325 mg Heparin Sodium (Porcine) (Heparin -) 1,000 unit IVPUSH PRN PRN PRN Reason: Heparin Last Admin: 12/30/17 13:26 Dose: 1,000 unit Heparin Sodium (Porcine) (Heparin -) 5,000 unit IVPUSH PRN PRN PRN Reason: Heparin Last Admin: 12/31/17 08:51 Dose: 5,000 unit Hydromorphone HCl (Dilaudid Vial -) 2 mg IVPB Q3H PRN PRN Reason: PAIN 1-5 Last Admin: 12/31/17 10:28 Dose: 2 mg HEPARIN SOD,PORK IN 0.45% NACL (Heparin-1/2ns 25,000 Units/500) 25,000 units in 500 mls @ 20 mls/hr IVPB TITR [facility]; Protocol Last Admin: 12/31/17 09:15 Dose: 1,400 units/hr, 28 mls/hr Clindamycin Phosphate (Cleocin 300 Mg Premix Ivpb) 300 mg in 50 mls @ 100 mls/ hr IVPB Q8H-IV [facility]; Protocol Last Admin: 12/31/17 09:15 Dose: 100 mls/hr Piperacillin Sod/Tazobactam (Sod 2.25 gm/ Dextrose) 50 mls @ 100 mls/hr IVPB Q8H-IV [facility]; Protocol Last Admin: 12/31/17 09:14 Dose: 100 mls/hr Insulin Aspart (Novolog Vial Sliding Scale -) 1 vial SQ ACHS [facility]; Protocol Last Admin: 12/31/17 12:23 Dose: Not Given Latanoprost (Xalatan 0.005% Eye Drops -) 1 drop OD HS [facility] Last Admin: 12/30/17 21:29 Dose: 1 drop Levothyroxine Sodium (Synthroid -) 75 mcg PO 0700 [facility] Last Admin: 12/31/17 06:33 Dose: 75 mcg Melatonin (Melatonin) 10 mg PO HS PRN PRN Reason: INSOMNIA Last Admin: 12/30/17 21:29 Dose: 10 mg Metoprolol Succinate (Toprol Xl -) 12.5 mg PO DAILY [facility] Last Admin: 12/31/17 09:17 Dose: 12.5 mg Multivit/Ca Carb/B Cmplx/FA/Prenat (Nephro-Fer -) 1 tablet PO DAILY [facility] Last Admin: 12/31/17 09:16 Dose: 1 tablet Polyethylene Glycol (Miralax (For Daily Use) -) 17 gm PO BID [facility] Last Admin: 12/31/17 09:22 Dose: 17 gm Sacubitril/Valsartan (Entresto 24 Mg-26 Mg Tablet) 1 tab PO BID [facility] Last Admin: 12/31/17 09:16 Dose: 1 tab Senna (Senna -) 2 tab PO HS [facility] Last Admin: 12/30/17 21:28 Dose: 2 tab Sitagliptin Phosphate (Januvia -) 25 mg PO 0700 [facility] Last Admin: 12/31/17 06:33 Dose: 25 mg Thiamine HCl (Vitamin B1 -) 100 mg PO DAILY [facility] Last Admin: 12/31/17 09:16 Dose: 100 mg Vancomycin HCl (Vancomycin (Pre-Docked)) 1,000 mg IVPB TuThSa@1000 [facility] Last Admin: 12/30/17 10:22 Dose: 1,000 mg - Objective Vital Signs: Vital Signs Temperature 98.4 F 12/31/17 10:00 Pulse Rate 68 12/31/17 10:00 Respiratory Rate 20 12/31/17 10:00 Blood Pressure 100/62 12/31/17 10:00 O2 Sat by Pulse Oximetry (%) 96 12/31/17 11:58 Constitutional: Yes: No Distress, Calm Cardiovascular: Yes: Regular Rate and Rhythm Respiratory: Yes: Regular, CTA Bilaterally Gastrointestinal: Yes: Normal Bowel Sounds, Soft Musculoskeletal: Yes: WNL Extremities: Yes: Other Wound/Incision: Yes: Dressing Dry and Intact Neurological: Yes: Alert, Oriented Psychiatric: Yes: Alert, Oriented Labs: CBC, BMP 12/31/17 07:30 12/30/17 05:30 INR, PTT INR 1.54 (0.83-1.09) H 12/27/17 06:30 Assessment/Plan Impression 1. ESRD 2. hx pericardial effusion 3. hx pneumopericardium 4. hypothyroidism 5. a-fib 6. hypotension 7. hx of colon cancer 8. CHF 9. DM 10. hx of PE 11. CAD 12. right great toe gangrene patient with rt toe gangrene plan continue vanco await for identification of the bacteria await for final plan from vascular rest as per the team
--- NOTE | 2017-12-31 13:52 | PN ---
Progress Note (short form) - Note Progress Note: patient seen and examined in room has been hypotensive -- requires albumin while on HD has required fluid bolus for BP support Vital Signs Period Temp Pulse Resp BP Sys/Yoon Pulse Ox Last 24 Hr 98.1 F-99.2 F 61-78 16-20 82-126/46-70 96-97 neck supple heart irreg S1/S2 +M2/6 lungs clear bilat abd - soft inc hernia midline Ext - right A-V fistula Forearm - HD access + bruit right leg swollen / tender calf -- foot dressing in place CBC, BMP 12/31/17 07:30 12/30/17 05:30 CBC, BMP 12/30/17 05:30 12/30/17 05:30 guiac Neg Microbiology 12/26/17 12:46 Blood - Peripheral Venous Blood Culture - Final NO GROWTH AFTER 5 DAYS INCUBATION 12/26/17 12:46 Blood - Peripheral Venous Blood Culture - Final NO GROWTH AFTER 5 DAYS INCUBATION 12/27/17 12:30 Foot - Right Gram Stain - Final 12/27/17 12:30 Foot - Right Wound Culture - Preliminary Mr S Aureus Non Lactose Fermenting Gnb 12/29/17 14:00 Blood - Post-Dialysis Blood Culture - Preliminary NO GROWTH OBTAINED AFTER 24 HOURS, INCUBATION TO CONTINUE FOR 4 DAYS. 12/29/17 14:00 Blood - Post-Dialysis Blood Culture - Preliminary NO GROWTH OBTAINED AFTER 24 HOURS, INCUBATION TO CONTINUE FOR 4 DAYS. \ Active Medications Acetaminophen (Tylenol -) 325 mg PO Q8H PRN PRN Reason: PAIN SCALE 6-10 Last Admin: 12/28/17 09:22 Dose: 325 mg Heparin Sodium (Porcine) (Heparin -) 1,000 unit IVPUSH PRN PRN PRN Reason: Heparin Last Admin: 12/30/17 13:26 Dose: 1,000 unit Heparin Sodium (Porcine) (Heparin -) 5,000 unit IVPUSH PRN PRN PRN Reason: Heparin Last Admin: 12/31/17 08:51 Dose: 5,000 unit Hydromorphone HCl (Dilaudid Vial -) 2 mg IVPB Q3H PRN PRN Reason: PAIN 1-5 Last Admin: 12/31/17 10:28 Dose: 2 mg HEPARIN SOD,PORK IN 0.45% NACL (Heparin-1/2ns 25,000 Units/500) 25,000 units in 500 mls @ 20 mls/hr IVPB TITR [facility]; Protocol Last Admin: 12/31/17 09:15 Dose: 1,400 units/hr, 28 mls/hr Clindamycin Phosphate (Cleocin 300 Mg Premix Ivpb) 300 mg in 50 mls @ 100 mls/ hr IVPB Q8H-IV [facility]; Protocol Last Admin: 12/31/17 09:15 Dose: 100 mls/hr Piperacillin Sod/Tazobactam (Sod 2.25 gm/ Dextrose) 50 mls @ 100 mls/hr IVPB Q8H-IV [facility]; Protocol Last Admin: 12/31/17 09:14 Dose: 100 mls/hr Insulin Aspart (Novolog Vial Sliding Scale -) 1 vial SQ ACHS [facility]; Protocol Last Admin: 12/31/17 12:23 Dose: Not Given Latanoprost (Xalatan 0.005% Eye Drops -) 1 drop OD HS [facility] Last Admin: 12/30/17 21:29 Dose: 1 drop Levothyroxine Sodium (Synthroid -) 75 mcg PO 0700 [facility] Last Admin: 12/31/17 06:33 Dose: 75 mcg Melatonin (Melatonin) 10 mg PO HS PRN PRN Reason: INSOMNIA Last Admin: 12/30/17 21:29 Dose: 10 mg Metoprolol Succinate (Toprol Xl -) 12.5 mg PO DAILY [facility] Last Admin: 12/31/17 09:17 Dose: 12.5 mg Multivit/Ca Carb/B Cmplx/FA/Prenat (Nephro-Fer -) 1 tablet PO DAILY [facility] Last Admin: 12/31/17 09:16 Dose: 1 tablet Polyethylene Glycol (Miralax (For Daily Use) -) 17 gm PO BID [facility] Last Admin: 12/31/17 09:22 Dose: 17 gm Sacubitril/Valsartan (Entresto 24 Mg-26 Mg Tablet) 1 tab PO BID [facility] Last Admin: 12/31/17 09:16 Dose: 1 tab Senna (Senna -) 2 tab PO HS [facility] Last Admin: 12/30/17 21:28 Dose: 2 tab Sitagliptin Phosphate (Januvia -) 25 mg PO 0700 [facility] Last Admin: 12/31/17 06:33 Dose: 25 mg Thiamine HCl (Vitamin B1 -) 100 mg PO DAILY [facility] Last Admin: 12/31/17 09:16 Dose: 100 mg Vancomycin HCl (Vancomycin (Pre-Docked)) 1,000 mg IVPB TuThSa@1000 [facility] Last Admin: 12/30/17 10:22 Dose: 1,000 mg Assessment/Plan Assmt # hypotension have had to hold Bp meds continue to trend BP adjust meds as needed # right great toe gangrene - Abx per ID pain management await vasculat study surgery to schedule TMA cardiology clearance # osteomyelitis - elevated ESR /crp /alk phos Abx per ID # hyponatremia ( Na 128) resolved Na 135 # PVD s/p angioplasty bilat LE right LE done 1 yr ago pending further study -- schedule for TMA vs BKA # CKD5 on chronic HD TTS --HD per renal # DM on insulin / sliding scale # a fib -- a/c on coumadin - on hold continue heparin adjust per protocol #CAD # Cardiomyopathy s/p ICD # hypothyroid TSH # HFrEF Hx of EF 25% # anemia of chronic disease # hx of pericardial effusion - chronic ? echo ordered - moderate effision Cardio evaluation - seen by Dr Plasencia # hx of colon ca s/p resection # hx of PE - on a/c # hx of pneumopericardium Problem List - Problems (1) Gangrene of toe of right foot Code(s): I96 - GANGRENE, NOT ELSEWHERE CLASSIFIED (2) Diabetic foot ulcer Code(s): E11.621 - TYPE 2 DIABETES MELLITUS WITH FOOT ULCER; L97.509 - NON- PRESSURE CHRONIC ULCER OTH PRT UNSP FOOT W UNSP SEVERITY (3) Amputated toe of right foot Code(s): Z89.421 - ACQUIRED ABSENCE OF OTHER RIGHT TOE(S) (4) Atrial fibrillation Code(s): I48.91 - UNSPECIFIED ATRIAL FIBRILLATION Qualifiers: Atrial fibrillation type: permanent Qualified Code(s): I48.2 - Chronic atrial fibrillation (5) Cardiomyopathy Code(s): I42.9 - CARDIOMYOPATHY, UNSPECIFIED Qualifiers: Cardiomyopathy type: unspecified Qualified Code(s): I42.9 - Cardiomyopathy , unspecified (6) Chronic kidney disease (CKD), stage V Code(s): N18.5 - CHRONIC KIDNEY DISEASE, STAGE 5 (7) Chronic anticoagulation Code(s): Z79.01 - HALF-WAY (CURRENT) USE OF 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 (8) 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 Code(s): E11.9 - TYPE 2 DIABETES MELLITUS WITHOUT COMPLICATIONS Qualifiers: 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 type: type 2 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: with long chain beamer use 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 complication detail: with peripheral angiopathy with gangrene (9) ESRD (end stage renal disease) Code(s): N18.6 - END STAGE RENAL DISEASE (10) Chronic kidney disease on chronic dialysis Code(s): N18.6 - END STAGE RENAL DISEASE; Z99.2 - DEPENDENCE ON RENAL DIALYSIS (11) HTN (hypertension) Code(s): I10 - ESSENTIAL (PRIMARY) HYPERTENSION Qualifiers: Hypertension type: essential hypertension Qualified Code(s): I10 - Essential (primary) hypertension (12) ICD (implantable cardioverter-defibrillator) in place Code(s): Z95.810 - PRESENCE OF AUTOMATIC (IMPLANTABLE) CARDIAC DEFIBRILLATOR (13) Osteomyelitis Code(s): M86.9 - OSTEOMYELITIS, UNSPECIFIED Qualifiers: Osteomyelitis type: other Osteomyelitis location: foot Laterality: right Qualified Code(s): M86.8X7 - Other osteomyelitis, ankle and foot (14) Status post peripheral artery angioplasty Code(s): Z98.62 - PERIPHERAL VASCULAR ANGIOPLASTY STATUS
--- NOTE | 2017-12-31 19:05 | PN ---
Progress Note (short form) - Note Progress Note: covering dr prasad esrd pad ischemic foot fluid overload Current Medications Acetaminophen (Tylenol -) 325 mg PO Q8H PRN PRN Reason: PAIN SCALE 6-10 Last Admin: 12/28/17 09:22 Dose: 325 mg Heparin Sodium (Porcine) (Heparin -) 1,000 unit IVPUSH PRN PRN PRN Reason: Heparin Last Admin: 12/30/17 13:26 Dose: 1,000 unit Heparin Sodium (Porcine) (Heparin -) 5,000 unit IVPUSH PRN PRN PRN Reason: Heparin Last Admin: 12/31/17 08:51 Dose: 5,000 unit Hydromorphone HCl (Dilaudid Vial -) 2 mg IVPB Q3H PRN PRN Reason: PAIN 1-5 Last Admin: 12/31/17 14:42 Dose: 2 mg HEPARIN SOD,PORK IN 0.45% NACL (Heparin-1/2ns 25,000 Units/500) 25,000 units in 500 mls @ 20 mls/hr IVPB TITR [facility]; Protocol Last Admin: 12/31/17 15:47 Dose: 1,400 units/hr, 28 mls/hr Clindamycin Phosphate (Cleocin 300 Mg Premix Ivpb) 300 mg in 50 mls @ 100 mls/ hr IVPB Q8H-IV [facility]; Protocol Last Admin: 12/31/17 17:24 Dose: 100 mls/hr Piperacillin Sod/Tazobactam (Sod 2.25 gm/ Dextrose) 50 mls @ 100 mls/hr IVPB Q8H-IV [facility]; Protocol Last Admin: 12/31/17 17:25 Dose: 100 mls/hr Insulin Aspart (Novolog Vial Sliding Scale -) 1 vial SQ ACHS [facility]; Protocol Last Admin: 12/31/17 16:41 Dose: Not Given Latanoprost (Xalatan 0.005% Eye Drops -) 1 drop OD HS [facility] Last Admin: 12/30/17 21:29 Dose: 1 drop Levothyroxine Sodium (Synthroid -) 75 mcg PO 0700 [facility] Last Admin: 12/31/17 06:33 Dose: 75 mcg Melatonin (Melatonin) 10 mg PO HS PRN PRN Reason: INSOMNIA Last Admin: 12/30/17 21:29 Dose: 10 mg Metoprolol Succinate (Toprol Xl -) 12.[address] [facility] Last Admin: 12/31/17 09:17 Dose: 12.5 mg Multivit/Ca Carb/B Cmplx/FA/Prenat (Nephro-Fer -) [address] [facility] Last Admin: 12/31/17 09:16 Dose: 1 tablet Polyethylene Glycol (Miralax (For Daily Use) -) [address] [facility] Last Admin: 12/31/17 09:22 Dose: 17 gm Sacubitril/Valsartan (Entresto 24 Mg-26 Mg Tablet) [address] [facility] Last Admin: 12/31/17 09:16 Dose: 1 tab Senna (Senna -) [address] [facility] Last Admin: 12/30/17 21:28 Dose: 2 tab Sitagliptin Phosphate (Januvia -) [address] [facility] Last Admin: 12/31/17 06:33 Dose: 25 mg Thiamine HCl (Vitamin B1 -) [address] [facility] Last Admin: 12/31/17 09:16 Dose: 100 mg Vancomycin HCl (Vancomycin (Pre-Docked)) 1,000 mg IVPB TuThSa@1000 [facility] Last Admin: 12/30/17 10:22 Dose: 1,000 mg Last Vital Signs Temp Pulse Resp BP Pulse Ox 98.4 F 68 20 100/62 96 12/31/17 10:00 12/31/17 10:00 12/31/17 10:00 12/31/17 10:00 12/31/17 11:58 no sob nad, lying flat Lungs clear Heart reg Abd soft nontender ext min edema CBC, BMP 12/30/17 05:30 12/30/17 05:30 for dialysis later today blood cultures drawn yesterday- pending results on vancomycin and clinda Plan- HD on monday
[2017-12-31] MEDS: SENNOSIDES 8.6MG TABLET (FP) PO SCH (21:32)
[2017-12-31] MEDS: LATANOPROST 0.005% OPHTH SOLN 2.5ML BOTTLE OD SCH (21:32)
[2017-12-31] MEDS: MELATONIN 5 MG TABLETS PO PRN (21:42)
[2018-01-01] MEDS ORDERED: DEXTROSE 5%-WATER - 50 ML IVPB ONE ×3 (01:04→19:22)
[2018-01-01] MEDS ORDERED: PIPERACILLIN/TAZOBACTAM 2.25 GM VIAL IVPB ONE ×3 (01:04→19:22)
[2018-01-01] MEDS: HYDROmorphone HCl 2 MG/ML VIAL IVPB PRN ×5 (01:08→19:57)
[2018-01-01] MEDS: CLINDAMYCIN 300 MG PREMIX IVPB 300 MG/50 ML BAG IVPB SCH ×3 (01:09→19:42)
[2018-01-01] MEDS: PIPERACILLIN/TAZOB 2.25 GM 2.25 GM in DEXTROSE 5%-WATER - 50 ML IVPB SCH ×3 (01:50→21:00)
[2018-01-01] MEDS: HEPARIN SOD,PORK IN 0.45% NACL 25,000 UNITS/500 ML INFUS.BAG IVPB SCH ×4 (05:41→23:00)
[2018-01-01] MEDS: INSULIN SLIDING SCALE (NOVOLOG) 1 VIAL SQ SCH ×4 (06:23→21:34)
[2018-01-01] MEDS: sitaGLIPtin PHOSPHATE 25 MG TABLET (FP) PO SCH (06:24)
[2018-01-01] MEDS: LEVOTHYROXINE NA 75 MCG TABLET (FP) PO SCH (06:24)
[2018-01-01 07:50] LABS: HEMATOCRIT 30.1 % (35.4-49); HEMOGLOBIN 9.1 GM/dL (11.7-16.9); MCH 27.3 pg (25.7-33.7); MCHC 30.3 g/dl (32.0-35.9); MEAN CELL VOLUME 90.1 fl (80-96); MEAN PLT VOLUME 8.8 fl (7.5-11.1); PLATELET COUNT 203 K/MM3 (134-434); RBC 3.35 M/mm3 (4.00-5.60); RDW 19.7 % (11.9-15.9); WHITE BLOOD COUNT 7.8 K/mm3 (4.0-10.0)
[2018-01-01] MEDS ORDERED: PT OWN MED DRAWER 7, Y5N ONE ×3 (09:17→23:51)
[2018-01-01] MEDS: VITAMIN B COMP W-C 1 EA TABLET PO SCH (09:22)
[2018-01-01] MEDS: THIAMINE HCL 100 MG TABLET (FP) PO SCH (09:22)
[2018-01-01] MEDS: POLYETHYLENE GLYCOL 3350 119 GM BTL PO SCH ×2 (09:23→21:34)
[2018-01-01] MEDS: SACUBITRIL/VALSARTAN 24 MG-26 MG TABLET PO SCH ×2 (09:23→21:34)
[2018-01-01] MEDS: metoPROLOL SUCCINATE 25 MG TAB.SR.24H (FP) PO SCH (09:23)
--- NOTE | 2018-01-01 11:17 | PN ---
Progress Note, Physician History of Present Illness: stable doing well awaiting final plan and reports vascular on case - Current Medication List Current Medications: Active Medications Acetaminophen (Tylenol -) 325 mg PO Q8H PRN PRN Reason: PAIN SCALE 6-10 Last Admin: 12/28/17 09:22 Dose: 325 mg Heparin Sodium (Porcine) (Heparin -) 1,000 unit IVPUSH PRN PRN PRN Reason: Heparin Last Admin: 12/30/17 13:26 Dose: 1,000 unit Heparin Sodium (Porcine) (Heparin -) 5,000 unit IVPUSH PRN PRN PRN Reason: Heparin Last Admin: 12/31/17 08:51 Dose: 5,000 unit Hydromorphone HCl (Dilaudid Vial -) 2 mg IVPB Q3H PRN PRN Reason: PAIN 1-5 Last Admin: 01/01/18 09:46 Dose: 2 mg HEPARIN SOD,PORK IN 0.45% NACL (Heparin-1/2ns 25,000 Units/500) 25,000 units in 500 mls @ 20 mls/hr IVPB TITR [facility]; Protocol Last Admin: 01/01/18 09:23 Dose: Not Given Clindamycin Phosphate (Cleocin 300 Mg Premix Ivpb) 300 mg in 50 mls @ 100 mls/ hr IVPB Q8H-IV [facility]; Protocol Last Admin: 01/01/18 09:22 Dose: 100 mls/hr Piperacillin Sod/Tazobactam (Sod 2.25 gm/ Dextrose) 50 mls @ 100 mls/hr IVPB Q8H-[facility]; Protocol Last Admin: 01/01/18 09:54 Dose: 100 mls/hr Insulin Aspart (Novolog Vial Sliding Scale -) 1 vial SQ ACHS [facility]; Protocol Last Admin: 01/01/18 06:23 Dose: Not Given Latanoprost (Xalatan 0.005% Eye Drops -) 1 drop OD HS [facility] Last Admin: 12/31/17 21:32 Dose: 1 drop Levothyroxine Sodium (Synthroid -) 75 mcg PO 0700 [facility] Last Admin: 01/01/18 06:24 Dose: 75 mcg Melatonin (Melatonin) 10 mg PO HS PRN PRN Reason: INSOMNIA Last Admin: 12/31/17 21:42 Dose: 10 mg Metoprolol Succinate (Toprol Xl -) 12.5 mg PO DAILY [facility] Last Admin: 01/01/18 09:23 Dose: 12.5 mg Multivit/Ca Carb/B Cmplx/FA/Prenat (Nephro-Fer -) 1 tablet PO DAILY [facility] Last Admin: 01/01/18 09:22 Dose: 1 tablet Polyethylene Glycol (Miralax (For Daily Use) -) 17 gm PO BID [facility] Last Admin: 01/01/18 09:23 Dose: Not Given Sacubitril/Valsartan (Entresto 24 Mg-26 Mg Tablet) 1 tab PO BID [facility] Last Admin: 01/01/18 09:23 Dose: 1 tab Senna (Senna -) 2 tab PO HS [facility] Last Admin: 12/31/17 21:32 Dose: 2 tab Sitagliptin Phosphate (Januvia -) 25 mg PO 0700 [facility] Last Admin: 01/01/18 06:24 Dose: 25 mg Thiamine HCl (Vitamin B1 -) 100 mg PO DAILY [facility] Last Admin: 01/01/18 09:22 Dose: 100 mg Vancomycin HCl (Vancomycin (Pre-Docked)) 1,000 mg IVPB TuThSa@1000 [facility] Last Admin: 12/30/17 10:22 Dose: 1,000 mg - Objective Vital Signs: Vital Signs Temperature 97.9 F 01/01/18 09:12 Pulse Rate 74 01/01/18 09:12 Respiratory Rate 20 01/01/18 09:12 Blood Pressure 94/55 L 01/01/18 09:12 O2 Sat by Pulse Oximetry (%) 97 12/31/17 21:00 Constitutional: Yes: No Distress, Calm Cardiovascular: Yes: Regular Rate and Rhythm Respiratory: Yes: Regular, CTA Bilaterally Gastrointestinal: Yes: Normal Bowel Sounds, Soft Musculoskeletal: Yes: WNL Extremities: Yes: Other Wound/Incision: Yes: Dressing Dry and Intact Neurological: Yes: Alert, Oriented Psychiatric: Yes: Alert, Oriented Labs: CBC, BMP 01/01/18 06:30 12/30/17 05:30 INR, PTT INR 1.54 (0.83-1.09) H 12/27/17 06:30 Assessment/Plan Impression 1. ESRD 2. hx pericardial effusion 3. hx pneumopericardium 4. hypothyroidism 5. a-fib 6. hypotension 7. hx of colon cancer 8. CHF 9. DM 10. hx of PE 11. CAD 12. right great toe gangrene patient with rt toe gangrene plan continue abx awaiting vascular plan await for sensitivities and bacteria rest as per the team
--- NOTE | 2018-01-01 12:54 | PN ---
Progress Note, Physician History of Present Illness: Denies fevers, chills, chest pain, SOB or palpitations, paroxysmal nocturnal dyspnea or orthopnea. Vascular plans right TMA after review of noninvasive vascular testing. Nitro Man: Dr. Ghassan Durant - Current Medication List Current Medications: Active Medications Acetaminophen (Tylenol -) 325 mg PO Q8H PRN PRN Reason: PAIN SCALE 6-10 Last Admin: 12/28/17 09:22 Dose: 325 mg Heparin Sodium (Porcine) (Heparin -) 1,000 unit IVPUSH PRN PRN PRN Reason: Heparin Last Admin: 12/30/17 13:26 Dose: 1,000 unit Heparin Sodium (Porcine) (Heparin -) 5,000 unit IVPUSH PRN PRN PRN Reason: Heparin Last Admin: 12/31/17 08:51 Dose: 5,000 unit Hydromorphone HCl (Dilaudid Vial -) 2 mg IVPB Q3H PRN PRN Reason: PAIN 1-5 Last Admin: 01/01/18 09:46 Dose: 2 mg HEPARIN SOD,PORK IN 0.45% NACL (Heparin-1/2ns 25,000 Units/500) 25,000 units in 500 mls @ 20 mls/hr IVPB TITR [facility]; Protocol Last Admin: 01/01/18 09:23 Dose: Not Given Clindamycin Phosphate (Cleocin 300 Mg Premix Ivpb) 300 mg in 50 mls @ 100 mls/ hr IVPB Q8H-IV [facility]; Protocol Last Admin: 01/01/18 09:22 Dose: 100 mls/hr Piperacillin Sod/Tazobactam (Sod 2.25 gm/ Dextrose) 50 mls @ 100 mls/hr IVPB Q8H-IV [facility]; Protocol Last Admin: 01/01/18 09:54 Dose: 100 mls/hr Insulin Aspart (Novolog Vial Sliding Scale -) 1 vial SQ ACHS [facility]; Protocol Last Admin: 01/01/18 06:23 Dose: Not Given Latanoprost (Xalatan 0.005% Eye Drops -) 1 drop OD HS [facility] Last Admin: 12/31/17 21:32 Dose: 1 drop Levothyroxine Sodium (Synthroid -) 75 mcg PO 0700 [facility] Last Admin: 01/01/18 06:24 Dose: 75 mcg Melatonin (Melatonin) 10 mg PO HS PRN PRN Reason: INSOMNIA Last Admin: 12/31/17 21:42 Dose: 10 mg Metoprolol Succinate (Toprol Xl -) 12.5 mg PO DAILY [facility] Last Admin: 01/01/18 09:23 Dose: 12.5 mg Multivit/Ca Carb/B Cmplx/FA/Prenat (Nephro-Fer -) 1 tablet PO DAILY [facility] Last Admin: 01/01/18 09:22 Dose: 1 tablet Polyethylene Glycol (Miralax (For Daily Use) -) 17 gm PO BID [facility] Last Admin: 01/01/18 09:23 Dose: Not Given Sacubitril/Valsartan (Entresto 24 Mg-26 Mg Tablet) 1 tab PO BID [facility] Last Admin: 01/01/18 09:23 Dose: 1 tab Senna (Senna -) 2 tab PO HS [facility] Last Admin: 12/31/17 21:32 Dose: 2 tab Sitagliptin Phosphate (Januvia -) 25 mg PO 0700 [facility] Last Admin: 01/01/18 06:24 Dose: 25 mg Thiamine HCl (Vitamin B1 -) 100 mg PO DAILY [facility] Last Admin: 01/01/18 09:22 Dose: 100 mg Vancomycin HCl (Vancomycin (Pre-Docked)) 1,000 mg IVPB TuThSa@1000 [facility] Last Admin: 12/30/17 10:22 Dose: 1,000 mg - Objective Vital Signs: Vital Signs Temperature 97.9 F 01/01/18 09:12 Pulse Rate 74 01/01/18 09:12 Respiratory Rate 20 01/01/18 09:12 Blood Pressure 94/55 L 01/01/18 09:12 O2 Sat by Pulse Oximetry (%) 97 12/31/17 21:00 Constitutional: Yes: No Distress, Calm, Thin Neck: Yes: Supple Cardiovascular: Yes: Regular Rate and Rhythm Respiratory: Yes: Regular, Diminished Gastrointestinal: Yes: Normal Bowel Sounds, Soft Extremities: Yes: Amputation Edema: No Wound/Incision: Yes: Dressing Dry and Intact Labs: CBC, BMP 01/01/18 06:30 12/30/17 05:30 INR, PTT INR 1.54 (0.83-1.09) H 12/27/17 06:30 Problem List - Problems (1) Chronic kidney disease on chronic dialysis Code(s): N18.6 - END STAGE RENAL DISEASE; Z99.2 - DEPENDENCE ON RENAL DIALYSIS (2) Gangrene of toe of right foot Code(s): I96 - GANGRENE, NOT ELSEWHERE CLASSIFIED (3) Amputated toe of right foot Code(s): Z89.421 - ACQUIRED ABSENCE OF OTHER RIGHT TOE(S) (4) Atrial fibrillation Code(s): I48.91 - UNSPECIFIED ATRIAL FIBRILLATION Qualifiers: Atrial fibrillation type: permanent Qualified Code(s): I48.2 - Chronic atrial fibrillation (5) Cardiomyopathy Code(s): I42.9 - CARDIOMYOPATHY, UNSPECIFIED Qualifiers: Cardiomyopathy type: unspecified Qualified Code(s): I42.9 - Cardiomyopathy , unspecified (6) Chronic anticoagulation Code(s): Z79.01 - RETIREMENT (CURRENT) USE OF 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 (7) 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 Code(s): E11.9 - TYPE 2 DIABETES MELLITUS WITHOUT COMPLICATIONS Qualifiers: 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 type: type 2 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 math tutor insulin use: with math tutor use 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 complication detail: with peripheral angiopathy with gangrene (8) ESRD (end stage renal disease) Code(s): N18.6 - END STAGE RENAL DISEASE (9) Hypothyroid Code(s): E03.9 - HYPOTHYROIDISM, UNSPECIFIED Qualifiers: Hypothyroidism type: unspecified Qualified Code(s): E03.9 - Hypothyroidism , unspecified (10) ICD (implantable cardioverter-defibrillator) in place Code(s): Z95.810 - PRESENCE OF AUTOMATIC (IMPLANTABLE) CARDIAC DEFIBRILLATOR (11) Open wound of foot Code(s): S91.309A - UNSPECIFIED OPEN WOUND, UNSPECIFIED FOOT, INITIAL ENCOUNTER Qualifiers: Encounter type: subsequent encounter Laterality: right Qualified Code(s) : S91.301D - Unspecified open wound, right foot, subsequent encounter (12) Pericardial effusion Code(s): I31.3 - PERICARDIAL EFFUSION (NONINFLAMMATORY) (13) Status post peripheral artery angioplasty Code(s): Z98.62 - PERIPHERAL VASCULAR ANGIOPLASTY STATUS (14) Pre-operative cardiovascular examination Code(s): Z01.810 - ENCOUNTER FOR PREPROCEDURAL CARDIOVASCULAR EXAMINATION Assessment/Plan 09/12/2017 Echo: Moderate pericardial effusion, no tamponade, mildly dilated LV with severely decreased LV fxn, mild-mod dilated RV with severely decreased RV fxn, mod-severe MUKUL, mild MR, mild-mod TR, mild AR 10/05/2017 Echo: Moderately dilated with severely decreased LV fxn, RV dilated with severely decreased RV fxn, mod LAE, mild MR, mod TR, mild AR, mod pericardial effusion similar to previous 1. Peripheral artery disease and gangrene right forefoot post right tibial revacularization and debridement of bone and soft tissue with toe amputations, wound vac and HBO2 planned for right TMA - pre-op CV evaluation 2. Ischemic dilated cardiomyopathy with chronic class I-II NYHA classification LV failure, compensated/euvolemic, post prophylactic ICD implant 3. CAD post DC with evidence of demand ischemic injury angina pectoris, clinically stable 4. Persistent atrial fibrillation [id number] score of 3-4 on Coumadin with subtherapeutic INR 5. Pericardial effusion probably uremic pericarditis, moderate in severity/ unchanged 6. 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 7. Hypothyroidism 8. History of PTE 9. ESRD on HD 10. History of colon cancer PLAN: 1. Empiric antibiotics course and analgesia as needed per the primary team 2. HD as per renal service and replete K 3. Hold Plavix 75 qd and coumadin and continue Heparin gtt pending formal TMA with close monitoring of CBC 4. Continue Toprol XL 12.5 qd and titrate as hemodynamics permit/tolerate 5. Continue Entresto 24/26 bid and titrate as hemodynamics permit/tolerate 6. Consider Jardiance for decreased CV event risk 7. Given absence of symptoms of acute coronary syndrome, decompensated CHF or malignant arrhythmia, may proceed with right TMA from CV-standpoint once INR is acceptable, f/u PVR/arterial doppler results. May have to hold Toprol XL and Entresto day of surgery for hemodynamic reasons Nitro Man: Dr. Ghassan Durant
[2018-01-01] MEDS ORDERED: SODIUM CHLORIDE 250 ML IV PRN ×2 (14:20→16:31)
[2018-01-01 16:00] LABS: ANION GAP 10 MMOL/L (8-16); BLOOD UREA NITROGEN 20 mg/dL (7-18); CALCIUM 8.7 mg/dL (8.5-10.1); CHLORIDE 94 mmol/L (98-107); CO2 27 mmol/L (21-32); GLUCOSE,RANDOM 127 mg/dL (74-106); POTASSIUM 3.5 mmol/L (3.5-5.1); SODIUM 131 mmol/L (136-145)
--- NOTE | 2018-01-01 16:31 | PN ---
Progress Note, Physician History of Present Illness: Pt seen and examined at bedside. He is awake and alert. He does get shortness of breath. He is not compliant with fluid restriction. - Current Medication List Current Medications: Active Medications Acetaminophen (Tylenol -) 325 mg PO Q8H PRN PRN Reason: PAIN SCALE 6-10 Last Admin: 12/28/17 09:22 Dose: 325 mg Heparin Sodium (Porcine) (Heparin -) 1,000 unit IVPUSH PRN PRN PRN Reason: Heparin Last Admin: 12/30/17 13:26 Dose: 1,000 unit Heparin Sodium (Porcine) (Heparin -) 5,000 unit IVPUSH PRN PRN PRN Reason: Heparin Last Admin: 12/31/17 08:51 Dose: 5,000 unit Hydromorphone HCl (Dilaudid Vial -) 2 mg IVPB Q3H PRN PRN Reason: PAIN 1-5 Last Admin: 01/01/18 13:28 Dose: 2 mg HEPARIN SOD,PORK IN 0.45% NACL (Heparin-1/2ns 25,000 Units/500) 25,000 units in 500 mls @ 20 mls/hr IVPB TITR [facility]; Protocol Last Admin: 01/01/18 12:55 Dose: Not Given Clindamycin Phosphate (Cleocin 300 Mg Premix Ivpb) 300 mg in 50 mls @ 100 mls/ hr IVPB Q8H-IV [facility]; Protocol Last Admin: 01/01/18 09:22 Dose: 100 mls/hr Piperacillin Sod/Tazobactam (Sod 2.25 gm/ Dextrose) 50 mls @ 100 mls/hr IVPB Q8H-IV [facility]; Protocol Last Admin: 01/01/18 09:54 Dose: 100 mls/hr Sodium Chloride (Normal Saline -) 250 mls @ 3,000 mls/hr IV PRN PRN PRN Reason: Hypotension during Dialysis Stop: 01/02/18 14:20 Insulin Aspart (Novolog Vial Sliding Scale -) 1 vial SQ ACHS [facility]; Protocol Last Admin: 01/01/18 12:54 Dose: Not Given Latanoprost (Xalatan 0.005% Eye Drops -) 1 drop OD HS [facility] Last Admin: 12/31/17 21:32 Dose: 1 drop Levothyroxine Sodium (Synthroid -) 75 mcg PO 0700 [facility] Last Admin: 01/01/18 06:24 Dose: 75 mcg Melatonin (Melatonin) 10 mg PO HS PRN PRN Reason: INSOMNIA Last Admin: 12/31/17 21:42 Dose: 10 mg Metoprolol Succinate (Toprol Xl -) 12.5 mg PO DAILY [facility] Last Admin: 01/01/18 09:23 Dose: 12.5 mg Multivit/Ca Carb/B Cmplx/FA/Prenat (Nephro-Fer -) 1 tablet PO DAILY [facility] Last Admin: 01/01/18 09:22 Dose: 1 tablet Polyethylene Glycol (Miralax (For Daily Use) -) 17 gm PO BID [facility] Last Admin: 01/01/18 09:23 Dose: Not Given Sacubitril/Valsartan (Entresto 24 Mg-26 Mg Tablet) 1 tab PO BID [facility] Last Admin: 01/01/18 09:23 Dose: 1 tab Senna (Senna -) 2 tab PO HS [facility] Last Admin: 12/31/17 21:32 Dose: 2 tab Sitagliptin Phosphate (Januvia -) 25 mg PO 0700 [facility] Last Admin: 01/01/18 06:24 Dose: 25 mg Thiamine HCl (Vitamin B1 -) 100 mg PO DAILY [facility] Last Admin: 01/01/18 09:22 Dose: 100 mg Vancomycin HCl (Vancomycin (Pre-Docked)) 1,000 mg IVPB TuThSa@1000 [facility] Last Admin: 12/30/17 10:22 Dose: 1,000 mg - Objective Vital Signs: Vital Signs Temperature 98.6 F 01/01/18 15:28 Pulse Rate 66 01/01/18 15:28 Respiratory Rate 20 01/01/18 15:28 Blood Pressure 81/50 L 01/01/18 15:28 O2 Sat by Pulse Oximetry (%) 97 01/01/18 09:00 Constitutional: Yes: Calm Eyes: Yes: Conjunctiva Clear HENT: Yes: Atraumatic Cardiovascular: Yes: S1, S2 Respiratory: Yes: On Nasal O2 Gastrointestinal: Yes: Soft Genitourinary: Yes: WNL Edema: Yes Edema: LLE: 2+, RLE: 2+ Neurological: Yes: Oriented Psychiatric: Yes: Oriented Labs: CBC, BMP 01/01/18 06:30 01/01/18 15:20 INR, PTT INR 1.54 (0.83-1.09) H 12/27/17 06:30 Problem List - Problems (1) Gangrene of toe of right foot Code(s): I96 - GANGRENE, NOT ELSEWHERE CLASSIFIED (2) ESRD (end stage renal disease) Code(s): N18.6 - END STAGE RENAL DISEASE Assessment/Plan Current Medications Generic Name Dose Route Start Last Admin Trade Name Freq PRN Reason Stop Dose Admin Acetaminophen 325 mg 12/26/17 18:04 12/28/17 09:22 Tylenol - PO 325 mg Q8H PRN Administration PAIN SCALE 6-10 Heparin Sodium (Porcine) 1,000 unit 12/27/17 11:58 12/30/17 13:26 Heparin - IVPUSH 1,000 unit PRN PRN Administration Heparin Heparin Sodium (Porcine) 5,000 unit 12/27/17 11:58 12/31/17 08:51 Heparin - IVPUSH 5,000 unit PRN PRN Administration Heparin Hydromorphone HCl 2 mg 12/30/17 21:18 01/01/18 13:28 Dilaudid Vial - IVPB 2 mg Q3H PRN Administration PAIN 1-5 HEPARIN SOD,PORK IN 0.45% NACL 25,000 units in 500 mls @ 20 mls/hr 12/27/17 12 :00 01/01/18 12:55 Heparin-1/2ns 25,000 Units/500 IVPB Not Given TITR [facility] Protocol 1,000 UNITS/HR Clindamycin Phosphate 300 mg in 50 mls @ 100 mls/hr 12/27/17 12:45 01/01/18 09:22 Cleocin 300 Mg Premix Ivpb IVPB 100 mls/hr Q8H-IV [facility] Administration Protocol Piperacillin Sod/Tazobactam 50 mls @ 100 mls/hr 12/30/17 14:00 01/01/18 09:54 Sod 2.25 gm/ Dextrose IVPB 100 mls/hr Q8H-IV [facility] Administration Protocol Sodium Chloride 250 mls @ 3,000 mls/hr 01/01/18 14:20 Normal Saline - IV 01/02/18 14:20 PRN PRN Hypotension during Dialysis Insulin Aspart 1 vial 12/26/17 22:00 01/01/18 12:54 Novolog Vial Sliding Scale - SQ Not Given ACHS [facility] Protocol Latanoprost 1 drop 12/26/17 22:00 12/31/17 21:32 Xalatan 0.005% Eye Drops - OD 1 drop HS [facility] Administration Levothyroxine Sodium 75 mcg 12/27/17 07:00 01/01/18 06:24 Synthroid - PO 75 mcg 0700 [facility] Administration Melatonin 10 mg 12/30/17 20:58 12/31/17 21:42 Melatonin PO 10 mg HS PRN Administration INSOMNIA Metoprolol Succinate 12.5 mg 12/27/17 10:00 01/01/18 09:23 Toprol Xl - PO 12.5 mg DAILY [facility] Administration Multivit/Ca Carb/B Cmplx/FA/Prenat 1 tablet 12/27/17 10:00 01/01/18 09:22 Nephro-Fer - PO 1 tablet DAILY [facility] Administration Polyethylene Glycol 17 gm 12/26/17 22:00 01/01/18 09:23 Miralax (For Daily Use) - PO Not Given BID [facility] Sacubitril/Valsartan 1 tab 12/26/17 22:00 01/01/18 09:23 Entresto 24 Mg-26 Mg Tablet PO 1 tab BID [facility] Administration Senna 2 tab 12/26/17 22:00 12/31/17 21:32 Senna - PO 2 tab HS [facility] Administration Sitagliptin Phosphate 25 mg 12/27/17 07:00 01/01/18 06:24 Januvia - PO 25 mg 0700 [facility] Administration Thiamine HCl 100 mg 12/27/17 10:00 01/01/18 09:22 Vitamin B1 - PO 100 mg DAILY [facility] Administration Vancomycin HCl 1,000 mg 12/30/17 10:00 12/30/17 10:22 Vancomycin (Pre-Docked) IVPB 1,000 mg TuThSa@1000 [facility] Administration Impression 1. ESRD 2. hx pericardial effusion 3. hx pneumopericardium 4. hypothyroidism 5. a-fib 6. hypotension 7. hx of colon cancer 8. CHF 9. DM 10. hx of PE 11. CAD 12. right great toe gangrene Plan - HD today for UF - pt will also get HD tomorrow (TTS schedule) - pt is not compliant with fluid intake - will give a small dose of potassium today - vascular follow up - cont wound care to foot - abx per ID - will follow
[2018-01-01] MEDS ORDERED: POTASSIUM CHLORIDE TABS 10 MEQ TABLET.ER (FP) PO ONE (16:45)
[2018-01-01] MEDS: SENNOSIDES 8.6MG TABLET (FP) PO SCH (21:33)
[2018-01-01] MEDS: LATANOPROST 0.005% OPHTH SOLN 2.5ML BOTTLE OD SCH (21:35)
[2018-01-01] MEDS: MELATONIN 5 MG TABLETS PO PRN (22:30)
--- NOTE | 2018-01-01 23:32 | PN ---
Progress Note (short form) - Note Progress Note: patient seen and examined in room has been hypotensive -- requires albumin while on HD has required fluid bolus for BP support Vital Signs Period Temp Pulse Resp BP Sys/Yoon Pulse Ox Last 24 Hr 98.1 F-99.2 F 61-78 16-20 82-126/46-70 96-97 neck supple heart irreg S1/S2 +M2/6 lungs clear bilat abd - soft inc hernia midline Ext - right A-V fistula Forearm - HD access + bruit right leg swollen / tender calf -- foot dressing in place CBC, BMP 01/01/18 06:30 01/01/18 15:20 CBC, BMP 12/31/17 07:30 12/30/17 05:30 Microbiology 12/29/17 14:00 Blood - Post-Dialysis Blood Culture - Preliminary NO GROWTH OBTAINED AFTER 72 HOURS, INCUBATION TO CONTINUE FOR 2 DAYS. 12/29/17 14:00 Blood - Post-Dialysis Blood Culture - Preliminary NO GROWTH OBTAINED AFTER 72 HOURS, INCUBATION TO CONTINUE FOR 2 DAYS. 12/27/17 12:30 Foot - Right Gram Stain - Final 12/27/17 12:30 Foot - Right Wound Culture - Final Mr S Aureus Stenotrophomon.(X.)Maltophilia 12/26/17 12:46 Blood - Peripheral Venous Blood Culture - Final NO GROWTH AFTER 5 DAYS INCUBATION 12/26/17 12:46 Blood - Peripheral Venous Blood Culture - Final NO GROWTH AFTER 5 DAYS INCUBATION Active Medications Acetaminophen (Tylenol -) 325 mg PO Q8H PRN PRN Reason: PAIN SCALE 6-10 Last Admin: 12/28/17 09:22 Dose: 325 mg Albumin Human (Albumin Human 25%) 12.5 gm IVPB Q30M [facility] Epoetin Hector (Epogen -) 7,000 unit IVPUSH ONCE ONE Stop: 01/02/18 16:32 Heparin Sodium (Porcine) (Heparin -) 1,000 unit IVPUSH PRN PRN PRN Reason: Heparin Last Admin: 12/30/17 13:26 Dose: 1,000 unit Heparin Sodium (Porcine) (Heparin -) 5,000 unit IVPUSH PRN PRN PRN Reason: Heparin Last Admin: 12/31/17 08:51 Dose: 5,000 unit Hydromorphone HCl (Dilaudid Vial -) 2 mg IVPB Q3H PRN PRN Reason: PAIN 1-5 Last Admin: 01/01/18 19:57 Dose: 2 mg HEPARIN SOD,PORK IN 0.45% NACL (Heparin-1/2ns 25,000 Units/500) 25,000 units in 500 mls @ 20 mls/hr IVPB TITR [facility]; Protocol Last Admin: 01/01/18 12:55 Dose: Not Given Clindamycin Phosphate (Cleocin 300 Mg Premix Ivpb) 300 mg in 50 mls @ 100 mls/ hr IVPB Q8H-IV [facility]; Protocol Last Admin: 01/01/18 19:42 Dose: 100 mls/hr Piperacillin Sod/Tazobactam (Sod 2.25 gm/ Dextrose) 50 mls @ 100 mls/hr IVPB Q8H-IV [facility]; Protocol Last Admin: 01/01/18 21:00 Dose: 100 mls/hr Sodium Chloride (Normal Saline -) 250 mls @ 3,000 mls/hr IV PRN PRN PRN Reason: Hypotension during Dialysis Stop: 01/02/18 14:20 Sodium Chloride (Normal Saline -) 250 mls @ 3,000 mls/hr IV PRN PRN PRN Reason: Hypotension during Dialysis Stop: 01/02/18 16:31 Insulin Aspart (Novolog Vial Sliding Scale -) 1 vial SQ ACHS [facility]; Protocol Last Admin: 01/01/18 21:34 Dose: Not Given Latanoprost (Xalatan 0.005% Eye Drops -) 1 drop OD HS [facility] Last Admin: 01/01/18 21:35 Dose: 1 drop Levothyroxine Sodium (Synthroid -) 75 mcg PO 0700 [facility] Last Admin: 01/01/18 06:24 Dose: 75 mcg Melatonin (Melatonin) 10 mg PO HS PRN PRN Reason: INSOMNIA Last Admin: 01/01/18 22:30 Dose: 10 mg Metoprolol Succinate (Toprol Xl -) 12.5 mg PO DAILY [facility] Last Admin: 01/01/18 09:23 Dose: 12.5 mg Multivit/Ca Carb/B Cmplx/FA/Prenat (Nephro-Fer -) 1 tablet PO DAILY [facility] Last Admin: 01/01/18 09:22 Dose: 1 tablet Polyethylene Glycol (Miralax (For Daily Use) -) 17 gm PO BID [facility] Last Admin: 01/01/18 21:34 Dose: Not Given Sacubitril/Valsartan (Entresto 24 Mg-26 Mg Tablet) 1 tab PO BID [facility] Last Admin: 01/01/18 21:34 Dose: 1 tab Senna (Senna -) 2 tab PO HS [facility] Last Admin: 01/01/18 21:33 Dose: 2 tab Sitagliptin Phosphate (Januvia -) 25 mg PO 0700 [facility] Last Admin: 01/01/18 06:24 Dose: 25 mg Thiamine HCl (Vitamin B1 -) 100 mg PO DAILY [facility] Last Admin: 01/01/18 09:22 Dose: 100 mg Vancomycin HCl (Vancomycin (Pre-Docked)) 1,000 mg IVPB TuThSa@1000 [facility] Last Admin: 12/30/17 10:22 Dose: 1,000 mg Assessment/Plan Assmt # hypotension have had to hold Bp meds continue to trend BP adjust meds as needed # right great toe gangrene - Abx per ID pain management await vasculat study surgery to schedule TMA cardiology clearance # osteomyelitis - elevated ESR /crp /alk phos Abx per ID # hyponatremia ( Na 128) resolved Na 135 # PVD s/p angioplasty bilat LE right LE done 1 yr ago pending further study -- schedule for TMA vs BKA # CKD5 on chronic HD TTS --HD per renal # DM on insulin / sliding scale # a fib -- a/c on coumadin - on hold continue heparin adjust per protocol #CAD # Cardiomyopathy s/p ICD # hypothyroid TSH # HFrEF Hx of EF 25% # anemia of chronic disease # hx of pericardial effusion - chronic ? echo ordered - moderate effision Cardio evaluation - seen by Dr Plasencia # hx of colon ca s/p resection # hx of PE - on a/c # hx of pneumopericardium Problem List - Problems (1) Gangrene of toe of right foot Code(s): I96 - GANGRENE, NOT ELSEWHERE CLASSIFIED (2) Diabetic foot ulcer Code(s): E11.621 - TYPE 2 DIABETES MELLITUS WITH FOOT ULCER; L97.509 - NON- PRESSURE CHRONIC ULCER OTH PRT UNSP FOOT W UNSP SEVERITY (3) Amputated toe of right foot Code(s): Z89.421 - ACQUIRED ABSENCE OF OTHER RIGHT TOE(S) (4) Atrial fibrillation Code(s): I48.91 - UNSPECIFIED ATRIAL FIBRILLATION Qualifiers: Atrial fibrillation type: permanent Qualified Code(s): I48.2 - Chronic atrial fibrillation (5) Cardiomyopathy Code(s): I42.9 - CARDIOMYOPATHY, UNSPECIFIED Qualifiers: Cardiomyopathy type: unspecified Qualified Code(s): I42.9 - Cardiomyopathy , unspecified (6) Chronic kidney disease (CKD), stage V Code(s): N18.5 - CHRONIC KIDNEY DISEASE, STAGE 5 (7) Chronic anticoagulation Code(s): Z79.01 - ENGINEERING PROGRAM MANAGER (CURRENT) USE OF 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 (8) 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 Code(s): E11.9 - TYPE 2 DIABETES MELLITUS WITHOUT COMPLICATIONS Qualifiers: 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 type: type 2 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 skilled nursing insulin use: with skilled nursing use 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 complication detail: with peripheral angiopathy with gangrene (9) ESRD (end stage renal disease) Code(s): N18.6 - END STAGE RENAL DISEASE (10) Chronic kidney disease on chronic dialysis Code(s): N18.6 - END STAGE RENAL DISEASE; Z99.2 - DEPENDENCE ON RENAL DIALYSIS (11) HTN (hypertension) Code(s): I10 - ESSENTIAL (PRIMARY) HYPERTENSION Qualifiers: Hypertension type: essential hypertension Qualified Code(s): I10 - Essential (primary) hypertension (12) ICD (implantable cardioverter-defibrillator) in place Code(s): Z95.810 - PRESENCE OF AUTOMATIC (IMPLANTABLE) CARDIAC DEFIBRILLATOR (13) Osteomyelitis Code(s): M86.9 - OSTEOMYELITIS, UNSPECIFIED Qualifiers: Osteomyelitis type: other Osteomyelitis location: foot Laterality: right Qualified Code(s): M86.8X7 - Other osteomyelitis, ankle and foot (14) Status post peripheral artery angioplasty Code(s): Z98.62 - PERIPHERAL VASCULAR ANGIOPLASTY STATUS
[2018-01-02] MEDS: HYDROmorphone HCl 2 MG/ML VIAL IVPB PRN ×6 (00:06→22:12)
[2018-01-02] MEDS: CLINDAMYCIN 300 MG PREMIX IVPB 300 MG/50 ML BAG IVPB SCH ×3 (02:52→18:46)
[2018-01-02] MEDS ORDERED: DEXTROSE 5%-WATER - 50 ML IVPB ONE ×2 (02:55→19:05)
[2018-01-02] MEDS ORDERED: PIPERACILLIN/TAZOBACTAM 2.25 GM VIAL IVPB ONE ×3 (02:55→19:04)
[2018-01-02] MEDS: PIPERACILLIN/TAZOB 2.25 GM 2.25 GM in DEXTROSE 5%-WATER - 50 ML IVPB SCH ×3 (04:00→19:39)
[2018-01-02] MEDS: LEVOTHYROXINE NA 75 MCG TABLET (FP) PO SCH (06:38)
[2018-01-02] MEDS: sitaGLIPtin PHOSPHATE 25 MG TABLET (FP) PO SCH (06:39)
[2018-01-02] MEDS: INSULIN SLIDING SCALE (NOVOLOG) 1 VIAL SQ SCH ×4 (06:41→22:22)
--- NOTE | 2018-01-02 08:24 | PN ---
Progress Note (short form) - Note Progress Note: VSS Exam unchanged Doppler/PVR shows intact distal flow to ankle. Will proceed with TMA right foot trying to salvage usable foot for ambulation. Patient aware that if this fails to heal he will need BKA. Problem List - Problems (1) Gangrene of toe of right foot Code(s): I96 - GANGRENE, NOT ELSEWHERE CLASSIFIED
--- NOTE | 2018-01-02 09:03 | SPA.PREOP ---
- PRE-OP NOTE Dx: Right toe gangrene Planned Procedure: Right foot transmetatarsal amputation Surgeon: Dr Cope Consent: Obtained after surgeon explained all risks, benefits and alternatives. Opportunity for questions. Patient had none. Understood and signed without reservation. Last Vital Signs Temp Pulse Resp BP Pulse Ox 98.4 F 66 18 88/59 L 97 01/02/18 05:56 01/02/18 05:56 01/02/18 05:56 01/02/18 05:56 01/01/18 21:00 Lab Results WBC 7.8 K/mm3 (4.0-10.0) 01/01/18 06:30 RBC 3.35 M/mm3 (4.00-5.60) L 01/01/18 06:30 Hgb 9.1 GM/dL (11.7-16.9) L 01/01/18 06:30 Hct 30.1 % (35.4-49) L 01/01/18 06:30 MCV 90.1 fl (80-96) 01/01/18 06:30 MCHC 30.3 g/dl (32.0-35.9) L 01/01/18 06:30 RDW 19.7 % (11.9-15.9) H 01/01/18 06:30 Plt Count 203 K/MM3 (134-434) 01/01/18 06:30 Sodium 131 mmol/L (136-145) L 01/01/18 15:20 Potassium 3.5 mmol/L (3.5-5.1) 01/01/18 15:20 Chloride 94 mmol/L (98-107) L 01/01/18 15:20 Carbon Dioxide 27 mmol/L (21-32) 01/01/18 15:20 Anion Gap 10 MMOL/L (8-16) 01/01/18 15:20 BUN 20 mg/dL (7-18) H 01/01/18 15:20 Creatinine 4.0 mg/dL (0.55-1.3) H 01/01/18 15:20 Random Glucose 127 mg/dL (74-106) H 01/01/18 15:20 Calcium 8.7 mg/dL (8.5-10.1) 01/01/18 15:20 Blood Type O POSITIVE 12/26/17 12:46 Antibody Screen Negative 12/26/17 12:46 INR 1.54 (0.83-1.09) H 12/27/17 06:30 - IMAGING Chest X-ray: Report Reviewed, Image Reviewed (No signs of acute chest process ) EKG: Report Reviewed (Ventricular paced, biventricular pacemaker (12/26)) - ASSESSMENT/PLAN Cardiology clearance appreciated (Dr Rohan Plasencia 12/27) cleared by BKA NPO after midnight except po meds Consent per attending Labs cbc, bmp, t&s, coags Schedule HD around OR
[2018-01-02] MEDS: ALBUMIN HUMAN 25% 12.5 GM/50 ML VIAL IVPB SCH ×3 (09:30→11:00)
[2018-01-02 09:50] LABS: HEMATOCRIT 30.3 % (35.4-49); HEMOGLOBIN 9.2 GM/dL (11.7-16.9); MCH 27.5 pg (25.7-33.7); MCHC 30.3 g/dl (32.0-35.9); MEAN CELL VOLUME 90.6 fl (80-96); MEAN PLT VOLUME 9.4 fl (7.5-11.1); PLATELET COUNT 208 K/MM3 (134-434); RBC 3.34 M/mm3 (4.00-5.60); RDW 19.7 % (11.9-15.9); WHITE BLOOD COUNT 7.3 K/mm3 (4.0-10.0)
[2018-01-02] MEDS ORDERED: EPOETIN ALFA 3,000 UNIT, EPOETIN ALFA 4,000 UNIT IVPUSH ONE (10:00)
[2018-01-02 10:32] LABS: ANION GAP 12 MMOL/L (8-16); BLOOD UREA NITROGEN 15 mg/dL (7-18); CALCIUM 8.9 mg/dL (8.5-10.1); CHLORIDE 94 mmol/L (98-107); CO2 27 mmol/L (21-32); CREATININE 3.7 mg/dL (0.55-1.3); GLUCOSE,RANDOM 89 mg/dL (74-106); POTASSIUM 3.8 mmol/L (3.5-5.1); SODIUM 133 mmol/L (136-145)
[2018-01-02] MEDS ORDERED: PT OWN MED DRAWER 7, Y5N ONE ×3 (12:22→21:38)
--- NOTE | 2018-01-02 12:54 | PN ---
Progress Note, Physician History of Present Illness: stable plan for surgery tomorrow no complaints tolerating dialysis - Current Medication List Current Medications: Active Medications Acetaminophen (Tylenol -) 325 mg PO Q8H PRN PRN Reason: PAIN SCALE 6-10 Last Admin: 12/28/17 09:22 Dose: 325 mg Albumin Human (Albumin Human 25%) 12.5 gm IVPB Q30M [facility] Last Admin: 01/02/18 11:00 Dose: 12.5 gm Heparin Sodium (Porcine) (Heparin -) 1,000 unit IVPUSH PRN PRN PRN Reason: Heparin Last Admin: 12/30/17 13:26 Dose: 1,000 unit Heparin Sodium (Porcine) (Heparin -) 5,000 unit IVPUSH PRN PRN PRN Reason: Heparin Last Admin: 12/31/17 08:51 Dose: 5,000 unit Hydromorphone HCl (Dilaudid Vial -) 2 mg IVPB Q3H PRN PRN Reason: PAIN 1-5 Last Admin: 01/02/18 06:49 Dose: 2 mg HEPARIN SOD,PORK IN 0.45% NACL (Heparin-1/2ns 25,000 Units/500) 25,000 units in 500 mls @ 20 mls/hr IVPB TITR [facility]; Protocol Last Titration: 01/02/18 12:18 Dose: 1,400 units/hr, 28 mls/hr Clindamycin Phosphate (Cleocin 300 Mg Premix Ivpb) 300 mg in 50 mls @ 100 mls/ hr IVPB Q8H-IV [facility]; Protocol Last Admin: 01/02/18 02:52 Dose: 100 mls/hr Piperacillin Sod/Tazobactam (Sod 2.25 gm/ Dextrose) 50 mls @ 100 mls/hr IVPB Q8H-IV [facility]; Protocol Last Admin: 01/02/18 04:00 Dose: 100 mls/hr Sodium Chloride (Normal Saline -) 250 mls @ 3,000 mls/hr IV PRN PRN PRN Reason: Hypotension during Dialysis Stop: 01/02/18 14:20 Sodium Chloride (Normal Saline -) 250 mls @ 3,000 mls/hr IV PRN PRN PRN Reason: Hypotension during Dialysis Stop: 01/02/18 16:31 Insulin Aspart (Novolog Vial Sliding Scale -) 1 vial SQ ACHS [facility]; Protocol Last Admin: 01/02/18 11:00 Dose: Not Given Latanoprost (Xalatan 0.005% Eye Drops -) 1 drop OD HS [facility] Last Admin: 01/01/18 21:35 Dose: 1 drop Levothyroxine Sodium (Synthroid -) 75 mcg PO 0700 [facility] Last Admin: 01/02/18 06:38 Dose: 75 mcg Melatonin (Melatonin) 10 mg PO HS PRN PRN Reason: INSOMNIA Last Admin: 01/01/18 22:30 Dose: 10 mg Metoprolol Succinate (Toprol Xl -) 12.5 mg PO DAILY [facility] Last Admin: 01/01/18 09:23 Dose: 12.5 mg Multivit/Ca Carb/B Cmplx/FA/Prenat (Nephro-Fer -) 1 tablet PO DAILY [facility] Last Admin: 01/01/18 09:22 Dose: 1 tablet Polyethylene Glycol (Miralax (For Daily Use) -) 17 gm PO BID [facility] Last Admin: 01/01/18 21:34 Dose: Not Given Sacubitril/Valsartan (Entresto 24 Mg-26 Mg Tablet) 1 tab PO BID [facility] Last Admin: 01/01/18 21:34 Dose: 1 tab Senna (Senna -) 2 tab PO HS [facility] Last Admin: 01/01/18 21:33 Dose: 2 tab Sitagliptin Phosphate (Januvia -) 25 mg PO 0700 [facility] Last Admin: 01/02/18 06:39 Dose: 25 mg Thiamine HCl (Vitamin B1 -) 100 mg PO DAILY [facility] Last Admin: 01/01/18 09:22 Dose: 100 mg Vancomycin HCl (Vancomycin (Pre-Docked)) 1,000 mg IVPB TuThSa@1000 [facility] Last Admin: 12/30/17 10:22 Dose: 1,000 mg - Objective Vital Signs: Vital Signs Temperature 98.6 F 01/02/18 08:35 Pulse Rate 65 01/02/18 11:40 Respiratory Rate 18 01/02/18 11:40 Blood Pressure 101/63 01/02/18 11:40 O2 Sat by Pulse Oximetry (%) 97 01/01/18 21:00 Constitutional: Yes: No Distress, Calm Cardiovascular: Yes: Regular Rate and Rhythm Respiratory: Yes: Regular, CTA Bilaterally Gastrointestinal: Yes: Normal Bowel Sounds, Soft Musculoskeletal: Yes: WNL Extremities: Yes: Other Wound/Incision: Yes: Dressing Dry and Intact Neurological: Yes: Alert, Oriented Psychiatric: Yes: Alert, Oriented Labs: CBC, BMP 01/02/18 08:50 01/02/18 08:50 INR, PTT INR 1.54 (0.83-1.09) H 12/27/17 06:30 Assessment/Plan Impression 1. ESRD 2. hx pericardial effusion 3. hx pneumopericardium 4. hypothyroidism 5. a-fib 6. hypotension 7. hx of colon cancer 8. CHF 9. DM 10. hx of PE 11. CAD 12. right great toe gangrene patient with rt toe gangrene plan continue abx surgery probably tomorrow rest as per the team continue dialysis
[2018-01-02] MEDS: THIAMINE HCL 100 MG TABLET (FP) PO SCH (13:30)
[2018-01-02] MEDS: metoPROLOL SUCCINATE 25 MG TAB.SR.24H (FP) PO SCH (13:30)
[2018-01-02] MEDS: VITAMIN B COMP W-C 1 EA TABLET PO SCH (13:30)
[2018-01-02] MEDS: VANCOMYCIN 1 GRAM (PRE-DOCKED) 1,000 MG/250 ML BAG IVPB SCH (13:32)
[2018-01-02] MEDS: SACUBITRIL/VALSARTAN 24 MG-26 MG TABLET PO SCH ×2 (13:32→22:15)
[2018-01-02] MEDS: POLYETHYLENE GLYCOL 3350 119 GM BTL PO SCH ×2 (13:33→22:16)
--- NOTE | 2018-01-02 13:39 | PN ---
Progress Note, Physician History of Present Illness: Pt seen and examined at bedside. He is tolerating HD. He is trying to drink less fluids. - Current Medication List Current Medications: Active Medications Acetaminophen (Tylenol -) 325 mg PO Q8H PRN PRN Reason: PAIN SCALE 6-10 Last Admin: 12/28/17 09:22 Dose: 325 mg Albumin Human (Albumin Human 25%) 12.5 gm IVPB Q30M [facility] Last Admin: 01/02/18 11:00 Dose: 12.5 gm Heparin Sodium (Porcine) (Heparin -) 1,000 unit IVPUSH PRN PRN PRN Reason: Heparin Last Admin: 12/30/17 13:26 Dose: 1,000 unit Heparin Sodium (Porcine) (Heparin -) 5,000 unit IVPUSH PRN PRN PRN Reason: Heparin Last Admin: 12/31/17 08:51 Dose: 5,000 unit Hydromorphone HCl (Dilaudid Vial -) 2 mg IVPB Q3H PRN PRN Reason: PAIN 1-5 Last Admin: 01/02/18 13:20 Dose: 2 mg HEPARIN SOD,PORK IN 0.45% NACL (Heparin-1/2ns 25,000 Units/500) 25,000 units in 500 mls @ 20 mls/hr IVPB TITR [facility]; Protocol Last Titration: 01/02/18 12:18 Dose: 1,400 units/hr, 28 mls/hr Clindamycin Phosphate (Cleocin 300 Mg Premix Ivpb) 300 mg in 50 mls @ 100 mls/ hr IVPB Q8H-IV [facility]; Protocol Last Admin: 01/02/18 13:31 Dose: 100 mls/hr Piperacillin Sod/Tazobactam (Sod 2.25 gm/ Dextrose) 50 mls @ 100 mls/hr IVPB Q8H-IV [facility]; Protocol Last Admin: 01/02/18 13:33 Dose: 100 mls/hr Sodium Chloride (Normal Saline -) 250 mls @ 3,000 mls/hr IV PRN PRN PRN Reason: Hypotension during Dialysis Stop: 01/02/18 14:20 Sodium Chloride (Normal Saline -) 250 mls @ 3,000 mls/hr IV PRN PRN PRN Reason: Hypotension during Dialysis Stop: 01/02/18 16:31 Insulin Aspart (Novolog Vial Sliding Scale -) 1 vial SQ ACHS [facility]; Protocol Last Admin: 01/02/18 11:00 Dose: Not Given Latanoprost (Xalatan 0.005% Eye Drops -) 1 drop OD HS [facility] Last Admin: 01/01/18 21:35 Dose: 1 drop Levothyroxine Sodium (Synthroid -) 75 mcg PO 0700 [facility] Last Admin: 01/02/18 06:38 Dose: 75 mcg Melatonin (Melatonin) 10 mg PO HS PRN PRN Reason: INSOMNIA Last Admin: 01/01/18 22:30 Dose: 10 mg Metoprolol Succinate (Toprol Xl -) 12.5 mg PO DAILY [facility] Last Admin: 01/02/18 13:30 Dose: 12.5 mg Multivit/Ca Carb/B Cmplx/FA/Prenat (Nephro-Fer -) 1 tablet PO DAILY [facility] Last Admin: 01/02/18 13:30 Dose: 1 tablet Polyethylene Glycol (Miralax (For Daily Use) -) 17 gm PO BID [facility] Last Admin: 01/02/18 13:33 Dose: Not Given Sacubitril/Valsartan (Entresto 24 Mg-26 Mg Tablet) 1 tab PO BID [facility] Last Admin: 01/02/18 13:32 Dose: 1 tab Senna (Senna -) 2 tab PO HS [facility] Last Admin: 01/01/18 21:33 Dose: 2 tab Sitagliptin Phosphate (Januvia -) 25 mg PO 0700 [facility] Last Admin: 01/02/18 06:39 Dose: 25 mg Thiamine HCl (Vitamin B1 -) 100 mg PO DAILY [facility] Last Admin: 01/02/18 13:30 Dose: 100 mg Vancomycin HCl (Vancomycin (Pre-Docked)) 1,000 mg IVPB TuThSa@1000 [facility] Last Admin: 01/02/18 13:32 Dose: 1,000 mg - Objective Vital Signs: Vital Signs Temperature 98.6 F 01/02/18 08:35 Pulse Rate 66 01/02/18 12:58 Respiratory Rate 18 01/02/18 12:58 Blood Pressure 102/68 01/02/18 12:58 O2 Sat by Pulse Oximetry (%) 97 01/02/18 08:30 Constitutional: Yes: Calm Eyes: Yes: Conjunctiva Clear HENT: Yes: Atraumatic Cardiovascular: Yes: S1, S2 Respiratory: Yes: CTA Bilaterally, On Nasal O2 Gastrointestinal: Yes: Soft Genitourinary: Yes: WNL Edema: Yes Edema: LLE: 2+, RLE: 2+ Neurological: Yes: Oriented Psychiatric: Yes: Oriented Labs: CBC, BMP 01/02/18 08:50 01/02/18 08:50 INR, PTT INR 1.54 (0.83-1.09) H 12/27/17 06:30 Problem List - Problems (1) Gangrene of toe of right foot Code(s): I96 - GANGRENE, NOT ELSEWHERE CLASSIFIED (2) ESRD (end stage renal disease) Code(s): N18.6 - END STAGE RENAL DISEASE Assessment/Plan Current Medications Generic Name Dose Route Start Last Admin Trade Name Freq PRN Reason Stop Dose Admin Acetaminophen 325 mg 12/26/17 18:04 12/28/17 09:22 Tylenol - PO 325 mg Q8H PRN Administration PAIN SCALE 6-10 Albumin Human 12.5 gm 01/02/18 16:45 01/02/18 11:00 Albumin Human 25% IVPB 12.5 gm Q30M [facility] Administration Heparin Sodium (Porcine) 1,000 unit 12/27/17 11:58 12/30/17 13:26 Heparin - IVPUSH 1,000 unit PRN PRN Administration Heparin Heparin Sodium (Porcine) 5,000 unit 12/27/17 11:58 12/31/17 08:51 Heparin - IVPUSH 5,000 unit PRN PRN Administration Heparin Hydromorphone HCl 2 mg 12/30/17 21:18 01/02/18 13:20 Dilaudid Vial - IVPB 2 mg Q3H PRN Administration PAIN 1-5 HEPARIN SOD,PORK IN 0.45% NACL 25,000 units in 500 mls @ 20 mls/hr 12/27/17 12 :00 01/02/18 12:18 Heparin-1/2ns 25,000 Units/500 IVPB 1,400 units/hr TITR [facility] 28 mls/hr Titration Protocol 1,000 UNITS/HR Clindamycin Phosphate 300 mg in 50 mls @ 100 mls/hr 12/27/17 12:45 01/02/18 13:31 Cleocin 300 Mg Premix Ivpb IVPB 100 mls/hr Q8H-IV [facility] Administration Protocol Piperacillin Sod/Tazobactam 50 mls @ 100 mls/hr 12/30/17 14:00 01/02/18 13:33 Sod 2.25 gm/ Dextrose IVPB 100 mls/hr Q8H-IV [facility] Administration Protocol Sodium Chloride 250 mls @ 3,000 mls/hr 01/01/18 14:20 Normal Saline - IV 01/02/18 14:20 PRN PRN Hypotension during Dialysis Sodium Chloride 250 mls @ 3,000 mls/hr 01/01/18 16:31 Normal Saline - IV 01/02/18 16:31 PRN PRN Hypotension during Dialysis Insulin Aspart 1 vial 12/26/17 22:00 01/02/18 11:00 Novolog Vial Sliding Scale - SQ Not Given ACHS [facility] Protocol Latanoprost 1 drop 12/26/17 22:00 01/01/18 21:35 Xalatan 0.005% Eye Drops - OD 1 drop HS [facility] Administration Levothyroxine Sodium 75 mcg 12/27/17 07:00 01/02/18 06:38 Synthroid - PO 75 mcg 0700 [facility] Administration Melatonin 10 mg 12/30/17 20:58 01/01/18 22:30 Melatonin PO 10 mg HS PRN Administration INSOMNIA Metoprolol Succinate 12.5 mg 12/27/17 10:00 01/02/18 13:30 Toprol Xl - PO 12.5 mg DAILY [facility] Administration Multivit/Ca Carb/B Cmplx/FA/Prenat 1 tablet 12/27/17 10:00 01/02/18 13:30 Nephro-Fer - PO 1 tablet DAILY [facility] Administration Polyethylene Glycol 17 gm 12/26/17 22:00 01/02/18 13:33 Miralax (For Daily Use) - PO Not Given BID [facility] Sacubitril/Valsartan 1 tab 12/26/17 22:00 01/02/18 13:32 Entresto 24 Mg-26 Mg Tablet PO 1 tab BID [facility] Administration Senna 2 tab 12/26/17 22:00 01/01/18 21:33 Senna - PO 2 tab HS [facility] Administration Sitagliptin Phosphate 25 mg 12/27/17 07:00 01/02/18 06:39 Januvia - PO 25 mg 0700 [facility] Administration Thiamine HCl 100 mg 12/27/17 10:00 01/02/18 13:30 Vitamin B1 - PO 100 mg DAILY [facility] Administration Vancomycin HCl 1,000 mg 12/30/17 10:00 01/02/18 13:32 Vancomycin (Pre-Docked) IVPB 1,000 mg TuThSa@1000 [facility] Administration Impression 1. ESRD 2. hx pericardial effusion 3. hx pneumopericardium 4. hypothyroidism 5. a-fib 6. hypotension 7. hx of colon cancer 8. CHF 9. DM 10. hx of PE 11. CAD 12. right great toe gangrene Plan - HD again today - will need to limit fluid intake - pt instructed to adhere to fluid intake restriction and that includes ice - vascular follow up - cont wound care to foot - abx per ID - will follow
[2018-01-02 15:46] VITALS: BMI 28.1
[2018-01-02] MEDS ORDERED: EPOETIN ALFA 2,000 UNIT/1 ML VIAL IVPUSH ONE (16:31)
[2018-01-02] MEDS: HEPARIN SOD,PORK IN 0.45% NACL 25,000 UNITS/500 ML INFUS.BAG IVPB SCH (16:44)
--- NOTE | 2018-01-02 21:25 | PN ---
Progress Note (short form) - Note Progress Note: scheduled for surgery in am heparin drip to hold at midnight Vital Signs Period Temp Pulse Resp BP Sys/Yoon Pulse Ox Last 24 Hr 98.2 F-98.6 F 64-68 17-18 88-103/42-80 97 neck supple heart irreg S1/S2 +M2/6 lungs clear bilat abd - soft inc hernia midline Ext - right A-V fistula Forearm - HD access + bruit right leg swollen / tender calf -- foot dressing in place CBC, BMP 01/02/18 08:50 01/02/18 08:50 CBC, BMP 01/01/18 06:30 01/01/18 15:20 CBC, BMP 12/31/17 07:30 12/30/17 05:30 Microbiology 12/29/17 14:00 Blood - Post-Dialysis Blood Culture - Preliminary NO GROWTH OBTAINED AFTER 96 HOURS, INCUBATION TO CONTINUE FOR 1 DAYS. 12/29/17 14:00 Blood - Post-Dialysis Blood Culture - Preliminary NO GROWTH OBTAINED AFTER 96 HOURS, INCUBATION TO CONTINUE FOR 1 DAYS. 12/27/17 12:30 Foot - Right Gram Stain - Final 12/27/17 12:30 Foot - Right Wound Culture - Final Mr S Aureus Stenotrophomon.(X.)Maltophilia 12/26/17 12:46 Blood - Peripheral Venous Blood Culture - Final NO GROWTH AFTER 5 DAYS INCUBATION 12/26/17 12:46 Blood - Peripheral Venous Blood Culture - Final NO GROWTH AFTER 5 DAYS INCUBATION Active Medications Acetaminophen (Tylenol -) 325 mg PO Q8H PRN PRN Reason: PAIN SCALE 6-10 Last Admin: 12/28/17 09:22 Dose: 325 mg Hydromorphone HCl (Dilaudid Vial -) 2 mg IVPB Q3H PRN PRN Reason: PAIN 1-5 Last Admin: 01/02/18 16:37 Dose: 2 mg HEPARIN SOD,PORK IN 0.45% NACL (Heparin-1/2ns 25,000 Units/500) 25,000 units in 500 mls @ 20 mls/hr IVPB TITR [facility]; Protocol Stop: 01/02/18 23:59 Last Admin: 01/02/18 16:44 Dose: 1,400 units/hr, 28 mls/hr Clindamycin Phosphate (Cleocin 300 Mg Premix Ivpb) 300 mg in 50 mls @ 100 mls/ hr IVPB Q8H-IV [facility]; Protocol Last Admin: 01/02/18 18:46 Dose: 100 mls/hr Piperacillin Sod/Tazobactam (Sod 2.25 gm/ Dextrose) 50 mls @ 100 mls/hr IVPB Q8H-IV [facility]; Protocol Last Admin: 01/02/18 19:39 Dose: 100 mls/hr Insulin Aspart (Novolog Vial Sliding Scale -) 1 vial SQ ACHS [facility]; Protocol Last Admin: 01/02/18 16:47 Dose: Not Given Latanoprost (Xalatan 0.005% Eye Drops -) 1 drop OD HS [facility] Last Admin: 01/01/18 21:35 Dose: 1 drop Levothyroxine Sodium (Synthroid -) 75 mcg PO 0700 [facility] Last Admin: 01/02/18 06:38 Dose: 75 mcg Melatonin (Melatonin) 10 mg PO HS PRN PRN Reason: INSOMNIA Last Admin: 01/01/18 22:30 Dose: 10 mg Metoprolol Succinate (Toprol Xl -) 12.5 mg PO DAILY [facility] Last Admin: 01/02/18 13:30 Dose: 12.5 mg Multivit/Ca Carb/B Cmplx/FA/Prenat (Nephro-Fer -) 1 tablet PO DAILY [facility] Last Admin: 01/02/18 13:30 Dose: 1 tablet Polyethylene Glycol (Miralax (For Daily Use) -) 17 gm PO BID [facility] Last Admin: 01/02/18 13:33 Dose: Not Given Sacubitril/Valsartan (Entresto 24 Mg-26 Mg Tablet) 1 tab PO BID [facility] Last Admin: 01/02/18 13:32 Dose: 1 tab Senna (Senna -) 2 tab PO HS [facility] Last Admin: 01/01/18 21:33 Dose: 2 tab Sitagliptin Phosphate (Januvia -) 25 mg PO 0700 [facility] Last Admin: 01/02/18 06:39 Dose: 25 mg Thiamine HCl (Vitamin B1 -) 100 mg PO DAILY [facility] Last Admin: 01/02/18 13:30 Dose: 100 mg Vancomycin HCl (Vancomycin (Pre-Docked)) 1,000 mg IVPB TuThSa@1000 [facility] Last Admin: 01/02/18 13:32 Dose: 1,000 mg Assessment/Plan Assmt # right great toe gangrene - Abx per ID pain management await vasculat study surgery to schedule TMA cardiology clearance # hypotension have had to hold Bp meds continue to trend BP adjust meds as needed # osteomyelitis - elevated ESR /crp /alk phos Abx per ID # hyponatremia ( Na 128) resolved Na 135 # PVD s/p angioplasty bilat LE right LE done 1 yr ago pending further study -- schedule for TMA vs BKA # CKD5 on chronic HD TTS --HD per renal # DM on insulin / sliding scale # a fib -- a/c on coumadin - on hold continue heparin adjust per protocol hold after midnight -- scheduled OR #CAD # Cardiomyopathy s/p ICD non ischemic s/pCath # hypothyroid TSH # HFrEF Hx of EF 15 -20% # anemia of chronic disease # hx of pericardial effusion - chronic ? echo ordered - moderate effision Cardio evaluation - seen by Dr Plasencia # hx of colon ca s/p resection # hx of PE - on a/c # hx of pneumopericardium Problem List - Problems (1) Gangrene of toe of right foot Code(s): I96 - GANGRENE, NOT ELSEWHERE CLASSIFIED (2) Diabetic foot ulcer Code(s): E11.621 - TYPE 2 DIABETES MELLITUS WITH FOOT ULCER; L97.509 - NON- PRESSURE CHRONIC ULCER OTH PRT UNSP FOOT W UNSP SEVERITY (3) Amputated toe of right foot Code(s): Z89.421 - ACQUIRED ABSENCE OF OTHER RIGHT TOE(S) (4) Atrial fibrillation Code(s): I48.91 - UNSPECIFIED ATRIAL FIBRILLATION Qualifiers: Atrial fibrillation type: permanent Qualified Code(s): I48.2 - Chronic atrial fibrillation (5) Cardiomyopathy Code(s): I42.9 - CARDIOMYOPATHY, UNSPECIFIED Qualifiers: Cardiomyopathy type: unspecified Qualified Code(s): I42.9 - Cardiomyopathy , unspecified (6) Chronic kidney disease (CKD), stage V Code(s): N18.5 - CHRONIC KIDNEY DISEASE, STAGE 5 (7) Chronic anticoagulation Code(s): Z79.01 - DIRECTOR OF SPECIAL EDUCATION (CURRENT) USE OF 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 (8) Diabetes mellitus Code(s): E11.9 - TYPE 2 DIABETES MELLITUS WITHOUT COMPLICATIONS Qualifiers: Diabetes mellitus type: type 2 Diabetes mellitus rn long term care insulin use: with usp use Diabetes mellitus complication detail: with peripheral angiopathy with gangrene (9) ESRD (end stage renal disease) Code(s): N18.6 - END STAGE RENAL DISEASE (10) Chronic kidney disease on chronic dialysis Code(s): N18.6 - END STAGE RENAL DISEASE; Z99.2 - DEPENDENCE ON RENAL DIALYSIS (11) HTN (hypertension) Code(s): I10 - ESSENTIAL (PRIMARY) HYPERTENSION Qualifiers: Hypertension type: essential hypertension Qualified Code(s): I10 - Essential (primary) hypertension (12) ICD (implantable cardioverter-defibrillator) in place Code(s): Z95.810 - PRESENCE OF AUTOMATIC (IMPLANTABLE) CARDIAC DEFIBRILLATOR (13) Osteomyelitis Code(s): M86.9 - OSTEOMYELITIS, UNSPECIFIED Qualifiers: Osteomyelitis type: other Osteomyelitis location: foot Laterality: right Qualified Code(s): M86.8X7 - Other osteomyelitis, ankle and foot (14) Status post peripheral artery angioplasty Code(s): Z98.62 - PERIPHERAL VASCULAR ANGIOPLASTY STATUS
[2018-01-02] MEDS: SENNOSIDES 8.6MG TABLET (FP) PO SCH (22:12)
[2018-01-02] MEDS: LATANOPROST 0.005% OPHTH SOLN 2.5ML BOTTLE OD SCH (22:14)
[2018-01-03] MEDS ORDERED: PIPERACILLIN/TAZOBACTAM 2.25 GM VIAL IVPB ONE ×3 (01:03→17:20)
[2018-01-03] MEDS ORDERED: PT OWN MED DRAWER 7, Y5N ONE ×3 (01:03→22:58)
[2018-01-03] MEDS: HYDROmorphone HCl 2 MG/ML VIAL IVPB PRN ×3 (02:02→10:26)
[2018-01-03] MEDS: CLINDAMYCIN 300 MG PREMIX IVPB 300 MG/50 ML BAG IVPB SCH ×2 (02:02→10:15)
[2018-01-03] MEDS: PIPERACILLIN/TAZOB 2.25 GM 2.25 GM in DEXTROSE 5%-WATER - 50 ML IVPB SCH ×3 (02:02→18:02)
[2018-01-03] MEDS: INSULIN SLIDING SCALE (NOVOLOG) 1 VIAL SQ SCH ×4 (06:34→22:42)
[2018-01-03] MEDS: sitaGLIPtin PHOSPHATE 25 MG TABLET (FP) PO SCH (06:35)
[2018-01-03] MEDS: LEVOTHYROXINE NA 75 MCG TABLET (FP) PO SCH (06:35)
[2018-01-03 07:49] LABS: HEMATOCRIT 29.6 % (35.4-49); MCH 27.5 pg (25.7-33.7); MCHC 30.4 g/dl (32.0-35.9); MEAN CELL VOLUME 90.5 fl (80-96); PLATELET COUNT 193 K/MM3 (134-434); RBC 3.27 M/mm3 (4.00-5.60); RDW 20.1 % (11.9-15.9); WHITE BLOOD COUNT 6.7 K/mm3 (4.0-10.0)
[2018-01-03 08:58] LABS: INR 1.39 (0.83-1.09); PROTHROMBIN TIME (PATIENT) 16.5 SEC (9.7-13.0)
[2018-01-03 09:14] LABS: ANION GAP 12 MMOL/L (8-16); BLOOD UREA NITROGEN 11 mg/dL (7-18); CALCIUM 9.1 mg/dL (8.5-10.1); CHLORIDE 96 mmol/L (98-107); CO2 27 mmol/L (21-32); CREATININE 3.1 mg/dL (0.55-1.3); GLUCOSE,RANDOM 84 mg/dL (74-106); POTASSIUM 3.7 mmol/L (3.5-5.1); SODIUM 135 mmol/L (136-145)
[2018-01-03] MEDS ORDERED: DEXTROSE 5%-WATER - 50 ML IVPB ONE ×2 (09:54→17:20)
[2018-01-03] MEDS: metoPROLOL SUCCINATE 25 MG TAB.SR.24H (FP) PO SCH (10:14)
[2018-01-03] MEDS: POLYETHYLENE GLYCOL 3350 119 GM BTL PO SCH ×2 (10:14→22:41)
[2018-01-03] MEDS: THIAMINE HCL 100 MG TABLET (FP) PO SCH (10:14)
[2018-01-03] MEDS: SACUBITRIL/VALSARTAN 24 MG-26 MG TABLET PO SCH ×2 (10:15→22:41)
[2018-01-03] MEDS: VITAMIN B COMP W-C 1 EA TABLET PO SCH (10:15)
--- NOTE | 2018-01-03 11:29 | PN ---
Progress Note, Physician History of Present Illness: stable doing well going for amputation today in the room - Current Medication List Current Medications: Active Medications Acetaminophen (Tylenol -) 325 mg PO Q8H PRN PRN Reason: PAIN SCALE 6-10 Last Admin: 12/28/17 09:22 Dose: 325 mg Hydromorphone HCl (Dilaudid Vial -) 2 mg IVPB Q3H PRN PRN Reason: PAIN 1-5 Last Admin: 01/03/18 10:26 Dose: 2 mg Clindamycin Phosphate (Cleocin 300 Mg Premix Ivpb) 300 mg in 50 mls @ 100 mls/ hr IVPB Q8H-IV [facility]; Protocol Last Admin: 01/03/18 10:15 Dose: 100 mls/hr Piperacillin Sod/Tazobactam (Sod 2.25 gm/ Dextrose) 50 mls @ 100 mls/hr IVPB Q8H-IV [facility]; Protocol Last Admin: 01/03/18 10:13 Dose: 100 mls/hr Insulin Aspart (Novolog Vial Sliding Scale -) 1 vial SQ ACHS [facility]; Protocol Last Admin: 01/03/18 06:34 Dose: Not Given Latanoprost (Xalatan 0.005% Eye Drops -) 1 drop OD HS [facility] Last Admin: 01/02/18 22:14 Dose: 1 drop Levothyroxine Sodium (Synthroid -) 75 mcg PO 0700 [facility] Last Admin: 01/03/18 06:35 Dose: Not Given Melatonin (Melatonin) 10 mg PO HS PRN PRN Reason: INSOMNIA Last Admin: 01/01/18 22:30 Dose: 10 mg Metoprolol Succinate (Toprol Xl -) 12.5 mg PO DAILY [facility] Last Admin: 01/03/18 10:14 Dose: Not Given Multivit/Ca Carb/B Cmplx/FA/Prenat (Nephro-Fer -) 1 tablet PO DAILY [facility] Last Admin: 01/03/18 10:15 Dose: Not Given Polyethylene Glycol (Miralax (For Daily Use) -) 17 gm PO BID [facility] Last Admin: 01/03/18 10:14 Dose: Not Given Sacubitril/Valsartan (Entresto 24 Mg-26 Mg Tablet) 1 tab PO BID [facility] Last Admin: 01/03/18 10:15 Dose: Not Given Senna (Senna -) 2 tab PO HS [facility] Last Admin: 01/02/18 22:12 Dose: 2 tab Sitagliptin Phosphate (Januvia -) 25 mg PO 0700 [facility] Last Admin: 01/03/18 06:35 Dose: Not Given Thiamine HCl (Vitamin B1 -) 100 mg PO DAILY [facility] Last Admin: 01/03/18 10:14 Dose: Not Given Vancomycin HCl (Vancomycin (Pre-Docked)) 1,000 mg IVPB TuThSa@1000 [facility] Last Admin: 01/02/18 13:32 Dose: 1,000 mg - Objective Vital Signs: Vital Signs Temperature 98.7 F 01/03/18 05:35 Pulse Rate 65 01/03/18 05:35 Respiratory Rate 18 01/03/18 05:35 Blood Pressure 93/50 L 01/03/18 05:35 O2 Sat by Pulse Oximetry (%) 97 01/02/18 21:00 Constitutional: Yes: No Distress, Calm Cardiovascular: Yes: Regular Rate and Rhythm Respiratory: Yes: Regular, CTA Bilaterally Gastrointestinal: Yes: Normal Bowel Sounds, Soft Musculoskeletal: Yes: Other Extremities: Yes: Other Wound/Incision: Yes: Dressing Dry and Intact Neurological: Yes: Alert, Oriented Psychiatric: Yes: Alert, Oriented Labs: CBC, BMP 01/03/18 06:50 01/03/18 06:50 INR, PTT INR 1.39 (0.83-1.09) H 01/03/18 06:50 Assessment/Plan Impression 1. ESRD 2. hx pericardial effusion 3. hx pneumopericardium 4. hypothyroidism 5. a-fib 6. hypotension 7. hx of colon cancer 8. CHF 9. DM 10. hx of PE 11. CAD 12. right great toe gangrene patient with rt toe gangrene plan continue abx will check vanco level tomorrow amputation today wound care rest as per the team
--- NOTE | 2018-01-03 12:31 | PN ---
Progress Note (short form) - Note Progress Note: scheduled for surgery today at bedside discussed surgery / post op plan of care Vital Signs Period Temp Pulse Resp BP Sys/Yoon Pulse Ox Last 24 Hr 98.2 F-98.7 F 65-68 17-19 93-102/50-68 97 neck supple heart irreg S1/S2 +M2/6 lungs clear bilat abd - soft inc hernia midline Ext - right A-V fistula Forearm - HD access + bruit right leg swollen / tender calf ( less tense )-- foot dressing in place CBC, BMP 01/03/18 06:50 01/03/18 06:50 CBC, BMP 01/02/18 08:50 01/02/18 08:50 CBC, BMP 01/01/18 06:30 01/01/18 15:20 Microbiology 12/29/17 14:00 Blood - Post-Dialysis Blood Culture - Preliminary NO GROWTH OBTAINED AFTER 96 HOURS, INCUBATION TO CONTINUE FOR 1 DAYS. 12/29/17 14:00 Blood - Post-Dialysis Blood Culture - Preliminary NO GROWTH OBTAINED AFTER 96 HOURS, INCUBATION TO CONTINUE FOR 1 DAYS. 12/27/17 12:30 Foot - Right Gram Stain - Final 12/27/17 12:30 Foot - Right Wound Culture - Final Mr S Aureus Stenotrophomon.(X.)Maltophilia 12/26/17 12:46 Blood - Peripheral Venous Blood Culture - Final NO GROWTH AFTER 5 DAYS INCUBATION 12/26/17 12:46 Blood - Peripheral Venous Blood Culture - Final NO GROWTH AFTER 5 DAYS INCUBATION Active Medications Acetaminophen (Tylenol -) 325 mg PO Q8H PRN PRN Reason: PAIN SCALE 6-10 Last Admin: 12/28/17 09:22 Dose: 325 mg Hydromorphone HCl (Dilaudid Vial -) 2 mg IVPB Q3H PRN PRN Reason: PAIN 1-5 Last Admin: 01/03/18 10:26 Dose: 2 mg Clindamycin Phosphate (Cleocin 300 Mg Premix Ivpb) 300 mg in 50 mls @ 100 mls/ hr IVPB Q8H-IV [facility]; Protocol Last Admin: 01/03/18 10:15 Dose: 100 mls/hr Piperacillin Sod/Tazobactam (Sod 2.25 gm/ Dextrose) 50 mls @ 100 mls/hr IVPB Q8H-IV [facility]; Protocol Last Admin: 01/03/18 10:13 Dose: 100 mls/hr Insulin Aspart (Novolog Vial Sliding Scale -) 1 vial SQ ACHS ON LICENSE OF [facility]; Protocol Last Admin: 01/03/18 12:08 Dose: Not Given Latanoprost (Xalatan 0.005% Eye Drops -) 1 drop OD HS ON LICENSE OF [facility] Last Admin: 01/02/18 22:14 Dose: 1 drop Levothyroxine Sodium (Synthroid -) 75 mcg PO 0700 ON LICENSE OF [facility] Last Admin: 01/03/18 06:35 Dose: Not Given Melatonin (Melatonin) 10 mg PO HS PRN PRN Reason: INSOMNIA Last Admin: 01/01/18 22:30 Dose: 10 mg Metoprolol Succinate (Toprol Xl -) 12.5 mg PO DAILY ON LICENSE OF [facility] Last Admin: 01/03/18 10:14 Dose: Not Given Multivit/Ca Carb/B Cmplx/FA/Prenat (Nephro-Fer -) 1 tablet PO DAILY ON LICENSE OF [facility] Last Admin: 01/03/18 10:15 Dose: Not Given Polyethylene Glycol (Miralax (For Daily Use) -) 17 gm PO BID ON LICENSE OF [facility] Last Admin: 01/03/18 10:14 Dose: Not Given Sacubitril/Valsartan (Entresto 24 Mg-26 Mg Tablet) 1 tab PO BID ON LICENSE OF [facility] Last Admin: 01/03/18 10:15 Dose: Not Given Senna (Senna -) 2 tab PO HS ON LICENSE OF [facility] Last Admin: 01/02/18 22:12 Dose: 2 tab Sitagliptin Phosphate (Januvia -) 25 mg PO 0700 ON LICENSE OF [facility] Last Admin: 01/03/18 06:35 Dose: Not Given Thiamine HCl (Vitamin B1 -) 100 mg PO DAILY ON LICENSE OF [facility] Last Admin: 01/03/18 10:14 Dose: Not Given Vancomycin HCl (Vancomycin (Pre-Docked)) 1,000 mg IVPB TuThSa@1000 ON LICENSE OF [facility] Last Admin: 01/02/18 13:32 Dose: 1,000 mg Assessment/Plan Assmt # right great toe gangrene - scheduled for surgery at noon -- for TMA at bedside surgery / post op plans discussed patient cleared for surgery by cardio Abx per ID pain management # hypotension improved BP meds adjusted / held as needed for Hypotension # osteomyelitis - elevated ESR /crp /alk phos Abx per ID # hyponatremia ( Na 128) resolved Na 135 # PVD s/p angioplasty bilat LE right LE done 1 yr ago pending further study -- schedule for TMA vs BKA # CKD5 on chronic HD TTS --HD per renal # DM on insulin / sliding scale # a fib -- heparin on hold for surgery today -- scheduled OR #CAD # Cardiomyopathy s/p ICD non ischemic s/pCath # hypothyroid TSH # HFrEF Hx of EF 15 -20% # anemia of chronic disease # hx of pericardial effusion - chronic ? echo - moderate effision Cardio [place] - Dr Plasencia # hx of colon ca s/p resection # hx of PE - on a/c # hx of pneumopericardium Problem List - Problems (1) Gangrene of toe of right foot Code(s): I96 - GANGRENE, NOT ELSEWHERE CLASSIFIED (2) Diabetic foot ulcer Code(s): E11.621 - TYPE 2 DIABETES MELLITUS WITH FOOT ULCER; L97.509 - NON- PRESSURE CHRONIC ULCER OTH PRT UNSP FOOT W UNSP SEVERITY (3) Amputated toe of right foot Code(s): Z89.421 - ACQUIRED ABSENCE OF OTHER RIGHT TOE(S) (4) Atrial fibrillation Code(s): I48.91 - UNSPECIFIED ATRIAL FIBRILLATION Qualifiers: Atrial fibrillation type: permanent Qualified Code(s): I48.2 - Chronic atrial fibrillation (5) Cardiomyopathy Code(s): I42.9 - CARDIOMYOPATHY, UNSPECIFIED Qualifiers: Cardiomyopathy type: unspecified Qualified Code(s): I42.9 - Cardiomyopathy , unspecified (6) Chronic kidney disease (CKD), stage V Code(s): N18.5 - CHRONIC KIDNEY DISEASE, STAGE 5 (7) Chronic anticoagulation Code(s): Z79.01 - INTERMEDIATE (CURRENT) USE OF 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 (8) Diabetes mellitus Code(s): E11.9 - TYPE 2 DIABETES MELLITUS WITHOUT COMPLICATIONS Qualifiers: Diabetes mellitus type: type 2 Diabetes mellitus care home insulin use: with care home use Diabetes mellitus complication detail: with peripheral angiopathy with gangrene (9) ESRD (end stage renal disease) Code(s): N18.6 - END STAGE RENAL DISEASE (10) Chronic kidney disease on chronic dialysis Code(s): N18.6 - END STAGE RENAL DISEASE; Z99.2 - DEPENDENCE ON RENAL DIALYSIS (11) HTN (hypertension) Code(s): I10 - ESSENTIAL (PRIMARY) HYPERTENSION Qualifiers: Hypertension type: essential hypertension Qualified Code(s): I10 - Essential (primary) hypertension (12) ICD (implantable cardioverter-defibrillator) in place Code(s): Z95.810 - PRESENCE OF AUTOMATIC (IMPLANTABLE) CARDIAC DEFIBRILLATOR (13) Osteomyelitis Code(s): M86.9 - OSTEOMYELITIS, UNSPECIFIED Qualifiers: Osteomyelitis type: other Osteomyelitis location: foot Laterality: right Qualified Code(s): M86.8X7 - Other osteomyelitis, ankle and foot (14) Status post peripheral artery angioplasty Code(s): Z98.62 - PERIPHERAL VASCULAR ANGIOPLASTY STATUS
[2018-01-03] MEDS ORDERED: SODIUM CHLORIDE 250 ML IV PRN ×2 (12:42→15:40)
--- NOTE | 2018-01-03 12:42 | PN ---
Progress Note, Physician History of Present Illness: Pt seen and examined at bedside. He is awake and alert. He denies shortness of breath. - Current Medication List Current Medications: Active Medications Acetaminophen (Tylenol -) 325 mg PO Q8H PRN PRN Reason: PAIN SCALE 6-10 Last Admin: 12/28/17 09:22 Dose: 325 mg Hydromorphone HCl (Dilaudid Vial -) 2 mg IVPB Q3H PRN PRN Reason: PAIN 1-5 Last Admin: 01/03/18 10:26 Dose: 2 mg Clindamycin Phosphate (Cleocin 300 Mg Premix Ivpb) 300 mg in 50 mls @ 100 mls/ hr IVPB Q8H-IV [facility]; Protocol Last Admin: 01/03/18 10:15 Dose: 100 mls/hr Piperacillin Sod/Tazobactam (Sod 2.25 gm/ Dextrose) 50 mls @ 100 mls/hr IVPB Q8H-IV [facility]; Protocol Last Admin: 01/03/18 10:13 Dose: 100 mls/hr Insulin Aspart (Novolog Vial Sliding Scale -) 1 vial SQ ACHS [facility]; Protocol Last Admin: 01/03/18 12:08 Dose: Not Given Latanoprost (Xalatan 0.005% Eye Drops -) 1 drop OD HS [facility] Last Admin: 01/02/18 22:14 Dose: 1 drop Levothyroxine Sodium (Synthroid -) 75 mcg PO 0700 [facility] Last Admin: 01/03/18 06:35 Dose: Not Given Melatonin (Melatonin) 10 mg PO HS PRN PRN Reason: INSOMNIA Last Admin: 01/01/18 22:30 Dose: 10 mg Metoprolol Succinate (Toprol Xl -) 12.5 mg PO DAILY [facility] Last Admin: 01/03/18 10:14 Dose: Not Given Multivit/Ca Carb/B Cmplx/FA/Prenat (Nephro-Fer -) 1 tablet PO DAILY [facility] Last Admin: 01/03/18 10:15 Dose: Not Given Polyethylene Glycol (Miralax (For Daily Use) -) 17 gm PO BID [facility] Last Admin: 01/03/18 10:14 Dose: Not Given Sacubitril/Valsartan (Entresto 24 Mg-26 Mg Tablet) 1 tab PO BID [facility] Last Admin: 01/03/18 10:15 Dose: Not Given Senna (Senna -) 2 tab PO HS [facility] Last Admin: 01/02/18 22:12 Dose: 2 tab Sitagliptin Phosphate (Januvia -) 25 mg PO 0700 [facility] Last Admin: 01/03/18 06:35 Dose: Not Given Thiamine HCl (Vitamin B1 -) 100 mg PO DAILY [facility] Last Admin: 01/03/18 10:14 Dose: Not Given Vancomycin HCl (Vancomycin (Pre-Docked)) 1,000 mg IVPB TuThSa@1000 [facility] Last Admin: 01/02/18 13:32 Dose: 1,000 mg - Objective Vital Signs: Vital Signs Temperature 98.7 F 01/03/18 05:35 Pulse Rate 65 01/03/18 05:35 Respiratory Rate 18 01/03/18 05:35 Blood Pressure 93/50 L 01/03/18 05:35 O2 Sat by Pulse Oximetry (%) 97 01/02/18 21:00 Constitutional: Yes: Calm Eyes: Yes: Conjunctiva Clear HENT: Yes: Atraumatic Cardiovascular: Yes: S1, S2 Respiratory: Yes: On Nasal O2 Gastrointestinal: Yes: Normal Bowel Sounds, Soft Genitourinary: Yes: WNL Musculoskeletal: Yes: WNL Edema: Yes Edema: LLE: 1+, RLE: 1+ Neurological: Yes: Oriented Psychiatric: Yes: Oriented Labs: CBC, BMP 01/03/18 06:50 01/03/18 06:50 INR, PTT INR 1.39 (0.83-1.09) H 01/03/18 06:50 Problem List - Problems (1) Gangrene of toe of right foot Code(s): I96 - GANGRENE, NOT ELSEWHERE CLASSIFIED (2) ESRD (end stage renal disease) Code(s): N18.6 - END STAGE RENAL DISEASE Assessment/Plan Current Medications Generic Name Dose Route Start Last Admin Trade Name Freq PRN Reason Stop Dose Admin Acetaminophen 325 mg 12/26/17 18:04 12/28/17 09:22 Tylenol - PO 325 mg Q8H PRN Administration PAIN SCALE 6-10 Hydromorphone HCl 2 mg 12/30/17 21:18 01/03/18 10:26 Dilaudid Vial - IVPB 2 mg Q3H PRN Administration PAIN 1-5 Clindamycin Phosphate 300 mg in 50 mls @ 100 mls/hr 12/27/17 12:45 01/03/18 10:15 Cleocin 300 Mg Premix Ivpb IVPB 100 mls/hr Q8H-IV [facility] Administration Protocol Piperacillin Sod/Tazobactam 50 mls @ 100 mls/hr 12/30/17 14:00 01/03/18 10:13 Sod 2.25 gm/ Dextrose IVPB 100 mls/hr Q8H-IV [facility] Administration Protocol Insulin Aspart 1 vial 12/26/17 22:00 01/03/18 12:08 Novolog Vial Sliding Scale - SQ Not Given ACHS [facility] Protocol Latanoprost 1 drop 12/26/17 22:00 01/02/18 22:14 Xalatan 0.005% Eye Drops - OD 1 drop HS [facility] Administration Levothyroxine Sodium 75 mcg 12/27/17 07:00 01/03/18 06:35 Synthroid - PO Not Given 0700 [facility] Melatonin 10 mg 12/30/17 20:58 01/01/18 22:30 Melatonin PO 10 mg HS PRN Administration INSOMNIA Metoprolol Succinate 12.5 mg 12/27/17 10:00 01/03/18 10:14 Toprol Xl - PO Not Given DAILY [facility] Multivit/Ca Carb/B Cmplx/FA/Prenat 1 tablet 12/27/17 10:00 01/03/18 10:15 Nephro-Fer - PO Not Given DAILY [facility] Polyethylene Glycol 17 gm 12/26/17 22:00 01/03/18 10:14 Miralax (For Daily Use) - PO Not Given BID [facility] Sacubitril/Valsartan 1 tab 12/26/17 22:00 01/03/18 10:15 Entresto 24 Mg-26 Mg Tablet PO Not Given BID [facility] Senna 2 tab 12/26/17 22:00 01/02/18 22:12 Senna - PO 2 tab HS [facility] Administration Sitagliptin Phosphate 25 mg 12/27/17 07:00 01/03/18 06:35 Januvia - PO Not Given 0700 [facility] Thiamine HCl 100 mg 12/27/17 10:00 01/03/18 10:14 Vitamin B1 - PO Not Given DAILY [facility] Vancomycin HCl 1,000 mg 12/30/17 10:00 01/02/18 13:32 Vancomycin (Pre-Docked) IVPB 1,000 mg TuThSa@1000 [facility] Administration Impression 1. ESRD 2. hx pericardial effusion 3. hx pneumopericardium 4. hypothyroidism 5. a-fib 6. hypotension 7. hx of colon cancer 8. CHF 9. DM 10. hx of PE 11. CAD 12. right great toe gangrene Plan - HD in am - vascular eval today - restrict fluid intake - cont wound care - will need to limit fluid intake - abx per ID - will follow
[2018-01-03] MEDS ORDERED: ROPIVACAINE HCL 0.5% 30ML VIAL ONE (13:18)
[2018-01-03] MEDS ORDERED: LIDOCAINE HCL 2% 100 MG/5 ML DISP.SYRIN ONE (13:23)
[2018-01-03] MEDS ORDERED: MIDAZOLAM HCL 2 MG/2 ML SINGLE DOSE VIAL ONE ×2 (13:23→14:05)
[2018-01-03] MEDS ORDERED: PROPOFOL 20 ML ONE (14:12)
[2018-01-03] MEDS ORDERED: BACITRACIN 50,000 UNITS VIAL NR ONE (14:35)
--- NOTE | 2018-01-03 14:49 | PN ---
Progress Note, Physician History of Present Illness: POD#0 right TMA with good bleeding from dorsal and plantar flaps. Viable bone and muscle. Hemodynamically stable, pain adequately controlled. Manufacturing Management Associate: Dr. Ghassan Durant - Current Medication List Current Medications: Active Medications Acetaminophen (Tylenol -) 325 mg PO Q8H PRN PRN Reason: PAIN SCALE 6-10 Last Admin: 12/28/17 09:22 Dose: 325 mg Albumin Human (Albumin Human 25%) 12.5 gm IVPB Q30M [facility] Epoetin Hector (Epogen -) 8,000 unit IVPUSH ONCE ONE Stop: 01/04/18 12:43 Hydromorphone HCl (Dilaudid Vial -) 2 mg IVPB Q3H PRN PRN Reason: PAIN 1-5 Last Admin: 01/03/18 10:26 Dose: 2 mg Piperacillin Sod/Tazobactam (Sod 2.25 gm/ Dextrose) 50 mls @ 100 mls/hr IVPB Q8H-IV [facility]; Protocol Last Admin: 01/03/18 10:13 Dose: 100 mls/hr Sodium Chloride (Normal Saline -) 250 mls @ 3,000 mls/hr IV PRN PRN PRN Reason: Hypotension during Dialysis Stop: 01/04/18 12:42 Insulin Aspart (Novolog Vial Sliding Scale -) 1 vial SQ ACHS [facility]; Protocol Last Admin: 01/03/18 12:08 Dose: Not Given Latanoprost (Xalatan 0.005% Eye Drops -) 1 drop OD HS [facility] Last Admin: 01/02/18 22:14 Dose: 1 drop Levothyroxine Sodium (Synthroid -) 75 mcg PO 0700 [facility] Last Admin: 01/03/18 06:35 Dose: Not Given Melatonin (Melatonin) 10 mg PO HS PRN PRN Reason: INSOMNIA Last Admin: 01/01/18 22:30 Dose: 10 mg Metoprolol Succinate (Toprol Xl -) 12.5 mg PO DAILY [facility] Last Admin: 01/03/18 10:14 Dose: Not Given Multivit/Ca Carb/B Cmplx/FA/Prenat (Nephro-Fer -) 1 tablet PO DAILY [facility] Last Admin: 01/03/18 10:15 Dose: Not Given Polyethylene Glycol (Miralax (For Daily Use) -) 17 gm PO BID [facility] Last Admin: 01/03/18 10:14 Dose: Not Given Sacubitril/Valsartan (Entresto 24 Mg-26 Mg Tablet) 1 tab PO BID [facility] Last Admin: 01/03/18 10:15 Dose: Not Given Senna (Senna -) 2 tab PO HS [facility] Last Admin: 01/02/18 22:12 Dose: 2 tab Sitagliptin Phosphate (Januvia -) 25 mg PO 0700 [facility] Last Admin: 01/03/18 06:35 Dose: Not Given Thiamine HCl (Vitamin B1 -) 100 mg PO DAILY [facility] Last Admin: 01/03/18 10:14 Dose: Not Given Vancomycin HCl (Vancomycin (Pre-Docked)) 1,000 mg IVPB TuThSa@1000 [facility] Last Admin: 01/02/18 13:32 Dose: 1,000 mg - Objective Vital Signs: Vital Signs Temperature 98.7 F 01/03/18 05:35 Pulse Rate 65 01/03/18 05:35 Respiratory Rate 18 01/03/18 09:00 Blood Pressure 93/50 L 01/03/18 05:35 O2 Sat by Pulse Oximetry (%) 96 01/03/18 09:00 Constitutional: Yes: No Distress, Calm, Thin Neck: Yes: Supple Cardiovascular: Yes: Regular Rate and Rhythm Respiratory: Yes: Regular, Diminished Gastrointestinal: Yes: Soft, Hypoactive Bowel Sounds Extremities: Yes: Amputation (Right TMA) Edema: No Wound/Incision: Yes: Dressing Dry and Intact Labs: CBC, BMP 01/03/18 06:50 01/03/18 06:50 INR, PTT INR 1.39 (0.83-1.09) H 01/03/18 06:50 Problem List - Problems (1) Chronic kidney disease on chronic dialysis Code(s): N18.6 - END STAGE RENAL DISEASE; Z99.2 - DEPENDENCE ON RENAL DIALYSIS (2) Gangrene of toe of right foot Code(s): I96 - GANGRENE, NOT ELSEWHERE CLASSIFIED (3) Amputated toe of right foot Code(s): Z89.421 - ACQUIRED ABSENCE OF OTHER RIGHT TOE(S) (4) Atrial fibrillation Code(s): I48.91 - UNSPECIFIED ATRIAL FIBRILLATION Qualifiers: Atrial fibrillation type: permanent Qualified Code(s): I48.2 - Chronic atrial fibrillation (5) Cardiomyopathy Code(s): I42.9 - CARDIOMYOPATHY, UNSPECIFIED Qualifiers: Cardiomyopathy type: unspecified Qualified Code(s): I42.9 - Cardiomyopathy , unspecified (6) Chronic anticoagulation Code(s): Z79.01 - WIRE SPOOLER (CURRENT) USE OF 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 (7) Diabetes mellitus Code(s): E11.9 - TYPE 2 DIABETES MELLITUS WITHOUT COMPLICATIONS Qualifiers: Diabetes mellitus type: type 2 Diabetes mellitus straw boss insulin use: with chcf use Diabetes mellitus complication detail: with peripheral angiopathy with gangrene (8) ESRD (end stage renal disease) Code(s): N18.6 - END STAGE RENAL DISEASE (9) Hypothyroid Code(s): E03.9 - HYPOTHYROIDISM, UNSPECIFIED Qualifiers: Hypothyroidism type: unspecified Qualified Code(s): E03.9 - Hypothyroidism , unspecified (10) ICD (implantable cardioverter-defibrillator) in place Code(s): Z95.810 - PRESENCE OF AUTOMATIC (IMPLANTABLE) CARDIAC DEFIBRILLATOR (11) Open wound of foot Code(s): S91.309A - UNSPECIFIED OPEN WOUND, UNSPECIFIED FOOT, INITIAL ENCOUNTER Qualifiers: Encounter type: subsequent encounter Laterality: right Qualified Code(s) : S91.301D - Unspecified open wound, right foot, subsequent encounter (12) Pericardial effusion Code(s): I31.3 - PERICARDIAL EFFUSION (NONINFLAMMATORY) (13) Status post peripheral artery angioplasty Code(s): Z98.62 - PERIPHERAL VASCULAR ANGIOPLASTY STATUS (14) Pre-operative cardiovascular examination Code(s): Z01.810 - ENCOUNTER FOR PREPROCEDURAL CARDIOVASCULAR EXAMINATION Assessment/Plan 09/12/2017 Echo: Moderate pericardial effusion, no tamponade, mildly dilated LV with severely decreased LV fxn, mild-mod dilated RV with severely decreased RV fxn, mod-severe MUKUL, mild MR, mild-mod TR, mild AR 10/05/2017 Echo: Moderately dilated with severely decreased LV fxn, RV dilated with severely decreased RV fxn, mod LAE, mild MR, mod TR, mild AR, mod pericardial effusion similar to previous 1. Peripheral artery disease and gangrene right forefoot post right tibial revacularization and debridement of bone and soft tissue with toe amputations, wound vac and HBO2 planned for right TMA - pre-op CV evaluation 2. Ischemic dilated cardiomyopathy with chronic class I-II NYHA classification LV failure, compensated/euvolemic, post prophylactic ICD implant 3. CAD post AZ with evidence of demand ischemic injury angina pectoris, clinically stable 4. Persistent atrial fibrillation [id number] score of 3-4 on Coumadin with subtherapeutic INR 5. Pericardial effusion probably uremic pericarditis, moderate in severity/ unchanged 6. Diabetes mellitus 7. Hypothyroidism 8. History of PTE 9. ESRD on HD 10. History of colon cancer PLAN: 1. Empiric antibiotics course and analgesia as needed per the primary team 2. HD as per renal service and replete K 3. Hold Plavix 75 qd and coumadin and continue Heparin gtt pending formal TMA with close monitoring of CBC 4. Continue Toprol XL 12.5 qd and titrate as hemodynamics permit/tolerate 5. Continue Entresto 24/26 bid and titrate as hemodynamics permit/tolerate 6. Consider Jardiance for decreased CV event risk 7. Given absence of symptoms of acute coronary syndrome, decompensated CHF or malignant arrhythmia, may proceed with right TMA from CV-standpoint once INR is acceptable. May have to hold Toprol XL and Entresto day of surgery for hemodynamic reasons Manufacturing Management Associate: Dr. Ghassan Durant
[2018-01-03] MEDS ORDERED: ACETAMINOPHEN 325 MG TABLET (FP) PO PRN (15:40)
[2018-01-03] MEDS ORDERED: HYDROmorphone HCl 2 MG/ML VIAL IVPB PRN (15:40)
--- NOTE | 2018-01-03 15:41 | OP ---
Operative Note - Note: Operative Date: 01/03/18 Pre-Operative Diagnosis: Gangrene right forefoot Operation: Chopart level ampuatation right foot Findings: Good bleeding from dorsal and plantar flaps. Viable bone and muscle. Post-Operative Diagnosis: Same as Pre-op Surgeon: Olvin Cope Multiple Knife Edge Trimmer Operator: Stella Scott Anesthesiologist/CORPORATION OFFICER: Clinton Johnston Anesthesia: MAC Specimens Removed: Right forefoot Estimated Blood Loss (mls): 250 Operative Report Dictated: Yes
--- NOTE | 2018-01-03 16:46 | OP ---
DATE OF OPERATION: 01/03/2018 SURGEON: Olvin Cope MD BENEFITS PROCESSOR: EDWIN Lenz PROCEDURE: Chopart level amputation, right foot. PREOPERATIVE DIAGNOSIS: Gangrene of distal right foot with failed transmetatarsal amputation. POSTOPERATIVE DIAGNOSIS: Gangrene of distal right foot with failed transmetatarsal amputation. ANESTHESIA: Regional block. ANESTHESIOLOGIST: Clinton Johnston MD OPERATIVE FINDINGS: The distal aspect of the foot was necrotic around the 1st toe, with an open wound overlying the previous transmetatarsal amputation of the 2nd through 5th toes. There was purulent necrosis of the skin along the head of the 1st metatarsal to its proximal section. On exploration, there was good bleeding from both the dorsal and plantar aspects of the foot with no obvious pus in the subcutaneous tissues or around the tendons. OPERATIVE PROCEDURE: Following routine patient identification, the right foot received an ankle block and was then prepped with Betadine. Timeout was performed. An incision was made proximal to the areas of gangrene using cautery to divide the subcutaneous tissues down to the bone dorsally. The proximal metatarsals were transected with an oscillating saw and then they were from the plantar flap using cautery and the specimen removed. The bones were then further exposed by raising a flap on the dorsum of the foot and re-excised through the tarsometatarsal joints to effect a Chopart level. The edge of the bones were smoothed with rongeur and rasp. The wound was pulse irrigated with bacitracin solution. Additional soft tissue debridement of the plantar flap was then carried out to remove tendons and fascia. Cautery was used to obtain hemostasis. The major vessels were calcified. The wound was irrigated a final time with bacitracin solution and then the flaps were approximated using mattress sutures of 2-0 nylon. At the medial edge of the incision, it was felt that the tissue would not accept sutures, so this was left open and packed with iodoform gauze. Dressing consisting of Xeroform, gauze fluffs, ABD pad, Kerlix and Combine was applied and the patient was taken to the recovery room in stable condition. Aislinn SENIOR/[id number]
[2018-01-03] MEDS ORDERED: INSULIN (NOVOLOG) ASPART 100 UNITS/ML 10ML VIAL ONE (17:51)
[2018-01-03] MEDS: HYDROmorphone HCl 2 MG/ML VIAL IVPUSH PRN ×2 (18:01→22:31)
[2018-01-03] MEDS: MELATONIN 5 MG TABLETS PO PRN (22:31)
[2018-01-03] MEDS: SENNOSIDES 8.6MG TABLET (FP) PO SCH (22:31)
[2018-01-03] MEDS: LATANOPROST 0.005% OPHTH SOLN 2.5ML BOTTLE OD SCH (23:00)
[2018-01-04] MEDS ORDERED: PIPERACILLIN/TAZOBACTAM 2.25 GM VIAL IVPB ONE ×3 (01:06→18:14)
[2018-01-04] MEDS: PIPERACILLIN/TAZOB 2.25 GM 2.25 GM in DEXTROSE 5%-WATER - 50 ML IVPB SCH ×3 (03:00→18:22)
[2018-01-04] MEDS: HYDROmorphone HCl 2 MG/ML VIAL IVPUSH PRN (03:00)
[2018-01-04] MEDS: LEVOTHYROXINE NA 75 MCG TABLET (FP) PO SCH (06:51)
[2018-01-04] MEDS: sitaGLIPtin PHOSPHATE 25 MG TABLET (FP) PO SCH (06:51)
[2018-01-04] MEDS: INSULIN SLIDING SCALE (NOVOLOG) 1 VIAL SQ SCH ×4 (06:51→22:16)
[2018-01-04] MEDS ORDERED: PROMETHAZINE HCL 25 MG/1 ML VIAL IVPB PRN (09:18)
[2018-01-04] MEDS ORDERED: ONDANSETRON 4 MG/2 ML VIAL IVPUSH PRN (09:18)
[2018-01-04] MEDS ORDERED: oxyCODONE HCL 5 MG TABLET PO PRN (09:18)
[2018-01-04] MEDS ORDERED: DEXTROSE 5%-WATER - 50 ML IVPB ONE ×2 (09:19→18:14)
[2018-01-04] MEDS: THIAMINE HCL 100 MG TABLET (FP) PO SCH (09:20)
[2018-01-04] MEDS: VITAMIN B COMP W-C 1 EA TABLET PO SCH (09:20)
[2018-01-04] MEDS: POLYETHYLENE GLYCOL 3350 119 GM BTL PO SCH ×2 (09:21→22:17)
[2018-01-04] MEDS ORDERED: HYDROmorphone HCl 2 MG/ML VIAL IVPUSH PRN (09:24)
[2018-01-04] MEDS: SACUBITRIL/VALSARTAN 24 MG-26 MG TABLET PO SCH ×2 (09:26→22:18)
[2018-01-04] MEDS: metoPROLOL SUCCINATE 25 MG TAB.SR.24H (FP) PO SCH (09:26)
[2018-01-04] MEDS ORDERED: LACTATED RINGERS SOLUTION 1,000 ML IV SCH (09:30)
--- NOTE | 2018-01-04 09:30 | PN ---
Progress Note (short form) - Note Progress Note: s/p TMA poor pain control / pain in pain now / very upset Pain meds increased to 4 mg q 3 PRN Vital Signs Period Temp Pulse Resp BP Sys/Yoon Pulse Ox Last 24 Hr 97.7 F-98.1 F 65-67 12-22 88-102/47-61 96-99 neck supple heart irreg S1/S2 +M2/6 lungs clear bilat abd - soft inc hernia midline Ext - right A-V fistula Forearm - HD access + bruit left leg elevated / surgical dressing in place / dry 01/03/18 06:50 01/03/18 06:50 CBC, BMP 01/02/18 08:50 01/02/18 08:50 CBC, BMP 01/01/18 06:30 01/01/18 15:20 Microbiology 12/29/17 14:00 Blood - Post-Dialysis Blood Culture - Final NO GROWTH AFTER 5 DAYS INCUBATION 12/29/17 14:00 Blood - Post-Dialysis Blood Culture - Final NO GROWTH AFTER 5 DAYS INCUBATION 12/27/17 12:30 Foot - Right Gram Stain - Final 12/27/17 12:30 Foot - Right Wound Culture - Final Mr S Aureus Stenotrophomon.(X.)Maltophilia 12/26/17 12:46 Blood - Peripheral Venous Blood Culture - Final NO GROWTH AFTER 5 DAYS INCUBATION 12/26/17 12:46 Blood - Peripheral Venous Blood Culture - Final NO GROWTH AFTER 5 DAYS INCUBATION Active Medications Acetaminophen (Tylenol -) 325 mg PO Q8H PRN PRN Reason: PAIN SCALE 6-10 Albumin Human (Albumin Human 25%) 12.5 gm IVPB Q30M [facility] Epoetin Hector (Epogen -) 8,000 unit IVPUSH ONCE ONE Stop: 01/04/18 12:43 Fentanyl (Sublimaze Injection -) 25 mcg IVPUSH [id number] PRN PRN Reason: PAIN-PACU ORDER X 4 DOSES ONLY Last Admin: 01/03/18 15:55 Dose: 25 mcg Hydromorphone HCl (Dilaudid Vial -) 2 mg IVPB Q4H PRN PRN Reason: PAIN 1-5 Last Admin: 01/04/18 06:55 Dose: 2 mg Hydromorphone HCl (Dilaudid Vial -) 4 mg IVPUSH Q3H PRN PRN Reason: PAIN LEVEL 6-10 Sodium Chloride (Normal Saline -) 250 mls @ 3,000 mls/hr IV PRN PRN PRN Reason: Hypotension during Dialysis Stop: 01/04/18 12:42 Piperacillin Sod/Tazobactam (Sod 2.25 gm/ Dextrose) 50 mls @ 100 mls/hr IVPB Q8H-IV [facility]; Protocol Last Admin: 01/04/18 09:20 Dose: 100 mls/hr Insulin Aspart (Novolog Vial Sliding Scale -) 1 vial SQ ACHS [facility]; Protocol Last Admin: 01/04/18 06:51 Dose: Not Given Latanoprost (Xalatan 0.005% Eye Drops -) 1 drop OD HS [facility] Last Admin: 01/03/18 23:00 Dose: 1 drop Levothyroxine Sodium (Synthroid -) 75 mcg PO 0700 [facility] Last Admin: 01/04/18 06:51 Dose: 75 mcg Melatonin (Melatonin) 10 mg PO HS PRN PRN Reason: INSOMNIA Last Admin: 01/03/18 22:31 Dose: 10 mg Metoprolol Succinate (Toprol Xl -) 12.5 mg PO DAILY [facility] Last Admin: 01/04/18 09:26 Dose: Not Given Multivit/Ca Carb/B Cmplx/FA/Prenat (Nephro-Fer -) 1 tablet PO DAILY [facility] Last Admin: 01/04/18 09:20 Dose: 1 tablet Polyethylene Glycol (Miralax (For Daily Use) -) 17 gm PO BID [facility] Last Admin: 01/04/18 09:21 Dose: Not Given Sacubitril/Valsartan (Entresto 24 Mg-26 Mg Tablet) 1 tab PO BID [facility] Last Admin: 01/04/18 09:26 Dose: Not Given Senna (Senna -) 2 tab PO HS [facility] Last Admin: 01/03/18 22:31 Dose: 2 tab Sitagliptin Phosphate (Januvia -) 25 mg PO 0700 [facility] Last Admin: 01/04/18 06:51 Dose: 25 mg Thiamine HCl (Vitamin B1 -) 100 mg PO DAILY [facility] Last Admin: 01/04/18 09:20 Dose: 100 mg Vancomycin HCl (Vancomycin (Pre-Docked)) 1,000 mg IVPB TuThSa@1000 [facility] Assessment/Plan Assmt # right great toe gangrene - POD 1 -TMA Abx per ID pain management poor - will adjust / observe for hypotension # hypotension improved BP meds adjusted / held as needed for Hypotension # hyponatremia ( Na 128) resolved Na 135 # PVD s/p angioplasty bilat LE right LE done 1 yr ago # CKD5 on chronic HD TTS --HD per renal # DM on insulin / sliding scale # a fib -- to resume a/c per surgery #CAD # Cardiomyopathy s/p ICD non ischemic s/pCath # hypothyroid TSH # HFrEF Hx of EF 15 -20% # anemia of chronic disease # hx of pericardial effusion - chronic ? echo - moderate effision Cardio [place] - Dr Plasencia # hx of colon ca s/p resection # hx of PE - on a/c # hx of pneumopericardium Problem List - Problems (1) Gangrene of toe of right foot Code(s): I96 - GANGRENE, NOT ELSEWHERE CLASSIFIED (2) Diabetic foot ulcer Code(s): E11.621 - TYPE 2 DIABETES MELLITUS WITH FOOT ULCER; L97.509 - NON- PRESSURE CHRONIC ULCER OTH PRT UNSP FOOT W UNSP SEVERITY (3) Amputated toe of right foot Code(s): Z89.421 - ACQUIRED ABSENCE OF OTHER RIGHT TOE(S) (4) Atrial fibrillation Code(s): I48.91 - UNSPECIFIED ATRIAL FIBRILLATION Qualifiers: Atrial fibrillation type: permanent Qualified Code(s): I48.2 - Chronic atrial fibrillation (5) Cardiomyopathy Code(s): I42.9 - CARDIOMYOPATHY, UNSPECIFIED Qualifiers: Cardiomyopathy type: unspecified Qualified Code(s): I42.9 - Cardiomyopathy , unspecified (6) Chronic kidney disease (CKD), stage V Code(s): N18.5 - CHRONIC KIDNEY DISEASE, STAGE 5 (7) Chronic anticoagulation Code(s): Z79.01 - [employer] (CURRENT) USE OF 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 (8) Diabetes mellitus Code(s): E11.9 - TYPE 2 DIABETES MELLITUS WITHOUT COMPLICATIONS Qualifiers: Diabetes mellitus type: type 2 Diabetes mellitus electronics installer insulin use: with electronics installer use Diabetes mellitus complication detail: with peripheral angiopathy with gangrene (9) ESRD (end stage renal disease) Code(s): N18.6 - END STAGE RENAL DISEASE (10) Chronic kidney disease on chronic dialysis Code(s): N18.6 - END STAGE RENAL DISEASE; Z99.2 - DEPENDENCE ON RENAL DIALYSIS (11) HTN (hypertension) Code(s): I10 - ESSENTIAL (PRIMARY) HYPERTENSION Qualifiers: Hypertension type: essential hypertension Qualified Code(s): I10 - Essential (primary) hypertension (12) ICD (implantable cardioverter-defibrillator) in place Code(s): Z95.810 - PRESENCE OF AUTOMATIC (IMPLANTABLE) CARDIAC DEFIBRILLATOR (13) Osteomyelitis Code(s): M86.9 - OSTEOMYELITIS, UNSPECIFIED Qualifiers: Osteomyelitis type: other Osteomyelitis location: foot Laterality: right Qualified Code(s): M86.8X7 - Other osteomyelitis, ankle and foot (14) Status post peripheral artery angioplasty Code(s): Z98.62 - PERIPHERAL VASCULAR ANGIOPLASTY STATUS
--- NOTE | 2018-01-04 10:03 | PN ---
Progress Note (short form) - Note Progress Note: Anesthesia post op Pt seen and examined S:Alert and awake c/o pain O: Vital Signs Temperature 97.8 F 01/04/18 09:25 Pulse Rate 65 01/04/18 09:25 Respiratory Rate 22 H 01/04/18 09:25 Blood Pressure 97/57 L 01/04/18 09:25 O2 Sat by Pulse Oximetry (%) 97 01/03/18 21:00 CBC, BMP 01/03/18 06:50 01/03/18 06:50 a/p: Current Active Problems Chronic kidney disease (CKD), stage V (Acute) Chronic kidney disease on chronic dialysis (Acute) Diabetic foot ulcer (Acute) Gangrene of toe of right foot (Acute) Pre-operative cardiovascular examination (Acute) s/p Right TMA doing well post op Increase pain med dosage Continue current care Gm Grimm MD
[2018-01-04] MEDS ORDERED: EPOETIN ALFA 2,000 UNIT/1 ML VIAL IVPUSH ONE (12:42)
[2018-01-04] MEDS ORDERED: ALBUMIN HUMAN 25% 12.5 GM/50 ML VIAL IVPB SCH (12:45)
--- NOTE | 2018-01-04 12:50 | PN ---
Progress Note, Physician History of Present Illness: Pt seen and examined at bedside. He denies shortness of breath. He has post op foot pain. - Current Medication List Current Medications: Active Medications Acetaminophen (Tylenol -) 325 mg PO Q8H PRN PRN Reason: PAIN SCALE 6-10 Albumin Human (Albumin Human 25%) 12.5 gm IVPB Q30M [facility] Epoetin Hector (Epogen -) 8,000 unit IVPUSH ONCE ONE Stop: 01/04/18 12:43 Fentanyl (Sublimaze Injection -) 25 mcg IVPUSH [id number] PRN PRN Reason: PAIN-PACU ORDER X 4 DOSES ONLY Last Admin: 01/03/18 15:55 Dose: 25 mcg Hydromorphone HCl (Dilaudid Vial -) 2 mg IVPB Q4H PRN PRN Reason: PAIN 1-5 Last Admin: 01/04/18 06:55 Dose: 2 mg Hydromorphone HCl (Dilaudid Vial -) 4 mg IVPB Q3H PRN PRN Reason: PAIN LEVEL 6-10 Sodium Chloride (Normal Saline -) 250 mls @ 3,000 mls/hr IV PRN PRN PRN Reason: Hypotension during Dialysis Stop: 01/04/18 12:42 Piperacillin Sod/Tazobactam (Sod 2.25 gm/ Dextrose) 50 mls @ 100 mls/hr IVPB Q8H-IV [facility]; Protocol Last Admin: 01/04/18 09:20 Dose: 100 mls/hr Insulin Aspart (Novolog Vial Sliding Scale -) 1 vial SQ ACHS [facility]; Protocol Last Admin: 01/04/18 11:38 Dose: Not Given Latanoprost (Xalatan 0.005% Eye Drops -) 1 drop OD HS [facility] Last Admin: 01/03/18 23:00 Dose: 1 drop Levothyroxine Sodium (Synthroid -) 75 mcg PO 0700 [facility] Last Admin: 01/04/18 06:51 Dose: 75 mcg Melatonin (Melatonin) 10 mg PO HS PRN PRN Reason: INSOMNIA Last Admin: 01/03/18 22:31 Dose: 10 mg Metoprolol Succinate (Toprol Xl -) 12.5 mg PO DAILY [facility] Last Admin: 01/04/18 09:26 Dose: Not Given Multivit/Ca Carb/B Cmplx/FA/Prenat (Nephro-Fer -) 1 tablet PO DAILY [facility] Last Admin: 01/04/18 09:20 Dose: 1 tablet Polyethylene Glycol (Miralax (For Daily Use) -) 17 gm PO BID [facility] Last Admin: 01/04/18 09:21 Dose: Not Given Sacubitril/Valsartan (Entresto 24 Mg-26 Mg Tablet) 1 tab PO BID [facility] Last Admin: 01/04/18 09:26 Dose: Not Given Senna (Senna -) 2 tab PO HS [facility] Last Admin: 01/03/18 22:31 Dose: 2 tab Sitagliptin Phosphate (Januvia -) 25 mg PO 0700 [facility] Last Admin: 01/04/18 06:51 Dose: 25 mg Thiamine HCl (Vitamin B1 -) 100 mg PO DAILY [facility] Last Admin: 01/04/18 09:20 Dose: 100 mg Vancomycin HCl (Vancomycin (Pre-Docked)) 1,000 mg IVPB TuThSa@1000 [facility] - Objective Vital Signs: Vital Signs Temperature 97.8 F 01/04/18 09:25 Pulse Rate 65 01/04/18 09:25 Respiratory Rate 22 H 01/04/18 09:25 Blood Pressure 97/57 L 01/04/18 09:25 O2 Sat by Pulse Oximetry (%) 97 01/03/18 21:00 Constitutional: Yes: Calm Eyes: Yes: Conjunctiva Clear HENT: Yes: Atraumatic Cardiovascular: Yes: S1, S2 Respiratory: Yes: On Nasal O2 Gastrointestinal: Yes: Normal Bowel Sounds, Soft Genitourinary: Yes: WNL Edema: Yes Edema: LLE: 1+, RLE: 1+ Wound/Incision: Yes: Dressing Dry and Intact Neurological: Yes: Oriented Psychiatric: Yes: Oriented Labs: CBC, BMP 01/03/18 06:50 01/03/18 06:50 INR, PTT INR 1.39 (0.83-1.09) H 01/03/18 06:50 Problem List - Problems (1) Gangrene of toe of right foot Code(s): I96 - GANGRENE, NOT ELSEWHERE CLASSIFIED (2) ESRD (end stage renal disease) Code(s): N18.6 - END STAGE RENAL DISEASE Assessment/Plan Current Medications Generic Name Dose Route Start Last Admin Trade Name Freq PRN Reason Stop Dose Admin Acetaminophen 325 mg 01/03/18 15:40 Tylenol - PO Q8H PRN PAIN SCALE 6-10 Albumin Human 12.5 gm 01/04/18 12:45 Albumin Human 25% IVPB Q30M [facility] Epoetin Hector 8,000 unit 01/04/18 12:42 Epogen - IVPUSH 01/04/18 12:43 ONCE ONE Fentanyl 25 mcg 01/03/18 15:38 01/03/18 15:55 Sublimaze Injection - IVPUSH 25 mcg [id number] PRN Administration PAIN-PACU ORDER X 4 DOSES ONLY Hydromorphone HCl 2 mg 01/03/18 15:40 01/04/18 06:55 Dilaudid Vial - IVPB 2 mg Q4H PRN Administration PAIN 1-5 Hydromorphone HCl 4 mg 01/04/18 10:27 Dilaudid Vial - IVPB Q3H PRN PAIN LEVEL 6-10 Sodium Chloride 250 mls @ 3,000 mls/hr 01/03/18 15:40 Normal Saline - IV 01/04/18 12:42 PRN PRN Hypotension during Dialysis Piperacillin Sod/Tazobactam 50 mls @ 100 mls/hr 01/03/18 18:00 01/04/18 09:20 Sod 2.25 gm/ Dextrose IVPB 100 mls/hr Q8H-IV [facility] Administration Protocol Insulin Aspart 1 vial 01/03/18 16:30 01/04/18 11:38 Novolog Vial Sliding Scale - SQ Not Given ACHS [facility] Protocol Latanoprost 1 drop 01/03/18 22:00 01/03/18 23:00 Xalatan 0.005% Eye Drops - OD 1 drop HS [facility] Administration Levothyroxine Sodium 75 mcg 01/04/18 07:00 01/04/18 06:51 Synthroid - PO 75 mcg 0700 [facility] Administration Melatonin 10 mg 01/03/18 22:00 01/03/18 22:31 Melatonin PO 10 mg HS PRN Administration INSOMNIA Metoprolol Succinate 12.5 mg 01/04/18 10:00 01/04/18 09:26 Toprol Xl - PO Not Given DAILY [facility] Multivit/Ca Carb/B Cmplx/FA/Prenat 1 tablet 01/04/18 10:00 01/04/18 09:20 Nephro-Fer - PO 1 tablet DAILY [facility] Administration Polyethylene Glycol 17 gm 01/03/18 22:00 01/04/18 09:21 Miralax (For Daily Use) - PO Not Given BID [facility] Sacubitril/Valsartan 1 tab 01/03/18 22:00 01/04/18 09:26 Entresto 24 Mg-26 Mg Tablet PO Not Given BID [facility] Senna 2 tab 01/03/18 22:00 01/03/18 22:31 Senna - PO 2 tab HS [facility] Administration Sitagliptin Phosphate 25 mg 01/04/18 07:00 01/04/18 06:51 Januvia - PO 25 mg 0700 [facility] Administration Thiamine HCl 100 mg 01/04/18 10:00 01/04/18 09:20 Vitamin B1 - PO 100 mg DAILY [facility] Administration Vancomycin HCl 1,000 mg 01/04/18 10:00 Vancomycin (Pre-Docked) IVPB TuThSa@1000 [facility] Impression 1. ESRD 2. hx pericardial effusion 3. hx pneumopericardium 4. hypothyroidism 5. a-fib 6. hypotension 7. hx of colon cancer 8. CHF 9. DM 10. hx of PE 11. CAD 12. right great toe gangrene Plan - HD today - ointment for dry skin - discussed fluid intake - cont wound care - abx per ID - will follow
[2018-01-04] MEDS: HYDROmorphone HCl 2 MG/ML VIAL IVPB PRN ×3 (13:30→23:45)
--- NOTE | 2018-01-04 14:08 | PN ---
Progress Note (short form) - Note Progress Note: Chief Complaint: Events noted, notes reviewed, denies any chest pain or dyspnea , resting in bed History of Present Illness: Seen and examined. Events noted, notes reviewed, denies any chest pain or dyspnea, resting in bed Post Chopart level amputation right foot Echocardiography dated 09/12/2017 revealed moderate pericardial effusion, no tamponade, mildly dilated LV with severely decreased LV fxn, mild-mod dilated RV with severely decreased RV fxn, mod-severe MUKUL, mild MR, mild-mod TR, mild AR Echocardiography dated 10/05/2017 revealed moderately dilated with severely decreased LV fxn, RV dilated with severely decreased RV fxn, mod LAE, mild MR, mod TR, mild AR, mod pericardial effusion similar to previous Echocardiography dated 08/11/2017 revealed mildly dilated LV with severely decreased LV function, mild-moderately dilated RV with moderately decreased RV function, moderate LAE, mild MR, TR, AR, moderate pericardial effusion with evidence of cardiac tamponade Lexiscan MPI study dated 11/11/2016 revealed large GA involving apex, inferior wall, infero-lateral small area mild royce-infarct ischemia mid anterior wall, dilated severely decreased LVEF 26, RV dilated - Current Medication List Current Medications Acetaminophen (Tylenol -) 325 mg PO Q8H PRN PRN Reason: PAIN SCALE 6-10 Albumin Human (Albumin Human 25%) 12.5 gm IVPB Q30M [facility] Epoetin Hector (Epogen -) 8,000 unit IVPUSH ONCE ONE Stop: 01/04/18 12:43 Fentanyl (Sublimaze Injection -) 25 mcg IVPUSH [id number] PRN PRN Reason: PAIN-PACU ORDER X 4 DOSES ONLY Last Admin: 01/03/18 15:55 Dose: 25 mcg Hydromorphone HCl (Dilaudid Vial -) 2 mg IVPB Q4H PRN PRN Reason: PAIN 1-5 Last Admin: 01/04/18 06:55 Dose: 2 mg Hydromorphone HCl (Dilaudid Vial -) 4 mg IVPB Q3H PRN PRN Reason: PAIN LEVEL 6-10 Last Admin: 01/04/18 13:30 Dose: 4 mg Sodium Chloride (Normal Saline -) 250 mls @ 3,000 mls/hr IV PRN PRN PRN Reason: Hypotension during Dialysis Stop: 01/04/18 12:42 Piperacillin Sod/Tazobactam (Sod 2.25 gm/ Dextrose) 50 mls @ 100 mls/hr IVPB Q8H-IV [facility]; Protocol Last Admin: 01/04/18 09:20 Dose: 100 mls/hr Insulin Aspart (Novolog Vial Sliding Scale -) 1 vial SQ ACHS [facility]; Protocol Last Admin: 01/04/18 11:38 Dose: Not Given Latanoprost (Xalatan 0.005% Eye Drops -) 1 drop OD HS [facility] Last Admin: 01/03/18 23:00 Dose: 1 drop Levothyroxine Sodium (Synthroid -) 75 mcg PO 0700 [facility] Last Admin: 01/04/18 06:51 Dose: 75 mcg Melatonin (Melatonin) 10 mg PO HS PRN PRN Reason: INSOMNIA Last Admin: 01/03/18 22:31 Dose: 10 mg Metoprolol Succinate (Toprol Xl -) 12.5 mg PO DAILY [facility] Last Admin: 01/04/18 09:26 Dose: Not Given Multi-Ingredient Lotion (Eucerin (Large Jar) -) 1 applic TP BID PRN PRN Reason: DRY SKIN Multivit/Ca Carb/B Cmplx/FA/Prenat (Nephro-Fer -) 1 tablet PO DAILY [facility] Last Admin: 01/04/18 09:20 Dose: 1 tablet Polyethylene Glycol (Miralax (For Daily Use) -) 17 gm PO BID [facility] Last Admin: 01/04/18 09:21 Dose: Not Given Sacubitril/Valsartan (Entresto 24 Mg-26 Mg Tablet) 1 tab PO BID [facility] Last Admin: 01/04/18 09:26 Dose: Not Given Senna (Senna -) 2 tab PO HS [facility] Last Admin: 01/03/18 22:31 Dose: 2 tab Sitagliptin Phosphate (Januvia -) 25 mg PO 0700 [facility] Last Admin: 01/04/18 06:51 Dose: 25 mg Thiamine HCl (Vitamin B1 -) 100 mg PO DAILY [facility] Last Admin: 01/04/18 09:20 Dose: 100 mg Vancomycin HCl (Vancomycin (Pre-Docked)) 1,000 mg IVPB TuThSa@1000 [facility] - Objective Vital Signs: Last Vital Signs Temp Pulse Resp BP Pulse Ox 97.8 F 65 22 H 97/57 L 97 01/04/18 09:25 11/22/18 09:25 01/04/18 09:25 01/04/18 09:25 01/03/18 21:00 Intake & Output 01/01/18 01/02/18 01/03/18 01/04/18 23:59 23:59 23:59 23:59 Intake Total 876 1762 2525 500 Output Total 250 Balance 876 1762 2275 500 Weight 194 lb 196 lb 192 lb 2 oz 194 lb 1 oz HEENT: Atraumatic Neck: Supple Negative JVD Cardiovascular: S1 S2 Regular Rate and Rhythm Respiratory: CTA Bilaterally Gastrointestinal: Soft benign Normal Bowel Sounds Ext: Trace Edema Dressing in Situ Labs: CBC, BMP 01/03/18 06:50 01/03/18 06:50 INR, PTT INR 1.39 (0.83-1.09) H 01/03/18 06:50 ASSESSMENT and PLAN: ASSESSMENT: 1. Peripheral artery disease, gangrene right forefoot post right tibial revacularization and debridement of bone and soft tissue post Chopart level amputation right foot 2. Ischemic dilated cardiomyopathy with chronic class I-II NYHA classification LV failure, compensated/euvolemic, post prophylactic ICD implant 3. CAD post GA with evidence of history of ischemic injury angina pectoris, clinically stable 4. Persistent atrial fibrillation [id number] score of 3-4 on Coumadin 5. Pericardial effusion probably uremic pericarditis, moderate in severity/ unchanged 6. Diabetes mellitus 7. Hypothyroidism 8. History of PTE 9. ESRD 10. History of colon cancer PLAN: 1. Antibiotics as per the primary team 2. HD as per renal service 3. Resume Plavix and Coumadin as per INR with close monitoring of CBC once cleared by vascular surgery 4. Continue Toprol XL and titrate as hemodynamics permit/tolerate 5. Continue Entresto and titrate as hemodynamics permit/tolerate Rafaela Aguilar MD
--- NOTE | 2018-01-04 14:48 | PN ---
Progress Note, Physician History of Present Illness: stable s/p amputation dressing intact patient comfortable - Current Medication List Current Medications: Active Medications Acetaminophen (Tylenol -) 325 mg PO Q8H PRN PRN Reason: PAIN SCALE 6-10 Albumin Human (Albumin Human 25%) 12.5 gm IVPB Q30M [facility] Stop: 01/04/18 17:01 Epoetin Hector (Procrit -) 8,000 unit IVPUSH ONCE ONE Stop: 01/04/18 15:31 Fentanyl (Sublimaze Injection -) 25 mcg IVPUSH [id number] PRN PRN Reason: PAIN-PACU ORDER X 4 DOSES ONLY Last Admin: 01/03/18 15:55 Dose: 25 mcg Hydromorphone HCl (Dilaudid Vial -) 2 mg IVPB Q4H PRN PRN Reason: PAIN 1-5 Last Admin: 01/04/18 06:55 Dose: 2 mg Hydromorphone HCl (Dilaudid Vial -) 4 mg IVPB Q3H PRN PRN Reason: PAIN LEVEL 6-10 Last Admin: 01/04/18 13:30 Dose: 4 mg Piperacillin Sod/Tazobactam (Sod 2.25 gm/ Dextrose) 50 mls @ 100 mls/hr IVPB Q8H-IV [facility]; Protocol Last Admin: 01/04/18 09:20 Dose: 100 mls/hr Insulin Aspart (Novolog Vial Sliding Scale -) 1 vial SQ ACHS [facility]; Protocol Last Admin: 01/04/18 11:38 Dose: Not Given Latanoprost (Xalatan 0.005% Eye Drops -) 1 drop OD HS [facility] Last Admin: 01/03/18 23:00 Dose: 1 drop Levothyroxine Sodium (Synthroid -) 75 mcg PO 0700 [facility] Last Admin: 01/04/18 06:51 Dose: 75 mcg Melatonin (Melatonin) 10 mg PO HS PRN PRN Reason: INSOMNIA Last Admin: 01/03/18 22:31 Dose: 10 mg Metoprolol Succinate (Toprol Xl -) 12.5 mg PO DAILY [facility] Last Admin: 01/04/18 09:26 Dose: Not Given Multi-Ingredient Lotion (Eucerin (Large Jar) -) 1 applic TP BID PRN PRN Reason: DRY SKIN Multivit/Ca Carb/B Cmplx/FA/Prenat (Nephro-Fer -) 1 tablet PO DAILY [facility] Last Admin: 01/04/18 09:20 Dose: 1 tablet Polyethylene Glycol (Miralax (For Daily Use) -) 17 gm PO BID [facility] Last Admin: 01/04/18 09:21 Dose: Not Given Sacubitril/Valsartan (Entresto 24 Mg-26 Mg Tablet) 1 tab PO BID [facility] Last Admin: 01/04/18 09:26 Dose: Not Given Senna (Senna -) 2 tab PO HS [facility] Last Admin: 01/03/18 22:31 Dose: 2 tab Sitagliptin Phosphate (Januvia -) 25 mg PO 0700 [facility] Last Admin: 01/04/18 06:51 Dose: 25 mg Thiamine HCl (Vitamin B1 -) 100 mg PO DAILY [facility] Last Admin: 01/04/18 09:20 Dose: 100 mg Vancomycin HCl (Vancomycin (Pre-Docked)) 1,000 mg IVPB TuThSa@1000 [facility] - Objective Vital Signs: Vital Signs Temperature 98.0 F 01/04/18 14:10 Pulse Rate 64 01/04/18 14:15 Respiratory Rate 18 01/04/18 14:15 Blood Pressure 98/55 L 01/04/18 14:15 O2 Sat by Pulse Oximetry (%) 97 01/03/18 21:00 Constitutional: Yes: No Distress, Calm Cardiovascular: Yes: Regular Rate and Rhythm Respiratory: Yes: Regular, CTA Bilaterally Gastrointestinal: Yes: Normal Bowel Sounds, Soft Musculoskeletal: Yes: WNL Extremities: Yes: Other Wound/Incision: Yes: Dressing Dry and Intact Neurological: Yes: Alert, Oriented Psychiatric: Yes: Alert, Oriented Labs: CBC, BMP 01/03/18 06:50 01/03/18 06:50 INR, PTT INR 1.39 (0.83-1.09) H 01/03/18 06:50 Assessment/Plan Impression 1. ESRD 2. hx pericardial effusion 3. hx pneumopericardium 4. hypothyroidism 5. a-fib 6. hypotension 7. hx of colon cancer 8. CHF 9. DM 10. hx of PE 11. CAD 12. right great toe gangrene patient with rt toe gangrene plan continue abx await for cx reports wound care rest as per vascular
[2018-01-04 15:28] LABS: ALBUMIN 2.3 g/dl (3.4-5.0); ALK PHOS 174 U/L (45-117); ANION GAP 9 MMOL/L (8-16); BILIRUBIN,TOTAL 0.8 mg/dL (0.2-1); BLOOD UREA NITROGEN 18 mg/dL (7-18); CALCIUM 8.7 mg/dL (8.5-10.1); CHLORIDE 94 mmol/L (98-107); CO2 28 mmol/L (21-32); CREATININE 4.3 mg/dL (0.55-1.3); GLUCOSE,RANDOM 108 mg/dL (74-106); POTASSIUM 3.7 mmol/L (3.5-5.1); SGOT/AST 23 U/L (15-37); SGPT/ALT 13 U/L (13-61); SODIUM 131 mmol/L (136-145); TOT PROT 7.2 g/dl (6.4-8.2)
[2018-01-04] MEDS ORDERED: EPOETIN ALFA 10,000 UNIT/1 ML VIAL IVPUSH ONE (15:30)
[2018-01-04] MEDS: ALBUMIN HUMAN 25% 12.5 GM/50 ML VIAL IVPB SCH ×4 (15:30→17:00)
[2018-01-04 15:33] LABS: HEMATOCRIT 27.4 % (35.4-49); HEMOGLOBIN 8.2 GM/dL (11.7-16.9); MCH 27.1 pg (25.7-33.7); MCHC 29.9 g/dl (32.0-35.9); MEAN CELL VOLUME 90.5 fl (80-96); MEAN PLT VOLUME 9.4 fl (7.5-11.1); PLATELET COUNT 202 K/MM3 (134-434); RBC 3.02 M/mm3 (4.00-5.60); WHITE BLOOD COUNT 7.3 K/mm3 (4.0-10.0)
[2018-01-04] MEDS: VANCOMYCIN 1 GRAM (PRE-DOCKED) 1,000 MG/250 ML BAG IVPB SCH (16:45)
[2018-01-04] MEDS: MINERAL OIL/PETROLAT/WATER TOPICAL CREAM 454 GM JAR TP PRN (18:36)
[2018-01-04] MEDS: MELATONIN 5 MG TABLETS PO PRN (22:15)
[2018-01-04] MEDS: SENNOSIDES 8.6MG TABLET (FP) PO SCH (22:16)
[2018-01-04] MEDS: LATANOPROST 0.005% OPHTH SOLN 2.5ML BOTTLE OD SCH (22:18)
[2018-01-04] MEDS ORDERED: PT OWN MED DRAWER 7, Y5N ONE (22:18)
[2018-01-05] MEDS ORDERED: PIPERACILLIN/TAZOBACTAM 2.25 GM VIAL IVPB ONE ×3 (01:48→17:01)
[2018-01-05] MEDS ORDERED: DEXTROSE 5%-WATER - 50 ML IVPB ONE ×3 (01:48→17:01)
[2018-01-05] MEDS: PIPERACILLIN/TAZOB 2.25 GM 2.25 GM in DEXTROSE 5%-WATER - 50 ML IVPB SCH ×3 (02:09→17:05)
[2018-01-05] MEDS: sitaGLIPtin PHOSPHATE 25 MG TABLET (FP) PO SCH (06:19)
[2018-01-05] MEDS: LEVOTHYROXINE NA 75 MCG TABLET (FP) PO SCH (06:19)
[2018-01-05] MEDS: INSULIN SLIDING SCALE (NOVOLOG) 1 VIAL SQ SCH ×2 (06:20→12:48)
[2018-01-05] MEDS: HYDROmorphone HCl 2 MG/ML VIAL IVPB PRN ×3 (06:23→17:45)
--- NOTE | 2018-01-05 09:56 | PN ---
Progress Note, Physician History of Present Illness: stable s/p amputation some drainage noted patient comfortable - Current Medication List Current Medications: Active Medications Acetaminophen (Tylenol -) 325 mg PO Q8H PRN PRN Reason: PAIN SCALE 6-10 Fentanyl (Sublimaze Injection -) 25 mcg IVPUSH [id number] PRN PRN Reason: PAIN-PACU ORDER X 4 DOSES ONLY Last Admin: 01/03/18 15:55 Dose: 25 mcg Hydromorphone HCl (Dilaudid Vial -) 2 mg IVPB Q4H PRN PRN Reason: PAIN 1-5 Last Admin: 01/04/18 06:55 Dose: 2 mg Hydromorphone HCl (Dilaudid Vial -) 4 mg IVPB Q3H PRN PRN Reason: PAIN LEVEL 6-10 Last Admin: 01/05/18 06:23 Dose: 4 mg Piperacillin Sod/Tazobactam (Sod 2.25 gm/ Dextrose) 50 mls @ 100 mls/hr IVPB Q8H-IV [facility]; Protocol Last Admin: 01/05/18 02:09 Dose: 100 mls/hr Insulin Aspart (Novolog Vial Sliding Scale -) 1 vial SQ ACHS [facility]; Protocol Last Admin: 01/05/18 06:20 Dose: Not Given Latanoprost (Xalatan 0.005% Eye Drops -) 1 drop OD HS [facility] Last Admin: 01/04/18 22:18 Dose: 1 drop Levothyroxine Sodium (Synthroid -) 75 mcg PO 0700 [facility] Last Admin: 01/05/18 06:19 Dose: 75 mcg Melatonin (Melatonin) 10 mg PO HS PRN PRN Reason: INSOMNIA Last Admin: 01/04/18 22:15 Dose: 10 mg Metoprolol Succinate (Toprol Xl -) 12.5 mg PO DAILY [facility] Last Admin: 01/04/18 09:26 Dose: Not Given Multi-Ingredient Lotion (Eucerin (Large Jar) -) 1 applic TP BID PRN PRN Reason: DRY SKIN Last Admin: 01/04/18 18:36 Dose: 1 applic Multivit/Ca Carb/B Cmplx/FA/Prenat (Nephro-Fer -) 1 tablet PO DAILY [facility] Last Admin: 01/04/18 09:20 Dose: 1 tablet Polyethylene Glycol (Miralax (For Daily Use) -) 17 gm PO BID [facility] Last Admin: 01/04/18 22:17 Dose: Not Given Sacubitril/Valsartan (Entresto 24 Mg-26 Mg Tablet) 1 tab PO BID [facility] Last Admin: 01/04/18 22:18 Dose: 1 tab Senna (Senna -) 2 tab PO HS [facility] Last Admin: 01/04/18 22:16 Dose: 2 tab Sitagliptin Phosphate (Januvia -) 25 mg PO 0700 [facility] Last Admin: 01/05/18 06:19 Dose: 25 mg Thiamine HCl (Vitamin B1 -) 100 mg PO DAILY [facility] Last Admin: 01/04/18 09:20 Dose: 100 mg Vancomycin HCl (Vancomycin (Pre-Docked)) 1,000 mg IVPB TuThSa@1000 [facility] Last Admin: 01/04/18 16:45 Dose: 1,000 mg - Objective Vital Signs: Vital Signs Temperature 97.6 F 01/05/18 08:59 Pulse Rate 67 01/05/18 08:59 Respiratory Rate 18 01/05/18 08:59 Blood Pressure 92/47 L 01/05/18 08:59 O2 Sat by Pulse Oximetry (%) 96 01/04/18 21:00 Constitutional: Yes: No Distress, Calm Cardiovascular: Yes: Regular Rate and Rhythm Respiratory: Yes: Regular, CTA Bilaterally Gastrointestinal: Yes: Normal Bowel Sounds, Soft Musculoskeletal: Yes: WNL Extremities: Yes: WNL Neurological: Yes: Alert, Oriented Psychiatric: Yes: Alert, Oriented Labs: CBC, BMP 01/04/18 14:30 01/04/18 14:30 INR, PTT INR 1.39 (0.83-1.09) H 01/03/18 06:50 Assessment/Plan Impression 1. ESRD 2. hx pericardial effusion 3. hx pneumopericardium 4. hypothyroidism 5. a-fib 6. hypotension 7. hx of colon cancer 8. CHF 9. DM 10. hx of PE 11. CAD 12. right great toe gangrene patient with rt toe gangrene plan continue abx await for sensitivities wound care rest as per vascular
[2018-01-05] MEDS ORDERED: PT OWN MED DRAWER 7, Y5N ONE ×2 (10:13→20:48)
[2018-01-05] MEDS: POLYETHYLENE GLYCOL 3350 119 GM BTL PO SCH ×2 (10:17→21:01)
[2018-01-05] MEDS: metoPROLOL SUCCINATE 25 MG TAB.SR.24H (FP) PO SCH (10:17)
[2018-01-05] MEDS: SACUBITRIL/VALSARTAN 24 MG-26 MG TABLET PO SCH ×2 (10:17→21:01)
[2018-01-05] MEDS: THIAMINE HCL 100 MG TABLET (FP) PO SCH (10:18)
[2018-01-05] MEDS: VITAMIN B COMP W-C 1 EA TABLET PO SCH (10:18)
--- NOTE | 2018-01-05 13:16 | PN ---
Progress Note (short form) - Note Progress Note: POD 2 C/o pain Wound clean, small amount of bloody drainage No erythema. Packing changed. Strict non-weight bearing Add IV Tylenol for analgesia Problem List - Problems (1) Gangrene of toe of right foot Code(s): I96 - GANGRENE, NOT ELSEWHERE CLASSIFIED
--- NOTE | 2018-01-05 13:21 | PN ---
Progress Note (short form) - Note Progress Note: Chief Complaint: Events noted, notes reviewed, denies any chest pain or dyspnea , resting in bed, complaining of leg discomfort but improved History of Present Illness: Seen and examined. Events noted, notes reviewed, denies any chest pain or dyspnea, resting in bed, complaining of leg discomfort but improved Patient is post Chopart level amputation right foot Echocardiography dated 12/26/2017 revealed moderately dilated with severely decreased LV fxn, RV dilated with severely decreased RV fxn, mod LAE, mild MR, mod TR, mild AR, mod to large pericardial effusion with no evidence of cardiac tamponade Echocardiography dated 10/05/2017 revealed moderately dilated with severely decreased LV fxn, RV dilated with severely decreased RV fxn, mod LAE, mild MR, mod TR, mild AR, mod pericardial effusion similar to previous Echocardiography dated 09/12/2017 revealed moderate pericardial effusion, no tamponade, mildly dilated LV with severely decreased LV fxn, mild-mod dilated RV with severely decreased RV fxn, mod-severe MUKUL, mild MR, mild-mod TR, mild AR Echocardiography dated 08/11/2017 revealed mildly dilated LV with severely decreased LV function, mild-moderately dilated RV with moderately decreased RV function, moderate LAE, mild MR, TR, AR, moderate pericardial effusion with evidence of cardiac tamponade Lexiscan MPI study dated 11/11/[address] involving apex, inferior wall, infero-lateral small area mild royce-infarct ischemia mid anterior wall, dilated severely decreased LVEF 26, RV dilated - Current Medication List Current Medications Acetaminophen (Tylenol -) 325 mg PO Q8H PRN PRN Reason: PAIN SCALE 6-10 Acetaminophen (Ofirmev Injection -) 1,000 mg IVPB Q6H PRN PRN Reason: PAIN Fentanyl (Sublimaze Injection -) 25 mcg IVPUSH [id number] PRN PRN Reason: PAIN-PACU ORDER X 4 DOSES ONLY Last Admin: 01/03/18 15:55 Dose: 25 mcg Hydromorphone HCl (Dilaudid Vial -) 2 mg IVPB Q4H PRN PRN Reason: PAIN 1-5 Last Admin: 01/04/18 06:55 Dose: 2 mg Hydromorphone HCl (Dilaudid Vial -) 4 mg IVPB Q3H PRN PRN Reason: PAIN LEVEL 6-10 Last Admin: 01/05/18 10:19 Dose: 4 mg Piperacillin Sod/Tazobactam (Sod 2.25 gm/ Dextrose) 50 mls @ 100 mls/hr IVPB Q8H-IV [facility]; Protocol Last Admin: 01/05/18 10:18 Dose: 100 mls/hr Latanoprost (Xalatan 0.005% Eye Drops -) 1 drop OD HS [facility] Last Admin: 01/04/18 22:18 Dose: 1 drop Levothyroxine Sodium (Synthroid -) 75 mcg PO 0700 [facility] Last Admin: 01/05/18 06:19 Dose: 75 mcg Melatonin (Melatonin) 10 mg PO HS PRN PRN Reason: INSOMNIA Last Admin: 01/04/18 22:15 Dose: 10 mg Metoprolol Succinate (Toprol Xl -) 12.5 mg PO DAILY [facility] Last Admin: 01/05/18 10:17 Dose: Not Given Multi-Ingredient Lotion (Eucerin (Large Jar) -) 1 applic TP BID PRN PRN Reason: DRY SKIN Last Admin: 01/04/18 18:36 Dose: 1 applic Multivit/Ca Carb/B Cmplx/FA/Prenat (Nephro-Fer -) 1 tablet PO DAILY [facility] Last Admin: 01/05/18 10:18 Dose: 1 tablet Polyethylene Glycol (Miralax (For Daily Use) -) 17 gm PO BID [facility] Last Admin: 01/05/18 10:17 Dose: Not Given Sacubitril/Valsartan (Entresto 24 Mg-26 Mg Tablet) 1 tab PO BID [facility] Last Admin: 01/05/18 10:17 Dose: Not Given Senna (Senna -) 2 tab PO HS [facility] Last Admin: 01/04/18 22:16 Dose: 2 tab Sitagliptin Phosphate (Januvia -) 25 mg PO 0700 [facility] Last Admin: 01/05/18 06:19 Dose: 25 mg Thiamine HCl (Vitamin B1 -) 100 mg PO DAILY [facility] Last Admin: 01/05/18 10:18 Dose: 100 mg Vancomycin HCl (Vancomycin (Pre-Docked)) 1,000 mg IVPB TuThSa@1000 [facility] Last Admin: 01/04/18 16:45 Dose: 1,000 mg - Objective Vital Signs: Last Vital Signs Temp Pulse Resp BP Pulse Ox 97.6 F 67 18 92/47 L 96 01/05/18 08:59 01/05/18 08:59 01/05/18 08:59 01/05/18 08:59 01/04/18 21:00 Intake & Output 01/02/18 01/03/18 01/04/18 01/05/18 23:59 23:59 23:59 23:59 Intake Total 1762 2525 2650 100 Output Total 250 0 Balance 1762 2275 2650 100 Weight 196 lb 192 lb 2 oz 194 lb 1 oz HEENT: Atraumatic Neck: Supple Negative JVD Cardiovascular: S1 S2 Regular Rate and Rhythm Respiratory: CTA Bilaterally Gastrointestinal: Soft benign Normal Bowel Sounds Ext: Trace Edema Dressing in Situ Labs: CBC, BMP 01/04/18 14:30 01/04/18 14:30 ASSESSMENT and PLAN: ASSESSMENT: 1. Peripheral artery disease, gangrene right forefoot post right tibial revacularization and debridement of bone and soft tissue post Chopart level amputation right foot 2. Ischemic dilated cardiomyopathy with chronic class I-II NYHA classification LV failure, compensated/euvolemic, post prophylactic ICD implant 3. CAD post CT with evidence of history of ischemic injury angina pectoris, clinically stable 4. Persistent atrial fibrillation [id number] score of 3-4 on Coumadin 5. Pericardial effusion probably uremic pericarditis, moderate to large in severity/no tamponade 6. Diabetes mellitus 7. Hypothyroidism 8. History of PTE 9. ESRD 10. History of colon cancer PLAN: 1. Antibiotics as per the primary team 2. HD as per renal service 3. As outlined resume Plavix and Coumadin as per INR with close monitoring of CBC once cleared by vascular surgery 4. Continue Toprol XL and titrate as hemodynamics permit/tolerate 5. Continue Entresto and titrate as hemodynamics permit/tolerate Rafaela Aguilar MD
[2018-01-05] MEDS: ACETAMINOPHEN 1000 MG/100 ML VIAL (NON FORMULARY) IVPB PRN ×2 (14:39→20:59)
[2018-01-05] MEDS: MINERAL OIL/PETROLAT/WATER TOPICAL CREAM 454 GM JAR TP PRN (14:43)
--- NOTE | 2018-01-05 16:00 | PN ---
Progress Note, Physician History of Present Illness: Pt seen and examined at bedside. He is awake and alert. He denies shortness of breath. - Current Medication List Current Medications: Active Medications Acetaminophen (Tylenol -) 325 mg PO Q8H PRN PRN Reason: PAIN SCALE 6-10 Acetaminophen (Ofirmev Injection -) 1,000 mg IVPB Q6H PRN PRN Reason: PAIN Last Admin: 01/05/18 14:39 Dose: 1,000 mg Fentanyl (Sublimaze Injection -) 25 mcg IVPUSH [id number] PRN PRN Reason: PAIN-PACU ORDER X 4 DOSES ONLY Last Admin: 01/03/18 15:55 Dose: 25 mcg Hydromorphone HCl (Dilaudid Vial -) 2 mg IVPB Q4H PRN PRN Reason: PAIN 1-5 Last Admin: 01/04/18 06:55 Dose: 2 mg Hydromorphone HCl (Dilaudid Vial -) 4 mg IVPB Q3H PRN PRN Reason: PAIN LEVEL 6-10 Last Admin: 01/05/18 10:19 Dose: 4 mg Piperacillin Sod/Tazobactam (Sod 2.25 gm/ Dextrose) 50 mls @ 100 mls/hr IVPB Q8H-IV [facility]; Protocol Last Admin: 01/05/18 10:18 Dose: 100 mls/hr Latanoprost (Xalatan 0.005% Eye Drops -) 1 drop OD HS [facility] Last Admin: 01/04/18 22:18 Dose: 1 drop Levothyroxine Sodium (Synthroid -) 75 mcg PO 0700 [facility] Last Admin: 01/05/18 06:19 Dose: 75 mcg Melatonin (Melatonin) 10 mg PO HS PRN PRN Reason: INSOMNIA Last Admin: 01/04/18 22:15 Dose: 10 mg Metoprolol Succinate (Toprol Xl -) 12.5 mg PO DAILY [facility] Last Admin: 01/05/18 10:17 Dose: Not Given Multi-Ingredient Lotion (Eucerin (Large Jar) -) 1 applic TP BID PRN PRN Reason: DRY SKIN Last Admin: 01/05/18 14:43 Dose: 1 applic Multivit/Ca Carb/B Cmplx/FA/Prenat (Nephro-Fer -) 1 tablet PO DAILY [facility] Last Admin: 01/05/18 10:18 Dose: 1 tablet Polyethylene Glycol (Miralax (For Daily Use) -) 17 gm PO BID [facility] Last Admin: 01/05/18 10:17 Dose: Not Given Sacubitril/Valsartan (Entresto 24 Mg-26 Mg Tablet) 1 tab PO BID [facility] Last Admin: 01/05/18 10:17 Dose: Not Given Senna (Senna -) 2 tab PO HS [facility] Last Admin: 01/04/18 22:16 Dose: 2 tab Sitagliptin Phosphate (Januvia -) 25 mg PO 0700 [facility] Last Admin: 01/05/18 06:19 Dose: 25 mg Thiamine HCl (Vitamin B1 -) 100 mg PO DAILY [facility] Last Admin: 01/05/18 10:18 Dose: 100 mg Vancomycin HCl (Vancomycin (Pre-Docked)) 1,000 mg IVPB TuThSa@1000 [facility] Last Admin: 01/04/18 16:45 Dose: 1,000 mg - Objective Vital Signs: Vital Signs Temperature 97.6 F 01/05/18 08:59 Pulse Rate 67 01/05/18 08:59 Respiratory Rate 18 01/05/18 08:59 Blood Pressure 92/47 L 01/05/18 08:59 O2 Sat by Pulse Oximetry (%) 96 01/04/18 21:00 Constitutional: Yes: Calm Eyes: Yes: Conjunctiva Clear HENT: Yes: Atraumatic Cardiovascular: Yes: S1, S2 Respiratory: Yes: On Nasal O2 Gastrointestinal: Yes: Soft Genitourinary: Yes: WNL Edema: Yes Edema: LLE: 1+, RLE: 1+ Wound/Incision: Yes: Dressing Dry and Intact Neurological: Yes: Oriented Psychiatric: Yes: Oriented Labs: CBC, BMP 01/04/18 14:30 01/04/18 14:30 INR, PTT INR 1.39 (0.83-1.09) H 01/03/18 06:50 Problem List - Problems (1) Gangrene of toe of right foot Code(s): I96 - GANGRENE, NOT ELSEWHERE CLASSIFIED (2) ESRD (end stage renal disease) Code(s): N18.6 - END STAGE RENAL DISEASE Assessment/Plan Current Medications Generic Name Dose Route Start Last Admin Trade Name Freq PRN Reason Stop Dose Admin Acetaminophen 325 mg 01/03/18 15:40 Tylenol - PO Q8H PRN PAIN SCALE 6-10 Acetaminophen 1,000 mg 01/05/18 13:13 01/05/18 14:39 Ofirmev Injection - IVPB 1,000 mg Q6H PRN Administration PAIN Fentanyl 25 mcg 01/03/18 15:38 01/03/18 15:55 Sublimaze Injection - IVPUSH 25 mcg [id number] PRN Administration PAIN-PACU ORDER X 4 DOSES ONLY Hydromorphone HCl 2 mg 01/03/18 15:40 01/04/18 06:55 Dilaudid Vial - IVPB 2 mg Q4H PRN Administration PAIN 1-5 Hydromorphone HCl 4 mg 01/04/18 10:27 01/05/18 10:19 Dilaudid Vial - IVPB 4 mg Q3H PRN Administration PAIN LEVEL 6-10 Piperacillin Sod/Tazobactam 50 mls @ 100 mls/hr 01/03/18 18:00 01/05/18 10:18 Sod 2.25 gm/ Dextrose IVPB 100 mls/hr Q8H-IV [facility] Administration Protocol Latanoprost 1 drop 01/03/18 22:00 01/04/18 22:18 Xalatan 0.005% Eye Drops - OD 1 drop HS [facility] Administration Levothyroxine Sodium 75 mcg 01/04/18 07:00 01/05/18 06:19 Synthroid - PO 75 mcg 0700 [facility] Administration Melatonin 10 mg 01/03/18 22:00 01/04/18 22:15 Melatonin PO 10 mg HS PRN Administration INSOMNIA Metoprolol Succinate 12.5 mg 01/04/18 10:00 01/05/18 10:17 Toprol Xl - PO Not Given DAILY [facility] Multi-Ingredient Lotion 1 applic 01/04/18 12:50 01/05/18 14:43 Eucerin (Large Jar) - TP 1 applic BID PRN Administration DRY SKIN Multivit/Ca Carb/B Cmplx/FA/Prenat 1 tablet 01/04/18 10:00 01/05/18 10:18 Nephro-Fer - PO 1 tablet DAILY [facility] Administration Polyethylene Glycol 17 gm 01/03/18 22:00 01/05/18 10:17 Miralax (For Daily Use) - PO Not Given BID [facility] Sacubitril/Valsartan 1 tab 01/03/18 22:00 01/05/18 10:17 Entresto 24 Mg-26 Mg Tablet PO Not Given BID [facility] Senna 2 tab 01/03/18 22:00 01/04/18 22:16 Senna - PO 2 tab HS [facility] Administration Sitagliptin Phosphate 25 mg 01/04/18 07:00 01/05/18 06:19 Januvia - PO 25 mg 0700 [facility] Administration Thiamine HCl 100 mg 01/04/18 10:00 01/05/18 10:18 Vitamin B1 - PO 100 mg DAILY [facility] Administration Vancomycin HCl 1,000 mg 01/04/18 10:00 01/04/18 16:45 Vancomycin (Pre-Docked) IVPB 1,000 mg TuThSa@1000 [facility] Administration Impression 1. ESRD 2. hx pericardial effusion 3. hx pneumopericardium 4. hypothyroidism 5. a-fib 6. hypotension 7. hx of colon cancer 8. CHF 9. DM 10. hx of PE 11. CAD 12. right great toe gangrene Plan - will arrange for HD tomorro - pt has gotten 4 treatments this week - cont wound care - pain control - fluid restrict pt, compliance has been a problem - abx per ID - will follow
[2018-01-05] MEDS: LATANOPROST 0.005% OPHTH SOLN 2.5ML BOTTLE OD SCH (21:00)
[2018-01-05] MEDS: SENNOSIDES 8.6MG TABLET (FP) PO SCH (21:00)
--- NOTE | 2018-01-05 21:30 | PN ---
Progress Note (short form) - Note Progress Note: s/p TMA poor pain control per patient Pain meds increased to 4 mg q 3 PRN Vital Signs Period Temp Pulse Resp BP Sys/Yoon Pulse Ox Last 24 Hr 97.6 F-98.2 F 64-67 18-20 81-97/47-55 97 neck supple heart irreg S1/S2 +M2/6 lungs clear bilat abd - soft inc hernia midline Ext - right A-V fistula Forearm - HD access + bruit left leg elevated / surgical dressing in place / dry CBC, BMP 01/04/18 14:30 01/04/18 14:30 01/03/18 06:50 01/03/18 06:50 CBC, BMP 01/02/18 08:50 01/02/18 08:50 CBC, BMP 01/01/18 06:30 01/01/18 15:20 Microbiology 12/29/17 14:00 Blood - Post-Dialysis Blood Culture - Final NO GROWTH AFTER 5 DAYS INCUBATION 12/29/17 14:00 Blood - Post-Dialysis Blood Culture - Final NO GROWTH AFTER 5 DAYS INCUBATION 12/27/17 12:30 Foot - Right Gram Stain - Final 12/27/17 12:30 Foot - Right Wound Culture - Final Mr S Aureus Stenotrophomon.(X.)Maltophilia 12/26/17 12:46 Blood - Peripheral Venous Blood Culture - Final NO GROWTH AFTER 5 DAYS INCUBATION 12/26/17 12:46 Blood - Peripheral Venous Blood Culture - Final NO GROWTH AFTER 5 DAYS INCUBATION Active Medications Acetaminophen (Tylenol -) 325 mg PO Q8H PRN PRN Reason: PAIN SCALE 6-10 Acetaminophen (Ofirmev Injection -) 1,000 mg IVPB Q6H PRN PRN Reason: PAIN Last Admin: 01/05/18 20:59 Dose: 1,000 mg Albumin Human (Albumin Human 25%) 12.5 gm IVPB Q30M [facility] Epoetin Hector (Epogen -) 9,000 unit IVPUSH ONCE ONE Stop: 01/06/18 16:01 Fentanyl (Sublimaze Injection -) 25 mcg IVPUSH [id number] PRN PRN Reason: PAIN-PACU ORDER X 4 DOSES ONLY Last Admin: 01/03/18 15:55 Dose: 25 mcg Hydromorphone HCl (Dilaudid Vial -) 2 mg IVPB Q4H PRN PRN Reason: PAIN 1-5 Last Admin: 01/04/18 06:55 Dose: 2 mg Hydromorphone HCl (Dilaudid Vial -) 4 mg IVPB Q3H PRN PRN Reason: PAIN LEVEL 6-10 Last Admin: 01/05/18 17:45 Dose: 4 mg Piperacillin Sod/Tazobactam (Sod 2.25 gm/ Dextrose) 50 mls @ 100 mls/hr IVPB Q8H-IV [facility]; Protocol Last Admin: 01/05/18 17:05 Dose: 100 mls/hr Sodium Chloride (Normal Saline -) 250 mls @ 3,000 mls/hr IV PRN PRN PRN Reason: Hypotension during Dialysis Stop: 01/06/18 16:00 Latanoprost (Xalatan 0.005% Eye Drops -) 1 drop OD HS [facility] Last Admin: 01/05/18 21:00 Dose: 1 drop Levothyroxine Sodium (Synthroid -) 75 mcg PO 0700 [facility] Last Admin: 01/05/18 06:19 Dose: 75 mcg Melatonin (Melatonin) 10 mg PO HS PRN PRN Reason: INSOMNIA Last Admin: 01/04/18 22:15 Dose: 10 mg Metoprolol Succinate (Toprol Xl -) 12.5 mg PO DAILY [facility] Last Admin: 01/05/18 10:17 Dose: Not Given Multi-Ingredient Lotion (Eucerin (Large Jar) -) 1 applic TP BID PRN PRN Reason: DRY SKIN Last Admin: 01/05/18 14:43 Dose: 1 applic Multivit/Ca Carb/B Cmplx/FA/Prenat (Nephro-Fer -) 1 tablet PO DAILY [facility] Last Admin: 01/05/18 10:18 Dose: 1 tablet Polyethylene Glycol (Miralax (For Daily Use) -) 17 gm PO BID [facility] Last Admin: 01/05/18 21:01 Dose: Not Given Sacubitril/Valsartan (Entresto 24 Mg-26 Mg Tablet) 1 tab PO BID [facility] Last Admin: 01/05/18 21:01 Dose: 1 tab Senna (Senna -) 2 tab PO HS [facility] Last Admin: 01/05/18 21:00 Dose: 2 tab Sitagliptin Phosphate (Januvia -) 25 mg PO 0700 [facility] Last Admin: 01/05/18 06:19 Dose: 25 mg Thiamine HCl (Vitamin B1 -) 100 mg PO DAILY [facility] Last Admin: 01/05/18 10:18 Dose: 100 mg Vancomycin HCl (Vancomycin (Pre-Docked)) 1,000 mg IVPB TuThSa@1000 [facility] Last Admin: 01/04/18 16:45 Dose: 1,000 mg Assessment/Plan Assmt # right great toe gangrene - POD 2 -TMA Abx per ID pain management # PVD s/p angioplasty bilat LE right LE done 1 yr ago # CKD5 on chronic HD TTS --HD per renal # DM on insulin / sliding scale # a fib -- rate control a/c #CAD # Cardiomyopathy s/p ICD non ischemic s/p Cath # hypothyroid TSH # HFrEF Hx of EF 15 -20% # anemia of chronic disease # hx of pericardial effusion - chronic ? echo - moderate effision Cardio [place] - Dr Plasencia # hx of colon ca s/p resection # hx of PE - on a/c # hx of pneumopericardium Problem List - Problems (1) Gangrene of toe of right foot Code(s): I96 - GANGRENE, NOT ELSEWHERE CLASSIFIED (2) Diabetic foot ulcer Code(s): E11.621 - TYPE 2 DIABETES MELLITUS WITH FOOT ULCER; L97.509 - NON- PRESSURE CHRONIC ULCER OTH PRT UNSP FOOT W UNSP SEVERITY (3) Amputated toe of right foot Code(s): Z89.421 - ACQUIRED ABSENCE OF OTHER RIGHT TOE(S) (4) Atrial fibrillation Code(s): I48.91 - UNSPECIFIED ATRIAL FIBRILLATION Qualifiers: Atrial fibrillation type: permanent Qualified Code(s): I48.2 - Chronic atrial fibrillation (5) Cardiomyopathy Code(s): I42.9 - CARDIOMYOPATHY, UNSPECIFIED Qualifiers: Cardiomyopathy type: unspecified Qualified Code(s): I42.9 - Cardiomyopathy , unspecified (6) Chronic kidney disease (CKD), stage V Code(s): N18.5 - CHRONIC KIDNEY DISEASE, STAGE 5 (7) Chronic anticoagulation Code(s): Z79.01 - [employer]SE[employer]OVERER (CURRENT) USE OF 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 (8) Diabetes mellitus Code(s): E11.9 - TYPE 2 DIABETES MELLITUS WITHOUT COMPLICATIONS Qualifiers: Diabetes mellitus type: type 2 Diabetes mellitus intermodal dispatcher insulin use: with fdc use Diabetes mellitus complication detail: with peripheral angiopathy with gangrene (9) ESRD (end stage renal disease) Code(s): N18.6 - END STAGE RENAL DISEASE (10) Chronic kidney disease on chronic dialysis Code(s): N18.6 - END STAGE RENAL DISEASE; Z99.2 - DEPENDENCE ON RENAL DIALYSIS (11) HTN (hypertension) Code(s): I10 - ESSENTIAL (PRIMARY) HYPERTENSION Qualifiers: Hypertension type: essential hypertension Qualified Code(s): I10 - Essential (primary) hypertension (12) ICD (implantable cardioverter-defibrillator) in place Code(s): Z95.810 - PRESENCE OF AUTOMATIC (IMPLANTABLE) CARDIAC DEFIBRILLATOR (13) Osteomyelitis Code(s): M86.9 - OSTEOMYELITIS, UNSPECIFIED Qualifiers: Osteomyelitis type: other Osteomyelitis location: foot Laterality: right Qualified Code(s): M86.8X7 - Other osteomyelitis, ankle and foot (14) Status post peripheral artery angioplasty Code(s): Z98.62 - PERIPHERAL VASCULAR ANGIOPLASTY STATUS
[2018-01-06] MEDS: MELATONIN 5 MG TABLETS PO PRN (00:13)
[2018-01-06] MEDS: HYDROmorphone HCl 2 MG/ML VIAL IVPB PRN ×5 (00:17→22:28)
[2018-01-06] MEDS ORDERED: PIPERACILLIN/TAZOBACTAM 2.25 GM VIAL IVPB ONE ×2 (00:50→09:39)
[2018-01-06] MEDS ORDERED: DEXTROSE 5%-WATER - 50 ML IVPB ONE ×2 (00:50→09:39)
[2018-01-06] MEDS: PIPERACILLIN/TAZOB 2.25 GM 2.25 GM in DEXTROSE 5%-WATER - 50 ML IVPB SCH ×2 (01:08→10:36)
[2018-01-06] MEDS: sitaGLIPtin PHOSPHATE 25 MG TABLET (FP) PO SCH (06:20)
[2018-01-06] MEDS: LEVOTHYROXINE NA 75 MCG TABLET (FP) PO SCH (06:20)
[2018-01-06] MEDS: VANCOMYCIN 1 GRAM (PRE-DOCKED) 1,000 MG/250 ML BAG IVPB SCH (10:37)
[2018-01-06] MEDS: VITAMIN B COMP W-C 1 EA TABLET PO SCH (10:39)
[2018-01-06] MEDS: THIAMINE HCL 100 MG TABLET (FP) PO SCH (10:39)
[2018-01-06] MEDS: metoPROLOL SUCCINATE 25 MG TAB.SR.24H (FP) PO SCH (10:55)
[2018-01-06] MEDS: SACUBITRIL/VALSARTAN 24 MG-26 MG TABLET PO SCH ×2 (10:55→22:27)
[2018-01-06] MEDS: POLYETHYLENE GLYCOL 3350 119 GM BTL PO SCH ×2 (11:21→22:27)
[2018-01-06] MEDS ORDERED: EPOETIN ALFA 10,000 UNIT/1 ML VIAL IVPUSH ONE (12:30)
--- NOTE | 2018-01-06 13:42 | PN ---
Progress Note, Physician History of Present Illness: Pt is s/p Rt TMA POD#3 - Current Medication List Current Medications: Active Medications Acetaminophen (Tylenol -) 325 mg PO Q8H PRN PRN Reason: PAIN SCALE 6-10 Acetaminophen (Ofirmev Injection -) 1,000 mg IVPB Q6H PRN PRN Reason: PAIN Last Admin: 01/05/18 20:59 Dose: 1,000 mg Albumin Human (Albumin Human 25%) 12.5 gm IVPB Q30M [facility]IRAJ Epoetin Hector (Epogen -) 9,000 unit IVPUSH ONCE ONE Stop: 01/06/18 16:01 Fentanyl (Sublimaze Injection -) 25 mcg IVPUSH [id number] PRN PRN Reason: PAIN-PACU ORDER X 4 DOSES ONLY Last Admin: 01/03/18 15:55 Dose: 25 mcg Hydromorphone HCl (Dilaudid Vial -) 2 mg IVPB Q4H PRN PRN Reason: PAIN 1-5 Last Admin: 01/04/18 06:55 Dose: 2 mg Hydromorphone HCl (Dilaudid Vial -) 4 mg IVPB Q3H PRN PRN Reason: PAIN LEVEL 6-10 Last Admin: 01/06/18 10:46 Dose: 4 mg Piperacillin Sod/Tazobactam (Sod 2.25 gm/ Dextrose) 50 mls @ 100 mls/hr IVPB Q8H-IV [facility]IRAJ; Protocol Last Admin: 01/06/18 10:36 Dose: 100 mls/hr Sodium Chloride (Normal Saline -) 250 mls @ 3,000 mls/hr IV PRN PRN PRN Reason: Hypotension during Dialysis Stop: 01/06/18 16:00 Latanoprost (Xalatan 0.005% Eye Drops -) 1 drop OD HS [facility]IRAJ Last Admin: 01/05/18 21:00 Dose: 1 drop Levothyroxine Sodium (Synthroid -) 75 mcg PO 0700 [facility] Last Admin: 01/06/18 06:20 Dose: 75 mcg Melatonin (Melatonin) 10 mg PO HS PRN PRN Reason: INSOMNIA Last Admin: 01/06/18 00:13 Dose: 10 mg Metoprolol Succinate (Toprol Xl -) 12.5 mg PO DAILY [facility] Last Admin: 01/06/18 10:55 Dose: Not Given Multi-Ingredient Lotion (Eucerin (Large Jar) -) 1 applic TP BID PRN PRN Reason: DRY SKIN Last Admin: 01/05/18 14:43 Dose: 1 applic Multivit/Ca Carb/B Cmplx/FA/Prenat (Nephro-Fer -) 1 tablet PO DAILY [facility] Last Admin: 01/06/18 10:39 Dose: 1 tablet Polyethylene Glycol (Miralax (For Daily Use) -) 17 gm PO BID [facility] Last Admin: 01/06/18 11:21 Dose: 17 gm Sacubitril/Valsartan (Entresto 24 Mg-26 Mg Tablet) 1 tab PO BID [facility] Last Admin: 01/06/18 10:55 Dose: Not Given Senna (Senna -) 2 tab PO HS [facility] Last Admin: 01/05/18 21:00 Dose: 2 tab Sitagliptin Phosphate (Januvia -) 25 mg PO 0700 [facility] Last Admin: 01/06/18 06:20 Dose: 25 mg Thiamine HCl (Vitamin B1 -) 100 mg PO DAILY [facility] Last Admin: 01/06/18 10:39 Dose: 100 mg Vancomycin HCl (Vancomycin (Pre-Docked)) 1,000 mg IVPB TuThSa@1000 [facility] Last Admin: 01/06/18 10:37 Dose: 1,000 mg - Objective Vital Signs: Vital Signs Temperature 97.6 F 01/06/18 05:38 Pulse Rate 66 01/06/18 05:38 Respiratory Rate 18 01/06/18 05:38 Blood Pressure 95/55 L 01/06/18 05:38 O2 Sat by Pulse Oximetry (%) 98 01/05/18 21:00 Wound/Incision: Yes: Dressing Dry and Intact Labs: INR, PTT INR 1.39 (0.83-1.09) H 01/03/18 06:50 Microbiology 12/29/17 14:00 Blood - Post-Dialysis Blood Culture - Final NO GROWTH AFTER 5 DAYS INCUBATION 12/29/17 14:00 Blood - Post-Dialysis Blood Culture - Final NO GROWTH AFTER 5 DAYS INCUBATION 12/27/17 12:30 Foot - Right Gram Stain - Final 12/27/17 12:30 Foot - Right Wound Culture - Final Mr S Aureus Stenotrophomon.(X.)Maltophilia 12/26/17 12:46 Blood - Peripheral Venous Blood Culture - Final NO GROWTH AFTER 5 DAYS INCUBATION 12/26/17 12:46 Blood - Peripheral Venous Blood Culture - Final NO GROWTH AFTER 5 DAYS INCUBATION Problem List - Problems (1) Diabetic foot ulcer Code(s): E11.621 - TYPE 2 DIABETES MELLITUS WITH FOOT ULCER; L97.509 - NON- PRESSURE CHRONIC ULCER OTH PRT UNSP FOOT W UNSP SEVERITY (2) Gangrene of toe of right foot Code(s): I96 - GANGRENE, NOT ELSEWHERE CLASSIFIED (3) Amputated toe of right foot Code(s): Z89.421 - ACQUIRED ABSENCE OF OTHER RIGHT TOE(S) (4) Atrial fibrillation Code(s): I48.91 - UNSPECIFIED ATRIAL FIBRILLATION Qualifiers: Atrial fibrillation type: permanent Qualified Code(s): I48.2 - Chronic atrial fibrillation (5) Diabetes mellitus Code(s): E11.9 - TYPE 2 DIABETES MELLITUS WITHOUT COMPLICATIONS Qualifiers: Diabetes mellitus type: type 2 Diabetes mellitus watermelon inspector insulin use: with watermelon inspector use Diabetes mellitus complication detail: with peripheral angiopathy with gangrene (6) ESRD (end stage renal disease) Code(s): N18.6 - END STAGE RENAL DISEASE (7) Osteomyelitis Code(s): M86.9 - OSTEOMYELITIS, UNSPECIFIED Qualifiers: Osteomyelitis type: other Osteomyelitis location: foot Laterality: right Qualified Code(s): M86.8X7 - Other osteomyelitis, ankle and foot (8) Status post peripheral artery angioplasty Code(s): Z98.62 - PERIPHERAL VASCULAR ANGIOPLASTY STATUS Assessment/Plan Rt toe Gangrene s/p TMA POD#3 DM Peripheral neuropathy ESRD on HD Colon CA s/p resection Atrial Fibrillation COPD -- wound culture results noted -- continue Vancomycin - check trough prior to HD (goal 15-20) -- d/c Zosyn, switch to Levaquin 500 mg po Q2days and flagyl 500 mg po TID -- continue wound care/Podiatry followup -- tight glycemic control
[2018-01-06 13:57] LABS: ANION GAP 10 MMOL/L (8-16); BLOOD UREA NITROGEN 16 mg/dL (7-18); CALCIUM 8.4 mg/dL (8.5-10.1); CHLORIDE 92 mmol/L (98-107); CO2 27 mmol/L (21-32); CREATININE 4.4 mg/dL (0.55-1.3); GLUCOSE,RANDOM 112 mg/dL (74-106); POTASSIUM 3.9 mmol/L (3.5-5.1); SODIUM 129 mmol/L (136-145)
[2018-01-06 13:58] LABS: HEMATOCRIT 25.6 % (35.4-49); HEMOGLOBIN 8.3 GM/dL (11.7-16.9); MCH 29.3 pg (25.7-33.7); MCHC 32.6 g/dl (32.0-35.9); MEAN PLT VOLUME 9.5 fl (7.5-11.1); PLATELET COUNT 224 K/MM3 (134-434); RBC 2.84 M/mm3 (4.00-5.60); WHITE BLOOD COUNT 6.7 K/mm3 (4.0-10.0)
[2018-01-06] MEDS: ALBUMIN HUMAN 25% 12.5 GM/50 ML VIAL IVPB SCH ×4 (14:18→15:09)
--- NOTE | 2018-01-06 14:18 | PN ---
Progress Note (short form) - Note Progress Note: s/p TMA poor pain control per patient Pain meds increased to 4 mg q 3 PRN now will adjust 6mg q 3hr patient on HD tight leg elevated -- warm to touch Vital Signs Period Temp Pulse Resp BP Sys/Yoon Pulse Ox Last 24 Hr 97.6 F-97.8 F 66-66 18-20 92-95/48-55 98 at HD neck supple heart irreg S1/S2 +M2/6 lungs clear bilat Ext - right A-V fistula Forearm - HD access + bruit left leg elevated /dressing to right foot clean and dry CBC, BMP 01/06/18 12:30 01/06/18 12:30 CBC, BMP 01/04/18 14:30 01/04/18 14:30 01/03/18 06:50 01/03/18 06:50 Microbiology 12/29/17 14:00 Blood - Post-Dialysis Blood Culture - Final NO GROWTH AFTER 5 DAYS INCUBATION 12/29/17 14:00 Blood - Post-Dialysis Blood Culture - Final NO GROWTH AFTER 5 DAYS INCUBATION 12/27/17 12:30 Foot - Right Gram Stain - Final 12/27/17 12:30 Foot - Right Wound Culture - Final Mr S Aureus Stenotrophomon.(X.)Maltophilia 12/26/17 12:46 Blood - Peripheral Venous Blood Culture - Final NO GROWTH AFTER 5 DAYS INCUBATION 12/26/17 12:46 Blood - Peripheral Venous Blood Culture - Final NO GROWTH AFTER 5 DAYS INCUBATION Active Medications Acetaminophen (Tylenol -) 325 mg PO Q8H PRN PRN Reason: PAIN SCALE 6-10 Acetaminophen (Ofirmev Injection -) 1,000 mg IVPB Q6H PRN PRN Reason: PAIN Last Admin: 01/05/18 20:59 Dose: 1,000 mg Fentanyl (Sublimaze Injection -) 25 mcg IVPUSH [id number] PRN PRN Reason: PAIN-PACU ORDER X 4 DOSES ONLY Last Admin: 01/03/18 15:55 Dose: 25 mcg Hydromorphone HCl (Dilaudid Vial -) 2 mg IVPB Q4H PRN PRN Reason: PAIN 1-5 Last Admin: 01/04/18 06:55 Dose: 2 mg Hydromorphone HCl (Dilaudid Vial -) 4 mg IVPB Q3H PRN PRN Reason: PAIN LEVEL 6-10 Last Admin: 01/06/18 10:46 Dose: 4 mg Sodium Chloride (Normal Saline -) 250 mls @ 3,000 mls/hr IV PRN PRN PRN Reason: Hypotension during Dialysis Stop: 01/06/18 15:01 Latanoprost (Xalatan 0.005% Eye Drops -) 1 drop OD HS [facility] Last Admin: 01/05/18 21:00 Dose: 1 drop Levofloxacin (Levaquin -) 500 mg PO Q2D@0600 [facility] Levothyroxine Sodium (Synthroid -) 75 mcg PO 0700 [facility] Last Admin: 01/06/18 06:20 Dose: 75 mcg Melatonin (Melatonin) 10 mg PO HS PRN PRN Reason: INSOMNIA Last Admin: 01/06/18 00:13 Dose: 10 mg Metoprolol Succinate (Toprol Xl -) 12.5 mg PO DAILY [facility] Last Admin: 01/06/18 10:55 Dose: Not Given Metronidazole (Flagyl -) 500 mg PO TID [facility] Multi-Ingredient Lotion (Eucerin (Large Jar) -) 1 applic TP BID PRN PRN Reason: DRY SKIN Last Admin: 01/05/18 14:43 Dose: 1 applic Multivit/Ca Carb/B Cmplx/FA/Prenat (Nephro-Fer -) 1 tablet PO DAILY [facility] Last Admin: 01/06/18 10:39 Dose: 1 tablet Polyethylene Glycol (Miralax (For Daily Use) -) 17 gm PO BID [facility] Last Admin: 01/06/18 11:21 Dose: 17 gm Sacubitril/Valsartan (Entresto 24 Mg-26 Mg Tablet) 1 tab PO BID [facility] Last Admin: 01/06/18 10:55 Dose: Not Given Senna (Senna -) 2 tab PO HS [facility] Last Admin: 01/05/18 21:00 Dose: 2 tab Sitagliptin Phosphate (Januvia -) 25 mg PO 0700 [facility] Last Admin: 01/06/18 06:20 Dose: 25 mg Thiamine HCl (Vitamin B1 -) 100 mg PO DAILY [facility] Last Admin: 01/06/18 10:39 Dose: 100 mg Vancomycin HCl (Vancomycin (Pre-Docked)) 1,000 mg IVPB TuThSa@1000 [facility] Last Admin: 01/06/18 10:37 Dose: 1,000 mg Assessment/Plan Assmt # right great toe gangrene - POD 3 - Right TMA Abx per ID pain management poor - will adjust hx of drug abuse therefore pain control has been problematic # PVD s/p angioplasty bilat LE right LE done 1 yr ago # CKD5 on chronic HD TTS --HD per renal # DM on insulin / sliding scale # a fib -- rate control a/c #CAD # Cardiomyopathy s/p ICD non ischemic s/p Cath # hypothyroid TSH # HFrEF Hx of EF 15 -20% # anemia of chronic disease # hx of pericardial effusion - chronic ? echo - moderate effision Cardio [place] - Dr Plasencia # hx of colon ca s/p resection # hx of PE - on a/c # hx of pneumopericardium Problem List - Problems (1) Gangrene of toe of right foot Code(s): I96 - GANGRENE, NOT ELSEWHERE CLASSIFIED (2) Diabetic foot ulcer Code(s): E11.621 - TYPE 2 DIABETES MELLITUS WITH FOOT ULCER; L97.509 - NON- PRESSURE CHRONIC ULCER OTH PRT UNSP FOOT W UNSP SEVERITY (3) Amputated toe of right foot Code(s): Z89.421 - ACQUIRED ABSENCE OF OTHER RIGHT TOE(S) (4) Atrial fibrillation Code(s): I48.91 - UNSPECIFIED ATRIAL FIBRILLATION Qualifiers: Atrial fibrillation type: permanent Qualified Code(s): I48.2 - Chronic atrial fibrillation (5) Cardiomyopathy Code(s): I42.9 - CARDIOMYOPATHY, UNSPECIFIED Qualifiers: Cardiomyopathy type: unspecified Qualified Code(s): I42.9 - Cardiomyopathy , unspecified (6) Chronic kidney disease (CKD), stage V Code(s): N18.5 - CHRONIC KIDNEY DISEASE, STAGE 5 (7) Chronic anticoagulation Code(s): Z79.01 - 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 (CURRENT) USE OF 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 (8) Diabetes mellitus Code(s): E11.9 - TYPE 2 DIABETES MELLITUS WITHOUT COMPLICATIONS Qualifiers: Diabetes mellitus type: type 2 Diabetes mellitus alf insulin use: with alf use Diabetes mellitus complication detail: with peripheral angiopathy with gangrene (9) ESRD (end stage renal disease) Code(s): N18.6 - END STAGE RENAL DISEASE (10) Chronic kidney disease on chronic dialysis Code(s): N18.6 - END STAGE RENAL DISEASE; Z99.2 - DEPENDENCE ON RENAL DIALYSIS (11) HTN (hypertension) Code(s): I10 - ESSENTIAL (PRIMARY) HYPERTENSION Qualifiers: Hypertension type: essential hypertension Qualified Code(s): I10 - Essential (primary) hypertension (12) ICD (implantable cardioverter-defibrillator) in place Code(s): Z95.810 - PRESENCE OF AUTOMATIC (IMPLANTABLE) CARDIAC DEFIBRILLATOR (13) Osteomyelitis Code(s): M86.9 - OSTEOMYELITIS, UNSPECIFIED Qualifiers: Osteomyelitis type: other Osteomyelitis location: foot Laterality: right Qualified Code(s): M86.8X7 - Other osteomyelitis, ankle and foot (14) Status post peripheral artery angioplasty Code(s): Z98.62 - PERIPHERAL VASCULAR ANGIOPLASTY STATUS
[2018-01-06] MEDS ORDERED: SODIUM CHLORIDE 250 ML IV PRN (15:00)
--- NOTE | 2018-01-06 15:31 | PN ---
Progress Note (short form) - Note Progress Note: RENAL Pt is awake currently on hd had a TMA Last Vital Signs Temp Pulse Resp BP Pulse Ox 98.2 F 60 18 100/60 98 01/06/18 12:25 01/06/18 15:00 01/06/18 15:00 01/06/18 15:00 01/05/18 21:00 lungs clear cvs s1s2 rr abd soft ext +edema neuro a+ox3 CBC, BMP 01/06/18 12:30 01/06/18 12:30 Current Medications Generic Name Dose Route Start Last Admin Trade Name Freq PRN Reason Stop Dose Admin Acetaminophen 325 mg 01/03/18 15:40 Tylenol - PO Q8H PRN PAIN SCALE 6-10 Acetaminophen 1,000 mg 01/05/18 13:13 01/05/18 20:59 Ofirmev Injection - IVPB 1,000 mg Q6H PRN Administration PAIN Fentanyl 25 mcg 01/03/18 15:38 01/03/18 15:55 Sublimaze Injection - IVPUSH 25 mcg [id number] PRN Administration PAIN-PACU ORDER X 4 DOSES ONLY Hydromorphone HCl 2 mg 01/03/18 15:40 01/04/18 06:55 Dilaudid Vial - IVPB 2 mg Q4H PRN Administration PAIN 1-5 Hydromorphone HCl 6 mg 01/06/18 14:18 Dilaudid Vial - IVPB Q3H PRN PAIN LEVEL 6-10 Latanoprost 1 drop 01/03/18 22:00 01/05/18 21:00 Xalatan 0.005% Eye Drops - OD 1 drop HS VIRAJ Administration Levofloxacin 500 mg 01/06/18 13:45 Levaquin - PO Q2D@0600 [facility] Levothyroxine Sodium 75 mcg 01/04/18 07:00 01/06/18 06:20 Synthroid - PO 75 mcg 0700 VIRAJ Administration Melatonin 10 mg 01/03/18 22:00 01/06/18 00:13 Melatonin PO 10 mg HS PRN Administration INSOMNIA Metoprolol Succinate 12.5 mg 01/04/18 10:00 01/06/18 10:55 Toprol Xl - PO Not Given DAILY VIRAJ Metronidazole 500 mg 01/06/18 14:00 Flagyl - PO TID VIRAJ Multi-Ingredient Lotion 1 applic 01/04/18 12:50 01/05/18 14:43 Eucerin (Large Jar) - TP 1 applic BID PRN Administration DRY SKIN Multivit/Ca Carb/B Cmplx/FA/Prenat 1 tablet 01/04/18 10:00 01/06/18 10:39 Nephro-Fer - PO 1 tablet DAILY [facility]IRAJ Administration Polyethylene Glycol 17 gm 01/03/18 22:00 01/06/18 11:21 Miralax (For Daily Use) - PO 17 gm BID VIRAJ Administration Sacubitril/Valsartan 1 tab 01/03/18 22:00 01/06/18 10:55 Entresto 24 Mg-26 Mg Tablet PO Not Given BID VIRAJ Senna 2 tab 01/03/18 22:00 01/05/18 21:00 Senna - PO 2 tab HS VIRAJ Administration Sitagliptin Phosphate 25 mg 01/04/18 07:00 01/06/18 06:20 Januvia - PO 25 mg 0700 VIRAJ Administration Thiamine HCl 100 mg 01/04/18 10:00 01/06/18 10:39 Vitamin B1 - PO 100 mg DAILY [facility] Administration Vancomycin HCl 1,000 mg 01/04/18 10:00 01/06/18 10:37 Vancomycin (Pre-Docked) IVPB 1,000 mg TuThSa@1000 VIRAJ Administration IMPRESSION esrd infected/gangrenous foot s/p tma LV dysfunction afib hypothyroidism PLAN continue antibiotics monitor glucose closely continue HD will need placement for rehab [facility]
[2018-01-06] MEDS: metroNIDAZOLE 250 MG TABLET PO SCH ×2 (17:29→22:26)
[2018-01-06] MEDS: SENNOSIDES 8.6MG TABLET (FP) PO SCH (22:26)
[2018-01-06] MEDS: LATANOPROST 0.005% OPHTH SOLN 2.5ML BOTTLE OD SCH (22:27)
[2018-01-07] MEDS: HYDROmorphone HCl 2 MG/ML VIAL IVPB PRN ×5 (01:53→21:33)
[2018-01-07] MEDS: LEVOTHYROXINE NA 75 MCG TABLET (FP) PO SCH (06:39)
[2018-01-07] MEDS: metroNIDAZOLE 250 MG TABLET PO SCH ×3 (06:40→21:33)
[2018-01-07] MEDS: sitaGLIPtin PHOSPHATE 25 MG TABLET (FP) PO SCH (06:40)
[2018-01-07] MEDS: SACUBITRIL/VALSARTAN 24 MG-26 MG TABLET PO SCH ×2 (10:09→21:34)
[2018-01-07] MEDS: THIAMINE HCL 100 MG TABLET (FP) PO SCH (10:10)
[2018-01-07] MEDS: metoPROLOL SUCCINATE 25 MG TAB.SR.24H (FP) PO SCH (10:10)
[2018-01-07] MEDS: VITAMIN B COMP W-C 1 EA TABLET PO SCH (10:10)
[2018-01-07] MEDS: POLYETHYLENE GLYCOL 3350 119 GM BTL PO SCH ×3 (10:11→21:55)
--- NOTE | 2018-01-07 11:05 | PN ---
Progress Note (short form) - Note Progress Note: Chief Complaint: Events noted, notes reviewed, denies any chest pain or dyspnea , resting in bed, complaining of leg discomfort but significantly improved History of Present Illness: Seen and examined. Events noted, notes reviewed, denies any chest pain or dyspnea, resting in bed, complaining of leg discomfort but significantly improved Echocardiography dated 12/26/2017 revealed moderately dilated with severely decreased LV fxn, RV dilated with severely decreased RV fxn, mod LAE, mild MR, mod TR, mild AR, mod to large pericardial effusion with no evidence of cardiac tamponade Echocardiography dated 10/05/2017 revealed moderately dilated with severely decreased LV fxn, RV dilated with severely decreased RV fxn, mod LAE, mild MR, mod TR, mild AR, mod pericardial effusion similar to previous Echocardiography dated 09/12/2017 revealed moderate pericardial effusion, no tamponade, mildly dilated LV with severely decreased LV fxn, mild-mod dilated RV with severely decreased RV fxn, mod-severe MUKUL, mild MR, mild-mod TR, mild AR Echocardiography dated 08/11/2017 revealed mildly dilated LV with severely decreased LV function, mild-moderately dilated RV with moderately decreased RV function, moderate LAE, mild MR, TR, AR, moderate pericardial effusion with evidence of cardiac tamponade Lexiscan MPI study dated 11/11/2016 revealed large KS involving apex, inferior wall, infero-lateral small area mild royce-infarct ischemia mid anterior wall, dilated severely decreased LVEF 26, RV dilated - Current Medication List Current Medications Acetaminophen (Tylenol -) 325 mg PO Q8H PRN PRN Reason: PAIN SCALE 6-10 Acetaminophen (Ofirmev Injection -) 1,000 mg IVPB Q6H PRN PRN Reason: PAIN Last Admin: 01/05/18 20:59 Dose: 1,000 mg Fentanyl (Sublimaze Injection -) 25 mcg IVPUSH [id number] PRN PRN Reason: PAIN-PACU ORDER X 4 DOSES ONLY Last Admin: 01/03/18 15:55 Dose: 25 mcg Hydromorphone HCl (Dilaudid Vial -) 6 mg IVPB Q3H PRN PRN Reason: PAIN LEVEL 6-10 Last Admin: 01/07/18 10:12 Dose: 6 mg Latanoprost (Xalatan 0.005% Eye Drops -) 1 drop OD HS [facility] Last Admin: 01/06/18 22:27 Dose: 1 drop Levofloxacin (Levaquin -) 500 mg PO Q2D@0600 [facility] Last Admin: 01/06/18 17:29 Dose: 500 mg Levothyroxine Sodium (Synthroid -) 75 mcg PO 0700 [facility] Last Admin: 01/07/18 06:39 Dose: 75 mcg Melatonin (Melatonin) 10 mg PO HS PRN PRN Reason: INSOMNIA Last Admin: 01/06/18 00:13 Dose: 10 mg Metoprolol Succinate (Toprol Xl -) 12.5 mg PO DAILY [facility] Last Admin: 01/07/18 10:10 Dose: Not Given Metronidazole (Flagyl -) 500 mg PO TID [facility] Last Admin: 01/07/18 06:40 Dose: 500 mg Multi-Ingredient Lotion (Eucerin (Large Jar) -) 1 applic TP BID PRN PRN Reason: DRY SKIN Last Admin: 01/05/18 14:43 Dose: 1 applic Multivit/Ca Carb/B Cmplx/FA/Prenat (Nephro-Fer -) 1 tablet PO DAILY [facility] Last Admin: 01/07/18 10:10 Dose: 1 tablet Polyethylene Glycol (Miralax (For Daily Use) -) 17 gm PO BID [facility] Last Admin: 01/07/18 10:11 Dose: Not Given Sacubitril/Valsartan (Entresto 24 Mg-26 Mg Tablet) 1 tab PO BID [facility] Last Admin: 01/07/18 10:09 Dose: Not Given Senna (Senna -) 2 tab PO [facility] Last Admin: 01/06/18 22:26 Dose: 2 tab Sitagliptin Phosphate (Januvia -) 25 mg PO 0700 [facility] Last Admin: 01/07/18 06:40 Dose: 25 mg Thiamine HCl (Vitamin B1 -) 100 mg PO DAILY [facility] Last Admin: 01/07/18 10:10 Dose: 100 mg Vancomycin HCl (Vancomycin (Pre-Docked)) 1,000 mg IVPB TuThSa@1000 [facility] Last Admin: 01/06/18 10:37 Dose: 1,000 mg - Objective Vital Signs: Last Vital Signs Temp Pulse Resp BP Pulse Ox 97.3 F L 67 19 95/55 L 98 01/07/18 06:33 01/07/18 06:33 01/07/18 06:33 01/07/18 06:33 01/06/18 21:00 Intake & Output 01/04/18 01/05/18 01/06/18 01/07/18 23:59 23:59 23:59 23:59 Intake Total 2650 1100 600 300 Output Total 0 0 Balance 2650 1100 600 300 Weight 194 lb 1 oz 194 lb 8 oz 199 lb HEENT: Atraumatic Neck: Supple Negative JVD Cardiovascular: S1 S2 Regular Rate and Rhythm Respiratory: CTA Bilaterally Gastrointestinal: Soft benign Normal Bowel Sounds Ext: Trace Edema Dressing in Situ Labs: CBC, BMP 01/06/18 12:30 01/06/18 12:30 ASSESSMENT and PLAN: ASSESSMENT: 1. Peripheral artery disease, gangrene right forefoot post right tibial revacularization and debridement of bone and soft tissue post Chopart level amputation right foot 2. Ischemic dilated cardiomyopathy with chronic class I-II NYHA classification LV failure, compensated/euvolemic, post prophylactic ICD implant 3. CAD post KS with evidence of history of demand ischemic injury angina pectoris, clinically stable 4. Persistent atrial fibrillation [id number] score of 3-4 on Coumadin 5. Pericardial effusion probably uremic pericarditis, moderate to large in severity/no tamponade 6. Diabetes mellitus 7. Hypothyroidism 8. History of PTE 9. ESRD 10. History of colon cancer PLAN: 1. Antibiotics as per the primary team 2. HD as per renal service 3. As outlined in prior notes to resume Plavix and Coumadin as per INR with close monitoring of CBC once cleared by vascular surgery, unless it is absolutely contraindicated 4. Continue Toprol XL and titrate as hemodynamics permit/tolerate 5. Continue Entresto and titrate as hemodynamics permit/tolerate Rafaela Aguilar MD
--- NOTE | 2018-01-07 11:37 | PN ---
Progress Note (short form) - Note Progress Note: RENAL Pt is awake lying comfortably in bed had a TMA lungs clear cvs s1s2 rr abd soft ext +edema on right LE neuro a+ox3 CBC, BMP 01/06/18 12:30 01/06/18 12:30 Current Medications Generic Name Dose Route Start Last Admin Trade Name Freq PRN Reason Stop Dose Admin Acetaminophen 325 mg 01/03/18 15:40 Tylenol - PO Q8H PRN PAIN SCALE 6-10 Acetaminophen 1,000 mg 01/05/18 13:13 01/05/18 20:59 Ofirmev Injection - IVPB 1,000 mg Q6H PRN Administration PAIN Fentanyl 25 mcg 01/03/18 15:38 01/03/18 15:55 Sublimaze Injection - IVPUSH 25 mcg [id number] PRN Administration PAIN-PACU ORDER X 4 DOSES ONLY Hydromorphone HCl 6 mg 01/06/18 14:18 01/07/18 10:12 Dilaudid Vial - IVPB 6 mg Q3H PRN Administration PAIN LEVEL 6-10 Latanoprost 1 drop 01/03/18 22:00 01/06/18 22:27 Xalatan 0.005% Eye Drops - OD 1 drop HS [facility] Administration Levofloxacin 500 mg 01/06/18 13:45 01/06/18 17:29 Levaquin - PO 500 mg Q2D@0600 [facility] Administration Levothyroxine Sodium 75 mcg 01/04/18 07:00 01/07/18 06:39 Synthroid - PO 75 mcg 0700 [facility] Administration Melatonin 10 mg 01/03/18 22:00 01/06/18 00:13 Melatonin PO 10 mg HS PRN Administration INSOMNIA Metoprolol Succinate 12.5 mg 01/04/18 10:00 01/07/18 10:10 Toprol Xl - PO Not Given DAILY [facility] Metronidazole 500 mg 01/06/18 14:00 01/07/18 06:40 Flagyl - PO 500 mg TID [facility] Administration Multi-Ingredient Lotion 1 applic 01/04/18 12:50 01/05/18 14:43 Eucerin (Large Jar) - TP 1 applic BID PRN Administration DRY SKIN Multivit/Ca Carb/B Cmplx/FA/Prenat 1 tablet 01/04/18 10:00 01/07/18 10:10 Nephro-Fer - PO 1 tablet DAILY [facility] Administration Polyethylene Glycol 17 gm 01/03/18 22:00 01/07/18 10:11 Miralax (For Daily Use) - PO Not Given BID [facility] Sacubitril/Valsartan 1 tab 01/03/18 22:00 01/07/18 10:09 Entresto 24 Mg-26 Mg Tablet PO Not Given BID [facility] Senna 2 tab 01/03/18 22:00 01/06/18 22:26 Senna - PO 2 tab HS [facility] Administration Sitagliptin Phosphate 25 mg 01/04/18 07:00 01/07/18 06:40 Januvia - PO 25 mg 0700 [facility] Administration Thiamine HCl 100 mg 01/04/18 10:00 01/07/18 10:10 Vitamin B1 - PO 100 mg DAILY [facility] Administration Vancomycin HCl 1,000 mg 01/04/18 10:00 01/06/18 10:37 Vancomycin (Pre-Docked) IVPB 1,000 mg TuThSa@1000 [facility] Administration IMPRESSION esrd infected/gangrenous foot s/p tma- doiung well overall LV dysfunction afib hypothyroidism PLAN continue antibiotics monitor glucose closely continue HD will need placement for rehab [facility]
[2018-01-07] MEDS ORDERED: SODIUM CHLORIDE 250 ML IV PRN (11:56)
--- NOTE | 2018-01-07 12:52 | PN ---
Progress Note, Physician History of Present Illness: doing well pain better wound dressing present - Current Medication List Current Medications: Active Medications Acetaminophen (Tylenol -) 325 mg PO Q8H PRN PRN Reason: PAIN SCALE 6-10 Acetaminophen (Ofirmev Injection -) 1,000 mg IVPB Q6H PRN PRN Reason: PAIN Last Admin: 01/05/18 20:59 Dose: 1,000 mg Fentanyl (Sublimaze Injection -) 25 mcg IVPUSH [id number] PRN PRN Reason: PAIN-PACU ORDER X 4 DOSES ONLY Last Admin: 01/03/18 15:55 Dose: 25 mcg Hydromorphone HCl (Dilaudid Vial -) 6 mg IVPB Q3H PRN PRN Reason: PAIN LEVEL 6-10 Last Admin: 01/07/18 10:12 Dose: 6 mg Sodium Chloride (Normal Saline -) 250 mls @ 3,000 mls/hr IV PRN PRN PRN Reason: Hypotension during Dialysis Stop: 01/08/18 11:57 Latanoprost (Xalatan 0.005% Eye Drops -) 1 drop OD HS [facility] Last Admin: 01/06/18 22:27 Dose: 1 drop Levofloxacin (Levaquin -) 500 mg PO Q2D@0600 [facility] Last Admin: 01/06/18 17:29 Dose: 500 mg Levothyroxine Sodium (Synthroid -) 75 mcg PO 0700 [facility] Last Admin: 01/07/18 06:39 Dose: 75 mcg Melatonin (Melatonin) 10 mg PO HS PRN PRN Reason: INSOMNIA Last Admin: 01/06/18 00:13 Dose: 10 mg Metoprolol Succinate (Toprol Xl -) 12.5 mg PO DAILY [facility] Last Admin: 01/07/18 10:10 Dose: Not Given Metronidazole (Flagyl -) 500 mg PO TID [facility] Last Admin: 01/07/18 06:40 Dose: 500 mg Multi-Ingredient Lotion (Eucerin (Large Jar) -) 1 applic TP BID PRN PRN Reason: DRY SKIN Last Admin: 01/05/18 14:43 Dose: 1 applic Multivit/Ca Carb/B Cmplx/FA/Prenat (Nephro-Fer -) 1 tablet PO DAILY [facility] Last Admin: 01/07/18 10:10 Dose: 1 tablet Polyethylene Glycol (Miralax (For Daily Use) -) 17 gm PO BID [facility] Last Admin: 01/07/18 10:11 Dose: Not Given Sacubitril/Valsartan (Entresto 24 Mg-26 Mg Tablet) 1 tab PO BID [facility] Last Admin: 01/07/18 10:09 Dose: Not Given Senna (Senna -) 2 tab PO HS [facility] Last Admin: 01/06/18 22:26 Dose: 2 tab Sitagliptin Phosphate (Januvia -) 25 mg PO 0700 [facility] Last Admin: 01/07/18 06:40 Dose: 25 mg Thiamine HCl (Vitamin B1 -) 100 mg PO DAILY [facility] Last Admin: 01/07/18 10:10 Dose: 100 mg Vancomycin HCl (Vancomycin (Pre-Docked)) 1,000 mg IVPB TuThSa@1000 [facility] Last Admin: 01/06/18 10:37 Dose: 1,000 mg - Objective Vital Signs: Vital Signs Temperature 97.3 F L 01/07/18 06:33 Pulse Rate 67 01/07/18 06:33 Respiratory Rate 19 01/07/18 06:33 Blood Pressure 95/55 L 01/07/18 06:33 O2 Sat by Pulse Oximetry (%) 98 01/06/18 21:00 Constitutional: Yes: No Distress, Calm Cardiovascular: Yes: Regular Rate and Rhythm Respiratory: Yes: Regular, CTA Bilaterally Gastrointestinal: Yes: Normal Bowel Sounds, Soft Musculoskeletal: Yes: WNL Extremities: Yes: Other Wound/Incision: Yes: Dressing Dry and Intact Neurological: Yes: Alert, Oriented Psychiatric: Yes: Alert, Oriented Labs: CBC, BMP 01/06/18 12:30 01/06/18 12:30 INR, PTT INR 1.39 (0.83-1.09) H 01/03/18 06:50 Assessment/Plan Impression 1. ESRD 2. hx pericardial effusion 3. hx pneumopericardium 4. hypothyroidism 5. a-fib 6. hypotension 7. hx of colon cancer 8. CHF 9. DM 10. hx of PE 11. CAD 12. right great toe gangrene patient with rt toe gangrene plan continue abx will d/w surgery about the margins rest as per the team wound care
--- NOTE | 2018-01-07 14:32 | PN ---
Progress Note (short form) - Note Progress Note: s/p TMA poor pain control per patient in spite of inc to 6 mg Pain meds increased to 8 mg q 3 PRN now will adjust 8mg q 3hr right leg elevated -- warm to touch Vital Signs Period Temp Pulse Resp BP Sys/Yoon Pulse Ox Last 24 Hr 97.3 F-97.5 F 60-67 18-19 93-110/46-66 98 neck supple heart irreg S1/S2 +M2/6 lungs clear bilat Ext - right A-V fistula Forearm - HD access + bruit left leg elevated /dressing to right foot clean and dry CBC, BMP 01/06/18 12:30 01/06/18 12:30 CBC, BMP 01/04/18 14:30 01/04/18 14:30 01/03/18 06:50 01/03/18 06:50 Microbiology 12/29/17 14:00 Blood - Post-Dialysis Blood Culture - Final NO GROWTH AFTER 5 DAYS INCUBATION 12/29/17 14:00 Blood - Post-Dialysis Blood Culture - Final NO GROWTH AFTER 5 DAYS INCUBATION 12/27/17 12:30 Foot - Right Gram Stain - Final 12/27/17 12:30 Foot - Right Wound Culture - Final Mr S Aureus Stenotrophomon.(X.)Maltophilia 12/26/17 12:46 Blood - Peripheral Venous Blood Culture - Final NO GROWTH AFTER 5 DAYS INCUBATION 12/26/17 12:46 Blood - Peripheral Venous Blood Culture - Final NO GROWTH AFTER 5 DAYS INCUBATION Active Medications Acetaminophen (Tylenol -) 325 mg PO Q8H PRN PRN Reason: PAIN SCALE 6-10 Acetaminophen (Ofirmev Injection -) 1,000 mg IVPB Q6H PRN PRN Reason: PAIN Last Admin: 01/05/18 20:59 Dose: 1,000 mg Fentanyl (Sublimaze Injection -) 25 mcg IVPUSH [id number] PRN PRN Reason: PAIN-PACU ORDER X 4 DOSES ONLY Last Admin: 01/03/18 15:55 Dose: 25 mcg Hydromorphone HCl (Dilaudid Vial -) 8 mg IVPB Q3H PRN PRN Reason: PAIN LEVEL 6-10 Sodium Chloride (Normal Saline -) 250 mls @ 3,000 mls/hr IV PRN PRN PRN Reason: Hypotension during Dialysis Stop: 01/08/18 11:57 Latanoprost (Xalatan 0.005% Eye Drops -) 1 drop OD HS [facility] Last Admin: 01/06/18 22:27 Dose: 1 drop Levofloxacin (Levaquin -) 500 mg PO Q2D@0600 [facility] Last Admin: 01/06/18 17:29 Dose: 500 mg Levothyroxine Sodium (Synthroid -) 75 mcg PO 0700 [facility] Last Admin: 01/07/18 06:39 Dose: 75 mcg Melatonin (Melatonin) 10 mg PO HS PRN PRN Reason: INSOMNIA Last Admin: 01/06/18 00:13 Dose: 10 mg Metoprolol Succinate (Toprol Xl -) 12.5 mg PO DAILY [facility] Last Admin: 01/07/18 10:10 Dose: Not Given Metronidazole (Flagyl -) 500 mg PO TID [facility] Last Admin: 01/07/18 06:40 Dose: 500 mg Multi-Ingredient Lotion (Eucerin (Large Jar) -) 1 applic TP BID PRN PRN Reason: DRY SKIN Last Admin: 01/05/18 14:43 Dose: 1 applic Multivit/Ca Carb/B Cmplx/FA/Prenat (Nephro-Fer -) 1 tablet PO DAILY [facility] Last Admin: 01/07/18 10:10 Dose: 1 tablet Polyethylene Glycol (Miralax (For Daily Use) -) 17 gm PO BID [facility] Last Admin: 01/07/18 10:11 Dose: Not Given Sacubitril/Valsartan (Entresto 24 Mg-26 Mg Tablet) 1 tab PO BID [facility] Last Admin: 01/07/18 10:09 Dose: Not Given Senna (Senna -) 2 tab PO [facility] Last Admin: 01/06/18 22:26 Dose: 2 tab Sitagliptin Phosphate (Januvia -) 25 mg PO 0700 [facility] Last Admin: 01/07/18 06:40 Dose: 25 mg Thiamine HCl (Vitamin B1 -) 100 mg PO DAILY [facility] Last Admin: 01/07/18 10:10 Dose: 100 mg Vancomycin HCl (Vancomycin (Pre-Docked)) 1,000 mg IVPB TuThSa@1000 [facility] Last Admin: 01/06/18 10:37 Dose: 1,000 mg Assessment/Plan Assmt # right great toe gangrene - POD 4 - Right TMA Abx per ID pain management poor - will adjust again ... hx of drug abuse therefore pain control has been problematic wound care per surgery will need STR for wound care and HD # PVD s/p angioplasty bilat LE right LE done 1 yr ago # CKD5 on chronic HD TTS --HD per renal # DM on insulin / sliding scale # a fib -- rate control a/c #CAD # Cardiomyopathy s/p ICD non ischemic s/p Cath # hypothyroid TSH # HFrEF Hx of EF 15 -20% # anemia of chronic disease # hx of pericardial effusion - chronic ? echo - moderate effision Cardio [place] - Dr Plasencia # hx of colon ca s/p resection # hx of PE - on a/c # hx of pneumopericardium Problem List - Problems (1) Gangrene of toe of right foot Code(s): I96 - GANGRENE, NOT ELSEWHERE CLASSIFIED (2) Diabetic foot ulcer Code(s): E11.621 - TYPE 2 DIABETES MELLITUS WITH FOOT ULCER; L97.509 - NON- PRESSURE CHRONIC ULCER OTH PRT UNSP FOOT W UNSP SEVERITY (3) Amputated toe of right foot Code(s): Z89.421 - ACQUIRED ABSENCE OF OTHER RIGHT TOE(S) (4) Atrial fibrillation Code(s): I48.91 - UNSPECIFIED ATRIAL FIBRILLATION Qualifiers: Atrial fibrillation type: permanent Qualified Code(s): I48.2 - Chronic atrial fibrillation (5) Cardiomyopathy Code(s): I42.9 - CARDIOMYOPATHY, UNSPECIFIED Qualifiers: Cardiomyopathy type: unspecified Qualified Code(s): I42.9 - Cardiomyopathy , unspecified (6) Chronic kidney disease (CKD), stage V Code(s): N18.5 - CHRONIC KIDNEY DISEASE, STAGE 5 (7) Chronic anticoagulation Code(s): Z79.01 - DIRECTOR OF PLACEMENT (CURRENT) USE OF 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 (8) Diabetes mellitus Code(s): E11.9 - TYPE 2 DIABETES MELLITUS WITHOUT COMPLICATIONS Qualifiers: Diabetes mellitus type: type 2 Diabetes mellitus assisted insulin use: with intermediate designer use Diabetes mellitus complication detail: with peripheral angiopathy with gangrene (9) ESRD (end stage renal disease) Code(s): N18.6 - END STAGE RENAL DISEASE (10) Chronic kidney disease on chronic dialysis Code(s): N18.6 - END STAGE RENAL DISEASE; Z99.2 - DEPENDENCE ON RENAL DIALYSIS (11) HTN (hypertension) Code(s): I10 - ESSENTIAL (PRIMARY) HYPERTENSION Qualifiers: Hypertension type: essential hypertension Qualified Code(s): I10 - Essential (primary) hypertension (12) ICD (implantable cardioverter-defibrillator) in place Code(s): Z95.810 - PRESENCE OF AUTOMATIC (IMPLANTABLE) CARDIAC DEFIBRILLATOR (13) Osteomyelitis Code(s): M86.9 - OSTEOMYELITIS, UNSPECIFIED Qualifiers: Osteomyelitis type: other Osteomyelitis location: foot Laterality: right Qualified Code(s): M86.8X7 - Other osteomyelitis, ankle and foot (14) Status post peripheral artery angioplasty Code(s): Z98.62 - PERIPHERAL VASCULAR ANGIOPLASTY STATUS
[2018-01-07] MEDS ORDERED: PT OWN MED DRAWER 7, Y5N ONE (20:36)
[2018-01-07] MEDS: MELATONIN 5 MG TABLETS PO PRN (21:33)
[2018-01-07] MEDS: SENNOSIDES 8.6MG TABLET (FP) PO SCH (21:33)
[2018-01-07] MEDS: LATANOPROST 0.005% OPHTH SOLN 2.5ML BOTTLE OD SCH (23:00)
[2018-01-08] MEDS: HYDROmorphone HCl 2 MG/ML VIAL IVPB PRN ×3 (00:33→21:32)
[2018-01-08] MEDS: metroNIDAZOLE 250 MG TABLET PO SCH ×3 (05:34→21:13)
[2018-01-08] MEDS: sitaGLIPtin PHOSPHATE 25 MG TABLET (FP) PO SCH (06:00)
[2018-01-08] MEDS: LEVOTHYROXINE NA 75 MCG TABLET (FP) PO SCH (06:00)
[2018-01-08] MEDS ORDERED: ALBUMIN HUMAN 25% 12.5 GM/50 ML VIAL IVPB PRN (09:30)
--- NOTE | 2018-01-08 09:52 | PN ---
Progress Note, Physician History of Present Illness: stable doing well - Current Medication List Current Medications: Active Medications Acetaminophen (Tylenol -) 325 mg PO Q8H PRN PRN Reason: PAIN SCALE 6-10 Acetaminophen (Ofirmev Injection -) 1,000 mg IVPB Q6H PRN PRN Reason: PAIN Last Admin: 01/05/18 20:59 Dose: 1,000 mg Fentanyl (Sublimaze Injection -) 25 mcg IVPUSH [id number] PRN PRN Reason: PAIN-PACU ORDER X 4 DOSES ONLY Last Admin: 01/03/18 15:55 Dose: 25 mcg Hydromorphone HCl (Dilaudid Vial -) 8 mg IVPB Q3H PRN PRN Reason: PAIN LEVEL 6-10 Last Admin: 01/08/18 05:34 Dose: 8 mg Sodium Chloride (Normal Saline -) 250 mls @ 3,000 mls/hr IV PRN PRN PRN Reason: Hypotension during Dialysis Stop: 01/08/18 11:57 Latanoprost (Xalatan 0.005% Eye Drops -) 1 drop OD HS [facility] Last Admin: 01/07/18 23:00 Dose: 1 drop Levofloxacin (Levaquin -) 500 mg PO Q2D@0600 [facility] Last Admin: 01/08/18 05:34 Dose: 500 mg Levothyroxine Sodium (Synthroid -) 75 mcg PO 0700 [facility] Last Admin: 01/08/18 06:00 Dose: 75 mcg Melatonin (Melatonin) 10 mg PO HS PRN PRN Reason: INSOMNIA Last Admin: 01/07/18 21:33 Dose: 10 mg Metoprolol Succinate (Toprol Xl -) 12.5 mg PO DAILY [facility] Last Admin: 01/07/18 10:10 Dose: Not Given Metronidazole (Flagyl -) 500 mg PO TID [facility] Last Admin: 01/08/18 05:34 Dose: 500 mg Multi-Ingredient Lotion (Eucerin (Large Jar) -) 1 applic TP BID PRN PRN Reason: DRY SKIN Last Admin: 01/05/18 14:43 Dose: 1 applic Multivit/Ca Carb/B Cmplx/FA/Prenat (Nephro-Fer -) 1 tablet PO DAILY [facility] Last Admin: 01/07/18 10:10 Dose: 1 tablet Polyethylene Glycol (Miralax (For Daily Use) -) 17 gm PO BID [facility] Last Admin: 01/07/18 21:55 Dose: Not Given Sacubitril/Valsartan (Entresto 24 Mg-26 Mg Tablet) 1 tab PO BID [facility] Last Admin: 01/07/18 21:34 Dose: Not Given Senna (Senna -) 2 tab PO HS [facility] Last Admin: 01/07/18 21:33 Dose: 2 tab Sitagliptin Phosphate (Januvia -) 25 mg PO 0700 [facility] Last Admin: 01/08/18 06:00 Dose: 25 mg Thiamine HCl (Vitamin B1 -) 100 mg PO DAILY [facility] Last Admin: 01/07/18 10:10 Dose: 100 mg Vancomycin HCl (Vancomycin (Pre-Docked)) 1,000 mg IVPB TuThSa@1000 [facility] Last Admin: 01/06/18 10:37 Dose: 1,000 mg - Objective Vital Signs: Vital Signs Temperature 97.7 F 01/08/18 08:40 Pulse Rate 66 01/08/18 08:45 Respiratory Rate 18 01/08/18 08:45 Blood Pressure 95/60 01/08/18 08:45 O2 Sat by Pulse Oximetry (%) 94 L 01/07/18 22:00 Constitutional: Yes: No Distress, Calm Cardiovascular: Yes: Regular Rate and Rhythm Respiratory: Yes: Regular, CTA Bilaterally Gastrointestinal: Yes: Normal Bowel Sounds, Soft Musculoskeletal: Yes: WNL Extremities: Yes: Other Neurological: Yes: Alert, Oriented Psychiatric: Yes: Alert, Oriented Labs: CBC, BMP 01/06/18 12:30 01/06/18 12:30 INR, PTT INR 1.39 (0.83-1.09) H 01/03/18 06:50 Assessment/Plan Impression 1. ESRD 2. hx pericardial effusion 3. hx pneumopericardium 4. hypothyroidism 5. a-fib 6. hypotension 7. hx of colon cancer 8. CHF 9. DM 10. hx of PE 11. CAD 12. right great toe gangrene patient with rt toe gangrene plan continue abx will d/w surgery about the margins rest as per the team wound care
--- NOTE | 2018-01-08 12:11 | DS ---
Physical Examination Vital Signs: Vital Signs Temperature 97.7 F 01/08/18 08:40 Pulse Rate 66 01/08/18 11:45 Respiratory Rate 18 01/08/18 11:45 Blood Pressure 98/55 L 01/08/18 11:45 O2 Sat by Pulse Oximetry (%) 95 01/08/18 08:35 Findings/Remarks: 72yo M with h/o ESRD (T/T/S; performed at [facility]), hypothyroidism, Afib, Cardiomyopathy with ICD implantation, DM, pericardial effusion, and RLE gangrene s/p multiple amputations who presents today with worsening R 1st toe infection and suspicion of gangrene. Pt was seen at the wound care center yesterday and was sent to the ED due to needing an amputation. Pt arrived after dialysis, ( had 4kg removed). Pt presentsd to ER with pain in his R 1st toe associated with fevers and chills. Pt denies any shortness of breath, lightheadedness, chest pain, palpitations, abdominal pain, diarrhea/ constipation. Patient has failed multiple attempts to heal great toe, now will require surgical intervention. PMHx: #right great toe gangrene - on admission #Previous RLE gangrene of toes 2-5 s/p amputation #osteomyelitis - elevated ESR /crp /alk phos #hyponatremia ( Na 128) #PVD #CKD5 on chronic HD (T/T/S) #DM on insulin / # a fib -- a/c on coumadin #CAD #Cardiomyopathy s/p ICD #hypothyroid #HF -- echo ?? -- last echo reviewed 15-20% EF #anemia of chronic disease # hx of pericardial effusion -moderate ? chronic >6 months hx of colon ca s/p resection hx of PE - on a/c hx of pneumopericardium Constitutional: Yes: Well Nourished, No Distress, Calm Eyes: Yes: Conjunctiva Clear, EOM Intact HENT: Yes: Atraumatic, Normocephalic Neck: Yes: Supple, Trachea Midline Cardiovascular: Yes: Pulse Irregular Respiratory: Yes: CTA Bilaterally Gastrointestinal: Yes: Normal Bowel Sounds, Soft ...Rectal Exam: Yes: Deferred Renal/: Yes: Anuria Breast(s): Yes: WNL Musculoskeletal: Yes: WNL Extremities: Yes: Amputation Edema: No Wound/Incision: Yes: Clean/Dry, Sutures Intact, Dressing Dry and Intact. No: Draining Neurological: Yes: Alert, Oriented Psychiatric: Yes: Alert, Oriented Labs: CBC, BMP 01/06/18 12:30 01/06/18 12:30 Discharge Summary Reason For Visit: GANGRENE OF TOE ON RIGHT FOOT Current Active Problems Chronic kidney disease (CKD), stage V (Acute) Chronic kidney disease on chronic dialysis (Acute) Diabetic foot ulcer (Acute) Gangrene of toe of right foot (Acute) hyponatremia on admission - corrected Atrial fibrillation Cardiomyopathy s/p ICD Hypothyroid Diabetes Mellitus II PVD Pericardial effusion, moderate HFrEF anemia of chronic disease Pre-operative cardiovascular examination (Acute) Condition: Improved - Instructions Referrals: Shreyas Lyle MD [Primary Care Provider] - [facility] - Home Medications Comprehensive Discharge Medication List: Ambulatory Orders Clopidogrel Bisulfate [Plavix -] 75 mg PO DAILY 09/11/17 Glucosamine Sulfate Dipot Chlr [Glucosamine] 500 mg PO DAILY 09/11/17 Levothyroxine [Synthroid -] 75 mcg PO DAILY 09/11/17 Melatonin 5 mg PO HS PRN 09/11/17 Oxycodone HCl/Acetaminophen [Percocet 5-325 mg Tablet] 1 tab PO Q8H PRN Sacubitril/Valsartan [Entresto 24 mg-26 mg Tablet] 1 each PO BID 09/11/17 Sennosides [Senna -] 2 tab PO HS 09/11/17 Thiamine HCl [B-1] 100 mg PO DAILY 09/11/17 Acetaminophen [Tylenol .Regular Strength -] 325 mg PO Q8H PRN tablet 09/18/17 Metoprolol Succinate [Toprol XL -] 12.5 mg PO DAILY tab.sr.24h 09/18/17 Sitagliptin Phosphate [Januvia -] 25 mg PO 0700 tab 09/18/17 Warfarin Na [Coumadin -] 6 mg PO DAILY@1800 tablet 09/18/17 Insulin Aspart [Novolog] 100 unit SQ BID 10/04/17 Bacitracin - [Bacitracin Topical Ointment -] 500 units TP BID 11/29/17 Latanoprost 0.005% Eye Drops [Xalatan 0.005% Eye Drops -] 1 drop HS 11/29/17 Vitamin B Comp W-C [Nephro-Fer -] 0.8 mg PO DAILY 11/29/17 Polyethylene Glycol 3350 [Miralax (For Daily Use) -] 17 gm PO BID 12/26/17
[2018-01-08] MEDS: VITAMIN B COMP W-C 1 EA TABLET PO SCH (12:47)
[2018-01-08] MEDS: SACUBITRIL/VALSARTAN 24 MG-26 MG TABLET PO SCH ×2 (12:49→21:13)
--- NOTE | 2018-01-08 12:49 | PN ---
Progress Note, Physician History of Present Illness: POD#5 right TMA. Hemodynamically stable, pain adequately controlled, denies fevers. Spice Fumigator: Dr. Ghassan Durant - Current Medication List Current Medications: Active Medications Acetaminophen (Tylenol -) 325 mg PO Q8H PRN PRN Reason: PAIN SCALE 6-10 Acetaminophen (Ofirmev Injection -) 1,000 mg IVPB Q6H PRN PRN Reason: PAIN Last Admin: 01/05/18 20:59 Dose: 1,000 mg Albumin Human (Albumin Human 25%) 12.5 gm IVPB Q30M PRN PRN Reason: HYPERTENSION Last Admin: 01/08/18 09:30 Dose: 12.5 gm Fentanyl (Sublimaze Injection -) 25 mcg IVPUSH [id number] PRN PRN Reason: PAIN-PACU ORDER X 4 DOSES ONLY Last Admin: 01/03/18 15:55 Dose: 25 mcg Hydromorphone HCl (Dilaudid Vial -) 8 mg IVPB Q3H PRN PRN Reason: PAIN LEVEL 6-10 Last Admin: 01/08/18 05:34 Dose: 8 mg Sodium Chloride (Normal Saline -) 250 mls @ 3,000 mls/hr IV PRN PRN PRN Reason: Hypotension during Dialysis Stop: 01/08/18 11:57 Latanoprost (Xalatan 0.005% Eye Drops -) 1 drop OD HS [facility] Last Admin: 01/07/18 23:00 Dose: 1 drop Levofloxacin (Levaquin -) 500 mg PO Q2D@0600 [facility] Last Admin: 01/08/18 05:34 Dose: 500 mg Levothyroxine Sodium (Synthroid -) 75 mcg PO 0700 [facility] Last Admin: 01/08/18 06:00 Dose: 75 mcg Melatonin (Melatonin) 10 mg PO HS PRN PRN Reason: INSOMNIA Last Admin: 01/07/18 21:33 Dose: 10 mg Metoprolol Succinate (Toprol Xl -) 12.5 mg PO DAILY [facility] Last Admin: 01/07/18 10:10 Dose: Not Given Metronidazole (Flagyl -) 500 mg PO TID [facility] Last Admin: 01/08/18 05:34 Dose: 500 mg Multi-Ingredient Lotion (Eucerin (Large Jar) -) 1 applic TP BID PRN PRN Reason: DRY SKIN Last Admin: 01/05/18 14:43 Dose: 1 applic Multivit/Ca Carb/B Cmplx/FA/Prenat (Nephro-Fer -) 1 tablet PO DAILY [facility] Last Admin: 01/07/18 10:10 Dose: 1 tablet Polyethylene Glycol (Miralax (For Daily Use) -) 17 gm PO BID [facility] Last Admin: 01/07/18 21:55 Dose: Not Given Sacubitril/Valsartan (Entresto 24 Mg-26 Mg Tablet) 1 tab PO BID [facility] Last Admin: 01/07/18 21:34 Dose: Not Given Senna (Senna -) 2 tab PO HS [facility] Last Admin: 01/07/18 21:33 Dose: 2 tab Sitagliptin Phosphate (Januvia -) 25 mg PO 0700 [facility] Last Admin: 01/08/18 06:00 Dose: 25 mg Thiamine HCl (Vitamin B1 -) 100 mg PO DAILY [facility] Last Admin: 01/07/18 10:10 Dose: 100 mg Vancomycin HCl (Vancomycin (Pre-Docked)) 1,000 mg IVPB TuThSa@1000 [facility] Last Admin: 01/06/18 10:37 Dose: 1,000 mg - Objective Vital Signs: Vital Signs Temperature 97.7 F 01/08/18 08:40 Pulse Rate 57 L 01/08/18 12:20 Respiratory Rate 18 01/08/18 12:20 Blood Pressure 107/64 01/08/18 12:20 O2 Sat by Pulse Oximetry (%) 95 01/08/18 08:35 Constitutional: Yes: No Distress, Calm Neck: Yes: Supple Cardiovascular: Yes: Pulse Irregular Respiratory: Yes: Regular, Diminished, On Nasal O2 Gastrointestinal: Yes: Normal Bowel Sounds, Soft Extremities: Yes: Amputation (Right TMA) Edema: Yes Edema: RLE: 1+ Wound/Incision: Yes: Dressing Dry and Intact Labs: CBC, BMP 01/06/18 12:30 01/06/18 12:30 INR, PTT INR 1.39 (0.83-1.09) H 01/03/18 06:50 Problem List - Problems (1) Gangrene of toe of right foot Code(s): I96 - GANGRENE, NOT ELSEWHERE CLASSIFIED (2) Amputated toe of right foot Code(s): Z89.421 - ACQUIRED ABSENCE OF OTHER RIGHT TOE(S) (3) Atrial fibrillation Code(s): I48.91 - UNSPECIFIED ATRIAL FIBRILLATION Qualifiers: Atrial fibrillation type: permanent Qualified Code(s): I48.2 - Chronic atrial fibrillation (4) Cardiomyopathy Code(s): I42.9 - CARDIOMYOPATHY, UNSPECIFIED Qualifiers: Cardiomyopathy type: unspecified Qualified Code(s): I42.9 - Cardiomyopathy , unspecified (5) Chronic anticoagulation Code(s): Z79.01 - LEAN 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 SPECIALIST (CURRENT) USE OF 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 (6) Diabetes mellitus Code(s): E11.9 - TYPE 2 DIABETES MELLITUS WITHOUT COMPLICATIONS Qualifiers: Diabetes mellitus type: type 2 Diabetes mellitus penitentiary insulin use: with terminal supervisor use Diabetes mellitus complication detail: with peripheral angiopathy with gangrene (7) ESRD (end stage renal disease) Code(s): N18.6 - END STAGE RENAL DISEASE (8) Hypothyroid Code(s): E03.9 - HYPOTHYROIDISM, UNSPECIFIED Qualifiers: Hypothyroidism type: unspecified Qualified Code(s): E03.9 - Hypothyroidism , unspecified (9) ICD (implantable cardioverter-defibrillator) in place Code(s): Z95.810 - PRESENCE OF AUTOMATIC (IMPLANTABLE) CARDIAC DEFIBRILLATOR (10) Open wound of foot Code(s): S91.309A - UNSPECIFIED OPEN WOUND, UNSPECIFIED FOOT, INITIAL ENCOUNTER Qualifiers: Encounter type: subsequent encounter Laterality: right Qualified Code(s) : S91.301D - Unspecified open wound, right foot, subsequent encounter (11) Pericardial effusion Code(s): I31.3 - PERICARDIAL EFFUSION (NONINFLAMMATORY) (12) Status post peripheral artery angioplasty Code(s): Z98.62 - PERIPHERAL VASCULAR ANGIOPLASTY STATUS Assessment/Plan 09/12/2017 Echo: Moderate pericardial effusion, no tamponade, mildly dilated LV with severely decreased LV fxn, mild-mod dilated RV with severely decreased RV fxn, mod-severe MUKUL, mild MR, mild-mod TR, mild AR 10/05/2017 Echo: Moderately dilated with severely decreased LV fxn, RV dilated with severely decreased RV fxn, mod LAE, mild MR, mod TR, mild AR, mod pericardial effusion similar to previous 1. Peripheral artery disease, gangrene right forefoot post right tibial revacularization and debridement of bone and soft tissue post Ch[place]art level amputation right foot 2. Ischemic dilated cardiomyopathy with chronic class I-II NYHA classification LV failure, compensated/euvolemic, post prophylactic ICD implant 3. CAD post NV with evidence of history of demand ischemic injury angina pectoris, clinically stable 4. Persistent atrial fibrillation [id number] score of 3-4 off Coumadin post-op 5. Pericardial effusion probably uremic pericarditis, moderate to large in severity/no tamponade 6. Diabetes mellitus 7. Hypothyroidism 8. History of PTE 9. ESRD 10. History of colon cancer PLAN: 1. Complete antibiotic course as per the primary team 2. HD as per renal service 3. Resume Plavix and Coumadin as per INR with close monitoring of CBC once hemostasis achieved 4. Continue Toprol XL 12.5 qd and titrate as hemodynamics permit/tolerate 5. Continue Entresto 24/26 bid and titrate as hemodynamics permit/tolerate Spice Fumigator: Dr. Ghassan Durant
[2018-01-08] MEDS: POLYETHYLENE GLYCOL 3350 119 GM BTL PO SCH ×2 (12:50→21:13)
[2018-01-08] MEDS: metoPROLOL SUCCINATE 25 MG TAB.SR.24H (FP) PO SCH (12:50)
[2018-01-08] MEDS: THIAMINE HCL 100 MG TABLET (FP) PO SCH (12:50)
--- NOTE | 2018-01-08 14:04 | PN ---
Progress Note, Physician History of Present Illness: Pt seen and examined at bedside. He tolerated HD. He denies shortness of breath. - Current Medication List Current Medications: Active Medications Acetaminophen (Tylenol -) 325 mg PO Q8H PRN PRN Reason: PAIN SCALE 6-10 Acetaminophen (Ofirmev Injection -) 1,000 mg IVPB Q6H PRN PRN Reason: PAIN Last Admin: 01/05/18 20:59 Dose: 1,000 mg Albumin Human (Albumin Human 25%) 12.5 gm IVPB Q30M PRN PRN Reason: HYPERTENSION Last Admin: 01/08/18 09:30 Dose: 12.5 gm Fentanyl (Sublimaze Injection -) 25 mcg IVPUSH [id number] PRN PRN Reason: PAIN-PACU ORDER X 4 DOSES ONLY Last Admin: 01/03/18 15:55 Dose: 25 mcg Hydromorphone HCl (Dilaudid Vial -) 8 mg IVPB Q3H PRN PRN Reason: PAIN LEVEL 6-10 Last Admin: 01/08/18 05:34 Dose: 8 mg Sodium Chloride (Normal Saline -) 250 mls @ 3,000 mls/hr IV PRN PRN PRN Reason: Hypotension during Dialysis Stop: 01/08/18 11:57 Latanoprost (Xalatan 0.005% Eye Drops -) 1 drop OD HS [facility] Last Admin: 01/07/18 23:00 Dose: 1 drop Levofloxacin (Levaquin -) 500 mg PO Q2D@0600 [facility] Last Admin: 01/08/18 05:34 Dose: 500 mg Levothyroxine Sodium (Synthroid -) 75 mcg PO 0700 [facility] Last Admin: 01/08/18 06:00 Dose: 75 mcg Melatonin (Melatonin) 10 mg PO HS PRN PRN Reason: INSOMNIA Last Admin: 01/07/18 21:33 Dose: 10 mg Metoprolol Succinate (Toprol Xl -) 12.5 mg PO DAILY [facility] Last Admin: 01/08/18 12:50 Dose: 12.5 mg Metronidazole (Flagyl -) 500 mg PO TID [facility] Last Admin: 01/08/18 05:34 Dose: 500 mg Multi-Ingredient Lotion (Eucerin (Large Jar) -) 1 applic TP BID PRN PRN Reason: DRY SKIN Last Admin: 01/05/18 14:43 Dose: 1 applic Multivit/Ca Carb/B Cmplx/FA/Prenat (Nephro-Fer -) 1 tablet PO DAILY [facility] Last Admin: 01/08/18 12:47 Dose: 1 tablet Polyethylene Glycol (Miralax (For Daily Use) -) 17 gm PO BID [facility] Last Admin: 01/08/18 12:50 Dose: Not Given Sacubitril/Valsartan (Entresto 24 Mg-26 Mg Tablet) 1 tab PO BID [facility] Last Admin: 01/08/18 12:49 Dose: 1 tab Senna (Senna -) 2 tab PO HS [facility] Last Admin: 01/07/18 21:33 Dose: 2 tab Sitagliptin Phosphate (Januvia -) 25 mg PO 0700 [facility] Last Admin: 01/08/18 06:00 Dose: 25 mg Thiamine HCl (Vitamin B1 -) 100 mg PO DAILY [facility] Last Admin: 01/08/18 12:50 Dose: 100 mg Vancomycin HCl (Vancomycin (Pre-Docked)) 1,000 mg IVPB TuThSa@1000 [facility] Last Admin: 01/06/18 10:37 Dose: 1,000 mg - Objective Vital Signs: Vital Signs Temperature 97.7 F 01/08/18 08:40 Pulse Rate 57 L 01/08/18 12:20 Respiratory Rate 18 01/08/18 12:20 Blood Pressure 98/61 01/08/18 13:00 O2 Sat by Pulse Oximetry (%) 95 01/08/18 08:35 Constitutional: Yes: Calm Eyes: Yes: Conjunctiva Clear HENT: Yes: Atraumatic Cardiovascular: Yes: S1, S2 Respiratory: Yes: CTA Bilaterally Gastrointestinal: Yes: Normal Bowel Sounds, Soft Genitourinary: Yes: WNL Edema: Yes Neurological: Yes: Oriented Psychiatric: Yes: Oriented Labs: CBC, BMP 01/06/18 12:30 01/06/18 12:30 INR, PTT INR 1.39 (0.83-1.09) H 01/03/18 06:50 Problem List - Problems (1) Gangrene of toe of right foot Code(s): I96 - GANGRENE, NOT ELSEWHERE CLASSIFIED (2) ESRD (end stage renal disease) Code(s): N18.6 - END STAGE RENAL DISEASE Assessment/Plan Current Medications Generic Name Dose Route Start Last Admin Trade Name Freq PRN Reason Stop Dose Admin Acetaminophen 325 mg 01/03/18 15:40 Tylenol - PO Q8H PRN PAIN SCALE 6-10 Acetaminophen 1,000 mg 01/05/18 13:13 01/05/18 20:59 Ofirmev Injection - IVPB 1,000 mg Q6H PRN Administration PAIN Albumin Human 12.5 gm 01/08/18 09:30 01/08/18 09:30 Albumin Human 25% IVPB 12.5 gm Q30M PRN Administration HYPERTENSION Fentanyl 25 mcg 01/03/18 15:38 01/03/18 15:55 Sublimaze Injection - IVPUSH 25 mcg [id number] PRN Administration PAIN-PACU ORDER X 4 DOSES ONLY Hydromorphone HCl 8 mg 01/07/18 14:24 01/08/18 05:34 Dilaudid Vial - IVPB 8 mg Q3H PRN Administration PAIN LEVEL 6-10 Sodium Chloride 250 mls @ 3,000 mls/hr 01/07/18 11:56 Normal Saline - IV 01/08/18 11:57 PRN PRN Hypotension during Dialysis Latanoprost 1 drop 01/03/18 22:00 01/07/18 23:00 Xalatan 0.005% Eye Drops - OD 1 drop HS [facility] Administration Levofloxacin 500 mg 01/06/18 13:45 01/08/18 05:34 Levaquin - PO 500 mg Q2D@0600 [facility] Administration Levothyroxine Sodium 75 mcg 01/04/18 07:00 01/08/18 06:00 Synthroid - PO 75 mcg 0700 [facility] Administration Melatonin 10 mg 01/03/18 22:00 01/07/18 21:33 Melatonin PO 10 mg HS PRN Administration INSOMNIA Metoprolol Succinate 12.5 mg 01/04/18 10:00 01/08/18 12:50 Toprol Xl - PO 12.5 mg DAILY [facility] Administration Metronidazole 500 mg 01/06/18 14:00 01/08/18 05:34 Flagyl - PO 500 mg TID [facility] Administration Multi-Ingredient Lotion 1 applic 01/04/18 12:50 01/05/18 14:43 Eucerin (Large Jar) - TP 1 applic BID PRN Administration DRY SKIN Multivit/Ca Carb/B Cmplx/FA/Prenat 1 tablet 01/04/18 10:00 01/08/18 12:47 Nephro-Fer - PO 1 tablet DAILY [facility] Administration Polyethylene Glycol 17 gm 01/03/18 22:00 01/08/18 12:50 Miralax (For Daily Use) - PO Not Given BID [facility] Sacubitril/Valsartan 1 tab 01/03/18 22:00 01/08/18 12:49 Entresto 24 Mg-26 Mg Tablet PO 1 tab BID [facility] Administration Senna 2 tab 01/03/18 22:00 01/07/18 21:33 Senna - PO 2 tab HS [facility] Administration Sitagliptin Phosphate 25 mg 01/04/18 07:00 01/08/18 06:00 Januvia - PO 25 mg 0700 [facility] Administration Thiamine HCl 100 mg 01/04/18 10:00 01/08/18 12:50 Vitamin B1 - PO 100 mg DAILY [facility] Administration Vancomycin HCl 1,000 mg 01/04/18 10:00 01/06/18 10:37 Vancomycin (Pre-Docked) IVPB 1,000 mg TuThSa@1000 [facility] Administration Impression 1. ESRD 2. hx pericardial effusion 3. hx pneumopericardium 4. hypothyroidism 5. a-fib 6. hypotension 7. hx of colon cancer 8. CHF 9. DM 10. hx of PE 11. CAD 12. right great toe gangrene Plan - pt tolerated HD - cont wound care - will need vascular follow up - discussed fluid intake - abx per ID - will follow
[2018-01-08] MEDS ORDERED: WARFARIN NA 5 MG TABLET (UD) PO ONE (14:45)
[2018-01-08] MEDS: CLOPIDOGREL BISULFATE 75 MG TABLET (FP) PO SCH (14:45)
--- NOTE | 2018-01-08 15:11 | PATH ---
Surgical Pathology Report Patient Name: BETTYE VALERIO [facility]. Rec. #: [id number] /Age/Gender: 1945 (Age: 72) / M Account: [id number] Location: [address] [place] [address]/[facility] Taken: 01/03/2018 Received: 01/05/2018 Reported: 01/08/2018 Physicians: Olvin Cope M.D. PHYSICIAN EMERGENCY DEPT Specimen(s) Received RIGHT TRANSMETATARSAL FOOT Clinical History Gangrene of toe on right foot Final Diagnosis FOOT, RIGHT, TRANSMETATARSAL AMPUTATION: PORTION OF FOOT WITH MARKED ACUTE INFLAMMATION, GANGRENOUS NECROSIS, AND ASSOCIATED ULCERATION. UNDERLYING BONE WITH ACUTE OSTEOMYELITIS. RARE MICROCALCIFICATIONS WITHIN VASCULAR WALL. SURGICAL MARGINS ARE VIABLE. Electronically Signed April Paul M.D. Gross Description Received in formalin labeled "right foot transmetatarsal," is an 11.0 x 9.5 x 6.0 cm transmetatarsal foot amputation. Digits 2-5 have been previously amputated. There is an ulcerated lesion at the previous amputation site and the remaining epidermal surface displays a black-brown gangrenous lesion involving the skin and soft tissue margin. The lesion possibly involves the underlying bone. Bilingual Operator sections are submitted in 8 cassettes as follows: 1-lesion from previous amputation site; 2-lesion from first digit with underlying bone, following decalcification. 3-skin and soft tissue margin; 4-bone margin from first metatarsal, following decalcification; 5-bone margin from second metatarsal, following decalcification; 6-bone margin from third metatarsal, following decalcification; 7-bone margin from fourth metatarsal, following decalcification; 8-bone margin from fifth metatarsal, following decalcification. /01/05/2018 saudi01/05/2018
[2018-01-08] MEDS ORDERED: WARFARIN NA 10 MG TABLET (FP) PO ONE (15:30)
--- NOTE | 2018-01-08 17:27 | PN ---
Progress Note (short form) - Note Progress Note: Afebrile Pain better controlled Right foot wound open medially, one suture has pulled out. There is small amount of bloody drainage. Packing replaced. Plan for wound care with Iodoform packing QOD. Leg elevation and GARRY to control edema. HBO to restart after discharge if approved. I will follow in office and [facility]. Problem List - Problems (1) Gangrene of toe of right foot Code(s): I96 - GANGRENE, NOT ELSEWHERE CLASSIFIED
[2018-01-08] MEDS ORDERED: SIMETHICONE 80 MG TAB.CHEW (FP) PO PRN (18:02)
[2018-01-08] MEDS ORDERED: PT OWN MED DRAWER 7, Y5N ONE ×2 (20:51→21:19)
[2018-01-08] MEDS: SENNOSIDES 8.6MG TABLET (FP) PO SCH (21:13)
[2018-01-08] MEDS: LATANOPROST 0.005% OPHTH SOLN 2.5ML BOTTLE OD SCH (21:13)
[2018-01-09] MEDS: HYDROmorphone HCl 2 MG/ML VIAL IVPB PRN ×3 (01:37→15:24)
[2018-01-09] MEDS: metroNIDAZOLE 250 MG TABLET PO SCH ×2 (06:17→15:21)
[2018-01-09] MEDS: LEVOTHYROXINE NA 75 MCG TABLET (FP) PO SCH (06:17)
[2018-01-09] MEDS: sitaGLIPtin PHOSPHATE 25 MG TABLET (FP) PO SCH (06:17)
[2018-01-09 08:21] LABS: INR 1.46 (0.83-1.09); PROTHROMBIN TIME (PATIENT) 17.3 SEC (9.7-13.0)
[2018-01-09] MEDS: THIAMINE HCL 100 MG TABLET (FP) PO SCH (09:38)
[2018-01-09] MEDS: metoPROLOL SUCCINATE 25 MG TAB.SR.24H (FP) PO SCH (09:38)
[2018-01-09] MEDS: CLOPIDOGREL BISULFATE 75 MG TABLET (FP) PO SCH (09:38)
[2018-01-09] MEDS: VITAMIN B COMP W-C 1 EA TABLET PO SCH (09:38)
[2018-01-09] MEDS: SACUBITRIL/VALSARTAN 24 MG-26 MG TABLET PO SCH (09:39)
[2018-01-09] MEDS: POLYETHYLENE GLYCOL 3350 119 GM BTL PO SCH (09:40)
[2018-01-09] MEDS: VANCOMYCIN 1 GRAM (PRE-DOCKED) 1,000 MG/250 ML BAG IVPB SCH ×2 (09:41→13:46)
--- NOTE | 2018-01-09 10:58 | PN ---
Progress Note (short form) - Note Progress Note: POD#6 right TMA patient seen and examined at bedside. Patient states the last time his dressing was changed it felt too tight, the pain resolved immediately after the dressing was loosened. He has been tolerating his diet and denies any CP, SOB, N/V, fever of chills. Vital Signs Temp 97.9 F 01/09/18 10:00 Pulse 67 01/09/18 10:00 Resp 18 01/09/18 10:00 BP 98/56 L 01/09/18 10:00 Pulse Ox 96 01/09/18 08:20 Intake & Output 01/08/1818 01/09/18 11:59 23:59 11:59 Intake Total 150 260 200 Balance 150 260 200 Weight 196 lb 6 oz 200 lb 2 oz Intake: IVPB 150 100 200 Oral 160 Other: Voiding Method Urinal Urinal Urinal Bowel Movement Yes # Bowel Movements 1 Weight Measurement Method Built in [facility] Built in [facility] CBC, BMP 01/06/18 12:30 01/06/18 12:30 PE: A&Ox3, NAD unlabored resp on 4L NC Right LE, wound opened medially and packing removed, granular tissue seen at base with no foul smell or active d/c, area re-packed with iodaform, Sutures in situ along remainder of incision with surrounding tissue intact, no bogginess or evidence tracking erythema or dehiscence, foot warm to touch, LE compartment with some diffuse edema, LE compartments soft, supple and non-tender to palpation. Problem List - Problems (1) Status post transmetatarsal amputation of right foot Assessment/Plan: POD#6 right TMA with packing medially, patient doing well, pain controlled. 1) Leg elevation and GARRY to control edema. 2) Dressing change/packing QOD 3) Abx per ID/Med 4) HBO to restart after discharge if approved. 5) Follow up with Prisca as outpatient. Evaluation and plan discussed with Dr Cope. Code(s): Z89.431 - ACQUIRED ABSENCE OF RIGHT FOOT
--- NOTE | 2018-01-09 11:18 | PN ---
Progress Note, Physician History of Present Illness: stable doing well no issues - Current Medication List Current Medications: Active Medications Acetaminophen (Tylenol -) 325 mg PO Q8H PRN PRN Reason: PAIN SCALE 6-10 Acetaminophen (Ofirmev Injection -) 1,000 mg IVPB Q6H PRN PRN Reason: PAIN Last Admin: 01/05/18 20:59 Dose: 1,000 mg Albumin Human (Albumin Human 25%) 12.5 gm IVPB Q30M PRN PRN Reason: HYPERTENSION Last Admin: 01/08/18 09:30 Dose: 12.5 gm Clopidogrel Bisulfate (Plavix -) 75 mg PO DAILY [facility] Last Admin: 01/09/18 09:38 Dose: 75 mg Fentanyl (Sublimaze Injection -) 25 mcg IVPUSH [id number] PRN PRN Reason: PAIN-PACU ORDER X 4 DOSES ONLY Last Admin: 01/03/18 15:55 Dose: 25 mcg Hydromorphone HCl (Dilaudid Vial -) 8 mg IVPB Q3H PRN PRN Reason: PAIN LEVEL 6-10 Last Admin: 01/09/18 06:31 Dose: 8 mg Sodium Chloride (Normal Saline -) 250 mls @ 3,000 mls/hr IV PRN PRN PRN Reason: Hypotension during Dialysis Stop: 01/08/18 11:57 Latanoprost (Xalatan 0.005% Eye Drops -) 1 drop OD HS [facility] Last Admin: 01/08/18 21:13 Dose: 1 drop Levofloxacin (Levaquin -) 500 mg PO Q2D@0600 [facility] Last Admin: 01/08/18 05:34 Dose: 500 mg Levothyroxine Sodium (Synthroid -) 75 mcg PO 0700 [facility] Last Admin: 01/09/18 06:17 Dose: 75 mcg Melatonin (Melatonin) 10 mg PO HS PRN PRN Reason: INSOMNIA Last Admin: 01/07/18 21:33 Dose: 10 mg Metoprolol Succinate (Toprol Xl -) 12.5 mg PO DAILY [facility] Last Admin: 01/09/18 09:38 Dose: 12.5 mg Metronidazole (Flagyl -) 500 mg PO TID [facility] Last Admin: 01/09/18 06:17 Dose: 500 mg Multi-Ingredient Lotion (Eucerin (Large Jar) -) 1 applic TP BID PRN PRN Reason: DRY SKIN Last Admin: 01/05/18 14:43 Dose: 1 applic Multivit/Ca Carb/B Cmplx/FA/Prenat (Nephro-Fer -) 1 tablet PO DAILY [facility] Last Admin: 01/09/18 09:38 Dose: 1 tablet Polyethylene Glycol (Miralax (For Daily Use) -) 17 gm PO BID [facility] Last Admin: 01/09/18 09:40 Dose: Not Given Sacubitril/Valsartan (Entresto 24 Mg-26 Mg Tablet) 1 tab PO BID [facility] Last Admin: 01/09/18 09:39 Dose: 1 tab Senna (Senna -) 2 tab PO HS [facility] Last Admin: 01/08/18 21:13 Dose: 2 tab Simethicone (Mylicon -) 80 mg PO Q6H PRN PRN Reason: BLOATING Last Admin: 01/08/18 18:08 Dose: 80 mg Sitagliptin Phosphate (Januvia -) 25 mg PO 0700 [facility] Last Admin: 01/09/18 06:17 Dose: 25 mg Thiamine HCl (Vitamin B1 -) 100 mg PO DAILY [facility] Last Admin: 01/09/18 09:38 Dose: 100 mg Vancomycin HCl (Vancomycin (Pre-Docked)) 1,000 mg IVPB TuThSa@1000 [facility] Last Admin: 01/09/18 09:41 Dose: Not Given Warfarin Sodium (Coumadin -) 6 mg PO DAILY@1800 [facility] - Objective Vital Signs: Vital Signs Temperature 98.2 F 01/09/18 10:40 Pulse Rate 65 01/09/18 11:15 Respiratory Rate 18 01/09/18 11:15 Blood Pressure 96/51 L 01/09/18 11:15 O2 Sat by Pulse Oximetry (%) 96 01/09/18 08:20 Constitutional: Yes: No Distress, Calm Cardiovascular: Yes: Regular Rate and Rhythm Respiratory: Yes: Regular, CTA Bilaterally Gastrointestinal: Yes: Normal Bowel Sounds, Soft Musculoskeletal: Yes: WNL Extremities: Yes: Other Neurological: Yes: Alert, Oriented Psychiatric: Yes: Alert, Oriented Labs: CBC, BMP 01/06/18 12:30 01/06/18 12:30 INR, PTT INR 1.46 (0.83-1.09) H 01/09/18 07:30 Assessment/Plan Impression 1. ESRD 2. hx pericardial effusion 3. hx pneumopericardium 4. hypothyroidism 5. a-fib 6. hypotension 7. hx of colon cancer 8. CHF 9. DM 10. hx of PE 11. CAD 12. right great toe gangrene patient with rt toe gangrene plan continue abx continue vanco for 3 more weeks during dialysis continue levaquin for same dose for 2 more weeks
[2018-01-09] MEDS ORDERED: EPOETIN ALFA 10,000 UNIT/1 ML VIAL IVPUSH ONE (12:00)
--- NOTE | 2018-01-09 13:42 | PN ---
Progress Note, Physician History of Present Illness: Pt seen and examined at bedside. He is awake and alert. He denies shortness of breath. He is tolerating HD. - Current Medication List Current Medications: Active Medications Acetaminophen (Tylenol -) 325 mg PO Q8H PRN PRN Reason: PAIN SCALE 6-10 Last Admin: 01/09/18 11:24 Dose: 325 mg Acetaminophen (Ofirmev Injection -) 1,000 mg IVPB Q6H PRN PRN Reason: PAIN Last Admin: 01/05/18 20:59 Dose: 1,000 mg Albumin Human (Albumin Human 25%) 12.5 gm IVPB Q30M PRN PRN Reason: HYPERTENSION Last Admin: 01/08/18 09:30 Dose: 12.5 gm Clopidogrel Bisulfate (Plavix -) 75 mg PO DAILY [facility] Last Admin: 01/09/18 09:38 Dose: 75 mg Fentanyl (Sublimaze Injection -) 25 mcg IVPUSH [id number] PRN PRN Reason: PAIN-PACU ORDER X 4 DOSES ONLY Last Admin: 01/03/18 15:55 Dose: 25 mcg Hydromorphone HCl (Dilaudid Vial -) 8 mg IVPB Q3H PRN PRN Reason: PAIN LEVEL 6-10 Last Admin: 01/09/18 06:31 Dose: 8 mg Sodium Chloride (Normal Saline -) 250 mls @ 3,000 mls/hr IV PRN PRN PRN Reason: Hypotension during Dialysis Stop: 01/08/18 11:57 Latanoprost (Xalatan 0.005% Eye Drops -) 1 drop OD HS [facility] Last Admin: 01/08/18 21:13 Dose: 1 drop Levofloxacin (Levaquin -) 500 mg PO Q2D@0600 [facility] Last Admin: 01/08/18 05:34 Dose: 500 mg Levothyroxine Sodium (Synthroid -) 75 mcg PO 0700 [facility] Last Admin: 01/09/18 06:17 Dose: 75 mcg Melatonin (Melatonin) 10 mg PO HS PRN PRN Reason: INSOMNIA Last Admin: 01/07/18 21:33 Dose: 10 mg Metoprolol Succinate (Toprol Xl -) 12.5 mg PO DAILY [facility] Last Admin: 01/09/18 09:38 Dose: 12.5 mg Metronidazole (Flagyl -) 500 mg PO TID [facility] Last Admin: 01/09/18 06:17 Dose: 500 mg Multi-Ingredient Lotion (Eucerin (Large Jar) -) 1 applic TP BID PRN PRN Reason: DRY SKIN Last Admin: 01/05/18 14:43 Dose: 1 applic Multivit/Ca Carb/B Cmplx/FA/Prenat (Nephro-Fer -) 1 tablet PO DAILY [facility] Last Admin: 01/09/18 09:38 Dose: 1 tablet Polyethylene Glycol (Miralax (For Daily Use) -) 17 gm PO BID [facility] Last Admin: 01/09/18 09:40 Dose: Not Given Sacubitril/Valsartan (Entresto 24 Mg-26 Mg Tablet) 1 tab PO BID [facility] Last Admin: 01/09/18 09:39 Dose: 1 tab Senna (Senna -) 2 tab PO HS [facility] Last Admin: 01/08/18 21:13 Dose: 2 tab Simethicone (Mylicon -) 80 mg PO Q6H PRN PRN Reason: BLOATING Last Admin: 01/08/18 18:08 Dose: 80 mg Sitagliptin Phosphate (Januvia -) 25 mg PO 0700 [facility] Last Admin: 01/09/18 06:17 Dose: 25 mg Thiamine HCl (Vitamin B1 -) 100 mg PO DAILY [facility] Last Admin: 01/09/18 09:38 Dose: 100 mg Vancomycin HCl (Vancomycin (Pre-Docked)) 1,000 mg IVPB TuThSa@1000 [facility] Last Admin: 01/09/18 09:41 Dose: Not Given Warfarin Sodium (Coumadin -) 6 mg PO DAILY@1800 [facility] - Objective Vital Signs: Vital Signs Temperature 98.2 F 01/09/18 10:40 Pulse Rate 74 01/09/18 12:45 Respiratory Rate 18 01/09/18 12:45 Blood Pressure 98/61 01/09/18 12:45 O2 Sat by Pulse Oximetry (%) 96 01/09/18 08:20 Constitutional: Yes: Calm Eyes: Yes: Conjunctiva Clear HENT: Yes: Atraumatic Neck: Yes: Supple Cardiovascular: Yes: S1, S2 Respiratory: Yes: CTA Bilaterally Gastrointestinal: Yes: Soft Genitourinary: Yes: WNL Edema: Yes Edema: LLE: 1+, RLE: 1+ Wound/Incision: Yes: Dressing Dry and Intact Neurological: Yes: Oriented Psychiatric: Yes: Oriented Labs: CBC, BMP 01/06/18 12:30 01/06/18 12:30 INR, PTT INR 1.46 (0.83-1.09) H 01/09/18 07:30 Problem List - Problems (1) Gangrene of toe of right foot Code(s): I96 - GANGRENE, NOT ELSEWHERE CLASSIFIED (2) ESRD (end stage renal disease) Code(s): N18.6 - END STAGE RENAL DISEASE Assessment/Plan Current Medications Generic Name Dose Route Start Last Admin Trade Name Freq PRN Reason Stop Dose Admin Acetaminophen 325 mg 01/03/18 15:40 01/09/18 11:24 Tylenol - PO 325 mg Q8H PRN Administration PAIN SCALE 6-10 Acetaminophen 1,000 mg 01/05/18 13:13 01/05/18 20:59 Ofirmev Injection - IVPB 1,000 mg Q6H PRN Administration PAIN Albumin Human 12.5 gm 01/08/18 09:30 01/08/18 09:30 Albumin Human 25% IVPB 12.5 gm Q30M PRN Administration HYPERTENSION Clopidogrel Bisulfate 75 mg 01/08/18 14:30 01/09/18 09:38 Plavix - PO 75 mg DAILY [facility] Administration Fentanyl 25 mcg 01/03/18 15:38 01/03/18 15:55 Sublimaze Injection - IVPUSH 25 mcg [id number] PRN Administration PAIN-PACU ORDER X 4 DOSES ONLY Hydromorphone HCl 8 mg 01/07/18 14:24 01/09/18 06:31 Dilaudid Vial - IVPB 8 mg Q3H PRN Administration PAIN LEVEL 6-10 Sodium Chloride 250 mls @ 3,000 mls/hr 01/07/18 11:56 Normal Saline - IV 01/08/18 11:57 PRN PRN Hypotension during Dialysis Latanoprost 1 drop 01/03/18 22:00 01/08/18 21:13 Xalatan 0.005% Eye Drops - OD 1 drop HS [facility] Administration Levofloxacin 500 mg 01/06/18 13:45 01/08/18 05:34 Levaquin - PO 500 mg Q2D@0600 [facility] Administration Levothyroxine Sodium 75 mcg 01/04/18 07:00 01/09/18 06:17 Synthroid - PO 75 mcg 0700 [facility] Administration Melatonin 10 mg 01/03/18 22:00 01/07/18 21:33 Melatonin PO 10 mg HS PRN Administration INSOMNIA Metoprolol Succinate 12.5 mg 01/04/18 10:00 01/09/18 09:38 Toprol Xl - PO 12.5 mg DAILY [facility] Administration Metronidazole 500 mg 01/06/18 14:00 01/09/18 06:17 Flagyl - PO 500 mg TID [facility] Administration Multi-Ingredient Lotion 1 applic 01/04/18 12:50 01/05/18 14:43 Eucerin (Large Jar) - TP 1 applic BID PRN Administration DRY SKIN Multivit/Ca Carb/B Cmplx/FA/Prenat 1 tablet 01/04/18 10:00 01/09/18 09:38 Nephro-Fer - PO 1 tablet DAILY [facility] Administration Polyethylene Glycol 17 gm 01/03/18 22:00 01/09/18 09:40 Miralax (For Daily Use) - PO Not Given BID [facility] Sacubitril/Valsartan 1 tab 01/03/18 22:00 01/09/18 09:39 Entresto 24 Mg-26 Mg Tablet PO 1 tab BID [facility] Administration Senna 2 tab 01/03/18 22:00 01/08/18 21:13 Senna - PO 2 tab HS [facility] Administration Simethicone 80 mg 01/08/18 18:02 01/08/18 18:08 Mylicon - PO 80 mg Q6H PRN Administration BLOATING Sitagliptin Phosphate 25 mg 01/04/18 07:00 01/09/18 06:17 Januvia - PO 25 mg 0700 [facility] Administration Thiamine HCl 100 mg 01/04/18 10:00 01/09/18 09:38 Vitamin B1 - PO 100 mg DAILY [facility] Administration Vancomycin HCl 1,000 mg 01/04/18 10:00 01/09/18 09:41 Vancomycin (Pre-Docked) IVPB Not Given TuThSa@1000 [facility] Warfarin Sodium 6 mg 01/09/18 18:00 Coumadin - PO DAILY@1800 [facility] Impression 1. ESRD 2. hx pericardial effusion 3. hx pneumopericardium 4. hypothyroidism 5. a-fib 6. hypotension 7. hx of colon cancer 8. CHF 9. DM 10. hx of PE 11. CAD 12. right great toe gangrene Plan - HD today - ID follow up to clarify duration of abx - vascular input appreciated - next DH on , he does have HD set up as outpt - renal diet - discussed fluid intake with pt - will follow
[2018-01-09 15:47] VITALS: BP 97/55; PULSE 65; TEMP 97.7
[2018-01-09] MEDS: WARFARIN NA 3 MG TABLET PO SCH ×2 (16:42→17:01)
== END 2018-01-09 17:58 | DRG 239 ==
LOC: JER 11:29 → JERBED 14:42 → J6S 20:23
PROVIDERS: ADMIT Family Medicine; ATTEND Family Medicine
PROC: 5A1D70Z Performance of Urinary Filtration, Intermittent, Less than 6 Hours Per Day (ICD-10-PCS; 2017-12-28)
PROC: 5A1D70Z Performance of Urinary Filtration, Intermittent, Less than 6 Hours Per Day (ICD-10-PCS; 2017-12-29)
PROC: 5A1D70Z Performance of Urinary Filtration, Intermittent, Less than 6 Hours Per Day (ICD-10-PCS; 2017-12-30)
PROC: 5A1D70Z Performance of Urinary Filtration, Intermittent, Less than 6 Hours Per Day (ICD-10-PCS; 2018-01-01)
PROC: 5A1D70Z Performance of Urinary Filtration, Intermittent, Less than 6 Hours Per Day (ICD-10-PCS; 2018-01-02)
PROC: 0Y6M0Z0 Detachment at Right Foot, Complete, Open Approach (ICD-10-PCS; principal; 2018-01-03 12:00)
PROC: 5A1D70Z Performance of Urinary Filtration, Intermittent, Less than 6 Hours Per Day (ICD-10-PCS; 2018-01-04)
PROC: 5A1D70Z Performance of Urinary Filtration, Intermittent, Less than 6 Hours Per Day (ICD-10-PCS; 2018-01-06)
PROC: 5A1D70Z Performance of Urinary Filtration, Intermittent, Less than 6 Hours Per Day (ICD-10-PCS; 2018-01-08)
DX: E11.52 Type 2 diabetes mellitus with diabetic peripheral angiopathy with gangrene (principal); N18.6 End stage renal disease; L97.518 Non-pressure chronic ulcer of other part of right foot with other specified severity; I96 Gangrene, not elsewhere classified; M86.9 Osteomyelitis, unspecified; E87.1 Hypo-osmolality and hyponatremia; I31.9 Disease of pericardium, unspecified; I13.2 Hypertensive heart and chronic kidney disease with heart failure and with stage 5 chronic kidney disease, or end stage renal disease; E11.621 Type 2 diabetes mellitus with foot ulcer; E11.51 Type 2 diabetes mellitus with diabetic peripheral angiopathy without gangrene; E11.22 Type 2 diabetes mellitus with diabetic chronic kidney disease; I25.5 Ischemic cardiomyopathy; E03.9 Hypothyroidism, unspecified; I48.2 Chronic atrial fibrillation; I48.91 Unspecified atrial fibrillation; I25.10 Atherosclerotic heart disease of native coronary artery without angina pectoris; D63.8 Anemia in other chronic diseases classified elsewhere; I25.2 Old myocardial infarction; I08.3 Combined rheumatic disorders of mitral, aortic and tricuspid valves; I50.9 Heart failure, unspecified; I95.89 Other hypotension; E11.42 Type 2 diabetes mellitus with diabetic polyneuropathy; J44.9 Chronic obstructive pulmonary disease, unspecified; Z86.711 Personal history of pulmonary embolism; Z87.891 Personal history of nicotine dependence; Z79.01 Long term (current) use of anticoagulants; Z89.421 Acquired absence of other right toe(s); Z98.62 Peripheral vascular angioplasty status; Z79.4 Long term (current) use of insulin; Z85.038 Personal history of other malignant neoplasm of large intestine; Z99.2 Dependence on renal dialysis; Z95.810 Presence of automatic (implantable) cardiac defibrillator
CPT/HCPCS: 36415; 71045-TC-FY; 73590-TC-RT-FY; 73630-TC-RT-FY; 80048; 80053; 80061; 82272; 82803; 82962; 83036; 83605; 83721; 84100; 84443; 85025; 85027; 85610; 85651; 85730; 86140; 86704; 86706; 86708; 86803; 86850; 86900; 86901; 87040; 87070; 87186; 87205; 87340; 88307-TC; 88311-TC; 93005; 93010; 93306-TC; 93923; 94760; 97116-GP; 97162-GP; 99284-25; J0131; J0885; J1644; P9047

== ENCOUNTER 2018-01-10 02:42 | Emergency (ER) | payer BC, OTHER ==
[2018-01-10 03:23] VITALS: TEMP 98.4; BMI 29.3
--- NOTE | 2018-01-10 03:35 | PDOC ---
History of Present Illness - General Chief Complaint: Injury Stated Complaint: FALL Time Seen by Provider: 01/10/18 03:34 - History of Present Illness Initial Comments: 01/10/18 04:06 The patient is a 72 year old male with a history of HTN, HLD, DM, Afib on coumadin, Colon CA, CHF, ESRD on dialysis who presents for evaluation following a fall. The patient reports that he is at [facility] after having his right foot amputated. He was attempting to get out of bed when he lost his balance, fell forward and hit his head on the floor. He denies LOC or other injuries and notes a "lump" to his forehead. He otherwise denies fevers, chills, neck pain, SOB, chest pain, nausea, vomiting, abdominal pain, numbness, tingling, weakness, or changes with urination or bowel movements or other injuries. Past History - Past Medical History Allergies/Adverse Reactions: Allergies Allergy/AdvReac Type Severity Reaction Status Date / Time No Known Drug Allergies Allergy Verified 01/10/18 03:22 Home Medications: Ambulatory Orders Clopidogrel Bisulfate [Plavix -] 75 mg PO DAILY 09/11/17 Glucosamine Sulfate Dipot Chlr [Glucosamine] 500 mg PO DAILY 09/11/17 Levothyroxine [Synthroid -] 75 mcg PO DAILY 09/11/17 Melatonin 5 mg PO HS PRN 09/11/17 Oxycodone HCl/Acetaminophen [Percocet 5-325 mg Tablet] 1 tab PO Q8H PRN Sacubitril/Valsartan [Entresto 24 mg-26 mg Tablet] 1 each PO BID 09/11/17 Sennosides [Senna -] 2 tab PO HS 09/11/17 Thiamine HCl [B-1] 100 mg PO DAILY 09/11/17 Acetaminophen [Tylenol .Regular Strength -] 325 mg PO Q8H PRN tablet 09/18/17 Metoprolol Succinate [Toprol XL -] 12.5 mg PO DAILY tab.sr.24h 09/18/17 Sitagliptin Phosphate [Januvia -] 25 mg PO 0700 tab 09/18/17 Warfarin Na [Coumadin -] 6 mg PO DAILY@1800 tablet 09/18/17 Insulin Aspart [Novolog] 100 unit SQ BID 10/04/17 Latanoprost 0.005% Eye Drops [Xalatan 0.005% Eye Drops -] 1 drop HS 11/29/17 Vitamin B Comp W-C [Nephro-Fer -] 0.8 mg PO DAILY 11/29/17 Polyethylene Glycol 3350 [Miralax 119 gm Btl -] 17 gm PO BID 12/26/17 Clopidogrel Bisulfate [Plavix] 75 mg PO DAILY 30 Days #30 tablet 01/08/18 Hydromorphone HCl [Dilaudid] 8 mg PO 5XD PRN 7 Days #35 tablet MDD 5 tabs Melatonin 10 mg PO HS PRN tab 01/08/18 Mineral Oil/Petrolat,Wht/Water [Eucerin (Large Jar) -] 1 applic TP BID PRN jar 01/08/18 Vancomycin 1 Gram (Pre-Docked) [Vancomycin (Pre-Docked)] 1,000 mg IVPB TuThSa@ 1000 bag 01/08/18 Warfarin Sodium [Coumadin] 6 mg PO DAILY 30 Days #30 tablet 01/08/18 metroNIDAZOLE [Flagyl -] 500 mg PO TID tablet 01/08/18 Anemia: No Asthma: Yes Cancer: Yes (COLON CA) Cardiac Disorders: Yes (Afib- on coumadin) COPD: No CHF: Yes Diabetes: Yes Dialysis: Yes () HTN: Yes Hypercholesterolemia: Yes Thyroid Disease: Yes - Surgical History Abdominal Surgery: Yes (SURGERY FOR COLON CA RX WITH CHEMO) Cardiac Surgery: Yes (Pacemaker) - Immunization History Immunization Up to Date: Yes - Suicide/Smoking/Psychosocial Hx Smoking History: Never smoked Have you smoked in the past 12 months: No If you are a former smoker, when did you quit?: 1981 Information on smoking cessation initiated: No Hx Alcohol Use: No Drug/Substance Use Hx: No Substance Use Type: None Hx Substance Use Treatment: No Review of Systems - Review of Systems Comments:: 01/10/18 04:25 Constitutional: No fevers, chills, fatigue, malaise HEENT: Head Trauma. No Rhinorrhea, nasal congestion, visual changes Cardiovascular: No chest pain, syncope, palpitations, lightheadedness Respiratory: No Cough, SOB, Hemoptysis, Gastrointestinal: No Abdominal pain, Nausea, Vomiting, Constipation, Diarrhea, Melena Genitourinary: No Dysuria, Frequency, Urgency, Hesitancy, Hematuria, Flank pain Musculoskeletal: No Myalgia, arthralgia Skin: No rashes, itching, bruising, pallor Neurologic: No Headache, Dizziness, Numbness, Weakness, or Tingling Psychiatric: No Hallucinations. No SI or HI *Physical Exam - Vital Signs Last Vital Signs Temp Pulse Resp BP Pulse Ox 98.4 F 70 16 116/68 96 01/10/18 02:42 01/10/18 02:42 01/10/18 02:42 01/10/18 02:42 01/10/18 02:42 - Physical Exam Comments: 01/10/18 04:25 General Appearance: Nourished. No Apparent Distress HEENT: EOMI, TERE. Hematoma noted just above the left eyebrow. No Pharyngeal Erythema, Tonsillar Exudate, Tonsillar Erythema Neck: No Cervical Lymphadenopathy Respiratory/Chest: Lungs Clear, Normal Breath Sounds. No Crackles, Rales, Rhonchi, Wheezing Cardiovascular: Regular Rhythm, Regular Rate. No Murmur, Gallops, Rubs Gastrointestinal/Abdominal: Normal Bowel Sounds, Soft. No Guarding, Rebound, Tenderness Musculoskeletal: No CVA Tenderness Extremity: Normal Capillary Refill Integumentary: Normal Color, Dry, Warm Neurologic: manager organizational II-XII NML intact, Fully Oriented, Alert, Normal Mood/Affect, Normal Response, Motor Strength 5/5. Moderate Sedation - Procedure Monitoring Vital Signs: Procedure Monitoring Vital Signs Temperature 98.4 F 01/10/18 02:42 Pulse Rate 70 01/10/18 02:42 Respiratory Rate 16 01/10/18 02:42 Blood Pressure 116/68 01/10/18 02:42 O2 Sat by Pulse Oximetry (%) 96 01/10/18 02:42 Medical Decision Making - Medical Decision Making 01/10/18 04:27 The patient is a 72 year old male with a history of HTN, HLD, DM, Afib on coumadin, Colon CA, CHF, ESRD on dialysis who presents for evaluation following a fall. Differential includes but is not limited to: Contusion, Fracture, Intracranial process. Given the patient's history and physical exam, we will obtain a head and neck CT to evaluate further. We will continue to monitor and reassess while here in the ED. 01/10/18 07:[address] is unremarkable as preliminarily read by our traffic control operator radiologist. The patient continues to appear clinically well on exam. We are comfortable discharging the patient home with primary care provider follow up. We discussed the results, plan, and return precautions with the patient who voiced understanding and is agreeable with the plan. *DC/Admit/Observation/Transfer Diagnosis at time of Disposition: Fall Qualifiers: Encounter type: initial encounter Qualified Code(s): W19.XXXA - Unspecified fall, initial encounter - Discharge Dispostion Disposition: HOME Condition at time of disposition: Stable Decision to Admit order: No - Referrals Referrals: Shreyas Lyle MD [Primary Care Provider] - Olvin Cope MD [Staff Physician] - - Patient Instructions Printed Discharge Instructions: DI for Post-traumatic Headache, How to Prevent Falls Additional Instructions: Please return to the ER if you experience concerning or worsening symptoms including worsening difficulty breathing, weakness, or chest pain, vomiting, headache. Your CT results were normal here in the ER. Please call to schedule a follow up appointment with your primary care provider within 2-3 days to discuss your ER visit and further management of your symptoms. - Post Discharge Activity
--- NOTE | 2018-01-10 06:25 | PDOC ---
Attending Attestation - Resident Resident Name: Jeffy Carey - ED Attending Attestation I have performed the following: I have examined & evaluated the patient, The case was reviewed & discussed with the resident, I agree w/resident's findings & plan, Exceptions are as noted - HPI HPI: 01/10/18 06:22 72 yo M HTN, HLD, DM, Afib on coumadin, Colon CA, CHF, ESRD here from nursing facility s/p fall. recent amputation of foot. no f/c. states was getting out of bed, fell forward on his head. no loc. c/o hematoma to forehead. did have breif epistaxis at event. no cp no sob. no palpitations. was unwitnessed. - Physicial Exam PE: 01/10/18 06:24 awake alert frontal forehead hematoma. 1 in x 1 in. no bony step off or tenderness. dried blood in nares. no jaw malocclusion. no mildline spinal tenderenss. GCXs 15, right foot s/p amputation. dressing intact. otherwise skin warm and dry. - Medical Decision Making 01/10/18 06:24 differential head trauma ich, facial fracture. paln ekg ct head and facial bones. ct pine. ct negative. will d c to nursing facility. 01/10/18 06:25 Heart Score/ECG Review #1 General ECG Interpretation: Normal Intervals, No acute ischemic changes Compared to previous ECG there are: Other (paced rhtym. twi I, AVLF, V1 - V2)
--- NOTE | 2018-01-10 11:43 | EKG ---
Test Reason : Blood Pressure : / mmHG Vent. Rate : 067 BPM Atrial Rate : 063 BPM P-R Int : 000 ms QRS Dur : 154 ms QT Int : 498 ms P-R-T Axes : 000 -54 099 degrees QTc Int : 526 ms Ventricular-paced rhythm ABNORMAL ECG WHEN COMPARED WITH ECG OF 26-DEC-2017 13:59, VENT. RATE HAS INCREASED BY 2 BPM Confirmed by CARLOTTA WARD, LOPEZ ([id number]) on 01/10/2018 11:42:40 AM Referred By: Confirmed By:LOPEZ LAGUERRE MD
[2018-01-10 11:50] VITALS: BP 119/72; PULSE 76
== END 2018-01-10 09:45 | disposition home or self-care (01) ==
LOC: JER 02:42
DX: S09.90XA Unspecified injury of head, initial encounter (principal); W06.XXXA Fall from bed, initial encounter; Y93.89 Activity, other specified; Y92.092 Bedroom in other non-institutional residence as the place of occurrence of the external cause; I10 Essential (primary) hypertension; E78.5 Hyperlipidemia, unspecified; E11.9 Type 2 diabetes mellitus without complications; I48.91 Unspecified atrial fibrillation; Z85.038 Personal history of other malignant neoplasm of large intestine; I50.9 Heart failure, unspecified; Z87.891 Personal history of nicotine dependence; Z79.01 Long term (current) use of anticoagulants
CPT/HCPCS: 70450-TC; 72125-TC; 93005; 93010; 99282-25

== ENCOUNTER 2018-01-16 14:18 | Inpatient (IN) | payer BC, OTHER ==
--- NOTE | 2018-01-16 15:26 | PDOC ---
History of Present Illness - General Chief Complaint: Wound Stated Complaint: SURGICAL CLEARANCE - History of Present Illness Initial Comments: The patient is a 72M w/ a history of T2DM (iHG T,Th,Sa), CHF, colon ca s/p resection presenting w/ RLE swelling/edema for 1wk. S/p R TMA. Reports worsening RLE necrosis. Denies redness, purulent discharge, or increasing pain. Denies fevers/chills, chest pain, BUSTILLOS, vision changes, abdominal pain, N/V/C/D. Dr. Cope to do R BKA on this admission No tobacco use, quit 35y ago 01/16/18 15:28 Past History - Past Medical History Allergies/Adverse Reactions: Allergies Allergy/AdvReac Type Severity Reaction Status Date / Time No Known Drug Allergies Allergy Verified 01/16/18 14:24 Home Medications: Ambulatory Orders Clopidogrel Bisulfate [Plavix -] 75 mg PO DAILY 09/11/17 Glucosamine Sulfate Dipot Chlr [Glucosamine] 500 mg PO DAILY 09/11/17 Levothyroxine [Synthroid -] 75 mcg PO DAILY 09/11/17 Melatonin 5 mg PO HS PRN 09/11/17 Oxycodone HCl/Acetaminophen [Percocet 5-325 mg Tablet] 1 tab PO Q8H PRN Sacubitril/Valsartan [Entresto 24 mg-26 mg Tablet] 1 each PO BID 09/11/17 Sennosides [Senna -] 2 tab PO HS 09/11/17 Thiamine HCl [B-1] 100 mg PO DAILY 09/11/17 Acetaminophen [Tylenol .Regular Strength -] 325 mg PO Q8H PRN tablet 09/18/17 Metoprolol Succinate [Toprol XL -] 12.5 mg PO DAILY tab.sr.24h 09/18/17 Sitagliptin Phosphate [Januvia -] 25 mg PO 0700 tab 09/18/17 Warfarin Na [Coumadin -] 6 mg PO DAILY@1800 tablet 09/18/17 Insulin Aspart [Novolog] 100 unit SQ BID 10/04/17 Latanoprost 0.005% Eye Drops [Xalatan 0.005% Eye Drops -] 1 drop HS 11/29/17 Vitamin B Comp W-C [Nephro-Fer -] 0.8 mg PO DAILY 11/29/17 Polyethylene Glycol 3350 [Miralax 119 gm Btl -] 17 gm PO BID 12/26/17 Clopidogrel Bisulfate [Plavix] 75 mg PO DAILY 30 Days #30 tablet 01/08/18 Hydromorphone HCl [Dilaudid] 8 mg PO 5XD PRN 7 Days #35 tablet MDD 5 tabs Melatonin 10 mg PO HS PRN tab 01/08/18 Mineral Oil/Petrolat,Wht/Water [Eucerin (Large Jar) -] 1 applic TP BID PRN jar 01/08/18 Vancomycin 1 Gram (Pre-Docked) [Vancomycin (Pre-Docked)] 1,000 mg IVPB TuThSa@ 1000 bag 01/08/18 Warfarin Sodium [Coumadin] 6 mg PO DAILY 30 Days #30 tablet 01/08/18 metroNIDAZOLE [Flagyl -] 500 mg PO TID tablet 01/08/18 Anemia: No Asthma: Yes Cancer: Yes (COLON CA) Cardiac Disorders: Yes (Afib- on coumadin) COPD: No CHF: Yes Diabetes: Yes Dialysis: Yes () HTN: Yes Hypercholesterolemia: Yes Thyroid Disease: Yes - Surgical History Abdominal Surgery: Yes (SURGERY FOR COLON CA RX WITH CHEMO) Cardiac Surgery: Yes (Pacemaker) - Immunization History Immunization Up to Date: Yes - Suicide/Smoking/Psychosocial Hx Smoking History: Never smoked Have you smoked in the past 12 months: No If you are a former smoker, when did you quit?: 1981 Hx Alcohol Use: No Drug/Substance Use Hx: No Substance Use Type: None Hx Substance Use Treatment: No Review of Systems - Review of Systems Able to Perform ROS?: Yes Comments:: GENERAL/CONSTITUTIONAL: No fever or chills. No weakness HEAD, EYES, EARS, NOSE AND THROAT: No change in vision. No ear pain or discharge. No sore throat CARDIOVASCULAR: No chest pain RESPIRATORY: Endorses SOB at baseline; Denies cough, hemoptysis GASTROINTESTINAL: No nausea, vomiting, diarrhea or constipation GENITOURINARY: No dysuria, frequency, or change in urination MUSCULOSKELETAL: s/p R TMA SKIN: No rash NEUROLOGIC: No headache, vertigo, loss of consciousness, or change in strength/ sensation ENDOCRINE: No increased thirst. No abnormal weight change HEMATOLOGIC/LYMPHATIC: No anemia, easy bleeding, or history of blood clots ALLERGIC/IMMUNOLOGIC: No hives or skin allergy 01/16/18 15:23 Is the patient limited Swiss proficient: No *Physical Exam - Vital Signs Last Vital Signs Temp Pulse Resp BP Pulse Ox 98 F 62 18 87/52 L 100 01/16/18 14:24 01/16/18 14:24 01/16/18 14:24 01/16/18 14:24 01/16/18 14:24 - Physical Exam Comments: GENERAL: Awake, alert, and fully oriented, in no acute distress HEAD: No signs of trauma, normocephalic, atraumatic EYES: PERRLA, EOMI, sclera anicteric, conjunctiva clear ENT: Hearing grossly normal, nares patent, oropharynx clear without exudates. Moist mucosa LUNGS: No distress, speaks full sentences, clear to auscultation bilaterally HEART: Regular rate and rhythm, normal S1 and S2, no murmurs appreciated, peripheral pulses normal and equal bilaterally ABDOMEN: Soft, nontender, normoactive bowel sounds. No guarding, no rebound EXTREMITIES : RLE TMA; wound open with small area of dry gangrene. No fluctuance. No discharge from wound NEUROLOGICAL: Cranial nerves II through XII grossly intact. Normal speech, normal gait, no focal sensorimotor deficits 01/16/18 15:24 Moderate Sedation - Procedure Monitoring Vital Signs: Procedure Monitoring Vital Signs Temperature 98 F 01/16/18 14:24 Pulse Rate 62 01/16/18 14:24 Respiratory Rate 18 01/16/18 14:24 Blood Pressure 87/52 L 01/16/18 14:24 O2 Sat by Pulse Oximetry (%) 100 01/16/18 14:24 ED Treatment Course - LABORATORY CBC & Chemistry Diagram: 01/16/18 17:25 01/16/18 17:25 Medical Decision Making - Medical Decision Making The patient is a 72M w/ a history of ESRD (T,Th,), T2DM, HTN, R TMA who presents for planned revision/R BKA. CMP, CBC, cardiac enzymes, coags, UA, ECG, CXR Patient is mildly hyponatremic and hypochloremic in ED, will give 1L NS to initiate resuscitation INR 2.09 Cr 3.4 at/near baseline 01/16/18 17:45 No leukocytosis lytes near baseline LFTs wnl Plan for admission for R BKA Surgery and Nephrology consulted Percocet 10mg PO for pain Admit to dialysis floor 01/16/18 20:42 *DC/Admit/Observation/Transfer Diagnosis at time of Disposition: Gangrene of foot - Discharge Dispostion Condition at time of disposition: Good Decision to Admit order: Yes - Referrals - Patient Instructions - Post Discharge Activity
--- NOTE | 2018-01-16 16:28 | PDOC ---
Attending Attestation - Resident Resident Name: FannyGeorge hartley - ED Attending Attestation I have performed the following: I have examined & evaluated the patient, The case was reviewed & discussed with the resident, I agree w/resident's findings & plan - HPI HPI: 01/16/18 16:19 72-year-old male with multiple medical problems including peripheral vascular disease status post right metatarsal amputation presents now with progressive gangrene requiring further amputation, sent by Dr. Cope. - Physicial Exam PE: 01/16/18 16:20 Afebrile, blood pressure 90 systolic, mentating well and appearing baseline Heart regular Abdomen benign R foot dressing in place, peripheral edema - Medical Decision Making 01/16/18 16:28 72y/o M progressive R foot gangrene, here for amputation. labs sent seen by Dr. Yepez, who knows the patient well admit, Prisca aware, likely OR tomorrow Heart Score/ECG Review #1 ECG reviewed & interpreted by me at: 16:17 Compared to previous ECG there are: No significant change 01/16/18 16:29 v-paced at 65. no change c/w 01/10, no secondary signs of acute ischemic change
[2018-01-16 17:45] LABS: HEMATOCRIT 32.7 % (35.4-49); HEMOGLOBIN 10.8 GM/dL (11.7-16.9); MCH 30.7 pg (25.7-33.7); MCHC 33.1 g/dl (32.0-35.9); MEAN CELL VOLUME 92.9 fl (80-96); MEAN PLT VOLUME 9.4 fl (7.5-11.1); RBC 3.52 M/mm3 (4.00-5.60); RDW 23.6 % (11.9-15.9); WHITE BLOOD COUNT 4.2 K/mm3 (4.0-10.0)
[2018-01-16 18:06] LABS: INR 2.09 (0.83-1.09); PROTHROMBIN TIME (PATIENT) 24.9 SEC (9.7-13.0)
[2018-01-16 18:08] LABS: ACTIVATED PTT 41.7 SECONDS (25.2-36.5)
[2018-01-16 18:17] LABS: ALBUMIN 3.1 g/dl (3.4-5.0); ALK PHOS 159 U/L (45-117); ANION GAP 11 MMOL/L (8-16); BILIRUBIN,TOTAL 1.1 mg/dL (0.2-1); BLOOD UREA NITROGEN 11 mg/dL (7-18); CALCIUM 8.7 mg/dL (8.5-10.1); CHLORIDE 91 mmol/L (98-107); CO2 27 mmol/L (21-32); CREATININE 3.4 mg/dL (0.55-1.3); GLUCOSE,RANDOM 93 mg/dL (74-106); POTASSIUM 3.2 mmol/L (3.5-5.1); SGOT/AST 30 U/L (15-37); SGPT/ALT 13 U/L (13-61); SODIUM 129 mmol/L (136-145); TOT PROT 8.2 g/dl (6.4-8.2)
[2018-01-16 18:36] LABS: PLATELET COUNT 270 K/MM3 (134-434)
[2018-01-16] MEDS ORDERED: SODIUM CHLORIDE 0.9% 500 ML INFUS.BAG IV ONE (18:53)
[2018-01-16] MEDS ORDERED: MELATONIN 5 MG TABLETS PO PRN ×2 (22:22)
[2018-01-16] MEDS ORDERED: HYDROMORPHONE HCL 8 MG PO PRN (22:22)
[2018-01-16] MEDS ORDERED: ACETAMINOPHEN 325 MG TABLET (FP) PO PRN (22:22)
--- NOTE | 2018-01-16 23:00 | HP ---
Admitting History and Physical - Admission History of Present Illness: The patient is a 72M w/ a history of T2DM (iHG T,,), CHF, colon ca s/p resection presenting w/ RLE swelling/edema for 1wk. S/p R TMA. Reports worsening RLE necrosis. Denies redness, purulent discharge, or increasing pain. Denies fevers/chills, chest pain, BUSTILLOS, vision changes, abdominal pain, N/V/C/D. Dr. Cope to do R BKA on this admission No tobacco use, quit 35y ago 01/16/18 15:28 72yo M with h/o CKD5 on HD (T/T/S), hypothyroidism, Afib, Cardiomyopathy with ICD implantation, DM, pericardial effusion, and RLE gangrene s/p TMA on -- was transferred post hosp to [facility] for STR / wound care. He presents today with open surgical wound - non healing, suture line open with visible gangrenous tissue. . Pt denies any shortness of breath, lightheadedness, chest pain, palpitations, abdominal pain, diarrhea/constipation. Patient with failed TMA will require BKA, Dr Cope to schedule PMHx: #s/p right TMA 01/03/18 amputation great toe #Previous RLE gangrene of toes 2-5 s/p amputation #osteomyelitis - #hyponatremia ( Na 129) #PVD #CKD5 on chronic HD (T/T/S) #DM on insulin / # a fib -- a/c on coumadin #CAD #Cardiomyopathy s/p ICD #hypothyroid #HF -- echo ?? -- last echo reviewed 15-20% EF #anemia of chronic disease # hx of pericardial effusion -moderate ? 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: Peripheral Neuropathy Cardiovascular: Yes: AFIB, CAD, CHF, Hyperlipdemia Pulmonary: Yes: COPD, Pulmonary Embolus Gastrointestinal: Yes: Cancer (COLON), Other (PATIENT STATES HE WAS RESECTED AND RECEIVED CHEMOTX AND RT AT [facility]) Renal/: Yes: Renal Failure, Hemodialysis Heme/Onc: Yes: Anemia, Cancer (colon -- s/p resection) Musculoskeletal: Yes: Other (RIGHT ANKLE/FOOT PAIN 11/22 WITH RIGHT LATERAL METATARSAL ULCER W DRAINAGE) Endocrine: Yes: Diabetes Mellitus - Past Surgical History Past Surgical History: Yes: AICD, Amputation, AV Fistula/Graft, Colectomy - Smoking History Smoking history: Former smoker Have you smoked in the past 12 months: No If you are a former smoker, when did you quit?: 1981 - Alcohol/Substance Use Hx Alcohol Use: No History of Substance Use: reports: None - Social History ADL: Support Services History of Recent Travel: No Home Medications - Allergies Allergies/Adverse Reactions: Allergies Allergy/AdvReac Type Severity Reaction Status Date / Time No Known Drug Allergies Allergy Verified 01/16/18 14:24 - Home Medications Home Medications: Ambulatory Orders Clopidogrel Bisulfate [Plavix -] 75 mg PO DAILY 09/11/17 Glucosamine Sulfate Dipot Chlr [Glucosamine] 500 mg PO DAILY 09/11/17 Levothyroxine [Synthroid -] 75 mcg PO DAILY 09/11/17 Melatonin 5 mg PO HS PRN 09/11/17 Oxycodone HCl/Acetaminophen [Percocet 5-325 mg Tablet] 1 tab PO Q8H PRN Sacubitril/Valsartan [Entresto 24 mg-26 mg Tablet] 1 each PO BID 09/11/17 Sennosides [Senna -] 2 tab PO HS 09/11/17 Thiamine HCl [B-1] 100 mg PO DAILY 09/11/17 Acetaminophen [Tylenol .Regular Strength -] 325 mg PO Q8H PRN tablet 09/18/17 Metoprolol Succinate [Toprol XL -] 12.5 mg PO DAILY tab.sr.24h 09/18/17 Sitagliptin Phosphate [Januvia -] 25 mg PO 0700 tab 09/18/17 Warfarin Na [Coumadin -] 6 mg PO DAILY@1800 tablet 09/18/17 Insulin Aspart [Novolog] 100 unit SQ BID 10/04/17 Latanoprost 0.005% Eye Drops [Xalatan 0.005% Eye Drops -] 1 drop HS 11/29/17 Vitamin B Comp W-C [Nephro-Fer -] 0.8 mg PO DAILY 11/29/17 Polyethylene Glycol 3350 [Miralax 119 gm Btl -] 17 gm PO BID 12/26/17 Clopidogrel Bisulfate [Plavix] 75 mg PO DAILY 30 Days #30 tablet 01/08/18 Hydromorphone HCl [Dilaudid] 8 mg PO 5XD PRN 7 Days #35 tablet MDD 5 tabs Melatonin 10 mg PO HS PRN tab 01/08/18 Mineral Oil/Petrolat,Wht/Water [Eucerin (Large Jar) -] 1 applic TP BID PRN jar 01/08/18 Vancomycin 1 Gram (Pre-Docked) [Vancomycin (Pre-Docked)] 1,000 mg IVPB TuThSa@ 1000 bag 01/08/18 Warfarin Sodium [Coumadin] 6 mg PO DAILY 30 Days #30 tablet 01/08/18 metroNIDAZOLE [Flagyl -] 500 mg PO TID tablet 01/08/18 Review of Systems - Review of Systems Constitutional: denies: Chills, Fever Eyes: reports: No Symptoms HENT: reports: No Symptoms Neck: reports: No Symptoms Cardiovascular: reports: No Symptoms. denies: Chest Pain, Shortness of Breath Respiratory: reports: No Symptoms Gastrointestinal: reports: No Symptoms Genitourinary: reports: No Symptoms Breasts: reports: No Symptoms Reported Integumentary: reports: Wound (open / gangrene on right TMA), Other Neurological: reports: No Symptoms Endocrine: reports: No Symptoms Hematology/Lymphatic: reports: No Symptoms Psychiatric: reports: No Symptoms Physical Examination Vital Signs: Vital Signs Temperature 97.9 F 01/16/18 20:19 Pulse Rate 65 01/16/18 20:19 Respiratory Rate 22 H 01/16/18 20:19 Blood Pressure 92/52 L 01/16/18 20:19 O2 Sat by Pulse Oximetry (%) 98 01/16/18 20:19 Labs: CBC, BMP 01/16/18 17:25 01/16/18 17:25 Problem List - Problems (1) Gangrene of foot Code(s): I96 - GANGRENE, NOT ELSEWHERE CLASSIFIED (2) Open wound of foot Code(s): S91.309A - UNSPECIFIED OPEN WOUND, UNSPECIFIED FOOT, INITIAL ENCOUNTER Qualifiers: Encounter type: subsequent encounter Laterality: right Qualified Code(s) : S91.301D - Unspecified open wound, right foot, subsequent encounter (3) Anemia Code(s): D64.9 - ANEMIA, UNSPECIFIED Qualifiers: Anemia type: due to chronic kidney disease (4) Atrial fibrillation Code(s): I48.91 - UNSPECIFIED ATRIAL FIBRILLATION Qualifiers: Atrial fibrillation type: permanent Qualified Code(s): I48.2 - Chronic atrial fibrillation (5) Cardiomyopathy Code(s): I42.9 - CARDIOMYOPATHY, UNSPECIFIED Qualifiers: Cardiomyopathy type: unspecified Qualified Code(s): I42.9 - Cardiomyopathy , unspecified (6) Chronic kidney disease (CKD), stage V Code(s): N18.5 - CHRONIC KIDNEY DISEASE, STAGE 5 (7) Chronic kidney disease on chronic dialysis Code(s): N18.6 - END STAGE RENAL DISEASE; Z99.2 - DEPENDENCE ON RENAL DIALYSIS (8) Diabetes mellitus Code(s): E11.9 - TYPE 2 DIABETES MELLITUS WITHOUT COMPLICATIONS Qualifiers: Diabetes mellitus type: type 2 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: with [facility] use Diabetes mellitus complication detail: with peripheral angiopathy with gangrene (9) HTN (hypertension) Code(s): I10 - ESSENTIAL (PRIMARY) HYPERTENSION Qualifiers: Hypertension type: essential hypertension Qualified Code(s): I10 - Essential (primary) hypertension (10) Hypotension Code(s): I95.9 - HYPOTENSION, UNSPECIFIED Qualifiers: Hypotension type: other hypotension type Qualified Code(s): I95.89 - Other hypotension (11) Hypothyroid Code(s): E03.9 - HYPOTHYROIDISM, UNSPECIFIED Qualifiers: Hypothyroidism type: unspecified Qualified Code(s): E03.9 - Hypothyroidism , unspecified (12) ICD (implantable cardioverter-defibrillator) in place Code(s): Z95.810 - PRESENCE OF AUTOMATIC (IMPLANTABLE) CARDIAC DEFIBRILLATOR (13) Osteomyelitis Code(s): M86.9 - OSTEOMYELITIS, UNSPECIFIED Qualifiers: Osteomyelitis type: other Osteomyelitis location: foot Laterality: right Qualified Code(s): M86.8X7 - Other osteomyelitis, ankle and foot (14) Pericardial effusion Code(s): I31.3 - PERICARDIAL EFFUSION (NONINFLAMMATORY) (15) Status post peripheral artery angioplasty Code(s): Z98.62 - PERIPHERAL VASCULAR ANGIOPLASTY STATUS (16) Status post transmetatarsal amputation of right foot Code(s): Z89.431 - ACQUIRED ABSENCE OF RIGHT FOOT
[2018-01-16] MEDS: POLYETHYLENE GLYCOL 3350 119 GM BTL PO SCH (23:35)
[2018-01-16] MEDS: SACUBITRIL/VALSARTAN 24 MG-26 MG TABLET PO SCH (23:37)
[2018-01-17] MEDS: LEVOTHYROXINE NA 75 MCG TABLET (FP) PO SCH (06:30)
[2018-01-17] MEDS ORDERED: sitaGLIPtin PHOSPHATE 25 MG TABLET (FP) PO SCH (07:00)
[2018-01-17 07:23] LABS: HEMATOCRIT 31.5 % (35.4-49); HEMOGLOBIN 9.7 GM/dL (11.7-16.9); MCHC 30.8 g/dl (32.0-35.9); MEAN CELL VOLUME 94.1 fl (80-96); MEAN PLT VOLUME 8.9 fl (7.5-11.1); PLATELET COUNT 203 K/MM3 (134-434); RBC 3.34 M/mm3 (4.00-5.60); RDW 23.8 % (11.9-15.9); WHITE BLOOD COUNT 3.9 K/mm3 (4.0-10.0)
[2018-01-17 08:31] LABS: INR 2.3 (0.83-1.09); PROTHROMBIN TIME (PATIENT) 27.4 SEC (9.7-13.0)
[2018-01-17] MEDS: THIAMINE HCL 100 MG TABLET (FP) PO SCH (09:07)
[2018-01-17] MEDS: POLYETHYLENE GLYCOL 3350 119 GM BTL PO SCH ×3 (09:07→22:40)
[2018-01-17 09:11] LABS: ANION GAP 13 MMOL/L (8-16); BLOOD UREA NITROGEN 14 mg/dL (7-18); CALCIUM 8.5 mg/dL (8.5-10.1); CHLORIDE 91 mmol/L (98-107); CO2 27 mmol/L (21-32); CREATININE 3.8 mg/dL (0.55-1.3); GLUCOSE,RANDOM 94 mg/dL (74-106); PHOSPHOROUS 2.8 mg/dL (2.5-4.9); POTASSIUM 3.2 mmol/L (3.5-5.1); SODIUM 131 mmol/L (136-145)
[2018-01-17] MEDS: metoPROLOL SUCCINATE 25 MG TAB.SR.24H (FP) PO SCH (09:11)
[2018-01-17] MEDS: SACUBITRIL/VALSARTAN 24 MG-26 MG TABLET PO SCH ×2 (09:12→23:06)
[2018-01-17] MEDS: ONDANSETRON 4 MG/2 ML VIAL IVPUSH PRN (09:12)
--- NOTE | 2018-01-17 10:30 | PN ---
Progress Note (short form) - Note Progress Note: 72yo M s/p Right TMA 01/03, was seen in Dr. Cope office yesterday and felt he had worsening swelling and infection in his foot. Pt states that the pain and swelling has been getting worse. Last Vital Signs Temp Pulse Resp BP Pulse Ox 97.6 F 67 20 113/51 L 98 01/17/18 05:28 01/17/18 05:28 01/17/18 05:28 01/17/18 05:28 01/16/18 22:28 CBC, BMP 01/17/18 06:36 01/17/18 06:36 PE: Gen: A&O x3 Resp: breathing comfortably RLE: +1 edema, s/p TMA dressing in place <Alexis Swift - Last Filed: 01/17/18 10:22> - Note Progress Note: Long course of wounds of right foot resulting in amputation of toes which did not heal and then TMA 2 weeks ago. The wound has failed to heal and Further proximal amputation needed. He has a history of PAD with previous angioplasty of right posterior tibial artery in August. Will schedule BKA once INR has dropped. <Olvin Cope - Last Filed: 01/17/18 13:55> Problem List - Problems (1) Gangrene of foot Assessment/Plan: Plan -pt will be scheduled for Right BKA, will need medical clearance before schedule for surgery -abx as per medicine/ID -will continue to follow. Case discussed with Dr. Cope who agrees. Code(s): I96 - GANGRENE, NOT ELSEWHERE CLASSIFIED <Alexis Swift - Last Filed: 01/17/18 10:22>
--- NOTE | 2018-01-17 12:01 | CON.ID ---
Consult Consult Specialty:: infectious diseases Reason for Consultation:: wound infection,non healing wound - History of Present Illness Chief Complaint: non healing wound and draiange from the wound History of Present Illness: 72M w/ a history of T2DM (iHG T,,), CHF, colon ca s/p resection presenting w / RLE swelling/edema for 1wk. S/p R TMA. Reports worsening RLE necrosis. Denies redness, purulent discharge, or increasing pain. Denies fevers/chills, chest pain, BUSTILLOS, vision changes, abdominal pain, N/V/C/D. Dr. 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 Cardio/Vascular: Yes: AFIB, CAD, CHF, Hyperlipdemia Pulmonary: Yes: COPD, Pulmonary Embolus Gastrointestinal: Yes: Cancer (COLON), Other (PATIENT STATES HE WAS RESECTED AND RECEIVED CHEMOTX AND RT AT [facility]) Renal/: Yes: Renal Failure, Hemodialysis Musculoskeletal: Yes: Other (RIGHT ANKLE/FOOT PAIN 10/10 WITH RIGHT LATERAL METATARSAL ULCER W DRAINAGE) Endocrine: Yes: Diabetes Mellitus - Past Surgical History Past Surgical History: Yes: AICD, Amputation, AV Fistula/Graft, Colectomy - Alcohol/Substance Use Hx Alcohol Use: No History of Substance Use: reports: None - Smoking History Smoking history: Former smoker Have you smoked in the past 12 months: No If you are a former smoker, when did you quit?: 1981 - Social History ADL: Support Services History of Recent Travel: No Home Medications - Allergies Allergies/Adverse Reactions: Allergies Allergy/AdvReac Type Severity Reaction Status Date / Time No Known Drug Allergies Allergy Verified 01/16/18 14:24 - Home Medications Home Medications: Ambulatory Orders Latanoprost 0.005% Eye Drops [Xalatan 0.005% Eye Drops -] 1 drop HS 11/29/17 Acetaminophen Injection [Ofirmev Injection -] 1,000 mg IVPB Q6H PRN vial Amino Acids 4.25%/D5w [Clinimix 4.25%/D5w Solution] 1,000 ml IV Q12H 1 Days #1 infus.bag 01/27/18 Fat Emulsions [Intralipid -] 250 ml IV DAILY@2199 1 Days #250 infus.bag Heparin - 25,000 unit IV TITR vial 01/27/18 LORazepam [Ativan Injection -] 1 mg IM DAILY@2000 1 Days #1 vial MDD 1mg Levothyroxine Sodium [Synthroid Injection -] 37.5 mcg IVPUSH DAILY vial Ondansetron Injection [Zofran Injection] 4 mg IVPUSH Q6H PRN vial 01/27/18 Vancomycin 1 Gram (Pre-Docked) [Vancomycin (Pre-Docked)] 1,000 mg IVPB TuThSa bag 01/27/18 Review of Systems - Review of Systems Constitutional: reports: No Symptoms Eyes: reports: No Symptoms HENT: reports: No Symptoms Neck: reports: No Symptoms Cardiovascular: reports: No Symptoms Respiratory: reports: No Symptoms Gastrointestinal: reports: No Symptoms Genitourinary: reports: No Symptoms Musculoskeletal: reports: Other Integumentary: reports: Erythema, Wound (infected) Endocrine: reports: No Symptoms Hematology/Lymphatic: reports: No Symptoms Psychiatric: reports: No Symptoms Physical Exam Vital Signs: Vital Signs Temperature 97.5 F L 01/17/18 09:00 Pulse Rate 68 01/17/18 09:00 Respiratory Rate 18 01/17/18 09:00 Blood Pressure 101/66 01/17/18 09:00 O2 Sat by Pulse Oximetry (%) 95 01/17/18 09:00 Constitutional: Yes: Well Nourished, Calm, Mild Distress Eyes: Yes: Conjunctiva Clear HENT: Yes: Atraumatic, Normocephalic Neck: Yes: Supple, Trachea Midline Cardiovascular: Yes: Regular Rate and Rhythm Respiratory: Yes: Regular, CTA Bilaterally Gastrointestinal: Yes: Normal Bowel Sounds, Soft Musculoskeletal: Yes: WNL Extremities: Yes: Erythema, Other Wound/Incision: Yes: Dressing Removed, Other (wound foul smell with drainage swelling of the leg) Neurological: Yes: Alert, Oriented Psychiatric: Yes: Alert, Oriented Labs: CBC, BMP 01/17/18 06:36 01/17/18 06:36 Imaging - Results Chest X-ray: Report Reviewed, Image Reviewed Assessment/Plan Problem List - Problems (1) Gangrene of foot Code(s): I96 - GANGRENE, NOT ELSEWHERE CLASSIFIED (2) Atrial fibrillation Code(s): I48.91 - UNSPECIFIED ATRIAL FIBRILLATION Qualifiers: Atrial fibrillation type: permanent Qualified Code(s): I48.2 - Chronic atrial fibrillation (3) Cardiomyopathy Code(s): I42.9 - CARDIOMYOPATHY, UNSPECIFIED Qualifiers: Cardiomyopathy type: unspecified Qualified Code(s): I42.9 - Cardiomyopathy , unspecified (4) Chronic anticoagulation Code(s): Z79.01 - SENIOR LIVING (CURRENT) USE OF 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 (5) Diabetes mellitus Code(s): E11.9 - TYPE 2 DIABETES MELLITUS WITHOUT COMPLICATIONS Qualifiers: Diabetes mellitus type: type 2 Diabetes mellitus prison insulin use: with terminal gauger use Diabetes mellitus complication detail: with peripheral angiopathy with gangrene (6) ESRD (end stage renal disease) Code(s): N18.6 - END STAGE RENAL DISEASE (7) Hypothyroid Code(s): E03.9 - HYPOTHYROIDISM, UNSPECIFIED Qualifiers: Hypothyroidism type: unspecified Qualified Code(s): E03.9 - Hypothyroidism , unspecified (8) ICD (implantable cardioverter-defibrillator) in place Code(s): Z95.810 - PRESENCE OF AUTOMATIC (IMPLANTABLE) CARDIAC DEFIBRILLATOR (9) Open wound of foot Code(s): S91.309A - UNSPECIFIED OPEN WOUND, UNSPECIFIED FOOT, INITIAL ENCOUNTER Qualifiers: Encounter type: subsequent encounter Laterality: right Qualified Code(s) : S91.301D - Unspecified open wound, right foot, subsequent encounter (10) Pericardial effusion Code(s): I31.3 - PERICARDIAL EFFUSION (NONINFLAMMATORY) (12) Status post peripheral artery angioplasty Code(s): Z98.62 - PERIPHERAL VASCULAR ANGIOPLASTY STATUS (13) Status post transmetatarsal amputation of right foot Code(s): Z89.431 - ACQUIRED ABSENCE OF RIGHT FOOT plan will start patient on vanco during dialysis looks like bone involved patient going for amputation wound care await for cx reports rest as per the team
--- NOTE | 2018-01-17 12:01 | CON.CARD ---
Consult Consult Specialty:: Cardiology Referred by:: Rehana Schulte MD Reason for Consultation:: Pre-operative cardiovascular evaluation - History of Present Illness Chief Complaint: Right foot infection despite TMA History of Present Illness: Patient is a 72 year old male with underlying history of ESRD on HD (es, Th , Sat), dilated cardiomyopathy with severe LV systolic dysfunctin, s/p ICD, DM, HTN, AF, hypothyroidism PAD with gangrene right forefoot post right tibial revacularization, transmetatarsal amputation 12/15/2017 presented for worsening right foot necrosis despite HBO2 and wound care treatments and now planned for Rt BKA. Echocardiography in July and September 12, 2017 revealed stable moderate pericardial effusion without evidence of tamponade and severely reduced LV systolic function. He denies chest pain, SOB or palpitations, near or true syncope, paroxysmal nocturnal dyspnea or orthopnea. He denies fever or chills. Concrete Pile Driver Operator: Dr. 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 Cardio/Vascular: Yes: AFIB, CAD, CHF, Hyperlipdemia Pulmonary: Yes: COPD, Pulmonary Embolus Gastrointestinal: Yes: Cancer (COLON), Other (PATIENT STATES HE WAS RESECTED AND RECEIVED CHEMOTX AND RT AT [facility]) Renal/: Yes: Renal Failure, Hemodialysis Musculoskeletal: Yes: Other (RIGHT ANKLE/FOOT PAIN 10/10 WITH RIGHT LATERAL METATARSAL ULCER W DRAINAGE) Endocrine: Yes: Diabetes Mellitus - Past Surgical History Past Surgical History: Yes: AICD, Amputation, AV Fistula/Graft, Colectomy - Alcohol/Substance Use Hx Alcohol Use: No History of Substance Use: reports: None - Smoking History Smoking history: Former smoker Have you smoked in the past 12 months: No If you are a former smoker, when did you quit?: 1981 - Social History ADL: Support Services History of Recent Travel: No Home Medications - Allergies Allergies/Adverse Reactions: Allergies Allergy/AdvReac Type Severity Reaction Status Date / Time No Known Drug Allergies Allergy Verified 01/16/18 14:24 - Home Medications Home Medications: Ambulatory Orders Clopidogrel Bisulfate [Plavix -] 75 mg PO DAILY 09/11/17 Glucosamine Sulfate Dipot Chlr [Glucosamine] 500 mg PO DAILY 09/11/17 Levothyroxine [Synthroid -] 75 mcg PO DAILY 09/11/17 Melatonin 5 mg PO HS PRN 09/11/17 Oxycodone HCl/Acetaminophen [Percocet 5-325 mg Tablet] 1 tab PO Q8H PRN Sacubitril/Valsartan [Entresto 24 mg-26 mg Tablet] 1 each PO BID 09/11/17 Sennosides [Senna -] 2 tab PO HS 09/11/17 Thiamine HCl [B-1] 100 mg PO DAILY 09/11/17 Acetaminophen [Tylenol .Regular Strength -] 325 mg PO Q8H PRN tablet 09/18/17 Metoprolol Succinate [Toprol XL -] 12.5 mg PO DAILY tab.sr.24h 09/18/17 Sitagliptin Phosphate [Januvia -] 25 mg PO 0700 tab 09/18/17 Warfarin Na [Coumadin -] 6 mg PO DAILY@1800 tablet 09/18/17 Insulin Aspart [Novolog] 100 unit SQ BID 10/04/17 Latanoprost 0.005% Eye Drops [Xalatan 0.005% Eye Drops -] 1 drop HS 11/29/17 Vitamin B Comp W-C [Nephro-Fer -] 0.8 mg PO DAILY 11/29/17 Polyethylene Glycol 3350 [Miralax 119 gm Btl -] 17 gm PO BID 12/26/17 Clopidogrel Bisulfate [Plavix] 75 mg PO DAILY 30 Days #30 tablet 01/08/18 Hydromorphone HCl [Dilaudid] 8 mg PO 5XD PRN 7 Days #35 tablet MDD 5 tabs Melatonin 10 mg PO HS PRN tab 01/08/18 Mineral Oil/Petrolat,Wht/Water [Eucerin (Large Jar) -] 1 applic TP BID PRN jar 01/08/18 Vancomycin 1 Gram (Pre-Docked) [Vancomycin (Pre-Docked)] 1,000 mg IVPB TuThSa@ 1000 bag 01/08/18 Warfarin Sodium [Coumadin] 6 mg PO DAILY 30 Days #30 tablet 01/08/18 metroNIDAZOLE [Flagyl -] 500 mg PO TID tablet 01/08/18 Review of Systems - Review of Systems Musculoskeletal: reports: Extremity Pain Vital Signs: Vital Signs Temperature 97.5 F L 01/17/18 09:00 Pulse Rate 68 01/17/18 09:00 Respiratory Rate 18 01/17/18 09:00 Blood Pressure 101/66 01/17/18 09:00 O2 Sat by Pulse Oximetry (%) 95 01/17/18 09:00 Constitutional: Yes: No Distress, Calm Neck: Yes: Supple Respiratory: Yes: Regular, Diminished Gastrointestinal: Yes: Soft, Hypoactive Bowel Sounds Cardiovascular: Yes: Regular Rate and Rhythm JVD: No Carotid Bruit: No Heart Sounds: Yes: S1, S2 Murmur: Yes: Systolic Murmur, Grade 1 Edema: Yes Edema: LLE: 1+, RLE: 1+ - Other Data Labs, Other Data: CBC, BMP 01/17/18 06:36 01/17/18 06:36 INR, PTT INR 2.30 (0.83-1.09) H 01/17/18 06:36 Troponin, BNP 01/16/18 17:25 B-Natriuretic Peptide > 506697.0 H Troponin, BNP 01/16/18 17:25 B-Natriuretic Peptide > 114283.0 H V-paced @ 65 Ejection Fraction %: LVEF < 40 % Imaging - Results Chest X-ray: Report Reviewed (Left base ATX) Problem List - Problems (1) Gangrene of foot Code(s): I96 - GANGRENE, NOT ELSEWHERE CLASSIFIED (2) Atrial fibrillation Code(s): I48.91 - UNSPECIFIED ATRIAL FIBRILLATION Qualifiers: Atrial fibrillation type: permanent Qualified Code(s): I48.2 - Chronic atrial fibrillation (3) Cardiomyopathy Code(s): I42.9 - CARDIOMYOPATHY, UNSPECIFIED Qualifiers: Cardiomyopathy type: unspecified Qualified Code(s): I42.9 - Cardiomyopathy , unspecified (4) Chronic anticoagulation Code(s): Z79.01 - BABBITT SPINNER (CURRENT) USE OF 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 (5) Diabetes mellitus Code(s): E11.9 - TYPE 2 DIABETES MELLITUS WITHOUT COMPLICATIONS Qualifiers: Diabetes mellitus type: type 2 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 use Diabetes mellitus complication detail: with peripheral angiopathy with gangrene (6) ESRD (end stage renal disease) Code(s): N18.6 - END STAGE RENAL DISEASE (7) Hypothyroid Code(s): E03.9 - HYPOTHYROIDISM, UNSPECIFIED Qualifiers: Hypothyroidism type: unspecified Qualified Code(s): E03.9 - Hypothyroidism , unspecified (8) ICD (implantable cardioverter-defibrillator) in place Code(s): Z95.810 - PRESENCE OF AUTOMATIC (IMPLANTABLE) CARDIAC DEFIBRILLATOR (9) Open wound of foot Code(s): S91.309A - UNSPECIFIED OPEN WOUND, UNSPECIFIED FOOT, INITIAL ENCOUNTER Qualifiers: Encounter type: subsequent encounter Laterality: right Qualified Code(s) : S91.301D - Unspecified open wound, right foot, subsequent encounter (10) Pericardial effusion Code(s): I31.3 - PERICARDIAL EFFUSION (NONINFLAMMATORY) (11) Pre-operative cardiovascular examination Code(s): Z01.810 - ENCOUNTER FOR PREPROCEDURAL CARDIOVASCULAR EXAMINATION (12) Status post peripheral artery angioplasty Code(s): Z98.62 - PERIPHERAL VASCULAR ANGIOPLASTY STATUS (13) Status post transmetatarsal amputation of right foot Code(s): Z89.431 - ACQUIRED ABSENCE OF RIGHT FOOT Assessment/Plan 09/12/2017 Echo: Moderate pericardial effusion, no tamponade, mildly dilated LV with severely decreased LV fxn, mild-mod dilated RV with severely decreased RV fxn, mod-severe MUKUL, mild MR, mild-mod TR, mild AR 10/05/2017 Echo: Moderately dilated with severely decreased LV fxn, RV dilated with severely decreased RV fxn, mod LAE, mild MR, mod TR, mild AR, mod pericardial effusion similar to previous 1. Pre-operative cardiovascular evaluation 2. Peripheral artery disease, gangrene right forefoot post right tibial revacularization and debridement of bone and soft tissue post Ch[place]art level amputation right foot, now planned for right BKA 3. Ischemic dilated cardiomyopathy with chronic class I-II NYHA classification LV failure, compensated/euvolemic, post prophylactic ICD implant 4. CAD post MD with history of demand ischemic injury angina pectoris, clinically stable 5. Persistent atrial fibrillation [id number] score of 3-4 off Coumadin pre-op 6. Pericardial effusion probably uremic pericarditis, moderate to large in severity/no tamponade 7. Diabetes mellitus 8. Hypothyroidism 9. History of PTE 10. ESRD 11. History of colon cancer PLAN: 1. Empiric antibiotic course as per ID 2. HD as per renal service, replete K 3. Hold Plavix and Coumadin pre-op, heparin gtt once INR<2.0 with close monitoring of CBC 4. Continue Toprol XL 12.5 qd and titrate as hemodynamics permit/tolerate 5. Continue Entresto 24/26 bid and titrate as hemodynamics permit/tolerate 6. Given absence of symptoms of acute coronary syndrome, decompensated CHF or malignant arrhythmia, may proceed with right BKA from CV-standpoint once INR is acceptable 7. Thank you for consultative opportunity Concrete Pile Driver Operator: Dr. Ghassan Durant
--- NOTE | 2018-01-17 12:56 | PN ---
Progress Note (short form) - Note Progress Note: patient seen and examined in room at bed side c/o pain on and off to right TMA no CP/SOB/ Vital Signs Period Temp Pulse Resp BP Sys/Yoon Pulse Ox Last 24 Hr 97.5 F-98.8 F 62-103 18-22 87-126/50-66 95-100 neck -JVD heart S1/S2 irreg Lungs decreased at bases otherwise clear Abd soft non tender ext Right Lower Ext dressing to right TMA blood stained ++ swelling to right LLE no groin lymphadenopathy Laboratory Last Values WBC 3.9 K/mm3 (4.0-10.0) L 01/17/18 06:36 RBC 3.34 M/mm3 (4.00-5.60) L 01/17/18 06:36 Hgb 9.7 GM/dL (11.7-16.9) L 01/17/18 06:36 Hct 31.5 % (35.4-49) L 01/17/18 06:36 MCV 94.1 fl (80-96) 01/17/18 06:36 MCH 29.0 pg (25.7-33.7) 01/17/18 06:36 MCHC 30.8 g/dl (32.0-35.9) L 01/17/18 06:36 RDW 23.8 % (11.9-15.9) H 01/17/18 06:36 Plt Count 203 K/MM3 (134-434) D 01/17/18 06:36 MPV 8.9 fl (7.5-11.1) 01/17/18 06:36 Platelet Comment Giant platelets 01/16/18 17:25 PT with INR 27.40 SEC (9.7-13.0) H 01/17/18 06:36 INR 2.30 (0.83-1.09) H 01/17/18 06:36 PTT (Actin FS) 41.7 SECONDS (25.2-36.5) H 01/16/18 17:25 Sodium 131 mmol/L (136-145) L 01/17/18 06:36 Potassium 3.2 mmol/L (3.5-5.1) L 01/17/18 06:36 Chloride 91 mmol/L (98-107) L 01/17/18 06:36 Carbon Dioxide 27 mmol/L (21-32) 01/17/18 06:36 Anion Gap 13 MMOL/L (8-16) 01/17/18 06:36 BUN 14 mg/dL (7-18) 01/17/18 06:36 Creatinine 3.8 mg/dL (0.55-1.3) H 01/17/18 06:36 Creat Clearance w eGFR 15.78 (>60) 01/17/18 06:36 POC Glucometer 96 UNITS (80-120) 01/17/18 05:56 Random Glucose 94 mg/dL (74-106) 01/17/18 06:36 Calcium 8.5 mg/dL (8.5-10.1) 01/17/18 06:36 Phosphorus 2.8 mg/dL (2.5-4.9) 01/17/18 06:36 Magnesium 2.0 mg/dL (1.8-2.4) 01/17/18 06:36 Total Bilirubin 1.1 mg/dL (0.2-1) H 01/16/18 17:25 AST 30 U/L (15-37) 01/16/18 17:25 ALT 13 U/L (13-61) 01/16/18 17:25 Alkaline Phosphatase 159 U/L (45-117) H 01/16/18 17:25 B-Natriuretic Peptide > 922607.0 pg/ml (5-125) H 01/16/18 17:25 Total Protein 8.2 g/dl (6.4-8.2) 01/16/18 17:25 Albumin 3.1 g/dl (3.4-5.0) L 01/16/18 17:25 Blood Type O POSITIVE 01/16/18 17:25 Antibody Screen Negative 01/16/18 17:25 Active Medications Acetaminophen (Tylenol -) 325 mg PO Q8H PRN PRN Reason: PAIN SCALE 6-10 Hydromorphone HCl (Dilaudid -) 4 mg PO Q4H PRN PRN Reason: PAIN LEVEL 6-10 Last Admin: 01/16/18 23:36 Dose: 4 mg Latanoprost (Xalatan 0.005% Eye Drops -) 1 drop OD HS [facility] Levothyroxine Sodium (Synthroid -) 75 mcg PO DAILY@0700 [facility] Last Admin: 01/17/18 06:30 Dose: 75 mcg Melatonin (Melatonin) 10 mg PO HS PRN PRN Reason: INSOMNIA Last Admin: 01/16/18 23:36 Dose: 10 mg Metoprolol Succinate (Toprol Xl -) 12.5 mg PO DAILY [facility] Last Admin: 01/17/18 09:11 Dose: 12.5 mg Ondansetron HCl (Zofran Injection) 4 mg IVPUSH Q6H PRN PRN Reason: NAUSEA AND/OR VOMITING Last Admin: 01/17/18 09:12 Dose: 4 mg Polyethylene Glycol (Miralax (For Daily Use) -) 17 gm PO BID [facility] Last Admin: 01/17/18 09:07 Dose: Not Given Sacubitril/Valsartan (Entresto 24 Mg-26 Mg Tablet) 1 tab PO BID [facility] Last Admin: 01/17/18 09:12 Dose: 1 tab Senna (Senna -) 2 tab PO HS [facility] Sitagliptin Phosphate (Januvia -) 25 mg PO DAILY@0700 [facility] Last Admin: 01/17/18 06:30 Dose: 25 mg Thiamine HCl (Vitamin B1 -) 100 mg PO DAILY [facility] Last Admin: 01/17/18 09:07 Dose: Not Given assment / plan #s/p right TMA 01/03/18 non healing will need BKA correction of INR dependent on schedule for OR Cardio clearance done recently for TMA Known to have chronic pericardial effusion Known osteomyelitis will need margins results post op to determine Abx Tx Cardio / ID / Nephrology input requested #s/pPrevious RLE gangrene of toes 2-5 s/p amputation #osteomyelitis - #hyponatremia ( Na 129) improved today Na 131 #PVD PLavix on hole last dose day prior to admission #CKD5 on chronic HD (T/T/S) #DM on insulin / sliding scale # a fib -- a/c on coumadin INR 2.3 Coumadin on hold will trend -- repeat tonight if higher will treat with vit K PO and follow am labs #CAD #Cardiomyopathy s/p ICD #hypothyroid #HF -- echo done last admission had cardiac clearance 01/01/18 #anemia of chronic disease # hx of pericardial effusion -moderate / chronic >6 months hx of colon ca s/p resection hx of PE - on a/c hx of pneumopericardium Problem List - Problems (1) Gangrene of foot Code(s): I96 - GANGRENE, NOT ELSEWHERE CLASSIFIED (2) Open wound of foot Code(s): S91.309A - UNSPECIFIED OPEN WOUND, UNSPECIFIED FOOT, INITIAL ENCOUNTER Qualifiers: Encounter type: subsequent encounter Laterality: right Qualified Code(s) : S91.301D - Unspecified open wound, right foot, subsequent encounter (3) Anemia Code(s): D64.9 - ANEMIA, UNSPECIFIED Qualifiers: Anemia type: due to chronic kidney disease (4) Atrial fibrillation Code(s): I48.91 - UNSPECIFIED ATRIAL FIBRILLATION Qualifiers: Atrial fibrillation type: permanent Qualified Code(s): I48.2 - Chronic atrial fibrillation (5) Cardiomyopathy Code(s): I42.9 - CARDIOMYOPATHY, UNSPECIFIED Qualifiers: Cardiomyopathy type: unspecified Qualified Code(s): I42.9 - Cardiomyopathy , unspecified (6) Chronic kidney disease (CKD), stage V Code(s): N18.5 - CHRONIC KIDNEY DISEASE, STAGE 5 (7) Chronic kidney disease on chronic dialysis Code(s): N18.6 - END STAGE RENAL DISEASE; Z99.2 - DEPENDENCE ON RENAL DIALYSIS (8) Diabetes mellitus Code(s): E11.9 - TYPE 2 DIABETES MELLITUS WITHOUT COMPLICATIONS Qualifiers: Diabetes mellitus type: type 2 Diabetes mellitus fpc insulin use: with fpc use Diabetes mellitus complication detail: with peripheral angiopathy with gangrene (9) HTN (hypertension) Code(s): I10 - ESSENTIAL (PRIMARY) HYPERTENSION Qualifiers: Hypertension type: essential hypertension Qualified Code(s): I10 - Essential (primary) hypertension (10) Hypotension Code(s): I95.9 - HYPOTENSION, UNSPECIFIED Qualifiers: Hypotension type: other hypotension type Qualified Code(s): I95.89 - Other hypotension (11) Hypothyroid Code(s): E03.9 - HYPOTHYROIDISM, UNSPECIFIED Qualifiers: Hypothyroidism type: unspecified Qualified Code(s): E03.9 - Hypothyroidism , unspecified (12) ICD (implantable cardioverter-defibrillator) in place Code(s): Z95.810 - PRESENCE OF AUTOMATIC (IMPLANTABLE) CARDIAC DEFIBRILLATOR (13) Osteomyelitis Code(s): M86.9 - OSTEOMYELITIS, UNSPECIFIED Qualifiers: Osteomyelitis type: other Osteomyelitis location: foot Laterality: right Qualified Code(s): M86.8X7 - Other osteomyelitis, ankle and foot (14) Pericardial effusion Code(s): I31.3 - PERICARDIAL EFFUSION (NONINFLAMMATORY) (15) Status post peripheral artery angioplasty Code(s): Z98.62 - PERIPHERAL VASCULAR ANGIOPLASTY STATUS (16) Status post transmetatarsal amputation of right foot Code(s): Z89.431 - ACQUIRED ABSENCE OF RIGHT FOOT
--- NOTE | 2018-01-17 13:04 | EKG ---
Test Reason : Blood Pressure : / mmHG Vent. Rate : 065 BPM Atrial Rate : 057 BPM P-R Int : 000 ms QRS Dur : 162 ms QT Int : 564 ms P-R-T Axes : 000 -61 103 degrees QTc Int : 586 ms Ventricular-paced rhythm Biventricular pacemaker detected ABNORMAL ECG WHEN COMPARED WITH ECG OF 10-JAN-2018 07:43, VENT. RATE HAS DECREASED BY 2 BPM Confirmed by CARLOTTA WARD, LOPEZ ([id number]) on 01/17/2018 1:03:39 PM Referred By: Confirmed By:LOPEZ LAGUERRE MD
[2018-01-17] MEDS ORDERED: SODIUM CHLORIDE 250 ML IV PRN (13:32)
--- NOTE | 2018-01-17 13:32 | CONSULT ---
Consult Consult Specialty:: Nephrology Reason for Consultation:: ESRD - History of Present Illness Chief Complaint: right lower ext pain and swelling History of Present Illness: Pt is a 72 year old male with pmhx of pvd, esrd, pericardial effusion, and chf who presents for worsening right leg pain and erythema. He denies shortness of breath. He was last dialyzed yesterday. He was sent in for a right BKA. 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: Yes: Peripheral Neuropathy Cardio/Vascular: Yes: AFIB, CAD, CHF, Hyperlipdemia Pulmonary: Yes: COPD, Pulmonary Embolus Gastrointestinal: Yes: Cancer (COLON), Other (PATIENT STATES HE WAS RESECTED AND RECEIVED CHEMOTX AND RT AT [facility]) Renal/: Yes: Renal Failure, Hemodialysis Musculoskeletal: Yes: Other (RIGHT ANKLE/FOOT PAIN 11/22 WITH RIGHT LATERAL METATARSAL ULCER W DRAINAGE) Endocrine: Yes: Diabetes Mellitus - Past Surgical History Past Surgical History: Yes: AICD, Amputation, AV Fistula/Graft, Colectomy - Alcohol/Substance Use Hx Alcohol Use: No History of Substance Use: reports: None - Smoking History Smoking history: Former smoker Have you smoked in the past 12 months: No If you are a former smoker, when did you quit?: 1981 - Social History ADL: Support Services History of Recent Travel: No Home Medications - Allergies Allergies/Adverse Reactions: Allergies Allergy/AdvReac Type Severity Reaction Status Date / Time No Known Drug Allergies Allergy Verified 01/16/18 14:24 - Home Medications Home Medications: Ambulatory Orders Clopidogrel Bisulfate [Plavix -] 75 mg PO DAILY 09/11/17 Glucosamine Sulfate Dipot Chlr [Glucosamine] 500 mg PO DAILY 09/11/17 Levothyroxine [Synthroid -] 75 mcg PO DAILY 09/11/17 Melatonin 5 mg PO HS PRN 09/11/17 Oxycodone HCl/Acetaminophen [Percocet 5-325 mg Tablet] 1 tab PO Q8H PRN Sacubitril/Valsartan [Entresto 24 mg-26 mg Tablet] 1 each PO BID 09/11/17 Sennosides [Senna -] 2 tab PO HS 09/11/17 Thiamine HCl [B-1] 100 mg PO DAILY 09/11/17 Acetaminophen [Tylenol .Regular Strength -] 325 mg PO Q8H PRN tablet 09/18/17 Metoprolol Succinate [Toprol XL -] 12.5 mg PO DAILY tab.sr.24h 09/18/17 Sitagliptin Phosphate [Januvia -] 25 mg PO 0700 tab 09/18/17 Warfarin Na [Coumadin -] 6 mg PO DAILY@1800 tablet 09/18/17 Insulin Aspart [Novolog] 100 unit SQ BID 10/04/17 Latanoprost 0.005% Eye Drops [Xalatan 0.005% Eye Drops -] 1 drop HS 11/29/17 Vitamin B Comp W-C [Nephro-Fer -] 0.8 mg PO DAILY 11/29/17 Polyethylene Glycol 3350 [Miralax 119 gm Btl -] 17 gm PO BID 12/26/17 Clopidogrel Bisulfate [Plavix] 75 mg PO DAILY 30 Days #30 tablet 01/08/18 Hydromorphone HCl [Dilaudid] 8 mg PO 5XD PRN 7 Days #35 tablet MDD 5 tabs Melatonin 10 mg PO HS PRN tab 01/08/18 Mineral Oil/Petrolat,Wht/Water [Eucerin (Large Jar) -] 1 applic TP BID PRN jar 01/08/18 Vancomycin 1 Gram (Pre-Docked) [Vancomycin (Pre-Docked)] 1,000 mg IVPB TuThSa@ 1000 bag 01/08/18 Warfarin Sodium [Coumadin] 6 mg PO DAILY 30 Days #30 tablet 01/08/18 metroNIDAZOLE [Flagyl -] 500 mg PO TID tablet 01/08/18 Family Disease History - Family Disease History Family History: Denies Review of Systems - Review of Systems Constitutional: reports: Malaise. denies: Chills, Fever Eyes: reports: No Symptoms HENT: reports: No Symptoms Neck: reports: No Symptoms Cardiovascular: reports: No Symptoms Respiratory: reports: No Symptoms Gastrointestinal: reports: No Symptoms Genitourinary: reports: No Symptoms Musculoskeletal: reports: Other (right leg pain) Endocrine: reports: No Symptoms Physical Exam Vital Signs: Vital Signs Temperature 97.5 F L 01/17/18 09:00 Pulse Rate 68 01/17/18 09:00 Respiratory Rate 18 01/17/18 09:00 Blood Pressure 101/66 01/17/18 09:00 O2 Sat by Pulse Oximetry (%) 95 01/17/18 09:00 Constitutional: Yes: Calm Eyes: Yes: Conjunctiva Clear HENT: Yes: Atraumatic Cardiovascular: Yes: S1, S2 Respiratory: Yes: CTA Bilaterally, On Nasal O2 Gastrointestinal: Yes: Soft Renal/: Yes: WNL Musculoskeletal: Yes: Other (right leg pain) Edema: Yes Edema: LLE: 1+, RLE: 1+ Neurological: Yes: Oriented Psychiatric: Yes: Oriented Labs: CBC, BMP 01/17/18 06:36 01/17/18 06:36 Laboratory Tests 01/17/18 06:36 Hgb 9.7 L Imaging - Results Chest X-ray: Report Reviewed Problem List - Problems (1) Gangrene of foot Code(s): I96 - GANGRENE, NOT ELSEWHERE CLASSIFIED (2) Anemia Code(s): D64.9 - ANEMIA, UNSPECIFIED Qualifiers: Anemia type: due to chronic kidney disease (3) ESRD (end stage renal disease) Code(s): N18.6 - END STAGE RENAL DISEASE Assessment/Plan Current Medications Generic Name Dose Route Start Last Admin Trade Name Freq PRN Reason Stop Dose Admin Acetaminophen 325 mg 01/16/18 22:22 Tylenol - PO Q8H PRN PAIN SCALE 6-10 Hydromorphone HCl 4 mg 01/16/18 23:12 01/16/18 23:36 Dilaudid - PO 4 mg Q4H PRN Administration PAIN LEVEL 6-10 Latanoprost 1 drop 01/17/18 22:00 Xalatan 0.005% Eye Drops - OD HS VIRAJ Levothyroxine Sodium 75 mcg 01/17/18 07:00 01/17/18 06:30 Synthroid - PO 75 mcg DAILY@0700 VIRAJ Administration Melatonin 10 mg 01/16/18 22:22 01/16/18 23:36 Melatonin PO 10 mg HS PRN Administration INSOMNIA Metoprolol Succinate 12.5 mg 01/17/18 10:00 01/17/18 09:11 Toprol Xl - PO 12.5 mg DAILY VIRAJ Administration Ondansetron HCl 4 mg 01/17/18 09:05 01/17/18 09:12 Zofran Injection IVPUSH 4 mg Q6H PRN Administration NAUSEA AND/OR VOMITING Polyethylene Glycol 17 gm 01/16/18 22:45 01/17/18 09:07 Miralax (For Daily Use) - PO Not Given BID VIRAJ Sacubitril/Valsartan 1 tab 01/16/18 23:00 01/17/18 09:12 Entresto 24 Mg-26 Mg Tablet PO 1 tab BID VIRAJ Administration Senna 2 tab 01/17/18 22:00 Senna - PO HS VIRAJ Sitagliptin Phosphate 25 mg 01/17/18 07:00 01/17/18 06:30 Januvia - PO 25 mg DAILY@0700 VIRAJ Administration Thiamine HCl 100 mg 01/17/18 10:00 01/17/18 09:07 Vitamin B1 - PO Not Given DAILY VIRAJ Impression 1. ESRD 2. hx pericardial effusion 3. hx pneumopericardium 4. hypothyroidism 5. a-fib 6. hypotension 7. hx of colon cancer 8. CHF 9. DM 10. hx of PE 11. CAD 12. right stump infection Plan - HD in am - renal diet with fluid restriction (pt not compliant with fluids) - vascular surgery eval - cont wound care - epogen for anemia - discussed with medial team Dr Conklin
[2018-01-17] MEDS ORDERED: SENNOSIDES 8.6MG TABLET (FP) PO SCH (22:00)
[2018-01-17] MEDS ORDERED: PT OWN MED DRAWER 7, Y5N ONE (22:15)
[2018-01-17] MEDS: LATANOPROST 0.005% OPHTH SOLN 2.5ML BOTTLE OD SCH (23:06)
[2018-01-17 23:10] LABS: INR 2.16 (0.83-1.09); PROTHROMBIN TIME (PATIENT) 25.7 SEC (9.7-13.0)
--- NOTE | 2018-01-17 23:50 | RAPID ---
Physical Examination Vital Signs: Vital Signs Temperature 97.7 F 01/17/18 21:19 Pulse Rate 67 01/17/18 21:19 Respiratory Rate 20 01/17/18 21:19 Blood Pressure 95/64 01/17/18 21:19 O2 Sat by Pulse Oximetry (%) 95 01/17/18 09:00 Findings/Remarks: Called to evaluate patient found unresponsive at 9:33pm. Patient alerted to sternal rub, was oriented but lethargic, drifts in and out of consciousness. Strong radial and femoral pulses appreciated. BP 115/72 Patient complains of abdominal pain. Placed orders for stat ABG, CMP, CBC, lactic acid, troponin, EKG , head CT w/o contrast, abdomen CT w/o contrast. Cardiovascular: Yes: Regular Rate and Rhythm Respiratory: Yes: CTA Bilaterally Gastrointestinal: Yes: Tenderness Extremities: Yes: Other (RUE AV fistula) Edema: LUE: 2+, RUE: 2+ Labs: CBC, BMP 01/17/18 06:36 01/17/18 06:36
[2018-01-18 00:26] LABS: EOS % 0.4 % (0-4.5); HEMOGLOBIN 11.7 GM/dL (11.7-16.9); MCH 30.6 pg (25.7-33.7); MCHC 32.5 g/dl (32.0-35.9); MEAN CELL VOLUME 94.2 fl (80-96); MEAN PLT VOLUME 9.5 fl (7.5-11.1); MONO % 11.1 % (3.8-10.2); NEUT % 81.5 % (42.8-82.8); PLATELET COUNT 263 K/MM3 (134-434); RBC 3.82 M/mm3 (4.00-5.60); RDW 24.3 % (11.9-15.9); WHITE BLOOD COUNT 5.4 K/mm3 (4.0-10.0)
[2018-01-18 00:27] LABS: ALLENS TEST POSITIVE; ARTERIAL BLD GAS O2 SATURATION 97.6 % (90-98.9); ARTERIAL BLOOD GAS BASE EXCESS -0.7 meq/l (-2-2); ARTERIAL BLOOD GAS PCO2 39.8 mmHg (35-45); ARTERIAL BLOOD GAS pH 7.39 (7.35-7.45)
--- NOTE | 2018-01-18 00:34 | CONSULT ---
Consult Consult Specialty:: Critical Care Referred by:: Hospitalist Reason for Consultation:: Rapid response - History of Present Illness Chief Complaint: Change in mental status History of Present Illness: Patient is a 72 year old male with underlying history of ESRD on HD (, , Mon), dilated cardiomyopathy with severe LV systolic dysfunctin, s/p ICD, DM, HTN, AF, hypothyroidism PAD with gangrene right forefoot post right tibial revacularization, transmetatarsal amputation 12/15/2017 presented for worsening right foot pain and purulent drainage and plan if for right BKA. Rapid response called for change in mental status. Per RN patient has been complaining of abdominal pain since the start of her shift. He has been having trouble having a BM and Dr. Schulte called and she gave enema and patient had only brown water output no stool. Per RN she states she could feel the impaction of the stool. Per RN and Patient was able to walk to bathroom with assistance. at bedside and states patient ate half of hamburger for dinner. He all of a sudden started having worsening abdominal pain and moaning in pain and was less responsive while moaning. Labs sent. ABG is WNL. Patient is Hemodynamically stable and is not in respiratory distress. - History Source History Provided By: Significant Other, Medical Record Limitations to Obtaining History: Clinical Condition - Past Medical History AIDS NURSE: Yes: Peripheral Neuropathy Cardio/Vascular: Yes: AFIB, CAD, CHF, Hyperlipdemia Pulmonary: Yes: COPD, Pulmonary Embolus Gastrointestinal: Yes: Cancer (COLON), Other (PATIENT STATES HE WAS RESECTED AND RECEIVED CHEMOTX AND RT AT [facility]) Renal/: Yes: Renal Failure, Hemodialysis Musculoskeletal: Yes: Other (RIGHT ANKLE/FOOT PAIN 10/10 WITH RIGHT LATERAL METATARSAL ULCER W DRAINAGE) Endocrine: Yes: Diabetes Mellitus - Past Surgical History Past Surgical History: Yes: AICD, Amputation, AV Fistula/Graft, Colectomy - Alcohol/Substance Use Hx Alcohol Use: No History of Substance Use: reports: None - Smoking History Smoking history: Former smoker Have you smoked in the past 12 months: No If you are a former smoker, when did you quit?: 1981 - Social History ADL: Support Services History of Recent Travel: No Home Medications - Allergies Allergies/Adverse Reactions: Allergies Allergy/AdvReac Type Severity Reaction Status Date / Time No Known Drug Allergies Allergy Verified 01/16/18 14:24 - Home Medications Home Medications: Ambulatory Orders Clopidogrel Bisulfate [Plavix -] 75 mg PO DAILY 09/11/17 Glucosamine Sulfate Dipot Chlr [Glucosamine] 500 mg PO DAILY 09/11/17 Levothyroxine [Synthroid -] 75 mcg PO DAILY 09/11/17 Melatonin 5 mg PO HS PRN 09/11/17 Oxycodone HCl/Acetaminophen [Percocet 5-325 mg Tablet] 1 tab PO Q8H PRN Sacubitril/Valsartan [Entresto 24 mg-26 mg Tablet] 1 each PO BID 09/11/17 Sennosides [Senna -] 2 tab PO HS 09/11/17 Thiamine HCl [B-1] 100 mg PO DAILY 09/11/17 Acetaminophen [Tylenol .Regular Strength -] 325 mg PO Q8H PRN tablet 09/18/17 Metoprolol Succinate [Toprol XL -] 12.5 mg PO DAILY tab.sr.24h 09/18/17 Sitagliptin Phosphate [Januvia -] 25 mg PO 0700 tab 09/18/17 Warfarin Na [Coumadin -] 6 mg PO DAILY@1800 tablet 09/18/17 Insulin Aspart [Novolog] 100 unit SQ BID 10/04/17 Latanoprost 0.005% Eye Drops [Xalatan 0.005% Eye Drops -] 1 drop HS 11/29/17 Vitamin B Comp W-C [Nephro-Fer -] 0.8 mg PO DAILY 11/29/17 Polyethylene Glycol 3350 [Miralax 119 gm Btl -] 17 gm PO BID 12/26/17 Clopidogrel Bisulfate [Plavix] 75 mg PO DAILY 30 Days #30 tablet 01/08/18 Hydromorphone HCl [Dilaudid] 8 mg PO 5XD PRN 7 Days #35 tablet MDD 5 tabs Melatonin 10 mg PO HS PRN tab 01/08/18 Mineral Oil/Petrolat,Wht/Water [Eucerin (Large Jar) -] 1 applic TP BID PRN jar 01/08/18 Vancomycin 1 Gram (Pre-Docked) [Vancomycin (Pre-Docked)] 1,000 mg IVPB TuThSa@ 1000 bag 01/08/18 Warfarin Sodium [Coumadin] 6 mg PO DAILY 30 Days #30 tablet 01/08/18 metroNIDAZOLE [Flagyl -] 500 mg PO TID tablet 01/08/18 Family Disease History - Family Disease History Family History: Unable to Obtain Review of Systems Unable to obtain ROS, reason: Patient wont answer Physical Exam Vital Signs: Vital Signs Temperature 97.7 F 01/17/18 21:19 Pulse Rate 67 01/17/18 21:19 Respiratory Rate 20 01/17/18 21:19 Blood Pressure 95/64 01/17/18 21:19 O2 Sat by Pulse Oximetry (%) 95 01/17/18 09:00 Constitutional: Yes: Well Nourished, Moderate Distress Eyes: Yes: EOM Intact, PERRL, Other (conjunctival pallor) HENT: Yes: Atraumatic, Normocephalic Neck: Yes: Supple, Trachea Midline Cardiovascular: Yes: Regular Rate and Rhythm Respiratory: Yes: CTA Bilaterally Gastrointestinal: Yes: Soft, Hernia, Tenderness, Tenderness, Epigastrium, Other (Diastasis recti. Palpable mass in epigastrium which seems to be tender and possibly an incarcerated hernia. Well healed midline abdominal scar) Edema: Yes Edema: LLE: 2+, RLE: 2+ Neurological: Yes: Other (somnolent. Moaning in pain. Moving extermities. able to hold upper extremities up for about 4 seconds. Not able to due complete neurological exam.) Imaging - Results Chest X-ray: Report Reviewed, Image Reviewed EKG: Image Reviewed Assessment/Plan 72M with extensive PMH presented to hospital for worsening necrosis of right TMA stump now with altered mental status and abdominal pain Problem List: Altered mental status r/o strangulated vs incarcerated hernia vs less likely perforation or just severe constipation CHF CAD HTN ESRD on HD Colon Ca s/p CHemo RT History of PE s/p Pacemaker A fib PVD/PAD s/p right TMA Plan: ABG is WNL and patient is not in any respiratory distress and he is hemodynamically stable send patient to head CT and abdominal/pelvis CT now get Full set of labs including cardiac enzymems and lactic acid Will do rectal exam when patient is back from CT scan and attempt disimpaction if impacted depending on CT scan will follow up CT scan Will follow up Labs Patient does not need any respiratory support at this time pain control consider Disimpaction consider GI consult May need aggressive bowel regimen may need emergent surgical intervention at which patient patient may need ICU care afterwards discussed with medical team Will await complete work up but at this point given BP 115/72 HR 72 RR 12 ABG WNL and patient not in respiratory distress or in need of supplemental O2. Can continue to monitor in non critical care setting for now If patient has any acute findings that suggests he will need critical care monitoring will monitor patient in ICU.
[2018-01-18 00:57] LABS: ALK PHOS 168 U/L (45-117); ANION GAP 17 MMOL/L (8-16); BILIRUBIN,TOTAL 1.4 mg/dL (0.2-1); BLOOD UREA NITROGEN 20 mg/dL (7-18); CALCIUM 9.8 mg/dL (8.5-10.1); CHLORIDE 87 mmol/L (98-107); CO2 24 mmol/L (21-32); CREATININE 4.7 mg/dL (0.55-1.3); GLUCOSE,RANDOM 130 mg/dL (74-106); POTASSIUM 3.2 mmol/L (3.5-5.1); SGOT/AST 30 U/L (15-37); SGPT/ALT 12 U/L (13-61); SODIUM 128 mmol/L (136-145)
[2018-01-18] MEDS: KCL 10 MEQ IVPB 10 MEQ/100 ML INFUS.BAG IVPB SCH ×2 (01:22→03:52)
[2018-01-18] MEDS ORDERED: SODIUM CHLORIDE 0.9% 500 ML INFUS.BAG IV ONE (01:23)
[2018-01-18] MEDS ORDERED: SODIUM CHLORIDE 250 ML IV STA (01:23)
[2018-01-18] MEDS ORDERED: SODIUM CHLORIDE 1,000 ML IV SCH (01:30)
--- NOTE | 2018-01-18 01:39 | HOSP ---
Subjective - Review of Symptoms Events since last encounter: Patient underwent head CT and abd/pelvis CT. Small bowel obstruction demonstrated on prelim read at site of prior surgical anastomosis. 250ml NS bolus followed by NS @ 50 initiated and NGT placed. General surgery consulted. ABG and remainder of labs reassuring, mental status is improved, physical exam unchanged. No indication for transfer to telemetry or ICU. Will continue to monitor closely. Physical Examination Vital Signs: Vital Signs Temperature 97.7 F 01/17/18 21:19 Pulse Rate 67 01/17/18 21:19 Respiratory Rate 20 01/17/18 21:19 Blood Pressure 95/64 01/17/18 21:19 O2 Sat by Pulse Oximetry (%) 95 01/17/18 09:00 Labs: CBC, BMP 01/17/18 23:43 01/17/18 23:43
[2018-01-18] MEDS ORDERED: BENZOCAINE/MENTH/CETYLPYRD CL 1 EACH LOZENGE MM PRN (01:49)
[2018-01-18 03:42] LABS: ANISOCYTOSIS 2+; MACROCYTOSIS 2+; PLATELET ESTIMATE NORMAL
[2018-01-18] MEDS: INSULIN SLIDING SCALE (NOVOLOG) 1 VIAL SQ SCH ×4 (06:15→22:37)
[2018-01-18] MEDS: LEVOTHYROXINE NA 75 MCG TABLET (FP) PO SCH (06:16)
[2018-01-18 08:17] LABS: ANION GAP 15 MMOL/L (8-16); BLOOD UREA NITROGEN 18 mg/dL (7-18); CALCIUM 8.9 mg/dL (8.5-10.1); CHLORIDE 90 mmol/L (98-107); CO2 24 mmol/L (21-32); GLUCOSE,RANDOM 142 mg/dL (74-106); POTASSIUM 3.3 mmol/L (3.5-5.1); SODIUM 129 mmol/L (136-145)
--- NOTE | 2018-01-18 08:58 | PN ---
Progress Note (short form) - Note Progress Note: surgery 72m with heart failure from dilated cardiomyopathy, ef<20%, pe, afib, AICD, copd , renal failure, dm, hyponatremia, colon cancer with [place] [facility] [place] , on plavix and coumadin 01/17?, admitted for foot gangrene and sepsis, underwent ct head for mental status changes along with ct of abd with overlying left hand without oral contrast. apparently there is a report of sbo at an anastamosis that the internest saw but no official report in the computer. If ct is read as sbo then pt should be transferred to a tertiary care center as he is not a candidate for surgery at this community hospital. More likely this is a poor quality study and should be repeated with oral contrast as ileus would be a more probable diagnosis. suggest gi eval.
[2018-01-18] MEDS ORDERED: PT OWN MED DRAWER 7, Y5N ONE ×3 (09:50→22:31)
[2018-01-18] MEDS: THIAMINE HCL 100 MG TABLET (FP) PO SCH (09:53)
[2018-01-18] MEDS: metoPROLOL SUCCINATE 25 MG TAB.SR.24H (FP) PO SCH (09:53)
[2018-01-18] MEDS: SACUBITRIL/VALSARTAN 24 MG-26 MG TABLET PO SCH (09:53)
[2018-01-18] MEDS: POLYETHYLENE GLYCOL 3350 119 GM BTL PO SCH (09:53)
--- NOTE | 2018-01-18 10:21 | PN ---
Progress Note, Physician History of Present Illness: Patient had altered mental status, abd pain, nausea and emesis overnight, CT scan interpreted as distal SBO at anastamotic site, NGT decompression with relief of sxs, denies BM. Clinic Licensed Practical Nurse: Dr. Ghassan Durant - Current Medication List Current Medications: Active Medications Acetaminophen (Tylenol -) 325 mg PO Q8H PRN PRN Reason: PAIN SCALE 6-10 Albumin Human (Albumin Human 25%) 12.5 gm IVPB Q30M [facility] Benzocaine/Menthol (Cepacol Lozenge -) 1 each MM PRN PRN PRN Reason: SORE THROAT Last Admin: 01/18/18 03:51 Dose: 1 each Epoetin Hector (Epogen -) 10,000 unit IVPUSH ONCE ONE Stop: 01/18/18 13:33 Hydromorphone HCl (Dilaudid -) 4 mg PO Q4H PRN PRN Reason: PAIN LEVEL 6-10 Last Admin: 01/17/18 15:37 Dose: 4 mg Sodium Chloride (Normal Saline -) 1,000 mls @ 50 mls/hr IV ASDIR [facility] Stop: 01/19/18 01:25 Last Admin: 01/18/18 03:52 Dose: Not Given Insulin Aspart (Novolog Vial Sliding Scale -) 1 vial SQ ACHS [facility]; Protocol Last Admin: 01/18/18 06:15 Dose: Not Given Latanoprost (Xalatan 0.005% Eye Drops -) 1 drop OD HS [facility] Last Admin: 01/17/18 23:06 Dose: Not Given Levothyroxine Sodium (Synthroid Injection -) 37.5 mcg IVPUSH DAILY [facility] Melatonin (Melatonin) 10 mg PO HS PRN PRN Reason: INSOMNIA Last Admin: 01/16/18 23:36 Dose: 10 mg Metoprolol Succinate (Toprol Xl -) 12.5 mg PO DAILY [facility] Last Admin: 01/18/18 09:53 Dose: Not Given Ondansetron HCl (Zofran Injection) 4 mg IVPUSH Q6H PRN PRN Reason: NAUSEA AND/OR VOMITING Last Admin: 01/17/18 09:12 Dose: 4 mg Polyethylene Glycol (Miralax (For Daily Use) -) 17 gm PO BID [facility] Last Admin: 01/18/18 09:53 Dose: Not Given Sacubitril/Valsartan (Entresto 24 Mg-26 Mg Tablet) 1 tab PO BID [facility] Last Admin: 01/18/18 09:53 Dose: Not Given Senna (Senna -) 2 tab PO HS [facility] Last Admin: 01/17/18 22:40 Dose: 2 tab Thiamine HCl (Vitamin B1 -) 100 mg PO DAILY [facility] Last Admin: 01/18/18 09:53 Dose: Not Given - Objective Vital Signs: Vital Signs Temperature 97.3 F L 01/18/18 07:56 Pulse Rate 66 01/18/18 07:56 Respiratory Rate 20 01/18/18 07:56 Blood Pressure 113/70 01/18/18 07:56 O2 Sat by Pulse Oximetry (%) 95 01/17/18 21:00 Constitutional: Yes: No Distress, Calm, Thin Neck: Yes: Supple Cardiovascular: Yes: Regular Rate and Rhythm Respiratory: Yes: Regular, Diminished Gastrointestinal: Yes: Distention, Hypoactive Bowel Sounds Edema: No Labs: CBC, BMP 01/17/18 23:43 01/18/18 07:15 INR, PTT INR 2.16 (0.83-1.09) H 01/17/18 22:00 Problem List - Problems (1) Gangrene of foot Code(s): I96 - GANGRENE, NOT ELSEWHERE CLASSIFIED (2) Atrial fibrillation Code(s): I48.91 - UNSPECIFIED ATRIAL FIBRILLATION Qualifiers: Atrial fibrillation type: permanent Qualified Code(s): I48.2 - Chronic atrial fibrillation (3) Cardiomyopathy Code(s): I42.9 - CARDIOMYOPATHY, UNSPECIFIED Qualifiers: Cardiomyopathy type: unspecified Qualified Code(s): I42.9 - Cardiomyopathy , unspecified (4) Chronic anticoagulation Code(s): Z79.01 - PLASTICS SCIENTIST (CURRENT) USE OF 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 (5) Diabetes mellitus Code(s): E11.9 - TYPE 2 DIABETES MELLITUS WITHOUT COMPLICATIONS Qualifiers: Diabetes mellitus type: type 2 Diabetes mellitus fci insulin use: with fci use Diabetes mellitus complication detail: with peripheral angiopathy with gangrene (6) ESRD (end stage renal disease) Code(s): N18.6 - END STAGE RENAL DISEASE (7) Hypothyroid Code(s): E03.9 - HYPOTHYROIDISM, UNSPECIFIED Qualifiers: Hypothyroidism type: unspecified Qualified Code(s): E03.9 - Hypothyroidism , unspecified (8) ICD (implantable cardioverter-defibrillator) in place Code(s): Z95.810 - PRESENCE OF AUTOMATIC (IMPLANTABLE) CARDIAC DEFIBRILLATOR (9) Open wound of foot Code(s): S91.309A - UNSPECIFIED OPEN WOUND, UNSPECIFIED FOOT, INITIAL ENCOUNTER Qualifiers: Encounter type: subsequent encounter Laterality: right Qualified Code(s) : S91.301D - Unspecified open wound, right foot, subsequent encounter (10) Pericardial effusion Code(s): I31.3 - PERICARDIAL EFFUSION (NONINFLAMMATORY) (11) Pre-operative cardiovascular examination Code(s): Z01.810 - ENCOUNTER FOR PREPROCEDURAL CARDIOVASCULAR EXAMINATION (12) Status post peripheral artery angioplasty Code(s): Z98.62 - PERIPHERAL VASCULAR ANGIOPLASTY STATUS (13) Status post transmetatarsal amputation of right foot Code(s): Z89.431 - ACQUIRED ABSENCE OF RIGHT FOOT (14) Ileus Code(s): K56.7 - ILEUS, UNSPECIFIED Assessment/Plan 09/12/2017 Echo: Moderate pericardial effusion, no tamponade, mildly dilated LV with severely decreased LV fxn, mild-mod dilated RV with severely decreased RV fxn, mod-severe MUKUL, mild MR, mild-mod TR, mild AR 10/05/2017 Echo: Moderately dilated with severely decreased LV fxn, RV dilated with severely decreased RV fxn, mod LAE, mild MR, mod TR, mild AR, mod pericardial effusion similar to previous 1. Pre-operative cardiovascular evaluation 2. Peripheral artery disease, gangrene right forefoot post right tibial revacularization and debridement of bone and soft tissue post Chopart level amputation right foot, now planned for right BKA 3. Ileus vs distal SBO 4. Ischemic dilated cardiomyopathy with chronic class I-II NYHA classification LV failure, compensated/euvolemic, post prophylactic ICD implant 5. CAD post VA with history of demand ischemic injury angina pectoris, clinically stable 6. Persistent atrial fibrillation [id number] score of 3-4 off Coumadin pre-op 7. Pericardial effusion probably uremic pericarditis, moderate to large in severity/no tamponade 8. Diabetes mellitus 9. Hypothyroidism 10. History of PTE 11. ESRD 12. History of colon cancer PLAN: 1. Empiric antibiotic course as per ID 2. HD as per renal service, replete K 3. Hold Plavix and Coumadin pre-op, heparin gtt once INR<2.0 with close monitoring of CBC 4. NGT decompression 5. Resume Toprol XL 12.5 qd and Entresto 24/26 bid once able to tolerate oral 6. Given absence of symptoms of acute coronary syndrome, decompensated CHF or malignant arrhythmia, may proceed with right BKA from CV-standpoint once INR is acceptable and ileus/SBO resolves Clinic Licensed Practical Nurse: Dr. Ghassan Durant
--- NOTE | 2018-01-18 10:27 | EKG ---
Test Reason : Blood Pressure : / mmHG Vent. Rate : 070 BPM Atrial Rate : 039 BPM P-R Int : 000 ms QRS Dur : 150 ms QT Int : 472 ms P-R-T Axes : 000 -60 126 degrees QTc Int : 509 ms Ventricular-paced rhythm WITH OCCASIONAL PREMATURE VENTRICULAR COMPLEXES Biventricular pacemaker detected ABNORMAL ECG WHEN COMPARED WITH ECG OF 16-JAN-2018 16:17, PREMATURE VENTRICULAR COMPLEXES ARE NOW PRESENT VENT. RATE HAS INCREASED BY 5 BPM Confirmed by WERO DU MD ([id number]) on 01/18/2018 10:27:19 AM Referred By: Confirmed By:WERO DU MD
--- NOTE | 2018-01-18 10:32 | PN ---
Progress Note (short form) - Note Progress Note: Pt seen for dressing change. Denies pain in RLE. Reports he is currently dealing with abdominal pain since last night, had NG tube placed. On exam, pt sitting up in bed, awake, alert oriented x3. RLE dressing with moderate serosanguinous drainage. Dressing removed. TMA flap open partially at medial aspect. Moderate fibrinous exudate. No erythema or purulent drainage. No foul odor. Leg redressed with 4x4, kerlix, sheridan wrap to below knee. Per primary team possible transfer to tertiary center if evaluation reveals sbo requiring surgical intervention If pt remains inhouse will plan for BKA if medical optimized and cleared for surgery Dr Cope notified of above
[2018-01-18] MEDS ORDERED: EPOETIN ALFA 10,000 UNIT/1 ML VIAL IVPUSH ONE (11:00)
--- NOTE | 2018-01-18 11:10 | PN ---
Progress Note (short form) - Note Progress Note: 72 y/o male found sitting in bed. NG tube in place. Pt states that he wants it out. Denies pain at present but states that pain was bad last night. Vital Signs Period Temp Pulse Resp BP Sys/Yoon Pulse Ox Last 24 Hr 97.3 F-97.7 F 66-67 20-20 95-126/64-73 95-95 CBC, BMP 01/17/18 23:43 01/18/18 07:15 HEENT-NL Neck-Supple Lungs-CTAB Heart-S1/S2 Abd-Soft, NT Ext- Trace LE edema Dsg intact on rt LE Active Medications Acetaminophen (Tylenol -) 325 mg PO Q8H PRN PRN Reason: PAIN SCALE 6-10 Albumin Human (Albumin Human 25%) 12.5 gm IVPB Q30M [facility] Stop: 01/18/18 12:31 Benzocaine/Menthol (Cepacol Lozenge -) 1 each MM PRN PRN PRN Reason: SORE THROAT Last Admin: 01/18/18 03:51 Dose: 1 each Hydromorphone HCl (Dilaudid -) 4 mg PO Q4H PRN PRN Reason: PAIN LEVEL 6-10 Last Admin: 01/17/18 15:37 Dose: 4 mg Sodium Chloride (Normal Saline -) 1,000 mls @ 50 mls/hr IV ASDIR [facility] Stop: 01/19/18 01:25 Last Admin: 01/18/18 03:52 Dose: Not Given Insulin Aspart (Novolog Vial Sliding Scale -) 1 vial SQ ACHS [facility]; Protocol Last Admin: 01/18/18 06:15 Dose: Not Given Latanoprost (Xalatan 0.005% Eye Drops -) 1 drop OD HS [facility] Last Admin: 01/17/18 23:06 Dose: Not Given Levothyroxine Sodium (Synthroid Injection -) 37.5 mcg IVPUSH DAILY [facility] Melatonin (Melatonin) 10 mg PO HS PRN PRN Reason: INSOMNIA Last Admin: 01/16/18 23:36 Dose: 10 mg Metoprolol Succinate (Toprol Xl -) 12.5 mg PO DAILY [facility] Last Admin: 01/18/18 09:53 Dose: Not Given Ondansetron HCl (Zofran Injection) 4 mg IVPUSH Q6H PRN PRN Reason: NAUSEA AND/OR VOMITING Last Admin: 01/17/18 09:12 Dose: 4 mg Polyethylene Glycol (Miralax (For Daily Use) -) 17 gm PO BID [facility] Last Admin: 01/18/18 09:53 Dose: Not Given Sacubitril/Valsartan (Entresto 24 Mg-26 Mg Tablet) 1 tab PO BID [facility] Last Admin: 01/18/18 09:53 Dose: Not Given Senna (Senna -) 2 tab PO HS [facility] Last Admin: 01/17/18 22:40 Dose: 2 tab Thiamine HCl (Vitamin B1 -) 100 mg PO DAILY [facility] Last Admin: 01/18/18 09:53 Dose: Not Given assessment / plan #s/p right TMA 01/03/18 non healing will need BKA after sbo addressed Known to have chronic pericardial effusion Known osteomyelitis #SBO GI consult requested surgical consult requested NGT in place #s/p Previous RLE gangrene of toes 2-5 s/p amputation #osteomyelitis #hyponatremia ( Na 129) #PVD PLavix on hold last dose day prior to admission #CKD5 on chronic HD (T/T/S) #DM on insulin / sliding scale # a fib -- a/c on coumadin Coumadin on hold #CAD #Cardiomyopathy s/p ICD #hypothyroid PO synthroid changed to Iv #HF -- echo done last admission had cardiac clearance 01/01/18 #anemia of chronic disease # hx of pericardial effusion -moderate / chronic >6 months hx of colon ca s/p resection hx of PE - on a/c hx of pneumopericardium Problem List - Problems (1) Gangrene of foot Code(s): I96 - GANGRENE, NOT ELSEWHERE CLASSIFIED (2) Open wound of foot Code(s): S91.309A - UNSPECIFIED OPEN WOUND, UNSPECIFIED FOOT, INITIAL ENCOUNTER Qualifiers: Encounter type: subsequent encounter Laterality: right Qualified Code(s) : S91.301D - Unspecified open wound, right foot, subsequent encounter (3) Anemia Code(s): D64.9 - ANEMIA, UNSPECIFIED Qualifiers: Anemia type: due to chronic kidney disease (4) Atrial fibrillation Code(s): I48.91 - UNSPECIFIED ATRIAL FIBRILLATION Qualifiers: Atrial fibrillation type: permanent Qualified Code(s): I48.2 - Chronic atrial fibrillation (5) Cardiomyopathy Code(s): I42.9 - CARDIOMYOPATHY, UNSPECIFIED Qualifiers: Cardiomyopathy type: unspecified Qualified Code(s): I42.9 - Cardiomyopathy , unspecified (6) Chronic kidney disease (CKD), stage V Code(s): N18.5 - CHRONIC KIDNEY DISEASE, STAGE 5 (7) Chronic kidney disease on chronic dialysis Code(s): N18.6 - END STAGE RENAL DISEASE; Z99.2 - DEPENDENCE ON RENAL DIALYSIS (8) Diabetes mellitus Code(s): E11.9 - TYPE 2 DIABETES MELLITUS WITHOUT COMPLICATIONS Qualifiers: Diabetes mellitus type: type 2 Diabetes mellitus oil heaterman insulin use: with oil heaterman use Diabetes mellitus complication detail: with peripheral angiopathy with gangrene (9) HTN (hypertension) Code(s): I10 - ESSENTIAL (PRIMARY) HYPERTENSION Qualifiers: Hypertension type: essential hypertension Qualified Code(s): I10 - Essential (primary) hypertension (10) Hypotension Code(s): I95.9 - HYPOTENSION, UNSPECIFIED Qualifiers: Hypotension type: other hypotension type Qualified Code(s): I95.89 - Other hypotension (11) Hypothyroid Code(s): E03.9 - HYPOTHYROIDISM, UNSPECIFIED Qualifiers: Hypothyroidism type: unspecified Qualified Code(s): E03.9 - Hypothyroidism , unspecified (12) ICD (implantable cardioverter-defibrillator) in place Code(s): Z95.810 - PRESENCE OF AUTOMATIC (IMPLANTABLE) CARDIAC DEFIBRILLATOR (13) Osteomyelitis Code(s): M86.9 - OSTEOMYELITIS, UNSPECIFIED Qualifiers: Osteomyelitis type: other Osteomyelitis location: foot Laterality: right Qualified Code(s): M86.8X7 - Other osteomyelitis, ankle and foot (14) Pericardial effusion Code(s): I31.3 - PERICARDIAL EFFUSION (NONINFLAMMATORY) (15) Status post peripheral artery angioplasty Code(s): Z98.62 - PERIPHERAL VASCULAR ANGIOPLASTY STATUS (16) Status post transmetatarsal amputation of right foot Code(s): Z89.431 - ACQUIRED ABSENCE OF RIGHT FOOT
--- NOTE | 2018-01-18 11:42 | PN ---
Teaching Attending Note Name of Resident: Rafa Hoyt ATTENDING PHYSICIAN STATEMENT I saw and evaluated the patient. I reviewed the resident's note and discussed the case with the resident. I agree with the resident's findings and plan as documented. SUBJECTIVE: Overnight events reviewed. Pt with altered mental status, abdominal distention. CT A/P done showing small bowel obstruction at anastamosis site. NGT placed with improvement in mental status. Currently denies abdominal pain, nausea or vomiting. Reports small flatus. No shortness of breath or chest pain. OBJECTIVE: Vital Signs Period Temp Pulse Resp BP Sys/Yoon Pulse Ox Last 24 Hr 97.3 F-97.7 F 66-67 20-20 95-126/64-73 95-95 Gen: NAD in chair Heart: RRR Lung: decreased breath sounds at the bases Abd: softly distended, nontender Ext: + edema CBC, BMP 01/17/18 23:43 01/18/18 07:15 Active Medications Acetaminophen (Tylenol -) 325 mg PO Q8H PRN PRN Reason: PAIN SCALE 6-10 Albumin Human (Albumin Human 25%) 12.5 gm IVPB Q30M [facility] Stop: 01/18/18 12:31 Benzocaine/Menthol (Cepacol Lozenge -) 1 each MM PRN PRN PRN Reason: SORE THROAT Last Admin: 01/18/18 03:51 Dose: 1 each Hydromorphone HCl (Dilaudid -) 4 mg PO Q4H PRN PRN Reason: PAIN LEVEL 6-10 Last Admin: 01/17/18 15:37 Dose: 4 mg Sodium Chloride (Normal Saline -) 1,000 mls @ 50 mls/hr IV ASDIR [facility] Stop: 01/19/18 01:25 Last Admin: 01/18/18 03:52 Dose: Not Given Insulin Aspart (Novolog Vial Sliding Scale -) 1 vial SQ ACHS [facility]; Protocol Last Admin: 01/18/18 06:15 Dose: Not Given Latanoprost (Xalatan 0.005% Eye Drops -) 1 drop OD HS [facility] Last Admin: 01/17/18 23:06 Dose: Not Given Levothyroxine Sodium (Synthroid Injection -) 37.5 mcg IVPUSH DAILY [facility] Melatonin (Melatonin) 10 mg PO HS PRN PRN Reason: INSOMNIA Last Admin: 01/16/18 23:36 Dose: 10 mg Metoprolol Succinate (Toprol Xl -) 12.5 mg PO DAILY [facility] Last Admin: 01/18/18 09:53 Dose: Not Given Ondansetron HCl (Zofran Injection) 4 mg IVPUSH Q6H PRN PRN Reason: NAUSEA AND/OR VOMITING Last Admin: 01/17/18 09:12 Dose: 4 mg Polyethylene Glycol (Miralax (For Daily Use) -) 17 gm PO BID [facility] Last Admin: 01/18/18 09:53 Dose: Not Given Sacubitril/Valsartan (Entresto 24 Mg-26 Mg Tablet) 1 tab PO BID [facility] Last Admin: 01/18/18 09:53 Dose: Not Given Senna (Senna -) 2 tab PO HS [facility] Last Admin: 01/17/18 22:40 Dose: 2 tab Thiamine HCl (Vitamin B1 -) 100 mg PO DAILY [facility] Last Admin: 01/18/18 09:53 Dose: Not Given ASSESSMENT AND PLAN: Small Bowel Obstruction Lactic Acidosis CAD LV Systolic Dysfunction PAD for R BKA ESRD on HD Atrial Fibrillation Pericardial Effusion DM Hypothyroidism h/o Colon Ca - NGT to low wall suction - surgery eval - NPO - IVF - rate control - holding anticoagulation pre-operatively - HD per renal - pt currently back to baseline, can monitor on floor, please call back if any change in clinical condition
--- NOTE | 2018-01-18 12:38 | CONS ---
DATE OF CONSULTATION: 03/21/2017 REASON FOR CONSULTATION: Small-bowel obstruction. BRIEF HISTORY: This is a 72-year-old male with multiple medical problems including dilated cardiomyopathy with a 15% ejection fraction, COPD, history of pulmonary emboli. He is on Coumadin as well as Plavix. He also had peripheral vascular disease, hyponatremia, and he is end-stage renal disease with hemodialysis 3 times a week. He also has atrial fibrillation, hyperthyroid disease, diabetes, pericardial effusion. He has been treated for an osteomyelitis of his lower foot which required a transmetatarsal amputation, and despite this has further gone on to develop gangrene and was admitted for further amputation. While here, he had mental status changes. He also stated that he felt his abdomen became distended and he felt his hernia got stuck. Because of this, he went for a CAT scan of his head as well as his abdomen and pelvis. The CT head was negative, but the abdomen and pelvis was read by the radiologist as dilated small bowel, with some dilatation around the small bowel anastomosis as well, with anasarca and either a distal small-bowel obstruction without a transition point versus an ileus. The patient also did not have oral contrast, and his hand was lying over his abdomen during the study. At this point, nasogastric tube was placed without significant output. The patient returned to his normal mental status, started passing gas and currently has no pain. He denies a bowel movement. He is requesting his nasogastric tube be removed. PAST SURGICAL HISTORY: Includes an ICD cardiac device, amputation of his foot. He had a colectomy at [facility] for colon cancer and possibly some small bowel resection as well based on CAT scan. He has an AV fistula for his dialysis. MEDICATIONS: His home medications have been reviewed. They are notable for Coumadin, Plavix, insulin, and valsartan. REVIEW OF SYSTEMS: General: Admits to fatigue. Cardiac: Denies chest pain. Respiratory: Denies shortness of breath. Gastrointestinal: Currently no pain. Genitourinary: Denies dysuria. Musculoskeletal: Admits to foot problems. PHYSICAL EXAMINATION: General: This is a well-developed, well-nourished 72-year-old male in no distress. He is listed at 292 pounds, which I suspect is not his true weight. HEENT: His head is normocephalic. His sclerae are anicteric. Neck: Supple. Chest: Clear. Abdomen: Soft. It is nontender, nondistended. There is a reducible incisional hernia in the upper pole of a midline incision. Extremities: His extremities have edema. His right foot is in a bandage. LABORATORY: His white blood cell count is normal at 5.4. His chemistries show hyponatremia, hypokalemia. His imaging is as in HPI. ASSESSMENT: A 72-year-old male with multiple medical problems, not a candidate for surgery at a [facility], who had some abdominal distention and a CAT scan showing the possibility of mechanical small-bowel obstruction without a transition point noted. Clinically, he more likely had an ileus from other issues; however, it is also possible that he had a hernia that self-reduced that was causing the temporary obstruction. At this point his abdominal examination is benign. He has no nasogastric tube output and he claims that he is passing flatus. I will remove the nasogastric tube. If he remains well today, would recommend start him on a liquid diet and keep him on that for several days. If he requires replacement of the nasogastric tube, which would be manifested by abdominal pain and vomiting, then he should be transferred to a tertiary care center because he is not a candidate for surgery at a [facility] due to his cardiac conditions, his pulmonary conditions, and his kidney failure. DO DOLLY FRANCIS/[id number]
[2018-01-18] MEDS: ALBUMIN HUMAN 25% 12.5 GM/50 ML VIAL IVPB SCH ×4 (13:00→14:30)
[2018-01-18 13:55] LABS: HEMATOCRIT 30.6 % (35.4-49); HEMOGLOBIN 10.2 GM/dL (11.7-16.9); MCH 30.8 pg (25.7-33.7); MCHC 33.4 g/dl (32.0-35.9); MEAN CELL VOLUME 92.2 fl (80-96); MEAN PLT VOLUME 9.5 fl (7.5-11.1); PLATELET COUNT 234 K/MM3 (134-434); RBC 3.32 M/mm3 (4.00-5.60); RDW 23.7 % (11.9-15.9); WHITE BLOOD COUNT 4.7 K/mm3 (4.0-10.0)
[2018-01-18 14:05] LABS: ALK PHOS 138 U/L (45-117); ANION GAP 13 MMOL/L (8-16); BILIRUBIN,TOTAL 1.1 mg/dL (0.2-1); BLOOD UREA NITROGEN 19 mg/dL (7-18); CALCIUM 9.3 mg/dL (8.5-10.1); CHLORIDE 90 mmol/L (98-107); CO2 25 mmol/L (21-32); CREATININE 5.2 mg/dL (0.55-1.3); GLUCOSE,RANDOM 129 mg/dL (74-106); POTASSIUM 3.4 mmol/L (3.5-5.1); SGOT/AST 24 U/L (15-37); SGPT/ALT 11 U/L (13-61); SODIUM 127 mmol/L (136-145); TOT PROT 7.7 g/dl (6.4-8.2)
--- NOTE | 2018-01-18 14:17 | PN ---
Progress Note, Physician History of Present Illness: says he is doing well no complaints tolerating hd - Current Medication List Current Medications: Active Medications Acetaminophen (Ofirmev Injection -) 1,000 mg IVPB Q6H PRN PRN Reason: PAIN Sodium Chloride (Normal Saline -) 1,000 mls @ 50 mls/hr IV ASDIR [facility] Stop: 01/19/18 01:25 Last Admin: 01/18/18 03:52 Dose: Not Given Insulin Aspart (Novolog Vial Sliding Scale -) 1 vial SQ ACHS [facility]; Protocol Last Admin: 01/18/18 06:15 Dose: Not Given Latanoprost (Xalatan 0.005% Eye Drops -) 1 drop OD HS [facility] Last Admin: 01/17/18 23:06 Dose: Not Given Levothyroxine Sodium (Synthroid Injection -) 37.5 mcg IVPUSH DAILY [facility] Ondansetron HCl (Zofran Injection) 4 mg IVPUSH Q6H PRN PRN Reason: NAUSEA AND/OR VOMITING Last Admin: 01/17/18 09:12 Dose: 4 mg - Objective Vital Signs: Vital Signs Temperature 97 F L 01/18/18 12:45 Pulse Rate 61 01/18/18 13:50 Respiratory Rate 18 01/18/18 13:50 Blood Pressure 112/69 01/18/18 13:50 O2 Sat by Pulse Oximetry (%) 95 01/18/18 09:00 Constitutional: Yes: No Distress, Calm Cardiovascular: Yes: Regular Rate and Rhythm Respiratory: Yes: Regular, CTA Bilaterally Gastrointestinal: Yes: Hypoactive Bowel Sounds Musculoskeletal: Yes: WNL Extremities: Yes: Other Wound/Incision: Yes: Dressing Dry and Intact Neurological: Yes: Alert, Oriented Psychiatric: Yes: Alert, Oriented Labs: CBC, BMP 01/18/18 12:50 01/18/18 12:50 INR, PTT INR 2.16 (0.83-1.09) H 01/17/18 22:00 Assessment/Plan Problem List - Problems (1) Gangrene of foot Code(s): I96 - GANGRENE, NOT ELSEWHERE CLASSIFIED (2) Atrial fibrillation Code(s): I48.91 - UNSPECIFIED ATRIAL FIBRILLATION Qualifiers: Atrial fibrillation type: permanent Qualified Code(s): I48.2 - Chronic atrial fibrillation (3) Cardiomyopathy Code(s): I42.9 - CARDIOMYOPATHY, UNSPECIFIED Qualifiers: Cardiomyopathy type: unspecified Qualified Code(s): I42.9 - Cardiomyopathy , unspecified (4) Chronic anticoagulation Code(s): Z79.01 - ALF (CURRENT) USE OF 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 (5) Diabetes mellitus Code(s): E11.9 - TYPE 2 DIABETES MELLITUS WITHOUT COMPLICATIONS Qualifiers: Diabetes mellitus type: type 2 Diabetes mellitus medical terminologist insulin use: with fdc use Diabetes mellitus complication detail: with peripheral angiopathy with gangrene (6) ESRD (end stage renal disease) Code(s): N18.6 - END STAGE RENAL DISEASE (7) Hypothyroid Code(s): E03.9 - HYPOTHYROIDISM, UNSPECIFIED Qualifiers: Hypothyroidism type: unspecified Qualified Code(s): E03.9 - Hypothyroidism , unspecified (8) ICD (implantable cardioverter-defibrillator) in place Code(s): Z95.810 - PRESENCE OF AUTOMATIC (IMPLANTABLE) CARDIAC DEFIBRILLATOR (9) Open wound of foot Code(s): S91.309A - UNSPECIFIED OPEN WOUND, UNSPECIFIED FOOT, INITIAL ENCOUNTER Qualifiers: Encounter type: subsequent encounter Laterality: right Qualified Code(s) : S91.301D - Unspecified open wound, right foot, subsequent encounter (10) Pericardial effusion Code(s): I31.3 - PERICARDIAL EFFUSION (NONINFLAMMATORY) (12) Status post peripheral artery angioplasty Code(s): Z98.62 - PERIPHERAL VASCULAR ANGIOPLASTY STATUS (13) Status post transmetatarsal amputation of right foot Code(s): Z89.431 - ACQUIRED ABSENCE OF RIGHT FOOT plan continue abx during dialysis wound care final plan needed surgery plan
--- NOTE | 2018-01-18 15:53 | PN ---
Progress Note, Physician History of Present Illness: Pt seen and examined at bedside. He is awake and alert. He is tolerating HD. - Current Medication List Current Medications: Active Medications Acetaminophen (Ofirmev Injection -) 1,000 mg IVPB Q6H PRN PRN Reason: PAIN Sodium Chloride (Normal Saline -) 1,000 mls @ 50 mls/hr IV ASDIR [facility] Stop: 01/19/18 01:25 Last Admin: 01/18/18 03:52 Dose: Not Given Insulin Aspart (Novolog Vial Sliding Scale -) 1 vial SQ ACHS [facility]; Protocol Last Admin: 01/18/18 06:15 Dose: Not Given Latanoprost (Xalatan 0.005% Eye Drops -) 1 drop OD HS [facility] Last Admin: 01/17/18 23:06 Dose: Not Given Levothyroxine Sodium (Synthroid Injection -) 37.5 mcg IVPUSH DAILY [facility] Ondansetron HCl (Zofran Injection) 4 mg IVPUSH Q6H PRN PRN Reason: NAUSEA AND/OR VOMITING Last Admin: 01/17/18 09:12 Dose: 4 mg - Objective Vital Signs: Vital Signs Temperature 97 F L 01/18/18 12:45 Pulse Rate 66 01/18/18 14:20 Respiratory Rate 18 01/18/18 14:20 Blood Pressure 108/68 01/18/18 14:20 O2 Sat by Pulse Oximetry (%) 95 01/18/18 09:00 Constitutional: Yes: Calm Eyes: Yes: Conjunctiva Clear HENT: Yes: Atraumatic Neck: Yes: Supple Cardiovascular: Yes: S1, S2 Respiratory: Yes: CTA Bilaterally, On Nasal O2 Gastrointestinal: Yes: Soft Edema: Yes Edema: LLE: 1+, RLE: 1+ Wound/Incision: Yes: Dressing Dry and Intact Neurological: Yes: Oriented Psychiatric: Yes: Oriented Labs: CBC, BMP 01/18/18 12:50 01/18/18 12:50 INR, PTT INR 2.16 (0.83-1.09) H 01/17/18 22:00 Problem List - Problems (1) Gangrene of foot Code(s): I96 - GANGRENE, NOT ELSEWHERE CLASSIFIED (2) Anemia Code(s): D64.9 - ANEMIA, UNSPECIFIED Qualifiers: Anemia type: due to chronic kidney disease (3) ESRD (end stage renal disease) Code(s): N18.6 - END STAGE RENAL DISEASE Assessment/Plan Current Medications Generic Name Dose Route Start Last Admin Trade Name Freq PRN Reason Stop Dose Admin Acetaminophen 1,000 mg 01/18/18 12:00 Ofirmev Injection - IVPB Q6H PRN PAIN Sodium Chloride 1,000 mls @ 50 mls/hr 01/18/18 01:30 01/18/18 03:52 Normal Saline - IV 01/19/18 01:25 Not Given ASDIR [facility] Insulin Aspart 1 vial 01/18/18 07:00 01/18/18 06:15 Novolog Vial Sliding Scale - SQ Not Given ACHS [facility] Protocol Latanoprost 1 drop 01/17/18 22:00 01/17/18 23:06 Xalatan 0.005% Eye Drops - OD Not Given HS [facility] Levothyroxine Sodium 37.5 mcg 01/18/18 10:00 Synthroid Injection - IVPUSH DAILY [facility] Ondansetron HCl 4 mg 01/17/18 09:05 01/17/18 09:12 Zofran Injection IVPUSH 4 mg Q6H PRN Administration NAUSEA AND/OR VOMITING Impression 1. ESRD 2. hx pericardial effusion 3. hx pneumopericardium 4. hypothyroidism 5. a-fib 6. hypotension 7. hx of colon cancer 8. CHF 9. DM 10. hx of PE 11. CAD 12. right stump infection Plan - HD today - do not give fluids - renal diet - vascular surgery for OR date - cont wound care - epogen for anemia Dr Conklin
[2018-01-18] MEDS: LEVOTHYROXINE SODIUM 100 MCG VIAL IVPUSH SCH (17:59)
[2018-01-18 19:08] LABS: CREATININE 2.4 mg/dL (0.55-1.3)
--- NOTE | 2018-01-18 20:04 | CON.GI ---
Consult Consult Specialty:: Gastroenterology Referred by:: Dr Schulte Reason for Consultation:: SBO - History of Present Illness Chief Complaint: Abdominal pain and distension History of Present Illness: 72M was admitted with vascular compromise of his foot following a transmetatarsal amputation and is scheduled for a BKA tomorrow. He developed abdominal pain and distension yesterday but denies vomiting. CT scan revealed distended bowel loops suggetsive of SBO vs ileus. Today his distension and pain resolved but he has not passed flatus. He has no appetite. He is s/p colon resection at [facility] in 2006 for colon cancver and had subsequent chemotherapy. He was followed by my former partner Dr Bustillo when he presented with bleeding to [facility] in 07/29. The EGD in 2016 revealed mild gastritis but the colonoscopy revealed angiodysplasias. He had a negative capsule small bowel endoscopy subsequently which did reveal an antral erosion. He required 4 units of blood at that time. He denies constipation or recent rectal bleeding. 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: Peripheral Neuropathy Cardio/Vascular: Yes: AFIB, CAD (cardiomyopathy), CHF, Hyperlipdemia, Other ( PPM and AICD) Pulmonary: Yes: COPD, Pulmonary Embolus Gastrointestinal: Yes: Cancer (Colon cancer resected 2006 at [facility] where chemo was also given), Gastritis, Other (colon angiodysplasia) Hepatobiliary: Yes: Other (hepatomegaly, likely congestive) Renal/: Yes: Renal Failure, Hemodialysis (for 18 months) Musculoskeletal: Yes: Other (RIGHT ANKLE/FOOT PAIN 10/10 WITH RIGHT LATERAL METATARSAL ULCER W DRAINAGE) Endocrine: Yes: Diabetes Mellitus - Past Surgical History Past Surgical History: Yes: AICD, Amputation (right transmetatarsal), AV Fistula /Graft (RUE), Cataract Removal (right), Colectomy (for colon cancer 2006), Colonoscopy, Upper Endoscopy - Alcohol/Substance Use Hx Alcohol Use: Yes (abused alcohol unitl 1981) History of Substance Use: reports: Cocaine (used to smoke cocaine) - Smoking History Smoking history: Former smoker Have you smoked in the past 12 months: No If you are a former smoker, when did you quit?: 1981 - Social History Usual Living Arrangement: With Spouse ADL: Support Services 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 History of Recent Travel: No Home Medications - Allergies Allergies/Adverse Reactions: Allergies Allergy/AdvReac Type Severity Reaction Status Date / Time No Known Drug Allergies Allergy Verified 01/16/18 14:24 - Home Medications Home Medications: Ambulatory Orders Clopidogrel Bisulfate [Plavix -] 75 mg PO DAILY 09/11/17 Glucosamine Sulfate Dipot Chlr [Glucosamine] 500 mg PO DAILY 09/11/17 Levothyroxine [Synthroid -] 75 mcg PO DAILY 09/11/17 Melatonin 5 mg PO HS PRN 09/11/17 Oxycodone HCl/Acetaminophen [Percocet 5-325 mg Tablet] 1 tab PO Q8H PRN Sacubitril/Valsartan [Entresto 24 mg-26 mg Tablet] 1 each PO BID 09/11/17 Sennosides [Senna -] 2 tab PO HS 09/11/17 Thiamine HCl [B-1] 100 mg PO DAILY 09/11/17 Acetaminophen [Tylenol .Regular Strength -] 325 mg PO Q8H PRN tablet 09/18/17 Metoprolol Succinate [Toprol XL -] 12.5 mg PO DAILY tab.sr.24h 09/18/17 Sitagliptin Phosphate [Januvia -] 25 mg PO 0700 tab 09/18/17 Warfarin Na [Coumadin -] 6 mg PO DAILY@1800 tablet 09/18/17 Insulin Aspart [Novolog] 100 unit SQ BID 10/04/17 Latanoprost 0.005% Eye Drops [Xalatan 0.005% Eye Drops -] 1 drop HS 11/29/17 Vitamin B Comp W-C [Nephro-Fer -] 0.8 mg PO DAILY 11/29/17 Polyethylene Glycol 3350 [Miralax 119 gm Btl -] 17 gm PO BID 12/26/17 Clopidogrel Bisulfate [Plavix] 75 mg PO DAILY 30 Days #30 tablet 01/08/18 Hydromorphone HCl [Dilaudid] 8 mg PO 5XD PRN 7 Days #35 tablet MDD 5 tabs Melatonin 10 mg PO HS PRN tab 01/08/18 Mineral Oil/Petrolat,Wht/Water [Eucerin (Large Jar) -] 1 applic TP BID PRN jar 01/08/18 Vancomycin 1 Gram (Pre-Docked) [Vancomycin (Pre-Docked)] 1,000 mg IVPB TuThSa@ 1000 bag 01/08/18 Warfarin Sodium [Coumadin] 6 mg PO DAILY 30 Days #30 tablet 01/08/18 metroNIDAZOLE [Flagyl -] 500 mg PO TID tablet 01/08/18 Family Disease History - Family Disease History Family Disease History: Diabetes: Mother (possible colon cancer), CA: Mother, Other: Father ( cerebral aneurysm hemorrhage) Review of Systems - Review of Systems Constitutional: reports: Chills, Fever, Unintentional Wgt. Loss Eyes: reports: Blurred Vision HENT: reports: No Symptoms Cardiovascular: reports: Palpitations Respiratory: reports: Exercise Intolerance, SOB on Exertion Gastrointestinal: reports: Abdominal Pain, Bloating Physical Exam-GI Vital Signs: Vital Signs Temperature 97.3 F L 01/18/18 16:50 Pulse Rate 63 01/18/18 17:00 Respiratory Rate 18 01/18/18 17:00 Blood Pressure 107/75 01/18/18 17:00 O2 Sat by Pulse Oximetry (%) 95 01/18/18 09:00 CBC,CMP WBC 4.7 K/mm3 (4.0-10.0) 01/18/18 12:50 RBC 3.32 M/mm3 (4.00-5.60) L 01/18/18 12:50 Hgb 10.2 GM/dL (11.7-16.9) L 01/18/18 12:50 Hct 30.6 % (35.4-49) L 01/18/18 12:50 MCV 92.2 fl (80-96) 01/18/18 12:50 MCH 30.8 pg (25.7-33.7) 01/18/18 12:50 MCHC 33.4 g/dl (32.0-35.9) 01/18/18 12:50 RDW 23.7 % (11.9-15.9) H 01/18/18 12:50 Plt Count 234 K/MM3 (134-434) 01/18/18 12:50 MPV 9.5 fl (7.5-11.1) 01/18/18 12:50 Absolute Neuts (auto) 4.4 K/mm3 (1.5-8.0) 01/17/18 23:43 Neutrophils % 81.5 % (42.8-82.8) 01/17/18 23:43 Lymphocytes % 5.0 % (8-40) L D 01/17/18 23:43 Monocytes % 11.1 % (3.8-10.2) H 01/17/18 23:43 Eosinophils % 0.4 % (0-4.5) 01/17/18 23:43 Basophils % 2.0 % (0-2.0) D 01/17/18 23:43 Nucleated RBC % 0 % (0-0) 01/17/18 23:43 Hypochromia 0 01/17/18 23:43 Platelet Estimate Normal 01/17/18 23:43 Platelet Comment Giant platelets 01/16/18 17:25 Polychromasia 0 01/17/18 23:43 Poikilocytosis 1+ 01/17/18 23:43 Anisocytosis 2+ 01/17/18 23:43 Microcytosis 0 01/17/18 23:43 Macrocytosis 2+ 01/17/18 23:43 Sodium 127 mmol/L (136-145) L 01/18/18 12:50 Potassium 3.4 mmol/L (3.5-5.1) L 01/18/18 12:50 Chloride 90 mmol/L (98-107) L 01/18/18 12:50 Carbon Dioxide 25 mmol/L (21-32) 01/18/18 12:50 Anion Gap 13 MMOL/L (8-16) 01/18/18 12:50 BUN 8 mg/dL (7-18) 01/18/18 17:20 Creatinine 2.4 mg/dL (0.55-1.3) H 01/18/18 17:20 Creat Clearance w eGFR 10.99 (>60) 01/18/18 12:50 POC Glucometer 109 UNITS (80-120) 01/18/18 18:04 Random Glucose 129 mg/dL (74-106) H 01/18/18 12:50 Lactic Acid 2.7 mmol/L (0.4-2.0) H* 01/17/18 23:43 Calcium 9.3 mg/dL (8.5-10.1) 01/18/18 12:50 Phosphorus 2.8 mg/dL (2.5-4.9) 01/17/18 06:36 Magnesium 2.0 mg/dL (1.8-2.4) 01/17/18 06:36 Total Bilirubin 1.1 mg/dL (0.2-1) H 01/18/18 12:50 AST 24 U/L (15-37) 01/18/18 12:50 ALT 11 U/L (13-61) L 01/18/18 12:50 Alkaline Phosphatase 138 U/L (45-117) H 01/18/18 12:50 Troponin I < 0.02 ng/ml (0.00-0.05) 01/17/18 23:43 B-Natriuretic Peptide > 835626.0 pg/ml (5-125) H 01/16/18 17:25 Total Protein 7.7 g/dl (6.4-8.2) 01/18/18 12:50 Albumin 3.0 g/dl (3.4-5.0) L 01/18/18 12:50 Current Medications Generic Name Dose Route Start Last Admin Trade Name Freq PRN Reason Stop Dose Admin Acetaminophen 1,000 mg 01/18/18 12:00 Ofirmev Injection - IVPB Q6H PRN PAIN Insulin Aspart 1 vial 01/18/18 07:00 01/18/18 18:04 Novolog Vial Sliding Scale - SQ Not Given ACHS VIRAJ Protocol Latanoprost 1 drop 01/17/18 22:00 01/17/18 23:06 Xalatan 0.005% Eye Drops - OD Not Given HS VIRAJ Levothyroxine Sodium 37.5 mcg 01/18/18 10:00 01/18/18 17:59 Synthroid Injection - IVPUSH 37.5 mcg DAILY VIRAJ Administration Ondansetron HCl 4 mg 01/17/18 09:05 01/17/18 09:12 Zofran Injection IVPUSH 4 mg Q6H PRN Administration NAUSEA AND/OR VOMITING Constitutional: Yes: Calm Eyes: Yes: Conjunctiva Clear HENT: Yes: Atraumatic Neck: Yes: Supple Cardiovascular: Yes: Pulse Irregular, Other (left PPM/AICD) Respiratory: Yes: CTA Bilaterally Gastrointestinal Inspection: Yes: Scars (vertical midline periumbilical incision with nontender hernia) ...Auscultate: Yes: Hypoactive Bowel Sounds ...Palpate: Yes: Soft, Other (nontender) ...Percussion: Yes: Tympanitic ...Rectal Exam: Yes: Deferred (declined) Labs: CBC, BMP 01/18/18 12:50 01/18/18 17:20 INR, PTT INR 2.16 (0.83-1.09) H 01/17/18 22:00 Imaging - Results Cat Scan: Image Reviewed (SBO vs ileus, hepatomegaly) Problem List - Problems (1) Small bowel obstruction due to adhesions Assessment/Plan: Given the rapid resolution without NG suctioning it is difficult to ascertain as to whether this is a resolving SBO vs an ileus. Will not try to advance diet until after his BKA tomorrow. Will repeat FUA in AM. Code(s): K56.50 - INTESTNL ADHESIONS, UNSP TO PARTIAL VERSUS COMPLETE OBST (2) Ileus Code(s): K56.7 - ILEUS, UNSPECIFIED (3) Gangrene of foot Code(s): I96 - GANGRENE, NOT ELSEWHERE CLASSIFIED (4) Atrial fibrillation Code(s): I48.91 - UNSPECIFIED ATRIAL FIBRILLATION Qualifiers: Atrial fibrillation type: permanent Qualified Code(s): I48.2 - Chronic atrial fibrillation (5) Chronic kidney disease on chronic dialysis Code(s): N18.6 - END STAGE RENAL DISEASE; Z99.2 - DEPENDENCE ON RENAL DIALYSIS (6) Gangrene of toe of right foot Code(s): I96 - GANGRENE, NOT ELSEWHERE CLASSIFIED (7) ICD (implantable cardioverter-defibrillator) in place Code(s): Z95.810 - PRESENCE OF AUTOMATIC (IMPLANTABLE) CARDIAC DEFIBRILLATOR (8) History of malignant neoplasm of colon in adulthood Code(s): Z85.038 - PERSONAL HISTORY OF MALIGNANT NEOPLASM OF LARGE INTESTINE Assessment/Plan Resolving SBO vs ileus Personal h/o colon cancer
[2018-01-18] MEDS: LATANOPROST 0.005% OPHTH SOLN 2.5ML BOTTLE OD SCH ×2 (22:36→23:02)
[2018-01-19] MEDS: INSULIN SLIDING SCALE (NOVOLOG) 1 VIAL SQ SCH ×4 (06:05→22:02)
[2018-01-19 08:17] LABS: BASO % 0.7 % (0-2.0); EOS % 0.2 % (0-4.5); HEMATOCRIT 33.3 % (35.4-49); HEMOGLOBIN 10.2 GM/dL (11.7-16.9); LYMPH % 7.6 % (8-40); MCH 29.2 pg (25.7-33.7); MCHC 30.7 g/dl (32.0-35.9); MEAN CELL VOLUME 95.2 fl (80-96); MEAN PLT VOLUME 9.4 fl (7.5-11.1); MONO % 19.5 % (3.8-10.2); PLATELET COUNT 205 K/MM3 (134-434); RDW 24.2 % (11.9-15.9); WHITE BLOOD COUNT 5.4 K/mm3 (4.0-10.0)
[2018-01-19 08:37] LABS: ALBUMIN 2.2 g/dl (3.4-5.0); ALK PHOS 132 U/L (45-117); ANION GAP 17 MMOL/L (8-16); BILIRUBIN,TOTAL 1.1 mg/dL (0.2-1); BLOOD UREA NITROGEN 16 mg/dL (7-18); CHLORIDE 93 mmol/L (98-107); CO2 23 mmol/L (21-32); CREATININE 3.9 mg/dL (0.55-1.3); GLUCOSE,RANDOM 104 mg/dL (74-106); POTASSIUM 3.5 mmol/L (3.5-5.1); SGOT/AST 24 U/L (15-37); SGPT/ALT 12 U/L (13-61); SODIUM 133 mmol/L (136-145); TOT PROT 7.8 g/dl (6.4-8.2)
[2018-01-19 09:01] LABS: INR 2.16 (0.83-1.09); PROTHROMBIN TIME (PATIENT) 25.7 SEC (9.7-13.0)
[2018-01-19 09:37] LABS: CALCIUM 9.4 mg/dL (8.5-10.1)
[2018-01-19] MEDS ORDERED: PT OWN MED DRAWER 7, Y5N ONE (09:46)
[2018-01-19] MEDS: LEVOTHYROXINE SODIUM 100 MCG VIAL IVPUSH SCH (10:02)
--- NOTE | 2018-01-19 11:08 | PN ---
Progress Note, Physician History of Present Illness: Patient has continued abd pain, marginal improvement with NGT since d/alirio, CT scan interpreted as distal SBO at anastamotic site, denies BM or flatus. Candy Cutter Hand: Dr. Ghassan uDrant - Current Medication List Current Medications: Active Medications Acetaminophen (Ofirmev Injection -) 1,000 mg IVPB Q6H PRN PRN Reason: PAIN Insulin Aspart (Novolog Vial Sliding Scale -) 1 vial SQ ACHS VIRAJ; Protocol Last Admin: 01/19/18 06:05 Dose: Not Given Latanoprost (Xalatan 0.005% Eye Drops -) 1 drop OD HS VIRAJ Last Admin: 01/18/18 23:02 Dose: 1 drop Levothyroxine Sodium (Synthroid Injection -) 37.5 mcg IVPUSH DAILY VIRAJ Last Admin: 01/19/18 10:02 Dose: 37.5 mcg Ondansetron HCl (Zofran Injection) 4 mg IVPUSH Q6H PRN PRN Reason: NAUSEA AND/OR VOMITING Last Admin: 01/17/18 09:12 Dose: 4 mg - Objective Vital Signs: Vital Signs Temperature 97.4 F L 01/19/18 10:00 Pulse Rate 68 01/19/18 10:00 Respiratory Rate 20 01/19/18 10:00 Blood Pressure 114/56 L 01/19/18 10:00 O2 Sat by Pulse Oximetry (%) 100 01/19/18 09:00 Constitutional: Yes: No Distress, Calm, Thin Neck: Yes: Supple Cardiovascular: Yes: Regular Rate and Rhythm Respiratory: Yes: Regular, Diminished, On Nasal O2 Gastrointestinal: Yes: Distention, Tenderness Edema: Yes Edema: LLE: 1+, RLE: 1+ Labs: CBC, BMP 01/19/18 07:00 01/19/18 07:00 INR, PTT INR 2.16 (0.83-1.09) H 01/19/18 07:00 - ....Imaging X-ray: Report Reviewed (SBO) Problem List - Problems (1) Gangrene of foot Code(s): I96 - GANGRENE, NOT ELSEWHERE CLASSIFIED (2) Atrial fibrillation Code(s): I48.91 - UNSPECIFIED ATRIAL FIBRILLATION Qualifiers: Qualified Code(s): I48.2 - Chronic atrial fibrillation (3) Cardiomyopathy Code(s): I42.9 - CARDIOMYOPATHY, UNSPECIFIED Qualifiers: Qualified Code(s): I42.9 - Cardiomyopathy, unspecified (4) Chronic anticoagulation Code(s): Z79.01 - SKILLED NURSING (CURRENT) USE OF 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 (5) Diabetes mellitus Code(s): E11.9 - TYPE 2 DIABETES MELLITUS WITHOUT COMPLICATIONS Qualifiers: Qualified Code(s): E11.52 - Type 2 diabetes mellitus with diabetic peripheral angiopathy with gangrene; Z79.4 - oil heaterman (current) use of insulin (6) ESRD (end stage renal disease) Code(s): N18.6 - END STAGE RENAL DISEASE (7) Hypothyroid Code(s): E03.9 - HYPOTHYROIDISM, UNSPECIFIED Qualifiers: Qualified Code(s): E03.9 - Hypothyroidism, unspecified (8) ICD (implantable cardioverter-defibrillator) in place Code(s): Z95.810 - PRESENCE OF AUTOMATIC (IMPLANTABLE) CARDIAC DEFIBRILLATOR (9) Open wound of foot Code(s): S91.309A - UNSPECIFIED OPEN WOUND, UNSPECIFIED FOOT, INITIAL ENCOUNTER Qualifiers: Qualified Code(s): S91.301D - Unspecified open wound, right foot, subsequent encounter (10) Pericardial effusion Code(s): I31.3 - PERICARDIAL EFFUSION (NONINFLAMMATORY) (11) Pre-operative cardiovascular examination Code(s): Z01.810 - ENCOUNTER FOR PREPROCEDURAL CARDIOVASCULAR EXAMINATION (12) Status post peripheral artery angioplasty Code(s): Z98.62 - PERIPHERAL VASCULAR ANGIOPLASTY STATUS (13) Status post transmetatarsal amputation of right foot Code(s): Z89.431 - ACQUIRED ABSENCE OF RIGHT FOOT Assessment/Plan 09/12/2017 Echo: Moderate pericardial effusion, no tamponade, mildly dilated LV with severely decreased LV fxn, mild-mod dilated RV with severely decreased RV fxn, mod-severe MUKUL, mild MR, mild-mod TR, mild AR 10/05/2017 Echo: Moderately dilated with severely decreased LV fxn, RV dilated with severely decreased RV fxn, mod LAE, mild MR, mod TR, mild AR, mod pericardial effusion similar to previous 1. Pre-operative cardiovascular evaluation 2. Peripheral artery disease, gangrene right forefoot post right tibial revacularization and debridement of bone and soft tissue post Chopart level amputation right foot, now planned for right BKA 3. Distal SBO 4. Ischemic dilated cardiomyopathy with chronic class I-II NYHA classification LV failure, compensated/euvolemic, post prophylactic ICD implant 5. CAD post TX with history of demand ischemic injury angina pectoris, clinically stable 6. Persistent atrial fibrillation [id number] score of 3-4 off Coumadin pre-op 7. Pericardial effusion probably uremic pericarditis, moderate to large in severity/no tamponade 8. Diabetes mellitus 9. Hypothyroidism 10. History of PTE 11. ESRD 12. History of colon cancer PLAN: 1. Empiric antibiotic course as per ID 2. HD as per renal service, replete K 3. Hold Plavix and Coumadin pre-op, heparin gtt once INR<2.0 with close monitoring of CBC 4. NGT decompression, patient being considered for transfer to surgery service at [facility] 5. Resume Toprol XL 12.5 qd and Entresto 24/26 bid once able to tolerate oral 6. Given absence of symptoms of acute coronary syndrome, decompensated CHF or malignant arrhythmia, may proceed with surgical intervention and JOSSIE from CV- standpoint once INR is acceptable Candy Cutter Hand: Dr. Ghassan Durant
--- NOTE | 2018-01-19 11:39 | PN ---
Progress Note (short form) - Note Progress Note: 72 y/o male found sitting in WC with O2 in place. Pt reports continued abdominal pain. No gas or BM. CBC, BMP 01/19/18 07:00 01/19/18 07:00 Vital Signs Period Temp Pulse Resp BP Sys/Yoon Pulse Ox Last 24 Hr 97 F-97.9 F 61-94 18-20 100-117/54-75 100-100 HEENT- Normocephalic Neck-Supple Lungs- CTAB Heart- S1/S2 Abd- distended, tender on palpation Ext- No LE edema Active Medications Acetaminophen (Ofirmev Injection -) 1,000 mg IVPB Q6H PRN PRN Reason: PAIN Insulin Aspart (Novolog Vial Sliding Scale -) 1 vial SQ ACHS VIRAJ; Protocol Last Admin: 01/19/18 06:05 Dose: Not Given Latanoprost (Xalatan 0.005% Eye Drops -) 1 drop OD HS VIRAJ Last Admin: 01/18/18 23:02 Dose: 1 drop Levothyroxine Sodium (Synthroid Injection -) 37.5 mcg IVPUSH DAILY VIRAJ Last Admin: 01/19/18 10:02 Dose: 37.5 mcg Ondansetron HCl (Zofran Injection) 4 mg IVPUSH Q6H PRN PRN Reason: NAUSEA AND/OR VOMITING Last Admin: 01/17/18 09:12 Dose: 4 mg assessment / plan #s/p right TMA 01/03/18 non healing will need RT BKA after sbo addressed Known to have chronic pericardial effusion Known osteomyelitis #SBO GI consult appreciated #s/p Previous RLE gangrene of toes 2-5 s/p amputation #osteomyelitis #hyponatremia ( Na 133) #PVD PLavix on hold last dose day prior to admission #CKD5 on chronic HD (T/T/S) #DM on insulin / sliding scale # a fib -- a/c on coumadin Coumadin on hold PT/INR elevated #CAD #Cardiomyopathy s/p ICD #hypothyroid PO synthroid changed to IV #HF -- echo done last admission had cardiac clearance 01/01/18 #anemia of chronic disease # hx of pericardial effusion -moderate / chronic >6 months hx of colon ca s/p resection hx of PE - on a/c hx of pneumopericardium Plan- RT BKA cancelled for today. Contacted transfer center and Dr. Lawler at [facility] for possible transfer for SBO. accepted patient pending CM review. Patient informed and agreed to all of above. Transfer forms completed. Problem List - Problems (1) Gangrene of foot Code(s): I96 - GANGRENE, NOT ELSEWHERE CLASSIFIED (2) Open wound of foot Code(s): S91.309A - UNSPECIFIED OPEN WOUND, UNSPECIFIED FOOT, INITIAL ENCOUNTER Qualifiers: Encounter type: subsequent encounter Laterality: right Qualified Code(s) : S91.301D - Unspecified open wound, right foot, subsequent encounter (3) Anemia Code(s): D64.9 - ANEMIA, UNSPECIFIED Qualifiers: Anemia type: due to chronic kidney disease (4) Atrial fibrillation Code(s): I48.91 - UNSPECIFIED ATRIAL FIBRILLATION Qualifiers: Atrial fibrillation type: permanent Qualified Code(s): I48.2 - Chronic atrial fibrillation (5) Cardiomyopathy Code(s): I42.9 - CARDIOMYOPATHY, UNSPECIFIED Qualifiers: Cardiomyopathy type: unspecified Qualified Code(s): I42.9 - Cardiomyopathy , unspecified (6) Chronic kidney disease (CKD), stage V Code(s): N18.5 - CHRONIC KIDNEY DISEASE, STAGE 5 (7) Chronic kidney disease on chronic dialysis Code(s): N18.6 - END STAGE RENAL DISEASE; Z99.2 - DEPENDENCE ON RENAL DIALYSIS (8) Diabetes mellitus Code(s): E11.9 - TYPE 2 DIABETES MELLITUS WITHOUT COMPLICATIONS Qualifiers: Diabetes mellitus type: type 2 Diabetes mellitus senior living insulin use: with senior living use Diabetes mellitus complication detail: with peripheral angiopathy with gangrene (9) HTN (hypertension) Code(s): I10 - ESSENTIAL (PRIMARY) HYPERTENSION Qualifiers: Hypertension type: essential hypertension Qualified Code(s): I10 - Essential (primary) hypertension (10) Hypotension Code(s): I95.9 - HYPOTENSION, UNSPECIFIED Qualifiers: Hypotension type: other hypotension type Qualified Code(s): I95.89 - Other hypotension (11) Hypothyroid Code(s): E03.9 - HYPOTHYROIDISM, UNSPECIFIED Qualifiers: Hypothyroidism type: unspecified Qualified Code(s): E03.9 - Hypothyroidism , unspecified (12) ICD (implantable cardioverter-defibrillator) in place Code(s): Z95.810 - PRESENCE OF AUTOMATIC (IMPLANTABLE) CARDIAC DEFIBRILLATOR (13) Osteomyelitis Code(s): M86.9 - OSTEOMYELITIS, UNSPECIFIED Qualifiers: Osteomyelitis type: other Osteomyelitis location: foot Laterality: right Qualified Code(s): M86.8X7 - Other osteomyelitis, ankle and foot (14) Pericardial effusion Code(s): I31.3 - PERICARDIAL EFFUSION (NONINFLAMMATORY) (15) Status post peripheral artery angioplasty Code(s): Z98.62 - PERIPHERAL VASCULAR ANGIOPLASTY STATUS (16) Status post transmetatarsal amputation of right foot Code(s): Z89.431 - ACQUIRED ABSENCE OF RIGHT FOOT
--- NOTE | 2018-01-19 14:00 | PN ---
Progress Note, Physician History of Present Illness: patient c/o of abd pain gi note noted - Current Medication List Current Medications: Active Medications Acetaminophen (Ofirmev Injection -) 1,000 mg IVPB Q6H PRN PRN Reason: PAIN Insulin Aspart (Novolog Vial Sliding Scale -) 1 vial SQ ACHS [facility]; Protocol Last Admin: 01/19/18 11:42 Dose: Not Given Latanoprost (Xalatan 0.005% Eye Drops -) 1 drop OD HS [facility] Last Admin: 01/18/18 23:02 Dose: 1 drop Levothyroxine Sodium (Synthroid Injection -) 37.5 mcg IVPUSH DAILY [facility] Last Admin: 01/19/18 10:02 Dose: 37.5 mcg Ondansetron HCl (Zofran Injection) 4 mg IVPUSH Q6H PRN PRN Reason: NAUSEA AND/OR VOMITING Last Admin: 01/17/18 09:12 Dose: 4 mg - Objective Vital Signs: Vital Signs Temperature 98.0 F 01/19/18 11:34 Pulse Rate 69 01/19/18 11:34 Respiratory Rate 18 01/19/18 11:34 Blood Pressure 114/61 01/19/18 11:34 O2 Sat by Pulse Oximetry (%) 100 01/19/18 09:00 Constitutional: Yes: Calm, Moderate Distress Cardiovascular: Yes: Regular Rate and Rhythm Respiratory: Yes: Regular, CTA Bilaterally Gastrointestinal: Yes: Soft, Hypoactive Bowel Sounds, Other (abd pain) Musculoskeletal: Yes: WNL Extremities: Yes: Other Neurological: Yes: Alert, Oriented Psychiatric: Yes: Alert, Oriented Labs: CBC, BMP 01/19/18 07:00 01/19/18 07:00 INR, PTT INR 2.16 (0.83-1.09) H 01/19/18 07:00 - ....Imaging X-ray: Report Reviewed, Image Reviewed Assessment/Plan Problem List - Problems (1) Gangrene of foot Code(s): I96 - GANGRENE, NOT ELSEWHERE CLASSIFIED (2) Atrial fibrillation Code(s): I48.91 - UNSPECIFIED ATRIAL FIBRILLATION Qualifiers: Atrial fibrillation type: permanent Qualified Code(s): I48.2 - Chronic atrial fibrillation (3) Cardiomyopathy Code(s): I42.9 - CARDIOMYOPATHY, UNSPECIFIED Qualifiers: Cardiomyopathy type: unspecified Qualified Code(s): I42.9 - Cardiomyopathy , unspecified (4) Chronic anticoagulation Code(s): Z79.01 - FDC (CURRENT) USE OF 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 (5) Diabetes mellitus Code(s): E11.9 - TYPE 2 DIABETES MELLITUS WITHOUT COMPLICATIONS Qualifiers: Diabetes mellitus type: type 2 Diabetes mellitus termite inspector insulin use: with termite inspector use Diabetes mellitus complication detail: with peripheral angiopathy with gangrene (6) ESRD (end stage renal disease) Code(s): N18.6 - END STAGE RENAL DISEASE (7) Hypothyroid Code(s): E03.9 - HYPOTHYROIDISM, UNSPECIFIED Qualifiers: Hypothyroidism type: unspecified Qualified Code(s): E03.9 - Hypothyroidism , unspecified (8) ICD (implantable cardioverter-defibrillator) in place Code(s): Z95.810 - PRESENCE OF AUTOMATIC (IMPLANTABLE) CARDIAC DEFIBRILLATOR (9) Open wound of foot Code(s): S91.309A - UNSPECIFIED OPEN WOUND, UNSPECIFIED FOOT, INITIAL ENCOUNTER Qualifiers: Encounter type: subsequent encounter Laterality: right Qualified Code(s) : S91.301D - Unspecified open wound, right foot, subsequent encounter (10) Pericardial effusion Code(s): I31.3 - PERICARDIAL EFFUSION (NONINFLAMMATORY) (12) Status post peripheral artery angioplasty Code(s): Z98.62 - PERIPHERAL VASCULAR ANGIOPLASTY STATUS (13) Status post transmetatarsal amputation of right foot Code(s): Z89.431 - ACQUIRED ABSENCE OF RIGHT FOOT plan continue abx during dialysis rest as per gi
--- NOTE | 2018-01-19 14:14 | PN ---
Progress Note (short form) - Note Progress Note: Pt seen and examined on AM rounds. Continues to have abdominal pain. Denies n/ v. Per primary team pt pulled NG tube overnight. AXR this AM with SBO. On exam R foot wound stable, moderate fibrinous exudate medially, no purulent drainage, no foul odor. Scant serosanguinous drainage. No areas of fluctuance. Will hold off on BKA until SBO has resolved. Pt for likely transfer to tertiary care center for sbo management Pt should f/u with Dr Cope after resolution of SBO for rescheduling Continue daily dressing changes with 4x4, kerlix, sheridan wraps to knee. Continue moisturizing skin to knee in preparation for BKA. d/w attending Dr Cope pt aware and agrees with plan Primary team aware
[2018-01-19] MEDS: ACETAMINOPHEN 1000 MG/100 ML VIAL (NON FORMULARY) IVPB PRN ×2 (14:31→23:11)
[2018-01-19] MEDS: VANCOMYCIN 1 GRAM (PRE-DOCKED) 1,000 MG/250 ML BAG IVPB SCH (14:48)
--- NOTE | 2018-01-19 17:19 | PN ---
Progress Note, Physician History of Present Illness: Pt seen and examined at bedside. He is awake and alert. He was found to have SBO. - Current Medication List Current Medications: Active Medications Acetaminophen (Ofirmev Injection -) 1,000 mg IVPB Q6H PRN PRN Reason: PAIN Last Admin: 01/19/18 14:31 Dose: 1,000 mg Insulin Aspart (Novolog Vial Sliding Scale -) 1 vial SQ ACHS [facility]; Protocol Last Admin: 01/19/18 16:58 Dose: Not Given Latanoprost (Xalatan 0.005% Eye Drops -) 1 drop OD HS [facility] Last Admin: 01/18/18 23:02 Dose: 1 drop Levothyroxine Sodium (Synthroid Injection -) 37.5 mcg IVPUSH DAILY [facility] Last Admin: 01/19/18 10:02 Dose: 37.5 mcg Ondansetron HCl (Zofran Injection) 4 mg IVPUSH Q6H PRN PRN Reason: NAUSEA AND/OR VOMITING Last Admin: 01/17/18 09:12 Dose: 4 mg Vancomycin HCl (Vancomycin (Pre-Docked)) 1,000 mg IVPB WeSa [facility] Last Admin: 01/19/18 14:48 Dose: 1,000 mg - Objective Vital Signs: Vital Signs Temperature 98.0 F 01/19/18 11:34 Pulse Rate 69 01/19/18 11:34 Respiratory Rate 18 01/19/18 11:34 Blood Pressure 114/61 01/19/18 11:34 O2 Sat by Pulse Oximetry (%) 100 01/19/18 09:00 Constitutional: Yes: Mild Distress Eyes: Yes: Conjunctiva Clear Cardiovascular: Yes: S1, S2 Respiratory: Yes: CTA Bilaterally Gastrointestinal: Yes: Tenderness Genitourinary: Yes: WNL Edema: Yes Neurological: Yes: Oriented Psychiatric: Yes: Oriented Labs: CBC, BMP 01/19/18 07:00 01/19/18 07:00 INR, PTT INR 2.16 (0.83-1.09) H 01/19/18 07:00 Problem List - Problems (1) Gangrene of foot Code(s): I96 - GANGRENE, NOT ELSEWHERE CLASSIFIED (2) Anemia Code(s): D64.9 - ANEMIA, UNSPECIFIED Qualifiers: Anemia type: due to chronic kidney disease (3) ESRD (end stage renal disease) Code(s): N18.6 - END STAGE RENAL DISEASE Assessment/Plan Current Medications Generic Name Dose Route Start Last Admin Trade Name [place] PRN Reason Stop Dose Admin Acetaminophen 1,000 mg 01/18/18 12:00 01/19/18 14:31 Ofirmev Injection - IVPB 1,000 mg Q6H PRN Administration PAIN Insulin Aspart 1 vial 01/18/18 07:00 01/19/18 16:58 Novolog Vial Sliding Scale - SQ Not Given ACHS [facility] Protocol Latanoprost 1 drop 01/17/18 22:00 01/18/18 23:02 Xalatan 0.005% Eye Drops - OD 1 drop HS [facility] Administration Levothyroxine Sodium 37.5 mcg 01/18/18 10:00 01/19/18 10:02 Synthroid Injection - IVPUSH 37.5 mcg DAILY [facility] Administration Ondansetron HCl 4 mg 01/17/18 09:05 01/17/18 09:12 Zofran Injection IVPUSH 4 mg Q6H PRN Administration NAUSEA AND/OR VOMITING Vancomycin HCl 1,000 mg 01/19/18 14:00 01/19/18 14:48 Vancomycin (Pre-Docked) IVPB 1,000 mg TuWeSa [facility] Administration Impression 1. ESRD 2. hx pericardial effusion 3. hx pneumopericardium 4. hypothyroidism 5. a-fib 6. hypotension 7. hx of colon cancer 8. CHF 9. DM 10. hx of PE 11. CAD 12. right stump infection 13. SBO Plan - pt due for HD tomorrow - surgery input appreciated - [facility] - will evaluate for HD tomorrow - bka on hold for now - cont wound care - epogen for anemia Dr Conklin
--- NOTE | 2018-01-19 17:45 | PN ---
GI Progress Note Subjective: GI NOte: No vomiting or pain. FUA still reveals SBO. Amputation canceled. Wants to eat - Objective Vital Signs: Vital Signs Temperature 98.0 F 01/19/18 15:00 Pulse Rate 69 01/19/18 15:00 Respiratory Rate 18 01/19/18 15:00 Blood Pressure 116/61 01/19/18 15:00 O2 Sat by Pulse Oximetry (%) 100 01/19/18 09:00 Constitutional: Calm Gastrointestinal Inspection: Yes: Distention ...Auscultate: Yes: Hypoactive Bowel Sounds ...Palpate: Yes: Soft, Other (nontender) Labs: CBC, BMP 01/19/18 07:00 01/19/18 07:00 INR, PTT INR 2.16 (0.83-1.09) H 01/19/18 07:00 Assessment/Plan Resolving SBO vs ileus Trial of liqiuids Dr. Vega is covering this weekend Problem List - Problems (1) Small bowel obstruction due to adhesions Assessment/Plan: SBO vs ileus. Will try clear liquids and Miralax. Code(s): K56.50 - INTESTNL ADHESIONS, UNSP TO PARTIAL VERSUS COMPLETE OBST (2) Ileus Code(s): K56.7 - ILEUS, UNSPECIFIED (3) Gangrene of foot Code(s): I96 - GANGRENE, NOT ELSEWHERE CLASSIFIED (4) Atrial fibrillation Code(s): I48.91 - UNSPECIFIED ATRIAL FIBRILLATION Qualifiers: Atrial fibrillation type: permanent Qualified Code(s): I48.2 - Chronic atrial fibrillation (5) Chronic kidney disease on chronic dialysis Code(s): N18.6 - END STAGE RENAL DISEASE; Z99.2 - DEPENDENCE ON RENAL DIALYSIS (6) Gangrene of toe of right foot Code(s): I96 - GANGRENE, NOT ELSEWHERE CLASSIFIED (7) ICD (implantable cardioverter-defibrillator) in place Code(s): Z95.810 - PRESENCE OF AUTOMATIC (IMPLANTABLE) CARDIAC DEFIBRILLATOR (8) History of malignant neoplasm of colon in adulthood Code(s): Z85.038 - PERSONAL HISTORY OF MALIGNANT NEOPLASM OF LARGE INTESTINE
[2018-01-19] MEDS: POLYETHYLENE GLYCOL 3350 119 GM BTL PO SCH (22:02)
[2018-01-19] MEDS: LATANOPROST 0.005% OPHTH SOLN 2.5ML BOTTLE OD SCH (22:03)
[2018-01-20] MEDS: INSULIN SLIDING SCALE (NOVOLOG) 1 VIAL SQ SCH ×4 (06:20→22:55)
[2018-01-20] MEDS ORDERED: EPOETIN ALFA 3,000 UNIT/1 ML ML SQ ONE (07:12)
[2018-01-20] MEDS ORDERED: SODIUM CHLORIDE 250 ML IV PRN (07:12)
--- NOTE | 2018-01-20 07:29 | PN ---
Progress Note, Physician Chief Complaint: doing ok , no complaints - Current Medication List Current Medications: Active Medications Acetaminophen (Ofirmev Injection -) 1,000 mg IVPB Q6H PRN PRN Reason: PAIN Last Admin: 01/19/18 23:11 Dose: 1,000 mg Albumin Human (Albumin Human 25%) 12.5 gm IVPB Q30M [facility] Epoetin Hector (Procrit -) 3,000 unit SQ ONCE ONE Stop: 01/20/18 07:13 Sodium Chloride (Normal Saline -) 250 mls @ 3,000 mls/hr IV PRN PRN PRN Reason: Hypotension during Dialysis Stop: 01/21/18 07:12 Insulin Aspart (Novolog Vial Sliding Scale -) 1 vial SQ ACHS [facility]; Protocol Last Admin: 01/20/18 06:20 Dose: Not Given Latanoprost (Xalatan 0.005% Eye Drops -) 1 drop OD HS [facility] Last Admin: 01/19/18 22:03 Dose: 1 drop Levothyroxine Sodium (Synthroid Injection -) 37.5 mcg IVPUSH DAILY [facility] Last Admin: 01/19/18 10:02 Dose: 37.5 mcg Ondansetron HCl (Zofran Injection) 4 mg IVPUSH Q6H PRN PRN Reason: NAUSEA AND/OR VOMITING Last Admin: 01/17/18 09:12 Dose: 4 mg Polyethylene Glycol (Miralax (For Daily Use) -) 17 gm PO BID [facility] Last Admin: 01/19/18 22:02 Dose: 17 grams Vancomycin HCl (Vancomycin (Pre-Docked)) 1,000 mg IVPB We [facility] Last Admin: 01/19/18 14:48 Dose: 1,000 mg - Objective Vital Signs: Vital Signs Temperature 98.0 F 01/20/18 05:59 Pulse Rate 67 01/20/18 05:59 Respiratory Rate 20 01/20/18 05:59 Blood Pressure 94/56 L 01/20/18 05:59 O2 Sat by Pulse Oximetry (%) 100 01/19/18 21:00 Constitutional: Yes: Well Nourished, No Distress, Calm Eyes: Yes: WNL HENT: Yes: WNL Neck: Yes: WNL, Supple Cardiovascular: Yes: WNL, Regular Rate and Rhythm Respiratory: Yes: WNL, Regular Gastrointestinal: Yes: WNL, Normal Bowel Sounds, Soft ...Rectal Exam: Yes: WNL Edema: No (lle bandge ) Labs: CBC, BMP 01/19/18 07:00 01/19/18 07:00 INR, PTT INR 2.16 (0.83-1.09) H 01/19/18 07:00 Problem List - Problems (1) History of malignant neoplasm of colon in adulthood Code(s): Z85.038 - PERSONAL HISTORY OF MALIGNANT NEOPLASM OF LARGE INTESTINE (2) Ileus Assessment/Plan: monitor abdominal exam clear liquid keep electrolytes wnl surgery f/u Code(s): K56.7 - ILEUS, UNSPECIFIED (3) Anemia Code(s): D64.9 - ANEMIA, UNSPECIFIED Qualifiers: Anemia type: due to chronic kidney disease
[2018-01-20] MEDS: ACETAMINOPHEN 1000 MG/100 ML VIAL (NON FORMULARY) IVPB PRN ×2 (07:33→14:59)
[2018-01-20] MEDS: ALBUMIN HUMAN 25% 12.5 GM/50 ML VIAL IVPB SCH ×2 (10:51→10:52)
[2018-01-20] MEDS: VANCOMYCIN 1 GRAM (PRE-DOCKED) 1,000 MG/250 ML BAG IVPB SCH ×2 (11:05→13:44)
--- NOTE | 2018-01-20 11:14 | PN ---
Progress Note (short form) - Note Progress Note: Appears overall better. No CP or SOB. Tolerating clears. HD. Intake & Output 01/17/18 01/18/18 01/19/18 01/20/18 23:59 23:59 23:59 23:59 Intake Total 900 750 200 Output Total 300 140 Balance 600 -140 750 200 Weight 191 lb 5 oz 292 lb 185 lb 181 lb Last Vital Signs Temp Pulse Resp BP Pulse Ox 98.0 F 52 L 18 100/64 100 01/20/18 05:59 01/20/18 10:30 01/20/18 10:30 01/20/18 10:30 01/19/18 21:00 Active Medications Acetaminophen (Ofirmev Injection -) 1,000 mg IVPB Q6H PRN PRN Reason: PAIN Last Admin: 01/20/18 07:33 Dose: 1,000 mg Sodium Chloride (Normal Saline -) 250 mls @ 3,000 mls/hr IV PRN PRN PRN Reason: Hypotension during Dialysis Stop: 01/21/18 07:12 Insulin Aspart (Novolog Vial Sliding Scale -) 1 vial SQ ACHS [facility]; Protocol Last Admin: 01/20/18 06:20 Dose: Not Given Latanoprost (Xalatan 0.005% Eye Drops -) 1 drop OD HS [facility] Last Admin: 01/19/18 22:03 Dose: 1 drop Levothyroxine Sodium (Synthroid Injection -) 37.5 mcg IVPUSH DAILY [facility] Last Admin: 01/19/18 10:02 Dose: 37.5 mcg Ondansetron HCl (Zofran Injection) 4 mg IVPUSH Q6H PRN PRN Reason: NAUSEA AND/OR VOMITING Last Admin: 01/17/18 09:12 Dose: 4 mg Polyethylene Glycol (Miralax (For Daily Use) -) 17 gm PO BID [facility] Last Admin: 01/19/18 22:02 Dose: 17 grams Vancomycin HCl (Vancomycin (Pre-Docked)) 1,000 mg IVPB WeSa [facility] Last Admin: 01/20/18 11:05 Dose: 1,000 mg Gen: NAD Heart: RRR Lung: decreased breath sounds at the bases Abd: softly distended, nontender, (+) BS Ext: + edema Laboratory Results - last 24 hr 01/19/18 01/20/18 21:57 06:16 POC Glucometer 106 121 ASSESSMENT AND PLAN: Small Bowel Obstruction Lactic Acidosis CAD LV Systolic Dysfunction PAD for R BKA ESRD on HD Atrial Fibrillation Pericardial Effusion DM Hypothyroidism h/o Colon Ca - PO as tolerated - HD Per Renal - rate control - O2 as needed Dr Huntley
--- NOTE | 2018-01-20 11:49 | PN ---
Progress Note (short form) - Note Progress Note: Chief Complaint: Events noted, notes reviewed, denies any chest pain or dyspnea , continues to report abdominal discomfort, as per nursing staff no accepting tertiary facility as of yet for further management and evaluation History of Present Illness: Seen and examined. Events noted, notes reviewed, denies any chest pain or dyspnea, continues to report abdominal discomfort, as per nursing staff no accepting tertiary facility as of yet for further management and evaluation Echocardiography dated 12/26/2017 revealed moderately dilated with severely decreased LV fxn, RV dilated with severely decreased RV fxn, mod LAE, mild MR, mod TR, mild AR, mod to large pericardial effusion with no evidence of cardiac tamponade Echocardiography dated 10/05/2017 revealed moderately dilated with severely decreased LV fxn, RV dilated with severely decreased RV fxn, mod LAE, mild MR, mod TR, mild AR, mod pericardial effusion similar to previous Echocardiography dated 09/12/2017 revealed moderate pericardial effusion, no tamponade, mildly dilated LV with severely decreased LV fxn, mild-mod dilated RV with severely decreased RV fxn, mod-severe MUKUL, mild MR, mild-mod TR, mild AR Echocardiography dated 08/11/2017 revealed mildly dilated LV with severely decreased LV function, mild-moderately dilated RV with moderately decreased RV function, moderate LAE, mild MR, TR, AR, moderate pericardial effusion with evidence of cardiac tamponade Lexiscan MPI study dated 11/11/2016 revealed large NV involving apex, inferior wall, infero-lateral small area mild royce-infarct ischemia mid anterior wall, dilated severely decreased LVEF 26, RV dilated - Current Medication List Current Medications Acetaminophen (Ofirmev Injection -) 1,000 mg IVPB Q6H PRN PRN Reason: PAIN Last Admin: 01/20/18 07:33 Dose: 1,000 mg Sodium Chloride (Normal Saline -) 250 mls @ 3,000 mls/hr IV PRN PRN PRN Reason: Hypotension during Dialysis Stop: 01/21/18 07:12 Insulin Aspart (Novolog Vial Sliding Scale -) 1 vial SQ ACHS [facility]; Protocol Last Admin: 01/20/18 06:20 Dose: Not Given Latanoprost (Xalatan 0.005% Eye Drops -) 1 drop OD HS [facility] Last Admin: 01/19/18 22:03 Dose: 1 drop Levothyroxine Sodium (Synthroid Injection -) 37.5 mcg IVPUSH DAILY [facility] Last Admin: 01/19/18 10:02 Dose: 37.5 mcg Ondansetron HCl (Zofran Injection) 4 mg IVPUSH Q6H PRN PRN Reason: NAUSEA AND/OR VOMITING Last Admin: 01/17/18 09:12 Dose: 4 mg Polyethylene Glycol (Miralax (For Daily Use) -) 17 gm PO BID [facility] Last Admin: 01/19/18 22:02 Dose: 17 grams Vancomycin HCl (Vancomycin (Pre-Docked)) 1,000 mg IVPB [facility] Last Admin: 01/20/18 11:05 Dose: 1,000 mg - Objective Vital Signs: Last Vital Signs Temp Pulse Resp BP Pulse Ox 98.0 F 66 18 101/64 100 01/20/18 05:59 01/20/18 11:30 01/20/18 11:30 01/20/18 11:30 01/19/18 21:00 Intake & Output 01/17/18 01/18/18 01/19/18 01/20/18 23:59 23:59 23:59 23:59 Intake Total 900 750 200 Output Total 300 140 Balance 600 -140 750 200 Weight 191 lb 5 oz 292 lb 185 lb 181 lb HEENT: Atraumatic Neck: Supple Negative JVD Cardiovascular: S1 S2 Regular Rate and Rhythm Respiratory: CTA Bilaterally Gastrointestinal: Distended Hypoactive Bowel Sounds Ext: Trace Edema Dressing in Situ Labs: ABG Results ABG pH 7.39 (7.35-7.45) 01/18/18 00:05 ABG pCO2 at Pt Temp 39.8 mmHg (35-45) 01/18/18 00:05 ABG pO2 at Pt Temp 100.0 mmHg (70-100) 01/18/18 00:05 ABG HCO3 23.6 meq/L (22-26) 01/18/18 00:05 ABG O2 Sat (Measured) 97.6 % (90-98.9) 01/18/18 00:05 ABG O2 Content No Result Required. 01/18/18 00:05 ABG Base Excess -0.7 meq/l (-2-2) 01/18/18 00:05 CBC, BMP 01/19/18 07:00 01/19/18 07:00 ASSESSMENT and PLAN: ASSESSMENT: 1. Pre-operative cardiovascular evaluation prior to proceeding with possible laparotomy for management of persistent small bowel obstruction, awaiting accepting tertiary facility (considering his co-morbidities) 2. Peripheral artery disease, gangrene right forefoot post right tibial revacularization and debridement of bone and soft tissue post Chopart level amputation right foot 3. Ischemic dilated cardiomyopathy with chronic class I-II NYHA classification LV failure, compensated/euvolemic, post prophylactic ICD implant 4. CAD post NV with evidence of history of demand ischemic injury angina pectoris, clinically stable 5. Persistent atrial fibrillation [id number] score of 3-4 on Coumadin 6. Pericardial effusion probably uremic pericarditis, moderate to large in severity/no tamponade 7. Diabetes mellitus 8. Hypothyroidism 9. History of PTE 10. ESRD 11. History of colon cancer PLAN: 1. Antibiotics as per the primary team 2. HD as per renal service 3. A/C and anti-platelet agent therapies withheld pending surgical intervention 4. Toprol XL and Entresto therapies on hold pending resolution of the above noted pathology and resumption of PO intake Rafaela Aguilar MD
[2018-01-20] MEDS ORDERED: PT OWN MED DRAWER 7, Y5N ONE ×2 (12:35→21:26)
[2018-01-20] MEDS: POLYETHYLENE GLYCOL 3350 119 GM BTL PO SCH ×2 (12:37→22:55)
[2018-01-20] MEDS: LEVOTHYROXINE SODIUM 100 MCG VIAL IVPUSH SCH (12:37)
--- NOTE | 2018-01-20 16:06 | PN ---
Progress Note, Physician History of Present Illness: Pt seen and examined, events noted. Pt c/o abdominal pain. Currently on liquids without vomiting but not having BMs. - Current Medication List Current Medications: Active Medications Sodium Chloride (Normal Saline -) 250 mls @ 3,000 mls/hr IV PRN PRN PRN Reason: Hypotension during Dialysis Stop: 01/21/18 07:12 Insulin Aspart (Novolog Vial Sliding Scale -) 1 vial SQ ACHS [facility]; Protocol Last Admin: 01/20/18 12:33 Dose: Not Given Latanoprost (Xalatan 0.005% Eye Drops -) 1 drop OD HS [facility] Last Admin: 01/19/18 22:03 Dose: 1 drop Levothyroxine Sodium (Synthroid Injection -) 37.5 mcg IVPUSH DAILY [facility] Last Admin: 01/20/18 12:37 Dose: 37.5 mcg Ondansetron HCl (Zofran Injection) 4 mg IVPUSH Q6H PRN PRN Reason: NAUSEA AND/OR VOMITING Last Admin: 01/17/18 09:12 Dose: 4 mg Polyethylene Glycol (Miralax (For Daily Use) -) 17 gm PO BID [facility] Last Admin: 01/20/18 12:37 Dose: 17 grams Vancomycin HCl (Vancomycin (Pre-Docked)) 1,000 mg IVPB TuWeSa [facility] Last Admin: 01/20/18 13:44 Dose: Not Given - Objective Vital Signs: Vital Signs Temperature 97.4 F L 01/20/18 15:40 Pulse Rate 86 01/20/18 15:40 Respiratory Rate 18 01/20/18 15:40 Blood Pressure 117/67 01/20/18 15:40 O2 Sat by Pulse Oximetry (%) 99 01/20/18 09:00 Constitutional: Yes: Calm Cardiovascular: Yes: Regular Rate and Rhythm Respiratory: Yes: Regular Gastrointestinal: Yes: Soft, Hypoactive Bowel Sounds Wound/Incision: Yes: Dressing Dry and Intact (Rt foot dressing, no tenderness) Neurological: Yes: Alert Labs: CBC, BMP 01/19/18 07:00 01/19/18 07:00 INR, PTT INR 2.16 (0.83-1.09) H 01/19/18 07:00 - ....Imaging X-ray: Report Reviewed Problem List - Problems (1) Gangrene of foot Code(s): I96 - GANGRENE, NOT ELSEWHERE CLASSIFIED (2) Small bowel obstruction due to adhesions Code(s): K56.50 - INTESTNL ADHESIONS, UNSP TO PARTIAL VERSUS COMPLETE OBST (3) Amputated toe of right foot Code(s): Z89.421 - ACQUIRED ABSENCE OF OTHER RIGHT TOE(S) (4) Anemia Code(s): D64.9 - ANEMIA, UNSPECIFIED Qualifiers: Anemia type: due to chronic kidney disease (5) Atrial fibrillation Code(s): I48.91 - UNSPECIFIED ATRIAL FIBRILLATION Qualifiers: Atrial fibrillation type: permanent Qualified Code(s): I48.2 - Chronic atrial fibrillation (6) Cardiomyopathy Code(s): I42.9 - CARDIOMYOPATHY, UNSPECIFIED Qualifiers: Cardiomyopathy type: unspecified Qualified Code(s): I42.9 - Cardiomyopathy , unspecified (7) Diabetes mellitus Code(s): E11.9 - TYPE 2 DIABETES MELLITUS WITHOUT COMPLICATIONS Qualifiers: Diabetes mellitus type: type 2 Diabetes mellitus jail insulin use: with jail use Diabetes mellitus complication detail: with peripheral angiopathy with gangrene (8) Diabetic foot ulcer Code(s): E11.621 - TYPE 2 DIABETES MELLITUS WITH FOOT ULCER; L97.509 - NON- PRESSURE CHRONIC ULCER OTH PRT UNSP FOOT W UNSP SEVERITY (9) ESRD (end stage renal disease) Code(s): N18.6 - END STAGE RENAL DISEASE (10) Osteomyelitis Code(s): M86.9 - OSTEOMYELITIS, UNSPECIFIED Qualifiers: Osteomyelitis type: other Osteomyelitis location: foot Laterality: right Qualified Code(s): M86.8X7 - Other osteomyelitis, ankle and foot (11) Status post peripheral artery angioplasty Code(s): Z98.62 - PERIPHERAL VASCULAR ANGIOPLASTY STATUS (12) Status post transmetatarsal amputation of right foot Code(s): Z89.431 - ACQUIRED ABSENCE OF RIGHT FOOT Assessment/Plan Rt foot non-healing wound/gangrene s/p Rt TMA SBO ESRD PAD -- pt on liquid diet but still with abdominal pain, GI following -- continue Vancomycin post HD -- plan for amputation once stable -- continue wound care
--- NOTE | 2018-01-20 20:02 | PN ---
Progress Note, Physician History of Present Illness: Pt seen and examined at bedside. He is complaining of abdominal pain. He denies vomiting. He tolerated HD today. - Current Medication List Current Medications: Active Medications Sodium Chloride (Normal Saline -) 250 mls @ 3,000 mls/hr IV PRN PRN PRN Reason: Hypotension during Dialysis Stop: 01/21/18 07:12 Insulin Aspart (Novolog Vial Sliding Scale -) 1 vial SQ ACHS [facility]; Protocol Last Admin: 01/20/18 16:24 Dose: Not Given Latanoprost (Xalatan 0.005% Eye Drops -) 1 drop OD HS [facility] Last Admin: 01/19/18 22:03 Dose: 1 drop Levothyroxine Sodium (Synthroid Injection -) 37.5 mcg IVPUSH DAILY [facility] Last Admin: 01/20/18 12:37 Dose: 37.5 mcg Ondansetron HCl (Zofran Injection) 4 mg IVPUSH Q6H PRN PRN Reason: NAUSEA AND/OR VOMITING Last Admin: 01/17/18 09:12 Dose: 4 mg Polyethylene Glycol (Miralax (For Daily Use) -) 17 gm PO BID [facility] Last Admin: 01/20/18 12:37 Dose: 17 grams Vancomycin HCl (Vancomycin (Pre-Docked)) 1,000 mg IVPB TuWeSa [facility] Last Admin: 01/20/18 13:44 Dose: Not Given - Objective Vital Signs: Vital Signs Temperature 97.4 F L 01/20/18 15:40 Pulse Rate 86 01/20/18 15:40 Respiratory Rate 18 01/20/18 15:40 Blood Pressure 117/67 01/20/18 15:40 O2 Sat by Pulse Oximetry (%) 99 01/20/18 09:00 Constitutional: Yes: Moderate Distress Eyes: Yes: Conjunctiva Clear HENT: Yes: Atraumatic Cardiovascular: Yes: S1, S2 Respiratory: Yes: On Nasal O2 Gastrointestinal: Yes: Tenderness Genitourinary: Yes: WNL Edema: Yes Edema: LLE: 1+, RLE: 1+ Wound/Incision: Yes: Dressing Dry and Intact Neurological: Yes: Oriented Psychiatric: Yes: Oriented Labs: CBC, BMP 01/19/18 07:00 01/19/18 07:00 INR, PTT INR 2.16 (0.83-1.09) H 01/19/18 07:00 Problem List - Problems (1) Gangrene of foot Code(s): I96 - GANGRENE, NOT ELSEWHERE CLASSIFIED (2) Anemia Code(s): D64.9 - ANEMIA, UNSPECIFIED (3) ESRD (end stage renal disease) Code(s): N18.6 - END STAGE RENAL DISEASE Assessment/Plan Current Medications Generic Name Dose Route Start Last Admin Trade Name Freq PRN Reason Stop Dose Admin Sodium Chloride 250 mls @ 3,000 mls/hr 01/20/18 07:12 Normal Saline - IV 01/21/18 07:12 PRN PRN Hypotension during Dialysis Insulin Aspart 1 vial 01/18/18 07:00 01/20/18 16:24 Novolog Vial Sliding Scale - SQ Not Given ACHS [facility] Protocol Latanoprost 1 drop 01/17/18 22:00 01/19/18 22:03 Xalatan 0.005% Eye Drops - OD 1 drop HS [facility] Administration Levothyroxine Sodium 37.5 mcg 01/18/18 10:00 01/20/18 12:37 Synthroid Injection - IVPUSH 37.5 mcg DAILY [facility] Administration Ondansetron HCl 4 mg 01/17/18 09:05 01/17/18 09:12 Zofran Injection IVPUSH 4 mg Q6H PRN Administration NAUSEA AND/OR VOMITING Polyethylene Glycol 17 gm 01/19/18 22:00 01/20/18 12:37 Miralax (For Daily Use) - PO 17 grams BID [facility] Administration Vancomycin HCl 1,000 mg 01/19/18 14:00 01/20/18 13:44 Vancomycin (Pre-Docked) IVPB Not Given TuWeSa [facility] Impression 1. ESRD 2. hx pericardial effusion 3. hx pneumopericardium 4. hypothyroidism 5. a-fib 6. hypotension 7. hx of colon cancer 8. CHF 9. DM 10. hx of PE 11. CAD 12. right stump infection 13. SBO Plan - pt tolerated HD today, kept volume even secondary to GI process - called surgery and medical attending as he has abdominal pain - pt was not accepted for transfer to [facility] or [facility], per medical team - keep NPO - will need to address SBO, medical team informed - bka on hold for now - cont wound care - epogen for anemia Dr Conklin
--- NOTE | 2018-01-20 20:04 | PN ---
Progress Note (short form) - Note Progress Note: patient seen and examined in room at bed side POC discussed with both c/o abdominal pain / abdomen visibly distended / tender Vital Signs Period Temp Pulse Resp BP Sys/Yoon Pulse Ox Last 24 Hr 97.2 F-98.0 F 34-86 18-20 94-117/56-67 99-100 neck -JVD heart S1/S2 irreg Lungs decreased at bases otherwise clear Abd distended / diffusely tender / ++guarding ext Right Lower Ext dressing to right TMA blood stained ++ swelling to right LLE CBC, BMP 01/19/18 07:00 01/19/18 07:00 Active Medications Sodium Chloride (Normal Saline -) 250 mls @ 3,000 mls/hr IV PRN PRN PRN Reason: Hypotension during Dialysis Stop: 01/21/18 07:12 Insulin Aspart (Novolog Vial Sliding Scale -) 1 vial SQ ACHS [facility]; Protocol Last Admin: 01/20/18 16:24 Dose: Not Given Latanoprost (Xalatan 0.005% Eye Drops -) 1 drop OD HS [facility] Last Admin: 01/19/18 22:03 Dose: 1 drop Levothyroxine Sodium (Synthroid Injection -) 37.5 mcg IVPUSH DAILY [facility] Last Admin: 01/20/18 12:37 Dose: 37.5 mcg Ondansetron HCl (Zofran Injection) 4 mg IVPUSH Q6H PRN PRN Reason: NAUSEA AND/OR VOMITING Last Admin: 01/17/18 09:12 Dose: 4 mg Polyethylene Glycol (Miralax (For Daily Use) -) 17 gm PO BID [facility] Last Admin: 01/20/18 12:37 Dose: 17 grams Vancomycin HCl (Vancomycin (Pre-Docked)) 1,000 mg IVPB TuWeSa [facility] Last Admin: 01/20/18 13:44 Dose: Not Given assment / plan # SBO CT reviewed / FUA patient unable to tolerate liquids ++ pain colic in nature now distended - will need NGT patient had declined NGT - I have explained need and consequences of not decompressing abd ---now agrees Currentlly attempting to transfer to #s/p right TMA 01/03/18 non healing will need BKA nmow on hold awaiting resolution of SBO correction of INR dependent on schedule for OR Cardio clearance done recently for TMA Known to have chronic pericardial effusion Known osteomyelitis will need margins results post op to determine Abx Tx Cardio / ID / Nephrology input requested #s/pPrevious RLE gangrene of toes 2-5 s/p amputation #osteomyelitis - #hyponatremia ( Na 129) improved today Na 133 #PVD PLavix on hold last dose day prior to admission #CKD5 on chronic HD (T/T/S) #DM on insulin / sliding scale # a fib -- a/c on coumadin INR 2.3 Coumadin on hold will trend -- repeat tonight if higher will treat with vit K PO and follow am labs #CAD #Cardiomyopathy s/p ICD #hypothyroid #HF -- echo done last admission had cardiac clearance 01/01/18 #anemia of chronic disease # hx of pericardial effusion -moderate / chronic >6 months hx of colon ca s/p resection hx of PE - on a/c hx of pneumopericardium Problem List - Problems (1) Gangrene of foot Code(s): I96 - GANGRENE, NOT ELSEWHERE CLASSIFIED (2) Open wound of foot Code(s): S91.309A - UNSPECIFIED OPEN WOUND, UNSPECIFIED FOOT, INITIAL ENCOUNTER Qualifiers: Encounter type: subsequent encounter Laterality: right Qualified Code(s) : S91.301D - Unspecified open wound, right foot, subsequent encounter (3) Anemia Code(s): D64.9 - ANEMIA, UNSPECIFIED Qualifiers: Anemia type: due to chronic kidney disease (4) Atrial fibrillation Code(s): I48.91 - UNSPECIFIED ATRIAL FIBRILLATION Qualifiers: Atrial fibrillation type: permanent Qualified Code(s): I48.2 - Chronic atrial fibrillation (5) Cardiomyopathy Code(s): I42.9 - CARDIOMYOPATHY, UNSPECIFIED Qualifiers: Cardiomyopathy type: unspecified Qualified Code(s): I42.9 - Cardiomyopathy , unspecified (6) Chronic kidney disease (CKD), stage V Code(s): N18.5 - CHRONIC KIDNEY DISEASE, STAGE 5 (7) Chronic kidney disease on chronic dialysis Code(s): N18.6 - END STAGE RENAL DISEASE; Z99.2 - DEPENDENCE ON RENAL DIALYSIS (8) Diabetes mellitus Code(s): E11.9 - TYPE 2 DIABETES MELLITUS WITHOUT COMPLICATIONS Qualifiers: Diabetes mellitus type: type 2 Diabetes mellitus [facility] insulin use: with [facility] use Diabetes mellitus complication detail: with peripheral angiopathy with gangrene (9) HTN (hypertension) Code(s): I10 - ESSENTIAL (PRIMARY) HYPERTENSION Qualifiers: Hypertension type: essential hypertension Qualified Code(s): I10 - Essential (primary) hypertension (10) Hypotension Code(s): I95.9 - HYPOTENSION, UNSPECIFIED Qualifiers: Hypotension type: other hypotension type Qualified Code(s): I95.89 - Other hypotension (11) Hypothyroid Code(s): E03.9 - HYPOTHYROIDISM, UNSPECIFIED Qualifiers: Hypothyroidism type: unspecified Qualified Code(s): E03.9 - Hypothyroidism , unspecified (12) ICD (implantable cardioverter-defibrillator) in place Code(s): Z95.810 - PRESENCE OF AUTOMATIC (IMPLANTABLE) CARDIAC DEFIBRILLATOR (13) Osteomyelitis Code(s): M86.9 - OSTEOMYELITIS, UNSPECIFIED Qualifiers: Osteomyelitis type: other Osteomyelitis location: foot Laterality: right Qualified Code(s): M86.8X7 - Other osteomyelitis, ankle and foot (14) Pericardial effusion Code(s): I31.3 - PERICARDIAL EFFUSION (NONINFLAMMATORY) (15) Status post peripheral artery angioplasty Code(s): Z98.62 - PERIPHERAL VASCULAR ANGIOPLASTY STATUS (16) Status post transmetatarsal amputation of right foot Code(s): Z89.431 - ACQUIRED ABSENCE OF RIGHT FOOT
[2018-01-20] MEDS ORDERED: LORazepam 2 MG/ML SDV VIAL IVPUSH ONE (20:30)
--- NOTE | 2018-01-20 20:32 | PN ---
Progress Note (short form) - Note Progress Note: addendum [facility] called case presented to medical attending and Surgical service Both have agreed to accept the patient pending insurance approval and bed availability Expectation is for possible transfer tomorrow Problem List - Problems (1) Gangrene of foot Code(s): I96 - GANGRENE, NOT ELSEWHERE CLASSIFIED (2) Open wound of foot Code(s): S91.309A - UNSPECIFIED OPEN WOUND, UNSPECIFIED FOOT, INITIAL ENCOUNTER Qualifiers: Encounter type: subsequent encounter Laterality: right Qualified Code(s) : S91.301D - Unspecified open wound, right foot, subsequent encounter (3) Anemia Code(s): D64.9 - ANEMIA, UNSPECIFIED Qualifiers: Anemia type: due to chronic kidney disease (4) Atrial fibrillation Code(s): I48.91 - UNSPECIFIED ATRIAL FIBRILLATION Qualifiers: Atrial fibrillation type: permanent Qualified Code(s): I48.2 - Chronic atrial fibrillation (5) Cardiomyopathy Code(s): I42.9 - CARDIOMYOPATHY, UNSPECIFIED Qualifiers: Cardiomyopathy type: unspecified Qualified Code(s): I42.9 - Cardiomyopathy , unspecified (6) Chronic kidney disease (CKD), stage V Code(s): N18.5 - CHRONIC KIDNEY DISEASE, STAGE 5 (7) Chronic kidney disease on chronic dialysis Code(s): N18.6 - END STAGE RENAL DISEASE; Z99.2 - DEPENDENCE ON RENAL DIALYSIS (8) Diabetes mellitus Code(s): E11.9 - TYPE 2 DIABETES MELLITUS WITHOUT COMPLICATIONS Qualifiers: Diabetes mellitus type: type 2 Diabetes mellitus [facility] insulin use: 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 Diabetes mellitus complication detail: with peripheral angiopathy with gangrene (9) HTN (hypertension) Code(s): I10 - ESSENTIAL (PRIMARY) HYPERTENSION Qualifiers: Hypertension type: essential hypertension Qualified Code(s): I10 - Essential (primary) hypertension (10) Hypotension Code(s): I95.9 - HYPOTENSION, UNSPECIFIED Qualifiers: Hypotension type: other hypotension type Qualified Code(s): I95.89 - Other hypotension (11) Hypothyroid Code(s): E03.9 - HYPOTHYROIDISM, UNSPECIFIED Qualifiers: Hypothyroidism type: unspecified Qualified Code(s): E03.9 - Hypothyroidism , unspecified (12) ICD (implantable cardioverter-defibrillator) in place Code(s): Z95.810 - PRESENCE OF AUTOMATIC (IMPLANTABLE) CARDIAC DEFIBRILLATOR (13) Osteomyelitis Code(s): M86.9 - OSTEOMYELITIS, UNSPECIFIED Qualifiers: Osteomyelitis type: other Osteomyelitis location: foot Laterality: right Qualified Code(s): M86.8X7 - Other osteomyelitis, ankle and foot (14) Pericardial effusion Code(s): I31.3 - PERICARDIAL EFFUSION (NONINFLAMMATORY) (15) Status post peripheral artery angioplasty Code(s): Z98.62 - PERIPHERAL VASCULAR ANGIOPLASTY STATUS (16) Status post transmetatarsal amputation of right foot Code(s): Z89.431 - ACQUIRED ABSENCE OF RIGHT FOOT
[2018-01-20] MEDS: LATANOPROST 0.005% OPHTH SOLN 2.5ML BOTTLE OD SCH (22:55)
[2018-01-21] MEDS: INSULIN SLIDING SCALE (NOVOLOG) 1 VIAL SQ SCH ×4 (06:52→21:07)
--- NOTE | 2018-01-21 08:32 | PN ---
Progress Note, Physician Chief Complaint: still with abdominal pain NGT in place , no BM / flatuce - Current Medication List Current Medications: Active Medications Insulin Aspart (Novolog Vial Sliding Scale -) 1 vial SQ ACHS [facility]; Protocol Last Admin: 01/21/18 06:52 Dose: Not Given Latanoprost (Xalatan 0.005% Eye Drops -) 1 drop OD HS [facility] Last Admin: 01/20/18 22:55 Dose: 1 drop Levothyroxine Sodium (Synthroid Injection -) 37.5 mcg IVPUSH DAILY [facility] Last Admin: 01/20/18 12:37 Dose: 37.5 mcg Ondansetron HCl (Zofran Injection) 4 mg IVPUSH Q6H PRN PRN Reason: NAUSEA AND/OR VOMITING Last Admin: 01/17/18 09:12 Dose: 4 mg Polyethylene Glycol (Miralax (For Daily Use) -) 17 gm PO BID [facility] Last Admin: 01/20/18 22:55 Dose: 17 grams Vancomycin HCl (Vancomycin (Pre-Docked)) 1,000 mg IVPB [facility] Last Admin: 01/20/18 13:44 Dose: Not Given - Objective Vital Signs: Vital Signs Temperature 97.5 F L 01/21/18 05:46 Pulse Rate 68 01/21/18 05:46 Respiratory Rate 19 01/21/18 05:46 Blood Pressure 101/55 L 01/21/18 05:46 O2 Sat by Pulse Oximetry (%) 99 01/20/18 21:00 Constitutional: Yes: Well Nourished, No Distress, Calm HENT: Yes: WNL Neck: Yes: WNL Cardiovascular: Yes: WNL, Regular Rate and Rhythm Respiratory: Yes: WNL, Regular, CTA Bilaterally Gastrointestinal: Yes: Other (tender , no rebound or guarding , BS high pitched) Extremities: Yes: Other (bandage LLE) Labs: CBC, BMP 01/19/18 07:00 01/19/18 07:00 INR, PTT INR 2.16 (0.83-1.09) H 01/19/18 07:00 Problem List - Problems (1) Small bowel obstruction due to adhesions Assessment/Plan: plan to transfer to tertiary care center for further management monitor NGT output IVF's am labs Code(s): K56.50 - INTESTNL ADHESIONS, UNSP TO PARTIAL VERSUS COMPLETE OBST
[2018-01-21 09:01] LABS: HEMATOCRIT 34.4 % (35.4-49); HEMOGLOBIN 10.3 GM/dL (11.7-16.9); MCH 29.3 pg (25.7-33.7); MCHC 29.9 g/dl (32.0-35.9); MEAN CELL VOLUME 97.8 fl (80-96); MEAN PLT VOLUME 9.3 fl (7.5-11.1); PLATELET COUNT 210 K/MM3 (134-434); RBC 3.51 M/mm3 (4.00-5.60); RDW 23.8 % (11.9-15.9); WHITE BLOOD COUNT 4.4 K/mm3 (4.0-10.0)
[2018-01-21 09:23] LABS: INR 2.13 (0.83-1.09); PROTHROMBIN TIME (PATIENT) 25.3 SEC (9.7-13.0)
[2018-01-21 09:36] LABS: ANION GAP 17 MMOL/L (8-16); BLOOD UREA NITROGEN 17 mg/dL (7-18); CALCIUM 9.4 mg/dL (8.5-10.1); CHLORIDE 97 mmol/L (98-107); CO2 23 mmol/L (21-32); GLUCOSE,RANDOM 117 mg/dL (74-106); POTASSIUM 3.9 mmol/L (3.5-5.1); SODIUM 137 mmol/L (136-145)
[2018-01-21] MEDS ORDERED: PT OWN MED DRAWER 7, Y5N ONE ×2 (10:33→20:59)
[2018-01-21] MEDS: LEVOTHYROXINE SODIUM 100 MCG VIAL IVPUSH SCH (10:41)
[2018-01-21] MEDS: POLYETHYLENE GLYCOL 3350 119 GM BTL PO SCH ×2 (10:41→21:07)
[2018-01-21] MEDS: ACETAMINOPHEN 1000 MG/100 ML VIAL (NON FORMULARY) IVPB PRN (10:41)
--- NOTE | 2018-01-21 11:33 | PN ---
Progress Note (short form) - Note Progress Note: Chief Complaint: Events noted, notes reviewed, denies any chest pain or dyspnea , continues to report abdominal discomfort but decreased in severity, patient is to be transferred to [facility] [place] management and evaluation History of Present Illness: Seen and examined. Events noted, notes reviewed, denies any chest pain or dyspnea, continues to report abdominal discomfort but decreased in severity, patient is to be transferred to [facility] [place] further management and evaluation Echocardiography dated 12/26/2017 revealed moderately dilated with severely decreased LV fxn, RV dilated with severely decreased RV fxn, mod LAE, mild MR, mod TR, mild AR, mod to large pericardial effusion with no evidence of cardiac tamponade Echocardiography dated 10/05/2017 revealed moderately dilated with severely decreased LV fxn, RV dilated with severely decreased RV fxn, mod LAE, mild MR, mod TR, mild AR, mod pericardial effusion similar to previous Echocardiography dated 09/12/2017 revealed moderate pericardial effusion, no tamponade, mildly dilated LV with severely decreased LV fxn, mild-mod dilated RV with severely decreased RV fxn, mod-severe MUKUL, mild MR, mild-mod TR, mild AR Echocardiography dated 08/11/2017 revealed mildly dilated LV with severely decreased LV function, mild-moderately dilated RV with moderately decreased RV function, moderate LAE, mild MR, TR, AR, moderate pericardial effusion with evidence of cardiac tamponade Lexiscan MPI study dated 11/11/2016 revealed large WY involving apex, inferior wall, infero-lateral small area mild royce-infarct ischemia mid anterior wall, dilated severely decreased LVEF 26, RV dilated - Current Medication List Current Medications Acetaminophen (Ofirmev Injection -) 1,000 mg IVPB Q6H PRN PRN Reason: PAIN SCALE 5-10 Last Admin: 01/21/18 10:41 Dose: 1,000 mg Insulin Aspart (Novolog Vial Sliding Scale -) 1 vial SQ ACHS [facility]; Protocol Last Admin: 01/21/18 11:23 Dose: Not Given Latanoprost (Xalatan 0.005% Eye Drops -) 1 drop OD HS [facility] Last Admin: 01/20/18 22:55 Dose: 1 drop Levothyroxine Sodium (Synthroid Injection -) 37.5 mcg IVPUSH DAILY [facility] Last Admin: 01/21/18 10:41 Dose: 37.5 mcg Ondansetron HCl (Zofran Injection) 4 mg IVPUSH Q6H PRN PRN Reason: NAUSEA AND/OR VOMITING Last Admin: 01/17/18 09:12 Dose: 4 mg Polyethylene Glycol (Miralax (For Daily Use) -) 17 gm PO BID [facility] Last Admin: 01/21/18 10:41 Dose: Not Given Vancomycin HCl (Vancomycin (Pre-Docked)) 1,000 mg IVPB TuWeSa [facility] Last Admin: 01/20/18 13:44 Dose: Not Given - Objective Vital Signs: Last Vital Signs Temp Pulse Resp BP Pulse Ox 98.1 F 65 20 111/66 99 01/21/18 09:00 01/21/18 09:00 01/21/18 09:00 01/21/18 09:00 01/20/18 21:00 Intake & Output 01/18/18 01/19/18 01/20/18 01/21/18 23:59 23:59 23:59 23:59 Intake Total 750 480 Output Total 140 700 Balance -140 750 480 -700 Weight 192 lb 185 lb 181 lb 183 lb 1 oz Neck: Supple Negative JVD Cardiovascular: S1 S2 Regular Rate and Rhythm Respiratory: CTA Bilaterally Gastrointestinal: Distended Hypoactive Bowel Sounds Ext: Trace Edema Dressing in Situ Labs: CBC, BMP 01/21/18 08:00 01/21/18 08:00 Hepatic Panel Total Bilirubin 1.1 mg/dL (0.2-1) H 01/19/18 07:00 AST 24 U/L (15-37) 01/19/18 07:00 ALT 12 U/L (13-61) L 01/19/18 07:00 Alkaline Phosphatase 132 U/L (45-117) H 01/19/18 07:00 Albumin 2.2 g/dl (3.4-5.0) L 01/19/18 07:00 INR, PTT INR 2.13 (0.83-1.09) H 01/21/18 08:00 ASSESSMENT and PLAN: ASSESSMENT: 1. Pre-operative cardiovascular evaluation prior to proceeding with possible laparotomy for management of persistent small bowel obstruction, to be transferred [place] [facility] [place]considering his co-morbidities) 2. Peripheral artery disease, gangrene right forefoot post right tibial revacularization and debridement of bone and soft tissue post Chopart level amputation right foot 3. Ischemic dilated cardiomyopathy with chronic class I-II NYHA classification LV failure, compensated/euvolemic, post prophylactic ICD implant 4. CAD post WY with history of demand ischemic injury angina pectoris, clinically stable 5. Persistent atrial fibrillation [id number] score of 3-4 on Coumadin 6. Pericardial effusion probably uremic pericarditis, moderate to large in severity/no tamponade as per last echocardiography 7. Diabetes mellitus 8. Hypothyroidism 9. History of PTE 10. ESRD 11. History of colon cancer PLAN: 1. Antibiotics as per the primary team 2. HD as per renal service 3. A/C and anti-platelet agent therapies withheld pending surgical intervention 4. Toprol XL and Entresto therapies on hold pending resolution of the above noted pathology and resumption of PO intake 5. As outlined above to be transferred Rafaela Aguilar MD
--- NOTE | 2018-01-21 11:41 | PN ---
Progress Note (short form) - Note Progress Note: Still with GI symptoms but seems a little better today. No CP or SOB. S/P HD yesterday. Intake & Output 01/18/18 01/19/1818 01/21/18 23:59 23:59 23:59 23:59 Intake Total 750 480 Output Total 140 700 Balance -140 750 480 -700 Weight 192 lb 185 lb 181 lb 183 lb 1 oz Last Vital Signs Temp Pulse Resp BP Pulse Ox 98.1 F 65 20 111/66 96 01/21/18 09:00 01/21/18 09:00 01/21/18 09:00 01/21/18 09:00 01/21/18 09:00 Active Medications Acetaminophen (Ofirmev Injection -) 1,000 mg IVPB Q6H PRN PRN Reason: PAIN SCALE 5-10 Last Admin: 01/21/18 10:41 Dose: 1,000 mg Insulin Aspart (Novolog Vial Sliding Scale -) 1 vial SQ ACHS [facility]; Protocol Last Admin: 01/21/18 11:23 Dose: Not Given Latanoprost (Xalatan 0.005% Eye Drops -) 1 drop OD HS [facility] Last Admin: 01/20/18 22:55 Dose: 1 drop Levothyroxine Sodium (Synthroid Injection -) 37.5 mcg IVPUSH DAILY [facility] Last Admin: 01/21/18 10:41 Dose: 37.5 mcg Ondansetron HCl (Zofran Injection) 4 mg IVPUSH Q6H PRN PRN Reason: NAUSEA AND/OR VOMITING Last Admin: 01/17/18 09:12 Dose: 4 mg Polyethylene Glycol (Miralax (For Daily Use) -) 17 gm PO BID [facility] Last Admin: 01/21/18 10:41 Dose: Not Given Vancomycin HCl (Vancomycin (Pre-Docked)) 1,000 mg IVPB TuWeSa [facility] Last Admin: 01/20/18 13:44 Dose: Not Given Gen: NAD Heart: RRR Lung: decreased breath sounds at the bases Abd: softly distended, nontender, (+) BS Ext: + edema Laboratory Results - last 24 hr 01/20/18 01/20/18 01/20/18 12:23 16:21 22:53 WBC RBC Hgb Hct MCV MCH MCHC RDW Plt Count MPV Absolute Neuts (auto) Neutrophils % Lymphocytes % Monocytes % Eosinophils % Basophils % Nucleated RBC % PT with INR INR Sodium Potassium Chloride Carbon Dioxide Anion Gap BUN Creatinine Creat Clearance w eGFR POC Glucometer 103 106 123 Random Glucose Calcium 01/21/18 01/21/18 01/21/18 06:51 08:00 08:00 WBC 4.4 RBC 3.51 L Hgb 10.3 L Hct 34.4 L MCV 97.8 H MCH 29.3 MCHC 29.9 L RDW 23.8 H Plt Count 210 MPV 9.3 Absolute Neuts (auto) 3.0 Neutrophils % 66.6 Lymphocytes % 6.8 L Monocytes % 25.4 H Eosinophils % 0.6 D Basophils % 0.6 Nucleated RBC % 1 H PT with INR 25.30 H INR 2.13 H Sodium Potassium Chloride Carbon Dioxide Anion Gap BUN Creatinine Creat Clearance w eGFR POC Glucometer 126 Random Glucose Calcium 01/21/18 08:00 WBC RBC Hgb Hct MCV MCH MCHC RDW Plt Count MPV Absolute Neuts (auto) Neutrophils % Lymphocytes % Monocytes % Eosinophils % Basophils % Nucleated RBC % PT with INR INR Sodium 137 Potassium 3.9 Chloride 97 L Carbon Dioxide 23 Anion Gap 17 H BUN 17 Creatinine 4.0 H Creat Clearance w eGFR 14.88 POC Glucometer Random Glucose 117 H Calcium 9.4 ASSESSMENT AND PLAN: Small Bowel Obstruction Lactic Acidosis CAD LV Systolic Dysfunction PAD for R BKA ESRD on HD Atrial Fibrillation Pericardial Effusion DM Hypothyroidism h/o Colon Ca - PO as tolerated - HD Per Renal - rate control - O2 as needed - For possible transfer to tertiary care Dr Huntley
--- NOTE | 2018-01-21 11:54 | PN ---
Progress Note, Physician History of Present Illness: Pt is s/p NGT placement and states abdominal pain has improved. He has no other specific complaints. Remains afebrile. - Current Medication List Current Medications: Active Medications Acetaminophen (Ofirmev Injection -) 1,000 mg IVPB Q6H PRN PRN Reason: PAIN SCALE 5-10 Last Admin: 01/21/18 10:41 Dose: 1,000 mg Insulin Aspart (Novolog Vial Sliding Scale -) 1 vial SQ ACHS [facility]; Protocol Last Admin: 01/21/18 11:23 Dose: Not Given Latanoprost (Xalatan 0.005% Eye Drops -) 1 drop OD HS [facility] Last Admin: 01/20/18 22:55 Dose: 1 drop Levothyroxine Sodium (Synthroid Injection -) 37.5 mcg IVPUSH DAILY [facility] Last Admin: 01/21/18 10:41 Dose: 37.5 mcg Ondansetron HCl (Zofran Injection) 4 mg IVPUSH Q6H PRN PRN Reason: NAUSEA AND/OR VOMITING Last Admin: 01/17/18 09:12 Dose: 4 mg Polyethylene Glycol (Miralax (For Daily Use) -) 17 gm PO BID [facility] Last Admin: 01/21/18 10:41 Dose: Not Given Vancomycin HCl (Vancomycin (Pre-Docked)) 1,000 mg IVPB We [facility] Last Admin: 01/20/18 13:44 Dose: Not Given - Objective Vital Signs: Vital Signs Temperature 98.1 F 01/21/18 09:00 Pulse Rate 65 01/21/18 09:00 Respiratory Rate 20 01/21/18 09:00 Blood Pressure 111/66 01/21/18 09:00 O2 Sat by Pulse Oximetry (%) 96 01/21/18 09:00 Constitutional: Yes: No Distress, Calm Cardiovascular: Yes: Regular Rate and Rhythm Respiratory: Yes: Regular Gastrointestinal: Yes: Distention, Other (+ BS) Wound/Incision: Yes: Dressing Dry and Intact (Rt TMA) Neurological: Yes: Alert Labs: CBC, BMP 01/21/18 08:00 01/21/18 08:00 INR, PTT INR 2.13 (0.83-1.09) H 01/21/18 08:00 Problem List - Problems (1) Gangrene of foot Code(s): I96 - GANGRENE, NOT ELSEWHERE CLASSIFIED (2) Small bowel obstruction due to adhesions Code(s): K56.50 - INTESTNL ADHESIONS, UNSP TO PARTIAL VERSUS COMPLETE OBST (3) Amputated toe of right foot Code(s): Z89.421 - ACQUIRED ABSENCE OF OTHER RIGHT TOE(S) (4) Anemia Code(s): D64.9 - ANEMIA, UNSPECIFIED Qualifiers: Anemia type: due to chronic kidney disease (5) Atrial fibrillation Code(s): I48.91 - UNSPECIFIED ATRIAL FIBRILLATION Qualifiers: Atrial fibrillation type: permanent Qualified Code(s): I48.2 - Chronic atrial fibrillation (6) Cardiomyopathy Code(s): I42.9 - CARDIOMYOPATHY, UNSPECIFIED Qualifiers: Cardiomyopathy type: unspecified Qualified Code(s): I42.9 - Cardiomyopathy , unspecified (7) Diabetes mellitus Code(s): E11.9 - TYPE 2 DIABETES MELLITUS WITHOUT COMPLICATIONS Qualifiers: Diabetes mellitus type: type 2 Diabetes mellitus half-way insulin use: with half-way use Diabetes mellitus complication detail: with peripheral angiopathy with gangrene (8) Diabetic foot ulcer Code(s): E11.621 - TYPE 2 DIABETES MELLITUS WITH FOOT ULCER; L97.509 - NON- PRESSURE CHRONIC ULCER OTH PRT UNSP FOOT W UNSP SEVERITY (9) ESRD (end stage renal disease) Code(s): N18.6 - END STAGE RENAL DISEASE (10) Osteomyelitis Code(s): M86.9 - OSTEOMYELITIS, UNSPECIFIED Qualifiers: Osteomyelitis type: other Osteomyelitis location: foot Laterality: right Qualified Code(s): M86.8X7 - Other osteomyelitis, ankle and foot (11) Status post peripheral artery angioplasty Code(s): Z98.62 - PERIPHERAL VASCULAR ANGIOPLASTY STATUS (12) Status post transmetatarsal amputation of right foot Code(s): Z89.431 - ACQUIRED ABSENCE OF RIGHT FOOT Assessment/Plan Rt foot non-healing wound/gangrene - awaiting amputation s/p Rt TMA SBO ESRD PAD -- NGT placed, no current abd tenderness -- GI following -- continue Vancomycin post HD -- amputation planned once stable -- continue wound care
--- NOTE | 2018-01-21 13:00 | PN ---
Progress Note (short form) - Note Progress Note: NGT in place continues with abdominal pain FUA ordered Vital Signs Period Temp Pulse Resp BP Sys/Yoon Pulse Ox Last 24 Hr 97.4 F-98.1 F 65-86 18-20 101-117/55-70 96-[address] with bilious drainage neck heart S1/S2 ireg lungs clear / decreased at bases abd remains distended ( less tense ) + tender to palpation + guarding ext unchanged Laboratory Last Values WBC 4.4 K/mm3 (4.0-10.0) 01/21/18 08:00 RBC 3.51 M/mm3 (4.00-5.60) L 01/21/18 08:00 Hgb 10.3 GM/dL (11.7-16.9) L 01/21/18 08:00 Hct 34.4 % (35.4-49) L 01/21/18 08:00 MCV 97.8 fl (80-96) H 01/21/18 08:00 MCH 29.3 pg (25.7-33.7) 01/21/18 08:00 MCHC 29.9 g/dl (32.0-35.9) L 01/21/18 08:00 RDW 23.8 % (11.9-15.9) H 01/21/18 08:00 Plt Count 210 K/MM3 (134-434) 01/21/18 08:00 MPV 9.3 fl (7.5-11.1) 01/21/18 08:00 Absolute Neuts (auto) 3.0 K/mm3 (1.5-8.0) 01/21/18 08:00 Neutrophils % 66.6 % (42.8-82.8) 01/21/18 08:00 Lymphocytes % 6.8 % (8-40) L 01/21/18 08:00 Monocytes % 25.4 % (3.8-10.2) H 01/21/18 08:00 Eosinophils % 0.6 % (0-4.5) D 01/21/18 08:00 Basophils % 0.6 % (0-2.0) 01/21/18 08:00 Nucleated RBC % 1 % (0-0) H 01/21/18 08:00 Hypochromia 0 01/17/18 23:43 Platelet Estimate Normal 01/17/18 23:43 Platelet Comment Giant platelets 01/16/18 17:25 Polychromasia 0 01/17/18 23:43 Poikilocytosis 1+ 01/17/18 23:43 Anisocytosis 2+ 01/17/18 23:43 Microcytosis 0 01/17/18 23:43 Macrocytosis 2+ 01/17/18 23:43 PT with INR 25.30 SEC (9.7-13.0) H 01/21/18 08:00 INR 2.13 (0.83-1.09) H 01/21/18 08:00 PTT (Actin FS) 41.7 SECONDS (25.2-36.5) H 01/16/18 17:25 Anticoagulation Therapy No Result Required. 01/18/18 00:05 Puncture Site Left radial 01/18/18 00:05 ABG pH 7.39 (7.35-7.45) 01/18/18 00:05 ABG pCO2 at Pt Temp 39.8 mmHg (35-45) 01/18/18 00:05 ABG pO2 at Pt Temp 100.0 mmHg (70-100) 01/18/18 00:05 ABG HCO3 23.6 meq/L (22-26) 01/18/18 00:05 ABG O2 Sat (Measured) 97.6 % (90-98.9) 01/18/18 00:05 ABG O2 Content No Result Required. 01/18/18 00:05 ABG Base Excess -0.7 meq/l (-2-2) 01/18/18 00:05 Blu Test Positive 01/18/18 00:05 O2 Delivery Device No Result Required. 01/18/18 00:05 Oxygen Flow Rate Yes 01/18/18 00:05 Vent Mode No Result Required. 01/18/18 00:05 Vent Rate No Result Required. 01/18/18 00:05 Mechanical Rate No Result Required. 01/18/18 00:05 Pressure Support Vent No Result Required. 01/18/18 00:05 Sodium 137 mmol/L (136-145) 01/21/18 08:00 Potassium 3.9 mmol/L (3.5-5.1) 01/21/18 08:00 Chloride 97 mmol/L (98-107) L 01/21/18 08:00 Carbon Dioxide 23 mmol/L (21-32) 01/21/18 08:00 Anion Gap 17 MMOL/L (8-16) H 01/21/18 08:00 BUN 17 mg/dL (7-18) 01/21/18 08:00 Creatinine 4.0 mg/dL (0.55-1.3) H 01/21/18 08:00 Creat Clearance w eGFR 14.88 (>60) 01/21/18 08:00 POC Glucometer 110 UNITS (80-120) 01/21/18 11:21 Random Glucose 117 mg/dL (74-106) H 01/21/18 08:00 Lactic Acid 2.7 mmol/L (0.4-2.0) H* 01/17/18 23:43 Calcium 9.4 mg/dL (8.5-10.1) 01/21/18 08:00 Phosphorus 2.8 mg/dL (2.5-4.9) 01/17/18 06:36 Magnesium 2.0 mg/dL (1.8-2.4) 01/17/18 06:36 Total Bilirubin 1.1 mg/dL (0.2-1) H 01/19/18 07:00 AST 24 U/L (15-37) 01/19/18 07:00 ALT 12 U/L (13-61) L 01/19/18 07:00 Alkaline Phosphatase 132 U/L (45-117) H 01/19/18 07:00 Troponin I < 0.02 ng/ml (0.00-0.05) 01/17/18 23:43 B-Natriuretic Peptide > 308112.0 pg/ml (5-125) H 01/16/18 17:25 Total Protein 7.8 g/dl (6.4-8.2) 01/19/18 07:00 Albumin 2.2 g/dl (3.4-5.0) L 01/19/18 07:00 Blood Type O POSITIVE 01/16/18 17:25 Antibody Screen Negative 01/16/18 17:25 Active Medications Acetaminophen (Ofirmev Injection -) 1,000 mg IVPB Q6H PRN PRN Reason: PAIN SCALE 5-10 Last Admin: 01/21/18 10:41 Dose: 1,000 mg Insulin Aspart (Novolog Vial Sliding Scale -) 1 vial SQ ACHS [facility]; Protocol Last Admin: 01/21/18 11:23 Dose: Not Given Latanoprost (Xalatan 0.005% Eye Drops -) 1 drop OD HS [facility] Last Admin: 01/20/18 22:55 Dose: 1 drop Levothyroxine Sodium (Synthroid Injection -) 37.5 mcg IVPUSH DAILY [facility] Last Admin: 01/21/18 10:41 Dose: 37.5 mcg Ondansetron HCl (Zofran Injection) 4 mg IVPUSH Q6H PRN PRN Reason: NAUSEA AND/OR VOMITING Last Admin: 01/17/18 09:12 Dose: 4 mg Polyethylene Glycol (Miralax (For Daily Use) -) 17 gm PO BID [facility] Last Admin: 01/21/18 10:41 Dose: Not Given Vancomycin HCl (Vancomycin (Pre-Docked)) 1,000 mg IVPB TuWeSa [facility] Last Admin: 01/20/18 13:44 Dose: Not Given assment / plan # SBO NGT in place --with bilious drainage more comfortable but still remains in pain await surgical reassessment FUA q am / Currentlly attempting to transfer to await INsurance authorization #s/p right TMA 01/03/18 non healing will need BKA nmow on hold awaiting resolution of SBO correction of INR dependent on schedule for OR Cardio clearance done recently for TMA Known to have chronic pericardial effusion Known osteomyelitis will need margins results post op to determine Abx Tx Cardio / ID / Nephrology #s/pPrevious RLE gangrene of toes 2-5 s/p amputation #osteomyelitis - #hyponatremia ( Na 129) improved today Na 133 #PVD PLavix on hold last dose day prior to admission #CKD5 on chronic HD (T/T/S) #DM on insulin / sliding scale # a fib -- a/c on coumadin INR 2.3 Coumadin on hold will trend -- repeat tonight if higher will treat with vit K PO and follow am labs #CAD #Cardiomyopathy s/p ICD #hypothyroid #HF -- echo done last admission had cardiac clearance 01/01/18 #anemia of chronic disease # hx of pericardial effusion -moderate / chronic >6 months hx of colon ca s/p resection hx of PE - on a/c hx of pneumopericardium Problem List - Problems (1) Gangrene of foot Code(s): I96 - GANGRENE, NOT ELSEWHERE CLASSIFIED (2) Open wound of foot Code(s): S91.309A - UNSPECIFIED OPEN WOUND, UNSPECIFIED FOOT, INITIAL ENCOUNTER Qualifiers: Encounter type: subsequent encounter Laterality: right Qualified Code(s) : S91.301D - Unspecified open wound, right foot, subsequent encounter (3) Anemia Code(s): D64.9 - ANEMIA, UNSPECIFIED Qualifiers: Anemia type: due to chronic kidney disease (4) Atrial fibrillation Code(s): I48.91 - UNSPECIFIED ATRIAL FIBRILLATION Qualifiers: Atrial fibrillation type: permanent Qualified Code(s): I48.2 - Chronic atrial fibrillation (5) Cardiomyopathy Code(s): I42.9 - CARDIOMYOPATHY, UNSPECIFIED Qualifiers: Cardiomyopathy type: unspecified Qualified Code(s): I42.9 - Cardiomyopathy , unspecified (6) Chronic kidney disease (CKD), stage V Code(s): N18.5 - CHRONIC KIDNEY DISEASE, STAGE 5 (7) Chronic kidney disease on chronic dialysis Code(s): N18.6 - END STAGE RENAL DISEASE; Z99.2 - DEPENDENCE ON RENAL DIALYSIS (8) Diabetes mellitus Code(s): E11.9 - TYPE 2 DIABETES MELLITUS WITHOUT COMPLICATIONS Qualifiers: Diabetes mellitus type: type 2 Diabetes mellitus senior living insulin use: with senior living use Diabetes mellitus complication detail: with peripheral angiopathy with gangrene (9) HTN (hypertension) Code(s): I10 - ESSENTIAL (PRIMARY) HYPERTENSION Qualifiers: Hypertension type: essential hypertension Qualified Code(s): I10 - Essential (primary) hypertension (10) Hypotension Code(s): I95.9 - HYPOTENSION, UNSPECIFIED Qualifiers: Hypotension type: other hypotension type Qualified Code(s): I95.89 - Other hypotension (11) Hypothyroid Code(s): E03.9 - HYPOTHYROIDISM, UNSPECIFIED Qualifiers: Hypothyroidism type: unspecified Qualified Code(s): E03.9 - Hypothyroidism , unspecified (12) ICD (implantable cardioverter-defibrillator) in place Code(s): Z95.810 - PRESENCE OF AUTOMATIC (IMPLANTABLE) CARDIAC DEFIBRILLATOR (13) Osteomyelitis Code(s): M86.9 - OSTEOMYELITIS, UNSPECIFIED Qualifiers: Osteomyelitis type: other Osteomyelitis location: foot Laterality: right Qualified Code(s): M86.8X7 - Other osteomyelitis, ankle and foot (14) Pericardial effusion Code(s): I31.3 - PERICARDIAL EFFUSION (NONINFLAMMATORY) (15) Status post peripheral artery angioplasty Code(s): Z98.62 - PERIPHERAL VASCULAR ANGIOPLASTY STATUS (16) Status post transmetatarsal amputation of right foot Code(s): Z89.431 - ACQUIRED ABSENCE OF RIGHT FOOT
[2018-01-21 14:23] LABS: ADD RBC MORPHOLOGY YES
[2018-01-21 14:24] LABS: ANISOCYTOSIS 2+
[2018-01-21 14:26] LABS: OVALOCYTE 1+; TARGET CELLS 1+; TEAR DROP CELLS 1+
[2018-01-21 14:27] LABS: PLATELET ESTIMATE ADEQUATE
--- NOTE | 2018-01-21 16:53 | PN ---
Progress Note, Physician History of Present Illness: Pt seen and examined at bedside. He is awake and alert. He has an NG tube to suction. He is accepted to [facility] pending insurance. - Current Medication List Current Medications: Active Medications Acetaminophen (Ofirmev Injection -) 1,000 mg IVPB Q6H PRN PRN Reason: PAIN SCALE 5-10 Last Admin: 01/21/18 10:41 Dose: 1,000 mg Insulin Aspart (Novolog Vial Sliding Scale -) 1 vial SQ ACHS [facility]; Protocol Last Admin: 01/21/18 11:23 Dose: Not Given Latanoprost (Xalatan 0.005% Eye Drops -) 1 drop OD HS [facility] Last Admin: 01/20/18 22:55 Dose: 1 drop Levothyroxine Sodium (Synthroid Injection -) 37.5 mcg IVPUSH DAILY [facility] Last Admin: 01/21/18 10:41 Dose: 37.5 mcg Ondansetron HCl (Zofran Injection) 4 mg IVPUSH Q6H PRN PRN Reason: NAUSEA AND/OR VOMITING Last Admin: 01/17/18 09:12 Dose: 4 mg Polyethylene Glycol (Miralax (For Daily Use) -) 17 gm PO BID [facility] Last Admin: 01/21/18 10:41 Dose: Not Given Vancomycin HCl (Vancomycin (Pre-Docked)) 1,000 mg IVPB We [facility] Last Admin: 01/20/18 13:44 Dose: Not Given - Objective Vital Signs: Vital Signs Temperature 97.5 F L 01/21/18 15:34 Pulse Rate 67 01/21/18 15:34 Respiratory Rate 20 01/21/18 15:34 Blood Pressure 97/63 01/21/18 15:34 O2 Sat by Pulse Oximetry (%) 96 01/21/18 09:00 Constitutional: Yes: Mild Distress Eyes: Yes: Conjunctiva Clear Cardiovascular: Yes: S2 Respiratory: Yes: On Nasal O2 Gastrointestinal: Yes: Tenderness Genitourinary: Yes: WNL Edema: Yes Edema: LLE: 1+, RLE: 1+ Wound/Incision: Yes: Dressing Dry and Intact Neurological: Yes: Oriented Psychiatric: Yes: Oriented Labs: CBC, BMP 01/21/18 08:00 01/21/18 08:00 INR, PTT INR 2.13 (0.83-1.09) H 01/21/18 08:00 Problem List - Problems (1) Gangrene of foot Code(s): I96 - GANGRENE, NOT ELSEWHERE CLASSIFIED (2) Anemia Code(s): D64.9 - ANEMIA, UNSPECIFIED Qualifiers: Anemia type: due to chronic kidney disease (3) ESRD (end stage renal disease) Code(s): N18.6 - END STAGE RENAL DISEASE Assessment/Plan Current Medications Generic Name Dose Route Start Last Admin Trade Name Freq PRN Reason Stop Dose Admin Acetaminophen 1,000 mg 01/21/18 10:23 01/21/18 10:41 Ofirmev Injection - IVPB 1,000 mg Q6H PRN Administration PAIN SCALE 5-10 Insulin Aspart 1 vial 01/18/18 07:00 01/21/18 11:23 Novolog Vial Sliding Scale - SQ Not Given ACHS [facility] Protocol Latanoprost 1 drop 01/17/18 22:00 01/20/18 22:55 Xalatan 0.005% Eye Drops - OD 1 drop HS [facility] Administration Levothyroxine Sodium 37.5 mcg 01/18/18 10:00 01/21/18 10:41 Synthroid Injection - IVPUSH 37.5 mcg DAILY [facility] Administration Ondansetron HCl 4 mg 01/17/18 09:05 01/17/18 09:12 Zofran Injection IVPUSH 4 mg Q6H PRN Administration NAUSEA AND/OR VOMITING Polyethylene Glycol 17 gm 01/19/18 22:00 01/21/18 10:41 Miralax (For Daily Use) - PO Not Given BID [facility] Vancomycin HCl 1,000 mg 01/19/18 14:00 01/20/18 13:44 Vancomycin (Pre-Docked) IVPB Not Given TuWeSa [facility] Impression 1. ESRD 2. hx pericardial effusion 3. hx pneumopericardium 4. hypothyroidism 5. a-fib 6. hypotension 7. hx of colon cancer 8. CHF 9. DM 10. hx of PE 11. CAD 12. right stump infection 13. SBO Plan - pt was dialyzed yesterday - he is admitted to [facility] - ng tube to suction - surgery follow up - discussed with medical team - bknathan on hold for now - cont wound care - epogen for anemia Dr Conklin
--- NOTE | 2018-01-21 17:21 | PN ---
Progress Note (short form) - Note Progress Note: 01/21/18 surgery pt seen and exmamined. failed liquids and had ngt replaced yesterday. was in pain that is now better. no flatus or bm. Arrangement are being made for transfer to a tertiary care center. official ct consistent with severe ileus vs distal sbo. abd- soft, moderate distension, reducible incisional hernia Plan- clinically mechanical sbo. cont conservative management as pt is very high risk for surgery. Should be transferred to tertiary care center in case he needs surgery. Patient cannot have surgery here because of his complex medical issues. If patients develops bowel compromise before being able to be transferred will have a dismal prognosis. 01/18/18 surgery 72m with heart failure from dilated cardiomyopathy, ef<20%, pe, afib, AICD, copd , renal failure, dm, hyponatremia, colon cancer [place] [facility] [place]av[place] coumadin 01/17?, admitted for foot gangrene and sepsis, underwent ct head for mental status changes along with ct of abd with overlying left hand without oral contrast. apparently there is a report of sbo at an anastamosis that the internest saw but no official report in the computer. If ct is read as sbo then pt should be transferred to a tertiary care center as he is not a candidate for surgery at this community hospital. More likely this is a poor quality study and should be repeated with oral contrast as ileus would be a more probable diagnosis. suggest gi eval.
[2018-01-21] MEDS ORDERED: LORazepam 2 MG/ML SDV VIAL IVPUSH ONE (19:45)
[2018-01-21] MEDS: LATANOPROST 0.005% OPHTH SOLN 2.5ML BOTTLE OD SCH (21:07)
[2018-01-22] MEDS: ACETAMINOPHEN 1000 MG/100 ML VIAL (NON FORMULARY) IVPB PRN ×3 (04:14→22:17)
[2018-01-22] MEDS: INSULIN SLIDING SCALE (NOVOLOG) 1 VIAL SQ SCH ×4 (06:28→22:01)
[2018-01-22 07:38] LABS: BASO % 0.5 % (0-2.0); EOS % 3.7 % (0-4.5); HEMOGLOBIN 10.5 GM/dL (11.7-16.9); LYMPH % 10.1 % (8-40); MCH 29.4 pg (25.7-33.7); MEAN CELL VOLUME 97.9 fl (80-96); MEAN PLT VOLUME 9.1 fl (7.5-11.1); MONO % 33.5 % (3.8-10.2); NEUT % 52.2 % (42.8-82.8); PLATELET COUNT 197 K/MM3 (134-434); RBC 3.57 M/mm3 (4.00-5.60); RDW 22.8 % (11.9-15.9); WHITE BLOOD COUNT 3.3 K/mm3 (4.0-10.0)
[2018-01-22 07:52] LABS: INR 1.91 (0.83-1.09); PROTHROMBIN TIME (PATIENT) 22.7 SEC (9.7-13.0)
[2018-01-22 08:14] LABS: ANION GAP 15 MMOL/L (8-16); BLOOD UREA NITROGEN 23 mg/dL (7-18); CALCIUM 9.4 mg/dL (8.5-10.1); CHLORIDE 97 mmol/L (98-107); CO2 25 mmol/L (21-32); CREATININE 4.9 mg/dL (0.55-1.3); GLUCOSE,RANDOM 103 mg/dL (74-106); POTASSIUM 3.9 mmol/L (3.5-5.1); SODIUM 137 mmol/L (136-145)
[2018-01-22] MEDS: POLYETHYLENE GLYCOL 3350 119 GM BTL PO SCH ×2 (09:52→22:01)
[2018-01-22] MEDS: LEVOTHYROXINE SODIUM 100 MCG VIAL IVPUSH SCH (09:54)
--- NOTE | 2018-01-22 10:56 | PN ---
GI Progress Note Subjective: GI NOte: Weekend events noted. Now has NG suctioning for SBO. Stagnant small bowel contents returning. Pain has been relieved - Objective Vital Signs: Vital Signs Temperature 97.8 F 01/22/18 06:00 Pulse Rate 67 01/22/18 06:00 Respiratory Rate 20 01/22/18 06:00 Blood Pressure 106/60 01/22/18 06:00 O2 Sat by Pulse Oximetry (%) 96 01/21/18 21:00 Laboratory Tests 01/21/18 01/22/18 08:00 06:30 Hgb 10.3 L 10.5 L Constitutional: Anxious Gastrointestinal Inspection: Yes: Distention ...Auscultate: Yes: Hypoactive Bowel Sounds ...Palpate: Yes: Soft, Other (nontender) Labs: CBC, BMP 01/22/18 06:30 01/22/18 06:30 INR, PTT INR 1.91 (0.83-1.09) H 01/22/18 06:30 Assessment/Plan Persistent SBO Awaiting transfer to tertiary care center Continue NG suctioning Problem List - Problems (1) Small bowel obstruction due to adhesions Code(s): K56.50 - INTESTNL ADHESIONS, UNSP TO PARTIAL VERSUS COMPLETE OBST (2) Ileus Code(s): K56.7 - ILEUS, UNSPECIFIED (3) Gangrene of foot Code(s): I96 - GANGRENE, NOT ELSEWHERE CLASSIFIED (4) Atrial fibrillation Code(s): I48.91 - UNSPECIFIED ATRIAL FIBRILLATION Qualifiers: Atrial fibrillation type: permanent Qualified Code(s): I48.2 - Chronic atrial fibrillation (5) Chronic kidney disease on chronic dialysis Code(s): N18.6 - END STAGE RENAL DISEASE; Z99.2 - DEPENDENCE ON RENAL DIALYSIS (6) Gangrene of toe of right foot Code(s): I96 - GANGRENE, NOT ELSEWHERE CLASSIFIED (7) ICD (implantable cardioverter-defibrillator) in place Code(s): Z95.810 - PRESENCE OF AUTOMATIC (IMPLANTABLE) CARDIAC DEFIBRILLATOR (8) History of malignant neoplasm of colon in adulthood Code(s): Z85.038 - PERSONAL HISTORY OF MALIGNANT NEOPLASM OF LARGE INTESTINE
--- NOTE | 2018-01-22 11:06 | PN ---
Progress Note, Physician History of Present Illness: Patient has continued abd pain and distension, marginal improvement with NGT, CT scan interpreted as distal SBO at anastamotic site, denies BM or flatus. [employer] Service Attendant: Dr. Ghassan Durant - Current Medication List Current Medications: Active Medications Acetaminophen (Ofirmev Injection -) 1,000 mg IVPB Q6H PRN PRN Reason: PAIN SCALE 5-10 Last Admin: 01/22/18 09:54 Dose: 1,000 mg Insulin Aspart (Novolog Vial Sliding Scale -) 1 vial SQ ACHS [facility]; Protocol Last Admin: 01/22/18 06:28 Dose: Not Given Latanoprost (Xalatan 0.005% Eye Drops -) 1 drop OD HS [facility] Last Admin: 01/21/18 21:07 Dose: 1 drop Levothyroxine Sodium (Synthroid Injection -) 37.5 mcg IVPUSH DAILY [facility] Last Admin: 01/22/18 09:54 Dose: 37.5 mcg Ondansetron HCl (Zofran Injection) 4 mg IVPUSH Q6H PRN PRN Reason: NAUSEA AND/OR VOMITING Last Admin: 01/17/18 09:12 Dose: 4 mg Polyethylene Glycol (Miralax (For Daily Use) -) 17 gm PO BID [facility] Last Admin: 01/22/18 09:52 Dose: Not Given Vancomycin HCl (Vancomycin (Pre-Docked)) 1,000 mg IVPB WeSa [facility]PL[facility] Last Admin: 01/20/18 13:44 Dose: Not Given - Objective Vital Signs: Vital Signs Temperature 97.8 F 01/22/18 06:00 Pulse Rate 67 01/22/18 06:00 Respiratory Rate 20 01/22/18 06:00 Blood Pressure 106/60 01/22/18 06:00 O2 Sat by Pulse Oximetry (%) 96 01/21/18 21:00 Constitutional: Yes: No Distress, Calm, Thin Neck: Yes: Supple Cardiovascular: Yes: Regular Rate and Rhythm Respiratory: Yes: Regular, Diminished Gastrointestinal: Yes: Distention, Hypoactive Bowel Sounds Edema: Yes Edema: LLE: 1+, RLE: 1+ Labs: CBC, BMP 01/22/18 06:30 01/22/18 06:30 INR, PTT INR 1.91 (0.83-1.09) H 01/22/18 06:30 - ....Imaging X-ray: Report Reviewed (SBO persists) Problem List - Problems (1) Gangrene of foot Code(s): I96 - GANGRENE, NOT ELSEWHERE CLASSIFIED (2) Atrial fibrillation Code(s): I48.91 - UNSPECIFIED ATRIAL FIBRILLATION Qualifiers: Atrial fibrillation type: permanent Qualified Code(s): I48.2 - Chronic atrial fibrillation (3) Cardiomyopathy Code(s): I42.9 - CARDIOMYOPATHY, UNSPECIFIED Qualifiers: Cardiomyopathy type: unspecified Qualified Code(s): I42.9 - Cardiomyopathy , unspecified (4) Chronic anticoagulation Code(s): Z79.01 - FUR FEEDER (CURRENT) USE OF 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 (5) Diabetes mellitus Code(s): E11.9 - TYPE 2 DIABETES MELLITUS WITHOUT COMPLICATIONS Qualifiers: Diabetes mellitus type: type 2 Diabetes mellitus long-term insulin use: with long-term use Diabetes mellitus complication detail: with peripheral angiopathy with gangrene (6) ESRD (end stage renal disease) Code(s): N18.6 - END STAGE RENAL DISEASE (7) Hypothyroid Code(s): E03.9 - HYPOTHYROIDISM, UNSPECIFIED Qualifiers: Hypothyroidism type: unspecified Qualified Code(s): E03.9 - Hypothyroidism , unspecified (8) ICD (implantable cardioverter-defibrillator) in place Code(s): Z95.810 - PRESENCE OF AUTOMATIC (IMPLANTABLE) CARDIAC DEFIBRILLATOR (9) Open wound of foot Code(s): S91.309A - UNSPECIFIED OPEN WOUND, UNSPECIFIED FOOT, INITIAL ENCOUNTER Qualifiers: Encounter type: subsequent encounter Laterality: right Qualified Code(s) : S91.301D - Unspecified open wound, right foot, subsequent encounter (10) Pericardial effusion Code(s): I31.3 - PERICARDIAL EFFUSION (NONINFLAMMATORY) (11) Pre-operative cardiovascular examination Code(s): Z01.810 - ENCOUNTER FOR PREPROCEDURAL CARDIOVASCULAR EXAMINATION (12) Status post peripheral artery angioplasty Code(s): Z98.62 - PERIPHERAL VASCULAR ANGIOPLASTY STATUS (13) Status post transmetatarsal amputation of right foot Code(s): Z89.431 - ACQUIRED ABSENCE OF RIGHT FOOT (14) Small bowel obstruction due to adhesions Code(s): K56.50 - INTESTNL ADHESIONS, UNSP TO PARTIAL VERSUS COMPLETE OBST Assessment/Plan 09/12/2017 Echo: Moderate pericardial effusion, no tamponade, mildly dilated LV with severely decreased LV fxn, mild-mod dilated RV with severely decreased RV fxn, mod-severe MUKUL, mild MR, mild-mod TR, mild AR 10/05/2017 Echo: Moderately dilated with severely decreased LV fxn, RV dilated with severely decreased RV fxn, mod LAE, mild MR, mod TR, mild AR, mod pericardial effusion similar to previous 1. Pre-operative cardiovascular evaluation 2. Peripheral artery disease, gangrene right forefoot post right tibial revacularization and debridement of bone and soft tissue post Chopart level amputation right foot, now planned for right BKA 3. Distal SBO 4. Ischemic dilated cardiomyopathy with chronic class I-II NYHA classification LV failure, compensated/euvolemic, post prophylactic ICD implant 5. CAD post ID with history of demand ischemic injury angina pectoris, clinically stable 6. Persistent atrial fibrillation [id number] score of 3-4 off Coumadin pre- opnow with subtherapeutic INR 7. Pericardial effusion probably uremic pericarditis, moderate to large in severity/no tamponade 8. Diabetes mellitus 9. Hypothyroidism 10. History of PTE 11. ESRD 12. History of colon cancer PLAN: 1. Empiric antibiotic course as per ID 2. HD as per renal service, replete K 3. Hold Plavix and Coumadin pre-op, start heparin gtt as INR<2.0 with close monitoring of CBC and PTT 4. NGT decompression, patient awaiting transfer to surgery service at [facility] pending insurance approval 5. Resume Toprol XL 12.5 qd and Entresto 24/26 bid once able to tolerate oral 6. Given absence of symptoms of acute coronary syndrome, decompensated CHF or malignant arrhythmia, may proceed with surgical intervention and JOSSIE from CV- standpoint once INR is acceptable [employer] Service Attendant: Dr. Ghassan Durant
[2018-01-22] MEDS ORDERED: HEPARIN NA (PORCINE) 5,000 UNITS/ML 1ML VIAL IVPUSH PRN ×2 (11:14)
--- NOTE | 2018-01-22 11:47 | PN ---
Progress Note (short form) - Note Progress Note: NGT in place with bilious drainage continues with abdominal pain/ but states much less FUA ordered q am -- persistent SBO Vital Signs Period Temp Pulse Resp BP Sys/Yoon Pulse Ox Last 24 Hr 97.5 F-98 F 62-67 20-20 97-112/60-[address] with bilious drainage neck heart S1/S2 ireg lungs clear / decreased at bases abd remains distended ( less tense ) + tender to palpation + guarding ext unchanged CBC, BMP 01/22/18 06:30 01/22/18 06:30 Active Medications Acetaminophen (Ofirmev Injection -) 1,000 mg IVPB Q6H PRN PRN Reason: PAIN SCALE 5-10 Last Admin: 01/22/18 09:54 Dose: 1,000 mg Heparin Sodium (Porcine) (Heparin -) 1,000 unit IVPUSH PRN PRN PRN Reason: Heparin Heparin Sodium (Porcine) (Heparin -) 5,000 unit IVPUSH PRN PRN PRN Reason: Heparin Heparin Sodium (Porcine) 25, (000 unit/ Sodium Chloride) 500 mls @ 20 mls/hr IV TITR [facility]; Protocol Insulin Aspart (Novolog Vial Sliding Scale -) 1 vial SQ ACHS [facility]; Protocol Last Admin: 01/22/18 06:28 Dose: Not Given Latanoprost (Xalatan 0.005% Eye Drops -) 1 drop OD HS [facility] Last Admin: 01/21/18 21:07 Dose: 1 drop Levothyroxine Sodium (Synthroid Injection -) 37.5 mcg IVPUSH DAILY [facility] Last Admin: 01/22/18 09:54 Dose: 37.5 mcg Ondansetron HCl (Zofran Injection) 4 mg IVPUSH Q6H PRN PRN Reason: NAUSEA AND/OR VOMITING Last Admin: 01/17/18 09:12 Dose: 4 mg Polyethylene Glycol (Miralax (For Daily Use) -) 17 gm PO BID [facility] Last Admin: 01/22/18 09:52 Dose: Not Given Vancomycin HCl (Vancomycin (Pre-Docked)) 1,000 mg IVPB TuWeSa [facility] Last Admin: 01/20/18 13:44 Dose: Not Given assment / plan # SBO ( day 3) NGT in place --with bilious drainage more comfortable but still remains in pain distal SBO persist FUA q am / Currentlly attempting to transfer to await INsurance authorization spoke to [facility]- transfer pending authorization #s/p right TMA 01/03/18 non healing will need BKA nmow on hold awaiting resolution of SBO correction of INR dependent on schedule for OR Cardio clearance done recently for TMA Known to have chronic pericardial effusion Known osteomyelitis will need margins results post op to determine Abx Tx Cardio / ID / Nephrology #s/pPrevious RLE gangrene of toes 2-5 s/p amputation #osteomyelitis - #hyponatremia ( Na 129) improved today Na 133 #PVD PLavix on hold last dose day prior to admission #CKD5 on chronic HD (T/T/S) #DM on insulin / sliding scale # a fib -- a/c on coumadin INR 2.3 Coumadin on hold will trend -- repeat tonight if higher will treat with vit K PO and follow am labs #CAD #Cardiomyopathy s/p ICD #hypothyroid #HF -- echo done last admission had cardiac clearance 01/01/18 #anemia of chronic disease # hx of pericardial effusion -moderate / chronic >6 months hx of colon ca s/p resection hx of PE - on a/c hx of pneumopericardium Problem List - Problems (1) Gangrene of foot Code(s): I96 - GANGRENE, NOT ELSEWHERE CLASSIFIED (2) Open wound of foot Code(s): S91.309A - UNSPECIFIED OPEN WOUND, UNSPECIFIED FOOT, INITIAL ENCOUNTER Qualifiers: Encounter type: subsequent encounter Laterality: right Qualified Code(s) : S91.301D - Unspecified open wound, right foot, subsequent encounter (3) Anemia Code(s): D64.9 - ANEMIA, UNSPECIFIED Qualifiers: Anemia type: due to chronic kidney disease (4) Atrial fibrillation Code(s): I48.91 - UNSPECIFIED ATRIAL FIBRILLATION Qualifiers: Atrial fibrillation type: permanent Qualified Code(s): I48.2 - Chronic atrial fibrillation (5) Cardiomyopathy Code(s): I42.9 - CARDIOMYOPATHY, UNSPECIFIED Qualifiers: Cardiomyopathy type: unspecified Qualified Code(s): I42.9 - Cardiomyopathy , unspecified (6) Chronic kidney disease (CKD), stage V Code(s): N18.5 - CHRONIC KIDNEY DISEASE, STAGE 5 (7) Chronic kidney disease on chronic dialysis Code(s): N18.6 - END STAGE RENAL DISEASE; Z99.2 - DEPENDENCE ON RENAL DIALYSIS (8) Diabetes mellitus Code(s): E11.9 - TYPE 2 DIABETES MELLITUS WITHOUT COMPLICATIONS Qualifiers: Diabetes mellitus type: type 2 Diabetes mellitus intermediate insulin use: with intermediate use Diabetes mellitus complication detail: with peripheral angiopathy with gangrene (9) HTN (hypertension) Code(s): I10 - ESSENTIAL (PRIMARY) HYPERTENSION Qualifiers: Hypertension type: essential hypertension Qualified Code(s): I10 - Essential (primary) hypertension (10) Hypotension Code(s): I95.9 - HYPOTENSION, UNSPECIFIED Qualifiers: Hypotension type: other hypotension type Qualified Code(s): I95.89 - Other hypotension (11) Hypothyroid Code(s): E03.9 - HYPOTHYROIDISM, UNSPECIFIED Qualifiers: Hypothyroidism type: unspecified Qualified Code(s): E03.9 - Hypothyroidism , unspecified (12) ICD (implantable cardioverter-defibrillator) in place Code(s): Z95.810 - PRESENCE OF AUTOMATIC (IMPLANTABLE) CARDIAC DEFIBRILLATOR (13) Osteomyelitis Code(s): M86.9 - OSTEOMYELITIS, UNSPECIFIED Qualifiers: Osteomyelitis type: other Osteomyelitis location: foot Laterality: right Qualified Code(s): M86.8X7 - Other osteomyelitis, ankle and foot (14) Pericardial effusion Code(s): I31.3 - PERICARDIAL EFFUSION (NONINFLAMMATORY) (15) Status post peripheral artery angioplasty Code(s): Z98.62 - PERIPHERAL VASCULAR ANGIOPLASTY STATUS (16) Status post transmetatarsal amputation of right foot Code(s): Z89.431 - ACQUIRED ABSENCE OF RIGHT FOOT
[2018-01-22 12:22] LABS: ANISOCYTOSIS 2+; MACROCYTOSIS 1+; OVALOCYTE 1+; PLATELET ESTIMATE NORMAL; TARGET CELLS 1+; TEAR DROP CELLS 1+
--- NOTE | 2018-01-22 13:03 | PN ---
Progress Note (short form) - Note Progress Note: NGT in place. Abdominal discomfort persists. No CP or SOB. Intake & Output 01/19/18 01/20/18 01/21/18 01/22/18 23:59 23:59 23:59 23:59 Intake Total 750 480 Output Total 1200 400 Balance 750 480 -1200 -400 Weight 185 lb 181 lb 183 lb 1 oz 186 lb 6 oz Last Vital Signs Temp Pulse Resp BP Pulse Ox 97.3 F L 67 20 98/49 L 96 01/22/18 11:49 01/22/18 11:49 01/22/18 11:49 01/22/18 11:49 01/21/18 21:00 Active Medications Acetaminophen (Ofirmev Injection -) 1,000 mg IVPB Q6H PRN PRN Reason: PAIN SCALE 5-10 Last Admin: 01/22/18 09:54 Dose: 1,000 mg Heparin Sodium (Porcine) (Heparin -) 1,000 unit IVPUSH PRN PRN PRN Reason: Heparin Heparin Sodium (Porcine) (Heparin -) 5,000 unit IVPUSH PRN PRN PRN Reason: Heparin Heparin Sodium (Porcine) 25, (000 unit/ Sodium Chloride) 500 mls @ 20 mls/hr IV TITR [facility]; Protocol Insulin Aspart (Novolog Vial Sliding Scale -) 1 vial SQ ACHS [facility]; Protocol Last Admin: 01/22/18 12:02 Dose: Not Given Latanoprost (Xalatan 0.005% Eye Drops -) 1 drop OD HS [facility] Last Admin: 01/21/18 21:07 Dose: 1 drop Levothyroxine Sodium (Synthroid Injection -) 37.5 mcg IVPUSH DAILY [facility] Last Admin: 01/22/18 09:54 Dose: 37.5 mcg Ondansetron HCl (Zofran Injection) 4 mg IVPUSH Q6H PRN PRN Reason: NAUSEA AND/OR VOMITING Last Admin: 01/17/18 09:12 Dose: 4 mg Polyethylene Glycol (Miralax (For Daily Use) -) 17 gm PO BID [facility] Last Admin: 01/22/18 09:52 Dose: Not Given Vancomycin HCl (Vancomycin (Pre-Docked)) 1,000 mg IVPB TuWeSa [facility] Last Admin: 01/20/18 13:44 Dose: Not Given Gen: Uncomfortable due to GI symptoms Heart: RRR Lung: decreased breath sounds at the bases Abd: distended, tender, (-) rigidity Ext: + edema Laboratory Results - last 24 hr 01/21/18 01/21/18 01/21/18 08:00 08:00 16:14 WBC RBC Hgb Hct MCV MCH MCHC RDW Plt Count MPV Absolute Neuts (auto) Total Counted 100 Cancelled Neutrophils % Rad Tech Neutrophils % (Manual) 68.0 D Cancelled Band Neutrophils % Cancelled Lymphocytes % Rad Tech Lymphocytes % (Manual) 18.0 Cancelled Monocytes % Rad Tech Monocytes % (Manual) 7 Cancelled Eosinophils % Rad Tech Eosinophils % (Manual) Cancelled Basophils % Rad Tech Basophils % (Manual) Cancelled Myelocytes % (Man) Cancelled Promyelocytes % (Man) Cancelled Blast Cells % (Manual) Cancelled Nucleated RBC % 2 H Cancelled Metamyelocytes Cancelled Differential Comment Cancelled Hypersegmented Neuts Cancelled Plasma Cells Cancelled Smudge Cells Cancelled Other Cell Type Cancelled Hypochromia Cancelled Toxic Granulation Cancelled Dohle Bodies Cancelled Parmjit Rods Cancelled Platelet Estimate Adequate Cancelled Platelet Comment Large platelets Cancelled Polychromasia 2+ Cancelled Poikilocytosis Cancelled Basophilic Stippling Cancelled Anisocytosis 2+ Cancelled Microcytosis Cancelled Macrocytosis Cancelled Spherocytes Cancelled Siderocytes Cancelled Sickle Cells Cancelled Target Cells 1+ Cancelled Tear Drop Cells 1+ Cancelled Ovalocytes 1+ Cancelled Stomatocytes Cancelled Helmet Cells Cancelled [place] Bodies Cancelled [place] Rings Cancelled Enrique Cells 1+ Cancelled Acanthocytes (Spur) Cancelled Rouleaux Cancelled Fragmented RBCs Cancelled Schistocytes Cancelled PT with INR INR Sodium Potassium Chloride Carbon Dioxide Anion Gap BUN Creatinine Creat Clearance w eGFR POC Glucometer 121 Random Glucose Calcium 01/21/18 01/22/18 01/22/18 21:05 06:27 06:30 WBC 3.3 L RBC 3.57 L Hgb 10.5 L Hct 35.0 L MCV 97.9 H MCH 29.4 MCHC 30.0 L RDW 22.8 H Plt Count 197 MPV 9.1 Absolute Neuts (auto) 1.7 Total Counted Neutrophils % 52.2 D Neutrophils % (Manual) 53.9 D Band Neutrophils % 2.9 Lymphocytes % 10.1 D Lymphocytes % (Manual) 5.9 L D Monocytes % 33.5 H Monocytes % (Manual) 18 H D Eosinophils % 3.7 D Eosinophils % (Manual) 3.9 Basophils % 0.5 Basophils % (Manual) 1.0 Myelocytes % (Man) 0 Promyelocytes % (Man) 0 Blast Cells % (Manual) 0 Nucleated RBC % 2 H Metamyelocytes 0 Differential Comment Hypersegmented Neuts Plasma Cells Smudge Cells Other Cell Type Hypochromia 1+ Toxic Granulation Dohle Bodies Parmjit Rods Platelet Estimate Normal Platelet Comment Present Polychromasia 1+ Poikilocytosis 1+ Basophilic Stippling Anisocytosis 2+ Microcytosis 0 Macrocytosis 1+ Spherocytes 1+ Siderocytes Sickle Cells Target Cells 1+ Tear Drop Cells 1+ Ovalocytes 1+ Stomatocytes Helmet Cells [place] Bodies [place] Cells 1+ Acanthocytes (Spur) Rouleaux Fragmented RBCs Schistocytes PT with INR INR Sodium Potassium Chloride Carbon Dioxide Anion Gap BUN Creatinine Creat Clearance w eGFR POC Glucometer 102 108 Random Glucose Calcium 01/22/18 01/22/18 01/22/18 06:30 06:30 11:13 WBC RBC Hgb Hct MCV MCH MCHC RDW Plt Count MPV Absolute Neuts (auto) Total Counted Neutrophils % Neutrophils % (Manual) Band Neutrophils % Lymphocytes % Lymphocytes % (Manual) Monocytes % Monocytes % (Manual) Eosinophils % Eosinophils % (Manual) Basophils % Basophils % (Manual) Myelocytes % (Man) Promyelocytes % (Man) Blast Cells % (Manual) Nucleated RBC % Metamyelocytes Differential Comment Hypersegmented Neuts Plasma Cells Smudge Cells Other Cell Type Hypochromia Toxic Granulation Dohle Bodies Parmjit Rods Platelet Estimate Platelet Comment Polychromasia Poikilocytosis Basophilic Stippling Anisocytosis Microcytosis Macrocytosis Spherocytes Siderocytes Sickle Cells Target Cells Tear Drop Cells Ovalocytes Stomatocytes Helmet Cells [place] Bodies [place] Rings Enrique Cells Acanthocytes (Spur) Rouleaux Fragmented RBCs Schistocytes PT with INR 22.70 H INR 1.91 H Sodium 137 Potassium 3.9 Chloride 97 L Carbon Dioxide 25 Anion Gap 15 BUN 23 H Creatinine 4.9 H Creat Clearance w eGFR 11.77 POC Glucometer 105 Random Glucose 103 Calcium 9.4 ASSESSMENT AND PLAN: Small Bowel Obstruction Lactic Acidosis CAD LV Systolic Dysfunction PAD for R BKA ESRD on HD Atrial Fibrillation Pericardial Effusion DM Hypothyroidism h/o Colon Ca - NGT decompression - HD Per Renal - rate control - O2 as needed - For possible transfer to tertiary care Dr Huntley
--- NOTE | 2018-01-22 14:27 | PN ---
Progress Note, Physician History of Present Illness: still with abd pain ng tube in place - Current Medication List Current Medications: Active Medications Acetaminophen (Ofirmev Injection -) 1,000 mg IVPB Q6H PRN PRN Reason: PAIN SCALE 5-10 Last Admin: 01/22/18 09:54 Dose: 1,000 mg Heparin Sodium (Porcine) (Heparin -) 1,000 unit IVPUSH PRN PRN PRN Reason: Heparin Heparin Sodium (Porcine) (Heparin -) 5,000 unit IVPUSH PRN PRN PRN Reason: Heparin Heparin Sodium (Porcine) 25, (000 unit/ Sodium Chloride) 500 mls @ 20 mls/hr IV TITR [facility]; Protocol Insulin Aspart (Novolog Vial Sliding Scale -) 1 vial SQ ACHS [facility] BEDS AT [facility]; Protocol Last Admin: 01/22/18 12:02 Dose: Not Given Latanoprost (Xalatan 0.005% Eye Drops -) 1 drop OD HS [facility]S [facility] Last Admin: 01/21/18 21:07 Dose: 1 drop Levothyroxine Sodium (Synthroid Injection -) 37.5 mcg IVPUSH DAILY [facility] 234 BEDS AT [facility] Last Admin: 01/22/18 09:54 Dose: 37.5 mcg Ondansetron HCl (Zofran Injection) 4 mg IVPUSH Q6H PRN PRN Reason: NAUSEA AND/OR VOMITING Last Admin: 01/17/18 09:12 Dose: 4 mg Polyethylene Glycol (Miralax (For Daily Use) -) 17 gm PO BID [facility] 234 B[facility]S AT [facility] Last Admin: 01/22/18 09:52 Dose: Not Given Vancomycin HCl (Vancomycin (Pre-Docked)) 1,000 mg IVPB WeSa COUNTS [facility]CLUDE 234 BEDS AT [facility] Last Admin: 01/20/18 13:44 Dose: Not Given - Objective Vital Signs: Vital Signs Temperature 97.3 F L 01/22/18 11:49 Pulse Rate 67 01/22/18 11:49 Respiratory Rate 20 01/22/18 11:49 Blood Pressure 98/49 L 01/22/18 11:49 O2 Sat by Pulse Oximetry (%) 100 01/22/18 09:00 Constitutional: Yes: Calm, Moderate Distress Cardiovascular: Yes: Regular Rate and Rhythm Respiratory: Yes: Regular, CTA Bilaterally Gastrointestinal: Yes: Other (absent bowel sounds,ng tube in place) Musculoskeletal: Yes: WNL Extremities: Yes: Other Wound/Incision: Yes: Dressing Dry and Intact Neurological: Yes: Alert, Oriented Psychiatric: Yes: Alert, Oriented Labs: CBC, BMP 01/22/18 06:30 01/22/18 06:30 INR, PTT INR 1.91 (0.83-1.09) H 01/22/18 06:30 Assessment/Plan Problem List - Problems (1) Gangrene of foot Code(s): I96 - GANGRENE, NOT ELSEWHERE CLASSIFIED (2) Atrial fibrillation Code(s): I48.91 - UNSPECIFIED ATRIAL FIBRILLATION Qualifiers: Atrial fibrillation type: permanent Qualified Code(s): I48.2 - Chronic atrial fibrillation (3) Cardiomyopathy Code(s): I42.9 - CARDIOMYOPATHY, UNSPECIFIED Qualifiers: Cardiomyopathy type: unspecified Qualified Code(s): I42.9 - Cardiomyopathy , unspecified (4) Chronic anticoagulation Code(s): Z79.01 - SENIOR LIVING (CURRENT) USE OF 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 (5) Diabetes mellitus Code(s): E11.9 - TYPE 2 DIABETES MELLITUS WITHOUT COMPLICATIONS Qualifiers: Diabetes mellitus type: type 2 Diabetes mellitus nursing home insulin use: with nursing home use Diabetes mellitus complication detail: with peripheral angiopathy with gangrene (6) ESRD (end stage renal disease) Code(s): N18.6 - END STAGE RENAL DISEASE (7) Hypothyroid Code(s): E03.9 - HYPOTHYROIDISM, UNSPECIFIED Qualifiers: Hypothyroidism type: unspecified Qualified Code(s): E03.9 - Hypothyroidism , unspecified (8) ICD (implantable cardioverter-defibrillator) in place Code(s): Z95.810 - PRESENCE OF AUTOMATIC (IMPLANTABLE) CARDIAC DEFIBRILLATOR (9) Open wound of foot Code(s): S91.309A - UNSPECIFIED OPEN WOUND, UNSPECIFIED FOOT, INITIAL ENCOUNTER Qualifiers: Encounter type: subsequent encounter Laterality: right Qualified Code(s) : S91.301D - Unspecified open wound, right foot, subsequent encounter (10) Pericardial effusion Code(s): I31.3 - PERICARDIAL EFFUSION (NONINFLAMMATORY) (12) Status post peripheral artery angioplasty Code(s): Z98.62 - PERIPHERAL VASCULAR ANGIOPLASTY STATUS (13) Status post transmetatarsal amputation of right foot Code(s): Z89.431 - ACQUIRED ABSENCE OF RIGHT FOOT plan continue current mgmt rest as per the team patient awaiting surgery
[2018-01-22] MEDS: HEPARIN - 25,000 UNIT in SODIUM CHLORIDE 495 ML IV SCH (14:56)
--- NOTE | 2018-01-22 16:04 | PN ---
Progress Note, Physician History of Present Illness: Pt seen and examined at bedside. He is awake and alert. He has the NG tube to suction. - Current Medication List Current Medications: Active Medications Acetaminophen (Ofirmev Injection -) 1,000 mg IVPB Q6H PRN PRN Reason: PAIN SCALE 5-10 Last Admin: 01/22/18 09:54 Dose: 1,000 mg Heparin Sodium (Porcine) (Heparin -) 1,000 unit IVPUSH PRN PRN PRN Reason: Heparin Heparin Sodium (Porcine) (Heparin -) 5,000 unit IVPUSH PRN PRN PRN Reason: Heparin Heparin Sodium (Porcine) 25, (000 unit/ Sodium Chloride) 500 mls @ 20 mls/hr IV TITR [facility]; Protocol Last Admin: 01/22/18 14:56 Dose: 1,000 unit/hr, 20 mls/hr Insulin Aspart (Novolog Vial Sliding Scale -) 1 vial SQ ACHS [facility]; Protocol Last Admin: 01/22/18 12:02 Dose: Not Given Latanoprost (Xalatan 0.005% Eye Drops -) 1 drop OD HS [facility] Last Admin: 01/21/18 21:07 Dose: 1 drop Levothyroxine Sodium (Synthroid Injection -) 37.5 mcg IVPUSH DAILY [facility] Last Admin: 01/22/18 09:54 Dose: 37.5 mcg Ondansetron HCl (Zofran Injection) 4 mg IVPUSH Q6H PRN PRN Reason: NAUSEA AND/OR VOMITING Last Admin: 01/17/18 09:12 Dose: 4 mg Polyethylene Glycol (Miralax (For Daily Use) -) 17 gm PO BID [facility] Last Admin: 01/22/18 09:52 Dose: Not Given Vancomycin HCl (Vancomycin (Pre-Docked)) 1,000 mg IVPB TuWeSa [facility] Last Admin: 01/20/18 13:44 Dose: Not Given - Objective Vital Signs: Vital Signs Temperature 97.3 F L 01/22/18 11:49 Pulse Rate 67 01/22/18 11:49 Respiratory Rate 20 01/22/18 11:49 Blood Pressure 98/49 L 01/22/18 11:49 O2 Sat by Pulse Oximetry (%) 100 01/22/18 09:00 Constitutional: Yes: Calm Eyes: Yes: Conjunctiva Clear HENT: Yes: Atraumatic Neck: Yes: Supple Cardiovascular: Yes: S1, S2 Respiratory: Yes: CTA Bilaterally Gastrointestinal: Yes: Tenderness, Other (ng tube to suction) Genitourinary: Yes: WNL Musculoskeletal: Yes: Muscle Weakness Edema: Yes Edema: LLE: 1+, RLE: 1+ Wound/Incision: Yes: Dressing Dry and Intact Neurological: Yes: Oriented Psychiatric: Yes: Oriented Labs: CBC, BMP 01/22/18 06:30 01/22/18 06:30 INR, PTT INR 1.91 (0.83-1.09) H 01/22/18 06:30 Problem List - Problems (1) Gangrene of foot Code(s): I96 - GANGRENE, NOT ELSEWHERE CLASSIFIED (2) Anemia Code(s): D64.9 - ANEMIA, UNSPECIFIED Qualifiers: Anemia type: due to chronic kidney disease (3) ESRD (end stage renal disease) Code(s): N18.6 - END STAGE RENAL DISEASE Assessment/Plan Current Medications Generic Name Dose Route Start Last Admin Trade Name Carlene PRN Reason Stop Dose Admin Acetaminophen 1,000 mg 01/21/18 10:23 01/22/18 09:54 Ofirmev Injection - IVPB 1,000 mg Q6H PRN Administration PAIN SCALE 5-10 Heparin Sodium (Porcine) 1,000 unit 01/22/18 11:14 Heparin - IVPUSH PRN PRN Heparin Heparin Sodium (Porcine) 5,000 unit 01/22/18 11:14 Heparin - IVPUSH PRN PRN Heparin Heparin Sodium (Porcine) 25, 500 mls @ 20 mls/hr 01/22/18 11:15 01/22/18 14: 56 000 unit/ Sodium Chloride IV 1,000 unit/hr TITR [facility] 20 mls/hr Administration Protocol 1,000 UNIT/HR Insulin Aspart 1 vial 01/18/18 07:00 01/22/18 12:02 Novolog Vial Sliding Scale - SQ Not Given ACHS [facility] Protocol Latanoprost 1 drop 01/17/18 22:00 01/21/18 21:07 Xalatan 0.005% Eye Drops - OD 1 drop HS [facility] Administration Levothyroxine Sodium 37.5 mcg 01/18/18 10:00 01/22/18 09:54 Synthroid Injection - IVPUSH 37.5 mcg DAILY [facility] Administration Ondansetron HCl 4 mg 01/17/18 09:05 01/17/18 09:12 Zofran Injection IVPUSH 4 mg Q6H PRN Administration NAUSEA AND/OR VOMITING Polyethylene Glycol 17 gm 01/19/18 22:00 01/22/18 09:52 Miralax (For Daily Use) - PO Not Given BID [facility] Vancomycin HCl 1,000 mg 01/19/18 14:00 01/20/18 13:44 Vancomycin (Pre-Docked) IVPB Not Given TuWeSa [facility] Impression 1. ESRD 2. hx pericardial effusion 3. hx pneumopericardium 4. hypothyroidism 5. a-fib 6. hypotension 7. hx of colon cancer 8. CHF 9. DM 10. hx of PE 11. CAD 12. right stump infection 13. SBO Plan - HD tomorrow - ng tube to suction - pt pending transfer to [facility] - surgery follow up - discussed with medical team - shaniqua on hold for now - cont wound care - epogen for anemia Dr Conklin
[2018-01-22] MEDS ORDERED: PT OWN MED DRAWER 7, Y5N ONE (22:23)
[2018-01-22] MEDS: LATANOPROST 0.005% OPHTH SOLN 2.5ML BOTTLE OD SCH (22:33)
[2018-01-23] MEDS: INSULIN SLIDING SCALE (NOVOLOG) 1 VIAL SQ SCH ×4 (06:10→21:26)
[2018-01-23] MEDS ORDERED: SODIUM CHLORIDE 250 ML IV PRN (10:00)
--- NOTE | 2018-01-23 10:29 | PN ---
Progress Note (short form) - Note Progress Note: NGT in place, significant drainage of dark/brown output. Abdominal discomfort persists, but less. No CP or SOB. Intake & Output 01/20/18 01/21/18 01/22/18 01/23/18 23:59 23:59 23:59 23:59 Intake Total 480 150 240 Output Total 1200 1650 1100 Balance 480 -1200 -1500 -860 Weight 181 lb 183 lb 1 oz 186 lb 6 oz 191 lb 1 oz Last Vital Signs Temp Pulse Resp BP Pulse Ox 97.4 F L 64 18 110/60 99 01/23/18 08:40 01/23/18 08:45 01/23/18 08:45 01/23/18 08:45 01/22/18 22:00 Active Medications Acetaminophen (Ofirmev Injection -) 1,000 mg IVPB Q6H PRN PRN Reason: PAIN SCALE 5-10 Last Admin: 01/22/18 22:17 Dose: 1,000 mg Albumin Human (Albumin Human 25%) 12.5 gm IVPB Q30M [facility] Stop: 01/23/18 11:31 Heparin Sodium (Porcine) (Heparin -) 1,000 unit IVPUSH PRN PRN PRN Reason: Heparin Heparin Sodium (Porcine) (Heparin -) 5,000 unit IVPUSH PRN PRN PRN Reason: Heparin Heparin Sodium (Porcine) 25, (000 unit/ Sodium Chloride) 500 mls @ 20 mls/hr IV TITR [facility]; Protocol Last Titration: 01/23/18 08:45 Dose: 1,000 unit/hr, 20 mls/hr Insulin Aspart (Novolog Vial Sliding Scale -) 1 vial SQ ACHS [facility]; Protocol Last Admin: 01/23/18 06:10 Dose: Not Given Latanoprost (Xalatan 0.005% Eye Drops -) 1 drop OD HS [facility] Last Admin: 01/22/18 22:33 Dose: 1 drop Levothyroxine Sodium (Synthroid Injection -) 37.5 mcg IVPUSH DAILY [facility] Last Admin: 01/22/18 09:54 Dose: 37.5 mcg Ondansetron HCl (Zofran Injection) 4 mg IVPUSH Q6H PRN PRN Reason: NAUSEA AND/OR VOMITING Last Admin: 01/17/18 09:12 Dose: 4 mg Polyethylene Glycol (Miralax (For Daily Use) -) 17 gm PO BID [facility] Last Admin: 01/22/18 22:01 Dose: Not Given Vancomycin HCl (Vancomycin (Pre-Docked)) 1,000 mg IVPB We [facility] Last Admin: 01/20/18 13:44 Dose: Not Given Gen: Uncomfortable due to GI symptoms Heart: RRR Lung: decreased breath sounds at the bases Abd: distended, tender, (-) rigidity Ext: + edema Laboratory Results - last 24 hr 01/22/18 01/22/18 01/22/18 06:30 11:13 18:23 Neutrophils % (Manual) 53.9 D Band Neutrophils % 2.9 Lymphocytes % (Manual) 5.9 L D Monocytes % (Manual) 18 H D Eosinophils % (Manual) 3.9 Basophils % (Manual) 1.0 Myelocytes % (Man) 0 Promyelocytes % (Man) 0 Blast Cells % (Manual) 0 Metamyelocytes 0 Hypochromia 1+ Platelet Estimate Normal Platelet Comment Present Polychromasia 1+ Poikilocytosis 1+ Anisocytosis 2+ Microcytosis 0 Macrocytosis 1+ Spherocytes 1+ Target Cells 1+ Tear Drop Cells 1+ Ovalocytes 1+ [place] Cells 1+ PTT (Actin FS) POC Glucometer 105 101 01/22/18 01/22/18 01/23/18 20:50 21:17 05:24 Neutrophils % (Manual) Band Neutrophils % Lymphocytes % (Manual) Monocytes % (Manual) Eosinophils % (Manual) Basophils % (Manual) Myelocytes % (Man) Promyelocytes % (Man) Blast Cells % (Manual) Metamyelocytes Hypochromia Platelet Estimate Platelet Comment Polychromasia Poikilocytosis Anisocytosis Microcytosis Macrocytosis Spherocytes Target Cells Tear Drop Cells Ovalocytes [place] Cells PTT (Actin FS) 55.7 H POC Glucometer 99 98 01/23/18 06:30 Neutrophils % (Manual) Band Neutrophils % Lymphocytes % (Manual) Monocytes % (Manual) Eosinophils % (Manual) Basophils % (Manual) Myelocytes % (Man) Promyelocytes % (Man) Blast Cells % (Manual) Metamyelocytes Hypochromia Platelet Estimate Platelet Comment Polychromasia Poikilocytosis Anisocytosis Microcytosis Macrocytosis Spherocytes Target Cells Tear Drop Cells Ovalocytes [place] Cells PTT (Actin FS) 56.8 H POC Glucometer ASSESSMENT AND PLAN: Small Bowel Obstruction Lactic Acidosis CAD LV Systolic Dysfunction PAD for R BKA ESRD on HD Atrial Fibrillation Pericardial Effusion DM Hypothyroidism h/o Colon Ca - NGT decompression - HD Per Renal - rate control - O2 as needed - For possible transfer to tertiary care Dr Huntley
[2018-01-23] MEDS: ALBUMIN HUMAN 25% 12.5 GM/50 ML VIAL IVPB SCH (11:30)
[2018-01-23] MEDS: ACETAMINOPHEN 1000 MG/100 ML VIAL (NON FORMULARY) IVPB PRN (11:32)
[2018-01-23] MEDS: VANCOMYCIN 1 GRAM (PRE-DOCKED) 1,000 MG/250 ML BAG IVPB SCH ×2 (11:34→13:42)
[2018-01-23] MEDS: POLYETHYLENE GLYCOL 3350 119 GM BTL PO SCH ×2 (11:40→21:26)
[2018-01-23] MEDS ORDERED: PT OWN MED DRAWER 7, Y5N ONE (12:47)
[2018-01-23] MEDS: LEVOTHYROXINE SODIUM 100 MCG VIAL IVPUSH SCH (12:49)
--- NOTE | 2018-01-23 13:32 | PN ---
Progress Note, Physician History of Present Illness: no new issues awaiting for transfer ng tube still draining abd pain still present - Current Medication List Current Medications: Active Medications Acetaminophen (Ofirmev Injection -) 1,000 mg IVPB Q6H PRN PRN Reason: PAIN SCALE 5-10 Last Admin: 01/23/18 11:32 Dose: 1,000 mg Heparin Sodium (Porcine) (Heparin -) 1,000 unit IVPUSH PRN PRN PRN Reason: Heparin Heparin Sodium (Porcine) (Heparin -) 5,000 unit IVPUSH PRN PRN PRN Reason: Heparin Heparin Sodium (Porcine) 25, (000 unit/ Sodium Chloride) 500 mls @ 20 mls/hr IV TITR [facility]; Protocol Last Titration: 01/23/18 08:45 Dose: 1,000 unit/hr, 20 mls/hr Insulin Aspart (Novolog Vial Sliding Scale -) 1 vial SQ ACHS [facility]; Protocol Last Admin: 01/23/18 12:43 Dose: Not Given Latanoprost (Xalatan 0.005% Eye Drops -) 1 drop OD HS [facility] Last Admin: 01/22/18 22:33 Dose: 1 drop Levothyroxine Sodium (Synthroid Injection -) 37.5 mcg IVPUSH DAILY [facility] Last Admin: 01/23/18 12:49 Dose: 37.5 mcg Ondansetron HCl (Zofran Injection) 4 mg IVPUSH Q6H PRN PRN Reason: NAUSEA AND/OR VOMITING Last Admin: 01/17/18 09:12 Dose: 4 mg Polyethylene Glycol (Miralax (For Daily Use) -) 17 gm PO BID [facility] Last Admin: 01/23/18 11:40 Dose: Not Given Vancomycin HCl (Vancomycin (Pre-Docked)) 1,000 mg IVPB WeSa [facility] Last Admin: 01/23/18 11:34 Dose: 1,000 mg - Objective Vital Signs: Vital Signs Temperature 98.0 F 01/23/18 10:00 Pulse Rate 65 01/23/18 12:03 Respiratory Rate 18 01/23/18 12:03 Blood Pressure 115/69 01/23/18 12:03 O2 Sat by Pulse Oximetry (%) 99 01/22/18 22:00 Constitutional: Yes: Calm, Mild Distress Cardiovascular: Yes: Regular Rate and Rhythm Respiratory: Yes: Regular, CTA Bilaterally Gastrointestinal: Yes: Hypoactive Bowel Sounds, Other (ng tube in place) Musculoskeletal: Yes: WNL Extremities: Yes: Other Wound/Incision: Yes: Dressing Dry and Intact Neurological: Yes: Alert, Oriented Psychiatric: Yes: Alert, Oriented Labs: CBC, BMP 01/22/18 06:30 01/22/18 06:30 INR, PTT INR 1.91 (0.83-1.09) H 01/22/18 06:30 Assessment/Plan Problem List - Problems (1) Gangrene of foot Code(s): I96 - GANGRENE, NOT ELSEWHERE CLASSIFIED (2) Atrial fibrillation Code(s): I48.91 - UNSPECIFIED ATRIAL FIBRILLATION Qualifiers: Atrial fibrillation type: permanent Qualified Code(s): I48.2 - Chronic atrial fibrillation (3) Cardiomyopathy Code(s): I42.9 - CARDIOMYOPATHY, UNSPECIFIED Qualifiers: Cardiomyopathy type: unspecified Qualified Code(s): I42.9 - Cardiomyopathy , unspecified (4) Chronic anticoagulation Code(s): Z79.01 - FLIGHT FOLLOWER (CURRENT) USE OF 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 (5) Diabetes mellitus Code(s): E11.9 - TYPE 2 DIABETES MELLITUS WITHOUT COMPLICATIONS Qualifiers: Diabetes mellitus type: type 2 Diabetes mellitus rat exterminator insulin use: with rat exterminator use Diabetes mellitus complication detail: with peripheral angiopathy with gangrene (6) ESRD (end stage renal disease) Code(s): N18.6 - END STAGE RENAL DISEASE (7) Hypothyroid Code(s): E03.9 - HYPOTHYROIDISM, UNSPECIFIED Qualifiers: Hypothyroidism type: unspecified Qualified Code(s): E03.9 - Hypothyroidism , unspecified (8) ICD (implantable cardioverter-defibrillator) in place Code(s): Z95.810 - PRESENCE OF AUTOMATIC (IMPLANTABLE) CARDIAC DEFIBRILLATOR (9) Open wound of foot Code(s): S91.309A - UNSPECIFIED OPEN WOUND, UNSPECIFIED FOOT, INITIAL ENCOUNTER Qualifiers: Encounter type: subsequent encounter Laterality: right Qualified Code(s) : S91.301D - Unspecified open wound, right foot, subsequent encounter (10) Pericardial effusion Code(s): I31.3 - PERICARDIAL EFFUSION (NONINFLAMMATORY) (12) Status post peripheral artery angioplasty Code(s): Z98.62 - PERIPHERAL VASCULAR ANGIOPLASTY STATUS (13) Status post transmetatarsal amputation of right foot Code(s): Z89.431 - ACQUIRED ABSENCE OF RIGHT FOOT plan continue current mgmt rest as per the team patient awaiting surgery transfer to [facility] when bed
--- NOTE | 2018-01-23 13:43 | PN ---
Progress Note, Physician History of Present Illness: Pt seen and examined at bedside. He is awake and alert. He tolerated HD. He still has abdominal pain. - Current Medication List Current Medications: Active Medications Acetaminophen (Ofirmev Injection -) 1,000 mg IVPB Q6H PRN PRN Reason: PAIN SCALE 5-10 Last Admin: 01/23/18 11:32 Dose: 1,000 mg Heparin Sodium (Porcine) (Heparin -) 1,000 unit IVPUSH PRN PRN PRN Reason: Heparin Heparin Sodium (Porcine) (Heparin -) 5,000 unit IVPUSH PRN PRN PRN Reason: Heparin Heparin Sodium (Porcine) 25, (000 unit/ Sodium Chloride) 500 mls @ 20 mls/hr IV TITR [facility]; Protocol Last Titration: 01/23/18 08:45 Dose: 1,000 unit/hr, 20 mls/hr Insulin Aspart (Novolog Vial Sliding Scale -) 1 vial SQ ACHS [facility]; Protocol Last Admin: 01/23/18 12:43 Dose: Not Given Latanoprost (Xalatan 0.005% Eye Drops -) 1 drop OD HS [facility] Last Admin: 01/22/18 22:33 Dose: 1 drop Levothyroxine Sodium (Synthroid Injection -) 37.5 mcg IVPUSH DAILY [facility] Last Admin: 01/23/18 12:49 Dose: 37.5 mcg Ondansetron HCl (Zofran Injection) 4 mg IVPUSH Q6H PRN PRN Reason: NAUSEA AND/OR VOMITING Last Admin: 01/17/18 09:12 Dose: 4 mg Polyethylene Glycol (Miralax (For Daily Use) -) 17 gm PO BID [facility] Last Admin: 01/23/18 11:40 Dose: Not Given Vancomycin HCl (Vancomycin (Pre-Docked)) 1,000 mg IVPB TuWeSa [facility] Last Admin: 01/23/18 11:34 Dose: 1,000 mg - Objective Vital Signs: Vital Signs Temperature 98.0 F 01/23/18 10:00 Pulse Rate 65 01/23/18 12:03 Respiratory Rate 18 01/23/18 12:03 Blood Pressure 115/69 01/23/18 12:03 O2 Sat by Pulse Oximetry (%) 99 01/22/18 22:00 Constitutional: Yes: Calm Eyes: Yes: Conjunctiva Clear HENT: Yes: Atraumatic Neck: Yes: Supple Cardiovascular: Yes: S2 Respiratory: Yes: CTA Bilaterally Gastrointestinal: Yes: Hernia, Tenderness Genitourinary: Yes: WNL Edema: Yes Edema: LLE: 1+, RLE: 1+ Wound/Incision: Yes: Dressing Dry and Intact Neurological: Yes: Oriented Psychiatric: Yes: Oriented Labs: CBC, BMP 01/22/18 06:30 01/22/18 06:30 INR, PTT INR 1.91 (0.83-1.09) H 01/22/18 06:30 Problem List - Problems (1) Gangrene of foot Code(s): I96 - GANGRENE, NOT ELSEWHERE CLASSIFIED (2) Anemia Code(s): D64.9 - ANEMIA, UNSPECIFIED Qualifiers: Anemia type: due to chronic kidney disease (3) ESRD (end stage renal disease) Code(s): N18.6 - END STAGE RENAL DISEASE Assessment/Plan Current Medications Generic Name Dose Route Start Last Admin Trade Name Freq PRN Reason Stop Dose Admin Acetaminophen 1,000 mg 01/21/18 10:23 01/23/18 11:32 Ofirmev Injection - IVPB 1,000 mg Q6H PRN Administration PAIN SCALE 5-10 Heparin Sodium (Porcine) 1,000 unit 01/22/18 11:14 Heparin - IVPUSH PRN PRN Heparin Heparin Sodium (Porcine) 5,000 unit 01/22/18 11:14 Heparin - IVPUSH PRN PRN Heparin Heparin Sodium (Porcine) 25, 500 mls @ 20 mls/hr 01/22/18 11:15 01/23/18 08: 45 000 unit/ Sodium Chloride IV 1,000 unit/hr TITR [facility] 20 mls/hr Titration Protocol 1,000 UNIT/HR Insulin Aspart 1 vial 01/18/18 07:00 01/23/18 12:43 Novolog Vial Sliding Scale - SQ Not Given ACHS [facility] Protocol Latanoprost 1 drop 01/17/18 22:00 01/22/18 22:33 Xalatan 0.005% Eye Drops - OD 1 drop HS [facility] Administration Levothyroxine Sodium 37.5 mcg 01/18/18 10:00 01/23/18 12:49 Synthroid Injection - IVPUSH 37.5 mcg DAILY [facility] Administration Ondansetron HCl 4 mg 01/17/18 09:05 01/17/18 09:12 Zofran Injection IVPUSH 4 mg Q6H PRN Administration NAUSEA AND/OR VOMITING Polyethylene Glycol 17 gm 01/19/18 22:00 01/23/18 11:40 Miralax (For Daily Use) - PO Not Given BID [facility] Vancomycin HCl 1,000 mg 01/19/18 14:00 01/23/18 13:42 Vancomycin (Pre-Docked) IVPB Not Given TuWeSa [facility] Impression 1. ESRD 2. hx pericardial effusion 3. hx pneumopericardium 4. hypothyroidism 5. a-fib 6. hypotension 7. hx of colon cancer 8. CHF 9. DM 10. hx of PE 11. CAD 12. right stump infection 13. SBO Plan - pt tolerated HD - did not UF volume as he is npo with ng to suction - pending transfer to [facility] - surgery follow up - bka on hold for now - cont wound care - epogen for anemia Dr Conklin
--- NOTE | 2018-01-23 14:03 | PN ---
Progress Note (short form) - Note Progress Note: surgery pt seen and examined. feels weak. some gas pain. no flatus abd- distended, minimal tenerness, reducible hernia, ngt with bile Laboratory Tests 01/22/18 06:30 WBC 3.3 L Plan- Persistent sbo without evidence of compromise. awaiting transfer. suggest starting tpn as [place] may wish to wait another week or more to allow conservative mangement more time. no evidence of bowel compromise. Surgery would be high risk and best at a tertiary care center.
--- NOTE | 2018-01-23 17:46 | PN ---
GI Progress Note Subjective: GI NOte: Ate full liquid tray today which resulted in severe pain until the NG suctioned it out. Pain has resolved. - Objective Vital Signs: Vital Signs Temperature 98.0 F 01/23/18 10:00 Pulse Rate 65 01/23/18 12:03 Respiratory Rate 18 01/23/18 12:03 Blood Pressure 115/69 01/23/18 12:03 O2 Sat by Pulse Oximetry (%) 98 01/23/18 09:00 Laboratory Tests 01/22/18 01/22/18 06:30 06:30 WBC 3.3 L Hgb 10.5 L BUN 23 H Creatinine 4.9 H Constitutional: Anxious ...Auscultate: Yes: Hypoactive Bowel Sounds ...Palpate: Yes: Soft, Other (nontender tonight) Labs: CBC, BMP 01/22/18 06:30 01/22/18 06:30 INR, PTT INR 1.91 (0.83-1.09) H 01/22/18 06:30 Assessment/Plan Persistent SBO Awaiting transfer to tertiary care center Continue NG suctioning Problem List - Problems (1) Small bowel obstruction due to adhesions Code(s): K56.50 - INTESTNL ADHESIONS, UNSP TO PARTIAL VERSUS COMPLETE OBST (2) Ileus Code(s): K56.7 - ILEUS, UNSPECIFIED (3) Gangrene of foot Code(s): I96 - GANGRENE, NOT ELSEWHERE CLASSIFIED (4) Atrial fibrillation Code(s): I48.91 - UNSPECIFIED ATRIAL FIBRILLATION Qualifiers: Atrial fibrillation type: permanent Qualified Code(s): I48.2 - Chronic atrial fibrillation (5) Chronic kidney disease on chronic dialysis Code(s): N18.6 - END STAGE RENAL DISEASE; Z99.2 - DEPENDENCE ON RENAL DIALYSIS (6) Gangrene of toe of right foot Code(s): I96 - GANGRENE, NOT ELSEWHERE CLASSIFIED (7) ICD (implantable cardioverter-defibrillator) in place Code(s): Z95.810 - PRESENCE OF AUTOMATIC (IMPLANTABLE) CARDIAC DEFIBRILLATOR (8) History of malignant neoplasm of colon in adulthood Code(s): Z85.038 - PERSONAL HISTORY OF MALIGNANT NEOPLASM OF LARGE INTESTINE
[2018-01-23] MEDS ORDERED: INSULIN (NOVOLOG) ASPART 100 UNITS/ML 10ML VIAL ONE (21:14)
[2018-01-23] MEDS: LATANOPROST 0.005% OPHTH SOLN 2.5ML BOTTLE OD SCH (21:29)
[2018-01-23] MEDS: HEPARIN - 25,000 UNIT in SODIUM CHLORIDE 495 ML IV SCH (21:29)
--- NOTE | 2018-01-23 21:54 | PN ---
Progress Note (short form) - Note Progress Note: appreciate GI follow up unable to tolerated liquids - will continue NGT to LCS NGT with bilious drainage continues with abdominal pain/ but states much less FUA ordered q am -- persistent SBO Vital Signs Period Temp Pulse Resp BP Sys/Yoon Pulse Ox Last 24 Hr 97.4 F-98.0 F 64-70 18-20 98-115/54-69 98-[address] with bilious drainage neck heart S1/S2 ireg lungs clear / decreased at bases abd remains distended ( less tense ) + tender to palpation + guarding ext unchanged CBC, BMP 01/22/18 06:30 01/22/18 06:30 CBC, BMP 01/22/18 06:30 01/22/18 06:30 Active Medications Acetaminophen (Ofirmev Injection -) 1,000 mg IVPB Q6H PRN PRN Reason: PAIN SCALE 5-10 Last Admin: 01/23/18 11:32 Dose: 1,000 mg Heparin Sodium (Porcine) (Heparin -) 1,000 unit IVPUSH PRN PRN PRN Reason: Heparin Heparin Sodium (Porcine) (Heparin -) 5,000 unit IVPUSH PRN PRN PRN Reason: Heparin Heparin Sodium (Porcine) 25, (000 unit/ Sodium Chloride) 500 mls @ 20 mls/hr IV TITR [facility]; Protocol Last Admin: 01/23/18 21:29 Dose: 1,000 unit/hr, 20 mls/hr Insulin Aspart (Novolog Vial Sliding Scale -) 1 vial SQ ACHS [facility]; Protocol Last Admin: 01/23/18 21:26 Dose: Not Given Latanoprost (Xalatan 0.005% Eye Drops -) 1 drop OD HS [facility] Last Admin: 01/23/18 21:29 Dose: 1 drop Levothyroxine Sodium (Synthroid Injection -) 37.5 mcg IVPUSH DAILY [facility] Last Admin: 01/23/18 12:49 Dose: 37.5 mcg Ondansetron HCl (Zofran Injection) 4 mg IVPUSH Q6H PRN PRN Reason: NAUSEA AND/OR VOMITING Last Admin: 01/17/18 09:12 Dose: 4 mg Polyethylene Glycol (Miralax (For Daily Use) -) 17 gm PO BID [facility] Last Admin: 01/23/18 21:26 Dose: Not Given Vancomycin HCl (Vancomycin (Pre-Docked)) 1,000 mg IVPB [facility] Last Admin: 01/23/18 13:42 Dose: Not Given assment / plan # SBO NGT in place --with bilious drainage more comfortable but still remains in pain - unable to tolerate PO earlier today distal SBO persist FUA q am / Currentlly attempting to transfer to await INsurance authorization spoke to [facility]- transfer pending authorization #s/p right TMA 01/03/18 non healing will need BKA nmow on hold awaiting resolution of SBO correction of INR dependent on schedule for OR Cardio clearance done recently for TMA Known to have chronic pericardial effusion Known osteomyelitis will need margins results post op to determine Abx Tx Cardio / ID / Nephrology #s/pPrevious RLE gangrene of toes 2-5 s/p amputation #osteomyelitis - #hyponatremia ( Na 129) improved today Na 133 #PVD PLavix on hold last dose day prior to admission #CKD5 on chronic HD (T/T/S) #DM on insulin / sliding scale # a fib heparin drip Coumadin on hold #CAD #Cardiomyopathy s/p ICD #hypothyroid #HF -- echo done last admission had cardiac clearance 01/01/18 #anemia of chronic disease # hx of pericardial effusion -moderate / chronic >6 months hx of colon ca s/p resection hx of PE - on a/c hx of pneumopericardium Problem List - Problems (1) Gangrene of foot Code(s): I96 - GANGRENE, NOT ELSEWHERE CLASSIFIED (2) Open wound of foot Code(s): S91.309A - UNSPECIFIED OPEN WOUND, UNSPECIFIED FOOT, INITIAL ENCOUNTER Qualifiers: Encounter type: subsequent encounter Laterality: right Qualified Code(s) : S91.301D - Unspecified open wound, right foot, subsequent encounter (3) Anemia Code(s): D64.9 - ANEMIA, UNSPECIFIED Qualifiers: Anemia type: due to chronic kidney disease (4) Atrial fibrillation Code(s): I48.91 - UNSPECIFIED ATRIAL FIBRILLATION Qualifiers: Atrial fibrillation type: permanent Qualified Code(s): I48.2 - Chronic atrial fibrillation (5) Cardiomyopathy Code(s): I42.9 - CARDIOMYOPATHY, UNSPECIFIED Qualifiers: Cardiomyopathy type: unspecified Qualified Code(s): I42.9 - Cardiomyopathy , unspecified (6) Chronic kidney disease (CKD), stage V Code(s): N18.5 - CHRONIC KIDNEY DISEASE, STAGE 5 (7) Chronic kidney disease on chronic dialysis Code(s): N18.6 - END STAGE RENAL DISEASE; Z99.2 - DEPENDENCE ON RENAL DIALYSIS (8) Diabetes mellitus Code(s): E11.9 - TYPE 2 DIABETES MELLITUS WITHOUT COMPLICATIONS Qualifiers: Diabetes mellitus type: type 2 Diabetes mellitus correction insulin use: with 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 use Diabetes mellitus complication detail: with peripheral angiopathy with gangrene (9) HTN (hypertension) Code(s): I10 - ESSENTIAL (PRIMARY) HYPERTENSION Qualifiers: Hypertension type: essential hypertension Qualified Code(s): I10 - Essential (primary) hypertension (10) Hypotension Code(s): I95.9 - HYPOTENSION, UNSPECIFIED Qualifiers: Hypotension type: other hypotension type Qualified Code(s): I95.89 - Other hypotension (11) Hypothyroid Code(s): E03.9 - HYPOTHYROIDISM, UNSPECIFIED Qualifiers: Hypothyroidism type: unspecified Qualified Code(s): E03.9 - Hypothyroidism , unspecified (12) ICD (implantable cardioverter-defibrillator) in place Code(s): Z95.810 - PRESENCE OF AUTOMATIC (IMPLANTABLE) CARDIAC DEFIBRILLATOR (13) Osteomyelitis Code(s): M86.9 - OSTEOMYELITIS, UNSPECIFIED Qualifiers: Osteomyelitis type: other Osteomyelitis location: foot Laterality: right Qualified Code(s): M86.8X7 - Other osteomyelitis, ankle and foot (14) Pericardial effusion Code(s): I31.3 - PERICARDIAL EFFUSION (NONINFLAMMATORY) (15) Status post peripheral artery angioplasty Code(s): Z98.62 - PERIPHERAL VASCULAR ANGIOPLASTY STATUS (16) Status post transmetatarsal amputation of right foot Code(s): Z89.431 - ACQUIRED ABSENCE OF RIGHT FOOT
[2018-01-24] MEDS: INSULIN SLIDING SCALE (NOVOLOG) 1 VIAL SQ SCH ×4 (06:27→22:14)
[2018-01-24 06:38] LABS: BASO % 0.8 % (0-2.0); EOS % 1.6 % (0-4.5); HEMATOCRIT 35.7 % (35.4-49); HEMOGLOBIN 10.5 GM/dL (11.7-16.9); LYMPH % 13.1 % (8-40); MCH 29.2 pg (25.7-33.7); MCHC 29.4 g/dl (32.0-35.9); MEAN CELL VOLUME 99.5 fl (80-96); MEAN PLT VOLUME 8.8 fl (7.5-11.1); MONO % 31.6 % (3.8-10.2); NEUT % 52.9 % (42.8-82.8); PLATELET COUNT 189 K/MM3 (134-434); RBC 3.59 M/mm3 (4.00-5.60); RDW 23.7 % (11.9-15.9); WHITE BLOOD COUNT 3.9 K/mm3 (4.0-10.0)
[2018-01-24 06:59] LABS: ANION GAP 13 MMOL/L (8-16); BLOOD UREA NITROGEN 21 mg/dL (7-18); CALCIUM 9.2 mg/dL (8.5-10.1); CHLORIDE 99 mmol/L (98-107); CO2 29 mmol/L (21-32); CREATININE 4.6 mg/dL (0.55-1.3); GLUCOSE,RANDOM 105 mg/dL (74-106); POTASSIUM 3.8 mmol/L (3.5-5.1); SODIUM 141 mmol/L (136-145)
[2018-01-24] MEDS: ACETAMINOPHEN 1000 MG/100 ML VIAL (NON FORMULARY) IVPB PRN ×2 (07:33→18:46)
[2018-01-24 09:37] LABS: ANISOCYTOSIS 1+; MACROCYTOSIS 1+; OVALOCYTE 1+; PLATELET ESTIMATE NORMAL; TARGET CELLS 1+
--- NOTE | 2018-01-24 10:34 | PN ---
Progress Note, Physician History of Present Illness: Patient has continued abd pain and distension, marginal improvement with NGT, did not tolerate full liquid diet, denies BM or flatus. Glue Drier Operator: Dr. Ghassan Durant - Current Medication List Current Medications: Active Medications Acetaminophen (Ofirmev Injection -) 1,000 mg IVPB Q6H PRN PRN Reason: PAIN SCALE 5-10 Last Admin: 01/24/18 07:33 Dose: 1,000 mg Heparin Sodium (Porcine) (Heparin -) 1,000 unit IVPUSH PRN PRN PRN Reason: Heparin Heparin Sodium (Porcine) (Heparin -) 5,000 unit IVPUSH PRN PRN PRN Reason: Heparin Heparin Sodium (Porcine) 25, (000 unit/ Sodium Chloride) 500 mls @ 20 mls/hr IV TITR [facility]; Protocol Last Admin: 01/23/18 21:29 Dose: 1,000 unit/hr, 20 mls/hr Insulin Aspart (Novolog Vial Sliding Scale -) 1 vial SQ ACHS [facility]; Protocol Last Admin: 01/24/18 06:27 Dose: Not Given Latanoprost (Xalatan 0.005% Eye Drops -) 1 drop OD HS [facility] Last Admin: 01/23/18 21:29 Dose: 1 drop Levothyroxine Sodium (Synthroid Injection -) 37.5 mcg IVPUSH DAILY [facility] Last Admin: 01/23/18 12:49 Dose: 37.5 mcg Ondansetron HCl (Zofran Injection) 4 mg IVPUSH Q6H PRN PRN Reason: NAUSEA AND/OR VOMITING Last Admin: 01/17/18 09:12 Dose: 4 mg Polyethylene Glycol (Miralax (For Daily Use) -) 17 gm PO BID [facility] Last Admin: 01/23/18 21:26 Dose: Not Given Vancomycin HCl (Vancomycin (Pre-Docked)) 1,000 mg IVPB WeSa [facility] Last Admin: 01/23/18 13:42 Dose: Not Given - Objective Vital Signs: Vital Signs Temperature 98.6 F 01/24/18 10:00 Pulse Rate 98 H 01/24/18 10:00 Respiratory Rate 20 01/24/18 10:00 Blood Pressure 105/61 01/24/18 10:00 O2 Sat by Pulse Oximetry (%) 98 01/23/18 21:00 Constitutional: Yes: No Distress, Calm, Thin Neck: Yes: Supple Cardiovascular: Yes: Regular Rate and Rhythm Respiratory: Yes: Regular, Diminished, On Nasal O2 Gastrointestinal: Yes: Distention, Hypoactive Bowel Sounds Edema: Yes Edema: RLE: 1+ Labs: CBC, BMP 01/24/18 06:15 01/24/18 06:15 INR, PTT INR 1.91 (0.83-1.09) H 01/22/18 06:30 Problem List - Problems (1) Gangrene of foot Code(s): I96 - GANGRENE, NOT ELSEWHERE CLASSIFIED (2) Atrial fibrillation Code(s): I48.91 - UNSPECIFIED ATRIAL FIBRILLATION Qualifiers: Atrial fibrillation type: permanent Qualified Code(s): I48.2 - Chronic atrial fibrillation (3) Cardiomyopathy Code(s): I42.9 - CARDIOMYOPATHY, UNSPECIFIED Qualifiers: Cardiomyopathy type: unspecified Qualified Code(s): I42.9 - Cardiomyopathy , unspecified (4) Chronic anticoagulation Code(s): Z79.01 - DETENTION (CURRENT) USE OF 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 (5) Diabetes mellitus Code(s): E11.9 - TYPE 2 DIABETES MELLITUS WITHOUT COMPLICATIONS Qualifiers: Diabetes mellitus type: type 2 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 mellitus intermediate school teacher insulin use: with intermediate school teacher use Diabetes mellitus complication detail: with peripheral angiopathy with gangrene (6) ESRD (end stage renal disease) Code(s): N18.6 - END STAGE RENAL DISEASE (7) Hypothyroid Code(s): E03.9 - HYPOTHYROIDISM, UNSPECIFIED Qualifiers: Hypothyroidism type: unspecified Qualified Code(s): E03.9 - Hypothyroidism , unspecified (8) ICD (implantable cardioverter-defibrillator) in place Code(s): Z95.810 - PRESENCE OF AUTOMATIC (IMPLANTABLE) CARDIAC DEFIBRILLATOR (9) Open wound of foot Code(s): S91.309A - UNSPECIFIED OPEN WOUND, UNSPECIFIED FOOT, INITIAL ENCOUNTER Qualifiers: Encounter type: subsequent encounter Laterality: right Qualified Code(s) : S91.301D - Unspecified open wound, right foot, subsequent encounter (10) Pericardial effusion Code(s): I31.3 - PERICARDIAL EFFUSION (NONINFLAMMATORY) (11) Pre-operative cardiovascular examination Code(s): Z01.810 - ENCOUNTER FOR PREPROCEDURAL CARDIOVASCULAR EXAMINATION (12) Status post peripheral artery angioplasty Code(s): Z98.62 - PERIPHERAL VASCULAR ANGIOPLASTY STATUS (13) Status post transmetatarsal amputation of right foot Code(s): Z89.431 - ACQUIRED ABSENCE OF RIGHT FOOT (14) Small bowel obstruction due to adhesions Code(s): K56.50 - INTESTNL ADHESIONS, UNSP TO PARTIAL VERSUS COMPLETE OBST Assessment/Plan 09/12/2017 Echo: Moderate pericardial effusion, no tamponade, mildly dilated LV with severely decreased LV fxn, mild-mod dilated RV with severely decreased RV fxn, mod-severe MUUKL, mild MR, mild-mod TR, mild AR 10/05/2017 Echo: Moderately dilated with severely decreased LV fxn, RV dilated with severely decreased RV fxn, mod LAE, mild MR, mod TR, mild AR, mod pericardial effusion similar to previous 1. Pre-operative cardiovascular evaluation 2. Peripheral artery disease, gangrene right forefoot post right tibial revacularization and debridement of bone and soft tissue post Ch[place]art level amputation right foot, now planned for right BKA 3. Persistent SBO 4. Ischemic dilated cardiomyopathy with chronic class I-II NYHA classification LV failure, compensated/euvolemic, post prophylactic ICD implant 5. CAD post CO with history of demand ischemic injury angina pectoris, clinically stable 6. Persistent atrial fibrillation [id number] score of 3-4 off Coumadin pre- opnow with subtherapeutic INR 7. Pericardial effusion probably uremic pericarditis, moderate to large in severity/no tamponade 8. Diabetes mellitus 9. Hypothyroidism 10. History of PTE 11. ESRD 12. History of colon cancer PLAN: 1. Empiric antibiotic course as per ID 2. HD as per renal service 3. Hold Plavix and Coumadin pre-op, continue heparin gtt as INR<2.0 with close monitoring of CBC and PTT 4. NGT decompression, patient awaiting transfer to surgery service at [facility] pending bed availability, consider TPN 5. Resume Toprol XL 12.5 qd and Entresto 24/26 bid once able to tolerate oral 6. Given absence of symptoms of acute coronary syndrome, decompensated CHF or malignant arrhythmia, may proceed with surgical intervention and JOSSIE from CV- standpoint Glue Drier Operator: Dr. Ghassan Durant
[2018-01-24] MEDS: POLYETHYLENE GLYCOL 3350 119 GM BTL PO SCH ×2 (10:51→22:07)
--- NOTE | 2018-01-24 11:58 | PN ---
GI Progress Note Subjective: G NOte: FUA reveals persistent SBO. Has mild epigastric pain but no vomiting Discussed hydration with Dr. Conklin. Will start @ 40cc /hr. - Objective Vital Signs: Vital Signs Temperature 98.6 F 01/24/18 10:00 Pulse Rate 98 H 01/24/18 10:00 Respiratory Rate 20 01/24/18 10:00 Blood Pressure 105/61 01/24/18 10:00 O2 Sat by Pulse Oximetry (%) 98 01/23/18 21:00 Laboratory Tests 01/24/18 01/24/18 06:15 06:15 WBC 3.9 L Hgb 10.5 L Sodium 141 Potassium 3.8 BUN 21 H Creatinine 4.6 H Constitutional: Calm Gastrointestinal Inspection: Yes: Distention ...Auscultate: Yes: Hypoactive Bowel Sounds ...Palpate: Yes: Other (nontender) Labs: CBC, BMP 01/24/18 06:15 01/24/18 06:15 INR, PTT INR 1.91 (0.83-1.09) H 01/22/18 06:30 Assessment/Plan Persistent SBO Will start D5 1/2NS @ 40cc/hr Await transfer to [facility] Problem List - Problems (1) Small bowel obstruction due to adhesions Code(s): K56.50 - INTESTNL ADHESIONS, UNSP TO PARTIAL VERSUS COMPLETE OBST (2) Ileus Code(s): K56.7 - ILEUS, UNSPECIFIED (3) Gangrene of foot Code(s): I96 - GANGRENE, NOT ELSEWHERE CLASSIFIED (4) Atrial fibrillation Code(s): I48.91 - UNSPECIFIED ATRIAL FIBRILLATION Qualifiers: Atrial fibrillation type: permanent Qualified Code(s): I48.2 - Chronic atrial fibrillation (5) Chronic kidney disease on chronic dialysis Code(s): N18.6 - END STAGE RENAL DISEASE; Z99.2 - DEPENDENCE ON RENAL DIALYSIS (6) Gangrene of toe of right foot Code(s): I96 - GANGRENE, NOT ELSEWHERE CLASSIFIED (7) ICD (implantable cardioverter-defibrillator) in place Code(s): Z95.810 - PRESENCE OF AUTOMATIC (IMPLANTABLE) CARDIAC DEFIBRILLATOR (8) History of malignant neoplasm of colon in adulthood Code(s): Z85.038 - PERSONAL HISTORY OF MALIGNANT NEOPLASM OF LARGE INTESTINE
[2018-01-24] MEDS ORDERED: DEXTROSE 5%-0.45% SALINE 1,000 ML IV SCH (12:15)
[2018-01-24] MEDS ORDERED: SODIUM CHLORIDE 250 ML IV PRN (12:18)
--- NOTE | 2018-01-24 12:18 | PN ---
Progress Note, Physician History of Present Illness: Pt seen and examined at bedside. He is still waiting for a bed in [facility]. Pt complains of abdominal pain. - Current Medication List Current Medications: Active Medications Acetaminophen (Ofirmev Injection -) 1,000 mg IVPB Q6H PRN PRN Reason: PAIN SCALE 5-10 Last Admin: 01/24/18 07:33 Dose: 1,000 mg Heparin Sodium (Porcine) (Heparin -) 1,000 unit IVPUSH PRN PRN PRN Reason: Heparin Heparin Sodium (Porcine) (Heparin -) 5,000 unit IVPUSH PRN PRN PRN Reason: Heparin Heparin Sodium (Porcine) 25, (000 unit/ Sodium Chloride) 500 mls @ 20 mls/hr IV TITR [facility]; Protocol Last Titration: 01/24/18 10:59 Dose: 1,000 unit/hr, 20 mls/hr Dextrose/Sodium Chloride (D5-1/2ns -) 1,000 mls @ 42 mls/hr IV ASDIR [facility] Insulin Aspart (Novolog Vial Sliding Scale -) 1 vial SQ ACHS [facility]; Protocol Last Admin: 01/24/18 11:30 Dose: Not Given Latanoprost (Xalatan 0.005% Eye Drops -) 1 drop OD HS [facility] Last Admin: 01/23/18 21:29 Dose: 1 drop Levothyroxine Sodium (Synthroid Injection -) 37.5 mcg IVPUSH DAILY [facility] Last Admin: 01/23/18 12:49 Dose: 37.5 mcg Ondansetron HCl (Zofran Injection) 4 mg IVPUSH Q6H PRN PRN Reason: NAUSEA AND/OR VOMITING Last Admin: 01/17/18 09:12 Dose: 4 mg Polyethylene Glycol (Miralax (For Daily Use) -) 17 gm PO BID [facility] Last Admin: 01/24/18 10:51 Dose: Not Given Vancomycin HCl (Vancomycin (Pre-Docked)) 1,000 mg IVPB TuWeSa [facility] Last Admin: 01/23/18 13:42 Dose: Not Given - Objective Vital Signs: Vital Signs Temperature 98.6 F 01/24/18 10:00 Pulse Rate 98 H 01/24/18 10:00 Respiratory Rate 20 01/24/18 10:00 Blood Pressure 105/61 01/24/18 10:00 O2 Sat by Pulse Oximetry (%) 98 01/23/18 21:00 Constitutional: Yes: Calm Eyes: Yes: Conjunctiva Clear HENT: Yes: Atraumatic Neck: Yes: Supple Cardiovascular: Yes: S1, S2 Respiratory: Yes: CTA Bilaterally Gastrointestinal: Yes: Tenderness, Other (ng tube to suction) Genitourinary: Yes: WNL Musculoskeletal: Yes: WNL Edema: Yes Edema: LLE: 1+, RLE: 1+ Neurological: Yes: Oriented Psychiatric: Yes: Oriented Labs: CBC, BMP 01/24/18 06:15 01/24/18 06:15 INR, PTT INR 1.91 (0.83-1.09) H 01/22/18 06:30 Problem List - Problems (1) Gangrene of foot Code(s): I96 - GANGRENE, NOT ELSEWHERE CLASSIFIED (2) Anemia Code(s): D64.9 - ANEMIA, UNSPECIFIED Qualifiers: Anemia type: due to chronic kidney disease (3) ESRD (end stage renal disease) Code(s): N18.6 - END STAGE RENAL DISEASE Assessment/Plan Current Medications Generic Name Dose Route Start Last Admin Trade Name Freq PRN Reason Stop Dose Admin Acetaminophen 1,000 mg 01/21/18 10:23 01/24/18 07:33 Ofirmev Injection - IVPB 1,000 mg Q6H PRN Administration PAIN SCALE 5-10 Heparin Sodium (Porcine) 1,000 unit 01/22/18 11:14 Heparin - IVPUSH PRN PRN Heparin Heparin Sodium (Porcine) 5,000 unit 01/22/18 11:14 Heparin - IVPUSH PRN PRN Heparin Heparin Sodium (Porcine) 25, 500 mls @ 20 mls/hr 01/22/18 11:15 01/24/18 10: 59 000 unit/ Sodium Chloride IV 1,000 unit/hr TITR [facility] 20 mls/hr Titration Protocol 1,000 UNIT/HR Dextrose/Sodium Chloride 1,000 mls @ 42 mls/hr 01/24/18 12:15 D5-1/2ns - IV ASDIR [facility] Insulin Aspart 1 vial 01/18/18 07:00 01/24/18 11:30 Novolog Vial Sliding Scale - SQ Not Given ACHS [facility] Protocol Latanoprost 1 drop 01/17/18 22:00 01/23/18 21:29 Xalatan 0.005% Eye Drops - OD 1 drop HS [facility] Administration Levothyroxine Sodium 37.5 mcg 01/18/18 10:00 01/23/18 12:49 Synthroid Injection - IVPUSH 37.5 mcg DAILY [facility] Administration Ondansetron HCl 4 mg 01/17/18 09:05 01/17/18 09:12 Zofran Injection IVPUSH 4 mg Q6H PRN Administration NAUSEA AND/OR VOMITING Polyethylene Glycol 17 gm 01/19/18 22:00 01/24/18 10:51 Miralax (For Daily Use) - PO Not Given BID [facility] Vancomycin HCl 1,000 mg 01/19/18 14:00 01/23/18 13:42 Vancomycin (Pre-Docked) IVPB Not Given TuWeSa [facility] Impression 1. ESRD 2. hx pericardial effusion 3. hx pneumopericardium 4. hypothyroidism 5. a-fib 6. hypotension 7. hx of colon cancer 8. CHF 9. DM 10. hx of PE 11. CAD 12. right stump infection 13. SBO Plan - HD in am - d5 1/2ns at 40 cc, discussed with GI - surgery follow up - bka on hold for now - cont wound care - epogen for anemia Dr Conklin
[2018-01-24] MEDS ORDERED: PT OWN MED DRAWER 7, Y5N ONE ×2 (12:19→22:08)
[2018-01-24] MEDS: LEVOTHYROXINE SODIUM 100 MCG VIAL IVPUSH SCH (12:20)
--- NOTE | 2018-01-24 12:28 | PN ---
Progress Note, Physician History of Present Illness: continues to have abd pain ng tube still in place - Current Medication List Current Medications: Active Medications Acetaminophen (Ofirmev Injection -) 1,000 mg IVPB Q6H PRN PRN Reason: PAIN SCALE 5-10 Last Admin: 01/24/18 07:33 Dose: 1,000 mg Epoetin Hector (Procrit -) 3,000 unit IVPUSH ONCE ONE Stop: 01/25/18 12:19 Heparin Sodium (Porcine) (Heparin -) 1,000 unit IVPUSH PRN PRN PRN Reason: Heparin Heparin Sodium (Porcine) (Heparin -) 5,000 unit IVPUSH PRN PRN PRN Reason: Heparin Heparin Sodium (Porcine) 25, (000 unit/ Sodium Chloride) 500 mls @ 20 mls/hr IV TITR [facility]; Protocol Last Titration: 01/24/18 10:59 Dose: 1,000 unit/hr, 20 mls/hr Dextrose/Sodium Chloride (D5-1/2ns -) 1,000 mls @ 42 mls/hr IV ASDIR [facility] Sodium Chloride (Normal Saline -) 250 mls @ 3,000 mls/hr IV PRN PRN PRN Reason: Hypotension during Dialysis Stop: 01/25/18 12:18 Insulin Aspart (Novolog Vial Sliding Scale -) 1 vial SQ ACHS [facility]; Protocol Last Admin: 01/24/18 11:30 Dose: Not Given Latanoprost (Xalatan 0.005% Eye Drops -) 1 drop OD HS [facility] Last Admin: 01/23/18 21:29 Dose: 1 drop Levothyroxine Sodium (Synthroid Injection -) 37.5 mcg IVPUSH DAILY [facility] Last Admin: 01/24/18 12:20 Dose: 37.5 mcg Ondansetron HCl (Zofran Injection) 4 mg IVPUSH Q6H PRN PRN Reason: NAUSEA AND/OR VOMITING Last Admin: 01/17/18 09:12 Dose: 4 mg Polyethylene Glycol (Miralax (For Daily Use) -) 17 gm PO BID [facility] Last Admin: 01/24/18 10:51 Dose: Not Given Vancomycin HCl (Vancomycin (Pre-Docked)) 1,000 mg IVPB TuWeSa [facility] Last Admin: 01/23/18 13:42 Dose: Not Given - Objective Vital Signs: Vital Signs Temperature 98.6 F 01/24/18 10:00 Pulse Rate 98 H 01/24/18 10:00 Respiratory Rate 20 01/24/18 10:00 Blood Pressure 105/61 01/24/18 10:00 O2 Sat by Pulse Oximetry (%) 98 01/23/18 21:00 Constitutional: Yes: Calm, Mild Distress Cardiovascular: Yes: Regular Rate and Rhythm Respiratory: Yes: Regular, CTA Bilaterally Gastrointestinal: Yes: Other (absent bowel sounds ng tube in place) Musculoskeletal: Yes: WNL Extremities: Yes: Other Neurological: Yes: Alert, Oriented Psychiatric: Yes: Alert, Oriented Labs: CBC, BMP 01/24/18 06:15 01/24/18 06:15 INR, PTT INR 1.91 (0.83-1.09) H 01/22/18 06:30 Assessment/Plan Problem List - Problems (1) Gangrene of foot Code(s): I96 - GANGRENE, NOT ELSEWHERE CLASSIFIED (2) Atrial fibrillation Code(s): I48.91 - UNSPECIFIED ATRIAL FIBRILLATION Qualifiers: Atrial fibrillation type: permanent Qualified Code(s): I48.2 - Chronic atrial fibrillation (3) Cardiomyopathy Code(s): I42.9 - CARDIOMYOPATHY, UNSPECIFIED Qualifiers: Cardiomyopathy type: unspecified Qualified Code(s): I42.9 - Cardiomyopathy , unspecified (4) Chronic anticoagulation Code(s): Z79.01 - [facility] (CURRENT) USE OF 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 (5) Diabetes mellitus Code(s): E11.9 - TYPE 2 DIABETES MELLITUS WITHOUT COMPLICATIONS Qualifiers: Diabetes mellitus type: type 2 Diabetes mellitus rn long term care insulin use: with mcc use Diabetes mellitus complication detail: with peripheral angiopathy with gangrene (6) ESRD (end stage renal disease) Code(s): N18.6 - END STAGE RENAL DISEASE (7) Hypothyroid Code(s): E03.9 - HYPOTHYROIDISM, UNSPECIFIED Qualifiers: Hypothyroidism type: unspecified Qualified Code(s): E03.9 - Hypothyroidism , unspecified (8) ICD (implantable cardioverter-defibrillator) in place Code(s): Z95.810 - PRESENCE OF AUTOMATIC (IMPLANTABLE) CARDIAC DEFIBRILLATOR (9) Open wound of foot Code(s): S91.309A - UNSPECIFIED OPEN WOUND, UNSPECIFIED FOOT, INITIAL ENCOUNTER Qualifiers: Encounter type: subsequent encounter Laterality: right Qualified Code(s) : S91.301D - Unspecified open wound, right foot, subsequent encounter (10) Pericardial effusion Code(s): I31.3 - PERICARDIAL EFFUSION (NONINFLAMMATORY) (12) Status post peripheral artery angioplasty Code(s): Z98.62 - PERIPHERAL VASCULAR ANGIOPLASTY STATUS (13) Status post transmetatarsal amputation of right foot Code(s): Z89.431 - ACQUIRED ABSENCE OF RIGHT FOOT plan continue current mgmt rest as per the team patient awaiting surgery transfer to [facility] when bed follow [facility]
--- NOTE | 2018-01-24 15:42 | PN ---
Progress Note (short form) - Note Progress Note: patient sitting on bedside commode states had small BM continues with NGT to LCS physical exam unchanged Vital Signs Period Temp Pulse Resp BP Sys/Yoon Pulse Ox Last 24 Hr 97.6 F-98.6 F 62-98 20-20 102-106/61-66 97-[address] with bilious drainage neck heart S1/S2 ireg lungs clear / decreased at bases abd remains distended ( less tense ) + tender to palpation + guarding ext unchanged CBC, BMP 01/24/18 06:15 01/24/18 06:15 CBC, BMP 01/22/18 06:30 01/22/18 06:30 Active Medications Acetaminophen (Ofirmev Injection -) 1,000 mg IVPB Q6H PRN PRN Reason: PAIN SCALE 5-10 Last Admin: 01/24/18 07:33 Dose: 1,000 mg Epoetin Hector (Procrit -) 3,000 unit IVPUSH ONCE ONE Stop: 01/25/18 12:19 Heparin Sodium (Porcine) (Heparin -) 1,000 unit IVPUSH PRN PRN PRN Reason: Heparin Heparin Sodium (Porcine) (Heparin -) 5,000 unit IVPUSH PRN PRN PRN Reason: Heparin Heparin Sodium (Porcine) 25, (000 unit/ Sodium Chloride) 500 mls @ 20 mls/hr IV TITR [facility]; Protocol Last Titration: 01/24/18 10:59 Dose: 1,000 unit/hr, 20 mls/hr Dextrose/Sodium Chloride (D5-1/2ns -) 1,000 mls @ 42 mls/hr IV ASDIR [facility] Sodium Chloride (Normal Saline -) 250 mls @ 3,000 mls/hr IV PRN PRN PRN Reason: Hypotension during Dialysis Stop: 01/25/18 12:18 Insulin Aspart (Novolog Vial Sliding Scale -) 1 vial SQ ACHS [facility]; Protocol Last Admin: 01/24/18 11:30 Dose: Not Given Latanoprost (Xalatan 0.005% Eye Drops -) 1 drop OD HS [facility] Last Admin: 01/23/18 21:29 Dose: 1 drop Levothyroxine Sodium (Synthroid Injection -) 37.5 mcg IVPUSH DAILY [facility] Last Admin: 01/24/18 12:20 Dose: 37.5 mcg Ondansetron HCl (Zofran Injection) 4 mg IVPUSH Q6H PRN PRN Reason: NAUSEA AND/OR VOMITING Last Admin: 01/17/18 09:12 Dose: 4 mg Polyethylene Glycol (Miralax (For Daily Use) -) 17 gm PO BID [facility] Last Admin: 01/24/18 10:51 Dose: Not Given Vancomycin HCl (Vancomycin (Pre-Docked)) 1,000 mg IVPB TuThSa [facility] assment / plan # SBO NGT in place --with bilious drainage possibly opening -- small BM today -- less pain more comfortable but still remains in some pain distal SBO persist FUA q am / Currentlly attempting to transfer to await Insurance authorization Cardio clearance done recently for TMA #osteomyelitis - Known osteomyelitis will need margins results post op to determine Abx Tx currently on Vanco 1 gm c HD #hyponatremia resolved Na 141 #PVD s/pPrevious RLE gangrene of toes 2-5 s/p amputation s/p right TMA 01/03/18 --- non healing will need BKA now ---on hold awaiting resolution of SBO PLavix on hold last dose day prior to admission #CKD5 on chronic HD (T/T/S) #DM on insulin / sliding scale has not needed coverage # a fib heparin drip Coumadin on hold #CAD #Cardiomyopathy s/p ICD #hypothyroid #HF -- echo done last admission had cardiac clearance 01/01/18 #anemia of chronic disease # hx of pericardial effusion -moderate / chronic >6 months hx of colon ca s/p resection hx of PE - on a/c hx of pneumopericardium Problem List - Problems (1) Gangrene of foot Code(s): I96 - GANGRENE, NOT ELSEWHERE CLASSIFIED (2) Open wound of foot Code(s): S91.309A - UNSPECIFIED OPEN WOUND, UNSPECIFIED FOOT, INITIAL ENCOUNTER Qualifiers: Encounter type: subsequent encounter Laterality: right Qualified Code(s) : S91.301D - Unspecified open wound, right foot, subsequent encounter (3) Anemia Code(s): D64.9 - ANEMIA, UNSPECIFIED Qualifiers: Anemia type: due to chronic kidney disease (4) Atrial fibrillation Code(s): I48.91 - UNSPECIFIED ATRIAL FIBRILLATION Qualifiers: Atrial fibrillation type: permanent Qualified Code(s): I48.2 - Chronic atrial fibrillation (5) Cardiomyopathy Code(s): I42.9 - CARDIOMYOPATHY, UNSPECIFIED Qualifiers: Cardiomyopathy type: unspecified Qualified Code(s): I42.9 - Cardiomyopathy , unspecified (6) Chronic kidney disease (CKD), stage V Code(s): N18.5 - CHRONIC KIDNEY DISEASE, STAGE 5 (7) Chronic kidney disease on chronic dialysis Code(s): N18.6 - END STAGE RENAL DISEASE; Z99.2 - DEPENDENCE ON RENAL DIALYSIS (8) Diabetes mellitus Code(s): E11.9 - TYPE 2 DIABETES MELLITUS WITHOUT COMPLICATIONS Qualifiers: Diabetes mellitus type: type 2 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: with alf use Diabetes mellitus complication detail: with peripheral angiopathy with gangrene (9) HTN (hypertension) Code(s): I10 - ESSENTIAL (PRIMARY) HYPERTENSION Qualifiers: Hypertension type: essential hypertension Qualified Code(s): I10 - Essential (primary) hypertension (10) Hypotension Code(s): I95.9 - HYPOTENSION, UNSPECIFIED Qualifiers: Hypotension type: other hypotension type Qualified Code(s): I95.89 - Other hypotension (11) Hypothyroid Code(s): E03.9 - HYPOTHYROIDISM, UNSPECIFIED Qualifiers: Hypothyroidism type: unspecified Qualified Code(s): E03.9 - Hypothyroidism , unspecified (12) ICD (implantable cardioverter-defibrillator) in place Code(s): Z95.810 - PRESENCE OF AUTOMATIC (IMPLANTABLE) CARDIAC DEFIBRILLATOR (13) Osteomyelitis Code(s): M86.9 - OSTEOMYELITIS, UNSPECIFIED Qualifiers: Osteomyelitis type: other Osteomyelitis location: foot Laterality: right Qualified Code(s): M86.8X7 - Other osteomyelitis, ankle and foot (14) Pericardial effusion Code(s): I31.3 - PERICARDIAL EFFUSION (NONINFLAMMATORY) (15) Status post peripheral artery angioplasty Code(s): Z98.62 - PERIPHERAL VASCULAR ANGIOPLASTY STATUS (16) Status post transmetatarsal amputation of right foot Code(s): Z89.431 - ACQUIRED ABSENCE OF RIGHT FOOT
[2018-01-24] MEDS: LATANOPROST 0.005% OPHTH SOLN 2.5ML BOTTLE OD SCH (22:15)
[2018-01-25] MEDS: INSULIN SLIDING SCALE (NOVOLOG) 1 VIAL SQ SCH ×4 (06:56→21:28)
[2018-01-25] MEDS: ACETAMINOPHEN 1000 MG/100 ML VIAL (NON FORMULARY) IVPB PRN ×2 (07:00→16:04)
[2018-01-25] MEDS: LEVOTHYROXINE SODIUM 100 MCG VIAL IVPUSH SCH ×2 (07:01→12:00)
[2018-01-25] MEDS ORDERED: EPOETIN ALFA 3,000 UNIT/1 ML ML IVPUSH ONE (08:15)
[2018-01-25 09:30] LABS: HEMATOCRIT 34.5 % (35.4-49); HEMOGLOBIN 10.3 GM/dL (11.7-16.9); MCH 29.5 pg (25.7-33.7); MCHC 29.8 g/dl (32.0-35.9); MEAN CELL VOLUME 98.9 fl (80-96); PLATELET COUNT 182 K/MM3 (134-434); RBC 3.49 M/mm3 (4.00-5.60); RDW 22.7 % (11.9-15.9); WHITE BLOOD COUNT 3.7 K/mm3 (4.0-10.0)
[2018-01-25 10:09] LABS: ANION GAP 12 MMOL/L (8-16); BLOOD UREA NITROGEN 28 mg/dL (7-18); CALCIUM 8.9 mg/dL (8.5-10.1); CHLORIDE 100 mmol/L (98-107); CO2 29 mmol/L (21-32); CREATININE 5.6 mg/dL (0.55-1.3); GLUCOSE,RANDOM 93 mg/dL (74-106); POTASSIUM 3.7 mmol/L (3.5-5.1); SODIUM 141 mmol/L (136-145)
--- NOTE | 2018-01-25 10:53 | PN ---
Progress Note, Physician History of Present Illness: Patient has continued abd pain and distension, marginal improvement with NGT, did not tolerate full liquid diet, denies BM or flatus. Seen during HD. Linen Room Worker: Dr. Ghassan Durant - Current Medication List Current Medications: Active Medications Acetaminophen (Ofirmev Injection -) 1,000 mg IVPB Q6H PRN PRN Reason: PAIN SCALE 5-10 Last Admin: 01/25/18 07:00 Dose: 1,000 mg Heparin Sodium (Porcine) (Heparin -) 1,000 unit IVPUSH PRN PRN PRN Reason: Heparin Heparin Sodium (Porcine) (Heparin -) 5,000 unit IVPUSH PRN PRN PRN Reason: Heparin Heparin Sodium (Porcine) 25, (000 unit/ Sodium Chloride) 500 mls @ 20 mls/hr IV TITR [facility]; Protocol Last Titration: 01/24/18 10:59 Dose: 1,000 unit/hr, 20 mls/hr Dextrose/Sodium Chloride (D5-1/2ns -) 1,000 mls @ 42 mls/hr IV ASDIR [facility] Last Admin: 01/24/18 13:00 Dose: 42 mls/hr Sodium Chloride (Normal Saline -) 250 mls @ 3,000 mls/hr IV PRN PRN PRN Reason: Hypotension during Dialysis Stop: 01/25/18 12:18 Insulin Aspart (Novolog Vial Sliding Scale -) 1 vial SQ ACHS [facility]; Protocol Last Admin: 01/25/18 06:56 Dose: Not Given Latanoprost (Xalatan 0.005% Eye Drops -) 1 drop OD HS [facility] Last Admin: 01/24/18 22:15 Dose: 1 drop Levothyroxine Sodium (Synthroid Injection -) 37.5 mcg IVPUSH DAILY [facility] Last Admin: 01/25/18 07:01 Dose: 37.5 mcg Ondansetron HCl (Zofran Injection) 4 mg IVPUSH Q6H PRN PRN Reason: NAUSEA AND/OR VOMITING Last Admin: 01/17/18 09:12 Dose: 4 mg Polyethylene Glycol (Miralax (For Daily Use) -) 17 gm PO BID [facility] Last Admin: 01/24/18 22:07 Dose: Not Given Vancomycin HCl (Vancomycin (Pre-Docked)) 1,000 mg IVPB TuTa [facility] - Objective Vital Signs: Vital Signs Temperature 97.8 F 12/13/18 08:45 Pulse Rate 65 01/25/18 10:49 Respiratory Rate 18 01/25/18 10:49 Blood Pressure 98/58 L 01/25/18 10:49 O2 Sat by Pulse Oximetry (%) 97 01/24/18 21:00 Constitutional: Yes: No Distress, Calm Neck: Yes: Supple Cardiovascular: Yes: Regular Rate and Rhythm Respiratory: Yes: Regular, Diminished Gastrointestinal: Yes: Soft, Distention, Hypoactive Bowel Sounds Edema: Yes Edema: RLE: 1+ Labs: CBC, BMP 01/25/18 08:50 01/25/18 08:50 INR, PTT INR 1.91 (0.83-1.09) H 01/22/18 06:30 Problem List - Problems (1) Gangrene of foot Code(s): I96 - GANGRENE, NOT ELSEWHERE CLASSIFIED (2) Atrial fibrillation Code(s): I48.91 - UNSPECIFIED ATRIAL FIBRILLATION Qualifiers: Atrial fibrillation type: permanent Qualified Code(s): I48.2 - Chronic atrial fibrillation (3) Cardiomyopathy Code(s): I42.9 - CARDIOMYOPATHY, UNSPECIFIED Qualifiers: Cardiomyopathy type: unspecified Qualified Code(s): I42.9 - Cardiomyopathy , unspecified (4) Chronic anticoagulation Code(s): Z79.01 - BUSINESS OBJECTS ARCHITECT (CURRENT) USE OF 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 (5) Diabetes mellitus Code(s): E11.9 - TYPE 2 DIABETES MELLITUS WITHOUT COMPLICATIONS Qualifiers: Diabetes mellitus type: type 2 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: with exterminator helper use Diabetes mellitus complication detail: with peripheral angiopathy with gangrene (6) ESRD (end stage renal disease) Code(s): N18.6 - END STAGE RENAL DISEASE (7) Hypothyroid Code(s): E03.9 - HYPOTHYROIDISM, UNSPECIFIED Qualifiers: Hypothyroidism type: unspecified Qualified Code(s): E03.9 - Hypothyroidism , unspecified (8) ICD (implantable cardioverter-defibrillator) in place Code(s): Z95.810 - PRESENCE OF AUTOMATIC (IMPLANTABLE) CARDIAC DEFIBRILLATOR (9) Open wound of foot Code(s): S91.309A - UNSPECIFIED OPEN WOUND, UNSPECIFIED FOOT, INITIAL ENCOUNTER Qualifiers: Encounter type: subsequent encounter Laterality: right Qualified Code(s) : S91.301D - Unspecified open wound, right foot, subsequent encounter (10) Pericardial effusion Code(s): I31.3 - PERICARDIAL EFFUSION (NONINFLAMMATORY) (11) Pre-operative cardiovascular examination Code(s): Z01.810 - ENCOUNTER FOR PREPROCEDURAL CARDIOVASCULAR EXAMINATION (12) Status post peripheral artery angioplasty Code(s): Z98.62 - PERIPHERAL VASCULAR ANGIOPLASTY STATUS (13) Status post transmetatarsal amputation of right foot Code(s): Z89.431 - ACQUIRED ABSENCE OF RIGHT FOOT (14) Small bowel obstruction due to adhesions Code(s): K56.50 - INTESTNL ADHESIONS, UNSP TO PARTIAL VERSUS COMPLETE OBST Assessment/Plan 09/12/2017 Echo: Moderate pericardial effusion, no tamponade, mildly dilated LV with severely decreased LV fxn, mild-mod dilated RV with severely decreased RV fxn, mod-severe MUKUL, mild MR, mild-mod TR, mild AR 10/05/2017 Echo: Moderately dilated with severely decreased LV fxn, RV dilated with severely decreased RV fxn, mod LAE, mild MR, mod TR, mild AR, mod pericardial effusion similar to previous 1. Pre-operative cardiovascular evaluation 2. Peripheral artery disease, gangrene right forefoot post right tibial revacularization and debridement of bone and soft tissue post Chopart level amputation right foot, now planned for right BKA 3. Persistent SBO 4. Ischemic dilated cardiomyopathy with chronic class I-II NYHA classification LV failure, compensated/euvolemic, post prophylactic ICD implant 5. CAD post IN with history of demand ischemic injury angina pectoris, clinically stable 6. Persistent atrial fibrillation [id number] score of 3-4 off Coumadin pre- opnow with subtherapeutic INR 7. Pericardial effusion probably uremic pericarditis, moderate to large in severity/no tamponade 8. Diabetes mellitus 9. Hypothyroidism 10. History of PTE 11. ESRD 12. History of colon cancer PLAN: 1. Empiric antibiotic course as per ID 2. HD as per renal service, judicious hydration 3. Hold Plavix and Coumadin pre-op, continue heparin gtt as INR<2.0 with close monitoring of CBC and PTT 4. NGT decompression, patient awaiting transfer to surgery service at [facility] pending bed availability, consider TPN 5. Resume Toprol XL 12.5 qd and Entresto 24/26 bid once able to tolerate oral 6. Given absence of symptoms of acute coronary syndrome, decompensated CHF or malignant arrhythmia, may proceed with surgical intervention and JOSSIE from CV- standpoint Linen Room Worker: Dr. Ghassan Durant
[2018-01-25] MEDS: VANCOMYCIN 1 GRAM (PRE-DOCKED) 1,000 MG/250 ML BAG IVPB SCH ×2 (11:26→12:18)
[2018-01-25] MEDS: POLYETHYLENE GLYCOL 3350 119 GM BTL PO SCH ×2 (12:00→21:28)
[2018-01-25 12:40] VITALS: BMI 26.6
--- NOTE | 2018-01-25 13:37 | PN ---
Progress Note, Physician History of Present Illness: stable awaiting bed at [facility] still with ng tube pain still present - Current Medication List Current Medications: Active Medications Acetaminophen (Ofirmev Injection -) 1,000 mg IVPB Q6H PRN PRN Reason: PAIN SCALE 5-10 Last Admin: 01/25/18 07:00 Dose: 1,000 mg Heparin Sodium (Porcine) (Heparin -) 1,000 unit IVPUSH PRN PRN PRN Reason: Heparin Heparin Sodium (Porcine) (Heparin -) 5,000 unit IVPUSH PRN PRN PRN Reason: Heparin Heparin Sodium (Porcine) 25, (000 unit/ Sodium Chloride) 500 mls @ 20 mls/hr IV TITR [facility]; Protocol Last Titration: 01/24/18 10:59 Dose: 1,000 unit/hr, 20 mls/hr Dextrose/Sodium Chloride (D5-1/2ns -) 1,000 mls @ 42 mls/hr IV ASDIR [facility] Last Admin: 01/24/18 13:00 Dose: 42 mls/hr Insulin Aspart (Novolog Vial Sliding Scale -) 1 vial SQ ACHS [facility]; Protocol Last Admin: 01/25/18 13:08 Dose: Not Given Latanoprost (Xalatan 0.005% Eye Drops -) 1 drop OD HS [facility] Last Admin: 01/24/18 22:15 Dose: 1 drop Levothyroxine Sodium (Synthroid Injection -) 37.5 mcg IVPUSH DAILY [facility] Last Admin: 01/25/18 12:00 Dose: Not Given Ondansetron HCl (Zofran Injection) 4 mg IVPUSH Q6H PRN PRN Reason: NAUSEA AND/OR VOMITING Last Admin: 01/17/18 09:12 Dose: 4 mg Polyethylene Glycol (Miralax (For Daily Use) -) 17 gm PO BID [facility] Last Admin: 01/25/18 12:00 Dose: Not Given Vancomycin HCl (Vancomycin (Pre-Docked)) 1,000 mg IVPB TuThSa [facility] Last Admin: 01/25/18 12:18 Dose: Not Given - Objective Vital Signs: Vital Signs Temperature 97.8 F 01/25/18 13:33 Pulse Rate 66 01/25/18 13:33 Respiratory Rate 17 01/25/18 13:33 Blood Pressure 102/60 01/25/18 13:33 O2 Sat by Pulse Oximetry (%) 97 01/24/18 21:00 Constitutional: Yes: Calm, Mild Distress Neck: Yes: Supple Cardiovascular: Yes: Regular Rate and Rhythm Respiratory: Yes: Regular, CTA Bilaterally Gastrointestinal: Yes: Other (absent bowel sounds,ng tube in place draining a lot ng tube) Extremities: Yes: Other Wound/Incision: Yes: Dressing Dry and Intact Neurological: Yes: Alert, Oriented Psychiatric: Yes: Alert, Oriented Labs: CBC, BMP 01/25/18 08:50 01/25/18 08:50 INR, PTT INR 1.91 (0.83-1.09) H 01/22/18 06:30 Assessment/Plan Problem List - Problems (1) Gangrene of foot Code(s): I96 - GANGRENE, NOT ELSEWHERE CLASSIFIED (2) Atrial fibrillation Code(s): I48.91 - UNSPECIFIED ATRIAL FIBRILLATION Qualifiers: Atrial fibrillation type: permanent Qualified Code(s): I48.2 - Chronic atrial fibrillation (3) Cardiomyopathy Code(s): I42.9 - CARDIOMYOPATHY, UNSPECIFIED Qualifiers: Cardiomyopathy type: unspecified Qualified Code(s): I42.9 - Cardiomyopathy , unspecified (4) Chronic anticoagulation Code(s): Z79.01 - ASSISTED (CURRENT) USE OF 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 (5) Diabetes mellitus Code(s): E11.9 - TYPE 2 DIABETES MELLITUS WITHOUT COMPLICATIONS Qualifiers: Diabetes mellitus type: type 2 Diabetes mellitus rat exterminator insulin use: with retirement use Diabetes mellitus complication detail: with peripheral angiopathy with gangrene (6) ESRD (end stage renal disease) Code(s): N18.6 - END STAGE RENAL DISEASE (7) Hypothyroid Code(s): E03.9 - HYPOTHYROIDISM, UNSPECIFIED Qualifiers: Hypothyroidism type: unspecified Qualified Code(s): E03.9 - Hypothyroidism , unspecified (8) ICD (implantable cardioverter-defibrillator) in place Code(s): Z95.810 - PRESENCE OF AUTOMATIC (IMPLANTABLE) CARDIAC DEFIBRILLATOR (9) Open wound of foot Code(s): S91.309A - UNSPECIFIED OPEN WOUND, UNSPECIFIED FOOT, INITIAL ENCOUNTER Qualifiers: Encounter type: subsequent encounter Laterality: right Qualified Code(s) : S91.301D - Unspecified open wound, right foot, subsequent encounter (10) Pericardial effusion Code(s): I31.3 - PERICARDIAL EFFUSION (NONINFLAMMATORY) (12) Status post peripheral artery angioplasty Code(s): Z98.62 - PERIPHERAL VASCULAR ANGIOPLASTY STATUS (13) Status post transmetatarsal amputation of right foot Code(s): Z89.431 - ACQUIRED ABSENCE OF RIGHT FOOT plan continue current mgmt rest as per the team patient awaiting surgery transfer to [facility] when bed vanco during dialysis monitor level awaiting transfer
--- NOTE | 2018-01-25 14:07 | PN ---
Progress Note, Physician History of Present Illness: Pt seen and examined at bedside. He is awake and alert. He is tolerating HD. He still has abdominal pain. - Current Medication List Current Medications: Active Medications Acetaminophen (Ofirmev Injection -) 1,000 mg IVPB Q6H PRN PRN Reason: PAIN SCALE 5-10 Last Admin: 01/25/18 07:00 Dose: 1,000 mg Heparin Sodium (Porcine) (Heparin -) 1,000 unit IVPUSH PRN PRN PRN Reason: Heparin Heparin Sodium (Porcine) (Heparin -) 5,000 unit IVPUSH PRN PRN PRN Reason: Heparin Heparin Sodium (Porcine) 25, (000 unit/ Sodium Chloride) 500 mls @ 20 mls/hr IV TITR [facility]; Protocol Last Titration: 01/24/18 10:59 Dose: 1,000 unit/hr, 20 mls/hr Dextrose/Sodium Chloride (D5-1/2ns -) 1,000 mls @ 42 mls/hr IV ASDIR [facility] Last Admin: 01/24/18 13:00 Dose: 42 mls/hr Insulin Aspart (Novolog Vial Sliding Scale -) 1 vial SQ ACHS [facility]; Protocol Last Admin: 01/25/18 13:08 Dose: Not Given Latanoprost (Xalatan 0.005% Eye Drops -) 1 drop OD HS [facility] Last Admin: 01/24/18 22:15 Dose: 1 drop Levothyroxine Sodium (Synthroid Injection -) 37.5 mcg IVPUSH DAILY [facility] Last Admin: 01/25/18 12:00 Dose: Not Given Ondansetron HCl (Zofran Injection) 4 mg IVPUSH Q6H PRN PRN Reason: NAUSEA AND/OR VOMITING Last Admin: 01/17/18 09:12 Dose: 4 mg Polyethylene Glycol (Miralax (For Daily Use) -) 17 gm PO BID [facility] Last Admin: 01/25/18 12:00 Dose: Not Given Vancomycin HCl (Vancomycin (Pre-Docked)) 1,000 mg IVPB TuThSa [facility] Last Admin: 01/25/18 12:18 Dose: Not Given - Objective Vital Signs: Vital Signs Temperature 97.8 F 01/25/18 13:33 Pulse Rate 66 01/25/18 13:33 Respiratory Rate 17 01/25/18 13:33 Blood Pressure 102/60 01/25/18 13:33 O2 Sat by Pulse Oximetry (%) 97 01/24/18 21:00 Constitutional: Yes: Calm Eyes: Yes: Conjunctiva Clear HENT: Yes: Atraumatic Neck: Yes: Supple Cardiovascular: Yes: S1, S2 Respiratory: Yes: CTA Bilaterally Gastrointestinal: Yes: Tenderness Edema: Yes Edema: LLE: 1+, RLE: 1+ Wound/Incision: Yes: Dressing Dry and Intact Neurological: Yes: Oriented Psychiatric: Yes: Oriented Labs: CBC, BMP 01/25/18 08:50 01/25/18 08:50 INR, PTT INR 1.91 (0.83-1.09) H 01/22/18 06:30 Problem List - Problems (1) Gangrene of foot Code(s): I96 - GANGRENE, NOT ELSEWHERE CLASSIFIED (2) Anemia Code(s): D64.9 - ANEMIA, UNSPECIFIED Qualifiers: Anemia type: due to chronic kidney disease (3) ESRD (end stage renal disease) Code(s): N18.6 - END STAGE RENAL DISEASE Assessment/Plan Current Medications Generic Name Dose Route Start Last Admin Trade Name Freq PRN Reason Stop Dose Admin Acetaminophen 1,000 mg 01/21/18 10:23 01/25/18 07:00 Ofirmev Injection - IVPB 1,000 mg Q6H PRN Administration PAIN SCALE 5-10 Heparin Sodium (Porcine) 1,000 unit 01/22/18 11:14 Heparin - IVPUSH PRN PRN Heparin Heparin Sodium (Porcine) 5,000 unit 01/22/18 11:14 Heparin - IVPUSH PRN PRN Heparin Heparin Sodium (Porcine) 25, 500 mls @ 20 mls/hr 01/22/18 11:15 01/24/18 10: 59 000 unit/ Sodium Chloride IV 1,000 unit/hr TITR [facility] 20 mls/hr Titration Protocol 1,000 UNIT/HR Dextrose/Sodium Chloride 1,000 mls @ 42 mls/hr 01/24/18 12:15 01/24/18 13:00 D5-1/2ns - IV 42 mls/hr ASDIR [facility] Administration Insulin Aspart 1 vial 01/18/18 07:00 01/25/18 13:08 Novolog Vial Sliding Scale - SQ Not Given ACHS [facility] Protocol Latanoprost 1 drop 01/17/18 22:00 01/24/18 22:15 Xalatan 0.005% Eye Drops - OD 1 drop HS [facility] Administration Levothyroxine Sodium 37.5 mcg 01/18/18 10:00 01/25/18 12:00 Synthroid Injection - IVPUSH Not Given DAILY [facility] Ondansetron HCl 4 mg 01/17/18 09:05 01/17/18 09:12 Zofran Injection IVPUSH 4 mg Q6H PRN Administration NAUSEA AND/OR VOMITING Polyethylene Glycol 17 gm 01/19/18 22:00 01/25/18 12:00 Miralax (For Daily Use) - PO Not Given BID [facility] Vancomycin HCl 1,000 mg 01/24/18 12:29 01/25/18 12:18 Vancomycin (Pre-Docked) IVPB Not Given TuTa [facility] Impression 1. ESRD 2. hx pericardial effusion 3. hx pneumopericardium 4. hypothyroidism 5. a-fib 6. hypotension 7. hx of colon cancer 8. CHF 9. DM 10. hx of PE 11. CAD 12. right stump infection 13. SBO Plan - HD today - will change fluids to clinimix - pt remain NPO with ng suction - pt waiting for bed in [facility] - surgery follow up - bka on hold for now - cont wound care - epogen for anemia Dr Conklin
[2018-01-25] MEDS: ONDANSETRON 4 MG/2 ML VIAL IVPUSH PRN (14:14)
--- NOTE | 2018-01-25 14:36 | PN ---
Progress Note (short form) - Note Progress Note: surgery pt seen and examined. denies pain now. abd- distended. ngt 2100. no flatus. hernia reducible Plan- sbo. still no improvement. awaiting transfer to [place]. no evidence of bowel compromise. clinimix (4.25% aminoacids) being started. suggest lipids as well to get to full metabolic needs.
[2018-01-25] MEDS: AMINO ACIDS 4.25%/D5W 1,000 ML IV SCH (16:07)
[2018-01-25] MEDS: HEPARIN - 25,000 UNIT in SODIUM CHLORIDE 495 ML IV SCH (18:29)
[2018-01-25] MEDS ORDERED: INSULIN (NOVOLOG) ASPART 100 UNITS/ML 10ML VIAL ONE (21:15)
[2018-01-25] MEDS: LATANOPROST 0.005% OPHTH SOLN 2.5ML BOTTLE OD SCH (21:29)
[2018-01-26] MEDS: ACETAMINOPHEN 1000 MG/100 ML VIAL (NON FORMULARY) IVPB PRN ×3 (01:04→18:04)
[2018-01-26] MEDS: INSULIN SLIDING SCALE (NOVOLOG) 1 VIAL SQ SCH ×4 (07:19→23:28)
[2018-01-26 07:29] LABS: HEMATOCRIT 35.5 % (35.4-49); HEMOGLOBIN 11.3 GM/dL (11.7-16.9); MCH 31.5 pg (25.7-33.7); MCHC 31.9 g/dl (32.0-35.9); MEAN CELL VOLUME 98.6 fl (80-96); PLATELET COUNT 168 K/MM3 (134-434); RDW 22.7 % (11.9-15.9); WHITE BLOOD COUNT 3.4 K/mm3 (4.0-10.0)
[2018-01-26] MEDS: AMINO ACIDS 4.25%/D5W 1,000 ML IV SCH ×2 (07:49→15:44)
[2018-01-26] MEDS: LEVOTHYROXINE SODIUM 100 MCG VIAL IVPUSH SCH (09:14)
--- NOTE | 2018-01-26 09:36 | PN ---
Progress Note, Physician History of Present Illness: Patient has continued abd pain and distension, marginal improvement with NGT, did not tolerate full liquid diet, denies BM or flatus. Started on Clinimix. Impregnating Tank Operator: Dr. Ghassan Durant - Current Medication List Current Medications: Active Medications Acetaminophen (Ofirmev Injection -) 1,000 mg IVPB Q6H PRN PRN Reason: PAIN SCALE 5-10 Last Admin: 01/26/18 09:14 Dose: 1,000 mg Heparin Sodium (Porcine) (Heparin -) 1,000 unit IVPUSH PRN PRN PRN Reason: Heparin Heparin Sodium (Porcine) (Heparin -) 5,000 unit IVPUSH PRN PRN PRN Reason: Heparin Heparin Sodium (Porcine) 25, (000 unit/ Sodium Chloride) 500 mls @ 20 mls/hr IV TITR [facility]; Protocol Last Admin: 01/25/18 18:29 Dose: 1,000 unit/hr, 20 mls/hr Amino Acids (Clinimix -) 1,000 mls @ 42 mls/hr IV Q12H [facility] Last Admin: 01/26/18 07:49 Dose: Not Given Insulin Aspart (Novolog Vial Sliding Scale -) 1 vial SQ ACHS [facility]; Protocol Last Admin: 01/26/18 07:19 Dose: Not Given Latanoprost (Xalatan 0.005% Eye Drops -) 1 drop OD HS [facility] Last Admin: 01/25/18 21:29 Dose: 1 drop Levothyroxine Sodium (Synthroid Injection -) 37.5 mcg IVPUSH DAILY [facility] Last Admin: 01/26/18 09:14 Dose: 37.5 mcg Ondansetron HCl (Zofran Injection) 4 mg IVPUSH Q6H PRN PRN Reason: NAUSEA AND/OR VOMITING Last Admin: 01/25/18 14:14 Dose: 4 mg Polyethylene Glycol (Miralax (For Daily Use) -) 17 gm PO BID [facility] Last Admin: 01/25/18 21:28 Dose: Not Given Vancomycin HCl (Vancomycin (Pre-Docked)) 1,000 mg IVPB TuThSa [facility] Last Admin: 01/25/18 12:18 Dose: Not Given - Objective Vital Signs: Vital Signs Temperature 97.6 F 01/26/18 08:47 Pulse Rate 66 01/26/18 08:47 Respiratory Rate 20 01/26/18 08:47 Blood Pressure 113/60 01/26/18 08:47 O2 Sat by Pulse Oximetry (%) 100 01/25/18 21:00 Constitutional: Yes: No Distress, Calm, Thin Neck: Yes: Supple Cardiovascular: Yes: Regular Rate and Rhythm Respiratory: Yes: Regular, Diminished, On Nasal O2 Gastrointestinal: Yes: Distention, Hypoactive Bowel Sounds, Tenderness Edema: Yes Edema: RLE: 1+ Labs: CBC, BMP 01/26/18 06:00 01/25/18 08:50 INR, PTT INR 1.91 (0.83-1.09) H 01/22/18 06:30 - ....Imaging Cat Scan: Report Reviewed (High grade distal SBO) Problem List - Problems (1) Gangrene of foot Code(s): I96 - GANGRENE, NOT ELSEWHERE CLASSIFIED (2) Atrial fibrillation Code(s): I48.91 - UNSPECIFIED ATRIAL FIBRILLATION Qualifiers: Atrial fibrillation type: permanent Qualified Code(s): I48.2 - Chronic atrial fibrillation (3) Cardiomyopathy Code(s): I42.9 - CARDIOMYOPATHY, UNSPECIFIED Qualifiers: Cardiomyopathy type: unspecified Qualified Code(s): I42.9 - Cardiomyopathy , unspecified (4) Chronic anticoagulation Code(s): Z79.01 - LABORATORY INSPECTOR (CURRENT) USE OF 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 (5) Diabetes mellitus Code(s): E11.9 - TYPE 2 DIABETES MELLITUS WITHOUT COMPLICATIONS Qualifiers: Diabetes mellitus type: type 2 Diabetes mellitus fpc insulin use: with fpc use Diabetes mellitus complication detail: with peripheral angiopathy with gangrene (6) ESRD (end stage renal disease) Code(s): N18.6 - END STAGE RENAL DISEASE (7) Hypothyroid Code(s): E03.9 - HYPOTHYROIDISM, UNSPECIFIED Qualifiers: Hypothyroidism type: unspecified Qualified Code(s): E03.9 - Hypothyroidism , unspecified (8) ICD (implantable cardioverter-defibrillator) in place Code(s): Z95.810 - PRESENCE OF AUTOMATIC (IMPLANTABLE) CARDIAC DEFIBRILLATOR (9) Open wound of foot Code(s): S91.309A - UNSPECIFIED OPEN WOUND, UNSPECIFIED FOOT, INITIAL ENCOUNTER Qualifiers: Encounter type: subsequent encounter Laterality: right Qualified Code(s) : S91.301D - Unspecified open wound, right foot, subsequent encounter (10) Pericardial effusion Code(s): I31.3 - PERICARDIAL EFFUSION (NONINFLAMMATORY) (11) Pre-operative cardiovascular examination Code(s): Z01.810 - ENCOUNTER FOR PREPROCEDURAL CARDIOVASCULAR EXAMINATION (12) Status post peripheral artery angioplasty Code(s): Z98.62 - PERIPHERAL VASCULAR ANGIOPLASTY STATUS (13) Status post transmetatarsal amputation of right foot Code(s): Z89.431 - ACQUIRED ABSENCE OF RIGHT FOOT (14) Small bowel obstruction due to adhesions Code(s): K56.50 - INTESTNL ADHESIONS, UNSP TO PARTIAL VERSUS COMPLETE OBST Assessment/Plan 09/12/2017 Echo: Moderate pericardial effusion, no tamponade, mildly dilated LV with severely decreased LV fxn, mild-mod dilated RV with severely decreased RV fxn, mod-severe MUKUL, mild MR, mild-mod TR, mild AR 10/05/2017 Echo: Moderately dilated with severely decreased LV fxn, RV dilated with severely decreased RV fxn, mod LAE, mild MR, mod TR, mild AR, mod pericardial effusion similar to previous 1. Pre-operative cardiovascular evaluation 2. Peripheral artery disease, gangrene right forefoot post right tibial revacularization and debridement of bone and soft tissue post Chopart level amputation right foot, now planned for right BKA 3. Persistent SBO 4. Ischemic dilated cardiomyopathy with chronic class I-II NYHA classification LV failure, compensated/euvolemic, post prophylactic ICD implant 5. CAD post [place] with history of demand ischemic injury angina pectoris, clinically stable 6. Persistent atrial fibrillation [id number] score of 3-4 off Coumadin pre- opnow with subtherapeutic INR 7. Pericardial effusion probably uremic pericarditis, moderate to large in severity/no tamponade 8. Diabetes mellitus 9. Hypothyroidism 10. History of PTE 11. ESRD 12. History of colon cancer PLAN: 1. Empiric antibiotic course as per ID 2. HD as per renal service, judicious hydration 3. Hold Plavix and Coumadin pre-op, continue heparin gtt as INR<2.0 with close monitoring of CBC and PTT 4. NGT decompression, patient awaiting transfer to surgery service at [facility] pending bed availability, started Clininmix, consider TPN 5. Resume Toprol XL 12.5 qd and Entresto 24/26 bid once able to tolerate oral 6. Given absence of symptoms of acute coronary syndrome, decompensated CHF or malignant arrhythmia, may proceed with surgical intervention and JOSSIE from CV- standpoint Impregnating Tank Operator: Dr. Ghassan Durant
[2018-01-26] MEDS: POLYETHYLENE GLYCOL 3350 119 GM BTL PO SCH (09:41)
[2018-01-26] MEDS ORDERED: BENZOCAINE/MENTH/CETYLPYRD CL 1 EACH LOZENGE MM PRN (10:06)
--- NOTE | 2018-01-26 11:24 | PN ---
Progress Note (short form) - Note Progress Note: 72 y/o male found sitting in chair. Appears lethargic and weak. Reports no flatus or BM. NGT in place. C/o pain in stomach and rt foot. Stomach pain > rt ft. C/o of being dry and unable to sleep. Vital Signs Period Temp Pulse Resp BP Sys/Yoon Pulse Ox Last 24 Hr 97.3 F-98.2 F 66-78 14-20 102-113/57-72 100 CBC, BMP 01/26/18 06:00 01/25/18 08:50 HEENT- Face emaciated, NGT in place Neck- supple Lungs-CTAB Heart- S1/S2 Abd- Distended, tender Ext- B/L LE edema, Rt> Lt Active Medications Acetaminophen (Ofirmev Injection -) 1,000 mg IVPB Q6H PRN PRN Reason: PAIN SCALE 5-10 Last Admin: 01/26/18 09:14 Dose: 1,000 mg Benzocaine/Menthol (Cepacol Lozenge -) 1 each MM PRN PRN PRN Reason: SORE THROAT Heparin Sodium (Porcine) (Heparin -) 1,000 unit IVPUSH PRN PRN PRN Reason: Heparin Heparin Sodium (Porcine) (Heparin -) 5,000 unit IVPUSH PRN PRN PRN Reason: Heparin Heparin Sodium (Porcine) 25, (000 unit/ Sodium Chloride) 500 mls @ 20 mls/hr IV TITR [facility]; Protocol Last Admin: 01/25/18 18:29 Dose: 1,000 unit/hr, 20 mls/hr Amino Acids (Clinimix -) 1,000 mls @ 42 mls/hr IV Q12H [facility] Last Admin: 01/26/18 07:49 Dose: Not Given Insulin Aspart (Novolog Vial Sliding Scale -) 1 vial SQ ACHS [facility]; Protocol Last Admin: 01/26/18 07:19 Dose: Not Given Latanoprost (Xalatan 0.005% Eye Drops -) 1 drop OD HS [facility] Last Admin: 01/25/18 21:29 Dose: 1 drop Levothyroxine Sodium (Synthroid Injection -) 37.5 mcg IVPUSH DAILY [facility] Last Admin: 01/26/18 09:14 Dose: 37.5 mcg Ondansetron HCl (Zofran Injection) 4 mg IVPUSH Q6H PRN PRN Reason: NAUSEA AND/OR VOMITING Last Admin: 01/25/18 14:14 Dose: 4 mg Polyethylene Glycol (Miralax (For Daily Use) -) 17 gm PO BID [facility] Last Admin: 01/26/18 09:41 Dose: Not Given Vancomycin HCl (Vancomycin (Pre-Docked)) 1,000 mg IVPB TuThSa [facility] Last Admin: 01/25/18 12:18 Dose: Not Given assessment / plan # SBO NGT in place --with 1500 cc drainage distal SBO persist Currently attempting to transfer to awaiting isolation bed Ice chips and lozenges PRN #Insomnia IV Benadryl now IV Ativan q hs #s/p right TMA 01/03/18 non healing will need Rt BKA after resolution of SBO correction of INR dependent on schedule for OR Known to have chronic pericardial effusion Known osteomyelitis, +MRSA Cont IV antibiotics per ID Cardio / ID / Nephrology #s/p amputation of rt toes 2-5 2/2 gangrene #osteomyelitis #hyponatremia- resolved #PVD PLavix on hold last dose day prior to admission #CKD5 on chronic HD (T/T/S) #DM on insulin / sliding scale # a fib heparin drip Coumadin on hold #CAD #Cardiomyopathy s/p ICD #hypothyroid #HF -- echo done last admission had cardiac clearance 01/01/18 for TMA #anemia of chronic disease # hx of pericardial effusion -moderate / chronic >6 months hx of colon ca s/p resection hx of PE - on a/c hx of pneumopericardium Problem List - Problems (1) Gangrene of foot Code(s): I96 - GANGRENE, NOT ELSEWHERE CLASSIFIED (2) Open wound of foot Code(s): S91.309A - UNSPECIFIED OPEN WOUND, UNSPECIFIED FOOT, INITIAL ENCOUNTER Qualifiers: Encounter type: subsequent encounter Laterality: right Qualified Code(s) : S91.301D - Unspecified open wound, right foot, subsequent encounter (3) Anemia Code(s): D64.9 - ANEMIA, UNSPECIFIED Qualifiers: Anemia type: due to chronic kidney disease (4) Atrial fibrillation Code(s): I48.91 - UNSPECIFIED ATRIAL FIBRILLATION Qualifiers: Atrial fibrillation type: permanent Qualified Code(s): I48.2 - Chronic atrial fibrillation (5) Cardiomyopathy Code(s): I42.9 - CARDIOMYOPATHY, UNSPECIFIED Qualifiers: Cardiomyopathy type: unspecified Qualified Code(s): I42.9 - Cardiomyopathy , unspecified (6) Chronic kidney disease (CKD), stage V Code(s): N18.5 - CHRONIC KIDNEY DISEASE, STAGE 5 (7) Chronic kidney disease on chronic dialysis Code(s): N18.6 - END STAGE RENAL DISEASE; Z99.2 - DEPENDENCE ON RENAL DIALYSIS (8) Diabetes mellitus Code(s): E11.9 - TYPE 2 DIABETES MELLITUS WITHOUT COMPLICATIONS Qualifiers: Diabetes mellitus type: type 2 Diabetes mellitus senior care insulin use: with senior care use Diabetes mellitus complication detail: with peripheral angiopathy with gangrene (9) HTN (hypertension) Code(s): I10 - ESSENTIAL (PRIMARY) HYPERTENSION Qualifiers: Hypertension type: essential hypertension Qualified Code(s): I10 - Essential (primary) hypertension (10) Hypotension Code(s): I95.9 - HYPOTENSION, UNSPECIFIED Qualifiers: Hypotension type: other hypotension type Qualified Code(s): I95.89 - Other hypotension (11) Hypothyroid Code(s): E03.9 - HYPOTHYROIDISM, UNSPECIFIED Qualifiers: Hypothyroidism type: unspecified Qualified Code(s): E03.9 - Hypothyroidism , unspecified (12) ICD (implantable cardioverter-defibrillator) in place Code(s): Z95.810 - PRESENCE OF AUTOMATIC (IMPLANTABLE) CARDIAC DEFIBRILLATOR (13) Osteomyelitis Code(s): M86.9 - OSTEOMYELITIS, UNSPECIFIED Qualifiers: Osteomyelitis type: other Osteomyelitis location: foot Laterality: right Qualified Code(s): M86.8X7 - Other osteomyelitis, ankle and foot (14) Pericardial effusion Code(s): I31.3 - PERICARDIAL EFFUSION (NONINFLAMMATORY) (15) Status post peripheral artery angioplasty Code(s): Z98.62 - PERIPHERAL VASCULAR ANGIOPLASTY STATUS (16) Status post transmetatarsal amputation of right foot Code(s): Z89.431 - ACQUIRED ABSENCE OF RIGHT FOOT
--- NOTE | 2018-01-26 11:30 | PN ---
Progress Note, Physician History of Present Illness: Pt seen and examined at bedside. He still has NG to suction. Pt has been accepted to [facility] and is waiting for a bed. - Current Medication List Current Medications: Active Medications Acetaminophen (Ofirmev Injection -) 1,000 mg IVPB Q6H PRN PRN Reason: PAIN SCALE 5-10 Last Admin: 01/26/18 09:14 Dose: 1,000 mg Benzocaine/Menthol (Cepacol Lozenge -) 1 each MM PRN PRN PRN Reason: SORE THROAT Heparin Sodium (Porcine) (Heparin -) 1,000 unit IVPUSH PRN PRN PRN Reason: Heparin Heparin Sodium (Porcine) (Heparin -) 5,000 unit IVPUSH PRN PRN PRN Reason: Heparin Heparin Sodium (Porcine) 25, (000 unit/ Sodium Chloride) 500 mls @ 20 mls/hr IV TITR [facility]; Protocol Last Admin: 01/25/18 18:29 Dose: 1,000 unit/hr, 20 mls/hr Amino Acids (Clinimix -) 1,000 mls @ 42 mls/hr IV Q12H [facility] Last Admin: 01/26/18 07:49 Dose: Not Given Insulin Aspart (Novolog Vial Sliding Scale -) 1 vial SQ ACHS [facility]; Protocol Last Admin: 01/26/18 07:19 Dose: Not Given Latanoprost (Xalatan 0.005% Eye Drops -) 1 drop OD HS [facility] Last Admin: 01/25/18 21:29 Dose: 1 drop Levothyroxine Sodium (Synthroid Injection -) 37.5 mcg IVPUSH DAILY [facility] Last Admin: 01/26/18 09:14 Dose: 37.5 mcg Ondansetron HCl (Zofran Injection) 4 mg IVPUSH Q6H PRN PRN Reason: NAUSEA AND/OR VOMITING Last Admin: 01/25/18 14:14 Dose: 4 mg Polyethylene Glycol (Miralax (For Daily Use) -) 17 gm PO BID [facility] Last Admin: 01/26/18 09:41 Dose: Not Given Vancomycin HCl (Vancomycin (Pre-Docked)) 1,000 mg IVPB TuThSa [facility] Last Admin: 01/25/18 12:18 Dose: Not Given - Objective Vital Signs: Vital Signs Temperature 97.6 F 01/26/18 08:47 Pulse Rate 66 01/26/18 08:47 Respiratory Rate 20 01/26/18 08:47 Blood Pressure 113/60 01/26/18 08:47 O2 Sat by Pulse Oximetry (%) 100 01/25/18 21:00 Constitutional: Yes: Calm Eyes: Yes: Conjunctiva Clear HENT: Yes: Atraumatic Neck: Yes: Supple Cardiovascular: Yes: S1, S2 Respiratory: Yes: On Nasal O2 Gastrointestinal: Yes: Tenderness Genitourinary: Yes: WNL Edema: Yes Edema: LLE: 1+, RLE: 1+ Neurological: Yes: Oriented Psychiatric: Yes: Oriented Labs: CBC, BMP 01/26/18 06:00 01/25/18 08:50 INR, PTT INR 1.91 (0.83-1.09) H 01/22/18 06:30 Problem List - Problems (1) Gangrene of foot Code(s): I96 - GANGRENE, NOT ELSEWHERE CLASSIFIED (2) Anemia Code(s): D64.9 - ANEMIA, UNSPECIFIED (3) ESRD (end stage renal disease) Code(s): N18.6 - END STAGE RENAL DISEASE Assessment/Plan Current Medications Generic Name Dose Route Start Last Admin Trade Name Freq PRN Reason Stop Dose Admin Acetaminophen 1,000 mg 01/21/18 10:23 01/26/18 09:14 Ofirmev Injection - IVPB 1,000 mg Q6H PRN Administration PAIN SCALE 5-10 Benzocaine/Menthol 1 each 01/26/18 10:06 Cepacol Lozenge - MM PRN PRN SORE THROAT Heparin Sodium (Porcine) 1,000 unit 01/22/18 11:14 Heparin - IVPUSH PRN PRN Heparin Heparin Sodium (Porcine) 5,000 unit 01/22/18 11:14 Heparin - IVPUSH PRN PRN Heparin Heparin Sodium (Porcine) 25, 500 mls @ 20 mls/hr 01/22/18 11:15 01/25/18 18: 29 000 unit/ Sodium Chloride IV 1,000 unit/hr TITR [facility] 20 mls/hr Administration Protocol 1,000 UNIT/HR Amino Acids 1,000 mls @ 42 mls/hr 01/25/18 14:15 01/26/18 07:49 Clinimix - IV Not Given Q12H [facility] Insulin Aspart 1 vial 01/18/18 07:00 01/26/18 07:19 Novolog Vial Sliding Scale - SQ Not Given ACHS [facility] Protocol Latanoprost 1 drop 01/17/18 22:00 01/25/18 21:29 Xalatan 0.005% Eye Drops - OD 1 drop HS [facility] Administration Levothyroxine Sodium 37.5 mcg 01/18/18 10:00 01/26/18 09:14 Synthroid Injection - IVPUSH 37.5 mcg DAILY [facility] Administration Ondansetron HCl 4 mg 01/17/18 09:05 01/25/18 14:14 Zofran Injection IVPUSH 4 mg Q6H PRN Administration NAUSEA AND/OR VOMITING Polyethylene Glycol 17 gm 01/19/18 22:00 01/26/18 09:41 Miralax (For Daily Use) - PO Not Given BID [facility] Vancomycin HCl 1,000 mg 01/24/18 12:29 01/25/18 12:18 Vancomycin (Pre-Docked) IVPB Not Given TuTa [facility] Impression 1. ESRD 2. hx pericardial effusion 3. hx pneumopericardium 4. hypothyroidism 5. a-fib 6. hypotension 7. hx of colon cancer 8. CHF 9. DM 10. hx of PE 11. CAD 12. right stump infection 13. SBO Plan - HD in am - pt waiting for bed in [facility] - clinimix started - he does not have central access for tpn - pt NPO with ng suction - surgery follow up - bka on hold for now - cont wound care - epogen for anemia Dr Conklin
[2018-01-26] MEDS ORDERED: INSULIN (NOVOLOG) ASPART 100 UNITS/ML 10ML VIAL ONE (11:54)
[2018-01-26] MEDS ORDERED: SODIUM CHLORIDE 250 ML IV PRN (12:39)
--- NOTE | 2018-01-26 13:26 | PN ---
Progress Note, Physician History of Present Illness: stable awaiting bed at [facility] still with ng tube pain still present - Current Medication List Current Medications: Active Medications Acetaminophen (Ofirmev Injection -) 1,000 mg IVPB Q6H PRN PRN Reason: PAIN SCALE 5-10 Last Admin: 01/26/18 09:14 Dose: 1,000 mg Benzocaine/Menthol (Cepacol Lozenge -) 1 each MM PRN PRN PRN Reason: SORE THROAT Epoetin Hector (Procrit -) 3,000 unit IVPUSH ONCE ONE Stop: 01/27/18 11:31 Heparin Sodium (Porcine) (Heparin -) 1,000 unit IVPUSH PRN PRN PRN Reason: Heparin Heparin Sodium (Porcine) (Heparin -) 5,000 unit IVPUSH PRN PRN PRN Reason: Heparin Heparin Sodium (Porcine) 25, (000 unit/ Sodium Chloride) 500 mls @ 20 mls/hr IV TITR [facility]; Protocol Last Admin: 01/25/18 18:29 Dose: 1,000 unit/hr, 20 mls/hr Amino Acids (Clinimix -) 1,000 mls @ 42 mls/hr IV Q12H [facility] Last Admin: 01/26/18 07:49 Dose: Not Given Sodium Chloride (Normal Saline -) 250 mls @ 3,000 mls/hr IV PRN PRN PRN Reason: Hypotension during Dialysis Stop: 01/27/18 11:30 Fat Emulsion Intravenous (Intralipid -) 250 mls @ 20.833 mls/hr IV DAILY@2200 [facility] Insulin Aspart (Novolog Vial Sliding Scale -) 1 vial SQ ACHS [facility]; Protocol Last Admin: 01/26/18 11:55 Dose: 6 units Latanoprost (Xalatan 0.005% Eye Drops -) 1 drop OD HS [facility] Last Admin: 01/25/18 21:29 Dose: 1 drop Levothyroxine Sodium (Synthroid Injection -) 37.5 mcg IVPUSH DAILY [facility] Last Admin: 01/26/18 09:14 Dose: 37.5 mcg Lorazepam (Ativan Injection -) 1 mg IM DAILY@2000 [facility] Multivitamins/Minerals (Infuvite Adult -) 10 ml IV DAILY [facility] Ondansetron HCl (Zofran Injection) 4 mg IVPUSH Q6H PRN PRN Reason: NAUSEA AND/OR VOMITING Last Admin: 01/25/18 14:14 Dose: 4 mg Polyethylene Glycol (Miralax (For Daily Use) -) 17 gm PO BID [facility] Last Admin: 01/26/18 09:41 Dose: Not Given Vancomycin HCl (Vancomycin (Pre-Docked)) 1,000 mg IVPB TuThSa [facility] Last Admin: 01/25/18 12:18 Dose: Not Given - Objective Vital Signs: Vital Signs Temperature 97.6 F 01/26/18 08:47 Pulse Rate 66 01/26/18 08:47 Respiratory Rate 20 01/26/18 08:47 Blood Pressure 113/60 01/26/18 08:47 O2 Sat by Pulse Oximetry (%) 100 01/25/18 21:00 Constitutional: Yes: Calm, Mild Distress Cardiovascular: Yes: Regular Rate and Rhythm Respiratory: Yes: Regular, On Nasal O2 Gastrointestinal: Yes: Soft, Hypoactive Bowel Sounds, Other (ng tube in place) Musculoskeletal: Yes: WNL Extremities: Yes: Other Neurological: Yes: Alert, Oriented Psychiatric: Yes: Alert, Oriented Labs: CBC, BMP 01/26/18 06:00 01/25/18 08:50 INR, PTT INR 1.91 (0.83-1.09) H 01/22/18 06:30 Assessment/Plan Problem List - Problems (1) Gangrene of foot Code(s): I96 - GANGRENE, NOT ELSEWHERE CLASSIFIED (2) Atrial fibrillation Code(s): I48.91 - UNSPECIFIED ATRIAL FIBRILLATION Qualifiers: Atrial fibrillation type: permanent Qualified Code(s): I48.2 - Chronic atrial fibrillation (3) Cardiomyopathy Code(s): I42.9 - CARDIOMYOPATHY, UNSPECIFIED Qualifiers: Cardiomyopathy type: unspecified Qualified Code(s): I42.9 - Cardiomyopathy , unspecified (4) Chronic anticoagulation Code(s): Z79.01 - LEARNING SOLUTIONS SPECIALIST (CURRENT) USE OF 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 (5) Diabetes mellitus Code(s): E11.9 - TYPE 2 DIABETES MELLITUS WITHOUT COMPLICATIONS Qualifiers: Diabetes mellitus type: type 2 Diabetes mellitus intermodal dispatcher insulin use: with senior living use Diabetes mellitus complication detail: with peripheral angiopathy with gangrene (6) ESRD (end stage renal disease) Code(s): N18.6 - END STAGE RENAL DISEASE (7) Hypothyroid Code(s): E03.9 - HYPOTHYROIDISM, UNSPECIFIED Qualifiers: Hypothyroidism type: unspecified Qualified Code(s): E03.9 - Hypothyroidism , unspecified (8) ICD (implantable cardioverter-defibrillator) in place Code(s): Z95.810 - PRESENCE OF AUTOMATIC (IMPLANTABLE) CARDIAC DEFIBRILLATOR (9) Open wound of foot Code(s): S91.309A - UNSPECIFIED OPEN WOUND, UNSPECIFIED FOOT, INITIAL ENCOUNTER Qualifiers: Encounter type: subsequent encounter Laterality: right Qualified Code(s) : S91.301D - Unspecified open wound, right foot, subsequent encounter (10) Pericardial effusion Code(s): I31.3 - PERICARDIAL EFFUSION (NONINFLAMMATORY) (12) Status post peripheral artery angioplasty Code(s): Z98.62 - PERIPHERAL VASCULAR ANGIOPLASTY STATUS (13) Status post transmetatarsal amputation of right foot Code(s): Z89.431 - ACQUIRED ABSENCE OF RIGHT FOOT plan continue current mgmt rest as per the team patient awaiting surgery transfer to [facility] when bed follow [facility] wound care patient needs surgery for the foot and abd
--- NOTE | 2018-01-26 13:47 | PN ---
GI Progress Note Subjective: GI Note: NO pain. No flatus. Wants more ice chips. Now getting amino acids and lipids. CT reveals worsening SBO. - Objective Vital Signs: Vital Signs Temperature 97.6 F 01/26/18 08:47 Pulse Rate 66 01/26/18 08:47 Respiratory Rate 20 01/26/18 08:47 Blood Pressure 113/60 01/26/18 08:47 O2 Sat by Pulse Oximetry (%) 100 01/25/18 21:00 CBC,CMP WBC 3.4 K/mm3 (4.0-10.0) L 01/26/18 06:00 RBC 3.60 M/mm3 (4.00-5.60) L 01/26/18 06:00 Hgb 11.3 GM/dL (11.7-16.9) L 01/26/18 06:00 Hct 35.5 % (35.4-49) 01/26/18 06:00 MCV 98.6 fl (80-96) H 01/26/18 06:00 MCH 31.5 pg (25.7-33.7) 01/26/18 06:00 MCHC 31.9 g/dl (32.0-35.9) L 01/26/18 06:00 RDW 22.7 % (11.9-15.9) H 01/26/18 06:00 Plt Count 168 K/MM3 (134-434) 01/26/18 06:00 MPV 9.0 fl (7.5-11.1) 01/26/18 06:00 Absolute Neuts (auto) 2.1 K/mm3 (1.5-8.0) 01/24/18 06:15 Total Counted 100 01/21/18 08:00 Neutrophils % 52.9 % (42.8-82.8) 01/24/18 06:15 Neutrophils % (Manual) 53.5 % (42.8-82.8) 01/24/18 06:15 Band Neutrophils % 2.0 % 01/24/18 06:15 Lymphocytes % 13.1 % (8-40) D 01/24/18 06:15 Lymphocytes % (Manual) 14.2 % (8-40) D 01/24/18 06:15 Monocytes % 31.6 % (3.8-10.2) H 01/24/18 06:15 Monocytes % (Manual) 26 % (3.8-10.2) H 01/24/18 06:15 Eosinophils % 1.6 % (0-4.5) 01/24/18 06:15 Eosinophils % (Manual) 4.0 % (0-4.5) 01/24/18 06:15 Basophils % 0.8 % (0-2.0) 01/24/18 06:15 Basophils % (Manual) 0.0 % (0-2.0) 01/24/18 06:15 Myelocytes % (Man) 0 % (0-2) 01/24/18 06:15 Promyelocytes % (Man) 0 % (0-2) 01/24/18 06:15 Blast Cells % (Manual) 0 % (0-0) 01/24/18 06:15 Nucleated RBC % 1 % (0-0) H 01/24/18 06:15 Metamyelocytes 0 % (0-2) 01/24/18 06:15 Differential Comment Cancelled 01/21/18 08:00 Hypersegmented Neuts Cancelled 01/21/18 08:00 Plasma Cells Cancelled 01/21/18 08:00 Smudge Cells Cancelled 01/21/18 08:00 Other Cell Type Cancelled 01/21/18 08:00 Hypochromia 1+ 01/24/18 06:15 Toxic Granulation Cancelled 01/21/18 08:00 Dohle Bodies Cancelled 01/21/18 08:00 Parmjit Rods Cancelled 01/21/18 08:00 Platelet Estimate Normal 01/24/18 06:15 Platelet Comment Present 01/22/18 06:30 Polychromasia 1+ 01/24/18 06:15 Poikilocytosis 0 01/24/18 06:15 Basophilic Stippling Cancelled 01/21/18 08:00 Anisocytosis 1+ 01/24/18 06:15 Microcytosis 0 01/24/18 06:15 Macrocytosis 1+ 01/24/18 06:15 Spherocytes 1+ 01/22/18 06:30 Siderocytes Cancelled 01/21/18 08:00 Sickle Cells Cancelled 01/21/18 08:00 Target Cells 1+ 01/24/18 06:15 Tear Drop Cells 1+ 01/22/18 06:30 Ovalocytes 1+ 12/12/18 06:15 Stomatocytes Cancelled 01/21/18 08:00 Helmet Cells Cancelled 01/21/18 08:00 [place] Bodies Cancelled 01/21/18 08:00 [place] Rings Cancelled 01/21/18 08:00 [place] Cells 1+ 01/22/18 06:30 Acanthocytes (Spur) Cancelled 01/21/18 08:00 Rouleaux Cancelled 01/21/18 08:00 Fragmented RBCs Cancelled 01/21/18 08:00 Schistocytes 1+ 01/24/18 06:15 Sodium 141 mmol/L (136-145) 01/25/18 08:50 Potassium 3.7 mmol/L (3.5-5.1) 01/25/18 08:50 Chloride 100 mmol/L (98-107) 01/25/18 08:50 Carbon Dioxide 29 mmol/L (21-32) 01/25/18 08:50 Anion Gap 12 MMOL/L (8-16) 01/25/18 08:50 BUN 28 mg/dL (7-18) H 01/25/18 08:50 Creatinine 5.6 mg/dL (0.55-1.3) H 01/25/18 08:50 Creat Clearance w eGFR 10.09 (>60) 01/25/18 08:50 POC Glucometer 251 UNITS (80-120) 01/26/18 11:45 Random Glucose 93 mg/dL (74-106) 01/25/18 08:50 Lactic Acid 2.7 mmol/L (0.4-2.0) H* 01/17/18 23:43 Calcium 8.9 mg/dL (8.5-10.1) 01/25/18 08:50 Phosphorus 2.8 mg/dL (2.5-4.9) 01/17/18 06:36 Magnesium 2.0 mg/dL (1.8-2.4) 01/17/18 06:36 Total Bilirubin 1.1 mg/dL (0.2-1) H 01/19/18 07:00 AST 24 U/L (15-37) 01/19/18 07:00 ALT 12 U/L (13-61) L 01/19/18 07:00 Alkaline Phosphatase 132 U/L (45-117) H 01/19/18 07:00 Troponin I < 0.02 ng/ml (0.00-0.05) 01/17/18 23:43 B-Natriuretic Peptide > 431726.0 pg/ml (5-125) H 01/16/18 17:25 Total Protein 7.8 g/dl (6.4-8.2) 01/19/18 07:00 Albumin 2.2 g/dl (3.4-5.0) L 01/19/18 07:00 Constitutional: Calm Gastrointestinal Inspection: Yes: Distention ...Auscultate: Yes: Hypoactive Bowel Sounds ...Palpate: Yes: Soft, Other (palpable but nontender bowel loops and hernia) Labs: CBC, BMP 01/26/18 06:00 01/25/18 08:50 INR, PTT INR 1.91 (0.83-1.09) H 01/22/18 06:30 Assessment/Plan Persistent SBO despite NG suctioning Can have ice chip prn as the fluids is being suctioned up [place] [facility] [place]. Please call Dr Valdez as needed. Problem List - Problems (1) Small bowel obstruction due to adhesions Assessment/Plan: Refractory SBO in need of surgery Code(s): K56.50 - INTESTNL ADHESIONS, UNSP TO PARTIAL VERSUS COMPLETE OBST (2) Ileus Code(s): K56.7 - ILEUS, UNSPECIFIED (3) Gangrene of foot Code(s): I96 - GANGRENE, NOT ELSEWHERE CLASSIFIED (4) Atrial fibrillation Code(s): I48.91 - UNSPECIFIED ATRIAL FIBRILLATION Qualifiers: Atrial fibrillation type: permanent Qualified Code(s): I48.2 - Chronic atrial fibrillation (5) Chronic kidney disease on chronic dialysis Code(s): N18.6 - END STAGE RENAL DISEASE; Z99.2 - DEPENDENCE ON RENAL DIALYSIS (6) Gangrene of toe of right foot Code(s): I96 - GANGRENE, NOT ELSEWHERE CLASSIFIED (7) ICD (implantable cardioverter-defibrillator) in place Code(s): Z95.810 - PRESENCE OF AUTOMATIC (IMPLANTABLE) CARDIAC DEFIBRILLATOR (8) History of malignant neoplasm of colon in adulthood Code(s): Z85.038 - PERSONAL HISTORY OF MALIGNANT NEOPLASM OF LARGE INTESTINE
--- NOTE | 2018-01-26 14:26 | PN ---
Progress Note (short form) - Note Progress Note: surgery pt seen and examined. no pain. ngt 1900. no flatus repeat ct consistent with sbo. abd- soft, distended, reducible hernia Plan- sbo not resolved despite 6 days ngt. Pt will likely not improve without surgery or very prolonged ngt mangaement (1month). Cont tpn/lipids. awaiting transfer. no evidence of bowel compromise.
[2018-01-26] MEDS: MULTIVIT INJ. ADULT COMBO WITH VIT K 1 COMBO 10 ML VIAL IV SCH (15:39)
[2018-01-26] MEDS: HEPARIN - 25,000 UNIT in SODIUM CHLORIDE 495 ML IV SCH (15:44)
[2018-01-26] MEDS ORDERED: LORazepam 2 MG/ML SDV VIAL IM SCH (20:00)
[2018-01-26] MEDS ORDERED: FAT EMULSIONS 20% 250 ML PREMIX INFUS.BAG IV SCH (22:00)
[2018-01-26] MEDS: FAT EMULSIONS 250 ML IV SCH (22:38)
[2018-01-26] MEDS: LATANOPROST 0.005% OPHTH SOLN 2.5ML BOTTLE OD SCH (23:24)
[2018-01-27] MEDS: AMINO ACIDS 4.25%/D5W 1,000 ML IV SCH ×2 (02:15→15:19)
[2018-01-27] MEDS: INSULIN SLIDING SCALE (NOVOLOG) 1 VIAL SQ SCH ×4 (06:37→22:06)
--- NOTE | 2018-01-27 10:04 | PN ---
Progress Note (short form) - Note Progress Note: RENAL Pt is awake and alert looks uncomfortable sitting up on side of bed Last Vital Signs Temp Pulse Resp BP Pulse Ox 97.9 F 67 16 92/56 L 98 01/27/18 06:00 01/27/18 06:00 01/27/18 06:00 01/27/18 06:00 01/26/18 21:00 heent has an ngt lungs crackles at left base, decreased at right base cvs s1s2 rr abd soft ext bilat leg edema neuro a+ox3 CBC, BMP 01/26/18 06:00 01/25/18 08:50 Current Medications Generic Name Dose Route Start Last Admin Trade Name Freq PRN Reason Stop Dose Admin Acetaminophen 1,000 mg 01/21/18 10:23 01/26/18 18:04 Ofirmev Injection - IVPB 1,000 mg Q6H PRN Administration PAIN SCALE 5-10 Benzocaine/Menthol 1 each 01/26/18 10:06 01/26/18 17:00 Cepacol Lozenge - MM 1 each PRN PRN Administration SORE THROAT Epoetin Hector 3,000 unit 01/27/18 11:30 Procrit - IVPUSH 01/27/18 11:31 ONCE ONE Heparin Sodium (Porcine) 1,000 unit 01/22/18 11:14 Heparin - IVPUSH PRN PRN Heparin Heparin Sodium (Porcine) 5,000 unit 01/22/18 11:14 Heparin - IVPUSH PRN PRN Heparin Heparin Sodium (Porcine) 25, 500 mls @ 20 mls/hr 01/22/18 11:15 01/26/18 15: 44 000 unit/ Sodium Chloride IV 1,000 unit/hr TITR [facility] 20 mls/hr Administration Protocol 1,000 UNIT/HR Amino Acids 1,000 mls @ 42 mls/hr 01/25/18 14:15 01/27/18 02:15 Clinimix - IV Not Given Q12H [facility] Sodium Chloride 250 mls @ 3,000 mls/hr 01/26/18 11:30 Normal Saline - IV 01/27/18 11:30 PRN PRN Hypotension during Dialysis Fat Emulsion Intravenous 250 mls @ 20.833 mls/hr 01/26/18 22:00 01/26/18 22: 38 Intralipid - IV 20.833 mls/hr DAILY@2200 [facility] Administration Insulin Aspart 1 vial 01/18/18 07:00 01/27/18 06:37 Novolog Vial Sliding Scale - SQ Not Given [facility] Protocol Latanoprost 1 drop 01/17/18 22:00 01/26/18 23:24 Xalatan 0.005% Eye Drops - OD 1 drop HS [facility] Administration Levothyroxine Sodium 37.5 mcg 01/18/18 10:00 01/26/18 09:14 Synthroid Injection - IVPUSH 37.5 mcg DAILY [facility] Administration Lorazepam 1 mg 01/26/18 20:00 01/26/18 23:31 Ativan Injection - IM 1 mg DAILY@2000 [facility] Administration Multivitamins/Minerals 10 ml 01/26/18 14:00 01/26/18 15:39 Infuvite Adult - IV 10 ml DAILY [facility] Administration Ondansetron HCl 4 mg 01/17/18 09:05 01/25/18 14:14 Zofran Injection IVPUSH 4 mg Q6H PRN Administration NAUSEA AND/OR VOMITING Vancomycin HCl 1,000 mg 01/24/18 12:29 01/25/18 12:18 Vancomycin (Pre-Docked) IVPB Not Given TuThSa [facility] Impression 1. ESRD 2. hx pericardial effusion 3. hx pneumopericardium 4. hypothyroidism 5. a-fib 6. hypotension 7. hx of colon cancer 8. CHF 9. DM 10. hx of PE 11. CAD 12. right stump infection 13. SBO Plan - HD today, may need more than tiw hd - pt waiting for bed in [facility] [place] - clinimix started - he does not have central access for tpn - pt NPO with ng suction - surgery follow up - bka on hold for now - cont wound care - epogen for anemia - repeat tsh MV
[2018-01-27] MEDS ORDERED: PT OWN MED DRAWER 7, Y5N ONE ×2 (10:30→21:57)
[2018-01-27] MEDS: LEVOTHYROXINE SODIUM 100 MCG VIAL IVPUSH SCH (10:45)
--- NOTE | 2018-01-27 11:28 | PN ---
Progress Note (short form) - Note Progress Note: surgery pt seen and examined. no pain. wants more ice chips. ngt > 2000 abd- soft, nt, hernia reducible now 1 week since [facility] accepted transfer but no bed available. cont medical management with ngt. needs full nutrition via parenteral route. no evidence of bowel compromise. will likely require high risk exploratory surgery.
[2018-01-27 12:18] LABS: BASO % 0.5 % (0-2.0); EOS % 2.1 % (0-4.5); HEMOGLOBIN 10.9 GM/dL (11.7-16.9); LYMPH % 8.4 % (8-40); MCH 29.4 pg (25.7-33.7); MCHC 29.4 g/dl (32.0-35.9); MEAN CELL VOLUME 99.9 fl (80-96); MEAN PLT VOLUME 9.1 fl (7.5-11.1); MONO % 26.3 % (3.8-10.2); NEUT % 62.7 % (42.8-82.8); PLATELET COUNT 167 K/MM3 (134-434); RDW 22.3 % (11.9-15.9); WHITE BLOOD COUNT 4.3 K/mm3 (4.0-10.0)
[2018-01-27] MEDS ORDERED: EPOETIN ALFA 3,000 UNIT/1 ML ML IVPUSH ONE (12:45)
[2018-01-27 12:55] LABS: ALBUMIN 2.6 g/dl (3.4-5.0); ALK PHOS 90 U/L (45-117); ANION GAP 9 MMOL/L (8-16); BILIRUBIN,TOTAL 1.1 mg/dL (0.2-1); BLOOD UREA NITROGEN 31 mg/dL (7-18); CHLORIDE 96 mmol/L (98-107); CO2 34 mmol/L (21-32); CREATININE 5.5 mg/dL (0.55-1.3); GLUCOSE,RANDOM 134 mg/dL (74-106); POTASSIUM 3.3 mmol/L (3.5-5.1); SGOT/AST 23 U/L (15-37); SGPT/ALT 11 U/L (13-61); SODIUM 140 mmol/L (136-145); TOT PROT 6.9 g/dl (6.4-8.2)
[2018-01-27 14:02] LABS: ANISOCYTOSIS 1+; MACROCYTOSIS 1+; PLATELET ESTIMATE NORMAL; TARGET CELLS 1+
[2018-01-27 14:04] VITALS: BP 104/59; PULSE 65; TEMP 97.7
--- NOTE | 2018-01-27 14:15 | PN ---
Progress Note, Physician History of Present Illness: stable awaiting bed at [facility] still with ng tube pain still present continues to have abd pain - Current Medication List Current Medications: Active Medications Acetaminophen (Ofirmev Injection -) 1,000 mg IVPB Q6H PRN PRN Reason: PAIN SCALE 5-10 Last Admin: 01/26/18 18:04 Dose: 1,000 mg Benzocaine/Menthol (Cepacol Lozenge -) 1 each MM PRN PRN PRN Reason: SORE THROAT Last Admin: 01/26/18 17:00 Dose: 1 each Heparin Sodium (Porcine) (Heparin -) 1,000 unit IVPUSH PRN PRN PRN Reason: Heparin Heparin Sodium (Porcine) (Heparin -) 5,000 unit IVPUSH PRN PRN PRN Reason: Heparin Heparin Sodium (Porcine) 25, (000 unit/ Sodium Chloride) 500 mls @ 20 mls/hr IV TITR [facility]; Protocol Last Admin: 01/26/18 15:44 Dose: 1,000 unit/hr, 20 mls/hr Amino Acids (Clinimix -) 1,000 mls @ 42 mls/hr IV Q12H [facility] Last Admin: 01/27/18 02:15 Dose: Not Given Fat Emulsion Intravenous (Intralipid -) 250 mls @ 20.833 mls/hr IV DAILY@2200 [facility] Last Admin: 01/26/18 22:38 Dose: 20.833 mls/hr Insulin Aspart (Novolog Vial Sliding Scale -) 1 vial SQ ACHS [facility]; Protocol Last Admin: 01/27/18 14:02 Dose: Not Given Latanoprost (Xalatan 0.005% Eye Drops -) 1 drop OD HS [facility] Last Admin: 01/26/18 23:24 Dose: 1 drop Levothyroxine Sodium (Synthroid Injection -) 37.5 mcg IVPUSH DAILY [facility] Last Admin: 01/27/18 10:45 Dose: 37.5 mcg Lorazepam (Ativan Injection -) 1 mg IM DAILY@2000 [facility] Last Admin: 01/26/18 23:31 Dose: 1 mg Multivitamins/Minerals (Infuvite Adult -) 10 ml IV DAILY [facility] Last Admin: 01/26/18 15:39 Dose: 10 ml Ondansetron HCl (Zofran Injection) 4 mg IVPUSH Q6H PRN PRN Reason: NAUSEA AND/OR VOMITING Last Admin: 01/25/18 14:14 Dose: 4 mg Vancomycin HCl (Vancomycin (Pre-Docked)) 1,000 mg IVPB [facility] Last Admin: 01/25/18 12:18 Dose: Not Given - Objective Vital Signs: Vital Signs Temperature 97.7 F 01/27/18 14:00 Pulse Rate 65 01/27/18 14:00 Respiratory Rate 17 01/27/18 14:00 Blood Pressure 104/59 L 01/27/18 14:00 O2 Sat by Pulse Oximetry (%) 97 01/27/18 09:00 Constitutional: Yes: Calm, Mild Distress Cardiovascular: Yes: Regular Rate and Rhythm Respiratory: Yes: Regular, CTA Bilaterally Gastrointestinal: Yes: Tenderness, Other (ng tube in place,absent bowel sounds) Musculoskeletal: Yes: WNL Extremities: Yes: Other Wound/Incision: Yes: Dressing Dry and Intact Neurological: Yes: Alert, Oriented Labs: CBC, BMP 01/27/18 11:30 01/27/18 11:30 INR, PTT INR 1.91 (0.83-1.09) H 01/22/18 06:30 Assessment/Plan Problem List - Problems (1) Gangrene of foot Code(s): I96 - GANGRENE, NOT ELSEWHERE CLASSIFIED (2) Atrial fibrillation Code(s): I48.91 - UNSPECIFIED ATRIAL FIBRILLATION Qualifiers: Atrial fibrillation type: permanent Qualified Code(s): I48.2 - Chronic atrial fibrillation (3) Cardiomyopathy Code(s): I42.9 - CARDIOMYOPATHY, UNSPECIFIED Qualifiers: Cardiomyopathy type: unspecified Qualified Code(s): I42.9 - Cardiomyopathy , unspecified (4) Chronic anticoagulation Code(s): Z79.01 - INJECTION MOLDING SUPERVISOR (CURRENT) USE OF 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 (5) Diabetes mellitus Code(s): E11.9 - TYPE 2 DIABETES MELLITUS WITHOUT COMPLICATIONS Qualifiers: Diabetes mellitus type: type 2 Diabetes mellitus academic dean insulin use: with skilled nursing use Diabetes mellitus complication detail: with peripheral angiopathy with gangrene (6) ESRD (end stage renal disease) Code(s): N18.6 - END STAGE RENAL DISEASE (7) Hypothyroid Code(s): E03.9 - HYPOTHYROIDISM, UNSPECIFIED Qualifiers: Hypothyroidism type: unspecified Qualified Code(s): E03.9 - Hypothyroidism , unspecified (8) ICD (implantable cardioverter-defibrillator) in place Code(s): Z95.810 - PRESENCE OF AUTOMATIC (IMPLANTABLE) CARDIAC DEFIBRILLATOR (9) Open wound of foot Code(s): S91.309A - UNSPECIFIED OPEN WOUND, UNSPECIFIED FOOT, INITIAL ENCOUNTER Qualifiers: Encounter type: subsequent encounter Laterality: right Qualified Code(s) : S91.301D - Unspecified open wound, right foot, subsequent encounter (10) Pericardial effusion Code(s): I31.3 - PERICARDIAL EFFUSION (NONINFLAMMATORY) (12) Status post peripheral artery angioplasty Code(s): Z98.62 - PERIPHERAL VASCULAR ANGIOPLASTY STATUS (13) Status post transmetatarsal amputation of right foot Code(s): Z89.431 - ACQUIRED ABSENCE OF RIGHT FOOT plan continue current mgmt rest as per the team patient awaiting surgery transfer to [facility] when bed vanco during dialysis monitor level awaiting transfer ng tube to suction keep patient strict npo surgery
[2018-01-27] MEDS: MULTIVIT INJ. ADULT COMBO WITH VIT K 1 COMBO 10 ML VIAL IV SCH (15:07)
--- NOTE | 2018-01-27 20:49 | PN ---
Progress Note (short form) - Note Progress Note: in bd / mild- mod distress / continues with NGT to [facility] physical exam unchanged Vital Signs Period Temp Pulse Resp BP Sys/Yoon Pulse Ox Last 24 Hr 97.7 F-98.4 F 62-68 16-20 92-113/56-81 97-[address] with bilious drainage >2 l neck heart S1/S2 ireg lungs clear / decreased at bases abd remains distended ( less tense ) + tender to palpation + guarding ext unchanged 01/13 CBC, BMP 01/27/18 11:30 01/27/18 11:30 01/22/18 06:30 Active Medications Active Medications Acetaminophen (Ofirmev Injection -) 1,000 mg IVPB Q6H PRN PRN Reason: PAIN SCALE 5-10 Last Admin: 01/26/18 18:04 Dose: 1,000 mg Benzocaine/Menthol (Cepacol Lozenge -) 1 each MM PRN PRN PRN Reason: SORE THROAT Last Admin: 01/26/18 17:00 Dose: 1 each Heparin Sodium (Porcine) (Heparin -) 1,000 unit IVPUSH PRN PRN PRN Reason: Heparin Heparin Sodium (Porcine) (Heparin -) 5,000 unit IVPUSH PRN PRN PRN Reason: Heparin Last Admin: 01/27/18 15:09 Dose: 5,000 unit Heparin Sodium (Porcine) 25, (000 unit/ Sodium Chloride) 500 mls @ 20 mls/hr IV TITR VIRAJ; Protocol Last Titration: 01/27/18 15:32 Dose: 1,150 unit/hr, 23 mls/hr Amino Acids (Clinimix -) 1,000 mls @ 42 mls/hr IV Q12H VIRAJ Last Admin: 01/27/18 15:19 Dose: 42 mls/hr Fat Emulsion Intravenous (Intralipid -) 250 mls @ 20.833 mls/hr IV DAILY@2200 VIRAJ Last Admin: 01/26/18 22:38 Dose: 20.833 mls/hr Insulin Aspart (Novolog Vial Sliding Scale -) 1 vial SQ ACHS VIRAJ; Protocol Last Admin: 01/27/18 16:54 Dose: Not Given Latanoprost (Xalatan 0.005% Eye Drops -) 1 drop OD HS VIRAJ Last Admin: 01/26/18 23:24 Dose: 1 drop Levothyroxine Sodium (Synthroid Injection -) 37.5 mcg IVPUSH DAILY [facility] Last Admin: 01/27/18 10:45 Dose: 37.5 mcg Lorazepam (Ativan Injection -) 1 mg IM DAILY@1999 [facility] Last Admin: 01/26/18 23:31 Dose: 1 mg Multivitamins/Minerals (Infuvite Adult -) 10 ml IV DAILY [facility] Last Admin: 01/27/18 15:07 Dose: 10 ml Ondansetron HCl (Zofran Injection) 4 mg IVPUSH Q6H PRN PRN Reason: NAUSEA AND/OR VOMITING Last Admin: 01/25/18 14:14 Dose: 4 mg Vancomycin HCl (Vancomycin (Pre-Docked)) 1,000 mg IVPB TuTa [facility] Last Admin: 01/25/18 12:18 Dose: Not Given assment / plan # SBO NGT in place --with bilious drainage As of 01/25 on amino acids and lipids Ct of abd/ pelvs 01/25 --- SBO seems worse- colon largely collapsed / obstruction most likely distal ileal region / moderate amount of ascities still remains in some pain Currentlly attempting to transfer to await bed Cardio clearance done recently for TMA #osteomyelitis - vanco 1 gm on HD #hyponatremia #PVD s/p Previous RLE gangrene of toes 2-5 s/p amputation s/p right TMA 01/03/18 non healing will need BKA now on hold awaiting resolution of SBO PLavix on hold -- last dose day prior to admission #CKD5 on chronic HD (T/T/S) #DM on insulin / sliding scale - has not needed coverage # a fib heparin drip --PTT 35.7 Coumadin on hold #CAD #Cardiomyopathy s/p ICD #pericardial effusion moderate has been present >6monhs #hypothyroid #HF -- echo done last admission had cardiac clearance 01/01/18 #anemia of chronic disease on procrit Hgb 10.9 # hx of pericardial effusion -moderate / chronic >6 months # hx of colon ca s/p resection # hx of PE - on a/c # hx of pneumopericardium Problem List - Problems (1) Gangrene of foot Code(s): I96 - GANGRENE, NOT ELSEWHERE CLASSIFIED (2) Open wound of foot Code(s): S91.309A - UNSPECIFIED OPEN WOUND, UNSPECIFIED FOOT, INITIAL ENCOUNTER Qualifiers: Encounter type: subsequent encounter Laterality: right Qualified Code(s) : S91.301D - Unspecified open wound, right foot, subsequent encounter (3) Anemia Code(s): D64.9 - ANEMIA, UNSPECIFIED Qualifiers: Anemia type: due to chronic kidney disease (4) Atrial fibrillation Code(s): I48.91 - UNSPECIFIED ATRIAL FIBRILLATION Qualifiers: Atrial fibrillation type: permanent Qualified Code(s): I48.2 - Chronic atrial fibrillation (5) Cardiomyopathy Code(s): I42.9 - CARDIOMYOPATHY, UNSPECIFIED Qualifiers: Cardiomyopathy type: unspecified Qualified Code(s): I42.9 - Cardiomyopathy , unspecified (6) Chronic kidney disease (CKD), stage V Code(s): N18.5 - CHRONIC KIDNEY DISEASE, STAGE 5 (7) Chronic kidney disease on chronic dialysis Code(s): N18.6 - END STAGE RENAL DISEASE; Z99.2 - DEPENDENCE ON RENAL DIALYSIS (8) Diabetes mellitus Code(s): E11.9 - TYPE 2 DIABETES MELLITUS WITHOUT COMPLICATIONS Qualifiers: Diabetes mellitus type: type 2 Diabetes mellitus penitentiary insulin use: with penitentiary use Diabetes mellitus complication detail: with peripheral angiopathy with gangrene (9) HTN (hypertension) Code(s): I10 - ESSENTIAL (PRIMARY) HYPERTENSION Qualifiers: Hypertension type: essential hypertension Qualified Code(s): I10 - Essential (primary) hypertension (10) Hypotension Code(s): I95.9 - HYPOTENSION, UNSPECIFIED Qualifiers: Hypotension type: other hypotension type Qualified Code(s): I95.89 - Other hypotension (11) Hypothyroid Code(s): E03.9 - HYPOTHYROIDISM, UNSPECIFIED Qualifiers: Hypothyroidism type: unspecified Qualified Code(s): E03.9 - Hypothyroidism , unspecified (12) ICD (implantable cardioverter-defibrillator) in place Code(s): Z95.810 - PRESENCE OF AUTOMATIC (IMPLANTABLE) CARDIAC DEFIBRILLATOR (13) Osteomyelitis Code(s): M86.9 - OSTEOMYELITIS, UNSPECIFIED Qualifiers: Osteomyelitis type: other Osteomyelitis location: foot Laterality: right Qualified Code(s): M86.8X7 - Other osteomyelitis, ankle and foot (14) Pericardial effusion Code(s): I31.3 - PERICARDIAL EFFUSION (NONINFLAMMATORY) (15) Status post peripheral artery angioplasty Code(s): Z98.62 - PERIPHERAL VASCULAR ANGIOPLASTY STATUS (16) Status post transmetatarsal amputation of right foot Code(s): Z89.431 - ACQUIRED ABSENCE OF RIGHT FOOT
--- NOTE | 2018-01-27 21:23 | PN ---
Progress Note (short form) - Note Progress Note: 01/27/18 9pm called by [facility] Bed available Case discussed with optometrist president/practice owner who will be accepting case tonight Radiology disc prepared for transfer Patient notified of transfer Transfer to occur before midnight patient remains hemodynamically stable for transfer Problem List - Problems (1) Gangrene of foot Code(s): I96 - GANGRENE, NOT ELSEWHERE CLASSIFIED (2) Open wound of foot Code(s): S91.309A - UNSPECIFIED OPEN WOUND, UNSPECIFIED FOOT, INITIAL ENCOUNTER Qualifiers: Encounter type: subsequent encounter Laterality: right Qualified Code(s) : S91.301D - Unspecified open wound, right foot, subsequent encounter (3) Anemia Code(s): D64.9 - ANEMIA, UNSPECIFIED Qualifiers: Anemia type: due to chronic kidney disease (4) Atrial fibrillation Code(s): I48.91 - UNSPECIFIED ATRIAL FIBRILLATION Qualifiers: Atrial fibrillation type: permanent Qualified Code(s): I48.2 - Chronic atrial fibrillation (5) Cardiomyopathy Code(s): I42.9 - CARDIOMYOPATHY, UNSPECIFIED Qualifiers: Cardiomyopathy type: unspecified Qualified Code(s): I42.9 - Cardiomyopathy , unspecified (6) Chronic kidney disease (CKD), stage V Code(s): N18.5 - CHRONIC KIDNEY DISEASE, STAGE 5 (7) Chronic kidney disease on chronic dialysis Code(s): N18.6 - END STAGE RENAL DISEASE; Z99.2 - DEPENDENCE ON RENAL DIALYSIS (8) Diabetes mellitus Code(s): E11.9 - TYPE 2 DIABETES MELLITUS WITHOUT COMPLICATIONS Qualifiers: Diabetes mellitus type: type 2 Diabetes mellitus penitentiary insulin use: with events and promotions assistant use Diabetes mellitus complication detail: with peripheral angiopathy with gangrene (9) HTN (hypertension) Code(s): I10 - ESSENTIAL (PRIMARY) HYPERTENSION Qualifiers: Hypertension type: essential hypertension Qualified Code(s): I10 - Essential (primary) hypertension (10) Hypotension Code(s): I95.9 - HYPOTENSION, UNSPECIFIED Qualifiers: Hypotension type: other hypotension type Qualified Code(s): I95.89 - Other hypotension (11) Hypothyroid Code(s): E03.9 - HYPOTHYROIDISM, UNSPECIFIED Qualifiers: Hypothyroidism type: unspecified Qualified Code(s): E03.9 - Hypothyroidism , unspecified (12) ICD (implantable cardioverter-defibrillator) in place Code(s): Z95.810 - PRESENCE OF AUTOMATIC (IMPLANTABLE) CARDIAC DEFIBRILLATOR (13) Osteomyelitis Code(s): M86.9 - OSTEOMYELITIS, UNSPECIFIED Qualifiers: Osteomyelitis type: other Osteomyelitis location: foot Laterality: right Qualified Code(s): M86.8X7 - Other osteomyelitis, ankle and foot (14) Pericardial effusion Code(s): I31.3 - PERICARDIAL EFFUSION (NONINFLAMMATORY) (15) Status post peripheral artery angioplasty Code(s): Z98.62 - PERIPHERAL VASCULAR ANGIOPLASTY STATUS (16) Status post transmetatarsal amputation of right foot Code(s): Z89.431 - ACQUIRED ABSENCE OF RIGHT FOOT
--- NOTE | 2018-01-27 21:35 | DS ---
Physical Examination Vital Signs: Vital Signs Temperature 97.7 F 01/27/18 14:00 Pulse Rate 65 01/27/18 14:00 Respiratory Rate 17 01/27/18 14:00 Blood Pressure 104/59 L 01/27/18 14:00 O2 Sat by Pulse Oximetry (%) 97 01/27/18 09:00 Findings/Remarks: The patient is a 72M w/ a history of T2DM (iHG T,Th,Sa), CHF, colon ca s/p resection presenting w/ RLE swelling/edema for 1wk. S/p R TMA. Reports worsening RLE necrosis. Denies redness, purulent discharge, or increasing pain. Denies fevers/chills, chest pain, BUSTILLOS, vision changes, abdominal pain, N/V/C/D, Dr. Cope was scheduled to do R BKA on this admission. Two days post admission patient with episode of syncope / nausea / vomiting -- required NGT and workup revealed suggestion of SBO. Patient was treated conservatively - but without resolution. Most recent CT of abd / pelvis c/w worsening SBO. Arrangements for transfer to [place] initiated 01/20/18 / Insurance approval obtained and Bed became available 01/27/18. Patient remained in medical garay -hemodynamically stable for transfer. Patients medical hx at time of transfer # SBO NGT in place --with bilious drainage As of 01/25 on amino acids and lipids Ct of abd/ pelvs 01/25 --- SBO seems worse- colon largely collapsed / obstruction most likely distal ileal region / moderate amount of ascities still remains in some pain Currentlly attempting to transfer to await bed Cardio clearance done recently for TMA #osteomyelitis - vanco 1 gm on HD #hyponatremia #PVD s/p Previous RLE gangrene of toes 2-5 s/p amputation s/p right TMA 01/03/18 non healing will need BKA now on hold awaiting resolution of SBO PLavix on hold -- last dose day prior to admission #CKD5 on chronic HD (T/T/S) #DM on insulin / sliding scale - has not needed coverage # a fib heparin drip --PTT 35.7 Coumadin on hold #CAD #Cardiomyopathy s/p ICD #pericardial effusion moderate has been present >6monhs #hypothyroid #HF -- echo done last admission had cardiac clearance 01/01/18 #anemia of chronic disease on procrit Hgb 10.9 # hx of pericardial effusion -moderate / chronic >6 months # hx of colon ca s/p resection # hx of PE - on a/c # hx of pneumopericardium Constitutional: Yes: Mild Distress, Other (ngt IN PLACE) Eyes: Yes: Conjunctiva Clear HENT: Yes: Atraumatic, Normocephalic Neck: Yes: Trachea Midline Cardiovascular: Yes: Pulse Irregular Respiratory: Yes: Diminished, Rales Gastrointestinal: Yes: Distention, Hypoactive Bowel Sounds, Tenderness ...Rectal Exam: Yes: Deferred Renal/: Yes: Anuria Breast(s): Yes: WNL Musculoskeletal: Yes: WNL Extremities: Yes: Amputation (Right TMA) Peripheral Pulses WNL: Yes Wound/Incision: Yes: Dressing Dry and Intact Neurological: Yes: Alert, Oriented Psychiatric: Yes: Alert, Oriented Labs: CBC, BMP 01/27/18 11:30 01/27/18 11:30 Discharge Summary Reason For Visit: OPEN WOUND OF FOOT/DM/HYPERTENSION/ESRD Current Active Problems patient being transferred to [facility] for probable surgical intervention for persistent SBO Patients medical hx at time of transfer # SBO NGT in place --with bilious drainage As of 01/25 on amino acids and lipids Ct of abd/ pelvs 01/25 --- SBO seems worse- colon largely collapsed / obstruction most likely distal ileal region / moderate amount of ascities still remains in some pain Currentlly attempting to transfer to await bed Cardio clearance done recently for TMA #osteomyelitis - vanco 1 gm on HD #hyponatremia #PVD s/p Previous RLE gangrene of toes 2-5 s/p amputation s/p right TMA 01/03/18 non healing will need BKA now on hold awaiting resolution of SBO PLavix on hold -- last dose day prior to admission #CKD5 on chronic HD (T/T/S) #DM on insulin / sliding scale - has not needed coverage # a fib heparin drip --PTT 35.7 Coumadin on hold #CAD #Cardiomyopathy s/p ICD #pericardial effusion moderate has been present >6monhs #hypothyroid #HF -- echo done last admission had cardiac clearance 01/01/18 #anemia of chronic disease on procrit Hgb 10.9 # hx of pericardial effusion -moderate / chronic >6 months # hx of colon ca s/p resection # hx of PE - on a/c # hx of pneumopericardium Condition: Fair - Instructions Referrals: Olvin Cope MD [Primary Care Provider] - Rehana Schulte MD [Staff Physician] - Disposition: TRANSFER ACUTE CARE/OTHER HOSP - Home Medications Comprehensive Discharge Medication List: Ambulatory Orders Clopidogrel Bisulfate [Plavix -] 75 mg PO DAILY 09/11/17 Glucosamine Sulfate Dipot Chlr [Glucosamine] 500 mg PO DAILY 09/11/17 Levothyroxine [Synthroid -] 75 mcg PO DAILY 09/11/17 Melatonin 5 mg PO HS PRN 09/11/17 Oxycodone HCl/Acetaminophen [Percocet 5-325 mg Tablet] 1 tab PO Q8H PRN Sacubitril/Valsartan [Entresto 24 mg-26 mg Tablet] 1 each PO BID 09/11/17 Sennosides [Senna -] 2 tab PO HS 09/11/17 Thiamine HCl [B-1] 100 mg PO DAILY 09/11/17 Acetaminophen [Tylenol .Regular Strength -] 325 mg PO Q8H PRN tablet 09/18/17 Metoprolol Succinate [Toprol XL -] 12.5 mg PO DAILY tab.sr.24h 09/18/17 Sitagliptin Phosphate [Januvia -] 25 mg PO 0700 tab 09/18/17 Warfarin Na [Coumadin -] 6 mg PO DAILY@1800 tablet 09/18/17 Insulin Aspart [Novolog] 100 unit SQ BID 10/04/17 Latanoprost 0.005% Eye Drops [Xalatan 0.005% Eye Drops -] 1 drop HS 11/29/17 Vitamin B Comp W-C [Nephro-Fer -] 0.8 mg PO DAILY 11/29/17 Polyethylene Glycol 3350 [Miralax 119 gm Btl -] 17 gm PO BID 12/26/17 Clopidogrel Bisulfate [Plavix] 75 mg PO DAILY 30 Days #30 tablet 01/08/18 Hydromorphone HCl [Dilaudid] 8 mg PO 5XD PRN 7 Days #35 tablet MDD 5 tabs Melatonin 10 mg PO HS PRN tab 01/08/18 Mineral Oil/Petrolat,Wht/Water [Eucerin (Large Jar) -] 1 applic TP BID PRN jar 01/08/18 Vancomycin 1 Gram (Pre-Docked) [Vancomycin (Pre-Docked)] 1,000 mg IVPB TuThSa@ 1000 bag 01/08/18 Warfarin Sodium [Coumadin] 6 mg PO DAILY 30 Days #30 tablet 01/08/18 metroNIDAZOLE [Flagyl -] 500 mg PO TID tablet 01/08/18 At time of transfer patient NPO NGT to LCS on HD T// IV Vanco on HD IV heparin drip last PTT 35.7 patient on amino acids and lipids IV
[2018-01-27] MEDS: FAT EMULSIONS 250 ML IV SCH (21:59)
[2018-01-27] MEDS: LATANOPROST 0.005% OPHTH SOLN 2.5ML BOTTLE OD SCH (22:06)
== END 2018-01-27 22:10 | disposition short-term general hospital (02) | DRG 299 ==
LOC: JER 14:18 → JERBED 19:20 → J6S 21:43
PROVIDERS: ADMIT Family Medicine; ATTEND Family Medicine
PROC: 5A1D70Z Performance of Urinary Filtration, Intermittent, Less than 6 Hours Per Day (ICD-10-PCS; principal; 2018-01-27)
DX: E11.52 Type 2 diabetes mellitus with diabetic peripheral angiopathy with gangrene (principal); N18.6 End stage renal disease; E87.1 Hypo-osmolality and hyponatremia; M86.9 Osteomyelitis, unspecified; I42.9 Cardiomyopathy, unspecified; I31.3 Pericardial effusion (noninflammatory); I96 Gangrene, not elsewhere classified; I13.2 Hypertensive heart and chronic kidney disease with heart failure and with stage 5 chronic kidney disease, or end stage renal disease; E87.2 Acidosis; K56.7 Ileus, unspecified; K56.50 Intestinal adhesions [bands], unspecified as to partial versus complete obstruction; E11.69 Type 2 diabetes mellitus with other specified complication; I25.10 Atherosclerotic heart disease of native coronary artery without angina pectoris; E03.9 Hypothyroidism, unspecified; I48.2 Chronic atrial fibrillation; E11.22 Type 2 diabetes mellitus with diabetic chronic kidney disease; I95.9 Hypotension, unspecified; I50.9 Heart failure, unspecified; I25.5 Ischemic cardiomyopathy; D63.1 Anemia in chronic kidney disease
CPT/HCPCS: 36415; 36600; 70450-TC; 71045-TC-FY; 74018-TC-FY; 74019-TC-FY; 74176-TC; 80048; 80053; 82565; 82803; 82962; 83605; 83735; 83880; 84100; 84484; 84520; 85025; 85027; 85610; 85730; 86850; 86900; 86901; 93005; 93010; 99285-25; G0480; J0131; J0885; J1644; Q9967